=== PATIENT | female | born 1980 | race Hispanic/Latino ===

== ENCOUNTER 2018-01-14 09:06 | Emergency (ER) | payer OTHER ==
[2018-01-14] MEDS ORDERED: ACETAMINOPHEN 500 MG TAB ONE (10:26)
[2018-01-14] MEDS ORDERED: ONDANSETRON 4 MG (ODT) TAB ONE (10:26)
[2018-01-14 10:41] LABS: Urine Blood TRACE (NEG); Urine Glucose NEGATIVE (NEG); Urine Protein 1+ (NEG); Urine Specific Gravity 1.015 (1.005-1.030)
[2018-01-14 11:17] LABS: Urine Bacteria <20 /HPF (<20); Urine Culture Reflex Order REFLEXED
--- NOTE | 2018-01-14 11:20 | ER ---
Nurse's Notes [facility] Name: Aimee Randolph Age: 37 yrs Sex: Female : 1980 Arrival Date: 01/14/2018 Time: 09:08 Bed 14 Private MD: Diagnosis: Urinary tract infection, site not specified Presentation: 01/14 09:25 Presenting complaint: Patient states: fever, chills and body aches that began ss yesterday. Transition of care: patient was not received from another setting of care. Onset of symptoms was January 13, 2018. Care prior to arrival: None. 09:25 Method Of Arrival: Ambulatory ss 09:25 Acuity: LAURITA 4 ss Triage Assessment: 11:26 Pain: Also complains of. la1 Historical: - Allergies: : Ceclor; ss - Home Meds: : control [Active]; ss - PSHx: : (2013); Cholecystectomy(2011); Heart Surgery(1986); ss - Immunization history:: Adult Immunizations up to date. - Social history:: Smoking status: Patient/guardian denies using tobacco. Screenin:47 Abuse screen: Denies threats or abuse. Nutritional screening: No deficits noted. la1 Tuberculosis screening: No symptoms or risk factors identified. Fall Risk None identified. Assessment: 09:47 General: Appears uncomfortable, Behavior is calm, cooperative. Pain: Complains of pain la1 in forehead. Neuro: Level of Consciousness is awake, alert, obeys commands, Oriented to person, place, time, situation. Cardiovascular: Capillary refill < 3 seconds Patient's skin is warm and dry. Respiratory: Airway is patent Respiratory effort is even, unlabored, Respiratory pattern is regular, symmetrical. GI: No signs and/or symptoms were reported involving the gastrointestinal system. : No signs and/or symptoms were reported regarding the genitourinary system. Musculoskeletal: Reports body aches. 11:14 Reassessment: Patient appears in no apparent distress at this time. No changes from la1 previously documented assessment. Patient and/or family updated on plan of care and expected duration. Pain level reassessed. Vital Signs: : BP 122 / 85; Pulse 105; Resp 16; Temp 99.1(TE); Pulse Ox 97% on R/A; Weight 88.45 kg; ss Height 5 ft. 0 in. (152.40 cm); Pain 9/10; 11:26 BP 124 / 75; Pulse 91; Resp 16; Temp 98.4(TE); Pulse Ox 100% on R/A; la1 09:26 Body Mass Index 38.08 (88.45 kg, 152.40 cm) ED Course: 09:08 Patient arrived in ED. tw3 09:26 Triage completed. ss 09:26 Arm band placed on right wrist. ss 09:46 Panchito Winston RN is Primary Nurse. la1 09:47 Call light in reach. la1 10:11 Timoteo Pepper PA is PHCP. cp 10:11 Zhang Pollard MD is Attending Physician. cp 11:26 No provider procedures requiring assistance completed. Patient did not have IV access la1 during this emergency room visit. Administered Medications: 10:28 Drug: Tylenol 1000 mg Route: PO; la1 10:43 Follow up: Response: No adverse reaction la1 10:28 Drug: Zofran 4 mg Route: PO; la1 10:43 Follow up: Response: No adverse reaction la1 Outcome: 11:20 Discharge ordered by MD. cp 11:27 Discharged to home ambulatory. la1 11:27 Condition: stable 11:27 Discharge instructions given to patient, Instructed on discharge instructions, follow up and referral plans. Demonstrated understanding of instructions, follow-up care, medications, Prescriptions given X 2. 11:27 Patient left the ED. la1 Signatures: Leeanna Sullivan RN RN Panchito Winston RN RN la1 Timoteo Pepper PA PA cp Wade, Tia tw3
--- NOTE | 2018-01-14 11:20 | EDPHYS ---
Physician Documentation [facility] Name: Aimee Randolph Age: 37 yrs Sex: Female : 1980 Arrival Date: 01/14/2018 Time: 09:08 Bed 14 Private MD: ED Physician Zhang Pollard HPI: 01/14 10:19 This 37 yrs old Female presents to ER via Ambulatory with complaints of Fever, cp Headache. 10:19 The patient reports fever, that was measured at 101 degrees Fahrenheit. Onset: The cp symptoms/episode began/occurred yesterday. Associated signs and symptoms: Pertinent positives: backache, chills, headache, nausea, vomiting, body aches. Severity of symptoms: in the emergency department the symptoms are unchanged despite home interventions. Historical: - Allergies: 09: Ceclor; ss - Home Meds: 09: control [Active]; ss - PSHx: 09:26 (2013); Cholecystectomy(2011); Heart Surgery(1986); ss - Immunization history:: Adult Immunizations up to date. - Social history:: Smoking status: Patient/guardian denies using tobacco. ROS: 10:26 Eyes: Negative for injury, pain, redness, and discharge. cp 10:26 Constitutional: Positive for body aches, chills, Negative for fever, poor PO intake. 10:26 ENT: Negative for drainage from ear(s), ear pain, sore throat, difficulty swallowing, difficulty handling secretions. 10:26 Neck: Negative for pain with movement, pain at rest, stiffness, swollen nodes. 10:26 Cardiovascular: Negative for chest pain, edema, palpitations. 10:26 Respiratory: Negative for cough, shortness of breath, wheezing. 10:26 Abdomen/GI: Positive for nausea and vomiting, Negative for abdominal pain, diarrhea, constipation, anorexia. 10:26 Back: Positive for flank pain, bilaterally. 10:26 : Positive for urinary frequency, Negative for vaginal bleeding, vaginal discharge. 10:26 Skin: Negative for cellulitis, rash. 10:26 Neuro: Positive for headache, Negative for altered mental status, dizziness, weakness. 10:26 All other systems are negative. Exam: 10:30 Constitutional: The patient appears in no acute distress, alert, awake, non-toxic, well cp developed, well nourished, uncomfortable. 10:30 Head/Face: Normocephalic, atraumatic. cp 10:30 Eyes: Periorbital structures: appear normal, Pupils: equal, round, and reactive to light and accomodation, Extraocular movements: intact throughout, Conjunctiva: normal, no exudate, no injection, Sclera: no appreciated abnormality, Lids and lashes: appear normal, bilaterally. 10:30 ENT: External ear(s): are unremarkable, Ear canal(s): are normal, clear, TM's: dullness, bilaterally, Nose: is normal, Mouth: Lips: moist, Oral mucosa: pink and intact, moist, Posterior pharynx: is normal, airway is patent, no erythema, no exudate, Voice: is normal. 10:30 Neck: External neck: is normal, ROM/movement: is normal, is supple, without pain, no range of motions limitations, no meningismus, no nuchal rigidity, Lymph nodes: no appreciated lymphadenopathy. 10:30 Chest/axilla: Inspection: normal, Palpation: is normal, no crepitus, no tenderness. 10:30 Cardiovascular: Rate: tachycardic, Rhythm: regular. 10:30 Respiratory: the patient does not display signs of respiratory distress, Respirations: normal, no use of accessory muscles, no retractions, no splinting, no tachypnea, labored breathing, is not present, Breath sounds: are clear throughout, no decreased breath sounds, no stridor, no wheezing. 10:30 Abdomen/GI: Inspection: abdomen appears normal, Bowel sounds: active, all quadrants, Palpation: abdomen is soft and non-tender, in all quadrants, rebound tenderness, is not appreciated, voluntary guarding, is not appreciated, involuntary guarding, is not appreciated. 10:30 Back: CVA tenderness, that is mild, is noted bilaterally. 10:30 Skin: cellulitis, is not appreciated, no rash present. 10:30 Neuro: Orientation: to person, place \T\ time. Mentation: is normal, Motor: moves all fours, strength is normal, Sensation: no obvious gross deficits. Vital Signs: 09:26 BP 122 / 85; Pulse 105; Resp 16; Temp 99.1(TE); Pulse Ox 97% on R/A; Weight 88.45 kg; ss Height 5 ft. 0 in. (152.40 cm); Pain 9/10; 11:26 BP 124 / 75; Pulse 91; Resp 16; Temp 98.4(TE); Pulse Ox 100% on R/A; la1 09:26 Body Mass Index 38.08 (88.45 kg, 152.40 cm) MDM: 10:12 Patient medically screened. cp 10:30 Differential diagnosis: URI, bronchitis, pneumonia UTI, gastroenteritis, meningitis, cp influenza. 11:19 Data reviewed: vital signs, nurses notes, lab test result(s), and as a result, I will cp discharge patient. 11:19 Counseling: I had a detailed discussion with the patient and/or guardian regarding: the cp historical points, exam findings, and any diagnostic results supporting the discharge/admit diagnosis, lab results, the need for outpatient follow up, a family practitioner, to return to the emergency department if symptoms worsen or persist or if there are any questions or concerns that arise at home. 11:19 Response to treatment: the patient's symptoms have mildly improved after treatment, and cp as a result, I will discharge patient. 01/14 09:46 Order name: Flu; Complete Time: 10:46 la1 01/14 10:25 Order name: Urine Microscopic Only; Complete Time: 11:19 ss 01/14 11:19 Interpretation: Normal except: UWBC >50; URBC 5-10. cp 01/14 10:38 Order name: Urine Dipstick--Ancillary (enter results); Complete Time: 10:46 ag 01/14 10:46 Interpretation: Normal except: UBLD TRACE; UPROT 1+; UESTR 1+. cp 01/14 10:38 Order name: Urine --Ancillary (enter results); Complete Time: 10:46 ag 01/14 10:46 Interpretation: Reviewed. cp 01/14 11:18 Order name: Urine Culture EDMS 01/14 10:12 Order name: Urine Dipstick-Ancillary (obtain specimen); Complete Time: 10:30 cp 01/14 10:12 Order name: Urine Test (obtain specimen); Complete Time: 10:30 cp 01/14 10:18 Order name: PO challenge; Complete Time: 10:28 cp Administered Medications: 10:28 Drug: Tylenol 1000 mg Route: PO; la1 10:43 Follow up: Response: No adverse reaction la1 10:28 Drug: Zofran 4 mg Route: PO; la1 10:43 Follow up: Response: No adverse reaction la1 Disposition: 13:56 Co-signature as Attending Physician, Zhang Pollard MD I agree with the assessment and kdr plan of care. Disposition: 01/14/18 11:20 Discharged to Home. Impression: Urinary tract infection, site not specified. - Condition is Stable. - Discharge Instructions: Urinary Tract Infection. - Prescriptions for Zofran ODT 4 mg Oral tablet,disintegrating - take 1 tablet by ORAL route every 8-12 hours; 10 tablet. Bactrim DS 800- 160 mg Oral Tablet - take 1 tablet by ORAL route every 12 hours for 7 days; 14 tablet. - Medication Reconciliation Form, Thank You Letter, Antibiotic Education, Prescription Opioid Use form. - Follow up: Private Physician; When: 1 - 2 days; Reason: Recheck today's complaints. - Problem is new. - Symptoms have improved. Signatures: Dispatcher [employer] EDOK Zhang Pollard MD MD [facility] Leeanna Sullivan RN RN Panchito Winston RN RN la1 Timoteo Pepper PA PA cp
[2018-01-14 11:33] VITALS: BP 124/75; TEMP 98.4; O2SAT 100
== END 2018-01-14 11:27 | disposition home or self-care (01) ==
LOC: ER 09:06
DX: R50.9 Fever, unspecified (principal); N39.0 Urinary tract infection, site not specified; Z88.1 Allergy status to other antibiotic agents
CPT/HCPCS: 81003; 81015; 81025; 87077; 87086; 87088; 87186; 87804; 99283

== ENCOUNTER 2018-01-14 17:47 | Inpatient (IN) | payer OTHER ==
[2018-01-14] MEDS ORDERED: ONDANSETRON 4 MG/2 ML VIAL ONE (18:07)
[2018-01-14] MEDS ORDERED: ACETAMINOPHEN 500 MG TAB ONE (18:07)
[2018-01-14] MEDS ORDERED: MORPHINE 10 MG/ML VIAL ONE ×2 (18:07→20:19)
[2018-01-14] MEDS ORDERED: NA CHLORIDE 0.9% 1,000 ML ONE (18:07)
[2018-01-14 18:18] LABS: Absolute Lymphocytes (CBC) 0.4 K/uL (0.7-4.9); Absolute Monocytes 0.2 K/uL (0.1-1.3); Basophils % 0.2 % (0-1.3); Eosinophils % 0.5 % (0-4.4); Hematocrit 38.4 % (36.0-45.0); Lymphocytes % 3.6 % (15.3-44.8); MCH 28.9 pg (27.0-35.0); MCV 84.8 fL (80-100); MPV 7.7 fL (7.6-11.3); Monocytes % 1.5 % (3.3-12.3); RBC Red Blood Cell Count 4.53 M/uL (3.86-4.86)
[2018-01-14 18:25] LABS: Potassium 3.6 mEq/L (3.6-5.0)
[2018-01-14 18:31] LABS: Bilirubin Direct 0.2 mg/dL (0-0.2); Protein, Total 7.2 g/dL (6.0-8.3)
--- NOTE | 2018-01-14 18:34 | RAD REPORT ---
EXAM DESCRIPTION: CT - Stone Protocol - 01/14/2018 6:24 pm CLINICAL HISTORY: Abdominal pain, pelvic pain, urinary tract infection, right lower quadrant and fla nk pain COMPARISON: CT study November 2008 TECHNIQUE: Axial 5 mm thick images were obtained without oral or IV contrast. The [id number] span s the entirety of the system partially obscuring uppermost abdomen and lung bases. All CT scans are performed using dose optimization technique as appropriate and may include automated exposure control or mA/KV adjustment according to patient size. FINDINGS: No hydronephrosis. No obstructing or nonobstructing calculi. There is a subtle edema appea mariposa to the right kidney with trace stranding in the perinephric fat. Given the patient's symptoms, finding is concerning for pyelonephritis. Pyelonephritis is not fully assessed on noncontrast imaging . No suspicious renal mass. Isodense masses are not excluded on stone protocol study. Mostly contract ed urinary bladder shows no suspicious finding. No new uterine finding. Ovaries are prominent but unc hanged back to 2008. Imaged portions of the liver, spleen and pancreas show no suspicious findings on non-contrast imaging . Cholecystectomy clips are present. No biliary tree dilatation. No significant adrenal finding. No suspicious bowel findings. The appendix is identified and normal. No hernia, mass or bulky lymphadenopathy noted. No free air, free fluid or inflammatory stranding. No significant bony abnormality. IMPRESSION: Right renal parenchymal edema and trace perinephric stranding suspicious for pyelonephri tis. Pyelonephritis assessment is limited in the absence of contrast. No hydronephrosis or obstructing calculus. No other significant or suspicious finding noted. Full findings are detailed in the body of the repor t.
[2018-01-14 19:00] LABS: Blood Morphology Comment NOT SEEN (NOT SEEN); Platelet Estimate ADEQ; Urine White Blood Cell Casts OK
[2018-01-14] MEDS ORDERED: CIPROFLOXACIN 400mg IV 400 MG/200 ML BAG IV ONE (19:03)
--- NOTE | 2018-01-14 20:26 | EDPHYS ---
Physician Documentation [facility] Name: Aimee Randolph Age: 37 yrs Sex: Female : 1980 Arrival Date: 01/14/2018 Time: 17:50 Bed 15 Private MD: ED Physician Zhang Pollard HPI: 01/14 18:08 This 37 yrs old Female presents to ER via EMS with complaints of Flank Pain. cp Historical: - Allergies: 17:53 Ceclor; la1 - PMHx: 17:53 None; la1 - Immunization history:: Adult Immunizations up to date. - Social history:: Smoking status: Patient/guardian denies using tobacco. ROS: 18:15 Constitutional: Positive for body aches, chills, fever. cp 18:15 Eyes: Negative for injury, pain, redness, and discharge. cp 18:15 ENT: Negative for drainage from ear(s), ear pain, sore throat, difficulty swallowing, difficulty handling secretions. 18:15 Neck: Negative for pain with movement, pain at rest, stiffness, swollen nodes. 18:15 Cardiovascular: Negative for chest pain, edema. 18:15 Respiratory: Negative for cough, shortness of breath, wheezing. 18:15 Abdomen/GI: Positive for abdominal pain, nausea and vomiting, Negative for diarrhea, constipation, black/tarry stool, rectal bleeding. 18:15 Back: Positive for flank pain, bilaterally. 18:15 : Positive for urinary frequency. 18:15 Skin: Negative for cellulitis, rash. 18:15 Neuro: Negative for altered mental status, weakness. 18:15 All other systems are negative. Exam: 18:25 Constitutional: The patient appears alert, awake, non-diaphoretic, well developed, well cp nourished, uncomfortable, appears ill 18:25 Head/Face: Normocephalic, atraumatic. cp 18:25 Eyes: Periorbital structures: appear normal, Pupils: equal, round, and reactive to light and accomodation, Extraocular movements: intact throughout, Conjunctiva: normal, no exudate, no injection, Sclera: no appreciated abnormality, Lids and lashes: appear normal, bilaterally. 18:25 ENT: External ear(s): are unremarkable, Ear canal(s): are normal, clear, TM's: bulging, is not appreciated, bilaterally, dullness, bilaterally, erythema, is not appreciated, bilaterally, Nose: is normal, Mouth: Lips: moist, Oral mucosa: moist, Posterior pharynx: is normal, airway is patent, no erythema, no exudate. 18:25 Neck: ROM/movement: is normal, is supple, no range of motions limitations, no meningismus, no nuchal rigidity. 18:25 Chest/axilla: Inspection: normal, Palpation: is normal, no crepitus, no tenderness. 18:25 Cardiovascular: Rate: tachycardic, Rhythm: regular, Edema: is not appreciated. 18:25 Respiratory: the patient does not display signs of respiratory distress, Respirations: normal, no use of accessory muscles, no retractions, no splinting, no tachypnea, labored breathing, is not present, Breath sounds: are clear throughout, no decreased breath sounds, no stridor, no wheezing. 18:25 Abdomen/GI: Inspection: abdomen appears normal, Bowel sounds: active, all quadrants, Palpation: soft, in all quadrants, moderate abdominal tenderness, in all quadrants. 18:25 Back: CVA tenderness, that is severe, is noted on the right. 18:25 Skin: cellulitis, is not appreciated, no rash present. 18:25 Neuro: Orientation: to person, place \T\ time. Mentation: lucid, able to follow commands, Cerebellar function: is grossly normal, Motor: moves all fours, strength is normal, Sensation: no obvious gross deficits. Vital Signs: 17:51 BP 139 / 78; Pulse 123; Resp 19; Temp 101.8(TE); Pulse Ox 100% on R/A; Weight 88.45 kg; la1 Height 5 ft. 0 in. (152.40 cm); 18:41 BP 118 / 59; Pulse 106; Resp 19; Pulse Ox 100% on R/A; la1 19:05 Temp 100(TE); la1 20:36 BP 104 / 48; Pulse 80; Resp 16; Temp 98.9; Pulse Ox 98% ; Pain 3/10; ag2 21:00 BP 104 / 48; Pulse 80; Resp 16; Pulse Ox 6% ; ag2 21:01 Temp 98.9; ag2 21:11 BP 119 / 61; Pulse 85; Resp 18 S; Pulse Ox 99% on R/A; ea 17:51 Body Mass Index 38.08 (88.45 kg, 152.40 cm) la1 MDM: 17:51 Patient medically screened. cp 20:05 Data reviewed: vital signs, nurses notes, lab test result(s), radiologic studies, CT cp scan. 20:09 Physician consultation: Davonte Walker MD was contacted at 20:10, regarding admission, cp to the medical/surgical unit. patient's condition, and will see patient in ED, shortly. 01/14 17:55 Order name: Amylase, Serum; Complete Time: 18:44 cp 01/14 17:55 Order name: Basic Metabolic Panel; Complete Time: 18:44 cp 01/14 17:55 Order name: CBC with Diff; Complete Time: 19:58 cp 01/14 18:45 Interpretation: Normal except: HELGA% 94.2; LYM% 3.6; MN% 1.5; NEUT A 10.0; LYMA 0.4. cp 01/14 17:55 Order name: Creatinine for Radiology; Complete Time: 18:44 cp 01/14 17:55 Order name: Hepatic Function; Complete Time: 18:44 cp 01/14 17:55 Order name: Lipase; Complete Time: 18:44 cp 01/14 17:55 Order name: Urine Microscopic Only; Complete Time: 21:51 cp 01/14 21:52 Interpretation: Normal except: UWBC 20-50; GLIT PRESENT; TRICH PRESENT. cp 01/14 18:05 Order name: Lactate; Complete Time: 18:47 cp 01/14 18:47 Interpretation: LAC 11.2; Reviewed. cp 01/14 18:05 Order name: Procalcitonin; Complete Time: 21:51 cp 01/14 21:52 Interpretation: Abnormal: Procalcitonin 2.06. cp 01/14 18:05 Order name: Blood Culture Adult (2) cp 01/14 18:05 Order name: Magnesium; Complete Time: 19:58 cp 01/14 18:26 Order name: CBC Smear Scan; Complete Time: 19:58 EDMS 01/14 20:46 Order name: Urine Dipstick--Ancillary (enter results); Complete Time: 21:51 rg2 01/14 21:52 Interpretation: Normal except: UBLD 2+; UESTR 1+. cp 01/14 20:46 Order name: Urine --Ancillary (enter results); Complete Time: 21:51 rg2 01/14 17:55 Order name: IV Saline Lock; Complete Time: 18:16 cp 01/14 17:55 Order name: Labs collected and sent; Complete Time: 18:16 cp 01/14 18:05 Order name: CT Stone Protocol; Complete Time: 18:44 cp Administered Medications: 18:15 Drug: morphine 4 mg Route: IVP; Site: left antecubital; la1 21:54 Follow up: Response: No adverse reaction; Pain is decreased ea 18:16 Drug: NS 0.9% (30 ml/kg) 30 ml/kg Route: IV; Rate: bolus; Site: left antecubital; la1 21:55 Follow up: Response: No adverse reaction; IV Status: Completed infusion ea 18:16 Drug: Zofran 4 mg Route: IVP; Site: right antecubital; la1 21:55 Follow up: Response: No adverse reaction; Marked relief of symptoms ea 18:16 Drug: Tylenol 1000 mg Route: PO; la1 21:01 Follow up: Temp 98.9 ag2 19:09 Drug: Ciprofloxacin 400 mg Volume: 200 ml; Route: IVPB; Infused Over: 60 mins; Site: la1 left antecubital; 21:55 Follow up: Response: No adverse reaction; IV Status: Completed infusion; IV Intake: ea 200ml 20:31 Drug: morphine 4 mg Route: IVP; Site: left antecubital; ag2 21:00 Follow up: BP 104 / 48; Pulse 80 bpm; Resp 16 bpm; Pulse Ox 6% ag2 Disposition: 23:30 Co-signature as Attending Physician, Zhang Pollard MD I agree with the assessment and kdr plan of care. Disposition: 01/14/18 20:25 Hospitalization ordered by Davonte Walker for Inpatient Admission. Preliminary diagnosis are Other sepsis, Cystitis, unspecified. - Bed requested for Telemetry/MedSurg (Inpatient). - Status is Inpatient Admission. ea - Condition is Stable. - Problem is new. - Symptoms have improved. UTI on Admission? Yes Signatures: Dispatcher [employer] EDMS Zhang Pollard MD MD kdr Roszak, Josh, PA PA jr8 Panchito Winston RN RN la1 Timoteo Pepper PA PA cp Marilu Askew, RN RN Mercedes Olivas ag2 Corrections: (The following items were deleted from the chart) 18:45 18:44 Normal except: HELGA% 94.2; LYM% 3.6; MN% 1.5; NEUT A 10.0. cp cp
--- NOTE | 2018-01-14 20:26 | ER ---
Nurse's Notes [facility] Name: Aimee Randolph Age: 37 yrs Sex: Female : 1980 Arrival Date: 01/14/2018 Time: 17:50 Bed 15 Private MD: Diagnosis: Other sepsis;Cystitis, unspecified Presentation: 01/14 17:50 Presenting complaint: Patient states: Seen here this morning, dx with UTI, now having la1 pain in right lower back, fever, and pain radiating to lower abd. Transition of care: patient was not received from another setting of care. Onset of symptoms was January 14, 2018. Care prior to arrival: None. 17:50 Method Of Arrival: EMS: [facility] la1 17:50 Acuity: LAURITA 3 la1 Historical: - Allergies: 17:53 Ceclor; la1 - PMHx: 17:53 None; la1 - Immunization history:: Adult Immunizations up to date. - Social history:: Smoking status: Patient/guardian denies using tobacco. Screenin:41 Abuse screen: Denies threats or abuse. Nutritional screening: No deficits noted. la1 Tuberculosis screening: No symptoms or risk factors identified. Fall Risk None identified. Assessment: 18:39 General: Appears uncomfortable, ill, Behavior is cooperative. Pain: Complains of pain la1 in posterior aspect of right lateral abdomen and anterior aspect of right lateral abdomen Pain currently is 8 out of 10 on a pain scale. Quality of pain is described as sharp. Neuro: Level of Consciousness is awake, alert, obeys commands, Oriented to person, place, time, situation. Cardiovascular: Capillary refill < 3 seconds Patient's skin is warm and dry. Respiratory: Airway is patent Respiratory effort is even, unlabored, Respiratory pattern is regular, symmetrical, Breath sounds are clear bilaterally. GI: Abdomen is round non-distended, Bowel sounds present X 4 quads. Abd is soft X 4 quads Abdomen is tender to palpation in right upper quadrant and right lower quadrant Reports nausea, Patient currently denies diarrhea, vomiting. : No signs and/or symptoms were reported regarding the genitourinary system. 19:33 General: Appears uncomfortable, Behavior is cooperative, flat. Pain: Complains of pain ag2 in Right upper and lower abdominal quadrants. Anterior and posterior abdomin. Pain currently is 7 out of 10 on a pain scale. Quality of pain is described as aching, sharp. Neuro: Level of Consciousness is awake, alert, obeys commands, Oriented to person, place, time, situation. Cardiovascular: Heart tones S1 S2 present Capillary refill < 3 seconds Patient's skin is warm and dry. Respiratory: Airway Respiratory effort is even, unlabored, Respiratory pattern is regular, symmetrical, diminished breath sounds bilateral lower lung lobes Breath sounds are diminished bilaterally. in left lower lobe, right lower lobe, left posterior lower lobe and right posterior lower lobe. : No signs and/or symptoms were reported regarding the genitourinary system. 20:29 Reassessment: Patient stated that her pain is going up. 06/11. Orders received morphine. ag2 medication given timely. Patient A\T\OX4. Mother at bedside. bed low and locked. call light within reach. . 20:41 Reassessment: Patient is laying in bed with eyes closed. breathing even and unlabored. ag2 call light within reach. family at bedside. . 20:58 Reassessment: Dr. Apodaca visiting with patient and family. Patient stated she is ag2 nauseous. PO challenge okay to hold per doctor Apodaca. . 21:22 Reassessment:. ag2 21:42 Reassessment: Report given to Consuelo CELESTE on fourth floor. ea Vital Signs: 17:51 BP 139 / 78; Pulse 123; Resp 19; Temp 101.8(TE); Pulse Ox 100% on R/A; Weight 88.45 kg; la1 Height 5 ft. 0 in. (152.40 cm); 18:41 BP 118 / 59; Pulse 106; Resp 19; Pulse Ox 100% on R/A; la1 19:05 Temp 100(TE); la1 20:36 BP 104 / 48; Pulse 80; Resp 16; Temp 98.9; Pulse Ox 98% ; Pain 3/10; ag2 21:00 BP 104 / 48; Pulse 80; Resp 16; Pulse Ox 6% ; ag2 21:01 Temp 98.9; ag2 21:11 BP 119 / 61; Pulse 85; Resp 18 S; Pulse Ox 99% on R/A; ea 17:51 Body Mass Index 38.08 (88.45 kg, 152.40 cm) la1 ED Course: 17:50 Patient arrived in ED. la1 17:50 Timoteo Pepper PA is PHCP. cp 17:50 Zhang Pollard MD is Attending Physician. cp 17:51 Triage completed. la1 17:52 Arm band placed on left wrist. la1 18:15 Panchito Winston, RN is Primary Nurse. la1 18:17 No provider procedures requiring assistance completed. Inserted saline lock: 20 gauge la1 in left antecubital area, using aseptic technique. Blood collected. 18:24 CT Stone Protocol In Process Unspecified. EDMS 18:40 Call light in reach. Side rails up X 1. Pulse ox on. NIBP on. la1 20:23 Davonte Walker MD is Hospitalizing Provider. cp 21:57 Patient admitted, IV remains in place. ea Administered Medications: 18:15 Drug: morphine 4 mg Route: IVP; Site: left antecubital; la1 21:54 Follow up: Response: No adverse reaction; Pain is decreased ea 18:16 Drug: NS 0.9% (30 ml/kg) 30 ml/kg Route: IV; Rate: bolus; Site: left antecubital; la1 21:55 Follow up: Response: No adverse reaction; IV Status: Completed infusion ea 18:16 Drug: Zofran 4 mg Route: IVP; Site: right antecubital; la1 21:55 Follow up: Response: No adverse reaction; Marked relief of symptoms ea 18:16 Drug: Tylenol 1000 mg Route: PO; la1 21:01 Follow up: Temp 98.9 ag2 19:09 Drug: Ciprofloxacin 400 mg Volume: 200 ml; Route: IVPB; Infused Over: 60 mins; Site: la1 left antecubital; 21:55 Follow up: Response: No adverse reaction; IV Status: Completed infusion; IV Intake: ea 200ml 20:31 Drug: morphine 4 mg Route: IVP; Site: left antecubital; ag2 21:00 Follow up: BP 104 / 48; Pulse 80 bpm; Resp 16 bpm; Pulse Ox 6% ag2 Intake: 21:55 IV: 200ml; Total: 200ml. ea Outcome: 20:25 Decision to Hospitalize by Provider. cp 21:56 Admitted to Med/surg accompanied by tech, room 426, with chart, Report called to Consuelo anand RN 21:56 Condition: stable 21:56 Instructed on the need for admit. 21:57 Patient left the ED. kika Signatures: Dispatcher [employer] EDMS Panchito Winston RN RN la1 Timoteo Pepper PA PA cp Antunez, Elena, RN RN ea Garcia, Athena ag2 Corrections: (The following items were deleted from the chart) 20:40 20:33 BP 168 / 87; Pulse 78bpm; Resp 20bpm; Pulse Ox 99%; Temp 98.7F; Pain 2/10; ag2 ag2 21:23 19:33 GI: Abdomen is round non-distended, Bowel sounds present X 4 quads. Abd is soft ag2 Abdomen is tender to palpation in posterior aspect of right lateral abdomen, anterior aspect of right lateral abdomen, right upper quadrant and right lower quadrant Reports Patient reports right sided abdominal pain. Patient currently denies diarrhea, vomiting, ag2
[2018-01-14 20:58] LABS: Urine Blood 2+ (NEG); Urine Glucose NEGATIVE (NEG); Urine Protein NEGATIVE (NEG)
[2018-01-14 21:02] LABS: Urine RBC <5 /HPF (NONE SEEN)
[2018-01-14 21:03] LABS: Urine Bacteria <20 /HPF (<20); Urine Trichomonas PRESENT (NONE SEEN)
[2018-01-14 21:09] LABS: Urine Culture Reflex Order NOT NEEDED
--- NOTE | 2018-01-14 21:09 | P.HP ---
Certification for Inpatient Patient admitted to: Inpatient With expected LOS: >2 Midnights Practitioner: I am a practitioner with admitting privileges, knowledge of patient current condition, hospital course, and medical plan of care. 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 Since yesterday she start with nausea, right flank pain and fever. This morning came to ED and was diagnosed with UTI, since her lab work was mostly unremarkable and she was hemodynamically stable was sent home with oral antibiotics. However, at home she had severe pain, had chills and fever 101.7F, and came again to ED for further evaluation. Lab work remarkable for normal WBC count, lactate normal, procalcitonin is still pending , UA abnormal, CT abdomen and pelvis consistent with right acute pyelonephritis , no hydronephrosis or obstructing calculus seen. Allergies cefaclor [From Ceclor] Allergy (Mild, Verified 04/08/14 05:03) Shortness of breath Home Medications: Ferrous Sulfate [Iron] 325 mg PO BID 02/07/16 Codeine/APAP [Tylenol W/Codeine #3 tab] 1 tab PO Q6HP PRN #30 tab 02/18/16 - Past Medical/Surgical History Diabetic: No -: valval deffect by -: Heart Surgery 1985 -: Ava 2006 -: - Family History Father -: Heart disease, Hypertension, Diabetes Mother -: Heart disease, Hypertension, Diabetes - Social History Smoking Status: Never smoker Alcohol use: No CD- Drugs: No Caffeine use: No Place of Residence: Home Review of Systems 10-point ROS is otherwise unremarkable Physical Examination - Physical Exam General: Alert, In no apparent distress HEENT: Atraumatic, PERRLA, Mucous membr. moist/pink, EOMI, Sclerae nonicteric Neck: Supple, 2+ carotid pulse no bruit, No LAD, Without JVD or thyroid abnormality Respiratory: Clear to auscultation bilaterally, Normal air movement Cardiovascular: Regular rate/rhythm, Normal S1 S2 Gastrointestinal: Normal bowel sounds, Tenderness (right flank) Musculoskeletal: No tenderness Integumentary: No rashes Neurological: Normal speech, Normal strength at 5/5 x4 extr, Normal tone, Normal affect Lymphatics: No axilla or inguinal lymphadenopathy - Studies Laboratory Data (last 24 hrs) 01/14/18 18:03: Magnesium 1.8 01/14/18 18:03: Creatinine 0.72 01/14/18 18:03: WBC 10.6, Hgb 13.1, Hct 38.4, Plt Count 166 01/14/18 18:03: Sodium 136, Potassium 3.6, BUN 12, Creatinine 0.75, Glucose 110 , Total Bilirubin 1.0, AST 14, ALT 13, Alkaline Phosphatase 61, Amylase 41, Lipase 22 Assessment and Plan - Problems (Diagnosis) (1) Acute pyelonephritis Current Visit: Yes Status: Acute - Plan Ms Randolph will be admitted to the hospital due to acute pyelonephritis, failed outpatient therapy. Will order IV Levaquin, urine and blood cultures in process. Order Toradol for pain. - Advance Directives Does patient have a Living Will: No Does patient have a Durable POA for Healthcare: No - Code Status/Comfort Care Code Status Assessed: Yes Code Status: Full Code
[2018-01-14] MEDS: NA CHLORIDE 0.9% 1,000 ML IV SCH (22:27)
[2018-01-14] MEDS: ONDANSETRON 4 MG/2 ML VIAL IV PRN (23:36)
[2018-01-15 04:51] LABS: Absolute Lymphocytes (CBC) 0.7 K/uL (0.7-4.9); Absolute Monocytes 0.8 K/uL (0.1-1.3); Absolute Neutrophil 7.2 K/uL (1.8-8.0); Basophils % 0.3 % (0-1.3); Eosinophils % 0.5 % (0-4.4); Hematocrit 35.3 % (36.0-45.0); Lymphocytes % 8.4 % (15.3-44.8); MCH 28.7 pg (27.0-35.0); MCV 87.1 fL (80-100); Monocytes % 8.7 % (3.3-12.3); RBC Red Blood Cell Count 4.05 M/uL (3.86-4.86)
[2018-01-15 05:35] LABS: BUN Blood Urea Nitrogen 9 mg/dL (6-20); Bicarbonate 23 mEq/L (21-31); Glucose Level 120 mg/dL (65-120); Potassium 4.5 mEq/L (3.6-5.0); Sodium Level 138 mEq/L (135-145)
[2018-01-15] MEDS: NA CHLORIDE 0.9% 1,000 ML IV SCH ×2 (05:40→17:01)
[2018-01-15] MEDS: ACETAMINOPHEN 500 MG TAB PO PRN ×3 (05:42→19:58)
[2018-01-15] MEDS: Levofloxacin500mg IV 500 MG/100 ML BAG IV SCH (08:04)
[2018-01-15] MEDS: ENOXAPARIN 40 MG/0.4 ML SQ SCH (08:04)
[2018-01-15] MEDS ORDERED: metroNIDAZOLE 500 MG TABLET PO ONE (09:00)
[2018-01-15] MEDS: ONDANSETRON 4 MG/2 ML VIAL IV PRN ×2 (09:41→17:01)
[2018-01-15] MEDS: KETOROLAC 30 MG/ML INJ IV PRN ×2 (09:41→17:02)
--- NOTE | 2018-01-15 12:02 | PN ---
Date of Progress Note: 01/15/2018 Subjective: The patient seen and examined, chart reviewed, and case discussed with RN. The patient states that, she is still having some discomfort and flank pain. Otherwise, feeling better. Review of Systems: Negative except as above. Medications: Reviewed. Physical Examination: Vital Signs: Temperature 97.4, heart rate 60, blood pressure 114/52, respirations 20, and O2 98% on room air. General: Awake, alert, oriented x3, obese female, in some mild distress. CV: S1, S2. Regular rate and rhythm. Peripheral pulses present. No murmurs. Respiratory: Clear to auscultation bilaterally. No wheezing. No stridor. Gastrointestinal: Abdomen is soft, nontender, nondistended. Positive bowel sounds. No guarding or rigidity. Back: Right flank pain. Extremities: No clubbing, cyanosis, edema. Neurologic: Nonfocal. Laboratory Data: Sodium 138, potassium 4.5, chloride 110, CO2 22, BUN 9, creatinine 0.63, glucose 120, calcium 7.9, and magnesium 2. WBC 8.8, H and H 11.6, 35.3, and platelets 140. Blood cultures pending. CT abdomen and pelvis shows right renal parenchymal edema and trace perinephric stranding, suspicious for pyelonephritis. No hydronephrosis or obstructing calculus. Assessment: A 37-year-old female with; 1. Acute pyelonephritis. We will continue with IV fluids and IV antibiotics. Follow up on urine and blood cultures. Pain control. 2. Trichomoniasis. The patient was informed of her diagnosis. She was informed that her sexual partner or partners need to be treated. We will give 2 g of Flagyl p.o. x1. 3. Obesity, body mass index 39. Counseled. 4. Gastrointestinal and deep venous thrombosis prophylaxis with PPI and Lovenox. 5. sepsis Plan: Follow up on culture results. /AMAN Voice ID: [id number] Report ID: [id number] JASMIN
[2018-01-16] MEDS: KETOROLAC 30 MG/ML INJ IV PRN ×3 (00:19→18:40)
[2018-01-16] MEDS: ONDANSETRON 4 MG/2 ML VIAL IV PRN ×2 (00:19→08:37)
[2018-01-16] MEDS: ACETAMINOPHEN 500 MG TAB PO PRN ×3 (00:23→21:11)
[2018-01-16] MEDS: NA CHLORIDE 0.9% 1,000 ML IV SCH ×3 (05:51→19:35)
[2018-01-16 06:10] LABS: Absolute Lymphocytes (CBC) 0.9 K/uL (0.7-4.9); Absolute Monocytes 0.7 K/uL (0.1-1.3); Absolute Neutrophil 4.5 K/uL (1.8-8.0); Basophils % 0.4 % (0-1.3); Eosinophils % 1.1 % (0-4.4); MCH 28.1 pg (27.0-35.0); MCV 86.4 fL (80-100); MPV 8.4 fL (7.6-11.3); Monocytes % 11.4 % (3.3-12.3); RBC Red Blood Cell Count 4.05 M/uL (3.86-4.86)
[2018-01-16 06:26] LABS: AST/SGOT 15 IU/L (10-42); BUN Blood Urea Nitrogen 7 mg/dL (6-20); Potassium 3.8 mEq/L (3.6-5.0)
[2018-01-16] MEDS: ENOXAPARIN 40 MG/0.4 ML SQ SCH (08:38)
[2018-01-16] MEDS: Levofloxacin500mg IV 500 MG/100 ML BAG IV SCH (08:38)
[2018-01-16] MEDS: NORETHINDRONE 0.35 MG PO SCH (08:39)
[2018-01-16] MEDS ORDERED: POTASSIUM CL SA 10 MEQ TAB PO ONE (09:00)
[2018-01-16] MEDS: DOCUSATE NA 100 MG CAP PO SCH ×2 (09:27→21:10)
[2018-01-16 10:10] VITALS: BMI 39.3
[2018-01-16 10:41] LABS: Bicarbonate 22 mEq/L (21-31); Sodium Level 139 mEq/L (135-145)
[2018-01-16 10:42] LABS: ALT/SGPT 17 IU/L (10-60); Alkaline Phosphatase 49 IU/L (42-121); Bilirubin Total 0.8 mg/dL (0.3-1.2); Glucose Level 102 mg/dL (65-120); Protein, Total 5.6 g/dL (6.0-8.3)
[2018-01-16 10:43] LABS: Albumin 3.1 g/dL (3.2-5.5)
--- NOTE | 2018-01-16 14:06 | PN ---
Date of Progress Note: 01/16/2018 Subjective: The patient seen and examined, chart reviewed, and case discussed with RN. The patient states she is feeling better; however, still having some pain. Also reports headache. Review of Systems: Negative except as above. Medications: Reviewed. Physical Examination: Vital Signs: T-max 100.5 yesterday evening, T current 98.6, heart rate 68, blood pressure 117/58, re spirations 18, O2 99% on room air. General: Awake, alert, oriented x3, in some mild distress, ill-appearing female, obese. CV: S1, S2. No murmurs. Regular rate and rhythm. Peripheral pulses are present bilaterally. Respiratory: Clear to auscultation bilaterally. No wheezing. No stridor. No use of accessory musc les. Gastrointestinal: Abdomen is soft. Mild tenderness to palpation at the flank. Nondistended. Posit alexander bowel sounds. No guarding or rigidity. Extremities: No clubbing, cyanosis, edema. Neurologic: Nonfocal. Laboratory Data: Sodium 139, potassium 3.8, chloride 112, CO2 22, BUN 7, creatinine 0.64, glucose 10 2, calcium 8.3. WBC 6.2, H and H 11.4 and 35, platelets 133, neutrophils 72.1%. Blood cultures, no growth to date. Urine culture showing no growth. Assessment And Plan: A 37-year-old female with: 1.Acute pyelonephritis. We will continue with IV fluids and IV antibiotics. Cultures negative to d ate. 2.Sepsis secondary to above, improving. The patient no longer tachycardic, improving. We will cont inue with IV fluids and antibiotics. Follow up on culture results. 3.Trichomoniasis, treated with Flagyl. The patient was informed that her sexual partners need to be treated. 4.Obesity, BMI 39. Counseled. 5.Gastrointestinal and deep venous thrombosis prophylaxis with PPI and Lovenox. Plan: Continue IV antibiotics and IV fluids. We will follow up on culture results. Likely discharg e in the next 24-48 hours. Ambulate. SA/MODL Voice ID: [id number] Report ID: [id number]
[2018-01-16] MEDS: LORATADINE/PSEUDO 12HR TAB PO SCH (18:39)
[2018-01-16] MEDS: FLUTICASONE 50MCG NASAL SPRAY NAS SCH (18:39)
[2018-01-17] MEDS: NA CHLORIDE 0.9% 1,000 ML IV SCH ×2 (02:15→10:03)
[2018-01-17 03:28] VITALS: O2SAT 100
[2018-01-17 04:56] LABS: Absolute Lymphocytes (CBC) 1.1 K/uL (0.7-4.9); Absolute Monocytes 0.8 K/uL (0.1-1.3); Absolute Neutrophil 5.6 K/uL (1.8-8.0); Basophils % 0.4 % (0-1.3); Eosinophils % 1.3 % (0-4.4); Hematocrit 34.6 % (36.0-45.0); Lymphocytes % 14.8 % (15.3-44.8); MCH 28.7 pg (27.0-35.0); MCV 85.6 fL (80-100); RBC Red Blood Cell Count 4.03 M/uL (3.86-4.86)
[2018-01-17 06:05] LABS: ALT/SGPT 16 IU/L (10-60); AST/SGOT 13 IU/L (10-42); Albumin 3.4 g/dL (3.2-5.5); Alkaline Phosphatase 53 IU/L (42-121); BUN Blood Urea Nitrogen 9 mg/dL (6-20); Bicarbonate 24 mEq/L (21-31); Bilirubin Total 0.5 mg/dL (0.3-1.2); Glucose Level 123 mg/dL (65-120); Potassium 3.8 mEq/L (3.6-5.0); Protein, Total 6.4 g/dL (6.0-8.3); Sodium Level 139 mEq/L (135-145)
[2018-01-17] MEDS: POTASSIUM 25 MEQ EFFERV TAB PO ONE ×2 (07:56→10:12)
[2018-01-17] MEDS: Levofloxacin500mg IV 500 MG/100 ML BAG IV SCH (10:10)
[2018-01-17] MEDS: ENOXAPARIN 40 MG/0.4 ML SQ SCH (10:10)
[2018-01-17] MEDS: LORATADINE/PSEUDO 12HR TAB PO SCH (10:10)
[2018-01-17] MEDS: FLUTICASONE 50MCG NASAL SPRAY NAS SCH (10:11)
[2018-01-17] MEDS: NORETHINDRONE 0.35 MG PO SCH (10:11)
[2018-01-17] MEDS: DOCUSATE NA 100 MG CAP PO SCH (10:12)
[2018-01-17] MEDS ORDERED: POTASSIUM CL SA 10 MEQ TAB PO ONE (10:42)
[2018-01-17 11:57] VITALS: BP 140/87; TEMP 98.1
--- NOTE | 2018-01-18 13:19 | DS ---
Date of Discharge: 01/17/2018 Admitting Diagnoses: 1.Sepsis. 2.Acute pyelonephritis. Discharge Diagnoses: 1.Sepsis, resolved. 2.Acute pyelonephritis, improved. Cultures negative. 3.Trichomoniasis, treated with Flagyl. 4.Obesity, BMI 39. Hospital Course: The patient is a 37-year-old female who came in with urinary tract symptoms, was no t given any antibiotics during an outpatient visit. The patient came in with fever, chills, and temp erature up to 101.7. Upon arrival, her white count was normal, but she had a left shift. Her UA was abnormal. Her CAT scan showed pyelonephritis. The patient was found to be septic. She was tachyca rdic and had fever and source of infection was urinary tract. The patient was then started on IV ant ibiotics. The patient was also given IV fluids. The patient improved with treatment. Her white cou nt remained stable. Her blood cultures remained negative to date. Her urine culture showed less fei n 10,000 colony-forming units of no growth. The patient's tachycardia resolved. Her blood pressure was more stable. Her sepsis resolved. The patient was then stable for discharge and she was dis[facility] home on antibiotics by mouth. Medications: As per medication reconciliation list. Followup: Follow up with primary care physician in 2-3 days. Return to ER for worsening condition. Diet: Low-sodium, calorie restricted diet. Activity: As tolerated. The patient was informed to have her sexual partners treated for trichomoni asis, otherwise she will have recurrence of trichomoniasis. Total time spent discharging patient was 37 minutes. Physical Examination: General: Awake, alert, oriented, no acute distress. CV: S1, S2. No murmurs. Regular rate and rhythm. Peripheral pulses present. Respiratory: Moving air well bilaterally. Abdomen: Soft, nontender, nondistended. Positive bowel sounds. Extremities: No clubbing, cyanosis, edema. Neurologic: Nonfocal. SA/MODL Voice ID: [id number] Report ID: [id number]
== END 2018-01-17 12:37 | disposition home or self-care (01) | DRG 872 ==
LOC: ER 17:47 → ERHOLD 20:42 → 4TH 21:22
PROVIDERS: ADMIT Internal Medicine; ATTEND Internal Medicine
DX: A41.9 Sepsis, unspecified organism (principal); N10 Acute pyelonephritis; A59.9 Trichomoniasis, unspecified; E66.9 Obesity, unspecified; Z68.39 Body mass index [BMI] 39.0-39.9, adult
CPT/HCPCS: 36415; 74176; 76377; 80048; 80053; 80076; 81003; 81015; 81025; 82150; 83605; 83690; 83735; 84145; 85025; 87040; 87086; 87088; 99285; J0744; J1650; J2405; J7030

== ENCOUNTER 2018-06-16 12:52 | Emergency (ER) | payer OTHER ==
--- OUTSIDE RECORDS SUMMARY | 2018-06-16 12:54 | XMS REPORT ---
:1980 Author Organization [employer] Care Team Providers Name Role Phone Brittnee Holcomb Provider Role Unavailable Allergies, Adverse Reactions, Alerts Substance Reaction Event Type Levofloxacin Headaches (severe) Drug Allergy Problems Problem Type Condition Code Onset Dates Condition Status Problem Right-sided low back pain with M54.41 Active right-sided sciatica, unspecified chronicity Problem Environmental allergies Z91.09 Active Problem Numbness in right leg R20.0 Active Problem Other chronic pain G89.29 Active Problem Lumbago with sciatica M54.40 Active Problem Acute pyelonephritis N10 Active Problem Sepsis, due to unspecified organism A41.9 Active Problem Lumbago with sciatica, right side M54.41 Active Problem Trichomonas infection A59.9 Active Assessment Right-sided low back pain with M54.41 Active right-sided sciatica, unspecified chronicity Assessment Respiratory symptoms R09.89 Active Assessment Acute pharyngitis, unspecified J02.9 Active etiology Assessment Numbness in right leg R20.0 Active Assessment URI, acute J06.9 Active Medications Medication Code Code Instructions Start End Status Dosage System Date Date Tramadol HCl [facility] 72689941255 50 MG Orally March Active 1 tablet Once daily in , as needed evening 2017 2017 for severe pain Norethindrone [facility] [address]-09 Active not defined PredniSONE [facility] 55166873051 20 MG Orally Active 1 tablet BID Azithromycin [facility] 45421095548 250 MG Orally Active 2 tablets Once a day on the first day, then 1 tablet daily for 4 days Cyclobenzaprine [facility] 07514235396 5 MG Orally March Active 1 tablet HCl Once daily in , as needed evening 2017 2017 for muscle cramps/danyelle n ProAir HFA [facility] [id number] 108 (90 Base) April Active 2 puffs as MCG/ACT 17, needed for Inhalation 2017 sob/wheezi every 4-6 hrs ng Diflucan [facility] 73793296976 150 MG Orally April Active as 1 tablet now; 17, 19, then repeat 2017 2017 after completing abx. Clarithromycin [facility] 07347974607 500 MG Orally April Active 1 tablet every 12 hrs 2017 Results Name Result Date Reference Range Unit Abnormality Flag STREP A RAPID ----Result Negative [id number] Summary Purpose [employer] Submission
--- OUTSIDE RECORDS SUMMARY | 2018-06-16 12:54 | XMS REPORT ---
:1980 Author Organization [employer] Care Team Providers Name Role Phone Brittnee Holcomb Provider Role Unavailable Allergies No Known Allergies Problems Problem Type Condition Code Onset Dates Condition Status Problem Right-sided low back pain with M54.41 Active right-sided sciatica, unspecified chronicity Problem Environmental allergies Z91.09 Active Assessment Lumbago with sciatica, right side M54.41 Active Assessment Lumbago with sciatica M54.40 Active Problem Numbness in right leg R20.0 Active Problem Other chronic pain G89.29 Active Problem Lumbago with sciatica M54.40 Active Problem Acute pyelonephritis N10 Active Problem Sepsis, due to unspecified organism A41.9 Active Problem Lumbago with sciatica, right side M54.41 Active Problem Trichomonas infection A59.9 Active Medications No Known Medications Results No Known Results Summary Purpose [employer] Submission
--- OUTSIDE RECORDS SUMMARY | 2018-06-16 12:54 | XMS REPORT ---
:1980 Author Organization [employer] Care Team Providers Name Role Phone Brittnee Holcomb Provider Role Unavailable Allergies, Adverse Reactions, Alerts Substance Reaction Event Type ceclor Info Not Available Drug Allergy Levofloxacin Headaches (severe) Drug Allergy Problems Problem Type Condition Code Onset Dates Condition Status Problem Trichomonas infection A59.9 Active Problem Sepsis, due to unspecified organism A41.9 Active Problem Acute pyelonephritis N10 Active Assessment Well adult exam Z00.00 Active Problem Right-sided low back pain with M54.41 Active right-sided sciatica, unspecified chronicity Problem Environmental allergies Z91.09 Active Medications Medication Code Code Instructions Start End Status Dosage System Date Date PredniSONE [facility] 79667636871 20 MG Orally Active 1 tablet BID Azithromycin [facility] 15848664172 250 MG Orally Active 2 tablets Once a day on the first day, then 1 tablet daily for 4 days Norethindrone [facility] [address]-86 Active not defined Results No Known Results Summary Purpose [employer] Submission
--- OUTSIDE RECORDS SUMMARY | 2018-06-16 12:54 | XMS REPORT ---
:1980 Author Organization [employer] Care Team Providers Name Role Phone Zhang Brittnee Provider Role Unavailable Allergies No Known Allergies [...] Active Problem Trichomonas infection A59.9 Active Medications Medication Code System Code Instructions Start Date End Date Status Dosage Bactrim DS [facility] 20063066345 800-160 MG Orally May 14, May 24, Active 1 tablet Twice a day 2017 2017 Results No Known Results Summary Purpose [employer] Submission
--- OUTSIDE RECORDS SUMMARY | 2018-06-16 12:54 | XMS REPORT ---
:1980 Author Organization [employer] Care Team Providers Name Role Phone Brittnee Holcomb Provider Role Unavailable Allergies No Known Allergies Problems Problem Type Condition Code Onset Dates Condition Status Problem Trichomonas infection A59.9 Active Problem Sepsis, due to unspecified organism A41.9 Active Problem Acute pyelonephritis N10 Active Problem Right-sided low back pain with M54.41 Active right-sided sciatica, unspecified chronicity Problem Environmental allergies Z91.09 Active Medications No Known Medications Results No Known Results Summary Purpose [employer] Submission
--- OUTSIDE RECORDS SUMMARY | 2018-06-16 12:54 | XMS REPORT ---
:1980 Author Organization [employer] Care Team Providers Name Role Phone Brittnee Holcomb Provider Role Unavailable Allergies, Adverse Reactions, Alerts Substance Reaction Event Type Levofloxacin Headaches (severe) Drug Allergy Problems Problem Type Condition Code Onset Dates Condition Status Problem Right-sided low back pain with M54.41 Active right-sided sciatica, unspecified chronicity Problem Acute pyelonephritis N10 Active Problem Sepsis, due to unspecified organism A41.9 Active Problem Status post fall Z91.81 Active Problem Lumbago with sciatica M54.40 Active Problem Low back pain M54.5 Active Problem Lumbago with sciatica, right side M54.41 Active Problem Trichomonas infection A59.9 Active Problem Numbness in right leg R20.0 Active Problem Other chronic pain G89.29 Active Assessment Other chronic pain G89.29 Active Assessment Low back pain M54.5 Active Assessment Status post fall Z91.81 Active Assessment Numbness in right leg R20.0 Active Problem Environmental allergies Z91.09 Active Medications Medication Code Code Instructions Start End Status Dosage System Date Date PredniSONE [facility] 32476628428 20 MG Orally Active 1 tablet BID Norethindrone [facility] [address]-01 Active not defined Robaxin-750 [facility] 00178400243 750 MG Orally Sept Oct Active 1 tablet Twice daily , 12, as needed 2017 2017 for muscle cramping/ pain Tramadol HCl [facility] 20424921464 50 MG Orally Sept Oct Active 1 tablet Twice daily 12, 12, as needed 2017 2017 for severe pain Azithromycin [facility] 86427877149 250 MG Orally Active 2 tablets Once a day on the first day, then 1 tablet daily for 4 days Meloxicam [facility] 22625497544 15 MG Orally Sept Oct Active 1/2 to 1 Once a day 12, 12, tablet 2017 2017 (as needed for pain; take with food) ProAir HFA [facility] 80311722558 108 (90 Base) April Active 2 puffs MCG/ACT 17, as needed Inhalation 2017 for every 4-6 hrs sob/wheez ing Cyclobenzaprine [facility] 16248046307 5 MG Orally Sept Inactive 1 tablet HCl Once daily in 12, as needed evening 2017 for muscle cramps/pa in Results No Known Results Summary Purpose [employer] Submission
--- OUTSIDE RECORDS SUMMARY | 2018-06-16 12:54 | XMS REPORT ---
:1980 Author Organization eClinicalWorks Care Team Providers Name Role Phone Brittnee Holcomb Provider Role Unavailable Allergies No Known Allergies Problems Problem Type Condition Code Onset Dates Condition Status Problem Environmental allergies Z91.09 Active Problem Lumbago with sciatica, right side M54.41 Active Problem Numbness in right leg R20.0 Active Problem Other chronic pain G89.29 Active Problem Trichomonas infection A59.9 Active Problem Acute pyelonephritis N10 Active Problem Sepsis, due to unspecified organism A41.9 Active Problem Right-sided low back pain with M54.41 Active right-sided sciatica, unspecified chronicity Medications No Known Medications Results No Known Results Summary Purpose eClinicalWorks Submission
--- OUTSIDE RECORDS SUMMARY | 2018-06-16 12:54 | XMS REPORT ---
:1980 Author Organization eClinicalWorks Care Team Providers Name Role Phone Brittnee Holcomb Provider Role Unavailable Allergies No Known Allergies Problems Problem Type Condition Code Onset Dates Condition Status Problem Right-sided low back pain with M54.41 Active right-sided sciatica, unspecified chronicity Problem Acute pyelonephritis N10 Active Problem Sepsis, due to unspecified organism A41.9 Active Problem Environmental allergies Z91.09 Active Problem Status post fall Z91.81 Active Problem Lumbago with sciatica M54.40 Active Problem Low back pain M54.5 Active Problem Lumbago with sciatica, right side M54.41 Active Problem Trichomonas infection A59.9 Active Problem Numbness in right leg R20.0 Active Problem Other chronic pain G89.29 Active Medications No Known Medications Results No Known Results Summary Purpose eClinicalWorks Submission
--- OUTSIDE RECORDS SUMMARY | 2018-06-16 12:54 | XMS REPORT ---
:1980 Author Organization eClinicalWorks Care Team Providers Name Role Phone Brittnee Holcomb Provider Role Unavailable Allergies, Adverse Reactions, Alerts Substance Reaction Event Type ceclor Info Not Available Drug Allergy Levofloxacin Headaches (severe) Drug Allergy Problems Problem Type Condition Code Onset Dates Condition Status Assessment Right-sided low back pain with M54.41 Active right-sided sciatica, unspecified chronicity Assessment Trichomonas infection A59.9 Active Assessment Follow-up exam Z09 Active Problem Trichomonas infection A59.9 Active Problem Sepsis, due to unspecified organism A41.9 Active Problem Acute pyelonephritis N10 Active Assessment Acute pyelonephritis N10 Active Assessment Sepsis, due to unspecified organism A41.9 Active Problem Right-sided low back pain with M54.41 Active right-sided sciatica, unspecified chronicity Problem Environmental allergies Z91.09 Active Medications Medication Code Code Instructions Start End Status Dosage System Date Date Norethindrone [facility] [address]-82 Active not defined PredniSONE [facility] 66833708388 20 MG Orally Active 1 tablet BID Azithromycin [facility] 71387426035 250 MG Orally Active 2 tablets Once a day on the first day, then 1 tablet daily for 4 days Results No Known Results Summary Purpose eClinicalWorks Submission
--- OUTSIDE RECORDS SUMMARY | 2018-06-16 12:54 | XMS REPORT ---
:1980 Author Organization eClinicalWorks Care Team Providers Name Role Phone Brittnee Holcomb Provider Role Unavailable Allergies, Adverse Reactions, Alerts Substance Reaction Event Type Levofloxacin Headaches (severe) Drug Allergy Problems Problem Type Condition Code Onset Dates Condition Status Assessment Lumbago with sciatica, right side M54.41 Active Problem Environmental allergies Z91.09 Active Assessment Numbness in right leg R20.0 Active Assessment Other chronic pain G89.29 Active Problem Lumbago with sciatica, right side M54.41 Active Problem Numbness in right leg R20.0 Active Problem Other chronic pain G89.29 Active Problem Trichomonas infection A59.9 Active Problem Acute pyelonephritis N10 Active Problem Sepsis, due to unspecified organism A41.9 Active Problem Right-sided low back pain with M54.41 Active right-sided sciatica, unspecified chronicity Medications Medication Code Code Instructions Start End Status Dosage System Date Date Tramadol HCl [facility] 76140667172 50 MG Orally March Active 1 tablet Once daily in , as needed evening 2017 2017 for severe pain Azithromycin ND 40990951767 250 MG Orally Active 2 tablets Once a day on the first day, then 1 tablet daily for 4 days Cyclobenzaprine ND 59179076230 5 MG Orally March Active 1 tablet HCl Once daily in , as needed evening 2017 2017 for muscle cramps/pa in PredniSONE ND 92550988764 20 MG Orally Active 1 tablet BID Norethindrone [facility] [address]-95 Active not defined Results No Known Results Summary Purpose [employer] Exchange Submission
[2018-06-16] MEDS ORDERED: NA CHLORIDE 0.9% 1,000 ML ONE (15:43)
[2018-06-16] MEDS ORDERED: ONDANSETRON 4 MG/2 ML VIAL ONE (15:43)
[2018-06-16] MEDS ORDERED: MORPHINE 4 MG/ML SYR ONE (15:43)
[2018-06-16 15:56] LABS: Urine Blood NEGATIVE (NEG); Urine Glucose NEGATIVE (NEG); Urine Protein NEGATIVE (NEG); Urine pH 5.5 (5.0-7.0)
[2018-06-16 16:06] LABS: Urine Bacteria <20 /HPF (<20); Urine Culture Reflex Order NOT NEEDED; Urine RBC <5 /HPF (NONE SEEN)
--- NOTE | 2018-06-16 16:30 | RAD REPORT ---
EXAM DESCRIPTION: CT - Abdomen Pelvis W Contrast - 06/16/2018 3:45 pm CLINICAL HISTORY: Abdominal pain with nausea. Dysuria COMPARISON: December 2017 TECHNIQUE: Computed axial tomography of the abdomen pelvis was obtained. 100 cc Isovue-300 was admin istered intravenously. Oral contrast was not requested which limits evaluation of bowel. All CT scans are performed using dose optimization technique as appropriate and may include automated exposure control or mA/KV adjustment according to patient size. FINDINGS: The liver, spleen, pancreas, adrenal and kidneys appear unremarkable. There is no evidence of diverticulitis. The appendix is normal. An IUD is in place within the uterus. The gallbladder has been removed. Prominent ovarian follicles are noted. Minimal amount of free fluid probably is physiologic IMPRESSION: No acute abnormality is displayed.
[2018-06-16 16:34] LABS: ALT/SGPT 14 U/L (12-78); AST/SGOT 7 U/L (15-37); Albumin 3.8 g/dL (3.4-5.0); Alkaline Phosphatase 79 U/L (45-117); Amylase Level 41 U/L (25-115); BUN Blood Urea Nitrogen 9 mg/dL (7-18); Bicarbonate 27 mmol/L (21-32); Bilirubin Direct 0.2 mg/dL (0-0.2); Bilirubin Total 0.6 mg/dL (0.2-1.0); Glucose Level 88 mg/dL (74-106); Lipase 156 U/L (73-393); Potassium 4.4 mmol/L (3.5-5.1); Sodium Level 137 mmol/L (136-145)
[2018-06-16 17:27] LABS: Absolute Lymphocytes (CBC) 1.8 K/uL (0.7-4.9); Absolute Monocytes 0.3 K/uL (0.1-1.3); Absolute Neutrophil 5.9 K/uL (1.8-8.0); Basophils % 0.4 % (0-1.3); Eosinophils % 1.2 % (0-4.4); Hematocrit 40.2 % (36.0-45.0); Lymphocytes % 22.2 % (15.3-44.8); MCH 29.8 pg (27.0-35.0); MPV 8.9 fL (7.6-11.3); Monocytes % 4.1 % (3.3-12.3); RBC Red Blood Cell Count 4.57 M/uL (3.86-4.86)
--- NOTE | 2018-06-16 17:39 | ER ---
Nurse's Notes [facility] Name: Aimee Randolph Age: 38 yrs Sex: Female : 1980 Arrival Date: 06/16/2018 Time: 12:55 Bed 30 Private MD: Brittnee Holcomb Diagnosis: Dysuria;Flank Pain Presentation: 06/16 13:17 Presenting complaint: Patient states: Low back pain with nausea and frequent urination aj for 2 days. Denies burning with urination. Transition of care: patient was not received from another setting of care. Onset of symptoms was June 14, 2018. Risk Assessment: Do you want to hurt yourself or someone else? Patient reports no desire to harm self or others. Initial Sepsis Screen: Does the patient meet any 2 criteria? No. Patient's initial sepsis screen is negative. Does the patient have a suspected source of infection? No. Patient's initial sepsis screen is negative. Care prior to arrival: None. 13:17 Method Of Arrival: Ambulatory aj 13:17 Acuity: LAURITA 3 aj Triage Assessment: 13:19 General: Appears in no apparent distress. comfortable, Behavior is calm, cooperative, aj appropriate for age. Pain: Complains of pain in low back area. Neuro: Level of Consciousness is awake, alert, obeys commands, Oriented to person, place, time, situation, Appropriate for age. Respiratory: Airway is patent Respiratory effort is even, unlabored, Respiratory pattern is regular, symmetrical. : Reports urinary frequency. Derm: Skin is intact, is healthy with good turgor, Skin is pink, warm \T\ dry. normal. Musculoskeletal: Circulation, motion, and sensation intact. Range of motion: intact in all extremities. 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 - Social history:: Smoking status: Patient/guardian denies using tobacco. - Ebola Screening: : Patient negative for fever greater than or equal to 101.5 degrees Fahrenheit, and additional compatible Ebola Virus Disease symptoms Patient denies exposure to infectious person Patient denies travel to an Ebola-affected area in the 21 days before illness onset No symptoms or risks identified at this time. Screenin:38 Abuse screen: Denies threats or abuse. Denies injuries from another. Nutritional mg2 screening: No deficits noted. Tuberculosis screening: No symptoms or risk factors identified. Fall Risk IV access (20 points). Assessment: 15:51 General: Appears in no apparent distress. comfortable, Behavior is calm, cooperative. mg2 Pain: Complains of pain in left lower quadrant and right lower quadrant and abdomen and right flank and left flank and back Pain does not radiate. Pain currently is 7 out of 10 on a pain scale. Quality of pain is described as aching, Pain began gradually, Is intermittent. Neuro: Level of Consciousness is awake, alert, obeys commands, Oriented to person, place, time, situation. Cardiovascular: Capillary refill < 3 seconds Patient's skin is warm and dry. Respiratory: Airway is patent Respiratory effort is even, unlabored, Respiratory pattern is regular, symmetrical. GI: Abdomen is flat, non-distended. : Urine is clear. EENT: No signs and/or symptoms were reported regarding the EENT system. Derm: Skin is intact, Skin is pink, warm \T\ dry. normal. Musculoskeletal: No signs and/or symptoms reported regarding the musculoskeletal system. 16:11 Reassessment: Patient appears in no apparent distress at this time. Patient and/or mg2 family updated on plan of care and expected duration. Pain level reassessed. Patient is alert, oriented x 3, equal unlabored respirations, skin warm/dry/pink. 17:50 Reassessment: Patient is alert, oriented x 3, equal unlabored respirations, skin aa5 warm/dry/pink. Vital Signs: 13:19 BP 144 / 76; Pulse 86; Resp 16; Temp 99.0; Pulse Ox 98% on R/A; Weight 83.01 kg; Height aj 5 ft. 0 in. (152.40 cm); 16:26 BP 144 / 88; Pulse 58; Resp 18; Pulse Ox 100% ; Pain 5/10; mg2 17:15 BP 151 / 82; Pulse 55; Resp 18; Pulse Ox 100% on R/A; mg2 17:48 BP 138 / 80; Pulse 64; Resp 18 S; Pulse Ox 100% on R/A; aa5 13:19 Body Mass Index 35.74 (83.01 kg, 152.40 cm) ED Course: 12:55 Patient arrived in ED. mr 12:55 Brittnee Holcomb MD is Private Physician. mr 13:18 Triage completed. aj 13:19 Arm band placed on right wrist. Patient placed in waiting room, Patient notified of wait time. 14:52 August Stanley PA is PHCP. [facility] 14:52 Thang Callejas MD is Attending Physician. jm 15:07 Robert Stiles, ROULA is Primary Nurse. mg2 15:38 No provider procedures requiring assistance completed. Inserted saline lock: 20 gauge mg2 in right forearm, using aseptic technique. Blood collected. 15:44 CT completed. Patient moved to CT via wheelchair. Patient moved back from CT. cw1 15:45 CT Abd/Pelvis - W/Contrast In Process Unspecified. EDMS 15:53 Patient has correct armband on for positive identification. Pulse ox on. NIBP on. Door mg2 closed. Warm blanket given. 17:37 Brittnee Holcomb MD is Referral Physician. [facility] 17:50 IV discontinued, intact, bleeding controlled, No redness/swelling at site. Pressure aa5 dressing applied. Administered Medications: 16:09 Drug: morphine 4 mg Route: IVP; Site: right forearm; mg2 17:42 Follow up: Response: No adverse reaction; Marked relief of symptoms mg2 16:10 Drug: NS 0.9% 1000 ml Route: IV; Rate: 1 bolus; Site: right forearm; mg2 17:43 Follow up: Response: No adverse reaction; IV Status: Completed infusion mg2 16:10 Drug: Zofran 4 mg Route: IVP; Site: right forearm; mg2 17:43 Follow up: Response: No adverse reaction; Marked relief of symptoms mg2 Outcome: 17:39 Discharge ordered by MD. jm 17:50 Discharged to home ambulatory, with family. aa5 17:50 Condition: stable 17:50 Discharge instructions given to patient, Instructed on discharge instructions, follow up and referral plans. medication usage, Demonstrated understanding of instructions, follow-up care, medications, Prescriptions given X 1. 17:51 Patient left the ED. la1 Signatures: Dispatcher [employer] EDMS Osiris Johnson RN RN aj Mickail, Joel, PA PA jmm Rivera, Maria mr Calderon, Mary, RN RN aa5 Tresa, Hiwot cw1 Panchito Winston, RN RN la1 Robert Stiles, RN RN mg2
--- NOTE | 2018-06-16 17:39 | EDPHYS ---
Physician Documentation [facility] Name: Aimee Randolph Age: 38 yrs Sex: Female : 1980 Arrival Date: 06/16/2018 Time: 12:55 Bed 30 Private MD: Brittnee Holcomb ED Physician Thang Callejas HPI: 06/16 14:58 This 38 yrs old Female presents to ER via Ambulatory with complaints of Back jmm Pain, Nausea. 14:58 The patient presents with pain that is acute, with no known mechanism of injury. The jmm symptoms are located in the left flank and right flank. Onset: The symptoms/episode began/occurred gradually, 2 day(s) ago. The pain radiates to the abdomen. Associated signs and symptoms: Pertinent positives: nausea. This is a 38 year old female with a history of congenital aortic valve defect presents to the ED with bilateral flank pain, nausea, and dysuria beginning approx 2 days ago. Patient states she has been previously admitted for kidney infection. Patient states the pain radiates into her abdomen. Denies vomiting but states having nausea. . 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 - Social history:: Smoking status: Patient/guardian denies using tobacco. - Ebola Screening: : Patient negative for fever greater than or equal to 101.5 degrees Fahrenheit, and additional compatible Ebola Virus Disease symptoms Patient denies exposure to infectious person Patient denies travel to an Ebola-affected area in the 21 days before illness onset No symptoms or risks identified at this time. ROS: 14:58 Cardiovascular: Negative for chest pain, palpitations, and edema, Respiratory: Negative jmm for shortness of breath, cough, wheezing, and pleuritic chest pain. 14:58 Skin: Negative for injury, rash, and discoloration, Neuro: Negative for headache, weakness, numbness, tingling, and seizure. 14:58 Constitutional: Positive for body aches, malaise. 14:58 Abdomen/GI: Positive for abdominal pain. 14:58 Back: Positive for flank pain, bilaterally. 14:58 All other systems are negative. Exam: 14:58 Head/Face: atraumatic. Chest/axilla: Normal chest wall appearance and motion. [facility] Cardiovascular: Regular rate and rhythm. No edema appreciated Respiratory: Normal respirations, no respiratory distress appreciated 14:58 Constitutional: The patient appears in no acute distress, alert, awake. 14:58 Abdomen/GI: Inspection: abdomen appears normal, Bowel sounds: normal, Palpation: soft, mild abdominal tenderness, in the right lower quadrant and left lower quadrant. 14:58 Back: CVA tenderness, that is mild, is noted on the right, is noted on the left. 14:58 Musculoskeletal/extremity: ROM: intact in all extremities. 14:58 Skin: Appearance: Color: normal in color. 14:58 Neuro: Orientation: is normal, Mentation: is normal, Memory: is normal. 14:58 Psych: Behavior/mood is pleasant, cooperative. Vital Signs: 13:19 BP 144 / 76; Pulse 86; Resp 16; Temp 99.0; Pulse Ox 98% on R/A; Weight 83.01 kg; Height aj 5 ft. 0 in. (152.40 cm); 16:26 BP 144 / 88; Pulse 58; Resp 18; Pulse Ox 100% ; Pain 5/10; mg2 17:15 BP 151 / 82; Pulse 55; Resp 18; Pulse Ox 100% on R/A; mg2 17:48 BP 138 / 80; Pulse 64; Resp 18 S; Pulse Ox 100% on R/A; aa5 13:19 Body Mass Index 35.74 (83.01 kg, 152.40 cm) MDM: 14:57 Patient medically screened. [facility] 17:36 Data reviewed: vital signs, nurses notes. Data interpreted: Pulse oximetry: on room air jmm is 100 %. Interpretation: normal. Counseling: I had a detailed discussion with the patient and/or guardian regarding: the historical points, exam findings, and any diagnostic results supporting the discharge/admit diagnosis, radiology results, the need for outpatient follow up, to return to the emergency department if symptoms worsen or persist or if there are any questions or concerns that arise at home. Response to treatment: the patient's symptoms have mildly improved after treatment. 17:36 ED course: Patient is alert and non toxic in appearance in the ED. Patient prescribed [facility] antibiotics due to complaints of dysuria. I do not suspect sepsis at this time. Patient given strict return precautions. Patient understood and agrees with the plan of care. . 06/16 14:58 Order name: Amylase, Serum; Complete Time: 16:36 [facility] 06/16 14:58 Order name: Basic Metabolic Panel; Complete Time: 16:36 [facility] 06/16 14:58 Order name: CBC with Diff; Complete Time: 17:30 [facility] 06/16 14:58 Order name: Creatinine for Radiology; Complete Time: 16:32 [facility] 06/16 14:58 Order name: Hepatic Function; Complete Time: 16:36 [facility] 06/16 14:58 Order name: Lipase; Complete Time: 16:36 [facility] 06/16 14:58 Order name: Urine Microscopic Only; Complete Time: 16:10 [facility] 06/16 14:58 Order name: CT Abd/Pelvis - W/Contrast; Complete Time: 16:32 [facility] 06/16 15:02 Order name: Blood Culture Adult (2) [facility] 06/16 15:02 Order name: Lactate; Complete Time: 17:14 [facility] 06/16 15:02 Order name: Procalcitonin; Complete Time: 17:22 [facility] 06/16 15:45 Order name: Urine Dipstick--Ancillary (enter results); Complete Time: 16:03 ag 06/16 15:45 Order name: Urine --Ancillary (enter results); Complete Time: 16:03 ag 06/16 14:58 Order name: Urine Test (obtain specimen); Complete Time: 16:10 [facility] 06/16 14:58 Order name: IV Saline Lock; Complete Time: 16:10 [facility] 06/16 14:58 Order name: Labs collected and sent; Complete Time: 16:10 [facility] 06/16 14:58 Order name: Urine Dipstick-Ancillary (obtain specimen); Complete Time: 16:10 [facility] Administered Medications: 16:09 Drug: morphine 4 mg Route: IVP; Site: right forearm; mg2 17:42 Follow up: Response: No adverse reaction; Marked relief of symptoms mg2 16:10 Drug: NS 0.9% 1000 ml Route: IV; Rate: 1 bolus; Site: right forearm; mg2 17:43 Follow up: Response: No adverse reaction; IV Status: Completed infusion mg2 16:10 Drug: Zofran 4 mg Route: IVP; Site: right forearm; mg2 17:43 Follow up: Response: No adverse reaction; Marked relief of symptoms mg2 Disposition: 06/16/18 17:39 Discharged to Home. Impression: Dysuria, Flank Pain. - Condition is Stable. - Discharge Instructions: Dysuria, Flank Pain, Adult. - Prescriptions for Bactrim DS 800- 160 mg Oral Tablet - take 1 tablet by ORAL route every 12 hours for 10 days; 20 tablet. - Medication Reconciliation Form, Thank You Letter, Antibiotic Education, Prescription Opioid Use form. - Follow up: Brittnee Holcomb MD; When: 2 - 3 days; Reason: Recheck today's complaints, Continuance of care, Re-evaluation by your physician. Addendum: 06/18/2018 07:55 Co-signature as Attending Physician, Thang Callejas MD I agree with the assessment and w a plan of care. Signatures: Dispatcher [employer] [facility] Osiris Johnson RN RN August Hahn PA PA [facility] Panchito Winston RN RN la1 Thang Callejas MD MD wa Gardose, Michele, RN RN mg2 Corrections: (The following items were deleted from the chart) 06/16 16:23 16:05 D-DIMER+COAG.LAB.BRZ ordered. [facility] 17:51 17:39 06/16/2018 17:39 Discharged to Home. Impression: Dysuria; Flank Pain. Condition la1 is Stable. Forms are Medication Reconciliation Form, Thank You Letter, Antibiotic Education, Prescription Opioid Use. Follow up: Brittnee Holcomb; When: 2 - 3 days; Reason: Recheck today's complaints, Continuance of care, Re-evaluation by your physician. [facility]
[2018-06-16 18:11] VITALS: TEMP 99
[2018-06-16 18:12] VITALS: O2SAT 100
[2018-06-16 18:13] VITALS: BP 151/82
== END 2018-06-16 17:51 | disposition home or self-care (01) ==
LOC: ER 12:52
DX: R30.0 Dysuria (principal); Z88.1 Allergy status to other antibiotic agents
CPT/HCPCS: 36415; 74177; 80048; 80076; 81003; 81015; 81025; 82150; 83605; 83690; 84145; 85025; 87040; 96361; 96374; 96375; 99284; J2405; J7030; Q9967

== ENCOUNTER 2018-10-14 10:41 | Emergency (ER) | payer OTHER ==
--- OUTSIDE RECORDS SUMMARY | 2018-10-14 10:43 | XMS REPORT ---
[...] End Status Dosage System Date Date PredniSONE [facility] 02428225446 20 MG Orally Active 1 tablet BID Azithromycin [facility] 87598659368 250 MG Orally Active 2 tablets Once a day on the first day, then 1 tablet daily for 4 days Norethindrone [facility] [address]-92 Active not defined Results No Known Results Summary Purpose eClinicalWorks Submission
--- OUTSIDE RECORDS SUMMARY | 2018-10-14 10:43 | XMS REPORT ---
[...] End Status Dosage System Date Date Norethindrone [facility] [address]-32 Active not defined PredniSONE [facility] 91365537307 20 MG Orally Active 1 tablet BID Azithromycin [facility] 48691364032 250 MG Orally Active 2 tablets Once a day on the first day, then 1 tablet daily for 4 days Results No Known Results Summary Purpose eClinicalWorks Submission
--- OUTSIDE RECORDS SUMMARY | 2018-10-14 10:43 | XMS REPORT ---
[...] Medications Results No Known Results Summary Purpose [employer] Submission
--- OUTSIDE RECORDS SUMMARY | 2018-10-14 10:43 | XMS REPORT ---
[...] Status Dosage System Date Date Tramadol HCl [facility] 86471927578 50 MG Orally March Active 1 tablet Once daily in , as needed evening 2017 2017 for severe pain Azithromycin ND 93408568958 250 MG Orally Active 2 tablets Once a day on the first day, then 1 tablet daily for 4 days Cyclobenzaprine ND 69768450272 5 MG Orally March Active 1 tablet HCl Once daily in , as needed evening 2017 2017 for muscle cramps/pa in PredniSONE ND 10424504537 20 MG Orally Active 1 tablet BID Norethindrone [facility] [address]-74 Active not defined Results No Known Results Summary Purpose [employer] Submission
--- OUTSIDE RECORDS SUMMARY | 2018-10-14 10:44 | XMS REPORT ---
[...] Date End Date Status Dosage Bactrim DS [facility] 63460395036 800-160 MG Orally May 14, May 24, Active 1 tablet Twice a day 2017 2017 Results No Known Results Summary Purpose eClinicalWorks Submission
--- OUTSIDE RECORDS SUMMARY | 2018-10-14 10:44 | XMS REPORT ---
[...] End Status Dosage System Date Date PredniSONE [facility] 89361379965 20 MG Orally Active 1 tablet BID Norethindrone [facility] [address]-61 Active not defined Robaxin-750 [facility] 62959824679 750 MG Orally Sept Oct Active 1 tablet Twice daily , 12, as needed 2017 2017 for muscle cramping/ pain Tramadol HCl [facility] 49748337323 50 MG Orally Sept Oct Active 1 tablet Twice daily 12, 12, as needed 2017 2017 for severe pain Azithromycin [facility] 91948492707 250 MG Orally Active 2 tablets Once a day on the first day, then 1 tablet daily for 4 days Meloxicam [facility] 50411454656 15 MG Orally Sept Oct Active 1/2 to 1 Once a day 12, 12, tablet 2017 2017 (as needed for pain; take with food) ProAir HFA [facility] 74066227076 108 (90 Base) April Active 2 puffs MCG/ACT 17, as needed Inhalation 2017 for every 4-6 hrs sob/wheez ing Cyclobenzaprine [facility] 47103679883 5 MG Orally Sept Inactive 1 tablet HCl Once daily in 12, as needed evening 2017 for muscle cramps/pa in Results No Known Results Summary Purpose eClinicalWorks Submission
--- OUTSIDE RECORDS SUMMARY | 2018-10-14 10:44 | XMS REPORT ---
[...] Status Dosage System Date Date Tramadol HCl [facility] 81284798296 50 MG Orally March Active 1 tablet Once daily in , as needed evening 2017 2017 for severe pain Norethindrone [facility] [address]-35 Active not defined PredniSONE [facility] 54553284040 20 MG Orally Active 1 tablet BID Azithromycin [facility] 08064660269 250 MG Orally Active 2 tablets Once a day on the first day, then 1 tablet daily for 4 days Cyclobenzaprine [facility] 12482929558 5 MG Orally March Active 1 tablet HCl Once daily in , as needed evening 2017 2017 for muscle cramps/danyelle n ProAir HFA [facility] 37634231614 108 (90 Base) April Active 2 puffs as MCG/ACT 17, needed for Inhalation 2017 sob/wheezi every 4-6 hrs ng Diflucan [facility] 38081002476 150 MG Orally April Active as 1 tablet now; 17, 19, then repeat 2017 2017 after completing abx. Clarithromycin [facility] 01006951038 500 MG Orally April Active 1 tablet every 12 hrs 2017 Results Name Result Date Reference Range Unit Abnormality Flag STREP A RAPID ----Result Negative [id number] Summary Purpose eClinicalWorks Submission
[2018-10-14] MEDS ORDERED: NA CHLORIDE 0.9% 1,000 ML ONE (12:33)
[2018-10-14 12:35] LABS: Urine Bacteria <20 /HPF (<20); Urine Culture Reflex Order NOT NEEDED; Urine RBC <5 /HPF (NONE SEEN)
[2018-10-14 12:44] LABS: Absolute Lymphocytes (CBC) 0.8 K/uL (0.7-4.9); Absolute Monocytes 0.4 K/uL (0.1-1.3); Absolute Neutrophil 3.1 K/uL (1.8-8.0); Basophils % 0.3 % (0-1.3); Hematocrit 39.2 % (36.0-45.0); Lymphocytes % 18.2 % (15.3-44.8); MPV 8.8 fL (7.6-11.3); Monocytes % 8.3 % (3.3-12.3)
[2018-10-14] MEDS ORDERED: ONDANSETRON 4 MG/2 ML VIAL ONE (13:26)
[2018-10-14 13:36] LABS: ALT/SGPT 17 U/L (12-78); AST/SGOT 7 U/L (15-37); Albumin 3.6 g/dL (3.4-5.0); Alkaline Phosphatase 82 U/L (45-117); BUN Blood Urea Nitrogen 8 mg/dL (7-18); Bicarbonate 24 mmol/L (21-32); Bilirubin Direct 0.2 mg/dL (0-0.2); Bilirubin Total 0.8 mg/dL (0.2-1.0); Glucose Level 88 mg/dL (74-106); Lipase 123 U/L (73-393); Potassium 3.8 mmol/L (3.5-5.1); Sodium Level 142 mmol/L (136-145)
--- NOTE | 2018-10-14 13:39 | RAD REPORT ---
EXAM DESCRIPTION: CT - Stone Protocol - 10/14/2018 1:29 pm CLINICAL HISTORY: Flank pain. Abd pain;Flank pain COMPARISON: Abdomen Pelvis W Contrast dated 06/16/2018; Stone Protocol dated 01/14/2018 TECHNIQUE: Axial images were obtained without oral or IV contrast. Lack of contrast limits solid org an and vascular assessment. The [id number] spans the entirety of the system partially obscuring uppermost abdomen and lung bases. Coronal reformatted images were obtained and reviewed. All CT scans are performed using dose optimization technique as appropriate and may include automated exposure control or mA/KV adjustment according to patient size. FINDINGS: The lower lung dial are clear. Cholecystectomy clips. Imaged portions of the liver and spleen show no suspicious findings on non-contrast imaging. The panc reas and adrenal glands are normal. No urinary tract stones or obstructive uropathy. No bowel obstruction, free air, free fluid or abscess. Normal appendix noted. Mild spondylosis lower lumbar spine. IUD is present in the uterus. IMPRESSION: No urinary tract stones or obstructive uropathy.
[2018-10-14] MEDS ORDERED: MORPHINE 4 MG/ML SYR ONE (13:49)
--- NOTE | 2018-10-14 14:02 | EDPHYS ---
Physician Documentation [facility] Name: Aimee Randolph Age: 38 yrs Sex: Female : 1980 Arrival Date: 10/14/2018 Time: 10:43 Bed 5 Private MD: Brittnee Holcomb ED Physician Julio Cesar Roman HPI: 10/14 12:26 This 38 yrs old Female presents to ER via Ambulatory with complaints of Fever, kb Headache, Vomiting, Back Pain, Abdominal Pain. 12:26 The patient presents with abdominal pain in the lower abdomen. Onset: The kb symptoms/episode began/occurred 4 day(s) ago. The symptoms do not radiate. Associated signs and symptoms: Pertinent positives: nausea and vomiting, fever. The symptoms are described as constant. Modifying factors: The symptoms are alleviated by nothing, the symptoms are aggravated by pressure. Severity of pain: At its worst the pain was moderate in the emergency department the pain is unchanged. The patient has not experienced similar symptoms in the past. The patient has not recently seen a physician. Pt reports bilateral flank pain that started and now wraps around lower abd. Reports fever, nausea and vomiting as well. 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 - Social history:: Smoking status: unknown. - Ebola Screening: : No symptoms or risks identified at this time. ROS: 12:25 ENT: Negative for injury, pain, and discharge, Neck: Negative for injury, pain, and kb swelling, Cardiovascular: Negative for chest pain, palpitations, and edema, Respiratory: Negative for shortness of breath, cough, wheezing, and pleuritic chest pain, MS/Extremity: Negative for injury and deformity, Skin: Negative for injury, rash, and discoloration, Neuro: Negative for headache, weakness, numbness, tingling, and seizure. 12:25 Constitutional: Positive for chills, fatigue, fever, malaise, Negative for body aches, poor PO intake, weight loss. 12:25 Abdomen/GI: Positive for abdominal pain, nausea and vomiting, Negative for diarrhea, constipation. 12:25 : Positive for urinary symptoms, flank pain, urinary frequency. Exam: 12:26 Constitutional: This is a well developed, well nourished patient who is awake, alert, kb and in no acute distress. Head/Face: Normocephalic, atraumatic. ENT: Nares patent. No nasal discharge, no septal abnormalities noted. Tympanic membranes are normal and external auditory canals are clear. Oropharynx with no redness, swelling, or masses, exudates, or evidence of obstruction, uvula midline. Mucous membranes moist. Neck: Trachea midline, no thyromegaly or masses palpated, and no cervical lymphadenopathy. Supple, full range of motion without nuchal rigidity, or vertebral point tenderness. No Meningismus. Chest/axilla: Normal chest wall appearance and motion. Nontender with no deformity. No lesions are appreciated. Cardiovascular: Regular rate and rhythm with a normal S1 and S2. No gallops, murmurs, or rubs. Normal PMI, no JVD. No pulse deficits. Respiratory: Lungs have equal breath sounds bilaterally, clear to auscultation and percussion. No rales, rhonchi or wheezes noted. No increased work of breathing, no retractions or nasal flaring. Skin: Warm, dry with normal turgor. Normal color with no rashes, no lesions, and no evidence of cellulitis. MS/ Extremity: Pulses equal, no cyanosis. Neurovascular intact. Full, normal range of motion. Neuro: Awake and alert, GCS 15, oriented to person, place, time, and situation. Cranial nerves II-XII grossly intact. Motor strength 5/5 in all extremities. Sensory grossly intact. Cerebellar exam normal. Normal gait. 12:26 Abdomen/GI: Inspection: abdomen appears normal, Bowel sounds: normal, in all quadrants, Palpation: soft, in all quadrants, moderate abdominal tenderness, in all quadrants. Vital Signs: 11:07 BP 131 / 79; Pulse 71; Resp 18; Temp 98.4; Pulse Ox 100% on R/A; Weight 83.91 kg (R); aj1 Height 5 ft. 0 in. (152.40 cm) (R); Pain 8/10; 13:21 BP 134 / 82; Pulse 49; Resp 16; Pulse Ox 99% ; sv 13:43 BP 130 / 84; Pulse 48; Resp 18; Pulse Ox 100% on R/A; sv 14:15 Pain 3/10; sv 14:41 BP 132 / 72; Pulse 50; Resp 16; Pulse Ox 99% ; sv 11:07 Body Mass Index 36.13 (83.91 kg, 152.40 cm) aj1 MDM: 11:43 Patient medically screened. kb 12:25 Data reviewed: vital signs, nurses notes. Data interpreted: Pulse oximetry: on room air kb is 100 %. Interpretation: normal. 14:00 Counseling: I had a detailed discussion with the patient and/or guardian regarding: the kb historical points, exam findings, and any diagnostic results supporting the discharge/admit diagnosis, lab results, radiology results, the need for outpatient follow up, a family practitioner, to return to the emergency department if symptoms worsen or persist or if there are any questions or concerns that arise at home. 10/14 11:55 Order name: Urine Dipstick--Ancillary (enter results) em1 10/14 11:55 Order name: Urine --Ancillary (enter results) em1 10/14 11:55 Order name: Urine Microscopic Only; Complete Time: 12:38 em1 10/14 12:19 Order name: Basic Metabolic Panel; Complete Time: 13:38 kb 10/14 12:19 Order name: CBC with Diff; Complete Time: 13:06 kb 10/14 12:19 Order name: Hepatic Function; Complete Time: 13:38 kb 10/14 11:40 Order name: Urine Dipstick-Ancillary (obtain specimen); Complete Time: 11:54 kb 10/14 11:55 Order name: Urine Test (obtain specimen); Complete Time: 11:55 em1 10/14 12:19 Order name: Lipase; Complete Time: 13:38 kb 10/14 12:19 Order name: IV Saline Lock; Complete Time: 13:00 kb 10/14 12:19 Order name: CT Stone Protocol; Complete Time: 13:48 kb 10/14 12:19 Order name: Labs collected and sent; Complete Time: 13:01 kb 10/14 12:53 Order name: Labs - recollect needed; Complete Time: 13:14 bd Administered Medications: 12:30 Drug: NS 0.9% 1000 ml Route: IV; Rate: 1000 ml; Site: left forearm; sv 14:00 Follow up: Response: No adverse reaction; IV Status: Completed infusion; IV Intake: sv 1000ml 13:18 Drug: Zofran 4 mg Route: IVP; Site: left forearm; sv 13:43 Follow up: Response: No adverse reaction; Nausea is decreased sv 13:43 Drug: morphine 4 mg Route: IVP; Site: left forearm; sv 14:15 Follow up: Pain 3/10 Adult; Response: No adverse reaction; Pain is decreased sv Disposition: 10/14/18 14:00 Discharged to Home. Impression: Generalized abdominal pain. - Condition is Stable. - Discharge Instructions: Abdominal Pain, Adult, [id number]. - Prescriptions for Bentyl 20 mg Oral Tablet - take 1 tablet by ORAL route every 6 hours As needed; 20 tablet. Zofran 4 mg Oral Tablet - take 1 tablet by ORAL route every 6 hours As needed; 20 tablet. - Medication Reconciliation Form, Thank You Letter, Antibiotic Education, Prescription Opioid Use form. - Follow up: Emergency Department; When: As needed; Reason: Worsening of condition. Follow up: Private Physician; When: 2 - 3 days; Reason: Recheck today's complaints, Continuance of care, Re-evaluation by your physician. Addendum: 10/16/2018 10:23 Co-signature as Attending Physician, Julio Cesar Roman MD. g s Signatures: Dispatcher [employer] EDMS Sherri García, HSE MANAGER-C HSE MANAGER-Ckb Lauren Ontiveros Angela, RN RN Buffy Bravo RN RN sv Martinez, Eric Julio Cesar Hogan MD MD Corrections: (The following items were deleted from the chart) 10/14 14:42 14:00 10/14/2018 14:00 Discharged to Home. Impression: Generalized abdominal pain. sv Condition is Stable. Forms are Medication Reconciliation Form, Thank You Letter, Antibiotic Education, Prescription Opioid Use. Follow up: Emergency Department; When: As needed; Reason: Worsening of condition. Follow up: Private Physician; When: 2 - 3 days; Reason: Recheck today's complaints, Continuance of care, Re-evaluation by your physician. kb
--- NOTE | 2018-10-14 14:02 | ER ---
Nurse's Notes [facility] Name: Aimee Randolph Age: 38 yrs Sex: Female : 1980 Arrival Date: 10/14/2018 Time: 10:43 Bed 5 Private MD: Brittnee Holcomb Diagnosis: Generalized abdominal pain Presentation: 10/14 11:04 Presenting complaint: Patient states: "It started on . I started having lower aj1 back pain it would shoot from one side to the other and then go to my abdomen. I've been going to the bathroom and then yesterday started the vomiting and fever" Patient reports urinary frequency. Denies dysuria, denies diarrhea. Transition of care: patient was not received from another setting of care. Onset of symptoms was October 11, 2017. Risk Assessment: Do you want to hurt yourself or someone else? Patient reports no desire to harm self or others. Initial Sepsis Screen: Does the patient meet any 2 criteria? No. Patient's initial sepsis screen is negative. Does the patient have a suspected source of infection? Yes: Dysuria/Frequency/Urgency/UTI. Care prior to arrival: None. 11:04 Method Of Arrival: Ambulatory aj1 11:04 Acuity: LAURITA 3 aj1 Triage Assessment: 11:07 General: Appears in no apparent distress. uncomfortable, Behavior is calm, cooperative, aj1 appropriate for age. Pain: Complains of pain in low back area Pain radiates to abdomen Pain currently is 8 out of 10 on a pain scale. Pain began 3 days ago Also complains of nausea. Neuro: Level of Consciousness is awake, alert, obeys commands. Cardiovascular: Patient's skin is warm and dry. Respiratory: Airway is patent Respiratory effort is even, unlabored, Respiratory pattern is regular, symmetrical. 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 - Social history:: Smoking status: unknown. - Ebola Screening: : No symptoms or risks identified at this time. Screenin:48 Abuse screen: Denies threats or abuse. Denies injuries from another. Nutritional sv screening: No deficits noted. Tuberculosis screening: No symptoms or risk factors identified. Fall Risk None identified. Assessment: 11:48 General: Appears in no apparent distress. uncomfortable, well developed, Behavior is sv calm, cooperative, appropriate for age. Pain: Complains of pain in low back area and right mid back Pain currently is 8 out of 10 on a pain scale. Quality of pain is described as sharp, Pain began 2-3 days ago. Is intermittent. Neuro: Level of Consciousness is awake, alert, obeys commands, Oriented to person, place, time, situation, Moves all extremities. Full function Gait is steady. Cardiovascular: Heart tones S1 S2 present. Respiratory: Airway is patent Respiratory effort is even, unlabored, Respiratory pattern is regular, symmetrical, Breath sounds are clear bilaterally. GI: Reports nausea. : Reports urinary frequency. Derm: Skin is pink, warm \\T\\ dry. Musculoskeletal: Range of motion: intact in all extremities. 13:14 Reassessment: Patient appears in no apparent distress at this time. No changes from sv previously documented assessment. Patient and/or family updated on plan of care and expected duration. Pain level reassessed. Patient is alert, oriented x 3, equal unlabored respirations, skin warm/dry/pink. 14:42 Reassessment: Patient appears in no apparent distress at this time. Patient and/or sv family updated on plan of care and expected duration. Pain level reassessed. Patient is alert, oriented x 3, equal unlabored respirations, skin warm/dry/pink. Patient states feeling better. Patient states symptoms have improved. Vital Signs: 11:07 BP 131 / 79; Pulse 71; Resp 18; Temp 98.4; Pulse Ox 100% on R/A; Weight 83.91 kg (R); aj1 Height 5 ft. 0 in. (152.40 cm) (R); Pain 8/10; 13:21 BP 134 / 82; Pulse 49; Resp 16; Pulse Ox 99% ; sv 13:43 BP 130 / 84; Pulse 48; Resp 18; Pulse Ox 100% on R/A; sv 14:15 Pain 3/10; sv 14:41 BP 132 / 72; Pulse 50; Resp 16; Pulse Ox 99% ; sv 11:07 Body Mass Index 36.13 (83.91 kg, 152.40 cm) aj1 ED Course: 10:43 Patient arrived in ED. sb2 10:44 Brittnee Holcomb MD is Private Physician. sb2 11:06 Triage completed. aj1 11:07 Arm band placed on Patient placed in waiting room, Patient notified of wait time. aj1 11:24 Sherri [facility]NP-C [facility] kb 11:24 Julio Cesar Roman MD is Attending Physician. kb 11:46 Buffy Barajas RN is Primary Nurse. sv 11:48 Patient has correct armband on for positive identification. Placed in gown. Bed in low sv position. Call light in reach. Door closed. Warm blanket given. Head of bed elevated. 12:30 Initial lab(s) drawn, by me, sent to lab. Inserted saline lock: 22 gauge in left sv forearm, using aseptic technique. Blood collected. 13:14 Lab(s) recollected, by me, sent to lab. sv 13:[address] via stretcher. sv 13:29 CT Stone Protocol In Process Unspecified. EDMS 14:41 No provider procedures requiring assistance completed. IV discontinued, intact, sv bleeding controlled, No redness/swelling at site. Pressure dressing applied. Administered Medications: 12:30 Drug: NS 0.9% 1000 ml Route: IV; Rate: 1000 ml; Site: left forearm; sv 14:00 Follow up: Response: No adverse reaction; IV Status: Completed infusion; IV Intake: sv 1000ml 13:18 Drug: Zofran 4 mg Route: IVP; Site: left forearm; sv 13:43 Follow up: Response: No adverse reaction; Nausea is decreased sv 13:43 Drug: morphine 4 mg Route: IVP; Site: left forearm; sv 14:15 Follow up: Pain 3/10 Adult; Response: No adverse reaction; Pain is decreased sv Intake: 14:00 IV: 1000ml; Total: 1000ml. sv Outcome: 14:00 Discharge ordered by . kb 14:41 Discharged to home ambulatory. sv 14:41 Condition: stable 14:41 Discharge instructions given to patient, Instructed on discharge instructions, follow up and referral plans. medication usage, Demonstrated understanding of instructions, follow-up care, medications, Prescriptions given X 2. 14:42 Patient left the ED. sv Signatures: Dispatcher [employer] Sherri Liz, KARENC METAL MOCKUP MAKER-Sammie Enriquez RN RN aj1 Buffy Barajas RN RN sv Shiloh Coffman sb2
[2018-10-14 15:04] VITALS: TEMP 98.4
[2018-10-14 15:07] VITALS: BP 132/72; O2SAT 99
[2018-10-14 17:44] LABS: Urine Blood TRACE (NEG); Urine Glucose NEGATIVE (NEG); Urine Protein NEGATIVE (NEG)
== END 2018-10-14 14:42 | disposition home or self-care (01) ==
LOC: ER 10:41
DX: R10.84 Generalized abdominal pain (principal); R11.2 Nausea with vomiting, unspecified; Z88.1 Allergy status to other antibiotic agents
CPT/HCPCS: 36415; 74176; 76377; 80048; 80076; 81003; 81015; 81025; 83690; 85025; 96361; 96374; 96375; 99284; J2405; J7030

== ENCOUNTER 2019-02-01 09:31 | Emergency (ER) | payer OTHER ==
--- OUTSIDE RECORDS SUMMARY | 2019-02-01 09:33 | XMS REPORT ---
[...] End Status Dosage System Date Date Norethindrone [facility] [address]-56 Active not defined PredniSONE [facility] 75496198305 20 MG Orally Active 1 tablet BID Azithromycin [facility] 35271485941 250 MG Orally Active 2 tablets Once a day on the first day, then 1 tablet daily for 4 days Results No Known Results Summary Purpose eClinicalWorks Submission
--- OUTSIDE RECORDS SUMMARY | 2019-02-01 09:33 | XMS REPORT ---
[...] End Status Dosage System Date Date PredniSONE [facility] 43555209765 20 MG Orally Active 1 tablet BID Azithromycin [facility] 44485209680 250 MG Orally Active 2 tablets Once a day on the first day, then 1 tablet daily for 4 days Norethindrone [facility] [address]-77 Active not defined Results No Known Results Summary Purpose eClinicalWorks Submission
--- OUTSIDE RECORDS SUMMARY | 2019-02-01 09:34 | XMS REPORT ---
[...] Date End Date Status Dosage Bactrim DS [facility] 30886996085 800-160 MG Orally May 14, May 24, Active 1 tablet Twice a day 2017 2017 Results No Known Results Summary Purpose eClinicalWorks Submission
--- OUTSIDE RECORDS SUMMARY | 2019-02-01 09:34 | XMS REPORT ---
[...] Status Dosage System Date Date Tramadol HCl [facility] 87779306789 50 MG Orally March Active 1 tablet Once daily in , as needed evening 2017 2017 for severe pain Norethindrone [facility] [address]-56 Active not defined PredniSONE [facility] 33377522642 20 MG Orally Active 1 tablet BID Azithromycin [facility] 70634583206 250 MG Orally Active 2 tablets Once a day on the first day, then 1 tablet daily for 4 days Cyclobenzaprine [facility] 61076201815 5 MG Orally March Active 1 tablet HCl Once daily in , as needed evening 2017 2017 for muscle cramps/danyelle n ProAir HFA [facility] 20600335993 108 (90 Base) April Active 2 puffs as MCG/ACT 17, needed for Inhalation 2017 sob/wheezi every 4-6 hrs ng Diflucan [facility] 67461577881 150 MG Orally April Active as 1 tablet now; 17, 19, then repeat 2017 2017 after completing abx. Clarithromycin [facility] 51266859409 500 MG Orally April Active 1 tablet every 12 hrs 2017 Results Name Result Date Reference Range Unit Abnormality Flag STREP A RAPID ----Result Negative [id number] Summary Purpose eClinicalWorks Submission
--- OUTSIDE RECORDS SUMMARY | 2019-02-01 09:34 | XMS REPORT ---
[...] Medications Results No Known Results Summary Purpose [facility] Submission
--- OUTSIDE RECORDS SUMMARY | 2019-02-01 09:34 | XMS REPORT ---
[...] Status Dosage System Date Date Tramadol HCl [facility] 62285619483 50 MG Orally March Active 1 tablet Once daily in , as needed evening 2017 2017 for severe pain Azithromycin [place] 98742262362 250 MG Orally Active 2 tablets Once a day on the first day, then 1 tablet daily for 4 days Cyclobenzaprine ND 76004168796 5 MG Orally March Active 1 tablet HCl Once daily in , as needed evening 2017 2017 for muscle cramps/pa in PredniSONE ND 96974706254 20 MG Orally Active 1 tablet BID Norethindrone [facility] [address]-29 Active not defined Results No Known Results Summary Purpose eClinicalPureSafe water systems Submission
--- OUTSIDE RECORDS SUMMARY | 2019-02-01 09:34 | XMS REPORT ---
[...] End Status Dosage System Date Date PredniSONE [facility] 72212194093 20 MG Orally Active 1 tablet BID Norethindrone [facility] [address]-75 Active not defined Robaxin-750 [facility] 02893452701 750 MG Orally Sept Oct Active 1 tablet Twice daily , 12, as needed 2017 2017 for muscle cramping/ pain Tramadol HCl [facility] 74996217120 50 MG Orally Sept Oct Active 1 tablet Twice daily 12, 12, as needed 2017 2017 for severe pain Azithromycin [facility] 67470874837 250 MG Orally Active 2 tablets Once a day on the first day, then 1 tablet daily for 4 days Meloxicam [facility] 41731720568 15 MG Orally Sept Oct Active 1/2 to 1 Once a day 12, 12, tablet 2017 2017 (as needed for pain; take with food) ProAir HFA [facility] 37264361354 108 (90 Base) April Active 2 puffs MCG/ACT 17, as needed Inhalation 2017 for every 4-6 hrs sob/wheez ing Cyclobenzaprine [facility] 27273593438 5 MG Orally Sept Inactive 1 tablet HCl Once daily in 12, as needed evening 2017 for muscle cramps/pa in Results No Known Results Summary Purpose eClinicalWorks Submission
[2019-02-01] MEDS ORDERED: ASPIRIN 81 MG CHEWABLE TABLET ONE (10:06)
[2019-02-01 10:08] LABS: Absolute Lymphocytes (CBC) 0.9 K/uL (0.7-4.9); Absolute Monocytes 0.4 K/uL (0.1-1.3); Absolute Neutrophil 7.6 K/uL (1.8-8.0); Basophils % 0.5 % (0-1.3); Eosinophils % 0.6 % (0-4.4); Hematocrit 41.5 % (36.0-45.0); Lymphocytes % 10.4 % (15.3-44.8); MPV 7.9 fL (7.6-11.3); Monocytes % 4.1 % (3.3-12.3); RBC Red Blood Cell Count 4.72 M/uL (3.86-4.86)
[2019-02-01] MEDS ORDERED: MORPHINE 4 MG/ML SYR ONE (10:20)
[2019-02-01] MEDS ORDERED: ONDANSETRON 4 MG/2 ML VIAL ONE ×2 (10:20→11:31)
[2019-02-01 10:27] LABS: BUN Blood Urea Nitrogen 14 mg/dL (7-18); Bicarbonate 22 mmol/L (21-32); Glucose Level 109 mg/dL (74-106); NT PRO-BNP 50 pg/mL (<125); Potassium 4.1 mmol/L (3.5-5.1); Sodium Level 139 mmol/L (136-145); Troponin (Emerg Dept Use Only) < 0.02 ng/mL (0.0-0.045)
--- NOTE | 2019-02-01 11:17 | RAD REPORT ---
EXAM DESCRIPTION: Ryne Single View02/01/2019 11:00 am CLINICAL HISTORY: Chest pain COMPARISON: 2016 FINDINGS: The lungs appear clear of acute infiltrate. The heart is borderline enlarged IMPRESSION: No acute abnormalities displayed
[2019-02-01] MEDS ORDERED: ACETAMINOPHEN 325 MG TABLET ONE (11:53)
--- NOTE | 2019-02-01 13:31 | ER ---
Nurse's Notes [facility] Name: Aimee Randolph Age: 38 yrs Sex: Female : 1980 Arrival Date: 02/01/2019 Time: 09:33 Bed 20 Private MD: Brittnee Holcomb Diagnosis: Chest pain, unspecified Presentation: 02/01 09:34 Presenting complaint: Patient states: midsternal chest pain started about 0300 today sv after waking up, went for a morning walk and started having chest tightness, denies SOB. When taking pt back to a room c/o dizziness when standing. Transition of care: patient was not received from another setting of care. Onset of symptoms was February 01, 2019. Initial Sepsis Screen: Does the patient meet any 2 criteria? No. Patient's initial sepsis screen is negative. Does the patient have a suspected source of infection? No. Patient's initial sepsis screen is negative. Care prior to arrival: None. 09:34 Method Of Arrival: Wheelchair sv 09:34 Acuity: LAURITA 2 sv Triage Assessment: 09:34 General: Appears in no apparent distress. uncomfortable, well developed, Behavior is sv calm, cooperative, appropriate for age. Pain: Complains of pain in chest Pain currently is 7 out of 10 on a pain scale. Quality of pain is described as tightness Pain began 0300. Neuro: Level of Consciousness is awake, alert, obeys commands, Oriented to person, place, time, situation, Moves all extremities. Full function Reports dizziness. Respiratory: Respiratory effort is even, unlabored, Respiratory pattern is regular, symmetrical, Denies shortness of breath. Historical: - Allergies: 09:41 Ceclor; sv 09:41 Levaquin; sv - PMHx: 09:41 None; sv - PSHx: 09:41 heart surgery to correct aoritc valve at 6 years old; ; Cholecystectomy; sv - Immunization history:: Adult Immunizations up to date, Flu vaccine is up to date. - Social history:: Smoking status: Patient/guardian denies using tobacco. - Ebola Screening: : No symptoms or risks identified at this time. Screenin:40 Abuse screen: Denies threats or abuse. Denies injuries from another. Nutritional ss screening: No deficits noted. Tuberculosis screening: Never had TB. Fall Risk None identified. Assessment: 09:40 General: Appears uncomfortable, Behavior is calm, cooperative, Denies fever, feeling ss ill, fatigue, chills. Pain: Complains of pain in chest Pain does not radiate. Pain currently is 8 out of 10 on a pain scale. Quality of pain is described as "it's sharp, but then it feels tight. It comes and goes." Pain began 0300 today. Pt reports she went on a morning walk hoping it would get better, but it did not. Neuro: Level of Consciousness is awake, alert, obeys commands, Oriented to person, place, time, situation. Cardiovascular: Reports Heart tones S1 S2 present Capillary refill < 3 seconds is brisk in bilateral fingers Patient's skin is warm and dry. Respiratory: Reports sensation of not being able to take in a full breath when pain comes on Airway is patent Respiratory effort is even, unlabored, Respiratory pattern is regular, symmetrical, Breath sounds are clear bilaterally. Denies cough. GI: Patient currently denies abdominal pain, diarrhea, intolerance of food, vomiting. : No signs and/or symptoms were reported regarding the genitourinary system. EENT: Nares are clear Oral mucosa is moist. Throat is clear Denies. Derm: Skin is intact, is healthy with good turgor, Skin is pink, warm \\T\\ dry. normal. Musculoskeletal: Circulation, motion, and sensation intact. Range of motion: intact in all extremities, Swelling absent. 10:30 Reassessment: Patient appears in no apparent distress at this time. Patient and/or em family updated on plan of care and expected duration. Pain level reassessed. Patient is alert, oriented x 3, equal unlabored respirations, skin warm/dry/pink. 11:10 Reassessment: reports being nauseous, provider notified, new medication orders received.em 11:30 Reassessment: Patient appears in no apparent distress at this time. reports morphine em has not helped, request Tylenol, provider notified, new medication orders received. 13:02 Reassessment: Patient appears in no apparent distress at this time. Patient and/or em family updated on plan of care and expected duration. Pain level reassessed. Patient is alert, oriented x 3, equal unlabored respirations, skin warm/dry/pink. reports being nauseated at this time, reports she does not want any medication, will continue to monitor. Vital Signs: 09:41 BP 148 / 89; Pulse 88; Resp 20; Temp 98.8; Pulse Ox 97% ; Weight 86.18 kg; Height 5 ft. sv 0 in. (152.40 cm); Pain 8/10; 10:31 BP 130 / 74; Pulse 59; Resp 18; Pulse Ox 98% on R/A; Pain 7/10; em 11:49 BP 126 / 79; Pulse 64; Resp 18; Pulse Ox 99% on R/A; Pain 7/10; em 13:07 BP 131 / 62; Pulse 53; Resp 19; Pulse Ox 99% on R/A; Pain 5/10; em 09:41 Body Mass Index 37.11 (86.18 kg, 152.40 cm) sv ED Course: 09:33 Patient arrived in ED. as 09:33 Brittnee Holcomb MD is Private Physician. as 09:34 Sherri García FNP-C is [facility]. kb 09:34 Jose Maria Han MD is Attending Physician. kb 09:40 Triage completed. sv 09:40 Patient has correct armband on for positive identification. Bed in low position. Call ss light in reach. monitor technician on. Pulse ox on. NIBP on. Warm blanket given. 09:40 EKG done, by picking tech. reviewed by Sherri GALINDO. at1 09:41 Arm band placed on. sv 09:48 Inserted saline lock: 20 gauge in right forearm, using aseptic technique. Blood ss collected. Patient maintains SpO2 saturation greater than 95% on room air. 09:55 Leeanna Sullivan, ROULA is Primary Nurse. ss 11:00 XRAY Chest (1 view) In Process Unspecified. EDMS 11:03 X-ray completed. Portable x-ray completed in exam room. Patient tolerated procedure mh1 well. 12:42 EKG done, by picking tech. reviewed by Sherri GALINDO. sm3 12:53 Repeat lab(s) drawn. by me, sent to lab. ms 13:44 No provider procedures requiring assistance completed. IV discontinued, intact, em bleeding controlled, No redness/swelling at site. Pressure dressing applied. Administered Medications: 09:52 Drug: Aspirin Chewable Tablet 324 mg Route: PO; ss 11:13 Follow up: Response: No adverse reaction em 10:12 Drug: Zofran 4 mg Route: IVP; Site: right forearm; ss 11:13 Follow up: Response: No adverse reaction; Nausea is decreased em 10:15 Drug: morphine 4 mg Route: IVP; Site: right forearm; ss 11:38 Follow up: Response: No adverse reaction; Pain is decreased em 11:20 Drug: Zofran 4 mg Route: IVP; Site: right forearm; em 13:00 Follow up: Response: No adverse reaction; Nausea unchanged em 11:42 Drug: Tylenol 650 mg Route: PO; em 13:04 Follow up: Response: No adverse reaction; Pain is decreased em Outcome: 13:30 Discharge ordered by . kb 13:44 Discharged to home ambulatory. em 13:44 Condition: good 13:44 Discharge instructions given to patient, Instructed on discharge instructions, follow up and referral plans. Demonstrated understanding of instructions, follow-up care. 13:45 Patient left the ED. em Signatures: Dispatcher [employer] EDTN Sherri García, HIGH COURT JUSTICE-C HIGH COURT JUSTICE-CkBuffy El, RN RN Nora Tinajero 1 Mk Sykes, KNOWLEDGE MANAGER KNOWLEDGE MANAGER em Mary Olivarez Maria ms Smirch, Shelby, RN RN ss Osiris Gavin, sorting machine attendant EKG [facility] Janki Peraza 3 Corrections: (The following items were deleted from the chart) 10:15 10:15 morphine 4 mg IVP in right antecubital ss ss
--- NOTE | 2019-02-01 13:31 | EDPHYS ---
Physician Documentation [facility] Name: Aimee Randolph Age: 38 yrs Sex: Female : 1980 Arrival Date: 02/01/2019 Time: 09:33 Bed 20 Private MD: Brittnee Holcomb ED Physician Jose Maria Han HPI: 02/01 09:59 This 38 yrs old Female presents to ER via Wheelchair with complaints of Chest kb Tightness, Headache. 09:59 The patient or guardian reports chest pain that is located primarily in the chest kb diffusely. The pain does not radiate. Associated signs and symptoms: The patient has no apparent associated signs or symptoms. The chest pain is described as tightness. Duration: The patient or guardian reports a single episode, that is still ongoing. Modifying factors: The symptoms are alleviated by nothing. the symptoms are aggravated by nothing. Severity of pain: At its worst the pain was moderate in the emergency department the pain is unchanged. The patient has experienced similar episodes in the past, a few times. The patient has not recently seen a physician. Pt reports chest pain when she woke up this morning. She went for her morning walk and it got a little worse. States she got home, took a shower and then had chest tightness. Denies associated symptoms, but reports the tightness makes it feel like she can't take a deep breath. Historical: - Allergies: 09:41 Ceclor; sv 09:41 Levaquin; sv - PMHx: 09:41 None; sv - PSHx: 09:41 heart surgery to correct aoritc valve at 6 years old; ; Cholecystectomy; sv - Immunization history:: Adult Immunizations up to date, Flu vaccine is up to date. - Social history:: Smoking status: Patient/guardian denies using tobacco. - Ebola Screening: : No symptoms or risks identified at this time. ROS: 09:57 Constitutional: Negative for fever, chills, and weight loss, ENT: Negative for injury, kb pain, and discharge, Neck: Negative for injury, pain, and swelling, Respiratory: Negative for shortness of breath, cough, wheezing, and pleuritic chest pain, Abdomen/GI: Negative for abdominal pain, nausea, vomiting, diarrhea, and constipation, Back: Negative for injury and pain, : Negative for injury, bleeding, discharge, and swelling, MS/Extremity: Negative for injury and deformity, Skin: Negative for injury, rash, and discoloration. 09:57 Cardiovascular: Positive for chest pain, Negative for edema, orthopnea, palpitations, paroxysmal nocturnal dyspnea. 09:57 Neuro: Positive for headache. Exam: 09:59 Constitutional: This is a well developed, well nourished patient who is awake, alert, kb and in no acute distress. Head/Face: Normocephalic, atraumatic. ENT: Nares patent. No nasal discharge, no septal abnormalities noted. Tympanic membranes are normal and external auditory canals are clear. Oropharynx with no redness, swelling, or masses, exudates, or evidence of obstruction, uvula midline. Mucous membranes moist. Neck: Trachea midline, no thyromegaly or masses palpated, and no cervical lymphadenopathy. Supple, full range of motion without nuchal rigidity, or vertebral point tenderness. No Meningismus. Chest/axilla: Normal chest wall appearance and motion. Nontender with no deformity. No lesions are appreciated. Cardiovascular: Regular rate and rhythm with a normal S1 and S2. No gallops, murmurs, or rubs. Normal PMI, no JVD. No pulse deficits. Respiratory: Lungs have equal breath sounds bilaterally, clear to auscultation and percussion. No rales, rhonchi or wheezes noted. No increased work of breathing, no retractions or nasal flaring. Abdomen/GI: Soft, non-tender, with normal bowel sounds. No distension or tympany. No guarding or rebound. No evidence of tenderness throughout. Back: No spinal tenderness. No costovertebral tenderness. Full range of motion. Skin: Warm, dry with normal turgor. Normal color with no rashes, no lesions, and no evidence of cellulitis. MS/ Extremity: Pulses equal, no cyanosis. Neurovascular intact. Full, normal range of motion. Neuro: Awake and alert, GCS 15, oriented to person, place, time, and situation. Cranial nerves II-XII grossly intact. Motor strength 5/5 in all extremities. Sensory grossly intact. Cerebellar exam normal. Normal gait. 10:02 ECG was reviewed by the Attending Physician. Vital Signs: 09:41 BP 148 / 89; Pulse 88; Resp 20; Temp 98.8; Pulse Ox 97% ; Weight 86.18 kg; Height 5 ft. sv 0 in. (152.40 cm); Pain 8/10; 10:31 BP 130 / 74; Pulse 59; Resp 18; Pulse Ox 98% on R/A; Pain 7/10; em 11:49 BP 126 / 79; Pulse 64; Resp 18; Pulse Ox 99% on R/A; Pain 7/10; em 13:07 BP 131 / 62; Pulse 53; Resp 19; Pulse Ox 99% on R/A; Pain 5/10; em 09:41 Body Mass Index 37.11 (86.18 kg, 152.40 cm) sv MDM: 09:35 Patient medically screened. kb 09:58 Data reviewed: vital signs, nurses notes. Data interpreted: Pulse oximetry: on room air kb is 97 %. Interpretation: normal. 12:59 HERIBERTO Risk Score: TOTAL SCORE = 0. kb 13:29 Data reviewed: I have discussed the patient's presentation/case with the attending Emergency Department Physician;. Counseling: I had a detailed discussion with the patient and/or guardian regarding: the historical points, exam findings, and any diagnostic results supporting the discharge/admit diagnosis, lab results, radiology results, the need for outpatient follow up, a family practitioner, to return to the emergency department if symptoms worsen or persist or if there are any questions or concerns that arise at home. Special discussion: Based on the patient's history, exam, and Dx evaluation, there is no indication for emergent intervention or inpatient Tx. It is understood by the patient/guardian that if the Sx's persist or worsen they need to return immediately for re-evaluation. 02/01 09:37 Order name: Basic Metabolic Panel; Complete Time: 10:29 kb 02/01 09:37 Order name: CBC with Diff; Complete Time: 10:29 kb 02/01 09:37 Order name: Magnesium; Complete Time: 10:29 kb 02/01 09:37 Order name: NT PRO-BNP; Complete Time: 10:29 kb 02/01 09:37 Order name: Troponin (emerg Dept Use Only); Complete Time: 10:29 kb 02/01 09:37 Order name: D-Dimer; Complete Time: 10:29 kb 02/01 09:37 Order name: XRAY Chest (1 view); Complete Time: 11:19 kb 02/01 09:37 Order name: EKG; Complete Time: 09:38 kb 02/01 12:39 Order name: Troponin (emerg Dept Use Only); Complete Time: 13:21 kb 02/01 09:37 Order name: Cardiac monitoring; Complete Time: 09:55 kb 02/01 09:37 Order name: EKG - Nurse/Tech; Complete Time: 09:55 kb 02/01 09:37 Order name: IV Saline Lock; Complete Time: 09:55 kb 02/01 09:37 Order name: Labs collected and sent; Complete Time: 09:55 kb 02/01 09:37 Order name: O2 Per Protocol; Complete Time: 09:56 kb 02/01 09:37 Order name: O2 Sat Monitoring; Complete Time: 09:56 kb 02/01 11:22 Order name: Repeat Cardiac Enzymes at: 1230; Complete Time: 12:53 kb 02/01 12:39 Order name: EKG; Complete Time: 12:46 kb 02/01 12:39 Order name: EKG - Nurse/Tech; Complete Time: 12:40 kb EC:02 Rate is 72 beats/min. Rhythm is regular, Normal Sinus Rhythm. VT interval is normal at kb 170 msec. QRS interval is normal at 116 msec. QT interval is normal at 396 msec. Administered Medications: 09:52 Drug: Aspirin Chewable Tablet 324 mg Route: PO; ss 11:13 Follow up: Response: No adverse reaction em 10:12 Drug: Zofran 4 mg Route: IVP; Site: right forearm; ss 11:13 Follow up: Response: No adverse reaction; Nausea is decreased em 10:15 Drug: morphine 4 mg Route: IVP; Site: right forearm; ss 11:38 Follow up: Response: No adverse reaction; Pain is decreased em 11:20 Drug: Zofran 4 mg Route: IVP; Site: right forearm; em 13:00 Follow up: Response: No adverse reaction; Nausea unchanged em 11:42 Drug: Tylenol 650 mg Route: PO; em 13:04 Follow up: Response: No adverse reaction; Pain is decreased em Disposition: 15:11 Co-signature as Attending Physician, Jose Maria Han MD. rn Disposition: 02/01/19 13:30 Discharged to Home. Impression: Chest pain, unspecified. - Condition is Stable. - Discharge Instructions: Nonspecific Chest Pain, [id number]. - Medication Reconciliation Form, Thank You Letter, Antibiotic Education, Prescription Opioid Use form. - Follow up: Emergency Department; When: As needed; Reason: Worsening of condition. Follow up: Private Physician; When: 2 - 3 days; Reason: Recheck today's complaints, Continuance of care, Re-evaluation by your physician. Signatures: Dispatcher [employer] EDAR Sherri García, ANGEL-Brianda SAFETY SEALER-Buffy Zayas, RN RN Mk Sykes, MOTOR VEHICLE LECTURER MOTOR VEHICLE LECTURER em Jose Maria Han MD MD rn Smirch, Shelby, RN RN ss Corrections: (The following items were deleted from the chart) 13:45 13:30 02/01/2019 13:30 Discharged to Home. Impression: Chest pain, unspecified. em Condition is Stable. Forms are Medication Reconciliation Form, Thank You Letter, Antibiotic Education, Prescription Opioid Use. Follow up: Emergency Department; When: As needed; Reason: Worsening of condition. Follow up: Private Physician; When: 2 - 3 days; Reason: Recheck today's complaints, Continuance of care, Re-evaluation by your physician. kb
[2019-02-01 13:56] VITALS: TEMP 98.8
[2019-02-01 13:59] VITALS: O2SAT 99
[2019-02-01 14:00] VITALS: BP 131/62
--- NOTE | 2019-02-01 15:15 | EKG ---
Test Date: 2019-02-01 Test Time: 12:42:38 Bindery Machine Tender: KAMI MEASUREMENT RESULTS: Intervals: Rate: 61 ME: 168 QRSD: 114 QT: 430 QTc: 432 [place]: P: 37 ME: 168 QRS: -70 T: 25 INTERPRETIVE STATEMENTS: Normal sinus rhythm Left axis Septal infarct, age undetermined Abnormal ECG Compared to ECG 02/01/2019 09:40:16 Myocardial infarct finding still present Electronically Signed On 02-01-19 15:14:44 CDT by Rajat Tirado
--- NOTE | 2019-02-01 15:16 | EKG ---
Test Date: 2019-02-01 Test Time: 09:40:16 Retail Service Technician: AG/S MEASUREMENT RESULTS: Intervals: Rate: 72 MT: 170 QRSD: 116 QT: 396 QTc: 433 [place]: P: 36 MT: 170 QRS: -66 T: 25 INTERPRETIVE STATEMENTS: Normal sinus rhythm Left axis deviation Anterior infarct, age undetermined Abnormal ECG Compared to ECG 03/09/2017 22:09:45 No significant changes Electronically Signed On 02-01-19 15:15:44 CDT by Rajat Tirado
== END 2019-02-01 13:45 | disposition home or self-care (01) ==
LOC: ER 09:31
DX: R07.9 Chest pain, unspecified (principal); Z88.1 Allergy status to other antibiotic agents
CPT/HCPCS: 36415; 71045; 80048; 83735; 83880; 84484; 85025; 85379; 93005; 96374; 96375; 99285; J2405

== ENCOUNTER 2019-09-06 11:03 | Emergency (ER) | payer SELFPAY ==
--- OUTSIDE RECORDS SUMMARY | 2019-09-06 11:06 | XMS REPORT ---
:1980 Author Organization e[employer] Care Team Providers Name Role Phone Brittnee Holcomb Provider Role Unavailable Allergies No Known Allergies Problems Problem Type Condition Code Onset Dates Condition Status Problem Acute pyelonephritis N10 Active Problem Lumbago with sciatica, right side M54.41 Active Problem Other chronic pain G89.29 Active Problem Fatigue, unspecified type R53.83 Active Problem Allergic rhinitis, unspecified J30.9 Active seasonality, unspecified trigger Problem Hair loss L65.9 Active Problem Lumbago with sciatica M54.40 Active Problem Numbness in right leg R20.0 Active Problem Status post fall Z91.81 Active Problem Low back pain M54.5 Active Problem Environmental allergies Z91.09 Active Problem Right-sided low back pain with M54.41 Active right-sided sciatica, unspecified chronicity Problem Obesity (BMI 30-39.9) E66.9 Active Problem Sepsis, due to unspecified organism A41.9 Active Problem Dietary surveillance and counseling Z71.3 Active Problem Trichomonas infection A59.9 Active Medications No Known Medications Results No Known Results Summary Purpose eClinicalWorks Submission
[2019-09-06] MEDS ORDERED: CYCLOBENZAPRINE 10 MG TAB ONE (12:37)
[2019-09-06] MEDS ORDERED: IBUPROFEN 200 MG TAB PO ONE (12:38)
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
[2019-09-06 15:43] VITALS: TEMP 98; O2SAT 100
[2019-09-06 15:45] VITALS: BP 121/75
== END 2019-09-06 13:35 | disposition home or self-care (01) ==
LOC: ER 11:03
DX: M54.2 Cervicalgia (principal); V49.49XA Driver injured in collision with other motor vehicles in traffic accident, initial encounter; Z88.1 Allergy status to other antibiotic agents; Z91.040 Latex allergy status
CPT/HCPCS: 70450; 72125; 99283

== ENCOUNTER 2020-04-18 20:23 | Emergency (ER) | payer OTHER ==
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
[2020-04-19 00:35] LABS: Urine Blood NEGATIVE (NEG); Urine Glucose NEGATIVE (NEG); Urine Protein NEGATIVE (NEG); Urine Specific Gravity >1.030 (1.005-1.030)
[2020-04-19] MEDS ORDERED: NA CHLORIDE 0.9% 1,000 ML ONE ×2 (00:35→02:39)
[2020-04-19 00:53] LABS: Urine Bacteria 20-50 /HPF (<20); Urine Culture Reflex Order REFLEXED; Urine Mucus 2+ /HPF (NONE SEEN)
[2020-04-19 01:24] LABS: Absolute Lymphocytes (CBC) 1.7 K/uL (0.7-4.9); Basophils % 0.7 % (0-1.3); Hematocrit 37.7 % (36.0-45.0); Lymphocytes % 26.4 % (15.3-44.8); MPV 8.7 fL (7.6-11.3); RBC Red Blood Cell Count 4.44 M/uL (3.86-4.86)
[2020-04-19 01:42] LABS: Potassium 3.8 mmol/L (3.5-5.1)
[2020-04-19] MEDS ORDERED: MEPERIDINE HCL 50 MG/ML ONE (02:04)
[2020-04-19 03:12] LABS: CSF Glucose 51 mg/dL (40-70)
[2020-04-19 04:03] LABS: Appearance CLEAR (CLEAR); Body Fluid Source CSF; Body Fluid WBC 2 /mm^3; Color of fluid Colorless (COLORLESS); Fluid Total Volume 8 ml
--- NOTE | 2020-04-19 04:41 | EDPHYS ---
Physician Documentation [facility] Name: Aimee Randolph Age: 39 yrs Sex: Female : 1980 Arrival Date: 04/18/2020 Time: 20:26 Bed 14 Private MD: Brittnee Holcomb ED Physician Cornelio Caro HPI: 04/18 23:45 This 39 yrs old Female presents to ER via Ambulatory with complaints of Fever, cp Headache, Low Back Pain. 23:45 The patient reports fever, that was measured at 102 degrees Fahrenheit. cp 23:45 Onset: The symptoms/episode began/occurred 5 day(s) ago. cp 23:45 Associated signs and symptoms: Pertinent positives: cough, neck and back pain, cp Pertinent negatives: diarrhea, vomiting. 23:45 Patient reports she was tested for COVID-19 yesterday and is awaiting results of test. cp Historical: - Allergies: 20:45 Ceclor; ll1 20:45 Latex, Natural Rubber; ll1 20:45 Levaquin; ll1 - PSHx: 20:45 Cholecystectomy; ; heart surgery to correct aoritc valve at 6 years old; ll1 - Immunization history:: Flu vaccine is up to date. - Social history:: Smoking status: Patient denies any tobacco usage or history of. Patient/guardian denies using alcohol, street drugs, tobacco products. ROS: 23:50 Constitutional: Positive for body aches, Negative for fever, poor PO intake. cp 23:50 Eyes: Negative for injury, pain, redness, and discharge. cp 23:50 ENT: Positive for sore throat, Negative for ear pain, difficulty swallowing, difficulty handling secretions. 23:50 Neck: Positive for pain with movement, tenderness. 23:50 Cardiovascular: Negative for chest pain, palpitations. 23:50 Respiratory: Positive for cough, with no reported sputum, Negative for shortness of breath, wheezing. 23:50 Abdomen/GI: Negative for abdominal pain, nausea, vomiting, and diarrhea. 23:50 Skin: Negative for rash. 23:50 Neuro: Positive for headache, Negative for altered mental status, weakness. 23:50 All other systems are negative. Exam: 23:58 Constitutional: The patient appears in no acute distress, alert, awake, cp non-diaphoretic, non-toxic, well developed, well nourished, uncomfortable. 23:58 Head/Face: Normocephalic, atraumatic. cp 23:58 Eyes: Periorbital structures: appear normal, Pupils: equal, round, and reactive to light and accomodation, Extraocular movements: intact throughout, Conjunctiva: normal, no exudate, no injection, Sclera: no appreciated abnormality, Lids and lashes: appear normal, bilaterally. 23:58 ENT: External ear(s): are unremarkable, Ear canal(s): are normal, clear, TM's: dullness, bilaterally, Nose: is normal, Mouth: is normal, Posterior pharynx: Airway: no evidence of obstruction, patent, Tonsils: no enlargement, no exudate, swelling, is not appreciated, erythema, that is mild, exudate, is not appreciated. 23:58 Neck: ROM/movement: pain, that is mild, with flexion, limited range of motion, is not appreciated, nuchal rigidity, is not appreciated, Lymph nodes: no appreciated lymphadenopathy. 23:58 Chest/axilla: Inspection: normal, Palpation: is normal, no crepitus, no tenderness. 23:58 Cardiovascular: Rate: normal, Rhythm: regular, Edema: is not appreciated, JVD: is not appreciated. 23:58 Respiratory: the patient does not display signs of respiratory distress, Respirations: normal, no use of accessory muscles, no retractions, no splinting, no tachypnea, labored breathing, is not present, Breath sounds: bronchial sounds, that are mild, are heard diffusely, decreased breath sounds, are not appreciated, rhonchi, are not appreciated, stridor, is not appreciated, wheezing: is not appreciated. 23:58 Abdomen/GI: Inspection: abdomen appears normal, Bowel sounds: active, all quadrants, Palpation: abdomen is soft and non-tender, in all quadrants. 23:58 Back: pain, that is moderate, of the low back area and mid back area, ROM is painful, with all movement. 23:58 Skin: no rash present. Vital Signs: 20:42 BP 154 / 89; Pulse 81; Resp 18; Temp 98.5; Pulse Ox 98% ; Pain 10/10; ll1 04/19 00:00 BP 145 / 79; Pulse 46; Resp 18; Pulse Ox 100% on R/A; vc 01:00 BP 138 / 87; Pulse 48; Resp 18; Pulse Ox 100% on R/A; vc 03:00 BP 129 / 80; Pulse 46; Resp 18; Pulse Ox 100% on R/A; vc 04:07 BP 120 / 71; Pulse 52; Resp 19; Temp 98.0(TE); Pulse Ox 96% on R/A; Pain 0/10; mt2 04:30 BP 128 / 78; Pulse 73; Resp 18; Pulse Ox 97% on R/A; Pain 0/10; mt2 Procedures: 02:35 Lumbar Puncture: Patient placed in sitting position. Prepped with Betadine. Draped cp using sterile technique. Collected 6 ml's of clear fluid. Sample sent to lab. Puncture site dressed with band aid, Patient tolerated well. MDM: 04/18 23:21 Patient medically screened. 04/19 04:37 Differential diagnosis: viral Infection, bacterial infection, URI, meningitis. Data [facility] reviewed: vital signs, nurses notes, lab test result(s), CBC, electrolytes, CSF. Data interpreted: Pulse oximetry: on room air is 96 %. Interpretation: normal. Counseling: I had a detailed discussion with the patient and/or guardian regarding: the historical points, exam findings, and any diagnostic results supporting the discharge/admit diagnosis, lab results, radiology results, the need for outpatient follow up, to return to the emergency department if symptoms worsen or persist or if there are any questions or concerns that arise at home. Response to treatment: the patient's symptoms have resolved after treatment, the patient's blood pressure is in an acceptable range, mental status has returned to baseline, the patient no longer shows bradycardia, the patient is not short of breath, the patient is not tachycardic, the patient's pain is gone, the patient's temperature has normalized. 04/18 23:40 Order name: CBC with Diff; Complete Time: 01:43 cp 04/18 23:40 Order name: BMP; Complete Time: 01:43 04/19 01:43 Interpretation: Normal except: CL 108; GFR 73. 04/18 23:47 Order name: Urine Microscopic Only cp 04/18 23:47 Order name: Influenza Screen (a \T\ B); Complete Time: 03:14 04/19 03:14 Interpretation: Reviewed. 04/18 23:47 Order name: Strep; Complete Time: 03:14 04/19 03:14 Interpretation: Reviewed. 04/18 23:47 Order name: Procalcitonin; Complete Time: 03:14 04/19 03:14 Interpretation: Reviewed. 04/18 23:47 Order name: Lactate; Complete Time: 01:48 04/18 23:47 Order name: Urine Microscopic Only; Complete Time: 01:07 [facility] 04/19 01:08 Interpretation: Normal except: UWBC 5-10; URBC 5-10; UBACT 20-50; SQEPI 10-20. 04/19 00:26 Order name: Urine Dipstick--Ancillary (enter results); Complete Time: 01:07 04/19 00:26 Order name: Urine --Ancillary (enter results); Complete Time: 01:07 04/19 00:54 Order name: Urine Culture [facility] 04/19 01:49 Order name: Spinal Fluid Profile; Complete Time: 04:22 04/19 02:12 Order name: Throat Culture [facility] 04/19 04:34 Order name: CSF Bacterial Antigens (Tube 1; Complete Time: 23:40 [facility] 04/18 23:40 Order name: IV; Complete Time: 01:05 04/18 23:47 Order name: Urine Dipstick-Ancillary (obtain specimen); Complete Time: 00:27 04/18 23:47 Order name: Urine Test (obtain specimen); Complete Time: 00:27 04/18 23:47 Order name: XRAY Chest (1 view); Complete Time: 23:40 04/18 23:47 Order name: CT Head Brain wo Cont 04/19 01:52 Order name: Lumbar Puncture Setup; Complete Time: 02:41 04/19 01:52 Order name: Lumbar Puncture Consent; Complete Time: 02:41 cp Administered Medications: 01:05 Drug: NS 0.9% 1000 ml Route: IV; Rate: 1 bolus; Site: right antecubital; vc 02:00 Follow up: Response: No adverse reaction; Marked relief of symptoms; IV Status: mt2 Completed infusion; IV Intake: 1000ml 02:05 Drug: Demerol - Meperidine 12.5 mg Route: IVP; Site: right antecubital; vc 02:42 Follow up: Response: No adverse reaction vc 02:42 Drug: NS 0.9% 1000 ml Route: IV; Rate: 1 bolus; Site: right antecubital; vc 04:05 Follow up: Response: No adverse reaction; Rate change 1000 ml; IV Status: Completed mt2 infusion; IV Intake: 1000ml 04:54 Follow up: Response: No adverse reaction; IV Status: Completed infusion; IV Intake: mt2 1000ml Disposition: 06:15 Co-signature as Attending Physician, Cornelio Caro MD. 7 Disposition: 04/19/20 04:40 Discharged to Home. Impression: Viral Syndrome. - Condition is Stable. - Discharge Instructions: Musculoskeletal Pain, Viral Respiratory Infection, [id number]. - Prescriptions for Ibuprofen 800 mg Oral Tablet - take 1 tablet by ORAL route every 8 hours As needed take with food; 15 tablet. - Medication Reconciliation Form, Thank You Letter, Antibiotic Education, Prescription Opioid Use form. - Follow up: Private Physician; When: 1 - 2 days; Reason: Worsening of condition, Recheck today's complaints, Continuance of care, Re-evaluation by your physician. - Problem is an ongoing problem. - Symptoms have improved. Signatures: Dispatcher [employer] EDMS Timoteo Pepper PA PA cp Calcote, Vanessa, RN RN vc Lewis, Lynsay, RN RN 1 Cornelio Caro MD MD [facility] Cony Toney RN RN mt2 Corrections: (The following items were deleted from the chart) 05:02 04:40 04/19/2020 04:40 Discharged to Home. Impression: Viral Syndrome. Condition is mt2 Stable. Forms are Medication Reconciliation Form, Thank You Letter, Antibiotic Education, Prescription Opioid Use. Follow up: Private Physician; When: 1 - 2 days; Reason: Worsening of condition, Recheck today's complaints, Continuance of care, Re-evaluation by your physician. Problem is an ongoing problem. Symptoms have improved. 7
--- NOTE | 2020-04-19 04:41 | ER ---
Nurse's Notes [facility] Name: Aimee Randolph Age: 39 yrs Sex: Female : 1980 Arrival Date: 04/18/2020 Time: 20:26 Bed 14 Private MD: Brittnee Holcomb Diagnosis: Viral Syndrome Presentation: 04/18 20:42 Chief complaint: Patient states: Cough, SIU, SOB, body aches, fatigue since Monday. No ll1 N/V/D. Fever 102 at home. covid swab pending, strep throat negative. Saw Dr. Lee yesterday for same symptoms. Coronavirus screen: Patient reports a cough. Patient reports shortness of breath or difficulty breathing. Patient reports a measured and/or subjective temperature greater than 100.4F. Patient denies travel on a cruise ship or to a country the [facility] currently lists as an affected area. Patient denies contact with known and/or suspected case of COVID-19. Proceed with normal triage. Ebola Screen: Patient denies travel to an Ebola-affected area in the 21 days before illness onset. Initial Sepsis Screen: Does the patient meet any 2 criteria? No. Patient's initial sepsis screen is negative. Risk Assessment: Do you want to hurt yourself or someone else? Patient reports no desire to harm self or others. Onset of symptoms was April 13, 2020. 20:42 Method Of Arrival: Ambulatory ll1 20:42 Acuity: LAURITA 3 ll1 23:00 Initial Sepsis Screen: Does the patient have a suspected source of infection? No. vc Patient's initial sepsis screen is negative. Triage Assessment: 23:00 Headache History: The patient has had previous headaches and this one is different than previous episodes, and this one is more severe than previous episodes. General: Appears in no apparent distress. uncomfortable, Behavior is calm, cooperative, appropriate for age. Pain: Complains of pain in top, front, and back of head. Pain does not radiate. Pain currently is 10 out of 10 on a pain scale. Pain began gradually, Also complains of nausea, photophobia. Neuro: Level of Consciousness is awake, obeys commands, lethargic, Oriented to person, place, time, situation, Appropriate for age. Historical: - Allergies: 20:45 Ceclor; ll1 20:45 Latex, Natural Rubber; ll1 20:45 Levaquin; ll1 - PSHx: 20:45 Cholecystectomy; ; heart surgery to correct aoritc valve at 6 years old; ll1 - Immunization history:: Flu vaccine is up to date. - Social history:: Smoking status: Patient denies any tobacco usage or history of. Patient/guardian denies using alcohol, street drugs, tobacco products. Screenin:00 Abuse screen: Denies threats or abuse. Nutritional screening: No deficits noted. vc Tuberculosis screening: No symptoms or risk factors identified. Fall Risk None identified. Assessment: 23:00 General: Appears in no apparent distress. uncomfortable, ill, Behavior is calm, vc cooperative, appropriate for age. Pain: Complains of pain in front, top, and back of head Pain does not radiate. Neuro: Level of Consciousness is awake, alert, obeys commands, Oriented to person, place, time, situation, Appropriate for age. Cardiovascular: Capillary refill < 3 seconds Patient's skin is warm and dry. Respiratory: Airway is patent Respiratory effort is even, unlabored, Respiratory pattern is regular, symmetrical. GI: No signs and/or symptoms were reported involving the gastrointestinal system. : No signs and/or symptoms were reported regarding the genitourinary system. 04/19 00:00 Reassessment: Patient appears in no apparent distress at this time. Patient and/or vc family updated on plan of care and expected duration. Pain level reassessed. Patient states symptoms have not improved. 01:00 Reassessment: Patient appears in no apparent distress at this time. Patient and/or vc family updated on plan of care and expected duration. Pain level reassessed. Patient states symptoms have not improved. 02:00 Reassessment: Patient appears in no apparent distress at this time. Patient and/or vc family updated on plan of care and expected duration. Pain level reassessed. Patient states symptoms have not improved. 02:30 Reassessment: Patient to lay flat on her back for the next 1-2 hours, verbalizes vc understanding. 03:30 Reassessment: No changes from previously documented assessment. Patient and/or family mt2 updated on plan of care and expected duration. Pain level reassessed. Patient denies pain at this time. 04:30 Reassessment: No changes from previously documented assessment. Patient and/or family mt2 updated on plan of care and expected duration. Pain level reassessed. Patient denies pain at this time. Vital Signs: 04/18 20:42 BP 154 / 89; Pulse 81; Resp 18; Temp 98.5; Pulse Ox 98% ; Pain 10/10; ll1 04/19 00:00 BP 145 / 79; Pulse 46; Resp 18; Pulse Ox 100% on R/A; vc 01:00 BP 138 / 87; Pulse 48; Resp 18; Pulse Ox 100% on R/A; vc 03:00 BP 129 / 80; Pulse 46; Resp 18; Pulse Ox 100% on R/A; vc 04:07 BP 120 / 71; Pulse 52; Resp 19; Temp 98.0(TE); Pulse Ox 96% on R/A; Pain 0/10; mt2 04:30 BP 128 / 78; Pulse 73; Resp 18; Pulse Ox 97% on R/A; Pain 0/10; mt2 ED Course: 04/18 20:26 Patient arrived in ED. do 20:27 Brittnee Holcomb MD is Private Physician. do 20:45 Triage completed. ll1 20:45 Arm band placed on Patient notified of wait time. ll1 23:00 Patient has correct armband on for positive identification. Bed in low position. Call vc light in reach. Pulse ox on. NIBP on. 23:19 Timoteo Pepper PA is PHCP. cp 23:19 Cornelio Caro MD is Attending Physician. cp 23:30 Inserted saline lock: 22 gauge in right antecubital area, using aseptic technique. vc Blood collected. 04/19 00:07 Ines Guerrero, ROULA is Primary Nurse. vc 01:24 CT Head Brain wo Cont In Process Unspecified. EDMS 01:54 XRAY Chest (1 view) In Process Unspecified. EDMS 02:15 Assist provider with lumbar puncture: Set up LP tray. Performed by Timoteo DE SOUZA CSF is vc clear. Puncture site dressed with 4X4s, Procedure was successful. Patient tolerated well. 05:00 IV discontinued, intact, bleeding controlled, No redness/swelling at site. Pressure mt2 dressing applied. Administered Medications: 01:05 Drug: NS 0.9% 1000 ml Route: IV; Rate: 1 bolus; Site: right antecubital; vc 02:00 Follow up: Response: No adverse reaction; Marked relief of symptoms; IV Status: mt2 Completed infusion; IV Intake: 1000ml 02:05 Drug: Demerol - Meperidine 12.5 mg Route: IVP; Site: right antecubital; vc 02:42 Follow up: Response: No adverse reaction vc 02:42 Drug: NS 0.9% 1000 ml Route: IV; Rate: 1 bolus; Site: right antecubital; vc 04:05 Follow up: Response: No adverse reaction; Rate change 1000 ml; IV Status: Completed mt2 infusion; IV Intake: 1000ml 04:54 Follow up: Response: No adverse reaction; IV Status: Completed infusion; IV Intake: mt2 1000ml Intake: 02:00 IV: 1000ml; Total: 1000ml. mt2 04:05 IV: 1000ml; Total: 2000ml. mt2 04:54 IV: 1000ml; Total: 3000ml. mt2 Outcome: 04:40 Discharge ordered by . 7 04:56 Discharged to home ambulatory. mt2 04:56 Condition: stable 04:56 Discharge instructions given to patient, Instructed on discharge instructions, follow up and referral plans. medication usage, Demonstrated understanding of instructions, follow-up care, medications, Prescriptions given X 1. 05:02 Patient left the ED. mt2 Signatures: Dispatcher [employer] EDMS Timoteo Pepper PA PA cp Ogletree, Danielle do Calcote, Vanessa, RN RN vc Lewis, Lynsay, RN RN 1 Cornelio Caro MD MD 7 Cony Toney RN RN mt2
[2020-04-19 05:13] VITALS: TEMP 98
[2020-04-19 05:14] VITALS: BP 128/78; O2SAT 97
--- NOTE | 2020-04-19 12:33 | RAD REPORT ---
EXAM DESCRIPTION: RAD - Chest Single View - 04/19/2020 1:55 am CLINICAL HISTORY: COUGH Chest pain. COMPARISON: Chest Single View dated 02/01/2019; Chest Single View dated 04/30/2017; Chest Single View d ated 03/09/2017; Chest Single View dated 02/10/2017 FINDINGS: Portable technique limits examination quality. The lungs are grossly clear. The heart is normal in size. No displaced fractures. IMPRESSION: No acute intrathoracic process suspected.
--- NOTE | 2020-04-20 09:40 | RAD REPORT ---
EXAM DESCRIPTION: CT Head Without Intravenous Contrast CLINICAL HISTORY: The patient is 39 years old and is Female; HEADACHE TECHNIQUE: Axial computed tomography images of the head/brain without intravenous contrast. Sagitt al and coronal reformatted images were created and reviewed. This CT exam was performed using one o r more of the following dose reduction techniques: automated exposure control, adjustment of the mA and/or kV according to patient size, and/or use of iterative reconstruction technique. COMPARISON: No relevant prior studies available. FINDINGS: BRAIN: Unremarkable. The black-white matter differentiation is preserved . No hemorrhag e. No significant white matter disease. No edema. No extra-axial fluid collections. VENTRICLES: Unremarkable. No ventriculomegaly. BONES/JOINTS: No acute fracture. SOFT TISSUES: Unremarkable. SINUSES: Unremarkable as visualized. No acute sinusitis. MASTOID AIR CELLS: Unremarkable as visualized. No mastoid effusion. ORBITS: Unremarkable as visualized. IMPRESSION: No acute intracranial findings. Electronically signed by: Mona Aguayo MD 04/19/2020 1:34 AM CDT Due to temporary technical issues with the PACS/Fluency reporting system, reports are being signed by the in house radiologist without review as a courtesy to ensure prompt reporting. The interpreting r adiologist is fully responsible for the content of the report.
== END 2020-04-19 05:02 | disposition home or self-care (01) ==
LOC: ER 20:23
PROC: 009U3ZX Drainage of Spinal Canal, Percutaneous Approach, Diagnostic (ICD-10-PCS; principal; 2020-04-19)
DX: B34.9 Viral infection, unspecified (principal); Z88.1 Allergy status to other antibiotic agents; Z91.040 Latex allergy status; Z91.048 Other nonmedicinal substance allergy status
CPT/HCPCS: 96361; 87070; 87088; 85025; 87086; 80048; 36415; 89050; 81025; 84157; 82945; 87081; 86403 ×6; 83605; 84145; 87804 ×2; 70450; 71045; 62270 ×2; 96374; 99285; J2175; J7030 ×2; 81003; 81015

== ENCOUNTER 2020-11-02 10:17 | Emergency (ER) | payer OTHER ==
[2020-11-02] MEDS ORDERED: DIPHENHYDRAMINE 50 MG/ML VIAL ONE (10:43)
[2020-11-02] MEDS ORDERED: METHYLPREDNISOLONE 125 MG INJ ONE (10:43)
[2020-11-02] MEDS ORDERED: FAMOTIDINE 20 MG/2 ML VIAL IV ONE (10:43)
--- OUTSIDE RECORDS SUMMARY | 2020-11-02 10:48 | XMS REPORT | Continuity of Care Document ---
:1980 Author Organization [facility] t Address [address] [place] [address] Care Team Providers Name Role Phone Unavailable Unavailable Unavailable Problems This patient has no known problems. Allergies, Adverse Reactions, Alerts Allergy Allergy Status Severity Reaction(s) Onset Inactive Treating Comm ents Source Name Type Date Date Clinician Levoflox Adverse Active Headaches [facility] Medications Ordered Filled Start Stop Current Ordering Indication Dosage Frequency Signature Comments Components Source Medication Medication Date Date Medication? Clinician (SIG) Name Name ProAir HFA ProAir HFA Yes Lorin [address] [facility] [place] needed for [facility] Norethindro Norethindro Yes Lorin not [facility] [place] defined [facility] IUD's IUD's Yes Lorin Paragard [facility] [place] IUD [facility] Flonase Flonase Yes Lorin not [facility] [place] defined [facility] ZyrTEC ZyrTEC Yes Lorin not [facility] [place] defined [facility] Vitamin B12 Vitamin B12 Yes Lorin (OTC) [address] [facility] [place] tablet [facility] Procedures This patient has no known procedures. Encounters Start End Encounter Admission Attending Care Care Encounter Source Date/Time Date/Time Type Type Clinicians Facility Department ID 2020-09-24 2020-09-24 Outpatient [facility] [id number] [facility] 2020-09-22 2020-09-22 Outpatient [facility] [id number] [facility] 2020-09-22 2020-09-22 Outpatient [facility] [id number] [facility] 2020-09-21 2020-09-21 Outpatient [facility] [id number] [facility] 2020-09-18 2020-09-18 Outpatient [facility] [id number] [facility] 2020-04-17 2020-04-17 [facility] [id number] [facility] 09:20[facility]00 09:20:00 t [facility] Medicine Outpati ent Clinics 2020-04-14 2020-04-14 [facility] [id number] [facility] 14:41:00 14:41:00 t [facility] Out[facility] Clin[facility] 2020-03-20 2020-03-20 [facility] [id number] [facility] 15:20:00 15:20:00 t [facility] Medicine Medicine Outpati ent Clinics 2019-12-18 2019-12-18 [facility] [id number] [facility] 09:22:00 09:22:00 t [facility] Medicine Medicine Outpati ent Clinics 2019-10-07 2019-10-07 [facility] [id number] [facility] 13:00:00 13:00:00 t [facility] Medicine Outpat[facility] Clinics 2019-09-17 2019-09-17 [facility] [id number] [facility] 10:42:00 10:42:00 t [facility] Medicine Outpati ent Clinics 2019-09-17 2019-09-17 [facility] [id number] [facility] 09[facility]30:00 09:30:00 t [facility] Medicine Out[facility] Clinics 2019-07-24 2019-07-24 [facility] [id number] [facility] 00:37:00 00:37:00 t [facility] Medicine Out[facility] Clin[facility] 2019-07-21 2019-07-21 [facility] [id number] [facility] 14[facility]16:00 14:16:00 t [facility] Medicine Outpat[facility] Clinics 2019-07-19 2019-07-19 [facility] [id number] [facility] 12:07:00 12:07:00 t [facility] Medicine Outpati ent Clinics 2019-07-19 2019-07-19 [facility] [id number] [address] 10:40:00 10:40:00 t [facility] Medicine Outpat[facility] ent Clinics 2019-06-10 2019-06-10 [facility] [id number] [facility] 09:59:00 09:59:00 [facility] l Outpat[facility] ent Clinics 2019-06-07 2019-06-07 [facility] [id number] [facility] 16[facility]30:00 16:30:00 [facility] 2018-07-02 2018-07-02 [facility] [id number] [facility] 10:54:00 10:54:00 t [facility] Medicine Outpati ent Clinics 2018-06-28 2018-06-28 [facility] [id number] [facility] 16:51:00 16:51:00 t [facility] Medicine Outpat[facility] ent Clinics 2018-06-13 2018-06-13 [facility] [id number] [facility] [address] 21:04:00 21:04:00 t [facility] Medicine Medicine Outpati ent Clinics 2018-06-13 2018-06-13 [facility] [id number] [facility] 11:49:00 11:49:00 t [facility] Medicine Outpati ent Clinics 2018-06-13 2018-06-13 [facility] [id number] [facility] 09:00:00 09:00:00 t [facility] Medicine l Medicine Outpati ent Clinics 2018-05-14 2018-05-14 [facility] [id number] [facility] 17:36:00 17:36:00 t [facility] Medicine Outpati ent Clinics 2018-04-17 2018-04-17 [facility] [id number] 16[facility]15:00 16:15:00 t [facility] Medicine Outpati ent Clinics 2018-04-11 2018-04-11 [facility] [id number] [facility] 09:07:00 09:07:00 t [facility] Medicine Outpati ent Clinics 2018-04-09 2018-04-09 [facility] [id number] [facility] 11[facility]50:00 11:50:00 t [facility] Medicine Medicine Outpati ent Clinics 2018-03-26 2018-03-26 [facility] [id number] [facility] 21:50:00 21:50:00 t [facility] Medicine Medicine Outpati ent Clinics 2018-03-23 2018-03-23 [facility] [id number] 14:00:00 14:00:00 t [facility] Medicine Outpati ent Clinics 2018-03-14 2018-03-14 [facility] [id number] [address] 14:16:00 14:16:00 t [facility] Medicine Outpati ent Clinics 2018-03-09 2018-03-09 [facility] [id number] 14:30:00 14:30:00 [facility] 2018-01-23 2018-01-23 Outpatient Meghna Arrieta [id number] [facility] St 10:00:00 10:00:00 [facility] ent Clinics Results This patient has no known results.
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
--- NOTE | 2020-11-02 12:18 | ER ---
Nurse's Notes [facility] Name: Aimee Randolph Age: 40 yrs Sex: Female : 1980 Arrival Date: 11/02/2020 Time: 10:18 Bed 4 Private MD: Diagnosis: Allergy, unspecified Presentation: 11/02 10:23 Acuity: LAURITA 2 ca1 10:23 Chief complaint: Patient states: Hair done Monday and Monday, symptoms started ca1 Monday. Swelling on face, took Benadryl last night with some relief. Woke up this morning with more swelling on face. Reports nausea, difficulty swallowing and breathing, throat feels swollen. Coronavirus screen: Client denies travel out of the [place] in the last 14 days. difficulty breathing, nausea, Client presents with at least one sign or symptom that may indicate coronavirus-19. Standard/surgical mask placed on the client. Provider contacted for isolation considerations. Ebola Screen: Patient negative for fever greater than or equal to 101.5 degrees Fahrenheit, and additional compatible Ebola Virus Disease symptoms Patient denies exposure to infectious person. Patient denies travel to an Ebola-affected area in the 21 days before illness onset. No symptoms or risks identified at this time. Onset: The symptoms/episode began/occurred last night. Initial Sepsis Screen: Does the patient meet any 2 criteria? No. Patient's initial sepsis screen is negative. Does the patient have a suspected source of infection? No. Patient's initial sepsis screen is negative. Risk Assessment: Do you want to hurt yourself or someone else? Patient reports no desire to harm self or others. Onset of symptoms was November 01, 2020. 10:23 Method Of Arrival: Wheelchair ca1 Historical: - Allergies: 10:33 Ceclor; ca1 10:33 Latex, Natural Rubber; ca1 10:33 Levaquin; ca1 - Home Meds: 10:33 None [Active]; ca1 - PMHx: 10:33 None; ca1 - PSHx: 10:33 Cholecystectomy; ; heart surgery to correct aoritc valve at 6 years old; ca1 - Immunization history:: Flu vaccine is up to date. - Social history:: Smoking status: Patient denies any tobacco usage or history of. - Family history:: not pertinent. Screenin:30 Abuse screen: Denies threats or abuse. Nutritional screening: No deficits noted. aa5 Tuberculosis screening: No symptoms or risk factors identified. Fall Risk None identified. Assessment: 10:30 General: Appears uncomfortable, Behavior is calm, cooperative. Pain: Denies pain. aa5 Neuro: Level of Consciousness is awake, alert, obeys commands, Oriented to person, place, time, situation. Cardiovascular: Heart tones S1 S2 present Rhythm is regular. Respiratory: Reports shortness of breath Airway is patent Respiratory effort is even, unlabored, Respiratory pattern is regular, symmetrical, Breath sounds are clear bilaterally. GI: Abdomen is round non-distended, Bowel sounds present X 4 quads. Abd is soft and non tender X 4 quads. Reports nausea, Patient currently denies vomiting. : No signs and/or symptoms were reported regarding the genitourinary system. EENT: Swelling noted to left upper eyelid and left lower eyelid, eye swollen shut, swelling extending to left cheek. Swelling also noted to middle of forehead. . Reports difficulty swallowing. Derm: Skin is pink, warm \\T\\ dry. Musculoskeletal: Range of motion: intact in all extremities. 11:00 Reassessment: Patient is alert, oriented x 3, equal unlabored respirations, skin aa5 warm/dry/pink. Pt currently denies SOB, just reports feeling "sleepy" after Benadryl administration. . 11:30 Reassessment: Pt resting in bed with eyes closed, swelling decreased to left eye, aa5 denies SOB, denies difficulty swallowing, reports improvement of symptoms, states feeling better. Equal and relaxed respirations, skin is pink/warm/dry. . 12:15 Reassessment: Patient is alert, oriented x 3, equal unlabored respirations, skin aa5 warm/dry/pink. Patient states feeling better. Marked improvement of symptoms. Swelling to left eye decreased, pt able to open eye at this time. Dr. Gonsales notified of improvement. . Vital Signs: 10:23 BP 154 / 86; Pulse 77; Resp 20 S; Temp 97.7(TE); Pulse Ox 100% on R/A; Weight 86.18 kg ca1 (R); Height 5 ft. 4 in. (162.56 cm) (R); Pain 0/10; 11:00 BP 126 / 66; Pulse 60; Resp 14 S; Pulse Ox 100% on R/A; aa5 11:30 BP 124 / 60; Pulse 51; Resp 16 S; Pulse Ox 100% on R/A; aa5 12:15 BP 152 / 74; Pulse 52; Resp 14 S; Pulse Ox 100% on R/A; aa5 13:00 BP 142 / 72; Pulse 55; Resp 16 S; Temp 98.0(TE); Pulse Ox 100% on R/A; aa5 10:23 Body Mass Index 32.61 (86.18 kg, 162.56 cm) ca1 ED Course: 10:18 Patient arrived in ED. ag5 10:23 Kalina Gonsales MD is Attending Physician. ma2 10:24 Mary Pike, ROULA is Primary Nurse. aa5 10:30 Inserted saline lock: 20 gauge in right forearm, using aseptic technique. aa5 10:32 Triage completed. ca1 10:33 Arm band placed on right wrist. ca1 10:33 Patient has correct armband on for positive identification. Bed in low position. Call aa5 light in reach. Side rails up X2. Pulse ox on. NIBP on. 13:10 No provider procedures requiring assistance completed. IV discontinued, intact, aa5 bleeding controlled, No redness/swelling at site. Pressure dressing applied. Administered Medications: 10:30 Drug: Pepcid 20 mg Route: IVP; Site: right forearm; aa5 10:40 Follow up: Response: No adverse reaction aa5 10:30 Drug: Benadryl 50 mg Route: IVP; Site: right forearm; aa5 10:40 Follow up: Response: No adverse reaction aa5 10:30 Drug: SOLU-Medrol 125 mg Route: IVP; Site: right forearm; aa5 10:40 Follow up: Response: No adverse reaction aa5 Outcome: 12:17 Discharge ordered by . ma2 13:10 Discharged to home ambulatory, with family. aa5 13:10 Condition: improved 13:10 Discharge instructions given to patient, Instructed on discharge instructions, follow up and referral plans. medication usage, Demonstrated understanding of instructions, follow-up care, medications, Prescriptions given X 3. 13:15 Patient left the ED. iw Signatures: Lupe Lei RN RN iw Mary Pike, ROULA RN aa5 Kalina Gonsales MD MD ma2 Acob, Cheryl, RN RN ca1 Annabelle Wilkes ag5 Corrections: (The following items were deleted from the chart) 13:27 11:30 Reassessment: Pt resting in bed with eyes closed, swelling decreased to left eye, aa5 denies SOB, reports improvement of symptoms, states feeling better. Equal and relaxed respirations, skin is pink/warm/dry. . aa5
--- NOTE | 2020-11-02 12:18 | EDPHYS ---
Physician Documentation [facility] Name: Aimee Randolph Age: 40 yrs Sex: Female : 1980 Arrival Date: 11/02/2020 Time: 10:18 Bed 4 Private MD: ED Physician Kalina Gonsales HPI: 11/02 11:21 This 40 yrs old Female presents to ER via Wheelchair with complaints of ma2 Allergic Reaction. 11:21 The patient presents with facial swelling and itching, no tongue swelling difficulty ma2 swallowing or throat symptoms no stridor. Onset: The symptoms/episode began/occurred acutely, suddenly. Severity of symptoms: At their worst the symptoms were mild in the emergency department the symptoms are unchanged. The patient has not experienced similar symptoms in the past. Historical: - Allergies: 10:33 Ceclor; ca1 10:33 Latex, Natural Rubber; ca1 10:33 Levaquin; ca1 - Home Meds: 10:33 None [Active]; ca1 - PMHx: 10:33 None; ca1 - PSHx: 10:33 Cholecystectomy; ; heart surgery to correct aoritc valve at 6 years old; ca1 - Immunization history:: Flu vaccine is up to date. - Social history:: Smoking status: Patient denies any tobacco usage or history of. - Family history:: not pertinent. ROS: 11:21 Constitutional: Negative for fever, chills, and weight loss. ma2 11:21 All other systems are negative. Exam: 11:21 Constitutional: This is a well developed, well nourished patient who is awake, alert, ma2 and in no acute distress. Head/Face: has facial swelling however tongue and pharynx are wnl, no stridor Eyes: Pupils equal round and reactive to light, extra-ocular motions intact. Lids and lashes normal. Conjunctiva and sclera are non-icteric and not injected. Cornea within normal limits. Periorbital areas with no swelling, redness, or edema. ENT: Nares patent. No nasal discharge, no septal abnormalities noted. Tympanic membranes are normal and external auditory canals are clear. Oropharynx with no redness, swelling, or masses, exudates, or evidence of obstruction, uvula midline. Mucous membranes moist. Neck: Trachea midline, no thyromegaly or masses palpated, and no cervical lymphadenopathy. Supple, full range of motion without nuchal rigidity, or vertebral point tenderness. No Meningismus. Chest/axilla: Normal chest wall appearance and motion. Nontender with no deformity. No lesions are appreciated. Cardiovascular: Regular rate and rhythm with a normal S1 and S2. No gallops, murmurs, or rubs. Normal PMI, no JVD. No pulse deficits. Respiratory: Lungs have equal breath sounds bilaterally, clear to auscultation and percussion. No rales, rhonchi or wheezes noted. No increased work of breathing, no retractions or nasal flaring. Abdomen/GI: Soft, non-tender, with normal bowel sounds. No distension or tympany. No guarding or rebound. No evidence of tenderness throughout. Back: No spinal tenderness. No costovertebral tenderness. Full range of motion. Skin: Warm, dry with normal turgor. Normal color with no rashes, no lesions, and no evidence of cellulitis. MS/ Extremity: Pulses equal, no cyanosis. Neurovascular intact. Full, normal range of motion. Neuro: Awake and alert, GCS 15, oriented to person, place, time, and situation. Cranial nerves II-XII grossly intact. Motor strength 5/5 in all extremities. Sensory grossly intact. Cerebellar exam normal. Normal gait. Vital Signs: 10:23 BP 154 / 86; Pulse 77; Resp 20 S; Temp 97.7(TE); Pulse Ox 100% on R/A; Weight 86.18 kg ca1 (R); Height 5 ft. 4 in. (162.56 cm) (R); Pain 0/10; 11:00 BP 126 / 66; Pulse 60; Resp 14 S; Pulse Ox 100% on R/A; aa5 11:30 BP 124 / 60; Pulse 51; Resp 16 S; Pulse Ox 100% on R/A; aa5 12:15 BP 152 / 74; Pulse 52; Resp 14 S; Pulse Ox 100% on R/A; aa5 13:00 BP 142 / 72; Pulse 55; Resp 16 S; Temp 98.0(TE); Pulse Ox 100% on R/A; aa5 10:23 Body Mass Index 32.61 (86.18 kg, 162.56 cm) ca1 MDM: 10:23 Patient medically screened. ma2 11:21 Differential diagnosis: Status Asthmaticus urticaria, Vasovagal Reactions allergic ma2 reaction no anaphylaxis or airway swelling. 12:15 Data reviewed: vital signs, nurses notes. Counseling: I had a detailed discussion with gill the patient and/or guardian regarding: the historical points, exam findings, and any diagnostic results supporting the discharge/admit diagnosis, the presence of at least one elevated blood pressure reading (>120/80) during this emergency department visit, the need for outpatient follow up. Response to treatment: There is no appreciated change of the patient's symptoms at this time. Response to treatment: There is no appreciated change of the patient's symptoms at this time. Response to treatment: the patient's symptoms have markedly improved after treatment. Administered Medications: 10:30 Drug: Pepcid 20 mg Route: IVP; Site: right forearm; aa5 10:40 Follow up: Response: No adverse reaction aa5 10:30 Drug: Benadryl 50 mg Route: IVP; Site: right forearm; aa5 10:40 Follow up: Response: No adverse reaction aa5 10:30 Drug: SOLU-Medrol 125 mg Route: IVP; Site: right forearm; aa5 10:40 Follow up: Response: No adverse reaction aa5 Disposition: 11/02/20 12:17 Discharged to Home. Impression: Allergy, unspecified. - Condition is Stable. - Discharge Instructions: Allergy Skin Testing. - Prescriptions for Benadryl 25 mg Oral Capsule - take 1 capsule by ORAL route every 6 hours As needed; 30 tablet. Medrol (Heladio) 4 mg Oral Tablets, Dose Pack - take 1 tablet by ORAL route as directed - follow package instructions; 1 packet. Pepcid 20 mg Oral Tablet - take 1 tablet by ORAL route once daily for 10 days; 10 tablet. - Medication Reconciliation Form, Thank You Letter, Antibiotic Education, Prescription Opioid Use form. - Follow up: Private Physician; When: Tomorrow; Reason: Continuance of care. Signatures: Lupe Lei RN RN iw Mary Piek RN RN aa5 Kalina Gonsales MD MD ma2 Tamela Lau RN RN ca1 Corrections: (The following items were deleted from the chart) 13:15 12:17 11/02/2020 12:17 Discharged to Home. Impression: Allergy, unspecified. Condition iw is Stable. Prescriptions for Benadryl 25 mg Oral Capsule - take 1 capsule by ORAL route every 6 hours As needed; 30 tablet, Medrol (Heladio) 4 mg Oral Tablets, Dose Pack - take 1 tablet by ORAL route as directed - follow package instructions; 1 packet, Pepcid 20 mg Oral Tablet - take 1 tablet by ORAL route once daily for 10 days; 10 tablet. and Forms are Medication Reconciliation Form, Thank You Letter, Antibiotic Education, Prescription Opioid Use. Follow up: Private Physician; When: Tomorrow; Reason: Continuance of care. ma2
== END 2020-11-02 13:15 | disposition home or self-care (01) ==
LOC: ER 10:17
DX: T78.40XA Allergy, unspecified, initial encounter (principal); X58.XXXA Exposure to other specified factors, initial encounter; Z88.1 Allergy status to other antibiotic agents; Z91.040 Latex allergy status
CPT/HCPCS: J1200; J2930; 96374; 96375; 99284

== ENCOUNTER 2020-11-03 17:02 | Emergency (ER) | payer OTHER ==
--- OUTSIDE RECORDS SUMMARY | 2020-11-03 17:04 | XMS REPORT | Continuity of Care Document ---
:1980 Author Organization [facility] t Address [address] [place] [address] Care Team Providers Name Role Phone Unavailable [...] Lorin [address] [facility] Norethindro Norethindro Yes Lorin not [facility] ne ne [facility] defined [facility] IUD's IUD's Yes Lorin Paragard [facility] I[facility] Flonase Flonase Yes Lorin not [facility] ZyrTEC ZyrTEC Yes Lorin not [facility] Vitamin B12 Vitamin B12 Yes Lorin (OTC) [address] [facility] tablet [facility] Procedures This patient has no known procedures. Encounters Start End Encounter Admission Attending Care Care Encounter Source Date/Time Date/Time Type Type Clinicians Facility Department ID 2020-09-24 2020-09-24 Outpatient [facility] [id number] [facility] 2020-09-22 2020-09-22 Outpatient [facility] [id number] [facility] 2020-09-22 2020-09-22 Outpatient [facility] [id number] [facility] 2020-09-21 2020-09-21 Outpatient [facility] [id number] [facility] 2020-09-18 2020-09-18 Outpatient [facility] [id number] [facility] 2020-04-17 2020-04-17 [facility] [id number] [facility] 09[facility]20[facility]00 09:20:00 t [facility] Medicine Outpat[facility] ent Clinics 2020-04-14 2020-04-14 [facility] [id number] [facility] 14:41:00 14:41:00 t [facility] Clin[facility] 2020-03-20 2020-03-20 [facility] [id number] [facility] 15:20:00 15:20:00 t [facility] Medicine Medicine Outpati ent Clinics 2019-12-18 2019-12-18 [facility] [id number] [facility] 09:22:00 09:22:00 t [facility] Medicine Medicine Outpati ent Clinics 2019-10-07 2019-10-07 [facility] [id number] [facility] 13:00:00 13:00:00 t [facility] Medicine Outpati ent Clinics 2019-09-17 2019-09-17 [facility] [id number] [facility] 10:42:00 10:42:00 t [facility] Medicine Outpati ent Clinics 2019-09-17 2019-09-17 [facility] [id number] [facility] 09:30:00 09:30:00 t [facility] Medicine Out[facility] Clin[facility] 2019-07-24 2019-07-24 [facility] [id number] [facility] 00:37:00 00:37:00 t [facility] Clin[facility] 2019-07-21 2019-07-21 [facility] [id number] [facility] 14:16:00 14:16:00 t [facility] Medicine Outpati ent Clinics 2019-07-19 2019-07-19 [facility] [id number] [facility] 12:07:00 12:07:00 t [facility] Medicine Outpati ent Clin[facility] 2019-07-19 2019-07-19 [facility] [id number] [facility] 10[facility]40:00 10:40:00 t [facility] Medicine Outpati ent Clinics 2019-06-10 2019-06-10 [facility] [id number] [facility] 09[facility]59:00 09:59:00 [facility] Clin[facility] 2019-06-07 2019-06-07 [facility] [id number] [facility] 16:30:00 16:30:00 [facility] 2018-07-02 2018-07-02 [facility] [id number] [facility] 10:54:00 10:54:00 t [facility] Medicine Outpati ent Clinics 2018-06-28 2018-06-28 [facility] [id number] [facility] 16:51:00 16:51:00 t [facility] Medicine Outpati ent Clinics 2018-06-13 2018-06-13 [facility] [id number] [facility] 21:04:00 21:04:00 t [facility] Medicine Medicine Outpati ent Clinics 2018-06-13 2018-06-13 [facility] [id number] [facility] 11:49:00 11:49:00 t [facility] Medicine Outpati ent Clinics 2018-06-13 2018-06-13 [facility] [id number] [facility] 09:00:00 09:00:00 t [facility] Medicine l Medicine Outpati ent Clinics 2018-05-14 2018-05-14 [facility] [id number] [facility] 17:36:00 17:36:00 t [facility] Medicine Outpati ent Clinics 2018-04-17 2018-04-17 [facility] [id number] [facility] 16[facility]15:00 16:15:00 t [facility] Medicine Outpati ent Clinics 2018-04-11 2018-04-11 [facility] [id number] [facility] 09:07:00 09:07:00 t [facility] Medicine Outpati ent Clinics 2018-04-09 2018-04-09 [facility] [id number] [facility] 11:50:00 11:50:00 t [facility] Medicine Medicine Outpati ent Clinics 2018-03-26 2018-03-26 [facility] [id number] [facility] 21:50:00 21:50:00 t [facility] Medicine Medicine Outpati ent Clinics 2018-03-23 2018-03-23 [facility] [id number] [facility] 14:00:00 14:00:00 t [facility] Medicine Outpati ent Clinics 2018-03-14 2018-03-14 [facility] [id number] [facility] 14:16:00 14:16:00 t [facility] Medicine Outpati ent Clinics 2018-03-09 2018-03-09 [facility] [id number] 14:30:00 14:30:00 [facility] ent [facility] 2018-01-23 2018-01-23 Outpatient Meghna Arrieta [id number] [facility] [address] 10:00:00 10:00:00 [facility] ent Clinics Results This patient has no known results.
[2020-11-03 21:20] LABS: Basophils % 0.3 % (0-1.3); Hematocrit 34.9 % (36.0-45.0); Lymphocytes % 9.6 % (15.3-44.8); MPV 8.6 fL (7.6-11.3); RBC Red Blood Cell Count 4.08 M/uL (3.86-4.86)
[2020-11-03 21:29] LABS: BUN Blood Urea Nitrogen 11 mg/dL (7-18); Bicarbonate 27 mmol/L (21-32); Glucose Level 103 mg/dL (74-106); Potassium 3.9 mmol/L (3.5-5.1); Sodium Level 144 mmol/L (136-145)
[2020-11-03 21:58] LABS: SARS-COV-2 RT PCR NEGATIVE (NEGATIVE)
--- NOTE | 2020-11-03 22:07 | EDPHYS ---
Physician Documentation [facility] Name: Aimee Randolph Age: 40 yrs Sex: Female : 1980 Arrival Date: 11/03/2020 Time: 17:03 Bed 30 Private MD: ED Physician Timoteo Barney HPI: 11/04 00:03 This 40 yrs old Female presents to ER via Ambulatory with complaints of kb Allergic Reaction. 00:03 The patient presents with localized swelling. Onset: The symptoms/episode kb began/occurred yesterday. Associated signs and symptoms: Pertinent positives: swelling. Possible causes: hair dye. At home the patient or guardian has treated the symptoms with Benadryl, steroids. Severity of symptoms: At their worst the symptoms were moderate in the emergency department the symptoms are unchanged. The patient has not experienced similar symptoms in the past. The patient has been recently seen by a physician: the patient's primary care provider, The patient has been recently seen at the [facility] Emergency Department. Pt reports she got her hair dyed and had an allergic reaction to it yesterday. came here and was given steroids, then followed up with PCP today who gave another steroid shot. Started running fever at home so her dr told her to come to the ER. Facial swelling noted, worse on left side. No redness, warmth. 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 - Social history:: Smoking status: Patient denies any tobacco usage or history of. ROS: 11/04 00:06 Cardiovascular: Negative for chest pain, palpitations, and edema, Respiratory: Negative kb for shortness of breath, cough, wheezing, and pleuritic chest pain, Abdomen/GI: Negative for abdominal pain, nausea, vomiting, diarrhea, and constipation, MS/Extremity: Negative for injury and deformity, Neuro: Negative for headache, weakness, numbness, tingling, and seizure. Constitutional: Positive for fatigue, fever, malaise. Skin: Positive for swelling, of the left eye and left cheek and right cheek and right eye. Exam: 00:05 Constitutional: This is a well developed, well nourished patient who is awake, alert, kb and in no acute distress. Head/Face: Normocephalic, atraumatic. Chest/axilla: Normal chest wall appearance and motion. Nontender with no deformity. No lesions are appreciated. Cardiovascular: Regular rate and rhythm with a normal S1 and S2. No gallops, murmurs, or rubs. Normal PMI, no JVD. No pulse deficits. Respiratory: Lungs have equal breath sounds bilaterally, clear to auscultation and percussion. No rales, rhonchi or wheezes noted. No increased work of breathing, no retractions or nasal flaring. Abdomen/GI: Soft, non-tender, with normal bowel sounds. No distension or tympany. No guarding or rebound. No evidence of tenderness throughout. Skin: Warm, dry with normal turgor. Normal color with no rashes, no lesions, and no evidence of cellulitis. MS/ Extremity: Pulses equal, no cyanosis. Neurovascular intact. Full, normal range of motion. Neuro: Awake and alert, GCS 15, oriented to person, place, time, and situation. Cranial nerves II-XII grossly intact. Motor strength 5/5 in all extremities. Sensory grossly intact. Cerebellar exam normal. Normal gait. 00:05 Head/face: Noted is no obvious of injury or deformity except swelling, that is moderate, of the right eye, right cheek, left cheek and left eye. Vital Signs: 02 18:34 BP 138 / 80; Pulse 72; Resp 16; Temp 98.3; Pulse Ox 100% on R/A; Weight 86.18 kg; iw Height 5 ft. 0 in. (152.40 cm); 18:34 Body Mass Index 37.11 (86.18 kg, 152.40 cm) iw MDM: 20:36 Patient medically screened. kb 11/04 00:03 Data reviewed: vital signs, nurses notes. Data interpreted: Pulse oximetry: on room air kb is 100 %. Interpretation: normal. Counseling: I had a detailed discussion with the patient and/or guardian regarding: the historical points, exam findings, and any diagnostic results supporting the discharge/admit diagnosis, lab results, the need for outpatient follow up, a family practitioner, to return to the emergency department if symptoms worsen or persist or if there are any questions or concerns that arise at home. 11/03 20:43 Order name: CBC with Diff; Complete Time: 21:26 kb 11/03 20:43 Order name: Basic Metabolic Panel; Complete Time: 21:30 kb 11/03 21:58 Order name: COVID-19/FLU A+B; Complete Time: 21:59 EDMS 11/03 20:43 Order name: IV Start; Complete Time: 21:19 kb Administered Medications: 11/03 21:20 Drug: Pepcid 20 mg Route: IVP; Site: right antecubital; ll2 21:21 Drug: NS 0.9% 1000 ml Route: IV; Rate: 1000 ml; Site: right antecubital; ll2 Disposition: 11/04 06:46 Co-signature as Attending Physician, Timoteo Barney MD I agree with the assessment and juliet plan of care. Disposition: 11/03/20 22:07 Discharged to Home. Impression: Allergic dermatitis of eyelid, Allergic contact dermatitis due to cosmetics. - Condition is Stable. - Discharge Instructions: Contact Dermatitis, [id number], Allergies, [id number]-[id number]. - Prescriptions for Bactrim DS 800- 160 mg Oral Tablet - take 1 tablet by ORAL route every 12 hours for 7 days; 14 tablet. - Medication Reconciliation Form, Thank You Letter, Antibiotic Education, Prescription Opioid Use form. - Follow up: Emergency Department; When: As needed; Reason: Worsening of condition. Follow up: Private Physician; When: 2 - 3 days; Reason: Recheck today's complaints, Continuance of care, Re-evaluation by your physician. Signatures: Dispatcher [employer] Sherri Liz, NON CLINICAL ADVISOR-C ANGEL-Timoteo Stephens MD MD cha Williams, Irene, RN RN iw Linscombe, Lacie, RN RN ll2 Corrections: (The following items were deleted from the chart) 11/03 21: 20:44 CORONAVIRUS+MR.LAB.BRZ [facility]. [facility] 21: 20:44 Influenza Screen (A \T\ B)+BA.LAB.BRZ ordered. [facility] EDMS 22:28 22:07 11/03/2020 22:07 Discharged to Home. Impression: Allergic dermatitis of eyelid; ll2 Allergic contact dermatitis due to cosmetics. Condition is Stable. Forms are Medication Reconciliation Form, Thank You Letter, Antibiotic Education, Prescription Opioid Use. Follow up: Emergency Department; When: As needed; Reason: Worsening of condition. Follow up: Private Physician; When: 2 - 3 days; Reason: Recheck today's complaints, Continuance of care, Re-evaluation by your physician. kb
--- NOTE | 2020-11-03 22:07 | ER ---
Nurse's Notes [facility] Name: Aimee Randolph Age: 40 yrs Sex: Female : 1980 Arrival Date: 11/03/2020 Time: 17:03 Bed 30 Private MD: Diagnosis: Allergic dermatitis of eyelid;Allergic contact dermatitis due to cosmetics Presentation: 11/03 18:30 Chief complaint: Patient states: was here yesterday for allergic reaction to possible iw hair dye, was sent home with steroids and antihistamines and went to her PCP and they gave her another steroid shot , then started having fever of 101 , chills and having headache , still has a lot of facial swelling also. 18:30 Method Of Arrival: Ambulatory iw 18:35 Coronavirus screen: chills, fever, Client presents with at least one sign or symptom iw that may indicate coronavirus-19. Standard/surgical mask placed on the client. Provider contacted for isolation considerations. Ebola Screen: Patient negative for fever greater than or equal to 101.5 degrees Fahrenheit, and additional compatible Ebola Virus Disease symptoms Patient denies exposure to infectious person. Patient denies travel to an Ebola-affected area in the 21 days before illness onset. No symptoms or risks identified at this time. Onset: The symptoms/episode began/occurred yesterday. Anaphylaxis evaluation, no signs or symptoms of anaphylaxis were noted. Initial Sepsis Screen: Does the patient meet any 2 criteria? No. Patient's initial sepsis screen is negative. Does the patient have a suspected source of infection? No. Patient's initial sepsis screen is negative. Risk Assessment: Do you want to hurt yourself or someone else? Patient reports no desire to harm self or others. Onset of symptoms was November 02, 2020. 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 - Social history:: Smoking status: Patient denies any tobacco usage or history of. Vital Signs: 18:34 BP 138 / 80; Pulse 72; Resp 16; Temp 98.3; Pulse Ox 100% on R/A; Weight 86.18 kg; iw Height 5 ft. 0 in. (152.40 cm); 18:34 Body Mass Index 37.11 (86.18 kg, 152.40 cm) iw ED Course: 17:03 Patient arrived in ED. ds1 18:36 Triage completed. iw 19:01 Sherri García FNP-C [facility]. kb 19:01 Timoteo Barney MD is Attending Physician. kb 21:00 Initial lab(s) drawn, by me, sent to lab. Inserted saline lock: 20 gauge in right em antecubital area, using aseptic technique. Blood collected. 21:12 Mariela Machado, RN is Primary Nurse. ll2 Administered Medications: 21:20 Drug: Pepcid 20 mg Route: IVP; Site: right antecubital; ll2 21:21 Drug: NS 0.9% 1000 ml Route: IV; Rate: 1000 ml; Site: right antecubital; ll2 Outcome: 22:07 Discharge ordered by . kb 22:28 Patient left the ED. ll2 Signatures: Sherri García FNP-C FNP-Mk Kiser RN RN Luci Espinal ds1 Lupe Lei RN RN Mariela Machado, ROULA RN ll2 Corrections: (The following items were deleted from the chart) 19:17 18:30 Chief complaint: Patient states: was here yesterday for allergic reaction to iw possible hair dye, was sent home with steroids and antihistamines and went to her PCP and they gave her another steroid shot , then started having fever of 101 , chills and having headache iw
[2020-11-03 23:07] VITALS: BP 138/80; TEMP 98.3; O2SAT 100
== END 2020-11-03 22:28 | disposition home or self-care (01) ==
LOC: ER 17:02
DX: L23.2 Allergic contact dermatitis due to cosmetics (principal); Z20.822 Contact with and (suspected) exposure to COVID-19
CPT/HCPCS: 85025; 80048; 36415; 0240U; 96374; 99283

== ENCOUNTER 2021-11-19 14:38 | Emergency (ER) | payer OTHER ==
--- OUTSIDE RECORDS SUMMARY | 2021-11-19 14:43 | XMS REPORT | Continuity of Care Document ---
:1980 Author Organization [facility] t Address [address] [place] [address] Care Team Providers Name Role Phone Ambrose Stanford Attending Clinician Unavailable Hector Attending Clinician Unavailable Zhang Attending Clinician Unavailable Problems This patient has no known problems. Allergies, Adverse Reactions, Alerts Allergy Allergy Status Severity Reaction(s) Onset Inactive Treating Comm ents Source Name Type Date Date Clinician CEFACLOR DRUG Active Hives 2014-0 [facility] 9-12 ity of 00:00: [address] Levoflox Adverse Active Headaches [facility] Reaction (severe[facility] Medications Ordered Filled Start Stop Current Ordering Indication Dosage Frequency Signature Comments Components Source Medication Medication Date Date Medication? Clinician (SIG) Name Name ProAir HFA ProAir HFA Yes [place]in [address] [facility] 7-17 [place] needed for [facility] Norethindro Norethindro Yes Lorin not [facility] [place] defined [facility] IUD's IUD's Yes Lorin Paragard [facility] [place] IUD [facility] Flonase Flonase Yes Lorin not [facility] [place] defined [facility] ZyrTEC ZyrTE Yes Lorin not [facility] [place] defined [facility] Vitamin B12 Vitamin B12 Yes Lorin (OTC) [address] [facility] [place] tablet [facility] Procedures This patient has no known procedures. Encounters Start End Encounter Admission Attending Care Care Encounter Source Date/Time Date/Time Type Type Clinicians Facility Department ID 2021-10-27 Outpatient Deyanira Stanford [facility] [id number] [facility] [address] 14:22:04 [id number] [facility] 2021-10-27 [facility] [id number] [facility] [address] 13[facility]44:09 [id number] [facility] 2021-10-27 Outpatient Hector [facility] [id number] [facility] 12:14:07 Krys [id number] [facility] 2021-10-27 Outpatient Hector [facility] [id number] [facility] 12:00:50 Krys [id number] [facility] 2021-10-27 Outpatient Zhang [facility] [id number] 11:50:51 Brittnee [id number] [facility] 2021-10-27 Outpatient Zhang [facility] [id number] 11:48:39 Brittnee [id number] [facility] 2021-10-27 Outpatient Zhang [facility] [id number] 11:31:44 Brittnee [id number] [facility] 2021-10-27 Outpatient Zhang [facility] [id number] 11:31:31 Brittnee [id number] [facility] 2021-06-30 2021-06-30 [facility] [id number] [facility] 2021-06-05 2021-06-05 Out[facility] [id number] [facility] 2021-05-31 2021-05-31 Out[facility] [id number] [facility] 2021-01-09 2021-01-09 Outpatient [facility] [id number] [facility] 11:55:00 11:55:00 [facility] 2020-12-19 2020-12-19 Outpatient [facility] [id number] [facility] 16:25:00 16:25:00 [facility] 2020-11-04 2020-11-04 Out[facility] [id number] [facility] 2020-11-03 2020-11-03 Out[facility] [id number] [facility] 2020-09-24 2020-09-24 Out[facility] [id number] [facility] 2020-09-22 2020-09-22 Outpatient [facility] [id number] [facility] 2020-09-22 2020-09-22 Out[facility] [id number] [facility] 2020-09-21 2020-09-21 Outpatient [facility] [id number] [facility] 2020-09-18 2020-09-18 Out[facility] [id number] [facility] 2020-04-17 2020-04-17 [facility] [id number] [facility] 09[facility]20:00 09:20:[address] [place] [facility] 2020-04-14 2020-04-14 [facility] [id number] 14:41:00 14:41:00 [facility] l Medicine Outpati ent Clinics 2020-03-20 2020-03-20 [facility] [id number] [facility] 15:20:00 15:20:00 t [facility] Medicine Medicine Outpati ent Clinics 2019-12-18 2019-12-18 [facility] [id number] 09:22:00 09:22:00 [facility] Medicine Outpati ent Clinics 2019-10-07 2019-10-07 [facility] [id number] 13:00:00 13:00:00 t [facility] Medicine l Medicine Outpati ent Clinics 2019-09-17 2019-09-17 [facility] [id number] 10[facility]42:00 10:42:00 [facility] Medicine Outpati ent Clinics 2019-09-17 2019-09-17 [facility] [id number] 09:30:00 09:30:00 [facility] Medicine Outpati ent Clinics 2019-07-24 2019-07-24 [facility] [id number] 00:37:00 00:37:00 [facility] Medicine Outpati ent Clinics 2019-07-21 2019-07-21 [facility] [id number] [facility] 14:16:00 14:16:00 [facility] Medicine Outpati ent Clinics 2019-07-19 2019-07-19 [facility] [id number] 12:07:00 12:07:00 t [facility] Medicine l Medicine Outpati ent Clinics 2019-07-19 2019-07-19 [facility] [id number] 10:40:00 10:40:00 t [facility] Medicine Medicine Outpati ent Clinics 2019-06-10 2019-06-10 [facility] [id number] 09:59:00 09:59:00 [facility] l Outpati ent Clinics 2019-06-07 2019-06-07 [facility] [id number] 16:30:00 16:30:00 t [facility] l Outpati ent Clinics 2018-07-02 2018-07-02 [facility] [id number] 10:54:00 10:54:00 t [facility] Medicine l Medicine Outpati ent Clinics 2018-06-28 2018-06-28 [facility] [id number] 16:51:00 16:51:00 t [facility] Medicine l Medicine Outpati ent Clinics 2018-06-13 2018-06-13 [facility] [id number] [facility] 21:04:00 21:04:00 t [facility] Medicine l Medicine Outpati ent Clinics 2018-06-13 2018-06-13 [facility] [id number] 11:49:00 11:49:00 t [facility] Medicine l Medicine Outpati ent Clinics 2018-06-13 2018-06-13 [facility] [id number] 09:00:00 09:00:00 t [facility] Medicine l Medicine Outpati ent Clinics 2018-05-14 2018-05-14 [facility] [id number] [facility] 17:36:00 17:36:00 t [facility] Medicine l Medicine Outpati ent Clinics 2018-04-17 2018-04-17 [facility] [id number] [facility] 16:15:00 16:15:00 t [facility] Medicine l Medicine Outpati ent Clinics 2018-04-11 2018-04-11 [facility] [id number] 09:07:00 09:07:00 t [facility] Medicine l Medicine Outpati ent Clinics 2018-04-09 2018-04-09 [facility] [id number] 11:50:00 11:50:00 t [facility] Medicine l Medicine Outpati ent Clinics 2018-03-26 2018-03-26 [facility] [id number] [facility] 21:50:00 21:50:00 [facility] ent Clinics 2018-03-23 2018-03-23 [facility] [id number] 14:00:00 14:00:00 [facility] Outpati ent Clinics 2018-03-14 2018-03-14 [facility] [id number] 14:16:00 14:16:00 [facility] Outpati ent Clinics 2018-03-09 2018-03-09 [facility] [id number] 14:30:00 14:30:00 [facility] 2018-01-23 2018-01-23 [facility] [id number] 10:00:00 10:00:00 [facility] ent Clinics Results Test Description Test Time Test Comments Results Result Comments Source SARS-CoV-2 (COVID-19), RT-PCR/TMA 2021-10-10 17:22:58 Test Item Value Reference Range Interpretation Comme nts SARS-CoV-2 INTERPRETATION NEGATIVE SEE NOTE S ARS-CoV-2 RNA NOT (test code = 68505) DETECTED Negative results do not preclude SARS-C oV-2 infection and should notb e used as the sole basis for patient management deci sions. Negativeresults must be combined with clinical o bservations, patient history ,and epidemiological information. Optimum specime n types and timingfor peak viral levels during infectio ns caused by SARS-CoV-2 have notbeen determined. Col lection of multiple specim ens or types ofspecimens may be necessary to detect virus. I mproper specimencollect ion and handling, sequence variab ility under primers/probes, or organism present below t he limit of detection may l ead to falsenegative r esults. Positive and negative pr edictive values oftesting are h ighly dependent on prevalence. False negative testresults are more likely when prevalence is h igh. SOURCE (test code = 39107) NASOPHARYNGEAL Note: Methodology is Steve Rashi Real-Time RT-PCR. The expected r esult or reference range is NEGATIVE (Not Detected). For more information regarding COVID -19 testing to include clinica linformation, methodology det ail, intended use, FDA author ization andrecommended fact sheets for patients or a lthcare providers, see NewTest Announcement: S ARS-CoV-2 (COVID-19) by N AAT at URL below (note,fact shee ts are provided by method given in report:https:// www.[employer]/c linicians/demetri t-communications/ Alternatively, see downloadable PDF fact sheet at:https://www. [employer]/COVID -19-RT-PCR UNLESS OTHERWISE INDIC ATED, ALL TESTING PERFORMED [facility], [place] [address] LABORATORY DIRE CTOR: ODILON SUMMERS M.D. CLIA NUMBER [id number] [place]. [id number]
[2021-11-19] MEDS ORDERED: dexAMETHasone 4 MG/ML VIAL ONE (15:29)
[2021-11-19] MEDS ORDERED: LEVALBUTEROL 1.25 MG/3 ML NEB ONE (15:29)
[2021-11-19 16:18] LABS: SARS-COV-2 RT PCR NEGATIVE (NEGATIVE)
[2021-11-19] MEDS ORDERED: ACETAMINOPHEN 325 MG TABLET ONE (16:32)
--- NOTE | 2021-11-19 17:07 | EDPHYS ---
Physician Documentation [facility] Name: Aimee Randolph Age: 41 yrs Sex: Female : 1980 Arrival Date: 11/19/2021 Time: 14:42 Bed 11 Private MD: ED Physician Jose Maria Han HPI: 11/19 14:49 This 41 yrs old Female presents to ER via Ambulatory with complaints of Cough, jmm Sore Throat, Headache. 14:49 The patient or guardian reports cough. Onset: The symptoms/episode began/occurred jmm gradually, 1 week(s) ago. Modifying factors: The symptoms are alleviated by nothing, the symptoms are aggravated by nothing. Associated signs and symptoms: Pertinent positives: sore throat. This is a 41 year old female with no chronic medical conditions that presents to the ED with complaints of cough, shortness of breath, sore throat beginning approx 1 week ago. Patient states testing negative for covid earlier this week. Continues to have sore throat, headache. . 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 - Social history:: Smoking status: Patient denies any tobacco usage or history of. Patient/guardian denies using alcohol. ROS: 14:49 Constitutional: Positive for body aches, chills. jmm 14:49 ENT: Positive for sore throat. 14:49 Respiratory: Positive for cough, shortness of breath, wheezing. 14:49 Neuro: Positive for headache. 14:49 All other systems are negative. Exam: 14:49 Head/Face: atraumatic. Eyes: EOMI, no conjunctival erythema appreciated jmm 14:49 Neck: Trachea midline, Supple Chest/axilla: Normal chest wall appearance and motion. Cardiovascular: Regular rate and rhythm. No edema appreciated 14:49 Abdomen/GI: Non distended, soft Back: Normal ROM Skin: General appearance color normal MS/ Extremity: Moves all extremities, no obvious deformities appreciated, no edema noted to the lower extremities Neuro: Awake and alert Psych: Behavior is normal, Mood is normal, Patient is cooperative and pleasant 14:49 Constitutional: The patient appears alert, awake. 14:49 ENT: Posterior pharynx: erythema, that is mild. 14:49 Respiratory: the patient does not display signs of respiratory distress, Respirations: normal, Breath sounds: wheezing: that is mild, is scattered. Vital Signs: 14:50 BP 124 / 79; Pulse 97; Resp 20; Temp 98.3(TE); Pulse Ox 97% on R/A; Weight 81.65 kg; ld1 Height 5 ft. 0 in. (152.40 cm); Pain 0/10; 17:12 BP 119 / 82; Pulse 94; Resp 20; lr4 17:12 Pulse Ox 98% ; lr4 14:50 Body Mass Index 35.15 (81.65 kg, 152.40 cm) ld1 MDM: 15:13 Patient medically screened. [facility] 17:05 Data reviewed: vital signs, nurses notes. Counseling: I had a detailed discussion with [facility] the patient and/or guardian regarding: the historical points, exam findings, and any diagnostic results supporting the discharge/admit diagnosis, lab results, radiology results, to return to the emergency department if symptoms worsen or persist or if there are any questions or concerns that arise at home. ED course: Patient is alert and non toxic in appearance in the ED. No signs of resp distress. Patient advised to follow up with pcp and otherwise given strict return precautions. . 11/19 14:48 Order name: COVID-19/FLU A+B (Document "Date of Onset" if Symptomatic); Complete Time: [facility] 16:24 11/19 14:48 Order name: Strep; Complete Time: 16:24 [facility] 11/19 16:12 Order name: Throat Culture EDMS Administered Medications: 15:38 Drug: Decadron (dexamethasone) 10 mg Route: IM; Site: left gluteus; lr4 15:38 Drug: Xopenex (levalbuterol) (3) 1.25 mg Route: Inhalation; lr4 16:31 Drug: Tylenol 650 mg Route: PO; lr4 Disposition: 18:46 Co-signature as Attending Physician, Jose Maria Han MD I agree with the assessment and rn plan of care. Attestation: The patient's history, exam findings, diagnostics, and a summary of any interventions or procedures was reviewed in detail with August DE SOUZA. Disposition Summary: 11/19/21 17:06 Discharge Ordered Location: Home [facility] Condition: Stable [facility] Diagnosis - Acute pharyngitis, unspecified jmm Followup: [facility] - With: Private Physician - When: 2 - 3 days - Reason: Recheck today's complaints, Continuance of care, Re-evaluation by your physician Discharge Instructions: - Discharge Summary Sheet [facility] - Pharyngitis [facility] Forms: - Medication Reconciliation Form [facility] - Thank You Letter [facility] - Antibiotic Education [facility] - Prescription Opioid Use [facility] Prescriptions: - albuterol sulfate 90 mcg/actuation Inhalation HFA aerosol inhaler - inhale 2 puff by INHALATION route every 4-6 hours; 1 Pump; Refills: 0, Product [facility] Selection Permitted - Zithromax Z-Heladio 250 mg Oral Tablet - take 1 tablet by ORAL route as directed for 5 days Day 1 - take two (2) tablets [facility] one time. Day 2, 3, 4 , 5 take one (1) tablet once daily.; 6 tablet; Refills: 0, Product Selection Permitted - Bromfed DM 2-30-10 mg/5 mL Oral syrup - take 10 milliliter by ORAL route every 4 hours; 200 milliliter; Refills: 0, jmm Product Selection Permitted Signatures: Dispatcher [employer] August Hernandez PA PA [facility] Jose Maria Han MD MD rn Dibbern, Lauren RN RN ld1 Vanesa Thompson RN RN lr4 Corrections: (The following items were deleted from the chart) 14:52 14:51 PSHx: None; ld1 ld1
--- NOTE | 2021-11-19 17:07 | ER ---
Nurse's Notes [facility] Name: Aimee Randolph Age: 41 yrs Sex: Female : 1980 Arrival Date: 11/19/2021 Time: 14:42 Bed 11 Private MD: Diagnosis: Acute pharyngitis, unspecified Presentation: 11/19 14:50 Chief complaint: Patient states: cough, sore throat, sneezing, running nose, headache X ld1 1 week. Coronavirus screen: Client presents with at least one sign or symptom that may indicate coronavirus-19. Standard/surgical mask placed on the client. Ebola Screen: No symptoms or risks identified at this time. Initial Sepsis Screen: Does the patient meet any 2 criteria? No. Patient's initial sepsis screen is negative. Does the patient have a suspected source of infection? No. Patient's initial sepsis screen is negative. Risk Assessment: Do you want to hurt yourself or someone else? Patient reports no desire to harm self or others. Onset of symptoms was November 19, 2021. 14:50 Method Of Arrival: Ambulatory ld1 14:50 Acuity: LAURITA 4 ld1 Triage Assessment: 14:51 General: Appears in no apparent distress. comfortable, Behavior is calm, cooperative, ld1 appropriate for age. Pain: Denies pain. EENT: No signs and/or symptoms were reported regarding the EENT system. EENT: Reports nasal discharge. Neuro: Level of Consciousness is awake, alert, obeys commands, Oriented to person, place, time, situation. Respiratory: Airway is patent Respiratory effort is even, unlabored. 15:23 General: Appears in no apparent distress. comfortable, Behavior is calm, cooperative. lr4 Neuro: No deficits noted. Cardiovascular: No deficits noted. Respiratory: Reports cough that is productive, persistent since 11/14/21 Airway is patent Respiratory effort is even, unlabored, Respiratory pattern is regular, Sputum is thick, yellow Breath sounds are clear bilaterally. Onset: The symptoms/episode began/occurred x 1 wk, the patient has moderate shortness of breath. 16:59 General: Pt departed ed ambulatory with all personal effects,pt vss, pt in nad. 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 - Social history:: Smoking status: Patient denies any tobacco usage or history of. Patient/guardian denies using alcohol. Screenin:58 Abuse screen: Denies threats or abuse. Nutritional screening: No deficits noted. lr4 Tuberculosis screening: Never had TB. Possible symptoms: cough for more than 2 weeks, Risk factors: None Intervention for positive screen: ED Physician notified, . 16:58 Fall Risk None identified. lr4 Assessment: 16:59 EENT: Throat is reddened. lr4 Vital Signs: 14:50 BP 124 / 79; Pulse 97; Resp 20; Temp 98.3(TE); Pulse Ox 97% on R/A; Weight 81.65 kg; ld1 Height 5 ft. 0 in. (152.40 cm); Pain 0/10; 17:12 BP 119 / 82; Pulse 94; Resp 20; lr4 17:12 Pulse Ox 98% ; lr4 14:50 Body Mass Index 35.15 (81.65 kg, 152.40 cm) ld1 ED Course: 14:42 Patient arrived in ED. mr 14:44 Auguts Stanley PA is PHCP. [facility] 14:44 Jose Maria Han MD is Attending Physician. [facility] 14:51 Triage completed. ld1 14:51 Arm band placed on right wrist. ld1 15:38 Strep Sent. lr4 15:38 COVID-19/FLU A+B (Document "Date of Onset" if Symptomatic) Sent. lr4 16:58 No provider procedures requiring assistance completed. lr4 16:59 Patient has correct armband on for positive identification. Bed in low position. Call lr4 light in reach. 16:59 Patient did not have IV access during this emergency room visit. lr4 Administered Medications: 15:38 Drug: Decadron (dexamethasone) 10 mg Route: IM; Site: left gluteus; lr4 15:38 Drug: Xopenex (levalbuterol) (3) 1.25 mg Route: Inhalation; lr4 16:31 Drug: Tylenol 650 mg Route: PO; lr4 Outcome: 16:58 Condition: stable lr4 16:58 Discharged to home lr4 16:59 Discharge instructions given to patient. lr4 17:06 Discharge ordered by . phuong 17:13 Patient left the ED. lr4 Signatures: August Stanley PA PA jmm RiveraBrandi mr Perlita Ortez RN RN ld1 Vanesa Thompson RN RN lr4 Corrections: (The following items were deleted from the chart) 14:52 14:51 PSHx: None; ld1 ld1
[2021-11-19 17:40] VITALS: TEMP 98.3
[2021-11-19 17:41] VITALS: BP 119/82; O2SAT 98
== END 2021-11-19 17:13 | disposition home or self-care (01) ==
LOC: ER 14:38
DX: J02.9 Acute pharyngitis, unspecified (principal); Z20.822 Contact with and (suspected) exposure to COVID-19; Z88.1 Allergy status to other antibiotic agents; Z91.040 Latex allergy status; Z91.048 Other nonmedicinal substance allergy status
CPT/HCPCS: 87070; 87081; 0240U; 96372; 99284; J1100

== ENCOUNTER 2022-10-01 19:21 | Emergency (ER) | payer OTHER ==
--- OUTSIDE RECORDS SUMMARY | 2022-10-01 19:37 | XMS REPORT | Continuity of Care Document ---
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 Claritin 10 2021-0 No 1mg mg tablet 3- 00:00: 00 fluticasone 2-0 No 2mcg/ac propionate 3 tuation 50 00:00: mcg/actuati 00 on nasal spray,suspe nsion Claritin 10 2021-0 No 1mg mg tablet 3- 00:00: 00 fluticasone 2021-0 No 2mcg/ac propionate 3- tuation 50 00:00: mcg/actuati 00 on nasal spray,suspe nsion Claritin 10 2021-0 No 1mg mg tablet 3- 00:00: 00 fluticasone 2021-0 No 2mcg/ac propionate 3 tuation 50 00:00: mcg/actuati 00 on nasal spray,suspe nsion Claritin 10 2021-0 No 1mg mg tablet 3 00:00: 00 fluticasone 2021-0 No 2mcg/ac propionate 3 tuation 50 00:00: mcg/actuati 00 on nasal spray,suspe nsion Claritin 10 2021-0 No 1mg mg tablet 3 00:00: 00 fluticasone 2-0 No 2mcg/ac propionate 3-11 tuation 50 00:00: mcg/actuati 00 on nasal spray,suspe nsion ProAir HFA 2021-0 No 2mcg/ac 90 2-16 tuation mcg/actuati 00:00: on aerosol 00 inhaler Claritin 10 2021-0 No 1mg mg tablet 2-16 00:00: 00 prednisone 2-0 No mg 20 mg 2-16 tablet 00:00: 00 fluticasone 2-0 No 2mcg/ac propionate 2-16 tuation 50 00:00: mcg/actuati 00 on nasal spray,suspe nsion benzonatate 2022-0 No 1mg 100 mg 2-16 capsule 00:00: 00 Dose 2-0 No Unknown 2-16 00:00: 00 Claritin 10 2-0 No 1mg mg tablet 2-16 00:00: 00 prednisone 2022-0 No mg 20 mg 2-16 tablet 00:00: 00 fluticasone 2-0 No 2mcg/ac propionate 2-16 tuation 50 00:00: mcg/actuati 00 on nasal spray,suspe nsion Dose 2-0 No Unknown 2-16 00:00: 00 Dose 2-0 No Unknown 2-16 00:00: 00 Claritin 10 2-0 No 1mg mg tablet 2-16 00:00: 00 prednisone 2-0 No mg 20 mg 2-16 tablet 00:00: 00 fluticasone 2-0 No 2mcg/ac propionate 2-16 tuation 50 00:00: mcg/actuati 00 on nasal spray,suspe nsion Dose 2021-0 No Unknown 2-16 00:00: 00 Dose 2-0 No Unknown 2-16 00:00: 00 Claritin 10 2-0 No 1mg mg tablet 2-16 00:00: 00 prednisone 2-0 No mg 20 mg 2-16 tablet 00:00: 00 fluticasone 2-0 No 2mcg/ac propionate 2-16 tuation 50 00:00: mcg/actuati 00 on nasal spray,suspe nsion Dose 2-0 No Unknown 2-16 00:00: 00 ProAir HFA 2-0 No 2mcg/ac 90 2-16 tuation mcg/actuati 00:00: on aerosol 00 inhaler Claritin 10 2-0 No 1mg mg tablet 2-16 00:00: 00 prednisone 2-0 No mg 20 mg 2-16 tablet 00:00: 00 fluticasone 2-0 No 2mcg/ac propionate 2-16 tuation 50 00:00: mcg/actuati 00 on nasal spray,suspe nsion benzonatate 2-0 No 1mg 100 mg 2-16 capsule 00:00: 00 ProAir HFA 2-0 No 2mcg/ac 90 2-16 tuation mcg/actuati 00:00: on aerosol 00 inhaler Claritin 10 2-0 No 1mg mg tablet 2-16 00:00: 00 prednisone 2-0 No mg 20 mg 2-16 tablet 00:00: 00 fluticasone 2-0 No 2mcg/ac propionate 2-16 tuation 50 00:00: mcg/actuati 00 on nasal spray,suspe nsion benzonatate 2-0 No 1mg 100 mg 2-16 capsule 00:00: 00 ProAir HFA 2-0 No 2mcg/ac 90 2-16 tuation mcg/actuati 00:00: on aerosol 00 inhaler Claritin 10 2021-0 No 1mg mg tablet 2-16 00:00: 00 prednisone 2-0 No mg 20 mg 2-16 tablet 00:00: 00 fluticasone 2-0 No 2mcg/ac propionate 2-16 tuation 50 00:00: mcg/actuati 00 on nasal spray,suspe nsion benzonatate 2021-0 No 1mg 100 mg 2-16 capsule 00:00: 00 ProAir HFA 2-0 No 2mcg/ac 90 2-16 tuation mcg/actuati 00:00: on aerosol 00 inhaler Claritin 10 2021-0 No 1mg mg tablet 2-16 00:00: 00 prednisone 2-0 No mg 20 mg 2-16 tablet 00:00: 00 fluticasone 2-0 No 2mcg/ac propionate 2-16 tuation 50 00:00: mcg/actuati 00 on nasal spray,suspe nsion benzonatate 2021-0 No 1mg 100 mg 2-16 capsule 00:00: 00 ProAir HFA 2-0 No 2mcg/ac 90 2-16 tuation mcg/actuati 00:00: on aerosol 00 inhaler Claritin 10 2-0 No 1mg mg tablet 2-16 00:00: 00 prednisone 2022-0 No mg 20 mg 2-16 tablet 00:00: 00 fluticasone 2-0 No 2mcg/ac propionate 2-16 tuation 50 00:00: mcg/actuati 00 on nasal spray,suspe nsion benzonatate 2-0 No 1mg 100 mg 2-16 capsule 00:00: 00 ProAir HFA 2-0 No 2mcg/ac 90 2-16 tuation mcg/actuati 00:00: on aerosol 00 inhaler Claritin 10 2-0 No 1mg mg tablet 2-16 00:00: 00 prednisone 2022-0 No mg 20 mg 2-16 tablet 00:00: 00 fluticasone 2022-0 No 2mcg/ac propionate 2-16 tuation 50 00:00: mcg/actuati 00 on nasal spray,suspe nsion benzonatate 2-0 No 1mg 100 mg 2-16 capsule 00:00: 00 fluconazole 2022-0 No 1mg 150 mg 1-31 tablet 00:00: 00 metronidazo 2022-0 No 1mg le 500 mg 1-31 tablet 00:00: 00 fluconazole 2022-0 No 1mg 150 mg 1-31 tablet 00:00: 00 metronidazo 2022-0 No 1mg le 500 mg 1-31 tablet 00:00: 00 fluconazole 2022-0 No 1mg 150 mg 1-31 tablet 00:00: 00 metronidazo 2022-0 No 1mg le 500 mg 1-31 tablet 00:00: 00 fluconazole 2022-0 No 1mg 150 mg 1-31 tablet 00:00: 00 metronidazo 2022-0 No 1mg le 500 mg 1-31 tablet 00:00: 00 fluconazole 2022-0 No 1mg 150 mg 1-31 tablet 00:00: 00 metronidazo 2022-0 No 1mg le 500 mg 1-31 tablet 00:00: 00 fluconazole 2022-0 No 1mg 150 mg 1-31 tablet 00:00: 00 metronidazo 2022-0 No 1mg le 500 mg 1-31 tablet 00:00: 00 fluconazole 2022-0 No 1mg 150 mg 1-31 tablet 00:00: 00 metronidazo 2022-0 No 1mg le 500 mg 1-31 tablet 00:00: 00 fluconazole 2022-0 No 1mg 150 mg 1-31 tablet 00:00: 00 metronidazo 2022-0 No 1mg le 500 mg 1-31 tablet 00:00: 00 fluconazole 2022-0 No 1mg 150 mg 1-31 tablet 00:00: 00 metronidazo 2022-0 No 1mg le 500 mg 1-31 tablet 00:00: 00 fluconazole 2022-0 No 1mg 150 mg 1-31 tablet 00:00: 00 metronidazo 2022-0 No 1mg le 500 mg 1-31 tablet 00:00: 00 fluconazole 2022-0 No 1mg 150 mg 1-18 tablet 00:00: 00 metronidazo 2022-0 No 1mg le 500 mg 1-18 tablet 00:00: 00 fluconazole 2022-0 No 1mg 150 mg 1-18 tablet 00:00: 00 metronidazo 2022-0 No 1mg le 500 mg 1-18 tablet 00:00: 00 fluconazole 2022-0 No 1mg 150 mg 1-18 tablet 00:00: 00 metronidazo 2022-0 No 1mg le 500 mg 1-18 tablet 00:00: 00 fluconazole 2022-0 No 1mg 150 mg 1-18 tablet 00:00: 00 metronidazo 2022-0 No 1mg le 500 mg 1-18 tablet 00:00: 00 fluconazole 2022-0 No 1mg 150 mg 1-18 tablet 00:00: 00 metronidazo 2022-0 No 1mg le 500 mg 1-18 tablet 00:00: 00 fluconazole 2022-0 No 1mg 150 mg 1-18 tablet 00:00: 00 metronidazo 2022-0 No 1mg le 500 mg 1-18 tablet 00:00: 00 fluconazole 2022-0 No 1mg 150 mg 1-18 tablet 00:00: 00 metronidazo 2022-0 No 1mg le 500 mg 1-18 tablet 00:00: 00 fluconazole 2022-0 No 1mg 150 mg 1-18 tablet 00:00: 00 metronidazo 2022-0 No 1mg le 500 mg 1-18 tablet 00:00: 00 fluconazole 2022-0 No 1mg 150 mg 1-18 tablet 00:00: 00 metronidazo 2022-0 No 1mg le 500 mg 1-18 tablet 00:00: 00 fluconazole 2022-0 No 1mg 150 mg 1-18 tablet 00:00: 00 metronidazo 2022-0 No 1mg le 500 mg 1-18 tablet 00:00: 00 amoxicillin 1-1 No 1mg 875 mg 2-15 tablet 00:00: 00 Bromfed DM 1-1 No 10mg/5 2 mg-30 2-15 mL mg-10 mg/5 00:00: mL oral 00 syrup amoxicillin 1-1 No 1mg 875 mg 2-15 tablet 00:00: 00 Bromfed DM 2020-1 No 10mg/5 2 mg-30 2-15 mL mg-10 mg/5 00:00: mL oral 00 syrup amoxicillin 2020-1 No 1mg 875 mg 2-15 tablet 00:00: 00 Bromfed DM 2020-1 No 10mg/5 2 mg-30 2-15 mL mg-10 mg/5 00:00: mL oral 00 syrup amoxicillin 2020-1 No 1mg 875 mg 2-15 tablet 00:00: 00 Bromfed DM 2020-1 No 10mg/5 2 mg-30 2-15 mL mg-10 mg/5 00:00: mL oral 00 syrup amoxicillin 2020-1 No 1mg 875 mg 2-15 tablet 00:00: 00 Bromfed DM 2020-1 No 10mg/5 2 mg-30 2-15 mL mg-10 mg/5 00:00: mL oral 00 syrup amoxicillin 2020-1 No 1mg 875 mg 2-15 tablet 00:00: 00 Bromfed DM 2020-1 No 10mg/5 2 mg-30 2-15 mL mg-10 mg/5 00:00: mL oral 00 syrup amoxicillin 2020-1 No 1mg 875 mg 2-15 tablet 00:00: 00 Bromfed DM 2020-1 No 10mg/5 2 mg-30 2-15 mL mg-10 mg/5 00:00: mL oral 00 syrup amoxicillin 2020-1 No 1mg 875 mg 2-15 tablet 00:00: 00 Bromfed DM 2020-1 No 10mg/5 2 mg-30 2-15 mL mg-10 mg/5 00:00: mL oral 00 syrup amoxicillin 2020-1 No 1mg 875 mg 2-15 tablet 00:00: 00 Bromfed DM 2020-1 No 10mg/5 2 mg-30 2-15 mL mg-10 mg/5 00:00: mL oral 00 syrup amoxicillin 2020-1 No 1mg 875 mg 2-15 tablet 00:00: 00 Bromfed DM 2020-1 No 10mg/5 2 mg-30 2-15 mL mg-10 mg/5 00:00: mL oral 00 syrup metronidazo 2020-1 No 1mg le 500 mg 2-12 tablet 00:00: 00 metronidazo 2020-1 No 1mg le 500 mg 2-12 tablet 00:00: 00 metronidazo 2020-1 No 1mg le 500 mg 2-12 tablet 00:00: 00 metronidazo 2020-1 No 1mg le 500 mg 2-12 tablet 00:00: 00 metronidazo 2020-1 No 1mg le 500 mg 2-12 tablet 00:00: 00 metronidazo 2020-1 No 1mg le 500 mg 2-12 tablet 00:00: 00 metronidazo 2020-1 No 1mg le 500 mg 2-12 tablet 00:00: 00 metronidazo 2020-1 No 1mg le 500 mg 2-12 tablet 00:00: 00 metronidazo 2020-1 No 1mg le 500 mg 2-12 tablet 00:00: 00 metronidazo 2020-1 No 1mg le 500 mg 2-12 tablet 00:00: 00 ibuprofen 2020-1 No 1mg 800 mg 2-11 tablet 00:00: 00 ibuprofen 2020-1 No 1mg 800 mg 2-11 tablet 00:00: 00 ibuprofen 2020-1 No 1mg 800 mg 2-11 tablet 00:00: 00 ibuprofen 2020-1 No 1mg 800 mg 2-11 tablet 00:00: 00 ibuprofen 2020-1 No 1mg 800 mg 2-11 tablet 00:00: 00 ibuprofen 2020-1 No 1mg 800 mg 2-11 tablet 00:00: 00 ibuprofen 2020-1 No 1mg 800 mg 2-11 tablet 00:00: 00 ibuprofen 2020-1 No 1mg 800 mg 2-11 tablet 00:00: 00 ibuprofen 2020-1 No 1mg 800 mg 2-11 tablet 00:00: 00 ibuprofen 2020-1 No 1mg 800 mg 2-11 tablet 00:00: 00 Ferrous Ferrous 2020-0 No 1{table QD Ferrous Sulfate 325 Sulfate 325 9-08 t} Sulfate (65 Fe) mg (65 Fe) mg 00:00: 325 (65 00 Fe) mg Ferrous Ferrous 2020-0 No 1{table QD Ferrous Sulfate 325 Sulfate 325 9-08 t} Sulfate (65 Fe) mg (65 Fe) mg 00:00: 325 (65 00 Fe) mg Macrobid 2020-0 No 1mg 100 mg 6-05 capsule 00:00: 00 Macrobid 2021-0 No 1mg 100 mg 6-05 capsule 00:00: 00 Macrobid 2021-0 No 1mg 100 mg 6-05 capsule 00:00: 00 Macrobid 2021-0 No 1mg 100 mg 6-05 capsule 00:00: 00 Macrobid 2021-0 No 1mg 100 mg 6-05 capsule 00:00: 00 Macrobid 2021-0 No 1mg 100 mg 6-05 capsule 00:00: 00 Macrobid 2021-0 No 1mg 100 mg 6-05 capsule 00:00: 00 Macrobid 2021-0 No 1mg 100 mg 6-05 capsule 00:00: 00 Macrobid 2021-0 No 1mg 100 mg 6-05 capsule 00:00: 00 Macrobid 2021-0 No 1mg 100 mg 6-05 capsule 00:00: 00 Flagyl 500 2021-0 No 1mg mg tablet 03-05 00:00: 00 Diflucan 2021-0 No 1mg 150 mg 6-04 tablet 00:00: 00 Flagyl 500 2021-0 No 1mg mg tablet 03-05 00:00: 00 Diflucan 2021-0 No 1mg 150 mg 6-04 tablet 00:00: 00 Flagyl 500 2021-0 No 1mg mg tablet 03-05 00:00: 00 Flagyl 500 2021-0 No 1mg mg tablet 03-05 00:00: 00 Diflucan 2021-0 No 1mg 150 mg 6-04 tablet 00:00: 00 Diflucan 2021-0 No 1mg 150 mg 6-04 tablet 00:00: 00 Flagyl 500 2021-0 No 1mg mg tablet 03-05 00:00: 00 Diflucan 2021-0 No 1mg 150 mg 6-04 tablet 00:00: 00 Flagyl 500 2021-0 No 1mg mg tablet 03-05 00:00: 00 Diflucan 2021-0 No 1mg 150 mg 6-04 tablet 00:00: 00 Flagyl 500 2021-0 No 1mg mg tablet 03-05 00:00: 00 Diflucan 2021-0 No 1mg 150 mg 6-04 tablet 00:00: 00 Flagyl 500 2021-0 No 1mg mg tablet 03-05 00:00: 00 Diflucan 2021-0 No 1mg 150 mg 6-04 tablet 00:00: 00 Flagyl 500 1-0 No 1mg mg tablet 03-05 00:00: 00 Diflucan 1-0 No 1mg 150 mg 6-04 tablet 00:00: 00 Flagyl 500 1-0 No 1mg mg tablet 03-05 00:00: 00 Diflucan 1-0 No 1mg 150 mg 6-04 tablet 00:00: 00 Singulair Singulair 2020-0 No 1{table QD Singulair 10 MG 10 MG 2-02 t} 10 MG 00:00: 00 Singulair Singulair 2020-0 No 1{table QD Singulair 10 MG 10 MG 2-02 t} 10 MG 00:00: 00 Singulair Singulair 2020-0 No 1{table QD Singulair 10 MG 10 MG 2-02 t} 10 MG 00:00: 00 Singulair Singulair 1-0 No 1{table QD Singulair 10 MG 10 MG 2-02 t} 10 MG 00:00: 00 Singulair Singulair 2020-0 No 1{table QD Singulair 10 MG 10 MG 2-02 t} 10 MG 00:00: 00 Singulair Singulair 2020-0 No 1{table QD Singulair 10 MG 10 MG 2-02 t} 10 MG 00:00: 00 Kenalog Kenalog 2020-0 No 40mg Common (Triamcinol (Triamcinol 2-02 S pirit one) one) 00:00: - [facility] 00 [facility] Singulair Singulair 1-0 No 1{table QD Singulair 10 MG 10 MG 2-02 t} 10 MG 00:00: 00 Kenalog Kenalog 1-0 No 40mg Common (Triamcinol (Triamcinol 2-02 S pirit one) one) 00:00: - [facility] 00 [facility] Acetaminoph Acetaminoph 2020-0 2021- No 1{table BID Acetaminop en 500 MG en 500 MG 2- 03-04 t_as_ne hen 500 MG 00:00: 00:00 eded} 00 :00 Acetaminoph Acetaminoph 2020-0 2021- No 1{table BID Acetaminop en 500 MG en 500 MG -11 04-04 t_as_ne hen 500 MG 00:00: 00:00 eded} 00 :00 Zyrtec yrte 2020- No 1{table BID Zyrtec Allergy 10 Allergy 10 11-0316 t} Allergy 10 MG MG 00:00: 00:00 MG 00 :00 Zyrtec Zyrtec 2020- No 1{table BID Zyrtec Allergy 10 Allergy 10 11-03 t} Allergy 10 MG MG 00:00: 00:00 MG 00 :00 Pulse Pulse 2019-10 No Pulse Oximeter Oximeter 2-22 Oximeter For Finger For Finger 00:00: For Finger - - 00 - Singulair Singulair 2019-10 No 1{table QD Singulair 10 MG 10 MG 2-22 t} 10 MG 00:00: 00 Albuterol Albuterol 2019-10 No 2{puffs 6xD Albuterol Sulfate HFA Sulfate HFA 2-22 _as_nee Sulfate 108 (90 108 (90 00:00: ded} HFA 108 Base) Base) 00 (90 Base) MCG/ACT MCG/ACT MCG/ACT Pulse Pulse 2019-10 No Pulse Oximeter Oximeter 2-22 Oximeter For Finger For Finger 00:00: For Finger - - 00 - Singulair Singulair 2019-10 No 1{table QD Singulair 10 MG 10 MG 2-22 t} 10 MG 00:00: 00 Albuterol Albuterol 2019-10 No 2{puffs 6xD Albuterol Sulfate HFA Sulfate HFA 2-22 _as_nee Sulfate 108 (90 108 (90 00:00: ded} HFA 108 Base) Base) 00 (90 Base) MCG/ACT MCG/ACT MCG/ACT Pulse Pulse 2019-10 No Pulse Oximeter Oximeter 2-22 Oximeter For Finger For Finger 00:00: For Finger - - 00 - Albuterol Albuterol 2019-10 No 2{puffs 6xD Albuterol Sulfate HFA Sulfate HFA 2-22 _as_nee Sulfate 108 (90 108 (90 00:00: ded} HFA 108 Base) Base) 00 (90 Base) MCG/ACT MCG/ACT MCG/ACT Pulse Pulse 2019-10 No Pulse Oximeter Oximeter 2-22 Oximeter For Finger For Finger 00:00: For Finger - - 00 - Albuterol Albuterol 2019-10 No 2{puffs 6xD Albuterol Sulfate HFA Sulfate HFA 2-22 _as_nee Sulfate 108 (90 108 (90 00:00: ded} HFA 108 Base) Base) 00 (90 Base) MCG/ACT MCG/ACT MCG/ACT Pulse Pulse 2019-10 No Pulse Oximeter Oximeter 2-22 Oximeter For Finger For Finger 00:00: For Finger - - 00 - Pulse Pulse 2019-10 No Pulse Oximeter Oximeter 2-22 Oximeter For Finger For Finger 00:00: For Finger - - 00 - Albuterol Albuterol 2019-10 No 2{puffs 6xD Albuterol Sulfate HFA Sulfate HFA 2-22 _as_nee Sulfate 108 (90 108 (90 00:00: ded} HFA 108 Base) Base) 00 (90 Base) MCG/ACT MCG/ACT MCG/ACT Pulse Pulse 2019-10 No Pulse Oximeter Oximeter 2-22 Oximeter For Finger For Finger 00:00: For Finger - - 00 - Albuterol Albuterol 2019-10 No 2{puffs 6xD Albuterol Sulfate HFA Sulfate HFA 2-22 _as_nee Sulfate 108 (90 108 (90 00:00: ded} HFA 108 Base) Base) 00 (90 Base) MCG/ACT MCG/ACT MCG/ACT Pulse Pulse 2019-10 No Pulse Oximeter Oximeter 2-22 Oximeter For Finger For Finger 00:00: For Finger - - 00 - Albuterol Albuterol 2019-10 No 2{puffs 6xD Albuterol Sulfate HFA Sulfate HFA 2-22 _as_nee Sulfate 108 (90 108 (90 00:00: ded} HFA 108 Base) Base) 00 (90 Base) MCG/ACT MCG/ACT MCG/ACT Albuterol Albuterol 2019-10 No 2{puffs 6xD Albuterol Sulfate HFA Sulfate HFA 2-22 _as_nee Sulfate 108 (90 108 (90 00:00: ded} HFA 108 Base) Base) 00 (90 Base) MCG/ACT MCG/ACT MCG/ACT Pulse Pulse 2019-10 No Pulse Oximeter Oximeter 2-22 Oximeter For Finger For Finger 00:00: For Finger - - 00 - Albuterol Albuterol 2019-10 No 2{puffs 6xD Albuterol Sulfate HFA Sulfate HFA 2-22 _as_nee Sulfate 108 (90 108 (90 00:00: ded} HFA 108 Base) Base) 00 (90 Base) MCG/ACT MCG/ACT MCG/ACT Pulse Pulse 2019-10 No Pulse Oximeter Oximeter 2-22 Oximeter For Finger For Finger 00:00: For Finger - - 00 - Singulair Singulair 2019-10 No 1{table QD Singulair 10 MG 10 MG 11-23 t} 10 MG 00:00: 00 Albuterol Albuterol 2019-10 No 2{puffs 6xD Albuterol Sulfate HFA Sulfate HFA 2-22 _as_nee Sulfate 108 (90 108 (90 00:00: ded} HFA 108 Base) Base) 00 (90 Base) MCG/ACT MCG/ACT MCG/ACT Acetaminoph Acetaminoph 2019-10- No 1{table BID Acetaminop en 500 MG en 500 MG 11-23 t_as_ne hen 500 MG 00:00: 00:00 eded} 00 :00 Acetaminoph Acetaminoph 2019-10- No 1{table BID Acetaminop en 500 MG en 500 MG 11-23 t_as_ne hen 500 MG 00:00: 00:00 eded} 00 :00 Acetaminoph Acetaminoph 2019-10- No 1{table BID Acetaminop en 500 MG en 500 MG 11-23 t_as_ne hen 500 MG 00:00: 00:00 eded} 00 :00 Zyrtec Zyrtec 2019-10- No 1{table BID Zyrtec Allergy 10 Allergy 10 11-23 t} Allergy 10 MG MG 00:00: 00:00 MG 00 :00 Zyrtec Zyrtec 2019-10- No 1{table BID Zyrtec Allergy 10 Allergy 10 11-23 t} Allergy 10 MG MG 00:00: 00:00 MG 00 :00 Zyrtec Zyrtec 2019-10- No 1{table BID Zyrtec Allergy 10 Allergy 10 2-22 -05 t} Allergy 10 MG MG 00:00: 00:00 MG 00 :00 Flagyl 500 2019-0 No 1mg mg tablet 06-26 00:00: 00 Flagyl 500 2019-0 No 1mg mg tablet 06-26 00:00: 00 Flagyl 500 2019-0 No 1mg mg tablet 06-26 00:00: 00 Flagyl 500 2019-0 No 1mg mg tablet 06-26 00:00: 00 Flagyl 500 2019-0 No 1mg mg tablet 06-26 00:00: 00 Flagyl 500 2019-0 No 1mg mg tablet 06-26 00:00: 00 Flagyl 500 2019-0 No 1mg mg tablet 06-26 00:00: 00 Flagyl 500 2019-0 No 1mg mg tablet 06-26 00:00: 00 Flagyl 500 2019-0 No 1mg mg tablet 06-26 00:00: 00 Flagyl 500 2019-0 No 1mg mg tablet 06-26 00:00: 00 gabapentin 2019-0 No 1mg 300 mg 9-24 capsule 00:00: 00 gabapentin 2019-0 No 1mg 300 mg 9-24 capsule 00:00: 00 gabapentin 2019-0 No 1mg 300 mg 9-24 capsule 00:00: 00 gabapentin 2019-0 No 1mg 300 mg 9-24 capsule 00:00: 00 gabapentin 2019-0 No 1mg 300 mg 9-24 capsule 00:00: 00 gabapentin 2019-0 No 1mg 300 mg 9-24 capsule 00:00: 00 gabapentin 2019-0 No 1mg 300 mg 9-24 capsule 00:00: 00 gabapentin 2019-0 No 1mg 300 mg 9-24 capsule 00:00: 00 gabapentin 2019-0 No 1mg 300 mg 9-24 capsule 00:00: 00 gabapentin 2019-0 No 1mg 300 mg 9-24 capsule 00:00: 00 ParaGard T 2019-0 No 1square 380A 380 7-31 mm square mm 00:00: intrauterin 00 e device ParaGard T 2019-0 No 1square 380A 380 7-31 mm square mm 00:00: intrauterin 00 e device Dose 2019-0 No Unknown 7-31 00:00: 00 Dose 2019-0 No Unknown 7- 00:00: 00 Dose 2019-0 No Unknown 7-31 00:00: 00 ParaGard T 2019-0 No 1square 380A 380 7-31 mm square mm 00:00: intrauterin 00 e device ParaGard T 2019-0 No 1square 380A 380 7-31 mm square mm 00:00: intrauterin 00 e device ParaGard T 2019-0 No 1square 380A 380 7-31 mm square mm 00:00: intrauterin 00 e device ParaGard T 2019-0 No 1square 380A 380 7-31 mm square mm 00:00: intrauterin 00 e device ParaGard T 2019-0 No 1square 380A 380 7-31 mm square mm 00:00: intrauterin 00 e device metronidazo 2019-0 No 1mg le 500 mg 7-17 tablet 00:00: 00 metronidazo 2019-0 No 1mg le 500 mg 7-17 tablet 00:00: 00 metronidazo 2019-0 No 1mg le 500 mg 7-17 tablet 00:00: 00 metronidazo 2019-0 No 1mg le 500 mg 7-17 tablet 00:00: 00 metronidazo 2019-0 No 1mg le 500 mg 7-17 tablet 00:00: 00 metronidazo 2019-0 No 1mg le 500 mg 7-17 tablet 00:00: 00 metronidazo 2019-0 No 1mg le 500 mg 7-17 tablet 00:00: 00 metronidazo 2019-0 No 1mg le 500 mg 7-17 tablet 00:00: 00 metronidazo 2019-0 No 1mg le 500 mg 7-17 tablet 00:00: 00 metronidazo 2019-0 No 1mg le 500 mg 7-17 tablet 00:00: 00 Solumedrol Solumedrol 2018-0 No 125mg Common 125mg/2ml 125mg/2ml -12 Spiri t 00:00: - [facility] 00 [facility] Solumedrol Solumedrol 2018-0 No 125mg Common 125mg/2ml 125mg/2ml 12 Spiri t 00:00: - [facility] 00 [facility] ProAir HFA ProAir HFA 2018-0 Yes [place] 2 puffs as Common 7-17 [place] needed for Spirit 00:00: sob/wheezi - [facility] 00 ng [facility] ProAir HFA ProAir HFA 2018-0 No ProAir HFA 108 (90 108 (90 7-17 108 (90 Base) Base) 00:00: Base) MCG/ACT MCG/ACT 00 MCG/ACT ProAir HFA ProAir HFA 2017-0 No ProAir HFA 108 (90 108 (90 7-17 108 (90 Base) Base) 00:00: Base) MCG/ACT MCG/ACT 00 MCG/ACT ProAir HFA ProAir HFA 2017-0 No ProAir HFA 108 (90 108 (90 7-17 108 (90 Base) Base) 00:00: Base) MCG/ACT MCG/ACT 00 MCG/ACT ProAir HFA ProAir HFA 2017-0 No ProAir HFA 108 (90 108 (90 7-17 108 (90 Base) Base) 00:00: Base) MCG/ACT MCG/ACT 00 MCG/ACT ProAir HFA ProAir HFA 2017-0 No ProAir HFA 108 (90 108 (90 7-17 108 (90 Base) Base) 00:00: Base) MCG/ACT MCG/ACT 00 MCG/ACT ProAir HFA ProAir HFA 2017-0 No ProAir HFA 108 (90 108 (90 7-17 108 (90 Base) Base) 00:00: Base) MCG/ACT MCG/ACT 00 MCG/ACT ProAir HFA ProAir HFA 2017-0 No ProAir HFA 108 (90 108 (90 7-17 108 (90 Base) Base) 00:00: Base) MCG/ACT MCG/ACT 00 MCG/ACT ProAir HFA ProAir HFA 2017-0 No ProAir HFA 108 (90 108 (90 7-17 108 (90 Base) Base) 00:00: Base) MCG/ACT MCG/ACT 00 MCG/ACT ProAir HFA ProAir HFA 2017-0 No ProAir HFA 108 (90 108 (90 7-17 108 (90 Base) Base) 00:00: Base) MCG/ACT MCG/ACT 00 MCG/ACT ProAir HFA ProAir HFA 2017-0 No ProAir HFA Common 108 (90 108 (90 7-17 108 (90 Spirit Base) Base) 00:00: Base) - [facility] MCG/ACT MCG/ACT 00 MCG/ACT [facility] ProAir HFA ProAir HFA 2017-0 No ProAir HFA 108 (90 108 (90 7-17 108 (90 Base) Base) 00:00: Base) MCG/ACT MCG/ACT 00 MCG/ACT ProAir HFA ProAir HFA 2018-0 No ProAir HFA 108 (90 108 (90 7-17 108 (90 Base) Base) 00:00: Base) MCG/ACT MCG/ACT 00 MCG/ACT Solumedrol Solumedrol 2018-0 No 125mg Common 125mg/2ml 125mg/2ml 03-23 Spiri t 00:00: - [facility] 00 [facility] Solumedrol Solumedrol 2018-0 No 125mg Common 125mg/2ml 125mg/2ml 03-23 Spiri t 00:00: - [facility] 00 [facility] metronidazo 2018-0 No 1mg le 500 mg 6-16 tablet 00:00: 00 metronidazo 2018-0 No 1mg le 500 mg 6-16 tablet 00:00: 00 metronidazo 2018-0 No 1mg le 500 mg 6-16 tablet 00:00: 00 metronidazo 2018-0 No 1mg le 500 mg 6-16 tablet 00:00: 00 metronidazo 2018-0 No 1mg le 500 mg 6-16 tablet 00:00: 00 metronidazo 2018-0 No 1mg le 500 mg 6-16 tablet 00:00: 00 metronidazo 2018-0 No 1mg le 500 mg 6-16 tablet 00:00: 00 metronidazo 2018-0 No 1mg le 500 mg 6-16 tablet 00:00: 00 metronidazo 2018-0 No 1mg le 500 mg 6-16 tablet 00:00: 00 metronidazo 2018-0 No 1mg le 500 mg 6-16 tablet 00:00: 00 metronidazo 2018-0 No 1mg le 500 mg 6-16 tablet 00:00: 00 metronidazo 2018-0 No 1mg le 500 mg 6-16 tablet 00:00: 00 metronidazo 2018-0 No 1mg le 500 mg 6-16 tablet 00:00: 00 metronidazo 2018-0 No 1mg le 500 mg 6-16 tablet 00:00: 00 metronidazo 2018-0 No 1mg le 500 mg 6-16 tablet 00:00: 00 metronidazo 2018-0 No 1mg le 500 mg 6-16 tablet 00:00: 00 metronidazo 2018-0 No 1mg le 500 mg 6-16 tablet 00:00: 00 metronidazo 2018-0 No 1mg le 500 mg 6-16 tablet 00:00: 00 metronidazo 2018-0 No 1mg le 500 mg 6-16 tablet 00:00: 00 metronidazo 2018-0 No 1mg le 500 mg 6-16 tablet 00:00: 00 Mirena 20 2018-0 No 1mcg-mg mcg/24 5-09 hours (5 00:00: yrs) 52 mg 00 intrauterin e device Mirena 20 2018-0 No 1mcg-mg mcg/24 5-09 hours (5 00:00: yrs) 52 mg 00 intrauterin e device Mirena 20 2018-0 No 1mcg-mg mcg/24 5-09 hours (5 00:00: yrs) 52 mg 00 intrauterin e device Mirena 20 2018-0 No 1mcg-mg mcg/24 5-09 hours (5 00:00: yrs) 52 mg 00 intrauterin e device Mirena 20 2018-0 No 1mcg-mg mcg/24 5-09 hours (5 00:00: yrs) 52 mg 00 intrauterin e device Mirena 20 2018-0 No 1mcg-mg mcg/24 5-09 hours (5 00:00: yrs) 52 mg 00 intrauterin e device Mirena 20 2018-0 No 1mcg-mg mcg/24 5-09 hours (5 00:00: yrs) 52 mg 00 intrauterin e device Mirena 20 2018-0 No 1mcg-mg mcg/24 5-09 hours (5 00:00: yrs) 52 mg 00 intrauterin e device Mirena 20 2018-0 No 1mcg-mg mcg/24 5-09 hours (5 00:00: yrs) 52 mg 00 intrauterin e device Mirena 20 2018-0 No 1mcg-mg mcg/24 5-09 hours (5 00:00: yrs) 52 mg 00 intrauterin e device Kenalog Kenalog 2018-0 No 40mg Common (Triamcinol (Triamcinol 3-06 S pirit one) one) 00:00: - [facility] 00 [facility] Kenalog Kenalog 2018-0 No 40mg Common (Triamcinol (Triamcinol 3-06 S pirit one) one) 00:00: - [facility] 00 [facility] fluticasone 2018-0 No 2mcg/ac 50 1-03 tuation mcg/actuati 00:00: on nasal 00 spray,suspe nsion Tessalon 2018-0 No 12mg Perles 100 1-03 mg capsule 00:00: 00 fluticasone 2018-0 No 2mcg/ac 50 1-03 tuation mcg/actuati 00:00: on nasal 00 spray,suspe nsion Tessalon 2018-0 No 12mg Perles 100 1-03 mg capsule 00:00: 00 fluticasone 2018-0 No 2mcg/ac 50 1-03 tuation mcg/actuati 00:00: on nasal 00 spray,suspe nsion Tessalon 2018-0 No 12mg Perles 100 1-03 mg capsule 00:00: 00 fluticasone 2018-0 No 2mcg/ac 50 1-03 tuation mcg/actuati 00:00: on nasal 00 spray,suspe nsion Tessalon 2018-0 No 12mg Perles 100 1-03 mg capsule 00:00: 00 fluticasone 2018-0 No 2mcg/ac 50 1-03 tuation mcg/actuati 00:00: on nasal 00 spray,suspe nsion Tessalon 2018-0 No 12mg Perles 100 1-03 mg capsule 00:00: 00 fluticasone 2018-0 No 2mcg/ac 50 1-03 tuation mcg/actuati 00:00: on nasal 00 spray,suspe nsion Tessalon 2018-0 No 12mg Perles 100 1-03 mg capsule 00:00: 00 fluticasone 2018-0 No 2mcg/ac 50 1-03 tuation mcg/actuati 00:00: on nasal 00 spray,suspe nsion fluticasone 2018-0 No 2mcg/ac 50 1-03 tuation mcg/actuati 00:00: on nasal 00 spray,suspe nsion Tessalon 2018-0 No 12mg Perles 100 1-03 mg capsule 00:00: 00 Tessalon 2018-0 No 12mg Perles 100 1-03 mg capsule 00:00: 00 fluticasone 2018-0 No 2mcg/ac 50 1-03 tuation mcg/actuati 00:00: on nasal 00 spray,suspe nsion Tessalon No 12mg Perles 100 1-03 mg capsule 00:00: 00 fluticasone No 2mcg/ac 50 1-03 tuation mcg/actuati 00:00: on nasal 00 spray,suspe nsion Tessalon No 12mg Perles 100 1-03 mg capsule 00:00: 00 norethindro 2016-10 Yes 1{tbl} Take 1 Un renate ne 0.35 mg 2-01 tablet by ity of tablet 00:00: mouth [place] 00 daily. Medical Branch cyclobenzap 2016-10 Yes 5mg Take 1 Univ ers rine 5 mg 1-05 tablet by ity o f tablet 00:00: mouth 3 [place] 00 (three) Medical times Branch daily. pentazocine 2016-10 Yes 1{tbl} Take 1 Un renate -naloxone 1-05 tablet by ity o f 50-0.5 mg 00:00: mouth [place] tablet 00 every 6 Medical (six) Branch hours as needed for Pain. cyclobenzap Yes TAKE 1 Univ ers rine 10 mg 8-28 TABLET BY ity of tablet 00:00: MOUTH [place] 00 EVERY 8 Medical HOURS Branch NEEDED FOR MUSCLE SPASMS. phenylephri Yes 5mL Take 5 mL U nivers ne-prometha 6-15 by mouth 4 it y of zine-codein 00:[place] (PROMETHAZI daily as Bran ch NE needed for VC-CODEINE) Cough. 6.25-5-10 mg/5 mL syrup benzonatate Yes 100mg Take 1 Cap Univers (TESSALON 9-12 by mouth 3 ity of PERLES) 100 00:00: (three) [place] as mg capsule 00 times Medical daily as Branch needed for Cough. Juvenal [place] Yes [place]in not Common ne ne [place] defined [facility] IUD's IUD's Yes [place]in Paragard [facility] [place] IUD [facility] Flonase Flonase Yes [place] not Common [place] defined [facility] ZyrTE ZyrTE Yes [place] not Common [place] defined [facility] Vitamin B12 Vitamin B12 Yes [place] (OTC) 1 Common [place] tablet [facility] Azithromyci Azithromyci No Azithromyc n 500 MG n 500 MG in 500 MG Flonase Flonase No Flonase Vitamin B12 Vitamin B12 No Vitamin mg mg B12 mg ZyrTEC ZyrTEC No ZyrTEC Vitamin D Vitamin D No 1{capsu QD Vitamin D 50 MCG 50 MCG le} 50 MCG (1999) (1999) (1999) Norethindro Norethindro No Norethindr ne ne one IUD's IUD's No IUD's Azithromyci Azithromyci No Azithromyc n 500 MG n 500 MG in 500 MG Flonase Flonase No Flonase Vitamin B12 Vitamin B12 No Vitamin mg mg B12 mg ZyrTEC ZyrTEC No ZyrTEC Vitamin D Vitamin D No 1{capsu QD Vitamin D 50 MCG 50 MCG le} 50 MCG (1999) (1999) (1999) Norethindro Norethindro No Norethindr ne ne one IUD's IUD's No IUD's Azithromyci Azithromyci No Azithromyc n 500 MG n 500 MG in 500 MG ZyrTEC ZyrTEC No ZyrTEC Famotidine Famotidine No Famotidine 20 MG 20 MG 20 MG Azithromyci Azithromyci No Azithromyc n 500 MG n 500 MG in 500 MG Flonase Flonase No Flonase Vitamin D Vitamin D No 1{capsu QD Vitamin D 50 MCG 50 MCG le} 50 MCG (1999) (1999) (1999) Montelukast Montelukast No Montelukas Sodium 10 Sodium 10 t Sodium MG MG 10 MG IUD's IUD's No IUD's MethylPREDN MethylPREDN No MethylPRED ISolone 4 ISolone 4 NISolone 4 MG MG MG Cetirizine Cetirizine No Cetirizine HCl 10 MG HCl 10 MG HCl 10 MG Benadryl Benadryl No Benadryl Allergy 25 Allergy 25 Allergy 25 MG MG MG Norethindro Norethindro No Norethindr ne ne one Vitamin B12 Vitamin B12 No Vitamin mg mg B12 mg ZyrTEC ZyrTEC No ZyrTEC Famotidine Famotidine No Famotidine 20 MG 20 MG 20 MG Azithromyci Azithromyci No Azithromyc n 500 MG n 500 MG in 500 MG Flonase Flonase No Flonase Vitamin D Vitamin D No 1{capsu QD Vitamin D 50 MCG 50 MCG le} 50 MCG (1999) (1999) (1999) Montelukast Montelukast No Montelukas Sodium 10 Sodium 10 t Sodium MG MG 10 MG IUD's IUD's No IUD's MethylPREDN MethylPREDN No MethylPRED ISolone 4 ISolone 4 NISolone 4 MG MG MG Cetirizine Cetirizine No Cetirizine HCl 10 MG HCl 10 MG HCl 10 MG Benadryl Benadryl No Benadryl Allergy 25 Allergy 25 Allergy 25 MG MG MG Norethindro Norethindro No Norethindr ne ne one Vitamin B12 Vitamin B12 No Vitamin mg mg B12 mg Norethindro Norethindro No Norethindr ne ne one methylPREDN methylPREDN No methylPRED ISolone 4 ISolone 4 NISolone 4 MG MG MG ZyrTEC ZyrTEC No ZyrTEC Cetirizine Cetirizine No Cetirizine HCl 10 MG HCl 10 MG HCl 10 MG Montelukast Montelukast No Montelukas Sodium 10 Sodium 10 t Sodium MG MG 10 MG IUD's IUD's No IUD's Benadryl Benadryl No Benadryl Allergy 25 Allergy 25 Allergy 25 MG MG MG Vitamin B12 Vitamin B12 No Vitamin mg mg B12 mg Flonase Flonase No Flonase Azithromyci Azithromyci No Azithromyc n 500 MG n 500 MG in 500 MG Vitamin D Vitamin D No 1{capsu QD Vitamin D 50 MCG 50 MCG le} 50 MCG (1999) (1999) (1999) Famotidine Famotidine No Famotidine 20 MG 20 MG 20 MG Vitamin D Vitamin D No 1{capsu QD Vitamin D 50 MCG 50 MCG le} 50 MCG (1999) (1999) (1999) Flonase Flonase No Flonase IUD's IUD's No IUD's Cetirizine Cetirizine No Cetirizine HCl 10 MG HCl 10 MG HCl 10 MG Azithromyci Azithromyci No Azithromyc n 500 MG n 500 MG in 500 MG Montelukast Montelukast No Montelukas Sodium 10 Sodium 10 t Sodium MG MG 10 MG Benadryl Benadryl No Benadryl Allergy 25 Allergy 25 Allergy 25 MG MG MG Vitamin B12 Vitamin B12 No Vitamin mg mg B12 mg Norethindro Norethindro No Norethindr ne ne one methylPREDN methylPREDN No methylPRED ISolone 4 ISolone 4 NISolone 4 MG MG MG ZyrTEC ZyrTEC No ZyrTEC Famotidine Famotidine No Famotidine 20 MG 20 MG 20 MG Norethindro Norethindro No Norethindr ne ne one Vitamin B12 Vitamin B12 No Vitamin mg mg B12 mg Famotidine Famotidine No Famotidine 20 MG 20 MG 20 MG ZyrTEC ZyrTEC No ZyrTEC methylPREDN methylPREDN No methylPRED ISolone 4 ISolone 4 NISolone 4 MG MG MG Benadryl Benadryl No Benadryl Allergy 25 Allergy 25 Allergy 25 MG MG MG Azithromyci Azithromyci No Azithromyc n 500 MG n 500 MG in 500 MG Vitamin D Vitamin D No 1{capsu QD Vitamin D 50 MCG 50 MCG le} 50 MCG (1999) (1999) (1999) Montelukast Montelukast No Montelukas Sodium 10 Sodium 10 t Sodium MG MG 10 MG Cetirizine Cetirizine No Cetirizine HCl 10 MG HCl 10 MG HCl 10 MG IUD's IUD's No IUD's Flonase Flonase No Flonase Famotidine Famotidine No Famotidine 20 MG 20 MG 20 MG IUD's IUD's No IUD's Montelukast Montelukast No Montelukas Sodium 10 Sodium 10 t Sodium MG MG 10 MG Cetirizine Cetirizine No Cetirizine HCl 10 MG HCl 10 MG HCl 10 MG Azithromyci Azithromyci No Azithromyc n 500 MG n 500 MG in 500 MG Benadryl Benadryl No Benadryl Allergy 25 Allergy 25 Allergy 25 MG MG MG Flonase Flonase No Flonase Vitamin B12 Vitamin B12 No Vitamin mg mg B12 mg methylPREDN methylPREDN No methylPRED ISolone 4 ISolone 4 NISolone 4 MG MG MG ZyrTEC ZyrTEC No ZyrTEC Ferrous Ferrous No Ferrous Sulfate 325 Sulfate 325 Sulfate (65 Fe) MG (65 Fe) MG 325 (65 Fe) MG Norethindro Norethindro No Norethindr ne ne one Famotidine Famotidine No Famotidine 20 MG 20 MG 20 MG IUD's IUD's No IUD's Montelukast Montelukast No Montelukas Sodium 10 Sodium 10 t Sodium MG MG 10 MG Cetirizine Cetirizine No Cetirizine HCl 10 MG HCl 10 MG HCl 10 MG Azithromyci Azithromyci No Azithromyc n 500 MG n 500 MG in 500 MG Benadryl Benadryl No Benadryl Allergy 25 Allergy 25 Allergy 25 MG MG MG Flonase Flonase No Flonase Vitamin B12 Vitamin B12 No Vitamin mg mg B12 mg methylPREDN methylPREDN No methylPRED ISolone 4 ISolone 4 NISolone 4 MG MG MG ZyrTEC ZyrTEC No ZyrTEC Ferrous Ferrous No Ferrous Sulfate 325 Sulfate 325 Sulfate (65 Fe) MG (65 Fe) MG 325 (65 Fe) MG Norethindro Norethindro No Norethindr ne ne one Norethindro Norethindro No Norethindr Common ne ne one [facility] IUD's IUD's No IUD's [facility] Vitamin B12 Vitamin B12 No Vitamin Common mg mg B12 mg [facility] ZyrTEC ZyrTEC No ZyrTEC Common [facility] Flonase Flonase No Flonase Common [facility] Vitamin D Vitamin D No 1{capsu QD Vitamin D Common 50 MCG 50 MCG le} 50 MCG Spirit (1999) (1999) (1999) - [facility] Norethindro Norethindro No Norethindr ne ne one IUD's IUD's No IUD's Vitamin B12 Vitamin B12 No Vitamin mg mg B12 mg ZyrTEC ZyrTEC No ZyrTEC Flonase Flonase No Flonase Vitamin D Vitamin D No 1{capsu QD Vitamin D 50 MCG 50 MCG le} 50 MCG (1999) (1999 [place]) (1999 [facility]) Flonase Flonase No Flonase Vitamin B12 Vitamin B12 No Vitamin mg mg B12 mg ZyrTEC ZyrTEC No ZyrTEC Vitamin D Vitamin D No 1{capsu QD Vitamin D 50 MCG 50 MCG le} 50 MCG (1999) (1999 [facility]) (1999 [facility]) Norethindro Norethindro No Norethindr ne ne one IUD's IUD's No IUD's Immunizations Ordered Filled Immunization Date Status Comments Sourc e Immunization Name Name Influenza, 2022-06-21 Completed injectable, [place] 00:00:00 [place] Canine Kidney, preservative-free, quadrivalent Influenza, 2022-06-21 Completed injectable, [place] 00:00:00 [place] Canine Kidney, preservative-free, quadrivalent Influenza, 2022-06-21 Completed injectable, [place] 00:00:00 [place] Canine Kidney, preservative-free, quadrivalent Influenza, 2022-06-21 Completed injectable, [place] 00:00:00 [place] Canine Kidney, preservative-free, quadrivalent Influenza, 2022-06-21 Completed injectable, [place] 00:00:00 [place] Canine Kidney, preservative-free, quadrivalent Influenza, 2022-06-21 Completed injectable, [place] 00:00:00 [place] Canine Kidney, preservative-free, quadrivalent SARS-COV-2 COVID-19 2021-01-09 Completed Unive rsity of PFIZER VACCINE 00:00:00 [facility] SARS-COV-2 COVID-19 2020-12-19 Completed Unive rsity of PFIZER VACCINE 00:00:00 [facility] Kenalog Kenalog 2020-11-03 Completed [facility] - (Triamcinolone) (Triamcinolone) 10:27:00 [facility] Kenalog Kenalog 2020-11-03 Completed [facility] - (Triamcinolone) (Triamcinolone) 10:27:00 [facility] Luis Smith 2020-11-03 Completed [facility] - (Triamcinolone) (Triamcinolone) 10:27:00 [facility] Luis Smith 2020-11-03 Completed [facility] (Triamcinolone) (Triamcinolone) 10:27:00 [facility] Luis Smith 2020-11-03 Completed [facility] - (Triamcinolone) (Triamcinolone) 10:27:00 [facility] Fluzone Fluzone 2018-07-07 Completed [facility] - 08:47:00 [facility] Fluzone Fluzone 2018-07-07 Completed [facility] - 08:47:00 [facility] Fluzone Fluzone 2018-07-07 Completed [facility] - 08:47:00 [facility] Fluzone Fluzone 2018-07-07 Completed [facility] - 08:47:00 [facility] Fluzone Fluzone 2018-07-07 Completed [facility] - 08:47:00 [facility] Fluzone Fluzone 2018-07-07 Completed [facility] - 08:47:00 [facility] Fluzone Fluzone 2018-07-07 Completed [facility] - 08:47:00 [facility] Fluzone Fluzone 2018-07-07 Completed [facility] - 08:47:00 [facility] Fluzone Fluzone 2018-07-07 Completed [facility] - 08:47:00 [facility] Fluzone Fluzone 2018-07-07 Completed [facility] - 08:47:00 [facility] Fluzone Fluzone 2018-07-07 Completed [facility] - 08:47:00 [facility] Fluzone Fluzone 2018-07-07 Completed [facility] - 08:47:00 [facility] Solumedrol Solumedrol 2018-06-13 Completed [facility] - 125mg/2ml 125mg/2ml 09:55:00 [facility] Solumedrol Solumedrol 2018-06-13 Completed [facility] - 125mg/2ml 125mg/2ml 09:55:00 [facility] Solumedrol Solumedrol 2018-06-13 Completed [facility] - 125mg/2ml 125mg/2ml 09:55:00 [facility] Solumedrol Solumedrol 2018-06-13 Completed [facility] - 125mg/2ml 125mg/2ml 09:55:00 [facility] Solumedrol Solumedrol 2018-06-13 Completed [facility] - 125mg/2ml 125mg/2ml 09:55:00 [facility] Solumedrol Solumedrol 2018-06-13 Completed [facility] - 125mg/2ml 125mg/2ml 09:55:00 [facility] Solumedrol Solumedrol 2018-06-13 Completed [facility] - 125mg/2ml 125mg/2ml 09:55:00 [facility] Solumedrol Solumedrol 2018-06-13 Completed [facility] - 125mg/2ml 125mg/2ml 09:55:00 [facility] Solumedrol Solumedrol 2018-06-13 Completed [facility] - 125mg/2ml 125mg/2ml 09:55:00 [facility] Solumedrol Solumedrol 2018-06-13 Completed [facility] - 125mg/2ml 125mg/2ml 09:55:00 [facility] Solumedrol Solumedrol 2018-03-23 Completed [facility] - 125mg/2ml 125mg/2ml 14:40:00 [facility] Solumedrol Solumedrol 2018-03-23 Completed [facility] - 125mg/2ml 125mg/2ml 14:40:00 [facility] Solumedrol Solumedrol 2018-03-23 Completed [facility] - 125mg/2ml 125mg/2ml 14:40:00 [facility] Solumedrol Solumedrol 2018-03-23 Completed [facility] - 125mg/2ml 125mg/2ml 14:40:00 [facility] Solumedrol Solumedrol 2018-03-23 Completed [facility] - 125mg/2ml 125mg/2ml 14:40:00 [facility] Solumedrol Solumedrol 2018-03-23 Completed [facility] - 125mg/2ml 125mg/2ml 14:40:00 [facility] Solumedrol Solumedrol 2018-03-23 Completed [facility] - 125mg/2ml 125mg/2ml 14:40:00 [facility] Solumedrol Solumedrol 2018-03-23 Completed [facility] - 125mg/2ml 125mg/2ml 14:40:00 [facility] Solumedrol Solumedrol 2018-03-23 Completed [facility] - 125mg/2ml 125mg/2ml 14:40:00 [facility] Solumedrol Solumedrol 2018-03-23 Completed [facility] - 125mg/2ml 125mg/2ml 14:40:00 [facility] Kenalog Kenalog 2017-12-05 Completed [facility] - (Triamcinolone) (Triamcinolone) 13:09:00 [facility] Kenalog Kenalog 2017-12-05 Completed [facility] - (Triamcinolone) (Triamcinolone) 13:09:00 [facility] Kenalog Kenalog 2017-12-05 Completed [facility] - (Triamcinolone) (Triamcinolone) 13:09:00 [facility] Kenalog Kenalog 2017-12-05 Completed [facility] (Triamcinolone) (Triamcinolone) 13:09:00 [facility] Kenalog Kenalog 2017-12-05 Completed [facility] - (Triamcinolone) (Triamcinolone) 13:09:00 [facility] Kenalog Kenalog 2017-12-05 Completed [facility] - (Triamcinolone) (Triamcinolone) 13:09:00 [facility] Kenalog Kenalog 2017-12-05 Completed [facility] - (Triamcinolone) (Triamcinolone) 13:09:00 [facility] Kenalog Kenalog 2017-12-05 Completed [facility] - (Triamcinolone) (Triamcinolone) 13:09:00 [facility] Kenalog Kenalog 2017-12-05 Completed [facility] - (Triamcinolone) (Triamcinolone) 13:09:00 [facility] Kenalog Kenalog 2017-12-05 Completed [facility] - (Triamcinolone) (Triamcinolone) 13:09:00 [facility] TDAP 2014-10-02 Completed [facility] 00:00:00 [facility] Vital Signs Vital Name Observation Time Observation Value Comments Source height 2022-09-15 08:30:00 61 [in_i] [facility] weight 2022-09-15 08:30:00 188.2 [lb_av] [facility] temperature 2022-09-15 08:30:00 98.6 [degF] [facility] bmi 2022-09-15 08:30:00 35.56 kg/m2 [facility] blood pressure 2022-09-15 08:30:00 132 mm[Hg] [facility] - systolic [facility] blood pressure 2022-09-15 08:30:00 80 mm[Hg] [facility] - diastolic [facility] height 2022-09-05 16:20:00 61 [in_i] [facility] weight 2022-09-05 16:20:00 190.2 [lb_av] [facility] temperature 2022-09-05 16:20:00 97.5 [degF] [facility] bmi 2022-09-05 16:20:00 35.93 kg/m2 [facility] oximetry 2022-09-05 16:20:00 100 % [facility] respiratory rate 2022-09-05 16:20:00 16 /min Comm on [facility] blood pressure 2022-09-05 16:20:00 130 mm[Hg] Common [facility] - systolic [facility] blood pressure 2022-09-05 16:20:00 68 mm[Hg] Common [facility] - diastolic [facility] height 2021-06-30 09:00:00 61 [in_i] [facility] weight 2021-06-30 09:00:00 180 [lb_av] Common [facility] bmi 2021-06-30 09:00:00 34.01 kg/m2 [facility] height 2021-05-31 10:20:00 61 [in_i] [facility] weight 2021-05-31 10:20:00 183.0 [lb_av] [facility] temperature 2021-05-31 10:20:00 97.7 [degF] Common [facility] bmi 2021-05-31 10:20:00 34.57 kg/m2 [facility] oximetry 2021-05-31 10:20:00 98 % [facility] respiratory rate 2021-05-31 10:20:00 16 /min Comm on [facility] blood pressure 2021-05-31 10:20:00 130 mm[Hg] Common [facility] systolic [facility] blood pressure 2021-05-31 10:20:00 78 mm[Hg] Common [facility] diastolic [facility] height 2020-11-03 10:00:00 61 [in_i] [facility] weight 2020-11-03 10:00:00 194.5 [lb_av] [facility] temperature 2020-11-03 10:00:00 98.8 [degF] [facility] bmi 2020-11-03 10:00:00 36.75 kg/m2 [facility] oximetry 2020-11-03 10:00:00 98 % [facility] respiratory rate 2020-11-03 10:00:00 18 /min Comm on [facility] blood pressure 2020-11-03 10:00:00 130 mm[Hg] Common [facility] - systolic [facility] blood pressure 2020-11-03 10:00:00 80 mm[Hg] Common [facility] - diastolic [facility] height 2020-09-18 10:20:00 61 [in_i] [facility] weight 2020-09-18 10:20:00 198.6 [lb_av] [facility] temperature 2020-09-18 10:20:00 98.0 [degF] [facility] bmi 2020-09-18 10:20:00 37.52 kg/m2 [facility] oximetry 2020-09-18 10:20:00 95 % [facility] respiratory rate 2020-09-18 10:20:00 18 /min Comm on [facility] blood pressure 2020-09-18 10:20:00 120 mm[Hg] [facility] - systolic [facility] blood pressure 2020-09-18 10:20:00 72 mm[Hg] [facility] - diastolic [facility] BP Systolic 2022-09-28 09:00:00 124 mm[Hg] BP Diastolic 2022-09-28 09:00:00 85 mm[Hg] Weight Measured 2022-09-28 09:00:00 190.80 pounds Height Measured 2022-09-28 09:00:00 65.00 inches Body Temperature 2022-09-28 09:00:00 98.30 degrees Heart Rate 2022-09-28 09:00:00 60.00 /min Respiratory Rate 2022-09-28 09:00:00 18.00 /min BP Systolic 2022-09-15 13:53:00 107 mm[Hg] BP Diastolic 2022-09-15 13:53:00 72 mm[Hg] Weight Measured 2022-09-15 13:53:00 191.20 pounds Height Measured 2022-09-15 13:53:00 65.00 inches Body Temperature 2022-09-15 13:53:00 98.80 degrees Heart Rate 2022-09-15 13:53:00 78.00 /min Respiratory Rate 2022-09-15 13:53:00 17.00 /min BP Systolic 2022-07-13 17:17:00 134 mm[Hg] BP Diastolic 2022-07-13 17:17:00 84 mm[Hg] Weight Measured 2022-07-13 17:17:00 193.80 pounds Height Measured 2022-07-13 17:17:00 65.00 inches Body Temperature 2022-07-13 17:17:00 98.20 degrees Heart Rate 2022-07-13 17:17:00 83.00 /min Respiratory Rate 2022-07-13 17:17:00 BP Systolic 2022-06-21 10:21:00 132 mm[Hg] BP Diastolic 2022-06-21 10:21:00 77 mm[Hg] Weight Measured 2022-06-21 10:21:00 200.00 pounds Height Measured 2022-06-21 10:21:00 65.00 inches Body Temperature 2022-06-21 10:21:00 97.70 degrees Heart Rate 2022-06-21 10:21:00 85.00 /min Respiratory Rate 2022-06-21 10:21:00 BP Systolic 2022-06-13 10:27:00 131 mm[Hg] BP Diastolic 2022-06-13 10:27:00 77 mm[Hg] Weight Measured 2022-06-13 10:27:00 202.00 pounds Height Measured 2022-06-13 10:27:00 65.00 inches Body Temperature 2022-06-13 10:27:00 98.20 degrees Heart Rate 2022-06-13 10:27:00 65.00 /min Respiratory Rate 2022-06-13 10:27:00 18.00 /min BP Systolic 2022-06-10 11:53:00 149 mm[Hg] BP Diastolic 2022-06-10 11:53:00 80 mm[Hg] Weight Measured 2022-06-10 11:53:00 202.00 pounds Height Measured 2022-06-10 11:53:00 65.00 inches Body Temperature 2022-06-10 11:53:00 98.40 degrees Heart Rate 2022-06-10 11:53:00 62.00 /min Respiratory Rate 2022-06-10 11:53:00 16.00 /min BP Systolic 2022-06-07 10:10:00 145 mm[Hg] BP Diastolic 2022-06-07 10:10:00 77 mm[Hg] Weight Measured 2022-06-07 10:10:00 203.00 pounds Height Measured 2022-06-07 10:10:00 65.00 inches Body Temperature 2022-06-07 10:10:00 98.30 degrees Heart Rate 2022-06-07 10:10:00 61.00 /min Respiratory Rate 2022-06-07 10:10:00 18.00 /min BP Systolic 2022-06-02 09:20:00 123 mm[Hg] BP Diastolic 2022-06-02 09:20:00 79 mm[Hg] Weight Measured 2022-06-02 09:20:00 202.40 pounds Height Measured 2022-06-02 09:20:00 65.00 inches Body Temperature 2022-06-02 09:20:00 98.20 degrees Heart Rate 2022-06-02 09:20:00 65.00 /min Respiratory Rate 2022-06-02 09:20:00 18.00 /min BP Systolic 2021-11-16 08:06:00 BP Diastolic 2021-11-16 08:06:00 Weight Measured 2021-11-16 08:06:00 195.00 pounds Height Measured 2021-11-16 08:06:00 65.00 inches Body Temperature 2021-11-16 08:06:00 Heart Rate 2021-11-16 08:06:00 Respiratory Rate 2021-11-16 08:06:00 BP Systolic 2021-10-12 11:36:00 135 mm[Hg] BP Diastolic 2021-10-12 11:36:00 72 mm[Hg] Weight Measured 2021-10-12 11:36:00 196.40 pounds Height Measured 2021-10-12 11:36:00 65.00 inches Body Temperature 2021-10-12 11:36:00 98.90 degrees Heart Rate 2021-10-12 11:36:00 65.00 /min Respiratory Rate 2021-10-12 11:36:00 16.00 /min Respiratory Rate 2021-09-08 10:21:00 BP Systolic 2021-09-08 10:21:00 114 mm[Hg] BP Diastolic 2021-09-08 10:21:00 69 mm[Hg] Weight Measured 2021-09-08 10:21:00 187.00 pounds Height Measured 2021-09-08 10:21:00 65.00 inches Body Temperature 2021-09-08 10:21:00 98.10 degrees Heart Rate 2021-09-08 10:21:00 58.00 /min BP Systolic 2021-03-02 14:41:00 139 mm[Hg] BP Diastolic 2021-03-02 14:41:00 86 mm[Hg] Weight Measured 2021-03-02 14:41:00 182.20 pounds Height Measured 2021-03-02 14:41:00 65.00 inches Body Temperature 2021-03-02 14:41:00 98.00 degrees Heart Rate 2021-03-02 14:41:00 Respiratory Rate 2021-03-02 14:41:00 BP Systolic 2019-12-04 16:18:00 131 mm[Hg] BP Diastolic 2019-12-04 16:18:00 72 mm[Hg] Weight Measured 2019-12-04 16:18:00 206.60 pounds Height Measured 2019-12-04 16:18:00 65.00 inches Body Temperature 2019-12-04 16:18:00 98.40 degrees Heart Rate 2019-12-04 16:18:00 67.00 /min Respiratory Rate 2019-12-04 16:18:00 16.00 /min BP Systolic 2019-06-25 09:14:00 145 mm[Hg] BP Diastolic 2019-06-25 09:14:00 81 mm[Hg] Weight Measured 2019-06-25 09:14:00 194.40 pounds Height Measured 2019-06-25 09:14:00 65.00 inches Body Temperature 2019-06-25 09:14:00 98.40 degrees Heart Rate 2019-06-25 09:14:00 59.00 /min Respiratory Rate 2019-06-25 09:14:00 BP Systolic 2019-05-15 17:26:00 123 mm[Hg] BP Diastolic 2019-05-15 17:26:00 72 mm[Hg] Weight Measured 2019-05-15 17:26:00 197.20 pounds Height Measured 2019-05-15 17:26:00 65.00 inches Body Temperature 2019-05-15 17:26:00 98.06 degrees Heart Rate 2019-05-15 17:26:00 60.00 /min Respiratory Rate 2019-05-15 17:26:00 17.00 /min BP Systolic 2019-05-01 17:08:00 139 mm[Hg] BP Diastolic 2019-05-01 17:08:00 80 mm[Hg] Weight Measured 2019-05-01 17:08:00 194.20 pounds Height Measured 2019-05-01 17:08:00 65.00 inches Body Temperature 2019-05-01 17:08:00 98.20 degrees Heart Rate 2019-05-01 17:08:00 58.00 /min Respiratory Rate 2019-05-01 17:08:00 17.00 /min BP Systolic 2019-04-15 09:47:00 123 mm[Hg] BP Diastolic 2019-04-15 09:47:00 72 mm[Hg] Weight Measured 2019-04-15 09:47:00 198.00 pounds Height Measured 2019-04-15 09:47:00 65.00 inches Body Temperature 2019-04-15 09:47:00 98.20 degrees Heart Rate 2019-04-15 09:47:00 50.00 /min Respiratory Rate 2019-04-15 09:47:00 17.00 /min BP Systolic 2018-12-31 11:56:00 136 mm[Hg] BP Diastolic 2018-12-31 11:56:00 85 mm[Hg] Weight Measured 2018-12-31 11:56:00 Height Measured 2018-12-31 11:56:00 65.00 inches Body Temperature 2018-12-31 11:56:00 98.20 degrees Heart Rate 2018-12-31 11:56:00 57.00 /min Respiratory Rate 2018-12-31 11:56:00 17.00 /min Procedures This patient has no known procedures. Plan of Care Planned Activity Planned Date Details Comments Source Goal Plan of Care Note [code = 43156-6] Goal Plan of Care Note [code = 26629-3] Goal Plan of Care Note [code = 28631-7] Goal Plan of Care Note [code = 36095-6] Goal Plan of Care Note [code = 38776-7] Goal Plan of Care Note [code = 89206-8] Goal Plan of Care Note [code = 36993-8] Goal Plan of Care Note [code = 65517-8] Goal Plan of Care Note [code = 10140-7] Goal Plan of Care Note [code = 68521-9] Goal Plan of Care Note [code = 94607-5] Goal Plan of Care Note [code = 81170-4] Goal Plan of Care Note [code = 35995-6] Goal Plan of Care Note [code = 75718-6] Goal Plan of Care Note [code = 15936-7] Goal Plan of Care Note [code = 38825-4] Goal Plan of Care Note [code = 46817-7] Goal Plan of Care Note [code = 18685-5] Goal Plan of Care Note [code = 70308-5] Goal Plan of Care Note [code = 57180-8] Goal Plan of Care Note [code = 44040-9] Goal Plan of Care Note [code = 32035-0] Goal Plan of Care Note [code = 01502-6] Goal Plan of Care Note [code = 56973-4] Goal Plan of Care Note [code = 79572-6] Goal Plan of Care Note [code = 54393-5] Goal Plan of Care Note [code = 15534-3] Goal Plan of Care Note [code = 05186-7] Goal Plan of Care Note [code = 50259-7] Goal Plan of Care Note [code = 02551-9] Goal Plan of Care Note [code = 34238-9] Goal Plan of Care Note [code = 36254-9] Goal Plan of Care Note [code = 05549-9] Goal Plan of Care Note [code = 05764-0] Goal Plan of Care Note [code = 31679-1] Goal Plan of Care Note [code = 08168-6] Goal Plan of Care Note [code = 41831-9] Goal Plan of Care Note [code = 62440-9] Goal Plan of Care Note [code = 03047-9] Goal Plan of Care Note [code = 60945-6] Goal Plan of Care Note [code = 29491-2] Goal Plan of Care Note [code = 66632-4] Goal Plan of Care Note [code = 69872-9] Goal Plan of Care Note [code = 13124-9] Goal Plan of Care Note [code = 22272-0] Goal Plan of Care Note [code = 22393-1] Goal Plan of Care Note [code = 25238-4] Goal Plan of Care Note [code = 91432-3] Goal Plan of Care Note [code = 73940-8] Goal Plan of Care Note [code = 32715-1] Goal Plan of Care Note [code = 85186-0] Goal Plan of Care Note [code = 83680-3] Goal Plan of Care Note [code = 94727-4] Goal Plan of Care Note [code = 34913-7] Goal Plan of Care Note [code = 27693-9] Goal Plan of Care Note [code = 98101-5] Goal Plan of Care Note [code = 80860-7] Goal Plan of Care Note [code = 99028-8] Goal Plan of Care Note [code = 38311-7] Goal Plan of Care Note [code = 09391-5] Goal Plan of Care Note [code = 03812-1] Goal Plan of Care Note [code = 50229-5] Goal Plan of Care Note [code = 43690-0] Goal Plan of Care Note [code = 06960-9] Goal Plan of Care Note [code = 43340-7] Goal Plan of Care Note [code = 14414-3] Goal Plan of Care Note [code = 51899-7] Goal Plan of Care Note [code = 12586-1] Goal Plan of Care Note [code = 48866-2] Goal Plan of Care Note [code = 11564-4] Goal Plan of Care Note [code = 40546-3] Goal Plan of Care Note [code = 10238-8] Goal Plan of Care Note [code = 16176-9] Goal Plan of Care Note [code = 04651-5] Goal Plan of Care Note [code = 68770-4] Goal Plan of Care Note [code = 05768-1] Goal Plan of Care Note [code = 09535-2] Goal Plan of Care Note [code = 91229-9] Goal Plan of Care Note [code = 66268-8] Goal Plan of Care Note [code = 29749-3] Goal Plan of Care Note [code = 02297-8] Goal Plan of Care Note [code = 10241-0] Goal Plan of Care Note [code = 77045-6] Goal Plan of Care Note [code = 57319-8] Goal Plan of Care Note [code = 46021-1] Goal Plan of Care Note [code = 80020-9] Goal Plan of Care Note [code = 17983-0] Goal Plan of Care Note [code = 54277-0] Goal Plan of Care Note [code = 14184-8] Goal Plan of Care Note [code = 11695-3] Goal Plan of Care Note [code = 49438-4] Goal Plan of Care Note [code = 50920-1] Goal Plan of Care Note [code = 94831-2] Goal Plan of Care Note [code = 36650-3] Goal Plan of Care Note [code = 81639-4] Goal Plan of Care Note [code = 80483-6] Goal Plan of Care Note [code = 47167-9] Goal Plan of Care Note [code = 79343-2] Goal Plan of Care Note [code = 64852-8] Goal Plan of Care Note [code = 95874-2] Goal Plan of Care Note [code = 24947-1] Goal Plan of Care Note [code = 36359-0] Goal Plan of Care Note [code = 15143-4] Goal Plan of Care Note [code = 04562-8] Goal Plan of Care Note [code = 31730-0] Goal Plan of Care Note [code = 82548-5] Goal Plan of Care Note [code = 15687-9] Goal Plan of Care Note [code = 78413-3] Goal Plan of Care Note [code = 16938-9] Goal Plan of Care Note [code = 85728-6] Goal Plan of Care Note [code = 56327-0] Goal Plan of Care Note [code = 03139-1] Goal Plan of Care Note [code = 09286-1] Goal Plan of Care Note [code = 00308-2] Goal Plan of Care Note [code = 25832-0] Goal Plan of Care Note [code = 48834-8] Goal Plan of Care Note [code = 74007-6] Goal Plan of Care Note [code = 96861-6] Goal Plan of Care Note [code = 18777-1] Goal Plan of Care Note [code = 62293-8] Goal Plan of Care Note [code = 62946-4] Goal Plan of Care Note [code = 68300-3] Goal Plan of Care Note [code = 37780-6] Goal Plan of Care Note [code = 51579-7] Goal Plan of Care Note [code = 97296-7] Goal Plan of Care Note [code = 59664-8] Goal Plan of Care Note [code = 09497-8] Goal Plan of Care Note [code = 92480-3] Goal Plan of Care Note [code = 80590-9] Goal Plan of Care Note [code = 01981-4] Goal Plan of Care Note [code = 23278-9] Goal Plan of Care Note [code = 48809-3] Goal Plan of Care Note [code = 85932-5] Goal Plan of Care Note [code = 34054-1] Goal Plan of Care Note [code = 16364-3] Goal Plan of Care Note [code = 70060-0] Goal Plan of Care Note [code = 03969-8] Goal Plan of Care Note [code = 30213-4] Goal Plan of Care Note [code = 71685-5] Goal Plan of Care Note [code = 31352-1] Goal Plan of Care Note [code = 44379-3] Goal Plan of Care Note [code = 23569-9] Goal Plan of Care Note [code = 51462-0] Goal Plan of Care Note [code = 98772-4] Goal Plan of Care Note [code = 16092-3] Goal Plan of Care Note [code = 18070-3] Goal Plan of Care Note [code = 14272-1] Goal Plan of Care Note [code = 09418-8] Goal Plan of Care Note [code = 03097-7] Goal Plan of Care Note [code = 01789-6] Goal Plan of Care Note [code = 42067-5] Goal Plan of Care Note [code = 73877-3] Goal Plan of Care Note [code = 62678-2] Goal Plan of Care Note [code = 57014-1] Goal Plan of Care Note [code = 58839-7] Goal Plan of Care Note [code = 17304-9] Goal Plan of Care Note [code = 59101-0] Goal Plan of Care Note [code = 11484-7] Goal Plan of Care Note [code = 30392-0] Goal Plan of Care Note [code = 15058-7] Goal Plan of Care Note [code = 67605-8] Goal Plan of Care Note [code = 70682-9] Goal Plan of Care Note [code = 85961-2] Goal Plan of Care Note [code = 87528-8] Goal Plan of Care Note [code = 53494-8] Goal Plan of Care Note [code = 29125-7] Goal Plan of Care Note [code = 28433-3] Goal Plan of Care Note [code = 87829-3] Goal Plan of Care Note [code = 08453-7] Goal Plan of Care Note [code = 72812-3] Goal Plan of Care Note [code = 20374-6] Goal Plan of Care Note [code = 74612-0] Goal Plan of Care Note [code = 76793-1] Goal Plan of Care Note [code = 02282-7] Goal Plan of Care Note [code = 72757-1] Goal Plan of Care Note [code = 53494-0] Goal Plan of Care Note [code = 14843-0] Goal Plan of Care Note [code = 27551-7] Goal Plan of Care Note [code = 99117-7] Goal Plan of Care Note [code = 43811-4] Goal Plan of Care Note [code = 65575-0] Goal Plan of Care Note [code = 09962-4] Goal Plan of Care Note [code = 40076-2] Goal Plan of Care Note [code = 03096-4] Goal Plan of Care Note [code = 35593-3] Goal Plan of Care Note [code = 63871-3] Goal Plan of Care Note [code = 28973-2] Goal Plan of Care Note [code = 50214-1] Goal Plan of Care Note [code = 53883-7] Goal Plan of Care Note [code = 08999-4] Goal Plan of Care Note [code = 01103-6] Goal Plan of Care Note [code = 93461-1] Goal Plan of Care Note [code = 36994-0] Goal Plan of Care Note [code = 64055-6] Goal Plan of Care Note [code = 42273-0] Goal Plan of Care Note [code = 80464-7] Goal Plan of Care Note [code = 76327-7] Goal Plan of Care Note [code = 82522-7] Goal Plan of Care Note [code = 66833-1] Goal Plan of Care Note [code = 95726-2] Goal Plan of Care Note [code = 22038-8] Goal Plan of Care Note [code = 13133-5] Goal Plan of Care Note [code = 66917-3] Goal Plan of Care Note [code = 81030-7] Goal Plan of Care Note [code = 38184-9] Goal Plan of Care Note [code = 41014-3] Goal Plan of Care Note [code = 14475-5] Goal Plan of Care Note [code = 38216-8] Goal Plan of Care Note [code = 29779-0] Goal Plan of Care Note [code = 77153-6] Goal Plan of Care Note [code = 91062-3] Goal Plan of Care Note [code = 75439-3] Goal Plan of Care Note [code = 97389-9] Goal Plan of Care Note [code = 39093-9] Goal Plan of Care Note [code = 59147-2] Goal Plan of Care Note [code = 57214-7] Goal Plan of Care Note [code = 35577-0] Goal Plan of Care Note [code = 83104-4] Goal Plan of Care Note [code = 87357-2] Goal Plan of Care Note [code = 56173-1] Goal Plan of Care Note [code = 44073-0] Goal Plan of Care Note [code = 95838-8] Goal Plan of Care Note [code = 75039-2] Goal Plan of Care Note [code = 52439-0] Goal Plan of Care Note [code = 64907-2] Goal Plan of Care Note [code = 93649-6] Goal Plan of Care Note [code = 41688-9] Goal Plan of Care Note [code = 82737-2] Goal Plan of Care Note [code = 29750-8] Goal Plan of Care Note [code = 87030-8] Goal Plan of Care Note [code = 19513-6] Goal Plan of Care Note [code = 22375-1] Goal Plan of Care Note [code = 95289-0] Goal Plan of Care Note [code = 56376-4] Goal Plan of Care Note [code = 16569-7] Goal Plan of Care Note [code = 32412-7] Goal Plan of Care Note [code = 33512-8] Goal Plan of Care Note [code = 96792-8] Goal Plan of Care Note [code = 54466-8] Goal Plan of Care Note [code = 15504-1] Goal Plan of Care Note [code = 46151-6] Goal Plan of Care Note [code = 19984-0] Goal Plan of Care Note [code = 98416-0] Goal Plan of Care Note [code = 36968-5] Goal Plan of Care Note [code = 68042-3] Goal Plan of Care Note [code = 55191-9] Goal Plan of Care Note [code = 84489-3] Goal Plan of Care Note [code = 27961-0] Goal Plan of Care Note [code = 72027-7] Goal Plan of Care Note [code = 04526-6] Goal Plan of Care Note [code = 79640-3] Goal Plan of Care Note [code = 98639-6] Goal Plan of Care Note [code = 60897-8] Goal Plan of Care Note [code = 36940-3] Goal Plan of Care Note [code = 40503-4] Goal Plan of Care Note [code = 74018-0] Goal Plan of Care Note [code = 49785-5] Goal Plan of Care Note [code = 71382-2] Goal Plan of Care Note [code = 36993-2] Goal Plan of Care Note [code = 36407-8] Goal Plan of Care Note [code = 60607-0] Goal Plan of Care Note [code = 98915-1] Goal Plan of Care Note [code = 26743-5] Goal Plan of Care Note [code = 34689-4] Goal Plan of Care Note [code = 31546-5] Goal Plan of Care Note [code = 10222-7] Goal Plan of Care Note [code = 12572-6] Goal Plan of Care Note [code = 15128-3] Goal Plan of Care Note [code = 17599-2] Goal Plan of Care Note [code = 94087-8] Goal Plan of Care Note [code = 60537-8] Goal Plan of Care Note [code = 88932-4] Goal Plan of Care Note [code = 13042-3] Goal Plan of Care Note [code = 28942-5] Goal Plan of Care Note [code = 29494-4] Goal Plan of Care Note [code = 12169-7] Goal Plan of Care Note [code = 46206-7] Goal Plan of Care Note [code = 16276-7] Goal Plan of Care Note [code = 81252-5] Goal Plan of Care Note [code = 34564-9] Goal Plan of Care Note [code = 51495-1] Goal Plan of Care Note [code = 15861-6] Goal Plan of Care Note [code = 74838-2] Goal Plan of Care Note [code = 06674-4] Goal Plan of Care Note [code = 76065-8] Goal Plan of Care Note [code = 61619-8] Goal Plan of Care Note [code = 39150-5] Goal Plan of Care Note [code = 91852-1] Goal Plan of Care Note [code = 01910-1] Goal Plan of Care Note [code = 25479-8] Goal Plan of Care Note [code = 72137-2] Goal Plan of Care Note [code = 41295-3] Goal Plan of Care Note [code = 94878-8] Goal Plan of Care Note [code = 85235-6] Goal Plan of Care Note [code = 54692-6] Goal Plan of Care Note [code = 51005-1] Goal Plan of Care Note [code = 49070-7] Goal Plan of Care Note [code = 86205-4] Goal Plan of Care Note [code = 01380-3] Goal Plan of Care Note [code = 43432-0] Goal Plan of Care Note [code = 22136-0] Goal Plan of Care Note [code = 63152-6] Goal Plan of Care Note [code = 10579-6] Goal Plan of Care Note [code = 18612-4] Goal Plan of Care Note [code = 17935-0] Goal Plan of Care Note [code = 80128-4] Goal Plan of Care Note [code = 26416-5] Goal Plan of Care Note [code = 79883-7] Goal Plan of Care Note [code = 48222-5] Goal Plan of Care Note [code = 57670-9] Goal Plan of Care Note [code = 48997-0] Goal Plan of Care Note [code = 38272-9] Goal Plan of Care Note [code = 93316-5] Goal Plan of Care Note [code = 10865-3] Goal Plan of Care Note [code = 05576-8] Goal Plan of Care Note [code = 27157-3] Goal Plan of Care Note [code = 96569-3] Goal Plan of Care Note [code = 50406-5] Goal Plan of Care Note [code = 27580-0] Goal Plan of Care Note [code = 19987-2] Goal Plan of Care Note [code = 67531-0] Goal Plan of Care Note [code = 71209-3] Goal Plan of Care Note [code = 29711-7] Goal Plan of Care Note [code = 40784-2] Goal Plan of Care Note [code = 40596-9] Goal Plan of Care Note [code = 34638-8] Goal Plan of Care Note [code = 31352-6] Goal Plan of Care Note [code = 79874-2] Goal Plan of Care Note [code = 90574-1] Goal Plan of Care Note [code = 56524-2] Goal Plan of Care Note [code = 86787-6] Goal Plan of Care Note [code = 58021-5] Goal Plan of Care Note [code = 69152-0] Goal Plan of Care Note [code = 80126-9] Goal Plan of Care Note [code = 49867-2] Goal Plan of Care Note [code = 92621-2] Goal Plan of Care Note [code = 61208-6] Goal Plan of Care Note [code = 89898-6] Goal Plan of Care Note [code = 75766-8] Goal Plan of Care Note [code = 60352-9] Goal Plan of Care Note [code = 80815-8] Goal Plan of Care Note [code = 10660-6] Goal Plan of Care Note [code = 14156-4] Goal Plan of Care Note [code = 31908-7] Goal Plan of Care Note [code = 60456-3] Goal Plan of Care Note [code = 95159-1] Goal Plan of Care Note [code = 68766-3] Goal Plan of Care Note [code = 77531-1] Goal Plan of Care Note [code = 69738-9] Goal Plan of Care Note [code = 82103-6] Goal Plan of Care Note [code = 02853-3] Goal Plan of Care Note [code = 32872-5] Goal Plan of Care Note [code = 87865-1] Goal Plan of Care Note [code = 62392-9] Goal Plan of Care Note [code = 60677-2] Goal Plan of Care Note [code = 06525-2] Goal Plan of Care Note [code = 40749-7] Goal Plan of Care Note [code = 93675-7] Goal Plan of Care Note [code = 74276-5] Goal Plan of Care Note [code = 04980-2] Goal Plan of Care Note [code = 79203-0] Goal Plan of Care Note [code = 07582-2] Goal Plan of Care Note [code = 60872-1] Goal Plan of Care Note [code = 36021-1] Goal Plan of Care Note [code = 42771-7] Goal Plan of Care Note [code = 90970-9] Goal Plan of Care Note [code = 68967-4] Goal Plan of Care Note [code = 90039-3] Goal Plan of Care Note [code = 71956-1] Goal Plan of Care Note [code = 55420-0] Goal Plan of Care Note [code = 70448-4] Goal Plan of Care Note [code = 51886-5] Goal Plan of Care Note [code = 14694-8] Goal Plan of Care Note [code = 56907-8] Goal Plan of Care Note [code = 97311-7] Goal Plan of Care Note [code = 38466-6] Goal Plan of Care Note [code = 25786-5] Goal Plan of Care Note [code = 34261-9] Goal Plan of Care Note [code = 46998-9] Goal Plan of Care Note [code = 41775-1] Goal Plan of Care Note [code = 00600-7] Goal Plan of Care Note [code = 55665-4] Goal Plan of Care Note [code = 37583-9] Goal Plan of Care Note [code = 62811-1] Goal Plan of Care Note [code = 60930-1] Goal Plan of Care Note [code = 92210-8] Goal Plan of Care Note [code = 40365-7] Goal Plan of Care Note [code = 53321-5] Goal Plan of Care Note [code = 38690-3] Goal Plan of Care Note [code = 37760-2] Goal Plan of Care Note [code = 40044-6] Goal Plan of Care Note [code = 32491-5] Goal Plan of Care Note [code = 03732-1] Goal Plan of Care Note [code = 59296-2] Goal Plan of Care Note [code = 86677-2] Goal Plan of Care Note [code = 95912-8] Goal Plan of Care Note [code = 68798-4] Goal Plan of Care Note [code = 43881-7] Goal Plan of Care Note [code = 23488-4] Goal Plan of Care Note [code = 57965-4] Goal Plan of Care Note [code = 36737-4] Goal Plan of Care Note [code = 10091-7] Goal Plan of Care Note [code = 88298-9] Goal Plan of Care Note [code = 95045-3] Goal Plan of Care Note [code = 16961-9] Goal Plan of Care Note [code = 65120-2] Goal Plan of Care Note [code = 38878-1] Goal Plan of Care Note [code = 09094-1] Goal Plan of Care Note [code = 99800-9] Goal Plan of Care Note [code = 49003-3] Goal Plan of Care Note [code = 04038-6] Goal Plan of Care Note [code = 31022-6] Goal Plan of Care Note [code = 48164-2] Goal Plan of Care Note [code = 77784-1] Goal Plan of Care Note [code = 17443-5] Goal Plan of Care Note [code = 36892-3] Goal Plan of Care Note [code = 38162-2] Goal Plan of Care Note [code = 03736-3] Goal Plan of Care Note [code = 35792-8] Goal Plan of Care Note [code = 29185-1] Goal Plan of Care Note [code = 73692-8] Goal Plan of Care Note [code = 66610-4] Goal Plan of Care Note [code = 77121-2] Encounters Start End Encounter Admission Attending Care Care Encounter Source Date/Time Date/Time Type Type Clinicians Facility Department ID 2022[facility]09[facility]12 [id number] 09:27:00 60880 [facility] 2022-09-01 Outpatient Deyanira Stanford [facility] [id number] 2 Common 15:16:00 [facility] 2022-04-11 Outpatient Stanford, Na STLMLC ST[facility] [id number] 2 Common 12:56:00 53097 [facility] 2021-10-27 Outpatient Stanford, Na STLMLC STLMLC [id number] 2 Common 14:22:04 27962 [facility] 2021-10-27 Outpatient STLMLC STLMLC [id number] Common 13:44:09 73729 [facility] 2021-10-27 Outpatient Hector, STLMLC STLMLC [id number] Common 12:14:07 Krys 86188 [facility] 2021-10-27 Outpatient Hector, STLMLC STLMLC [id number] Common 12:00:50 Krys 93467 [facility] 2021-10-27 Outpatient Millender, STLMLC STLMLC [id number]- 202 Common 11:50:51 Brittnee 94476 [facility] 2021-10-27 Outpatient Millender, STLMLC STLMLC [id number]- 202 Common 11:48:39 Brittnee 86460 [facility] 2021-10-27 Outpatient Millender, STLMLC STLMLC [id number]- 202 Common 11:31:44 Brittnee 36309 [facility] 2021-10-27 Outpatient Millender, STLMLC STLMLC [id number]- 202 Common 11:31:31 Brittnee 35947 [facility] 2022-09-28 2022-09-28 Outpatient SFA SFA 38344-4 022 Augusto 08:46:59 08:46:59 1228 F Kaushik 2022-09-28 2022-09-28 Outpatient zkf2zp91- [id number] fa x7vn82-q 00:00:00 00:00:00 Visit f0x6-0z16 5p9-5r85-e -g3j2-7af 2n3-1nm976 267guw090 hsj872 2022-09-18 2022-09-18 Outpatient SFA SFA 05214-7 022 Augusto 10:59:17 10:59:17 1218 F Kaushik 2022-09-18 2022-09-18 Outpatient t9d47os7- [id number] a1 c51zt3-r 00:00:00 00:00:00 Visit w73p-13q0 97d-43d3-a -zr9w-24k i7g-48w777 142m86726 i55464 2022-09-15 2022-09-15 Outpatient [facility] 11372-8 022 Augusto 13:46:23 13:46:23 1215 F Kaushik 2022-09-15 2022-09-15 Outpatient [id number]- [id number] 07 5r91ll-6 00:00:00 00:00:00 Visit 12fe-4247 2fe-4247-9 -93ff-29f 3ff-29f10e 15gv7830n z4850i 2022-09-15 2022-09-15 OFFICE STLMLC STLMLC [id number] Co mmon 00:00:00 00:00:00 VISIT NEW Spir it PT LEVEL 3 - [facility] 2022-09-05 2022-09-05 PREV VISIT STLMLC STLMLC [id number] Common 00:00:00 00:00:00 EST AGE Spirit 40-64 - [facility] 2022-07-13 2022-07-13 Outpatient [facility] SFA [id number] 022 Augusto 17:17:07 17:17:07 1012 F Kaushik 2022-07-13 2022-07-13 Outpatient lm6c8170- [id number] bc 4g2399-3 00:00:00 00:00:00 Visit 8r04-2117 g16-6314-1 -13b8-tm4 2b0-ib4996 645001h5w 653d6b 2022-06-21 2022-06-21 Outpatient hjo867xt- [id number] fc j110ck-6 00:00:00 00:00:00 Visit 36h8-086n 6u8-885m-2 -8800-e5b 800-e5bc2a l2a0c6nk6 3a1ae7 2022-06-13 2022-06-13 Outpatient [id number]- [id number] 97 709ey3-2 00:00:00 00:00:00 Visit 76s5-9o65 7q6-7x98-9 -844a-346 44a-3462aa 9ww800lc1 333fb4 2022-06-10 2022-06-10 Outpatient o24wnc65- [id number] d8 3euq13-k 00:00:00 00:00:00 Visit qo9d-867c h6c-830x-z -o84k-vbr 30f-baeed1 hv83t8uys 3c2cfd 2022-06-07 2022-06-07 Outpatient 167a7y0v- [id number] 46 7r6b3u-p 00:00:00 00:00:00 Visit p80h-8cc0 14d-4ac1-a -aca5-fb2 ca5-fb2d67 n90n18009 p46051 2022-06-02 2022-06-02 Outpatient [id number]- [id number] 90 9036ff-e 00:00:00 00:00:00 Visit mu3t-58bu u3z-33lm-8 -9ot8-1ip ec9-9jf740 124753j5r 563b9b 2022-05-27 2022-05-27 Laboratory Only, Ang Db Test [facility] 1.2.8 40.114 [id number] [facility] 14:15:00 14:30:[facility] [id number] [facility] [id number] Miguel as KENNEDY?BLEA [id number] [address] MEDICAL OFFICE [facility]ILDING 2022-05-27 2022-05-27 Outpatient R [facility] [id number] Univers 14:15:00 14:15:00 [id number] [facility] 2022-05-27 2022-05-27 Outpatient R LEEANN [facility] [id number] Univers 14:15:00 14:15:00 [facility] 2022-04-22 2022-04-22 Outpatient [id number] 00:00:00 00:00:00 Visit [id number] 2021-06-30 2021-06-30 OFFICE STLMLC STLMLC [id number] Co mmon 00:00:00 00:00:00 VISIT EST Spir it PT LEVEL 3 [facility] 2021-06-05 2021-06-05 (TEL) STLMLC STLMLC [id number] Co mmon 00:00:00 00:00:00 [facility] 2021-05-31 2021-05-31 OFFICE STLMLC STLMLC [id number] Co mmon 00:00:00 00:00:00 VISIT [facility] PT [facility] LEVEL 4 [facility] 2021-01-09 2021-01-09 Outpatient [facility] [id number] Univers 11:55:00 11:55:00 [facility] 2020-12-19 2020-12-19 Outpatient [facility] [id number] Univers 16:25:00 16:25:00 [facility] 2020-11-04 2020-11-04 (TEL) STLMLC STLMLC [id number] Co mmon 00:00:00 00:00:00 [facility] 2020-11-03 2020-11-03 OFFICE STLMLC STLMLC [id number] Co mmon 00:00:00 00:00:00 VISIT EST Spir it PT LEVEL 3 [facility] 2020-09-24 2020-09-24 (TEL) STLMLC STLMLC [id number] Co mmon 00:00:00 00:00:00 [facility] 2020-09-22 2020-09-22 OFFICE STLMLC STLMLC [id number] Co mmon 00:00:00 00:00:00 VISIT EST Spir it PT LEVEL 3 [facility] 2020-09-22 2020-09-22 (TEL) STLMLC STLMLC [id number] Co mmon 00:00:00 00:00:00 [facility] 2020-09-21 2020-09-21 (TEL) STLMLC STLMLC [id number] Co mmon 00:00:00 00:00:00 [facility] 2020-09-18 2020-09-18 OFFICE STLMLC STLMLC [id number] Co mmon 00:00:00 00:00:00 VISIT EST Spir it PT LEVEL 3 [facility] 2020-04-17 2020-04-17 [facility] [id number] Common 09:20:00 09:20:[address] [facility] 2020-04-14 2020-04-14 [facility] [id number] Common 14:41:00 14:41:[address] [facility] 2020-03-20 2020-03-20 [facility] [id number] Common 15:20:00 15:20:[address] [facility] 2019-12-18 2019-12-18 [facility] [id number] Common 09:22:00 09:22:[address] [facility] 2019-10-07 2019-10-07 [facility] [id number] Common 13:00:00 13:00:[address] [facility] 2019-09-17 2019-09-17 [facility] [id number] Common 10:42:00 10:42:[address] [facility] 2019-09-17 2019-09-17 [facility] 28 [id number] Common 09:30:00 09:30:[address] [facility] 2019-07-24 2019-07-24 [facility] 28 [id number] Common 00:37:00 00:37:[address] [facility] 2019-07-21 2019-07-21 [facility] 27 [id number] Common 14:16:00 14:16:[address] [facility] 2019-07-19 2019-07-19 [facility] 27 [id number] Common 12:07:00 12:07:[address] [facility] 2019-07-19 2019-07-19 [facility] 27 [id number] Common 10:40:00 10:40:[address] [facility] 2019-06-10 2019-06-10 [facility] 27 [id number] Common 09:59:00 09:59:00 [facility] 2019-06-07 2019-06-07 [facility] 27 [id number] Common 16:30:00 16:30:00 t [facility] 2018-07-02 2018-07-02 [facility] [id number] Common 10:54:00 10:54:[address] [facility] 2018-06-28 2018-06-28 [facility] 21 [id number] Common 16:51:00 16:51:[address] [facility] 2018-06-13 2018-06-13 [facility] 21 [id number] Common 21:04:00 21:04:[address] [facility] 2018-06-13 2018-06-13 [facility] 21 [id number] Common 11:49:00 11:49:[address] [facility] 2018-06-13 2018-06-13 [facility] [id number] Common 09:00:00 09:00:[address] [facility] 2018-05-14 2018-05-14 [facility] 15 [id number] Common 17:36:00 17:36:[address] [facility] 2018-04-17 2018-04-17 [facility] [id number] Common 16:15:00 16:15:[address] [facility] 2018-04-11 2018-04-11 [facility] [id number] Common 09:07:00 09:07:[address] [facility] 2018-04-09 2018-04-09 [facility] 14 [id number] Common 11:50:00 11:50:[address] [facility] 2018-03-26 2018-03-26 [facility] 14 [id number] Common 21:50:00 21:50:[address] [facility] 2018-03-23 2018-03-23 [facility] 14 [id number] Common 14:00:00 14:00:[address] [facility] 2018-03-14 2018-03-14 [facility] 14 [id number] Common 14:16:00 14:16:[address] [facility] 2018-03-09 2018-03-09 [facility] 14 [id number] Common 14:30:00 14:30:[address] [facility] 2018-01-23 2018-01-23 [facility] 13 [id number] Common 10:00:00 10:00:[address] [facility] Results Test Description Test Time Test Comments Results Result Comments Source CT/NG, NAAT, URINE 2022-09-29 20:17:25 Test Item Value Reference Range Interpretation Comme nts GONORRHEA, NAAT (test code = NEGATIVE NEGATIVE Note: Testing is performed with 01682) Steve RASHI 680 systems using real-time polymerase chain reaction (PCR) method. CHLAMYDIA, NAAT (test code = NEGATIVE NEGATIVE Note: Testing is performed with 84387) Steve RASHI 680 systems using real-time polymerase chain reaction (PCR) method. VAGINAL PATHOGENS DNA [id number] 15:23:23 Test Item Value Reference Range Interpretation Comments ABHAY SPECIES NEGATIVE NEGATIVE (test code = ) G. VAGINALIS NEGATIVE NEGATIVE (test code = ) T. VAGINALIS POSITIVE NEGATIVE A Note: The BD A ffirm VPIII (test code = Microbial Ident ification ) Testis a DNA pr obe test intended for us e in the detectionand id entification of Abhay spec ies, Gardnerellavagi nalis and Trichomonas vag inalis nucleic acid. U NLESS OTHERWISE INDIC ATED, ALL TESTING PERFORM ED ATCLINICAL PATHOLOGY [facility]. [address] [place] [id number] LABORATOR Y DIRECTOR: ODILON MARIANO M.D. CLIA NUMBER [id number] CAP ACCREDITATION N O. [id number] HIV 1/2 4TH GEN, RFLX [id number] 05:39:18 Test Item Value Reference Range Interpretation Comments HIV 1/2 4TH GEN, RFLX CONF (test NON-REACTIVE NON-REACTIVE code = 3514) HEPATITIS PANEL, [id number] 05:39:18 Test Item Value Reference Range Interpretation Comments HEPATITIS A IgM (test NON-REACTIVE NON-REACTIVE code = 86920) HEPATITIS B CORE IgM NON-REACTIVE NON-REACTIVE (test code = 4644) HEPATITIS B SURF AG NON-REACTIVE NON-REACTIVE (test code = 2739) HEPATITIS C ANTIBODY NON-REACTIVE NON-REACTIVE (test code = 4675) INTERPRETATION (NOTE) Hepatitis A HEPATITIS A: (test code sero logy shows no = 2552) evidence of acu te hepatitis A. INTERPRETATION (NOTE) Hepatitis B HEPATITIS B: (test code sero logy shows no = 86072) evidence of acu te hepatitis B and no indication of exposure to hepatitis B vir us in the previous daisy eight months. INTERPRETATION (NOTE) Hepatitis C HEPATITIS C: (test code sero logy shows no = 26204) evidence of exposure to hepatitisC viru s at this time. I t can take up to 12 months after exposure tothe hepatitis C vir us for antibodies to become detectab le in the blood in certain patient s. RPR REFLEX TO T. PALLIDUM - [id number] 04:43:57 Test Item Value Reference Range Interpretation Comments RPR (test code = 92123) NON-REACTIVE NON-REACTIVE RPR TITER (test code = 3500) NOT INDIC. TITER NOT INDIC. CULTURE, [id number] 00:00:00 Test Item Value Reference Range Interpretation Comments CULTURE, URINE (test SPECIMEN NUMBER: code = 12893) [id number] CULTURE, [id number] 00:00:00 Test Item Value Reference Range Interpretation Comments CULTURE, URINE (test SPECIMEN NUMBER: code = 68900) [id number] CULTURE, [id number] 00:00:00 Test Item Value Reference Range Interpretation Comments CULTURE, URINE (test SPECIMEN NUMBER: code = 25652) [id number] CULTURE, [id number] 00:00:00 Test Item Value Reference Range Interpretation Comments CULTURE, URINE (test SPECIMEN NUMBER: code = 53268) [id number] CULTURE, [id number] 11:18:54SPECIMEN NUMBER: [id number] CULTURE, URINE SPECIMEN NUMBER: [id number] SPECIMEN COMMENT: URINE SOURCE:URINE REPORT STATUS: FINAL FINAL REPORT: 07/16/2022 10-50,000 CFU/ML UROGENITAL OLEKSANDR PRESENT NO COMM ON PATHOGENSCULTURE, [id number] 00:00:00 Test Item Value Reference Range Interpretation Comments CULTURE, URINE (test SPECIMEN NUMBER: code = 59331) [id number] CULTURE, [id number] 00:00:00 Test Item Value Reference Range Interpretation Comments CULTURE, URINE (test SPECIMEN NUMBER: code = 59722) [id number] CULTURE, [id number] 00:00:00 Test Item Value Reference Range Interpretation Comments CULTURE, URINE (test SPECIMEN NUMBER: code = 44641) [id number] CULTURE, [id number] 00:00:00 Test Item Value Reference Range Interpretation Comments CULTURE, URINE (test SPECIMEN NUMBER: code = 22357) [id number] CULTURE, [id number] 00:00:00 Test Item Value Reference Range Interpretation Comments CULTURE, URINE (test SPECIMEN NUMBER: code = 53045) [id number] CULTURE, [id number] 00:00:00 Test Item Value Reference Range Interpretation Comments CULTURE, URINE (test SPECIMEN NUMBER: code = 04783) [id number] CT/NG, NAAT, [id number] 19:32:40 Test Item Value Reference Range Interpretation Comments GONORRHEA, NAAT NEGATIVE NEGATIVE IMPORTA NT NOTICE: SEE (test code = [place] [address]) [email or web address] Note: Assay methodology is nucleic acid amplification b y hose tubing backer m ediated amplification ( TMA) utilizing the A ptima Combo 2 Assay. CHLAMYDIA, NAAT NEGATIVE NEGATIVE IMPORTA NT NOTICE: SEE (test code = [place] [address]) [email or web address] Note: Assay methodology is nucleic acid amplification b y hose tubing backer m ediated amplification ( TMA) utilizing the A ptima Combo 2 Assay. VAGINAL PATHOGENS DNA [id number] 15:57:03 Test Item Value Reference Range Interpretation Comments ABHAY SPECIES (test NEGATIVE NEGATIVE code = ) G. VAGINALIS (test POSITIVE NEGATIVE A code = ) T. VAGINALIS (test POSITIVE NEGATIVE A UNLESS O THERWISE code = ) INDICATED, ALL TESTING PERFORMED [facility] PATH[facility]Y [facility], [facility]. [address] [place] [address] LABORATORY DIRE CTOR: ODILON MARIANO M.D. CLIA NUMBER [id number] [place] [id number] 04:58:02 Test Item Value Reference Range Interpretation Comments RPR RESULT (test code = NON-REACTIVE NON-REACTIVE 3501) RPR TITER (test code = 3500) NOT INDIC. TITER NOT INDIC. HIV 1/2 4TH GEN, RFLX [id number] 03:09:22 Test Item Value Reference Range Interpretation Comments HIV 1/2 4TH GEN, RFLX CONF (test NON-REACTIVE NON-REACTIVE code = 3514) HEPATITIS PANEL, [id number] 03:09:22 Test Item Value Reference Range Interpretation Comments HEPATITIS A IgM (test NON-REACTIVE NON-REACTIVE code = 53875) HEPATITIS B CORE IgM NON-REACTIVE NON-REACTIVE (test code = 4644) HEPATITIS B SURF AG NON-REACTIVE NON-REACTIVE (test code = 2739) HEPATITIS C ANTIBODY NON-REACTIVE NON-REACTIVE (test code = 4675) INTERPRETATION (NOTE) Hepatitis A HEPATITIS A: (test code sero logy shows no = 4042) evidence of acu te hepatitis A. INTERPRETATION (NOTE) Hepatitis B HEPATITIS B: (test code sero logy shows no = 90282) evidence of acu te hepatitis B and no indication of exposure to hepatitis B vir us in the previous daisy eight months. INTERPRETATION (NOTE) Hepatitis C HEPATITIS C: (test code sero logy shows no = 91483) evidence of exposure to hepatitisC viru s at this time. I t can take up to 12 months after exposure tothe hepatitis C vir us for antibodies to become detectab le in the blood in certain patient s. HIV 1/2 4TH GEN, RFLX [id number] 00:00:00 Test Item Value Reference Range Interpretation Comments HIV 1/2 4TH GEN, RFLX CONF (test NON-REACTIVE code = 3514) HIV 1/2 4TH GEN, RFLX [id number] 00:00:00 Test Item Value Reference Range Interpretation Comments HIV 1/2 4TH GEN, RFLX CONF (test NON-REACTIVE code = 3514) CT/NG, TMA, [id number] 00:00:00 Test Item Value Reference Range Interpretation Comments GONORRHEA, NAAT (test code = 60860) NEGATIVE CHLAMYDIA, NAAT (test code = 09532) NEGATIVE CT/NG, TMA, [id number] 00:00:00 Test Item Value Reference Range Interpretation Comments GONORRHEA, NAAT (test code = 29679) NEGATIVE CHLAMYDIA, NAAT (test code = 40806) NEGATIVE [id number] 00:00:00 Test Item Value Reference Range Interpretation Comments RPR RESULT (test code = NON-REACTIVE 3501) RPR TITER (test code = 3500) NOT INDIC. TITER [id number] 00:00:00 Test Item Value Reference Range Interpretation Comments RPR RESULT (test code = NON-REACTIVE 3501) RPR TITER (test code = 3500) NOT INDIC. TITER [id number] 00:00:00 Test Item Value Reference Range Interpretation Comments RPR RESULT (test code = NON-REACTIVE 3501) RPR TITER (test code = 3500) NOT INDIC. TITER ACUTE HEPATITIS [id number] 00:00:00 Test Item Value Reference Range Interpretation Comments HEPATITIS A IgM (test code = NON-REACTIVE 14868) HEPATITIS B CORE IgM (test code NON-REACTIVE = 4644) HEPATITIS B SURF AG (test code = NON-REACTIVE 2739) HEPATITIS C ANTIBODY (test code NON-REACTIVE = 4675) INTERPRETATION HEPATITIS A: (NOTE) (test code = 2552) INTERPRETATION HEPATITIS B: (NOTE) (test code = 57719) INTERPRETATION HEPATITIS C: (NOTE) (test code = 06120) ACUTE HEPATITIS [id number] 00:00:00 Test Item Value Reference Range Interpretation Comments HEPATITIS A IgM (test code = NON-REACTIVE 70145) HEPATITIS B CORE IgM (test code NON-REACTIVE = 4644) HEPATITIS B SURF AG (test code = NON-REACTIVE 2739) HEPATITIS C ANTIBODY (test code NON-REACTIVE = 4675) INTERPRETATION HEPATITIS A: (NOTE) (test code = 2552) INTERPRETATION HEPATITIS B: (NOTE) (test code = 38234) INTERPRETATION HEPATITIS C: (NOTE) (test code = 16954) VAGINAL PATHOGENS DNA [id number] 00:00:00 Test Item Value Reference Range Interpretation Comments ABHAY SPECIES (test code = ) NEGATIVE G. VAGINALIS (test code = 48820) POSITIVE T. VAGINALIS (test code = 69758) POSITIVE VAGINAL PATHOGENS DNA [id number] 00:00:00 Test Item Value Reference Range Interpretation Comments ABHAY SPECIES (test code = ) NEGATIVE G. VAGINALIS (test code = 08971) POSITIVE T. VAGINALIS (test code = 94332) POSITIVE HIV 1/2 4TH GEN, RFLX [id number] 00:00:00 Test Item Value Reference Range Interpretation Comments HIV 1/2 4TH GEN, RFLX CONF (test NON-REACTIVE code = 3514) HIV 1/2 4TH GEN, RFLX [id number] 00:00:00 Test Item Value Reference Range Interpretation Comments HIV 1/2 4TH GEN, RFLX CONF (test NON-REACTIVE code = 3514) CT/NG, TMA, [id number] 00:00:00 Test Item Value Reference Range Interpretation Comments GONORRHEA, NAAT (test code = 39432) NEGATIVE CHLAMYDIA, NAAT (test code = 36741) NEGATIVE CT/NG, TMA, [id number] 00:00:00 Test Item Value Reference Range Interpretation Comments GONORRHEA, NAAT (test code = 79579) NEGATIVE CHLAMYDIA, NAAT (test code = 34081) NEGATIVE [id number] 00:00:00 Test Item Value Reference Range Interpretation Comments RPR RESULT (test code = NON-REACTIVE 3501) RPR TITER (test code = 3500) NOT INDIC. TITER [id number] 00:00:00 Test Item Value Reference Range Interpretation Comments RPR RESULT (test code = NON-REACTIVE 3501) RPR TITER (test code = 3500) NOT INDIC. TITER [id number] 00:00:00 Test Item Value Reference Range Interpretation Comments RPR RESULT (test code = NON-REACTIVE 3501) RPR TITER (test code = 3500) NOT INDIC. TITER ACUTE HEPATITIS [id number] 00:00:00 Test Item Value Reference Range Interpretation Comments HEPATITIS A IgM (test code = NON-REACTIVE 28905) HEPATITIS B CORE IgM (test code NON-REACTIVE = 4644) HEPATITIS B SURF AG (test code = NON-REACTIVE 2739) HEPATITIS C ANTIBODY (test code NON-REACTIVE = 4675) INTERPRETATION HEPATITIS A: (NOTE) (test code = 2552) INTERPRETATION HEPATITIS B: (NOTE) (test code = 75220) INTERPRETATION HEPATITIS C: (NOTE) (test code = 98552) ACUTE HEPATITIS [id number] 00:00:00 Test Item Value Reference Range Interpretation Comments HEPATITIS A IgM (test code = NON-REACTIVE 64686) HEPATITIS B CORE IgM (test code NON-REACTIVE = 4644) HEPATITIS B SURF AG (test code = NON-REACTIVE 2739) HEPATITIS C ANTIBODY (test code NON-REACTIVE = 4675) INTERPRETATION HEPATITIS A: (NOTE) (test code = 2552) INTERPRETATION HEPATITIS B: (NOTE) (test code = 27924) INTERPRETATION HEPATITIS C: (NOTE) (test code = 87138) VAGINAL PATHOGENS DNA [id number] 00:00:00 Test Item Value Reference Range Interpretation Comments ABHAY SPECIES (test code = 55504) NEGATIVE G. VAGINALIS (test code = 63561) POSITIVE T. VAGINALIS (test code = 30581) POSITIVE VAGINAL PATHOGENS DNA [id number] 00:00:00 Test Item Value Reference Range Interpretation Comments ABHAY SPECIES (test code = 64431) NEGATIVE G. VAGINALIS (test code = 78069) POSITIVE T. VAGINALIS (test code = 19356) POSITIVE HIV 1/2 4TH GEN, RFLX [id number] 00:00:00 Test Item Value Reference Range Interpretation Comments HIV 1/2 4TH GEN, RFLX CONF (test NON-REACTIVE code = 3514) HIV 1/2 4TH GEN, RFLX [id number] 00:00:00 Test Item Value Reference Range Interpretation Comments HIV 1/2 4TH GEN, RFLX CONF (test NON-REACTIVE code = 3514) CT/NG, TMA, [id number] 00:00:00 Test Item Value Reference Range Interpretation Comments GONORRHEA, NAAT (test code = 69144) NEGATIVE CHLAMYDIA, NAAT (test code = 58423) NEGATIVE CT/NG, TMA, [id number] 00:00:00 Test Item Value Reference Range Interpretation Comments GONORRHEA, NAAT (test code = 00799) NEGATIVE CHLAMYDIA, NAAT (test code = 86536) NEGATIVE [id number] 00:00:00 Test Item Value Reference Range Interpretation Comments RPR RESULT (test code = NON-REACTIVE 3501) RPR TITER (test code = 3500) NOT INDIC. TITER [id number] 00:00:00 Test Item Value Reference Range Interpretation Comments RPR RESULT (test code = NON-REACTIVE 3501) RPR TITER (test code = 3500) NOT INDIC. TITER [id number] 00:00:00 Test Item Value Reference Range Interpretation Comments RPR RESULT (test code = NON-REACTIVE 3501) RPR TITER (test code = 3500) NOT INDIC. TITER ACUTE HEPATITIS [id number] 00:00:00 Test Item Value Reference Range Interpretation Comments HEPATITIS A IgM (test code = NON-REACTIVE 54106) HEPATITIS B CORE IgM (test code NON-REACTIVE = 4644) HEPATITIS B SURF AG (test code = NON-REACTIVE 2739) HEPATITIS C ANTIBODY (test code NON-REACTIVE = 4675) INTERPRETATION HEPATITIS A: (NOTE) (test code = 2552) INTERPRETATION HEPATITIS B: (NOTE) (test code = 00748) INTERPRETATION HEPATITIS C: (NOTE) (test code = 60170) ACUTE HEPATITIS [id number] 00:00:00 Test Item Value Reference Range Interpretation Comments HEPATITIS A IgM (test code = NON-REACTIVE 93039) HEPATITIS B CORE IgM (test code NON-REACTIVE = 4644) HEPATITIS B SURF AG (test code = NON-REACTIVE 2739) HEPATITIS C ANTIBODY (test code NON-REACTIVE = 4675) INTERPRETATION HEPATITIS A: (NOTE) (test code = 2552) INTERPRETATION HEPATITIS B: (NOTE) (test code = 22485) INTERPRETATION HEPATITIS C: (NOTE) (test code = 07862) VAGINAL PATHOGENS DNA [id number] 00:00:00 Test Item Value Reference Range Interpretation Comments ABHAY SPECIES (test code = ) NEGATIVE G. VAGINALIS (test code = ) POSITIVE T. VAGINALIS (test code = 33877) POSITIVE VAGINAL PATHOGENS DNA [id number] 00:00:00 Test Item Value Reference Range Interpretation Comments ABHAY SPECIES (test code = ) NEGATIVE G. VAGINALIS (test code = ) POSITIVE T. VAGINALIS (test code = 01580) POSITIVE TSH, THIRD [id number] 06:51:11 Test Item Value Reference Range Interpretation Comments TSH, THIRD GENERATION (test code 0.937 UIU/ML 0.400-4.100 = 2821) HEMOGLOBIN [id number] 05:51:57 Test Item Value Reference Range Interpretation Comments HEMOGLOBIN A1c (test code = 46783) 5.6 % 4.2-5.6 COMPREHENSIVE METABOLIC [id number] 04:57:05 Test Item Value Reference Range Interpretation Comments GLUCOSE (test code = 105 MG/DL 70-99 H 2216) BUN (test code = 12 MG/DL 6-20 2207) CREATININE (test 0.70 MG/DL 0.60-1.30 code = 2214) eGFR (2020 CKD-EPI) 111 >60 (test code = 02034) ML/MIN/1.73 CALC BUN/CREAT (test 17 RATIO 6-28 code = 2235) SODIUM (test code = 138 MEQ/L 487-375 5512) POTASSIUM (test code 4.1 MEQ/L 3.5-5.4 = 2227) CHLORIDE (test code 102 MEQ/L 95-107 = 221) CARBON DIOXIDE (test 24 MEQ/L 19-31 code = 220) CALCIUM (test code = 9.9 MG/DL 8.5-10.5 2208) PROTEIN, TOTAL (test 7.3 G/DL 6.1-8.3 code = 222) ALBUMIN (test code = 4.8 G/DL 3.5-5.2 2201) CALC GLOBULIN (test 2.5 G/DL 1.9-3.7 code = 2240) CALC A/G RATIO (test 1.9 RATIO 1.0-2.6 code = 2234) BILIRUBIN, TOTAL 0.7 MG/DL See_Comment [Automated message] (test code = 2207) The syste m which generated this result transmit darryl reference range : <=1.2. The refe rence range was not u sed to interpret th is result as normal/abnormal . ALKALINE PHOSPHATASE 71 U/L 40-113 (test code = 220) AST (test code = 11 U/L 9-40 2217) ALT (test code = 17 U/L 5-40 2218) LIPID [id number] 04:57:05 Test Item Value Reference Range Interpretation Comments CHOLESTEROL (test 249 MG/DL <200 H code = 2210) TRIGLYCERIDES (test 97 MG/DL <150 code = 2232) HDL CHOLESTEROL (test 70 MG/DL >39 code = 2220) CALC LDL CHOL (test 158 MG/DL <100 H NOTE: C ALCULATED LDL code = 2237) IS BASED ON AMEE-LOERA METHOD WHICHINCLUDES ADJUSTABLE TRIGLYCERIDE:VL DL CHOLESTEROL RAT IO.THIS FACTOR VARIES B Y MEASURED TRIGLY CERIDE AND NON-HDLCHOL ESTEROL CONCENTRATIONS WITH INCREASED CALCU LATED LDL SEENIN HIGH ER TRIGLYCERIDE OR LOWER NON-HDL SPECIME NS. FOR MOREINFORMATION , SEE CLIENT ANNOUNCE MENT AT [email or web address] RISK RATIO LDL/HDL 2.26 RATIO <3.22 (test code = 2238) CBC W/AUTO DIFF WITH [id number] 03:43:22 Test Item Value Reference Range Interpretation Comments WBC (test code = 6.1 K/UL 3.5-11.0 1001) RBC (test code = 4.39 M/UL 3.80-5.40 1002) HEMOGLOBIN (test 12.9 G/DL 11.5-15.5 code = 1003) HEMATOCRIT (test 39.6 % 34.0-45.0 code = 1004) MCV (test code = 90.2 fL 80.0-99.0 1005) MCH (test code = 29.4 PG 25.0-33.0 1006) MCHC (test code = 32.6 G/DL 31.0-36.0 1007) RDW (test code = 13.0 % 11.5-15.0 1038) NEUTROPHILS (test 79.7 % code = 1008) LYMPHOCYTES (test 14.6 % code = 1010) MONOCYTES (test code 3.8 % = 1011) EOSINOPHILS (test 1.1 % code = 1012) BASOPHILS (test code 0.3 % = 1013) IMMATURE 0.5 % GRANULOCYTES (test code = 1036) NUCLEATED RBCS (test 0.0 /100 See_Comment [Autom ated message] code = 1065) WBC'S The system [employer] generated this result transmitted ref erence range: 0.0. The reference range was not used to int erpret this result as normal/abnormal . PLATELET COUNT (test 288 K/UL 130-400 code = 1015) ABSOLUTE NEUTROPHILS 4.86 K/UL 1.50-7.50 (test code = 1066) ABSOLUTE LYMPHOCYTES 0.89 K/UL 1.00-4.00 L (test code = 1067) ABSOLUTE MONOCYTES 0.23 K/UL 0.20-1.00 (test code = 1068) ABSOLUTE EOSINOPHILS 0.07 K/UL 0.00-0.50 (test code = 1040) ABSOLUTE BASOPHILS 0.02 K/UL 0.00-0.20 (test code = 1069) ABS IMMATURE 0.03 K/UL 0.00-0.10 GRANULOCYTES (test code = 1020) ABS NUCLEATED RBCS 0.00 K/UL 0.00-0.11 UNLESS O THERWISE (test code = 35945) INDICATE D, ALL TESTING PERFORM ED ATCLINICAL PATH OLOGY LABORATORIES, [facility]. [address] [place] [id number] [place] [address] DIRECTOR: ODILON SUMMRES M.D. CLIA NUMBER [id number] CAP ACCREDITATION N O. [id number] LIPID [id number] 00:00:00 Test Item Value Reference Range Interpretation Comments CHOLESTEROL (test code = 2210) 249 MG/DL TRIGLYCERIDES (test code = 2232) 97 MG/DL HDL CHOLESTEROL (test code = 2220) 70 MG/DL CALC LDL CHOL (test code = 2237) 158 MG/DL RISK RATIO LDL/HDL (test code = 2.26 RATIO 2238) HEMOGLOBIN [id number] 00:00:00 Test Item Value Reference Range Interpretation Comments HEMOGLOBIN A1c (test code = 25916) 5.6 % HEMOGLOBIN [id number] 00:00:00 Test Item Value Reference Range Interpretation Comments HEMOGLOBIN A1c (test code = 77265) 5.6 % HEMOGLOBIN [id number] 00:00:00 Test Item Value Reference Range Interpretation Comments HEMOGLOBIN A1c (test code = 74973) 5.6 % TSH, THIRD [id number] 00:00:00 Test Item Value Reference Range Interpretation Comments TSH, THIRD GENERATION (test code 0.937 UIU/ML = 2821) TSH, THIRD [id number] 00:00:00 Test Item Value Reference Range Interpretation Comments TSH, THIRD GENERATION (test code 0.937 UIU/ML = 2821) TSH, THIRD [id number] 00:00:00 Test Item Value Reference Range Interpretation Comments TSH, THIRD GENERATION (test code 0.937 UIU/ML = 2821) CBC W/AUTO [id number] 00:00:00 Test Item Value Reference Range Interpretation Comments WBC (test code = 1001) 6.1 K/UL RBC (test code = 1002) 4.39 M/UL HEMOGLOBIN (test code = 1003) 12.9 G/DL HEMATOCRIT (test code = 1004) 39.6 % MCV (test code = 1005) 90.2 fL MCH (test code = 1006) 29.4 PG MCHC (test code = 1007) 32.6 G/DL RDW (test code = 1038) 13.0 % NEUTROPHILS (test code = 1008) 79.7 % LYMPHOCYTES (test code = 1010) 14.6 % MONOCYTES (test code = 1011) 3.8 % EOSINOPHILS (test code = 1012) 1.1 % BASOPHILS (test code = 1013) 0.3 % IMMATURE GRANULOCYTES (test 0.5 % code = 1036) NUCLEATED RBCS (test code = 0.0 /100WBC'S 1065) PLATELET COUNT (test code = 288 K/UL 1015) ABSOLUTE NEUTROPHILS (test code 4.86 K/UL = 1066) ABSOLUTE LYMPHOCYTES (test code 0.89 K/UL = 1067) ABSOLUTE MONOCYTES (test code = 0.23 K/UL 1068) ABSOLUTE EOSINOPHILS (test code 0.07 K/UL = 1040) ABSOLUTE BASOPHILS (test code = 0.02 K/UL 1069) ABS IMMATURE GRANULOCYTES (test 0.03 K/UL code = 1020) ABS NUCLEATED RBCS (test code = 0.00 K/UL 66631) CBC W/AUTO [id number] 00:00:00 Test Item Value Reference Range Interpretation Comments WBC (test code = 1001) 6.1 K/UL RBC (test code = 1002) 4.39 M/UL HEMOGLOBIN (test code = 1003) 12.9 G/DL HEMATOCRIT (test code = 1004) 39.6 % MCV (test code = 1005) 90.2 fL MCH (test code = 1006) 29.4 PG MCHC (test code = 1007) 32.6 G/DL RDW (test code = 1038) 13.0 % NEUTROPHILS (test code = 1008) 79.7 % LYMPHOCYTES (test code = 1010) 14.6 % MONOCYTES (test code = 1011) 3.8 % EOSINOPHILS (test code = 1012) 1.1 % BASOPHILS (test code = 1013) 0.3 % IMMATURE GRANULOCYTES (test 0.5 % code = 1036) NUCLEATED RBCS (test code = 0.0 /100WBC'S 1065) PLATELET COUNT (test code = 288 K/UL 1015) ABSOLUTE NEUTROPHILS (test code 4.86 K/UL = 1066) ABSOLUTE LYMPHOCYTES (test code 0.89 K/UL = 1067) ABSOLUTE MONOCYTES (test code = 0.23 K/UL 1068) ABSOLUTE EOSINOPHILS (test code 0.07 K/UL = 1040) ABSOLUTE BASOPHILS (test code = 0.02 K/UL 1069) ABS IMMATURE GRANULOCYTES (test 0.03 K/UL code = 1020) ABS NUCLEATED RBCS (test code = 0.00 K/UL 54885) CBC W/AUTO [id number] 00:00:00 Test Item Value Reference Range Interpretation Comments WBC (test code = 1001) 6.1 K/UL RBC (test code = 1002) 4.39 M/UL HEMOGLOBIN (test code = 1003) 12.9 G/DL HEMATOCRIT (test code = 1004) 39.6 % MCV (test code = 1005) 90.2 fL MCH (test code = 1006) 29.4 PG MCHC (test code = 1007) 32.6 G/DL RDW (test code = 1038) 13.0 % NEUTROPHILS (test code = 1008) 79.7 % LYMPHOCYTES (test code = 1010) 14.6 % MONOCYTES (test code = 1011) 3.8 % EOSINOPHILS (test code = 1012) 1.1 % BASOPHILS (test code = 1013) 0.3 % IMMATURE GRANULOCYTES (test 0.5 % code = 1036) NUCLEATED RBCS (test code = 0.0 /100WBC'S 1065) PLATELET COUNT (test code = 288 K/UL 1015) ABSOLUTE NEUTROPHILS (test code 4.86 K/UL = 1066) ABSOLUTE LYMPHOCYTES (test code 0.89 K/UL = 1067) ABSOLUTE MONOCYTES (test code = 0.23 K/UL 1068) ABSOLUTE EOSINOPHILS (test code 0.07 K/UL = 1040) ABSOLUTE BASOPHILS (test code = 0.02 K/UL 1069) ABS IMMATURE GRANULOCYTES (test 0.03 K/UL code = 1020) ABS NUCLEATED RBCS (test code = 0.00 K/UL 31266) COMPREHENSIVE METABOLIC [id number] 00:00:00 Test Item Value Reference Range Interpretation Comments GLUCOSE (test code = 2217) 105 MG/DL BUN (test code = 2208) 12 MG/DL CREATININE (test code = 2214) 0.70 MG/DL eGFR (2020 CKD-EPI) (test 111 ML/MIN/1.73 code = 24971) CALC BUN/CREAT (test code = 17 RATIO 2235) SODIUM (test code = 2231) 138 MEQ/L POTASSIUM (test code = 2228) 4.1 MEQ/L CHLORIDE (test code = 2215) 102 MEQ/L CARBON DIOXIDE (test code = 24 MEQ/L 2206) CALCIUM (test code = 2209) 9.9 MG/DL PROTEIN, TOTAL (test code = 7.3 G/DL 2228) ALBUMIN (test code = 2201) 4.8 G/DL CALC GLOBULIN (test code = 2.5 G/DL 2240) CALC A/G RATIO (test code = 1.9 RATIO 2234) BILIRUBIN, TOTAL (test code = 0.7 MG/DL 2207) ALKALINE PHOSPHATASE (test 71 U/L code = 2204) AST (test code = 2218) 11 U/L ALT (test code = 2219) 17 U/L COMPREHENSIVE METABOLIC [id number] 00:00:00 Test Item Value Reference Range Interpretation Comments GLUCOSE (test code = 2217) 105 MG/DL BUN (test code = 2208) 12 MG/DL CREATININE (test code = 2214) 0.70 MG/DL eGFR (2020 CKD-EPI) (test 111 ML/MIN/1.73 code = 05389) CALC BUN/CREAT (test code = 17 RATIO 2235) SODIUM (test code = 2231) 138 MEQ/L POTASSIUM (test code = 2228) 4.1 MEQ/L CHLORIDE (test code = 2215) 102 MEQ/L CARBON DIOXIDE (test code = 24 MEQ/L 2205) CALCIUM (test code = 2209) 9.9 MG/DL PROTEIN, TOTAL (test code = 7.3 G/DL 2228) ALBUMIN (test code = 2201) 4.8 G/DL CALC GLOBULIN (test code = 2.5 G/DL 2239) CALC A/G RATIO (test code = 1.9 RATIO 2234) BILIRUBIN, TOTAL (test code = 0.7 MG/DL 2206) ALKALINE PHOSPHATASE (test 71 U/L code = 2204) AST (test code = 2218) 11 U/L ALT (test code = 2219) 17 U/L LIPID [id number] 00:00:00 Test Item Value Reference Range Interpretation Comments CHOLESTEROL (test code = 2210) 249 MG/DL TRIGLYCERIDES (test code = 2232) 97 MG/DL HDL CHOLESTEROL (test code = 2220) 70 MG/DL CALC LDL CHOL (test code = 2237) 158 MG/DL RISK RATIO LDL/HDL (test code = 2.26 RATIO 2238) LIPID [id number] 00:00:00 Test Item Value Reference Range Interpretation Comments CHOLESTEROL (test code = 2210) 249 MG/DL TRIGLYCERIDES (test code = 2232) 97 MG/DL HDL CHOLESTEROL (test code = 2220) 70 MG/DL CALC LDL CHOL (test code = 2237) 158 MG/DL RISK RATIO LDL/HDL (test code = 2.26 RATIO 2238) HEMOGLOBIN [id number] 00:00:00 Test Item Value Reference Range Interpretation Comments HEMOGLOBIN A1c (test code = 22640) 5.6 % HEMOGLOBIN [id number] 00:00:00 Test Item Value Reference Range Interpretation Comments HEMOGLOBIN A1c (test code = 02122) 5.6 % HEMOGLOBIN [id number] 00:00:00 Test Item Value Reference Range Interpretation Comments HEMOGLOBIN A1c (test code = 84902) 5.6 % TSH, THIRD [id number] 00:00:00 Test Item Value Reference Range Interpretation Comments TSH, THIRD GENERATION (test code 0.937 UIU/ML = 2821) TSH, THIRD [id number] 00:00:00 Test Item Value Reference Range Interpretation Comments TSH, THIRD GENERATION (test code 0.937 UIU/ML = 2821) TSH, THIRD [id number] 00:00:00 Test Item Value Reference Range Interpretation Comments TSH, THIRD GENERATION (test code 0.937 UIU/ML = 2821) CBC W/AUTO [id number] 00:00:00 Test Item Value Reference Range Interpretation Comments WBC (test code = 1001) 6.1 K/UL RBC (test code = 1002) 4.39 M/UL HEMOGLOBIN (test code = 1003) 12.9 G/DL HEMATOCRIT (test code = 1004) 39.6 % MCV (test code = 1005) 90.2 fL MCH (test code = 1006) 29.4 PG MCHC (test code = 1007) 32.6 G/DL RDW (test code = 1038) 13.0 % NEUTROPHILS (test code = 1008) 79.7 % LYMPHOCYTES (test code = 1010) 14.6 % MONOCYTES (test code = 1011) 3.8 % EOSINOPHILS (test code = 1012) 1.1 % BASOPHILS (test code = 1013) 0.3 % IMMATURE GRANULOCYTES (test 0.5 % code = 1036) NUCLEATED RBCS (test code = 0.0 /100WBC'S 1065) PLATELET COUNT (test code = 288 K/UL 1015) ABSOLUTE NEUTROPHILS (test code 4.86 K/UL = 1066) ABSOLUTE LYMPHOCYTES (test code 0.89 K/UL = 1067) ABSOLUTE MONOCYTES (test code = 0.23 K/UL 1068) ABSOLUTE EOSINOPHILS (test code 0.07 K/UL = 1040) ABSOLUTE BASOPHILS (test code = 0.02 K/UL 1069) ABS IMMATURE GRANULOCYTES (test 0.03 K/UL code = 1020) ABS NUCLEATED RBCS (test code = 0.00 K/UL 53751) CBC W/AUTO [id number] 00:00:00 Test Item Value Reference Range Interpretation Comments WBC (test code = 1001) 6.1 K/UL RBC (test code = 1002) 4.39 M/UL HEMOGLOBIN (test code = 1003) 12.9 G/DL HEMATOCRIT (test code = 1004) 39.6 % MCV (test code = 1005) 90.2 fL MCH (test code = 1006) 29.4 PG MCHC (test code = 1007) 32.6 G/DL RDW (test code = 1038) 13.0 % NEUTROPHILS (test code = 1008) 79.7 % LYMPHOCYTES (test code = 1010) 14.6 % MONOCYTES (test code = 1011) 3.8 % EOSINOPHILS (test code = 1012) 1.1 % BASOPHILS (test code = 1013) 0.3 % IMMATURE GRANULOCYTES (test 0.5 % code = 1036) NUCLEATED RBCS (test code = 0.0 /100WBC'S 1065) PLATELET COUNT (test code = 288 K/UL 1015) ABSOLUTE NEUTROPHILS (test code 4.86 K/UL = 1066) ABSOLUTE LYMPHOCYTES (test code 0.89 K/UL = 1067) ABSOLUTE MONOCYTES (test code = 0.23 K/UL 1068) ABSOLUTE EOSINOPHILS (test code 0.07 K/UL = 1040) ABSOLUTE BASOPHILS (test code = 0.02 K/UL 1069) ABS IMMATURE GRANULOCYTES (test 0.03 K/UL code = 1020) ABS NUCLEATED RBCS (test code = 0.00 K/UL 82953) CBC W/AUTO [id number] 00:00:00 Test Item Value Reference Range Interpretation Comments WBC (test code = 1001) 6.1 K/UL RBC (test code = 1002) 4.39 M/UL HEMOGLOBIN (test code = 1003) 12.9 G/DL HEMATOCRIT (test code = 1004) 39.6 % MCV (test code = 1005) 90.2 fL MCH (test code = 1006) 29.4 PG MCHC (test code = 1007) 32.6 G/DL RDW (test code = 1038) 13.0 % NEUTROPHILS (test code = 1008) 79.7 % LYMPHOCYTES (test code = 1010) 14.6 % MONOCYTES (test code = 1011) 3.8 % EOSINOPHILS (test code = 1012) 1.1 % BASOPHILS (test code = 1013) 0.3 % IMMATURE GRANULOCYTES (test 0.5 % code = 1036) NUCLEATED RBCS (test code = 0.0 /100WBC'S 1065) PLATELET COUNT (test code = 288 K/UL 1015) ABSOLUTE NEUTROPHILS (test code 4.86 K/UL = 1066) ABSOLUTE LYMPHOCYTES (test code 0.89 K/UL = 1067) ABSOLUTE MONOCYTES (test code = 0.23 K/UL 1068) ABSOLUTE EOSINOPHILS (test code 0.07 K/UL = 1040) ABSOLUTE BASOPHILS (test code = 0.02 K/UL 1069) ABS IMMATURE GRANULOCYTES (test 0.03 K/UL code = 1020) ABS NUCLEATED RBCS (test code = 0.00 K/UL 90193) COMPREHENSIVE METABOLIC [id number] 00:00:00 Test Item Value Reference Range Interpretation Comments GLUCOSE (test code = 2217) 105 MG/DL BUN (test code = 2208) 12 MG/DL CREATININE (test code = 2214) 0.70 MG/DL eGFR (2020 CKD-EPI) (test 111 ML/MIN/1.73 code = 65039) CALC BUN/CREAT (test code = 17 RATIO 2235) SODIUM (test code = 2231) 138 MEQ/L POTASSIUM (test code = 2228) 4.1 MEQ/L CHLORIDE (test code = 2215) 102 MEQ/L CARBON DIOXIDE (test code = 24 MEQ/L 2205) CALCIUM (test code = 2209) 9.9 MG/DL PROTEIN, TOTAL (test code = 7.3 G/DL 2228) ALBUMIN (test code = 2201) 4.8 G/DL CALC GLOBULIN (test code = 2.5 G/DL 2240) CALC A/G RATIO (test code = 1.9 RATIO 2234) BILIRUBIN, TOTAL (test code = 0.7 MG/DL 2206) ALKALINE PHOSPHATASE (test 71 U/L code = 2204) AST (test code = 2218) 11 U/L ALT (test code = 2219) 17 U/L COMPREHENSIVE METABOLIC [id number] 00:00:00 Test Item Value Reference Range Interpretation Comments GLUCOSE (test code = 2217) 105 MG/DL BUN (test code = 2208) 12 MG/DL CREATININE (test code = 2214) 0.70 MG/DL eGFR (2020 CKD-EPI) (test 111 ML/MIN/1.73 code = 38833) CALC BUN/CREAT (test code = 17 RATIO 2235) SODIUM (test code = 2231) 138 MEQ/L POTASSIUM (test code = 2228) 4.1 MEQ/L CHLORIDE (test code = 2215) 102 MEQ/L CARBON DIOXIDE (test code = 24 MEQ/L 2205) CALCIUM (test code = 2209) 9.9 MG/DL PROTEIN, TOTAL (test code = 7.3 G/DL 2228) ALBUMIN (test code = 220) 4.8 G/DL CALC GLOBULIN (test code = 2.5 G/DL 2239) CALC A/G RATIO (test code = 1.9 RATIO 2233) BILIRUBIN, TOTAL (test code = 0.7 MG/DL 2206) ALKALINE PHOSPHATASE (test 71 U/L code = 2204) AST (test code = 2218) 11 U/L ALT (test code = 2219) 17 U/L LIPID [id number] 00:00:00 Test Item Value Reference Range Interpretation Comments CHOLESTEROL (test code = 2210) 249 MG/DL TRIGLYCERIDES (test code = 2232) 97 MG/DL HDL CHOLESTEROL (test code = 2220) 70 MG/DL CALC LDL CHOL (test code = 2237) 158 MG/DL RISK RATIO LDL/HDL (test code = 2.26 RATIO 2238) LIPID [id number] 00:00:00 Test Item Value Reference Range Interpretation Comments CHOLESTEROL (test code = 2210) 249 MG/DL TRIGLYCERIDES (test code = 2232) 97 MG/DL HDL CHOLESTEROL (test code = 2220) 70 MG/DL CALC LDL CHOL (test code = 2237) 158 MG/DL RISK RATIO LDL/HDL (test code = 2.26 RATIO 2238) HEMOGLOBIN [id number] 00:00:00 Test Item Value Reference Range Interpretation Comments HEMOGLOBIN A1c (test code = 06790) 5.6 % HEMOGLOBIN [id number] 00:00:00 Test Item Value Reference Range Interpretation Comments HEMOGLOBIN A1c (test code = 57925) 5.6 % HEMOGLOBIN [id number] 00:00:00 Test Item Value Reference Range Interpretation Comments HEMOGLOBIN A1c (test code = 61045) 5.6 % TSH, THIRD [id number] 00:00:00 Test Item Value Reference Range Interpretation Comments TSH, THIRD GENERATION (test code 0.937 UIU/ML = 2821) TSH, THIRD [id number] 00:00:00 Test Item Value Reference Range Interpretation Comments TSH, THIRD GENERATION (test code 0.937 UIU/ML = 2821) TSH, THIRD [id number] 00:00:00 Test Item Value Reference Range Interpretation Comments TSH, THIRD GENERATION (test code 0.937 UIU/ML = 2821) CBC W/AUTO [id number] 00:00:00 Test Item Value Reference Range Interpretation Comments WBC (test code = 1001) 6.1 K/UL RBC (test code = 1002) 4.39 M/UL HEMOGLOBIN (test code = 1003) 12.9 G/DL HEMATOCRIT (test code = 1004) 39.6 % MCV (test code = 1005) 90.2 fL MCH (test code = 1006) 29.4 PG MCHC (test code = 1007) 32.6 G/DL RDW (test code = 1038) 13.0 % NEUTROPHILS (test code = 1008) 79.7 % LYMPHOCYTES (test code = 1010) 14.6 % MONOCYTES (test code = 1011) 3.8 % EOSINOPHILS (test code = 1012) 1.1 % BASOPHILS (test code = 1013) 0.3 % IMMATURE GRANULOCYTES (test 0.5 % code = 1036) NUCLEATED RBCS (test code = 0.0 /100WBC'S 1065) PLATELET COUNT (test code = 288 K/UL 1015) ABSOLUTE NEUTROPHILS (test code 4.86 K/UL = 1066) ABSOLUTE LYMPHOCYTES (test code 0.89 K/UL = 1067) ABSOLUTE MONOCYTES (test code = 0.23 K/UL 1068) ABSOLUTE EOSINOPHILS (test code 0.07 K/UL = 1040) ABSOLUTE BASOPHILS (test code = 0.02 K/UL 1069) ABS IMMATURE GRANULOCYTES (test 0.03 K/UL code = 1020) ABS NUCLEATED RBCS (test code = 0.00 K/UL 72503) CBC W/AUTO [id number] 00:00:00 Test Item Value Reference Range Interpretation Comments WBC (test code = 1001) 6.1 K/UL RBC (test code = 1002) 4.39 M/UL HEMOGLOBIN (test code = 1003) 12.9 G/DL HEMATOCRIT (test code = 1004) 39.6 % MCV (test code = 1005) 90.2 fL MCH (test code = 1006) 29.4 PG MCHC (test code = 1007) 32.6 G/DL RDW (test code = 1038) 13.0 % NEUTROPHILS (test code = 1008) 79.7 % LYMPHOCYTES (test code = 1010) 14.6 % MONOCYTES (test code = 1011) 3.8 % EOSINOPHILS (test code = 1012) 1.1 % BASOPHILS (test code = 1013) 0.3 % IMMATURE GRANULOCYTES (test 0.5 % code = 1036) NUCLEATED RBCS (test code = 0.0 /100WBC'S 1065) PLATELET COUNT (test code = 288 K/UL 1015) ABSOLUTE NEUTROPHILS (test code 4.86 K/UL = 1066) ABSOLUTE LYMPHOCYTES (test code 0.89 K/UL = 1067) ABSOLUTE MONOCYTES (test code = 0.23 K/UL 1068) ABSOLUTE EOSINOPHILS (test code 0.07 K/UL = 1040) ABSOLUTE BASOPHILS (test code = 0.02 K/UL 1069) ABS IMMATURE GRANULOCYTES (test 0.03 K/UL code = 1020) ABS NUCLEATED RBCS (test code = 0.00 K/UL 99172) CBC W/AUTO [id number] 00:00:00 Test Item Value Reference Range Interpretation Comments WBC (test code = 1001) 6.1 K/UL RBC (test code = 1002) 4.39 M/UL HEMOGLOBIN (test code = 1003) 12.9 G/DL HEMATOCRIT (test code = 1004) 39.6 % MCV (test code = 1005) 90.2 fL MCH (test code = 1006) 29.4 PG MCHC (test code = 1007) 32.6 G/DL RDW (test code = 1038) 13.0 % NEUTROPHILS (test code = 1008) 79.7 % LYMPHOCYTES (test code = 1010) 14.6 % MONOCYTES (test code = 1011) 3.8 % EOSINOPHILS (test code = 1012) 1.1 % BASOPHILS (test code = 1013) 0.3 % IMMATURE GRANULOCYTES (test 0.5 % code = 1036) NUCLEATED RBCS (test code = 0.0 /100WBC'S 1065) PLATELET COUNT (test code = 288 K/UL 1015) ABSOLUTE NEUTROPHILS (test code 4.86 K/UL = 1066) ABSOLUTE LYMPHOCYTES (test code 0.89 K/UL = 1067) ABSOLUTE MONOCYTES (test code = 0.23 K/UL 1068) ABSOLUTE EOSINOPHILS (test code 0.07 K/UL = 1040) ABSOLUTE BASOPHILS (test code = 0.02 K/UL 1069) ABS IMMATURE GRANULOCYTES (test 0.03 K/UL code = 1020) ABS NUCLEATED RBCS (test code = 0.00 K/UL 95338) COMPREHENSIVE METABOLIC [id number] 00:00:00 Test Item Value Reference Range Interpretation Comments GLUCOSE (test code = 2217) 105 MG/DL BUN (test code = 2208) 12 MG/DL CREATININE (test code = 2214) 0.70 MG/DL eGFR (2020 CKD-EPI) (test 111 ML/MIN/1.73 code = 03610) CALC BUN/CREAT (test code = 17 RATIO 223) SODIUM (test code = 2231) 138 MEQ/L POTASSIUM (test code = 2228) 4.1 MEQ/L CHLORIDE (test code = 2215) 102 MEQ/L CARBON DIOXIDE (test code = 24 MEQ/L 2205) CALCIUM (test code = 2209) 9.9 MG/DL PROTEIN, TOTAL (test code = 7.3 G/DL 2228) ALBUMIN (test code = 2201) 4.8 G/DL CALC GLOBULIN (test code = 2.5 G/DL 2240) CALC A/G RATIO (test code = 1.9 RATIO 4) BILIRUBIN, TOTAL (test code = 0.7 MG/DL 2206) ALKALINE PHOSPHATASE (test 71 U/L code = 2204) AST (test code = 2218) 11 U/L ALT (test code = 2219) 17 U/L COMPREHENSIVE METABOLIC [id number] 00:00:00 Test Item Value Reference Range Interpretation Comments GLUCOSE (test code = 2217) 105 MG/DL BUN (test code = 2208) 12 MG/DL CREATININE (test code = 2214) 0.70 MG/DL eGFR (2020 CKD-EPI) (test 111 ML/MIN/1.73 code = 28733) CALC BUN/CREAT (test code = 17 RATIO 2235) SODIUM (test code = 2231) 138 MEQ/L POTASSIUM (test code = 2228) 4.1 MEQ/L CHLORIDE (test code = 2215) 102 MEQ/L CARBON DIOXIDE (test code = 24 MEQ/L 2205) CALCIUM (test code = 2209) 9.9 MG/DL PROTEIN, TOTAL (test code = 7.3 G/DL 2228) ALBUMIN (test code = 2201) 4.8 G/DL CALC GLOBULIN (test code = 2.5 G/DL 224) CALC A/G RATIO (test code = 1.9 RATIO 2234) BILIRUBIN, TOTAL (test code = 0.7 MG/DL 2206) ALKALINE PHOSPHATASE (test 71 U/L code = 2204) AST (test code = 2218) 11 U/L ALT (test code = 2219) 17 U/L LIPID [id number] 00:00:00 Test Item Value Reference Range Interpretation Comments CHOLESTEROL (test code = 2210) 249 MG/DL TRIGLYCERIDES (test code = 2232) 97 MG/DL HDL CHOLESTEROL (test code = 2220) 70 MG/DL CALC LDL CHOL (test code = 2237) 158 MG/DL RISK RATIO LDL/HDL (test code = 2.26 RATIO 2238) LIPID [id number] 00:00:00 Test Item Value Reference Range Interpretation Comments CHOLESTEROL (test code = 2210) 249 MG/DL TRIGLYCERIDES (test code = 2232) 97 MG/DL HDL CHOLESTEROL (test code = 2220) 70 MG/DL CALC LDL CHOL (test code = 2237) 158 MG/DL RISK RATIO LDL/HDL (test code = 2.26 RATIO 2238) HEMOGLOBIN [id number] 00:00:00 Test Item Value Reference Range Interpretation Comments HEMOGLOBIN A1c (test code = 76682) 5.6 % HEMOGLOBIN [id number] 00:00:00 Test Item Value Reference Range Interpretation Comments HEMOGLOBIN A1c (test code = 22911) 5.6 % HEMOGLOBIN [id number] 00:00:00 Test Item Value Reference Range Interpretation Comments HEMOGLOBIN A1c (test code = 91012) 5.6 % TSH, THIRD [id number] 00:00:00 Test Item Value Reference Range Interpretation Comments TSH, THIRD GENERATION (test code 0.937 UIU/ML = 2821) TSH, THIRD [id number] 00:00:00 Test Item Value Reference Range Interpretation Comments TSH, THIRD GENERATION (test code 0.937 UIU/ML = 2821) TSH, THIRD [id number] 00:00:00 Test Item Value Reference Range Interpretation Comments TSH, THIRD GENERATION (test code 0.937 UIU/ML = 2821) CBC W/AUTO [id number] 00:00:00 Test Item Value Reference Range Interpretation Comments WBC (test code = 1001) 6.1 K/UL RBC (test code = 1002) 4.39 M/UL HEMOGLOBIN (test code = 1003) 12.9 G/DL HEMATOCRIT (test code = 1004) 39.6 % MCV (test code = 1005) 90.2 fL MCH (test code = 1006) 29.4 PG MCHC (test code = 1007) 32.6 G/DL RDW (test code = 1038) 13.0 % NEUTROPHILS (test code = 1008) 79.7 % LYMPHOCYTES (test code = 1010) 14.6 % MONOCYTES (test code = 1011) 3.8 % EOSINOPHILS (test code = 1012) 1.1 % BASOPHILS (test code = 1013) 0.3 % IMMATURE GRANULOCYTES (test 0.5 % code = 1036) NUCLEATED RBCS (test code = 0.0 /100WBC'S 1065) PLATELET COUNT (test code = 288 K/UL 1015) ABSOLUTE NEUTROPHILS (test code 4.86 K/UL = 1066) ABSOLUTE LYMPHOCYTES (test code 0.89 K/UL = 1067) ABSOLUTE MONOCYTES (test code = 0.23 K/UL 1068) ABSOLUTE EOSINOPHILS (test code 0.07 K/UL = 1040) ABSOLUTE BASOPHILS (test code = 0.02 K/UL 1069) ABS IMMATURE GRANULOCYTES (test 0.03 K/UL code = 1020) ABS NUCLEATED RBCS (test code = 0.00 K/UL 54727) CBC W/AUTO [id number] 00:00:00 Test Item Value Reference Range Interpretation Comments WBC (test code = 1001) 6.1 K/UL RBC (test code = 1002) 4.39 M/UL HEMOGLOBIN (test code = 1003) 12.9 G/DL HEMATOCRIT (test code = 1004) 39.6 % MCV (test code = 1005) 90.2 fL MCH (test code = 1006) 29.4 PG MCHC (test code = 1007) 32.6 G/DL RDW (test code = 1038) 13.0 % NEUTROPHILS (test code = 1008) 79.7 % LYMPHOCYTES (test code = 1010) 14.6 % MONOCYTES (test code = 1011) 3.8 % EOSINOPHILS (test code = 1012) 1.1 % BASOPHILS (test code = 1013) 0.3 % IMMATURE GRANULOCYTES (test 0.5 % code = 1036) NUCLEATED RBCS (test code = 0.0 /100WBC'S 1065) PLATELET COUNT (test code = 288 K/UL 1015) ABSOLUTE NEUTROPHILS (test code 4.86 K/UL = 1066) ABSOLUTE LYMPHOCYTES (test code 0.89 K/UL = 1067) ABSOLUTE MONOCYTES (test code = 0.23 K/UL 1068) ABSOLUTE EOSINOPHILS (test code 0.07 K/UL = 1040) ABSOLUTE BASOPHILS (test code = 0.02 K/UL 1069) ABS IMMATURE GRANULOCYTES (test 0.03 K/UL code = 1020) ABS NUCLEATED RBCS (test code = 0.00 K/UL 05941) CBC W/AUTO [id number] 00:00:00 Test Item Value Reference Range Interpretation Comments WBC (test code = 1001) 6.1 K/UL RBC (test code = 1002) 4.39 M/UL HEMOGLOBIN (test code = 1003) 12.9 G/DL HEMATOCRIT (test code = 1004) 39.6 % MCV (test code = 1005) 90.2 fL MCH (test code = 1006) 29.4 PG MCHC (test code = 1007) 32.6 G/DL RDW (test code = 1038) 13.0 % NEUTROPHILS (test code = 1008) 79.7 % LYMPHOCYTES (test code = 1010) 14.6 % MONOCYTES (test code = 1011) 3.8 % EOSINOPHILS (test code = 1012) 1.1 % BASOPHILS (test code = 1013) 0.3 % IMMATURE GRANULOCYTES (test 0.5 % code = 1036) NUCLEATED RBCS (test code = 0.0 /100WBC'S 1065) PLATELET COUNT (test code = 288 K/UL 1015) ABSOLUTE NEUTROPHILS (test code 4.86 K/UL = 1066) ABSOLUTE LYMPHOCYTES (test code 0.89 K/UL = 1067) ABSOLUTE MONOCYTES (test code = 0.23 K/UL 1068) ABSOLUTE EOSINOPHILS (test code 0.07 K/UL = 1040) ABSOLUTE BASOPHILS (test code = 0.02 K/UL 1069) ABS IMMATURE GRANULOCYTES (test 0.03 K/UL code = 1020) ABS NUCLEATED RBCS (test code = 0.00 K/UL 31562) COMPREHENSIVE METABOLIC [id number] 00:00:00 Test Item Value Reference Range Interpretation Comments GLUCOSE (test code = 2217) 105 MG/DL BUN (test code = 2208) 12 MG/DL CREATININE (test code = 2214) 0.70 MG/DL eGFR (2020 CKD-EPI) (test 111 ML/MIN/1.73 code = 01565) CALC BUN/CREAT (test code = 17 RATIO 2235) SODIUM (test code = 2231) 138 MEQ/L POTASSIUM (test code = 2228) 4.1 MEQ/L CHLORIDE (test code = 2215) 102 MEQ/L CARBON DIOXIDE (test code = 24 MEQ/L 2205) CALCIUM (test code = 2209) 9.9 MG/DL PROTEIN, TOTAL (test code = 7.3 G/DL 2228) ALBUMIN (test code = 2201) 4.8 G/DL CALC GLOBULIN (test code = 2.5 G/DL 2240) CALC A/G RATIO (test code = 1.9 RATIO 2234) BILIRUBIN, TOTAL (test code = 0.7 MG/DL 2206) ALKALINE PHOSPHATASE (test 71 U/L code = 2204) AST (test code = 2218) 11 U/L ALT (test code = 2219) 17 U/L COMPREHENSIVE METABOLIC [id number] 00:00:00 Test Item Value Reference Range Interpretation Comments GLUCOSE (test code = 2217) 105 MG/DL BUN (test code = 2208) 12 MG/DL CREATININE (test code = 2214) 0.70 MG/DL eGFR (2020 CKD-EPI) (test 111 ML/MIN/1.73 code = 98011) CALC BUN/CREAT (test code = 17 RATIO 2235) SODIUM (test code = 2231) 138 MEQ/L POTASSIUM (test code = 2228) 4.1 MEQ/L CHLORIDE (test code = 2215) 102 MEQ/L CARBON DIOXIDE (test code = 24 MEQ/L 2205) CALCIUM (test code = 2209) 9.9 MG/DL PROTEIN, TOTAL (test code = 7.3 G/DL 2228) ALBUMIN (test code = 2201) 4.8 G/DL CALC GLOBULIN (test code = 2.5 G/DL 2240) CALC A/G RATIO (test code = 1.9 RATIO 2234) BILIRUBIN, TOTAL (test code = 0.7 MG/DL 2206) ALKALINE PHOSPHATASE (test 71 U/L code = 2204) AST (test code = 2218) 11 U/L ALT (test code = 2219) 17 U/L LIPID [id number] 00:00:00 Test Item Value Reference Range Interpretation Comments CHOLESTEROL (test code = 2210) 249 MG/DL TRIGLYCERIDES (test code = 2232) 97 MG/DL HDL CHOLESTEROL (test code = 2220) 70 MG/DL CALC LDL CHOL (test code = 2237) 158 MG/DL RISK RATIO LDL/HDL (test code = 2.26 RATIO 2238) LIPID [id number] 00:00:00 Test Item Value Reference Range Interpretation Comments CHOLESTEROL (test code = 2210) 249 MG/DL TRIGLYCERIDES (test code = 2232) 97 MG/DL HDL CHOLESTEROL (test code = 2220) 70 MG/DL CALC LDL CHOL (test code = 2237) 158 MG/DL RISK RATIO LDL/HDL (test code = 2.26 RATIO 2238) HEMOGLOBIN [id number] 00:00:00 Test Item Value Reference Range Interpretation Comments HEMOGLOBIN A1c (test code = 10653) 5.6 % HEMOGLOBIN [id number] 00:00:00 Test Item Value Reference Range Interpretation Comments HEMOGLOBIN A1c (test code = 27325) 5.6 % HEMOGLOBIN [id number] 00:00:00 Test Item Value Reference Range Interpretation Comments HEMOGLOBIN A1c (test code = 97153) 5.6 % TSH, THIRD [id number] 00:00:00 Test Item Value Reference Range Interpretation Comments TSH, THIRD GENERATION (test code 0.937 UIU/ML = 2821) TSH, THIRD [id number] 00:00:00 Test Item Value Reference Range Interpretation Comments TSH, THIRD GENERATION (test code 0.937 UIU/ML = 2821) TSH, THIRD [id number] 00:00:00 Test Item Value Reference Range Interpretation Comments TSH, THIRD GENERATION (test code 0.937 UIU/ML = 2821) CBC W/AUTO [id number] 00:00:00 Test Item Value Reference Range Interpretation Comments WBC (test code = 1001) 6.1 K/UL RBC (test code = 1002) 4.39 M/UL HEMOGLOBIN (test code = 1003) 12.9 G/DL HEMATOCRIT (test code = 1004) 39.6 % MCV (test code = 1005) 90.2 fL MCH (test code = 1006) 29.4 PG MCHC (test code = 1007) 32.6 G/DL RDW (test code = 1038) 13.0 % NEUTROPHILS (test code = 1008) 79.7 % LYMPHOCYTES (test code = 1010) 14.6 % MONOCYTES (test code = 1011) 3.8 % EOSINOPHILS (test code = 1012) 1.1 % BASOPHILS (test code = 1013) 0.3 % IMMATURE GRANULOCYTES (test 0.5 % code = 1036) NUCLEATED RBCS (test code = 0.0 /100WBC'S 1065) PLATELET COUNT (test code = 288 K/UL 1015) ABSOLUTE NEUTROPHILS (test code 4.86 K/UL = 1066) ABSOLUTE LYMPHOCYTES (test code 0.89 K/UL = 1067) ABSOLUTE MONOCYTES (test code = 0.23 K/UL 1068) ABSOLUTE EOSINOPHILS (test code 0.07 K/UL = 1040) ABSOLUTE BASOPHILS (test code = 0.02 K/UL 1069) ABS IMMATURE GRANULOCYTES (test 0.03 K/UL code = 1020) ABS NUCLEATED RBCS (test code = 0.00 K/UL 62762) CBC W/AUTO [id number] 00:00:00 Test Item Value Reference Range Interpretation Comments WBC (test code = 1001) 6.1 K/UL RBC (test code = 1002) 4.39 M/UL HEMOGLOBIN (test code = 1003) 12.9 G/DL HEMATOCRIT (test code = 1004) 39.6 % MCV (test code = 1005) 90.2 fL MCH (test code = 1006) 29.4 PG MCHC (test code = 1007) 32.6 G/DL RDW (test code = 1038) 13.0 % NEUTROPHILS (test code = 1008) 79.7 % LYMPHOCYTES (test code = 1010) 14.6 % MONOCYTES (test code = 1011) 3.8 % EOSINOPHILS (test code = 1012) 1.1 % BASOPHILS (test code = 1013) 0.3 % IMMATURE GRANULOCYTES (test 0.5 % code = 1036) NUCLEATED RBCS (test code = 0.0 /100WBC'S 1065) PLATELET COUNT (test code = 288 K/UL 1015) ABSOLUTE NEUTROPHILS (test code 4.86 K/UL = 1066) ABSOLUTE LYMPHOCYTES (test code 0.89 K/UL = 1067) ABSOLUTE MONOCYTES (test code = 0.23 K/UL 1068) ABSOLUTE EOSINOPHILS (test code 0.07 K/UL = 1040) ABSOLUTE BASOPHILS (test code = 0.02 K/UL 1069) ABS IMMATURE GRANULOCYTES (test 0.03 K/UL code = 1020) ABS NUCLEATED RBCS (test code = 0.00 K/UL 78911) CBC W/AUTO [id number] 00:00:00 Test Item Value Reference Range Interpretation Comments WBC (test code = 1001) 6.1 K/UL RBC (test code = 1002) 4.39 M/UL HEMOGLOBIN (test code = 1003) 12.9 G/DL HEMATOCRIT (test code = 1004) 39.6 % MCV (test code = 1005) 90.2 fL MCH (test code = 1006) 29.4 PG MCHC (test code = 1007) 32.6 G/DL RDW (test code = 1038) 13.0 % NEUTROPHILS (test code = 1008) 79.7 % LYMPHOCYTES (test code = 1010) 14.6 % MONOCYTES (test code = 1011) 3.8 % EOSINOPHILS (test code = 1012) 1.1 % BASOPHILS (test code = 1013) 0.3 % IMMATURE GRANULOCYTES (test 0.5 % code = 1036) NUCLEATED RBCS (test code = 0.0 /100WBC'S 1065) PLATELET COUNT (test code = 288 K/UL 1015) ABSOLUTE NEUTROPHILS (test code 4.86 K/UL = 1066) ABSOLUTE LYMPHOCYTES (test code 0.89 K/UL = 1067) ABSOLUTE MONOCYTES (test code = 0.23 K/UL 1068) ABSOLUTE EOSINOPHILS (test code 0.07 K/UL = 1040) ABSOLUTE BASOPHILS (test code = 0.02 K/UL 1069) ABS IMMATURE GRANULOCYTES (test 0.03 K/UL code = 1020) ABS NUCLEATED RBCS (test code = 0.00 K/UL 45590) COMPREHENSIVE METABOLIC [id number] 00:00:00 Test Item Value Reference Range Interpretation Comments GLUCOSE (test code = 2217) 105 MG/DL BUN (test code = 2208) 12 MG/DL CREATININE (test code = 2214) 0.70 MG/DL eGFR (2020 CKD-EPI) (test 111 ML/MIN/1.73 code = 58488) CALC BUN/CREAT (test code = 17 RATIO 2235) SODIUM (test code = 2231) 138 MEQ/L POTASSIUM (test code = 2228) 4.1 MEQ/L CHLORIDE (test code = 2215) 102 MEQ/L CARBON DIOXIDE (test code = 24 MEQ/L 220) CALCIUM (test code = 2209) 9.9 MG/DL PROTEIN, TOTAL (test code = 7.3 G/DL 2228) ALBUMIN (test code = 2201) 4.8 G/DL CALC GLOBULIN (test code = 2.5 G/DL 2240) CALC A/G RATIO (test code = 1.9 RATIO 2234) BILIRUBIN, TOTAL (test code = 0.7 MG/DL 2206) ALKALINE PHOSPHATASE (test 71 U/L code = 2204) AST (test code = 2218) 11 U/L ALT (test code = 2219) 17 U/L COMPREHENSIVE METABOLIC [id number] 00:00:00 Test Item Value Reference Range Interpretation Comments GLUCOSE (test code = 2217) 105 MG/DL BUN (test code = 2208) 12 MG/DL CREATININE (test code = 2214) 0.70 MG/DL eGFR (2020 CKD-EPI) (test 111 ML/MIN/1.73 code = 81277) CALC BUN/CREAT (test code = 17 RATIO 2235) SODIUM (test code = 2231) 138 MEQ/L POTASSIUM (test code = 2228) 4.1 MEQ/L CHLORIDE (test code = 2215) 102 MEQ/L CARBON DIOXIDE (test code = 24 MEQ/L 220) CALCIUM (test code = 2209) 9.9 MG/DL PROTEIN, TOTAL (test code = 7.3 G/DL 2228) ALBUMIN (test code = 2201) 4.8 G/DL CALC GLOBULIN (test code = 2.5 G/DL 0) CALC A/G RATIO (test code = 1.9 RATIO 2234) BILIRUBIN, TOTAL (test code = 0.7 MG/DL 2206) ALKALINE PHOSPHATASE (test 71 U/L code = 2204) AST (test code = 2218) 11 U/L ALT (test code = 2219) 17 U/L LIPID [id number] 00:00:00 Test Item Value Reference Range Interpretation Comments CHOLESTEROL (test code = 2210) 249 MG/DL TRIGLYCERIDES (test code = 2232) 97 MG/DL HDL CHOLESTEROL (test code = 2220) 70 MG/DL CALC LDL CHOL (test code = 2237) 158 MG/DL RISK RATIO LDL/HDL (test code = 2.26 RATIO 2238) CULTURE, [id number] 09:57:25SPECIMEN NUMBER: [id number] CULTURE, URINE SPECIMEN NUMBER: [id number] SPECIMEN COMMENT: URINE SOURCE:URINE REPORT STATUS: FINAL FINAL REPORT: 06/15/2022 10-50,000 CFU/ML UROGENITAL OLEKSANDR PRESENT NO COMM ON PATHOGENS UNLESS OTHERWISE INDICATED, ALL TEST[facility] [address] [address] CLINICAL INTERVIEWER: ODILON SUMMERS M.D. [place] NUMBER [id number] [place]. [id number] CULTURE, [id number] 00:00:00 Test Item Value Reference Range Interpretation Comments CULTURE, URINE (test SPECIMEN NUMBER: code = 95852) [id number] CULTURE, [id number] 00:00:00 Test Item Value Reference Range Interpretation Comments CULTURE, URINE (test SPECIMEN NUMBER: code = 75413) [id number] CULTURE, [id number] 00:00:00 Test Item Value Reference Range Interpretation Comments CULTURE, URINE (test SPECIMEN NUMBER: code = 37359) [id number] CULTURE, [id number] 00:00:00 Test Item Value Reference Range Interpretation Comments CULTURE, URINE (test SPECIMEN NUMBER: code = 92933) [id number] CULTURE, [id number] 00:00:00 Test Item Value Reference Range Interpretation Comments CULTURE, URINE (test SPECIMEN NUMBER: code = 01248) [id number] CULTURE, [id number] 00:00:00 Test Item Value Reference Range Interpretation Comments CULTURE, URINE (test SPECIMEN NUMBER: code = 14335) [id number] CULTURE, [id number] 00:00:00 Test Item Value Reference Range Interpretation Comments CULTURE, URINE (test SPECIMEN NUMBER: code = 68209) [id number] CULTURE, [id number] 00:00:00 Test Item Value Reference Range Interpretation Comments CULTURE, URINE (test SPECIMEN NUMBER: code = 71086) [id number] CULTURE, [id number] 00:00:00 Test Item Value Reference Range Interpretation Comments CULTURE, URINE (test SPECIMEN NUMBER: code = 56373) [id number] CULTURE, [id number] 00:00:00 Test Item Value Reference Range Interpretation Comments CULTURE, URINE (test SPECIMEN NUMBER: code = 05632) [id number] CULTURE, [id number] 00:00:00 Test Item Value Reference Range Interpretation Comments CULTURE, URINE (test SPECIMEN NUMBER: code = 46761) [id number] CULTURE, [id number] 00:00:00 Test Item Value Reference Range Interpretation Comments CULTURE, URINE (test SPECIMEN NUMBER: code = 56614) [id number] VAGINAL PATHOGENS DNA [id number] 08:25:39 Test Item Value Reference Range Interpretation Comments ABHAY SPECIES (test NEGATIVE NEGATIVE code = ) G. VAGINALIS (test POSITIVE NEGATIVE A code = 53599) T. VAGINALIS (test NEGATIVE NEGATIVE Analysis performed code = 96519) [facility] turer designated stab ility. Correlate with clinical history and con bath solution maker retesting as cl inically indicated. Resu lts reviewed by the Microbiology de partment for accuracy pr ior to reporting. VAGINAL PATHOGENS DNA [id number] 00:00:00 Test Item Value Reference Range Interpretation Comments ABHAY SPECIES (test code = 94591) NEGATIVE G. VAGINALIS (test code = 82419) POSITIVE T. VAGINALIS (test code = 67551) NEGATIVE VAGINAL PATHOGENS DNA [id number] 00:00:00 Test Item Value Reference Range Interpretation Comments ABHAY SPECIES (test code = 61591) NEGATIVE G. VAGINALIS (test code = 66574) POSITIVE T. VAGINALIS (test code = 24926) NEGATIVE VAGINAL PATHOGENS DNA [id number] 00:00:00 Test Item Value Reference Range Interpretation Comments ABHAY SPECIES (test code = 70396) NEGATIVE G. VAGINALIS (test code = 22303) POSITIVE T. VAGINALIS (test code = 96191) NEGATIVE VAGINAL PATHOGENS DNA [id number] 00:00:00 Test Item Value Reference Range Interpretation Comments ABHAY SPECIES (test code = 73098) NEGATIVE G. VAGINALIS (test code = 83933) POSITIVE T. VAGINALIS (test code = 46884) NEGATIVE VAGINAL PATHOGENS DNA [id number] 00:00:00 Test Item Value Reference Range Interpretation Comments ABHAY SPECIES (test code = 76567) NEGATIVE G. VAGINALIS (test code = 82575) POSITIVE T. VAGINALIS (test code = 98655) NEGATIVE VAGINAL PATHOGENS DNA [id number] 00:00:00 Test Item Value Reference Range Interpretation Comments ABHAY SPECIES (test code = 47326) NEGATIVE G. VAGINALIS (test code = 81730) POSITIVE T. VAGINALIS (test code = 40826) NEGATIVE VAGINAL PATHOGENS DNA [id number] 00:00:00 Test Item Value Reference Range Interpretation Comments ABHAY SPECIES (test code = 97096) NEGATIVE G. VAGINALIS (test code = 55901) POSITIVE T. VAGINALIS (test code = 35437) NEGATIVE VAGINAL PATHOGENS DNA [id number] 00:00:00 Test Item Value Reference Range Interpretation Comments ABHAY SPECIES (test code = 31943) NEGATIVE G. VAGINALIS (test code = 34479) POSITIVE T. VAGINALIS (test code = 83391) NEGATIVE VAGINAL PATHOGENS DNA [id number] 00:00:00 Test Item Value Reference Range Interpretation Comments ABHAY SPECIES (test code = 43231) NEGATIVE G. VAGINALIS (test code = 32867) POSITIVE T. VAGINALIS (test code = 74009) NEGATIVE VAGINAL PATHOGENS DNA [id number] 00:00:00 Test Item Value Reference Range Interpretation Comments ABHAY SPECIES (test code = 43863) NEGATIVE G. VAGINALIS (test code = 67556) POSITIVE T. VAGINALIS (test code = 73062) NEGATIVE VAGINAL PATHOGENS DNA [id number] 00:00:00 Test Item Value Reference Range Interpretation Comments ABHAY SPECIES (test code = 18434) NEGATIVE G. VAGINALIS (test code = 25989) POSITIVE T. VAGINALIS (test code = ) NEGATIVE VAGINAL PATHOGENS DNA [id number] 00:00:00 Test Item Value Reference Range Interpretation Comments ABHAY SPECIES (test code = 18783) NEGATIVE G. VAGINALIS (test code = 03773) POSITIVE T. VAGINALIS (test code = 36197) NEGATIVE VAGINAL PATHOGENS DNA [id number] 00:00:00 Test Item Value Reference Range Interpretation Comments ABHAY SPECIES (test code = 42990) NEGATIVE G. VAGINALIS (test code = 36510) POSITIVE T. VAGINALIS (test code = 45097) NEGATIVE VAGINAL PATHOGENS DNA [id number] 00:00:00 Test Item Value Reference Range Interpretation Comments ABHAY SPECIES (test code = 07713) NEGATIVE G. VAGINALIS (test code = 20668) POSITIVE T. VAGINALIS (test code = 21928) NEGATIVE VAGINAL PATHOGENS DNA [id number] 00:00:00 Test Item Value Reference Range Interpretation Comments ABHAY SPECIES (test code = 31984) NEGATIVE G. VAGINALIS (test code = 56769) POSITIVE T. VAGINALIS (test code = 80836) NEGATIVE VAGINAL PATHOGENS DNA [id number] 00:00:00 Test Item Value Reference Range Interpretation Comments ABHAY SPECIES (test code = 35140) NEGATIVE G. VAGINALIS (test code = 59255) POSITIVE T. VAGINALIS (test code = 56609) NEGATIVE VAGINAL PATHOGENS DNA [id number] 00:00:00 Test Item Value Reference Range Interpretation Comments ABHAY SPECIES (test code = 72763) NEGATIVE G. VAGINALIS (test code = 50708) POSITIVE T. VAGINALIS (test code = 25098) NEGATIVE VAGINAL PATHOGENS DNA [id number] 00:00:00 Test Item Value Reference Range Interpretation Comments ABHAY SPECIES (test code = 06491) NEGATIVE G. VAGINALIS (test code = 96158) POSITIVE T. VAGINALIS (test code = 20362) NEGATIVE VAGINAL PATHOGENS DNA [id number] 00:00:00 Test Item Value Reference Range Interpretation Comments ABHAY SPECIES (test code = 05765) NEGATIVE G. VAGINALIS (test code = 64520) POSITIVE T. VAGINALIS (test code = 69130) NEGATIVE HIV 1/2 4TH GEN, RFLX [id number] 00:02:34 Test Item Value Reference Range Interpretation Comments HIV 1/2 4TH GEN, RFLX CONF (test NON-REACTIVE NON-REACTIVE code = 3514) HEPATITIS PANEL, [id number] 00:02:34 Test Item Value Reference Range Interpretation Comments HEPATITIS A TOTAL AB NON-REACTIVE NON-REACTIVE (test code = 2725) HEPATITIS B SURF AG NON-REACTIVE NON-REACTIVE (test code = 2739) HEP B CORE TOTAL AB NON-REACTIVE NON-REACTIVE (test code = 2729) HEPATITIS B SURFACE REACTIVE NON-REACTIVE A AB (test code = 2737) HEPATITIS C ANTIBODY NON-REACTIVE NON-REACTIVE (test code = 4675) INTERPRETATION (NOTE) Hepatitis A HEPATITIS A: (test serology shows no code = 2552) evidence of pas t exposure to orcurrent infec tion with hepatitis A virus; patient not immune tohepati tis A. INTERPRETATION (NOTE) Hepatitis B HEPATITIS B: (test serology consistent code = 88371) with immunity to hepatitis Bfrom previous hepati tis B vaccination. INTERPRETATION (NOTE) Hepatitis C HEPATITIS C: (test serology shows no code = 20032) evidence of ex posure to hepatitisC v irus at this time. I t can take up to 12 m onths after exposure tothe hepatitis C vir us for antibodies to become detectab le in the blood in ce rtain patients. UNLES S OTHERWISE INDIC ATED, ALL TESTING PERFORMED [facility], [facility]. [address] [place] [id number] [place] [address] DIRECTOR: ODILON SUMMERS M.D. CLIA NUMBER [id number] [facility] [id number] HEPATITIS PROFILE (A,B,C)2022-03-22 00:00:00 Test Item Value Reference Range Interpretation Comments HEPATITIS A TOTAL AB (test code NON-REACTIVE = 2725) HEPATITIS B SURF AG (test code = NON-REACTIVE 2739) HEP B CORE TOTAL AB (test code = NON-REACTIVE 2729) HEPATITIS B SURFACE AB (test REACTIVE code = 2737) HEPATITIS C ANTIBODY (test code NON-REACTIVE = 4675) INTERPRETATION HEPATITIS A: (NOTE) (test code = 2552) INTERPRETATION HEPATITIS B: (NOTE) (test code = 07142) INTERPRETATION HEPATITIS C: (NOTE) (test code = 72630) HEPATITIS PROFILE (A,B,C)2022-03-22 00:00:00 Test Item Value Reference Range Interpretation Comments HEPATITIS A TOTAL AB (test code NON-REACTIVE = 2725) HEPATITIS B SURF AG (test code = NON-REACTIVE 2739) HEP B CORE TOTAL AB (test code = NON-REACTIVE 2729) HEPATITIS B SURFACE AB (test REACTIVE code = 2737) HEPATITIS C ANTIBODY (test code NON-REACTIVE = 4675) INTERPRETATION HEPATITIS A: (NOTE) (test code = 2552) INTERPRETATION HEPATITIS B: (NOTE) (test code = 18581) INTERPRETATION HEPATITIS C: (NOTE) (test code = 35465) HIV 1/2 4TH GEN, RFLX CONF [ADDED]2022-03-22 00:00:00 Test Item Value Reference Range Interpretation Comments HIV 1/2 4TH GEN, RFLX CONF (test NON-REACTIVE code = 3514) HIV 1/2 4TH GEN, RFLX CONF [ADDED]2022-03-22 00:00:00 Test Item Value Reference Range Interpretation Comments HIV 1/2 4TH GEN, RFLX CONF (test NON-REACTIVE code = 3514) HEPATITIS PROFILE (A,B,C)2022-03-22 00:00:00 Test Item Value Reference Range Interpretation Comments HEPATITIS A TOTAL AB (test code NON-REACTIVE = 2725) HEPATITIS B SURF AG (test code = NON-REACTIVE 2739) HEP B CORE TOTAL AB (test code = NON-REACTIVE 2729) HEPATITIS B SURFACE AB (test REACTIVE code = 2737) HEPATITIS C ANTIBODY (test code NON-REACTIVE = 4675) INTERPRETATION HEPATITIS A: (NOTE) (test code = 2552) INTERPRETATION HEPATITIS B: (NOTE) (test code = 49233) INTERPRETATION HEPATITIS C: (NOTE) (test code = 64666) HEPATITIS PROFILE (A,B,C)2022-03-22 00:00:00 Test Item Value Reference Range Interpretation Comments HEPATITIS A TOTAL AB (test code NON-REACTIVE = 2725) HEPATITIS B SURF AG (test code = NON-REACTIVE 2739) HEP B CORE TOTAL AB (test code = NON-REACTIVE 2729) HEPATITIS B SURFACE AB (test REACTIVE code = 2737) HEPATITIS C ANTIBODY (test code NON-REACTIVE = 4675) INTERPRETATION HEPATITIS A: (NOTE) (test code = 2552) INTERPRETATION HEPATITIS B: (NOTE) (test code = 06729) INTERPRETATION HEPATITIS C: (NOTE) (test code = 04441) HIV 1/2 4TH GEN, RFLX CONF [ADDED]2022-03-22 00:00:00 Test Item Value Reference Range Interpretation Comments HIV 1/2 4TH GEN, RFLX CONF (test NON-REACTIVE code = 3514) HIV 1/2 4TH GEN, RFLX CONF [ADDED]2022-03-22 00:00:00 Test Item Value Reference Range Interpretation Comments HIV 1/2 4TH GEN, RFLX CONF (test NON-REACTIVE code = 3514) HEPATITIS PROFILE (A,B,C)2022-03-22 00:00:00 Test Item Value Reference Range Interpretation Comments HEPATITIS A TOTAL AB (test code NON-REACTIVE = 2725) HEPATITIS B SURF AG (test code = NON-REACTIVE 2739) HEP B CORE TOTAL AB (test code = NON-REACTIVE 2729) HEPATITIS B SURFACE AB (test REACTIVE code = 2737) HEPATITIS C ANTIBODY (test code NON-REACTIVE = 4675) INTERPRETATION HEPATITIS A: (NOTE) (test code = 2552) INTERPRETATION HEPATITIS B: (NOTE) (test code = 15653) INTERPRETATION HEPATITIS C: (NOTE) (test code = 02180) HEPATITIS PROFILE (A,B,C)2022-03-22 00:00:00 Test Item Value Reference Range Interpretation Comments HEPATITIS A TOTAL AB (test code NON-REACTIVE = 2725) HEPATITIS B SURF AG (test code = NON-REACTIVE 2739) HEP B CORE TOTAL AB (test code = NON-REACTIVE 2729) HEPATITIS B SURFACE AB (test REACTIVE code = 2737) HEPATITIS C ANTIBODY (test code NON-REACTIVE = 4675) INTERPRETATION HEPATITIS A: (NOTE) (test code = 2552) INTERPRETATION HEPATITIS B: (NOTE) (test code = 21338) INTERPRETATION HEPATITIS C: (NOTE) (test code = 79827) HIV 1/2 4TH GEN, RFLX CONF [ADDED]2022-03-22 00:00:00 Test Item Value Reference Range Interpretation Comments HIV 1/2 4TH GEN, RFLX CONF (test NON-REACTIVE code = 3514) HIV 1/2 4TH GEN, RFLX CONF [ADDED]2022-03-22 00:00:00 Test Item Value Reference Range Interpretation Comments HIV 1/2 4TH GEN, RFLX CONF (test NON-REACTIVE code = 3514) HEPATITIS PROFILE (A,B,C)2022-03-22 00:00:00 Test Item Value Reference Range Interpretation Comments HEPATITIS A TOTAL AB (test code NON-REACTIVE = 2725) HEPATITIS B SURF AG (test code = NON-REACTIVE 2739) HEP B CORE TOTAL AB (test code = NON-REACTIVE 2729) HEPATITIS B SURFACE AB (test REACTIVE code = 2737) HEPATITIS C ANTIBODY (test code NON-REACTIVE = 4675) INTERPRETATION HEPATITIS A: (NOTE) (test code = 2552) INTERPRETATION HEPATITIS B: (NOTE) (test code = 27806) INTERPRETATION HEPATITIS C: (NOTE) (test code = 36195) HEPATITIS PROFILE (A,B,C)2022-03-22 00:00:00 Test Item Value Reference Range Interpretation Comments HEPATITIS A TOTAL AB (test code NON-REACTIVE = 2725) HEPATITIS B SURF AG (test code = NON-REACTIVE 2739) HEP B CORE TOTAL AB (test code = NON-REACTIVE 2729) HEPATITIS B SURFACE AB (test REACTIVE code = 2737) HEPATITIS C ANTIBODY (test code NON-REACTIVE = 4675) INTERPRETATION HEPATITIS A: (NOTE) (test code = 2552) INTERPRETATION HEPATITIS B: (NOTE) (test code = 15586) INTERPRETATION HEPATITIS C: (NOTE) (test code = 50395) HIV 1/2 4TH GEN, RFLX CONF [ADDED]2022-03-22 00:00:00 Test Item Value Reference Range Interpretation Comments HIV 1/2 4TH GEN, RFLX CONF (test NON-REACTIVE code = 3514) HIV 1/2 4TH GEN, RFLX CONF [ADDED]2022-03-22 00:00:00 Test Item Value Reference Range Interpretation Comments HIV 1/2 4TH GEN, RFLX CONF (test NON-REACTIVE code = 3514) HEPATITIS PROFILE (A,B,C)2022-03-22 00:00:00 Test Item Value Reference Range Interpretation Comments HEPATITIS A TOTAL AB (test code NON-REACTIVE = 2725) HEPATITIS B SURF AG (test code = NON-REACTIVE 2739) HEP B CORE TOTAL AB (test code = NON-REACTIVE 2729) HEPATITIS B SURFACE AB (test REACTIVE code = 2737) HEPATITIS C ANTIBODY (test code NON-REACTIVE = 4675) INTERPRETATION HEPATITIS A: (NOTE) (test code = 2552) INTERPRETATION HEPATITIS B: (NOTE) (test code = 78038) INTERPRETATION HEPATITIS C: (NOTE) (test code = 81890) HEPATITIS PROFILE (A,B,C)2022-03-22 00:00:00 Test Item Value Reference Range Interpretation Comments HEPATITIS A TOTAL AB (test code NON-REACTIVE = 2725) HEPATITIS B SURF AG (test code = NON-REACTIVE 2739) HEP B CORE TOTAL AB (test code = NON-REACTIVE 2729) HEPATITIS B SURFACE AB (test REACTIVE code = 2737) HEPATITIS C ANTIBODY (test code NON-REACTIVE = 4675) INTERPRETATION HEPATITIS A: (NOTE) (test code = 2552) INTERPRETATION HEPATITIS B: (NOTE) (test code = 04007) INTERPRETATION HEPATITIS C: (NOTE) (test code = 05422) HIV 1/2 4TH GEN, RFLX CONF [ADDED]2022-03-22 00:00:00 Test Item Value Reference Range Interpretation Comments HIV 1/2 4TH GEN, RFLX CONF (test NON-REACTIVE code = 3514) HIV 1/2 4TH GEN, RFLX CONF [ADDED]2022-03-22 00:00:00 Test Item Value Reference Range Interpretation Comments HIV 1/2 4TH GEN, RFLX CONF (test NON-REACTIVE code = 3514) HEPATITIS PROFILE (A,B,C)2022-03-22 00:00:00 Test Item Value Reference Range Interpretation Comments HEPATITIS A TOTAL AB (test code NON-REACTIVE = 2725) HEPATITIS B SURF AG (test code = NON-REACTIVE 2739) HEP B CORE TOTAL AB (test code = NON-REACTIVE 2729) HEPATITIS B SURFACE AB (test REACTIVE code = 2737) HEPATITIS C ANTIBODY (test code NON-REACTIVE = 4675) INTERPRETATION HEPATITIS A: (NOTE) (test code = 2552) INTERPRETATION HEPATITIS B: (NOTE) (test code = 12239) INTERPRETATION HEPATITIS C: (NOTE) (test code = 39049) HEPATITIS PROFILE (A,B,C)2022-03-22 00:00:00 Test Item Value Reference Range Interpretation Comments HEPATITIS A TOTAL AB (test code NON-REACTIVE = 2725) HEPATITIS B SURF AG (test code = NON-REACTIVE 2739) HEP B CORE TOTAL AB (test code = NON-REACTIVE 2729) HEPATITIS B SURFACE AB (test REACTIVE code = 2737) HEPATITIS C ANTIBODY (test code NON-REACTIVE = 4675) INTERPRETATION HEPATITIS A: (NOTE) (test code = 2552) INTERPRETATION HEPATITIS B: (NOTE) (test code = 48536) INTERPRETATION HEPATITIS C: (NOTE) (test code = 80401) HIV 1/2 4TH GEN, RFLX CONF [ADDED]2022-03-22 00:00:00 Test Item Value Reference Range Interpretation Comments HIV 1/2 4TH GEN, RFLX CONF (test NON-REACTIVE code = 3514) HIV 1/2 4TH GEN, RFLX CONF [ADDED]2022-03-22 00:00:00 Test Item Value Reference Range Interpretation Comments HIV 1/2 4TH GEN, RFLX CONF (test NON-REACTIVE code = 3514) HEPATITIS PROFILE (A,B,C)2022-03-22 00:00:00 Test Item Value Reference Range Interpretation Comments HEPATITIS A TOTAL AB (test code NON-REACTIVE = 2725) HEPATITIS B SURF AG (test code = NON-REACTIVE 2739) HEP B CORE TOTAL AB (test code = NON-REACTIVE 2729) HEPATITIS B SURFACE AB (test REACTIVE code = 2737) HEPATITIS C ANTIBODY (test code NON-REACTIVE = 4675) INTERPRETATION HEPATITIS A: (NOTE) (test code = 2552) INTERPRETATION HEPATITIS B: (NOTE) (test code = 64606) INTERPRETATION HEPATITIS C: (NOTE) (test code = 63177) HEPATITIS PROFILE (A,B,C)2022-03-22 00:00:00 Test Item Value Reference Range Interpretation Comments HEPATITIS A TOTAL AB (test code NON-REACTIVE = 2725) HEPATITIS B SURF AG (test code = NON-REACTIVE 2739) HEP B CORE TOTAL AB (test code = NON-REACTIVE 2729) HEPATITIS B SURFACE AB (test REACTIVE code = 2737) HEPATITIS C ANTIBODY (test code NON-REACTIVE = 4675) INTERPRETATION HEPATITIS A: (NOTE) (test code = 2552) INTERPRETATION HEPATITIS B: (NOTE) (test code = 50793) INTERPRETATION HEPATITIS C: (NOTE) (test code = 32401) HIV 1/2 4TH GEN, RFLX CONF [ADDED]2022-03-22 00:00:00 Test Item Value Reference Range Interpretation Comments HIV 1/2 4TH GEN, RFLX CONF (test NON-REACTIVE code = 3514) HIV 1/2 4TH GEN, RFLX CONF [ADDED]2022-03-22 00:00:00 Test Item Value Reference Range Interpretation Comments HIV 1/2 4TH GEN, RFLX CONF (test NON-REACTIVE code = 3514) HEPATITIS PROFILE (A,B,C)2022-03-22 00:00:00 Test Item Value Reference Range Interpretation Comments HEPATITIS A TOTAL AB (test code NON-REACTIVE = 2725) HEPATITIS B SURF AG (test code = NON-REACTIVE 2739) HEP B CORE TOTAL AB (test code = NON-REACTIVE 2729) HEPATITIS B SURFACE AB (test REACTIVE code = 2737) HEPATITIS C ANTIBODY (test code NON-REACTIVE = 4675) INTERPRETATION HEPATITIS A: (NOTE) (test code = 2552) INTERPRETATION HEPATITIS B: (NOTE) (test code = 74417) INTERPRETATION HEPATITIS C: (NOTE) (test code = 96460) HIV 1/2 4TH GEN, RFLX CONF [ADDED]2022-03-22 00:00:00 Test Item Value Reference Range Interpretation Comments HIV 1/2 4TH GEN, RFLX CONF (test NON-REACTIVE code = 3514) HEPATITIS PROFILE (A,B,C)2022-03-22 00:00:00 Test Item Value Reference Range Interpretation Comments HEPATITIS A TOTAL AB (test code NON-REACTIVE = 2725) HEPATITIS B SURF AG (test code = NON-REACTIVE 2739) HEP B CORE TOTAL AB (test code = NON-REACTIVE 2729) HEPATITIS B SURFACE AB (test REACTIVE code = 2737) HEPATITIS C ANTIBODY (test code NON-REACTIVE = 4675) INTERPRETATION HEPATITIS A: (NOTE) (test code = 2552) INTERPRETATION HEPATITIS B: (NOTE) (test code = 83254) INTERPRETATION HEPATITIS C: (NOTE) (test code = 40048) HEPATITIS PROFILE (A,B,C)2022-03-22 00:00:00 Test Item Value Reference Range Interpretation Comments HEPATITIS A TOTAL AB (test code NON-REACTIVE = 2725) HEPATITIS B SURF AG (test code = NON-REACTIVE 2739) HEP B CORE TOTAL AB (test code = NON-REACTIVE 2729) HEPATITIS B SURFACE AB (test REACTIVE code = 2737) HEPATITIS C ANTIBODY (test code NON-REACTIVE = 4675) INTERPRETATION HEPATITIS A: (NOTE) (test code = 2552) INTERPRETATION HEPATITIS B: (NOTE) (test code = 70686) INTERPRETATION HEPATITIS C: (NOTE) (test code = 77436) HIV 1/2 4TH GEN, RFLX CONF [ADDED]2022-03-22 00:00:00 Test Item Value Reference Range Interpretation Comments HIV 1/2 4TH GEN, RFLX CONF (test NON-REACTIVE code = 3514) HIV 1/2 4TH GEN, RFLX CONF [ADDED]2022-03-22 00:00:00 Test Item Value Reference Range Interpretation Comments HIV 1/2 4TH GEN, RFLX CONF (test NON-REACTIVE code = 3514) HEPATITIS PROFILE (A,B,C)2022-03-22 00:00:00 Test Item Value Reference Range Interpretation Comments HEPATITIS A TOTAL AB (test code NON-REACTIVE = 2725) HEPATITIS B SURF AG (test code = NON-REACTIVE 2739) HEP B CORE TOTAL AB (test code = NON-REACTIVE 2729) HEPATITIS B SURFACE AB (test REACTIVE code = 2737) HEPATITIS C ANTIBODY (test code NON-REACTIVE = 4675) INTERPRETATION HEPATITIS A: (NOTE) (test code = 2552) INTERPRETATION HEPATITIS B: (NOTE) (test code = 89358) INTERPRETATION HEPATITIS C: (NOTE) (test code = 11300) HEPATITIS PROFILE (A,B,C)2022-03-22 00:00:00 Test Item Value Reference Range Interpretation Comments HEPATITIS A TOTAL AB (test code NON-REACTIVE = 2725) HEPATITIS B SURF AG (test code = NON-REACTIVE 2739) HEP B CORE TOTAL AB (test code = NON-REACTIVE 2729) HEPATITIS B SURFACE AB (test REACTIVE code = 2737) HEPATITIS C ANTIBODY (test code NON-REACTIVE = 4675) INTERPRETATION HEPATITIS A: (NOTE) (test code = 2552) INTERPRETATION HEPATITIS B: (NOTE) (test code = 30665) INTERPRETATION HEPATITIS C: (NOTE) (test code = 42895) HIV 1/2 4TH GEN, RFLX CONF [ADDED]2022-03-22 00:00:00 Test Item Value Reference Range Interpretation Comments HIV 1/2 4TH GEN, RFLX CONF (test NON-REACTIVE code = 3514) HIV 1/2 4TH GEN, RFLX CONF [ADDED]2022-03-22 00:00:00 Test Item Value Reference Range Interpretation Comments HIV 1/2 4TH GEN, RFLX CONF (test NON-REACTIVE code = 3514) [id number] 22:35:53 Test Item Value Reference Range Interpretation Comments RPR RESULT (test code = NON-REACTIVE NON-REACTIVE 3501) RPR TITER (test code = 3500) NOT INDIC. TITER NOT INDIC. [id number] 00:00:00 Test Item Value Reference Range Interpretation Comments RPR RESULT (test code = NON-REACTIVE 3501) RPR TITER (test code = 3500) NOT INDIC. TITER [id number] 00:00:00 Test Item Value Reference Range Interpretation Comments RPR RESULT (test code = NON-REACTIVE 3501) RPR TITER (test code = 3500) NOT INDIC. TITER [id number] 00:00:00 Test Item Value Reference Range Interpretation Comments RPR RESULT (test code = NON-REACTIVE 3501) RPR TITER (test code = 3500) NOT INDIC. TITER [id number] 00:00:00 Test Item Value Reference Range Interpretation Comments RPR RESULT (test code = NON-REACTIVE 3501) RPR TITER (test code = 3500) NOT INDIC. TITER [id number] 00:00:00 Test Item Value Reference Range Interpretation Comments RPR RESULT (test code = NON-REACTIVE 3501) RPR TITER (test code = 3500) NOT INDIC. TITER [id number] 00:00:00 Test Item Value Reference Range Interpretation Comments RPR RESULT (test code = NON-REACTIVE 3501) RPR TITER (test code = 3500) NOT INDIC. TITER [id number] 00:00:00 Test Item Value Reference Range Interpretation Comments RPR RESULT (test code = NON-REACTIVE 3501) RPR TITER (test code = 3500) NOT INDIC. TITER [id number] 00:00:00 Test Item Value Reference Range Interpretation Comments RPR RESULT (test code = NON-REACTIVE 3501) RPR TITER (test code = 3500) NOT INDIC. TITER [id number] 00:00:00 Test Item Value Reference Range Interpretation Comments RPR RESULT (test code = NON-REACTIVE 3501) RPR TITER (test code = 3500) NOT INDIC. TITER [id number] 00:00:00 Test Item Value Reference Range Interpretation Comments RPR RESULT (test code = NON-REACTIVE 3501) RPR TITER (test code = 3500) NOT INDIC. TITER [id number] 00:00:00 Test Item Value Reference Range Interpretation Comments RPR RESULT (test code = NON-REACTIVE 3501) RPR TITER (test code = 3500) NOT INDIC. TITER [id number] 00:00:00 Test Item Value Reference Range Interpretation Comments RPR RESULT (test code = NON-REACTIVE 3501) RPR TITER (test code = 3500) NOT INDIC. TITER [id number] 00:00:00 Test Item Value Reference Range Interpretation Comments RPR RESULT (test code = NON-REACTIVE 3501) RPR TITER (test code = 3500) NOT INDIC. TITER [id number] 00:00:00 Test Item Value Reference Range Interpretation Comments RPR RESULT (test code = NON-REACTIVE 3501) RPR TITER (test code = 3500) NOT INDIC. TITER [id number] 00:00:00 Test Item Value Reference Range Interpretation Comments RPR RESULT (test code = NON-REACTIVE 3501) RPR TITER (test code = 3500) NOT INDIC. TITER [id number] 00:00:00 Test Item Value Reference Range Interpretation Comments RPR RESULT (test code = NON-REACTIVE 3501) RPR TITER (test code = 3500) NOT INDIC. TITER [id number] 00:00:00 Test Item Value Reference Range Interpretation Comments RPR RESULT (test code = NON-REACTIVE 3501) RPR TITER (test code = 3500) NOT INDIC. TITER [id number] 00:00:00 Test Item Value Reference Range Interpretation Comments RPR RESULT (test code = NON-REACTIVE 3501) RPR TITER (test code = 3500) NOT INDIC. TITER [id number] 00:00:00 Test Item Value Reference Range Interpretation Comments RPR RESULT (test code = NON-REACTIVE 3501) RPR TITER (test code = 3500) NOT INDIC. TITER [id number] 00:00:00 Test Item Value Reference Range Interpretation Comments RPR RESULT (test code = NON-REACTIVE 3501) RPR TITER (test code = 3500) NOT INDIC. TITER [id number] 00:00:00 Test Item Value Reference Range Interpretation Comments RPR RESULT (test code = NON-REACTIVE 3501) RPR TITER (test code = 3500) NOT INDIC. TITER [id number] 00:00:00 Test Item Value Reference Range Interpretation Comments RPR RESULT (test code = NON-REACTIVE 3501) RPR TITER (test code = 3500) NOT INDIC. TITER [id number] 00:00:00 Test Item Value Reference Range Interpretation Comments RPR RESULT (test code = NON-REACTIVE 3501) RPR TITER (test code = 3500) NOT INDIC. TITER [id number] 00:00:00 Test Item Value Reference Range Interpretation Comments RPR RESULT (test code = NON-REACTIVE 3501) RPR TITER (test code = 3500) NOT INDIC. TITER [id number] 00:00:00 Test Item Value Reference Range Interpretation Comments RPR RESULT (test code = NON-REACTIVE 3501) RPR TITER (test code = 3500) NOT INDIC. TITER [id number] 00:00:00 Test Item Value Reference Range Interpretation Comments RPR RESULT (test code = NON-REACTIVE 3501) RPR TITER (test code = 3500) NOT INDIC. TITER [id number] 00:00:00 Test Item Value Reference Range Interpretation Comments RPR RESULT (test code = NON-REACTIVE 3501) RPR TITER (test code = 3500) NOT INDIC. TITER [id number] 00:00:00 Test Item Value Reference Range Interpretation Comments RPR RESULT (test code = NON-REACTIVE 3501) RPR TITER (test code = 3500) NOT INDIC. TITER [id number] 00:00:00 Test Item Value Reference Range Interpretation Comments RPR RESULT (test code = NON-REACTIVE 3501) RPR TITER (test code = 3500) NOT INDIC. TITER SARS-CoV-2 (COVID-19), RT-PCR/[id number] 17:22:58 Test Item Value Reference Interpretation Comments Range SARS-CoV-2 NEGATIVE SEE NOTE SARS-CoV-2 RNA NOT INTERPRETATION DETECTEDNegat alexander (test code = 82445) results do not preclude SARS-C oV-2 infection and s hould notbe used as t he sole basis for patie nt management deci sions. Negativeresults must be combined wit h clinical observ ations, patient history ,and epidemiological information. Op timum specimen types and timingfor peak viral levels during infections caus ed by SARS-CoV-2 have notbeen determi mariano. Collection of m ultiple specimens or ty pes ofspecimens may be necessary to de tect virus. Improper specimencollect ion and handling, seque nce variability und er primers/probes, or organism presen t below the limit of de tection may lead to falsenegative r esults. Positive and ne gative predictive valu es oftesting are h ighly dependent on prevalence. Fal se negative testre sults are more likely when prevalence is h igh. SOURCE (test code = NASOPHARYNGEAL Note: [place] [address]) Steve Rashi [place] l-Time RT-PCR. The exp ected result or refer ence range is NEGATI VE (Not Detected). For more information reg arding COVID-19 testin g to include clinicalinforma tion, methodology det ail, intended use, F DA authorization andrecommended fact sheets for mac ents or healthcare prov iders, see [employer] ([employer]) Announcement: SARS-CoV-2 (COV ID-19) by NAAT at URL below (note,fact shee ts are provided by met hod given in report:[email or web address] Alternatively, see downloadable PD F fact sheet at:[email or web address] UNLESS OTHERWIS E INDICATED, ALL TESTING PERFORMED [facility], [facility]. [address] [place] [id number] [place] [address] DIRECTOR: Shakira FLORESIA NUMBER [id number] CAP ACCREDITATION N O. [id number] SARS-CoV-2 (COVID-19) by RT-PCR (HIGH RISK)2021-10-10 00:00:00 Test Item Value Reference Range Interpretation Comments SARS-CoV-2 INTERPRETATION NEGATIVE (test code = 20142) SOURCE (test code = 93387) NASOPHARYNGEAL SARS-CoV-2 (COVID-19) by RT-PCR (HIGH RISK)2021-10-10 00:00:00 Test Item Value Reference Range Interpretation Comments SARS-CoV-2 INTERPRETATION NEGATIVE (test code = 73048) SOURCE (test code = 77796) NASOPHARYNGEAL SARS-CoV-2 (COVID-19) by RT-PCR (HIGH RISK)2021-10-10 00:00:00 Test Item Value Reference Range Interpretation Comments SARS-CoV-2 INTERPRETATION NEGATIVE (test code = 54462) SOURCE (test code = 14041) NASOPHARYNGEAL SARS-CoV-2 (COVID-19) by RT-PCR (HIGH RISK)2021-10-10 00:00:00 Test Item Value Reference Range Interpretation Comments SARS-CoV-2 INTERPRETATION NEGATIVE (test code = 53197) SOURCE (test code = 45252) NASOPHARYNGEAL SARS-CoV-2 (COVID-19) by RT-PCR (HIGH RISK)2021-10-10 00:00:00 Test Item Value Reference Range Interpretation Comments SARS-CoV-2 INTERPRETATION NEGATIVE (test code = 87763) SOURCE (test code = 29188) NASOPHARYNGEAL SARS-CoV-2 (COVID-19) by RT-PCR (HIGH RISK)2021-10-10 00:00:00 Test Item Value Reference Range Interpretation Comments SARS-CoV-2 INTERPRETATION NEGATIVE (test code = 98708) SOURCE (test code = 56697) NASOPHARYNGEAL SARS-CoV-2 (COVID-19) by RT-PCR (HIGH RISK)2021-10-10 00:00:00 Test Item Value Reference Range Interpretation Comments SARS-CoV-2 INTERPRETATION NEGATIVE (test code = 38267) SOURCE (test code = 14772) NASOPHARYNGEAL SARS-CoV-2 (COVID-19) by RT-PCR (HIGH RISK)2021-10-10 00:00:00 Test Item Value Reference Range Interpretation Comments SARS-CoV-2 INTERPRETATION NEGATIVE (test code = 64619) SOURCE (test code = 25532) NASOPHARYNGEAL SARS-CoV-2 (COVID-19) by RT-PCR (HIGH RISK)2021-10-10 00:00:00 Test Item Value Reference Range Interpretation Comments SARS-CoV-2 INTERPRETATION NEGATIVE (test code = 72229) SOURCE (test code = 11011) NASOPHARYNGEAL SARS-CoV-2 (COVID-19) by RT-PCR (HIGH RISK)2021-10-10 00:00:00 Test Item Value Reference Range Interpretation Comments SARS-CoV-2 INTERPRETATION NEGATIVE (test code = 79247) SOURCE (test code = 53380) NASOPHARYNGEAL SARS-CoV-2 (COVID-19) by RT-PCR (HIGH RISK)2021-10-10 00:00:00 Test Item Value Reference Range Interpretation Comments SARS-CoV-2 INTERPRETATION NEGATIVE (test code = 65695) SOURCE (test code = 85231) NASOPHARYNGEAL SARS-CoV-2 (COVID-19) by RT-PCR (HIGH RISK)2021-10-10 00:00:00 Test Item Value Reference Range Interpretation Comments SARS-CoV-2 INTERPRETATION NEGATIVE (test code = 27885) SOURCE (test code = 61572) NASOPHARYNGEAL SARS-CoV-2 (COVID-19) by RT-PCR (HIGH RISK)2021-10-10 00:00:00 Test Item Value Reference Range Interpretation Comments SARS-CoV-2 INTERPRETATION NEGATIVE (test code = 71316) SOURCE (test code = 35217) NASOPHARYNGEAL SARS-CoV-2 (COVID-19) by RT-PCR (HIGH RISK)2021-10-10 00:00:00 Test Item Value Reference Range Interpretation Comments SARS-CoV-2 INTERPRETATION NEGATIVE (test code = 76619) SOURCE (test code = 76153) NASOPHARYNGEAL SARS-CoV-2 (COVID-19) by RT-PCR (HIGH RISK)2021-10-10 00:00:00 Test Item Value Reference Range Interpretation Comments SARS-CoV-2 INTERPRETATION NEGATIVE (test code = 25535) SOURCE (test code = 10286) NASOPHARYNGEAL SARS-CoV-2 (COVID-19) by RT-PCR (HIGH RISK)2021-10-10 00:00:00 Test Item Value Reference Range Interpretation Comments SARS-CoV-2 INTERPRETATION NEGATIVE (test code = 29712) SOURCE (test code = 83649) NASOPHARYNGEAL SARS-CoV-2 (COVID-19) by RT-PCR (HIGH RISK)2021-10-10 00:00:00 Test Item Value Reference Range Interpretation Comments SARS-CoV-2 INTERPRETATION NEGATIVE (test code = 97797) SOURCE (test code = 06154) NASOPHARYNGEAL SARS-CoV-2 (COVID-19) by RT-PCR (HIGH RISK)2021-10-10 00:00:00 Test Item Value Reference Range Interpretation Comments SARS-CoV-2 INTERPRETATION NEGATIVE (test code = 52863) SOURCE (test code = 48135) NASOPHARYNGEAL SARS-CoV-2 (COVID-19) by RT-PCR (HIGH RISK)2021-10-10 00:00:00 Test Item Value Reference Range Interpretation Comments SARS-CoV-2 INTERPRETATION NEGATIVE (test code = 01225) SOURCE (test code = 12664) NASOPHARYNGEAL HIV AB/AG COMBO RFLX [id number] 00:00:00 Test Item Value Reference Range Interpretation Comments HIV 1/2 4TH GEN, RFLX CONF (test NON-REACTIVE code = 3514) HIV AB/AG COMBO RFLX [id number] 00:00:00 Test Item Value Reference Range Interpretation Comments HIV 1/2 4TH GEN, RFLX CONF (test NON-REACTIVE code = 3514) [id number] 00:00:00 Test Item Value Reference Range Interpretation Comments RPR RESULT (test code = NON-REACTIVE 3501) RPR TITER (test code = 3500) NOT INDIC. TITER [id number] 00:00:00 Test Item Value Reference Range Interpretation Comments RPR RESULT (test code = NON-REACTIVE 3501) RPR TITER (test code = 3500) NOT INDIC. TITER [id number] 00:00:00 Test Item Value Reference Range Interpretation Comments RPR RESULT (test code = NON-REACTIVE 3501) RPR TITER (test code = 3500) NOT INDIC. TITER ACUTE HEPATITIS [id number] 00:00:00 Test Item Value Reference Range Interpretation Comments HEPATITIS A IgM (test code = NON-REACTIVE 32327) HEPATITIS B CORE IgM (test code NON-REACTIVE = 4644) HEPATITIS B SURF AG (test code = NON-REACTIVE 2739) HEPATITIS C ANTIBODY (test code NON-REACTIVE = 4675) INTERPRETATION HEPATITIS A: (NOTE) (test code = 2552) INTERPRETATION HEPATITIS B: (NOTE) (test code = 41544) INTERPRETATION HEPATITIS C: (NOTE) (test code = 24375) ACUTE HEPATITIS [id number] 00:00:00 Test Item Value Reference Range Interpretation Comments HEPATITIS A IgM (test code = NON-REACTIVE 77275) HEPATITIS B CORE IgM (test code NON-REACTIVE = 4644) HEPATITIS B SURF AG (test code = NON-REACTIVE 2739) HEPATITIS C ANTIBODY (test code NON-REACTIVE = 4675) INTERPRETATION HEPATITIS A: (NOTE) (test code = 2552) INTERPRETATION HEPATITIS B: (NOTE) (test code = 20924) INTERPRETATION HEPATITIS C: (NOTE) (test code = 34803) CHLAMYDIA, AMPLIFIED, [id number] 00:00:00 Test Item Value Reference Range Interpretation Comments CHLAMYDIA, NAAT (test code = 19833) NEGATIVE CHLAMYDIA, AMPLIFIED, [id number] 00:00:00 Test Item Value Reference Range Interpretation Comments CHLAMYDIA, NAAT (test code = 07807) NEGATIVE CHLAMYDIA, AMPLIFIED, [id number] 00:00:00 Test Item Value Reference Range Interpretation Comments CHLAMYDIA, NAAT (test code = 13944) NEGATIVE CHLAMYDIA, AMPLIFIED, [id number] 00:00:00 Test Item Value Reference Range Interpretation Comments CHLAMYDIA, NAAT (test code = 05576) NEGATIVE GC, AMPLIFIED, [id number] 00:00:00 Test Item Value Reference Range Interpretation Comments GONORRHEA, NAAT (test code = 27922) NEGATIVE GC, AMPLIFIED, [id number] 00:00:00 Test Item Value Reference Range Interpretation Comments GONORRHEA, NAAT (test code = 87006) NEGATIVE GC, AMPLIFIED, [id number] 00:00:00 Test Item Value Reference Range Interpretation Comments GONORRHEA, NAAT (test code = 31411) NEGATIVE GC, AMPLIFIED, [id number] 00:00:00 Test Item Value Reference Range Interpretation Comments GONORRHEA, NAAT (test code = 42491) NEGATIVE HIV AB/AG COMBO RFLX [id number] 00:00:00 Test Item Value Reference Range Interpretation Comments HIV 1/2 4TH GEN, RFLX CONF (test NON-REACTIVE code = 3514) HIV AB/AG COMBO RFLX [id number] 00:00:00 Test Item Value Reference Range Interpretation Comments HIV 1/2 4TH GEN, RFLX CONF (test NON-REACTIVE code = 3514) [id number] 00:00:00 Test Item Value Reference Range Interpretation Comments RPR RESULT (test code = NON-REACTIVE 3501) RPR TITER (test code = 3500) NOT INDIC. TITER [id number] 00:00:00 Test Item Value Reference Range Interpretation Comments RPR RESULT (test code = NON-REACTIVE 3501) RPR TITER (test code = 3500) NOT INDIC. TITER [id number] 00:00:00 Test Item Value Reference Range Interpretation Comments RPR RESULT (test code = NON-REACTIVE 3501) RPR TITER (test code = 3500) NOT INDIC. TITER ACUTE HEPATITIS [id number] 00:00:00 Test Item Value Reference Range Interpretation Comments HEPATITIS A IgM (test code = NON-REACTIVE 63211) HEPATITIS B CORE IgM (test code NON-REACTIVE = 4644) HEPATITIS B SURF AG (test code = NON-REACTIVE 2739) HEPATITIS C ANTIBODY (test code NON-REACTIVE = 4675) INTERPRETATION HEPATITIS A: (NOTE) (test code = 2552) INTERPRETATION HEPATITIS B: (NOTE) (test code = 51355) INTERPRETATION HEPATITIS C: (NOTE) (test code = 05798) ACUTE HEPATITIS [id number] 00:00:00 Test Item Value Reference Range Interpretation Comments HEPATITIS A IgM (test code = NON-REACTIVE 75224) HEPATITIS B CORE IgM (test code NON-REACTIVE = 4644) HEPATITIS B SURF AG (test code = NON-REACTIVE 2739) HEPATITIS C ANTIBODY (test code NON-REACTIVE = 4675) INTERPRETATION HEPATITIS A: (NOTE) (test code = 2552) INTERPRETATION HEPATITIS B: (NOTE) (test code = 88196) INTERPRETATION HEPATITIS C: (NOTE) (test code = 20179) CHLAMYDIA, AMPLIFIED, [id number] 00:00:00 Test Item Value Reference Range Interpretation Comments CHLAMYDIA, NAAT (test code = 77547) NEGATIVE CHLAMYDIA, AMPLIFIED, [id number] 00:00:00 Test Item Value Reference Range Interpretation Comments CHLAMYDIA, NAAT (test code = 49229) NEGATIVE CHLAMYDIA, AMPLIFIED, [id number] 00:00:00 Test Item Value Reference Range Interpretation Comments CHLAMYDIA, NAAT (test code = 84088) NEGATIVE CHLAMYDIA, AMPLIFIED, [id number] 00:00:00 Test Item Value Reference Range Interpretation Comments CHLAMYDIA, NAAT (test code = 90828) NEGATIVE GC, AMPLIFIED, [id number] 00:00:00 Test Item Value Reference Range Interpretation Comments GONORRHEA, NAAT (test code = 98613) NEGATIVE GC, AMPLIFIED, [id number] 00:00:00 Test Item Value Reference Range Interpretation Comments GONORRHEA, NAAT (test code = 46373) NEGATIVE GC, AMPLIFIED, [id number] 00:00:00 Test Item Value Reference Range Interpretation Comments GONORRHEA, NAAT (test code = 69222) NEGATIVE GC, AMPLIFIED, [id number] 00:00:00 Test Item Value Reference Range Interpretation Comments GONORRHEA, NAAT (test code = 87465) NEGATIVE HIV AB/AG COMBO RFLX [id number] 00:00:00 Test Item Value Reference Range Interpretation Comments HIV 1/2 4TH GEN, RFLX CONF (test NON-REACTIVE code = 3514) HIV AB/AG COMBO RFLX [id number] 00:00:00 Test Item Value Reference Range Interpretation Comments HIV 1/2 4TH GEN, RFLX CONF (test NON-REACTIVE code = 3514) [id number] 00:00:00 Test Item Value Reference Range Interpretation Comments RPR RESULT (test code = NON-REACTIVE 3501) RPR TITER (test code = 3500) NOT INDIC. TITER [id number] 00:00:00 Test Item Value Reference Range Interpretation Comments RPR RESULT (test code = NON-REACTIVE 3501) RPR TITER (test code = 3500) NOT INDIC. TITER [id number] 00:00:00 Test Item Value Reference Range Interpretation Comments RPR RESULT (test code = NON-REACTIVE 3501) RPR TITER (test code = 3500) NOT INDIC. TITER ACUTE HEPATITIS [id number] 00:00:00 Test Item Value Reference Range Interpretation Comments HEPATITIS A IgM (test code = NON-REACTIVE 61606) HEPATITIS B CORE IgM (test code NON-REACTIVE = 4644) HEPATITIS B SURF AG (test code = NON-REACTIVE 2739) HEPATITIS C ANTIBODY (test code NON-REACTIVE = 4675) INTERPRETATION HEPATITIS A: (NOTE) (test code = 2552) INTERPRETATION HEPATITIS B: (NOTE) (test code = 72917) INTERPRETATION HEPATITIS C: (NOTE) (test code = 64236) ACUTE HEPATITIS [id number] 00:00:00 Test Item Value Reference Range Interpretation Comments HEPATITIS A IgM (test code = NON-REACTIVE 35745) HEPATITIS B CORE IgM (test code NON-REACTIVE = 4644) HEPATITIS B SURF AG (test code = NON-REACTIVE 2739) HEPATITIS C ANTIBODY (test code NON-REACTIVE = 4675) INTERPRETATION HEPATITIS A: (NOTE) (test code = 2552) INTERPRETATION HEPATITIS B: (NOTE) (test code = 91671) INTERPRETATION HEPATITIS C: (NOTE) (test code = 62610) CHLAMYDIA, AMPLIFIED, [id number] 00:00:00 Test Item Value Reference Range Interpretation Comments CHLAMYDIA, NAAT (test code = 95350) NEGATIVE CHLAMYDIA, AMPLIFIED, [id number] 00:00:00 Test Item Value Reference Range Interpretation Comments CHLAMYDIA, NAAT (test code = 04900) NEGATIVE CHLAMYDIA, AMPLIFIED, [id number] 00:00:00 Test Item Value Reference Range Interpretation Comments CHLAMYDIA, NAAT (test code = 14621) NEGATIVE CHLAMYDIA, AMPLIFIED, [id number] 00:00:00 Test Item Value Reference Range Interpretation Comments CHLAMYDIA, NAAT (test code = 35909) NEGATIVE GC, AMPLIFIED, [id number] 00:00:00 Test Item Value Reference Range Interpretation Comments GONORRHEA, NAAT (test code = 02819) NEGATIVE GC, AMPLIFIED, [id number] 00:00:00 Test Item Value Reference Range Interpretation Comments GONORRHEA, NAAT (test code = 98562) NEGATIVE GC, AMPLIFIED, [id number] 00:00:00 Test Item Value Reference Range Interpretation Comments GONORRHEA, NAAT (test code = 82654) NEGATIVE GC, AMPLIFIED, [id number] 00:00:00 Test Item Value Reference Range Interpretation Comments GONORRHEA, NAAT (test code = 49362) NEGATIVE HIV AB/AG COMBO RFLX [id number] 00:00:00 Test Item Value Reference Range Interpretation Comments HIV 1/2 4TH GEN, RFLX CONF (test NON-REACTIVE code = 3514) HIV AB/AG COMBO RFLX [id number] 00:00:00 Test Item Value Reference Range Interpretation Comments HIV 1/2 4TH GEN, RFLX CONF (test NON-REACTIVE code = 3514) [id number] 00:00:00 Test Item Value Reference Range Interpretation Comments RPR RESULT (test code = NON-REACTIVE 3501) RPR TITER (test code = 3500) NOT INDIC. TITER [id number] 00:00:00 Test Item Value Reference Range Interpretation Comments RPR RESULT (test code = NON-REACTIVE 3501) RPR TITER (test code = 3500) NOT INDIC. TITER [id number] 00:00:00 Test Item Value Reference Range Interpretation Comments RPR RESULT (test code = NON-REACTIVE 3501) RPR TITER (test code = 3500) NOT INDIC. TITER ACUTE HEPATITIS [id number] 00:00:00 Test Item Value Reference Range Interpretation Comments HEPATITIS A IgM (test code = NON-REACTIVE 99589) HEPATITIS B CORE IgM (test code NON-REACTIVE = 4644) HEPATITIS B SURF AG (test code = NON-REACTIVE 2739) HEPATITIS C ANTIBODY (test code NON-REACTIVE = 4675) INTERPRETATION HEPATITIS A: (NOTE) (test code = 2552) INTERPRETATION HEPATITIS B: (NOTE) (test code = 11120) INTERPRETATION HEPATITIS C: (NOTE) (test code = 18856) ACUTE HEPATITIS [id number] 00:00:00 Test Item Value Reference Range Interpretation Comments HEPATITIS A IgM (test code = NON-REACTIVE 04643) HEPATITIS B CORE IgM (test code NON-REACTIVE = 4644) HEPATITIS B SURF AG (test code = NON-REACTIVE 2739) HEPATITIS C ANTIBODY (test code NON-REACTIVE = 4675) INTERPRETATION HEPATITIS A: (NOTE) (test code = 2552) INTERPRETATION HEPATITIS B: (NOTE) (test code = 28089) INTERPRETATION HEPATITIS C: (NOTE) (test code = 82551) CHLAMYDIA, AMPLIFIED, [id number] 00:00:00 Test Item Value Reference Range Interpretation Comments CHLAMYDIA, NAAT (test code = 94442) NEGATIVE CHLAMYDIA, AMPLIFIED, [id number] 00:00:00 Test Item Value Reference Range Interpretation Comments CHLAMYDIA, NAAT (test code = 17699) NEGATIVE CHLAMYDIA, AMPLIFIED, [id number] 00:00:00 Test Item Value Reference Range Interpretation Comments CHLAMYDIA, NAAT (test code = 74110) NEGATIVE CHLAMYDIA, AMPLIFIED, [id number] 00:00:00 Test Item Value Reference Range Interpretation Comments CHLAMYDIA, NAAT (test code = 17243) NEGATIVE GC, AMPLIFIED, [id number] 00:00:00 Test Item Value Reference Range Interpretation Comments GONORRHEA, NAAT (test code = 18426) NEGATIVE GC, AMPLIFIED, [id number] 00:00:00 Test Item Value Reference Range Interpretation Comments GONORRHEA, NAAT (test code = 70982) NEGATIVE GC, AMPLIFIED, [id number] 00:00:00 Test Item Value Reference Range Interpretation Comments GONORRHEA, NAAT (test code = 73235) NEGATIVE GC, AMPLIFIED, [id number] 00:00:00 Test Item Value Reference Range Interpretation Comments GONORRHEA, NAAT (test code = 70258) NEGATIVE HIV AB/AG COMBO RFLX [id number] 00:00:00 Test Item Value Reference Range Interpretation Comments HIV 1/2 4TH GEN, RFLX CONF (test NON-REACTIVE code = 3514) HIV AB/AG COMBO RFLX [id number] 00:00:00 Test Item Value Reference Range Interpretation Comments HIV 1/2 4TH GEN, RFLX CONF (test NON-REACTIVE code = 3514) [id number] 00:00:00 Test Item Value Reference Range Interpretation Comments RPR RESULT (test code = NON-REACTIVE 3501) RPR TITER (test code = 3500) NOT INDIC. TITER [id number] 00:00:00 Test Item Value Reference Range Interpretation Comments RPR RESULT (test code = NON-REACTIVE 3501) RPR TITER (test code = 3500) NOT INDIC. TITER [id number] 00:00:00 Test Item Value Reference Range Interpretation Comments RPR RESULT (test code = NON-REACTIVE 3501) RPR TITER (test code = 3500) NOT INDIC. TITER ACUTE HEPATITIS [id number] 00:00:00 Test Item Value Reference Range Interpretation Comments HEPATITIS A IgM (test code = NON-REACTIVE 71420) HEPATITIS B CORE IgM (test code NON-REACTIVE = 4644) HEPATITIS B SURF AG (test code = NON-REACTIVE 2739) HEPATITIS C ANTIBODY (test code NON-REACTIVE = 4675) INTERPRETATION HEPATITIS A: (NOTE) (test code = 2552) INTERPRETATION HEPATITIS B: (NOTE) (test code = 38827) INTERPRETATION HEPATITIS C: (NOTE) (test code = 49146) ACUTE HEPATITIS [id number] 00:00:00 Test Item Value Reference Range Interpretation Comments HEPATITIS A IgM (test code = NON-REACTIVE 33082) HEPATITIS B CORE IgM (test code NON-REACTIVE = 4644) HEPATITIS B SURF AG (test code = NON-REACTIVE 2739) HEPATITIS C ANTIBODY (test code NON-REACTIVE = 4675) INTERPRETATION HEPATITIS A: (NOTE) (test code = 2552) INTERPRETATION HEPATITIS B: (NOTE) (test code = 73472) INTERPRETATION HEPATITIS C: (NOTE) (test code = 47595) CHLAMYDIA, AMPLIFIED, [id number] 00:00:00 Test Item Value Reference Range Interpretation Comments CHLAMYDIA, NAAT (test code = 84819) NEGATIVE CHLAMYDIA, AMPLIFIED, [id number] 00:00:00 Test Item Value Reference Range Interpretation Comments CHLAMYDIA, NAAT (test code = 80797) NEGATIVE CHLAMYDIA, AMPLIFIED, [id number] 00:00:00 Test Item Value Reference Range Interpretation Comments CHLAMYDIA, NAAT (test code = 00985) NEGATIVE CHLAMYDIA, AMPLIFIED, [id number] 00:00:00 Test Item Value Reference Range Interpretation Comments CHLAMYDIA, NAAT (test code = 92759) NEGATIVE GC, AMPLIFIED, [id number] 00:00:00 Test Item Value Reference Range Interpretation Comments GONORRHEA, NAAT (test code = 01459) NEGATIVE GC, AMPLIFIED, [id number] 00:00:00 Test Item Value Reference Range Interpretation Comments GONORRHEA, NAAT (test code = 85399) NEGATIVE GC, AMPLIFIED, [id number] 00:00:00 Test Item Value Reference Range Interpretation Comments GONORRHEA, NAAT (test code = 05645) NEGATIVE GC, AMPLIFIED, [id number] 00:00:00 Test Item Value Reference Range Interpretation Comments GONORRHEA, NAAT (test code = 39359) NEGATIVE HIV AB/AG COMBO RFLX [id number] 00:00:00 Test Item Value Reference Range Interpretation Comments HIV 1/2 4TH GEN, RFLX CONF (test NON-REACTIVE code = 3514) HIV AB/AG COMBO RFLX [id number] 00:00:00 Test Item Value Reference Range Interpretation Comments HIV 1/2 4TH GEN, RFLX CONF (test NON-REACTIVE code = 3514) [id number] 00:00:00 Test Item Value Reference Range Interpretation Comments RPR RESULT (test code = NON-REACTIVE 3501) RPR TITER (test code = 3500) NOT INDIC. TITER [id number] 00:00:00 Test Item Value Reference Range Interpretation Comments RPR RESULT (test code = NON-REACTIVE 3501) RPR TITER (test code = 3500) NOT INDIC. TITER [id number] 00:00:00 Test Item Value Reference Range Interpretation Comments RPR RESULT (test code = NON-REACTIVE 3501) RPR TITER (test code = 3500) NOT INDIC. TITER ACUTE HEPATITIS [id number] 00:00:00 Test Item Value Reference Range Interpretation Comments HEPATITIS A IgM (test code = NON-REACTIVE 59569) HEPATITIS B CORE IgM (test code NON-REACTIVE = 4644) HEPATITIS B SURF AG (test code = NON-REACTIVE 2739) HEPATITIS C ANTIBODY (test code NON-REACTIVE = 4675) INTERPRETATION HEPATITIS A: (NOTE) (test code = 2552) INTERPRETATION HEPATITIS B: (NOTE) (test code = 70256) INTERPRETATION HEPATITIS C: (NOTE) (test code = 35333) ACUTE HEPATITIS [id number] 00:00:00 Test Item Value Reference Range Interpretation Comments HEPATITIS A IgM (test code = NON-REACTIVE 56625) HEPATITIS B CORE IgM (test code NON-REACTIVE = 4644) HEPATITIS B SURF AG (test code = NON-REACTIVE 2739) HEPATITIS C ANTIBODY (test code NON-REACTIVE = 4675) INTERPRETATION HEPATITIS A: (NOTE) (test code = 2552) INTERPRETATION HEPATITIS B: (NOTE) (test code = 40720) INTERPRETATION HEPATITIS C: (NOTE) (test code = 14833) CHLAMYDIA, AMPLIFIED, [id number] 00:00:00 Test Item Value Reference Range Interpretation Comments CHLAMYDIA, NAAT (test code = 52677) NEGATIVE CHLAMYDIA, AMPLIFIED, [id number] 00:00:00 Test Item Value Reference Range Interpretation Comments CHLAMYDIA, NAAT (test code = 34124) NEGATIVE CHLAMYDIA, AMPLIFIED, [id number] 00:00:00 Test Item Value Reference Range Interpretation Comments CHLAMYDIA, NAAT (test code = 07806) NEGATIVE CHLAMYDIA, AMPLIFIED, [id number] 00:00:00 Test Item Value Reference Range Interpretation Comments CHLAMYDIA, NAAT (test code = 21395) NEGATIVE CHLAMYDIA, AMPLIFIED, [id number] 00:00:00 Test Item Value Reference Range Interpretation Comments CHLAMYDIA, NAAT (test code = 20466) NEGATIVE CHLAMYDIA, AMPLIFIED, [id number] 00:00:00 Test Item Value Reference Range Interpretation Comments CHLAMYDIA, NAAT (test code = 55421) NEGATIVE GC, AMPLIFIED, [id number] 00:00:00 Test Item Value Reference Range Interpretation Comments GONORRHEA, NAAT (test code = 60620) NEGATIVE GC, AMPLIFIED, [id number] 00:00:00 Test Item Value Reference Range Interpretation Comments GONORRHEA, NAAT (test code = 36905) NEGATIVE GC, AMPLIFIED, [id number] 00:00:00 Test Item Value Reference Range Interpretation Comments GONORRHEA, NAAT (test code = 75209) NEGATIVE GC, AMPLIFIED, [id number] 00:00:00 Test Item Value Reference Range Interpretation Comments GONORRHEA, NAAT (test code = 29337) NEGATIVE HIV AB/AG COMBO RFLX [id number] 00:00:00 Test Item Value Reference Range Interpretation Comments HIV 1/2 4TH GEN, RFLX CONF (test NON-REACTIVE code = 3514) HIV AB/AG COMBO RFLX [id number] 00:00:00 Test Item Value Reference Range Interpretation Comments HIV 1/2 4TH GEN, RFLX CONF (test NON-REACTIVE code = 3514) [id number] 00:00:00 Test Item Value Reference Range Interpretation Comments RPR RESULT (test code = NON-REACTIVE 3501) RPR TITER (test code = 3500) NOT INDIC. TITER [id number] 00:00:00 Test Item Value Reference Range Interpretation Comments RPR RESULT (test code = NON-REACTIVE 3501) RPR TITER (test code = 3500) NOT INDIC. TITER [id number] 00:00:00 Test Item Value Reference Range Interpretation Comments RPR RESULT (test code = NON-REACTIVE 3501) RPR TITER (test code = 3500) NOT INDIC. TITER ACUTE HEPATITIS [id number] 00:00:00 Test Item Value Reference Range Interpretation Comments HEPATITIS A IgM (test code = NON-REACTIVE 32286) HEPATITIS B CORE IgM (test code NON-REACTIVE = 4644) HEPATITIS B SURF AG (test code = NON-REACTIVE 2739) HEPATITIS C ANTIBODY (test code NON-REACTIVE = 4675) INTERPRETATION HEPATITIS A: (NOTE) (test code = 2552) INTERPRETATION HEPATITIS B: (NOTE) (test code = 47731) INTERPRETATION HEPATITIS C: (NOTE) (test code = 56155) ACUTE HEPATITIS [id number] 00:00:00 Test Item Value Reference Range Interpretation Comments HEPATITIS A IgM (test code = NON-REACTIVE 55707) HEPATITIS B CORE IgM (test code NON-REACTIVE = 4644) HEPATITIS B SURF AG (test code = NON-REACTIVE 2739) HEPATITIS C ANTIBODY (test code NON-REACTIVE = 4675) INTERPRETATION HEPATITIS A: (NOTE) (test code = 2552) INTERPRETATION HEPATITIS B: (NOTE) (test code = 97294) INTERPRETATION HEPATITIS C: (NOTE) (test code = 08509) GC, AMPLIFIED, [id number] 00:00:00 Test Item Value Reference Range Interpretation Comments GONORRHEA, NAAT (test code = 81022) NEGATIVE GC, AMPLIFIED, [id number] 00:00:00 Test Item Value Reference Range Interpretation Comments GONORRHEA, NAAT (test code = 61654) NEGATIVE HIV AB/AG COMBO RFLX [id number] 00:00:00 Test Item Value Reference Range Interpretation Comments HIV 1/2 4TH GEN, RFLX CONF (test NON-REACTIVE code = 3514) CHLAMYDIA, AMPLIFIED, [id number] 00:00:00 Test Item Value Reference Range Interpretation Comments CHLAMYDIA, NAAT (test code = 27387) NEGATIVE [id number] 00:00:00 Test Item Value Reference Range Interpretation Comments RPR RESULT (test code = NON-REACTIVE 3501) RPR TITER (test code = 3500) NOT INDIC. TITER CHLAMYDIA, AMPLIFIED, [id number] 00:00:00 Test Item Value Reference Range Interpretation Comments CHLAMYDIA, NAAT (test code = 96811) NEGATIVE CHLAMYDIA, AMPLIFIED, [id number] 00:00:00 Test Item Value Reference Range Interpretation Comments CHLAMYDIA, NAAT (test code = 19750) NEGATIVE [id number] 00:00:00 Test Item Value Reference Range Interpretation Comments RPR RESULT (test code = NON-REACTIVE 3501) RPR TITER (test code = 3500) NOT INDIC. TITER CHLAMYDIA, AMPLIFIED, [id number] 00:00:00 Test Item Value Reference Range Interpretation Comments CHLAMYDIA, NAAT (test code = 30779) NEGATIVE GC, AMPLIFIED, [id number] 00:00:00 Test Item Value Reference Range Interpretation Comments GONORRHEA, NAAT (test code = 13533) NEGATIVE GC, AMPLIFIED, [id number] 00:00:00 Test Item Value Reference Range Interpretation Comments GONORRHEA, NAAT (test code = 89637) NEGATIVE GC, AMPLIFIED, [id number] 00:00:00 Test Item Value Reference Range Interpretation Comments GONORRHEA, NAAT (test code = 32759) NEGATIVE GC, AMPLIFIED, [id number] 00:00:00 Test Item Value Reference Range Interpretation Comments GONORRHEA, NAAT (test code = 22830) NEGATIVE HIV AB/AG COMBO RFLX [id number] 00:00:00 Test Item Value Reference Range Interpretation Comments HIV 1/2 4TH GEN, RFLX CONF (test NON-REACTIVE code = 3514) ACUTE HEPATITIS [id number] 00:00:00 Test Item Value Reference Range Interpretation Comments HEPATITIS A IgM (test code = NON-REACTIVE 58718) HEPATITIS B CORE IgM (test code NON-REACTIVE = 4644) HEPATITIS B SURF AG (test code = NON-REACTIVE 2739) HEPATITIS C ANTIBODY (test code NON-REACTIVE = 4675) INTERPRETATION HEPATITIS A: (NOTE) (test code = 2552) INTERPRETATION HEPATITIS B: (NOTE) (test code = 88132) INTERPRETATION HEPATITIS C: (NOTE) (test code = 09728) HIV AB/AG COMBO RFLX [id number] 00:00:00 Test Item Value Reference Range Interpretation Comments HIV 1/2 4TH GEN, RFLX CONF (test NON-REACTIVE code = 3514) [id number] 00:00:00 Test Item Value Reference Range Interpretation Comments RPR RESULT (test code = NON-REACTIVE 3501) RPR TITER (test code = 3500) NOT INDIC. TITER [id number] 00:00:00 Test Item Value Reference Range Interpretation Comments RPR RESULT (test code = NON-REACTIVE 3501) RPR TITER (test code = 3500) NOT INDIC. TITER [id number] 00:00:00 Test Item Value Reference Range Interpretation Comments RPR RESULT (test code = NON-REACTIVE 3501) RPR TITER (test code = 3500) NOT INDIC. TITER ACUTE HEPATITIS [id number] 00:00:00 Test Item Value Reference Range Interpretation Comments HEPATITIS A IgM (test code = NON-REACTIVE 21968) HEPATITIS B CORE IgM (test code NON-REACTIVE = 4644) HEPATITIS B SURF AG (test code = NON-REACTIVE 2739) HEPATITIS C ANTIBODY (test code NON-REACTIVE = 4675) INTERPRETATION HEPATITIS A: (NOTE) (test code = 2552) INTERPRETATION HEPATITIS B: (NOTE) (test code = 19572) INTERPRETATION HEPATITIS C: (NOTE) (test code = 88613) ACUTE HEPATITIS [id number] 00:00:00 Test Item Value Reference Range Interpretation Comments HEPATITIS A IgM (test code = NON-REACTIVE 40080) HEPATITIS B CORE IgM (test code NON-REACTIVE = 4644) HEPATITIS B SURF AG (test code = NON-REACTIVE 1809) HEPATITIS C ANTIBODY (test code NON-REACTIVE = 4675) INTERPRETATION HEPATITIS A: (NOTE) (test code = 2552) INTERPRETATION HEPATITIS B: (NOTE) (test code = 12763) INTERPRETATION HEPATITIS C: (NOTE) (test code = 68347) CHLAMYDIA, AMPLIFIED, [id number] 00:00:00 Test Item Value Reference Range Interpretation Comments CHLAMYDIA, NAAT (test code = 57785) NEGATIVE CHLAMYDIA, AMPLIFIED, [id number] 00:00:00 Test Item Value Reference Range Interpretation Comments CHLAMYDIA, NAAT (test code = 39617) NEGATIVE CHLAMYDIA, AMPLIFIED, [id number] 00:00:00 Test Item Value Reference Range Interpretation Comments CHLAMYDIA, NAAT (test code = 97401) NEGATIVE CHLAMYDIA, AMPLIFIED, [id number] 00:00:00 Test Item Value Reference Range Interpretation Comments CHLAMYDIA, NAAT (test code = 69054) NEGATIVE GC, AMPLIFIED, [id number] 00:00:00 Test Item Value Reference Range Interpretation Comments GONORRHEA, NAAT (test code = 27756) NEGATIVE GC, AMPLIFIED, [id number] 00:00:00 Test Item Value Reference Range Interpretation Comments GONORRHEA, NAAT (test code = 43412) NEGATIVE GC, AMPLIFIED, [id number] 00:00:00 Test Item Value Reference Range Interpretation Comments GONORRHEA, NAAT (test code = 28058) NEGATIVE GC, AMPLIFIED, [id number] 00:00:00 Test Item Value Reference Range Interpretation Comments GONORRHEA, NAAT (test code = 57976) NEGATIVE HIV AB/AG COMBO RFLX [id number] 00:00:00 Test Item Value Reference Range Interpretation Comments HIV 1/2 4TH GEN, RFLX CONF (test NON-REACTIVE code = 3514) HIV AB/AG COMBO RFLX [id number] 00:00:00 Test Item Value Reference Range Interpretation Comments HIV 1/2 4TH GEN, RFLX CONF (test NON-REACTIVE code = 3514) [id number] 00:00:00 Test Item Value Reference Range Interpretation Comments RPR RESULT (test code = NON-REACTIVE 3501) RPR TITER (test code = 3500) NOT INDIC. TITER [id number] 00:00:00 Test Item Value Reference Range Interpretation Comments RPR RESULT (test code = NON-REACTIVE 3501) RPR TITER (test code = 3500) NOT INDIC. TITER [id number] 00:00:00 Test Item Value Reference Range Interpretation Comments RPR RESULT (test code = NON-REACTIVE 3501) RPR TITER (test code = 3500) NOT INDIC. TITER ACUTE HEPATITIS [id number] 00:00:00 Test Item Value Reference Range Interpretation Comments HEPATITIS A IgM (test code = NON-REACTIVE 69751) HEPATITIS B CORE IgM (test code NON-REACTIVE = 4644) HEPATITIS B SURF AG (test code = NON-REACTIVE 2739) HEPATITIS C ANTIBODY (test code NON-REACTIVE = 4675) INTERPRETATION HEPATITIS A: (NOTE) (test code = 2552) INTERPRETATION HEPATITIS B: (NOTE) (test code = 79382) INTERPRETATION HEPATITIS C: (NOTE) (test code = 12538) ACUTE HEPATITIS [id number] 00:00:00 Test Item Value Reference Range Interpretation Comments HEPATITIS A IgM (test code = NON-REACTIVE 40219) HEPATITIS B CORE IgM (test code NON-REACTIVE = 4644) HEPATITIS B SURF AG (test code = NON-REACTIVE 2739) HEPATITIS C ANTIBODY (test code NON-REACTIVE = 4675) INTERPRETATION HEPATITIS A: (NOTE) (test code = 2552) INTERPRETATION HEPATITIS B: (NOTE) (test code = 99110) INTERPRETATION HEPATITIS C: (NOTE) (test code = 25616) CHLAMYDIA, AMPLIFIED, [id number] 00:00:00 Test Item Value Reference Range Interpretation Comments CHLAMYDIA, NAAT (test code = 94655) NEGATIVE CHLAMYDIA, AMPLIFIED, [id number] 00:00:00 Test Item Value Reference Range Interpretation Comments CHLAMYDIA, NAAT (test code = 06552) NEGATIVE CHLAMYDIA, AMPLIFIED, [id number] 00:00:00 Test Item Value Reference Range Interpretation Comments CHLAMYDIA, NAAT (test code = 32720) NEGATIVE CHLAMYDIA, AMPLIFIED, [id number] 00:00:00 Test Item Value Reference Range Interpretation Comments CHLAMYDIA, NAAT (test code = 41774) NEGATIVE GC, AMPLIFIED, [id number] 00:00:00 Test Item Value Reference Range Interpretation Comments GONORRHEA, NAAT (test code = 90211) NEGATIVE GC, AMPLIFIED, [id number] 00:00:00 Test Item Value Reference Range Interpretation Comments GONORRHEA, NAAT (test code = 75856) NEGATIVE GC, AMPLIFIED, [id number] 00:00:00 Test Item Value Reference Range Interpretation Comments GONORRHEA, NAAT (test code = 09360) NEGATIVE GC, AMPLIFIED, [id number] 00:00:00 Test Item Value Reference Range Interpretation Comments GONORRHEA, NAAT (test code = 15077) NEGATIVE CULTURE, [id number] 00:00:00 Test Item Value Reference Range Interpretation Comments CULTURE, URINE (test SPECIMEN NUMBER: code = 32596) [id number] CULTURE, [id number] 00:00:00 Test Item Value Reference Range Interpretation Comments CULTURE, URINE (test SPECIMEN NUMBER: code = 40750) [id number] CULTURE, [id number] 00:00:00 Test Item Value Reference Range Interpretation Comments CULTURE, URINE (test SPECIMEN NUMBER: code = 42310) [id number] CULTURE, [id number] 00:00:00 Test Item Value Reference Range Interpretation Comments CULTURE, URINE (test SPECIMEN NUMBER: code = 03626) [id number] CULTURE, [id number] 00:00:00 Test Item Value Reference Range Interpretation Comments CULTURE, URINE (test SPECIMEN NUMBER: code = 95850) [id number] CULTURE, [id number] 00:00:00 Test Item Value Reference Range Interpretation Comments CULTURE, URINE (test SPECIMEN NUMBER: code = 05554) [id number] CULTURE, [id number] 00:00:00 Test Item Value Reference Range Interpretation Comments CULTURE, URINE (test SPECIMEN NUMBER: code = 84177) [id number] CULTURE, [id number] 00:00:00 Test Item Value Reference Range Interpretation Comments CULTURE, URINE (test SPECIMEN NUMBER: code = 96871) [id number] CULTURE, [id number] 00:00:00 Test Item Value Reference Range Interpretation Comments CULTURE, URINE (test SPECIMEN NUMBER: code = 03088) [id number] CULTURE, [id number] 00:00:00 Test Item Value Reference Range Interpretation Comments CULTURE, URINE (test SPECIMEN NUMBER: code = 43288) [id number] CULTURE, [id number] 00:00:00 Test Item Value Reference Range Interpretation Comments CULTURE, URINE (test SPECIMEN NUMBER: code = 97899) [id number] CULTURE, [id number] 00:00:00 Test Item Value Reference Range Interpretation Comments CULTURE, URINE (test SPECIMEN NUMBER: code = 74430) [id number] CULTURE, [id number] 00:00:00 Test Item Value Reference Range Interpretation Comments CULTURE, URINE (test SPECIMEN NUMBER: code = 75011) [id number] CULTURE, [id number] 00:00:00 Test Item Value Reference Range Interpretation Comments CULTURE, URINE (test SPECIMEN NUMBER: code = 94786) [id number] CULTURE, [id number] 00:00:00 Test Item Value Reference Range Interpretation Comments CULTURE, URINE (test SPECIMEN NUMBER: code = 96690) [id number] CULTURE, [id number] 00:00:00 Test Item Value Reference Range Interpretation Comments CULTURE, URINE (test SPECIMEN NUMBER: code = 47764) [id number] CULTURE, [id number] 00:00:00 Test Item Value Reference Range Interpretation Comments CULTURE, URINE (test SPECIMEN NUMBER: code = 37570) [id number] CULTURE, [id number] 00:00:00 Test Item Value Reference Range Interpretation Comments CULTURE, URINE (test SPECIMEN NUMBER: code = 73913) [id number] CULTURE, [id number] 00:00:00 Test Item Value Reference Range Interpretation Comments CULTURE, URINE (test SPECIMEN NUMBER: code = 20840) [id number] VAGINAL PATHOGENS DNA [id number] 00:00:00 Test Item Value Reference Range Interpretation Comments ABHAY SPECIES (test code = ) POSITIVE G. VAGINALIS (test code = ) POSITIVE T. VAGINALIS (test code = ) NEGATIVE VAGINAL PATHOGENS DNA [id number] 00:00:00 Test Item Value Reference Range Interpretation Comments ABHAY SPECIES (test code = 46364) POSITIVE G. VAGINALIS (test code = 92479) POSITIVE T. VAGINALIS (test code = 75706) NEGATIVE VAGINAL PATHOGENS DNA [id number] 00:00:00 Test Item Value Reference Range Interpretation Comments ABHAY SPECIES (test code = 69423) POSITIVE G. VAGINALIS (test code = 01106) POSITIVE T. VAGINALIS (test code = 67466) NEGATIVE VAGINAL PATHOGENS DNA [id number] 00:00:00 Test Item Value Reference Range Interpretation Comments ABHAY SPECIES (test code = 63416) POSITIVE G. VAGINALIS (test code = 28002) POSITIVE T. VAGINALIS (test code = 34206) NEGATIVE VAGINAL PATHOGENS DNA [id number] 00:00:00 Test Item Value Reference Range Interpretation Comments ABHAY SPECIES (test code = 27478) POSITIVE G. VAGINALIS (test code = 70366) POSITIVE T. VAGINALIS (test code = 73572) NEGATIVE VAGINAL PATHOGENS DNA [id number] 00:00:00 Test Item Value Reference Range Interpretation Comments ABHAY SPECIES (test code = 67346) POSITIVE G. VAGINALIS (test code = 85086) POSITIVE T. VAGINALIS (test code = 98794) NEGATIVE VAGINAL PATHOGENS DNA [id number] 00:00:00 Test Item Value Reference Range Interpretation Comments ABHAY SPECIES (test code = 69095) POSITIVE G. VAGINALIS (test code = 13034) POSITIVE T. VAGINALIS (test code = 57341) NEGATIVE VAGINAL PATHOGENS DNA [id number] 00:00:00 Test Item Value Reference Range Interpretation Comments ABHAY SPECIES (test code = 72759) POSITIVE G. VAGINALIS (test code = 22411) POSITIVE T. VAGINALIS (test code = 20000) NEGATIVE VAGINAL PATHOGENS DNA [id number] 00:00:00 Test Item Value Reference Range Interpretation Comments ABHAY SPECIES (test code = 88470) POSITIVE G. VAGINALIS (test code = 73915) POSITIVE T. VAGINALIS (test code = 84743) NEGATIVE VAGINAL PATHOGENS DNA [id number] 00:00:00 Test Item Value Reference Range Interpretation Comments ABHAY SPECIES (test code = 08074) POSITIVE G. VAGINALIS (test code = 57252) POSITIVE T. VAGINALIS (test code = ) NEGATIVE VAGINAL PATHOGENS DNA [id number] 00:00:00 Test Item Value Reference Range Interpretation Comments ABHAY SPECIES (test code = 20865) POSITIVE G. VAGINALIS (test code = 16940) POSITIVE T. VAGINALIS (test code = 91055) NEGATIVE VAGINAL PATHOGENS DNA [id number] 00:00:00 Test Item Value Reference Range Interpretation Comments ABHAY SPECIES (test code = 90454) POSITIVE G. VAGINALIS (test code = 65845) POSITIVE T. VAGINALIS (test code = 98040) NEGATIVE VAGINAL PATHOGENS DNA [id number] 00:00:00 Test Item Value Reference Range Interpretation Comments ABHAY SPECIES (test code = 90800) POSITIVE G. VAGINALIS (test code = 26312) POSITIVE T. VAGINALIS (test code = 23144) NEGATIVE VAGINAL PATHOGENS DNA [id number] 00:00:00 Test Item Value Reference Range Interpretation Comments ABHAY SPECIES (test code = 12889) POSITIVE G. VAGINALIS (test code = 38925) POSITIVE T. VAGINALIS (test code = 23146) NEGATIVE VAGINAL PATHOGENS DNA [id number] 00:00:00 Test Item Value Reference Range Interpretation Comments ABHAY SPECIES (test code = 50912) POSITIVE G. VAGINALIS (test code = 14051) POSITIVE T. VAGINALIS (test code = 01140) NEGATIVE VAGINAL PATHOGENS DNA [id number] 00:00:00 Test Item Value Reference Range Interpretation Comments ABHAY SPECIES (test code = 94983) POSITIVE G. VAGINALIS (test code = 08163) POSITIVE T. VAGINALIS (test code = 96426) NEGATIVE VAGINAL PATHOGENS DNA [id number] 00:00:00 Test Item Value Reference Range Interpretation Comments ABHAY SPECIES (test code = 39512) POSITIVE G. VAGINALIS (test code = 84083) POSITIVE T. VAGINALIS (test code = 35984) NEGATIVE VAGINAL PATHOGENS DNA [id number] 00:00:00 Test Item Value Reference Range Interpretation Comments ABHAY SPECIES (test code = 18137) POSITIVE G. VAGINALIS (test code = 78311) POSITIVE T. VAGINALIS (test code = 04117) NEGATIVE VAGINAL PATHOGENS DNA [id number] 00:00:00 Test Item Value Reference Range Interpretation Comments ABHAY SPECIES (test code = 34971) POSITIVE G. VAGINALIS (test code = 07002) POSITIVE T. VAGINALIS (test code = 93133) NEGATIVE CULTURE, [id number] 00:00:00 Test Item Value Reference Range Interpretation Comments CULTURE, URINE (test SPECIMEN NUMBER: code = 67679) [id number] CULTURE, [id number] 00:00:00 Test Item Value Reference Range Interpretation Comments CULTURE, URINE (test SPECIMEN NUMBER: code = 93218) [id number] CULTURE, [id number] 00:00:00 Test Item Value Reference Range Interpretation Comments CULTURE, URINE (test SPECIMEN NUMBER: code = 84982) [id number] CULTURE, [id number] 00:00:00 Test Item Value Reference Range Interpretation Comments CULTURE, URINE (test SPECIMEN NUMBER: code = 14347) [id number] CULTURE, [id number] 00:00:00 Test Item Value Reference Range Interpretation Comments CULTURE, URINE (test SPECIMEN NUMBER: code = 44400) [id number] CULTURE, [id number] 00:00:00 Test Item Value Reference Range Interpretation Comments CULTURE, URINE (test SPECIMEN NUMBER: code = 30344) [id number] CULTURE, [id number] 00:00:00 Test Item Value Reference Range Interpretation Comments CULTURE, URINE (test SPECIMEN NUMBER: code = 59540) [id number] CULTURE, [id number] 00:00:00 Test Item Value Reference Range Interpretation Comments CULTURE, URINE (test SPECIMEN NUMBER: code = 43681) [id number] CULTURE, [id number] 00:00:00 Test Item Value Reference Range Interpretation Comments CULTURE, URINE (test SPECIMEN NUMBER: code = 85396) [id number] CULTURE, [id number] 00:00:00 Test Item Value Reference Range Interpretation Comments CULTURE, URINE (test SPECIMEN NUMBER: code = 57896) [id number] CULTURE, [id number] 00:00:00 Test Item Value Reference Range Interpretation Comments CULTURE, URINE (test SPECIMEN NUMBER: code = 91380) [id number] CULTURE, [id number] 00:00:00 Test Item Value Reference Range Interpretation Comments CULTURE, URINE (test SPECIMEN NUMBER: code = 11385) [id number] CULTURE, [id number] 00:00:00 Test Item Value Reference Range Interpretation Comments CULTURE, URINE (test SPECIMEN NUMBER: code = 89549) [id number] CULTURE, [id number] 00:00:00 Test Item Value Reference Range Interpretation Comments CULTURE, URINE (test SPECIMEN NUMBER: code = 06416) [id number] CULTURE, [id number] 00:00:00 Test Item Value Reference Range Interpretation Comments CULTURE, URINE (test SPECIMEN NUMBER: code = 88018) [id number] CULTURE, [id number] 00:00:00 Test Item Value Reference Range Interpretation Comments CULTURE, URINE (test SPECIMEN NUMBER: code = 55924) [id number] CULTURE, [id number] 00:00:00 Test Item Value Reference Range Interpretation Comments CULTURE, URINE (test SPECIMEN NUMBER: code = 93626) [id number] CULTURE, [id number] 00:00:00 Test Item Value Reference Range Interpretation Comments CULTURE, URINE (test SPECIMEN NUMBER: code = 14585) [id number] CULTURE, [id number] 00:00:00 Test Item Value Reference Range Interpretation Comments CULTURE, URINE (test SPECIMEN NUMBER: code = 55030) [id number] GC AND CHLAMYDIA, AMPLIFIED, [id number] 00:00:00 Test Item Value Reference Range Interpretation Comments GONORRHEA, TMA (test code = 57196) NEGATIVE CHLAMYDIA, TMA (test code = 40477) NEGATIVE GC AND CHLAMYDIA, AMPLIFIED, [id number] 00:00:00 Test Item Value Reference Range Interpretation Comments GONORRHEA, TMA (test code = 16014) NEGATIVE CHLAMYDIA, TMA (test code = 12811) NEGATIVE GC AND CHLAMYDIA, AMPLIFIED, [id number] 00:00:00 Test Item Value Reference Range Interpretation Comments GONORRHEA, TMA (test code = 38260) NEGATIVE CHLAMYDIA, TMA (test code = 87207) NEGATIVE GC AND CHLAMYDIA, AMPLIFIED, [id number] 00:00:00 Test Item Value Reference Range Interpretation Comments GONORRHEA, TMA (test code = 35552) NEGATIVE CHLAMYDIA, TMA (test code = 99667) NEGATIVE GC AND CHLAMYDIA, AMPLIFIED, [id number] 00:00:00 Test Item Value Reference Range Interpretation Comments GONORRHEA, TMA (test code = 13190) NEGATIVE CHLAMYDIA, TMA (test code = 18178) NEGATIVE GC AND CHLAMYDIA, AMPLIFIED, [id number] 00:00:00 Test Item Value Reference Range Interpretation Comments GONORRHEA, TMA (test code = 41829) NEGATIVE CHLAMYDIA, TMA (test code = 82318) NEGATIVE GC AND CHLAMYDIA, AMPLIFIED, [id number] 00:00:00 Test Item Value Reference Range Interpretation Comments GONORRHEA, TMA (test code = 38426) NEGATIVE CHLAMYDIA, TMA (test code = 54399) NEGATIVE GC AND CHLAMYDIA, AMPLIFIED, [id number] 00:00:00 Test Item Value Reference Range Interpretation Comments GONORRHEA, TMA (test code = 85813) NEGATIVE CHLAMYDIA, TMA (test code = 28477) NEGATIVE GC AND CHLAMYDIA, AMPLIFIED, [id number] 00:00:00 Test Item Value Reference Range Interpretation Comments GONORRHEA, TMA (test code = 07364) NEGATIVE CHLAMYDIA, TMA (test code = 23690) NEGATIVE GC AND CHLAMYDIA, AMPLIFIED, [id number] 00:00:00 Test Item Value Reference Range Interpretation Comments GONORRHEA, TMA (test code = 28887) NEGATIVE CHLAMYDIA, TMA (test code = 76056) NEGATIVE GC AND CHLAMYDIA, AMPLIFIED, [id number] 00:00:00 Test Item Value Reference Range Interpretation Comments GONORRHEA, TMA (test code = 34100) NEGATIVE CHLAMYDIA, TMA (test code = 61915) NEGATIVE GC AND CHLAMYDIA, AMPLIFIED, [id number] 00:00:00 Test Item Value Reference Range Interpretation Comments GONORRHEA, TMA (test code = 20513) NEGATIVE CHLAMYDIA, TMA (test code = 35116) NEGATIVE GC AND CHLAMYDIA, AMPLIFIED, [id number] 00:00:00 Test Item Value Reference Range Interpretation Comments GONORRHEA, TMA (test code = 61924) NEGATIVE CHLAMYDIA, TMA (test code = 97137) NEGATIVE GC AND CHLAMYDIA, AMPLIFIED, [id number] 00:00:00 Test Item Value Reference Range Interpretation Comments GONORRHEA, TMA (test code = 20914) NEGATIVE CHLAMYDIA, TMA (test code = 72624) NEGATIVE GC AND CHLAMYDIA, AMPLIFIED, [id number] 00:00:00 Test Item Value Reference Range Interpretation Comments GONORRHEA, TMA (test code = 81233) NEGATIVE CHLAMYDIA, TMA (test code = 52504) NEGATIVE GC AND CHLAMYDIA, AMPLIFIED, [id number] 00:00:00 Test Item Value Reference Range Interpretation Comments GONORRHEA, TMA (test code = 83754) NEGATIVE CHLAMYDIA, TMA (test code = 81474) NEGATIVE GC AND CHLAMYDIA, AMPLIFIED, [id number] 00:00:00 Test Item Value Reference Range Interpretation Comments GONORRHEA, TMA (test code = 59813) NEGATIVE CHLAMYDIA, TMA (test code = 52580) NEGATIVE GC AND CHLAMYDIA, AMPLIFIED, [id number] 00:00:00 Test Item Value Reference Range Interpretation Comments GONORRHEA, TMA (test code = 25711) NEGATIVE CHLAMYDIA, TMA (test code = 85858) NEGATIVE GC AND CHLAMYDIA, AMPLIFIED, [id number] 00:00:00 Test Item Value Reference Range Interpretation Comments GONORRHEA, TMA (test code = 81744) NEGATIVE CHLAMYDIA, TMA (test code = 53763) NEGATIVE VAGINAL PATHOGENS DNA [id number] 00:00:00 Test Item Value Reference Range Interpretation Comments ABHAY SPECIES (test code = 92672) NEGATIVE G. VAGINALIS (test code = 44374) POSITIVE T. VAGINALIS (test code = 29854) NEGATIVE VAGINAL PATHOGENS DNA [id number] 00:00:00 Test Item Value Reference Range Interpretation Comments ABHAY SPECIES (test code = 93711) NEGATIVE G. VAGINALIS (test code = 38465) POSITIVE T. VAGINALIS (test code = 38598) NEGATIVE VAGINAL PATHOGENS DNA [id number] 00:00:00 Test Item Value Reference Range Interpretation Comments ABHAY SPECIES (test code = 79070) NEGATIVE G. VAGINALIS (test code = 07695) POSITIVE T. VAGINALIS (test code = 63780) NEGATIVE VAGINAL PATHOGENS DNA [id number] 00:00:00 Test Item Value Reference Range Interpretation Comments ABHAY SPECIES (test code = 62230) NEGATIVE G. VAGINALIS (test code = 95790) POSITIVE T. VAGINALIS (test code = 83676) NEGATIVE VAGINAL PATHOGENS DNA [id number] 00:00:00 Test Item Value Reference Range Interpretation Comments ABHAY SPECIES (test code = 19187) NEGATIVE G. VAGINALIS (test code = 04680) POSITIVE T. VAGINALIS (test code = 93358) NEGATIVE VAGINAL PATHOGENS DNA [id number] 00:00:00 Test Item Value Reference Range Interpretation Comments ABHAY SPECIES (test code = 86277) NEGATIVE G. VAGINALIS (test code = 79323) POSITIVE T. VAGINALIS (test code = 00527) NEGATIVE VAGINAL PATHOGENS DNA [id number] 00:00:00 Test Item Value Reference Range Interpretation Comments ABHAY SPECIES (test code = 12898) NEGATIVE G. VAGINALIS (test code = 18256) POSITIVE T. VAGINALIS (test code = 97580) NEGATIVE VAGINAL PATHOGENS DNA [id number] 00:00:00 Test Item Value Reference Range Interpretation Comments ABHAY SPECIES (test code = 19721) NEGATIVE G. VAGINALIS (test code = 59816) POSITIVE T. VAGINALIS (test code = 65543) NEGATIVE VAGINAL PATHOGENS DNA [id number] 00:00:00 Test Item Value Reference Range Interpretation Comments ABHAY SPECIES (test code = ) NEGATIVE G. VAGINALIS (test code = 94455) POSITIVE T. VAGINALIS (test code = 72831) NEGATIVE VAGINAL PATHOGENS DNA [id number] 00:00:00 Test Item Value Reference Range Interpretation Comments ABHAY SPECIES (test code = ) NEGATIVE G. VAGINALIS (test code = 64684) POSITIVE T. VAGINALIS (test code = 64000) NEGATIVE VAGINAL PATHOGENS DNA [id number] 00:00:00 Test Item Value Reference Range Interpretation Comments ABHAY SPECIES (test code = ) NEGATIVE G. VAGINALIS (test code = 93654) POSITIVE T. VAGINALIS (test code = 14308) NEGATIVE VAGINAL PATHOGENS DNA [id number] 00:00:00 Test Item Value Reference Range Interpretation Comments ABHAY SPECIES (test code = 67461) NEGATIVE G. VAGINALIS (test code = 17536) POSITIVE T. VAGINALIS (test code = 55427) NEGATIVE VAGINAL PATHOGENS DNA [id number] 00:00:00 Test Item Value Reference Range Interpretation Comments ABHAY SPECIES (test code = 13653) NEGATIVE G. VAGINALIS (test code = 81669) POSITIVE T. VAGINALIS (test code = 74642) NEGATIVE VAGINAL PATHOGENS DNA [id number] 00:00:00 Test Item Value Reference Range Interpretation Comments ABHAY SPECIES (test code = 11513) NEGATIVE G. VAGINALIS (test code = 12559) POSITIVE T. VAGINALIS (test code = 71994) NEGATIVE VAGINAL PATHOGENS DNA [id number] 00:00:00 Test Item Value Reference Range Interpretation Comments ABHAY SPECIES (test code = 09700) NEGATIVE G. VAGINALIS (test code = 29956) POSITIVE T. VAGINALIS (test code = 86019) NEGATIVE VAGINAL PATHOGENS DNA [id number] 00:00:00 Test Item Value Reference Range Interpretation Comments ABHAY SPECIES (test code = 57193) NEGATIVE G. VAGINALIS (test code = 93602) POSITIVE T. VAGINALIS (test code = 44513) NEGATIVE VAGINAL PATHOGENS DNA [id number] 00:00:00 Test Item Value Reference Range Interpretation Comments ABHAY SPECIES (test code = 51889) NEGATIVE G. VAGINALIS (test code = 51971) POSITIVE T. VAGINALIS (test code = 76285) NEGATIVE VAGINAL PATHOGENS DNA [id number] 00:00:00 Test Item Value Reference Range Interpretation Comments ABHAY SPECIES (test code = 23193) NEGATIVE G. VAGINALIS (test code = 98763) POSITIVE T. VAGINALIS (test code = 92037) NEGATIVE VAGINAL PATHOGENS DNA [id number] 00:00:00 Test Item Value Reference Range Interpretation Comments ABHAY SPECIES (test code = ) NEGATIVE G. VAGINALIS (test code = 47873) POSITIVE T. VAGINALIS (test code = 72695) NEGATIVE GC AND CHLAMYDIA, AMPLIFIED, [id number] 00:00:00 Test Item Value Reference Range Interpretation Comments GONORRHEA, TMA (test code = 07548) NEGATIVE CHLAMYDIA, TMA (test code = 70452) NEGATIVE GC AND CHLAMYDIA, AMPLIFIED, [id number] 00:00:00 Test Item Value Reference Range Interpretation Comments GONORRHEA, TMA (test code = 44364) NEGATIVE CHLAMYDIA, TMA (test code = 66573) NEGATIVE GC AND CHLAMYDIA, AMPLIFIED, [id number] 00:00:00 Test Item Value Reference Range Interpretation Comments GONORRHEA, TMA (test code = 30274) NEGATIVE CHLAMYDIA, TMA (test code = 15965) NEGATIVE GC AND CHLAMYDIA, AMPLIFIED, [id number] 00:00:00 Test Item Value Reference Range Interpretation Comments GONORRHEA, TMA (test code = 12529) NEGATIVE CHLAMYDIA, TMA (test code = 07174) NEGATIVE GC AND CHLAMYDIA, AMPLIFIED, [id number] 00:00:00 Test Item Value Reference Range Interpretation Comments GONORRHEA, TMA (test code = 91501) NEGATIVE CHLAMYDIA, TMA (test code = 86419) NEGATIVE GC AND CHLAMYDIA, AMPLIFIED, [id number] 00:00:00 Test Item Value Reference Range Interpretation Comments GONORRHEA, TMA (test code = 35828) NEGATIVE CHLAMYDIA, TMA (test code = 93712) NEGATIVE GC AND CHLAMYDIA, AMPLIFIED, [id number] 00:00:00 Test Item Value Reference Range Interpretation Comments GONORRHEA, TMA (test code = 68111) NEGATIVE CHLAMYDIA, TMA (test code = 75868) NEGATIVE GC AND CHLAMYDIA, AMPLIFIED, [id number] 00:00:00 Test Item Value Reference Range Interpretation Comments GONORRHEA, TMA (test code = 09539) NEGATIVE CHLAMYDIA, TMA (test code = 60401) NEGATIVE GC AND CHLAMYDIA, AMPLIFIED, [id number] 00:00:00 Test Item Value Reference Range Interpretation Comments GONORRHEA, TMA (test code = 66235) NEGATIVE CHLAMYDIA, TMA (test code = 93501) NEGATIVE GC AND CHLAMYDIA, AMPLIFIED, [id number] 00:00:00 Test Item Value Reference Range Interpretation Comments GONORRHEA, TMA (test code = 42183) NEGATIVE CHLAMYDIA, TMA (test code = 14394) NEGATIVE GC AND CHLAMYDIA, AMPLIFIED, [id number] 00:00:00 Test Item Value Reference Range Interpretation Comments GONORRHEA, TMA (test code = 05720) NEGATIVE CHLAMYDIA, TMA (test code = 80325) NEGATIVE GC AND CHLAMYDIA, AMPLIFIED, [id number] 00:00:00 Test Item Value Reference Range Interpretation Comments GONORRHEA, TMA (test code = 89481) NEGATIVE CHLAMYDIA, TMA (test code = 68386) NEGATIVE GC AND CHLAMYDIA, AMPLIFIED, [id number] 00:00:00 Test Item Value Reference Range Interpretation Comments GONORRHEA, TMA (test code = 63854) NEGATIVE CHLAMYDIA, TMA (test code = 18925) NEGATIVE GC AND CHLAMYDIA, AMPLIFIED, [id number] 00:00:00 Test Item Value Reference Range Interpretation Comments GONORRHEA, TMA (test code = 80571) NEGATIVE CHLAMYDIA, TMA (test code = 68259) NEGATIVE GC AND CHLAMYDIA, AMPLIFIED, [id number] 00:00:00 Test Item Value Reference Range Interpretation Comments GONORRHEA, TMA (test code = 71661) NEGATIVE CHLAMYDIA, TMA (test code = 26767) NEGATIVE GC AND CHLAMYDIA, AMPLIFIED, [id number] 00:00:00 Test Item Value Reference Range Interpretation Comments GONORRHEA, TMA (test code = 56419) NEGATIVE CHLAMYDIA, TMA (test code = 67272) NEGATIVE GC AND CHLAMYDIA, AMPLIFIED, [id number] 00:00:00 Test Item Value Reference Range Interpretation Comments GONORRHEA, TMA (test code = 38979) NEGATIVE CHLAMYDIA, TMA (test code = 54025) NEGATIVE GC AND CHLAMYDIA, AMPLIFIED, [id number] 00:00:00 Test Item Value Reference Range Interpretation Comments GONORRHEA, TMA (test code = 85050) NEGATIVE CHLAMYDIA, TMA (test code = 64684) NEGATIVE GC AND CHLAMYDIA, AMPLIFIED, [id number] 00:00:00 Test Item Value Reference Range Interpretation Comments GONORRHEA, TMA (test code = 18653) NEGATIVE CHLAMYDIA, TMA (test code = 30860) NEGATIVE CULTURE, [id number] 00:00:00 Test Item Value Reference Range Interpretation Comments CULTURE, URINE (test SPECIMEN NUMBER: code = 70829) [id number] CULTURE, [id number] 00:00:00 Test Item Value Reference Range Interpretation Comments CULTURE, URINE (test SPECIMEN NUMBER: code = 46797) [id number] CULTURE, [id number] 00:00:00 Test Item Value Reference Range Interpretation Comments CULTURE, URINE (test SPECIMEN NUMBER: code = 58197) [id number] CULTURE, [id number] 00:00:00 Test Item Value Reference Range Interpretation Comments CULTURE, URINE (test SPECIMEN NUMBER: code = 68278) [id number] CULTURE, [id number] 00:00:00 Test Item Value Reference Range Interpretation Comments CULTURE, URINE (test SPECIMEN NUMBER: code = 52668) [id number] CULTURE, [id number] 00:00:00 Test Item Value Reference Range Interpretation Comments CULTURE, URINE (test SPECIMEN NUMBER: code = 89421) [id number] CULTURE, [id number] 00:00:00 Test Item Value Reference Range Interpretation Comments CULTURE, URINE (test SPECIMEN NUMBER: code = 64197) [id number] CULTURE, [id number] 00:00:00 Test Item Value Reference Range Interpretation Comments CULTURE, URINE (test SPECIMEN NUMBER: code = 51204) [id number] CULTURE, [id number] 00:00:00 Test Item Value Reference Range Interpretation Comments CULTURE, URINE (test SPECIMEN NUMBER: code = 11552) [id number] CULTURE, [id number] 00:00:00 Test Item Value Reference Range Interpretation Comments CULTURE, URINE (test SPECIMEN NUMBER: code = 99345) [id number] CULTURE, [id number] 00:00:00 Test Item Value Reference Range Interpretation Comments CULTURE, URINE (test SPECIMEN NUMBER: code = 36581) [id number] CULTURE, [id number] 00:00:00 Test Item Value Reference Range Interpretation Comments CULTURE, URINE (test SPECIMEN NUMBER: code = 62820) [id number] CULTURE, [id number] 00:00:00 Test Item Value Reference Range Interpretation Comments CULTURE, URINE (test SPECIMEN NUMBER: code = 68345) [id number] CULTURE, [id number] 00:00:00 Test Item Value Reference Range Interpretation Comments CULTURE, URINE (test SPECIMEN NUMBER: code = 72454) [id number] CULTURE, [id number] 00:00:00 Test Item Value Reference Range Interpretation Comments CULTURE, URINE (test SPECIMEN NUMBER: code = 03815) [id number] CULTURE, [id number] 00:00:00 Test Item Value Reference Range Interpretation Comments CULTURE, URINE (test SPECIMEN NUMBER: code = 31340) [id number] CULTURE, [id number] 00:00:00 Test Item Value Reference Range Interpretation Comments CULTURE, URINE (test SPECIMEN NUMBER: code = 83690) [id number] CULTURE, [id number] 00:00:00 Test Item Value Reference Range Interpretation Comments CULTURE, URINE (test SPECIMEN NUMBER: code = 89276) [id number] CULTURE, [id number] 00:00:00 Test Item Value Reference Range Interpretation Comments CULTURE, URINE (test SPECIMEN NUMBER: code = 82830) [id number] VAGINAL PATHOGENS DNA [id number] 00:00:00 Test Item Value Reference Range Interpretation Comments ABHAY SPECIES (test code = ) NEGATIVE G. VAGINALIS (test code = ) POSITIVE T. VAGINALIS (test code = 80618) NEGATIVE VAGINAL PATHOGENS DNA [id number] 00:00:00 Test Item Value Reference Range Interpretation Comments ABHAY SPECIES (test code = 69453) NEGATIVE G. VAGINALIS (test code = 68641) POSITIVE T. VAGINALIS (test code = 22294) NEGATIVE VAGINAL PATHOGENS DNA [id number] 00:00:00 Test Item Value Reference Range Interpretation Comments ABHAY SPECIES (test code = 30899) NEGATIVE G. VAGINALIS (test code = 79654) POSITIVE T. VAGINALIS (test code = 74932) NEGATIVE VAGINAL PATHOGENS DNA [id number] 00:00:00 Test Item Value Reference Range Interpretation Comments ABHAY SPECIES (test code = 41330) NEGATIVE G. VAGINALIS (test code = 41317) POSITIVE T. VAGINALIS (test code = 45087) NEGATIVE VAGINAL PATHOGENS DNA [id number] 00:00:00 Test Item Value Reference Range Interpretation Comments ABHAY SPECIES (test code = 79360) NEGATIVE G. VAGINALIS (test code = 63697) POSITIVE T. VAGINALIS (test code = 20342) NEGATIVE VAGINAL PATHOGENS DNA [id number] 00:00:00 Test Item Value Reference Range Interpretation Comments ABHAY SPECIES (test code = 72601) NEGATIVE G. VAGINALIS (test code = 65041) POSITIVE T. VAGINALIS (test code = 68888) NEGATIVE VAGINAL PATHOGENS DNA [id number] 00:00:00 Test Item Value Reference Range Interpretation Comments ABHAY SPECIES (test code = 16452) NEGATIVE G. VAGINALIS (test code = 98651) POSITIVE T. VAGINALIS (test code = 38472) NEGATIVE VAGINAL PATHOGENS DNA [id number] 00:00:00 Test Item Value Reference Range Interpretation Comments ABHAY SPECIES (test code = 84127) NEGATIVE G. VAGINALIS (test code = 43456) POSITIVE T. VAGINALIS (test code = 37887) NEGATIVE VAGINAL PATHOGENS DNA [id number] 00:00:00 Test Item Value Reference Range Interpretation Comments ABHAY SPECIES (test code = 03358) NEGATIVE G. VAGINALIS (test code = 59969) POSITIVE T. VAGINALIS (test code = 92476) NEGATIVE VAGINAL PATHOGENS DNA [id number] 00:00:00 Test Item Value Reference Range Interpretation Comments ABHAY SPECIES (test code = 41392) NEGATIVE G. VAGINALIS (test code = 39676) POSITIVE T. VAGINALIS (test code = 44862) NEGATIVE VAGINAL PATHOGENS DNA [id number] 00:00:00 Test Item Value Reference Range Interpretation Comments ABHAY SPECIES (test code = 27023) NEGATIVE G. VAGINALIS (test code = 75951) POSITIVE T. VAGINALIS (test code = 17347) NEGATIVE VAGINAL PATHOGENS DNA [id number] 00:00:00 Test Item Value Reference Range Interpretation Comments ABHAY SPECIES (test code = 53261) NEGATIVE G. VAGINALIS (test code = 58724) POSITIVE T. VAGINALIS (test code = 88354) NEGATIVE VAGINAL PATHOGENS DNA [id number] 00:00:00 Test Item Value Reference Range Interpretation Comments ABHAY SPECIES (test code = 75955) NEGATIVE G. VAGINALIS (test code = 91181) POSITIVE T. VAGINALIS (test code = 54784) NEGATIVE VAGINAL PATHOGENS DNA [id number] 00:00:00 Test Item Value Reference Range Interpretation Comments ABHAY SPECIES (test code = 29588) NEGATIVE G. VAGINALIS (test code = 84810) POSITIVE T. VAGINALIS (test code = 46575) NEGATIVE VAGINAL PATHOGENS DNA [id number] 00:00:00 Test Item Value Reference Range Interpretation Comments ABHAY SPECIES (test code = 39356) NEGATIVE G. VAGINALIS (test code = 55635) POSITIVE T. VAGINALIS (test code = 12841) NEGATIVE VAGINAL PATHOGENS DNA [id number] 00:00:00 Test Item Value Reference Range Interpretation Comments ABHAY SPECIES (test code = 16153) NEGATIVE G. VAGINALIS (test code = 93675) POSITIVE T. VAGINALIS (test code = 69399) NEGATIVE VAGINAL PATHOGENS DNA [id number] 00:00:00 Test Item Value Reference Range Interpretation Comments ABHAY SPECIES (test code = 43999) NEGATIVE G. VAGINALIS (test code = 60578) POSITIVE T. VAGINALIS (test code = 57948) NEGATIVE VAGINAL PATHOGENS DNA [id number] 00:00:00 Test Item Value Reference Range Interpretation Comments ABHAY SPECIES (test code = 17953) NEGATIVE G. VAGINALIS (test code = 24127) POSITIVE T. VAGINALIS (test code = 27422) NEGATIVE VAGINAL PATHOGENS DNA [id number] 00:00:00 Test Item Value Reference Range Interpretation Comments ABHAY SPECIES (test code = 94658) NEGATIVE G. VAGINALIS (test code = 86725) POSITIVE T. VAGINALIS (test code = 75376) NEGATIVE CULTURE, HERPES [id number] 00:00:00 Test Item Value Reference Range Interpretation Comments SPECIMEN SOURCE (test code TEST NOT PERFORMED = 51410) HERPES CULTURE (test code TEST NOT PERFORMED = 3533) CULTURE, HERPES [id number] 00:00:00 Test Item Value Reference Range Interpretation Comments SPECIMEN SOURCE (test code TEST NOT PERFORMED = 16429) HERPES CULTURE (test code TEST NOT PERFORMED = 3533) CULTURE, HERPES [id number] 00:00:00 Test Item Value Reference Range Interpretation Comments SPECIMEN SOURCE (test code TEST NOT PERFORMED = 51654) HERPES CULTURE (test code TEST NOT PERFORMED = 3533) CULTURE, HERPES [id number] 00:00:00 Test Item Value Reference Range Interpretation Comments SPECIMEN SOURCE (test code TEST NOT PERFORMED = 80115) HERPES CULTURE (test code TEST NOT PERFORMED = 3533) CULTURE, HERPES [id number] 00:00:00 Test Item Value Reference Range Interpretation Comments SPECIMEN SOURCE (test code TEST NOT PERFORMED = 41037) HERPES CULTURE (test code TEST NOT PERFORMED = 3533) CULTURE, HERPES [id number] 00:00:00 Test Item Value Reference Range Interpretation Comments SPECIMEN SOURCE (test code TEST NOT PERFORMED = 75899) HERPES CULTURE (test code TEST NOT PERFORMED = 3533) CULTURE, HERPES [id number] 00:00:00 Test Item Value Reference Range Interpretation Comments SPECIMEN SOURCE (test code TEST NOT PERFORMED = 06936) HERPES CULTURE (test code TEST NOT PERFORMED = 3533) CULTURE, HERPES [id number] 00:00:00 Test Item Value Reference Range Interpretation Comments SPECIMEN SOURCE (test code TEST NOT PERFORMED = 75680) HERPES CULTURE (test code TEST NOT PERFORMED = 3533) CULTURE, HERPES [id number] 00:00:00 Test Item Value Reference Range Interpretation Comments SPECIMEN SOURCE (test code TEST NOT PERFORMED = 27593) HERPES CULTURE (test code TEST NOT PERFORMED = 3533) CULTURE, HERPES [id number] 00:00:00 Test Item Value Reference Range Interpretation Comments SPECIMEN SOURCE (test code TEST NOT PERFORMED = 51906) HERPES CULTURE (test code TEST NOT PERFORMED = 3533) CULTURE, HERPES [id number] 00:00:00 Test Item Value Reference Range Interpretation Comments SPECIMEN SOURCE (test code TEST NOT PERFORMED = 23870) HERPES CULTURE (test code TEST NOT PERFORMED = 3533) CULTURE, HERPES [id number] 00:00:00 Test Item Value Reference Range Interpretation Comments SPECIMEN SOURCE (test code TEST NOT PERFORMED = 59951) HERPES CULTURE (test code TEST NOT PERFORMED = 3533) CULTURE, HERPES [id number] 00:00:00 Test Item Value Reference Range Interpretation Comments SPECIMEN SOURCE (test code TEST NOT PERFORMED = 71013) HERPES CULTURE (test code TEST NOT PERFORMED = 3533) CULTURE, HERPES [id number] 00:00:00 Test Item Value Reference Range Interpretation Comments SPECIMEN SOURCE (test code TEST NOT PERFORMED = 92042) HERPES CULTURE (test code TEST NOT PERFORMED = 3533) CULTURE, HERPES [id number] 00:00:00 Test Item Value Reference Range Interpretation Comments SPECIMEN SOURCE (test code TEST NOT PERFORMED = 88086) HERPES CULTURE (test code TEST NOT PERFORMED = 3533) CULTURE, HERPES [id number] 00:00:00 Test Item Value Reference Range Interpretation Comments SPECIMEN SOURCE (test code TEST NOT PERFORMED = 42975) HERPES CULTURE (test code TEST NOT PERFORMED = 3533) CULTURE, HERPES [id number] 00:00:00 Test Item Value Reference Range Interpretation Comments SPECIMEN SOURCE (test code TEST NOT PERFORMED = 90290) HERPES CULTURE (test code TEST NOT PERFORMED = 3533) CULTURE, HERPES [id number] 00:00:00 Test Item Value Reference Range Interpretation Comments SPECIMEN SOURCE (test code TEST NOT PERFORMED = 60651) HERPES CULTURE (test code TEST NOT PERFORMED = 3533) CULTURE, HERPES [id number] 00:00:00 Test Item Value Reference Range Interpretation Comments SPECIMEN SOURCE (test code TEST NOT PERFORMED = 29050) HERPES CULTURE (test code TEST NOT PERFORMED = 3533) PAP TEST, THINPREP, [id number] 00:00:00 Test Item Value Reference Range Interpretation Comments SOURCE: (test code = Cervical/Endocervical 8001) SLIDES: (test code = 1 8011) LMP: (test code = 8021) 10/10/2018 SPECIMEN ADEQUACY: (NOTE) (test code = 22058) INTERPRETATION: (test NILM/NO EPITH. code = 36497) ABNORMALITY;SEE BELOW MONITOR AND STORAGE BIN TENDER: (test RENAE GLENZ,CT(ASCP) code = 8101) LOCATION: (test code = (NOTE) 30441) CPT: (test code = 8140) (NOTE) HIV AB/AG COMBO RFLX [id number] 00:00:00 Test Item Value Reference Range Interpretation Comments HIV 1/2 4TH GEN, RFLX CONF (test NON-REACTIVE code = 3514) HIV AB/AG COMBO RFLX [id number] 00:00:00 Test Item Value Reference Range Interpretation Comments HIV 1/2 4TH GEN, RFLX CONF (test NON-REACTIVE code = 3514) HPV HIGH RISK WITH GENOTYPE, [id number] 00:00:00 Test Item Value Reference Range Interpretation Comments HPV HIGH RISK INTERP (test code = NEGATIVE 90121) HPV 16 (test code = 21679) NEGATIVE HPV 18 (test code = 64411) NEGATIVE HPV, HR, OTHER GENOTYPES (test code NEGATIVE = 06358) [id number] 00:00:00 Test Item Value Reference Range Interpretation Comments TSH, THIRD GENERATION (test code 2.250 UIU/ML = 2821) [id number] 00:00:00 Test Item Value Reference Range Interpretation Comments TSH, THIRD GENERATION (test code 2.250 UIU/ML = 2821) HPV HIGH RISK WITH GENOTYPE, [id number] 00:00:00 Test Item Value Reference Range Interpretation Comments HPV HIGH RISK INTERP (test code = NEGATIVE 69427) HPV 16 (test code = 22286) NEGATIVE HPV 18 (test code = 72582) NEGATIVE HPV, HR, OTHER GENOTYPES (test code NEGATIVE = 18968) [id number] 00:00:00 Test Item Value Reference Range Interpretation Comments TSH, THIRD GENERATION (test code 2.250 UIU/ML = 2821) GC AND CHLAMYDIA AMPLIFIED, [id number] 00:00:00 Test Item Value Reference Range Interpretation Comments GONORRHEA, TMA (test code = 90999) NEGATIVE CHLAMYDIA, TMA (test code = 19495) NEGATIVE GC AND CHLAMYDIA AMPLIFIED, [id number] 00:00:00 Test Item Value Reference Range Interpretation Comments GONORRHEA, TMA (test code = 44860) NEGATIVE CHLAMYDIA, TMA (test code = 86832) NEGATIVE PAP TEST, THINPREP, [id number] 00:00:00 Test Item Value Reference Range Interpretation Comments SOURCE: (test code = Cervical/Endocervical 8001) SLIDES: (test code = 1 8011) LMP: (test code = 8021) 10/10/2018 SPECIMEN ADEQUACY: (NOTE) (test code = 71506) INTERPRETATION: (test NILM/NO EPITH. code = 64965) ABNORMALITY;SEE BELOW MONITOR AND STORAGE BIN TENDER: (test NOLVIA DE [place] ROSA(ASCP) code = 8101) LOCATION: (test code = (NOTE) 02039) CPT: (test code = 8140) (NOTE) HIV AB/AG COMBO RFLX [id number] 00:00:00 Test Item Value Reference Range Interpretation Comments HIV 1/2 4TH GEN, RFLX CONF (test NON-REACTIVE code = 3514) PAP TEST, THINPREP, [id number] 00:00:00 Test Item Value Reference Range Interpretation Comments SOURCE: (test code = Cervical/Endocervical 8001) SLIDES: (test code = 1 8011) LMP: (test code = 8021) 10/10/2018 SPECIMEN ADEQUACY: (NOTE) (test code = 85508) INTERPRETATION: (test NILM/NO EPITH. code = 70414) ABNORMALITY;SEE BELOW MONITOR AND STORAGE BIN TENDER: (test NOLVIA DE [place](ASCP) code = 8101) LOCATION: (test code = (NOTE) 07133) CPT: (test code = 8140) (NOTE) HIV AB/AG COMBO RFLX [id number] 00:00:00 Test Item Value Reference Range Interpretation Comments HIV 1/2 4TH GEN, RFLX CONF (test NON-REACTIVE code = 3514) HPV HIGH RISK WITH GENOTYPE, [id number] 00:00:00 Test Item Value Reference Range Interpretation Comments HPV HIGH RISK INTERP (test code = NEGATIVE 98116) HPV 16 (test code = 50244) NEGATIVE HPV 18 (test code = 13300) NEGATIVE HPV, HR, OTHER GENOTYPES (test code NEGATIVE = 97326) [id number] 00:00:00 Test Item Value Reference Range Interpretation Comments TSH, THIRD GENERATION (test code 2.250 UIU/ML = 2821) [id number] 00:00:00 Test Item Value Reference Range Interpretation Comments TSH, THIRD GENERATION (test code 2.250 UIU/ML = 2821) HPV HIGH RISK WITH GENOTYPE, [id number] 00:00:00 Test Item Value Reference Range Interpretation Comments HPV HIGH RISK INTERP (test code = NEGATIVE 69970) HPV 16 (test code = 33233) NEGATIVE HPV 18 (test code = 13612) NEGATIVE HPV, HR, OTHER GENOTYPES (test code NEGATIVE = 28806) [id number] 00:00:00 Test Item Value Reference Range Interpretation Comments TSH, THIRD GENERATION (test code 2.250 UIU/ML = 2821) GC AND CHLAMYDIA AMPLIFIED, [id number] 00:00:00 Test Item Value Reference Range Interpretation Comments GONORRHEA, TMA (test code = 86557) NEGATIVE CHLAMYDIA, TMA (test code = 49508) NEGATIVE GC AND CHLAMYDIA AMPLIFIED, [id number] 00:00:00 Test Item Value Reference Range Interpretation Comments GONORRHEA, TMA (test code = 72729) NEGATIVE CHLAMYDIA, TMA (test code = 41409) NEGATIVE HIV AB/AG COMBO RFLX [id number] 00:00:00 Test Item Value Reference Range Interpretation Comments HIV 1/2 4TH GEN, RFLX CONF (test NON-REACTIVE code = 3514) PAP TEST, THINPREP, [id number] 00:00:00 Test Item Value Reference Range Interpretation Comments SOURCE: (test code = Cervical/Endocervical 8001) SLIDES: (test code = 1 8011) LMP: (test code = 8021) 10/10/2018 SPECIMEN ADEQUACY: (NOTE) (test code = 71987) INTERPRETATION: (test NILM/NO EPITH. code = 99917) ABNORMALITY;SEE BELOW MONITOR AND STORAGE BIN TENDER: (test NOLVIA DE [place] ROS[place](ASCP) code = 8101) LOCATION: (test code = (NOTE) 59912) CPT: (test code = 8140) (NOTE) PAP TEST, THINPREP, [id number] 00:00:00 Test Item Value Reference Range Interpretation Comments SOURCE: (test code = Cervical/Endocervical 8001) SLIDES: (test code = 1 8011) LMP: (test code = 8021) 10/10/2018 SPECIMEN ADEQUACY: (NOTE) (test code = 71495) INTERPRETATION: (test NILM/NO EPITH. code = 66099) ABNORMALITY;SEE BELOW MONITOR AND STORAGE BIN TENDER: (test RENAE CARCT(ASCP) code = 8101) LOCATION: (test code = (NOTE) 04348) CPT: (test code = 8140) (NOTE) HIV AB/AG COMBO RFLX [id number] 00:00:00 Test Item Value Reference Range Interpretation Comments HIV 1/2 4TH GEN, RFLX CONF (test NON-REACTIVE code = 3514) [id number] 00:00:00 Test Item Value Reference Range Interpretation Comments TSH, THIRD GENERATION (test code 2.250 UIU/ML = 2821) [id number] 00:00:00 Test Item Value Reference Range Interpretation Comments TSH, THIRD GENERATION (test code 2.250 UIU/ML = 2821) [id number] 00:00:00 Test Item Value Reference Range Interpretation Comments TSH, THIRD GENERATION (test code 2.250 UIU/ML = 2821) HPV HIGH RISK WITH GENOTYPE, [id number] 00:00:00 Test Item Value Reference Range Interpretation Comments HPV HIGH RISK INTERP (test code = NEGATIVE 86280) HPV 16 (test code = 38239) NEGATIVE HPV 18 (test code = 98457) NEGATIVE HPV, HR, OTHER GENOTYPES (test code NEGATIVE = 98189) HPV HIGH RISK WITH GENOTYPE, [id number] 00:00:00 Test Item Value Reference Range Interpretation Comments HPV HIGH RISK INTERP (test code = NEGATIVE 30628) HPV 16 (test code = 58961) NEGATIVE HPV 18 (test code = 22807) NEGATIVE HPV, HR, OTHER GENOTYPES (test code NEGATIVE = 95648) GC AND CHLAMYDIA AMPLIFIED, [id number] 00:00:00 Test Item Value Reference Range Interpretation Comments GONORRHEA, TMA (test code = 31566) NEGATIVE CHLAMYDIA, TMA (test code = 04415) NEGATIVE GC AND CHLAMYDIA AMPLIFIED, [id number] 00:00:00 Test Item Value Reference Range Interpretation Comments GONORRHEA, TMA (test code = 76977) NEGATIVE CHLAMYDIA, TMA (test code = 30919) NEGATIVE HIV AB/AG COMBO RFLX [id number] 00:00:00 Test Item Value Reference Range Interpretation Comments HIV 1/2 4TH GEN, RFLX CONF (test NON-REACTIVE code = 3514) PAP TEST, THINPREP, [id number] 00:00:00 Test Item Value Reference Range Interpretation Comments SOURCE: (test code = Cervical/Endocervical 8001) SLIDES: (test code = 1 8011) LMP: (test code = 8021) 10/10/2018 SPECIMEN ADEQUACY: (NOTE) (test code = 54082) INTERPRETATION: (test NILM/NO EPITH. code = 21649) ABNORMALITY;SEE BELOW MONITOR AND STORAGE BIN TENDER: (test RENAE CARCT(ASCP) code = 8101) LOCATION: (test code = (NOTE) 35735) CPT: (test code = 8140) (NOTE) PAP TEST, THINPREP, [id number] 00:00:00 Test Item Value Reference Range Interpretation Comments SOURCE: (test code = Cervical/Endocervical 8001) SLIDES: (test code = 1 8011) LMP: (test code = 8021) 10/10/2018 SPECIMEN ADEQUACY: (NOTE) (test code = 38810) INTERPRETATION: (test NILM/NO EPITH. code = 08663) ABNORMALITY;SEE BELOW MONITOR AND STORAGE BIN TENDER: (test RENAE CARCT(ASCP) code = 8101) LOCATION: (test code = (NOTE) 86347) CPT: (test code = 8140) (NOTE) HIV AB/AG COMBO RFLX [id number] 00:00:00 Test Item Value Reference Range Interpretation Comments HIV 1/2 4TH GEN, RFLX CONF (test NON-REACTIVE code = 3514) HPV HIGH RISK WITH GENOTYPE, [id number] 00:00:00 Test Item Value Reference Range Interpretation Comments HPV HIGH RISK INTERP (test code = NEGATIVE 63364) HPV 16 (test code = 01174) NEGATIVE HPV 18 (test code = 19617) NEGATIVE HPV, HR, OTHER GENOTYPES (test code NEGATIVE = 28592) [id number] 00:00:00 Test Item Value Reference Range Interpretation Comments TSH, THIRD GENERATION (test code 2.250 UIU/ML = 2821) [id number] 00:00:00 Test Item Value Reference Range Interpretation Comments TSH, THIRD GENERATION (test code 2.250 UIU/ML = 2821) [id number] 00:00:00 Test Item Value Reference Range Interpretation Comments TSH, THIRD GENERATION (test code 2.250 UIU/ML = 2821) HPV HIGH RISK WITH GENOTYPE, [id number] 00:00:00 Test Item Value Reference Range Interpretation Comments HPV HIGH RISK INTERP (test code = NEGATIVE 89419) HPV 16 (test code = 91238) NEGATIVE HPV 18 (test code = 96164) NEGATIVE HPV, HR, OTHER GENOTYPES (test code NEGATIVE = 94629) GC AND CHLAMYDIA AMPLIFIED, [id number] 00:00:00 Test Item Value Reference Range Interpretation Comments GONORRHEA, TMA (test code = 43851) NEGATIVE CHLAMYDIA, TMA (test code = 96051) NEGATIVE GC AND CHLAMYDIA AMPLIFIED, [id number] 00:00:00 Test Item Value Reference Range Interpretation Comments GONORRHEA, TMA (test code = 50571) NEGATIVE CHLAMYDIA, TMA (test code = 42129) NEGATIVE PAP TEST, THINPREP, [id number] 00:00:00 Test Item Value Reference Range Interpretation Comments SOURCE: (test code = Cervical/Endocervical 8001) SLIDES: (test code = 1 8011) LMP: (test code = 8021) 10/10/2018 SPECIMEN ADEQUACY: (NOTE) (test code = 45043) INTERPRETATION: (test NILM/NO EPITH. code = 99482) ABNORMALITY;SEE BELOW MONITOR AND STORAGE BIN TENDER: (test NOLVIA DE [place] ROSA(ASCP) code = 8101) LOCATION: (test code = (NOTE) 50170) CPT: (test code = 8140) (NOTE) HIV AB/AG COMBO RFLX [id number] 00:00:00 Test Item Value Reference Range Interpretation Comments HIV 1/2 4TH GEN, RFLX CONF (test NON-REACTIVE code = 3514) HIV AB/AG COMBO RFLX [id number] 00:00:00 Test Item Value Reference Range Interpretation Comments HIV 1/2 4TH GEN, RFLX CONF (test NON-REACTIVE code = 3514) PAP TEST, THINPREP, [id number] 00:00:00 Test Item Value Reference Range Interpretation Comments SOURCE: (test code = Cervical/Endocervical 8001) SLIDES: (test code = 1 8011) LMP: (test code = 8021) 10/10/2018 SPECIMEN ADEQUACY: (NOTE) (test code = 30947) INTERPRETATION: (test NILM/NO EPITH. code = 89169) ABNORMALITY;SEE BELOW MONITOR AND STORAGE BIN TENDER: (test RENAE CARCT(ASCP) code = 8101) LOCATION: (test code = (NOTE) 19086) CPT: (test code = 8140) (NOTE) HPV HIGH RISK WITH GENOTYPE, [id number] 00:00:00 Test Item Value Reference Range Interpretation Comments HPV HIGH RISK INTERP (test code = NEGATIVE 51113) HPV 16 (test code = 64900) NEGATIVE HPV 18 (test code = 19986) NEGATIVE HPV, HR, OTHER GENOTYPES (test code NEGATIVE = 28771) [id number] 00:00:00 Test Item Value Reference Range Interpretation Comments TSH, THIRD GENERATION (test code 2.250 UIU/ML = 2821) HPV HIGH RISK WITH GENOTYPE, [id number] 00:00:00 Test Item Value Reference Range Interpretation Comments HPV HIGH RISK INTERP (test code = NEGATIVE 30817) HPV 16 (test code = 15523) NEGATIVE HPV 18 (test code = 57341) NEGATIVE HPV, HR, OTHER GENOTYPES (test code NEGATIVE = 15014) [id number] 00:00:00 Test Item Value Reference Range Interpretation Comments TSH, THIRD GENERATION (test code 2.250 UIU/ML = 2821) [id number] 00:00:00 Test Item Value Reference Range Interpretation Comments TSH, THIRD GENERATION (test code 2.250 UIU/ML = 2821) GC AND CHLAMYDIA AMPLIFIED, [id number] 00:00:00 Test Item Value Reference Range Interpretation Comments GONORRHEA, TMA (test code = 89509) NEGATIVE CHLAMYDIA, TMA (test code = 73834) NEGATIVE GC AND CHLAMYDIA AMPLIFIED, [id number] 00:00:00 Test Item Value Reference Range Interpretation Comments GONORRHEA, TMA (test code = 78822) NEGATIVE CHLAMYDIA, TMA (test code = 63382) NEGATIVE PAP TEST, THINPREP, [id number] 00:00:00 Test Item Value Reference Range Interpretation Comments SOURCE: (test code = Cervical/Endocervical 8001) SLIDES: (test code = 1 8011) LMP: (test code = 8021) 10/10/2018 SPECIMEN ADEQUACY: (NOTE) (test code = 84481) INTERPRETATION: (test NILM/NO EPITH. code = 58334) ABNORMALITY;SEE BELOW MONITOR AND STORAGE BIN TENDER: (test NOLVIA DE [place] ROSA(ASCP) code = 8101) LOCATION: (test code = (NOTE) 43278) CPT: (test code = 8140) (NOTE) HIV AB/AG COMBO RFLX [id number] 00:00:00 Test Item Value Reference Range Interpretation Comments HIV 1/2 4TH GEN, RFLX CONF (test NON-REACTIVE code = 3514) HIV AB/AG COMBO RFLX [id number] 00:00:00 Test Item Value Reference Range Interpretation Comments HIV 1/2 4TH GEN, RFLX CONF (test NON-REACTIVE code = 3514) PAP TEST, THINPREP, [id number] 00:00:00 Test Item Value Reference Range Interpretation Comments SOURCE: (test code = Cervical/Endocervical 8001) SLIDES: (test code = 1 8011) LMP: (test code = 8021) 10/10/2018 SPECIMEN ADEQUACY: (NOTE) (test code = 89468) INTERPRETATION: (test NILM/NO EPITH. code = 89099) ABNORMALITY;SEE BELOW MONITOR AND STORAGE BIN TENDER: (test NOLVIA DE [place] ROSA(ASCP) code = 8101) LOCATION: (test code = (NOTE) 58334) CPT: (test code = 8140) (NOTE) HPV HIGH RISK WITH GENOTYPE, [id number] 00:00:00 Test Item Value Reference Range Interpretation Comments HPV HIGH RISK INTERP (test code = NEGATIVE 36558) HPV 16 (test code = 38302) NEGATIVE HPV 18 (test code = 44748) NEGATIVE HPV, HR, OTHER GENOTYPES (test code NEGATIVE = 95451) [id number] 00:00:00 Test Item Value Reference Range Interpretation Comments TSH, THIRD GENERATION (test code 2.250 UIU/ML = 2821) HPV HIGH RISK WITH GENOTYPE, [id number] 00:00:00 Test Item Value Reference Range Interpretation Comments HPV HIGH RISK INTERP (test code = NEGATIVE 45456) HPV 16 (test code = 40012) NEGATIVE HPV 18 (test code = 45118) NEGATIVE HPV, HR, OTHER GENOTYPES (test code NEGATIVE = 90349) [id number] 00:00:00 Test Item Value Reference Range Interpretation Comments TSH, THIRD GENERATION (test code 2.250 UIU/ML = 2821) [id number] 00:00:00 Test Item Value Reference Range Interpretation Comments TSH, THIRD GENERATION (test code 2.250 UIU/ML = 2821) GC AND CHLAMYDIA AMPLIFIED, [id number] 00:00:00 Test Item Value Reference Range Interpretation Comments GONORRHEA, TMA (test code = 38836) NEGATIVE CHLAMYDIA, TMA (test code = 36899) NEGATIVE GC AND CHLAMYDIA AMPLIFIED, [id number] 00:00:00 Test Item Value Reference Range Interpretation Comments GONORRHEA, TMA (test code = 55013) NEGATIVE CHLAMYDIA, TMA (test code = 76178) NEGATIVE GC AND CHLAMYDIA AMPLIFIED, [id number] 00:00:00 Test Item Value Reference Range Interpretation Comments GONORRHEA, TMA (test code = 25080) NEGATIVE CHLAMYDIA, TMA (test code = 57546) NEGATIVE PAP TEST, THINPREP, [id number] 00:00:00 Test Item Value Reference Range Interpretation Comments SOURCE: (test code = Cervical/Endocervical 8001) SLIDES: (test code = 1 8011) LMP: (test code = 8021) 10/10/2018 SPECIMEN ADEQUACY: (NOTE) (test code = 69878) INTERPRETATION: (test NILM/NO EPITH. code = 23251) ABNORMALITY;SEE BELOW MONITOR AND STORAGE BIN TENDER: (test NOLVIA DE LA ROSA(ASCP) code = 8101) LOCATION: (test code = (NOTE) 04150) CPT: (test code = 8140) (NOTE) HIV AB/AG COMBO RFLX [id number] 00:00:00 Test Item Value Reference Range Interpretation Comments HIV 1/2 4TH GEN, RFLX CONF (test NON-REACTIVE code = 3514) HIV AB/AG COMBO RFLX [id number] 00:00:00 Test Item Value Reference Range Interpretation Comments HIV 1/2 4TH GEN, RFLX CONF (test NON-REACTIVE code = 3514) HIV AB/AG COMBO RFLX [id number] 00:00:00 Test Item Value Reference Range Interpretation Comments HIV 1/2 4TH GEN, RFLX CONF (test NON-REACTIVE code = 3514) PAP TEST, THINPREP, [id number] 00:00:00 Test Item Value Reference Range Interpretation Comments SOURCE: (test code = Cervical/Endocervical 8001) SLIDES: (test code = 1 8011) LMP: (test code = 8021) 10/10/2018 SPECIMEN ADEQUACY: (NOTE) (test code = 79043) INTERPRETATION: (test NILM/NO EPITH. code = 83085) ABNORMALITY;SEE BELOW MONITOR AND STORAGE BIN TENDER: (test RENAE CAR,CT(ASCP) code = 8101) LOCATION: (test code = (NOTE) 67097) CPT: (test code = 8140) (NOTE) [id number] 00:00:00 Test Item Value Reference Range Interpretation Comments TSH, THIRD GENERATION (test code 2.250 UIU/ML = 2821) [id number] 00:00:00 Test Item Value Reference Range Interpretation Comments TSH, THIRD GENERATION (test code 2.250 UIU/ML = 2821) HPV HIGH RISK WITH GENOTYPE, [id number] 00:00:00 Test Item Value Reference Range Interpretation Comments HPV HIGH RISK INTERP (test code = NEGATIVE 31912) HPV 16 (test code = 03923) NEGATIVE HPV 18 (test code = 56156) NEGATIVE HPV, HR, OTHER GENOTYPES (test code NEGATIVE = 06253) [id number] 00:00:00 Test Item Value Reference Range Interpretation Comments TSH, THIRD GENERATION (test code 2.250 UIU/ML = 2821) HPV HIGH RISK WITH GENOTYPE, [id number] 00:00:00 Test Item Value Reference Range Interpretation Comments HPV HIGH RISK INTERP (test code = NEGATIVE 45616) HPV 16 (test code = 15770) NEGATIVE HPV 18 (test code = 96735) NEGATIVE HPV, HR, OTHER GENOTYPES (test code NEGATIVE = 98301) PAP TEST, THINPREP, [id number] 00:00:00 Test Item Value Reference Range Interpretation Comments SOURCE: (test code = Cervical/Endocervical 8001) SLIDES: (test code = 1 8011) LMP: (test code = 8021) 10/10/2018 SPECIMEN ADEQUACY: (NOTE) (test code = 01002) INTERPRETATION: (test NILM/NO EPITH. code = 24829) ABNORMALITY;SEE BELOW MONITOR AND STORAGE BIN TENDER: (test RENAE CARCT(ASCP) code = 8101) LOCATION: (test code = (NOTE) 19109) CPT: (test code = 8140) (NOTE) [id number] 00:00:00 Test Item Value Reference Range Interpretation Comments TSH, THIRD GENERATION (test code 2.250 UIU/ML = 2821) [id number] 00:00:00 Test Item Value Reference Range Interpretation Comments TSH, THIRD GENERATION (test code 2.250 UIU/ML = 2821) HPV HIGH RISK WITH GENOTYPE, [id number] 00:00:00 Test Item Value Reference Range Interpretation Comments HPV HIGH RISK INTERP (test code = NEGATIVE 03415) HPV 16 (test code = 70858) NEGATIVE HPV 18 (test code = 35687) NEGATIVE HPV, HR, OTHER GENOTYPES (test code NEGATIVE = 13922) GC AND CHLAMYDIA AMPLIFIED, [id number] 00:00:00 Test Item Value Reference Range Interpretation Comments GONORRHEA, TMA (test code = 98288) NEGATIVE CHLAMYDIA, TMA (test code = 59005) NEGATIVE GC AND CHLAMYDIA AMPLIFIED, [id number] 00:00:00 Test Item Value Reference Range Interpretation Comments GONORRHEA, TMA (test code = 01430) NEGATIVE CHLAMYDIA, TMA (test code = 68120) NEGATIVE PAP TEST, THINPREP, [id number] 00:00:00 Test Item Value Reference Range Interpretation Comments SOURCE: (test code = Cervical/Endocervical 8001) SLIDES: (test code = 1 8011) LMP: (test code = 8021) 10/10/2018 SPECIMEN ADEQUACY: (NOTE) (test code = 29001) INTERPRETATION: (test NILM/NO EPITH. code = 02651) ABNORMALITY;SEE BELOW MONITOR AND STORAGE BIN TENDER: (test RENAE CARCT(ASCP) code = 8101) LOCATION: (test code = (NOTE) 72072) CPT: (test code = 8140) (NOTE) HIV AB/AG COMBO RFLX [id number] 00:00:00 Test Item Value Reference Range Interpretation Comments HIV 1/2 4TH GEN, RFLX CONF (test NON-REACTIVE code = 3514) HIV AB/AG COMBO RFLX [id number] 00:00:00 Test Item Value Reference Range Interpretation Comments HIV 1/2 4TH GEN, RFLX CONF (test NON-REACTIVE code = 3514) PAP TEST, THINPREP, [id number] 00:00:00 Test Item Value Reference Range Interpretation Comments SOURCE: (test code = Cervical/Endocervical 8001) SLIDES: (test code = 1 8011) LMP: (test code = 8021) 10/10/2018 SPECIMEN ADEQUACY: (NOTE) (test code = 93535) INTERPRETATION: (test NILM/NO EPITH. code = 87996) ABNORMALITY;SEE BELOW MONITOR AND STORAGE BIN TENDER: (test NOLVIA [place](ASCP) code = 8101) LOCATION: (test code = (NOTE) 13209) CPT: (test code = 8140) (NOTE) [id number] 00:00:00 Test Item Value Reference Range Interpretation Comments TSH, THIRD GENERATION (test code 2.250 UIU/ML = 2821) HPV HIGH RISK WITH GENOTYPE, [id number] 00:00:00 Test Item Value Reference Range Interpretation Comments HPV HIGH RISK INTERP (test code = NEGATIVE 95229) HPV 16 (test code = 32373) NEGATIVE HPV 18 (test code = 58066) NEGATIVE HPV, HR, OTHER GENOTYPES (test code NEGATIVE = 90917) HPV HIGH RISK WITH GENOTYPE, [id number] 00:00:00 Test Item Value Reference Range Interpretation Comments HPV HIGH RISK INTERP (test code = NEGATIVE 76816) HPV 16 (test code = 17227) NEGATIVE HPV 18 (test code = 19874) NEGATIVE HPV, HR, OTHER GENOTYPES (test code NEGATIVE = 51732) [id number] 00:00:00 Test Item Value Reference Range Interpretation Comments TSH, THIRD GENERATION (test code 2.250 UIU/ML = 2821) [id number] 00:00:00 Test Item Value Reference Range Interpretation Comments TSH, THIRD GENERATION (test code 2.250 UIU/ML = 2821) GC AND CHLAMYDIA AMPLIFIED, [id number] 00:00:00 Test Item Value Reference Range Interpretation Comments GONORRHEA, TMA (test code = 87264) NEGATIVE CHLAMYDIA, TMA (test code = 48792) NEGATIVE GC AND CHLAMYDIA AMPLIFIED, [id number] 00:00:00 Test Item Value Reference Range Interpretation Comments GONORRHEA, TMA (test code = 24084) NEGATIVE CHLAMYDIA, TMA (test code = 53779) NEGATIVE PAP TEST, THINPREP, [id number] 00:00:00 Test Item Value Reference Range Interpretation Comments SOURCE: (test code = Cervical/Endocervical 8001) SLIDES: (test code = 1 8011) LMP: (test code = 8021) 10/10/2018 SPECIMEN ADEQUACY: (NOTE) (test code = 82987) INTERPRETATION: (test NILM/NO EPITH. code = 01599) ABNORMALITY;SEE BELOW MONITOR AND STORAGE BIN TENDER: (test RENAE CARCT(ASCP) code = 8101) LOCATION: (test code = (NOTE) 05176) CPT: (test code = 8140) (NOTE) PAP TEST, THINPREP, [id number] 00:00:00 Test Item Value Reference Range Interpretation Comments SOURCE: (test code = Cervical/Endocervical 8001) SLIDES: (test code = 1 8011) LMP: (test code = 8021) 10/10/2018 SPECIMEN ADEQUACY: (NOTE) (test code = 13045) INTERPRETATION: (test NILM/NO EPITH. code = 32985) ABNORMALITY;SEE BELOW MONITOR AND STORAGE BIN TENDER: (test RENAE CARCT(ASCP) code = 8101) LOCATION: (test code = (NOTE) 12677) CPT: (test code = 8140) (NOTE) HIV AB/AG COMBO RFLX [id number] 00:00:00 Test Item Value Reference Range Interpretation Comments HIV 1/2 4TH GEN, RFLX CONF (test NON-REACTIVE code = 3514) HIV AB/AG COMBO RFLX [id number] 00:00:00 Test Item Value Reference Range Interpretation Comments HIV 1/2 4TH GEN, RFLX CONF (test NON-REACTIVE code = 3514) HPV HIGH RISK WITH GENOTYPE, [id number] 00:00:00 Test Item Value Reference Range Interpretation Comments HPV HIGH RISK INTERP (test code = NEGATIVE 31230) HPV 16 (test code = 11904) NEGATIVE HPV 18 (test code = 16191) NEGATIVE HPV, HR, OTHER GENOTYPES (test code NEGATIVE = 55788) [id number] 00:00:00 Test Item Value Reference Range Interpretation Comments TSH, THIRD GENERATION (test code 2.250 UIU/ML = 2821) [id number] 00:00:00 Test Item Value Reference Range Interpretation Comments TSH, THIRD GENERATION (test code 2.250 UIU/ML = 2821) HPV HIGH RISK WITH GENOTYPE, [id number] 00:00:00 Test Item Value Reference Range Interpretation Comments HPV HIGH RISK INTERP (test code = NEGATIVE 94197) HPV 16 (test code = 79111) NEGATIVE HPV 18 (test code = 15121) NEGATIVE HPV, HR, OTHER GENOTYPES (test code NEGATIVE = 05542) [id number] 00:00:00 Test Item Value Reference Range Interpretation Comments TSH, THIRD GENERATION (test code 2.250 UIU/ML = 2821) GC AND CHLAMYDIA AMPLIFIED, [id number] 00:00:00 Test Item Value Reference Range Interpretation Comments GONORRHEA, TMA (test code = 22396) NEGATIVE CHLAMYDIA, TMA (test code = 76236) NEGATIVE GC AND CHLAMYDIA AMPLIFIED, [id number] 00:00:00 Test Item Value Reference Range Interpretation Comments GONORRHEA, TMA (test code = 86797) NEGATIVE CHLAMYDIA, TMA (test code = 31269) NEGATIVE PAP TEST, THINPREP, [id number] 00:00:00 Test Item Value Reference Range Interpretation Comments SOURCE: (test code = Cervical/Endocervical 8001) SLIDES: (test code = 1 8011) LMP: (test code = 8021) 10/10/2018 SPECIMEN ADEQUACY: (NOTE) (test code = 27026) INTERPRETATION: (test NILM/NO EPITH. code = 51753) ABNORMALITY;SEE BELOW MONITOR AND STORAGE BIN TENDER: (test NOLVIA [place](ASCP) code = 8101) LOCATION: (test code = (NOTE) 09345) CPT: (test code = 8140) (NOTE) CULTURE, [id number] 00:00:00 Test Item Value Reference Range Interpretation Comments CULTURE, URINE (test SPECIMEN NUMBER: code = 28524) [id number] CULTURE, [id number] 00:00:00 Test Item Value Reference Range Interpretation Comments CULTURE, URINE (test SPECIMEN NUMBER: code = 47070) [id number] CULTURE, [id number] 00:00:00 Test Item Value Reference Range Interpretation Comments CULTURE, URINE (test SPECIMEN NUMBER: code = 47094) [id number] CULTURE, [id number] 00:00:00 Test Item Value Reference Range Interpretation Comments CULTURE, URINE (test SPECIMEN NUMBER: code = 81651) [id number] CULTURE, [id number] 00:00:00 Test Item Value Reference Range Interpretation Comments CULTURE, URINE (test SPECIMEN NUMBER: code = 38721) [id number] CULTURE, [id number] 00:00:00 Test Item Value Reference Range Interpretation Comments CULTURE, URINE (test SPECIMEN NUMBER: code = 96929) [id number] CULTURE, [id number] 00:00:00 Test Item Value Reference Range Interpretation Comments CULTURE, URINE (test SPECIMEN NUMBER: code = 38111) [id number] CULTURE, [id number] 00:00:00 Test Item Value Reference Range Interpretation Comments CULTURE, URINE (test SPECIMEN NUMBER: code = 07310) [id number] CULTURE, [id number] 00:00:00 Test Item Value Reference Range Interpretation Comments CULTURE, URINE (test SPECIMEN NUMBER: code = 98626) [id number] CULTURE, [id number] 00:00:00 Test Item Value Reference Range Interpretation Comments CULTURE, URINE (test SPECIMEN NUMBER: code = 94222) [id number] CULTURE, [id number] 00:00:00 Test Item Value Reference Range Interpretation Comments CULTURE, URINE (test SPECIMEN NUMBER: code = 25566) [id number] CULTURE, [id number] 00:00:00 Test Item Value Reference Range Interpretation Comments CULTURE, URINE (test SPECIMEN NUMBER: code = 69791) [id number] CULTURE, [id number] 00:00:00 Test Item Value Reference Range Interpretation Comments CULTURE, URINE (test SPECIMEN NUMBER: code = 05718) [id number] CULTURE, [id number] 00:00:00 Test Item Value Reference Range Interpretation Comments CULTURE, URINE (test SPECIMEN NUMBER: code = 56687) [id number] CULTURE, [id number] 00:00:00 Test Item Value Reference Range Interpretation Comments CULTURE, URINE (test SPECIMEN NUMBER: code = 11701) [id number] CULTURE, [id number] 00:00:00 Test Item Value Reference Range Interpretation Comments CULTURE, URINE (test SPECIMEN NUMBER: code = 91623) [id number] CULTURE, [id number] 00:00:00 Test Item Value Reference Range Interpretation Comments CULTURE, URINE (test SPECIMEN NUMBER: code = 41889) [id number] CULTURE, [id number] 00:00:00 Test Item Value Reference Range Interpretation Comments CULTURE, URINE (test SPECIMEN NUMBER: code = 45803) [id number] CULTURE, [id number] 00:00:00 Test Item Value Reference Range Interpretation Comments CULTURE, URINE (test SPECIMEN NUMBER: code = 79011) [id number] VAGINAL PATHOGENS DNA [id number] 00:00:00 Test Item Value Reference Range Interpretation Comments ABHAY SPECIES (test code = 88433) NEGATIVE G. VAGINALIS (test code = 29589) POSITIVE T. VAGINALIS (test code = 71536) NEGATIVE VAGINAL PATHOGENS DNA [id number] 00:00:00 Test Item Value Reference Range Interpretation Comments ABHAY SPECIES (test code = 26796) NEGATIVE G. VAGINALIS (test code = 60284) POSITIVE T. VAGINALIS (test code = 06370) NEGATIVE VAGINAL PATHOGENS DNA [id number] 00:00:00 Test Item Value Reference Range Interpretation Comments ABHAY SPECIES (test code = 25279) NEGATIVE G. VAGINALIS (test code = 39465) POSITIVE T. VAGINALIS (test code = 37927) NEGATIVE VAGINAL PATHOGENS DNA [id number] 00:00:00 Test Item Value Reference Range Interpretation Comments ABHAY SPECIES (test code = 94666) NEGATIVE G. VAGINALIS (test code = 23215) POSITIVE T. VAGINALIS (test code = 38455) NEGATIVE VAGINAL PATHOGENS DNA [id number] 00:00:00 Test Item Value Reference Range Interpretation Comments ABHAY SPECIES (test code = 26473) NEGATIVE G. VAGINALIS (test code = 68207) POSITIVE T. VAGINALIS (test code = 38379) NEGATIVE VAGINAL PATHOGENS DNA [id number] 00:00:00 Test Item Value Reference Range Interpretation Comments ABHAY SPECIES (test code = 52212) NEGATIVE G. VAGINALIS (test code = 08601) POSITIVE T. VAGINALIS (test code = 99163) NEGATIVE VAGINAL PATHOGENS DNA [id number] 00:00:00 Test Item Value Reference Range Interpretation Comments ABHAY SPECIES (test code = 08520) NEGATIVE G. VAGINALIS (test code = 32448) POSITIVE T. VAGINALIS (test code = 99898) NEGATIVE VAGINAL PATHOGENS DNA [id number] 00:00:00 Test Item Value Reference Range Interpretation Comments ABHAY SPECIES (test code = 59486) NEGATIVE G. VAGINALIS (test code = 30880) POSITIVE T. VAGINALIS (test code = 92613) NEGATIVE VAGINAL PATHOGENS DNA [id number] 00:00:00 Test Item Value Reference Range Interpretation Comments ABHAY SPECIES (test code = 57876) NEGATIVE G. VAGINALIS (test code = 03347) POSITIVE T. VAGINALIS (test code = 97226) NEGATIVE VAGINAL PATHOGENS DNA [id number] 00:00:00 Test Item Value Reference Range Interpretation Comments ABHAY SPECIES (test code = 53024) NEGATIVE G. VAGINALIS (test code = 30933) POSITIVE T. VAGINALIS (test code = 99225) NEGATIVE VAGINAL PATHOGENS DNA [id number] 00:00:00 Test Item Value Reference Range Interpretation Comments ABHAY SPECIES (test code = 51893) NEGATIVE G. VAGINALIS (test code = 27446) POSITIVE T. VAGINALIS (test code = 32460) NEGATIVE VAGINAL PATHOGENS DNA [id number] 00:00:00 Test Item Value Reference Range Interpretation Comments ABHAY SPECIES (test code = 01523) NEGATIVE G. VAGINALIS (test code = 86325) POSITIVE T. VAGINALIS (test code = 97364) NEGATIVE VAGINAL PATHOGENS DNA [id number] 00:00:00 Test Item Value Reference Range Interpretation Comments ABHAY SPECIES (test code = 24134) NEGATIVE G. VAGINALIS (test code = 72114) POSITIVE T. VAGINALIS (test code = 86463) NEGATIVE VAGINAL PATHOGENS DNA [id number] 00:00:00 Test Item Value Reference Range Interpretation Comments ABHAY SPECIES (test code = 99388) NEGATIVE G. VAGINALIS (test code = 58260) POSITIVE T. VAGINALIS (test code = 04534) NEGATIVE VAGINAL PATHOGENS DNA [id number] 00:00:00 Test Item Value Reference Range Interpretation Comments ABHAY SPECIES (test code = 79444) NEGATIVE G. VAGINALIS (test code = 22677) POSITIVE T. VAGINALIS (test code = 91314) NEGATIVE VAGINAL PATHOGENS DNA [id number] 00:00:00 Test Item Value Reference Range Interpretation Comments ABHAY SPECIES (test code = 85019) NEGATIVE G. VAGINALIS (test code = 03946) POSITIVE T. VAGINALIS (test code = 35153) NEGATIVE VAGINAL PATHOGENS DNA [id number] 00:00:00 Test Item Value Reference Range Interpretation Comments ABHAY SPECIES (test code = 65729) NEGATIVE G. VAGINALIS (test code = 89760) POSITIVE T. VAGINALIS (test code = 32535) NEGATIVE VAGINAL PATHOGENS DNA [id number] 00:00:00 Test Item Value Reference Range Interpretation Comments ABHAY SPECIES (test code = 38877) NEGATIVE G. VAGINALIS (test code = 94344) POSITIVE T. VAGINALIS (test code = 11343) NEGATIVE VAGINAL PATHOGENS DNA [id number] 00:00:00 Test Item Value Reference Range Interpretation Comments ABHAY SPECIES (test code = 44403) NEGATIVE G. VAGINALIS (test code = 55844) POSITIVE T. VAGINALIS (test code = 49240) NEGATIVE GC AND CHLAMYDIA, AMPLIFIED, [id number] 00:00:00 Test Item Value Reference Range Interpretation Comments GONORRHEA, TMA (test code = 69505) NEGATIVE CHLAMYDIA, TMA (test code = 96342) NEGATIVE GC AND CHLAMYDIA, AMPLIFIED, [id number] 00:00:00 Test Item Value Reference Range Interpretation Comments GONORRHEA, TMA (test code = 93360) NEGATIVE CHLAMYDIA, TMA (test code = 90369) NEGATIVE GC AND CHLAMYDIA, AMPLIFIED, [id number] 00:00:00 Test Item Value Reference Range Interpretation Comments GONORRHEA, TMA (test code = 36510) NEGATIVE CHLAMYDIA, TMA (test code = 26151) NEGATIVE GC AND CHLAMYDIA, AMPLIFIED, [id number] 00:00:00 Test Item Value Reference Range Interpretation Comments GONORRHEA, TMA (test code = 11493) NEGATIVE CHLAMYDIA, TMA (test code = 74828) NEGATIVE GC AND CHLAMYDIA, AMPLIFIED, [id number] 00:00:00 Test Item Value Reference Range Interpretation Comments GONORRHEA, TMA (test code = 30229) NEGATIVE CHLAMYDIA, TMA (test code = 29828) NEGATIVE GC AND CHLAMYDIA, AMPLIFIED, [id number] 00:00:00 Test Item Value Reference Range Interpretation Comments GONORRHEA, TMA (test code = 97623) NEGATIVE CHLAMYDIA, TMA (test code = 41337) NEGATIVE GC AND CHLAMYDIA, AMPLIFIED, [id number] 00:00:00 Test Item Value Reference Range Interpretation Comments GONORRHEA, TMA (test code = 88164) NEGATIVE CHLAMYDIA, TMA (test code = 18033) NEGATIVE GC AND CHLAMYDIA, AMPLIFIED, [id number] 00:00:00 Test Item Value Reference Range Interpretation Comments GONORRHEA, TMA (test code = 05508) NEGATIVE CHLAMYDIA, TMA (test code = 59075) NEGATIVE GC AND CHLAMYDIA, AMPLIFIED, [id number] 00:00:00 Test Item Value Reference Range Interpretation Comments GONORRHEA, TMA (test code = 20612) NEGATIVE CHLAMYDIA, TMA (test code = 76027) NEGATIVE GC AND CHLAMYDIA, AMPLIFIED, [id number] 00:00:00 Test Item Value Reference Range Interpretation Comments GONORRHEA, TMA (test code = 57524) NEGATIVE CHLAMYDIA, TMA (test code = 77975) NEGATIVE GC AND CHLAMYDIA, AMPLIFIED, [id number] 00:00:00 Test Item Value Reference Range Interpretation Comments GONORRHEA, TMA (test code = 39855) NEGATIVE CHLAMYDIA, TMA (test code = 34570) NEGATIVE GC AND CHLAMYDIA, AMPLIFIED, [id number] 00:00:00 Test Item Value Reference Range Interpretation Comments GONORRHEA, TMA (test code = 11365) NEGATIVE CHLAMYDIA, TMA (test code = 98689) NEGATIVE GC AND CHLAMYDIA, AMPLIFIED, [id number] 00:00:00 Test Item Value Reference Range Interpretation Comments GONORRHEA, TMA (test code = 47048) NEGATIVE CHLAMYDIA, TMA (test code = 37289) NEGATIVE GC AND CHLAMYDIA, AMPLIFIED, [id number] 00:00:00 Test Item Value Reference Range Interpretation Comments GONORRHEA, TMA (test code = 04567) NEGATIVE CHLAMYDIA, TMA (test code = 06754) NEGATIVE GC AND CHLAMYDIA, AMPLIFIED, [id number] 00:00:00 Test Item Value Reference Range Interpretation Comments GONORRHEA, TMA (test code = 81651) NEGATIVE CHLAMYDIA, TMA (test code = 18613) NEGATIVE GC AND CHLAMYDIA, AMPLIFIED, [id number] 00:00:00 Test Item Value Reference Range Interpretation Comments GONORRHEA, TMA (test code = 55745) NEGATIVE CHLAMYDIA, TMA (test code = 25215) NEGATIVE GC AND CHLAMYDIA, AMPLIFIED, [id number] 00:00:00 Test Item Value Reference Range Interpretation Comments GONORRHEA, TMA (test code = 16474) NEGATIVE CHLAMYDIA, TMA (test code = 76174) NEGATIVE GC AND CHLAMYDIA, AMPLIFIED, [id number] 00:00:00 Test Item Value Reference Range Interpretation Comments GONORRHEA, TMA (test code = 21705) NEGATIVE CHLAMYDIA, TMA (test code = 78566) NEGATIVE GC AND CHLAMYDIA, AMPLIFIED, [id number] 00:00:00 Test Item Value Reference Range Interpretation Comments GONORRHEA, TMA (test code = 42442) NEGATIVE CHLAMYDIA, TMA (test code = 26444) NEGATIVE
[2022-10-01 19:52] LABS: Urine Blood Negative (Negative); Urine Glucose Negative (Negative); Urine Protein Negative (Negative)
[2022-10-01] MEDS ORDERED: PROMETHAZINE INJ 25 MG/ML AMP ONE (20:12)
[2022-10-01] MEDS ORDERED: NA CHLORIDE 0.9% 1,000 ML ONE (20:12)
[2022-10-01] MEDS ORDERED: KETOROLAC 30 MG/ML INJ ONE (20:12)
[2022-10-01 20:14] LABS: Urine Bacteria <20 /HPF (<20); Urine Mucus Slight /HPF (None Seen)
[2022-10-01 20:15] LABS: Absolute Lymphocytes (CBC) 1.8 K/uL (0.7-4.9); Hematocrit 38.5 % (36.0-45.0); Lymphocytes % 19.9 % (15.3-44.8); MCV 86.5 fL (80-100); MPV 7.7 fL (7.6-11.3); RBC Red Blood Cell Count 4.45 M/uL (3.86-4.86)
[2022-10-01 20:35] LABS: Bilirubin Total 0.8 mg/dL (0.2-1.0); Protein, Total 7.7 g/dL (6.4-8.2)
[2022-10-01 20:36] LABS: Potassium 3.8 mmol/L (3.5-5.1)
--- NOTE | 2022-10-01 21:23 | RAD REPORT ---
EXAM DESCRIPTION: CTAbdomen Pelvis W Contrast - 10/01/2022 9:14 pm CLINICAL HISTORY: generalized abd pain COMPARISON: Abdomen Pelvis W Contrast dated 06/16/2018 TECHNIQUE: CT of the abdomen and pelvis was performed. All CT scans are performed using dose optimization technique as appropriate and may include automated exposure control or mA/KV adjustment according to patient size. FINDINGS: Lower chest: No acute abnormality. Liver: Benign-appearing low-density lesions. Biliary: Cholecystectomy. No biliary ductal dilatation. Stomach: No significant focal abnormality. Duodenum: No significant focal abnormality. Pancreas: No significant abnormality. Spleen: No significant abnormality. Adrenal: No suspicious lesions. Kidney/ureter: No hydronephrosis. No renal calculi. Retroperitoneum: No retroperitoneal adenopathy. Vascular: No aneurysm. Bowel: No significant focal abnormality. Peritoneum: Small volume of pelvic free fluid which is likely physiologic. Normal appendix. Bladder: Grossly unremarkable. Reproductive: Areas of hyperattenuation in the uterus may reflect fibroids. No suspicious adnexal mas ses. IUD. Bones: No acute fracture. Disc height loss at L5-S1. Other: n/a IMPRESSION: No acute intra-abdominal or pelvic finding. Normal appendix. No urinary tract calculi. C holecystectomy. No biliary ductal dilatation.
--- NOTE | 2022-10-01 21:31 | EDPHYS ---
Physician Documentation [facility] Name: Aimee Randolph Age: 42 yrs Sex: Female : 1980 Arrival Date: 10/01/2022 Time: 19:26 Bed 16 Private MD: ED Physician Timoteo Barney HPI: 10/01 20:02 This 42 yrs old Female presents to ER via Ambulatory with complaints of snw Abdominal Pain, Low Back Pain. 20:02 The patient presents with abdominal pain in the lower abdomen. Onset: The snw symptoms/episode began/occurred 4 day(s) ago, and became worse 2 day(s) ago, and became persistent. The symptoms radiate to back. Associated signs and symptoms: Pertinent positives: nausea, Chills. The symptoms are described as achy, steady, vague. Severity of pain: At its worst the pain was moderate severe. The patient has not experienced similar symptoms in the past. It is unknown whether or not the patient has recently seen a physician. Has had c/s, cholecystectomy. DIRECTOR TRANSLATION: 19:50 LMP 09/13/2022 tw5 Historical: - Allergies: 19:50 Ceclor; tw5 19:50 Latex, Natural Rubber; tw5 19:50 Levaquin; tw5 - PSHx: 19:50 section; Cholecystectomy; heart surgery; tw5 - Immunization history:: Flu vaccine is up to date. - Social history:: Smoking status: Reported history of juuling and/or vaping. ROS: 20:01 Constitutional: Negative for fever or weight loss, + chills Eyes: Negative for injury, snw pain, redness, and discharge, ENT: Negative for injury, pain, and discharge, Neck: Negative for injury, pain, and swelling, Cardiovascular: Negative for chest pain, palpitations, and edema, Respiratory: Negative for shortness of breath, cough, wheezing, and pleuritic chest pain, Back: Negative for injury and pain, : Negative for injury, bleeding, discharge, and swelling, MS/Extremity: Negative for injury and deformity, Skin: Negative for injury, rash, and discoloration, Neuro: Negative for headache, weakness, numbness, tingling, and seizure, Psych: Negative for depression, anxiety, suicide ideation, homicidal ideation, and hallucinations. 20:01 Abdomen/GI: Positive for abdominal pain, nausea, Negative for vomiting, diarrhea, constipation. Exam: 20:01 Constitutional: This is a well developed, well nourished patient who is awake, alert, snw and in no acute distress. Head/Face: Normocephalic, atraumatic. Eyes: Pupils equal round and reactive to light, extra-ocular motions intact. Lids and lashes normal. Conjunctiva and sclera are non-icteric and not injected. Cornea within normal limits. Periorbital areas with no swelling, redness, or edema. ENT: Nares patent. No nasal discharge, no septal abnormalities noted. Tympanic membranes are normal and external auditory canals are clear. Oropharynx with no redness, swelling, or masses, exudates, or evidence of obstruction, uvula midline. Mucous membranes moist. Neck: Trachea midline, no thyromegaly or masses palpated, and no cervical lymphadenopathy. Supple, full range of motion without nuchal rigidity, or vertebral point tenderness. No Meningismus. Chest/axilla: Normal chest wall appearance and motion. Nontender with no deformity. No lesions are appreciated. Cardiovascular: Regular rate and rhythm with a normal S1 and S2. No gallops, murmurs, or rubs. Normal PMI, no JVD. No pulse deficits. Respiratory: Lungs have equal breath sounds bilaterally, clear to auscultation and percussion. No rales, rhonchi or wheezes noted. No increased work of breathing, no retractions or nasal flaring. Back: No spinal tenderness. No costovertebral tenderness. Full range of motion. Skin: Warm, dry with normal turgor. Normal color with no rashes, no lesions, and no evidence of cellulitis. MS/ Extremity: Pulses equal, no cyanosis. Neurovascular intact. Full, normal range of motion. Neuro: Awake and alert, GCS 15, oriented to person, place, time, and situation. Cranial nerves II-XII grossly intact. Motor strength 5/5 in all extremities. Sensory grossly intact. Cerebellar exam normal. Normal gait. Psych: Awake, alert, with orientation to person, place and time. Behavior, mood, and affect are within normal limits. 20:01 Abdomen/GI: Inspection: obese Bowel sounds: normal, Palpation: moderate abdominal tenderness, in all quadrants, Indicators: McBurney's point is tender. Vital Signs: 19:48 BP 149 / 81; Pulse 69; Resp 18; Temp 97.9; Pulse Ox 100% ; Weight 86.18 kg; Height 4 tw5 ft. 11 in. (149.86 cm); Pain 10/10; 19:48 Body Mass Index 38.37 (86.18 kg, 149.86 cm) tw5 MDM: 19:56 Patient medically screened. snw 21:26 Data reviewed: vital signs, nurses notes. Data interpreted: Pulse oximetry: on room air snw is 100 %. Interpretation: normal. Counseling: I had a detailed discussion with the patient and/or guardian regarding: the historical points, exam findings, and any diagnostic results supporting the discharge/admit diagnosis, the presence of at least one elevated blood pressure reading (>120/80) during this emergency department visit, lab results, radiology results, the need for outpatient follow up, to return to the emergency department if symptoms worsen or persist or if there are any questions or concerns that arise at home. Response to treatment: the patient's symptoms have mildly improved after treatment. Special discussion: Based on the patient's Hx, exam, and Dx evaluation, there is no indication for emergent surgery or inpatient Tx. It is understood by the patient/guardian that if the Sx's persist or worsen they need to return immediately for re-evaluation. Based on the history and exam findings, there is no indication for further emergent testing or inpatient evaluation. I discussed with the patient/guardian the need to see the OB Gyne specialist for further evaluation of the symptoms. I discussed with the patient/guardian the need to see the primary care provider for further evaluation of the symptoms. pt to f/u with carton inspector to eval for fibroids . 21:32 Special discussion: I have referred the patient to see his PCP for further evaluation snw of high blood pressure. 10/01 19:52 Order name: Urine Dipstick-Ancillary; Complete Time: 19:55 EDMS 10/01 19:53 Order name: Urine --Ancillary (enter results); Complete Time: 20:16 ds4 10/01 19:53 Order name: Urine Microscopic Only; Complete Time: 20:25 ds4 10/01 19:55 Order name: CBC with Diff; Complete Time: 20:25 vc1 10/01 19:55 Order name: CMP; Complete Time: 20:37 vc1 10/01 19:55 Order name: Lipase; Complete Time: 20:37 vc1 10/01 19:45 Order name: Urine Dipstick-Ancillary (obtain specimen); Complete Time: 19:53 tw5 10/01 19:45 Order name: Urine Test (obtain specimen); Complete Time: 19:53 tw5 10/01 20:00 Order name: CT Abd/Pelvis - IV Contrast Only; Complete Time: 21:24 snw 10/01 20:26 Order name: Urine Culture EDMS 10/01 19:55 Order name: IV Saline Lock; Complete Time: 20:06 vc1 10/01 19:55 Order name: Labs collected and sent; Complete Time: 20:06 vc1 Administered Medications: 20:20 Drug: NS 0.9% 1000 ml Route: IV; Rate: 1 bolus; Site: right forearm; aa9 21:59 Follow up: Response: No adverse reaction; IV Status: Completed infusion; IV Intake: aa9 1000ml 20:20 Drug: Ketorolac 15 mg Route: IVP; Site: right forearm; aa9 21:59 Follow up: Response: No adverse reaction aa9 20:20 Drug: Phenergan (promethazine) 25 mg Route: IM; Site: left deltoid; aa9 21:59 Follow up: Response: No adverse reaction aa9 22:03 Drug: Bactrim (trimethoprim-sulfamethoxazole) (160 mg-800 mg (DS) 1 tablet Route: PO; aa9 22:03 Follow up: Response: No adverse reaction aa9 22:18 Follow up: Response: No adverse reaction aa9 Disposition Summary: 10/01/22 21:30 Discharge Ordered Location: Home snw Condition: Stable snw Diagnosis - Dysuria snw - Abdominal pain, Generalized snw Followup: snw - With: Emergency Department - When: As needed - Reason: Worsening of condition Followup: snw - With: Private Physician - When: 2 - 3 days - Reason: Recheck today's complaints, Continuance of care, Re-evaluation by your physician Discharge Instructions: - Discharge Summary Sheet snw - Abdominal Pain, Adult snw - Dysuria snw - Gas and Gas Pains, Pediatric snw - Form - Blood Pressure Record Sheet snw - Bledsoe Diet snw Forms: - Medication Reconciliation Form snw - Thank You Letter snw - Antibiotic Education snw - Prescription Opioid Use snw Prescriptions: - Mobic 7.5 mg Oral Tablet - take 1 tablet by ORAL route once daily take with food; 20 tablet; Refills: 0, snw Product Selection Permitted - Bactrim DS 800-160 mg Oral Tablet - take 1 tablet by ORAL route every 12 hours for 10 days; 20 tablet; Refills: 0, snw Product Selection Permitted - promethazine 25 mg Oral Tablet - take 1 tablet by ORAL route every 6 hours As needed; 20 tablet; Refills: 0, snw Product Selection Permitted Signatures: Dispatcher [employer] EDOH Precious Soares FNP-C [employer]-[place] Layne Shanks tw5 Ines Guerrero, RN RN vc1 Belinda Huizar, RN RN aa9
--- NOTE | 2022-10-01 21:31 | ER ---
Nurse's Notes [facility] Name: Aimee Randolph Age: 42 yrs Sex: Female : 1980 Arrival Date: 10/01/2022 Time: 19:26 Bed 16 Private MD: Diagnosis: Dysuria;Abdominal pain, Generalized Presentation: 10/01 19:48 Chief complaint: Patient states: "I have been having lower abdominal pain for the week. tw5 It moving to my back. I feel really nauseous, my head is hurting and I have started having the chills.". Coronavirus screen: Vaccine status: Patient reports being unvaccinated. Sensing [employer] Plus. Ebola Screen: Patient negative for fever greater than or equal to 101.5 degrees Fahrenheit, and additional compatible Ebola Virus Disease symptoms Patient denies exposure to infectious person. Patient denies travel to an Ebola-affected area in the 21 days before illness onset. Initial Sepsis Screen: Does the patient meet any 2 criteria? No. Patient's initial sepsis screen is negative. Does the patient have a suspected source of infection? Yes: Dysuria/Frequency/Urgency/UTI. Risk Assessment: Do you want to hurt yourself or someone else? Patient reports no desire to harm self or others. Onset of symptoms was September 27, 2022. 19:48 Method Of Arrival: Ambulatory tw5 19:48 Acuity: LAURITA 3 tw5 Triage Assessment: 19:50 General: Appears uncomfortable, Behavior is calm, cooperative, appropriate for age. tw5 Pain: Complains of pain in low back area, right lower quadrant and left lower quadrant Pain currently is 10 out of 10 on a pain scale. GI: Reports lower abdominal pain, nausea, vomiting. CUSTOMER MANAGER: 19:50 LMP 09/13/2022 tw5 Historical: - Allergies: 19:50 Ceclor; tw5 19:50 Latex, Natural Rubber; tw5 19:50 Levaquin; tw5 - PSHx: 19:50 section; Cholecystectomy; heart surgery; tw5 - Immunization history:: Flu vaccine is up to date. - Social history:: Smoking status: Reported history of juuling and/or vaping. Screenin:18 Abuse screen: Denies threats or abuse. Denies injuries from another. Nutritional aa9 screening: No deficits noted. Tuberculosis screening: No symptoms or risk factors identified. Assessment: 20:22 General: Appears uncomfortable, Behavior is calm, cooperative, appropriate for age. aa9 Neuro: Level of Consciousness is awake, alert, obeys commands, Oriented to person, place, time, situation. Cardiovascular: Patient's skin is warm and dry. Respiratory: Airway is patent Respiratory effort is even, unlabored. GI: Abd is soft X 4 quads Abdomen is tender to palpation in right upper quadrant, left upper quadrant, right lower quadrant and left lower quadrant Reports nausea, Patient currently denies diarrhea, vomiting. : No signs and/or symptoms were reported regarding the genitourinary system. Derm: Skin is intact, is healthy with good turgor. Vital Signs: 19:48 BP 149 / 81; Pulse 69; Resp 18; Temp 97.9; Pulse Ox 100% ; Weight 86.18 kg; Height 4 tw5 ft. 11 in. (149.86 cm); Pain 10/10; 19:48 Body Mass Index 38.37 (86.18 kg, 149.86 cm) tw5 ED Course: 19:26 Patient arrived in ED. jj6 19:50 Triage completed. tw5 19:50 Arm band placed on. tw5 19:54 Belinda Huizar, RN is Primary Nurse. aa9 19:54 Precious Soares FNP-C is PHCP. snw 19:54 Timoteo Barney MD is Attending Physician. snw 20:06 Inserted saline lock: 20 gauge in right forearm, using aseptic technique. Blood aa9 collected. 20:10 CBC with Diff Sent. aa9 20:10 CMP Sent. aa9 20:10 Lipase Sent. aa9 21:15 CT Abd/Pelvis - IV Contrast Only In Process Unspecified. EDMS 22:18 IV discontinued, intact, bleeding controlled, No redness/swelling at site. Pressure aa9 dressing applied. 22:18 No provider procedures requiring assistance completed. aa9 22:19 Patient has correct armband on for positive identification. Side rails up X2. aa9 Administered Medications: 20:20 Drug: NS 0.9% 1000 ml Route: IV; Rate: 1 bolus; Site: right forearm; aa9 21:59 Follow up: Response: No adverse reaction; IV Status: Completed infusion; IV Intake: aa9 1000ml 20:20 Drug: Ketorolac 15 mg Route: IVP; Site: right forearm; aa9 21:59 Follow up: Response: No adverse reaction aa9 20:20 Drug: Phenergan (promethazine) 25 mg Route: IM; Site: left deltoid; aa9 21:59 Follow up: Response: No adverse reaction aa9 22:03 Drug: Bactrim (trimethoprim-sulfamethoxazole) (160 mg-800 mg (DS) 1 tablet Route: PO; aa9 22:03 Follow up: Response: No adverse reaction aa9 22:18 Follow up: Response: No adverse reaction aa9 Medication: 22:18 VIS not applicable for this client. aa9 Intake: 21:59 IV: 1000ml; Total: 1000ml. aa9 Outcome: 21:30 Discharge ordered by . edel 22:18 Discharged to home ambulatory. aa9 22:18 Condition: stable 22:18 Condition: stable 22:18 Discharge instructions given to patient, Instructed on discharge instructions, follow up and referral plans. medication usage, Demonstrated understanding of instructions, follow-up care, medications, Prescriptions given X 3. 22:19 Patient left the ED. aa9 Signatures: Dispatcher [employer] EDMS Precious Soares, MATEO HYLTONP-Layne Florez tw5 Radha Kitchen jj6 Belinda Huizar, RN RN aa9
[2022-10-01] MEDS ORDERED: SMZ./TMP. 800/160 MG TABLET ONE (21:58)
[2022-10-01 22:44] VITALS: BP 149/81; TEMP 97.9; O2SAT 100
== END 2022-10-01 22:19 | disposition home or self-care (01) ==
LOC: ER 19:21
DX: R10.84 Generalized abdominal pain (principal); R30.0 Dysuria; Z88.1 Allergy status to other antibiotic agents; Z91.040 Latex allergy status; Z91.048 Other nonmedicinal substance allergy status
CPT/HCPCS: 96361; 87088; 85025; 87086; 36415; 81025; 83690; 80053; 74177; 96372; 96374; 99284; Q9967; J2550; J7030; 81003; 81015

== ENCOUNTER 2023-03-01 17:16 | Emergency (ER) | payer OTHER ==
--- OUTSIDE RECORDS SUMMARY | 2023-03-01 17:33 | XMS REPORT | Continuity of Care Document ---
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 mouth [place] 00 every 6 Medical (six) Branch hours as needed for Pain (scale 1-3) or Pain (scale 4-6). acetaminoph 2023-0 Yes [id number] 650mg Take 2 [facility] en 3-28 tablets by [facility] of (TYLENOL) 00:00: mouth [place] 325 mg 00 every 6 Medical tablet (six) Branch hours as needed for Pain (scale 1-3) or Pain (scale 4-6). ibuprofen 2023-0 Yes [id number] 600mg Take 1 [facility] 600 mg 3-28 tablet by [facility] of tablet 00:00: mouth [place] 00 every 6 Medical (six) Branch hours as needed for Pain (scale 1-3) or Pain (scale 4-6). acetaminoph 2023-0 Yes [id number] 650mg Take 2 [facility] en 3-28 tablets by [facility] of (TYLENOL) 00:00: mouth [place] 325 mg 00 every 6 Medical tablet (six) Branch hours as needed for Pain (scale 1-3) or Pain (scale 4-6). ibuprofen 3-0 Yes [id number] 600mg Take 1 [facility] 600 mg 3-28 tablet by [facility] of tablet 00:00: mouth [place] 00 every 6 Medical (six) Branch hours as needed for Pain (scale 1-3) or Pain (scale 4-6). acetaminoph 2023-0 Yes [id number] 650mg Take 2 [facility] en 3-28 tablets by [facility] of (TYLENOL) 00:00: mouth [place] 325 mg 00 every 6 Medical tablet (six) Branch hours as needed for Pain (scale 1-3) or Pain (scale 4-6). ibuprofen 2023-0 Yes [id number] 600mg Take 1 [facility] 600 mg 3-28 tablet by [facility] of tablet 00:00: mouth [place] 00 every 6 Medical (six) Branch hours as needed for Pain (scale 1-3) or Pain (scale 4-6). acetaminoph 2023-0 Yes [id number] 650mg Take 2 [facility] en 3-28 tablets by [facility] of (TYLENOL) 00:00: mouth [place] 325 mg 00 every 6 Medical tablet (six) Branch hours as needed for Pain (scale 1-3) or Pain (scale 4-6). ibuprofen 2023-0 Yes [id number] 600mg Take 1 [facility] 600 mg 3-28 tablet by [facility] of tablet 00:00: mouth [place] 00 every 6 Medical (six) Branch hours as needed for Pain (scale 1-3) or Pain (scale 4-6). acetaminoph 2023-0 Yes [id number] 650mg Take 2 [facility] en 3-28 tablets by [facility] of (TYLENOL) 00:00: mouth [place] 325 mg 00 every 6 Medical tablet (six) Branch hours as needed for Pain (scale 1-3) or Pain (scale 4-6). ibuprofen 2022-0 Yes [id number] 600mg Take 1 [facility] 600 mg 3-28 tablet by [facility] of tablet 00:00: mouth [place] 00 every 6 Medical (six) Branch hours as needed for Pain (scale 1-3) or Pain (scale 4-6). acetaminoph 3-0 Yes [id number] 650mg Take 2 [facility] en 3-28 tablets by [facility] of (TYLENOL) 00:00: mouth [place] 325 mg 00 every 6 Medical tablet (six) Branch hours as needed for Pain (scale 1-3) or Pain (scale 4-6). ibuprofen 3-0 Yes [id number] 600mg Take 1 [facility] 600 mg 3-28 tablet by [facility] of tablet 00:00: mouth [place] 00 every 6 Medical (six) Branch hours as needed for Pain (scale 1-3) or Pain (scale 4-6). acetaminoph 2023-0 Yes [id number] 650mg Take 2 [facility] en 3-28 tablets by [facility] of (TYLENOL) 00:00: mouth [place] 325 mg 00 every 6 Medical tablet (six) Branch hours as needed for Pain (scale 1-3) or Pain (scale 4-6). ibuprofen 2023-0 Yes [id number] 600mg Take 1 [facility] 600 mg 3-28 tablet by [facility] of tablet 00:00: mouth [place] 00 every 6 Medical (six) Branch hours as needed for Pain (scale 1-3) or Pain (scale 4-6). acetaminoph 3-0 Yes [id number] 650mg Take 2 [facility] en 3-28 tablets by [facility] of (TYLENOL) 00:00: mouth [place] 325 mg 00 every 6 Medical tablet (six) Branch hours as needed for Pain (scale 1-3) or Pain (scale 4-6). ibuprofen 2022-0 Yes [id number] 600mg Take 1 [facility] 600 mg 3-28 tablet by [facility] of tablet 00:00: mouth [place] 00 every 6 Medical (six) Branch hours as needed for Pain (scale 1-3) or Pain (scale 4-6). acetaminoph 2022-0 Yes [id number] 650mg Take 2 [facility] en 3-28 tablets by [facility] of (TYLENOL) 00:00: mouth [place] 325 mg 00 every 6 Medical tablet (six) Branch hours as needed for Pain (scale 1-3) or Pain (scale 4-6). ibuprofen 2022-0 Yes [id number] 600mg Take 1 [facility] 600 mg 3-28 tablet by [facility] of tablet 00:00: mouth [place] 00 every 6 Medical (six) Branch hours as needed for Pain (scale 1-3) or Pain (scale 4-6). acetaminoph 2022-0 Yes [id number] 650mg Take 2 [facility] en 3-28 tablets by [facility] of (TYLENOL) 00:00: mouth [place] 325 mg 00 every 6 Medical tablet (six) Branch hours as needed for Pain (scale 1-3) or Pain (scale 4-6). ibuprofen 2022-0 Yes [id number] 600mg Take 1 [facility] 600 mg 3-28 tablet by [facility] of tablet 00:00: mouth [place] 00 every 6 Medical (six) Branch hours as needed for Pain (scale 1-3) or Pain (scale 4-6). HYDROcodone 2022-0 2022- Yes [id number] 1{tbl} Take 1 [facility] -acetaminop 3-28 03-30 tablet by it y of hen 5-325 00:00: 04:59 mouth [place] mg tablet 00 :00 every 6 Medical (six) Branch hours as needed for Pain (scale 7-10) for up to 1 day. Indication s: acute pain HYDROcodone 2022-0 2022- Yes [id number] 1{tbl} Take 1 [facility] -acetaminop 3-28 03-30 tablet by it y of hen 5-325 00:00: 04:59 mouth [place] mg tablet 00 :00 every 6 Medical (six) Branch hours as needed for Pain (scale 7-10) for up to 1 day. Indication s: acute pain HYDROcodone 2022-0 3- Yes [id number] 1{tbl} Take 1 [facility] -acetaminop 3-28 03-30 tablet by it y of hen 5-325 00:00: 04:59 mouth [place] mg tablet 00 :00 every 6 Medical (six) Branch hours as needed for Pain (scale 7-10) for up to 1 day. Indication s: acute pain traMADoL 50 2022-0 Yes 50mg Take 1 [facility] ers mg tablet 2-27 tablet by ity o f 00:00: mouth as [place] 00 needed. Medical Branch traMADoL 50 2022-0 Yes 50mg Take 1 [facility] ers mg tablet 2-27 tablet by ity o f 00:00: mouth as [place] 00 needed. Medical Branch traMADoL 50 2022-0 Yes 50mg Take 1 [facility] ers mg tablet 2-27 tablet by ity o f 00:00: mouth as [place] 00 needed. Medical Branch traMADoL 50 2022-0 Yes 50mg Take 1 [facility] ers mg tablet 2-27 tablet by ity o f 00:00: mouth as [place] 00 needed. Medical Branch traMADoL 50 2022-0 Yes 50mg Take 1 [facility] ers mg tablet 2-27 tablet by ity o f 00:00: mouth as [place] 00 needed. Medical Branch traMADoL 50 2022-0 Yes 50mg Take 1 [facility] ers mg tablet 2-27 tablet by ity o f 00:00: mouth as [place] 00 needed. Medical Branch traMADoL 50 2022-0 Yes 50mg Take 1 [facility] ers mg tablet 2-27 tablet by ity o f 00:00: mouth as [place] 00 needed. Medical Branch traMADoL 50 2022-0 Yes 50mg Take 1 [facility] ers mg tablet 2-27 tablet by ity o f 00:00: mouth as [place] 00 needed. Medical Branch traMADoL 50 2022-0 Yes 50mg Take 1 [facility] ers mg tablet 2-27 tablet by ity o f 00:00: mouth as [place] 00 needed. Medical Branch traMADoL 50 2022-0 Yes 50mg Take 1 [facility] ers mg tablet 2-27 tablet by ity o f 00:00: mouth as [place] 00 needed. Medical Branch traMADoL 50 2022-0 Yes 50mg Take 1 [facility] ers mg tablet 2-27 tablet by ity o f 00:00: mouth as [place] 00 needed. Medical Branch traMADoL 50 3-0 Yes 50mg Take 1 [facility] mg tablet 2-27 tablet by ity o f 00:00: mouth as [place] 00 needed. Medical Branch traMADoL 50 2022-0 Yes 50mg Take 1 [facility] mg tablet 2-27 tablet by ity o f 00:00: mouth as [place] 00 needed. Medical Branch traMADoL 50 2022-0 Yes 50mg Take 1 [facility] ers mg tablet 2-27 tablet by ity o f 00:00: mouth as [place] 00 needed. Medical Branch traMADoL 50 3-0 Yes 50mg Take 1 [facility] mg tablet 2-27 tablet by ity o f 00:00: mouth as [place] 00 needed. Medical Branch traMADoL 50 2022-0 Yes 50mg Take 1 [facility] ers mg tablet 2-27 tablet by ity o f 00:00: mouth as [place] 00 needed. Medical Branch traMADoL 50 2022-0 Yes 50mg Take 1 [facility] ers mg tablet 2-27 tablet by ity o f 00:00: mouth as [place] 00 needed. Medical Branch traMADoL 50 3-0 Yes 50mg Take 1 [facility] ers mg tablet 2-27 tablet by ity o f 00:00: mouth as [place] 00 needed. Medical Branch traMADoL 50 3-0 Yes 50mg Take 1 [facility] ers mg tablet 2-27 tablet by ity o f 00:00: mouth as [place] 00 needed. Medical Branch traMADoL 50 3-0 Yes 50mg Take 1 [facility] mg tablet 2-27 tablet by ity o f 00:00: mouth as [place] 00 needed. Medical Branch traMADoL 50 3-0 Yes 50mg Take 1 [facility] mg tablet 2-27 tablet by ity o f 00:00: mouth as [place] 00 needed. Medical Branch traMADoL 50 3-0 Yes 50mg Take 1 [facility] ers mg tablet 2-27 tablet by ity o f 00:00: mouth as [place] 00 needed. Medical Branch traMADoL 50 3-0 Yes 50mg Take 1 [facility] mg tablet 2-27 tablet by ity o f 00:00: mouth as [place] 00 needed. Medical Branch traMADoL 50 2022-0 Yes 50mg Take 1 [facility] mg tablet 2-27 tablet by ity o f 00:00: mouth as [place] 00 needed. Medical Branch traMADoL 50 3-0 Yes 50mg Take 1 [facility] ers mg tablet 2-27 tablet by ity o f 00:00: mouth as [place] 00 needed. Medical Branch traMADoL 50 3-0 Yes 50mg Take 1 [facility] ers mg tablet 2-27 tablet by ity o f 00:00: mouth as [place] 00 needed. Medical Branch traMADoL 50 3-0 Yes 50mg Take 1 [facility] mg tablet 2-27 tablet by ity o f 00:00: mouth as [place] 00 needed. Medical Branch traMADoL 50 3-0 Yes 50mg Take 1 [facility] mg tablet 2-27 tablet by ity o f 00:00: mouth as [place] 00 needed. Medical Branch traMADoL 50 3-0 Yes 50mg Take 1 [facility] mg tablet 2-27 tablet by ity o f 00:00: mouth as [place] 00 needed. Medical Branch traMADoL 50 3-0 Yes 50mg Take 1 [facility] ers mg tablet 2-27 tablet by ity o f 00:00: mouth as [place] 00 needed. Medical Branch traMADoL 50 3-0 Yes 50mg Take 1 [facility] ers mg tablet 2-27 tablet by ity o f 00:00: mouth as [place] 00 needed. Medical Branch traMADoL 50 3-0 Yes 50mg Take 1 [facility] mg tablet 2-27 tablet by ity o f 00:00: mouth as [place] 00 needed. Medical Branch traMADoL 50 3-0 Yes 50mg Take 1 [facility] ers mg tablet 2-27 tablet by ity o f 00:00: mouth as [place] 00 needed. Medical Branch traMADoL 50 3-0 Yes 50mg Take 1 [facility] ers mg tablet 2-27 tablet by ity o f 00:00: mouth as [place] 00 needed. Medical Branch traMADoL 50 3-0 Yes 50mg Take 1 [facility] ers mg tablet 2-27 tablet by ity o f 00:00: mouth as [place] 00 needed. Medical Branch traMADoL 50 3-0 Yes 50mg Take 1 [facility] ers mg tablet 2-27 tablet by ity o f 00:00: mouth as [place] 00 needed. Medical Branch traMADoL 50 3-0 Yes 50mg Take 1 [facility] ers mg tablet 2-27 tablet by ity o f 00:00: mouth as [place] 00 needed. Medical Branch traMADoL 50 2022-0 Yes 50mg Take 1 [facility] ers mg tablet 2-27 tablet by ity o f 00:00: mouth as [place] 00 needed. Medical Branch traMADoL 50 2022-0 Yes 50mg Take 1 [facility] ers mg tablet 2-27 tablet by ity o f 00:00: mouth as needed. Medical Branch traMADoL 50 2022-0 Yes 50mg Take 1 [facility] ers mg tablet 2-27 tablet by ity o f 00:00: mouth as [place] needed. Medical Branch traMADoL 50 2022-0 Yes 50mg Take 1 [facility] mg tablet 2-27 tablet by ity o f 00:00: mouth as needed. Medical Branch traMADoL 50 2022-0 Yes 50mg Take 1 [facility] mg tablet 2-27 tablet by ity o f 00:00: mouth as [place] 00 needed. Medical Branch methylPREDN 3-0 Yes [id number] Take by [facility] ISolone 4 2-21 mouth [facility] mg tablets 00:00: SEE-INSTRU [place] 00 CTIONS. Medical follow Branch package directions methylPREDN 3-0 Yes [id number] Take by [facility] ISolone 4 2-21 mouth [facility] mg tablets 00:00: SEE-INSTRU [place] 00 CTIONS. Medical follow Branch package directions methylPREDN 3-0 Yes [id number] Take by [facility] ISolone 4 2-21 mouth [facility] of mg tablets 00:00: SEE-INSTRU [place] 00 CTIONS. Medical follow Branch package directions methylPREDN 3-0 Yes [id number] Take by [facility] ISolone 4 2-21 mouth [facility] of mg tablets 00:00: SEE-INSTRU [place] 00 CTIONS. Medical follow Branch package directions methylPREDN 2023-0 Yes [id number] Take by [facility] ISolone 4 2-21 mouth [facility] of mg tablets 00:00: SEE-INSTRU [place] 00 CTIONS. Medical follow Branch package directions methylPREDN 2023-0 Yes [id number] Take by [facility] ISolone 4 2-21 mouth [facility] of mg tablets 00:00: SEE-INSTRU [place] 00 CTIONS. Medical follow Branch package directions methylPREDN 2023-0 2023- No [id number] Take by [facility] ISolone 4 11-22 mouth [facility] of mg tablets 00:00: 00:00 SEE-INSTRU [place] 00 :00 CTIONS. Medical follow Branch package directions methylPREDN 0 2022- No [id number] Take by [facility] ISolone 4 11-22 mouth it[facility] of mg tablets 00:00: 00:00 SEE-INSTRU [place] 00 :00 CTIONS. Medical follow Branch package directions miSOPROStoL 2022-0 Yes [id number] Take one [facility] 200 mcg 2-15 tablet ity of tablet 00:00: night [place] 00 before Medical procedure, Branch then take one tablet morning of procedure miSOPROStoL 2022-0 Yes [id number] Take one [facility] 200 mcg 2-15 tablet ity of tablet 00:00: night [place] 00 before Medical procedure, Branch then take one tablet morning of procedure miSOPROStoL 2022-0 Yes [id number] Take one [facility] 200 mcg 2-15 tablet ity of tablet 00:00: night [place] 00 before Medical procedure, Branch then take one tablet morning of procedure miSOPROStoL 2022-0 Yes [id number] Take one [facility] 200 mcg 2-15 tablet ity of tablet 00:00: night [place] 00 before Medical procedure, Branch then take one tablet morning of procedure miSOPROStoL 2022-0 Yes [id number] Take one [facility] 200 mcg 2-15 tablet ity of tablet 00:00: night [place] 00 before Medical procedure, Branch then take one tablet morning of procedure miSOPROStoL 2022-0 Yes [id number] Take one [facility] 200 mcg 2-15 tablet ity of tablet 00:00: night [place] 00 before Medical procedure, Branch then take one tablet morning of procedure miSOPROStoL 2022-0 Yes [id number] Take one [facility] 200 mcg 2-15 tablet ity of tablet 00:00: night [place] 00 before Medical procedure, Branch then take one tablet morning of procedure miSOPROStoL 2022-0 Yes [id number] Take one [facility] 200 mcg 2-15 tablet ity of tablet 00:00: night [place] 00 before Medical procedure, Branch then take one tablet morning of procedure miSOPROStoL 3-0 2023- No [id number] Take one [facility] 200 mcg 2-15 11-29 tablet ity of tablet 00:00: 00:00 night [place] 00 :00 before Medical procedure, Branch then take one tablet morning of procedure miSOPROStoL 2022- No [id number] Take one [facility] 200 mcg 2-15 - tablet ity of tablet 00:00: 00:00 night [place] 00 :00 before Medical procedure, Branch then take one tablet morning of procedure metroNIDAZO 2022-0 Yes [id number] 500mg Take 1 [facility] LE 500 mg 1-31 tablet by ity o f tablet 00:00: mouth [place] 00 every 12 Medical (twelve) Branch hours. metroNIDAZO 2022-0 Yes [id number] 500mg Take 1 [facility] LE 500 mg 1-31 tablet by ity o f tablet 00:00: mouth [place] 00 every 12 Medical (twelve) Branch hours. metroNIDAZO 2022-0 Yes [id number] 500mg Take 1 [facility] LE 500 mg 1-31 tablet by ity o f tablet 00:00: mouth [place] 00 every 12 Medical (twelve) Branch hours. metroNIDAZO 2022-0 Yes [id number] 500mg Take 1 [facility] LE 500 mg 1-31 tablet by ity o f tablet 00:00: mouth [place] 00 every 12 Medical (twelve) Branch hours. metroNIDAZO 2022-0 Yes [id number] 500mg Take 1 [facility] LE 500 mg 1-31 tablet by ity o f tablet 00:00: mouth [place] 00 every 12 Medical (twelve) Branch hours. metroNIDAZO 2022-0 Yes [id number] 500mg Take 1 [facility] LE 500 mg 1-31 tablet by ity o f tablet 00:00: mouth [place] 00 every 12 Medical (twelve) Branch hours. metroNIDAZO 2022-0 Yes [id number] 500mg Take 1 [facility] LE 500 mg 1-31 tablet by ity o f tablet 00:00: mouth [place] 00 every 12 Medical (twelve) Branch hours. metroNIDAZO 2022-0 Yes [id number] 500mg Take 1 [facility] LE 500 mg 1-31 tablet by ity o f tablet 00:00: mouth [place] 00 every 12 Medical (twelve) Branch hours. metroNIDAZO 2022-0 Yes [id number] 500mg Take 1 [facility] LE 500 mg 1-31 tablet by ity o f tablet 00:00: mouth [place] 00 every 12 Medical (twelve) Branch hours. metroNIDAZO 2022-0 Yes [id number] 500mg Take 1 [facility] LE 500 mg 1-31 tablet by ity o f tablet 00:00: mouth [place] 00 every 12 Medical (twelve) Branch hours. metroNIDAZO 2023-0 Yes [id number] 500mg Take 1 [facility] LE 500 mg 1-31 tablet by ity o f tablet 00:00: mouth [place] 00 every 12 Medical (twelve) Branch hours. metroNIDAZO 2023-0 Yes [id number] 500mg Take 1 [facility] LE 500 mg 1-31 tablet by ity o f tablet 00:00: mouth [place] 00 every 12 Medical (twelve) Branch hours. metroNIDAZO 2023-0 Yes [id number] 500mg Take 1 [facility] LE 500 mg 1-31 tablet by ity o f tablet 00:00: mouth [place] 00 every 12 Medical (twelve) Branch hours. metroNIDAZO 2023-0 Yes [id number] 500mg Take 1 [facility] LE 500 mg 1-31 tablet by ity o f tablet 00:00: mouth [place] 00 every 12 Medical (twelve) Branch hours. metroNIDAZO 3-0 Yes [id number] 500mg Take 1 [facility] LE 500 mg 1-31 tablet by ity o f tablet 00:00: mouth [place] 00 every 12 Medical (twelve) Branch hours. metroNIDAZO 3-0 Yes [id number] 500mg Take 1 [facility] LE 500 mg 1-31 tablet by ity o f tablet 00:00: mouth [place] 00 every 12 Medical (twelve) Branch hours. metroNIDAZO 3-0 Yes [id number] 500mg Take 1 [facility] LE 500 mg 1-31 tablet by ity o f tablet 00:00: mouth [place] 00 every 12 Medical (twelve) Branch hours. metroNIDAZO 3-0 Yes [id number] 500mg Take 1 [facility] LE 500 mg 1-31 tablet by ity o f tablet 00:00: mouth [place] 00 every 12 Medical (twelve) Branch hours. metroNIDAZO 2023-0 2023- No [id number] 500mg Take 1 [facility] LE 500 mg 1-31 02-28 tablet by [facility]y of tablet 00:00: 00:00 mouth [place] 00 :00 every 12 Medical (twelve) Branch hours. metroNIDAZO 2023-0 2023- No [id number] 500mg Take 1 [facility] LE 500 mg 1-31 02-28 tablet by ity of tablet 00:00: 00:00 mouth [place] 00 :00 every 12 Medical (twelve) Branch hours. fluconazole 2023-0 2023- No [id number] 150mg Take 1 [facility] (DIFLUCAN) 11-01 tablet by [facility] of 150 mg 00:00: 05:59 mouth [place] tablet 00 :00 now for 1 Medical dose. Branch Dose 2021-10 No Unknown 2-18 00:00: 00 [...] No Unknown 2-15 00:00: 00 TAKE 2 2021- No TABLETS BY 2-15 MOUTH 00:00: TAKE 1 TABLET DAILY FOR 4 DAYS Dose 2021-10 No Unknown 2-15 00:00: 00 Dose 2021- No Unknown 2-15 00:00: 00 Dose 2021- No Unknown 2-15 00:00: 00 TAKE 1 2021- No TABLET BY 2-15 MOUTH EVERY 00:00: DAY 00 Dose 2021- No Unknown 2-15 00:00: 00 TAKE 1 2021- No TABLET BY 2-15 MOUTH THREE 00:00: TIMES A DAY 00 NEEDED FOR PAIN Dose 2021-10 No Unknown 2-15 00:00: 00 TAKE 10 ML 2021- No BY MOUTH 2-15 EVERY 4 00:00: HOURS 00 Dose 2021-10 No Unknown 2-15 00:00: [...] No Unknown 2-15 00:00: 00 TAKE 2 2021- No TABLETS BY 2-15 MOUTH 00:00: TAKE 1 TABLET DAILY FOR 4 DAYS Dose 2021-10 No Unknown 2-15 00:00: 00 Dose 2021- [...] 2021-1 No TABLETS BY 2-15 MOUTH 00:00: , THEN 00 TAKE 1 TABLET DAILY FOR 4 DAYS [...] Dose 2021- No Unknown 2-15 00:00: 00 Mobic 7.5 Mobic 7.5 2021-10- No 1{table QD Mobic 7.5 MG MG 2-15 10-15 t} MG 00:00: 00:00 00 :00 Mobic 7.5 Mobic 7.5 2021-2022- No 1{table QD Mobic 7.5 MG MG 2-15 10-15 t} MG 00:00: 00:00 00 :00 Mobic 7.5 Mobic 7.5 2021-1 3- No 1{table QD Mobic 7.5 MG MG 11-16 t} MG 00:00: 00:00 00 :00 Dose 2022-0 No 500 Unknown 06-09 00:00: 00 TAKE 1 2-0 No CAPSULE BY 9-08 MOUTH TWICE 00:00: A DAY 00 TAKE 1 2-0 No TABLET BY 9-08 MOUTH TWICE 00:00: A DAY 00 TAKE 1 2-0 No CAPSULE BY 9-08 MOUTH TWICE 00:00: A DAY 00 Dose 2022-0 No Unknown 06-09 00:00: 00 TAKE 1 2-0 No CAPSULE BY 9-08 MOUTH TWICE 00:00: A DAY 00 Dose 2-0 No Unknown 06-09 00:00: 00 TAKE 1 2-0 No CAPSULE BY 9-08 MOUTH TWICE 00:00: A DAY 00 Dose 2-0 No Unknown 06-09 00:00: 00 TAKE 1 2-0 No CAPSULE BY 9-08 MOUTH TWICE 00:00: A DAY 00 Dose 2022-0 No 500 Unknown 06-09 00:00: 00 TAKE 1 2-0 No CAPSULE BY 9-08 MOUTH TWICE 00:00: A DAY 00 Dose 2022-0 No 500 Unknown 06-09 00:00: 00 TAKE 1 2-0 No CAPSULE BY 9-08 MOUTH TWICE 00:00: A DAY 00 Dose 2022-0 No 500 Unknown 06-09 00:00: 00 TAKE 1 2-0 No CAPSULE BY 9-08 MOUTH TWICE 00:00: A DAY 00 TAKE 1 2-0 No CAPSULE 9-06 TWICE 00:00: DAILY. 00 TAKE 1 2-0 No CAPSULE 9-06 TWICE 00:00: DAILY. 00 TAKE 1 2-0 No CAPSULE 9-06 TWICE 00:00: DAILY. 00 TAKE 1 2-0 No CAPSULE 9-06 TWICE 00:00: DAILY. 00 TAKE 1 2-0 No CAPSULE 9-06 TWICE 00:00: DAILY. 00 TAKE 1 2-0 No 100 CAPSULE 9-06 TWICE 00:00: DAILY. 00 TAKE 1 2-0 No CAPSULE 9-06 TWICE 00:00: DAILY. 00 [...] PAIN SPRAY 2 2-0 No SPRAYS INTO -08 EACH 00:00: NOSTRIL 00 EVERY DAY Dose [...] PAIN SPRAY 2 2022-0 No SPRAYS INTO -08 EACH 00:00: NOSTRIL 00 EVERY DAY Dose [...] PAIN SPRAY 2 2022-0 No SPRAYS INTO - EACH 00:00: NOSTRIL 00 EVERY DAY Dose [...] PAIN SPRAY 2 2022-0 No SPRAYS INTO - EACH 00:00: NOSTRIL 00 EVERY DAY Dose [...] PAIN SPRAY 2 2022-0 No SPRAYS INTO - EACH 00:00: NOSTRIL 00 EVERY DAY Dose [...] No 250 TABLETS BY 8-08 MOUTH 00:00: TODAY, THEN 00 TAKE 1 TABLET DAILY FOR 4 DAYS [...] No 325 TABLET BY 7-27 MOUTH ONCE 00:: A DAY 00 TAKE 1 2022-0 No 10 TABLET BY 7-27 MOUTH EVERY 00:00: DAY 00 TAKE 1 2022-0 No 325 TABLET BY 7-27 MOUTH ONCE 00:: A DAY 00 TAKE 1 2022-0 No 10 TABLET BY 7-27 MOUTH EVERY 00:00: DAY 00 TAKE 1 2022-0 No 325 TABLET BY 7-27 MOUTH ONCE 00:: A DAY 00 TAKE 1 2022-0 No 10 TABLET BY 7-27 MOUTH EVERY 00:00: DAY 00 TAKE 1 2022-0 No 325 TABLET BY 7-27 MOUTH ONCE 00:: A 00 TAKE 1 2022-0 No 10 TABLET [...] tablet 00:00: 00 Dose 2022-0 No Unknown 7- 00:00: 00 TAKE 1 2022-0 No 325 TABLET BY 7-22 MOUTH EVERY 00:00: DAY 00 TAKE 1 2022-0 No 500 TABLET BY 7-22 MOUTH TWICE 00:00: A DAY 00 TAKE 1 2022-0 No 10 TABLET BY 7-22 MOUTH EVERY 00:00: DAY 00 hydroxyzine 2022-0 No 1mg HCl 25 mg 7-22 tablet 00:00: 00 Dose 2022-0 No Unknown 7-22 00:00: 00 TAKE 1 2022-0 No 325 TABLET BY 7-22 MOUTH EVERY 00:00: DAY 00 TAKE 1 2022-0 No 500 TABLET BY 7-22 MOUTH TWICE 00:00: A DAY 00 TAKE 1 2022-0 No 10 TABLET BY 7-22 MOUTH EVERY 00:00: DAY 00 hydroxyzine 2022-0 No 1mg HCl 25 mg 7-22 tablet 00:00: 00 Dose 2022-0 No Unknown 7- 00:00: 00 TAKE 1 2022-0 No 325 TABLET BY 7-22 MOUTH EVERY 00:00: DAY 00 TAKE 1 2022-0 No 500 TABLET BY 7-22 MOUTH TWICE 00:00: A DAY 00 TAKE 1 2022-0 No 10 TABLET BY 7-22 MOUTH EVERY 00:00: DAY 00 hydroxyzine 2022-0 No 1mg HCl 25 mg 7-22 tablet 00:00: 00 Dose 2022-0 No Unknown 7- 00:00: 00 TAKE 1 2022-0 No 325 [...] No 10 TABLET BY 7-22 MOUTH EVERY 00:: 00 escitalopra 2022-0 No 1mg m 10 [...] 500 TABLET BY 7-22 MOUTH TWICE 00:: 00 TAKE 1 2022-0 No 10 TABLET BY 7-22 MOUTH EVERY 00:00: DAY 00 TAKE 1 2022-0 No TABLET 6-22 SINGLE 00:00: DOSSE 00 Dose 2022-0 No Unknown 6- 00:00: 00 TAKE 2 2022-0 No TABLETS BY 6-22 MOUTH 00:00: , TAKE 1 TABLET DAILY FOR 4 DAYS TAKE 1 2022-0 No TABLET 6-22 SINGLE 00:00: DOSSE 00 Dose 2022-0 No Unknown 6- 00:00: 00 TAKE 2 2022-0 No TABLETS BY 6-22 MOUTH 00:00: TAKE 1 TABLET DAILY FOR 4 DAYS TAKE 1 2-0 No TABLET - SINGLE 00:00: DOSSE 00 Dose 2022-0 No Unknown 03-23 00:00: 00 TAKE 2 2022-0 No TABLETS BY 03-23 MOUTH 00:00: TAKE 1 TABLET DAILY FOR 4 DAYS TAKE 1 2-0 No TABLET 03-23 SINGLE 00:00: DOSSE 00 Dose 2022-0 No Unknown 03-23 00:00: 00 TAKE 2 [...] TABLET 03-23 SINGLE 00:00: DOSSE 00 Dose 2022-0 No Unknown 03-23 00:00: 00 TAKE 2 2-0 No TABLETS BY 03-23 MOUTH 00:00: TAKE 1 TABLET DAILY FOR 4 DAYS TAKE 1 2-0 No TABLET 6-22 SINGLE 00:00: DOSSE 00 Dose 2-0 No Unknown 22 00:00: 00 TAKE 2 2-0 No TABLETS BY 6-22 MOUTH 00:00: TAKE 1 TABLET DAILY FOR 4 DAYS metronidazo 2-0 No 1mg le 500 mg 6-17 tablet 00:00: 00 Dose 2021-0 No Unknown 17 00:00: 00 SPRAY 2 [...] tablet 00:00: 00 Dose 2021-0 No Unknown 617 00:00: 00 SPRAY 2 2-0 No SPRAYS [...] tablet 00:00: 00 Dose 2-0 No Unknown 03-18 00:00: 00 SPRAY 2 2-0 No SPRAYS [...] tablet 00:00: 00 Dose 2-0 No Unknown 03-18 00:00: 00 SPRAY 2 2-0 No SPRAYS [...] DAY 00 NEEDED FOR COUGH TAKE 1 2-0 No CAPSULE BY 6-17 [...] A DAY 00 NEEDED FOR COUGH metronidazo 2021-0 No 1mg le 500 mg 6-17 tablet [...] Claritin 10 2021-0 No 1mg mg tablet 12-10 00:00: 00 fluticasone 2021-0 No 2mcg/ac propionate 12-10 tuation 50 00:00: mcg/actuati 00 on nasal spray,suspe nsion Dose 2021-0 No Unknown 12-10 00:00: 00 fluticasone 2-0 No 2mcg/ac propionate 3-11 tuation 50 00:00: mcg/actuati 00 on nasal spray,suspe nsion Dose 2021-0 No Unknown 3 00:00: 00 Dose 2-0 No Unknown 3 00:00: 00 Dose 2-0 No Unknown 3 00:00: 00 Dose 2-0 No Unknown 3 00:00: 00 Dose 2-0 No Unknown 3 00:00: 00 Dose 2-0 No Unknown 12-10 00:00: 00 Claritin 10 2021-0 No 1mg mg tablet 3 00:00: 00 fluticasone 2021-0 No 2mcg/ac propionate 3 tuation 50 00:00: mcg/actuati 00 on nasal spray,suspe nsion Claritin 10 2021-0 No 1mg mg tablet 3 00:00: 00 fluticasone 2021-0 No 2mcg/ac propionate 311 tuation 50 00:00: mcg/actuati 00 on nasal spray,suspe nsion Claritin 10 2021-0 No 1mg mg tablet 3 00:00: 00 fluticasone 2021-0 No 2mcg/ac propionate 3-11 tuation 50 00:00: [...] mg 2-16 capsule 00:00: 00 ProAir HFA 2022-0 No 2mcg/ac 90 2-16 tuation mcg/actuati 00:00: [...] mg 2-15 tablet 00:00: 00 Bromfed DM 2021-1 No 10mg/5 2 mg-30 2-15 mL mg-10 mg/5 00:00: mL oral 00 syrup amoxicillin 1-1 No 1mg 875 mg 2-15 tablet 00:00: 00 Bromfed DM 2020-1 No 10mg/5 2 mg-30 2-15 mL mg-10 mg/5 00:00: mL oral 00 syrup amoxicillin 2020-1 No 1mg 875 mg 2-15 tablet 00:00: 00 Bromfed DM 2020- No 10mg/5 2 mg-30 2-15 mL mg-10 mg/5 00:00: mL oral 00 syrup amoxicillin 2020- No 1mg 875 mg 2-15 tablet 00:00: 00 Bromfed DM 2020-1 No 10mg/5 2 mg-30 2-15 mL mg-10 mg/5 00:00: mL oral 00 syrup amoxicillin 2020- No 1mg 875 mg 2-15 tablet 00:00: 00 Bromfed DM 2020-1 No 10mg/5 2 mg-30 2-15 mL mg-10 mg/5 00:00: mL oral 00 syrup amoxicillin 2020-1 No 1mg 875 mg 2-15 tablet 00:00[facility] No 10[facility]/5 2 mg-30 2-15 mL mg-10 mg/5 00:00: mL oral 00 syrup amoxicillin 2020-1 No 1mg 875 mg 2-15 tablet 00:00: 00 [facility]- No 10mg/5 2 mg-30 2-15 mL mg-10 [...] 500 mg 2-12 tablet 00:00: 00 metronidazo 1-1 No 1mg le 500 mg 2-12 tablet 00:00: 00 metronidazo 1-1 No 1mg le 500 mg 2-12 tablet 00:00: 00 ibuprofen 1-1 No 1mg 800 mg 2-11 tablet 00:00: 00 ibuprofen 1-1 No 1mg 800 mg 2-11 tablet 00:00: 00 ibuprofen 1-1 No 1mg 800 mg 2-11 tablet 00:00: 00 ibuprofen 1-1 No 1mg 800 mg 2-11 tablet 00:00: 00 ibuprofen 1-1 No 1mg 800 mg 2-11 tablet 00:00: 00 ibuprofen 1-1 No 1mg 800 mg 2-11 tablet 00:00: 00 ibuprofen 1-1 No 1mg 800 mg 2-11 tablet 00:00: 00 ibuprofen 1-1 No 1mg 800 mg 2-11 tablet 00:00: 00 ibuprofen 1-1 No 1mg 800 mg 2-11 tablet 00:00: 00 ibuprofen 1-1 No 1mg 800 mg 2-11 tablet 00:00: 00 ibuprofen 1-1 No 1mg 800 mg 2-11 tablet 00:00: 00 Ferrous Ferrous 1-0 No 1{table QD Ferrous Sulfate 325 Sulfate 325 9-08 t} Sulfate (65 Fe) mg (65 Fe) mg 00:00: 325 (65 00 Fe) mg Ferrous Ferrous 1-0 No 1{table QD Ferrous Sulfate 325 Sulfate 325 9-08 t} Sulfate (65 Fe) mg (65 Fe) mg 00:00: 325 (65 00 Fe) mg Macrobid 2020-0 No 1mg 100 mg 6-05 capsule 00:00: 00 Macrobid 1-0 No 1mg 100 mg 6-05 capsule 00:00: 00 Macrobid 1-0 No 1mg 100 mg 6-05 capsule 00:00: 00 Macrobid 1-0 No 1mg 100 mg 6-05 capsule 00:00: 00 Macrobid 1-0 No 1mg 100 mg 6-05 capsule 00:00: 00 Macrobid 1-0 No 1mg 100 mg 6-05 capsule 00:00: 00 Macrobid 1-0 No 1mg 100 mg 6-05 capsule 00:00: [...] Flagyl 500 2021-0 No 1mg mg tablet 6-04 00:00: 00 Diflucan 2020-0 No 1mg 150 mg 6-04 tablet 00:00: [...] pirit one) one) 00:00: - [facility] 00 [facility] Singulair Singulair 2020-0 No 1{table QD Singulair 10 MG 10 MG 2-02 t} 10 MG 00:00: 00 Kenalog Kenalog 2020-0 No 40mg Common (Triamcinol (Triamcinol 2-02 S pirit one) one) 00:00: - [facility] 00 [facility] Singulair Singulair 2020-0 No 1{table QD Singulair 10 MG 10 MG 2-02 t} 10 MG 00:00: 00 Kenalog Kenalog 2020-0 No 40mg Common (Triamcinol (Triamcinol 2-02 S pirit one) one) 00:00: - [facility] 00 [facility] Singulair Singulair 2020-0 No 1{table QD Singulair 10 MG 10 MG 2-02 t} 10 MG 00:00: 00 Kenalog Kenalog 2020-0 No 40mg Common (Triamcinol (Triamcinol 2-02 S pirit one) one) 00:00: - [facility] 00 [facility] Singulair Singulair No 1{table QD Singulair 10 MG 10 MG 2-02 t} 10 MG 00:00: 00 Kenalog Kenalog 0 No 40mg Common (Triamcinol (Triamcinol 2-02 S pirit one) one) 00:00: - [facility] 00 [facility] Singulair Singulair No 1{table QD Singulair 10 MG 10 MG 2-02 t} 10 MG 00:00: 00 Kenalog Kenalog 0 No 40mg Common (Triamcinol (Triamcinol 2-02 S pirit one) one) 00:00: - [facility] 00 [facility] Acetaminoph Acetaminoph 2020- No 1{table BID Acetaminop en 500 MG en 500 MG 11-03-04 t_as_ne hen 500 MG 00:00: 00:00 eded} 00 :00 Acetaminoph Acetaminoph 202- No 1{table BID Acetaminop en 500 MG en 500 MG -11 04-04 t_as_ne hen 500 MG 00:00: 00:00 eded} 00 :00 Zyrtec Zyrtec 2020- No 1{table BID Zyrtec Allergy 10 Allergy 10 11-0316 t} Allergy 10 MG MG 00:00: 00:00 MG 00 :00 Zyrtec Zyrtec 2020- No 1{table BID Zyrtec Allergy 10 Allergy 10 11-03-16 t} Allergy 10 MG MG 00:00: 00:00 [...] (90 Base) MCG/ACT MCG/ACT MCG/ACT Pulse Pulse 2019- No Pulse Oximeter Oximeter 2-22 Oximeter For [...] (90 Base) MCG/ACT MCG/ACT MCG/ACT Pulse Pulse 2019- No Pulse Oximeter Oximeter 2-22 Oximeter For Finger For Finger 00:00: For Finger - - 00 - Albuterol Albuterol 2019-10 No 2{puffs 6xD Albuterol Sulfate HFA Sulfate HFA 2-22 _as_nee Sulfate 108 (90 108 (90 00:00: ded} HFA 108 Base) Base) 00 (90 Base) MCG/ACT MCG/ACT MCG/ACT Pulse Pulse 2019- No Pulse Oximeter Oximeter 2-22 Oximeter For Finger For Finger 00:00: For Finger - - 00 - Albuterol Albuterol 2019-10 No 2{puffs 6xD Albuterol Sulfate HFA Sulfate HFA 2-22 _as_nee Sulfate 108 (90 108 (90 00:00: ded} HFA 108 Base) Base) 00 (90 Base) MCG/ACT MCG/ACT MCG/ACT Pulse Pulse 2019- No Pulse Oximeter Oximeter 2-22 Oximeter For Finger For Finger 00:00: For Finger - - 00 - Pulse Pulse 2019- No Pulse Oximeter Oximeter 2-22 Oximeter For Finger For Finger 00:00: For Finger - - 00 - Albuterol Albuterol 2019-10 No 2{puffs 6xD Albuterol Sulfate HFA Sulfate HFA 2-22 _as_nee Sulfate 108 (90 108 (90 00:00: ded} HFA 108 Base) Base) 00 (90 Base) MCG/ACT MCG/ACT MCG/ACT Pulse Pulse 2019- No Pulse Oximeter Oximeter 2-22 Oximeter For Finger For Finger 00:00: For Finger - - 00 - Albuterol Albuterol 2019-10 No 2{puffs 6xD Albuterol Sulfate HFA Sulfate HFA 2-22 _as_nee Sulfate 108 (90 108 (90 00:00: ded} HFA 108 Base) Base) 00 (90 Base) MCG/ACT MCG/ACT MCG/ACT Pulse Pulse 2019- No Pulse Oximeter Oximeter 2-22 Oximeter For [...] (90 Base) MCG/ACT MCG/ACT MCG/ACT Pulse Pulse 2019- No Pulse Oximeter Oximeter 2-22 Oximeter For Finger For Finger 00:00: For Finger - - 00 - Albuterol Albuterol 2019-10 No 2{puffs 6xD Albuterol Sulfate HFA Sulfate HFA 2-22 _as_nee Sulfate 108 (90 108 (90 00:00: ded} HFA 108 Base) Base) 00 (90 Base) MCG/ACT MCG/ACT MCG/ACT Pulse Pulse 2019- No Pulse Oximeter Oximeter 2-22 Oximeter For Finger For Finger 00:00: For Finger - - 00 - Pulse Pulse 2019- No Pulse Oximeter Oximeter 2-22 Oximeter For Finger For Finger 00:00: For Finger - - 00 - Albuterol Albuterol 2019-10 No 2{puffs 6xD Albuterol Sulfate HFA Sulfate HFA 2-22 _as_nee Sulfate 108 (90 108 (90 00:00: ded} HFA 108 Base) Base) 00 (90 Base) MCG/ACT MCG/ACT MCG/ACT Pulse Pulse 2019- No Pulse Oximeter Oximeter 2-22 Oximeter For [...] Acetaminop en 500 MG en 500 MG 2-22 01-21 t_as_ne hen 500 MG 00:00: 00:00 eded} 00 [facility]{table BID Zyrtec Allergy 10 Allergy 10 11-23 t} Allergy 10 MG MG 00:00: 00:00 [facility]{table BID Zyrtec Allergy 10 Allergy 10 11-23 t} Allergy 10 MG MG 00:00: 00:00 MG 00 [facility]- No 1{table BID Zyrtec Allergy 10 Allergy 11-23 t} Allergy 10 MG MG 00:00: [...] 7-31 00:00: 00 Dose 2019-0 No Unknown 7-31 00:00: 00 Dose 2019-0 No Unknown 7-31 00:00: 00 Dose 2019-0 No Unknown 7-31 [...] Solumedrol 2018-0 No 125mg Common 125mg/2ml 125mg/2ml 9-12 Spiri t 00:00: - [facility] 00 [facility] Solumedrol Solumedrol 2018-0 No 125mg Common 125mg/2ml 125mg/2ml 9-12 Spiri t 00:00: - [facility] 00 [facility] Solumedrol Solumedrol 2018-0 No 125mg Common 125mg/2ml 125mg/2ml 9-12 Spiri t 00:00: - [facility] 00 [facility] Solumedrol Solumedrol 2018-0 No 125mg Common 125mg/2ml 125mg/2ml 9-12 Spiri t 00:00: - [facility] 00 [facility] Solumedrol Solumedrol 2018-0 No 125mg Common 125mg/2ml 125mg/2ml 9-12 Spiri t 00:00: - [facility] 00 [facility] Solumedrol Solumedrol 2018-0 No 125mg Common 125mg/2ml 125mg/2ml 9-12 Spiri t 00:00: - [facility] 00 [facility] ProAir HFA ProAir HFA 2018-0 Yes [place] 2 puffs as Common 7-17 [place] needed for Spirit 00:00: sob/wheezi - [facility] 00 ng [facility] ProAir HFA ProAir HFA 2018-0 No ProAir [...] HFA ProAir HFA 2018-0 No ProAir HFA Common 108 (90 108 (90 7-17 108 (90 Spirit Base) Base) 00:00: Base) - [facility]I MCG/ACT MCG/ACT 00 MCG/ACT [facility] ProAir HFA ProAir HFA 2017-0 No ProAir HFA 108 (90 108 (90 7-17 108 (90 Base) Base) 00:00: Base) MCG/ACT MCG/ACT 00 MCG/ACT ProAir HFA ProAir HFA 2017-0 No ProAir HFA 108 (90 108 (90 7-17 108 (90 Base) Base) 00:00: Base) MCG/ACT MCG/ACT 00 MCG/ACT Solumedrol Solumedrol 2018-0 No 125mg Common 125mg/2ml 125mg/2ml - Spiri t 00:00: - [facility] 00 [facility] Solumedrol Solumedrol 2018-0 No 125mg Common 125mg/2ml 125mg/2ml 03-23 Spiri t 00:00: - [facility] Solumedrol Solumedrol 2018-0 No 125mg Common 125mg/2ml 125mg/2ml 03-23 Spiri t 00:00: - [facility] 00 [facility] Solumedrol Solumedrol 2018-0 No 125mg Common 125mg/2ml 125mg/2ml 03-23 Spiri t 00:00: - [facility] Solumedrol Solumedrol 2018-0 No 125mg Common 125mg/2ml 125mg/2ml 03-23 Spiri t 00:00: - [facility] Solumedrol Solumedrol 2018-0 No 125mg Common 125mg/2ml 125mg/2ml 03-23 Spiri t 00:00: - [facility] 00 [facility] metronidazo 2018-0 No 1mg le 500 mg [...] pirit one) one) 00:00: - [facility] 00 [facility] Kenalog Kenalog 2018-0 No 40mg Common (Triamcinol (Triamcinol 3-06 S pirit one) one) 00:00: - [facility] 00 [facility] Kenalog Kenalog 2018-0 No 40mg Common (Triamcinol (Triamcinol 3-06 S pirit one) one) 00:00: - [facility] 00 [facility] Kenalog Kenalog 2018-0 No 40mg Common (Triamcinol (Triamcinol 3-06 S pirit one) one) 00:00: - [facility] 00 [facility] Kenalog Kenalog 2018-0 No 40mg Common (Triamcinol (Triamcinol 3-06 S pirit one) one) 00:00: - [facility] 00 [facility] Kenalog Kenalog 2018-0 No 40mg Common (Triamcinol (Triamcinol 3-06 S pirit one) one) 00:00: - [facility] 00 [facility] fluticasone 2018-0 No 2mcg/ac 50 1-03 tuation [...] Perles 100 1-03 [facility]} Take 1 Un renate ne 0.35 mg 2-01 tablet by ity of tablet 00:00: mouth [place] [address] daily[facility] Yes 1{tbl} Take 1 Un renate ne 0.35 mg 2-01 tablet by ity of tablet 00:00: mouth [place] [address] daily[address] [facility] Yes 1{tbl} Take 1 Un renate ne 0.35 mg 2-01 tablet by ity of tablet 00:00: mouth [place] [address] daily[address] [facility] Yes 1{tbl} Take 1 Un renate ne 0.35 mg 2-01 tablet by ity of tablet 00:00: mouth [place] [address] daily[address] [facility] Yes 1{tbl} Take 1 Un renate ne 0.35 mg 2-01 tablet by ity of tablet 00:00: mouth [place] [address] daily[address] [facility] Yes 1{tbl} Take 1 Un renate ne 0.35 mg 2-01 tablet by ity of tablet 00:00: mouth [place] [address] [facility] Yes 1{tbl} Take 1 Un renate ne 0.35 mg 2-01 tablet by ity of tablet 00:00: mouth [place] 00 daily. [facility] Yes 1{tbl} Take 1 Un renate ne 0.35 mg 2-01 tablet by ity of tablet 00:00: mouth [place] [address] [facility] 2016-10 Yes 1{tbl} Take 1 Un renate ne 0.35 mg 2-01 tablet by ity of tablet 00:00: mouth [place] 00 daily. [facility] 2016-10 Yes 1{tbl} Take 1 Un renate ne 0.35 mg 2-01 tablet by ity of tablet 00:00: mouth [place] 00 daily. [facility] 2016-10 Yes 1{tbl} Take 1 Un renate ne 0.35 mg 2-01 tablet by ity of tablet 00:00: mouth [place] 00 daily. [facility] 2016-10 Yes 1{tbl} Take 1 Un renate ne 0.35 mg 2-01 tablet by ity of tablet 00:00: mouth [place] 00 daily. [facility] 2016-10 Yes 1{tbl} Take 1 Un renate ne 0.35 mg 2-01 tablet by ity of tablet 00:00: mouth [place] 00 daily. [facility] 2016-10 Yes 1{tbl} Take 1 Un renate ne 0.35 mg 2-01 tablet by ity of tablet 00:00: mouth [place] 00 daily. [facility] 2016-10 Yes 1{tbl} Take 1 Un renate ne 0.35 mg 2-01 tablet by ity of tablet 00:00: mouth [place] 00 daily. [facility] 2016-10 Yes 1{tbl} Take 1 Un renate ne 0.35 mg 2-01 tablet by ity of tablet 00:00: mouth [place] 00 daily. [facility] 2016-10 Yes 1{tbl} Take 1 Un renate ne 0.35 mg 2-01 tablet by ity of tablet 00:00: mouth [place] 00 daily. [facility] 2016-10 Yes 1{tbl} Take 1 Un renate ne 0.35 mg 2-01 tablet by ity of tablet 00:00: mouth [place] 00 daily. [facility] 2016-10 Yes 1{tbl} Take 1 Un renate ne 0.35 mg 2-01 tablet by ity of tablet 00:00: mouth [place] 00 daily. [facility] 2016-10 Yes 1{tbl} Take 1 Un renate ne 0.35 mg 2-01 tablet by ity of tablet 00:00: mouth [place] 00 daily. [facility] 2016-10 Yes 1{tbl} Take 1 Un renate ne 0.35 mg 2-01 tablet by ity of tablet 00:00: mouth [place] 00 daily. [facility] 2016-10 Yes 1{tbl} Take 1 Un renate ne 0.35 mg 2-01 tablet by ity of tablet 00:00: mouth [place] 00 daily. [facility] 2016-10 Yes 1{tbl} Take 1 Un renate ne 0.35 mg 2-01 tablet by ity of tablet 00:00: mouth [place] 00 daily. [facility] 2016-10 Yes 1{tbl} Take 1 Un renate ne 0.35 mg 2-01 tablet by ity of tablet 00:00: mouth [place] 00 daily. [facility] 2016-10 Yes 1{tbl} Take 1 Un renate ne 0.35 mg 2-01 tablet by ity of tablet 00:00: mouth [place] 00 daily. [facility] 2016-10 Yes 1{tbl} Take 1 Un renate ne 0.35 mg 2-01 tablet by ity of tablet 00:00: mouth [place] 00 daily. [facility] 2016-10 Yes 1{tbl} Take 1 Un renate ne 0.35 mg 2-01 tablet by ity of tablet 00:00: mouth [place] 00 daily. [facility] 2016-10 Yes 1{tbl} Take 1 Un renate ne 0.35 mg 2-01 tablet by ity of tablet 00:00: mouth [place] 00 daily. [facility] 2016-10 Yes 1{tbl} Take 1 Un renate ne 0.35 mg 2-01 tablet by ity of tablet 00:00: mouth [place] 00 daily. [facility] 2016-10 Yes 1{tbl} Take 1 Un renate ne 0.35 mg 2-01 tablet by ity of tablet 00:00: mouth [place] 00 daily. [facility] 2016-10 Yes 1{tbl} Take 1 Un renate ne 0.35 mg 2-01 tablet by ity of tablet 00:00: mouth [place] 00 daily. [facility] 2016-10 Yes 1{tbl} Take 1 Un renate ne 0.35 mg 2-01 tablet by ity of tablet 00:00: mouth [place] 00 daily. [facility] 2016-10 Yes 1{tbl} Take 1 Un renate ne 0.35 mg 2-01 tablet by ity of tablet 00:00: mouth [place] 00 daily. [facility] 2016-10 Yes 1{tbl} Take 1 Un renate ne 0.35 mg 2-01 tablet by ity of tablet 00:00: mouth [place] 00 daily. [facility] 2016-10 Yes 1{tbl} Take 1 Un renate ne 0.35 mg 2-01 tablet by ity of tablet 00:00: mouth [place] 00 daily. [facility] 2016-10 Yes 1{tbl} Take 1 Un renate ne 0.35 mg 2-01 tablet by ity of tablet 00:00: mouth [place] 00 daily. [facility] 2016-10 Yes 1{tbl} Take 1 Un renate ne 0.35 mg 2-01 tablet by ity of tablet 00:00: mouth [place] 00 daily. [facility] 2016-10 Yes 1{tbl} Take 1 Un renate ne 0.35 mg 2-01 tablet by ity of tablet 00:00: mouth [place] 00 daily. [facility] 2016-10 Yes 1{tbl} Take 1 Un renate ne 0.35 mg 2-01 tablet by ity of tablet 00:00: mouth [place] 00 daily. [facility] 2016-10 Yes 1{tbl} Take 1 Un renate ne 0.35 mg 2-01 tablet by ity of tablet 00:00: mouth [place] 00 daily. [facility] 2016-10 Yes 1{tbl} Take 1 Un renate ne 0.35 mg 2-01 tablet by ity of tablet 00:00: mouth [place] 00 daily. [facility] 2016-10 Yes 1{tbl} Take 1 Un renate ne 0.35 mg 2-01 tablet by ity of tablet 00:00: mouth [place] 00 daily. [facility] 2016-10 Yes 1{tbl} Take 1 Un renate ne 0.35 mg 2-01 tablet by ity of tablet 00:00: mouth [place] 00 daily. [facility] 2016-10 Yes 1{tbl} Take 1 Un renate ne 0.35 mg 2-01 tablet by ity of tablet 00:00: mouth [place] 00 daily. [facility] 2016-10 Yes 1{tbl} Take 1 Un renate ne 0.35 mg 2-01 tablet by ity of tablet 00:00: mouth [place] 00 daily. [facility] 2016-10 Yes 1{tbl} Take 1 Un renate ne 0.35 mg 2-01 tablet by ity of tablet 00:00: mouth [place] 00 daily. [facility] 2016-10 Yes 1{tbl} Take 1 Un renate ne 0.35 mg 2-01 tablet by ity of tablet 00:00: mouth [place] 00 daily. [facility] 2016-10 Yes 1{tbl} Take 1 Un renate ne 0.35 mg 2-01 tablet by ity of tablet 00:00: mouth [place] 00 daily. [facility] 2016-10 Yes 1{tbl} Take 1 Un renate ne 0.35 mg 2-01 tablet by ity of tablet 00:00: mouth [place] 00 daily. [facility] 2016-10 Yes 1{tbl} Take 1 Un renate ne 0.35 mg 2-01 tablet by ity of tablet 00:00: mouth [place] 00 daily. [facility] 2016-10 Yes 1{tbl} Take 1 Un renate ne 0.35 mg 2-01 tablet by ity of tablet 00:00: mouth [place] 00 daily. [facility] 2016-10 Yes 1{tbl} Take 1 Un renate ne 0.35 mg 2-01 tablet by ity of tablet 00:00: mouth [place] 00 daily. [facility] 2016-10 Yes 1{tbl} Take 1 Un renate ne 0.35 mg 2-01 tablet by ity of tablet 00:00: mouth [place] 00 daily. [facility] 2016-10 Yes 1{tbl} Take 1 Un renate ne 0.35 mg 2-01 tablet by ity of tablet 00:00: mouth [place] 00 daily. [facility] 2016-10 Yes 1{tbl} Take 1 Un renate ne 0.35 mg 2-01 tablet by ity of tablet 00:00: mouth [place] 00 daily. [facility] 2016-10 Yes 1{tbl} Take 1 Un renate ne 0.35 mg 2-01 tablet by ity of tablet 00:00: mouth [place] 00 daily. [facility] 2016-10 Yes 1{tbl} Take 1 Un renate ne 0.35 mg 2-01 tablet by ity of tablet 00:00: mouth [place] 00 daily. [facility] 2016-10- No 1{tbl} Take 1 U nivers ne 0.35 mg 2-01 -28 tablet by ity of tablet 00:00: 00:00 mouth [place] 00 :00 daily. [facility] 2016-10- No 1{tbl} Take 1 U nivers ne 0.35 mg 2-01 - tablet by ity of tablet 00:00: 00:00 mouth [place] 00 :00 daily. [facility] 2016-10- No 1{tbl} Take 1 U nivers ne 0.35 mg 2-01 - tablet by ity of tablet 00:00: 00:00 mouth [place] 00 :00 daily. [facility] 2016-10- No 1{tbl} Take 1 U nivers ne 0.35 mg 2-01 - tablet by ity of tablet 00:00: 00:00 mouth [place] 00 :00 daily. [facility] 2016-10- No 1{tbl} Take 1 U nivers ne 0.35 mg 2-01 -28 tablet by ity of tablet 00:00: 00:00 mouth [place] 00 :00 daily. [facility] 2016-10- No 1{tbl} Take 1 U nivers ne 0.35 mg 2-01 -28 tablet by ity of tablet 00:00: 00:00 mouth [place] 00 :00 daily. [facility] cyclobenzap 2016-10 Yes 5mg Take 1 Univ ers rine 5 mg 1-05 tablet by ity o f tablet 00:00: mouth 3 [place] 00 (three) Medical times Branch daily. pentazocine 2016-10 Yes 1{tbl} Take 1 Un renate -naloxone 1-05 tablet by ity o f 50-0.5 mg 00:00: mouth [place] tablet 00 every 6 Medical (six) Branch hours as needed for Pain. cyclobenzap 2016-10 Yes 5mg Take 1 Univ ers rine 5 mg 1-05 tablet by ity o f tablet 00:00: mouth 3 [place] 00 (three) Medical times Branch daily. pentazocine 2016-10 Yes 1{tbl} Take 1 Un renate -naloxone 1-05 tablet by ity o f 50-0.5 mg 00:00: mouth [place] tablet 00 every 6 Medical (six) Branch hours as needed for Pain. cyclobenzap 2016-10 Yes 5mg Take 1 Univ ers rine 5 mg 1-05 tablet by ity o f tablet 00:00: mouth 3 [place] 00 (three) Medical times Branch daily. pentazocine 2016-10 Yes 1{tbl} Take 1 Un renate -naloxone 1-05 tablet by ity o f 50-0.5 mg 00:00: mouth [place] tablet 00 every 6 Medical (six) Branch hours as needed for Pain. cyclobenzap 2016-10 Yes 5mg Take 1 [facility]ine 5 mg 1-05 tablet by ity o f tablet 00:00: mouth 3 [place] 00 (three) Medical times Branch daily. pentazocine 2016-10 Yes 1{tbl} Take 1 Un renate -naloxone 1-05 tablet by ity o f 50-0.5 mg 00:00: mouth [place] tablet 00 every 6 Medical (six) Branch hours as needed for Pain. cyclobenzap 2016-10 Yes 5mg Take 1 Univ ers rine 5 mg 1-05 tablet by ity o f tablet 00:00: mouth 3 [place] 00 (three) Medical times Branch daily. pentazocine 2016-10 Yes 1{tbl} Take 1 Un renate -naloxone 1-05 tablet by ity o f 50-0.5 mg 00:00: mouth [place] tablet 00 every 6 Medical (six) Branch hours as needed for Pain. cyclobenzap 2016- Yes 5mg Take 1 Univ [facility] rine 5 mg 1-05 tablet by ity o f tablet 00:00: mouth 3 [place] 00 (three) Medical times Branch daily. pentazocine 2016-10 Yes 1{tbl} Take 1 Un renate -naloxone 1-05 tablet by ity o f 50-0.5 mg 00:00: mouth [place] tablet 00 every 6 Medical (six) Branch hours as needed for Pain. cyclobenzap 2016- Yes 5mg Take 1 [facility]ine 5 mg 1-05 tablet by ity o f tablet 00:00: mouth 3 [place] 00 (three) Medical times Branch daily. pentazocine 2016-10 Yes 1{tbl} Take 1 Un renate -naloxone 1-05 tablet by ity o f 50-0.5 mg 00:00: mouth [place] tablet 00 every 6 Medical (six) Branch hours as needed for Pain. cyclobenzap 2016-10 Yes 5mg Take 1 [facility]ine 5 mg 1-05 tablet by ity o f tablet 00:00: mouth 3 [place] 00 (three) Medical times Branch daily. pentazocine 2016- Yes 1{tbl} Take 1 Un renate -naloxone 1-05 tablet by ity o f 50-0.5 mg 00:00: mouth [place] tablet 00 every 6 Medical (six) Branch hours as needed for Pain. cyclobenzap 2016-10 Yes 5mg Take 1 [facility]ine 5 mg 1-05 tablet by ity o f tablet 00:00: mouth 3 [place] 00 (three) Medical times Branch daily. pentazocine 2016-10 Yes 1{tbl} Take 1 Un renate -naloxone 1-05 tablet by ity o f 50-0.5 mg 00:00: mouth [place] tablet 00 every 6 Medical (six) Branch hours as needed for Pain. cyclobenzap 2016-10 Yes 5mg Take 1 Univ [facility]ine 5 mg 1-05 tablet by ity o f tablet 00:00: mouth 3 [place] 00 (three) Medical times Branch daily. pentazocine 2016- Yes 1{tbl} Take 1 Un renate -naloxone 1-05 tablet by ity o f 50-0.5 mg 00:00: mouth [place] tablet 00 every 6 Medical (six) Branch hours as needed for Pain. cyclobenzap 2016- Yes 5mg Take 1 [facility]ine 5 mg 1-05 tablet by ity o f tablet 00:00: mouth 3 [place] 00 (three) Medical times Branch daily. pentazocine 2016- Yes 1{tbl} Take 1 Un renate -naloxone 1-05 tablet by ity o f 50-0.5 mg 00:00: mouth [place] tablet 00 every 6 Medical (six) Branch hours as needed for Pain. cyclobenzap 2016-10 Yes 5mg Take 1 [facility]ine 5 mg 1-05 tablet by ity o f tablet 00:00: mouth 3 [place] 00 (three) Medical times Branch daily. pentazocine 2016-10 Yes 1{tbl} Take 1 Un renate -naloxone 1-05 tablet by ity o f 50-0.5 mg 00:00: mouth [place] tablet 00 every 6 Medical (six) Branch hours as needed for Pain. cyclobenzap 2016-10 Yes 5mg Take 1 [facility]ine 5 mg 1-05 tablet by ity o f tablet 00:00: mouth 3 [place] 00 (three) Medical times Branch daily. pentazocine 2016-10 Yes 1{tbl} Take 1 Un renate -naloxone 1-05 tablet by ity o f 50-0.5 mg 00:00: mouth [place] tablet 00 every 6 Medical (six) Branch hours as needed for Pain. cyclobenzap 2016-10 Yes 5mg Take 1 [facility]ine 5 mg 1-05 tablet by ity o f tablet 00:00: mouth 3 [place] 00 (three) Medical times Branch daily. pentazocine 2016-10 Yes 1{tbl} Take 1 Un renate -naloxone 1-05 tablet by ity o f 50-0.5 mg 00:00: mouth [place] tablet 00 every 6 Medical (six) Branch hours as needed for Pain. cyclobenzap 2016-10 Yes 5mg Take 1 [facility]ine 5 mg 1-05 tablet by ity o f tablet 00:00: mouth 3 [place] 00 (three) Medical times Branch daily. pentazocine 2016-10 Yes 1{tbl} Take 1 Un renate -naloxone 1-05 tablet by ity o f 50-0.5 mg 00:00: mouth [place] tablet 00 every 6 Medical (six) Branch hours as needed for Pain. cyclobenzap 2016-10 Yes 5mg Take 1 [facility]ine 5 mg 1-05 tablet by ity o f tablet 00:00: mouth 3 [place] 00 (three) Medical times Branch daily. pentazocine 2016-10 Yes 1{tbl} Take 1 Un renate -naloxone 1-05 tablet by ity o f 50-0.5 mg 00:00: mouth [place] tablet 00 every 6 Medical (six) Branch hours as needed for Pain. cyclobenzap 2016-10 Yes 5mg Take 1 [facility] 5 mg 1-05 tablet by ity o f tablet 00:00: mouth 3 [place] 00 (three) Medical times Branch daily. pentazocine 2016-10 Yes 1{tbl} Take 1 Un renate -naloxone 1-05 tablet by ity o f 50-0.5 mg 00:00: mouth [place] tablet 00 every 6 Medical (six) Branch hours as needed for Pain. cyclobenzap 2016-10 Yes 5mg Take 1 [facility] rine 5 mg 1-05 tablet by it[facility] o f tablet 00:00: mouth 3 [place] 00 (three) Medical times Branch daily. pentazocine 2016-10 Yes 1{tbl} Take 1 [facility] -naloxone 1-05 tablet by ity o f 50-0.5 mg 00:00: mouth [place] tablet 00 every 6 Medical (six) Branch hours as needed for Pain. cyclobenzap 2016-10 Yes 5mg Take 1 [facility] 5 mg 1-05 tablet by ity o f tablet 00:00: mouth 3 [place] 00 (three) Medical times Branch daily. pentazocine 2016-10 Yes 1{tbl} Take 1 [facility] -naloxone 1-05 tablet by ity o f 50-0.5 mg 00:00: mouth [place] tablet 00 every 6 Medical (six) Branch hours as needed for Pain. cyclobenzap 2016-10 Yes 5mg Take 1 [facility] 5 mg 1-05 tablet by ity o f tablet 00:00: mouth 3 [place] 00 (three) Medical times Branch daily. pentazocine 2016-10 Yes 1{tbl} Take 1 [facility] -naloxone 1-05 tablet by ity o f 50-0.5 mg 00:00: mouth [place] tablet 00 every 6 Medical (six) Branch hours as needed for Pain. cyclobenzap 2016-10 Yes 5mg Take 1 [facility] 5 mg 1-05 tablet by ity o f tablet 00:00: mouth 3 [place] 00 (three) Medical times Branch daily. pentazocine 2016-10 Yes 1{tbl} Take 1 [facility] -naloxone 1-05 tablet by ity o f 50-0.5 mg 00:00: mouth [place] tablet 00 every 6 Medical (six) Branch hours as needed for Pain. pentazocine 2016-10 Yes 1{tbl} Take 1 [facility] -naloxone 1-05 tablet by ity o f 50-0.5 mg 00:00: mouth [place] tablet 00 every 6 Medical (six) Branch hours as needed for Pain. pentazocine 2016-10 Yes 1{tbl} Take 1 [facility] -naloxone 1-05 tablet by ity o f 50-0.5 mg 00:00: mouth [place] tablet 00 every 6 Medical (six) Branch hours as needed for Pain. cyclobenzap 2016-10 Yes 5mg Take 1 [facility] 5 mg 1-05 tablet by ity o f tablet 00:00: mouth 3 [place] 00 (three) Medical times Branch daily. pentazocine 2016-10 Yes 1{tbl} Take 1 [facility] -naloxone 1-05 tablet by ity o f 50-0.5 mg 00:00: mouth [place] tablet 00 every 6 Medical (six) Branch hours as needed for Pain. pentazocine 2016-10 Yes 1{tbl} Take 1 [facility] -naloxone 1-05 tablet by ity o f 50-0.5 mg 00:00: mouth [place] tablet 00 every 6 Medical (six) Branch hours as needed for Pain. pentazocine 2016-10 Yes 1{tbl} Take 1 [facility] -naloxone 1-05 tablet by ity o f 50-0.5 mg 00:00: mouth [place] tablet 00 every 6 Medical (six) Branch hours as needed for Pain. pentazocine 2016-10 Yes 1{tbl} Take 1 [facility] -naloxone 1-05 tablet by ity o f 50-0.5 mg 00:00: mouth [place] tablet 00 every 6 Medical (six) Branch hours as needed for Pain. pentazocine 2016-10 Yes 1{tbl} Take 1 [facility] -naloxone 1-05 tablet by ity o f 50-0.5 mg 00:00: mouth [place] tablet 00 every 6 Medical (six) Branch hours as needed for Pain. pentazocine 2016-10 Yes 1{tbl} Take 1 [facility] -naloxone 1-05 tablet by ity o f 50-0.5 mg 00:00: mouth [place] tablet 00 every 6 Medical (six) Branch hours as needed for Pain. pentazocine 2016-10 Yes 1{tbl} Take 1 [facility] -naloxone 1-05 tablet by ity o f 50-0.5 mg 00:00: mouth [place] tablet 00 every 6 Medical (six) Branch hours as needed for Pain. pentazocine 2016-10 Yes 1{tbl} Take 1 [facility] -naloxone 1-05 tablet by ity o f 50-0.5 mg 00:00: mouth [place] tablet 00 every 6 Medical (six) Branch hours as needed for Pain. pentazocine 2016-10 Yes 1{tbl} Take 1 [facility] -naloxone 1-05 tablet by ity o f 50-0.5 mg 00:00: mouth [place] tablet 00 every 6 Medical (six) Branch hours as needed for Pain. pentazocine 2016-10 Yes 1{tbl} Take 1 [facility] -naloxone 1-05 tablet by ity o f 50-0.5 mg 00:00: mouth [place] tablet 00 every 6 Medical (six) Branch hours as needed for Pain. pentazocine 2016-10 Yes 1{tbl} Take 1 [facility] -naloxone 1-05 tablet by ity o f 50-0.5 mg 00:00: mouth [place] tablet 00 every 6 Medical (six) Branch hours as needed for Pain. pentazocine 2016-10 Yes 1{tbl} Take 1 [facility] -naloxone 1-05 tablet by ity o f 50-0.5 mg 00:00: mouth [place] tablet 00 every 6 Medical (six) Branch hours as needed for Pain. pentazocine 2016-10 Yes 1{tbl} Take 1 [facility] -naloxone 1-05 tablet by ity o f 50-0.5 mg 00:00: mouth [place] tablet 00 every 6 Medical (six) Branch hours as needed for Pain. pentazocine 2016-10 Yes 1{tbl} Take 1 [facility] -naloxone 1-05 tablet by ity o f 50-0.5 mg 00:00: mouth [place] tablet 00 every 6 Medical (six) Branch hours as needed for Pain. pentazocine 2016-10 Yes 1{tbl} Take 1 [facility] -naloxone 1-05 tablet by ity o f 50-0.5 mg 00:00: mouth [place] tablet 00 every 6 Medical (six) Branch hours as needed for Pain. pentazocine 2016-10 Yes 1{tbl} Take 1 [facility] -naloxone 1-05 tablet by ity o f 50-0.5 mg 00:00: mouth [place] tablet 00 every 6 Medical (six) Branch hours as needed for Pain. pentazocine 2016-10 Yes 1{tbl} Take 1 [facility] -naloxone 1-05 tablet by ity o f 50-0.5 mg 00:00: mouth [place] tablet 00 every 6 Medical (six) Branch hours as needed for Pain. pentazocine 2016-10 Yes 1{tbl} Take 1 [facility] -naloxone 1-05 tablet by ity o f 50-0.5 mg 00:00: mouth [place] tablet 00 every 6 Medical (six) Branch hours as needed for Pain. pentazocine 2016-10 Yes 1{tbl} Take 1 [facility] -naloxone 1-05 tablet by ity o f 50-0.5 mg 00:00: mouth [place] tablet 00 every 6 Medical (six) Branch hours as needed for Pain. pentazocine 2016-10 Yes 1{tbl} Take 1 [facility] -naloxone 1-05 tablet by ity o f 50-0.5 mg 00:00: mouth [place] tablet 00 every 6 Medical (six) Branch hours as needed for Pain. pentazocine 2016-10 Yes 1{tbl} Take 1 [facility] -naloxone 1-05 tablet by ity o f 50-0.5 mg 00:00: mouth [place] tablet 00 every 6 Medical (six) Branch hours as needed for Pain. pentazocine 2016-10 Yes 1{tbl} Take 1 [facility] -naloxone 1-05 tablet by ity o f 50-0.5 mg 00:00: mouth [place] tablet 00 every 6 Medical (six) Branch hours as needed for Pain. pentazocine 2016-10 Yes 1{tbl} Take 1 [facility] -naloxone 1-05 tablet by ity o f 50-0.5 mg 00:00: mouth [place] tablet 00 every 6 Medical (six) Branch hours as needed for Pain. pentazocine 2016-10 Yes 1{tbl} Take 1 [facility] -naloxone 1-05 tablet by ity o f 50-0.5 mg 00:00: mouth [place] tablet 00 every 6 Medical (six) Branch hours as needed for Pain. pentazocine 2016-10 Yes 1{tbl} Take 1 [facility] -naloxone 1-05 tablet by ity o f 50-0.5 mg 00:00: mouth [place] tablet 00 every 6 Medical (six) Branch hours as needed for Pain. pentazocine 2016-10 Yes 1{tbl} Take 1 [facility] -naloxone 1-05 tablet by ity o f 50-0.5 mg 00:00: mouth [place] tablet 00 every 6 Medical (six) Branch hours as needed for Pain. pentazocine 2016-10 Yes 1{tbl} Take 1 [facility] -naloxone 1-05 tablet by ity o f 50-0.5 mg 00:00: mouth [place] tablet 00 every 6 Medical (six) Branch hours as needed for Pain. cyclobenzap 2016-10 Yes 5mg Take 1 [facility] 5 mg 1-05 tablet by ity o f tablet 00:00: mouth 3 [place] 00 (three) Medical times Branch daily. pentazocine 2016-10 Yes 1{tbl} Take 1 [facility] -naloxone 1-05 tablet by ity o f 50-0.5 mg 00:00: mouth [place] tablet 00 every 6 Medical (six) Branch hours as needed for Pain. pentazocine 2016-10 Yes 1{tbl} Take 1 [facility] -naloxone 1-05 tablet by ity o f 50-0.5 mg 00:00: mouth [place] tablet 00 every 6 Medical (six) Branch hours as needed for Pain. pentazocine 2016-10 Yes 1{tbl} Take 1 [facility] -naloxone 1-05 tablet by ity o f 50-0.5 mg 00:00: mouth [place] tablet 00 every 6 Medical (six) Branch hours as needed for Pain. pentazocine 2016-10 Yes 1{tbl} Take 1 [facility] -naloxone 1-05 tablet by ity o f 50-0.5 mg 00:00: mouth [place] tablet 00 every 6 Medical (six) Branch hours as needed for Pain. pentazocine 2016-10 Yes 1{tbl} Take 1 [facility] -naloxone 1-05 tablet by ity o f 50-0.5 mg 00:00: mouth [place] tablet 00 every 6 Medical (six) Branch hours as needed for Pain. pentazocine 2016-10 Yes 1{tbl} Take 1 [facility] -naloxone 1-05 tablet by ity o f 50-0.5 mg 00:00: mouth [place] tablet 00 every 6 Medical (six) Branch hours as needed for Pain. cyclobenzap 2016-10 Yes 5mg Take 1 [facility] 5 mg 1-05 tablet by ity o f tablet 00:00: mouth 3 [place] 00 (three) Medical times Branch daily. pentazocine 2016-10 Yes 1{tbl} Take 1 [facility] -naloxone 1-05 tablet by ity o f 50-0.5 mg 00:00: mouth [place] tablet 00 every 6 Medical (six) Branch hours as needed for Pain. pentazocine 2016-10- No 1{tbl} Take 1 [facility] n[facility] -naloxone 1-05 03-28 tablet by ity of 50-0.5 mg 00:00: 00:00 mouth [place] tablet 00 :00 every 6 Medical (six) Branch hours as needed for Pain. pentazocine 2016-10- No 1{tbl} Take 1 [facility] n[facility] -naloxone 1-05 03-28 tablet by ity of 50-0.5 mg 00:00: 00:00 mouth [place] tablet 00 :00 every 6 Medical (six) Branch hours as needed for Pain. pentazocine 2016-10- No 1{tbl} Take 1 [facility] -naloxone 1-05 03-28 tablet by ity of 50-0.5 mg 00:00: 00:00 mouth [place] tablet 00 :00 every 6 Medical (six) Branch hours as needed for Pain. pentazocine 2016-10- No 1{tbl} Take 1 [facility] n[facility] -naloxone 1-05 03-28 tablet by ity of 50-0.5 mg 00:00: 00:00 mouth [place] tablet 00 :00 every 6 Medical (six) Branch hours as needed for Pain. pentazocine 2016-10- No 1{tbl} Take 1 [facility] n[facility] -naloxone 1-05 03-28 tablet by ity of 50-0.5 mg 00:00: 00:00 mouth [place] tablet 00 :00 every 6 Medical (six) Branch hours as needed for Pain. pentazocine 2016-10- No 1{tbl} Take 1 [facility] -naloxone 1-05 03-28 tablet by ity of 50-0.5 mg 00:00: 00:00 mouth [place] tablet 00 :00 every 6 Medical (six) Branch hours as needed for Pain. cyclobenzap 2016-10- No 5mg Take 1 [facility] 5 mg 1- 02-28 tablet by ity of tablet 00:00: 00:00 mouth 3 [place] 00 :00 (three) Medical times Branch daily. cyclobenzap 2016-10- No 5mg Take 1 [facility] 5 mg 1-05 02-28 tablet by ity of tablet 00:00: 00:00 mouth 3 [place] 00 :00 (three) Medical times Branch daily. cyclobenzap Yes TAKE 1 [facility] 10 mg 8-28 TABLET BY ity of tablet 00:00: MOUTH [place] 00 EVERY 8 Medical HOURS Branch NEEDED FOR MUSCLE SPASMS. cyclobenzap Yes TAKE 1 [facility] 10 mg 8-28 TABLET BY ity of tablet 00:00: MOUTH [place] 00 EVERY 8 Medical HOURS Branch NEEDED FOR MUSCLE SPASMS. cyclobenzap Yes TAKE 1 [facility] 10 mg 8-28 TABLET BY ity of tablet 00:00: MOUTH [place] 00 EVERY 8 Medical HOURS Branch NEEDED FOR MUSCLE SPASMS. cyclobenzap Yes TAKE 1 [facility] 10 mg 8-28 TABLET BY ity of tablet 00:00: MOUTH [place] 00 EVERY 8 Medical HOURS Branch NEEDED FOR MUSCLE SPASMS. cyclobenzap Yes TAKE 1 [facility] 10 mg 8-28 TABLET BY ity of tablet 00:00: MOUTH [place] 00 EVERY 8 Medical HOURS Branch NEEDED FOR MUSCLE SPASMS. cyclobenzap Yes TAKE 1 [facility] 10 mg 8-28 TABLET BY ity of tablet 00:00: MOUTH [place] 00 EVERY 8 Medical HOURS Branch NEEDED FOR MUSCLE SPASMS. cyclobenzap Yes TAKE 1 [facility] 10 mg 8-28 TABLET BY ity of tablet 00:00: MOUTH [place] 00 EVERY 8 Medical HOURS Branch NEEDED FOR MUSCLE SPASMS. cyclobenzap Yes TAKE 1 [facility] 10 mg 8-28 TABLET BY ity of tablet 00:00: MOUTH [place] 00 EVERY 8 Medical HOURS Branch NEEDED FOR MUSCLE SPASMS. cyclobenzap Yes TAKE 1 [facility] 10 mg 8-28 TABLET BY ity of tablet 00:00: MOUTH [place] 00 EVERY 8 Medical HOURS Branch NEEDED FOR MUSCLE SPASMS. cyclobenzap Yes TAKE 1 [facility] 10 mg 8-28 TABLET BY ity of tablet 00:00: MOUTH [place] 00 EVERY 8 Medical HOURS Branch NEEDED FOR MUSCLE SPASMS. cyclobenzap Yes TAKE 1 [facility] 10 mg 8-28 TABLET BY ity of tablet 00:00: MOUTH [place] 00 EVERY 8 Medical HOURS Branch NEEDED FOR MUSCLE SPASMS. cyclobenzap Yes TAKE 1 [facility] 10 mg 8-28 TABLET BY ity of tablet 00:00: MOUTH [place] 00 EVERY 8 Medical HOURS Branch NEEDED FOR MUSCLE SPASMS. cyclobenzap Yes TAKE 1 [facility] 10 mg 8-28 TABLET BY ity of tablet 00:00: MOUTH [place] 00 EVERY 8 Medical HOURS Branch NEEDED FOR MUSCLE SPASMS. cyclobenzap Yes TAKE 1 [facility] 10 mg 8-28 TABLET BY ity of tablet 00:00: MOUTH [place] 00 EVERY 8 Medical HOURS Branch NEEDED FOR MUSCLE SPASMS. cyclobenzap Yes TAKE 1 [facility] 10 mg 8-28 TABLET BY ity of tablet 00:00: MOUTH [place] 00 EVERY 8 Medical HOURS Branch NEEDED FOR MUSCLE SPASMS. cyclobenzap Yes TAKE 1 [facility] 10 mg 8-28 TABLET BY [facility]y of tablet 00:00: MOUTH [place] 00 EVERY 8 Medical HOURS Branch NEEDED FOR MUSCLE SPASMS. cyclobenzap Yes TAKE 1 [facility] 10 mg 8-28 TABLET BY [facility] of tablet 00:00: MOUTH [place] 00 EVERY 8 Medical HOURS Branch NEEDED FOR MUSCLE SPASMS. cyclobenzap Yes TAKE 1 [facility] 10 mg 8-28 TABLET BY ity of tablet 00:00: MOUTH [place] 00 EVERY 8 Medical HOURS Branch NEEDED FOR MUSCLE SPASMS. cyclobenzap Yes TAKE 1 [facility] 10 mg 8-28 TABLET BY [facility]y of tablet 00:00: MOUTH [place] 00 EVERY 8 Medical HOURS Branch NEEDED FOR MUSCLE SPASMS. cyclobenzap Yes TAKE 1 [facility] 10 mg 8-28 TABLET BY [facility]y of tablet 00:00: MOUTH [place] 00 EVERY 8 Medical HOURS Branch NEEDED FOR MUSCLE SPASMS. cyclobenzap Yes TAKE 1 [facility] 10 mg 8-28 TABLET BY [facility]y of tablet 00:00: MOUTH [place] 00 EVERY 8 Medical HOURS Branch NEEDED FOR MUSCLE SPASMS. cyclobenzap Yes TAKE 1 [facility] 10 mg 8-28 TABLET BY [facility] of tablet 00:00: MOUTH [place] 00 EVERY 8 Medical HOURS Branch NEEDED FOR MUSCLE SPASMS. cyclobenzap Yes TAKE 1 [facility] 10 mg 8-28 TABLET BY ity of tablet 00:00: MOUTH [place] 00 EVERY 8 Medical HOURS Branch NEEDED FOR MUSCLE SPASMS. cyclobenzap Yes TAKE 1 [facility] 10 mg 8-28 TABLET BY ity of tablet 00:00: MOUTH [place] 00 EVERY 8 Medical HOURS Branch NEEDED FOR MUSCLE SPASMS. cyclobenzap 2022- No TAKE 1 [facility] 10 mg 8-28 02-28 TABLET BY [facility]y of tablet 00:00: 00:00 MOUTH [place] 00 :00 EVERY 8 Medical HOURS Branch NEEDED FOR MUSCLE SPASMS. cyclobenzap 2022- No TAKE 1 [facility] 10 mg 8-28 02-28 TABLET BY ity of tablet 00:00: 00:00 MOUTH [place] 00 :00 EVERY 8 Medical HOURS Branch NEEDED FOR MUSCLE SPASMS. phenylephri 2017-0 Yes 5mL Take 5 mL [facility] ne-prometha 6-15 by mouth 4 [facility] y of zine-codein 00:00: (four[place] [facility] times [facility] (PROMETHAZI daily as Bran ch NE needed for VC-CODEINE) Cough. 6.25-5-10 mg/5 mL syrup phenylephri 2017-0 Yes 5mL Take 5 mL [facility] ne-prometha 6-15 by mouth 4 it y of zine-codein 00:00: (four) [place] [facility] times [facility] (PROMETHAZI daily as Bran ch NE needed for VC-CODEINE) Cough. 6.25-5-10 mg/5 mL syrup phenylephri 2017-0 Yes 5mL Take 5 mL [facility] ne-prometha 6-15 by mouth 4 it y of zine-codein 00:00: (four) [place] [facility] times [facility] (PROMETHAZI daily as Bran ch NE needed for VC-CODEINE) Cough. 6.25-5-10 mg/5 mL syrup phenylephri 2017-0 Yes 5mL Take 5 mL [facility] ne-prometha 6-15 by mouth 4 it y of zine-codein 00:00: (four) [place] [facility] times [facility] (PROMETHAZI daily as Bran ch NE needed for VC-CODEINE) Cough. 6.25-5-10 mg/5 mL syrup phenylephri 2017-0 Yes 5mL Take 5 mL [facility] ne-prometha 6-15 by mouth 4 it y of zine-codein 00:00: (four) [place] [facility] [place] [facility] (PROMETHAZI daily as Bran ch NE needed for VC-CODEINE) Cough. 6.25-5-10 mg/5 mL syrup phenylephri 2017-0 Yes 5mL Take 5 mL [facility] ne-prometha 6-15 by mouth 4 it y of zine-codein 00:00: (four) [place] [facility] times [facility] (PROMETHAZI daily as Bran ch NE needed for VC-CODEINE) Cough. 6.25-5-10 mg/5 mL syrup phenylephri 2017-0 Yes 5mL Take 5 mL [facility] ne-prometha 6-15 by mouth 4 it y of zine-codein 00:00: (four) [place] [facility] times [facility] (PROMETHAZI daily as Bran ch NE needed for VC-CODEINE) Cough. 6.25-5-10 mg/5 mL syrup phenylephri 2017-0 Yes 5mL Take 5 mL [facility] ne-prometha 6-15 by mouth 4 it y of zine-codein 00:00: (four) [place] [facility] times [facility] (PROMETHAZI daily as Bran ch NE needed for VC-CODEINE) Cough. 6.25-5-10 mg/5 mL syrup phenylephri 2017-0 Yes 5mL Take 5 mL [facility] ne-prometha 6-15 by mouth 4 it y of zine-codein 00:00: (four) [place] [facility] times [facility] (PROMETHAZI daily as Bran ch NE needed for VC-CODEINE) Cough. 6.25-5-10 mg/5 mL syrup phenylephri 2017-0 Yes 5mL Take 5 mL [facility] ne-prometha 6-15 by mouth 4 it y of zine-codein 00:00: (four) [place] [facility] times [facility] (PROMETHAZI daily as Bran ch NE needed for VC-CODEINE) Cough. 6.25-5-10 mg/5 mL syrup phenylephri 2017-0 Yes 5mL Take 5 mL [facility] ne-prometha 6-15 by mouth 4 it y of zine-codein 00:00: (four) [place] [facility] times [facility] (PROMETHAZI daily as Bran ch NE needed for VC-CODEINE) Cough. 6.25-5-10 mg/5 mL syrup phenylephri 2017-0 Yes 5mL Take 5 mL [facility] ne-prometha 6-15 by mouth 4 it y of zine-codein 00:00: (four) [place] [facility] times [facility] (PROMETHAZI daily as Bran ch NE needed for VC-CODEINE) Cough. 6.25-5-10 mg/5 mL syrup phenylephri 2017-0 Yes 5mL Take 5 mL [facility] ne-prometha 6-15 by mouth 4 it y of zine-codein 00:00: (four) [place] [facility] times [facility] (PROMETHAZI daily as Bran ch NE needed for VC-CODEINE) Cough. 6.25-5-10 mg/5 mL syrup phenylephri 2017-0 Yes 5mL Take 5 mL [facility] ne-prometha 6-15 by mouth 4 it y of zine-codein 00:00: (four) [place] [facility] times [facility] (PROMETHAZI daily as Bran ch NE needed for VC-CODEINE) Cough. 6.25-5-10 mg/5 mL syrup phenylephri 2017-0 Yes 5mL Take 5 mL [facility] ne-prometha 6-15 by mouth 4 it y of zine-codein 00:00: (four) [place] [facility] times [facility] (PROMETHAZI daily as Bran ch NE needed for VC-CODEINE) Cough. 6.25-5-10 mg/5 mL syrup phenylephri 2017-0 Yes 5mL Take 5 mL [facility] ne-prometha 6-15 by mouth 4 it y of zine-codein 00:00: (four) [place] [facility] times [facility] (PROMETHAZI daily as Bran ch NE needed for VC-CODEINE) Cough. 6.25-5-10 mg/5 mL syrup phenylephri 2017-0 Yes 5mL Take 5 mL [facility] ne-prometha 6-15 by mouth 4 it y of zine-codein 00:00: (four) [place] [facility] times [facility] (PROMETHAZI daily as Bran ch NE needed for VC-CODEINE) Cough. 6.25-5-10 mg/5 mL syrup phenylephri 2017-0 Yes 5mL Take 5 mL [facility] ne-prometha 6-15 by mouth 4 it y of zine-codein 00:00: (four) [place] [facility] times [facility] (PROMETHAZI daily as Bran ch NE needed for VC-CODEINE) Cough. 6.25-5-10 mg/5 mL syrup phenylephri 2017-0 Yes 5mL Take 5 mL [facility] ne-prometha 6-15 by mouth 4 it y of zine-codein 00:00: (four) [place] [facility] times [facility] (PROMETHAZI daily as Bran ch NE needed for VC-CODEINE) Cough. 6.25-5-10 mg/5 mL syrup phenylephri 2017-0 Yes 5mL Take 5 mL [facility] ne-prometha 6-15 by mouth 4 it y of zine-codein 00:00: (four) [place] times [facility] (PROMETHAZI daily as Bran ch NE needed for VC-CODEINE) Cough. 6.25-5-10 mg/5 mL syrup phenylephri 2017-0 Yes 5mL Take 5 mL [facility] ne-prometha 6-15 by mouth 4 [facility] y of zine-codein 00:00: (four) [place] times [facility] (PROMETHAZI daily as Bran ch NE needed for VC-CODEINE) Cough. 6.25-5-10 mg/5 mL syrup phenylephri 2017-0 Yes 5mL Take 5 mL [facility] ne-prometha 6-15 by mouth 4 it y of zine-codein 00:00: (four) [place] times [facility] (PROMETHAZI daily as Bran ch NE needed for VC-CODEINE) Cough. 6.25-5-10 mg/5 mL syrup phenylephri 2017-0 Yes 5mL Take 5 mL [facility] ne-prometha 6-15 by mouth 4 it y of zine-codein 00:00: (four) [place] [facility] (PROMETHAZI daily as Bran ch NE needed for VC-CODEINE) Cough. 6.25-5-10 mg/5 mL syrup phenylephri 2017-0 Yes 5mL Take 5 mL [facility] ne-prometha 6-15 by mouth 4 [facility] y of zine-codein 00:00: (four) [place] [facility] (PROMETHAZI daily as Bran ch NE needed for VC-CODEINE) Cough. 6.25-5-10 mg/5 mL syrup phenylephri 2017-0 2022- No 5mL Take 5 mL [facility] ne-prometha 6-15 11-29 by mouth 4 i ty of zine-codein 00:00: 00:00 (four) [place] 00 :00 times Medical (PROMETHAZI daily as Bran ch NE needed for VC-CODEINE) Cough. 6.25-5-10 mg/5 mL syrup phenylephri 2017-0 2022- No 5mL Take 5 mL [facility] ne-prometha 6-15 11-29 by mouth 4 i ty of zine-codein 00:00: 00:00 (four) [place] [facility] 00 :00 times Medical (PROMETHAZI daily as Bran ch NE needed for VC-CODEINE) Cough. 6.25-5-10 mg/5 mL syrup benzonatate 2015-0 Yes 100mg Take 1 Cap [facility] (TESSALON 9-12 by mouth 3 ity of PERLES) 100 00:00: (three) [place] [facility] capsule 00 times Medical daily as Branch needed for Cough. benzonatate 2015-0 Yes 100mg Take 1 Cap [facility] (TESSALON 9-12 by mouth 3 ity of PERLES) 100 00:00: (three) [place] [facility] capsule 00 times Medical daily as Branch needed for Cough. benzonatate 2015-0 Yes 100mg Take 1 Cap [facility] (TESSALON 9-12 by mouth 3 ity of PERLES) 100 00:00: (three) [place] [facility] capsule 00 times Medical daily as Branch needed for Cough. benzonatate 2015-0 Yes 100mg Take 1 Cap [facility] (TESSALON 9-12 by mouth 3 ity of PERLES) 100 00:00: (three) [place] [facility] capsule 00 times Medical daily as Branch needed for Cough. benzonatate 2015-0 Yes 100mg Take 1 Cap [facility] (TESSALON 9-12 by mouth 3 ity of PERLES) 100 00:00: (three) [place] [facility] capsule 00 times Medical daily as Branch needed for Cough. benzonatate 2015-0 Yes 100mg Take 1 Cap [facility] (TESSALON 9-12 by mouth 3 ity of PERLES) 100 00:00: (three) [place] [facility] capsule 00 times Medical daily as Branch needed for Cough. benzonatate 2015-0 Yes 100mg Take 1 Cap [facility] (TESSALON 9-12 by mouth 3 ity of PERLES) 100 00:00: (three) [place] [facility] capsule 00 times Medical daily as Branch needed for Cough. benzonatate 2015-0 Yes 100mg Take 1 Cap [facility] (TESSALON 9-12 by mouth 3 ity of PERLES) 100 00:00: (three) [place] [facility] capsule 00 times Medical daily as Branch needed for Cough. benzonatate 2015-0 Yes 100mg Take 1 Cap [facility] (TESSALON 9-12 by mouth 3 ity of PERLES) 100 00:00: (three) [place] [facility] capsule 00 times Medical daily as Branch needed for Cough. benzonatate 2015-0 Yes 100mg Take 1 Cap [facility] (TESSALON 9-12 by mouth 3 ity of PERLES) 100 00:00: (three) [place] [facility] capsule 00 times Medical daily as Branch needed for Cough. benzonatate 2015-0 Yes 100mg Take 1 Cap [facility] (TESSALON 9-12 by mouth 3 ity of PERLES) 100 00:00: (three) [place] [facility] capsule 00 times Medical daily as Branch needed for Cough. benzonatate 2015-0 Yes 100mg Take 1 Cap [facility] (TESSALON 9-12 by mouth 3 ity of PERLES) 100 00:00: (three) [place] [facility] capsule 00 times Medical daily as Branch needed for Cough. benzonatate 2015-0 Yes 100mg Take 1 Cap [facility] (TESSALON 9-12 by mouth 3 ity of PERLES) 100 00:00: (three) [place] [facility] capsule 00 times Medical daily as Branch needed for Cough. benzonatate 2015-0 Yes 100mg Take 1 Cap [facility] (TESSALON 9-12 by mouth 3 ity of PERLES) 100 00:00: (three) [place] mg capsule 00 times Medical daily as Branch needed for Cough. benzonatate 2015-0 Yes 100mg Take 1 Cap [facility] (TESSALON 9-12 by mouth 3 ity of PERLES) 100 00:00: (three) [place] [facility] capsule 00 times Medical daily as Branch needed for Cough. benzonatate 2015-0 Yes 100mg Take 1 Cap [facility] (TESSALON 9-12 by mouth 3 ity of PERLES) 100 00:00: (three) [place] [facility] capsule 00 times Medical daily as Branch needed for Cough. benzonatate 2015-0 Yes 100mg Take 1 Cap [facility] (TESSALON 9-12 by mouth 3 ity of PERLES) 100 00:00: (three) [place] [facility] capsule 00 times Medical daily as Branch needed for Cough. benzonatate 2015-0 Yes 100mg Take 1 Cap [facility] (TESSALON 9-12 by mouth 3 ity of PERLES) 100 00:00: (three) [place] [facility] capsule 00 times Medical daily as Branch needed for Cough. benzonatate 2015-0 Yes 100mg Take 1 Cap [facility] (TESSALON 9-12 by mouth 3 ity of PERLES) 100 00:00: (three) [place] [facility] mg capsule 00 times Medical daily as Branch needed for Cough. benzonatate 2015-0 Yes 100mg Take 1 Cap [facility] (TESSALON 9-12 by mouth 3 ity of PERLES) 100 00:00: (three) [place] [facility] mg capsule 00 times Medical daily as Branch needed for Cough. benzonatate 2015-0 Yes 100mg Take 1 Cap [facility] (TESSALON 9-12 by mouth 3 ity of PERLES) 100 00:00: (three) [place] [facility] capsule 00 times Medical daily as Branch needed for Cough. benzonatate 2015-0 Yes 100mg Take 1 Cap [facility] (TESSALON 9-12 by mouth 3 ity of PERLES) 100 00:00: (three) [place] mg capsule 00 times Medical daily as Branch needed for Cough. benzonatate 2015-0 Yes 100mg Take 1 Cap [facility] (TESSALON 9-12 by mouth 3 ity of PERLES) 100 00:00: (three) [place] [facility] capsule 00 times Medical daily as Branch needed for Cough. benzonatate Yes 100mg Take 1 Cap [facility] (TESSALON 9-12 by mouth 3 ity of PERLES) 100 00:00: (three) [place] [facility] capsule 00 times Medical daily as Branch needed for Cough. benzonatate 2022- No 100mg Take 1 Cap [facility] (TESSALON 9-09 02- by mouth 3 ity of PERLES) 100 00:00: 00:00 (three) [place] mg capsule 00 :00 times Medical daily as Branch needed for Cough. benzonatate 2022- No 100mg Take 1 Cap [facility] (TESSALON 911-29 by mouth 3 ity of PERLES) 100 00:00: 00:00 (three) [place] mg capsule 00 :00 times Medical daily as Branch needed for Cough. Norethindro Norethindro Yes [place] not Common ne ne [place] defined [facility] IUD's IUD's Yes [place] Paragard Common [place] IUD [facility] Flonase Flonase Yes [place] Common [place] [facility] ZyrTEC ZyrTEC Yes [place] not Common [place] [facility] Vitamin B12 Vitamin B12 Yes [place] (OTC) [address] [place] [address] [facility] Azithromyci Azithromyci No Azithromyc n 500 MG n 500 MG in 500 MG Flonase Flonase No Flonase Vitamin B12 Vitamin B12 No Vitamin mg mg B12 mg ZyrTEC ZyrTEC No ZyrTEC Vitamin D Vitamin D No 1{capsu QD Vitamin D 50 MCG 50 MCG le} 50 MCG (1999) (1999) (1999 [place] Norethindro Norethindro No Norethindr ne [...] Norethindro Norethindro No Norethindr ne ne one Cetirizine Cetirizine No Cetirizine HCl 10 MG HCl 10 MG HCl 10 MG Flonase Flonase No Flonase Azithromyci Azithromyci No Azithromyc n 500 MG n 500 MG in 500 MG methylPREDN methylPREDN No methylPRED ISolone 4 ISolone 4 NISolone 4 MG MG MG Benadryl Benadryl No Benadryl Allergy 25 Allergy 25 Allergy 25 MG MG MG IUD's IUD's No IUD's Norethindro Norethindro No Norethindr ne ne one ZyrTEC ZyrTEC No ZyrTEC Vitamin B12 Vitamin B12 No Vitamin mg mg B12 mg Famotidine Famotidine No Famotidine 20 MG 20 MG 20 MG Ferrous Ferrous No Ferrous Sulfate 325 Sulfate 325 Sulfate (65 Fe) MG (65 Fe) MG 325 (65 Fe) MG Montelukast Montelukast No Montelukas Sodium 10 Sodium 10 t Sodium MG MG 10 MG Cetirizine Cetirizine No Cetirizine HCl 10 MG HCl 10 MG HCl 10 MG Flonase Flonase No Flonase Azithromyci Azithromyci No Azithromyc n 500 MG n 500 MG in 500 MG methylPREDN methylPREDN No methylPRED ISolone 4 ISolone 4 NISolone 4 MG MG MG Benadryl Benadryl No Benadryl Allergy 25 Allergy 25 Allergy 25 MG MG MG Vitamin B12 Vitamin B12 No Vitamin mg mg B12 mg IUD's IUD's No IUD's Norethindro Norethindro No Norethindr ne ne one ZyrTEC ZyrTEC No ZyrTEC Meloxicam Meloxicam No Meloxicam 7.5 MG 7.5 MG 7.5 MG Famotidine Famotidine No Famotidine 20 MG 20 MG 20 MG Ferrous Ferrous No Ferrous Sulfate 325 Sulfate 325 Sulfate (65 Fe) MG (65 Fe) MG 325 (65 Fe) MG Montelukast Montelukast No Montelukas Sodium 10 Sodium 10 t Sodium MG MG 10 MG Montelukast Montelukast No Montelukas Sodium 10 Sodium 10 t Sodium MG MG 10 MG Tylenol Tylenol No Tylenol Cetirizine Cetirizine No Cetirizine HCl 10 MG HCl 10 MG HCl 10 MG methylPREDN methylPREDN No methylPRED ISolone 4 ISolone 4 NISolone 4 MG MG MG Meloxicam Meloxicam No Meloxicam 7.5 MG 7.5 MG 7.5 MG Norethindro Norethindro No Norethindr Common ne ne one [facility] Ferrous Ferrous No Ferrous Sulfate 325 Sulfate 325 Sulfate (65 Fe) MG (65 Fe) MG 325 (65 Fe) MG ZyrTEC ZyrTEC No ZyrTEC Vitamin B12 Vitamin B12 No Vitamin mg mg B12 mg Famotidine Famotidine No Famotidine 20 MG 20 MG 20 MG Norethindro Norethindro No Norethindr ne ne one Flonase Flonase No Flonase IUD's IUD's No IUD's IUD's IUD's No IUD's Common [facility] Benadryl Benadryl No Benadryl Allergy 25 Allergy 25 Allergy 25 MG MG MG Azithromyci Azithromyci No Azithromyc n 500 MG n 500 MG in 500 MG Vitamin B12 Vitamin B12 No Vitamin Common mg mg B12 mg [facility] Montelukast Montelukast No Montelukas Sodium 10 Sodium 10 t Sodium MG MG 10 MG Tylenol Tylenol No Tylenol Cetirizine Cetirizine No Cetirizine HCl 10 MG HCl 10 MG HCl 10 MG methylPREDN methylPREDN No methylPRED ISolone 4 ISolone 4 NISolone 4 MG MG MG Meloxicam Meloxicam No Meloxicam 7.5 MG 7.5 MG 7.5 MG ZyrTEC ZyrTEC No ZyrTEC Common [facility] Ferrous Ferrous No Ferrous Sulfate 325 Sulfate 325 Sulfate (65 Fe) MG (65 Fe) MG 325 (65 Fe) MG ZyrTEC ZyrTEC No ZyrTEC Vitamin B12 Vitamin B12 No Vitamin mg mg B12 mg Famotidine Famotidine No Famotidine 20 MG 20 MG 20 MG Norethindro Norethindro No Norethindr ne ne one Flonase Flonase No Flonase IUD's IUD's No IUD's Benadryl Benadryl No Benadryl Allergy 25 Allergy 25 Allergy 25 MG MG MG Azithromyci Azithromyci No Azithromyc n 500 MG n 500 MG in 500 MG Flonase Flonase No Flonase [facility] Vitamin D Vitamin D No 1{capsu QD Vitamin D Common 50 MCG 50 MCG le} 50 MCG [facility] (1999) (1999) (1999) [facility] Norethindro Norethindro No Norethindr ne ne one IUD's IUD's No IUD's Vitamin B12 Vitamin B12 No Vitamin mg mg B12 mg ZyrTEC ZyrTEC No ZyrTEC Flonase Flonase No Flonase Vitamin D Vitamin D No 1{capsu QD Vitamin D 50 MCG 50 MCG le} 50 MCG (1999) (1999) (1999) Flonase Flonase No Flonase Vitamin B12 Vitamin B12 No Vitamin mg mg B12 mg ZyrTEC ZyrTEC No ZyrTEC Vitamin D Vitamin D No 1{capsu QD Vitamin D 50 MCG 50 MCG le} 50 MCG (1999) (1999) (1999 [place] Norethindro Norethindro No Norethindr ne ne one IUD's IUD's No IUD's Immunizations Ordered Filled Immunization Date Status Comments Sour e Immunization Name Name Influenza, 2022-06-21 Completed injectable, Madin 00:00:00 [place] Canine Kidney, preservative-free, quadrivalent Influenza, 2022-06-21 Completed injectable, Madin 00:00:00 [place] Canine Kidney, preservative-free, quadrivalent Influenza, 2022-06-21 Completed injectable, Madin 00:00:00 [place] Canine Kidney, preservative-free, quadrivalent Influenza, 2022-06-21 Completed injectable, Madin 00:00:00 [place] Canine Kidney, preservative-free, quadrivalent Influenza, 2022-06-21 Completed injectable, Madin 00:00:00 [place] Canine Kidney, preservative-free, quadrivalent Influenza, 2022-06-21 Completed injectable, Madin 00:00:00 [place] Canine Kidney, preservative-free, quadrivalent Influenza, 2022-06-21 Completed injectable, Madin 00:00:00 [place] Canine Kidney, preservative-free, quadrivalent SARS-COV-2 COVID-19 2021-01-09 Completed [facility] PFIZER VACCINE 00:00:00 [facility] SARS-COV-2 COVID-19 2021-01-09 Completed [facility] of PFIZER VACCINE 00:00:00 [facility] SARS-COV-2 COVID-19 2021-01-09 Completed [facility] of PFIZER VACCINE 00:00:00 [facility] SARS-COV-2 COVID-19 2021-01-09 Completed [facility] of PFIZER VACCINE 00:00:00 [facility] SARS-COV-2 COVID-19 2021-01-09 Completed [facility] of PFIZER VACCINE 00:00:00 [facility] SARS-COV-2 COVID-19 2021-01-09 Completed [facility] of PFIZER VACCINE 00:00:00 [facility] SARS-COV-2 COVID-19 2021-01-09 Completed [facility] of PFIZER VACCINE 00:00:00 [facility] SARS-COV-2 COVID-19 2021-01-09 Completed [facility] of PFIZER VACCINE 00:00:00 [facility] SARS-COV-2 COVID-19 2021-01-09 Completed [facility] of PFIZER VACCINE 00:00:00 [facility] SARS-COV-2 COVID-19 2021-01-09 Completed [facility] of PFIZER VACCINE 00:00:00 [facility] SARS-COV-2 COVID-19 2021-01-09 Completed [facility] of PFIZER VACCINE 00:00:00 [facility] SARS-COV-2 COVID-19 2021-01-09 Completed [facility] of PFIZER VACCINE 00:00:00 [facility] SARS-COV-2 COVID-19 2021-01-09 Completed [facility] of PFIZER VACCINE 00:00:00 [facility] SARS-COV-2 COVID-19 2021-01-09 Completed [facility] of PFIZER VACCINE 00:00:00 [facility] SARS-COV-2 COVID-19 2021-01-09 Completed [facility] of PFIZER VACCINE 00:00:00 [facility] SARS-COV-2 COVID-19 2021-01-09 Completed [facility] of PFIZER VACCINE 00:00:00 [facility] SARS-COV-2 COVID-19 2021-01-09 Completed [facility] of PFIZER VACCINE 00:00:00 [facility] SARS-COV-2 COVID-19 2021-01-09 Completed [facility] of PFIZER VACCINE 00:00:00 [facility] SARS-COV-2 COVID-19 2021-01-09 Completed [facility] of PFIZER VACCINE 00:00:00 [facility] SARS-COV-2 COVID-19 2021-01-09 Completed [facility] of PFIZER VACCINE 00:00:00 [facility] SARS-COV-2 COVID-19 2021-01-09 Completed [facility] of PFIZER VACCINE 00:00:00 [facility] SARS-COV-2 COVID-19 2021-01-09 Completed [facility] of PFIZER VACCINE 00:00:00 [facility] SARS-COV-2 COVID-19 2021-01-09 Completed [facility] of PFIZER VACCINE 00:00:00 [facility] SARS-COV-2 COVID-19 2021-01-09 Completed [facility] of PFIZER VACCINE 00:00:00 [facility] SARS-COV-2 COVID-19 2021-01-09 Completed [facility] of PFIZER VACCINE 00:00:00 [facility] SARS-COV-2 COVID-19 2021-01-09 Completed [facility] of PFIZER VACCINE 00:00:00 [facility] SARS-COV-2 COVID-19 2021-01-09 Completed [facility] of PFIZER VACCINE 00:00:00 [facility] SARS-COV-2 COVID-19 2021-01-09 Completed [facility] of PFIZER VACCINE 00:00:00 [facility] SARS-COV-2 COVID-19 2021-01-09 Completed [facility] of PFIZER VACCINE 00:00:00 [facility] SARS-COV-2 COVID-19 2021-01-09 Completed [facility] of PFIZER VACCINE 00:00:00 [facility] SARS-COV-2 COVID-19 2021-01-09 Completed [facility] of PFIZER VACCINE 00:00:00 [facility] SARS-COV-2 COVID-19 2021-01-09 Completed [facility] of PFIZER VACCINE 00:00:00 [facility] SARS-COV-2 COVID-19 2021-01-09 Completed [facility] of PFIZER VACCINE 00:00:00 [facility] SARS-COV-2 COVID-19 2021-01-09 Completed [facility] of PFIZER VACCINE 00:00:00 [facility] SARS-COV-2 COVID-19 2021-01-09 Completed [facility] PFIZER VACCINE 00:00:00 [facility] SARS-COV-2 COVID-19 2021-01-09 Completed [facility] of PFIZER VACCINE 00:00:00 [facility] SARS-COV-2 COVID-19 2021-01-09 Completed [facility] of PFIZER VACCINE 00:00:00 [facility] SARS-COV-2 COVID-19 2021-01-09 Completed [facility] of PFIZER VACCINE 00:00:00 [facility] SARS-COV-2 COVID-19 2021-01-09 Completed [facility] of PFIZER VACCINE 00:00:00 [facility] SARS-COV-2 COVID-19 2021-01-09 Completed [facility] of PFIZER VACCINE 00:00:00 [facility] SARS-COV-2 COVID-19 2021-01-09 Completed [facility] of PFIZER VACCINE 00:00:00 [facility] SARS-COV-2 COVID-19 2021-01-09 Completed [facility] of PFIZER VACCINE 00:00:00 [facility] SARS-COV-2 COVID-19 2021-01-09 Completed [facility] of PFIZER VACCINE 00:00:00 [facility] SARS-COV-2 COVID-19 2021-01-09 Completed [facility] of PFIZER VACCINE 00:00:00 [facility] SARS-COV-2 COVID-19 2021-01-09 Completed [facility] PFIZER VACCINE 00:00:00 [facility] SARS-COV-2 COVID-19 2021-01-09 Completed [facility] of PFIZER VACCINE 00:00:00 [facility] SARS-COV-2 COVID-19 2021-01-09 Completed [facility] of PFIZER VACCINE 00:00:00 [facility] SARS-COV-2 COVID-19 2021-01-09 Completed [facility] of PFIZER VACCINE 00:00:00 [facility] SARS-COV-2 COVID-19 2021-01-09 Completed [facility] of PFIZER VACCINE 00:00:00 [facility] SARS-COV-2 COVID-19 2021-01-09 Completed [facility] of PFIZER VACCINE 00:00:00 [facility] SARS-COV-2 COVID-19 2021-01-09 Completed [facility] of PFIZER VACCINE 00:00:00 [facility] SARS-COV-2 COVID-19 2021-01-09 Completed [facility] of PFIZER VACCINE 00:00:00 [facility] SARS-COV-2 COVID-19 2021-01-09 Completed [facility] of PFIZER VACCINE 00:00:00 [facility] SARS-COV-2 COVID-19 2021-01-09 Completed [facility] of PFIZER VACCINE 00:00:00 [facility] SARS-COV-2 COVID-19 2021-01-09 Completed [facility] of PFIZER VACCINE 00:00:00 [facility] SARS-COV-2 COVID-19 2021-01-09 Completed [facility] of PFIZER VACCINE 00:00:00 [facility] SARS-COV-2 COVID-19 2021-01-09 Completed [facility] of PFIZER VACCINE 00:00:00 [facility] SARS-COV-2 COVID-19 2021-01-09 Completed [facility] of PFIZER VACCINE 00:00:00 [facility] SARS-COV-2 COVID-19 2021-01-09 Completed [facility] of PFIZER VACCINE 00:00:00 [facility] SARS-COV-2 COVID-19 2021-01-09 Completed [facility] of PFIZER VACCINE 00:00:00 [facility] SARS-COV-2 COVID-19 2021-01-09 Completed [facility] of PFIZER VACCINE 00:00:00 [facility] SARS-COV-2 COVID-19 2021-01-09 Completed [facility]ive [facility] of PFIZER VACCINE 00:00:00 [facility] SARS-COV-2 COVID-19 2021-01-09 Completed [facility]ive [facility] of PFIZER VACCINE 00:00:00 [facility] SARS-COV-2 COVID-19 2021-01-09 Completed [facility] of PFIZER VACCINE 00:00:00 [facility] SARS-COV-2 COVID-19 2021-01-09 Completed [facility] of PFIZER VACCINE 00:00:00 [facility] SARS-COV-2 COVID-19 2021-01-09 Completed [facility] of PFIZER VACCINE 00:00:00 [facility] SARS-COV-2 COVID-19 2021-01-09 Completed Unive [facility] of PFIZER VACCINE 00:00:00 [facility] SARS-COV-2 COVID-19 2021-01-09 Completed [facility] of PFIZER VACCINE 00:00:00 [facility] SARS-COV-2 COVID-19 2021-01-09 Completed [facility] PFIZER VACCINE 00:00:00 [facility] SARS-COV-2 COVID-19 2021-01-09 Completed Unive [facility] of PFIZER VACCINE 00:00:00 [facility] SARS-COV-2 COVID-19 2021-01-09 Completed [facility]ive [facility] of PFIZER VACCINE 00:00:00 [facility] SARS-COV-2 COVID-19 2021-01-09 Completed [facility] of PFIZER VACCINE 00:00:00 [facility] SARS-COV-2 COVID-19 2021-01-09 Completed [facility] of PFIZER VACCINE 00:00:00 [facility] SARS-COV-2 COVID-19 2021-01-09 Completed [facility] of PFIZER VACCINE 00:00:00 [facility] SARS-COV-2 COVID-19 2021-01-09 Completed [facility] PFIZER VACCINE 00:00:00 [facility] SARS-COV-2 COVID-19 2021-01-09 Completed [facility] of PFIZER VACCINE 00:00:00 [facility] SARS-COV-2 COVID-19 2021-01-09 Completed [facility] of PFIZER VACCINE 00:00:00 [facility] SARS-COV-2 COVID-19 2021-01-09 Completed [facility] of PFIZER VACCINE 00:00:00 [facility] SARS-COV-2 COVID-19 2021-01-09 Completed [facility] of PFIZER VACCINE 00:00:00 [facility] SARS-COV-2 COVID-19 2021-01-09 Completed [facility] of PFIZER VACCINE 00:00:00 [facility] SARS-COV-2 COVID-19 2021-01-09 Completed [facility] of PFIZER VACCINE 00:00:00 [facility] SARS-COV-2 COVID-19 2021-01-09 Completed [facility] of PFIZER VACCINE 00:00:00 [facility] SARS-COV-2 COVID-19 2021-01-09 Completed [facility] of PFIZER VACCINE 00:00:00 [facility] SARS-COV-2 COVID-19 2021-01-09 Completed [facility] of PFIZER VACCINE 00:00:00 [facility] SARS-COV-2 COVID-19 2021-01-09 Completed [facility] of PFIZER VACCINE 00:00:00 [facility] SARS-COV-2 COVID-19 2021-01-09 Completed [facility]ive [facility] of PFIZER VACCINE 00:00:00 [facility] SARS-COV-2 COVID-19 2021-01-09 Completed Unive [facility]ity of PFIZER VACCINE 00:00:00 [facility] SARS-COV-2 COVID-19 2021-01-09 Completed Unive [facility]ity of PFIZER VACCINE 00:00:00 [facility] SARS-COV-2 COVID-19 2020-12-19 Completed [facility]ive [facility] of PFIZER VACCINE 00:00:00 [facility] SARS-COV-2 COVID-19 2020-12-19 Completed Unive [facility] of PFIZER VACCINE 00:00:00 [facility] SARS-COV-2 COVID-19 2020-12-19 Completed [facility]ive [facility] of PFIZER VACCINE 00:00:00 [facility] SARS-COV-2 COVID-19 2020-12-19 Completed [facility]ive [facility] of PFIZER VACCINE 00:00:00 [facility] SARS-COV-2 COVID-19 2020-12-19 Completed [facility] of PFIZER VACCINE 00:00:00 [facility] SARS-COV-2 COVID-19 2020-12-19 Completed [facility]ive [facility] of PFIZER VACCINE 00:00:00 [facility] SARS-COV-2 COVID-19 2020-12-19 Completed [facility] of PFIZER VACCINE 00:00:00 [facility] SARS-COV-2 COVID-19 2020-12-19 Completed [facility] of PFIZER VACCINE 00:00:00 [facility] SARS-COV-2 COVID-19 2020-12-19 Completed Unive [facility] of PFIZER VACCINE 00:00:00 [facility] SARS-COV-2 COVID-19 2020-12-19 Completed [facility] of PFIZER VACCINE 00:00:00 [facility] SARS-COV-2 COVID-19 2020-12-19 Completed [facility] of PFIZER VACCINE 00:00:00 [facility] SARS-COV-2 COVID-19 2020-12-19 Completed Unive [facility] of PFIZER VACCINE 00:00:00 [facility] SARS-COV-2 COVID-19 2020-12-19 Completed Unive [facility] of PFIZER VACCINE 00:00:00 [facility] SARS-COV-2 COVID-19 2020-12-19 Completed Unive [facility]ity of PFIZER VACCINE 00:00:00 [facility] SARS-COV-2 COVID-19 2020-12-19 Completed [facility]ive [facility] of PFIZER VACCINE 00:00:00 [facility] SARS-COV-2 COVID-19 2020-12-19 Completed [facility]ive [facility] of PFIZER VACCINE 00:00:00 [facility] SARS-COV-2 COVID-19 2020-12-19 Completed [facility] of PFIZER VACCINE 00:00:00 [facility] SARS-COV-2 COVID-19 2020-12-19 Completed Unive [facility] of PFIZER VACCINE 00:00:00 [facility] SARS-COV-2 COVID-19 2020-12-19 Completed Unive [facility] of PFIZER VACCINE 00:00:00 [facility] SARS-COV-2 COVID-19 2020-12-19 Completed [facility]ive [facility] of PFIZER VACCINE 00:00:00 [facility] SARS-COV-2 COVID-19 2020-12-19 Completed [facility] of PFIZER VACCINE 00:00:00 [facility] SARS-COV-2 COVID-19 2020-12-19 Completed Unive [facility] of PFIZER VACCINE 00:00:00 [facility] SARS-COV-2 COVID-19 2020-12-19 Completed Unive [facility] of PFIZER VACCINE 00:00:00 [facility] SARS-COV-2 COVID-19 2020-12-19 Completed Unive [facility] of PFIZER VACCINE 00:00:00 [facility] SARS-COV-2 COVID-19 2020-12-19 Completed [facility]ive [facility] of PFIZER VACCINE 00:00:00 [facility] SARS-COV-2 COVID-19 2020-12-19 Completed [facility] of PFIZER VACCINE 00:00:00 [facility] SARS-COV-2 COVID-19 2020-12-19 Completed [facility] of PFIZER VACCINE 00:00:00 [facility] SARS-COV-2 COVID-19 2020-12-19 Completed [facility]ive [facility] of PFIZER VACCINE 00:00:00 [facility] SARS-COV-2 COVID-19 2020-12-19 Completed [facility] of PFIZER VACCINE 00:00:00 [facility] SARS-COV-2 COVID-19 2020-12-19 Completed [facility] of PFIZER VACCINE 00:00:00 [facility] SARS-COV-2 COVID-19 2020-12-19 Completed [facility] of PFIZER VACCINE 00:00:00 [facility] SARS-COV-2 COVID-19 2020-12-19 Completed [facility]ive [facility] of PFIZER VACCINE 00:00:00 [facility] SARS-COV-2 COVID-19 2020-12-19 Completed [facility]ive [facility] of PFIZER VACCINE 00:00:00 [facility] SARS-COV-2 COVID-19 2020-12-19 Completed Unive [facility] of PFIZER VACCINE 00:00:00 [facility] SARS-COV-2 COVID-19 2020-12-19 Completed Unive [facility] of PFIZER VACCINE 00:00:00 [facility] SARS-COV-2 COVID-19 2020-12-19 Completed [facility] of PFIZER VACCINE 00:00:00 [facility] SARS-COV-2 COVID-19 2020-12-19 Completed [facility]ive [facility] of PFIZER VACCINE 00:00:00 [facility] SARS-COV-2 COVID-19 2020-12-19 Completed [facility] of PFIZER VACCINE 00:00:00 [facility] SARS-COV-2 COVID-19 2020-12-19 Completed [facility]ive [facility] of PFIZER VACCINE 00:00:00 [facility] SARS-COV-2 COVID-19 2020-12-19 Completed [facility] of PFIZER VACCINE 00:00:00 [facility] SARS-COV-2 COVID-19 2020-12-19 Completed [facility] of PFIZER VACCINE 00:00:00 [facility] SARS-COV-2 COVID-19 2020-12-19 Completed [facility]ive [facility] of PFIZER VACCINE 00:00:00 [facility] SARS-COV-2 COVID-19 2020-12-19 Completed Unive rsity of PFIZER VACCINE 00:00:00 [facility] SARS-COV-2 COVID-19 2020-12-19 Completed Unive rsity of PFIZER VACCINE 00:00:00 [facility] SARS-COV-2 COVID-19 2020-12-19 Completed [facility]ive [facility] of PFIZER VACCINE 00:00:00 [facility] SARS-COV-2 COVID-19 2020-12-19 Completed [facility] of PFIZER VACCINE 00:00:00 [facility] SARS-COV-2 COVID-19 2020-12-19 Completed [facility] of PFIZER VACCINE 00:00:00 [facility] SARS-COV-2 COVID-19 2020-12-19 Completed [facility] of PFIZER VACCINE 00:00:00 [facility] SARS-COV-2 COVID-19 2020-12-19 Completed [facility] of PFIZER VACCINE 00:00:00 [facility] SARS-COV-2 COVID-19 2020-12-19 Completed [facility] of PFIZER VACCINE 00:00:00 [facility] SARS-COV-2 COVID-19 2020-12-19 Completed [facility] of PFIZER VACCINE 00:00:00 [facility] SARS-COV-2 COVID-19 2020-12-19 Completed [facility] of PFIZER VACCINE 00:00:00 [facility] SARS-COV-2 COVID-19 2020-12-19 Completed [facility] of PFIZER VACCINE 00:00:00 [facility] SARS-COV-2 COVID-19 2020-12-19 Completed [facility] of PFIZER VACCINE 00:00:00 [facility] SARS-COV-2 COVID-19 2020-12-19 Completed [facility] of PFIZER VACCINE 00:00:00 [facility] SARS-COV-2 COVID-19 2020-12-19 Completed [facility] of PFIZER VACCINE 00:00:00 [facility] SARS-COV-2 COVID-19 2020-12-19 Completed [facility] of PFIZER VACCINE 00:00:00 [facility] SARS-COV-2 COVID-19 2020-12-19 Completed [facility] of PFIZER VACCINE 00:00:00 [facility] SARS-COV-2 COVID-19 2020-12-19 Completed [facility] of PFIZER VACCINE 00:00:00 [facility] SARS-COV-2 COVID-19 2020-12-19 Completed [facility] of PFIZER VACCINE 00:00:00 [facility] SARS-COV-2 COVID-19 2020-12-19 Completed [facility] of PFIZER VACCINE 00:00:00 [facility] SARS-COV-2 COVID-19 2020-12-19 Completed [facility] of PFIZER VACCINE 00:00:00 [facility] SARS-COV-2 COVID-19 2020-12-19 Completed [facility]ive [facility] of PFIZER VACCINE 00:00:00 [facility] SARS-COV-2 COVID-19 2020-12-19 Completed [facility] of PFIZER VACCINE 00:00:00 [facility] SARS-COV-2 COVID-19 2020-12-19 Completed [facility] of PFIZER VACCINE 00:00:00 [facility] SARS-COV-2 COVID-19 2020-12-19 Completed [facility] of PFIZER VACCINE 00:00:00 [facility] SARS-COV-2 COVID-19 2020-12-19 Completed [facility] of PFIZER VACCINE 00:00:00 [facility] SARS-COV-2 COVID-19 2020-12-19 Completed [facility] of PFIZER VACCINE 00:00:00 [facility] SARS-COV-2 COVID-19 2020-12-19 Completed [facility] of PFIZER VACCINE 00:00:00 [facility] SARS-COV-2 COVID-19 2020-12-19 Completed [facility] PFIZER VACCINE 00:00:00 [facility] SARS-COV-2 COVID-19 2020-12-19 Completed [facility] PFIZER VACCINE 00:00:00 [facility] SARS-COV-2 COVID-19 2020-12-19 Completed [facility] PFIZER VACCINE 00:00:00 [facility] SARS-COV-2 COVID-19 2020-12-19 Completed [facility] PFIZER VACCINE 00:00:00 [facility] SARS-COV-2 COVID-19 2020-12-19 Completed [facility] of PFIZER VACCINE 00:00:00 [facility] SARS-COV-2 COVID-19 2020-12-19 Completed [facility] PFIZER VACCINE 00:00:00 [facility] SARS-COV-2 COVID-19 2020-12-19 Completed [facility] PFIZER VACCINE 00:00:00 [facility] SARS-COV-2 COVID-19 2020-12-19 Completed [facility] PFIZER VACCINE 00:00:00 [facility] SARS-COV-2 COVID-19 2020-12-19 Completed [facility] PFIZER VACCINE 00:00:00 [facility] SARS-COV-2 COVID-19 2020-12-19 Completed [facility] PFIZER VACCINE 00:00:00 [facility] SARS-COV-2 COVID-19 2020-12-19 Completed [facility] PFIZER VACCINE [facility]00 [facility] [facility] SARS-COV-2 COVID-19 2020-12-19 Completed [facility] of PFIZER VACCINE 00:00:00 [facility] SARS-COV-2 COVID-19 2020-12-19 Completed [facility] of PFIZER VACCINE 00:00:00 [facility] SARS-COV-2 COVID-19 2020-12-19 Completed [facility] of PFIZER VACCINE 00:00:00 [facility] SARS-COV-2 COVID-19 2020-12-19 Completed [facility] of PFIZER VACCINE 00:00:00 [facility] SARS-COV-2 COVID-19 2020-12-19 Completed [facility] of PFIZER VACCINE 00:00:00 [facility] SARS-COV-2 COVID-19 2020-12-19 Completed [facility]ity of PFIZER VACCINE 00:00:00 [facility] SARS-COV-2 COVID-19 2020-12-19 Completed [facility] of PFIZER VACCINE 00:00:00 [facility] SARS-COV-2 COVID-19 2020-12-19 Completed [facility] of PFIZER VACCINE 00:00:00 [facility] Kenalog Kenalog 2020-11-03 Completed [facility] (Triam[facility]olone) (Triamcinolone) 10:27:00 [facility] Kenalog Kenalog 2020-11-03 Completed [facility] (Triamcinolone) (Triamcinolone) 10:27:00 [facility] Kenalog Kenalog 2020-11-03 Completed [facility] - (Triamcinolone) (Triamcinolone) 10:27:00 [facility] Kenalog Kenalog 2020-11-03 Completed [facility] - (Triamcinolone) (Triamcinolone) 10:27:00 [facility] Kenalog Kenalog 2020-11-03 Completed [facility] - (Triamcinolone) (Triamcinolone) 10:27:00 [facility] Fluzone Fluzone 2018-07-07 Completed [facility] - 08:47:00 [facility] Fluzone Fluzone 2018-07-07 Completed [facility] - 08:47:00 [facility] Fluzone Fluzone 2018-07-07 Completed [facility] - 08:47:00 [facility] Fluzone Fluzone 2018-07-07 Completed [facility] - 08:47:00 [facility] Fluzone Fluzone 2018-07-07 Completed [facility] - 08:47:00 [facility] Fluzone Fluzone 2018-07-07 Completed [facility] - 08:47:00 [facility] Fluzone Fluzone 2018-07-07 Completed [facility] - 08:47:00 [facility] Fluzone Fluzone 2018-07-07 Completed [facility] - 08:47:00 [facility] Fluzone Fluzone 2018-07-07 Completed [facility] - 08:47:00 [facility] Fluzone Fluzone 2018-07-07 Completed [facility] - 08:47:00 [facility] Fluzone Fluzone 2018-07-07 Completed [facility] - 08:47:00 [facility] Fluzone Fluzone 2018-07-07 Completed [facility] - 08:47:00 [facility] Fluzone Fluzone 2018-07-07 Completed [facility] - 08:47:00 [facility] Fluzone Fluzone 2018-07-07 Completed [facility] - 08:47:00 [facility] Fluzone Fluzone 2018-07-07 Completed [facility] - 08:47:00 [facility] Fluzone Fluzone 2018-07-07 Completed [facility] - 08:47:00 [facility] Solumedrol Solumedrol 2018-06-13 Completed [facility] - 125mg/2ml 125mg/2ml 09:55:00 [facility] Solumedrol Solumedrol 2018-06-13 Completed [facility] - 125mg/2ml 125mg/2ml 09:55:00 [facility] Solumedrol Solumedrol 2018-06-13 Completed [facility] - 125mg/2ml 125mg/2ml 09:55:00 [facility] Solumedrol Solumedrol 2018-06-13 Completed [facility] - 125mg/2ml 125mg/2ml 09:55:00 [facility] Solumedrol Solumedrol 2018-06-13 Completed [facility] - 125mg/2ml 125mg/2ml 09:55:00 [facility] Solumedrol Solumedrol 2018-06-13 Completed [facility] - 125mg/2ml 125mg/2ml 09:55:00 [facility] Solumedrol Solumedrol 2018-06-13 Completed [facility] - 125mg/2ml 125mg/2ml 09:55:00 [facility] Solumedrol Solumedrol 2018-06-13 Completed [facility] - 125mg/2ml 125mg/2ml 09:55:00 [facility] Solumedrol Solumedrol 2018-06-13 Completed [facility] - 125mg/2ml 125mg/2ml 09:55:00 [facility] Solumedrol Solumedrol 2018-06-13 Completed [facility] - 125mg/2ml 125mg/2ml 09:55:00 [facility] Solumedrol Solumedrol 2018-03-23 Completed [facility] - 125mg/2ml 125mg/2ml 14:40:00 [facility] Solumedrol Solumedrol 2018-03-23 Completed [facility] - 125mg/2ml 125mg/2ml 14:40:00 [facility] Solumedrol Solumedrol 2018-03-23 Completed [facility] - 125mg/2ml 125mg/2ml 14:40:00 [facility] Solumedrol Solumedrol 2018-03-23 Completed [facility] - 125mg/2ml 125mg/2ml 14:40:00 [facility] Solumedrol Solumedrol 2018-03-23 Completed [facility] - 125mg/2ml 125mg/2ml 14:40:00 [facility] Solumedrol Solumedrol 2018-03-23 Completed [facility] - 125mg/2ml 125mg/2ml 14:40:00 [facility] Solumedrol Solumedrol 2018-03-23 Completed [facility] - 125mg/2ml 125mg/2ml 14:40:00 [facility] Solumedrol Solumedrol 2018-03-23 Completed [facility] - 125mg/2ml 125mg/2ml 14:40:00 [facility] Solumedrol Solumedrol 2018-03-23 Completed [facility] - 125mg/2ml 125mg/2ml 14:40:00 [facility] Solumedrol Solumedrol 2018-03-23 Completed [facility] - 125mg/2ml 125mg/2ml 14:40:00 [facility] Luis Handalog 2017-12-05 Completed [facility] - (Triamcinolone) (Triamcinolone) 13:09:00 [facility] Luis Handalog 2017-12-05 Completed [facility] - (Triamcinolone) (Triamcinolone) 13:09:00 [facility] Luis Smith 2017-12-05 Completed [facility] - (Triamcinolone) (Triamcinolone) 13:09:00 [facility] Luis Smith 2017-12-05 Completed [facility] - (Triamcinolone) (Triamcinolone) 13:09:00 [facility] Luis Smith 2017-12-05 Completed [facility] (Triamcinolone) (Triamcinolone) 13:09:00 [facility] Luis Smith 2017-12-05 Completed [facility] - (Triamcinolone) (Triamcinolone) 13:09:00 [facility] Luis Smith 2017-12-05 Completed [facility] - (Triamcinolone) (Triamcinolone) 13:09:00 [facility] Luis Smith 2017-12-05 Completed [facility] - (Triamcinolone) (Triamcinolone) 13:09:00 [facility] Luis Smith 2017-12-05 Completed [facility] - (Triamcinolone) (Triamcinolone) 13:09:00 [facility] Kendarline Kendarline 2017-12-05 Completed [facility] - (Triamcinolone) (Triamcinolone) 13:09:00 [facility] TDAP 2014-10-02 Completed [facility] 00:00:00 [facility] TDAP 2014-10-02 Completed [facility] 00:00:00 [facility] TDAP 2014-10-02 Completed [facility] 00:00:00 [facility] TDAP 2014-10-02 Completed [facility] 00:00:00 [facility] TDAP 2014-10-02 Completed [facility] 00:00:00 [facility] TDAP 2014-10-02 Completed [facility] 00:00:00 [facility] TDAP 2014-10-02 Completed [facility] 00:00:00 [facility] TDAP 2014-10-02 Completed [facility] 00:00:00 [facility] TDAP 2014-10-02 Completed [facility] 00:00:00 [facility] TDAP 2014-10-02 Completed [facility] 00:00:00 [facility] TDAP 2014-10-02 Completed [facility] 00:00:00 [facility] TDAP 2014-10-02 Completed [facility] 00:00:00 [facility] TDAP 2014-10-02 Completed [facility] 00:00:00 [facility] TDAP 2014-10-02 Completed [facility] 00:00:00 [facility] TDAP 2014-10-02 Completed [facility] 00:00:00 [facility] TDAP 2014-10-02 Completed [facility] 00:00:00 [facility] TDAP 2014-10-02 Completed [facility] 00:00:00 [facility] TDAP 2014-10-02 Completed [facility] 00:00:00 [facility] TDAP 2014-10-02 Completed [facility] 00:00:00 [facility] TDAP 2014-10-02 Completed [facility] 00:00:00 [facility] TDAP 2014-10-02 Completed [facility] 00:00:00 [facility] TDAP 2014-10-02 Completed [facility] 00:00:00 [facility] TDAP 2014-10-02 Completed [facility] 00:00:00 [facility] TDAP 2014-10-02 Completed [facility] 00:00:00 [facility] TDAP 2014-10-02 Completed [facility] 00:00:00 [facility] TDAP 2014-10-02 Completed [facility] 00:00:00 [facility] TDAP 2014-10-02 Completed [facility] 00:00:00 [facility] TDAP 2014-10-02 Completed [facility] 00:00:00 [facility] TDAP 2014-10-02 Completed [facility] 00:00:00 [facility] TDAP 2014-10-02 Completed [facility] 00:00:00 [facility] TDAP 2014-10-02 Completed [facility] 00:00:00 [facility] TDAP 2014-10-02 Completed [facility] 00:00:00 [facility] TDAP 2014-10-02 Completed [facility] 00:00:00 [facility] TDAP 2014-10-02 Completed [facility] 00:00:00 [facility] TDAP 2014-10-02 Completed [facility] 00:00:00 [facility] TDAP 2014-10-02 Completed [facility] 00:00:00 [facility] TDAP 2014-10-02 Completed [facility] 00:00:00 [facility] TDAP 2014-10-02 Completed [facility] 00:00:00 [facility] TDAP 2014-10-02 Completed [facility] 00:00:00 [facility] TDAP 2014-10-02 Completed [facility] 00:00:00 [facility] TDAP 2014-10-02 Completed [facility] 00:00:00 [facility] TDAP 2014-10-02 Completed [facility] 00:00:00 [facility] TDAP 2014-10-02 Completed [facility] 00:00:00 [facility] TDAP 2014-10-02 Completed [facility] 00:00:00 [facility] TDAP 2014-10-02 Completed [facility] 00:00:00 [facility] TDAP 2014-10-02 Completed [facility] 00:00:00 [facility] TDAP 2014-10-02 Completed [facility] 00:00:00 [facility] TDAP 2014-10-02 Completed [facility] 00:00:00 [facility] TDAP 2014-10-02 Completed [facility] 00:00:00 [facility] TDAP 2014-10-02 Completed [facility] 00:00:00 [facility] TDAP 2014-10-02 Completed [facility] 00:00:00 [facility] TDAP 2014-10-02 Completed [facility] 00:00:00 [facility] TDAP 2014-10-02 Completed [facility] 00:00:00 [facility] TDAP 2014-10-02 Completed [facility] 00:00:00 [facility] TDAP 2014-10-02 Completed [facility] 00:00:00 [facility] TDAP 2014-10-02 Completed [facility] 00:00:00 [facility] TDAP 2014-10-02 Completed [facility] 00:00:00 [facility] TDAP 2014-10-02 Completed [facility] 00:00:00 [facility] TDAP 2014-10-02 Completed [facility] 00:00:00 [facility] TDAP 2014-10-02 Completed [facility] 00:00:00 [facility] TDAP 2014-10-02 Completed [facility] 00:00:00 [facility] TDAP 2014-10-02 Completed [facility] 00:00:00 [facility] TDAP 2014-10-02 Completed [facility] 00:00:00 [facility] TDAP 2014-10-02 Completed [facility] 00:00:00 [facility] TDAP 2014-10-02 Completed [facility] 00:00:00 [facility] TDAP 2014-10-02 Completed [facility] 00:00:00 [facility] TDAP 2014-10-02 Completed [facility] 00:00:00 [facility] TDAP 2014-10-02 Completed [facility] 00:00:00 [facility] TDAP 2014-10-02 Completed [facility] 00:00:00 [facility] TDAP 2014-10-02 Completed [facility] 00:00:00 [facility] TDAP 2014-10-02 Completed [facility] 00:00:00 [facility] TDAP 2014-10-02 Completed [facility] 00:00:00 [facility] TDAP 2014-10-02 Completed [facility] 00:00:00 [facility] TDAP 2014-10-02 Completed [facility] 00:00:00 [facility] TDAP 2014-10-02 Completed [facility] 00:00:00 [facility] TDAP 2014-10-02 Completed [facility] 00:00:00 [facility] TDAP 2014-10-02 Completed [facility] 00:00:00 [facility] TDAP 2014-10-02 Completed [facility] 00:00:00 [facility] TDAP 2014-10-02 Completed [facility] 00:00:00 [facility] TDAP 2014-10-02 Completed [facility] 00:00:00 [facility] TDAP 2014-10-02 Completed [facility] 00:00:00 [facility] TDAP 2014-10-02 Completed [facility] 00:00:00 [facility] TDAP 2014-10-02 Completed [facility] 00:00:00 [facility] TDAP 2014-10-02 Completed [facility] 00:00:00 [facility] TDAP 2014-10-02 Completed [facility] 00:00:00 [facility] TDAP 2014-10-02 Completed [facility] 00:00:00 [facility] TDAP 2014-10-02 Completed [facility] 00:00:00 [facility] TDAP 2014-10-02 Completed [facility] 00:00:00 [facility] Vital Signs Vital Name Observation Time Observation Value Comments Source Systolic blood 2023-02-06 13:35:00 130 mm[Hg] Univer [facility]ity of pressure [facility] Diastolic blood 2023-02-06 13:35:00 76 mm[Hg] [facility]ity of pressure [facility] Heart rate 2023-02-06 13:35:00 55 /min [facility] Body temperature 2023-02-06 13:35:00 36.89 [facility] ersity of [facility] Respiratory rate 2023-02-06 13:35:00 17 /min [facility] ersity of [facility] Body weight 2023-02-06 13:35:00 85.049 kg [facility]i [facility] of [facility] BMI 2023-02-06 13:35:00 37.24 kg/m2 Universi ty [facility] Oxygen saturation in 2023-02-06 13:35:00 100 /min [facility] Arterial blood by [facility] Pulse oximetry Branch Systolic blood 2023-01-26 18:57:00 127 mm[Hg] Univer [facility]ity of pressure [facility] Diastolic blood 2023-01-26 18:57:00 78 mm[Hg] [facility]ive [facility]ity of [facility] Heart rate 2023-01-26 18:57:00 67 /min [facility]i [facility] of [facility] Body temperature 2023-01-26 18:57:00 36.28 [facility] ersity of [facility] Body height 2023-01-26 18:57:00 151.1 cm [facility] of [facility] Body weight 2023-01-26 18:57:00 85.095 kg [facility] of [facility] BMI 2023-01-26 18:57:00 37.26 kg/m2 [facility] of [facility] Systolic blood 2023-01-25 19:45:00 130 mm[Hg] Univer [facility]ity of pressure [facility] Diastolic blood 2023-01-25 19:45:00 83 mm[Hg] Unive rsity of pressure [facility] Heart rate 2023-01-25 19:45:00 68 /min [facility] Body temperature 2023-01-25 19:45:00 37.06 Becka Univ ersity of [facility] Body height 2023-01-25 19:45:00 151.1 cm [facility] Body weight 2023-01-25 19:45:00 85.458 kg [facility] BMI 2023-01-25 19:45:00 37.42 kg/m2 [facility] Systolic blood 2023-01-23 15:03:00 138 mm[Hg] Univer sity of pressure [facility] Diastolic blood 2023-01-23 15:03:00 88 mm[Hg] Unive rsity of pressure [facility] Heart rate 2023-01-23 15:03:00 52 /min [facility] Body temperature 2023-01-23 15:03:00 36.28 Becka [facility] of [facility] Body height 2023-01-23 15:03:00 151.1 cm [facility] Body weight 2023-01-23 15:03:00 86.229 kg [facility] BMI 2023-01-23 15:03:00 37.75 kg/m2 [facility] Systolic blood 2023-01-12 20:11:00 147 mm[Hg] Univer sity of pressure [facility] Diastolic blood 2023-01-12 20:11:00 79 mm[Hg] Unive rsity of pressure [facility] Heart rate 2023-01-12 20:11:00 59 /min [facility] Body temperature 2023-01-12 20:11:00 36.83 Beck[facility] Univ [facility] of [facility] Body height 2023-01-12 20:11:00 151.1 cm [facility] Body weight 2023-01-12 20:11:00 86.002 kg [facility] BMI 2023-01-12 20:11:00 37.65 kg/m2 [facility] Heart rate 2022-12-27 15:20:00 50 /min [facility] Respiratory rate 2022-12-27 15:20:00 11 /min Univ ersity of [facility] Oxygen saturation in 2022-12-27 15:20:00 100 /min [facility] of Arterial blood by [facility] Pulse oximetry [facility] Systolic blood 2022-12-27 15:15:00 127 mm[Hg] Univer sity of pressure [facility] Diastolic blood 2022-12-27 15:15:00 75 mm[Hg] Unive rsity of pressure [facility] Body temperature 2022-12-27 13:49:00 36.61 Beck[facility] Body height 2022-12-13 15:00:00 151.1 cm [facility] Body weight 2022-12-13 15:00:00 84.823 kg [facility] BMI 2022-12-13 15:00:00 37.14 kg/m2 [facility] Heart rate 2022-12-27 15:20:00 50 /min [facility] Respiratory rate 2022-12-27 15:20:00 11 /min Univ ersity of [facility] Oxygen saturation in 2022-12-27 15:20:00 100 /min [facility] of Arterial blood by [facility] Pulse oximetry [facility] Systolic blood 2022-12-27 15:15:00 127 mm[Hg] Univer sity of pressure [facility] Diastolic blood 2022-12-27 15:15:00 75 mm[Hg] Unive rsity of pressure [facility] Body temperature 2022-12-27 13:49:00 36.61 Beck[facility] Univ [facility] of [facility] Body height 2022-12-13 15:00:00 151.1 cm [facility] Body weight 2022-12-13 15:00:00 84.823 kg [facility] BMI 2022-12-13 15:00:00 37.14 kg/m2 [facility] Systolic blood 2022-12-15 19:59:00 124 mm[Hg] Univer sity of pressure [facility] Diastolic blood 2022-12-15 19:59:00 72 mm[Hg] Unive rsity of pressure [facility] Heart rate 2022-12-15 19:59:00 58 /min [facility] Body temperature 2022-12-15 19:59:00 36.72 [facility] Body height 2022-12-15 19:59:00 151.1 cm [facility] Body weight 2022-12-15 19:59:00 86.274 kg [facility] BMI 2022-12-15 19:59:00 37.77 kg/m2 [facility] Systolic blood 2022-12-02 15:03:00 130 mm[Hg] Univer sity of pressure [facility] Diastolic blood 2022-12-02 15:03:00 74 mm[Hg] Unive rsity of pressure [facility] Heart rate 2022-12-02 15:03:00 65 /min [facility] Respiratory rate 2022-12-02 15:03:00 21 /min Univ [facility] [place] Body height 2022-12-02 15:03:00 156.2 cm [facility] Body weight 2022-12-02 15:03:00 86.183 kg [facility] BMI 2022-12-02 15:03:00 35.32 kg/m2 [facility] Oxygen saturation in 2022-12-02 15:03:00 99 /min University of Arterial blood by [facility] Pulse oximetry Branch Systolic blood 2022-11-29 20:39:00 133 mm[Hg] Univer sity of [facility] [place] Diastolic blood 2022-11-29 20:39:00 82 mm[Hg] Unive rsity of [facility] Heart rate 2022-11-29 20:39:00 74 /min [facility] Body temperature 2022-11-29 20:39:00 36.83 Becka Univ ersity of [facility] Respiratory rate 2022-11-29 20:39:00 18 /min Univ ersity of [facility] Body height 2022-11-29 20:39:00 151.1 cm [facility] Body weight 2022-11-29 20:39:00 85.186 kg [facility] BMI 2022-11-29 20:39:00 37.30 kg/m2 [facility] Systolic blood 2022-11-24 19:36:00 132 mm[Hg] Univer sity of pressure [facility] Diastolic blood 2022-11-24 19:36:00 83 mm[Hg] Unive rsity of pressure [facility] Heart rate 2022-11-24 19:36:00 60 /min [facility] Body temperature 2022-11-24 19:36:00 37.06 Beck[facility] of [facility] Respiratory rate 2022-11-24 19:36:00 18 /min Univ ersity of [facility] Body height 2022-11-24 19:36:00 151.1 cm [facility] Body weight 2022-11-24 19:36:00 84.823 kg [facility] BMI 2022-11-24 19:36:00 37.14 kg/m2 [facility] Systolic blood 2022-11-22 17:14:00 128 mm[Hg] Univer sity of pressure [facility] Diastolic blood 2022-11-22 17:14:00 70 mm[Hg] Unive rsity of pressure [facility] Heart rate 2022-11-22 17:14:00 60 /min [facility] Body temperature 2022-11-22 17:14:00 35.78 [facility] Body height 2022-11-22 17:14:00 151.1 cm [facility] Body weight 2022-11-22 17:14:00 85.276 kg [facility] BMI 2022-11-22 17:14:00 37.34 kg/m2 [facility] Systolic blood 2022-11-16 16:59:00 121 mm[Hg] Univer sity of pressure [facility] Diastolic blood 2022-11-16 16:59:00 71 mm[Hg] Unive rsity of pressure [facility] Heart rate 2022-11-16 16:52:00 69 /min [facility] Body temperature 2022-11-16 16:52:00 36.67 [facility] Respiratory rate 2022-11-16 16:52:00 18 /min Univ ersity of [facility] Body height 2022-11-16 16:52:00 151.1 cm [facility] Body weight 2022-11-16 16:52:00 85.639 kg Universi ty of [facility] BMI 2022-11-16 16:52:00 37.49 kg/m2 Universi ty of [facility] Systolic blood 2022-11-14 15:57:00 150 mm[Hg] Univer sity of pressure [facility] Diastolic blood 2022-11-14 15:57:00 94 mm[Hg] Unive rsity of pressure [facility] Heart rate 2022-11-14 15:57:00 70 /min [facility]i ty of [facility] Body temperature 2022-11-14 15:57:00 36.33 [facility] Univ ersity of [facility] Body height 2022-11-14 15:57:00 149.9 cm Universi ty of [facility] Body weight 2022-11-14 15:57:00 86.274 kg [facility]i ty of [facility] BMI 2022-11-14 15:57:00 38.42 kg/m2 Universi ty of [facility] Systolic blood 2022-10-31 16:41:00 137 mm[Hg] Univer sity of pressure [facility] Diastolic blood 2022-10-31 16:41:00 85 mm[Hg] Unive rsity of pressure [facility] Heart rate 2022-10-31 16:41:00 68 /min [facility]i ty of [facility] Body temperature 2022-10-31 16:41:00 36.83 Beck[facility] Univ ers[facility] of [facility] Body height 2022-10-31 16:41:00 149.9 cm Universi ty of [facility] Body weight 2022-10-31 16:41:00 87.272 kg Universi ty of [facility] BMI 2022-10-31 16:41:00 38.86 kg/m2 Universi ty of [facility] height 2022-10-26 09:15:00 61 [in_i] [facility] weight 2022-10-26 09:15:00 188.2 [lb_av] [facility] temperature 2022-10-26 09:15:00 98.2 [degF] [facility] bmi 2022-10-26 09:15:00 35.56 kg/m2 [facility] blood pressure 2022-10-26 09:15:00 127 mm[Hg] [facility] - systolic [facility] blood pressure 2022-10-26 09:15:00 82 mm[Hg] [facility] - diastolic [facility] height 2022-10-05 09:00:00 61 [in_i] [facility] weight 2022-10-05 09:00:00 188.2 [lb_av] [facility] temperature 2022-10-05 09:00:00 97.6 [degF] [facility] bmi 2022-10-05 09:00:00 35.56 kg/m2 [facility] blood pressure 2022-10-05 09:00:00 128 mm[Hg] [facility] - systolic [facility] blood pressure 2022-10-05 09:00:00 83 mm[Hg] [facility] diastolic [facility] height 2022-09-15 08:30:00 61 [in_i] [facility] weight 2022-09-15 08:30:00 188.2 [lb_av] [facility] temperature 2022-09-15 08:30:00 98.6 [degF] [facility] bmi 2022-09-15 08:30:00 35.56 kg/m2 [facility] blood pressure 2022-09-15 08:30:00 132 mm[Hg] [facility] systolic [facility] blood pressure 2022-09-15 08:30:00 80 mm[Hg] [facility] diastolic [facility] height 2022-09-05 16:20:00 61 [in_i] [facility] weight 2022-09-05 16:20:00 190.2 [lb_av] [facility] temperature 2022-09-05 16:20:00 97.5 [degF] [facility] bmi 2022-09-05 16:20:00 35.93 kg/m2 [facility] oximetry 2022-09-05 16:20:00 100 % [facility] respiratory rate 2022-09-05 16:20:00 16 /min Comm on [facility] blood pressure 2022-09-05 16:20:00 130 mm[Hg] [facility] blood pressure 2022-09-05 16:20:00 68 mm[Hg] [facility] diastolic [facility] height 2021-06-30 09:00:00 61 [in_i] Common [facility] weight 2021-06-30 09:00:00 180 [facility] 2021-06-30 09:00:00 34.01 kg/m2 [facility] height 2021-05-31 10:20:00 61 [in_i] [facility] weight 2021-05-31 10:20:00 183.0 [lb_av] [facility] temperature 2021-05-31 10:20:00 97.7 [degF] [facility] bmi 2021-05-31 10:20:00 34.57 kg/m2 [facility] oximetry 2021-05-31 10:20:00 98 % [facility] respiratory rate 2021-05-31 10:20:00 16 /min Comm on [facility] blood pressure 2021-05-31 10:20:00 130 mm[Hg] Common [facility] - systolic [facility] blood pressure 2021-05-31 10:20:00 78 mm[Hg] [facility] height 2020-11-03 10:00:00 61 [in_i] [facility] weight 2020-11-03 10:00:00 194.5 [lb_av] Common [facility] temperature 2020-11-03 10:00:00 98.8 [degF] Common [facility] bmi 2020-11-03 10:00:00 36.75 kg/m2 [facility] oximetry 2020-11-03 10:00:00 98 % [facility] respiratory rate 2020-11-03 10:00:00 18 /min Comm on [facility] blood pressure 2020-11-03 10:00:00 130 mm[Hg] Common [facility] - systolic [facility] blood pressure 2020-11-03 10:00:00 80 mm[Hg] Common [facility] - diastolic [facility] height 2020-09-18 10:20:00 61 [in_i] [facility] weight 2020-09-18 10:20:00 198.6 [lb_av] [facility] temperature 2020-09-18 10:20:00 98.0 [degF] [facility] bmi 2020-09-18 10:20:00 37.52 kg/m2 [facility] oximetry 2020-09-18 10:20:00 95 % [facility] respiratory rate 2020-09-18 10:20:00 18 /min Comm on [facility] blood pressure 2020-09-18 10:20:00 120 mm[Hg] Common [facility] - systolic [facility] blood pressure 2020-09-18 10:20:00 72 mm[Hg] Common [facility] - diastolic [facility] BP Systolic 2022-10-04 10:10:00 133 mm[Hg] BP Diastolic 2022-10-04 10:10:00 85 mm[Hg] Weight Measured 2022-10-04 10:10:00 190.20 pounds Height Measured 2022-10-04 10:10:00 65.00 inches Body Temperature 2022-10-04 10:10:00 98.40 degrees Heart Rate 2022-10-04 10:10:00 74.00 /min Respiratory Rate 2022-10-04 10:10:00 18.00 /min BP Systolic 2022-09-28 09:00:00 124 mm[Hg] BP [...] Respiratory Rate 2018-12-31 11:56:00 17.00 /min Procedures Procedure Date / Time Performing Clinician Source Performed REFERRAL- 2023-02-14 05:01:00 Doctor Unassigned, No [facility] REQUEST/RESPONSE Name [facility] [place] REFERRAL- 2023-01-10 05:01:00 Doctor Unassigned, No [facility] REQUEST/RESPONSE Name [facility] HYSTEROSCOPY 2022-12-27 12:42:00 Andrew Ovalle [facility] POLYPECTOMY 2022-12-27 12:42:00 Andrew Ovalle [facility] DILATION AND CURETTAGE 2022-12-27 12:42:00 Andrew Ovalle [facility] POCT TEST 2022-12-27 12:15:00 [facility] POCT TEST 2022-12-27 12:15:00 Phil [facility] DAY SURGERY - ADC 2022-12-27 05:01:00 Doctor Unassigned, Suzan [facility] PATIENT QUESTIONNAIRE 2022-12-15 05:01:00 Doctor Unassigned, Suzan [facility] US PELVIS COMPLETE WITH 2022-12-05 19:10:51 Andrew Ovalle [facility] TRANSVAGINAL [facility] ASSIGNMENT OF BENEFITS 2022-12-05 16:04:44 Doctor Unassigned, No [facility] HB ECG ROUTINE & RHYTHM 2022-12-02 15:06:13 Archana Rogel [facility] EKG (SCANNED DOCUMENTS) 2022-12-02 06:01:00 Doctor Unassigned, N o [facility] DSU PRE-OP 2022-12-01 06:01:00 Doctor Unassigned, No [facility] MR LUMBAR SPINE WO 2022-11-30 21:54:58 Glory Rubalcava [facility] NOTICE OF PRIVACY 2022-11-30 21:06:03 Doctor Unassigned, No [facility] NOTICE OF PRIVACY 2022-11-30 21:06:03 Doctor Unassigned, No [facility] CONSENT/REFUSAL FOR 2022-11-30 21:05:43 [facility]igned[facility] CONSENT/REFUSAL FOR 2022-11-30 21:05:43 Doctor Unassigned, [facility] ASSIGNMENT OF BENEFITS 2022-11-30 21:05:26 Doctor Unassigned, No [facility] ASSIGNMENT OF BENEFITS 2022-11-30 21:05:26 Doctor Unassigned, No [facility] POCT TEST 2022-11-24 19:46:00 Andrew Ovalle [facility] XR LUMBAR SPINE 2 VW 2022-11-22 17:31:21 Glory Rubalcava [facility] PATIENT QUESTIONNAIRE 2022-11-22 06:01:00 Doctor Unassigned, No [facility] POCT URINALYSIS W/O 2022-11-16 00:00:00 Colin Hickey [facility] SPECIFIC GRAVITY [facility] XR ANKLE 3+ VW RIGHT 2022-11-14 16:08:10 [facility] X[facility] FOOT 3+ VW RIGHT 2022-11-14 16:07:57 [facility] EXTERNAL PROVIDER 2022-11-08 06:01:00 Doctor Unassigned, No [facility] RECORDS Name [facility] REFERRAL- 2022-10-27 06:01:00 Doctor Unassigned, No [facility] [place] REQUEST/RESPONSE Name [facility] Plan of Care Planned Activity Planned Date Details Comments Source Goal Plan of Care Note [code = 53179-1] Goal Plan of Care Note [code = 01830-4] Goal Plan of Care Note [code = 02480-1] Goal Plan of Care Note [code = 14113-3] Goal Plan of Care Note [code = 75266-3] Goal Plan of Care Note [code = 09432-6] Goal Plan of Care Note [code = 64791-1] Goal Plan of Care Note [code = 14214-3] Goal Plan of Care Note [code = 76131-0] Goal Plan of Care Note [code = 26300-8] Goal Plan of Care Note [code = 47338-1] Goal Plan of Care Note [code = 76127-7] Goal Plan of Care Note [code = 73428-1] Goal Plan of Care Note [code = 20623-7] Goal Plan of Care Note [code = 32936-0] Goal Plan of Care Note [code = 27940-2] Goal Plan of Care Note [code = 49947-5] Goal Plan of Care Note [code = 67671-0] Goal Plan of Care Note [code = 42872-4] Goal Plan of Care Note [code = 21768-8] Goal Plan of Care Note [code = 21748-9] Goal Plan of Care Note [code = 25406-6] Goal Plan of Care Note [code = 95997-4] Goal Plan of Care Note [code = 60928-7] Goal Plan of Care Note [code = 85292-1] Goal Plan of Care Note [code = 84903-4] Goal Plan of Care Note [code = 83045-7] Goal Plan of Care Note [code = 39800-1] Goal Plan of Care Note [code = 26073-8] Goal Plan of Care Note [code = 65626-0] Goal Plan of Care Note [code = 36459-6] Goal Plan of Care Note [code = 88513-8] Goal Plan of Care Note [code = 17141-3] Goal Plan of Care Note [code = 86595-2] Goal Plan of Care Note [code = 32096-4] Goal Plan of Care Note [code = 57676-9] Goal Plan of Care Note [code = 45963-7] Goal Plan of Care Note [code = 88873-4] Goal Plan of Care Note [code = 18964-0] Goal Plan of Care Note [code = 46399-4] Goal Plan of Care Note [code = 20582-0] Goal Plan of Care Note [code = 06362-7] Goal Plan of Care Note [code = 25415-1] Goal Plan of Care Note [code = 20806-3] Goal Plan of Care Note [code = 67511-3] Goal Plan of Care Note [code = 58634-3] Goal Plan of Care Note [code = 80890-2] Goal Plan of Care Note [code = 22006-9] Goal Plan of Care Note [code = 42986-0] Goal Plan of Care Note [code = 01130-2] Goal Plan of Care Note [code = 89479-2] Goal Plan of Care Note [code = 75304-2] Goal Plan of Care Note [code = 36602-1] Goal Plan of Care Note [code = 55568-9] Goal Plan of Care Note [code = 08834-5] Goal Plan of Care Note [code = 50309-0] Goal Plan of Care Note [code = 41565-8] Goal Plan of Care Note [code = 50738-6] Goal Plan of Care Note [code = 27978-7] Goal Plan of Care Note [code = 95015-9] Goal Plan of Care Note [code = 31089-2] Goal Plan of Care Note [code = 63042-0] Goal Plan of Care Note [code = 88059-2] Goal Plan of Care Note [code = 71696-7] Goal Plan of Care Note [code = 82703-6] Goal Plan of Care Note [code = 17174-8] Goal Plan of Care Note [code = 85012-7] Goal Plan of Care Note [code = 74392-1] Goal Plan of Care Note [code = 61958-2] Goal Plan of Care Note [code = 18609-1] Goal Plan of Care Note [code = 48466-8] Goal Plan of Care Note [code = 36388-4] Goal Plan of Care Note [code = 49432-3] Goal Plan of Care Note [code = 69827-7] Goal Plan of Care Note [code = 98884-4] Goal Plan of Care Note [code = 41739-9] Goal Plan of Care Note [code = 89963-8] Goal Plan of Care Note [code = 16628-1] Goal Plan of Care Note [code = 39902-9] Goal Plan of Care Note [code = 83287-5] Goal Plan of Care Note [code = 16545-9] Goal Plan of Care Note [code = 06161-7] Goal Plan of Care Note [code = 43870-6] Goal Plan of Care Note [code = 48286-2] Goal Plan of Care Note [code = 53310-8] Goal Plan of Care Note [code = 41045-9] Goal Plan of Care Note [code = 05381-0] Goal Plan of Care Note [code = 03429-4] Goal Plan of Care Note [code = 31644-0] Goal Plan of Care Note [code = 04721-8] Goal Plan of Care Note [code = 62151-5] Goal Plan of Care Note [code = 52758-2] Goal Plan of Care Note [code = 63417-3] Goal Plan of Care Note [code = 75475-2] Goal Plan of Care Note [code = 16394-4] Goal Plan of Care Note [code = 97668-0] Goal Plan of Care Note [code = 34587-8] Goal Plan of Care Note [code = 85331-5] Goal Plan of Care Note [code = 54769-6] Goal Plan of Care Note [code = 51985-2] Goal Plan of Care Note [code = 00435-6] Goal Plan of Care Note [code = 54260-4] Goal Plan of Care Note [code = 57951-1] Goal Plan of Care Note [code = 56555-9] Goal Plan of Care Note [code = 88235-7] Goal Plan of Care Note [code = 11744-5] Goal Plan of Care Note [code = 72173-9] Goal Plan of Care Note [code = 67824-5] Goal Plan of Care Note [code = 09022-2] Goal Plan of Care Note [code = 22093-7] Goal Plan of Care Note [code = 31736-5] Goal Plan of Care Note [code = 29299-2] Goal Plan of Care Note [code = 59759-6] Goal Plan of Care Note [code = 62006-3] Goal Plan of Care Note [code = 06697-7] Goal Plan of Care Note [code = 64557-3] Goal Plan of Care Note [code = 05802-8] Goal Plan of Care Note [code = 57735-5] Goal Plan of Care Note [code = 67085-5] Goal Plan of Care Note [code = 93582-6] Goal Plan of Care Note [code = 46712-5] Goal Plan of Care Note [code = 49830-4] Goal Plan of Care Note [code = 10747-7] Goal Plan of Care Note [code = 65803-7] Goal Plan of Care Note [code = 75482-3] Goal Plan of Care Note [code = 89146-9] Goal Plan of Care Note [code = 49240-7] Goal Plan of Care Note [code = 24298-2] Goal Plan of Care Note [code = 22634-7] Goal Plan of Care Note [code = 44566-7] Goal Plan of Care Note [code = 63536-3] Goal Plan of Care Note [code = 22312-9] Goal Plan of Care Note [code = 11863-3] Goal Plan of Care Note [code = 11786-6] Goal Plan of Care Note [code = 94293-7] Goal Plan of Care Note [code = 80824-4] Goal Plan of Care Note [code = 81361-1] Goal Plan of Care Note [code = 93701-6] Goal Plan of Care Note [code = 08537-0] Goal Plan of Care Note [code = 38521-8] Goal Plan of Care Note [code = 95904-7] Goal Plan of Care Note [code = 42066-2] Goal Plan of Care Note [code = 38736-3] Goal Plan of Care Note [code = 43519-1] Goal Plan of Care Note [code = 27345-1] Goal Plan of Care Note [code = 09617-6] Goal Plan of Care Note [code = 74124-8] Goal Plan of Care Note [code = 07341-9] Goal Plan of Care Note [code = 86623-9] Goal Plan of Care Note [code = 87382-3] Goal Plan of Care Note [code = 74336-9] Goal Plan of Care Note [code = 40197-2] Goal Plan of Care Note [code = 43405-0] Goal Plan of Care Note [code = 55847-1] Goal Plan of Care Note [code = 06389-3] Goal Plan of Care Note [code = 47047-5] Goal Plan of Care Note [code = 28835-4] Goal Plan of Care Note [code = 73001-6] Goal Plan of Care Note [code = 66144-9] Goal Plan of Care Note [code = 86620-9] Goal Plan of Care Note [code = 29227-7] Goal Plan of Care Note [code = 65504-7] Goal Plan of Care Note [code = 36904-5] Goal Plan of Care Note [code = 06972-2] Goal Plan of Care Note [code = 87333-7] Goal Plan of Care Note [code = 76080-9] Goal Plan of Care Note [code = 39387-5] Goal Plan of Care Note [code = 60605-1] Goal Plan of Care Note [code = 00967-5] Goal Plan of Care Note [code = 97630-3] Goal Plan of Care Note [code = 94888-7] Goal Plan of Care Note [code = 43753-0] Goal Plan of Care Note [code = 32097-5] Goal Plan of Care Note [code = 95054-2] Goal Plan of Care Note [code = 76585-2] Goal Plan of Care Note [code = 75661-0] Goal Plan of Care Note [code = 31620-7] Goal Plan of Care Note [code = 57501-3] Goal Plan of Care Note [code = 15464-7] Goal Plan of Care Note [code = 30228-7] Goal Plan of Care Note [code = 16076-2] Goal Plan of Care Note [code = 44405-2] Goal Plan of Care Note [code = 20341-3] Goal Plan of Care Note [code = 60099-9] Goal Plan of Care Note [code = 62519-6] Goal Plan of Care Note [code = 94640-5] Goal Plan of Care Note [code = 58286-7] Goal Plan of Care Note [code = 86742-9] Goal Plan of Care Note [code = 45091-0] Goal Plan of Care Note [code = 11672-0] Goal Plan of Care Note [code = 25728-4] Goal Plan of Care Note [code = 28595-0] Goal Plan of Care Note [code = 51469-3] Goal Plan of Care Note [code = 70354-3] Goal Plan of Care Note [code = 78902-1] Goal Plan of Care Note [code = 24666-0] Goal Plan of Care Note [code = 33277-2] Goal Plan of Care Note [code = 02353-7] Goal Plan of Care Note [code = 05280-2] Goal Plan of Care Note [code = 54993-7] Goal Plan of Care Note [code = 28107-8] Goal Plan of Care Note [code = 14126-0] Goal Plan of Care Note [code = 07601-1] Goal Plan of Care Note [code = 57478-1] Goal Plan of Care Note [code = 96281-0] Goal Plan of Care Note [code = 93838-8] Goal Plan of Care Note [code = 54508-7] Goal Plan of Care Note [code = 42637-6] Goal Plan of Care Note [code = 81319-0] Goal Plan of Care Note [code = 31913-2] Goal Plan of Care Note [code = 95142-8] Goal Plan of Care Note [code = 60931-1] Goal Plan of Care Note [code = 94550-0] Goal Plan of Care Note [code = 17465-8] Goal Plan of Care Note [code = 54882-0] Goal Plan of Care Note [code = 94324-0] Goal Plan of Care Note [code = 61644-9] Goal Plan of Care Note [code = 86350-4] Goal Plan of Care Note [code = 34620-0] Goal Plan of Care Note [code = 52225-9] Goal Plan of Care Note [code = 23818-2] Goal Plan of Care Note [code = 63217-2] Goal Plan of Care Note [code = 55495-1] Goal Plan of Care Note [code = 09221-5] Goal Plan of Care Note [code = 10714-3] Goal Plan of Care Note [code = 48518-5] Goal Plan of Care Note [code = 81212-4] Goal Plan of Care Note [code = 67306-4] Goal Plan of Care Note [code = 24474-2] Goal Plan of Care Note [code = 41648-6] Goal Plan of Care Note [code = 51877-4] Goal Plan of Care Note [code = 27202-5] Goal Plan of Care Note [code = 70663-9] Goal Plan of Care Note [code = 91425-9] Goal Plan of Care Note [code = 55841-5] Goal Plan of Care Note [code = 96253-4] Goal Plan of Care Note [code = 93263-3] Goal Plan of Care Note [code = 88596-7] Goal Plan of Care Note [code = 56588-0] Goal Plan of Care Note [code = 70062-8] Goal Plan of Care Note [code = 79420-2] Goal Plan of Care Note [code = 52857-3] Goal Plan of Care Note [code = 94876-1] Goal Plan of Care Note [code = 32283-2] Goal Plan of Care Note [code = 25635-2] Goal Plan of Care Note [code = 92177-3] Goal Plan of Care Note [code = 62275-6] Goal Plan of Care Note [code = 99431-3] Goal Plan of Care Note [code = 56540-3] Goal Plan of Care Note [code = 72838-0] Goal Plan of Care Note [code = 50086-1] Goal Plan of Care Note [code = 56119-7] Goal Plan of Care Note [code = 61248-3] Goal Plan of Care Note [code = 72227-7] Goal Plan of Care Note [code = 08943-4] Goal Plan of Care Note [code = 30666-7] Goal Plan of Care Note [code = 38050-8] Goal Plan of Care Note [code = 86772-9] Goal Plan of Care Note [code = 58934-7] Goal Plan of Care Note [code = 04291-5] Goal Plan of Care Note [code = 25387-8] Goal Plan of Care Note [code = 39094-6] Goal Plan of Care Note [code = 40266-2] Goal Plan of Care Note [code = 00299-5] Goal Plan of Care Note [code = 12267-9] Goal Plan of Care Note [code = 36940-1] Goal Plan of Care Note [code = 57357-3] Goal Plan of Care Note [code = 36146-3] Goal Plan of Care Note [code = 14439-3] Goal Plan of Care Note [code = 01936-8] Goal Plan of Care Note [code = 66113-4] Goal Plan of Care Note [code = 97213-2] Goal Plan of Care Note [code = 07587-2] Goal Plan of Care Note [code = 71407-8] Goal Plan of Care Note [code = 18293-6] Goal Plan of Care Note [code = 27651-3] Goal Plan of Care Note [code = 06693-3] Goal Plan of Care Note [code = 07542-1] Goal Plan of Care Note [code = 59279-0] Goal Plan of Care Note [code = 81756-1] Goal Plan of Care Note [code = 91500-3] Goal Plan of Care Note [code = 76156-2] Goal Plan of Care Note [code = 69492-2] Goal Plan of Care Note [code = 79544-5] Goal Plan of Care Note [code = 77530-2] Goal Plan of Care Note [code = 35007-4] Goal Plan of Care Note [code = 77985-3] Goal Plan of Care Note [code = 19993-2] Goal Plan of Care Note [code = 34237-5] Goal Plan of Care Note [code = 34911-0] Goal Plan of Care Note [code = 44476-7] Goal Plan of Care Note [code = 86745-4] Goal Plan of Care Note [code = 82445-7] Goal Plan of Care Note [code = 99404-8] Goal Plan of Care Note [code = 64019-3] Goal Plan of Care Note [code = 92279-5] Goal Plan of Care Note [code = 15714-5] Goal Plan of Care Note [code = 21300-1] Goal Plan of Care Note [code = 97313-7] Goal Plan of Care Note [code = 27895-1] Goal Plan of Care Note [code = 76312-9] Goal Plan of Care Note [code = 37668-8] Goal Plan of Care Note [code = 92403-1] Goal Plan of Care Note [code = 51274-9] Goal Plan of Care Note [code = 64841-1] Goal Plan of Care Note [code = 99642-0] Goal Plan of Care Note [code = 69125-0] Goal Plan of Care Note [code = 23585-1] Goal Plan of Care Note [code = 68384-4] Goal Plan of Care Note [code = 46946-0] Goal Plan of Care Note [code = 82340-9] Goal Plan of Care Note [code = 40436-4] Goal Plan of Care Note [code = 10743-6] Goal Plan of Care Note [code = 95725-4] Goal Plan of Care Note [code = 44067-2] Goal Plan of Care Note [code = 52071-7] Goal Plan of Care Note [code = 38642-0] Goal Plan of Care Note [code = 75338-7] Goal Plan of Care Note [code = 96144-7] Goal Plan of Care Note [code = 48336-0] Goal Plan of Care Note [code = 51557-3] Goal Plan of Care Note [code = 71362-8] Goal Plan of Care Note [code = 80008-3] Goal Plan of Care Note [code = 86859-2] Goal Plan of Care Note [code = 75618-4] Goal Plan of Care Note [code = 04663-9] Goal Plan of Care Note [code = 36571-8] Goal Plan of Care Note [code = 59369-0] Goal Plan of Care Note [code = 26176-6] Goal Plan of Care Note [code = 38982-7] Goal Plan of Care Note [code = 05439-2] Goal Plan of Care Note [code = 15012-7] Goal Plan of Care Note [code = 97636-7] Goal Plan of Care Note [code = 91196-2] Goal Plan of Care Note [code = 22886-2] Goal Plan of Care Note [code = 36351-3] Goal Plan of Care Note [code = 49860-7] Goal Plan of Care Note [code = 90300-9] Goal Plan of Care Note [code = 38057-2] Goal Plan of Care Note [code = 40597-6] Goal Plan of Care Note [code = 57695-3] Goal Plan of Care Note [code = 95079-1] Goal Plan of Care Note [code = 15784-4] Goal Plan of Care Note [code = 79864-9] Goal Plan of Care Note [code = 26756-5] Goal Plan of Care Note [code = 41958-7] Goal Plan of Care Note [code = 06212-4] Goal Plan of Care Note [code = 91937-1] Goal Plan of Care Note [code = 59989-1] Goal Plan of Care Note [code = 68238-3] Goal Plan of Care Note [code = 55652-1] Goal Plan of Care Note [code = 63427-9] Goal Plan of Care Note [code = 57155-3] Goal Plan of Care Note [code = 17647-8] Goal Plan of Care Note [code = 53459-2] Goal Plan of Care Note [code = 44499-2] Goal Plan of Care Note [code = 88515-6] Goal Plan of Care Note [code = 47435-1] Goal Plan of Care Note [code = 33520-9] Goal Plan of Care Note [code = 55813-3] Goal Plan of Care Note [code = 18695-1] Goal Plan of Care Note [code = 64150-2] Goal Plan of Care Note [code = 22870-1] Goal Plan of Care Note [code = 14104-9] Goal Plan of Care Note [code = 51458-2] Goal Plan of Care Note [code = 72254-0] Goal Plan of Care Note [code = 98895-2] Goal Plan of Care Note [code = 14945-7] Goal Plan of Care Note [code = 76010-8] Goal Plan of Care Note [code = 26881-9] Goal Plan of Care Note [code = 50982-7] Goal Plan of Care Note [code = 76649-5] Goal Plan of Care Note [code = 26113-1] Goal Plan of Care Note [code = 07744-3] Goal Plan of Care Note [code = 52602-2] Goal Plan of Care Note [code = 27145-6] Goal Plan of Care Note [code = 42418-9] Goal Plan of Care Note [code = 43966-0] Goal Plan of Care Note [code = 01770-1] Goal Plan of Care Note [code = 80181-6] Goal Plan of Care Note [code = 00297-8] Goal Plan of Care Note [code = 94853-5] Goal Plan of Care Note [code = 46527-2] Goal Plan of Care Note [code = 88232-2] Goal Plan of Care Note [code = 01385-5] Goal Plan of Care Note [code = 90936-4] Goal Plan of Care Note [code = 08640-7] Goal Plan of Care Note [code = 46896-3] Goal Plan of Care Note [code = 42215-6] Goal Plan of Care Note [code = 95172-8] Goal Plan of Care Note [code = 60465-9] Goal Plan of Care Note [code = 74777-4] Goal Plan of Care Note [code = 01370-4] Goal Plan of Care Note [code = 84671-8] Goal Plan of Care Note [code = 49183-8] Goal Plan of Care Note [code = 56542-1] Goal Plan of Care Note [code = 89257-7] Goal Plan of Care Note [code = 23368-9] Goal Plan of Care Note [code = 27521-3] Goal Plan of Care Note [code = 70345-4] Goal Plan of Care Note [code = 30676-3] Goal Plan of Care Note [code = 70014-7] Goal Plan of Care Note [code = 47757-2] Goal Plan of Care Note [code = 76682-2] Goal Plan of Care Note [code = 11556-2] Goal Plan of Care Note [code = 68599-7] Goal Plan of Care Note [code = 95577-6] Goal Plan of Care Note [code = 98990-6] Goal Plan of Care Note [code = 05646-2] Goal Plan of Care Note [code = 84938-8] Goal Plan of Care Note [code = 60263-8] Goal Plan of Care Note [code = 54287-8] Goal Plan of Care Note [code = 63894-7] Goal Plan of Care Note [code = 24626-2] Goal Plan of Care Note [code = 96070-2] Goal Plan of Care Note [code = 38833-1] Goal Plan of Care Note [code = 39875-6] Goal Plan of Care Note [code = 80569-9] Goal Plan of Care Note [code = 41638-2] Goal Plan of Care Note [code = 33080-4] Goal Plan of Care Note [code = 19259-3] Goal Plan of Care Note [code = 25726-4] Goal Plan of Care Note [code = 41014-4] Goal Plan of Care Note [code = 44168-5] Goal Plan of Care Note [code = 33718-0] Goal Plan of Care Note [code = 49498-5] Goal Plan of Care Note [code = 58454-3] Goal Plan of Care Note [code = 30132-8] Goal Plan of Care Note [code = 58335-1] Goal Plan of Care Note [code = 27798-3] Goal Plan of Care Note [code = 08151-1] Goal Plan of Care Note [code = 84653-1] Goal Plan of Care Note [code = 30099-5] Goal Plan of Care Note [code = 56821-7] Goal Plan of Care Note [code = 30320-0] Goal Plan of Care Note [code = 82752-2] Goal Plan of Care Note [code = 44113-2] Goal Plan of Care Note [code = 87628-2] Goal Plan of Care Note [code = 64720-9] Goal Plan of Care Note [code = 67383-2] Goal Plan of Care Note [code = 79910-2] Goal Plan of Care Note [code = 39168-3] Goal Plan of Care Note [code = 44655-2] Goal Plan of Care Note [code = 61993-9] Goal Plan of Care Note [code = 68820-8] Goal Plan of Care Note [code = 52281-6] Goal Plan of Care Note [code = 66403-3] Goal Plan of Care Note [code = 03340-2] Goal Plan of Care Note [code = 97203-3] Goal Plan of Care Note [code = 81963-4] Goal Plan of Care Note [code = 03423-8] Goal Plan of Care Note [code = 04833-3] Goal Plan of Care Note [code = 99079-6] Goal Plan of Care Note [code = 06255-5] Goal Plan of Care Note [code = 96865-2] Goal Plan of Care Note [code = 08283-0] Goal Plan of Care Note [code = 05532-9] Goal Plan of Care Note [code = 34750-7] Goal Plan of Care Note [code = 98197-1] Goal Plan of Care Note [code = 10535-3] Goal Plan of Care Note [code = 16568-5] Goal Plan of Care Note [code = 50255-0] Goal Plan of Care Note [code = 56423-4] Goal Plan of Care Note [code = 73704-2] Goal Plan of Care Note [code = 94764-5] Goal Plan of Care Note [code = 56632-9] Goal Plan of Care Note [code = 47680-0] Goal Plan of Care Note [code = 60445-0] Goal Plan of Care Note [code = 34572-4] Goal Plan of Care Note [code = 76874-2] Goal Plan of Care Note [code = 00113-3] Goal Plan of Care Note [code = 14001-2] Goal Plan of Care Note [code = 83097-6] Encounters Start End Encounter Admission Attending Care Care Encounter Source Date/Time Date/Time Type Type Clinicians Facility Department ID 2023-02-28 Outpatient Muñiz, STLMLC STLMLC [id number] Common 10:19:[address] [facility] 2022-09-12 Outpatient Stanford, Na STLMLC STLMLC [id number] 2 Common 09:27:00 [facility] 2022-09-01 Outpatient Stanford, Na STLMLC STLMLC [id number] 2 Common 15:16:00 [facility] 2022-04-11 Outpatient [place], Na STLMLC STLMLC [id number] 2 Common 12:56:00 [facility] 2021-10-27 Outpatient Stanford, Na STLMLC STLMLC [id number] 2 Common 14:22:[id number] [facility] 2021-10-27 Outpatient STLMLC STLMLC [id number] Common 13:44:[address] [facility] 2021-10-27 Outpatient Hector, STLMLC STLMLC [id number] Common 12:14:[address] [facility] 2021-10-27 Outpatient Hector, STLMLC STLMLC [id number] Common 12:00:[address] [facility] 2021-10-27 Outpatient Zhang [facility] [id number]- Common 11:50:[address] [facility] 2021-10-27 Outpatient Zhang [facility] [id number]- Common 11:48:[address] [facility] 2021-10-[address] [facility] [id number]- Common 11:31:[address] [facility] 2021-10-[address] [facility] [id number]- Common 11:31:[address] [facility] 2023-03-30 2023-03-30 [facility] [id number] Univers 00:00:00 00:00:00 SENDIL yael [facility] 2023-03-22 2023-03-22 [facility] [id number] Univers 00:00:00 00:00:00 SENDIL [facility] 2023-02-14 2023-02-14 Orders Doctor DYLAN 1.2.840.114 [id number] Univers 00:00:00 00:00:00 Only Unassigned, MORGAN 350.1.13.10 ity of [place] [facility] 4.2.7.2.686 Miguel as [phone] [address] 2023-02-10 2023-02-10 Outpatient Ursula HICKEY [facility] [id number] Univers 00:00:00 00:00:00 COLIN eber [facility] 2023-02-06 2023-02-06 [facility] 1.2.840.114 [id number] Univers 09:00:00 09:28:18 Visit Archana EDWARDS 350.1.13.10 ity [facility] [place] [phone] [place] dic[address] 2023-02-06 2023-02-06 Out[facility] [id number] Univers 09:00:00 09:28:18 SENDIL ity [facility] 2023-02-01 2023-02-01 [address] Ovalle [facility] 1.2.840.114 10 [id number] Univers 00:00:00 00:00:00 Florentino EDWARDS 350.1.13.10 i ty of [place] [id number] Tx dical NAL 134 [facility] 2023-01-26 2023-01-26 Office [facility] 1.2.840.114 10 [id number] Univers 13:45:00 15:07:58 Visit , Ac [place] 350.1.13.10 it[place] [phone] Tx quitaave CONRAD 198 [facility] 2023-01-26 2023-01-26 [facility] [id number] Univers 13:45:00 15:07:58 , [facility] 2023-01-26 2023-01-26 [facility] 1.2.282.561 [id number] Univers 00:00:00 00:00:00 Archana EDWARDS 350.1.13.10 ity of [place] [phone] Tx dicave NICOLE 059 [facility] 2023-01-26 2023-01-26 Case Ovalle Andrew [facility] 1.2.579.157 [id number] 09726 Univers 00:00:00 00:00:00 Management Florentino EDWARDS 350.1.13.10 ity of [place] [phone] Tx dical NAL 134 [facility] 2023-01-26 2023-01-26 Telephone [facility] 1.2.003.543 [id number] Univers 00:00:00 00:00:00 Sendfavio EDWARDS 350.1.13.10 ity of [place] [id number] Tx dical NAL 059 [facility] 2023-01-25 2023-01-25 Department Clerk 2, Adc Lab [facility] 1.2.840.114 [id number] Univers 15:30:00 15:45:00 Visit Andrew Ovalle 350.1.13.10 ity of [facility] 4.2.7.2.[place] [id number] Tx dical NAL 353 [facility] 2023-01-25 2023-01-25 Office Andrew Ovalle [facility] 1.2.533.795 [id number] [id number] Univers 15:00:00 15:00:00 Visit Florentino EDWARDS 350.1.13.10 i ty of [facility] 4.2.7.2.[place] [phone] Tx dical NAL 134 [facility] 2023-01-25 2023-01-25 Outpatient R ANDREW OVALLE [facility] [id number] Univers 15:00:00 14:56:59 ity of [facility] 2023-01-23 2023-01-23 Office [facility] 1.2.840.114 10 [id number] Univers 10:10:00 10:20:00 Visit Lalo SPECIALTY 350.1.13.10 it[place] [phone] Tx arlyn CONRAD 198 [facility] 2023-01-23 2023-01-23 Outpatient R NICOLASA [facility] 913 [id number] Univers 10:10:00 10:10:00 LALO ity of [facility] 2023-01-23 2023-01-23 Patient Andrew Ovalle [facility] 1.2.647.899 [id number] [id number] Univers 00:00:00 00:00:00 Secure Msg Florentino EDWARDS 350.1.13.10 ity of [facility] 4.2.7.2.[place] [phone] Tx dical NAL 134 [facility] 2023-01-16 2023-01-16 Outpatient R ANDREW OVALLE [facility] [id number] Univers 14:30:00 14:30:00 ity of [facility] 2023-01-12 2023-01-12 Outpatient R VASQUEZ ANDREW [facility] [id number] Univers 15:00:00 15:31:18 ity of [facility] 2023-01-12 2023-01-12 Office Andrew Ovalle [facility] 1.2.578.228 [id number] [id number] Univers 15:00:00 15:31:18 Visit Florentino EDWARDS 350.1.13.10 i ty of [facility] 4.2.7.2.[place] [phone] Tx dical NAL 134 [facility] 2023-01-10 2023-01-10 Orders Doctor DYLAN 1.2.840.114 [id number] Univers 00:00:00 00:00:00 Only Unassigned, MORGAN 350.1.13.10 ity of [place] [facility] 4.2.7.2.686 Miguel as [phone] [facility] [address] [place] 2023-01-02 2023-01-[address] [facility] 1.2.840.114 10 [id number] Univers 00:00:00 00:00:00 Secure Msg , Ac SPECIALTY 350.1.13.10 it[place] [phone] Tx arlyn VICTOREber 198 [facility] 2022-12-29 2022-12-29 Outpatient R EDELMIRA [facility] [id number] Univers 00:00:00 00:00:00 COLIN iteber [facility] 2022-12-27 2022-12-27 Outpatient R TERESA ACEVEDO [facility] [id number] Univers 15:00:00 15:00:00 TERESA ACEVEDO iteber [facility] 2022-12-27 2022-12-27 Surgery Andrew Ovalle [facility] 1.2.450.319 [id number] Univers 07:50:00 10:40:00 Cam ANGLERICO 350.1.13.10 i ty [place] [id number] [address] 2022-12-27 2022-12-27 Hospital Pato Ovalleen [facility] 1.2.840.114 101 [id number] Univers 07:13:00 10:35:00 Encounter Cam ANGLERICO 350.1.13.10 ity of [facility] 4.2.7.2.[place] [id number] Med [facility] [address] [place] 2022-12-27 2022-12-27 Outpatient R ANDREW OVALLE [facility] [employer] [id number] Univers 07:13:00 10:35:00 ity of [facility] 2022-12-27 2022-12-27 Orders Doctor DYLAN 1.2.840.114 [id number] Univers 00:00:00 00:00:00 Only Unassigned, MORGAN 350.1.13.10 ity of [place] [facility] 4.2.7.2.686 Miguel as [phone] [address] 2022-12-26 2022-12-26 Outpatient R ANDREW OVALLE [facility] [id number] Univers 09:15:00 09:15:00 ity of [facility] 2022-12-21 2022-12-21 Telephone nAdrew Ovalle [facility] 1.2.840.114 10 [id number] Univers 00:00:00 00:00:00 Cam GRACE 350.1.13.10 i ty of [facility] 4.2.7.2.[place] [id number] Me dical NAL 134 [facility] 2022-12-21 2022-12-21 Patient [facility] 1.2.840.114 10 [id number] Univers 00:00:00 00:00:00 Secure Msg , Ac SPECIALTY 350.1.13.10 it[place] 111.8475917 Me dical VICTORY 198 [facility] 2022-12-16 2022-12-16 Telephone [facility] 1.2.840.114 [id number] Univers 00:00:00 00:00:00 , Ac SPECIALTY 350.1.13.10 it[place] [phone] Me dical VICTORY 198 [facility] 2022-12-15 2022-12-15 Outpatient R [facility] [id number] Univers 14:45:00 15:54:11 , AC ity of [facility] 2022-12-15 2022-12-15 [facility] 1.2.840.114 10 [id number] Univers 14:45:00 15:54:11 Visit , Ac SPECIALTY 350.1.13.10 it[place].2.[place] [phone] Tx dical VICTORY 198 [facility] 2022-12-15 2022-12-15 Orders Doctor DYLAN 1.2.840.114 [id number] Univers 00:00:00 00:00:00 Only Unassigned, MORGAN 350.1.13.10 ity of [place] [facility] 4.2.7.2.686 Miguel as [phone] [facility] [address] [place] 2022-12-12 2022-12-12 Patient Vasquez [facility] 1.2.053.586 [id number] Univers 00:00:00 00:00:00 Secure Msg Florentino EDWARDS 350.1.13.10 ity of [place] [phone] Tx dical NAL 134 [facility] 2022-12-06 2022-12-06 Telephone Vasquez [facility] 1.2.840.114 10 [id number] Univers 00:00:00 00:00:00 Cam GRACE 350.1.13.10 i ty of [place]2.[place].2.[place] [id number] [facility] [address] [place] 2022-12-06 2022-12-[address] [facility] 1.2.840.114 [id number] Univers 00:00:00 00:00:00 Secure Msg Archana EDWARDS 350.1.13.10 ity of [place] 504.3892937 Tx dical NAL 059 [facility] 2022-12-05 2022-12-05 Outpatient R VASQUEZ ANDREW [facility] [id number] Univers 10:06:40 23:59:00 ity of [facility] 2022-12-05 2022-12-05 Hospital Andrew Ovalle [facility] 1.2.840.114 101 [id number] Univers 10:06:40 23:59:00 Encounter Florentino EDWARDS 350.1.13.10 ity of [place]2.7.2.[place] [id number] [facility] [address] [place] 2022-12-05 2022-12-05 Department Clerk 2, Adc Lab [facility] 1.2.840.114 [id number] Univers 09:45:00 10:00:00 Visit Andrew Ovalle GRACE 350.1.13.10 ity of [place].7.2.[place] [id number] Tx dical NAL 353 [facility] 2022-12-05 2022-12-05 Orders Doctor DYLAN 1.2.840.114 [id number] Univers 00:00:00 00:00:00 Only Unassigned, MORGAN 350.1.13.10 ity of [place] [facility] 4.2.7.2.686 Miguel as [phone] [facility] [address] [place] 2022-12-02 2022-12-02 Outpatient R PEBBLES [facility] [id number] Univers 09:00:00 09:33:56 SENDIL ity of [facility] 2022-12-02 2022-12-02 [facility] 1.2.840.114 [id number] Univers 09:00:00 09:33:56 Visit Archana EDWARDS 350.1.13.10 ity of [place] 661.4680229 Tx dical NAL 059 [facility] 2022-12-02 2022-12-[address] [facility] 1.2.273.081 [id number] Univers 00:00:00 00:00:00 Archana EDWARDS 350.1.13.10 ity of [place] [id number] Tx dical NAL 059 [facility] 2022-12-02 2022-12-[address] [facility] 1.2.987.420 9197 [id number] Univers 00:00:00 00:00:00 Sendil Joel EDWARDS 350.1.13.10 ity of [place] [id number] Tx dical NAL 059 [facility] 2022-12-02 2022-12-02 Orders Doctor RICHARDSON 1.2.840.114 [id number] Univers 00:00:00 00:00:00 Only Unassigned, MORGAN 350.1.13.10 ity of [place] [facility] 4.2.7.2.686 Miguel as [id number] [facility] [address] [place] 2022-12-01 2022-12-01 Orders Doctor DYLAN 1.2.840.114 [id number] Univers 00:00:00 00:00:00 Only Unassigned, MORGAN 350.1.13.10 ity of [place] [facility] 4.2.7.2.686 Miguel as [id number] [address] 2022-11-30 2022-11-30 Outpatient R NARCISA [facility] 1044 [id number] Univers 15:10:11 23:59:00 GLORY ity of [facility] 2022-11-30 2022-11-30 [facility] 1.2.840.114 10 [id number] Univers 15:10:11 23:59:00 Encounter Glory EDWARDS 350.1.13.10 ity of [place] [id number] [facility] [address] [place] 2022-11-29 2022-11-29 Outpatient R ANDREW OVALLE [facility] 53438 [id number] Univers 09:30:00 15:07:47 ity of [facility] 2022-11-29 2022-11-29 Office Andrew Ovalle [facility] 1.2.068.721 [id number] [id number] Univers 09:30:00 15:07:47 Visit Florentino EDWARDS 350.1.13.10 i ty of [facility] 4.2.7.2.[place] 107.5660177 Tx dical NAL 134 [facility] 2022-11-29 2022-11-29 Patient [facility] 1.2.840.114 [id number] Univers 00:00:00 00:00:00 Secure Msg Catrachita EWDARDS 350.1.13.10 ity of [facility] 4.2.7.2.[place] 916.4190270 Tx dical NAL 134 [facility] 2022-11-29 2022-11-29 Prep For Andrew Ovalle [facility] 1.2.840.114 101 [id number] Univers 00:00:00 00:00:00 Surgery Florentino EDWARDS 350.1.13.10 i ty [place] 647.8831542 Tx dical NAL [address] [place] [address] 2022-11-24 2022-11-24 Outpatient R ANDREW OVALLE [facility] 56805 [id number] Univers 13:30:00 14:01:38 ity [facility] 2022-11-24 2022-11-24 Office Andrew Ovalle [facility] 1.2.706.182 3838 [id number] Univers 13:30:00 14:01:38 Visit Florentino EDWARDS 350.1.13.10 i ty of [facility] 4.2.7.2.[place] 539.3441974 Tx dicaz NAL [address] [place] [address] 2022-11-22 2022-11-22 Hospital [facility] 1.2.840.114 10 [id number] Univers 11:24:38 23:59:00 Encounter Glory SPECIALTY 350.1.13.10 it[place] 791.1246603 Tx arlyn CONRAD 809 [facility] 2022-11-22 2022-11-22 [facility] [id number] Univers 11:20:00 12:01:04 GLORY ity [facility] 2022-11-22 2022-11-22 Office [facility] 1.2.840.114 100 [id number] Univers 11:20:00 11:40:00 Visit Glory SPECIALTY 350.1.13.10 it[place] 174.6362330 Tx arlyn CONRAD 198 [facility] 2022-11-16 2022-11-16 Office HowardFormerly [facility] 1.2.619.615 [id number] [id number] Univers 10:45:00 11:15:00 Visit Colin EDWARDS 350.1.13.10 i ty fabio JOYAMISHA [place] 155.6465945 Tx arlyn NICOLE 134 [facility] 2022-11-16 2022-11-16 Outpatient [facility] [id number] Univers 10:45:00 10:45:00 COLIN ity [facility] 2022-11-14 2022-11-14 [facility] 1.2.840.114 1 [id number] Univers 10:00:00 23:59:00 Encounter Lalo SPECIALTY 350.1.13.10 it[place] 037.4312507 Tx quitaave [place] 809 [facility] 2022-11-14 2022-11-14 Department Clerk Lab, Ang - Db [facility] 1.2.840.1 14 [id number] Univers 13:15:00 13:30:00 Visit Edelmira Colin [facility] 350.1.13.10 iteber [facility] 4.2.7.2.686 Miguel as KENNEDY?BLEA 580.6693110 Tx arlyn KIM 353 [facility] OFFICE [facility] 2022-11-14 2022-11-14 [facility]patient [facility] 979 [id number] Univers 10:10:00 10:27:15 LALO ity of [facility] 2022-11-14 2022-11-14 Office [facility] 1.2.840.114 10 [id number] Univers 10:10:00 10:27:15 Visit Lalo SPECIALTY 350.1.13.10 it[place] 088.2820186 Tx arlyn CONRAD 198 [facility] 2022-11-14 2022-11-14 [facility] 1.2.840.114 1 [id number] Univers 09:59:51 09:59:51 Encounter Lalo SPECIALTY 350.1.13.10 it[place] 067.0246962 Tx arlyn CONRAD 809 [facility] 2022-11-08 2022-11-08 Orders Doctor DYLAN 1.2.840.114 [id number] Univers 00:00:00 00:00:00 Only Unassigned, MORGAN 350.1.13.10 ity of [place] [facility] 4.2.7.2.686 Miguel as [id number] [facility] [address] 2022-11-04 2022-11-[address] [facility] 1.2.097.852 9374 [id number] Univers 00:00:00 00:00:00 Secure Msg Colin EDWARDS 350.1.13.10 ity of [facility] 4.2.7.2.[place] 281.3519964 Tx quitaave [facility] [address] BU[address]ING 2022-11-01 2022-11-01 Department Clerk Lab, Scott - Jose [facility] 1.2.840.1 14 [id number] Univers 11:30:00 11:45:00 Visit Colin Hickey [facility] 350.1.13.10 ity of [facility] 4.2.7.2.686 Miguel as KENNEDY?BLEA 956.8912184 Tx arlyn KIM [address] [place] MEDICAL OFFICE BUILDING 2022-11-01 2022-11-01 Outpatient R EDELMIRA [facility] [id number] Univers 11:30:00 11:30:00 COLIN ity of [facility] 2022-11-01 2022-11-01 Case DAVID Hickey 1.2.814.336 [id number] [id number] Univers 00:00:00 00:00:00 Management Colin PEDIATRIC 350.1.13.10 [place] [id number] [facility] PRIMARY [address] CARE CLINIC 2022-10-31 2022-10-31 Department Clerk 2, Adc Lab [facility] [id number] Univers 11:45:00 12:00:00 Visit Andrew Ovalle 350.1.13.10 it[place] [phone] [place] dical NAL 353 [facility] 2022-10-31 2022-10-31 Outpatient R PATO [facility] [id number] Univers 10:00:00 11:21:47 ity of [facility] 2022-10-31 2022-10-31 Office Colin Hickey [facility] [id number] [id number] Univers 10:00:00 11:21:47 Visit Andrew Ovalle 350.1.13.10 ity [facility] [place] [phone] [place]ical NAL 134 [facility] 2022-10-27 2022-10-27 Orders Doctor DYLAN [id number] [id number] Univers 00:00:00 00:00:00 Only Unassigned, MORGAN 350.1.13.10 ity of [facility] 4.2.7.2.686 Miguel as [phone] [address] 2022-10-27 2022-10-27 (TEL) STLMLC STLMLC [id number] Co mmon 00:00:00 00:00:00 [facility] 2022-10-26 2022-10-26 OFFICE STLMLC STLMLC [id number] Co mmon 00:00:00 00:00:00 VISIT EST Spir it PT LEVEL 3 [facility] 2022-10-14 2022-10-14 (TEL) STLMLC STLMLC [id number] Co mmon 00:00:00 00:00:00 [facility] 2022-10-05 2022-10-05 OFFICE STLMLC STLMLC [id number] Co mmon 00:00:00 00:00:00 VISIT EST Spir it PT LEVEL 3 - [facility] 2022-10-04 2022-10-04 Outpatient SFA HAVEN [id number] Augusto 10:05:21 10:05:21 0103 F Kaushik 2022-10-04 2022-10-04 Outpatient [id number] 00:00:00 00:00:00 Visit 39aa-4be2 9aa-4be2-b -k40g-9x1 80b-3e075c 41kw4e76q f9a68c 2022-09-28 2022-09-28 Outpatient SFA SFA [id number] August[place] 08:46:59 08:46:59 1228 F Kaushik 2022-09-28 2022-09-28 Outpatient [id number]- [id number] fa [id number] 00:00:00 00:00:00 Visit i4k4-0o10 4q9-1z62-g -c7m8-8xt 9g8-5ho617 [id number] fnr165 2022-09-18 2022-09-18 Outpatient SFA SFA [id number] [place] 10:59:17 10:59:17 1218 F Kaushik 2022-09-18 2022-09-18 Outpatient [id number]- [id number] y33gj4-r 00:00:00 00:00:00 Visit p12h-66e2 97d-43d3-a -qa9w-42v m9f-28i221 [id number] [id number] 2022-09-15 2022-09-15 Outpatient SFA SFA [id number] [place] 13:46:23 13:46:23 1215 F Kaushik 2022-09-15 2022-09-15 OFFICE STLMLC STLMLC [id number] Co mmon 00:00:00 00:00:00 VISIT NEW Spir it PT LEVEL 3 - [facility] 2022-09-15 2022-09-15 Outpatient [id number]- [id number] 00:00:00 00:00:00 Visit 12fe-4247 2fe-4247-9 -93ff-29f 3ff-29f10e [id number] r7163g 2022-09-05 2022-09-05 PREV VISIT STLMLC STLMLC [id number] Common 00:00:00 00:00:00 EST AGE Spirit 40-64 - [facility] 2022-07-13 2022-07-13 Outpatient SFA SFA [id number] Augusto 17:17:07 17:17:07 1012 F Kaushik 2022-07-13 2022-07-13 Outpatient [id number]- [id number] 00:00:00 00:00:00 Visit 2q67-8792 i93-0724-4 -02q6-yt1 7u2-wi4566 [id number] 653d6b 2022-06-21 2022-06-21 Outpatient [id number]- [id number] 00:00:00 00:00:00 Visit 07o4-562e 8f5-182z-0 -8800-e5b 800-e5bc2a g7t9b5ix8 3a1ae7 2022-06-13 2022-06-13 Outpatient [id number] 00:00:00 00:00:00 Visit 31d8-7t05 3z7-3k67-2 -844a-346 44a-3462aa 7sm474tx1 333fb4 2022-06-10 2022-06-10 Outpatient [id number]- [id number] 00:00:00 00:00:00 Visit xv6q-188e i0x-271p-o -b37a-zlk 30f-baeed1 af70d2bzk 3c2cfd 2022-06-07 2022-06-07 Outpatient [id number]- [id number]-q 00:00:00 00:00:00 Visit o48w-5gu4 14d-4ac1-a -aca5-fb2 ca5-fb2d67 b35u84581 a63017 2022-06-02 2022-06-02 Outpatient [id number] 00:00:00 00:00:00 Visit ks8w-34gc v6h-33ge-9 -9gj3-5zl ec9-5uk221 [id number] 563b9b 2022-05-27 2022-05-27 Laboratory Only, Ang Db Test [facility] 1.2.8 40.114 [id number] [facility] 14:15:00 14:30:00 Only [facility] [id number] ity [facility] 4.2.7.2.686 Miguel as KENNEDY?BLEA [id number] [place] arlyn BROOKS[address] MEDICAL OFFICE BUILDING 2022-05-27 2022-05-27 Outpatient R [facility] [id number] Univers 14:15:00 14:15:00 [id number] [facility] 2022-05-27 2022-05-27 Outpatient R TONY, [facility] [id number] Univers 14:15:00 14:15:00 RADHA [facility] 2022-04-22 2022-04-22 Outpatient [id number]- [id number] 00:00:00 00:00:00 Visit 5555-4f40 555-4f40-a -v04f-784 37d-209fea acl56of0j 58af1b 2021-06-30 2021-06-30 OFFICE STLMLC STLMLC [id number] Co mmon 00:00:00 00:00:00 VISIT EST Spir it PT LEVEL 3 - [facility] 2021-06-05 2021-06-05 (TEL) STLMLC STLMLC [id number] Co mmon 00:00:00 00:00:00 [facility] 2021-05-31 2021-05-31 OFFICE STLMLC STLMLC [id number] Co mmon 00:00:00 00:00:00 VISIT Spirit ESTAB PT - [facility] LEVEL 4 [facility] 2021-01-09 2021-01-09 Outpatient [facility] [id number] Univers 11:55:00 11:55:00 [facility] 2020-12-19 2020-12-19 Outpatient [facility] [id number] Univers 16:25:00 16:25:00 [facility] 2020-11-04 2020-11-04 (TEL) STLMLC STLMLC [id number] Co mmon 00:00:00 00:00:00 [facility] 2020-11-03 2020-11-03 OFFICE STLMLC STLMLC [id number] Co mmon 00:00:00 00:00:00 VISIT EST Spir it PT LEVEL 3 - [facility] 2020-09-24 2020-09-24 (TEL) STLMLC STLMLC [id number] Co mmon 00:00:00 00:00:00 [facility] 2020-09-22 2020-09-22 OFFICE STLMLC STLMLC [id number] Co mmon 00:00:00 00:00:00 VISIT EST Spir it PT LEVEL 3 [facility] 2020-09-22 2020-09-22 (TEL) STLMLC STLMLC [id number] Co mmon 00:00:00 00:00:00 [facility] 2020-09-21 2020-09-21 (TEL) STLMLC STLMLC [id number] Co mmon 00:00:00 00:00:00 [facility] 2020-09-18 2020-09-18 OFFICE STLMLC STLMLC [id number] Co mmon 00:00:00 00:00:00 VISIT EST Spir it PT LEVEL 3 [facility] 2020-04-17 2020-04-17 [facility] [id number] Common 09:20:00 09:20:00 t [facility] [address] [facility] 2020-04-14 2020-04-14 [facility] [id number] Common 14:41:00 14:41:00 t [facility] [address] [facility] 2020-03-20 2020-03-20 [facility] [id number] Common 15:20:00 15:20:00 t [facility] [address] [facility] 2019-12-18 2019-12-18 Out[facility] [id number] Common 09:22:00 09:22:00 t [facility] [address] [facility] 2019-10-07 2019-10-07 [facility] [id number] Common 13:00:00 13:00:[address] [facility] 2019-09-17 2019-09-17 [facility] [id number] Common 10:42:00 10:42:[address] [facility] 2019-09-17 2019-09-17 [facility] [id number] Common 09:30:00 09:30:[address] [facility] 2019-07-24 2019-07-24 [facility] [id number] Common 00:37:00 00:37:[address] [facility] 2019-07-21 2019-07-21 Out[facility] [id number] Common 14:16:00 14:16:[address] [facility] 2019-07-19 2019-07-19 [facility] [id number] Common 12:07:00 12:07:[address] [facility] 2019-07-19 2019-07-19 [facility] [id number] Common 10:40:00 10:40:[address] [facility] 2019-06-10 2019-06-10 [facility] [id number] Common 09:59:00 09:59:00 t [facility] 2019-06-07 2019-06-07 [facility] [id number] Common 16:30:00 16:30:00 [facility] 2018-07-02 2018-07-02 [facility] [id number] Common 10:54:00 10:54:[address] [facility] 2018-06-28 2018-06-28 [facility] [id number] Common 16:51:00 16:51:[address] [facility] 2018-06-13 2018-06-13 [facility] [id number] Common 21:04:00 21:04:[address] [facility] 2018-06-13 2018-06-13 [facility] [id number] Common 11:49:00 11:49:[address] [facility] 2018-06-13 2018-06-13 [facility] [id number] Common 09:00:00 09:00:[address] [facility] 2018-05-14 2018-05-14 [facility] [id number] Common 17:36:00 17:36:[address] [facility] 2018-04-17 2018-04-17 [facility] [id number] Common 16:15:00 16:15:[address] [facility] 2018-04-11 2018-04-11 [facility] [id number] Common 09:07:00 09:07:[address] [facility] 2018-04-09 2018-04-09 [facility] [id number] Common 11:50:00 11:50:[address] [facility] 2018-03-26 2018-03-26 [facility] [id number] Common 21:50:00 21:50:[address] [facility] 2018-03-23 2018-03-23 [facility] [id number] Common 14:00:00 14:00:[address] [facility] 2018-03-14 2018-03-14 [facility] [id number] Common 14:16:00 14:16:[address] [facility] 2018-03-09 2018-03-09 [facility] [id number] Common 14:30:00 14:30:[address] [facility] 2018-01-23 2018-01-23 [facility] 13 [id number] Common 10:00:00 10:00:[address] Spir it [facility] Results Test Description Test Time Test Comments Results Result Comments Source POCT Test 2022-12-27 12:16:00 Test Item Value Reference Range Interpretation Comme nts POCT PREG (test code = 1605) Negative On board controls acceptable with C Line (test code = 3574) Yes POCT PREG LOT # (test code = 3575) [id number] POCT PREG TEST DATE (test code = 3576) 03/01/24 Lab Interpretation (test code = 79152-6) Normal [facility] [id number] 12:16:00 Test Item Value Reference Range Interpretation Comments POCT PREG (test code = 1605) Negative On board controls acceptable with Yes C Line (test code = 3574) POCT PREG LOT # (test code = 3575) [id number] POCT PREG TEST DATE (test 03/01/24 code = 3576) Lab Interpretation (test code = Normal 20119-1) [facility] [id number] 19:46:00 Test Item Value Reference Range Interpretation Comments POCT PREG (test code = 1605) Negative On board controls acceptable with C Yes Line (test code = 3574) POCT PREG LOT # (test code = 3575) POCT PREG TEST DATE (test code = 3576) [facility] [id number] 19:46:00 Test Item Value Reference Range Interpretation Comments POCT PREG (test code = 1605) Negative On board controls acceptable with C Yes Line (test code = 3574) POCT PREG LOT # (test code = 3575) POCT PREG TEST DATE (test code = 3576) [facility] URINALYSIS W/O SPECIFIC [id number] 17:08:00 Test Item Value Reference Range Interpretation Comments POCT PH U (test code = 3254) 7 mg/dl 5-8 POCT U LEUK EST (test code = Negative Negative - Negative 3263) POCT U NIT (test code = 3262) Negative Negative - Negative POCT U PROT (test code = 3259) Negative Negative - Negative POCT U GLU (test code = 3256) Negative Negative - Negative POCT U KETONE (test code = 3258) Negative Negative - Negative POCT U BLD (test code = 3257) Negative Negative - Negative [facility]/O SPECIFIC [id number] 17:08:00 Test Item Value Reference Range Interpretation Comments POCT PH U (test code = 3254) 7 mg/dl 5-8 POCT U LEUK EST (test code = Negative Negative - Negative 3263) POCT U NIT (test code = 3262) Negative Negative - Negative POCT U PROT (test code = 3259) Negative Negative - Negative POCT U GLU (test code = 3256) Negative Negative - Negative POCT U KETONE (test code = 3258) Negative Negative - Negative POCT U BLD (test code = 3257) Negative Negative - Negative [facility], NAAT, [id number] 20:17:25 Test Item Value Reference Range Interpretation Comments GONORRHEA, NAAT NEGATIVE NEGATIVE Note: Testi ng is (test code = 98075) performe d with Steve CECILE 6800/8800 systems using real-time polymerase ankita n reaction (PCR) method. CHLAMYDIA, NAAT NEGATIVE NEGATIVE Note: Testi ng is (test code = 99524) performe d with Steve CECILE 6800/8800 systems using real-andry e polymerase ankita n reaction (PCR) method. VAGINAL PATHOGENS DNA [id number] 15:23:23 Test Item Value Reference Range Interpretation Comments RAMESH SPECIES NEGATIVE NEGATIVE (test code = 67751) G. VAGINALIS NEGATIVE NEGATIVE (test code = ) T. VAGINALIS POSITIVE NEGATIVE A Note: The BD A ffirm VPIII (test code = Microbial Ident ification ) Testis a DNA pr obe test intended for us e in the detectionand id entification of Ramesh spec ies, Gardnerellavagi nalis and Trichomonas vag inalis nucleic acid. U NLESS OTHERWISE INDIC ATED, ALL TESTING PERFORM ED [facility] [address] [place] [id number] LABORATOR Y DIRECTOR: ODILON MARIANO M.D. CLIA NUMBER [id number] CAP ACCREDITATION N O. [id number] HIV 1/2 4TH GEN, RFLX [id number] 05:39:18 Test Item Value Reference Range Interpretation Comments HIV 1/2 4TH GEN, RFLX CONF (test NON-REACTIVE NON-REACTIVE code = 3514) HEPATITIS PANEL, [id number] 05:39:18 Test Item Value Reference Range Interpretation Comments HEPATITIS A IgM (test NON-REACTIVE NON-REACTIVE code = 70756) HEPATITIS B CORE IgM NON-REACTIVE NON-REACTIVE (test code = 4644) HEPATITIS B SURF AG NON-REACTIVE NON-REACTIVE (test code = 2739) HEPATITIS C ANTIBODY NON-REACTIVE NON-REACTIVE (test code = 4675) INTERPRETATION (NOTE) Hepatitis A HEPATITIS A: (test code sero logy shows no = 2552) evidence of acu te hepatitis A. INTERPRETATION (NOTE) Hepatitis B HEPATITIS B: (test code sero logy shows no = 05168) evidence of acu te hepatitis B and no indication of exposure to hepatitis B vir us in the previous daisy eight months. INTERPRETATION (NOTE) Hepatitis C HEPATITIS C: (test code sero logy shows no = 55746) evidence of exposure to hepatitisC viru s at this time. I t can take up to 12 months after exposure tothe hepatitis C vir us for antibodies to become detectab le in the blood in certain patient s. RPR REFLEX TO T. PALLIDUM - [id number] 04:43:57 Test Item Value Reference Range Interpretation Comments RPR (test code = 98837) NON-REACTIVE NON-REACTIVE RPR TITER (test code = 3500) NOT INDIC. TITER NOT INDIC. RPR REFLEX TO T. PALLIDUM - [id number] 00:00:00 Test Item Value Reference Range Interpretation Comments RPR (test code = 42812) NON-REACTIVE RPR TITER (test code = 3500) NOT INDIC. TITER RPR REFLEX TO T. PALLIDUM - [id number] 00:00:00 Test Item Value Reference Range Interpretation Comments RPR (test code = 86824) NON-REACTIVE RPR TITER (test code = 3500) NOT INDIC. TITER HIV AB/AG COMBO RFLX [id number] 00:00:00 Test Item Value Reference Range Interpretation Comments HIV 1/2 4TH GEN, RFLX CONF (test NON-REACTIVE code = 3514) HIV AB/AG COMBO RFLX [id number] 00:00:00 Test Item Value Reference Range Interpretation Comments HIV 1/2 4TH GEN, RFLX CONF (test NON-REACTIVE code = 3514) ACUTE HEPATITIS [id number] 00:00:00 Test Item Value Reference Range Interpretation Comments HEPATITIS A IgM (test code = NON-REACTIVE 86344) HEPATITIS B CORE IgM (test code NON-REACTIVE = 4644) HEPATITIS B SURF AG (test code = NON-REACTIVE 2739) HEPATITIS C ANTIBODY (test code NON-REACTIVE = 4675) INTERPRETATION HEPATITIS A: (NOTE) (test code = 2552) INTERPRETATION HEPATITIS B: (NOTE) (test code = 28462) INTERPRETATION HEPATITIS C: (NOTE) (test code = 11992) ACUTE HEPATITIS [id number] 00:00:00 Test Item Value Reference Range Interpretation Comments HEPATITIS A IgM (test code = NON-REACTIVE 58693) HEPATITIS B CORE IgM (test code NON-REACTIVE = 4644) HEPATITIS B SURF AG (test code = NON-REACTIVE 2739) HEPATITIS C ANTIBODY (test code NON-REACTIVE = 4675) INTERPRETATION HEPATITIS A: (NOTE) (test code = 2552) INTERPRETATION HEPATITIS B: (NOTE) (test code = 64843) INTERPRETATION HEPATITIS C: (NOTE) (test code = 60620) CT/NG, TMA, [id number] 00:00:00 Test Item Value Reference Range Interpretation Comments GONORRHEA, NAAT (test code = 61972) NEGATIVE CHLAMYDIA, NAAT (test code = 03053) NEGATIVE CT/NG, TMA, [id number] 00:00:00 Test Item Value Reference Range Interpretation Comments GONORRHEA, NAAT (test code = 43636) NEGATIVE CHLAMYDIA, NAAT (test code = 88159) NEGATIVE VAGINAL PATHOGENS DNA [id number] 00:00:00 Test Item Value Reference Range Interpretation Comments RAMESH SPECIES (test code = ) NEGATIVE G. VAGINALIS (test code = 47149) NEGATIVE T. VAGINALIS (test code = 75535) POSITIVE VAGINAL PATHOGENS DNA [id number] 00:00:00 Test Item Value Reference Range Interpretation Comments RAMESH SPECIES (test code = ) NEGATIVE G. VAGINALIS (test code = 50564) NEGATIVE T. VAGINALIS (test code = 40940) POSITIVE CULTURE, [id number] 00:00:00 Test Item Value Reference Range Interpretation Comments CULTURE, URINE (test SPECIMEN NUMBER: code = 48759) [id number] CULTURE, [id number] 00:00:00 Test Item Value Reference Range Interpretation Comments CULTURE, URINE (test SPECIMEN NUMBER: code = 21914) [id number] CULTURE, [id number] 00:00:00 Test Item Value Reference Range Interpretation Comments CULTURE, URINE (test SPECIMEN NUMBER: code = 57835) [id number] CULTURE, [id number] 00:00:00 Test Item Value Reference Range Interpretation Comments CULTURE, URINE (test SPECIMEN NUMBER: code = 14804) [id number] CULTURE, [id number] 00:00:00 Test Item Value Reference Range Interpretation Comments CULTURE, URINE (test SPECIMEN NUMBER: code = 49212) [id number] CULTURE, [id number] 00:00:00 Test Item Value Reference Range Interpretation Comments CULTURE, URINE (test SPECIMEN NUMBER: code = 91377) [id number] CULTURE, [id number] 11:18:54SPECIMEN NUMBER: [id number] CULTURE, URINE SPECIMEN NUMBER: [id number] SPECIMEN COMMENT: URINE SOURCE:URINE REPORT STATUS: FINAL FINAL REPORT: 07/16/2022 10-50,000 CFU/ML UROGENITAL OLEKSANDR PRESENT NO COMM ON PATHOGENSCULTURE, [id number] 00:00:00 Test Item Value Reference Range Interpretation Comments CULTURE, URINE (test SPECIMEN NUMBER: code = 49860) [id number] CULTURE, [id number] 00:00:00 Test Item Value Reference Range Interpretation Comments CULTURE, URINE (test SPECIMEN NUMBER: code = 36505) [id number] CULTURE, [id number] 00:00:00 Test Item Value Reference Range Interpretation Comments CULTURE, URINE (test SPECIMEN NUMBER: code = 33890) [id number] CULTURE, [id number] 00:00:00 Test Item Value Reference Range Interpretation Comments CULTURE, URINE (test SPECIMEN NUMBER: code = 53566) [id number] CULTURE, [id number] 00:00:00 Test Item Value Reference Range Interpretation Comments CULTURE, URINE (test SPECIMEN NUMBER: code = 57690) [id number] CULTURE, [id number] 00:00:00 Test Item Value Reference Range Interpretation Comments CULTURE, URINE (test SPECIMEN NUMBER: code = 65693) [id number] CULTURE, [id number] 00:00:00 Test Item Value Reference Range Interpretation Comments CULTURE, URINE (test SPECIMEN NUMBER: code = 32697) [id number] CULTURE, [id number] 00:00:00 Test Item Value Reference Range Interpretation Comments CULTURE, URINE (test SPECIMEN NUMBER: code = 41093) [id number] CT/NG, NAAT, [id number] 19:32:40 Test Item Value Reference Range Interpretation Comments GONORRHEA, NAAT NEGATIVE NEGATIVE IMPORTA NT NOTICE: SEE (test code = [place] [address]) [email or web address] Note: Assay methodology is nucleic acid amplification b y iuss analyst m ediated amplification ( TMA) utilizing the A ptima Combo 2 Assay. CHLAMYDIA, NAAT NEGATIVE NEGATIVE IMPORTA NT NOTICE: SEE (test code = [place] [address]) [email or web address] Note: Assay methodology is nucleic acid amplification b y iuss analyst m ediated amplification ( TMA) utilizing the A ptima Combo 2 Assay. VAGINAL PATHOGENS DNA [id number] 15:57:03 Test Item Value Reference Range Interpretation Comments RAMESH SPECIES (test NEGATIVE NEGATIVE code = 80601) G. VAGINALIS (test POSITIVE NEGATIVE A code = 34853) T. VAGINALIS (test POSITIVE NEGATIVE A UNLESS O THERWISE code = 79117) INDICATED, ALL TESTING PERFORMED [facility]. [address] [place] [address] 4 LABORATORY DIRE CTOR: ODILON MARIANO M.D. CLIA NUMBER [id number] [place] [id number] 04:58:02 Test Item Value Reference Range Interpretation Comments RPR RESULT (test code = NON-REACTIVE NON-REACTIVE 3501) RPR TITER (test code = 3500) NOT INDIC. TITER NOT INDIC. HIV 1/2 4TH GEN, RFLX [id number] 03:09:22 Test Item Value Reference Range Interpretation Comments HIV 1/2 4TH GEN, RFLX CONF (test NON-REACTIVE NON-REACTIVE code = 3514) HEPATITIS PANEL, [id number] 03:09:22 Test Item Value Reference Range Interpretation Comments HEPATITIS A IgM (test NON-REACTIVE NON-REACTIVE code = 67411) HEPATITIS B CORE IgM NON-REACTIVE NON-REACTIVE (test code = 4644) HEPATITIS B SURF AG NON-REACTIVE NON-REACTIVE (test code = 2739) HEPATITIS C ANTIBODY NON-REACTIVE NON-REACTIVE (test code = 4675) INTERPRETATION (NOTE) Hepatitis A HEPATITIS A: (test code sero logy shows no = 2552) evidence of acu te hepatitis A. INTERPRETATION (NOTE) Hepatitis B HEPATITIS B: (test code sero logy shows no = 43212) evidence of acu te hepatitis B and no indication of exposure to hepatitis B vir us in the previous daisy eight months. INTERPRETATION (NOTE) Hepatitis C HEPATITIS C: (test code sero logy shows no = 57358) evidence of exposure to hepatitisC viru s at this time. I t can take up to 12 months after exposure tothe hepatitis C vir us for antibodies to become detectab le in the blood in certain patient s. HIV 1/2 4TH GEN, RFLX [id number] 00:00:00 Test Item Value Reference Range Interpretation Comments HIV 1/2 4TH GEN, RFLX CONF (test NON-REACTIVE code = 3514) HIV 1/2 4TH GEN, RFLX [id number] 00:00:00 Test Item Value Reference Range Interpretation Comments HIV 1/2 4TH GEN, RFLX CONF (test NON-REACTIVE code = 3514) CT/NG, TMA, [id number] 00:00:00 Test Item Value Reference Range Interpretation Comments GONORRHEA, NAAT (test code = 42660) NEGATIVE CHLAMYDIA, NAAT (test code = 46830) NEGATIVE CT/NG, TMA, [id number] 00:00:00 Test Item Value Reference Range Interpretation Comments GONORRHEA, NAAT (test code = 68991) NEGATIVE CHLAMYDIA, NAAT (test code = 38108) NEGATIVE [id number] 00:00:00 Test Item Value Reference Range Interpretation Comments RPR RESULT (test code = NON-REACTIVE 3501) RPR TITER (test code = 3500) NOT INDIC. TITER [id number] 00:00:00 Test Item Value Reference Range Interpretation Comments RPR RESULT (test code = NON-REACTIVE 3501) RPR TITER (test code = 3500) NOT INDIC. TITER [id number] 00:00:00 Test Item Value Reference Range Interpretation Comments RPR RESULT (test code = NON-REACTIVE 3501) RPR TITER (test code = 3500) NOT INDIC. TITER ACUTE HEPATITIS [id number] 00:00:00 Test Item Value Reference Range Interpretation Comments HEPATITIS A IgM (test code = NON-REACTIVE 53701) HEPATITIS B CORE IgM (test code NON-REACTIVE = 4644) HEPATITIS B SURF AG (test code = NON-REACTIVE 2739) HEPATITIS C ANTIBODY (test code NON-REACTIVE = 4675) INTERPRETATION HEPATITIS A: (NOTE) (test code = 2552) INTERPRETATION HEPATITIS B: (NOTE) (test code = 97348) INTERPRETATION HEPATITIS C: (NOTE) (test code = 39206) ACUTE HEPATITIS [id number] 00:00:00 Test Item Value Reference Range Interpretation Comments HEPATITIS A IgM (test code = NON-REACTIVE 57827) HEPATITIS B CORE IgM (test code NON-REACTIVE = 4644) HEPATITIS B SURF AG (test code = NON-REACTIVE 2739) HEPATITIS C ANTIBODY (test code NON-REACTIVE = 4675) INTERPRETATION HEPATITIS A: (NOTE) (test code = 2552) INTERPRETATION HEPATITIS B: (NOTE) (test code = 84495) INTERPRETATION HEPATITIS C: (NOTE) (test code = 20267) VAGINAL PATHOGENS DNA [id number] 00:00:00 Test Item Value Reference Range Interpretation Comments RAMESH SPECIES (test code = ) NEGATIVE G. VAGINALIS (test code = 45880) POSITIVE T. VAGINALIS (test code = 53688) POSITIVE VAGINAL PATHOGENS DNA [id number] 00:00:00 Test Item Value Reference Range Interpretation Comments RAMESH SPECIES (test code = 19815) NEGATIVE G. VAGINALIS (test code = 22257) POSITIVE T. VAGINALIS (test code = 74887) POSITIVE HIV 1/2 4TH GEN, RFLX [id number] 00:00:00 Test Item Value Reference Range Interpretation Comments HIV 1/2 4TH GEN, RFLX CONF (test NON-REACTIVE code = 3514) HIV 1/2 4TH GEN, RFLX [id number] 00:00:00 Test Item Value Reference Range Interpretation Comments HIV 1/2 4TH GEN, RFLX CONF (test NON-REACTIVE code = 3514) CT/NG, TMA, [id number] 00:00:00 Test Item Value Reference Range Interpretation Comments GONORRHEA, NAAT (test code = 39531) NEGATIVE CHLAMYDIA, NAAT (test code = 75652) NEGATIVE CT/NG, TMA, [id number] 00:00:00 Test Item Value Reference Range Interpretation Comments GONORRHEA, NAAT (test code = 46648) NEGATIVE CHLAMYDIA, NAAT (test code = 63358) NEGATIVE [id number] 00:00:00 Test Item Value Reference Range Interpretation Comments RPR RESULT (test code = NON-REACTIVE 3501) RPR TITER (test code = 3500) NOT INDIC. TITER [id number] 00:00:00 Test Item Value Reference Range Interpretation Comments RPR RESULT (test code = NON-REACTIVE 3501) RPR TITER (test code = 3500) NOT INDIC. TITER [id number] 00:00:00 Test Item Value Reference Range Interpretation Comments RPR RESULT (test code = NON-REACTIVE 3501) RPR TITER (test code = 3500) NOT INDIC. TITER ACUTE HEPATITIS [id number] 00:00:00 Test Item Value Reference Range Interpretation Comments HEPATITIS A IgM (test code = NON-REACTIVE 40322) HEPATITIS B CORE IgM (test code NON-REACTIVE = 4644) HEPATITIS B SURF AG (test code = NON-REACTIVE 2739) HEPATITIS C ANTIBODY (test code NON-REACTIVE = 4675) INTERPRETATION HEPATITIS A: (NOTE) (test code = 2552) INTERPRETATION HEPATITIS B: (NOTE) (test code = 87133) INTERPRETATION HEPATITIS C: (NOTE) (test code = 20621) ACUTE HEPATITIS [id number] 00:00:00 Test Item Value Reference Range Interpretation Comments HEPATITIS A IgM (test code = NON-REACTIVE 90859) HEPATITIS B CORE IgM (test code NON-REACTIVE = 4644) HEPATITIS B SURF AG (test code = NON-REACTIVE 2739) HEPATITIS C ANTIBODY (test code NON-REACTIVE = 4675) INTERPRETATION HEPATITIS A: (NOTE) (test code = 2552) INTERPRETATION HEPATITIS B: (NOTE) (test code = 99164) INTERPRETATION HEPATITIS C: (NOTE) (test code = 71543) VAGINAL PATHOGENS DNA [id number] 00:00:00 Test Item Value Reference Range Interpretation Comments RAMESH SPECIES (test code = ) NEGATIVE G. VAGINALIS (test code = ) POSITIVE T. VAGINALIS (test code = ) POSITIVE VAGINAL PATHOGENS DNA [id number] 00:00:00 Test Item Value Reference Range Interpretation Comments RAMESH SPECIES (test code = ) NEGATIVE G. VAGINALIS (test code = ) POSITIVE T. VAGINALIS (test code = ) POSITIVE HIV 1/2 4TH GEN, RFLX [id number] 00:00:00 Test Item Value Reference Range Interpretation Comments HIV 1/2 4TH GEN, RFLX CONF (test NON-REACTIVE code = 3514) HIV 1/2 4TH GEN, RFLX [id number] 00:00:00 Test Item Value Reference Range Interpretation Comments HIV 1/2 4TH GEN, RFLX CONF (test NON-REACTIVE code = 3514) CT/NG, TMA, [id number] 00:00:00 Test Item Value Reference Range Interpretation Comments GONORRHEA, NAAT (test code = 34026) NEGATIVE CHLAMYDIA, NAAT (test code = 79309) NEGATIVE CT/NG, TMA, [id number] 00:00:00 Test Item Value Reference Range Interpretation Comments GONORRHEA, NAAT (test code = 54588) NEGATIVE CHLAMYDIA, NAAT (test code = 40083) NEGATIVE [id number] 00:00:00 Test Item Value Reference Range Interpretation Comments RPR RESULT (test code = NON-REACTIVE 3501) RPR TITER (test code = 3500) NOT INDIC. TITER [id number] 00:00:00 Test Item Value Reference Range Interpretation Comments RPR RESULT (test code = NON-REACTIVE 3501) RPR TITER (test code = 3500) NOT INDIC. TITER [id number] 00:00:00 Test Item Value Reference Range Interpretation Comments RPR RESULT (test code = NON-REACTIVE 3501) RPR TITER (test code = 3500) NOT INDIC. TITER ACUTE HEPATITIS [id number] 00:00:00 Test Item Value Reference Range Interpretation Comments HEPATITIS A IgM (test code = NON-REACTIVE 08334) HEPATITIS B CORE IgM (test code NON-REACTIVE = 4644) HEPATITIS B SURF AG (test code = NON-REACTIVE 2739) HEPATITIS C ANTIBODY (test code NON-REACTIVE = 4675) INTERPRETATION HEPATITIS A: (NOTE) (test code = 2552) INTERPRETATION HEPATITIS B: (NOTE) (test code = 15306) INTERPRETATION HEPATITIS C: (NOTE) (test code = 44080) ACUTE HEPATITIS [id number] 00:00:00 Test Item Value Reference Range Interpretation Comments HEPATITIS A IgM (test code = NON-REACTIVE 90655) HEPATITIS B CORE IgM (test code NON-REACTIVE = 4644) HEPATITIS B SURF AG (test code = NON-REACTIVE 2739) HEPATITIS C ANTIBODY (test code NON-REACTIVE = 4675) INTERPRETATION HEPATITIS A: (NOTE) (test code = 2552) INTERPRETATION HEPATITIS B: (NOTE) (test code = 12135) INTERPRETATION HEPATITIS C: (NOTE) (test code = 65151) VAGINAL PATHOGENS DNA [id number] 00:00:00 Test Item Value Reference Range Interpretation Comments RAMESH SPECIES (test code = ) NEGATIVE G. VAGINALIS (test code = 59993) POSITIVE T. VAGINALIS (test code = 21847) POSITIVE VAGINAL PATHOGENS DNA [id number] 00:00:00 Test Item Value Reference Range Interpretation Comments RAMESH SPECIES (test code = ) NEGATIVE G. VAGINALIS (test code = 28618) POSITIVE T. VAGINALIS (test code = 87470) POSITIVE HIV 1/2 4TH GEN, RFLX [id number] 00:00:00 Test Item Value Reference Range Interpretation Comments HIV 1/2 4TH GEN, RFLX CONF (test NON-REACTIVE code = 3514) HIV 1/2 4TH GEN, RFLX [id number] 00:00:00 Test Item Value Reference Range Interpretation Comments HIV 1/2 4TH GEN, RFLX CONF (test NON-REACTIVE code = 3514) CT/NG, TMA, [id number] 00:00:00 Test Item Value Reference Range Interpretation Comments GONORRHEA, NAAT (test code = 31072) NEGATIVE CHLAMYDIA, NAAT (test code = 18882) NEGATIVE CT/NG, TMA, [id number] 00:00:00 Test Item Value Reference Range Interpretation Comments GONORRHEA, NAAT (test code = 70534) NEGATIVE CHLAMYDIA, NAAT (test code = 55611) NEGATIVE [id number] 00:00:00 Test Item Value Reference Range Interpretation Comments RPR RESULT (test code = NON-REACTIVE 3501) RPR TITER (test code = 3500) NOT INDIC. TITER [id number] 00:00:00 Test Item Value Reference Range Interpretation Comments RPR RESULT (test code = NON-REACTIVE 3501) RPR TITER (test code = 3500) NOT INDIC. TITER [id number] 00:00:00 Test Item Value Reference Range Interpretation Comments RPR RESULT (test code = NON-REACTIVE 3501) RPR TITER (test code = 3500) NOT INDIC. TITER ACUTE HEPATITIS [id number] 00:00:00 Test Item Value Reference Range Interpretation Comments HEPATITIS A IgM (test code = NON-REACTIVE 04950) HEPATITIS B CORE IgM (test code NON-REACTIVE = 4644) HEPATITIS B SURF AG (test code = NON-REACTIVE 2739) HEPATITIS C ANTIBODY (test code NON-REACTIVE = 4675) INTERPRETATION HEPATITIS A: (NOTE) (test code = 2552) INTERPRETATION HEPATITIS B: (NOTE) (test code = 41546) INTERPRETATION HEPATITIS C: (NOTE) (test code = 12360) ACUTE HEPATITIS [id number] 00:00:00 Test Item Value Reference Range Interpretation Comments HEPATITIS A IgM (test code = NON-REACTIVE 31352) HEPATITIS B CORE IgM (test code NON-REACTIVE = 4644) HEPATITIS B SURF AG (test code = NON-REACTIVE 2739) HEPATITIS C ANTIBODY (test code NON-REACTIVE = 4675) INTERPRETATION HEPATITIS A: (NOTE) (test code = 2552) INTERPRETATION HEPATITIS B: (NOTE) (test code = 09517) INTERPRETATION HEPATITIS C: (NOTE) (test code = 08013) VAGINAL PATHOGENS DNA [id number] 00:00:00 Test Item Value Reference Range Interpretation Comments RAMESH SPECIES (test code = ) NEGATIVE G. VAGINALIS (test code = 14059) POSITIVE T. VAGINALIS (test code = 30823) POSITIVE VAGINAL PATHOGENS DNA [id number] 00:00:00 Test Item Value Reference Range Interpretation Comments RAMESH SPECIES (test code = ) NEGATIVE G. VAGINALIS (test code = 25664) POSITIVE T. VAGINALIS (test code = 23012) POSITIVE TSH, THIRD [id number] 06:51:11 Test Item Value Reference Range Interpretation Comments TSH, THIRD GENERATION (test code 0.937 UIU/ML 0.400-4.100 = 2821) HEMOGLOBIN [id number] 05:51:57 Test Item Value Reference Range Interpretation Comments HEMOGLOBIN A1c (test code = 22067) 5.6 % 4.2-5.6 COMPREHENSIVE METABOLIC [id number] 04:57:05 Test Item Value Reference Range Interpretation Comments GLUCOSE (test code = 105 MG/DL 70-99 H 2216) BUN (test code = 12 MG/DL 6-20 2207) CREATININE (test 0.70 MG/DL 0.60-1.30 code = 2214) eGFR (2020 CKD-EPI) 111 >60 (test code = 79712) ML/MIN/1.73 CALC BUN/CREAT (test 17 RATIO 6-28 code = 2235) SODIUM (test code = 138 MEQ/L 873-314 5196) POTASSIUM (test code 4.1 MEQ/L 3.5-5.4 = 2227) CHLORIDE (test code 102 MEQ/L 95-107 = 2214) CARBON DIOXIDE (test 24 MEQ/L 19-31 code = 2206) CALCIUM (test code = 9.9 MG/DL 8.5-10.5 2208) PROTEIN, TOTAL (test 7.3 G/DL 6.1-8.3 code = 222) ALBUMIN (test code = 4.8 G/DL 3.5-5.2 2200) CALC GLOBULIN (test 2.5 G/DL 1.9-3.7 code [...] PHOSPHATASE 71 U/L 40-113 (test code = 2204) AST (test code = 11 U/L 9-40 2217) ALT (test code = 17 U/L 5-40 2218) LIPID [id number] 04:57:05 Test Item Value Reference Range Interpretation [...] MOREINFORMATION , SEE CLIENT ANNOUNCE MENT AT [email or web address] RISK RATIO LDL/HDL 2.26 RATIO <3.22 (test code = 2238) CBC W/AUTO DIFF WITH [id number] 03:43:22 Test Item Value Reference Range Interpretation [...] message] code = 1065) WBC'S The system [employer] generated this result transmitted ref erence range: [...] 0.00-0.11 UNLESS O THERWISE (test code = 46821) INDICATE D, ALL TESTING PERFORM ED ATCLINICAL PATH OLOGY LABORATORIES, [facility] [address] [place] [address] [facility] DIRECTOR: ODILON SUMMERS M.D. CLIA NUMBER [id number] CAP ACCREDITATION N O. [id number] COMPREHENSIVE METABOLIC [id number] 00:00:00 Test Item Value Reference Range Interpretation Comments GLUCOSE (test code = 2217) 105 MG/DL BUN (test code = 2208) 12 MG/DL CREATININE (test code = 2214) 0.70 MG/DL eGFR (2020 CKD-EPI) (test 111 ML/MIN/1.73 code = 73609) CALC BUN/CREAT (test code = 17 RATIO [...] code = 2219) 17 U/L COMPREHENSIVE METABOLIC [id number] 00:00:00 Test Item Value Reference Range Interpretation Comments GLUCOSE (test code = 2217) 105 MG/DL BUN (test code = 2208) 12 MG/DL CREATININE (test code = 2214) 0.70 MG/DL eGFR (2020 CKD-EPI) (test 111 ML/MIN/1.73 code = 98684) CALC BUN/CREAT (test code = 17 RATIO [...] (test code = 2219) 17 U/L LIPID [id number] 00:00:00 Test Item Value Reference Range Interpretation Comments CHOLESTEROL (test code = 2210) 249 MG/DL TRIGLYCERIDES (test code = 2232) 97 MG/DL HDL CHOLESTEROL (test code = 2220) 70 MG/DL CALC LDL CHOL (test code = 2237) 158 MG/DL RISK RATIO LDL/HDL (test code = 2.26 RATIO 2238) LIPID [id number] 00:00:00 Test Item Value Reference Range Interpretation Comments CHOLESTEROL (test code = 2210) 249 MG/DL TRIGLYCERIDES (test code = 2232) 97 MG/DL HDL CHOLESTEROL (test code = 2220) 70 MG/DL CALC LDL CHOL (test code = 2237) 158 MG/DL RISK RATIO LDL/HDL (test code = 2.26 RATIO 2238) HEMOGLOBIN [id number] 00:00:00 Test Item Value Reference Range Interpretation Comments HEMOGLOBIN A1c (test code = 55951) 5.6 % HEMOGLOBIN [id number] 00:00:00 Test Item Value Reference Range Interpretation Comments HEMOGLOBIN A1c (test code = 91962) 5.6 % HEMOGLOBIN [id number] 00:00:00 Test Item Value Reference Range Interpretation Comments HEMOGLOBIN A1c (test code = 72408) 5.6 % TSH, THIRD [id number] 00:00:00 Test Item Value Reference Range Interpretation Comments TSH, THIRD GENERATION (test code 0.937 UIU/ML = 2821) TSH, THIRD [id number] 00:00:00 Test Item Value Reference Range Interpretation Comments TSH, THIRD GENERATION (test code 0.937 UIU/ML = 2821) TSH, THIRD [id number] 00:00:00 Test Item Value Reference Range Interpretation Comments TSH, THIRD GENERATION (test code 0.937 UIU/ML = 2821) CBC W/AUTO [id number] 00:00:00 Test Item Value Reference Range Interpretation [...] NUCLEATED RBCS (test code = 0.00 K/UL 90506) CBC W/AUTO [id number] 00:00:00 Test Item Value Reference Range Interpretation [...] NUCLEATED RBCS (test code = 0.00 K/UL 99949) CBC W/AUTO [id number] 00:00:00 Test Item Value Reference Range Interpretation [...] NUCLEATED RBCS (test code = 0.00 K/UL 91514) COMPREHENSIVE METABOLIC [id number] 00:00:00 Test Item Value Reference Range Interpretation Comments GLUCOSE (test code = 2217) 105 MG/DL BUN (test code = 2208) 12 MG/DL CREATININE (test code = 2214) 0.70 MG/DL eGFR (2020 CKD-EPI) (test 111 ML/MIN/1.73 code = 58991) CALC BUN/CREAT (test code = 17 RATIO [...] code = 2219) 17 U/L COMPREHENSIVE METABOLIC [id number] 00:00:00 Test Item Value Reference Range Interpretation Comments GLUCOSE (test code = 2217) 105 MG/DL BUN (test code = 2208) 12 MG/DL CREATININE (test code = 2214) 0.70 MG/DL eGFR (2020 CKD-EPI) (test 111 ML/MIN/1.73 code = 99254) CALC BUN/CREAT (test code = 17 RATIO [...] (test code = 2219) 17 U/L LIPID [id number] 00:00:00 Test Item Value Reference Range Interpretation Comments CHOLESTEROL (test code = 2210) 249 MG/DL TRIGLYCERIDES (test code = 2232) 97 MG/DL HDL CHOLESTEROL (test code = 2220) 70 MG/DL CALC LDL CHOL (test code = 2237) 158 MG/DL RISK RATIO LDL/HDL (test code = 2.26 RATIO 2238) LIPID [id number] 00:00:00 Test Item Value Reference Range Interpretation Comments CHOLESTEROL (test code = 2210) 249 MG/DL TRIGLYCERIDES (test code = 2232) 97 MG/DL HDL CHOLESTEROL (test code = 2220) 70 MG/DL CALC LDL CHOL (test code = 2237) 158 MG/DL RISK RATIO LDL/HDL (test code = 2.26 RATIO 2238) HEMOGLOBIN [id number] 00:00:00 Test Item Value Reference Range Interpretation Comments HEMOGLOBIN A1c (test code = 05228) 5.6 % HEMOGLOBIN [id number] 00:00:00 Test Item Value Reference Range Interpretation Comments HEMOGLOBIN A1c (test code = 60947) 5.6 % HEMOGLOBIN [id number] 00:00:00 Test Item Value Reference Range Interpretation Comments HEMOGLOBIN A1c (test code = 05784) 5.6 % TSH, THIRD [id number] 00:00:00 Test Item Value Reference Range Interpretation Comments TSH, THIRD GENERATION (test code 0.937 UIU/ML = 2821) TSH, THIRD [id number] 00:00:00 Test Item Value Reference Range Interpretation Comments TSH, THIRD GENERATION (test code 0.937 UIU/ML = 2821) TSH, THIRD [id number] 00:00:00 Test Item Value Reference Range Interpretation Comments TSH, THIRD GENERATION (test code 0.937 UIU/ML = 2821) CBC W/AUTO [id number] 00:00:00 Test Item Value Reference Range Interpretation [...] NUCLEATED RBCS (test code = 0.00 K/UL 98412) CBC W/AUTO [id number] 00:00:00 Test Item Value Reference Range Interpretation [...] NUCLEATED RBCS (test code = 0.00 K/UL 63767) CBC W/AUTO [id number] 00:00:00 Test Item Value Reference Range Interpretation [...] NUCLEATED RBCS (test code = 0.00 K/UL 00876) COMPREHENSIVE METABOLIC [id number] 00:00:00 Test Item Value Reference Range Interpretation Comments GLUCOSE (test code = 2217) 105 MG/DL BUN (test code = 2208) 12 MG/DL CREATININE (test code = 2214) 0.70 MG/DL eGFR (2020 CKD-EPI) (test 111 ML/MIN/1.73 code = 06368) CALC BUN/CREAT (test code = 17 RATIO [...] code = 2219) 17 U/L COMPREHENSIVE METABOLIC [id number] 00:00:00 Test Item Value Reference Range Interpretation Comments GLUCOSE (test code = 2217) 105 MG/DL BUN (test code = 2208) 12 MG/DL CREATININE (test code = 2214) 0.70 MG/DL eGFR (2020 CKD-EPI) (test 111 ML/MIN/1.73 code = 95100) CALC BUN/CREAT (test code = 17 RATIO [...] (test code = 2219) 17 U/L LIPID [id number] 00:00:00 Test Item Value Reference Range Interpretation Comments CHOLESTEROL (test code = 2210) 249 MG/DL TRIGLYCERIDES (test code = 2232) 97 MG/DL HDL CHOLESTEROL (test code = 2220) 70 MG/DL CALC LDL CHOL (test code = 2237) 158 MG/DL RISK RATIO LDL/HDL (test code = 2.26 RATIO 2238) LIPID [id number] 00:00:00 Test Item Value Reference Range Interpretation Comments CHOLESTEROL (test code = 2210) 249 MG/DL TRIGLYCERIDES (test code = 2232) 97 MG/DL HDL CHOLESTEROL (test code = 2220) 70 MG/DL CALC LDL CHOL (test code = 2237) 158 MG/DL RISK RATIO LDL/HDL (test code = 2.26 RATIO 2238) HEMOGLOBIN [id number] 00:00:00 Test Item Value Reference Range Interpretation Comments HEMOGLOBIN A1c (test code = 50924) 5.6 % HEMOGLOBIN [id number] 00:00:00 Test Item Value Reference Range Interpretation Comments HEMOGLOBIN A1c (test code = 85583) 5.6 % HEMOGLOBIN [id number] 00:00:00 Test Item Value Reference Range Interpretation Comments HEMOGLOBIN A1c (test code = 49376) 5.6 % TSH, THIRD [id number] 00:00:00 Test Item Value Reference Range Interpretation Comments TSH, THIRD GENERATION (test code 0.937 UIU/ML = 2821) TSH, THIRD [id number] 00:00:00 Test Item Value Reference Range Interpretation Comments TSH, THIRD GENERATION (test code 0.937 UIU/ML = 2821) TSH, THIRD [id number] 00:00:00 Test Item Value Reference Range Interpretation Comments TSH, THIRD GENERATION (test code 0.937 UIU/ML = 2821) CBC W/AUTO [id number] 00:00:00 Test Item Value Reference Range Interpretation [...] NUCLEATED RBCS (test code = 0.00 K/UL 95379) CBC W/AUTO [id number] 00:00:00 Test Item Value Reference Range Interpretation [...] NUCLEATED RBCS (test code = 0.00 K/UL 47333) CBC W/AUTO [id number] 00:00:00 Test Item Value Reference Range Interpretation [...] NUCLEATED RBCS (test code = 0.00 K/UL 24881) COMPREHENSIVE METABOLIC [id number] 00:00:00 Test Item Value Reference Range Interpretation Comments GLUCOSE (test code = 2217) 105 MG/DL BUN (test code = 2208) 12 MG/DL CREATININE (test code = 2214) 0.70 MG/DL eGFR (2020 CKD-EPI) (test 111 ML/MIN/1.73 code = 51280) CALC BUN/CREAT (test code = 17 RATIO [...] code = 2219) 17 U/L COMPREHENSIVE METABOLIC [id number] 00:00:00 Test Item Value Reference Range Interpretation Comments GLUCOSE (test code = 2217) 105 MG/DL BUN (test code = 2208) 12 MG/DL CREATININE (test code = 2214) 0.70 MG/DL eGFR (2020 CKD-EPI) (test 111 ML/MIN/1.73 code = 74561) CALC BUN/CREAT (test code = 17 RATIO [...] (test code = 2219) 17 U/L LIPID [id number] 00:00:00 Test Item Value Reference Range Interpretation Comments CHOLESTEROL (test code = 2210) 249 MG/DL TRIGLYCERIDES (test code = 2232) 97 MG/DL HDL CHOLESTEROL (test code = 2220) 70 MG/DL CALC LDL CHOL (test code = 2237) 158 MG/DL RISK RATIO LDL/HDL (test code = 2.26 RATIO 2238) LIPID [id number] 00:00:00 Test Item Value Reference Range Interpretation Comments CHOLESTEROL (test code = 2210) 249 MG/DL TRIGLYCERIDES (test code = 2232) 97 MG/DL HDL CHOLESTEROL (test code = 2220) 70 MG/DL CALC LDL CHOL (test code = 2237) 158 MG/DL RISK RATIO LDL/HDL (test code = 2.26 RATIO 2238) HEMOGLOBIN [id number] 00:00:00 Test Item Value Reference Range Interpretation Comments HEMOGLOBIN A1c (test code = 02509) 5.6 % HEMOGLOBIN [id number] 00:00:00 Test Item Value Reference Range Interpretation Comments HEMOGLOBIN A1c (test code = 75956) 5.6 % HEMOGLOBIN [id number] 00:00:00 Test Item Value Reference Range Interpretation Comments HEMOGLOBIN A1c (test code = 87683) 5.6 % TSH, THIRD [id number] 00:00:00 Test Item Value Reference Range Interpretation Comments TSH, THIRD GENERATION (test code 0.937 UIU/ML = 2821) TSH, THIRD [id number] 00:00:00 Test Item Value Reference Range Interpretation Comments TSH, THIRD GENERATION (test code 0.937 UIU/ML = 2821) TSH, THIRD [id number] 00:00:00 Test Item Value Reference Range Interpretation Comments TSH, THIRD GENERATION (test code 0.937 UIU/ML = 2821) CBC W/AUTO [id number] 00:00:00 Test Item Value Reference Range Interpretation [...] NUCLEATED RBCS (test code = 0.00 K/UL 79729) CBC W/AUTO [id number] 00:00:00 Test Item Value Reference Range Interpretation [...] NUCLEATED RBCS (test code = 0.00 K/UL 20825) CBC W/AUTO [id number] 00:00:00 Test Item Value Reference Range Interpretation [...] NUCLEATED RBCS (test code = 0.00 K/UL 44184) COMPREHENSIVE METABOLIC [id number] 00:00:00 Test Item Value Reference Range Interpretation Comments GLUCOSE (test code = 2217) 105 MG/DL BUN (test code = 2208) 12 MG/DL CREATININE (test code = 2214) 0.70 MG/DL eGFR (2020 CKD-EPI) (test 111 ML/MIN/1.73 code = 54058) CALC BUN/CREAT (test code = 17 RATIO [...] code = 2219) 17 U/L COMPREHENSIVE METABOLIC [id number] 00:00:00 Test Item Value Reference Range Interpretation Comments GLUCOSE (test code = 2217) 105 MG/DL BUN (test code = 2208) 12 MG/DL CREATININE (test code = 2214) 0.70 MG/DL eGFR (2020 CKD-EPI) (test 111 ML/MIN/1.73 code = 13330) CALC BUN/CREAT (test code = 17 RATIO [...] (test code = 2219) 17 U/L LIPID [id number] 00:00:00 Test Item Value Reference Range Interpretation Comments CHOLESTEROL (test code = 2210) 249 MG/DL TRIGLYCERIDES (test code = 2232) 97 MG/DL HDL CHOLESTEROL (test code = 2220) 70 MG/DL CALC LDL CHOL (test code = 2237) 158 MG/DL RISK RATIO LDL/HDL (test code = 2.26 RATIO 2238) LIPID [id number] 00:00:00 Test Item Value Reference Range Interpretation Comments CHOLESTEROL (test code = 2210) 249 MG/DL TRIGLYCERIDES (test code = 2232) 97 MG/DL HDL CHOLESTEROL (test code = 2220) 70 MG/DL CALC LDL CHOL (test code = 2237) 158 MG/DL RISK RATIO LDL/HDL (test code = 2.26 RATIO 2238) HEMOGLOBIN [id number] 00:00:00 Test Item Value Reference Range Interpretation Comments HEMOGLOBIN A1c (test code = 43860) 5.6 % HEMOGLOBIN [id number] 00:00:00 Test Item Value Reference Range Interpretation Comments HEMOGLOBIN A1c (test code = 04645) 5.6 % HEMOGLOBIN [id number] 00:00:00 Test Item Value Reference Range Interpretation Comments HEMOGLOBIN A1c (test code = 00626) 5.6 % TSH, THIRD [id number] 00:00:00 Test Item Value Reference Range Interpretation Comments TSH, THIRD GENERATION (test code 0.937 UIU/ML = 2821) TSH, THIRD [id number] 00:00:00 Test Item Value Reference Range Interpretation Comments TSH, THIRD GENERATION (test code 0.937 UIU/ML = 2821) TSH, THIRD [id number] 00:00:00 Test Item Value Reference Range Interpretation Comments TSH, THIRD GENERATION (test code 0.937 UIU/ML = 2821) CBC W/AUTO [id number] 00:00:00 Test Item Value Reference Range Interpretation [...] NUCLEATED RBCS (test code = 0.00 K/UL 87369) CBC W/AUTO [id number] 00:00:00 Test Item Value Reference Range Interpretation [...] NUCLEATED RBCS (test code = 0.00 K/UL 80968) CBC W/AUTO [id number] 00:00:00 Test Item Value Reference Range Interpretation [...] NUCLEATED RBCS (test code = 0.00 K/UL 25984) COMPREHENSIVE METABOLIC [id number] 00:00:00 Test Item Value Reference Range Interpretation Comments GLUCOSE (test code = 2217) 105 MG/DL BUN (test code = 2208) 12 MG/DL CREATININE (test code = 2214) 0.70 MG/DL eGFR (2020 CKD-EPI) (test 111 ML/MIN/1.73 code = 09267) CALC BUN/CREAT (test code = 17 RATIO [...] code = 2219) 17 U/L COMPREHENSIVE METABOLIC [id number] 00:00:00 Test Item Value Reference Range Interpretation Comments GLUCOSE (test code = 2217) 105 MG/DL BUN (test code = 2208) 12 MG/DL CREATININE (test code = 2214) 0.70 MG/DL eGFR (2020 CKD-EPI) (test 111 ML/MIN/1.73 code = 76683) CALC BUN/CREAT (test code = 17 RATIO [...] (test code = 2219) 17 U/L LIPID [id number] 00:00:00 Test Item Value Reference Range Interpretation Comments CHOLESTEROL (test code = 2210) 249 MG/DL TRIGLYCERIDES (test code = 2232) 97 MG/DL HDL CHOLESTEROL (test code = 2220) 70 MG/DL CALC LDL CHOL (test code = 2237) 158 MG/DL RISK RATIO LDL/HDL (test code = 2.26 RATIO 2238) LIPID [id number] 00:00:00 Test Item Value Reference Range Interpretation Comments CHOLESTEROL (test code = 2210) 249 MG/DL TRIGLYCERIDES (test code = 2232) 97 MG/DL HDL CHOLESTEROL (test code = 2220) 70 MG/DL CALC LDL CHOL (test code = 2237) 158 MG/DL RISK RATIO LDL/HDL (test code = 2.26 RATIO 2238) HEMOGLOBIN [id number] 00:00:00 Test Item Value Reference Range Interpretation Comments HEMOGLOBIN A1c (test code = 37203) 5.6 % HEMOGLOBIN [id number] 00:00:00 Test Item Value Reference Range Interpretation Comments HEMOGLOBIN A1c (test code = 59731) 5.6 % HEMOGLOBIN [id number] 00:00:00 Test Item Value Reference Range Interpretation Comments HEMOGLOBIN A1c (test code = 38777) 5.6 % TSH, THIRD [id number] 00:00:00 Test Item Value Reference Range Interpretation Comments TSH, THIRD GENERATION (test code 0.937 UIU/ML = 2821) TSH, THIRD [id number] 00:00:00 Test Item Value Reference Range Interpretation Comments TSH, THIRD GENERATION (test code 0.937 UIU/ML = 2821) TSH, THIRD [id number] 00:00:00 Test Item Value Reference Range Interpretation Comments TSH, THIRD GENERATION (test code 0.937 UIU/ML = 2821) CBC W/AUTO [id number] 00:00:00 Test Item Value Reference Range Interpretation [...] NUCLEATED RBCS (test code = 0.00 K/UL 73694) CBC W/AUTO [id number] 00:00:00 Test Item Value Reference Range Interpretation [...] NUCLEATED RBCS (test code = 0.00 K/UL 69554) CBC W/AUTO [id number] 00:00:00 Test Item Value Reference Range Interpretation [...] NUCLEATED RBCS (test code = 0.00 K/UL 09486) CULTURE, [id number] 09:57:25SPECIMEN NUMBER: [id number] CULTURE, URINE SPECIMEN NUMBER: [id number] SPECIMEN COMMENT: URINE SOURCE: URINE REPORT STATUS: FINAL FINAL REPORT: 06/15/2022 10-50,000 CFU/ML UROGENITAL OLEKSANDR PRESENT NO CO MMON PATHOGENS UNLESS OTHERWISE INDICATED, ALL TESTING PERFORMED [facility] [address] [place] [id number] APPLIANCE SERVICE TECHNICIAN: ODILON SUMMERS M.D. CLIA NUMBER [id number] [place]. [id number] CULTURE, [id number] 00:00:00 Test Item Value Reference Range Interpretation Comments CULTURE, URINE (test SPECIMEN NUMBER: code = 84041) [id number] CULTURE, [id number] 00:00:00 Test Item Value Reference Range Interpretation Comments CULTURE, URINE (test SPECIMEN NUMBER: code = 83995) [id number] CULTURE, [id number] 00:00:00 Test Item Value Reference Range Interpretation Comments CULTURE, URINE (test SPECIMEN NUMBER: code = 32557) [id number] CULTURE, [id number] 00:00:00 Test Item Value Reference Range Interpretation Comments CULTURE, URINE (test SPECIMEN NUMBER: code = 76737) [id number] CULTURE, [id number] 00:00:00 Test Item Value Reference Range Interpretation Comments CULTURE, URINE (test SPECIMEN NUMBER: code = 07941) [id number] CULTURE, [id number] 00:00:00 Test Item Value Reference Range Interpretation Comments CULTURE, URINE (test SPECIMEN NUMBER: code = 17128) [id number] CULTURE, [id number] 00:00:00 Test Item Value Reference Range Interpretation Comments CULTURE, URINE (test SPECIMEN NUMBER: code = 67074) [id number] CULTURE, [id number] 00:00:00 Test Item Value Reference Range Interpretation Comments CULTURE, URINE (test SPECIMEN NUMBER: code = 61481) [id number] CULTURE, [id number] 00:00:00 Test Item Value Reference Range Interpretation Comments CULTURE, URINE (test SPECIMEN NUMBER: code = 79940) [id number] CULTURE, [id number] 00:00:00 Test Item Value Reference Range Interpretation Comments CULTURE, URINE (test SPECIMEN NUMBER: code = 31165) [id number] CULTURE, [id number] 00:00:00 Test Item Value Reference Range Interpretation Comments CULTURE, URINE (test SPECIMEN NUMBER: code = 44954) [id number] CULTURE, [id number] 00:00:00 Test Item Value Reference Range Interpretation Comments CULTURE, URINE (test SPECIMEN NUMBER: code = 14403) [id number] CULTURE, [id number] 00:00:00 Test Item Value Reference Range Interpretation Comments CULTURE, URINE (test SPECIMEN NUMBER: code = 73120) [id number] CULTURE, [id number] 00:00:00 Test Item Value Reference Range Interpretation Comments CULTURE, URINE (test SPECIMEN NUMBER: code = 46086) [id number] VAGINAL PATHOGENS DNA [id number] 08:25:39 Test Item Value Reference Range Interpretation Comments RAMESH SPECIES (test NEGATIVE NEGATIVE code = 42258) G. VAGINALIS (test POSITIVE NEGATIVE A code = 88496) T. VAGINALIS (test NEGATIVE NEGATIVE Analysis performed code = 72197) beyond manufac turer designated stab ility. Correlate with clinical history and con operations recruiter retesting as cl inically indicated. Resu lts reviewed by the Microbiology de partment for accuracy pr ior to reporting. VAGINAL PATHOGENS DNA [id number] 00:00:00 Test Item Value Reference Range Interpretation Comments RAMESH SPECIES (test code = 67962) NEGATIVE G. VAGINALIS (test code = 19189) POSITIVE T. VAGINALIS (test code = 36373) NEGATIVE VAGINAL PATHOGENS DNA [id number] 00:00:00 Test Item Value Reference Range Interpretation Comments RAMESH SPECIES (test code = 51740) NEGATIVE G. VAGINALIS (test code = 10301) POSITIVE T. VAGINALIS (test code = 31293) NEGATIVE VAGINAL PATHOGENS DNA [id number] 00:00:00 Test Item Value Reference Range Interpretation Comments RAMESH SPECIES (test code = 92144) NEGATIVE G. VAGINALIS (test code = 26990) POSITIVE T. VAGINALIS (test code = 93239) NEGATIVE VAGINAL PATHOGENS DNA [id number] 00:00:00 Test Item Value Reference Range Interpretation Comments RAMESH SPECIES (test code = 69948) NEGATIVE G. VAGINALIS (test code = 26512) POSITIVE T. VAGINALIS (test code = 85724) NEGATIVE VAGINAL PATHOGENS DNA [id number] 00:00:00 Test Item Value Reference Range Interpretation Comments RAMESH SPECIES (test code = 97846) NEGATIVE G. VAGINALIS (test code = 11728) POSITIVE T. VAGINALIS (test code = 59581) NEGATIVE VAGINAL PATHOGENS DNA [id number] 00:00:00 Test Item Value Reference Range Interpretation Comments RAMESH SPECIES (test code = 75252) NEGATIVE G. VAGINALIS (test code = 17903) POSITIVE T. VAGINALIS (test code = 71043) NEGATIVE VAGINAL PATHOGENS DNA [id number] 00:00:00 Test Item Value Reference Range Interpretation Comments RAMESH SPECIES (test code = 92645) NEGATIVE G. VAGINALIS (test code = 84962) POSITIVE T. VAGINALIS (test code = 09121) NEGATIVE VAGINAL PATHOGENS DNA [id number] 00:00:00 Test Item Value Reference Range Interpretation Comments RAMESH SPECIES (test code = ) NEGATIVE G. VAGINALIS (test code = 42236) POSITIVE T. VAGINALIS (test code = 47931) NEGATIVE VAGINAL PATHOGENS DNA [id number] 00:00:00 Test Item Value Reference Range Interpretation Comments RAMESH SPECIES (test code = ) NEGATIVE G. VAGINALIS (test code = 78687) POSITIVE T. VAGINALIS (test code = 15040) NEGATIVE VAGINAL PATHOGENS DNA [id number] 00:00:00 Test Item Value Reference Range Interpretation Comments RAMESH SPECIES (test code = ) NEGATIVE G. VAGINALIS (test code = 48772) POSITIVE T. VAGINALIS (test code = 48145) NEGATIVE VAGINAL PATHOGENS DNA [id number] 00:00:00 Test Item Value Reference Range Interpretation Comments RAMESH SPECIES (test code = ) NEGATIVE G. VAGINALIS (test code = 79229) POSITIVE T. VAGINALIS (test code = 00861) NEGATIVE VAGINAL PATHOGENS DNA [id number] 00:00:00 Test Item Value Reference Range Interpretation Comments RAMESH SPECIES (test code = 60814) NEGATIVE G. VAGINALIS (test code = 12406) POSITIVE T. VAGINALIS (test code = 25507) NEGATIVE VAGINAL PATHOGENS DNA [id number] 00:00:00 Test Item Value Reference Range Interpretation Comments RAMESH SPECIES (test code = 98527) NEGATIVE G. VAGINALIS (test code = 84964) POSITIVE T. VAGINALIS (test code = 92409) NEGATIVE VAGINAL PATHOGENS DNA [id number] 00:00:00 Test Item Value Reference Range Interpretation Comments RAMESH SPECIES (test code = 99000) NEGATIVE G. VAGINALIS (test code = 87605) POSITIVE T. VAGINALIS (test code = 29757) NEGATIVE VAGINAL PATHOGENS DNA [id number] 00:00:00 Test Item Value Reference Range Interpretation Comments RAMESH SPECIES (test code = 86812) NEGATIVE G. VAGINALIS (test code = 45409) POSITIVE T. VAGINALIS (test code = 53454) NEGATIVE VAGINAL PATHOGENS DNA [id number] 00:00:00 Test Item Value Reference Range Interpretation Comments RAMESH SPECIES (test code = 90849) NEGATIVE G. VAGINALIS (test code = 89176) POSITIVE T. VAGINALIS (test code = 20689) NEGATIVE VAGINAL PATHOGENS DNA [id number] 00:00:00 Test Item Value Reference Range Interpretation Comments RAMESH SPECIES (test code = 78318) NEGATIVE G. VAGINALIS (test code = 78054) POSITIVE T. VAGINALIS (test code = 92401) NEGATIVE VAGINAL PATHOGENS DNA [id number] 00:00:00 Test Item Value Reference Range Interpretation Comments RAMESH SPECIES (test code = 23773) NEGATIVE G. VAGINALIS (test code = 74029) POSITIVE T. VAGINALIS (test code = 73369) NEGATIVE VAGINAL PATHOGENS DNA [id number] 00:00:00 Test Item Value Reference Range Interpretation Comments RAMESH SPECIES (test code = 27260) NEGATIVE G. VAGINALIS (test code = 93691) POSITIVE T. VAGINALIS (test code = 77808) NEGATIVE VAGINAL PATHOGENS DNA [id number] 00:00:00 Test Item Value Reference Range Interpretation Comments RAMESH SPECIES (test code = 89619) NEGATIVE G. VAGINALIS (test code = 29011) POSITIVE T. VAGINALIS (test code = 09839) NEGATIVE VAGINAL PATHOGENS DNA [id number] 00:00:00 Test Item Value Reference Range Interpretation Comments RAMESH SPECIES (test code = 54121) NEGATIVE G. VAGINALIS (test code = 69570) POSITIVE T. VAGINALIS (test code = 44992) NEGATIVE HIV 1/2 4TH GEN, RFLX [id number] 00:02:34 Test Item Value Reference Range Interpretation Comments HIV 1/2 4TH GEN, RFLX CONF (test NON-REACTIVE NON-REACTIVE code = 3514) HEPATITIS PANEL, [id number] 00:02:34 Test Item Value Reference Range Interpretation [...] HEPATITIS B: (test serology consistent code = 10287) with immunity to hepatitis Bfrom previous hepati tis B vaccination. INTERPRETATION (NOTE) Hepatitis C HEPATITIS C: (test serology shows no code = 11253) evidence of ex posure to hepatitisC v irus at this time. I t can take up to 12 m onths after exposure tothe hepatitis C vir us for antibodies to become detectab le in the blood in ce rtain patients. UNLES S OTHERWISE INDIC ATED, ALL TESTING PERFORMED [facility], [facility]. [address] [place] [id number] [place] [address] DIRECTOR: ODILON SUMMERS M.D. CLIA NUMBER [id number] [place]. [id number] HEPATITIS PROFILE (A,B,C)2022-03-22 00:00:00 Test Item Value Reference Range Interpretation Comments HEPATITIS A TOTAL AB (test code NON-REACTIVE = 2725) HEPATITIS B SURF AG (test code = NON-REACTIVE 273) HEP B CORE TOTAL AB (test code = NON-REACTIVE 2729) HEPATITIS B SURFACE AB (test REACTIVE code = 2737) HEPATITIS C ANTIBODY (test code NON-REACTIVE = 4675) INTERPRETATION HEPATITIS A: (NOTE) (test code = 2552) INTERPRETATION HEPATITIS B: (NOTE) (test code = 64299) INTERPRETATION HEPATITIS C: (NOTE) (test code = 91931) HEPATITIS PROFILE (A,B,C)2022-03-22 00:00:00 Test Item Value [...] INTERPRETATION HEPATITIS B: (NOTE) (test code = 37212) INTERPRETATION HEPATITIS C: (NOTE) (test code = 08023) HIV 1/2 4TH GEN, RFLX CONF [ADDED]2022-03-22 [...] INTERPRETATION HEPATITIS B: (NOTE) (test code = 53501) INTERPRETATION HEPATITIS C: (NOTE) (test code = 38483) HEPATITIS PROFILE (A,B,C)2022-03-22 00:00:00 Test Item Value [...] INTERPRETATION HEPATITIS B: (NOTE) (test code = 39485) INTERPRETATION HEPATITIS C: (NOTE) (test code = 11421) HIV 1/2 4TH GEN, RFLX CONF [ADDED]2022-03-22 [...] INTERPRETATION HEPATITIS B: (NOTE) (test code = 31750) INTERPRETATION HEPATITIS C: (NOTE) (test code = 77175) HEPATITIS PROFILE (A,B,C)2022-03-22 00:00:00 Test Item Value [...] INTERPRETATION HEPATITIS B: (NOTE) (test code = 41015) INTERPRETATION HEPATITIS C: (NOTE) (test code = 44772) HIV 1/2 4TH GEN, RFLX CONF [ADDED]2022-03-22 [...] INTERPRETATION HEPATITIS B: (NOTE) (test code = 29603) INTERPRETATION HEPATITIS C: (NOTE) (test code = 43552) HEPATITIS PROFILE (A,B,C)2022-03-22 00:00:00 Test Item Value [...] INTERPRETATION HEPATITIS B: (NOTE) (test code = 51966) INTERPRETATION HEPATITIS C: (NOTE) (test code = 55152) HIV 1/2 4TH GEN, RFLX CONF [ADDED]2022-03-22 [...] INTERPRETATION HEPATITIS B: (NOTE) (test code = 35088) INTERPRETATION HEPATITIS C: (NOTE) (test code = 60625) HEPATITIS PROFILE (A,B,C)2022-03-22 00:00:00 Test Item Value [...] INTERPRETATION HEPATITIS B: (NOTE) (test code = 01800) INTERPRETATION HEPATITIS C: (NOTE) (test code = 43563) HIV 1/2 4TH GEN, RFLX CONF [ADDED]2022-03-22 [...] INTERPRETATION HEPATITIS B: (NOTE) (test code = 55265) INTERPRETATION HEPATITIS C: (NOTE) (test code = 74644) HEPATITIS PROFILE (A,B,C)2022-03-22 00:00:00 Test Item Value [...] INTERPRETATION HEPATITIS B: (NOTE) (test code = 00996) INTERPRETATION HEPATITIS C: (NOTE) (test code = 39059) HIV 1/2 4TH GEN, RFLX CONF [ADDED]2022-03-22 [...] INTERPRETATION HEPATITIS B: (NOTE) (test code = 48464) INTERPRETATION HEPATITIS C: (NOTE) (test code = 51142) HEPATITIS PROFILE (A,B,C)2022-03-22 00:00:00 Test Item Value [...] INTERPRETATION HEPATITIS B: (NOTE) (test code = 55873) INTERPRETATION HEPATITIS C: (NOTE) (test code = 14029) HIV 1/2 4TH GEN, RFLX CONF [ADDED]2022-03-22 [...] INTERPRETATION HEPATITIS B: (NOTE) (test code = 43383) INTERPRETATION HEPATITIS C: (NOTE) (test code = 95832) HEPATITIS PROFILE (A,B,C)2022-03-22 00:00:00 Test Item Value [...] INTERPRETATION HEPATITIS B: (NOTE) (test code = 41399) INTERPRETATION HEPATITIS C: (NOTE) (test code = 43057) HIV 1/2 4TH GEN, RFLX CONF [ADDED]2022-03-22 [...] INTERPRETATION HEPATITIS B: (NOTE) (test code = 95227) INTERPRETATION HEPATITIS C: (NOTE) (test code = 82239) HIV 1/2 4TH GEN, RFLX CONF [ADDED]2022-03-22 [...] INTERPRETATION HEPATITIS B: (NOTE) (test code = 60578) INTERPRETATION HEPATITIS C: (NOTE) (test code = 58701) HEPATITIS PROFILE (A,B,C)2022-03-22 00:00:00 Test Item Value [...] INTERPRETATION HEPATITIS B: (NOTE) (test code = 95011) INTERPRETATION HEPATITIS C: (NOTE) (test code = 55213) HIV 1/2 4TH GEN, RFLX CONF [ADDED]2022-03-22 [...] INTERPRETATION HEPATITIS B: (NOTE) (test code = 31491) INTERPRETATION HEPATITIS C: (NOTE) (test code = 44673) HEPATITIS PROFILE (A,B,C)2022-03-22 00:00:00 Test Item Value [...] INTERPRETATION HEPATITIS B: (NOTE) (test code = 79201) INTERPRETATION HEPATITIS C: (NOTE) (test code = 57533) HIV 1/2 4TH GEN, RFLX CONF [ADDED]2022-03-22 00:00:00 Test Item Value Reference Range Interpretation Comments HIV 1/2 4TH GEN, RFLX CONF (test NON-REACTIVE code = 3514) HIV 1/2 4TH GEN, RFLX CONF [ADDED]2022-03-22 00:00:00 Test Item Value Reference Range Interpretation Comments HIV 1/2 4TH GEN, RFLX CONF (test NON-REACTIVE code = 3514) [id number] 22:35:53 Test Item Value Reference Range Interpretation Comments RPR RESULT (test code = NON-REACTIVE NON-REACTIVE 3501) RPR TITER (test code = 3500) NOT INDIC. TITER NOT INDIC. [id number] 00:00:00 Test Item Value Reference Range Interpretation Comments RPR RESULT (test code = NON-REACTIVE 3501) RPR TITER (test code = 3500) NOT INDIC. TITER [id number] 00:00:00 Test Item Value Reference Range Interpretation Comments RPR RESULT (test code = NON-REACTIVE 3501) RPR TITER (test code = 3500) NOT INDIC. TITER [id number] 00:00:00 Test Item Value Reference Range Interpretation Comments RPR RESULT (test code = NON-REACTIVE 3501) RPR TITER (test code = 3500) NOT INDIC. TITER [id number] 00:00:00 Test Item Value Reference Range Interpretation Comments RPR RESULT (test code = NON-REACTIVE 3501) RPR TITER (test code = 3500) NOT INDIC. TITER [id number] 00:00:00 Test Item Value Reference Range Interpretation Comments RPR RESULT (test code = NON-REACTIVE 3501) RPR TITER (test code = 3500) NOT INDIC. TITER [id number] 00:00:00 Test Item Value Reference Range Interpretation Comments RPR RESULT (test code = NON-REACTIVE 3501) RPR TITER (test code = 3500) NOT INDIC. TITER [id number] 00:00:00 Test Item Value Reference Range Interpretation Comments RPR RESULT (test code = NON-REACTIVE 3501) RPR TITER (test code = 3500) NOT INDIC. TITER [id number] 00:00:00 Test Item Value Reference Range Interpretation Comments RPR RESULT (test code = NON-REACTIVE 3501) RPR TITER (test code = 3500) NOT INDIC. TITER [id number] 00:00:00 Test Item Value Reference Range Interpretation Comments RPR RESULT (test code = NON-REACTIVE 3501) RPR TITER (test code = 3500) NOT INDIC. TITER [id number] 00:00:00 Test Item Value Reference Range Interpretation Comments RPR RESULT (test code = NON-REACTIVE 3501) RPR TITER (test code = 3500) NOT INDIC. TITER [id number] 00:00:00 Test Item Value Reference Range Interpretation Comments RPR RESULT (test code = NON-REACTIVE 3501) RPR TITER (test code = 3500) NOT INDIC. TITER [id number] 00:00:00 Test Item Value Reference Range Interpretation Comments RPR RESULT (test code = NON-REACTIVE 3501) RPR TITER (test code = 3500) NOT INDIC. TITER [id number] 00:00:00 Test Item Value Reference Range Interpretation Comments RPR RESULT (test code = NON-REACTIVE 3501) RPR TITER (test code = 3500) NOT INDIC. TITER [id number] 00:00:00 Test Item Value Reference Range Interpretation Comments RPR RESULT (test code = NON-REACTIVE 3501) RPR TITER (test code = 3500) NOT INDIC. TITER [id number] 00:00:00 Test Item Value Reference Range Interpretation Comments RPR RESULT (test code = NON-REACTIVE 3501) RPR TITER (test code = 3500) NOT INDIC. TITER [id number] 00:00:00 Test Item Value Reference Range Interpretation Comments RPR RESULT (test code = NON-REACTIVE 3501) RPR TITER (test code = 3500) NOT INDIC. TITER [id number] 00:00:00 Test Item Value Reference Range Interpretation Comments RPR RESULT (test code = NON-REACTIVE 3501) RPR TITER (test code = 3500) NOT INDIC. TITER [id number] 00:00:00 Test Item Value Reference Range Interpretation Comments RPR RESULT (test code = NON-REACTIVE 3501) RPR TITER (test code = 3500) NOT INDIC. TITER [id number] 00:00:00 Test Item Value Reference Range Interpretation Comments RPR RESULT (test code = NON-REACTIVE 3501) RPR TITER (test code = 3500) NOT INDIC. TITER [id number] 00:00:00 Test Item Value Reference Range Interpretation Comments RPR RESULT (test code = NON-REACTIVE 3501) RPR TITER (test code = 3500) NOT INDIC. TITER [id number] 00:00:00 Test Item Value Reference Range Interpretation Comments RPR RESULT (test code = NON-REACTIVE 3501) RPR TITER (test code = 3500) NOT INDIC. TITER [id number] 00:00:00 Test Item Value Reference Range Interpretation Comments RPR RESULT (test code = NON-REACTIVE 3501) RPR TITER (test code = 3500) NOT INDIC. TITER [id number] 00:00:00 Test Item Value Reference Range Interpretation Comments RPR RESULT (test code = NON-REACTIVE 3501) RPR TITER (test code = 3500) NOT INDIC. TITER [id number] 00:00:00 Test Item Value Reference Range Interpretation Comments RPR RESULT (test code = NON-REACTIVE 3501) RPR TITER (test code = 3500) NOT INDIC. TITER [id number] 00:00:00 Test Item Value Reference Range Interpretation Comments RPR RESULT (test code = NON-REACTIVE 3501) RPR TITER (test code = 3500) NOT INDIC. TITER [id number] 00:00:00 Test Item Value Reference Range Interpretation Comments RPR RESULT (test code = NON-REACTIVE 3501) RPR TITER (test code = 3500) NOT INDIC. TITER [id number] 00:00:00 Test Item Value Reference Range Interpretation Comments RPR RESULT (test code = NON-REACTIVE 3501) RPR TITER (test code = 3500) NOT INDIC. TITER [id number] 00:00:00 Test Item Value Reference Range Interpretation Comments RPR RESULT (test code = NON-REACTIVE 3501) RPR TITER (test code = 3500) NOT INDIC. TITER [id number] 00:00:00 Test Item Value Reference Range Interpretation Comments RPR RESULT (test code = NON-REACTIVE 3501) RPR TITER (test code = 3500) NOT INDIC. TITER [id number] 00:00:00 Test Item Value Reference Range Interpretation Comments RPR RESULT (test code = NON-REACTIVE 3501) RPR TITER (test code = 3500) NOT INDIC. TITER [id number] 00:00:00 Test Item Value Reference Range Interpretation Comments RPR RESULT (test code = NON-REACTIVE 3501) RPR TITER (test code = 3500) NOT INDIC. TITER [id number] 00:00:00 Test Item Value Reference Range Interpretation Comments RPR RESULT (test code = NON-REACTIVE 3501) RPR TITER (test code = 3500) NOT INDIC. TITER SARS-CoV-2 (COVID-19), RT-[id number] 17:22:58 Test Item Value Reference Interpretation Comments Range SARS-CoV-2 NEGATIVE SEE NOTE SARS-CoV-2 RNA NOT INTERPRETATION DETECTEDNegat alexander (test code = 74472) results do not preclude SARS-C oV-2 infection [...] (test code = NASOPHARYNGEAL Note: [place] [address]) Steve Cecile [place] l-Time RT-PCR. The exp ected result or refer ence range is NEGATI VE (Not Detected). For more information reg arding COVID-19 testin g to include clinicalinforma tion, methodology det ail, intended use, F DA authorization andrecommended fact sheets for mac ents or healthcare prov iders, see NewTest Announcement: SARS-CoV-2 (COV ID-19) by NAAT at URL below (note,fact shee ts are provided by met hod given in report:https:// [email or web address] Alternatively, see downloadable PD F fact sheet at:[email or web address] UNLESS OTHERWIS E INDICATED, ALL TESTING PERFORMED [facility], [facility]. [address] [place] [id number] [place] [address] DIRECTOR: ODILON SUMMERS M.D. CLIA NUMBER [id number] [facility] N O. [id number] SARS-CoV-2 (COVID-19) by RT-PCR (HIGH RISK)2021-10-10 00:00:00 Test Item Value Reference Range Interpretation Comments SARS-CoV-2 INTERPRETATION NEGATIVE (test code = 08281) SOURCE (test code = 58802) NASOPHARYNGEAL SARS-CoV-2 (COVID-19) by RT-PCR (HIGH RISK)2021-10-10 00:00:00 Test Item Value Reference Range Interpretation Comments SARS-CoV-2 INTERPRETATION NEGATIVE (test code = 54734) SOURCE (test code = 68448) NASOPHARYNGEAL SARS-CoV-2 (COVID-19) by RT-PCR (HIGH RISK)2021-10-10 00:00:00 Test Item Value Reference Range Interpretation Comments SARS-CoV-2 INTERPRETATION NEGATIVE (test code = 71370) SOURCE (test code = 11477) NASOPHARYNGEAL SARS-CoV-2 (COVID-19) by RT-PCR (HIGH RISK)2021-10-10 00:00:00 Test Item Value Reference Range Interpretation Comments SARS-CoV-2 INTERPRETATION NEGATIVE (test code = 72271) SOURCE (test code = 64332) NASOPHARYNGEAL SARS-CoV-2 (COVID-19) by RT-PCR (HIGH RISK)2021-10-10 00:00:00 Test Item Value Reference Range Interpretation Comments SARS-CoV-2 INTERPRETATION NEGATIVE (test code = 09144) SOURCE (test code = 56196) NASOPHARYNGEAL SARS-CoV-2 (COVID-19) by RT-PCR (HIGH RISK)2021-10-10 00:00:00 Test Item Value Reference Range Interpretation Comments SARS-CoV-2 INTERPRETATION NEGATIVE (test code = 50589) SOURCE (test code = 52978) NASOPHARYNGEAL SARS-CoV-2 (COVID-19) by RT-PCR (HIGH RISK)2021-10-10 00:00:00 Test Item Value Reference Range Interpretation Comments SARS-CoV-2 INTERPRETATION NEGATIVE (test code = 81636) SOURCE (test code = 29042) NASOPHARYNGEAL SARS-CoV-2 (COVID-19) by RT-PCR (HIGH RISK)2021-10-10 00:00:00 Test Item Value Reference Range Interpretation Comments SARS-CoV-2 INTERPRETATION NEGATIVE (test code = 61028) SOURCE (test code = 93133) NASOPHARYNGEAL SARS-CoV-2 (COVID-19) by RT-PCR (HIGH RISK)2021-10-10 00:00:00 Test Item Value Reference Range Interpretation Comments SARS-CoV-2 INTERPRETATION NEGATIVE (test code = 29270) SOURCE (test code = 74218) NASOPHARYNGEAL SARS-CoV-2 (COVID-19) by RT-PCR (HIGH RISK)2021-10-10 00:00:00 Test Item Value Reference Range Interpretation Comments SARS-CoV-2 INTERPRETATION NEGATIVE (test code = 22043) SOURCE (test code = 14428) NASOPHARYNGEAL SARS-CoV-2 (COVID-19) by RT-PCR (HIGH RISK)2021-10-10 00:00:00 Test Item Value Reference Range Interpretation Comments SARS-CoV-2 INTERPRETATION NEGATIVE (test code = 40115) SOURCE (test code = 25349) NASOPHARYNGEAL SARS-CoV-2 (COVID-19) by RT-PCR (HIGH RISK)2021-10-10 00:00:00 Test Item Value Reference Range Interpretation Comments SARS-CoV-2 INTERPRETATION NEGATIVE (test code = 43658) SOURCE (test code = 71345) NASOPHARYNGEAL SARS-CoV-2 (COVID-19) by RT-PCR (HIGH RISK)2021-10-10 00:00:00 Test Item Value Reference Range Interpretation Comments SARS-CoV-2 INTERPRETATION NEGATIVE (test code = 46252) SOURCE (test code = 57569) NASOPHARYNGEAL SARS-CoV-2 (COVID-19) by RT-PCR (HIGH RISK)2021-10-10 00:00:00 Test Item Value Reference Range Interpretation Comments SARS-CoV-2 INTERPRETATION NEGATIVE (test code = 16225) SOURCE (test code = 62271) NASOPHARYNGEAL SARS-CoV-2 (COVID-19) by RT-PCR (HIGH RISK)2021-10-10 00:00:00 Test Item Value Reference Range Interpretation Comments SARS-CoV-2 INTERPRETATION NEGATIVE (test code = 02430) SOURCE (test code = 31484) NASOPHARYNGEAL SARS-CoV-2 (COVID-19) by RT-PCR (HIGH RISK)2021-10-10 00:00:00 Test Item Value Reference Range Interpretation Comments SARS-CoV-2 INTERPRETATION NEGATIVE (test code = 03270) SOURCE (test code = 04132) NASOPHARYNGEAL SARS-CoV-2 (COVID-19) by RT-PCR (HIGH RISK)2021-10-10 00:00:00 Test Item Value Reference Range Interpretation Comments SARS-CoV-2 INTERPRETATION NEGATIVE (test code = 12915) SOURCE (test code = 18901) NASOPHARYNGEAL SARS-CoV-2 (COVID-19) by RT-PCR (HIGH RISK)2021-10-10 00:00:00 Test Item Value Reference Range Interpretation Comments SARS-CoV-2 INTERPRETATION NEGATIVE (test code = 59969) SOURCE (test code = 51434) NASOPHARYNGEAL SARS-CoV-2 (COVID-19) by RT-PCR (HIGH RISK)2021-10-10 00:00:00 Test Item Value Reference Range Interpretation Comments SARS-CoV-2 INTERPRETATION NEGATIVE (test code = 85782) SOURCE (test code = 02502) NASOPHARYNGEAL SARS-CoV-2 (COVID-19) by RT-PCR (HIGH RISK)2021-10-10 00:00:00 Test Item Value Reference Range Interpretation Comments SARS-CoV-2 INTERPRETATION NEGATIVE (test code = 60880) SOURCE (test code = 04514) NASOPHARYNGEAL SARS-CoV-2 (COVID-19) by RT-PCR (HIGH RISK)2021-10-10 00:00:00 Test Item Value Reference Range Interpretation Comments SARS-CoV-2 INTERPRETATION NEGATIVE (test code = 73160) SOURCE (test code = 20868) NASOPHARYNGEAL CHLAMYDIA, AMPLIFIED, [id number] 00:00:00 Test Item Value Reference Range Interpretation Comments CHLAMYDIA, NAAT (test code = 92735) NEGATIVE CHLAMYDIA, AMPLIFIED, [id number] 00:00:00 Test Item Value Reference Range Interpretation Comments CHLAMYDIA, NAAT (test code = 91559) NEGATIVE CHLAMYDIA, AMPLIFIED, [id number] 00:00:00 Test Item Value Reference Range Interpretation Comments CHLAMYDIA, NAAT (test code = 98524) NEGATIVE CHLAMYDIA, AMPLIFIED, [id number] 00:00:00 Test Item Value Reference Range Interpretation Comments CHLAMYDIA, NAAT (test code = 38132) NEGATIVE GC, AMPLIFIED, [id number] 00:00:00 Test Item Value Reference Range Interpretation Comments GONORRHEA, NAAT (test code = 35473) NEGATIVE GC, AMPLIFIED, [id number] 00:00:00 Test Item Value Reference Range Interpretation Comments GONORRHEA, NAAT (test code = 42065) NEGATIVE GC, AMPLIFIED, [id number] 00:00:00 Test Item Value Reference Range Interpretation Comments GONORRHEA, NAAT (test code = 68783) NEGATIVE GC, AMPLIFIED, [id number] 00:00:00 Test Item Value Reference Range Interpretation Comments GONORRHEA, NAAT (test code = 17266) NEGATIVE HIV AB/AG COMBO RFLX [id number] 00:00:00 Test Item Value Reference Range Interpretation Comments HIV 1/2 4TH GEN, RFLX CONF (test NON-REACTIVE code = 3514) HIV AB/AG COMBO RFLX [id number] 00:00:00 Test Item Value Reference Range Interpretation Comments HIV 1/2 4TH GEN, RFLX CONF (test NON-REACTIVE code = 3514) [id number] 00:00:00 Test Item Value Reference Range Interpretation Comments RPR RESULT (test code = NON-REACTIVE 3501) RPR TITER (test code = 3500) NOT INDIC. TITER [id number] 00:00:00 Test Item Value Reference Range Interpretation Comments RPR RESULT (test code = NON-REACTIVE 3501) RPR TITER (test code = 3500) NOT INDIC. TITER [id number] 00:00:00 Test Item Value Reference Range Interpretation Comments RPR RESULT (test code = NON-REACTIVE 3501) RPR TITER (test code = 3500) NOT INDIC. TITER ACUTE HEPATITIS [id number] 00:00:00 Test Item Value Reference Range Interpretation Comments HEPATITIS A IgM (test code = NON-REACTIVE 63923) HEPATITIS B CORE IgM (test code NON-REACTIVE = 4644) HEPATITIS B SURF AG (test code = NON-REACTIVE 2739) HEPATITIS C ANTIBODY (test code NON-REACTIVE = 4675) INTERPRETATION HEPATITIS A: (NOTE) (test code = 2552) INTERPRETATION HEPATITIS B: (NOTE) (test code = 25676) INTERPRETATION HEPATITIS C: (NOTE) (test code = 38305) ACUTE HEPATITIS [id number] 00:00:00 Test Item Value Reference Range Interpretation Comments HEPATITIS A IgM (test code = NON-REACTIVE 60946) HEPATITIS B CORE IgM (test code NON-REACTIVE = 4644) HEPATITIS B SURF AG (test code = NON-REACTIVE 2739) HEPATITIS C ANTIBODY (test code NON-REACTIVE = 4675) INTERPRETATION HEPATITIS A: (NOTE) (test code = 2552) INTERPRETATION HEPATITIS B: (NOTE) (test code = 10440) INTERPRETATION HEPATITIS C: (NOTE) (test code = 77450) CHLAMYDIA, AMPLIFIED, [id number] 00:00:00 Test Item Value Reference Range Interpretation Comments CHLAMYDIA, NAAT (test code = 49049) NEGATIVE CHLAMYDIA, AMPLIFIED, [id number] 00:00:00 Test Item Value Reference Range Interpretation Comments CHLAMYDIA, NAAT (test code = 81347) NEGATIVE CHLAMYDIA, AMPLIFIED, [id number] 00:00:00 Test Item Value Reference Range Interpretation Comments CHLAMYDIA, NAAT (test code = 28935) NEGATIVE CHLAMYDIA, AMPLIFIED, [id number] 00:00:00 Test Item Value Reference Range Interpretation Comments CHLAMYDIA, NAAT (test code = 52396) NEGATIVE GC, AMPLIFIED, [id number] 00:00:00 Test Item Value Reference Range Interpretation Comments GONORRHEA, NAAT (test code = 53804) NEGATIVE GC, AMPLIFIED, [id number] 00:00:00 Test Item Value Reference Range Interpretation Comments GONORRHEA, NAAT (test code = 70220) NEGATIVE GC, AMPLIFIED, [id number] 00:00:00 Test Item Value Reference Range Interpretation Comments GONORRHEA, NAAT (test code = 52404) NEGATIVE GC, AMPLIFIED, [id number] 00:00:00 Test Item Value Reference Range Interpretation Comments GONORRHEA, NAAT (test code = 16027) NEGATIVE HIV AB/AG COMBO RFLX [id number] 00:00:00 Test Item Value Reference Range Interpretation Comments HIV 1/2 4TH GEN, RFLX CONF (test NON-REACTIVE code = 3514) HIV AB/AG COMBO RFLX [id number] 00:00:00 Test Item Value Reference Range Interpretation Comments HIV 1/2 4TH GEN, RFLX CONF (test NON-REACTIVE code = 3514) [id number] 00:00:00 Test Item Value Reference Range Interpretation Comments RPR RESULT (test code = NON-REACTIVE 3501) RPR TITER (test code = 3500) NOT INDIC. TITER [id number] 00:00:00 Test Item Value Reference Range Interpretation Comments RPR RESULT (test code = NON-REACTIVE 3501) RPR TITER (test code = 3500) NOT INDIC. TITER [id number] 00:00:00 Test Item Value Reference Range Interpretation Comments RPR RESULT (test code = NON-REACTIVE 3501) RPR TITER (test code = 3500) NOT INDIC. TITER ACUTE HEPATITIS [id number] 00:00:00 Test Item Value Reference Range Interpretation Comments HEPATITIS A IgM (test code = NON-REACTIVE 13825) HEPATITIS B CORE IgM (test code NON-REACTIVE = 4644) HEPATITIS B SURF AG (test code = NON-REACTIVE 2739) HEPATITIS C ANTIBODY (test code NON-REACTIVE = 4675) INTERPRETATION HEPATITIS A: (NOTE) (test code = 2552) INTERPRETATION HEPATITIS B: (NOTE) (test code = 68780) INTERPRETATION HEPATITIS C: (NOTE) (test code = 22630) ACUTE HEPATITIS [id number] 00:00:00 Test Item Value Reference Range Interpretation Comments HEPATITIS A IgM (test code = NON-REACTIVE 65511) HEPATITIS B CORE IgM (test code NON-REACTIVE = 4644) HEPATITIS B SURF AG (test code = NON-REACTIVE 3089) HEPATITIS C ANTIBODY (test code NON-REACTIVE = 4675) INTERPRETATION HEPATITIS A: (NOTE) (test code = 2552) INTERPRETATION HEPATITIS B: (NOTE) (test code = 08349) INTERPRETATION HEPATITIS C: (NOTE) (test code = 46625) CHLAMYDIA, AMPLIFIED, [id number] 00:00:00 Test Item Value Reference Range Interpretation Comments CHLAMYDIA, NAAT (test code = 91936) NEGATIVE CHLAMYDIA, AMPLIFIED, [id number] 00:00:00 Test Item Value Reference Range Interpretation Comments CHLAMYDIA, NAAT (test code = 99159) NEGATIVE CHLAMYDIA, AMPLIFIED, [id number] 00:00:00 Test Item Value Reference Range Interpretation Comments CHLAMYDIA, NAAT (test code = 27017) NEGATIVE CHLAMYDIA, AMPLIFIED, [id number] 00:00:00 Test Item Value Reference Range Interpretation Comments CHLAMYDIA, NAAT (test code = 75498) NEGATIVE GC, AMPLIFIED, [id number] 00:00:00 Test Item Value Reference Range Interpretation Comments GONORRHEA, NAAT (test code = 86961) NEGATIVE GC, AMPLIFIED, [id number] 00:00:00 Test Item Value Reference Range Interpretation Comments GONORRHEA, NAAT (test code = 32063) NEGATIVE GC, AMPLIFIED, [id number] 00:00:00 Test Item Value Reference Range Interpretation Comments GONORRHEA, NAAT (test code = 84696) NEGATIVE GC, AMPLIFIED, [id number] 00:00:00 Test Item Value Reference Range Interpretation Comments GONORRHEA, NAAT (test code = 29621) NEGATIVE HIV AB/AG COMBO RFLX [id number] 00:00:00 Test Item Value Reference Range Interpretation Comments HIV 1/2 4TH GEN, RFLX CONF (test NON-REACTIVE code = 3514) HIV AB/AG COMBO RFLX [id number] 00:00:00 Test Item Value Reference Range Interpretation Comments HIV 1/2 4TH GEN, RFLX CONF (test NON-REACTIVE code = 3514) [id number] 00:00:00 Test Item Value Reference Range Interpretation Comments RPR RESULT (test code = NON-REACTIVE 3501) RPR TITER (test code = 3500) NOT INDIC. TITER [id number] 00:00:00 Test Item Value Reference Range Interpretation Comments RPR RESULT (test code = NON-REACTIVE 3501) RPR TITER (test code = 3500) NOT INDIC. TITER [id number] 00:00:00 Test Item Value Reference Range Interpretation Comments RPR RESULT (test code = NON-REACTIVE 3501) RPR TITER (test code = 3500) NOT INDIC. TITER ACUTE HEPATITIS [id number] 00:00:00 Test Item Value Reference Range Interpretation Comments HEPATITIS A IgM (test code = NON-REACTIVE 39090) HEPATITIS B CORE IgM (test code NON-REACTIVE = 4644) HEPATITIS B SURF AG (test code = NON-REACTIVE 2739) HEPATITIS C ANTIBODY (test code NON-REACTIVE = 4675) INTERPRETATION HEPATITIS A: (NOTE) (test code = 2552) INTERPRETATION HEPATITIS B: (NOTE) (test code = 48352) INTERPRETATION HEPATITIS C: (NOTE) (test code = 11894) ACUTE HEPATITIS [id number] 00:00:00 Test Item Value Reference Range Interpretation Comments HEPATITIS A IgM (test code = NON-REACTIVE 68583) HEPATITIS B CORE IgM (test code NON-REACTIVE = 4644) HEPATITIS B SURF AG (test code = NON-REACTIVE 2739) HEPATITIS C ANTIBODY (test code NON-REACTIVE = 4675) INTERPRETATION HEPATITIS A: (NOTE) (test code = 2552) INTERPRETATION HEPATITIS B: (NOTE) (test code = 04873) INTERPRETATION HEPATITIS C: (NOTE) (test code = 66724) CHLAMYDIA, AMPLIFIED, [id number] 00:00:00 Test Item Value Reference Range Interpretation Comments CHLAMYDIA, NAAT (test code = 56408) NEGATIVE CHLAMYDIA, AMPLIFIED, [id number] 00:00:00 Test Item Value Reference Range Interpretation Comments CHLAMYDIA, NAAT (test code = 98558) NEGATIVE CHLAMYDIA, AMPLIFIED, [id number] 00:00:00 Test Item Value Reference Range Interpretation Comments CHLAMYDIA, NAAT (test code = 76678) NEGATIVE CHLAMYDIA, AMPLIFIED, [id number] 00:00:00 Test Item Value Reference Range Interpretation Comments CHLAMYDIA, NAAT (test code = 68045) NEGATIVE GC, AMPLIFIED, [id number] 00:00:00 Test Item Value Reference Range Interpretation Comments GONORRHEA, NAAT (test code = 38852) NEGATIVE GC, AMPLIFIED, [id number] 00:00:00 Test Item Value Reference Range Interpretation Comments GONORRHEA, NAAT (test code = 04263) NEGATIVE GC, AMPLIFIED, [id number] 00:00:00 Test Item Value Reference Range Interpretation Comments GONORRHEA, NAAT (test code = 10997) NEGATIVE GC, AMPLIFIED, [id number] 00:00:00 Test Item Value Reference Range Interpretation Comments GONORRHEA, NAAT (test code = 76785) NEGATIVE HIV AB/AG COMBO RFLX [id number] 00:00:00 Test Item Value Reference Range Interpretation Comments HIV 1/2 4TH GEN, RFLX CONF (test NON-REACTIVE code = 3514) HIV AB/AG COMBO RFLX [id number] 00:00:00 Test Item Value Reference Range Interpretation Comments HIV 1/2 4TH GEN, RFLX CONF (test NON-REACTIVE code = 3514) [id number] 00:00:00 Test Item Value Reference Range Interpretation Comments RPR RESULT (test code = NON-REACTIVE 3501) RPR TITER (test code = 3500) NOT INDIC. TITER [id number] 00:00:00 Test Item Value Reference Range Interpretation Comments RPR RESULT (test code = NON-REACTIVE 3501) RPR TITER (test code = 3500) NOT INDIC. TITER [id number] 00:00:00 Test Item Value Reference Range Interpretation Comments RPR RESULT (test code = NON-REACTIVE 3501) RPR TITER (test code = 3500) NOT INDIC. TITER ACUTE HEPATITIS [id number] 00:00:00 Test Item Value Reference Range Interpretation Comments HEPATITIS A IgM (test code = NON-REACTIVE 02869) HEPATITIS B CORE IgM (test code NON-REACTIVE = 3144) HEPATITIS B SURF AG (test code = NON-REACTIVE 0059) HEPATITIS C ANTIBODY (test code NON-REACTIVE = 4675) INTERPRETATION HEPATITIS A: (NOTE) (test code = 2552) INTERPRETATION HEPATITIS B: (NOTE) (test code = 03194) INTERPRETATION HEPATITIS C: (NOTE) (test code = 29706) ACUTE HEPATITIS [id number] 00:00:00 Test Item Value Reference Range Interpretation Comments HEPATITIS A IgM (test code = NON-REACTIVE 86076) HEPATITIS B CORE IgM (test code NON-REACTIVE = 4644) HEPATITIS B SURF AG (test code = NON-REACTIVE 2739) HEPATITIS C ANTIBODY (test code NON-REACTIVE = 4675) INTERPRETATION HEPATITIS A: (NOTE) (test code = 2552) INTERPRETATION HEPATITIS B: (NOTE) (test code = 50246) INTERPRETATION HEPATITIS C: (NOTE) (test code = 75956) CHLAMYDIA, AMPLIFIED, [id number] 00:00:00 Test Item Value Reference Range Interpretation Comments CHLAMYDIA, NAAT (test code = 28338) NEGATIVE CHLAMYDIA, AMPLIFIED, [id number] 00:00:00 Test Item Value Reference Range Interpretation Comments CHLAMYDIA, NAAT (test code = 19074) NEGATIVE CHLAMYDIA, AMPLIFIED, [id number] 00:00:00 Test Item Value Reference Range Interpretation Comments CHLAMYDIA, NAAT (test code = 72415) NEGATIVE CHLAMYDIA, AMPLIFIED, [id number] 00:00:00 Test Item Value Reference Range Interpretation Comments CHLAMYDIA, NAAT (test code = 92721) NEGATIVE GC, AMPLIFIED, [id number] 00:00:00 Test Item Value Reference Range Interpretation Comments GONORRHEA, NAAT (test code = 20154) NEGATIVE GC, AMPLIFIED, [id number] 00:00:00 Test Item Value Reference Range Interpretation Comments GONORRHEA, NAAT (test code = 94457) NEGATIVE GC, AMPLIFIED, [id number] 00:00:00 Test Item Value Reference Range Interpretation Comments GONORRHEA, NAAT (test code = 54118) NEGATIVE GC, AMPLIFIED, [id number] 00:00:00 Test Item Value Reference Range Interpretation Comments GONORRHEA, NAAT (test code = 76064) NEGATIVE HIV AB/AG COMBO RFLX [id number] 00:00:00 Test Item Value Reference Range Interpretation Comments HIV 1/2 4TH GEN, RFLX CONF (test NON-REACTIVE code = 3514) HIV AB/AG COMBO RFLX [id number] 00:00:00 Test Item Value Reference Range Interpretation Comments HIV 1/2 4TH GEN, RFLX CONF (test NON-REACTIVE code = 3514) [id number] 00:00:00 Test Item Value Reference Range Interpretation Comments RPR RESULT (test code = NON-REACTIVE 3501) RPR TITER (test code = 3500) NOT INDIC. TITER [id number] 00:00:00 Test Item Value Reference Range Interpretation Comments RPR RESULT (test code = NON-REACTIVE 3501) RPR TITER (test code = 3500) NOT INDIC. TITER [id number] 00:00:00 Test Item Value Reference Range Interpretation Comments RPR RESULT (test code = NON-REACTIVE 3501) RPR TITER (test code = 3500) NOT INDIC. TITER ACUTE HEPATITIS [id number] 00:00:00 Test Item Value Reference Range Interpretation Comments HEPATITIS A IgM (test code = NON-REACTIVE 39780) HEPATITIS B CORE IgM (test code NON-REACTIVE = 4644) HEPATITIS B SURF AG (test code = NON-REACTIVE 2739) HEPATITIS C ANTIBODY (test code NON-REACTIVE = 4675) INTERPRETATION HEPATITIS A: (NOTE) (test code = 2552) INTERPRETATION HEPATITIS B: (NOTE) (test code = 75816) INTERPRETATION HEPATITIS C: (NOTE) (test code = 94966) ACUTE HEPATITIS [id number] 00:00:00 Test Item Value Reference Range Interpretation Comments HEPATITIS A IgM (test code = NON-REACTIVE 44715) HEPATITIS B CORE IgM (test code NON-REACTIVE = 4644) HEPATITIS B SURF AG (test code = NON-REACTIVE 2739) HEPATITIS C ANTIBODY (test code NON-REACTIVE = 4675) INTERPRETATION HEPATITIS A: (NOTE) (test code = 2552) INTERPRETATION HEPATITIS B: (NOTE) (test code = 66702) INTERPRETATION HEPATITIS C: (NOTE) (test code = 71489) CHLAMYDIA, AMPLIFIED, [id number] 00:00:00 Test Item Value Reference Range Interpretation Comments CHLAMYDIA, NAAT (test code = 22063) NEGATIVE CHLAMYDIA, AMPLIFIED, [id number] 00:00:00 Test Item Value Reference Range Interpretation Comments CHLAMYDIA, NAAT (test code = 78543) NEGATIVE CHLAMYDIA, AMPLIFIED, [id number] 00:00:00 Test Item Value Reference Range Interpretation Comments CHLAMYDIA, NAAT (test code = 73655) NEGATIVE CHLAMYDIA, AMPLIFIED, [id number] 00:00:00 Test Item Value Reference Range Interpretation Comments CHLAMYDIA, NAAT (test code = 30429) NEGATIVE GC, AMPLIFIED, [id number] 00:00:00 Test Item Value Reference Range Interpretation Comments GONORRHEA, NAAT (test code = 71316) NEGATIVE GC, AMPLIFIED, [id number] 00:00:00 Test Item Value Reference Range Interpretation Comments GONORRHEA, NAAT (test code = 00273) NEGATIVE GC, AMPLIFIED, [id number] 00:00:00 Test Item Value Reference Range Interpretation Comments GONORRHEA, NAAT (test code = 40006) NEGATIVE GC, AMPLIFIED, [id number] 00:00:00 Test Item Value Reference Range Interpretation Comments GONORRHEA, NAAT (test code = 68650) NEGATIVE HIV AB/AG COMBO RFLX [id number] 00:00:00 Test Item Value Reference Range Interpretation Comments HIV 1/2 4TH GEN, RFLX CONF (test NON-REACTIVE code = 3514) HIV AB/AG COMBO RFLX [id number] 00:00:00 Test Item Value Reference Range Interpretation Comments HIV 1/2 4TH GEN, RFLX CONF (test NON-REACTIVE code = 3514) [id number] 00:00:00 Test Item Value Reference Range Interpretation Comments RPR RESULT (test code = NON-REACTIVE 3501) RPR TITER (test code = 3500) NOT INDIC. TITER [id number] 00:00:00 Test Item Value Reference Range Interpretation Comments RPR RESULT (test code = NON-REACTIVE 3501) RPR TITER (test code = 3500) NOT INDIC. TITER [id number] 00:00:00 Test Item Value Reference Range Interpretation Comments RPR RESULT (test code = NON-REACTIVE 3501) RPR TITER (test code = 3500) NOT INDIC. TITER ACUTE HEPATITIS [id number] 00:00:00 Test Item Value Reference Range Interpretation Comments HEPATITIS A IgM (test code = NON-REACTIVE 88133) HEPATITIS B CORE IgM (test code NON-REACTIVE = 4644) HEPATITIS B SURF AG (test code = NON-REACTIVE 2739) HEPATITIS C ANTIBODY (test code NON-REACTIVE = 9775) INTERPRETATION HEPATITIS A: (NOTE) (test code = 2552) INTERPRETATION HEPATITIS B: (NOTE) (test code = 08081) INTERPRETATION HEPATITIS C: (NOTE) (test code = 46115) ACUTE HEPATITIS [id number] 00:00:00 Test Item Value Reference Range Interpretation Comments HEPATITIS A IgM (test code = NON-REACTIVE 26487) HEPATITIS B CORE IgM (test code NON-REACTIVE = 4644) HEPATITIS B SURF AG (test code = NON-REACTIVE 2739) HEPATITIS C ANTIBODY (test code NON-REACTIVE = 4675) INTERPRETATION HEPATITIS A: (NOTE) (test code = 2552) INTERPRETATION HEPATITIS B: (NOTE) (test code = 10689) INTERPRETATION HEPATITIS C: (NOTE) (test code = 33743) CHLAMYDIA, AMPLIFIED, [id number] 00:00:00 Test Item Value Reference Range Interpretation Comments CHLAMYDIA, NAAT (test code = 92008) NEGATIVE CHLAMYDIA, AMPLIFIED, [id number] 00:00:00 Test Item Value Reference Range Interpretation Comments CHLAMYDIA, NAAT (test code = 97995) NEGATIVE CHLAMYDIA, AMPLIFIED, [id number] 00:00:00 Test Item Value Reference Range Interpretation Comments CHLAMYDIA, NAAT (test code = 93820) NEGATIVE CHLAMYDIA, AMPLIFIED, [id number] 00:00:00 Test Item Value Reference Range Interpretation Comments CHLAMYDIA, NAAT (test code = 06181) NEGATIVE GC, AMPLIFIED, [id number] 00:00:00 Test Item Value Reference Range Interpretation Comments GONORRHEA, NAAT (test code = 80129) NEGATIVE GC, AMPLIFIED, [id number] 00:00:00 Test Item Value Reference Range Interpretation Comments GONORRHEA, NAAT (test code = 13888) NEGATIVE GC, AMPLIFIED, [id number] 00:00:00 Test Item Value Reference Range Interpretation Comments GONORRHEA, NAAT (test code = 01046) NEGATIVE GC, AMPLIFIED, [id number] 00:00:00 Test Item Value Reference Range Interpretation Comments GONORRHEA, NAAT (test code = 14433) NEGATIVE HIV AB/AG COMBO RFLX [id number] 00:00:00 Test Item Value Reference Range Interpretation Comments HIV 1/2 4TH GEN, RFLX CONF (test NON-REACTIVE code = 3514) HIV AB/AG COMBO RFLX [id number] 00:00:00 Test Item Value Reference Range Interpretation Comments HIV 1/2 4TH GEN, RFLX CONF (test NON-REACTIVE code = 3514) [id number] 00:00:00 Test Item Value Reference Range Interpretation Comments RPR RESULT (test code = NON-REACTIVE 3501) RPR TITER (test code = 3500) NOT INDIC. TITER [id number] 00:00:00 Test Item Value Reference Range Interpretation Comments RPR RESULT (test code = NON-REACTIVE 3501) RPR TITER (test code = 3500) NOT INDIC. TITER [id number] 00:00:00 Test Item Value Reference Range Interpretation Comments RPR RESULT (test code = NON-REACTIVE 3501) RPR TITER (test code = 3500) NOT INDIC. TITER ACUTE HEPATITIS [id number] 00:00:00 Test Item Value Reference Range Interpretation Comments HEPATITIS A IgM (test code = NON-REACTIVE 07443) HEPATITIS B CORE IgM (test code NON-REACTIVE = 4644) HEPATITIS B SURF AG (test code = NON-REACTIVE 2739) HEPATITIS C ANTIBODY (test code NON-REACTIVE = 4675) INTERPRETATION HEPATITIS A: (NOTE) (test code = 2552) INTERPRETATION HEPATITIS B: (NOTE) (test code = 29891) INTERPRETATION HEPATITIS C: (NOTE) (test code = 62052) ACUTE HEPATITIS [id number] 00:00:00 Test Item Value Reference Range Interpretation Comments HEPATITIS A IgM (test code = NON-REACTIVE 86783) HEPATITIS B CORE IgM (test code NON-REACTIVE = 4644) HEPATITIS B SURF AG (test code = NON-REACTIVE 2739) HEPATITIS C ANTIBODY (test code NON-REACTIVE = 4675) INTERPRETATION HEPATITIS A: (NOTE) (test code = 2552) INTERPRETATION HEPATITIS B: (NOTE) (test code = 78093) INTERPRETATION HEPATITIS C: (NOTE) (test code = 45637) CHLAMYDIA, AMPLIFIED, [id number] 00:00:00 Test Item Value Reference Range Interpretation Comments CHLAMYDIA, NAAT (test code = 81006) NEGATIVE CHLAMYDIA, AMPLIFIED, [id number] 00:00:00 Test Item Value Reference Range Interpretation Comments CHLAMYDIA, NAAT (test code = 87487) NEGATIVE CHLAMYDIA, AMPLIFIED, [id number] 00:00:00 Test Item Value Reference Range Interpretation Comments CHLAMYDIA, NAAT (test code = 47284) NEGATIVE CHLAMYDIA, AMPLIFIED, [id number] 00:00:00 Test Item Value Reference Range Interpretation Comments CHLAMYDIA, NAAT (test code = 10380) NEGATIVE CHLAMYDIA, AMPLIFIED, [id number] 00:00:00 Test Item Value Reference Range Interpretation Comments CHLAMYDIA, NAAT (test code = 83245) NEGATIVE CHLAMYDIA, AMPLIFIED, [id number] 00:00:00 Test Item Value Reference Range Interpretation Comments CHLAMYDIA, NAAT (test code = 84093) NEGATIVE GC, AMPLIFIED, [id number] 00:00:00 Test Item Value Reference Range Interpretation Comments GONORRHEA, NAAT (test code = 88946) NEGATIVE GC, AMPLIFIED, [id number] 00:00:00 Test Item Value Reference Range Interpretation Comments GONORRHEA, NAAT (test code = 36727) NEGATIVE GC, AMPLIFIED, [id number] 00:00:00 Test Item Value Reference Range Interpretation Comments GONORRHEA, NAAT (test code = 99401) NEGATIVE GC, AMPLIFIED, [id number] 00:00:00 Test Item Value Reference Range Interpretation Comments GONORRHEA, NAAT (test code = 89335) NEGATIVE HIV AB/AG COMBO RFLX [id number] 00:00:00 Test Item Value Reference Range Interpretation Comments HIV 1/2 4TH GEN, RFLX CONF (test NON-REACTIVE code = 3514) HIV AB/AG COMBO RFLX [id number] 00:00:00 Test Item Value Reference Range Interpretation Comments HIV 1/2 4TH GEN, RFLX CONF (test NON-REACTIVE code = 3514) [id number] 00:00:00 Test Item Value Reference Range Interpretation Comments RPR RESULT (test code = NON-REACTIVE 3501) RPR TITER (test code = 3500) NOT INDIC. TITER [id number] 00:00:00 Test Item Value Reference Range Interpretation Comments RPR RESULT (test code = NON-REACTIVE 3501) RPR TITER (test code = 3500) NOT INDIC. TITER [id number] 00:00:00 Test Item Value Reference Range Interpretation Comments RPR RESULT (test code = NON-REACTIVE 3501) RPR TITER (test code = 3500) NOT INDIC. TITER ACUTE HEPATITIS [id number] 00:00:00 Test Item Value Reference Range Interpretation Comments HEPATITIS A IgM (test code = NON-REACTIVE 76715) HEPATITIS B CORE IgM (test code NON-REACTIVE = 4644) HEPATITIS B SURF AG (test code = NON-REACTIVE 2739) HEPATITIS C ANTIBODY (test code NON-REACTIVE = 4675) INTERPRETATION HEPATITIS A: (NOTE) (test code = 2552) INTERPRETATION HEPATITIS B: (NOTE) (test code = 68347) INTERPRETATION HEPATITIS C: (NOTE) (test code = 10484) ACUTE HEPATITIS [id number] 00:00:00 Test Item Value Reference Range Interpretation Comments HEPATITIS A IgM (test code = NON-REACTIVE 57281) HEPATITIS B CORE IgM (test code NON-REACTIVE = 4644) HEPATITIS B SURF AG (test code = NON-REACTIVE 2739) HEPATITIS C ANTIBODY (test code NON-REACTIVE = 4675) INTERPRETATION HEPATITIS A: (NOTE) (test code = 2552) INTERPRETATION HEPATITIS B: (NOTE) (test code = 38881) INTERPRETATION HEPATITIS C: (NOTE) (test code = 67418) GC, AMPLIFIED, [id number] 00:00:00 Test Item Value Reference Range Interpretation Comments GONORRHEA, NAAT (test code = 22086) NEGATIVE GC, AMPLIFIED, [id number] 00:00:00 Test Item Value Reference Range Interpretation Comments GONORRHEA, NAAT (test code = 43113) NEGATIVE HIV AB/AG COMBO RFLX [id number] 00:00:00 Test Item Value Reference Range Interpretation Comments HIV 1/2 4TH GEN, RFLX CONF (test NON-REACTIVE code = 3514) CHLAMYDIA, AMPLIFIED, [id number] 00:00:00 Test Item Value Reference Range Interpretation Comments CHLAMYDIA, NAAT (test code = 16755) NEGATIVE [id number] 00:00:00 Test Item Value Reference Range Interpretation Comments RPR RESULT (test code = NON-REACTIVE 3501) RPR TITER (test code = 3500) NOT INDIC. TITER CHLAMYDIA, AMPLIFIED, [id number] 00:00:00 Test Item Value Reference Range Interpretation Comments CHLAMYDIA, NAAT (test code = 74832) NEGATIVE CHLAMYDIA, AMPLIFIED, [id number] 00:00:00 Test Item Value Reference Range Interpretation Comments CHLAMYDIA, NAAT (test code = 61694) NEGATIVE [id number] 00:00:00 Test Item Value Reference Range Interpretation Comments RPR RESULT (test code = NON-REACTIVE 3501) RPR TITER (test code = 3500) NOT INDIC. TITER CHLAMYDIA, AMPLIFIED, [id number] 00:00:00 Test Item Value Reference Range Interpretation Comments CHLAMYDIA, NAAT (test code = 31343) NEGATIVE GC, AMPLIFIED, [id number] 00:00:00 Test Item Value Reference Range Interpretation Comments GONORRHEA, NAAT (test code = 02468) NEGATIVE GC, AMPLIFIED, [id number] 00:00:00 Test Item Value Reference Range Interpretation Comments GONORRHEA, NAAT (test code = 13945) NEGATIVE GC, AMPLIFIED, [id number] 00:00:00 Test Item Value Reference Range Interpretation Comments GONORRHEA, NAAT (test code = 57708) NEGATIVE GC, AMPLIFIED, [id number] 00:00:00 Test Item Value Reference Range Interpretation Comments GONORRHEA, NAAT (test code = 79249) NEGATIVE HIV AB/AG COMBO RFLX [id number] 00:00:00 Test Item Value Reference Range Interpretation Comments HIV 1/2 4TH GEN, RFLX CONF (test NON-REACTIVE code = 3514) ACUTE HEPATITIS [id number] 00:00:00 Test Item Value Reference Range Interpretation Comments HEPATITIS A IgM (test code = NON-REACTIVE 47848) HEPATITIS B CORE IgM (test code NON-REACTIVE = 4644) HEPATITIS B SURF AG (test code = NON-REACTIVE 8399) HEPATITIS C ANTIBODY (test code NON-REACTIVE = 4675) INTERPRETATION HEPATITIS A: (NOTE) (test code = 2552) INTERPRETATION HEPATITIS B: (NOTE) (test code = 44754) INTERPRETATION HEPATITIS C: (NOTE) (test code = 94312) HIV AB/AG COMBO RFLX [id number] 00:00:00 Test Item Value Reference Range Interpretation Comments HIV 1/2 4TH GEN, RFLX CONF (test NON-REACTIVE code = 3514) [id number] 00:00:00 Test Item Value Reference Range Interpretation Comments RPR RESULT (test code = NON-REACTIVE 3501) RPR TITER (test code = 3500) NOT INDIC. TITER [id number] 00:00:00 Test Item Value Reference Range Interpretation Comments RPR RESULT (test code = NON-REACTIVE 3501) RPR TITER (test code = 3500) NOT INDIC. TITER [id number] 00:00:00 Test Item Value Reference Range Interpretation Comments RPR RESULT (test code = NON-REACTIVE 3501) RPR TITER (test code = 3500) NOT INDIC. TITER ACUTE HEPATITIS [id number] 00:00:00 Test Item Value Reference Range Interpretation Comments HEPATITIS A IgM (test code = NON-REACTIVE 19717) HEPATITIS B CORE IgM (test code NON-REACTIVE = 4644) HEPATITIS B SURF AG (test code = NON-REACTIVE 2739) HEPATITIS C ANTIBODY (test code NON-REACTIVE = 4675) INTERPRETATION HEPATITIS A: (NOTE) (test code = 2552) INTERPRETATION HEPATITIS B: (NOTE) (test code = 75337) INTERPRETATION HEPATITIS C: (NOTE) (test code = 59587) ACUTE HEPATITIS [id number] 00:00:00 Test Item Value Reference Range Interpretation Comments HEPATITIS A IgM (test code = NON-REACTIVE 70155) HEPATITIS B CORE IgM (test code NON-REACTIVE = 4644) HEPATITIS B SURF AG (test code = NON-REACTIVE 2739) HEPATITIS C ANTIBODY (test code NON-REACTIVE = 4675) INTERPRETATION HEPATITIS A: (NOTE) (test code = 2552) INTERPRETATION HEPATITIS B: (NOTE) (test code = 38354) INTERPRETATION HEPATITIS C: (NOTE) (test code = 30897) CHLAMYDIA, AMPLIFIED, [id number] 00:00:00 Test Item Value Reference Range Interpretation Comments CHLAMYDIA, NAAT (test code = 74399) NEGATIVE CHLAMYDIA, AMPLIFIED, [id number] 00:00:00 Test Item Value Reference Range Interpretation Comments CHLAMYDIA, NAAT (test code = 09284) NEGATIVE CHLAMYDIA, AMPLIFIED, [id number] 00:00:00 Test Item Value Reference Range Interpretation Comments CHLAMYDIA, NAAT (test code = 35164) NEGATIVE CHLAMYDIA, AMPLIFIED, [id number] 00:00:00 Test Item Value Reference Range Interpretation Comments CHLAMYDIA, NAAT (test code = 21005) NEGATIVE GC, AMPLIFIED, [id number] 00:00:00 Test Item Value Reference Range Interpretation Comments GONORRHEA, NAAT (test code = 88337) NEGATIVE GC, AMPLIFIED, [id number] 00:00:00 Test Item Value Reference Range Interpretation Comments GONORRHEA, NAAT (test code = 57740) NEGATIVE GC, AMPLIFIED, [id number] 00:00:00 Test Item Value Reference Range Interpretation Comments GONORRHEA, NAAT (test code = 05482) NEGATIVE GC, AMPLIFIED, [id number] 00:00:00 Test Item Value Reference Range Interpretation Comments GONORRHEA, NAAT (test code = 64320) NEGATIVE HIV AB/AG COMBO RFLX [id number] 00:00:00 Test Item Value Reference Range Interpretation Comments HIV 1/2 4TH GEN, RFLX CONF (test NON-REACTIVE code = 3514) HIV AB/AG COMBO RFLX [id number] 00:00:00 Test Item Value Reference Range Interpretation Comments HIV 1/2 4TH GEN, RFLX CONF (test NON-REACTIVE code = 3514) [id number] 00:00:00 Test Item Value Reference Range Interpretation Comments RPR RESULT (test code = NON-REACTIVE 3501) RPR TITER (test code = 3500) NOT INDIC. TITER [id number] 00:00:00 Test Item Value Reference Range Interpretation Comments RPR RESULT (test code = NON-REACTIVE 3501) RPR TITER (test code = 3500) NOT INDIC. TITER [id number] 00:00:00 Test Item Value Reference Range Interpretation Comments RPR RESULT (test code = NON-REACTIVE 3501) RPR TITER (test code = 3500) NOT INDIC. TITER ACUTE HEPATITIS [id number] 00:00:00 Test Item Value Reference Range Interpretation Comments HEPATITIS A IgM (test code = NON-REACTIVE ) HEPATITIS B CORE IgM (test code NON-REACTIVE = 4644) HEPATITIS B SURF AG (test code = NON-REACTIVE 2739) HEPATITIS C ANTIBODY (test code NON-REACTIVE = 4675) INTERPRETATION HEPATITIS A: (NOTE) (test code = 2552) INTERPRETATION HEPATITIS B: (NOTE) (test code = 24330) INTERPRETATION HEPATITIS C: (NOTE) (test code = 83091) ACUTE HEPATITIS [id number] 00:00:00 Test Item Value Reference Range Interpretation Comments HEPATITIS A IgM (test code = NON-REACTIVE 81901) HEPATITIS B CORE IgM (test code NON-REACTIVE = 4644) HEPATITIS B SURF AG (test code = NON-REACTIVE 4269) HEPATITIS C ANTIBODY (test code NON-REACTIVE = 4675) INTERPRETATION HEPATITIS A: (NOTE) (test code = 2552) INTERPRETATION HEPATITIS B: (NOTE) (test code = 02285) INTERPRETATION HEPATITIS C: (NOTE) (test code = 18869) CULTURE, [id number] 00:00:00 Test Item Value Reference Range Interpretation Comments CULTURE, URINE (test SPECIMEN NUMBER: code = 85074) [id number] CULTURE, [id number] 00:00:00 Test Item Value Reference Range Interpretation Comments CULTURE, URINE (test SPECIMEN NUMBER: code = 95546) [id number] CULTURE, [id number] 00:00:00 Test Item Value Reference Range Interpretation Comments CULTURE, URINE (test SPECIMEN NUMBER: code = 04482) [id number] CULTURE, [id number] 00:00:00 Test Item Value Reference Range Interpretation Comments CULTURE, URINE (test SPECIMEN NUMBER: code = 54630) [id number] CULTURE, [id number] 00:00:00 Test Item Value Reference Range Interpretation Comments CULTURE, URINE (test SPECIMEN NUMBER: code = 24151) [id number] CULTURE, [id number] 00:00:00 Test Item Value Reference Range Interpretation Comments CULTURE, URINE (test SPECIMEN NUMBER: code = 28567) [id number] CULTURE, [id number] 00:00:00 Test Item Value Reference Range Interpretation Comments CULTURE, URINE (test SPECIMEN NUMBER: code = 47374) [id number] CULTURE, [id number] 00:00:00 Test Item Value Reference Range Interpretation Comments CULTURE, URINE (test SPECIMEN NUMBER: code = 21062) [id number] CULTURE, [id number] 00:00:00 Test Item Value Reference Range Interpretation Comments CULTURE, URINE (test SPECIMEN NUMBER: code = 57688) [id number] CULTURE, [id number] 00:00:00 Test Item Value Reference Range Interpretation Comments CULTURE, URINE (test SPECIMEN NUMBER: code = 96864) [id number] CULTURE, [id number] 00:00:00 Test Item Value Reference Range Interpretation Comments CULTURE, URINE (test SPECIMEN NUMBER: code = 53537) [id number] CULTURE, [id number] 00:00:00 Test Item Value Reference Range Interpretation Comments CULTURE, URINE (test SPECIMEN NUMBER: code = 10125) [id number] CULTURE, [id number] 00:00:00 Test Item Value Reference Range Interpretation Comments CULTURE, URINE (test SPECIMEN NUMBER: code = 78840) [id number] CULTURE, [id number] 00:00:00 Test Item Value Reference Range Interpretation Comments CULTURE, URINE (test SPECIMEN NUMBER: code = 31217) [id number] CULTURE, [id number] 00:00:00 Test Item Value Reference Range Interpretation Comments CULTURE, URINE (test SPECIMEN NUMBER: code = 76106) [id number] CULTURE, [id number] 00:00:00 Test Item Value Reference Range Interpretation Comments CULTURE, URINE (test SPECIMEN NUMBER: code = 31587) [id number] CULTURE, [id number] 00:00:00 Test Item Value Reference Range Interpretation Comments CULTURE, URINE (test SPECIMEN NUMBER: code = 80168) [id number] CULTURE, [id number] 00:00:00 Test Item Value Reference Range Interpretation Comments CULTURE, URINE (test SPECIMEN NUMBER: code = 53696) [id number] CULTURE, [id number] 00:00:00 Test Item Value Reference Range Interpretation Comments CULTURE, URINE (test SPECIMEN NUMBER: code = 20512) [id number] CULTURE, [id number] 00:00:00 Test Item Value Reference Range Interpretation Comments CULTURE, URINE (test SPECIMEN NUMBER: code = 08448) [id number] CULTURE, [id number] 00:00:00 Test Item Value Reference Range Interpretation Comments CULTURE, URINE (test SPECIMEN NUMBER: code = 65402) [id number] VAGINAL PATHOGENS DNA [id number] 00:00:00 Test Item Value Reference Range Interpretation Comments RAMESH SPECIES (test code = ) POSITIVE G. VAGINALIS (test code = ) POSITIVE T. VAGINALIS (test code = ) NEGATIVE VAGINAL PATHOGENS DNA [id number] 00:00:00 Test Item Value Reference Range Interpretation Comments RAMESH SPECIES (test code = ) POSITIVE G. VAGINALIS (test code = ) POSITIVE T. VAGINALIS (test code = ) NEGATIVE VAGINAL PATHOGENS DNA [id number] 00:00:00 Test Item Value Reference Range Interpretation Comments RAMESH SPECIES (test code = 46955) POSITIVE G. VAGINALIS (test code = 56305) POSITIVE T. VAGINALIS (test code = 43532) NEGATIVE VAGINAL PATHOGENS DNA [id number] 00:00:00 Test Item Value Reference Range Interpretation Comments RAMESH SPECIES (test code = 47687) POSITIVE G. VAGINALIS (test code = 22467) POSITIVE T. VAGINALIS (test code = 30112) NEGATIVE VAGINAL PATHOGENS DNA [id number] 00:00:00 Test Item Value Reference Range Interpretation Comments RAMESH SPECIES (test code = 15263) POSITIVE G. VAGINALIS (test code = 62128) POSITIVE T. VAGINALIS (test code = 40595) NEGATIVE VAGINAL PATHOGENS DNA [id number] 00:00:00 Test Item Value Reference Range Interpretation Comments RAMESH SPECIES (test code = 19222) POSITIVE G. VAGINALIS (test code = 00688) POSITIVE T. VAGINALIS (test code = 07546) NEGATIVE VAGINAL PATHOGENS DNA [id number] 00:00:00 Test Item Value Reference Range Interpretation Comments RAMESH SPECIES (test code = 48315) POSITIVE G. VAGINALIS (test code = 95302) POSITIVE T. VAGINALIS (test code = 98442) NEGATIVE VAGINAL PATHOGENS DNA [id number] 00:00:00 Test Item Value Reference Range Interpretation Comments RAMESH SPECIES (test code = 63838) POSITIVE G. VAGINALIS (test code = 97442) POSITIVE T. VAGINALIS (test code = 38875) NEGATIVE VAGINAL PATHOGENS DNA [id number] 00:00:00 Test Item Value Reference Range Interpretation Comments RAMESH SPECIES (test code = 33724) POSITIVE G. VAGINALIS (test code = 26619) POSITIVE T. VAGINALIS (test code = 71829) NEGATIVE VAGINAL PATHOGENS DNA [id number] 00:00:00 Test Item Value Reference Range Interpretation Comments RAMESH SPECIES (test code = 53040) POSITIVE G. VAGINALIS (test code = 38019) POSITIVE T. VAGINALIS (test code = 64832) NEGATIVE VAGINAL PATHOGENS DNA [id number] 00:00:00 Test Item Value Reference Range Interpretation Comments RAMESH SPECIES (test code = 08184) POSITIVE G. VAGINALIS (test code = 74445) POSITIVE T. VAGINALIS (test code = ) NEGATIVE VAGINAL PATHOGENS DNA [id number] 00:00:00 Test Item Value Reference Range Interpretation Comments RAMESH SPECIES (test code = 57464) POSITIVE G. VAGINALIS (test code = 88343) POSITIVE T. VAGINALIS (test code = 70679) NEGATIVE VAGINAL PATHOGENS DNA [id number] 00:00:00 Test Item Value Reference Range Interpretation Comments RAMESH SPECIES (test code = 45044) POSITIVE G. VAGINALIS (test code = 55408) POSITIVE T. VAGINALIS (test code = 71472) NEGATIVE VAGINAL PATHOGENS DNA [id number] 00:00:00 Test Item Value Reference Range Interpretation Comments RAMESH SPECIES (test code = 64376) POSITIVE G. VAGINALIS (test code = 12842) POSITIVE T. VAGINALIS (test code = 36885) NEGATIVE VAGINAL PATHOGENS DNA [id number] 00:00:00 Test Item Value Reference Range Interpretation Comments RAMESH SPECIES (test code = 08626) POSITIVE G. VAGINALIS (test code = 31871) POSITIVE T. VAGINALIS (test code = 49994) NEGATIVE VAGINAL PATHOGENS DNA [id number] 00:00:00 Test Item Value Reference Range Interpretation Comments RAMESH SPECIES (test code = 81997) POSITIVE G. VAGINALIS (test code = 33893) POSITIVE T. VAGINALIS (test code = 65080) NEGATIVE VAGINAL PATHOGENS DNA [id number] 00:00:00 Test Item Value Reference Range Interpretation Comments RAMESH SPECIES (test code = 34103) POSITIVE G. VAGINALIS (test code = 14908) POSITIVE T. VAGINALIS (test code = 84710) NEGATIVE VAGINAL PATHOGENS DNA [id number] 00:00:00 Test Item Value Reference Range Interpretation Comments RAMESH SPECIES (test code = 50403) POSITIVE G. VAGINALIS (test code = 13820) POSITIVE T. VAGINALIS (test code = 17554) NEGATIVE VAGINAL PATHOGENS DNA [id number] 00:00:00 Test Item Value Reference Range Interpretation Comments RAMESH SPECIES (test code = 16144) POSITIVE G. VAGINALIS (test code = 07342) POSITIVE T. VAGINALIS (test code = 83558) NEGATIVE VAGINAL PATHOGENS DNA [id number] 00:00:00 Test Item Value Reference Range Interpretation Comments RAMESH SPECIES (test code = 22926) POSITIVE G. VAGINALIS (test code = 15849) POSITIVE T. VAGINALIS (test code = ) NEGATIVE VAGINAL PATHOGENS DNA [id number] 00:00:00 Test Item Value Reference Range Interpretation Comments RAMEHS SPECIES (test code = ) POSITIVE G. VAGINALIS (test code = ) POSITIVE T. VAGINALIS (test code = ) NEGATIVE CULTURE, [id number] 00:00:00 Test Item Value Reference Range Interpretation Comments CULTURE, URINE (test SPECIMEN NUMBER: code = 98924) [id number] CULTURE, [id number] 00:00:00 Test Item Value Reference Range Interpretation Comments CULTURE, URINE (test SPECIMEN NUMBER: code = 41880) [id number] CULTURE, [id number] 00:00:00 Test Item Value Reference Range Interpretation Comments CULTURE, URINE (test SPECIMEN NUMBER: code = 58322) [id number] CULTURE, [id number] 00:00:00 Test Item Value Reference Range Interpretation Comments CULTURE, URINE (test SPECIMEN NUMBER: code = 68236) [id number] CULTURE, [id number] 00:00:00 Test Item Value Reference Range Interpretation Comments CULTURE, URINE (test SPECIMEN NUMBER: code = 67620) [id number] CULTURE, [id number] 00:00:00 Test Item Value Reference Range Interpretation Comments CULTURE, URINE (test SPECIMEN NUMBER: code = 88912) [id number] CULTURE, [id number] 00:00:00 Test Item Value Reference Range Interpretation Comments CULTURE, URINE (test SPECIMEN NUMBER: code = 26418) [id number] CULTURE, [id number] 00:00:00 Test Item Value Reference Range Interpretation Comments CULTURE, URINE (test SPECIMEN NUMBER: code = 89033) [id number] CULTURE, [id number] 00:00:00 Test Item Value Reference Range Interpretation Comments CULTURE, URINE (test SPECIMEN NUMBER: code = 59742) [id number] CULTURE, [id number] 00:00:00 Test Item Value Reference Range Interpretation Comments CULTURE, URINE (test SPECIMEN NUMBER: code = 38930) [id number] CULTURE, [id number] 00:00:00 Test Item Value Reference Range Interpretation Comments CULTURE, URINE (test SPECIMEN NUMBER: code = 32809) [id number] CULTURE, [id number] 00:00:00 Test Item Value Reference Range Interpretation Comments CULTURE, URINE (test SPECIMEN NUMBER: code = 74469) [id number] CULTURE, [id number] 00:00:00 Test Item Value Reference Range Interpretation Comments CULTURE, URINE (test SPECIMEN NUMBER: code = 95169) [id number] CULTURE, [id number] 00:00:00 Test Item Value Reference Range Interpretation Comments CULTURE, URINE (test SPECIMEN NUMBER: code = 31840) [id number] CULTURE, [id number] 00:00:00 Test Item Value Reference Range Interpretation Comments CULTURE, URINE (test SPECIMEN NUMBER: code = 30845) [id number] CULTURE, [id number] 00:00:00 Test Item Value Reference Range Interpretation Comments CULTURE, URINE (test SPECIMEN NUMBER: code = 27490) [id number] CULTURE, [id number] 00:00:00 Test Item Value Reference Range Interpretation Comments CULTURE, URINE (test SPECIMEN NUMBER: code = 80651) [id number] CULTURE, [id number] 00:00:00 Test Item Value Reference Range Interpretation Comments CULTURE, URINE (test SPECIMEN NUMBER: code = 56443) [id number] CULTURE, [id number] 00:00:00 Test Item Value Reference Range Interpretation Comments CULTURE, URINE (test SPECIMEN NUMBER: code = 14103) [id number] CULTURE, [id number] 00:00:00 Test Item Value Reference Range Interpretation Comments CULTURE, URINE (test SPECIMEN NUMBER: code = 92226) [id number] CULTURE, [id number] 00:00:00 Test Item Value Reference Range Interpretation Comments CULTURE, URINE (test SPECIMEN NUMBER: code = 19256) [id number] GC AND CHLAMYDIA, AMPLIFIED, [id number] 00:00:00 Test Item Value Reference Range Interpretation Comments GONORRHEA, TMA (test code = 96498) NEGATIVE CHLAMYDIA, TMA (test code = 48142) NEGATIVE GC AND CHLAMYDIA, AMPLIFIED, [id number] 00:00:00 Test Item Value Reference Range Interpretation Comments GONORRHEA, TMA (test code = 00407) NEGATIVE CHLAMYDIA, TMA (test code = 17286) NEGATIVE GC AND CHLAMYDIA, AMPLIFIED, [id number] 00:00:00 Test Item Value Reference Range Interpretation Comments GONORRHEA, TMA (test code = 10209) NEGATIVE CHLAMYDIA, TMA (test code = 01281) NEGATIVE GC AND CHLAMYDIA, AMPLIFIED, [id number] 00:00:00 Test Item Value Reference Range Interpretation Comments GONORRHEA, TMA (test code = 19178) NEGATIVE CHLAMYDIA, TMA (test code = 99157) NEGATIVE GC AND CHLAMYDIA, AMPLIFIED, [id number] 00:00:00 Test Item Value Reference Range Interpretation Comments GONORRHEA, TMA (test code = 54454) NEGATIVE CHLAMYDIA, TMA (test code = 87576) NEGATIVE GC AND CHLAMYDIA, AMPLIFIED, [id number] 00:00:00 Test Item Value Reference Range Interpretation Comments GONORRHEA, TMA (test code = 26495) NEGATIVE CHLAMYDIA, TMA (test code = 68859) NEGATIVE GC AND CHLAMYDIA, AMPLIFIED, [id number] 00:00:00 Test Item Value Reference Range Interpretation Comments GONORRHEA, TMA (test code = 80768) NEGATIVE CHLAMYDIA, TMA (test code = 50786) NEGATIVE GC AND CHLAMYDIA, AMPLIFIED, [id number] 00:00:00 Test Item Value Reference Range Interpretation Comments GONORRHEA, TMA (test code = 32889) NEGATIVE CHLAMYDIA, TMA (test code = 32474) NEGATIVE GC AND CHLAMYDIA, AMPLIFIED, [id number] 00:00:00 Test Item Value Reference Range Interpretation Comments GONORRHEA, TMA (test code = 73598) NEGATIVE CHLAMYDIA, TMA (test code = 25584) NEGATIVE GC AND CHLAMYDIA, AMPLIFIED, [id number] 00:00:00 Test Item Value Reference Range Interpretation Comments GONORRHEA, TMA (test code = 67587) NEGATIVE CHLAMYDIA, TMA (test code = 34421) NEGATIVE GC AND CHLAMYDIA, AMPLIFIED, [id number] 00:00:00 Test Item Value Reference Range Interpretation Comments GONORRHEA, TMA (test code = 78970) NEGATIVE CHLAMYDIA, TMA (test code = 23904) NEGATIVE GC AND CHLAMYDIA, AMPLIFIED, [id number] 00:00:00 Test Item Value Reference Range Interpretation Comments GONORRHEA, TMA (test code = 54601) NEGATIVE CHLAMYDIA, TMA (test code = 25703) NEGATIVE GC AND CHLAMYDIA, AMPLIFIED, [id number] 00:00:00 Test Item Value Reference Range Interpretation Comments GONORRHEA, TMA (test code = 79312) NEGATIVE CHLAMYDIA, TMA (test code = 36638) NEGATIVE GC AND CHLAMYDIA, AMPLIFIED, [id number] 00:00:00 Test Item Value Reference Range Interpretation Comments GONORRHEA, TMA (test code = 41253) NEGATIVE CHLAMYDIA, TMA (test code = 44829) NEGATIVE GC AND CHLAMYDIA, AMPLIFIED, [id number] 00:00:00 Test Item Value Reference Range Interpretation Comments GONORRHEA, TMA (test code = 40213) NEGATIVE CHLAMYDIA, TMA (test code = 39949) NEGATIVE GC AND CHLAMYDIA, AMPLIFIED, [id number] 00:00:00 Test Item Value Reference Range Interpretation Comments GONORRHEA, TMA (test code = 15826) NEGATIVE CHLAMYDIA, TMA (test code = 73933) NEGATIVE GC AND CHLAMYDIA, AMPLIFIED, [id number] 00:00:00 Test Item Value Reference Range Interpretation Comments GONORRHEA, TMA (test code = 54080) NEGATIVE CHLAMYDIA, TMA (test code = 85178) NEGATIVE GC AND CHLAMYDIA, AMPLIFIED, [id number] 00:00:00 Test Item Value Reference Range Interpretation Comments GONORRHEA, TMA (test code = 70658) NEGATIVE CHLAMYDIA, TMA (test code = 52917) NEGATIVE GC AND CHLAMYDIA, AMPLIFIED, [id number] 00:00:00 Test Item Value Reference Range Interpretation Comments GONORRHEA, TMA (test code = 21840) NEGATIVE CHLAMYDIA, TMA (test code = 17621) NEGATIVE GC AND CHLAMYDIA, AMPLIFIED, [id number] 00:00:00 Test Item Value Reference Range Interpretation Comments GONORRHEA, TMA (test code = 81046) NEGATIVE CHLAMYDIA, TMA (test code = 57250) NEGATIVE GC AND CHLAMYDIA, AMPLIFIED, [id number] 00:00:00 Test Item Value Reference Range Interpretation Comments GONORRHEA, TMA (test code = 55081) NEGATIVE CHLAMYDIA, TMA (test code = 93258) NEGATIVE VAGINAL PATHOGENS DNA [id number] 00:00:00 Test Item Value Reference Range Interpretation Comments RAMESH SPECIES (test code = ) NEGATIVE G. VAGINALIS (test code = ) POSITIVE T. VAGINALIS (test code = ) NEGATIVE VAGINAL PATHOGENS DNA [id number] 00:00:00 Test Item Value Reference Range Interpretation Comments RAMESH SPECIES (test code = ) NEGATIVE G. VAGINALIS (test code = 30869) POSITIVE T. VAGINALIS (test code = 21597) NEGATIVE VAGINAL PATHOGENS DNA [id number] 00:00:00 Test Item Value Reference Range Interpretation Comments RAMESH SPECIES (test code = 64833) NEGATIVE G. VAGINALIS (test code = 50677) POSITIVE T. VAGINALIS (test code = 63667) NEGATIVE VAGINAL PATHOGENS DNA [id number] 00:00:00 Test Item Value Reference Range Interpretation Comments RAMESH SPECIES (test code = 75575) NEGATIVE G. VAGINALIS (test code = 49113) POSITIVE T. VAGINALIS (test code = 78119) NEGATIVE VAGINAL PATHOGENS DNA [id number] 00:00:00 Test Item Value Reference Range Interpretation Comments RAMESH SPECIES (test code = 35971) NEGATIVE G. VAGINALIS (test code = 36681) POSITIVE T. VAGINALIS (test code = 00789) NEGATIVE VAGINAL PATHOGENS DNA [id number] 00:00:00 Test Item Value Reference Range Interpretation Comments RAMESH SPECIES (test code = ) NEGATIVE G. VAGINALIS (test code = 59344) POSITIVE T. VAGINALIS (test code = 08821) NEGATIVE VAGINAL PATHOGENS DNA [id number] 00:00:00 Test Item Value Reference Range Interpretation Comments RAMESH SPECIES (test code = 55868) NEGATIVE G. VAGINALIS (test code = 37561) POSITIVE T. VAGINALIS (test code = 49892) NEGATIVE VAGINAL PATHOGENS DNA [id number] 00:00:00 Test Item Value Reference Range Interpretation Comments RAMESH SPECIES (test code = 62461) NEGATIVE G. VAGINALIS (test code = 88974) POSITIVE T. VAGINALIS (test code = 53715) NEGATIVE VAGINAL PATHOGENS DNA [id number] 00:00:00 Test Item Value Reference Range Interpretation Comments RAMESH SPECIES (test code = 48299) NEGATIVE G. VAGINALIS (test code = 47014) POSITIVE T. VAGINALIS (test code = 86260) NEGATIVE VAGINAL PATHOGENS DNA [id number] 00:00:00 Test Item Value Reference Range Interpretation Comments RAMESH SPECIES (test code = 03956) NEGATIVE G. VAGINALIS (test code = 20998) POSITIVE T. VAGINALIS (test code = 84938) NEGATIVE VAGINAL PATHOGENS DNA [id number] 00:00:00 Test Item Value Reference Range Interpretation Comments RAMESH SPECIES (test code = ) NEGATIVE G. VAGINALIS (test code = 31718) POSITIVE T. VAGINALIS (test code = 02895) NEGATIVE VAGINAL PATHOGENS DNA [id number] 00:00:00 Test Item Value Reference Range Interpretation Comments RAMESH SPECIES (test code = 12365) NEGATIVE G. VAGINALIS (test code = 00921) POSITIVE T. VAGINALIS (test code = 64492) NEGATIVE VAGINAL PATHOGENS DNA [id number] 00:00:00 Test Item Value Reference Range Interpretation Comments RAMESH SPECIES (test code = 53769) NEGATIVE G. VAGINALIS (test code = 54555) POSITIVE T. VAGINALIS (test code = 57482) NEGATIVE VAGINAL PATHOGENS DNA [id number] 00:00:00 Test Item Value Reference Range Interpretation Comments RAMESH SPECIES (test code = 07937) NEGATIVE G. VAGINALIS (test code = 63001) POSITIVE T. VAGINALIS (test code = 82361) NEGATIVE VAGINAL PATHOGENS DNA [id number] 00:00:00 Test Item Value Reference Range Interpretation Comments RAMESH SPECIES (test code = 47849) NEGATIVE G. VAGINALIS (test code = 79936) POSITIVE T. VAGINALIS (test code = 46435) NEGATIVE VAGINAL PATHOGENS DNA [id number] 00:00:00 Test Item Value Reference Range Interpretation Comments RAMESH SPECIES (test code = 86872) NEGATIVE G. VAGINALIS (test code = 08963) POSITIVE T. VAGINALIS (test code = 52212) NEGATIVE VAGINAL PATHOGENS DNA [id number] 00:00:00 Test Item Value Reference Range Interpretation Comments RAMESH SPECIES (test code = 48136) NEGATIVE G. VAGINALIS (test code = 42885) POSITIVE T. VAGINALIS (test code = 37025) NEGATIVE VAGINAL PATHOGENS DNA [id number] 00:00:00 Test Item Value Reference Range Interpretation Comments RAMESH SPECIES (test code = 25469) NEGATIVE G. VAGINALIS (test code = 66586) POSITIVE T. VAGINALIS (test code = 78381) NEGATIVE VAGINAL PATHOGENS DNA [id number] 00:00:00 Test Item Value Reference Range Interpretation Comments RAMESH SPECIES (test code = 98238) NEGATIVE G. VAGINALIS (test code = 55714) POSITIVE T. VAGINALIS (test code = 83680) NEGATIVE VAGINAL PATHOGENS DNA [id number] 00:00:00 Test Item Value Reference Range Interpretation Comments RAMESH SPECIES (test code = ) NEGATIVE G. VAGINALIS (test code = 57835) POSITIVE T. VAGINALIS (test code = 37291) NEGATIVE VAGINAL PATHOGENS DNA [id number] 00:00:00 Test Item Value Reference Range Interpretation Comments RAMESH SPECIES (test code = ) NEGATIVE G. VAGINALIS (test code = 86745) POSITIVE T. VAGINALIS (test code = 35855) NEGATIVE GC AND CHLAMYDIA, AMPLIFIED, [id number] 00:00:00 Test Item Value Reference Range Interpretation Comments GONORRHEA, TMA (test code = 95032) NEGATIVE CHLAMYDIA, TMA (test code = 33647) NEGATIVE GC AND CHLAMYDIA, AMPLIFIED, [id number] 00:00:00 Test Item Value Reference Range Interpretation Comments GONORRHEA, TMA (test code = 25400) NEGATIVE CHLAMYDIA, TMA (test code = 89626) NEGATIVE GC AND CHLAMYDIA, AMPLIFIED, [id number] 00:00:00 Test Item Value Reference Range Interpretation Comments GONORRHEA, TMA (test code = 85917) NEGATIVE CHLAMYDIA, TMA (test code = 04363) NEGATIVE GC AND CHLAMYDIA, AMPLIFIED, [id number] 00:00:00 Test Item Value Reference Range Interpretation Comments GONORRHEA, TMA (test code = 69498) NEGATIVE CHLAMYDIA, TMA (test code = 19048) NEGATIVE GC AND CHLAMYDIA, AMPLIFIED, [id number] 00:00:00 Test Item Value Reference Range Interpretation Comments GONORRHEA, TMA (test code = 75352) NEGATIVE CHLAMYDIA, TMA (test code = 35489) NEGATIVE GC AND CHLAMYDIA, AMPLIFIED, [id number] 00:00:00 Test Item Value Reference Range Interpretation Comments GONORRHEA, TMA (test code = 41224) NEGATIVE CHLAMYDIA, TMA (test code = 32589) NEGATIVE GC AND CHLAMYDIA, AMPLIFIED, [id number] 00:00:00 Test Item Value Reference Range Interpretation Comments GONORRHEA, TMA (test code = 09242) NEGATIVE CHLAMYDIA, TMA (test code = 75087) NEGATIVE GC AND CHLAMYDIA, AMPLIFIED, [id number] 00:00:00 Test Item Value Reference Range Interpretation Comments GONORRHEA, TMA (test code = 91184) NEGATIVE CHLAMYDIA, TMA (test code = 64135) NEGATIVE GC AND CHLAMYDIA, AMPLIFIED, [id number] 00:00:00 Test Item Value Reference Range Interpretation Comments GONORRHEA, TMA (test code = 75481) NEGATIVE CHLAMYDIA, TMA (test code = 65849) NEGATIVE GC AND CHLAMYDIA, AMPLIFIED, [id number] 00:00:00 Test Item Value Reference Range Interpretation Comments GONORRHEA, TMA (test code = 38231) NEGATIVE CHLAMYDIA, TMA (test code = 52805) NEGATIVE GC AND CHLAMYDIA, AMPLIFIED, [id number] 00:00:00 Test Item Value Reference Range Interpretation Comments GONORRHEA, TMA (test code = 21361) NEGATIVE CHLAMYDIA, TMA (test code = 62012) NEGATIVE GC AND CHLAMYDIA, AMPLIFIED, [id number] 00:00:00 Test Item Value Reference Range Interpretation Comments GONORRHEA, TMA (test code = 44306) NEGATIVE CHLAMYDIA, TMA (test code = 43451) NEGATIVE GC AND CHLAMYDIA, AMPLIFIED, [id number] 00:00:00 Test Item Value Reference Range Interpretation Comments GONORRHEA, TMA (test code = 87905) NEGATIVE CHLAMYDIA, TMA (test code = 14834) NEGATIVE GC AND CHLAMYDIA, AMPLIFIED, [id number] 00:00:00 Test Item Value Reference Range Interpretation Comments GONORRHEA, TMA (test code = 67544) NEGATIVE CHLAMYDIA, TMA (test code = 33650) NEGATIVE GC AND CHLAMYDIA, AMPLIFIED, [id number] 00:00:00 Test Item Value Reference Range Interpretation Comments GONORRHEA, TMA (test code = 53951) NEGATIVE CHLAMYDIA, TMA (test code = 61311) NEGATIVE GC AND CHLAMYDIA, AMPLIFIED, [id number] 00:00:00 Test Item Value Reference Range Interpretation Comments GONORRHEA, TMA (test code = 21597) NEGATIVE CHLAMYDIA, TMA (test code = 61466) NEGATIVE GC AND CHLAMYDIA, AMPLIFIED, [id number] 00:00:00 Test Item Value Reference Range Interpretation Comments GONORRHEA, TMA (test code = 91794) NEGATIVE CHLAMYDIA, TMA (test code = 89993) NEGATIVE GC AND CHLAMYDIA, AMPLIFIED, [id number] 00:00:00 Test Item Value Reference Range Interpretation Comments GONORRHEA, TMA (test code = 74222) NEGATIVE CHLAMYDIA, TMA (test code = 16730) NEGATIVE GC AND CHLAMYDIA, AMPLIFIED, [id number] 00:00:00 Test Item Value Reference Range Interpretation Comments GONORRHEA, TMA (test code = 01760) NEGATIVE CHLAMYDIA, TMA (test code = 07861) NEGATIVE GC AND CHLAMYDIA, AMPLIFIED, [id number] 00:00:00 Test Item Value Reference Range Interpretation Comments GONORRHEA, TMA (test code = 39898) NEGATIVE CHLAMYDIA, TMA (test code = 18205) NEGATIVE GC AND CHLAMYDIA, AMPLIFIED, [id number] 00:00:00 Test Item Value Reference Range Interpretation Comments GONORRHEA, TMA (test code = 85146) NEGATIVE CHLAMYDIA, TMA (test code = 56503) NEGATIVE CULTURE, [id number] 00:00:00 Test Item Value Reference Range Interpretation Comments CULTURE, URINE (test SPECIMEN NUMBER: code = 51811) [id number] CULTURE, [id number] 00:00:00 Test Item Value Reference Range Interpretation Comments CULTURE, URINE (test SPECIMEN NUMBER: code = 66338) [id number] CULTURE, [id number] 00:00:00 Test Item Value Reference Range Interpretation Comments CULTURE, URINE (test SPECIMEN NUMBER: code = 38487) [id number] CULTURE, [id number] 00:00:00 Test Item Value Reference Range Interpretation Comments CULTURE, URINE (test SPECIMEN NUMBER: code = 87199) [id number] CULTURE, [id number] 00:00:00 Test Item Value Reference Range Interpretation Comments CULTURE, URINE (test SPECIMEN NUMBER: code = 99228) [id number] CULTURE, [id number] 00:00:00 Test Item Value Reference Range Interpretation Comments CULTURE, URINE (test SPECIMEN NUMBER: code = 58795) [id number] CULTURE, [id number] 00:00:00 Test Item Value Reference Range Interpretation Comments CULTURE, URINE (test SPECIMEN NUMBER: code = 73024) [id number] CULTURE, [id number] 00:00:00 Test Item Value Reference Range Interpretation Comments CULTURE, URINE (test SPECIMEN NUMBER: code = 42587) [id number] CULTURE, [id number] 00:00:00 Test Item Value Reference Range Interpretation Comments CULTURE, URINE (test SPECIMEN NUMBER: code = 71536) [id number] CULTURE, [id number] 00:00:00 Test Item Value Reference Range Interpretation Comments CULTURE, URINE (test SPECIMEN NUMBER: code = 13080) [id number] CULTURE, [id number] 00:00:00 Test Item Value Reference Range Interpretation Comments CULTURE, URINE (test SPECIMEN NUMBER: code = 10883) [id number] CULTURE, [id number] 00:00:00 Test Item Value Reference Range Interpretation Comments CULTURE, URINE (test SPECIMEN NUMBER: code = 59789) [id number] CULTURE, [id number] 00:00:00 Test Item Value Reference Range Interpretation Comments CULTURE, URINE (test SPECIMEN NUMBER: code = 02414) [id number] CULTURE, [id number] 00:00:00 Test Item Value Reference Range Interpretation Comments CULTURE, URINE (test SPECIMEN NUMBER: code = 87962) [id number] CULTURE, [id number] 00:00:00 Test Item Value Reference Range Interpretation Comments CULTURE, URINE (test SPECIMEN NUMBER: code = 36381) [id number] CULTURE, [id number] 00:00:00 Test Item Value Reference Range Interpretation Comments CULTURE, URINE (test SPECIMEN NUMBER: code = 17061) [id number] CULTURE, [id number] 00:00:00 Test Item Value Reference Range Interpretation Comments CULTURE, URINE (test SPECIMEN NUMBER: code = 14835) [id number] CULTURE, [id number] 00:00:00 Test Item Value Reference Range Interpretation Comments CULTURE, URINE (test SPECIMEN NUMBER: code = 90386) [id number] CULTURE, [id number] 00:00:00 Test Item Value Reference Range Interpretation Comments CULTURE, URINE (test SPECIMEN NUMBER: code = 30868) [id number] CULTURE, [id number] 00:00:00 Test Item Value Reference Range Interpretation Comments CULTURE, URINE (test SPECIMEN NUMBER: code = 26492) [id number] CULTURE, [id number] 00:00:00 Test Item Value Reference Range Interpretation Comments CULTURE, URINE (test SPECIMEN NUMBER: code = 05739) [id number] VAGINAL PATHOGENS DNA [id number] 00:00:00 Test Item Value Reference Range Interpretation Comments RAMESH SPECIES (test code = 86672) NEGATIVE G. VAGINALIS (test code = 07503) POSITIVE T. VAGINALIS (test code = 71377) NEGATIVE VAGINAL PATHOGENS DNA [id number] 00:00:00 Test Item Value Reference Range Interpretation Comments RAMESH SPECIES (test code = 10216) NEGATIVE G. VAGINALIS (test code = 24516) POSITIVE T. VAGINALIS (test code = 74934) NEGATIVE VAGINAL PATHOGENS DNA [id number] 00:00:00 Test Item Value Reference Range Interpretation Comments RAMESH SPECIES (test code = 05611) NEGATIVE G. VAGINALIS (test code = 42448) POSITIVE T. VAGINALIS (test code = 41924) NEGATIVE VAGINAL PATHOGENS DNA [id number] 00:00:00 Test Item Value Reference Range Interpretation Comments RAMESH SPECIES (test code = 35673) NEGATIVE G. VAGINALIS (test code = 89121) POSITIVE T. VAGINALIS (test code = 78644) NEGATIVE VAGINAL PATHOGENS DNA [id number] 00:00:00 Test Item Value Reference Range Interpretation Comments RAMESH SPECIES (test code = 63380) NEGATIVE G. VAGINALIS (test code = 45498) POSITIVE T. VAGINALIS (test code = 98782) NEGATIVE VAGINAL PATHOGENS DNA [id number] 00:00:00 Test Item Value Reference Range Interpretation Comments RAMESH SPECIES (test code = 99664) NEGATIVE G. VAGINALIS (test code = 42462) POSITIVE T. VAGINALIS (test code = 15348) NEGATIVE VAGINAL PATHOGENS DNA [id number] 00:00:00 Test Item Value Reference Range Interpretation Comments RAMESH SPECIES (test code = 49049) NEGATIVE G. VAGINALIS (test code = 10943) POSITIVE T. VAGINALIS (test code = 60701) NEGATIVE VAGINAL PATHOGENS DNA [id number] 00:00:00 Test Item Value Reference Range Interpretation Comments RAMESH SPECIES (test code = 47371) NEGATIVE G. VAGINALIS (test code = 98159) POSITIVE T. VAGINALIS (test code = 92620) NEGATIVE VAGINAL PATHOGENS DNA [id number] 00:00:00 Test Item Value Reference Range Interpretation Comments RAMESH SPECIES (test code = 94611) NEGATIVE G. VAGINALIS (test code = 25087) POSITIVE T. VAGINALIS (test code = 23617) NEGATIVE VAGINAL PATHOGENS DNA [id number] 00:00:00 Test Item Value Reference Range Interpretation Comments RAMESH SPECIES (test code = 64012) NEGATIVE G. VAGINALIS (test code = 80782) POSITIVE T. VAGINALIS (test code = 45471) NEGATIVE VAGINAL PATHOGENS DNA [id number] 00:00:00 Test Item Value Reference Range Interpretation Comments RAMESH SPECIES (test code = 19062) NEGATIVE G. VAGINALIS (test code = 24881) POSITIVE T. VAGINALIS (test code = 03885) NEGATIVE VAGINAL PATHOGENS DNA [id number] 00:00:00 Test Item Value Reference Range Interpretation Comments RAMESH SPECIES (test code = 06332) NEGATIVE G. VAGINALIS (test code = 81597) POSITIVE T. VAGINALIS (test code = 00635) NEGATIVE VAGINAL PATHOGENS DNA [id number] 00:00:00 Test Item Value Reference Range Interpretation Comments RAMESH SPECIES (test code = 83814) NEGATIVE G. VAGINALIS (test code = 57506) POSITIVE T. VAGINALIS (test code = 49837) NEGATIVE VAGINAL PATHOGENS DNA [id number] 00:00:00 Test Item Value Reference Range Interpretation Comments RAMESH SPECIES (test code = ) NEGATIVE G. VAGINALIS (test code = 31338) POSITIVE T. VAGINALIS (test code = 47516) NEGATIVE VAGINAL PATHOGENS DNA [id number] 00:00:00 Test Item Value Reference Range Interpretation Comments RAMESH SPECIES (test code = 88986) NEGATIVE G. VAGINALIS (test code = 73491) POSITIVE T. VAGINALIS (test code = 28772) NEGATIVE VAGINAL PATHOGENS DNA [id number] 00:00:00 Test Item Value Reference Range Interpretation Comments RAMESH SPECIES (test code = 46475) NEGATIVE G. VAGINALIS (test code = 03938) POSITIVE T. VAGINALIS (test code = 15784) NEGATIVE VAGINAL PATHOGENS DNA [id number] 00:00:00 Test Item Value Reference Range Interpretation Comments RAMESH SPECIES (test code = 99566) NEGATIVE G. VAGINALIS (test code = 59431) POSITIVE T. VAGINALIS (test code = 25464) NEGATIVE VAGINAL PATHOGENS DNA [id number] 00:00:00 Test Item Value Reference Range Interpretation Comments RAMESH SPECIES (test code = 80848) NEGATIVE G. VAGINALIS (test code = 12114) POSITIVE T. VAGINALIS (test code = 65745) NEGATIVE VAGINAL PATHOGENS DNA [id number] 00:00:00 Test Item Value Reference Range Interpretation Comments RAMESH SPECIES (test code = 49956) NEGATIVE G. VAGINALIS (test code = 76817) POSITIVE T. VAGINALIS (test code = 61312) NEGATIVE VAGINAL PATHOGENS DNA [id number] 00:00:00 Test Item Value Reference Range Interpretation Comments RAMESH SPECIES (test code = ) NEGATIVE G. VAGINALIS (test code = 39972) POSITIVE T. VAGINALIS (test code = 63473) NEGATIVE VAGINAL PATHOGENS DNA [id number] 00:00:00 Test Item Value Reference Range Interpretation Comments RAMESH SPECIES (test code = ) NEGATIVE G. VAGINALIS (test code = 35389) POSITIVE T. VAGINALIS (test code = 44185) NEGATIVE CULTURE, HERPES [id number] 00:00:00 Test Item Value Reference Range Interpretation Comments SPECIMEN SOURCE (test code TEST NOT PERFORMED = 95100) HERPES CULTURE (test code TEST NOT PERFORMED = 3533) CULTURE, HERPES [id number] 00:00:00 Test Item Value Reference Range Interpretation Comments SPECIMEN SOURCE (test code TEST NOT PERFORMED = 20907) HERPES CULTURE (test code TEST NOT PERFORMED = 3533) CULTURE, HERPES [id number] 00:00:00 Test Item Value Reference Range Interpretation Comments SPECIMEN SOURCE (test code TEST NOT PERFORMED = 87776) HERPES CULTURE (test code TEST NOT PERFORMED = 3533) CULTURE, HERPES [id number] 00:00:00 Test Item Value Reference Range Interpretation Comments SPECIMEN SOURCE (test code TEST NOT PERFORMED = 18483) HERPES CULTURE (test code TEST NOT PERFORMED = 3533) CULTURE, HERPES [id number] 00:00:00 Test Item Value Reference Range Interpretation Comments SPECIMEN SOURCE (test code TEST NOT PERFORMED = 65778) HERPES CULTURE (test code TEST NOT PERFORMED = 3533) CULTURE, HERPES [id number] 00:00:00 Test Item Value Reference Range Interpretation Comments SPECIMEN SOURCE (test code TEST NOT PERFORMED = 02754) HERPES CULTURE (test code TEST NOT PERFORMED = 3533) CULTURE, HERPES [id number] 00:00:00 Test Item Value Reference Range Interpretation Comments SPECIMEN SOURCE (test code TEST NOT PERFORMED = 00831) HERPES CULTURE (test code TEST NOT PERFORMED = 3533) CULTURE, HERPES [id number] 00:00:00 Test Item Value Reference Range Interpretation Comments SPECIMEN SOURCE (test code TEST NOT PERFORMED = 18186) HERPES CULTURE (test code TEST NOT PERFORMED = 3533) CULTURE, HERPES [id number] 00:00:00 Test Item Value Reference Range Interpretation Comments SPECIMEN SOURCE (test code TEST NOT PERFORMED = 53567) HERPES CULTURE (test code TEST NOT PERFORMED = 3533) CULTURE, HERPES [id number] 00:00:00 Test Item Value Reference Range Interpretation Comments SPECIMEN SOURCE (test code TEST NOT PERFORMED = 23773) HERPES CULTURE (test code TEST NOT PERFORMED = 3533) CULTURE, HERPES [id number] 00:00:00 Test Item Value Reference Range Interpretation Comments SPECIMEN SOURCE (test code TEST NOT PERFORMED = 66988) HERPES CULTURE (test code TEST NOT PERFORMED = 3533) CULTURE, HERPES [id number] 00:00:00 Test Item Value Reference Range Interpretation Comments SPECIMEN SOURCE (test code TEST NOT PERFORMED = 71481) HERPES CULTURE (test code TEST NOT PERFORMED = 3533) CULTURE, HERPES [id number] 00:00:00 Test Item Value Reference Range Interpretation Comments SPECIMEN SOURCE (test code TEST NOT PERFORMED = 32692) HERPES CULTURE (test code TEST NOT PERFORMED = 3533) CULTURE, HERPES [id number] 00:00:00 Test Item Value Reference Range Interpretation Comments SPECIMEN SOURCE (test code TEST NOT PERFORMED = 73208) HERPES CULTURE (test code TEST NOT PERFORMED = 3533) CULTURE, HERPES [id number] 00:00:00 Test Item Value Reference Range Interpretation Comments SPECIMEN SOURCE (test code TEST NOT PERFORMED = 91289) HERPES CULTURE (test code TEST NOT PERFORMED = 3533) CULTURE, HERPES [id number] 00:00:00 Test Item Value Reference Range Interpretation Comments SPECIMEN SOURCE (test code TEST NOT PERFORMED = 66725) HERPES CULTURE (test code TEST NOT PERFORMED = 3533) CULTURE, HERPES [id number] 00:00:00 Test Item Value Reference Range Interpretation Comments SPECIMEN SOURCE (test code TEST NOT PERFORMED = 50044) HERPES CULTURE (test code TEST NOT PERFORMED = 3533) CULTURE, HERPES [id number] 00:00:00 Test Item Value Reference Range Interpretation Comments SPECIMEN SOURCE (test code TEST NOT PERFORMED = 82335) HERPES CULTURE (test code TEST NOT PERFORMED = 3533) CULTURE, HERPES [id number] 00:00:00 Test Item Value Reference Range Interpretation Comments SPECIMEN SOURCE (test code TEST NOT PERFORMED = 87350) HERPES CULTURE (test code TEST NOT PERFORMED = 3533) CULTURE, HERPES [id number] 00:00:00 Test Item Value Reference Range Interpretation Comments SPECIMEN SOURCE (test code TEST NOT PERFORMED = 16825) HERPES CULTURE (test code TEST NOT PERFORMED = 3533) CULTURE, HERPES [id number] 00:00:00 Test Item Value Reference Range Interpretation Comments SPECIMEN SOURCE (test code TEST NOT PERFORMED = 28333) HERPES CULTURE (test code TEST NOT PERFORMED = 3533) GC AND CHLAMYDIA AMPLIFIED, [id number] 00:00:00 Test Item Value Reference Range Interpretation Comments GONORRHEA, TMA (test code = 11267) NEGATIVE CHLAMYDIA, TMA (test code = 95138) NEGATIVE GC AND CHLAMYDIA AMPLIFIED, [id number] 00:00:00 Test Item Value Reference Range Interpretation Comments GONORRHEA, TMA (test code = 48213) NEGATIVE CHLAMYDIA, TMA (test code = 31135) NEGATIVE PAP TEST, THINPREP, [id number] 00:00:00 Test Item Value Reference Range Interpretation Comments SOURCE: (test code = Cervical/Endocervical 8001) SLIDES: (test code = 1 8011) LMP: (test code = 8021) 10/10/2018 SPECIMEN ADEQUACY: (NOTE) (test code = 41576) INTERPRETATION: (test NILM/NO EPITH. 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: (test NOLVIA DE [place](ASCP) code = 8101) LOCATION: (test code = (NOTE) 26751) CPT: (test code = 8140) (NOTE) HIV AB/AG COMBO RFLX [id number] 00:00:00 Test Item Value Reference Range Interpretation Comments HIV 1/2 4TH GEN, RFLX CONF (test NON-REACTIVE code = 3514) HIV AB/AG COMBO RFLX [id number] 00:00:00 Test Item Value Reference Range Interpretation Comments HIV 1/2 4TH GEN, RFLX CONF (test NON-REACTIVE code = 3514) HPV HIGH RISK WITH GENOTYPE, [id number] 00:00:00 Test Item Value Reference Range Interpretation Comments HPV HIGH RISK INTERP (test code = NEGATIVE 32270) HPV 16 (test code = 21017) NEGATIVE HPV 18 (test code = 35033) NEGATIVE HPV, HR, OTHER GENOTYPES (test code NEGATIVE = 95797) [id number] 00:00:00 Test Item Value Reference Range Interpretation Comments TSH, THIRD GENERATION (test code 2.250 UIU/ML = 2821) [id number] 00:00:00 Test Item Value Reference Range Interpretation Comments TSH, THIRD GENERATION (test code 2.250 UIU/ML = 2821) HPV HIGH RISK WITH GENOTYPE, [id number] 00:00:00 Test Item Value Reference Range Interpretation Comments HPV HIGH RISK INTERP (test code = NEGATIVE 00723) HPV 16 (test code = 42927) NEGATIVE HPV 18 (test code = 70145) NEGATIVE HPV, HR, OTHER GENOTYPES (test code NEGATIVE = 48560) [id number] 00:00:00 Test Item Value Reference Range Interpretation Comments TSH, THIRD GENERATION (test code 2.250 UIU/ML = 2821) GC AND CHLAMYDIA AMPLIFIED, [id number] 00:00:00 Test Item Value Reference Range Interpretation Comments GONORRHEA, TMA (test code = 78515) NEGATIVE CHLAMYDIA, TMA (test code = 40084) NEGATIVE GC AND CHLAMYDIA AMPLIFIED, [id number] 00:00:00 Test Item Value Reference Range Interpretation Comments GONORRHEA, TMA (test code = 99462) NEGATIVE CHLAMYDIA, TMA (test code = 22811) NEGATIVE PAP TEST, THINPREP, [id number] 00:00:00 Test Item Value Reference Range Interpretation Comments SOURCE: (test code = Cervical/Endocervical 8001) SLIDES: (test code = 1 8011) LMP: (test code = 8021) 10/10/2018 SPECIMEN ADEQUACY: (NOTE) (test code = 23860) INTERPRETATION: (test NILM/NO EPITH. code = 45561) ABNORMALITY;SEE BELOW FRONT LOAD TRASH TRUCK DRIVER: (test RENAE NAJERABIANCACT(ASCP) code = 8101) LOCATION: (test code = (NOTE) 90879) CPT: (test code = 8140) (NOTE) HIV AB/AG COMBO RFLX [id number] 00:00:00 Test Item Value Reference Range Interpretation Comments HIV 1/2 4TH GEN, RFLX CONF (test NON-REACTIVE code = 3514) PAP TEST, THINPREP, [id number] 00:00:00 Test Item Value Reference Range Interpretation Comments SOURCE: (test code = Cervical/Endocervical 8001) SLIDES: (test code = 1 8011) LMP: (test code = 8021) 10/10/2018 SPECIMEN ADEQUACY: (NOTE) (test code = 54035) INTERPRETATION: (test NILM/NO EPITH. code = 87990) ABNORMALITY;SEE BELOW FRONT LOAD [employer]IVER: (test RENAE CARCT(ASCP) code = 8101) LOCATION: (test code = (NOTE) 05498) CPT: (test code = 8140) (NOTE) HIV AB/AG COMBO RFLX [id number] 00:00:00 Test Item Value Reference Range Interpretation Comments HIV 1/2 4TH GEN, RFLX CONF (test NON-REACTIVE code = 3514) HPV HIGH RISK WITH GENOTYPE, [id number] 00:00:00 Test Item Value Reference Range Interpretation Comments HPV HIGH RISK INTERP (test code = NEGATIVE 10649) HPV 16 (test code = 18004) NEGATIVE HPV 18 (test code = 35897) NEGATIVE HPV, HR, OTHER GENOTYPES (test code NEGATIVE = 34378) [id number] 00:00:00 Test Item Value Reference Range Interpretation Comments TSH, THIRD GENERATION (test code 2.250 UIU/ML = 2821) [id number] 00:00:00 Test Item Value Reference Range Interpretation Comments TSH, THIRD GENERATION (test code 2.250 UIU/ML = 2821) HPV HIGH RISK WITH GENOTYPE, [id number] 00:00:00 Test Item Value Reference Range Interpretation Comments HPV HIGH RISK INTERP (test code = NEGATIVE 70117) HPV 16 (test code = 27469) NEGATIVE HPV 18 (test code = 29631) NEGATIVE HPV, HR, OTHER GENOTYPES (test code NEGATIVE = 86580) [id number] 00:00:00 Test Item Value Reference Range Interpretation Comments TSH, THIRD GENERATION (test code 2.250 UIU/ML = 2821) GC AND CHLAMYDIA AMPLIFIED, [id number] 00:00:00 Test Item Value Reference Range Interpretation Comments GONORRHEA, TMA (test code = 16394) NEGATIVE CHLAMYDIA, TMA (test code = 29189) NEGATIVE GC AND CHLAMYDIA AMPLIFIED, [id number] 00:00:00 Test Item Value Reference Range Interpretation Comments GONORRHEA, TMA (test code = 55187) NEGATIVE CHLAMYDIA, TMA (test code = 39853) NEGATIVE HIV AB/AG COMBO RFLX [id number] 00:00:00 Test Item Value Reference Range Interpretation Comments HIV 1/2 4TH GEN, RFLX CONF (test NON-REACTIVE code = 3514) PAP TEST, THINPREP, [id number] 00:00:00 Test Item Value Reference Range Interpretation Comments SOURCE: (test code = Cervical/Endocervical 8001) SLIDES: (test code = 1 8011) LMP: (test code = 8021) 10/10/2018 SPECIMEN ADEQUACY: (NOTE) (test code = 24298) INTERPRETATION: (test NILM/NO EPITH. code = 32186) ABNORMALITY;SEE BELOW FRONT LOAD TRASH TRUCK DRIVER: (test NOLVIA DE LA ROSA(ASCP) code = 8101) LOCATION: (test code = (NOTE) 50652) CPT: (test code = 8140) (NOTE) PAP TEST, THINPREP, [id number] 00:00:00 Test Item Value Reference Range Interpretation Comments SOURCE: (test code = Cervical/Endocervical 8001) SLIDES: (test code = 1 8011) LMP: (test code = 8021) 10/10/2018 SPECIMEN ADEQUACY: (NOTE) (test code = 51130) INTERPRETATION: (test NILM/NO EPITH. code = 44886) ABNORMALITY;SEE BELOW FRONT LOAD TRASH TRUCK DRIVER: (test NOLVIA DE [place] ROSA(ASCP) code = 8101) LOCATION: (test code = (NOTE) 14374) CPT: (test code = 8140) (NOTE) HIV AB/AG COMBO RFLX [id number] 00:00:00 Test Item Value Reference Range Interpretation Comments HIV 1/2 4TH GEN, RFLX CONF (test NON-REACTIVE code = 3514) [id number] 00:00:00 Test Item Value Reference Range Interpretation Comments TSH, THIRD GENERATION (test code 2.250 UIU/ML = 2821) [id number] 00:00:00 Test Item Value Reference Range Interpretation Comments TSH, THIRD GENERATION (test code 2.250 UIU/ML = 2821) [id number] 00:00:00 Test Item Value Reference Range Interpretation Comments TSH, THIRD GENERATION (test code 2.250 UIU/ML = 2821) HPV HIGH RISK WITH GENOTYPE, [id number] 00:00:00 Test Item Value Reference Range Interpretation Comments HPV HIGH RISK INTERP (test code = NEGATIVE 81030) HPV 16 (test code = 23001) NEGATIVE HPV 18 (test code = 44487) NEGATIVE HPV, HR, OTHER GENOTYPES (test code NEGATIVE = 74989) HPV HIGH RISK WITH GENOTYPE, [id number] 00:00:00 Test Item Value Reference Range Interpretation Comments HPV HIGH RISK INTERP (test code = NEGATIVE 43083) HPV 16 (test code = 59159) NEGATIVE HPV 18 (test code = 20339) NEGATIVE HPV, HR, OTHER GENOTYPES (test code NEGATIVE = 11529) GC AND CHLAMYDIA AMPLIFIED, [id number] 00:00:00 Test Item Value Reference Range Interpretation Comments GONORRHEA, TMA (test code = 10504) NEGATIVE CHLAMYDIA, TMA (test code = 48990) NEGATIVE GC AND CHLAMYDIA AMPLIFIED, [id number] 00:00:00 Test Item Value Reference Range Interpretation Comments GONORRHEA, TMA (test code = 92099) NEGATIVE CHLAMYDIA, TMA (test code = 31991) NEGATIVE HIV AB/AG COMBO RFLX [id number] 00:00:00 Test Item Value Reference Range Interpretation Comments HIV 1/2 4TH GEN, RFLX CONF (test NON-REACTIVE code = 3514) PAP TEST, THINPREP, [id number] 00:00:00 Test Item Value Reference Range Interpretation Comments SOURCE: (test code = Cervical/Endocervical 8001) SLIDES: (test code = 1 8011) LMP: (test code = 8021) 10/10/2018 SPECIMEN ADEQUACY: (NOTE) (test code = 06088) INTERPRETATION: (test NILM/NO EPITH. code = 47136) ABNORMALITY;SEE BELOW FRONT LOAD TRASH TRUCK DRIVER: (test RENAE NAJERABIANCACT(ASCP) code = 8101) LOCATION: (test code = (NOTE) 50862) CPT: (test code = 8140) (NOTE) PAP TEST, THINPREP, [id number] 00:00:00 Test Item Value Reference Range Interpretation Comments SOURCE: (test code = Cervical/Endocervical 8001) SLIDES: (test code = 1 8011) LMP: (test code = 8021) 10/10/2018 SPECIMEN ADEQUACY: (NOTE) (test code = 88732) INTERPRETATION: (test NILM/NO EPITH. code = 74552) ABNORMALITY;SEE BELOW FRONT LOAD TRASH TRUCK DRIVER: (test RENAE NAJERABIANCACT(ASCP) code = 8101) LOCATION: (test code = (NOTE) 71409) CPT: (test code = 8140) (NOTE) HIV AB/AG COMBO RFLX [id number] 00:00:00 Test Item Value Reference Range Interpretation Comments HIV 1/2 4TH GEN, RFLX CONF (test NON-REACTIVE code = 3514) HPV HIGH RISK WITH GENOTYPE, [id number] 00:00:00 Test Item Value Reference Range Interpretation Comments HPV HIGH RISK INTERP (test code = NEGATIVE 62429) HPV 16 (test code = 93557) NEGATIVE HPV 18 (test code = 21894) NEGATIVE HPV, HR, OTHER GENOTYPES (test code NEGATIVE = 78367) [id number] 00:00:00 Test Item Value Reference Range Interpretation Comments TSH, THIRD GENERATION (test code 2.250 UIU/ML = 2821) [id number] 00:00:00 Test Item Value Reference Range Interpretation Comments TSH, THIRD GENERATION (test code 2.250 UIU/ML = 2821) [id number] 00:00:00 Test Item Value Reference Range Interpretation Comments TSH, THIRD GENERATION (test code 2.250 UIU/ML = 2821) HPV HIGH RISK WITH GENOTYPE, [id number] 00:00:00 Test Item Value Reference Range Interpretation Comments HPV HIGH RISK INTERP (test code = NEGATIVE 02047) HPV 16 (test code = 37837) NEGATIVE HPV 18 (test code = 58270) NEGATIVE HPV, HR, OTHER GENOTYPES (test code NEGATIVE = 64527) GC AND CHLAMYDIA AMPLIFIED, [id number] 00:00:00 Test Item Value Reference Range Interpretation Comments GONORRHEA, TMA (test code = 29678) NEGATIVE CHLAMYDIA, TMA (test code = 01873) NEGATIVE GC AND CHLAMYDIA AMPLIFIED, [id number] 00:00:00 Test Item Value Reference Range Interpretation Comments GONORRHEA, TMA (test code = 26026) NEGATIVE CHLAMYDIA, TMA (test code = 40721) NEGATIVE HIV AB/AG COMBO RFLX [id number] 00:00:00 Test Item Value Reference Range Interpretation Comments HIV 1/2 4TH GEN, RFLX CONF (test NON-REACTIVE code = 3514) PAP TEST, THINPREP, [id number] 00:00:00 Test Item Value Reference Range Interpretation Comments SOURCE: (test code = Cervical/Endocervical 8001) SLIDES: (test code = 1 8011) LMP: (test code = 8021) 10/10/2018 SPECIMEN ADEQUACY: (NOTE) (test code = 87667) INTERPRETATION: (test NILM/NO EPITH. code = 33177) ABNORMALITY;SEE BELOW FRONT LOAD TRASH TRUCK DRIVER: (test NOLVIA DE LA ROSA(ASCP) code = 8101) LOCATION: (test code = (NOTE) 47953) CPT: (test code = 8140) (NOTE) PAP TEST, THINPREP, [id number] 00:00:00 Test Item Value Reference Range Interpretation Comments SOURCE: (test code = Cervical/Endocervical 8001) SLIDES: (test code = 1 8011) LMP: (test code = 8021) 10/10/2018 SPECIMEN ADEQUACY: (NOTE) (test code = 77112) INTERPRETATION: (test NILM/NO EPITH. code = 72711) ABNORMALITY;SEE BELOW FRONT LOAD TRASH TRUCK DRIVER: (test NOLVIA DE LA ROSA(ASCP) code = 8101) LOCATION: (test code = (NOTE) 58789) CPT: (test code = 8140) (NOTE) HIV AB/AG COMBO RFLX [id number] 00:00:00 Test Item Value Reference Range Interpretation Comments HIV 1/2 4TH GEN, RFLX CONF (test NON-REACTIVE code = 3514) [id number] 00:00:00 Test Item Value Reference Range Interpretation Comments TSH, THIRD GENERATION (test code 2.250 UIU/ML = 2821) [id number] 00:00:00 Test Item Value Reference Range Interpretation Comments TSH, THIRD GENERATION (test code 2.250 UIU/ML = 2821) HPV HIGH RISK WITH GENOTYPE, [id number] 00:00:00 Test Item Value Reference Range Interpretation Comments HPV HIGH RISK INTERP (test code = NEGATIVE 78395) HPV 16 (test code = 43050) NEGATIVE HPV 18 (test code = 52350) NEGATIVE HPV, HR, OTHER GENOTYPES (test code NEGATIVE = 85715) HPV HIGH RISK WITH GENOTYPE, [id number] 00:00:00 Test Item Value Reference Range Interpretation Comments HPV HIGH RISK INTERP (test code = NEGATIVE 65811) HPV 16 (test code = 07794) NEGATIVE HPV 18 (test code = 68251) NEGATIVE HPV, HR, OTHER GENOTYPES (test code NEGATIVE = 70991) [id number] 00:00:00 Test Item Value Reference Range Interpretation Comments TSH, THIRD GENERATION (test code 2.250 UIU/ML = 2821) GC AND CHLAMYDIA AMPLIFIED, [id number] 00:00:00 Test Item Value Reference Range Interpretation Comments GONORRHEA, TMA (test code = 86071) NEGATIVE CHLAMYDIA, TMA (test code = 90783) NEGATIVE GC AND CHLAMYDIA AMPLIFIED, [id number] 00:00:00 Test Item Value Reference Range Interpretation Comments GONORRHEA, TMA (test code = 34104) NEGATIVE CHLAMYDIA, TMA (test code = 88524) NEGATIVE PAP TEST, THINPREP, [id number] 00:00:00 Test Item Value Reference Range Interpretation Comments SOURCE: (test code = Cervical/Endocervical 8001) SLIDES: (test code = 1 8011) LMP: (test code = 8021) 10/10/2018 SPECIMEN ADEQUACY: (NOTE) (test code = 41441) INTERPRETATION: (test NILM/NO EPITH. code = 50015) ABNORMALITY;SEE BELOW FRONT LOAD TRASH TRUCK DRIVER: (test RENAE CARCT(ASCP) code = 8101) LOCATION: (test code = (NOTE) 29805) CPT: (test code = 8140) (NOTE) HIV AB/AG COMBO RFLX [id number] 00:00:00 Test Item Value Reference Range Interpretation Comments HIV 1/2 4TH GEN, RFLX CONF (test NON-REACTIVE code = 3514) HIV AB/AG COMBO RFLX [id number] 00:00:00 Test Item Value Reference Range Interpretation Comments HIV 1/2 4TH GEN, RFLX CONF (test NON-REACTIVE code = 3514) PAP TEST, THINPREP, [id number] 00:00:00 Test Item Value Reference Range Interpretation Comments SOURCE: (test code = Cervical/Endocervical 8001) SLIDES: (test code = 1 8011) LMP: (test code = 8021) 10/10/2018 SPECIMEN ADEQUACY: (NOTE) (test code = 87778) INTERPRETATION: (test NILM/NO EPITH. code = 02434) ABNORMALITY;SEE BELOW FRONT LOAD TRASH TRUCK DRIVER: (test RENAE CARCT(ASCP) code = 8101) LOCATION: (test code = (NOTE) 85164) CPT: (test code = 8140) (NOTE) HPV HIGH RISK WITH GENOTYPE, [id number] 00:00:00 Test Item Value Reference Range Interpretation Comments HPV HIGH RISK INTERP (test code = NEGATIVE 83522) HPV 16 (test code = 18041) NEGATIVE HPV 18 (test code = 39159) NEGATIVE HPV, HR, OTHER GENOTYPES (test code NEGATIVE = 96285) [id number] 00:00:00 Test Item Value Reference Range Interpretation Comments TSH, THIRD GENERATION (test code 2.250 UIU/ML = 2821) HPV HIGH RISK WITH GENOTYPE, [id number] 00:00:00 Test Item Value Reference Range Interpretation Comments HPV HIGH RISK INTERP (test code = NEGATIVE 22715) HPV 16 (test code = 15153) NEGATIVE HPV 18 (test code = 73371) NEGATIVE HPV, HR, OTHER GENOTYPES (test code NEGATIVE = 46289) [id number] 00:00:00 Test Item Value Reference Range Interpretation Comments TSH, THIRD GENERATION (test code 2.250 UIU/ML = 2821) [id number] 00:00:00 Test Item Value Reference Range Interpretation Comments TSH, THIRD GENERATION (test code 2.250 UIU/ML = 2821) GC AND CHLAMYDIA AMPLIFIED, [id number] 00:00:00 Test Item Value Reference Range Interpretation Comments GONORRHEA, TMA (test code = 55955) NEGATIVE CHLAMYDIA, TMA (test code = 56926) NEGATIVE GC AND CHLAMYDIA AMPLIFIED, [id number] 00:00:00 Test Item Value Reference Range Interpretation Comments GONORRHEA, TMA (test code = 68861) NEGATIVE CHLAMYDIA, TMA (test code = 41864) NEGATIVE PAP TEST, THINPREP, [id number] 00:00:00 Test Item Value Reference Range Interpretation Comments SOURCE: (test code = Cervical/Endocervical 8001) SLIDES: (test code = 1 8011) LMP: (test code = 8021) 10/10/2018 SPECIMEN ADEQUACY: (NOTE) (test code = 46264) INTERPRETATION: (test NILM/NO EPITH. code = 54854) ABNORMALITY;SEE BELOW FRONT LOAD TRASH TRUCK DRIVER: (test NOLVIA DE LA ROSA(ASCP) code = 8101) LOCATION: (test code = (NOTE) 50545) CPT: (test code = 8140) (NOTE) HIV AB/AG COMBO RFLX [id number] 00:00:00 Test Item Value Reference Range Interpretation Comments HIV 1/2 4TH GEN, RFLX CONF (test NON-REACTIVE code = 3514) HIV AB/AG COMBO RFLX [id number] 00:00:00 Test Item Value Reference Range Interpretation Comments HIV 1/2 4TH GEN, RFLX CONF (test NON-REACTIVE code = 3514) PAP TEST, THINPREP, [id number] 00:00:00 Test Item Value Reference Range Interpretation Comments SOURCE: (test code = Cervical/Endocervical 8001) SLIDES: (test code = 1 8011) LMP: (test code = 8021) 10/10/2018 SPECIMEN ADEQUACY: (NOTE) (test code = 58850) INTERPRETATION: (test NILM/NO EPITH. code = 84796) ABNORMALITY;SEE BELOW FRONT LOAD TRASH TRUCK DRIVER: (test RENAE GLENZ,CT(ASCP) code = 8101) LOCATION: (test code = (NOTE) 06744) CPT: (test code = 8140) (NOTE) HPV HIGH RISK WITH GENOTYPE, [id number] 00:00:00 Test Item Value Reference Range Interpretation Comments HPV HIGH RISK INTERP (test code = NEGATIVE 23736) HPV 16 (test code = 26625) NEGATIVE HPV 18 (test code = 04316) NEGATIVE HPV, HR, OTHER GENOTYPES (test code NEGATIVE = 51317) [id number] 00:00:00 Test Item Value Reference Range Interpretation Comments TSH, THIRD GENERATION (test code 2.250 UIU/ML = 2821) HPV HIGH RISK WITH GENOTYPE, [id number] 00:00:00 Test Item Value Reference Range Interpretation Comments HPV HIGH RISK INTERP (test code = NEGATIVE 91616) HPV 16 (test code = 45188) NEGATIVE HPV 18 (test code = 73949) NEGATIVE HPV, HR, OTHER GENOTYPES (test code NEGATIVE = 91670) [id number] 00:00:00 Test Item Value Reference Range Interpretation Comments TSH, THIRD GENERATION (test code 2.250 UIU/ML = 2821) [id number] 00:00:00 Test Item Value Reference Range Interpretation Comments TSH, THIRD GENERATION (test code 2.250 UIU/ML = 2821) GC AND CHLAMYDIA AMPLIFIED, [id number] 00:00:00 Test Item Value Reference Range Interpretation Comments GONORRHEA, TMA (test code = 42415) NEGATIVE CHLAMYDIA, TMA (test code = 83406) NEGATIVE GC AND CHLAMYDIA AMPLIFIED, [id number] 00:00:00 Test Item Value Reference Range Interpretation Comments GONORRHEA, TMA (test code = 96695) NEGATIVE CHLAMYDIA, TMA (test code = 77520) NEGATIVE GC AND CHLAMYDIA AMPLIFIED, [id number] 00:00:00 Test Item Value Reference Range Interpretation Comments GONORRHEA, TMA (test code = 72171) NEGATIVE CHLAMYDIA, TMA (test code = 94285) NEGATIVE PAP TEST, THINPREP, [id number] 00:00:00 Test Item Value Reference Range Interpretation Comments SOURCE: (test code = Cervical/Endocervical 8001) SLIDES: (test code = 1 8011) LMP: (test code = 8021) 10/10/2018 SPECIMEN ADEQUACY: (NOTE) (test code = 90876) INTERPRETATION: (test NILM/NO EPITH. code = 25033) ABNORMALITY;SEE BELOW FRONT LOAD TRASH TRUCK DRIVER: (test NOLVIA DE LA ROSA(ASCP) code = 8101) LOCATION: (test code = (NOTE) 96738) CPT: (test code = 8140) (NOTE) HIV AB/AG COMBO RFLX [id number] 00:00:00 Test Item Value Reference Range Interpretation Comments HIV 1/2 4TH GEN, RFLX CONF (test NON-REACTIVE code = 3514) HIV AB/AG COMBO RFLX [id number] 00:00:00 Test Item Value Reference Range Interpretation Comments HIV 1/2 4TH GEN, RFLX CONF (test NON-REACTIVE code = 3514) HIV AB/AG COMBO RFLX [id number] 00:00:00 Test Item Value Reference Range Interpretation Comments HIV 1/2 4TH GEN, RFLX CONF (test NON-REACTIVE code = 3514) PAP TEST, THINPREP, [id number] 00:00:00 Test Item Value Reference Range Interpretation Comments SOURCE: (test code = Cervical/Endocervical 8001) SLIDES: (test code = 1 8011) LMP: (test code = 8021) 10/10/2018 SPECIMEN ADEQUACY: (NOTE) (test code = 26393) INTERPRETATION: (test NILM/NO EPITH. code = 08941) ABNORMALITY;SEE BELOW FRONT LOAD TRASH TRUCK DRIVER: (test NOLVIA DE LA ROSA(ASCP) code = 8101) LOCATION: (test code = (NOTE) 10857) CPT: (test code = 8140) (NOTE) [id number] 00:00:00 Test Item Value Reference Range Interpretation Comments TSH, THIRD GENERATION (test code 2.250 UIU/ML = 2821) [id number] 00:00:00 Test Item Value Reference Range Interpretation Comments TSH, THIRD GENERATION (test code 2.250 UIU/ML = 2821) HPV HIGH RISK WITH GENOTYPE, [id number] 00:00:00 Test Item Value Reference Range Interpretation Comments HPV HIGH RISK INTERP (test code = NEGATIVE 89499) HPV 16 (test code = 73140) NEGATIVE HPV 18 (test code = 39401) NEGATIVE HPV, HR, OTHER GENOTYPES (test code NEGATIVE = 76451) [id number] 00:00:00 Test Item Value Reference Range Interpretation Comments TSH, THIRD GENERATION (test code 2.250 UIU/ML = 2821) HPV HIGH RISK WITH GENOTYPE, [id number] 00:00:00 Test Item Value Reference Range Interpretation Comments HPV HIGH RISK INTERP (test code = NEGATIVE 47181) HPV 16 (test code = 08954) NEGATIVE HPV 18 (test code = 40421) NEGATIVE HPV, HR, OTHER GENOTYPES (test code NEGATIVE = 41678) PAP TEST, THINPREP, [id number] 00:00:00 Test Item Value Reference Range Interpretation Comments SOURCE: (test code = Cervical/Endocervical 8001) SLIDES: (test code = 1 8011) LMP: (test code = 8021) 10/10/2018 SPECIMEN ADEQUACY: (NOTE) (test code = 48034) INTERPRETATION: (test NILM/NO EPITH. code = 20311) ABNORMALITY;SEE BELOW FRONT LOAD TRASH TRUCK DRIVER: (test NOLVIA DE LA ROSA(ASCP) code = 8101) LOCATION: (test code = (NOTE) 53607) CPT: (test code = 8140) (NOTE) [id number] 00:00:00 Test Item Value Reference Range Interpretation Comments TSH, THIRD GENERATION (test code 2.250 UIU/ML = 2821) [id number] 00:00:00 Test Item Value Reference Range Interpretation Comments TSH, THIRD GENERATION (test code 2.250 UIU/ML = 2821) HPV HIGH RISK WITH GENOTYPE, [id number] 00:00:00 Test Item Value Reference Range Interpretation Comments HPV HIGH RISK INTERP (test code = NEGATIVE 46329) HPV 16 (test code = 00741) NEGATIVE HPV 18 (test code = 90691) NEGATIVE HPV, HR, OTHER GENOTYPES (test code NEGATIVE = 70072) GC AND CHLAMYDIA AMPLIFIED, [id number] 00:00:00 Test Item Value Reference Range Interpretation Comments GONORRHEA, TMA (test code = 85977) NEGATIVE CHLAMYDIA, TMA (test code = 50373) NEGATIVE GC AND CHLAMYDIA AMPLIFIED, [id number] 00:00:00 Test Item Value Reference Range Interpretation Comments GONORRHEA, TMA (test code = 79540) NEGATIVE CHLAMYDIA, TMA (test code = 30704) NEGATIVE PAP TEST, THINPREP, [id number] 00:00:00 Test Item Value Reference Range Interpretation Comments SOURCE: (test code = Cervical/Endocervical 8001) SLIDES: (test code = 1 8011) LMP: (test code = 8021) 10/10/2018 SPECIMEN ADEQUACY: (NOTE) (test code = 66724) INTERPRETATION: (test NILM/NO EPITH. code = 61177) ABNORMALITY;SEE BELOW FRONT LOAD TRASH TRUCK DRIVER: (test NOLVIA DE LA ROSA(ASCP) code = 8101) LOCATION: (test code = (NOTE) 90987) CPT: (test code = 8140) (NOTE) HIV AB/AG COMBO RFLX [id number] 00:00:00 Test Item Value Reference Range Interpretation Comments HIV 1/2 4TH GEN, RFLX CONF (test NON-REACTIVE code = 3514) HIV AB/AG COMBO RFLX [id number] 00:00:00 Test Item Value Reference Range Interpretation Comments HIV 1/2 4TH GEN, RFLX CONF (test NON-REACTIVE code = 3514) PAP TEST, THINPREP, [id number] 00:00:00 Test Item Value Reference Range Interpretation Comments SOURCE: (test code = Cervical/Endocervical 8001) SLIDES: (test code = 1 8011) LMP: (test code = 8021) 10/10/2018 SPECIMEN ADEQUACY: (NOTE) (test code = 02957) INTERPRETATION: (test NILM/NO EPITH. code = 34816) ABNORMALITY;SEE BELOW FRONT LOAD TRASH TRUCK DRIVER: (test NOLVIA DE LA ROSA(ASCP) code = 8101) LOCATION: (test code = (NOTE) 99837) CPT: (test code = 8140) (NOTE) [id number] 00:00:00 Test Item Value Reference Range Interpretation Comments TSH, THIRD GENERATION (test code 2.250 UIU/ML = 2821) HPV HIGH RISK WITH GENOTYPE, [id number] 00:00:00 Test Item Value Reference Range Interpretation Comments HPV HIGH RISK INTERP (test code = NEGATIVE 26748) HPV 16 (test code = 69209) NEGATIVE HPV 18 (test code = 58038) NEGATIVE HPV, HR, OTHER GENOTYPES (test code NEGATIVE = 07121) HPV HIGH RISK WITH GENOTYPE, [id number] 00:00:00 Test Item Value Reference Range Interpretation Comments HPV HIGH RISK INTERP (test code = NEGATIVE 37303) HPV 16 (test code = 47802) NEGATIVE HPV 18 (test code = 11212) NEGATIVE HPV, HR, OTHER GENOTYPES (test code NEGATIVE = 04950) [id number] 00:00:00 Test Item Value Reference Range Interpretation Comments TSH, THIRD GENERATION (test code 2.250 UIU/ML = 2821) [id number] 00:00:00 Test Item Value Reference Range Interpretation Comments TSH, THIRD GENERATION (test code 2.250 UIU/ML = 2821) GC AND CHLAMYDIA AMPLIFIED, [id number] 00:00:00 Test Item Value Reference Range Interpretation Comments GONORRHEA, TMA (test code = 44028) NEGATIVE CHLAMYDIA, TMA (test code = 66813) NEGATIVE GC AND CHLAMYDIA AMPLIFIED, [id number] 00:00:00 Test Item Value Reference Range Interpretation Comments GONORRHEA, TMA (test code = 01730) NEGATIVE CHLAMYDIA, TMA (test code = 16642) NEGATIVE PAP TEST, THINPREP, [id number] 00:00:00 Test Item Value Reference Range Interpretation Comments SOURCE: (test code = Cervical/Endocervical 8001) SLIDES: (test code = 1 8011) LMP: (test code = 8021) 10/10/2018 SPECIMEN ADEQUACY: (NOTE) (test code = 79455) INTERPRETATION: (test NILM/NO EPITH. 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: (test NOLVIA DE LA ROSA(ASCP) code = 8101) LOCATION: (test code = (NOTE) 70379) CPT: (test code = 8140) (NOTE) HIV AB/AG COMBO RFLX [id number] 00:00:00 Test Item Value Reference Range Interpretation Comments HIV 1/2 4TH GEN, RFLX CONF (test NON-REACTIVE code = 3514) HIV AB/AG COMBO RFLX [id number] 00:00:00 Test Item Value Reference Range Interpretation Comments HIV 1/2 4TH GEN, RFLX CONF (test NON-REACTIVE code = 3514) HPV HIGH RISK WITH GENOTYPE, [id number] 00:00:00 Test Item Value Reference Range Interpretation Comments HPV HIGH RISK INTERP (test code = NEGATIVE 37554) HPV 16 (test code = 69708) NEGATIVE HPV 18 (test code = 09463) NEGATIVE HPV, HR, OTHER GENOTYPES (test code NEGATIVE = 34222) [id number] 00:00:00 Test Item Value Reference Range Interpretation Comments TSH, THIRD GENERATION (test code 2.250 UIU/ML = 2821) [id number] 00:00:00 Test Item Value Reference Range Interpretation Comments TSH, THIRD GENERATION (test code 2.250 UIU/ML = 2821) HPV HIGH RISK WITH GENOTYPE, [id number] 00:00:00 Test Item Value Reference Range Interpretation Comments HPV HIGH RISK INTERP (test code = NEGATIVE 35234) HPV 16 (test code = 89087) NEGATIVE HPV 18 (test code = 01848) NEGATIVE HPV, HR, OTHER GENOTYPES (test code NEGATIVE = 15378) [id number] 00:00:00 Test Item Value Reference Range Interpretation Comments TSH, THIRD GENERATION (test code 2.250 UIU/ML = 2821) CULTURE, [id number] 00:00:00 Test Item Value Reference Range Interpretation Comments CULTURE, URINE (test SPECIMEN NUMBER: code = 96736) [id number] CULTURE, [id number] 00:00:00 Test Item Value Reference Range Interpretation Comments CULTURE, URINE (test SPECIMEN NUMBER: code = 61286) [id number] CULTURE, [id number] 00:00:00 Test Item Value Reference Range Interpretation Comments CULTURE, URINE (test SPECIMEN NUMBER: code = 96167) [id number] CULTURE, [id number] 00:00:00 Test Item Value Reference Range Interpretation Comments CULTURE, URINE (test SPECIMEN NUMBER: code = 81732) [id number] CULTURE, [id number] 00:00:00 Test Item Value Reference Range Interpretation Comments CULTURE, URINE (test SPECIMEN NUMBER: code = 96481) [id number] CULTURE, [id number] 00:00:00 Test Item Value Reference Range Interpretation Comments CULTURE, URINE (test SPECIMEN NUMBER: code = 48458) [id number] CULTURE, [id number] 00:00:00 Test Item Value Reference Range Interpretation Comments CULTURE, URINE (test SPECIMEN NUMBER: code = 29152) [id number] CULTURE, [id number] 00:00:00 Test Item Value Reference Range Interpretation Comments CULTURE, URINE (test SPECIMEN NUMBER: code = 97792) [id number] CULTURE, [id number] 00:00:00 Test Item Value Reference Range Interpretation Comments CULTURE, URINE (test SPECIMEN NUMBER: code = 41216) [id number] CULTURE, [id number] 00:00:00 Test Item Value Reference Range Interpretation Comments CULTURE, URINE (test SPECIMEN NUMBER: code = 58667) [id number] CULTURE, [id number] 00:00:00 Test Item Value Reference Range Interpretation Comments CULTURE, URINE (test SPECIMEN NUMBER: code = 54378) [id number] CULTURE, [id number] 00:00:00 Test Item Value Reference Range Interpretation Comments CULTURE, URINE (test SPECIMEN NUMBER: code = 85538) [id number] CULTURE, [id number] 00:00:00 Test Item Value Reference Range Interpretation Comments CULTURE, URINE (test SPECIMEN NUMBER: code = 97426) [id number] CULTURE, [id number] 00:00:00 Test Item Value Reference Range Interpretation Comments CULTURE, URINE (test SPECIMEN NUMBER: code = 68362) [id number] CULTURE, [id number] 00:00:00 Test Item Value Reference Range Interpretation Comments CULTURE, URINE (test SPECIMEN NUMBER: code = 41362) [id number] CULTURE, [id number] 00:00:00 Test Item Value Reference Range Interpretation Comments CULTURE, URINE (test SPECIMEN NUMBER: code = 90170) [id number] CULTURE, [id number] 00:00:00 Test Item Value Reference Range Interpretation Comments CULTURE, URINE (test SPECIMEN NUMBER: code = 40390) [id number] CULTURE, [id number] 00:00:00 Test Item Value Reference Range Interpretation Comments CULTURE, URINE (test SPECIMEN NUMBER: code = 32436) [id number] CULTURE, [id number] 00:00:00 Test Item Value Reference Range Interpretation Comments CULTURE, URINE (test SPECIMEN NUMBER: code = 29855) [id number] CULTURE, [id number] 00:00:00 Test Item Value Reference Range Interpretation Comments CULTURE, URINE (test SPECIMEN NUMBER: code = 21708) [id number] CULTURE, [id number] 00:00:00 Test Item Value Reference Range Interpretation Comments CULTURE, URINE (test SPECIMEN NUMBER: code = 42259) [id number] VAGINAL PATHOGENS DNA [id number] 00:00:00 Test Item Value Reference Range Interpretation Comments RAMESH SPECIES (test code = 40546) NEGATIVE G. VAGINALIS (test code = 41016) POSITIVE T. VAGINALIS (test code = 92614) NEGATIVE VAGINAL PATHOGENS DNA [id number] 00:00:00 Test Item Value Reference Range Interpretation Comments RAMESH SPECIES (test code = 76373) NEGATIVE G. VAGINALIS (test code = 29204) POSITIVE T. VAGINALIS (test code = 08093) NEGATIVE VAGINAL PATHOGENS DNA [id number] 00:00:00 Test Item Value Reference Range Interpretation Comments RAMESH SPECIES (test code = 16499) NEGATIVE G. VAGINALIS (test code = 24998) POSITIVE T. VAGINALIS (test code = 32940) NEGATIVE VAGINAL PATHOGENS DNA [id number] 00:00:00 Test Item Value Reference Range Interpretation Comments RAMESH SPECIES (test code = 45667) NEGATIVE G. VAGINALIS (test code = 71695) POSITIVE T. VAGINALIS (test code = 59496) NEGATIVE VAGINAL PATHOGENS DNA [id number] 00:00:00 Test Item Value Reference Range Interpretation Comments RAMESH SPECIES (test code = 49667) NEGATIVE G. VAGINALIS (test code = 12222) POSITIVE T. VAGINALIS (test code = 39693) NEGATIVE VAGINAL PATHOGENS DNA [id number] 00:00:00 Test Item Value Reference Range Interpretation Comments RAMESH SPECIES (test code = 62011) NEGATIVE G. VAGINALIS (test code = 83891) POSITIVE T. VAGINALIS (test code = 40458) NEGATIVE VAGINAL PATHOGENS DNA [id number] 00:00:00 Test Item Value Reference Range Interpretation Comments RAMESH SPECIES (test code = 84261) NEGATIVE G. VAGINALIS (test code = 35102) POSITIVE T. VAGINALIS (test code = 72967) NEGATIVE VAGINAL PATHOGENS DNA [id number] 00:00:00 Test Item Value Reference Range Interpretation Comments RAMESH SPECIES (test code = 18717) NEGATIVE G. VAGINALIS (test code = 02758) POSITIVE T. VAGINALIS (test code = 11290) NEGATIVE VAGINAL PATHOGENS DNA [id number] 00:00:00 Test Item Value Reference Range Interpretation Comments RAMESH SPECIES (test code = 23188) NEGATIVE G. VAGINALIS (test code = 54188) POSITIVE T. VAGINALIS (test code = 35578) NEGATIVE VAGINAL PATHOGENS DNA [id number] 00:00:00 Test Item Value Reference Range Interpretation Comments RAMESH SPECIES (test code = 91126) NEGATIVE G. VAGINALIS (test code = 72664) POSITIVE T. VAGINALIS (test code = 94556) NEGATIVE VAGINAL PATHOGENS DNA [id number] 00:00:00 Test Item Value Reference Range Interpretation Comments RAMESH SPECIES (test code = 80481) NEGATIVE G. VAGINALIS (test code = 10482) POSITIVE T. VAGINALIS (test code = 26816) NEGATIVE VAGINAL PATHOGENS DNA [id number] 00:00:00 Test Item Value Reference Range Interpretation Comments RAMESH SPECIES (test code = 71301) NEGATIVE G. VAGINALIS (test code = 62717) POSITIVE T. VAGINALIS (test code = 33253) NEGATIVE VAGINAL PATHOGENS DNA [id number] 00:00:00 Test Item Value Reference Range Interpretation Comments RAMESH SPECIES (test code = 59457) NEGATIVE G. VAGINALIS (test code = 98094) POSITIVE T. VAGINALIS (test code = 48336) NEGATIVE VAGINAL PATHOGENS DNA [id number] 00:00:00 Test Item Value Reference Range Interpretation Comments RAMESH SPECIES (test code = 29715) NEGATIVE G. VAGINALIS (test code = 82920) POSITIVE T. VAGINALIS (test code = 22261) NEGATIVE VAGINAL PATHOGENS DNA [id number] 00:00:00 Test Item Value Reference Range Interpretation Comments RAMESH SPECIES (test code = 98949) NEGATIVE G. VAGINALIS (test code = 73300) POSITIVE T. VAGINALIS (test code = 22898) NEGATIVE VAGINAL PATHOGENS DNA [id number] 00:00:00 Test Item Value Reference Range Interpretation Comments RAMESH SPECIES (test code = 10685) NEGATIVE G. VAGINALIS (test code = 62448) POSITIVE T. VAGINALIS (test code = 28779) NEGATIVE VAGINAL PATHOGENS DNA [id number] 00:00:00 Test Item Value Reference Range Interpretation Comments RAMESH SPECIES (test code = 64846) NEGATIVE G. VAGINALIS (test code = 95315) POSITIVE T. VAGINALIS (test code = 23829) NEGATIVE VAGINAL PATHOGENS DNA [id number] 00:00:00 Test Item Value Reference Range Interpretation Comments RAMESH SPECIES (test code = 98391) NEGATIVE G. VAGINALIS (test code = 57312) POSITIVE T. VAGINALIS (test code = 49559) NEGATIVE VAGINAL PATHOGENS DNA [id number] 00:00:00 Test Item Value Reference Range Interpretation Comments RAMESH SPECIES (test code = 74219) NEGATIVE G. VAGINALIS (test code = 64439) POSITIVE T. VAGINALIS (test code = 20495) NEGATIVE VAGINAL PATHOGENS DNA [id number] 00:00:00 Test Item Value Reference Range Interpretation Comments RAMESH SPECIES (test code = 90269) NEGATIVE G. VAGINALIS (test code = 34283) POSITIVE T. VAGINALIS (test code = 28446) NEGATIVE VAGINAL PATHOGENS DNA [id number] 00:00:00 Test Item Value Reference Range Interpretation Comments RAMESH SPECIES (test code = 00178) NEGATIVE G. VAGINALIS (test code = 84398) POSITIVE T. VAGINALIS (test code = 42372) NEGATIVE GC AND CHLAMYDIA, AMPLIFIED, [id number] 00:00:00 Test Item Value Reference Range Interpretation Comments GONORRHEA, TMA (test code = 62798) NEGATIVE CHLAMYDIA, TMA (test code = 91553) NEGATIVE GC AND CHLAMYDIA, AMPLIFIED, [id number] 00:00:00 Test Item Value Reference Range Interpretation Comments GONORRHEA, TMA (test code = 53782) NEGATIVE CHLAMYDIA, TMA (test code = 22482) NEGATIVE GC AND CHLAMYDIA, AMPLIFIED, [id number] 00:00:00 Test Item Value Reference Range Interpretation Comments GONORRHEA, TMA (test code = 13010) NEGATIVE CHLAMYDIA, TMA (test code = 69031) NEGATIVE GC AND CHLAMYDIA, AMPLIFIED, [id number] 00:00:00 Test Item Value Reference Range Interpretation Comments GONORRHEA, TMA (test code = 17814) NEGATIVE CHLAMYDIA, TMA (test code = 84706) NEGATIVE GC AND CHLAMYDIA, AMPLIFIED, [id number] 00:00:00 Test Item Value Reference Range Interpretation Comments GONORRHEA, TMA (test code = 47785) NEGATIVE CHLAMYDIA, TMA (test code = 07175) NEGATIVE GC AND CHLAMYDIA, AMPLIFIED, [id number] 00:00:00 Test Item Value Reference Range Interpretation Comments GONORRHEA, TMA (test code = 09712) NEGATIVE CHLAMYDIA, TMA (test code = 83394) NEGATIVE GC AND CHLAMYDIA, AMPLIFIED, [id number] 00:00:00 Test Item Value Reference Range Interpretation Comments GONORRHEA, TMA (test code = 23474) NEGATIVE CHLAMYDIA, TMA (test code = 98517) NEGATIVE GC AND CHLAMYDIA, AMPLIFIED, [id number] 00:00:00 Test Item Value Reference Range Interpretation Comments GONORRHEA, TMA (test code = 32907) NEGATIVE CHLAMYDIA, TMA (test code = 80831) NEGATIVE GC AND CHLAMYDIA, AMPLIFIED, [id number] 00:00:00 Test Item Value Reference Range Interpretation Comments GONORRHEA, TMA (test code = 50891) NEGATIVE CHLAMYDIA, TMA (test code = 60050) NEGATIVE GC AND CHLAMYDIA, AMPLIFIED, [id number] 00:00:00 Test Item Value Reference Range Interpretation Comments GONORRHEA, TMA (test code = 59305) NEGATIVE CHLAMYDIA, TMA (test code = 86322) NEGATIVE GC AND CHLAMYDIA, AMPLIFIED, [id number] 00:00:00 Test Item Value Reference Range Interpretation Comments GONORRHEA, TMA (test code = 19870) NEGATIVE CHLAMYDIA, TMA (test code = 77577) NEGATIVE GC AND CHLAMYDIA, AMPLIFIED, [id number] 00:00:00 Test Item Value Reference Range Interpretation Comments GONORRHEA, TMA (test code = 72143) NEGATIVE CHLAMYDIA, TMA (test code = 50981) NEGATIVE GC AND CHLAMYDIA, AMPLIFIED, [id number] 00:00:00 Test Item Value Reference Range Interpretation Comments GONORRHEA, TMA (test code = 73998) NEGATIVE CHLAMYDIA, TMA (test code = 84216) NEGATIVE GC AND CHLAMYDIA, AMPLIFIED, [id number] 00:00:00 Test Item Value Reference Range Interpretation Comments GONORRHEA, TMA (test code = 97655) NEGATIVE CHLAMYDIA, TMA (test code = 97543) NEGATIVE GC AND CHLAMYDIA, AMPLIFIED, [id number] 00:00:00 Test Item Value Reference Range Interpretation Comments GONORRHEA, TMA (test code = 82469) NEGATIVE CHLAMYDIA, TMA (test code = 23693) NEGATIVE GC AND CHLAMYDIA, AMPLIFIED, [id number] 00:00:00 Test Item Value Reference Range Interpretation Comments GONORRHEA, TMA (test code = 53452) NEGATIVE CHLAMYDIA, TMA (test code = 63887) NEGATIVE GC AND CHLAMYDIA, AMPLIFIED, [id number] 00:00:00 Test Item Value Reference Range Interpretation Comments GONORRHEA, TMA (test code = 46545) NEGATIVE CHLAMYDIA, TMA (test code = 48049) NEGATIVE GC AND CHLAMYDIA, AMPLIFIED, [id number] 00:00:00 Test Item Value Reference Range Interpretation Comments GONORRHEA, TMA (test code = 43656) NEGATIVE CHLAMYDIA, TMA (test code = 16730) NEGATIVE GC AND CHLAMYDIA, AMPLIFIED, [id number] 00:00:00 Test Item Value Reference Range Interpretation Comments GONORRHEA, TMA (test code = 35238) NEGATIVE CHLAMYDIA, TMA (test code = 01764) NEGATIVE GC AND CHLAMYDIA, AMPLIFIED, [id number] 00:00:00 Test Item Value Reference Range Interpretation Comments GONORRHEA, TMA (test code = 87710) NEGATIVE CHLAMYDIA, TMA (test code = 83406) NEGATIVE GC AND CHLAMYDIA, AMPLIFIED, [id number] 00:00:00 Test Item Value Reference Range Interpretation Comments GONORRHEA, TMA (test code = 78862) NEGATIVE CHLAMYDIA, TMA (test code = 85838) NEGATIVE
[2023-03-01 19:20] LABS: Urine Bacteria <20 /HPF (<20); Urine Bilirubin NEGATIVE (Negative); Urine Blood 3+ (OVER) (Negative); Urine Clarity Turbid (Clear); Urine Color Light-Orange (Yellow); Urine Glucose NEGATIVE (Negative); Urine Mucus 2+ /HPF (None Seen); Urine Protein 2+ (Negative); Urine RBC >50 /HPF (None Seen); Urine Urobilinogen Normal (Normal); Urine WBC Clump Few /HPF (None Seen)
[2023-03-01 19:20] LABS: Hematocrit 34.7 % (36.0-45.0); RBC Red Blood Cell Count 4.14 M/uL (3.86-4.86)
[2023-03-01 19:21] LABS: Absolute Lymphocytes (CBC) 1.1 K/uL (0.7-4.9); Lymphocytes % 10.6 % (15.3-44.8); MPV 7.4 fL (7.6-11.3)
[2023-03-01 19:36] LABS: Albumin 3.6 g/dL (3.4-5.0); Bilirubin Total 0.5 mg/dL (0.2-1.0); Potassium 3.6 mEq/L (3.5-5.1); Protein, Total 7.2 g/dL (6.4-8.2)
[2023-03-01] MEDS ORDERED: NA CHLORIDE 0.9% 1,000 ML ONE (20:11)
[2023-03-01] MEDS ORDERED: MORPHINE 4 MG/ML SYR ONE ×2 (20:11→22:09)
[2023-03-01] MEDS ORDERED: ONDANSETRON 4 MG/2 ML VIAL ONE (20:11)
[2023-03-01] MEDS ORDERED: FAMOTIDINE 20 MG/2 ML VIAL IV ONE (20:11)
--- NOTE | 2023-03-01 21:53 | RAD REPORT ---
EXAM DESCRIPTION: CT - Abdomen Pelvis W Contrast - 03/01/2023 8:13 pm CLINICAL HISTORY: ABD PAIN COMPARISON: Abdomen Pelvis W Contrast dated 10/01/2022; Abdomen Pelvis W Contrast dated 8 TECHNIQUE: Thin cut axial CT imaging of the abdomen and pelvis was performed following intravenous a dministration of 70 mL Isovue 300. Multiplanar reformats were generated and reviewed. All CT scans are performed using dose optimization technique as appropriate and may include automated exposure control or mA/KV adjustment according to patient size. FINDINGS: No suspicious findings in the lung bases. The liver, spleen, and pancreas show no suspicious findings. Stable 1 centimeter central right lower lobe rounded hypoattenuating lesion, may represent a small cyst or hemangioma. Gallbladder and biliar y tree are also without suspicious finding. Symmetric renal function is seen with no hydronephrosis or suspicious renal mass. Mild urothelial enh ancement along the renal pelvis and upper ureters bilaterally. No dilated bowel loops or bowel wall thickening. No free air, free fluid or inflammatory stranding. T he appendix is normal in appearance. No hernia, mass or bulky lymphadenopathy. The urinary bladder is without significant finding. IUD appears to be in satisfactory position. Bulky appearance of the uterus particularly along the pos terior wall may relate to underlying fibroids. This is not significantly changed. No suspicious bony findings. IMPRESSION: Mild urothelial symmetric enhancement along the renal pelvis and upper ureters bilateral ly, not entirely specific, but could relate to ascending urinary tract infection. Please correlate cl inically and with urinalysis results. No other acute intra-abdominal process.
--- NOTE | 2023-03-01 22:17 | ER ---
Nurse's Notes [facility] Name: Aimee Randolph Age: 42 yrs Sex: Female : 1980 Arrival Date: 03/01/2023 Time: 17:16 Bed 19 Private MD: Diagnosis: Lower abdominal pain, unspecified;Low back pain;UTI/ Urinary tract infection, site not specified Presentation: 03/01 17:25 Chief complaint: Patient states: "I'm having severe pain in my lower stomach for 3 mb9 days. I've been taking 800mg of Ibuprofen and it's not helping. I'm super nauseous and my head hurts". Coronavirus screen: Vaccine status: Patient reports receiving the 2nd dose of the covid vaccine. Ebola Screen: No symptoms or risks identified at this time. Initial Sepsis Screen: Does the patient meet any 2 criteria? No. Patient's initial sepsis screen is negative. Does the patient have a suspected source of infection? No. Patient's initial sepsis screen is negative. Risk Assessment: Do you want to hurt yourself or someone else? Patient reports no desire to harm self or others. Onset of symptoms was March 01, 2023. 17:25 Method Of Arrival: Ambulatory mb9 17:25 Acuity: LAURITA 3 mb9 Triage Assessment: 17:28 General: Appears uncomfortable, Behavior is anxious. Pain: Complains of pain in abdomen.mb9 17:28 Neuro: [place] Agitation-Sedation Scale (RASS): 0 - Alert and Calm Level of mb9 Consciousness is awake, alert, obeys commands, Oriented to person, place, time, situation, Appropriate for age. Respiratory: Airway is patent Respiratory effort is even, unlabored, Respiratory pattern is regular, symmetrical. GI: Abdomen is round non-distended, Reports nausea. : Reports cloudy urine. Derm: Skin is pink, warm \\T\\ dry. Musculoskeletal: Range of motion: intact in all extremities. RN MEDICARE: 23:06 LMP N/A - Irregular menses kl Historical: - Allergies: 17:27 Ceclor; mb9 17:27 Latex, Natural Rubber; mb9 17:27 Levaquin; mb9 - PMHx: 17:28 uterus polyp; mb9 - PSHx: 17:27 section; Cholecystectomy; heart surgery; mb9 - Immunization history:: Adult Immunizations up to date. - Social history:: Smoking status: Patient denies any tobacco usage or history of. Screenin:21 [facility] ED Fall Risk Assessment (Adult) History of falling in the last 3 months, kl including since admission No falls in past 3 months (0 pts) Confusion or Disorientation No (0 pts) Intoxicated or Sedated No (0 pts) Impaired Gait No (0 pts) Mobility Assist Device Used No (0 pt) Altered Elimination No (0 pt) Score/Fall Risk Level 0 - 2 = Low Risk Oriented to surroundings, Maintained a safe environment. Abuse screen: Denies threats or abuse. Nutritional screening: No deficits noted. Tuberculosis screening: No symptoms or risk factors identified. Assessment: 20:30 General: Appears uncomfortable, well groomed, well developed, Behavior is cooperative. kl Pain: Complains of pain in abdomen Pain currently is 7 out of 10 on a pain scale. at worst was 10 out of 10 on a pain scale. Quality of pain is described as crampy. Neuro: No deficits noted. Cardiovascular: No deficits noted. Respiratory: No deficits noted. GI: Bowel sounds present X 4 quads. Abd is soft Abdomen is tender to palpation X 4 quads. : No deficits noted. No signs and/or symptoms were reported regarding the genitourinary system. EENT: No deficits noted. Derm: No deficits noted. No signs and/or symptoms reported regarding the dermatologic system. 23:06 Reassessment: Patient appears in no apparent distress at this time. Patient states kl feeling better. Patient states symptoms have improved. Vital Signs: 17:25 BP 160 / 103; Pulse 75; Resp 18; Temp 97.9; Pulse Ox 100% ; Weight 84.37 kg; Height 4 mb9 ft. 11 in. ; Pain 8/10; 21:22 BP 124 / 68; Pulse 77; Resp 18; Pulse Ox 99% ; kl 23:06 BP 120 / 62; Pulse 68; Resp 19; Temp 97(TE); Pulse Ox 99% on R/A; kl 17:25 Body Mass Index 37.57 (84.37 kg, 149.86 cm) mb9 17:25 Pain Scale: Adult mb9 ED Course: 17:18 Patient arrived in ED. kj1 17:21 Timoteo Pepper PA is PHCP. cp 17:21 Mayo Renae MD is Attending Physician. cp 17:27 Triage completed. mb9 17:27 Arm band placed on. mb9 19:03 Test, Urine Sent. mb9 19:03 Urinalysis w/ reflexes Sent. mb9 19:04 Missed attempt(s): 20 gauge in right forearm. bc6 19:11 Radiology exam delayed due to lab results not completed at this time. (BUN/Creatinine) jg10 test not completed at this time. IV insertion attempt and/or patient not having appropriate IV at this time. 19:17 Inserted saline lock: 20 gauge in right antecubital area, using aseptic technique. rv1 Blood collected. 20:15 CT Abd/Pelvis - IV Contrast Only In Process Unspecified. EDMS 23:06 No provider procedures requiring assistance completed. IV discontinued, intact, kl bleeding controlled, No redness/swelling at site. Pressure dressing applied. 23:07 Patient has correct armband on for positive identification. Placed in gown. Bed in low kl position. Call light in reach. Administered Medications: 20:07 Drug: Ondansetron IVP 4 mg Route: IVP; Site: right antecubital; kl 21:23 Follow up: Response: No adverse reaction; Pain is decreased kl 20:07 Drug: morphine IVP or IV 4 mg Route: IVP; Infused Over: 4 mins; Site: right antecubital;kl 21:23 Follow up: Response: No adverse reaction; Pain is decreased kl 20:28 Drug: NS 0.9% IV 1000 ml Route: IV; Rate: 1 bolus; Site: right antecubital; kl 21:23 Follow up: IV Status: Completed infusion; IV Intake: 1000ml kl 20:28 Drug: Famotidine IVP 20 mg Route: IVP; Site: right antecubital; kl 21:22 Follow up: Response: No adverse reaction kl 22:04 Drug: morphine IVP or IV 4 mg Route: IVP; Infused Over: 4 mins; Site: right antecubital;kl 23:05 Follow up: Response: No adverse reaction; Pain is decreased kl 22:31 Drug: Piperacillin-Tazobactam IVPB 3.375 grams Route: IVPB; Infused Over: 60 mins; kl Site: right antecubital; 23:05 Follow up: IV Status: Completed infusion; IV Intake: 100ml kl 22:31 Not Given (Patient Refused): Ketorolac IVP 15 mg IVP once kl Medication: 23:07 VIS not applicable for this client. kl Intake: 21:23 IV: 1000ml; Total: 1000ml. kl 23:05 IV: 100ml; Total: 1100ml. kl Outcome: 22:17 Discharge ordered by MD. cp 23:06 Discharged to home via wheelchair, with family. kl 23:06 Condition: improved 23:06 Discharge instructions given to patient, Instructed on discharge instructions, follow up and referral plans. medication usage, Demonstrated understanding of instructions, follow-up care, medications, Prescriptions given X 2. 23:07 Patient left the ED. kl Addendum: 03/05/2023 07:33 Addendum: Culture Results: Positive urine culture. No further action required. Bacteria e b sensitive to prescribed antibiotic. Signatures: Dispatcher [employer] EDMS Tanja Zhou RN RN kl Page, Corey, PA PA cp Botello, Elizabeth eb Jackson, Kandis kj1 Kirsten Preston0 Brandi Rodriguez RN RN Isabella Naylor rv1 Brigitte Hurtado bc6 Corrections: (The following items were deleted from the chart) 03/01 17:28 17:27 PMHx: None; romy mbSiva 17: 17:28 General: Appears uncomfortable, Behavior is anxious, romy mb9 19:49 19:49 Inserted saline lock: 20 gauge in right antecubital area, using aseptic rv1 technique. Blood collected. rv1
--- NOTE | 2023-03-01 22:18 | EDPHYS ---
Physician Documentation [facility] Name: Aimee Randolph Age: 42 yrs Sex: Female : 1980 Arrival Date: 03/01/2023 Time: 17:16 Bed 19 Private MD: ED Physician Mayo Renae HPI: 03/01 18:00 This 42 yrs old Female presents to ER via Ambulatory with complaints of cp Abdominal Pain. 18:00 The patient presents with abdominal pain in the lower abdomen. Onset: The cp symptoms/episode began/occurred 3 day(s) ago. The symptoms radiate to back. Associated signs and symptoms: Pertinent positives: nausea, headache, Pertinent negatives: constipation, diarrhea, fever, hematuria, vomiting. The symptoms are described as constant. 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 - Social history:: Smoking status: Patient denies any tobacco usage or history of. ROS: 18:05 Constitutional: Negative for body aches, fever. cp 18:05 Eyes: Negative for injury, pain, redness, and discharge. cp 18:05 ENT: Negative for drainage from ear(s), ear pain, sore throat, difficulty swallowing, difficulty handling secretions. 18:05 Cardiovascular: Negative for chest pain. 18:05 Respiratory: Negative for cough, shortness of breath, wheezing. 18:05 Abdomen/GI: Positive for abdominal pain, nausea, of the right lower quadrant and left lower quadrant, Negative for diarrhea, constipation. 18:05 Back: Positive for radiated pain. 18:05 : Negative for hematuria, vaginal bleeding, vaginal discharge. 18:05 Neuro: Negative for altered mental status, dizziness, headache, weakness. 18:05 All other systems are negative. Exam: 18:10 Constitutional: The patient appears in no acute distress, alert, awake, non-toxic, well cp developed, well nourished, overweight 18:10 Head/Face: Normocephalic, atraumatic. cp 18:10 Eyes: Periorbital structures: appear normal, Conjunctiva: normal, no exudate, no injection, Sclera: no appreciated abnormality, Lids and lashes: appear normal, bilaterally. 18:10 ENT: External ear(s): are unremarkable, Nose: is normal, Mouth: Lips: moist, Oral mucosa: pink and intact, moist, Posterior pharynx: is normal, airway is patent, no erythema, no exudate. 18:10 Chest/axilla: Inspection: normal. 18:10 Cardiovascular: Rate: normal, Rhythm: regular. 18:10 Respiratory: the patient does not display signs of respiratory distress, Respirations: normal, no use of accessory muscles, no retractions, labored breathing, is not present, Breath sounds: are clear throughout, no decreased breath sounds, no stridor, no wheezing. 18:10 Abdomen/GI: Inspection: abdomen appears normal, Bowel sounds: active, all quadrants, Palpation: soft, in all quadrants, severe abdominal tenderness, in the right lower quadrant and left lower quadrant, rebound tenderness, is not appreciated, involuntary guarding, is not appreciated. 18:10 Back: CVA tenderness, is absent. 18:10 Neuro: Orientation: to person, place \T\ time. Mentation: is normal. Vital Signs: 17:25 BP 160 / 103; Pulse 75; Resp 18; Temp 97.9; Pulse Ox 100% ; Weight 84.37 kg; Height 4 mb9 ft. 11 in. ; Pain 8/10; 21:22 BP 124 / 68; Pulse 77; Resp 18; Pulse Ox 99% ; kl 23:06 BP 120 / 62; Pulse 68; Resp 19; Temp 97(TE); Pulse Ox 99% on R/A; kl 17:25 Body Mass Index 37.57 (84.37 kg, 149.86 cm) mb9 17:25 Pain Scale: Adult mb9 MDM: 17:31 Patient medically screened. cp 22:16 Data reviewed: vital signs, nurses notes, lab test result(s), radiologic studies, CT cp scan. 22:16 Differential diagnosis: appendicitis, non-specific abd pain, Pyelonephritis, cp Ureterolithiasis, urinary tract infection. I considered the following discharge prescriptions or medication management in the emergency department Medications were administered in the Emergency Department. See MAR. Counseling: I had a detailed discussion with the patient and/or guardian regarding: the historical points, exam findings, and any diagnostic results supporting the discharge/admit diagnosis, lab results, radiology results, the need for outpatient follow up, a family practitioner, to return to the emergency department if symptoms worsen or persist or if there are any questions or concerns that arise at home. 03/01 17:31 Order name: CBC with Diff; Complete Time: 19:39 cp 03/01 19:39 Interpretation: Normal except: HGB 11.5; HCT 34.7; MPV 7.4; HELGA% 83.4; LYM% 10.6; NEUT cp A 8.6. 03/01 17:31 Order name: CMP; Complete Time: 19:39 cp 03/01 22:02 Interpretation: Reviewed. 03/01 17: Order name: Lipase; Complete Time: 19:39 cp 03/01 17:31 Order name: Test, Urine; Complete Time: 19:39 cp 03/01 17:31 Order name: Urinalysis w/ reflexes; Complete Time: 19:39 cp 03/01 19:40 Interpretation: Normal except: [facility] Turbid; UBLD 3+ (OVER); UPROT 2+; UESTR 500; UWBC cp >50; URBC >50; UWBC Clump Few. 03/01 19:25 Order name: Urine Culture EDNC 03/01 18:17 Order name: CT Abd/Pelvis - IV Contrast Only; Complete Time: 22:01 cp 03/01 17:31 Order name: IV Saline Lock; Complete Time: 19:50 cp 03/01 17:31 Order name: Labs collected and sent; Complete Time: 19:50 cp 03/01 22:03 Order name: PO challenge; Complete Time: 22:23 cp Administered Medications: 20:07 Drug: Ondansetron IVP 4 mg Route: IVP; Site: right antecubital; kl 21:23 Follow up: Response: No adverse reaction; Pain is decreased kl 20:07 Drug: morphine IVP or IV 4 mg Route: IVP; Infused Over: 4 mins; Site: right antecubital;kl 21:23 Follow up: Response: No adverse reaction; Pain is decreased kl 20:28 Drug: NS 0.9% IV 1000 ml Route: IV; Rate: 1 bolus; Site: right antecubital; kl 21:23 Follow up: IV Status: Completed infusion; IV Intake: 1000ml kl 20:28 Drug: Famotidine IVP 20 mg Route: IVP; Site: right antecubital; kl 21:22 Follow up: Response: No adverse reaction kl 22:04 Drug: morphine IVP or IV 4 mg Route: IVP; Infused Over: 4 mins; Site: right antecubital;kl 23:05 Follow up: Response: No adverse reaction; Pain is decreased kl 22:31 Drug: Piperacillin-Tazobactam IVPB 3.375 grams Route: IVPB; Infused Over: 60 mins; kl Site: right antecubital; 23:05 Follow up: IV Status: Completed infusion; IV Intake: 100ml kl 22:31 Not Given (Patient Refused): Ketorolac IVP 15 mg IVP once kl Disposition Summary: 03/01/23 22:17 Discharge Ordered Location: Home cp Problem: new cp Symptoms: have improved cp Condition: Stable cp Diagnosis - Lower abdominal pain, unspecified cp - Low back pain cp - UTI/ Urinary tract infection, site not specified cp Followup: cp - With: Private Physician - When: 2 - 3 days - Reason: Recheck today's complaints Discharge Instructions: - Discharge Summary Sheet cp - Abdominal Pain, Adult cp - Acute Back Pain, Adult cp - Urinary Tract Infection, Adult cp - Back Exercises cp Forms: - Work release form kl - Medication Reconciliation Form cp - Thank You Letter cp - Antibiotic Education cp - Prescription Opioid Use cp Prescriptions: - Augmentin 875-125 mg Oral Tablet - take 1 tablet by ORAL route every 12 hours for 10 days; 20 tablet; Refills: 0, cp Product Selection Permitted - Zofran 4 mg Oral Tablet - take 1 tablet by ORAL route every 12 hours As needed; 20 tablet; Refills: 0, cp Product Selection Permitted - Diclofenac Sodium 75 mg Oral Tablet Sustained Release - take 1 tablet by ORAL route 2 times per day; 30 tablet; Refills: 0, Product cp Selection Permitted Signatures: Dispatcher [employer] Tanja Lantigua RN Timoteo Torres PA PA cp Breneman, Mary Beth, RN RN [id number] Corrections: (The following items were deleted from the chart) 17:28 17:27 PMHx: None; romy mb9
[2023-03-01] MEDS ORDERED: NA CHLORIDE 0.9% 100 ML ONE (22:33)
[2023-03-01] MEDS ORDERED: PIPERACIL/TAZO 3.375 GM VIAL IV ONE (22:33)
[2023-03-01 23:32] VITALS: O2SAT 99
[2023-03-01 23:33] VITALS: BP 120/62; TEMP 97
== END 2023-03-01 23:07 | disposition home or self-care (01) ==
LOC: ER 17:16
DX: N39.0 Urinary tract infection, site not specified (principal); M54.50 Low back pain, unspecified; Z88.1 Allergy status to other antibiotic agents; Z91.040 Latex allergy status; Z91.048 Other nonmedicinal substance allergy status
CPT/HCPCS: 96365; 96361; 87088; 85025; 81001; 87086; 36415; 81025; 87077; 87186; 83690; 80053; 74177; 96375; 99284; Q9967; J2543; J2405; J7030

== ENCOUNTER 2023-05-31 02:43 | Emergency (ER) | payer OTHER ==
--- OUTSIDE RECORDS SUMMARY | 2023-05-31 02:58 | XMS REPORT | Continuity of Care Document ---
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 tablet (six) Branch hours as needed for Pain (scale 1-3) or Pain (scale 4-6). ibuprofen Yes [id number] 600mg Take 1 [facility] 600 mg 3-28 tablet by ity of tablet 00:00: mouth [place] 00 every 6 Medical (six) Branch hours as needed for Pain (scale 1-3) or Pain (scale 4-6). acetaminoph Yes [id number] 650mg Take 2 [facility] en 3-28 tablets by ity of (TYLENOL) 00:00: mouth [place] 325 mg 00 every 6 Medical tablet (six) Branch hours as needed for Pain (scale 1-3) or Pain (scale 4-6). ibuprofen 2023-0 Yes [id number] 600mg Take 1 [facility] 600 mg 3-28 tablet by ity of tablet 00:00: mouth [place] 00 every 6 Medical (six) Branch hours as needed for Pain (scale 1-3) or Pain (scale 4-6). acetaminoph 2022-0 Yes [id number] 650mg Take 2 [facility] en 3-28 tablets by ity of (TYLENOL) 00:00: mouth [place] 325 mg 00 every 6 Medical tablet (six) Branch hours as needed for Pain (scale 1-3) or Pain (scale 4-6). ibuprofen 2022-0 Yes [id number] 600mg Take 1 [facility] 600 mg 3-28 tablet by ity of tablet 00:00: mouth [place] 00 every 6 Medical (six) Branch hours as needed for Pain (scale 1-3) or Pain (scale 4-6). acetaminoph 2022-0 Yes [id number] 650mg Take 2 [facility] en 3-28 tablets by ity of (TYLENOL) 00:00: mouth [place] 325 mg 00 every 6 Medical tablet (six) Branch hours as needed for Pain (scale 1-3) or Pain (scale 4-6). ibuprofen 0 Yes [id number] 600mg Take 1 [facility] 600 mg 3-28 tablet by ity of tablet 00:00: mouth [place] 00 every 6 Medical (six) Branch hours as needed for Pain (scale 1-3) or Pain (scale 4-6). acetaminoph 2022-0 Yes [id number] 650mg Take 2 [facility] en 3-28 tablets by ity of (TYLENOL) 00:00: mouth [place] 325 mg 00 every 6 Medical tablet (six) Branch hours as needed for Pain (scale 1-3) or Pain (scale 4-6). ibuprofen 2022-0 Yes [id number] 600mg Take 1 [facility] 600 mg 3-28 tablet by ity of tablet 00:00: mouth [place] 00 every 6 Medical (six) Branch hours as needed for Pain (scale 1-3) or Pain (scale 4-6). acetaminoph 2022-0 Yes [id number] 650mg Take 2 [facility] en 3-28 tablets by ity of (TYLENOL) 00:00: mouth [place] 325 mg 00 every 6 Medical tablet (six) Branch hours as needed for Pain (scale 1-3) or Pain (scale 4-6). ibuprofen 2023-0 Yes [id number] 600mg Take 1 [facility] 600 mg 3-28 tablet by ity of tablet 00:00: mouth [place] 00 every 6 Medical (six) Branch hours as needed for Pain (scale 1-3) or Pain (scale 4-6). acetaminoph 3-0 Yes [id number] 650mg Take 2 [facility] en 3-28 tablets by ity of (TYLENOL) 00:00: mouth [place] 325 mg 00 every 6 Medical tablet (six) Branch hours as needed for Pain (scale 1-3) or Pain (scale 4-6). ibuprofen 2022-0 Yes [id number] 600mg Take 1 [facility] 600 mg 3-28 tablet by ity of tablet 00:00: mouth [place] 00 every 6 Medical (six) Branch hours as needed for Pain (scale 1-3) or Pain (scale 4-6). acetaminoph 2022-0 Yes [id number] 650mg Take 2 [facility] en 3-28 tablets by ity of (TYLENOL) 00:00: mouth [place] 325 mg 00 every 6 Medical tablet (six) Branch hours as needed for Pain (scale 1-3) or Pain (scale 4-6). ibuprofen 2022-0 Yes [id number] 600mg Take 1 [facility] 600 mg 3-28 tablet by ity of tablet 00:00: mouth [place] 00 every 6 Medical (six) Branch hours as needed for Pain (scale 1-3) or Pain (scale 4-6). acetaminoph 3-0 Yes [id number] 650mg Take 2 [facility] en 3-28 tablets by ity of (TYLENOL) 00:00: mouth [place] 325 mg 00 every 6 Medical tablet (six) Branch hours as needed for Pain (scale 1-3) or Pain (scale 4-6). ibuprofen 2023-0 Yes [id number] 600mg Take 1 [facility] 600 mg 3-28 tablet by ity of tablet 00:00: mouth [place] 00 every 6 Medical (six) Branch hours as needed for Pain (scale 1-3) or Pain (scale 4-6). acetaminoph 2023-0 Yes [id number] 650mg Take 2 [facility] en 3-28 tablets by ity of (TYLENOL) 00:00: mouth [place] 325 mg 00 every 6 Medical tablet (six) Branch hours as needed for Pain (scale 1-3) or Pain (scale 4-6). ibuprofen 2023-0 Yes [id number] 600mg Take 1 [facility] 600 mg 3-28 tablet by ity of tablet 00:00: mouth [place] 00 every 6 Medical (six) Branch hours as needed for Pain (scale 1-3) or Pain (scale 4-6). acetaminoph 2023-0 Yes [id number] 650mg Take 2 [facility] en 3-28 tablets by ity of (TYLENOL) 00:00: mouth [place] 325 mg 00 every 6 Medical tablet (six) Branch hours as needed for Pain (scale 1-3) or Pain (scale 4-6). ibuprofen 2023-0 Yes [id number] 600mg Take 1 [facility] 600 mg 3-28 tablet by ity of tablet 00:00: mouth [place] 00 every 6 Medical (six) Branch hours as needed for Pain (scale 1-3) or Pain (scale 4-6). acetaminoph 2023-0 Yes [id number] 650mg Take 2 [facility] en 3-28 tablets by ity of (TYLENOL) 00:00: mouth [place] 325 mg 00 every 6 Medical tablet (six) Branch hours as needed for Pain (scale 1-3) or Pain (scale 4-6). ibuprofen 2023-0 Yes [id number] 600mg Take 1 [facility] 600 mg 3-28 tablet by ity of tablet 00:00: mouth [place] 00 every 6 Medical (six) Branch hours as needed for Pain (scale 1-3) or Pain (scale 4-6). acetaminoph 2023-0 Yes [id number] 650mg Take 2 [facility] en 3-28 tablets by ity of (TYLENOL) 00:00: mouth [place] 325 mg 00 every 6 Medical tablet (six) Branch hours as needed for Pain (scale 1-3) or Pain (scale 4-6). ibuprofen 2023-0 Yes [id number] 600mg Take 1 [facility] 600 mg 3-28 tablet by ity of tablet 00:00: mouth [place] 00 every 6 Medical (six) Branch hours as needed for Pain (scale 1-3) or Pain (scale 4-6). acetaminoph 2023-0 Yes [id number] 650mg Take 2 [facility] en 3-28 tablets by ity of (TYLENOL) 00:00: mouth [place] 325 mg 00 every 6 Medical tablet (six) Branch hours as needed for Pain (scale 1-3) or Pain (scale 4-6). ibuprofen 2023-0 Yes [id number] 600mg Take 1 [facility] 600 mg 3-28 tablet by ity of tablet 00:00: mouth [place] 00 every 6 Medical (six) Branch hours as needed for Pain (scale 1-3) or Pain (scale 4-6). acetaminoph 2023-0 Yes [id number] 650mg Take 2 [facility] en 3-28 tablets by ity of (TYLENOL) 00:00: mouth [place] 325 mg 00 every 6 Medical tablet (six) Branch hours as needed for Pain (scale 1-3) or Pain (scale 4-6). ibuprofen 2023-0 Yes [id number] 600mg Take 1 [facility] 600 mg 3-28 tablet by ity of tablet 00:00: mouth [place] 00 every 6 Medical (six) Branch hours as needed for Pain (scale 1-3) or Pain (scale 4-6). acetaminoph 2023-0 Yes [id number] 650mg Take 2 [facility] en 3-28 tablets by ity of (TYLENOL) 00:00: mouth [place] 325 mg 00 every 6 Medical tablet (six) Branch hours as needed for Pain (scale 1-3) or Pain (scale 4-6). ibuprofen 2023-0 Yes [id number] 600mg Take 1 [facility] 600 mg 3-28 tablet by ity of tablet 00:00: mouth [place] 00 every 6 Medical (six) Branch hours as needed for Pain (scale 1-3) or Pain (scale 4-6). acetaminoph 2023-0 Yes [id number] 650mg Take 2 [facility] en 3-28 tablets by ity of (TYLENOL) 00:00: mouth [place] 325 mg 00 every 6 Medical tablet (six) Branch hours as needed for Pain (scale 1-3) or Pain (scale 4-6). ibuprofen 2023-0 Yes [id number] 600mg Take 1 [facility] 600 mg 3-28 tablet by ity of tablet 00:00: mouth [place] 00 every 6 Medical (six) Branch hours as needed for Pain (scale 1-3) or Pain (scale 4-6). acetaminoph 2023-0 Yes [id number] 650mg Take 2 [facility] en 3-28 tablets by ity of (TYLENOL) 00:00: mouth [place] 325 mg 00 every 6 Medical tablet (six) Branch hours as needed for Pain (scale 1-3) or Pain (scale 4-6). ibuprofen 3-0 Yes [id number] 600mg Take 1 [facility] 600 mg 3-28 tablet by ity of tablet 00:00: mouth [place] 00 every 6 Medical (six) Branch hours as needed for Pain (scale 1-3) or Pain (scale 4-6). acetaminoph 3-0 Yes [id number] 650mg Take 2 [facility] en 3-28 tablets by ity of (TYLENOL) 00:00: mouth [place] 325 mg 00 every 6 Medical tablet (six) Branch hours as needed for Pain (scale 1-3) or Pain (scale 4-6). ibuprofen 2022-0 Yes [id number] 600mg Take 1 [facility] 600 mg 3-28 tablet by ity of tablet 00:00: mouth [place] 00 every 6 Medical (six) Branch hours as needed for Pain (scale 1-3) or Pain (scale 4-6). acetaminoph 2022-0 Yes [id number] 650mg Take 2 [facility] en 3-28 tablets by ity of (TYLENOL) 00:00: mouth [place] 325 mg 00 every 6 Medical tablet (six) Branch hours as needed for Pain (scale 1-3) or Pain (scale 4-6). ibuprofen 2022-0 Yes [id number] 600mg Take 1 [facility] 600 mg 3-28 tablet by ity of tablet 00:00: mouth [place] 00 every 6 Medical (six) Branch hours as needed for Pain (scale 1-3) or Pain (scale 4-6). acetaminoph 3-0 Yes [id number] 650mg Take 2 [facility] en 3-28 tablets by ity of (TYLENOL) 00:00: mouth [place] 325 mg 00 every 6 Medical tablet (six) Branch hours as needed for Pain (scale 1-3) or Pain (scale 4-6). ibuprofen 2023-0 Yes [id number] 600mg Take 1 [facility] 600 mg 3-28 tablet by ity of tablet 00:00: mouth [place] 00 every 6 Medical (six) Branch hours as needed for Pain (scale 1-3) or Pain (scale 4-6). acetaminoph 2023-0 Yes [id number] 650mg Take 2 [facility] en 3-28 tablets by ity of (TYLENOL) 00:00: mouth [place] 325 mg 00 every 6 Medical tablet (six) Branch hours as needed for Pain (scale 1-3) or Pain (scale 4-6). ibuprofen 2023-0 Yes [id number] 600mg Take 1 [facility] 600 mg 3-28 tablet by ity of tablet 00:00: mouth [place] 00 every 6 Medical (six) Branch hours as needed for Pain (scale 1-3) or Pain (scale 4-6). acetaminoph 2023-0 Yes [id number] 650mg Take 2 [facility] en 3-28 tablets by ity of (TYLENOL) 00:00: mouth [place] 325 mg 00 every 6 Medical tablet (six) Branch hours as needed for Pain (scale 1-3) or Pain (scale 4-6). ibuprofen 2023-0 Yes [id number] 600mg Take 1 [facility] 600 mg 3-28 tablet by ity of tablet 00:00: mouth [place] 00 every 6 Medical (six) Branch hours as needed for Pain (scale 1-3) or Pain (scale 4-6). acetaminoph 2022-0 Yes [id number] 650mg Take 2 [facility] en 3-28 tablets by ity of (TYLENOL) 00:00: mouth [place] 325 mg 00 every 6 Medical tablet (six) Branch hours as needed for Pain (scale 1-3) or Pain (scale 4-6). ibuprofen 3-0 Yes [id number] 600mg Take 1 [facility] 600 mg 3-28 tablet by ity of tablet 00:00: mouth [place] 00 every 6 Medical (six) Branch hours as needed for Pain (scale 1-3) or Pain (scale 4-6). acetaminoph 3-0 Yes [id number] 650mg Take 2 [facility] en 3-28 tablets by ity of (TYLENOL) 00:00: mouth [place] 325 mg 00 every 6 Medical tablet (six) Branch hours as needed for Pain (scale 1-3) or Pain (scale 4-6). ibuprofen 2023-0 Yes [id number] 600mg Take 1 [facility] 600 mg 3-28 tablet by ity of tablet 00:00: mouth [place] 00 every 6 Medical (six) Branch hours as needed for Pain (scale 1-3) or Pain (scale 4-6). acetaminoph 2023-0 Yes [id number] 650mg Take 2 [facility] en 3-28 tablets by ity of (TYLENOL) 00:00: mouth [place] 325 mg 00 every 6 Medical tablet (six) Branch hours as needed for Pain (scale 1-3) or Pain (scale 4-6). ibuprofen 2023-0 Yes [id number] 600mg Take 1 [facility] 600 mg 3-28 tablet by ity of tablet 00:00: mouth [place] 00 every 6 Medical (six) Branch hours as needed for Pain (scale 1-3) or Pain (scale 4-6). acetaminoph 2022-0 Yes [id number] 650mg Take 2 [facility] en 3-28 tablets by ity of (TYLENOL) 00:00: mouth [place] 325 mg 00 every 6 Medical tablet (six) Branch hours as needed for Pain (scale 1-3) or Pain (scale 4-6). ibuprofen 2022-0 Yes [id number] 600mg Take 1 [facility] 600 mg 3-28 tablet by ity of tablet 00:00: mouth [place] 00 every 6 Medical (six) Branch hours as needed for Pain (scale 1-3) or Pain (scale 4-6). acetaminoph 2022-0 Yes [id number] 650mg Take 2 [facility] en 3-28 tablets by ity of (TYLENOL) 00:00: mouth [place] 325 mg 00 every 6 Medical tablet (six) Branch hours as needed for Pain (scale 1-3) or Pain (scale 4-6). ibuprofen 2022-0 Yes [id number] 600mg Take 1 [facility] 600 mg 3-28 tablet by ity of tablet 00:00: mouth [place] 00 every 6 Medical (six) Branch hours as needed for Pain (scale 1-3) or Pain (scale 4-6). acetaminoph 2022-0 Yes [id number] 650mg Take 2 [facility] en 3-28 tablets by ity of (TYLENOL) 00:00: mouth [place] 325 mg 00 every 6 Medical tablet (six) Branch hours as needed for Pain (scale 1-3) or Pain (scale 4-6). ibuprofen 2023-0 Yes [id number] 600mg Take 1 [facility] 600 mg 3-28 tablet by ity of tablet 00:00: mouth [place] 00 every 6 Medical (six) Branch hours as needed for Pain (scale 1-3) or Pain (scale 4-6). acetaminoph 2023-0 Yes [id number] 650mg Take 2 [facility] en 3-28 tablets by ity of (TYLENOL) 00:00: mouth [place] 325 mg 00 every 6 Medical tablet (six) Branch hours as needed for Pain (scale 1-3) or Pain (scale 4-6). ibuprofen 2022-0 Yes [id number] 600mg Take 1 [facility] 600 mg 3-28 tablet by ity of tablet 00:00: mouth [place] 00 every 6 Medical (six) Branch hours as needed for Pain (scale 1-3) or Pain (scale 4-6). acetaminoph 2022-0 Yes [id number] 650mg Take 2 [facility] en 3-28 tablets by ity of (TYLENOL) 00:00: mouth [place] 325 mg 00 every 6 Medical tablet (six) Branch hours as needed for Pain (scale 1-3) or Pain (scale 4-6). ibuprofen 2022-0 Yes [id number] 600mg Take 1 [facility] 600 mg 3-28 tablet by ity of tablet 00:00: mouth [place] 00 every 6 Medical (six) Branch hours as needed for Pain (scale 1-3) or Pain (scale 4-6). acetaminoph 2022-0 Yes [id number] 650mg Take 2 [facility] en 3-28 tablets by ity of (TYLENOL) 00:00: mouth [place] 325 mg 00 every 6 Medical tablet (six) Branch hours as needed for Pain (scale 1-3) or Pain (scale 4-6). ibuprofen 2022-0 Yes [id number] 600mg Take 1 [facility] 600 mg 3-28 tablet by ity of tablet 00:00: mouth [place] 00 every 6 Medical (six) Branch hours as needed for Pain (scale 1-3) or Pain (scale 4-6). acetaminoph 2022-0 Yes [id number] 650mg Take 2 [facility] en 3-28 tablets by ity of (TYLENOL) 00:00: mouth [place] 325 mg 00 every 6 Medical tablet (six) Branch hours as needed for Pain (scale 1-3) or Pain (scale 4-6). ibuprofen 2022-0 Yes [id number] 600mg Take 1 [facility] 600 mg 3-28 tablet by ity of tablet 00:00: mouth [place] 00 every 6 Medical (six) Branch hours as needed for Pain (scale 1-3) or Pain (scale 4-6). acetaminoph 2023-0 Yes [id number] 650mg Take 2 [facility] en 3-28 tablets by ity of (TYLENOL) 00:00: mouth [place] 325 mg 00 every 6 Medical tablet (six) Branch hours as needed for Pain (scale 1-3) or Pain (scale 4-6). ibuprofen 2022-0 Yes [id number] 600mg Take 1 [facility] 600 mg 3-28 tablet by ity of tablet 00:00: mouth [place] 00 every 6 Medical (six) Branch hours as needed for Pain (scale 1-3) or Pain (scale 4-6). acetaminoph 2022-0 Yes [id number] 650mg Take 2 [facility] en 3-28 tablets by ity of (TYLENOL) 00:00: mouth [place] 325 mg 00 every 6 Medical tablet (six) Branch hours as needed for Pain (scale 1-3) or Pain (scale 4-6). ibuprofen 2022-0 Yes [id number] 600mg Take 1 [facility] 600 mg 3-28 tablet by ity of tablet 00:00: mouth [place] 00 every 6 Medical (six) Branch hours as needed for Pain (scale 1-3) or Pain (scale 4-6). acetaminoph 2022-0 Yes [id number] 650mg Take 2 [facility] en 3-28 tablets by ity of (TYLENOL) 00:00: mouth [place] 325 mg 00 every 6 Medical tablet (six) Branch hours as needed for Pain (scale 1-3) or Pain (scale 4-6). ibuprofen 2022-0 Yes [id number] 600mg Take 1 [facility] 600 mg 3-28 tablet by ity of tablet 00:00: mouth [place] 00 every 6 Medical (six) Branch hours as needed for Pain (scale 1-3) or Pain (scale 4-6). acetaminoph 2022-0 Yes [id number] 650mg Take 2 [facility] en 3-28 tablets by ity of (TYLENOL) 00:00: mouth [place] 325 mg 00 every 6 Medical tablet (six) Branch hours as needed for Pain (scale 1-3) or Pain (scale 4-6). ibuprofen 2022-0 Yes [id number] 600mg Take 1 [facility] 600 mg 3-28 tablet by ity of tablet 00:00: mouth [place] 00 every 6 Medical (six) Branch hours as needed for Pain (scale 1-3) or Pain (scale 4-6). acetaminoph Yes [id number] 650mg Take 2 [facility] en 3-28 tablets by ity of (TYLENOL) 00:00: mouth [place] 325 mg 00 every 6 Medical tablet (six) Branch hours as needed for Pain (scale 1-3) or Pain (scale 4-6). ibuprofen Yes [id number] 600mg Take 1 [facility] 600 mg 3-28 tablet by ity of tablet 00:00: mouth [place] 00 every 6 Medical (six) Branch hours as needed for Pain (scale 1-3) or Pain (scale 4-6). acetaminoph Yes [id number] 650mg Take 2 [facility] en 3-28 tablets by ity of (TYLENOL) 00:00: mouth [place] 325 mg 00 every 6 Medical tablet (six) Branch hours as needed for Pain (scale 1-3) or Pain (scale 4-6). ibuprofen Yes [id number] 600mg Take 1 [facility] 600 mg 3-28 tablet by ity of tablet 00:00: mouth [place] 00 every 6 Medical (six) Branch hours as needed for Pain (scale 1-3) or Pain (scale 4-6). HYDROcodone 2022- No [id number] 1{tbl} Take 1 U nivers -acetaminop 3-28 03-30 tablet by it y of hen 5-325 00:00: 04:59 mouth [place] mg tablet 00 :00 every 6 Medical (six) Branch hours as needed for Pain (scale 7-10) for up to 1 day. Indication s: acute pain HYDROcodone 2022- No [id number] 1{tbl} Take 1 U nivers -acetaminop 3-28 03-30 tablet by it y of hen 5-325 00:00: 04:59 mouth [place] mg tablet 00 :00 every 6 Medical (six) Branch hours as needed for Pain (scale 7-10) for up to 1 day. Indication s: acute pain HYDROcodone 2022-2022- No [id number] 1{tbl} Take 1 U nivers -acetaminop [...] as [place] 00 needed. Medical Branch methylPREDN 2023-0 Yes [id number] Take by [facility] ISolone 4 2-21 mouth ity of mg tablets 00:00: SEE-INSTRU [place] 00 CTIONS. Medical follow Branch package directions methylPREDN 3-0 Yes [id number] Take by [facility] ISolone 4 2-21 mouth ity of mg tablets 00:00: SEE-INSTRU [place] 00 CTIONS. Medical follow Branch package directions methylPREDN 3-0 Yes [id number] Take by [facility] ISolone 4 2-21 mouth ity of mg tablets 00:00: SEE-INSTRU [place] 00 CTIONS. Medical follow Branch package directions methylPREDN 3-0 Yes [id number] Take by [facility] ISolone 4 2-21 mouth ity of mg tablets 00:00: SEE-INSTRU [place] 00 CTIONS. Medical follow Branch package directions methylPREDN 3-0 Yes [id number] Take by [facility] ISolone 4 2-21 mouth ity of mg tablets 00:00: SEE-INSTRU [place] 00 CTIONS. Medical follow Branch package directions methylPREDN 3-0 Yes [id number] Take by [facility] ISolone 4 2-21 mouth ity of mg tablets 00:00: SEE-INSTRU [place] 00 CTIONS. Medical follow Branch package directions methylPREDN 3-0 2023- No [id number] Take by [facility] ISolone 4 2-21 -28 mouth ity of mg tablets 00:00: 00:00 SEE-INSTRU [place] 00 :00 CTIONS. Medical follow Branch package directions methylPREDN 2023-0 2023- No [id number] Take by [facility] ISolone 4 2-21 -28 mouth ity of mg tablets 00:00: 00:00 SEE-INSTRU [place] 00 :00 CTIONS. Medical follow Branch package directions miSOPROStoL 2023-0 Yes [id number] Take one [facility] 200 mcg 2-15 tablet ity of tablet 00:00: night [place] 00 before Medical procedure, Branch then take one tablet morning of procedure miSOPROStoL 202-0 Yes [id number] Take one [facility] 200 mcg 2-15 tablet ity of tablet 00:00: night [place] 00 before Medical procedure, Branch then take one tablet morning of procedure miSOPROStoL 2023-0 Yes [id number] Take one [facility] 200 mcg 2-15 tablet ity of tablet 00:00: night [place] 00 before Medical procedure, Branch then take one tablet morning of procedure miSOPROStoL 2023-0 Yes [id number] Take one [facility] 200 mcg 2-15 tablet ity of tablet 00:00: night [place] 00 before Medical procedure, Branch then take one tablet morning of procedure miSOPROStoL 202-0 Yes [id number] Take one [facility] 200 mcg 2-15 tablet ity of tablet 00:00: night [place] 00 before Medical procedure, Branch then take one tablet morning of procedure miSOPROStoL 2022-0 Yes [id number] Take one [facility] 200 mcg 2-15 tablet ity of tablet 00:00: night [place] 00 before Medical procedure, Branch then take one tablet morning of procedure miSOPROStoL 2022-0 Yes [id number] Take one [facility] 200 mcg 2-15 tablet ity of tablet 00:00: night [place] 00 before Medical procedure, Branch then take one tablet morning of procedure miSOPROStoL 3-0 Yes [id number] Take one [facility] 200 mcg 2-15 tablet ity of tablet 00:00: night [place] 00 before Medical procedure, Branch then take one tablet morning of procedure miSOPROStoL 2022-0 2023- No [id number] Take one [facility] 200 mcg 2-15 02-28 tablet ity of tablet 00:00: 00:00 night [place] 00 :00 before Medical procedure, Branch then take one tablet morning of procedure miSOPROStoL 3-0 2023- No [id number] Take one [facility] 200 mcg 2-15 02-28 tablet ity of tablet 00:00: 00:00 night [place] 00 :00 before Medical procedure, Branch then take one tablet morning of procedure metroNIDAZO 2023-0 Yes [id number] 500mg Take 1 [facility] LE 500 mg 1-31 tablet by ity o f tablet 00:00: mouth [place] 00 every 12 Medical (twelve) Branch hours. metroNIDAZO 2023-0 Yes [id number] 500mg Take 1 [facility] LE 500 mg 1-31 tablet by ity o f tablet 00:00: mouth [place] 00 every 12 Medical (twelve) Branch hours. metroNIDAZO 2023-0 Yes [id number] 500mg Take 1 [facility] LE 500 mg 1-31 tablet by ity o f tablet 00:00: mouth [place] 00 every 12 Medical (twelve) Branch hours. metroNIDAZO 2023-0 Yes [id number] 500mg Take 1 [facility] LE 500 mg 1-31 tablet by ity o f tablet 00:00: mouth [place] 00 every 12 Medical (twelve) Branch hours. metroNIDAZO 3-0 Yes [id number] 500mg Take 1 [facility] LE 500 mg 1-31 tablet by ity o f tablet 00:00: mouth [place] 00 every 12 Medical (twelve) Branch hours. metroNIDAZO 3-0 Yes [id number] 500mg Take 1 [facility] LE 500 mg 1-31 tablet by ity o f tablet 00:00: mouth [place] 00 every 12 Medical (twelve) Branch hours. metroNIDAZO 3-0 Yes [id number] 500mg Take 1 [facility] LE 500 mg 1-31 tablet by ity o f tablet 00:00: mouth [place] 00 every 12 Medical (twelve) Branch hours. metroNIDAZO 3-0 Yes [id number] 500mg Take 1 [facility] LE 500 mg 1-31 tablet by ity o f tablet 00:00: mouth [place] 00 every 12 Medical (twelve) Branch hours. metroNIDAZO 3-0 Yes [id number] 500mg Take 1 [facility] LE 500 mg 1-31 tablet by ity o f tablet 00:00: mouth [place] 00 every 12 Medical (twelve) Branch hours. metroNIDAZO 3-0 Yes [id number] 500mg Take 1 [facility] LE 500 mg 1-31 tablet by ity o f tablet 00:00: mouth [place] 00 every 12 Medical (twelve) Branch hours. metroNIDAZO 3-0 Yes [id number] 500mg Take 1 [facility] LE 500 mg 1-31 tablet by ity o f tablet 00:00: mouth [place] 00 every 12 Medical (twelve) Branch hours. metroNIDAZO 3-0 Yes [id number] 500mg Take 1 [facility] LE 500 mg 1-31 tablet by ity o f tablet 00:00: mouth [place] 00 every 12 Medical (twelve) Branch hours. metroNIDAZO 3-0 Yes [id number] 500mg Take 1 [facility] LE 500 mg 1-31 tablet by ity o f tablet 00:00: mouth [place] 00 every 12 Medical (twelve) Branch hours. metroNIDAZO 3-0 Yes [id number] 500mg Take 1 [facility] LE 500 mg 1-31 tablet by ity o f tablet 00:00: mouth [place] 00 every 12 Medical (twelve) Branch hours. metroNIDAZO 2023-0 Yes [id number] 500mg Take 1 [facility] LE 500 mg 1-31 tablet by ity o f tablet 00:00: mouth [place] 00 every 12 Medical (twelve) Branch hours. metroNIDAZO 0 Yes [id number] 500mg Take 1 [facility] LE 500 mg 1-31 tablet by ity o f tablet 00:00: mouth [place] 00 every 12 Medical (twelve) Branch hours. metroNIDAZO 0 Yes [id number] 500mg Take 1 [facility] LE 500 mg 1-31 tablet by ity o f tablet 00:00: mouth [place] 00 every 12 Medical (twelve) Branch hours. metroNIDAZO Yes [id number] 500mg Take 1 [facility] LE 500 mg 1-31 tablet by ity o f tablet 00:00: mouth [place] 00 every 12 Medical (twelve) Branch hours. metroNIDAZO 2022- No [id number] 500mg Take 1 [facility] 500 mg -- tablet by ity of tablet 00:00: 00:00 mouth [place] 00 :00 every 12 Medical (twelve) Branch hours. metroNIDAZO 2022- No [id number] 500mg Take 1 [facility] LE 500 mg -- tablet by ity of tablet 00:00: 00:00 mouth [place] 00 :00 every 12 Medical (twelve) Branch hours. fluconazole 2022- No [id number] 150mg Take 1 [facility] (DIFLUCAN) 11-01 tablet by ity of 150 mg 00:00: 05:[place] 00 :00 [place] for 1 Medical dose. Branch Meloxicam 2021-10 Yes Sakina 7.5 MG oral 2-18 Seybold Tablet 00:00: - 00 Externa l Dose 2021-10 No Unknown 2-18 00:00: 00 Dose 2021-10 No Unknown 2-18 00:00: 00 Dose 2021-10 No Unknown 2-18 00:00: 00 Dose 2021-10 No Unknown 2-16 00:00: 00 Dose 2021-10 No Unknown 2-16 00:00: 00 Dose 2021-10 No Unknown 2-16 00:00: 00 Dose 2021-10 No Unknown 2-16 00:00: 00 Dose 2021-10 No Unknown 2-16 00:00: 00 Dose No Unknown 2-16 00:00: 00 TAKE 1 2021- No TABLET [...] 2021- No TABLETS BY 2-15 MOUTH 00:00: TODAY, THEN 00 TAKE 1 TABLET DAILY FOR 4 DAYS Dose 2021-10 No Unknown 2-15 00:00: 00 Dose 2021-10 No Unknown 2-15 00:00: 00 Dose 2021-10 No Unknown 2-15 00:00: 00 TAKE 1 No TABLET BY 2-15 MOUTH EVERY 00:00: DAY 00 Dose 2021- No Unknown 2-15 00:00: 00 TAKE 1 2021-1 No TABLET BY 2-15 MOUTH THREE 00:00: TIMES A DAY 00 NEEDED FOR PAIN Dose 2021-1 No Unknown 2-15 00:00: 00 TAKE 10 ML 2021-1 No BY MOUTH 2-15 EVERY 4 00:00: HOURS 00 Dose 2021- No Unknown 2-15 00:00: 00 INHALE 1 2021-1 No PUFF 4 2-15 TIMES DAILY 00:00: (MAXIMUM OF 00 6 PUFFS IN 24 HOURS) TAKE 1 2021- No TABLET 2-15 DAILY. 00:00: 00 TAKE 1 2021-1 No TABLET 2-15 DAILY. 00:00: 00 TAKE 1 2021-1 No TABLET [...] 2021-1 No Unknown 2-15 00:00: 00 Dose 2021-1 No Unknown 2-15 00:00: 00 TAKE 1 [...] No Unknown 2-15 00:00: 00 INHALE 1 2021-1 No PUFF 4 2-15 TIMES DAILY 00:00: (MAXIMUM OF 00 6 PUFFS IN 24 HOURS) TAKE 1 2021-1 No TABLET 2-15 DAILY. 00:00: 00 TAKE 1 2021-1 No TABLET 2-15 DAILY. 00:00: 00 TAKE 1 2021-1 No TABLET BY 2-15 MOUTH EVERY 00:00: DAY 00 TAKE BY 2021-1 No MOUTH 2 2-15 TABLETS ON 00:00: DAY 1 TAB 00 DAILY FOR NEXT 4 DAYS Dose 2021-1 No Unknown 2-15 00:00: 00 TAKE 2 2021-1 No TABLETS BY 2-15 MOUTH 00:00: TODAY, THEN 00 TAKE 1 TABLET DAILY FOR 4 DAYS Dose 2021-1 No Unknown 2-15 00:00: 00 Dose 2021-1 [...] 2-15 EVERY 4 00:00: HOURS 00 Dose 2021-1 No Unknown 2-15 00:00: 00 Mobic 7.5 Mobic 7.5 2021-3- No 1{table QD Mobic 7.5 MG MG 2-15 -14 t} MG 00:00: 00:00 00 :00 Mobic 7.5 Mobic 7.5 2021-1 2023- No 1{table QD Mobic 7.5 MG MG 2-15 -14 t} MG 00:00: 00:00 00 :00 Mobic 7.5 Mobic 7.5 2021-1 3- No 1{table QD Mobic 7.5 MG MG 2-15 -14 t} MG 00:00: 00:00 00 :00 Dose 2021-0 No 500 Unknown 06-09 00:00: 00 TAKE 1 2021-0 No CAPSULE BY 9-08 MOUTH TWICE 00:00: A DAY 00 TAKE 1 2021-0 No TABLET BY 9-08 MOUTH TWICE 00:00: A DAY 00 TAKE 1 2021-0 No CAPSULE BY 9-08 MOUTH TWICE 00:00: A DAY 00 Dose 2021-0 No Unknown - 00:00: 00 TAKE 1 2021-0 No CAPSULE BY 9-08 MOUTH TWICE 00:00: A DAY 00 Dose 2021-0 No Unknown 06-09 00:00: 00 TAKE 1 [...] No Unknown 04-22 00:00: 00 TAKE 1 2022-0 No 325 [...] No Unknown 04-22 00:00: 00 TAKE 1 2022-0 No 325 TABLET BY 7-22 MOUTH EVERY 00:00: DAY 00 TAKE 1 2022-0 No 500 TABLET BY 7-22 MOUTH TWICE 00:00: A DAY 00 TAKE 1 2022-0 No 10 TABLET BY 7-22 MOUTH EVERY 00:00: DAY 00 hydroxyzine 2022-0 No 1mg HCl 25 mg 7-22 tablet 00:00: 00 Dose 2022-0 No Unknown 04-22 00:00: 00 TAKE 1 2022-0 No 325 [...] 10 mg 7-22 tablet 00:00: 00 hydroxyzine 2-0 No 1mg HCl 25 mg 7-22 tablet 00:00: 00 TAKE 1 2022-0 No 325 TABLET BY 7-22 MOUTH EVERY 00:00: DAY 00 TAKE 1 2022-0 No 500 TABLET BY 7-22 MOUTH TWICE 00:00: A DAY 00 TAKE 1 2-0 No 10 TABLET BY 7-22 MOUTH EVERY 00:00: DAY 00 escitalopra 2-0 No 1mg m 10 mg 7-22 tablet 00:00: 00 hydroxyzine 2-0 No 1mg HCl 25 mg 7-22 tablet 00:00: 00 TAKE 1 2-0 No 325 TABLET BY 7-22 MOUTH EVERY 00:00: DAY 00 TAKE 1 2-0 No 500 TABLET BY 7-22 MOUTH TWICE 00:00: A DAY 00 TAKE 1 2-0 No 10 TABLET BY 7-22 MOUTH EVERY 00:00: DAY 00 TAKE 1 2-0 No TABLET 6- SINGLE 00:00: DOSSE 00 Dose 2-0 No Unknown 03-23 00:00: 00 TAKE 2 2-0 No TABLETS BY 6- MOUTH 00:00: TAKE 1 TABLET DAILY FOR 4 DAYS TAKE 1 2-0 No TABLET - SINGLE 00:00: DOSSE 00 Dose 2-0 No Unknown 03-23 00:00: 00 TAKE 2 2-0 No TABLETS BY 6- MOUTH 00:00: TAKE 1 TABLET DAILY FOR 4 DAYS TAKE 1 2-0 No TABLET - SINGLE 00:00: DOSSE 00 Dose 2-0 No Unknown 03-23 00:00: 00 TAKE 2 2-0 No TABLETS BY 6- MOUTH 00:00: TAKE 1 TABLET DAILY FOR 4 DAYS TAKE 1 2-0 No TABLET - SINGLE 00:00: DOSSE 00 Dose 2-0 No Unknown 03-23 00:00: 00 TAKE 2 2-0 No TABLETS BY 6-22 MOUTH 00:00: TAKE 1 TABLET DAILY FOR 4 DAYS TAKE 1 2-0 No TABLET 6- SINGLE 00:00: DOSSE 00 Dose 2-0 No [...] TABLET DAILY FOR 4 DAYS TAKE 1 2021-0 No TABLET 03-23 SINGLE 00:00: DOSSE 00 Dose 2021-0 No Unknown 03-23 00:00: 00 TAKE 2 2-0 No TABLETS BY 03-23 MOUTH 00:00: TAKE 1 TABLET DAILY FOR 4 DAYS TAKE 1 2021-0 No TABLET 03-23 SINGLE 00:00: DOSSE 00 Dose 2021-0 No Unknown 03-23 00:00: 00 TAKE 2 2-0 No TABLETS BY 03-23 MOUTH 00:00: TAKE 1 TABLET DAILY FOR 4 DAYS TAKE 1 2021-0 No TABLET 03-23 SINGLE 00:00: DOSSE 00 Dose 2021-0 No Unknown 03-23 00:00: 00 TAKE 2 2-0 No TABLETS BY 03-23 MOUTH 00:00: TAKE 1 TABLET DAILY FOR 4 DAYS TAKE 1 2021-0 No TABLET 03-23 SINGLE 00:00: DOSSE 00 Dose 2021-0 No Unknown 03-23 00:00: 00 TAKE 2 2-0 No TABLETS BY 03-23 MOUTH 00:00: TAKE 1 TABLET DAILY FOR 4 DAYS metronidazo 2021-0 No 1mg le 500 mg - tablet 00:00: 00 Dose 2021-0 No Unknown 03-18 00:00: 00 SPRAY 2 2021-0 No SPRAYS INTO -17 EACH 00:00: NOSTRIL 00 EVERY DAY TAKE 1 2-0 No TABLET BY 6-17 MOUTH THREE 00:00: TIMES A DAY 00 NEEDED FOR PAIN TAKE 1 2021-0 No TABLET BY 6-17 MOUTH EVERY 00:00: DAY 00 Dose 2021-0 No Unknown 617 00:00: 00 TAKE 1 2-0 No TABLET [...] tablet 00:00: 00 Dose 2-0 No Unknown 617 00:00: 00 SPRAY 2 [...] DAY 00 NEEDED FOR PAIN TAKE 1 2022-0 No TABLET BY 6-17 MOUTH EVERY 00:00: [...] 00:00: DAY 00 Dose 2021-0 No Unknown 6-17 00:00: 00 TAKE 1 2021-0 No TABLET [...] 00:00: DAY 00 Dose 2021-0 No Unknown 17 00:00: 00 TAKE 1 2021-0 No TABLET BY 6-17 MOUTH TWICE 00:00: A DAY 00 TAKE 1 2021-0 No CAPSULE BY 6-17 MOUTH 3 00:00: TIMES A DAY 00 NEEDED FOR COUGH Claritin 10 2021-0 No 1mg mg tablet 3-11 00:00: 00 fluticasone 2021-0 No 2mcg/ac propionate 3-11 tuation 50 00:00: mcg/actuati 00 on nasal spray,suspe nsion Dose 2021-0 No Unknown 3-11 00:00: 00 fluticasone 2021-0 No 2mcg/ac propionate 3-11 tuation 50 00:00: mcg/actuati 00 on nasal spray,suspe nsion Dose 2021-0 No Unknown 3-11 00:00: 00 Dose 2021-0 No Unknown 3-11 00:00: 00 Dose 2021-0 No Unknown 3-11 00:00: 00 Dose 2021-0 No Unknown 3-11 00:00: 00 Dose 2021-0 No Unknown 3-11 00:00: 00 Dose 2021-0 No Unknown 3-11 00:00: 00 Claritin 10 2021-0 No 1mg mg tablet 3-11 00:00: 00 fluticasone 2021-0 No 2mcg/ac propionate 3-11 tuation 50 00:00: mcg/actuati 00 on nasal spray,suspe nsion Claritin 10 2021-0 No 1mg mg tablet 3-11 00:00: 00 fluticasone 2-0 No 2mcg/ac propionate [...] 150 mg 1-31 tablet 00:00: 00 metronidazo 2-0 No 1mg le 500 mg 1-31 tablet [...] 150 mg 1-18 tablet 00:00: 00 metronidazo 2-0 No 1mg le 500 mg 1-18 tablet 00:00: 00 amoxicillin 2020-1 No 1mg 875 mg 2-15 [...] 1mg 875 mg 2-15 tablet 00:00: [facility] No 10mg/5 2 mg-30 2-15 mL mg-10 mg/5 00:00: mL oral 00 syrup amoxicillin 2020-1 No 1mg 875 mg 2-15 tablet 00:00: [facility]1 No 10mg/5 2 mg-30 2-15 [...] 800 mg 2-11 tablet 00:00: 00 ibuprofen 2021-1 No 1mg 800 mg 2-11 tablet 00:00: [...] 00:00: 325 (65 00 Fe) mg Macrobid 1-0 No 1mg 100 mg 6-05 [...] mg 6-05 capsule 00:00: 00 Flagyl 500 1-0 No 1mg mg tablet - 00:00: 00 Diflucan 2021-0 No 1mg 150 mg 6-04 tablet 00:00: 00 Flagyl 500 1-0 No 1mg mg tablet 6- 00:00: 00 Diflucan 2021-0 No 1mg 150 mg 6-04 tablet 00:00: 00 Flagyl 500 2021-0 No 1mg mg tablet - 00:00: 00 Flagyl 500 2021-0 No 1mg mg tablet - 00:00: 00 Diflucan 2021-0 No 1mg 150 mg 6-04 tablet 00:00: 00 Diflucan 2021-0 No 1mg 150 mg 6-04 tablet 00:00: 00 Flagyl 500 2021-0 No 1mg mg tablet - 00:00: 00 Diflucan 2021-0 No 1mg 150 mg 6-04 tablet 00:00: 00 Flagyl 500 2021-0 No 1mg mg tablet - 00:00: 00 Diflucan 2021-0 No 1mg 150 mg 6-04 tablet 00:00: 00 Flagyl 500 2021-0 No 1mg mg tablet - 00:00: 00 Diflucan 2021-0 No 1mg 150 mg 6-04 tablet 00:00: 00 Flagyl 500 2021-0 No 1mg mg tablet - 00:00: 00 Diflucan 2021-0 No 1mg 150 mg 6-04 tablet 00:00: 00 Flagyl 500 2021-0 No 1mg mg tablet - 00:00: 00 Diflucan 2021-0 No 1mg 150 mg 6-04 tablet 00:00: 00 Flagyl 500 2021-0 No 1mg mg tablet - 00:00: 00 Diflucan 2021-0 No 1mg 150 mg 6-04 tablet 00:00: 00 Flagyl 500 2021-0 No 1mg mg tablet - 00:00: 00 Diflucan 2021-0 No 1mg 150 mg 6-04 tablet 00:00: 00 Singulair Singulair 2021-0 No 1{table QD Singulair 10 MG 10 MG 2-02 t} 10 MG 00:00: 00 Singulair Singulair 2021-0 No 1{table QD Singulair 10 MG 10 MG 2-02 t} 10 MG 00:00: 00 Singulair Singulair 2021-0 No 1{table QD Singulair 10 MG 10 MG 2-02 t} 10 MG 00:00: 00 Singulair Singulair 2021-0 No 1{table QD Singulair 10 MG 10 MG 2-02 t} 10 MG 00:00: 00 Singulair Singulair 2021-0 No 1{table QD Singulair 10 MG 10 MG 2-02 t} 10 MG 00:00: 00 Singulair Singulair 2020-0 No 1{table QD Singulair 10 MG 10 MG 2-02 t} 10 MG 00:00: 00 Kenalog Kenalog 2020-0 No 40mg Common (Triamcinol (Triamcinol 2-02 S pirit one) one) 00:00: - [facility] Singulair Singulair 2020-0 No 1{table QD Singulair 10 MG 10 MG 2-02 t} 10 MG 00:00: 00 Kenalog Kenalog 2020-0 No 40mg Common (Triamcinol (Triamcinol 2-02 S pirit one) one) 00:00: - [facility] 00 [facility] Singulair Singulair 2020-0 No 1{table QD Singulair 10 MG 10 MG 2-02 t} 10 MG 00:00: 00 Kenalog Kenalog 2020-0 No 40mg Common (Triamcinol (Triamcinol 2-02 S pirit one) one) 00:00: - [facility] 00 [facility] Singulair Singulair 2020-0 No 1{table QD Singulair 10 MG 10 MG 2-02 t} 10 MG 00:00: 00 Kenalog Kenalog 2020-0 No 40mg Common (Triamcinol (Triamcinol 2-02 S pirit one) one) 00:00: - [facility] 00 [facility] Singulair Singulair 2020-0 No 1{table QD Singulair 10 MG 10 MG 2-02 t} 10 MG 00:00: 00 Kenalog Kenalog 2020-0 No 40mg Common (Triamcinol (Triamcinol 2-02 S pirit one) one) 00:00: - [facility] 00 [facility] Singulair Singulair 2020-0 No 1{table QD Singulair 10 MG 10 MG 2-02 t} 10 MG 00:00: 00 Kenalog Kenalog 2020-0 No 40mg Common (Triamcinol (Triamcinol 2-02 S pirit one) one) 00:00: - [facility] 00 [facility] Acetaminoph Acetaminoph 2020- No 1{table BID Acetaminop en 500 MG en 500 MG 11-03- t_as_ne hen 500 MG 00:00: 00:00 eded} 00 :00 Acetaminoph Acetaminoph 2020- No 1{table BID Acetaminop en 500 MG en 500 MG 11-03- t_as_ne hen 500 MG 00:00: 00:00 eded} [...] For Finger 00:00: For Finger - - - Pulse Pulse 2019-10 No Pulse Oximeter [...] For Finger 00:00: For Finger - - - Pulse Pulse 2019-10 No Pulse Oximeter [...] 2{puffs 6xD Albuterol Sulfate HFA Sulfate HFA -22 _as_nee Sulfate 108 (90 108 (90 00:00: ded} HFA 108 Base) Base) 00 (90 Base) MCG/ACT MCG/ACT MCG/ACT Pulse Pulse 2019-10 No Pulse Oximeter Oximeter 11-23 Oximeter For Finger For Finger 00:00: For Finger - - 00 - Singulair Singulair 2019-10 No 1{table QD Singulair 10 MG 10 MG 11-23 t} 10 MG 00:00: 00 Albuterol Albuterol 2019-10 No 2{puffs 6xD Albuterol Sulfate HFA Sulfate HFA -22 _as_nee Sulfate 108 (90 108 (90 00:00: [...] Flagyl 500 2019-0 No 1mg mg tablet 9-25 00:00: 00 Flagyl 500 2019-0 No 1mg [...] 00 e device Dose 2019-0 No Unknown 7- 00:00: 00 Dose 2019-0 No Unknown 7- 00:00: 00 Dose 2019-0 No Unknown 7- [...] Solumedrol 2018-0 No 125mg Common 125mg/2ml 125mg/2ml 06-13 Spiri t 00:00: - [facility] 00 [facility] Solumedrol Solumedrol 2018-0 No 125mg Common 125mg/2ml 125mg/2ml 06-13 Spiri t 00:00: - [facility] 00 [facility] Solumedrol Solumedrol 2018-0 No 125mg Common 125mg/2ml 125mg/2ml 9-12 Spiri t 00:00: - [facility] 00 [facility] Solumedrol Solumedrol 2018-0 No 125mg Common 125mg/2ml 125mg/2ml 9-12 Spiri t 00:00: - [facility] 00 [facility] Solumedrol Solumedrol 2018-0 No 125mg Common 125mg/2ml 125mg/2ml 9-12 Spiri t 00:00: - [facility] 00 [facility] Solumedrol Solumedrol 2018-0 No 125mg Common 125mg/2ml 125mg/2ml 9-12 Spiri t 00:00: - [facility] 00 [facility] ProAir HFA ProAir HFA 2017-0 Yes Lorin 2 puffs as Common 7-17 Printer needed for Spirit 00:00: sob/wheezi - [facility] 00 ng [facility] ProAir HFA ProAir HFA No ProAir HFA 108 (90 108 (90 7-17 108 (90 Base) Base) 00:00: Base) MCG/ACT MCG/ACT 00 MCG/ACT ProAir HFA ProAir HFA 0 No ProAir HFA 108 (90 108 (90 [...] MCG/ACT 00 MCG/ACT ProAir HFA ProAir HFA 0 No ProAir HFA 108 (90 108 (90 7-17 108 (90 Base) Base) 00:00: Base) MCG/ACT MCG/ACT 00 MCG/ACT ProAir HFA ProAir HFA 2017-0 No ProAir HFA 108 (90 108 (90 7-17 108 (90 Base) Base) 00:00: Base) MCG/ACT MCG/ACT 00 MCG/ACT ProAir HFA ProAir HFA 0 No ProAir HFA 108 (90 108 (90 7-17 108 (90 Base) Base) 00:00: Base) MCG/ACT MCG/ACT 00 MCG/ACT ProAir HFA ProAir HFA 0 No ProAir HFA 108 (90 108 (90 7-17 108 (90 Base) Base) 00:00: Base) MCG/ACT MCG/ACT 00 MCG/ACT ProAir HFA ProAir HFA 0 No ProAir HFA 108 (90 108 (90 7-17 108 (90 Base) Base) 00:00: Base) MCG/ACT MCG/ACT 00 MCG/ACT ProAir HFA ProAir HFA 0 No ProAir HFA 108 (90 108 (90 7-17 108 (90 Base) Base) 00:00: Base) MCG/ACT MCG/ACT 00 MCG/ACT ProAir HFA ProAir HFA 0 No ProAir HFA 108 (90 108 (90 7-17 108 (90 Base) Base) 00:00: Base) MCG/ACT MCG/ACT 00 MCG/ACT ProAir HFA ProAir HFA 2017-0 No ProAir HFA Common 108 (90 108 (90 7-17 108 (90 Spirit Base) Base) 00:00: Base) - [facility] MCG/ACT MCG/ACT 00 MCG/ACT [facility] ProAir HFA ProAir HFA 0 No ProAir HFA 108 (90 108 (90 7-17 108 (90 Base) Base) 00:00: Base) MCG/ACT MCG/ACT 00 MCG/ACT ProAir HFA ProAir HFA 0 No ProAir HFA 108 (90 108 (90 7-17 108 (90 Base) Base) 00:00: Base) MCG/ACT MCG/ACT 00 MCG/ACT Solumedrol Solumedrol 0 No 125mg Common 125mg/2ml 125mg/2ml 6-22 Spiri t 00:00: - [facility] 00 [facility] Solumedrol Solumedrol 2018-0 No 125mg Common 125mg/2ml 125mg/2ml 03-23 Spiri t 00:00: - [facility] 00 [facility] Solumedrol Solumedrol 2018-0 No 125mg Common 125mg/2ml 125mg/2ml 03-23 Spiri t 00:00: - [facility] 00 [facility] Solumedrol Solumedrol 2018-0 No 125mg Common 125mg/2ml 125mg/2ml 03-23 Spiri t 00:00: - [facility] 00 [facility] Solumedrol Solumedrol 2018-0 No 125mg Common 125mg/2ml 125mg/2ml 03-23 Spiri t 00:00: - [facility] 00 [facility] Solumedrol Solumedrol 2018-0 No 125mg Common 125mg/2ml 125mg/2ml 03-23 Spiri t 00:00: - [facility] 00 [facility] metronidazo 2018-0 No 1mg le 500 [...] pirit one) one) 00:00: - [facility] 00 [facility] Kenalog Kenalog 2018-0 No 40mg Common (Triamcinol (Triamcinol 3-06 S pirit one) one) 00:00: - [facility] 00 [facility] Kenalog Kenalog 2018-0 No 40mg Common (Triamcinol (Triamcinol 3-06 S pirit one) one) 00:00: - [facility] 00 [facility] Kenalog Kenalog 2018-0 No 40mg Common (Triamcinol (Triamcinol 3-06 S pirit one) one) 00:00: - [facility] 00 [facility] Kenalog Kenalog 2018-0 No 40mg Common (Triamcinol (Triamcinol 3-06 S pirit one) one) 00:00: - [facility] 00 [facility] Kenalog Kenalog 2018-0 No 40mg Common (Triamcinol (Triamcinol 3-06 S pirit one) one) 00:00: - [facility] 00 [facility] fluticasone 2018-0 No 2mcg/ac 50 1-03 [...] 100 1-03 mg capsule 00:00: 00 norethindro 2017-1 Yes 1{tbl} Take 1 Un renate ne 0.35 mg 2-01 tablet by yael mccarthy tablet 00:00: mouth [place] 00 daily. [facility] 2016-10 Yes 1{tbl} Take 1 Un renate ne 0.35 mg 2-01 tablet by ity of tablet 00:00: mouth [place] 00 daily. [facility] 2016-10 Yes 1{tbl} Take 1 Un renate ne 0.35 mg 2-01 tablet by ity of tablet 00:00: mouth [place] 00 daily. [facility] 2016-10 Yes 1{tbl} Take 1 Un renate ne 0.35 mg 2-01 tablet by ity of tablet 00:00: mouth [place] 00 daily. [facility] 2016-10 Yes 1{tbl} Take 1 Un renate ne 0.35 mg 2-01 tablet by ity of tablet 00:00: mouth [place] 00 daily. [facility] 2016-10 Yes 1{tbl} Take 1 Un renate ne 0.35 mg 2-01 tablet by ity of tablet 00:00: mouth [place] 00 daily. [facility] 2016-10 Yes 1{tbl} Take 1 Un renate ne 0.35 mg 2-01 tablet by ity of tablet 00:00: mouth [place] 00 daily. [facility] 2016-10 Yes 1{tbl} Take 1 Un renate ne 0.35 mg 2-01 tablet by ity of tablet 00:00: mouth [place] 00 daily. [facility] 2016-10 Yes 1{tbl} Take 1 Un renate ne 0.35 mg 2-01 tablet by ity of tablet 00:00: mouth [place] 00 daily. [facility] 2016-10 Yes 1{tbl} Take 1 Un renate ne 0.35 mg 2-01 tablet by ity of tablet 00:00: mouth [place] 00 daily. [facility] 2016-10 Yes 1{tbl} Take 1 Un renate ne 0.35 mg 2-01 tablet by ity of tablet 00:00: mouth [place] 00 daily. [facility] 2016-10 Yes 1{tbl} Take 1 Un renate ne 0.35 mg 2-01 tablet by ity of tablet 00:00: mouth [place] 00 daily. [facility] 2016-10 Yes 1{tbl} Take 1 Un renate ne 0.35 mg 2-01 tablet by ity of tablet 00:00: mouth [place] 00 daily. [facility] 2016-10 Yes 1{tbl} Take 1 Un renate ne 0.35 mg 2-01 tablet by ity of tablet 00:00: mouth [place] 00 daily. [facility] 2016-10 Yes 1{tbl} Take 1 Un renate ne 0.35 mg 2-01 tablet by ity of tablet 00:00: mouth [place] 00 daily. [facility] 2016-10 Yes 1{tbl} Take 1 Un renate ne 0.35 mg 2-01 tablet by ity of tablet 00:00: mouth [place] 00 daily. [facility] 2016-10 Yes 1{tbl} Take 1 Un renate ne 0.35 mg 2-01 tablet by ity of tablet 00:00: mouth [place] 00 daily. [facility] 2016-10 Yes 1{tbl} Take 1 Un renate ne 0.35 mg 2-01 tablet by ity of tablet 00:00: mouth [place] 00 daily. [facility] 2016-10 Yes 1{tbl} Take 1 Un renate ne 0.35 mg 2-01 tablet by ity of tablet 00:00: mouth [place] 00 daily. [facility] 2016-10 Yes 1{tbl} Take 1 Un renate ne 0.35 mg 2-01 tablet by ity of tablet 00:00: mouth [place] 00 daily. [facility] 2016-10 Yes 1{tbl} Take 1 Un renate ne 0.35 mg 2-01 tablet by ity of tablet 00:00: mouth [place] [facility]. [facility]} Take 1 Un renate ne 0.35 mg 2-01 tablet by ity of tablet 00:00: mouth [place] 00 [facility]. [facility] Yes 1{tbl} Take 1 Un renate ne 0.35 mg 2-01 tablet by ity of tablet 00:00: mouth [place] 00 daily. [facility] Yes 1{tbl} Take 1 Un renate ne 0.35 mg 2-01 tablet by ity of tablet 00:00: mouth [place] 00 daily. [facility] norethindro 2016-10 Yes 1{tbl} Take 1 Un renate ne 0.35 mg 2-01 tablet by ity of tablet 00:00: mouth [place] 00 daily. [facility] 2016-10 Yes 1{tbl} Take 1 Un renate ne 0.35 mg 2-01 tablet by ity of tablet 00:00: mouth [place] 00 daily. [facility] 2016-10 Yes 1{tbl} Take 1 Un renate ne 0.35 mg 2-01 tablet by ity of tablet 00:00: mouth [place] 00 daily. [facility] 2016-10 Yes 1{tbl} Take 1 Un renate ne 0.35 mg 2-01 tablet by ity of tablet 00:00: mouth [place] 00 daily. [facility] 2016-10 Yes 1{tbl} Take 1 Un renate ne 0.35 mg 2-01 tablet by ity of tablet 00:00: mouth [place] 00 daily. [facility] 2016-10 Yes 1{tbl} Take 1 Un renate ne 0.35 mg 2-01 tablet by ity of tablet 00:00: mouth [place] 00 daily. [facility] 2016-10 Yes 1{tbl} Take 1 Un renate ne 0.35 mg 2-01 tablet by ity of tablet 00:00: mouth [place] 00 daily. [facility] 2016-10 Yes 1{tbl} Take 1 Un renate ne 0.35 mg 2-01 tablet by ity of tablet 00:00: mouth [place] 00 daily. [facility] 2016-10 Yes 1{tbl} Take 1 Un renate ne 0.35 mg 2-01 tablet by ity of tablet 00:00: mouth [place] 00 daily. [facility] 2016-10 Yes 1{tbl} Take 1 Un renate ne 0.35 mg 2-01 tablet by ity of tablet 00:00: mouth [place] 00 daily. [facility] 2016-10 Yes 1{tbl} Take 1 Un renate ne 0.35 mg 2-01 tablet by ity of tablet 00:00: mouth [place] 00 daily. [facility] 2016-10 Yes 1{tbl} Take 1 Un renate ne 0.35 mg 2-01 tablet by ity of tablet 00:00: mouth [place] 00 daily. [facility] 2016- Yes 1{tbl} Take 1 Un renate ne 0.35 mg 2-01 tablet by ity of tablet 00:00: mouth [place] 00 daily. [facility] 2016-10 Yes 1{tbl} Take 1 Un renate ne 0.35 mg 2-01 tablet by ity of tablet 00:00: mouth [place] 00 daily. [facility] 2016-10 Yes 1{tbl} Take 1 Un renate ne 0.35 mg 2-01 tablet by ity of tablet 00:00: mouth [place] 00 daily. [facility] 2016-10 Yes 1{tbl} Take 1 Un renate ne 0.35 mg 2-01 tablet by ity of tablet 00:00: mouth [place] 00 daily. [facility] 2016-10 Yes 1{tbl} Take 1 Un renate ne 0.35 mg 2-01 tablet by ity of tablet 00:00: mouth [place] 00 daily. [facility] 2016-10 Yes 1{tbl} Take 1 Un renate ne 0.35 mg 2-01 tablet by ity of tablet 00:00: mouth [place] 00 daily. [facility] 2016-10 Yes 1{tbl} Take 1 Un renate ne 0.35 mg 2-01 tablet by ity of tablet 00:00: mouth [place] 00 daily. [facility] 2016-10 Yes 1{tbl} Take 1 Un renate ne 0.35 mg 2-01 tablet by ity of tablet 00:00: mouth [place] 00 daily. [facility] 2016-10 Yes 1{tbl} Take 1 Un renate ne 0.35 mg 2-01 tablet by ity of tablet 00:00: mouth [place] 00 daily. [facility] 2016-10 Yes 1{tbl} Take 1 Un renate ne 0.35 mg 2-01 tablet by ity of tablet 00:00: mouth [place] 00 daily. [facility] 2016-10 Yes 1{tbl} Take 1 Un renate ne 0.35 mg 2-01 tablet by ity of tablet 00:00: mouth [place] 00 daily. [facility] 2016-10 Yes 1{tbl} Take 1 Un renate ne 0.35 mg 2-01 tablet by ity of tablet 00:00: mouth [place] 00 daily. [facility] 2016-10 Yes 1{tbl} Take 1 Un renate ne 0.35 mg 2-01 tablet by ity of tablet 00:00: mouth [place] 00 daily. [facility] 2016-10 Yes 1{tbl} Take 1 Un renate ne 0.35 mg 2-01 tablet by ity of tablet 00:00: mouth [place] 00 daily. [facility] 2016-10 Yes 1{tbl} Take 1 Un renate ne 0.35 mg 2-01 tablet by ity of tablet 00:00: mouth [place] 00 daily. [facility] 2016-10 Yes 1{tbl} Take 1 Un renate ne 0.35 mg 2-01 tablet by ity of tablet 00:00: mouth [place] 00 daily. [facility] 2016-10 Yes 1{tbl} Take 1 Un renate ne 0.35 mg 2-01 tablet by ity of tablet 00:00: mouth [place] 00 daily. [facility] 2016-10 Yes 1{tbl} Take 1 Un renate ne 0.35 mg 2-01 tablet by ity of tablet 00:00: mouth [place] 00 daily. [facility] 2016-10 Yes 1{tbl} Take 1 Un renate ne 0.35 mg 2-01 tablet by ity of tablet 00:00: mouth [place] 00 daily. [facility] 2016-10 Yes 1{tbl} Take 1 Un renate ne 0.35 mg 2-01 tablet by ity of tablet 00:00: mouth [place] 00 daily. [facility] 2016-10 Yes 1{tbl} Take 1 Un renate ne 0.35 mg 2-01 tablet by [facility]y of tablet 00:00: mouth [place] 00 daily. [facility] 2016-10- No 1{tbl} Take 1 U nivers ne 0.35 mg 2-01 03-28 tablet by [facility]y of tablet 00:00: 00:00 mouth [place] 00 :00 daily. [facility] 2016-10- No 1{tbl} Take 1 U nivers ne 0.35 mg -12-27 tablet by ity of tablet 00:00: 00:00 mouth [place] 00 :00 daily. [facility] 2016-10- No 1{tbl} Take 1 U nivers ne 0.35 mg 11-02 tablet by ity of tablet 00:00: 00:00 mouth [place] 00 :00 daily. [facility] 2016-10- No 1{tbl} Take 1 U nivers ne 0.35 mg 11-02 tablet by ity of tablet 00:00: 00:00 mouth [place] 00 :00 daily. [facility] 2016-10- No 1{tbl} Take 1 U nivers ne 0.35 mg 2-12-27 tablet by ity of tablet 00:00: 00:00 mouth [place] 00 :00 daily. [facility] 2016-10- No 1{tbl} Take 1 U nivers ne 0.35 mg 11-02 tablet by ity of tablet 00:00: 00:00 mouth [place] 00 :00 daily. [facility] cyclobenzap 2016-10 Yes 5mg [...] pentazocine 2016-10 Yes 1{tbl} Take 1 Un rentae -naloxone 1-05 tablet by ity o f [...] pentazocine 2016-10 Yes 1{tbl} Take 1 Un rentae -naloxone 1-05 tablet by ity o f [...] :00 (three) Medical times Branch daily. cyclobenzap 2016-0 Yes TAKE 1 Univ ers rine 10 [...] HOURS Branch NEEDED FOR MUSCLE SPASMS. cyclobenzap 3- No TAKE 1 Uni vers rine 10 mg 05-29 TABLET BY ity of tablet 00:00: 00:00 [...] VC-CODEINE) Cough. 6.25-5-10 mg/5 mL syrup phenylephri 2022- No 5mL Take 5 mL Univers ne-prometha 6-15 11-29 by mouth 4 i ty of zine-codein 00:00: 00:00 (four) Migule as e 00 :00 times Medical (PROMETHAZI daily as Bran ch NE needed for VC-CODEINE) Cough. 6.25-5-10 mg/5 mL syrup benzonatate 2014-0 Yes 100mg Take 1 Cap Univers (TESSALON 9-12 by mouth 3 ity of PERLES) 100 00:00: (three) Miguel as mg capsule 00 times Medical daily as Branch needed for Cough. benzonatate 2014-0 Yes 100mg Take 1 Cap Univers (TESSALON 9-12 by mouth 3 ity of PERLES) 100 00:00: (three) [place] as mg capsule 00 times Medical daily as Branch needed for Cough. benzonatate 2014-0 Yes 100mg Take 1 Cap Univers (TESSALON [...] daily as Branch needed for Cough. benzonatate 2014-0 Yes 100mg Take 1 Cap Univers (TESSALON 9-12 by mouth 3 ity of PERLES) 100 00:00: (three) Miguel as mg capsule 00 times Medical daily as Branch needed for Cough. benzonatate 2014-0 Yes 100mg Take 1 Cap Univers (TESSALON 9-12 by mouth 3 ity of PERLES) 100 00:00: (three) [place] as mg capsule 00 times Medical daily as Branch needed for Cough. benzonatate 2014-0 Yes 100mg Take 1 Cap Univers (TESSALON 9-12 by mouth 3 ity of PERLES) 100 00:00: (three) [place] as mg capsule 00 times Medical daily as Branch needed for Cough. benzonatate 2014-0 Yes 100mg Take 1 Cap Univers (TESSALON 9-12 by mouth 3 ity of PERLES) 100 00:00: (three) [place] as mg capsule 00 times Medical daily as Branch needed for Cough. benzonatate 2014-0 2022- No 100mg Take 1 Cap Univers (TESSALON 9-12 02-28 by mouth 3 ity of PERLES) 100 00:00: 00:00 (three[place] capsule 00 :00 times Medical daily as Branch needed for Cough. benzonatate 2014-0 2022- No 100mg Take 1 Cap Univers (TESSALON 9-12 02-28 by mouth 3 ity of PERLES) 100 00:00: 00:00 (three[place] capsule 00 :00 times Medical daily as Branch needed for Cough. Norethindro Norethindro Yes Lorin not Common ne ne Printer defined [facility] IUD's IUD's Yes [place] Paragard Common Printer IUD [facility] Flonase Flonase Yes Lorin not Common Printer defined [facility] ZyrTEC ZyrTEC Yes [place] not Common Printer defined [facility] Vitamin B12 Vitamin B12 Yes Lorin (OTC) 1 Common Printer tablet [facility] Azithromyci Azithromyci No Azithromyc n [...] Norethindro No Norethindr Common ne ne one [facility] Ferrous Ferrous No Ferrous Sulfate 325 Sulfate 325 Sulfate (65 Fe) MG (65 Fe) MG 325 (65 Fe) MG ZyrTEC ZyrTEC No ZyrTEC Vitamin B12 Vitamin B12 No Vitamin mg mg B12 mg Famotidine Famotidine No Famotidine 20 MG 20 MG 20 MG Norethindro Norethindro No Norethindr ne ne one Flonase Flonase No Flonase IUD's IUD's No IUD's IUD's IUD's No IUD's Common [facility] Benadryl Benadryl No Benadryl Allergy 25 Allergy 25 Allergy 25 MG MG MG Azithromyci Azithromyci No Azithromyc n 500 MG n 500 MG in 500 MG Vitamin B12 Vitamin B12 No Vitamin Common mg mg B12 mg [facility] Montelukast Montelukast No Montelukas Sodium 10 Sodium 10 t Sodium MG MG 10 MG Tylenol Tylenol No Tylenol Cetirizine Cetirizine No Cetirizine HCl 10 MG HCl 10 MG HCl 10 MG methylPREDN methylPREDN No methylPRED ISolone 4 ISolone 4 NISolone 4 MG MG MG Meloxicam Meloxicam No Meloxicam 7.5 MG 7.5 MG 7.5 MG ZyrTEC ZyrTEC No ZyrTEC [facility] Ferrous Ferrous No Ferrous Sulfate [...] 500 MG Flonase Flonase No Flonase Common [facility] Vitamin D Vitamin D No 1{capsu QD Vitamin D Common 50 MCG 50 MCG le} 50 MCG Spirit (1999) (1999) (1999) - [facility] Norethindro Norethindro No Norethindr ne ne one [...] Name Influenza, 2022-06-21 Completed injectable, Madin 00:00:00 [place] Canine Kidney, preservative-free, quadrivalent Influenza, 2022-06-21 Completed injectable, Madin 00:00:00 [place] Canine Kidney, preservative-free, quadrivalent Influenza, 2022-06-21 Completed injectable, Madin 00:00:00 [place] Canine Kidney, preservative-free, quadrivalent Influenza, 2022-06-21 Completed injectable, Madin 00:00:00 [place] Canine Kidney, preservative-free, quadrivalent Influenza, 2022-06-21 Completed injectable, Madin 00:00:00 [place] Canine Kidney, preservative-free, quadrivalent Influenza, 2022-06-21 Completed injectable, Madin 00:00:00 [place] Canine Kidney, preservative-free, quadrivalent Influenza, 2022-06-21 Completed injectable, Madin 00:00:00 [place] Canine Kidney, preservative-free, quadrivalent SARS-COV-2 COVID-19 2021-01-09 Completed Unive rsity of PFIZER VACCINE 00:00:00 [facility] SARS-COV-2 COVID-19 2021-01-09 Completed Unive rsity of PFIZER VACCINE 00:00:00 [facility] SARS-COV-2 COVID-19 2021-01-09 Completed Unive rsity of PFIZER VACCINE 00:00:00 [facility] SARS-COV-2 COVID-19 2021-01-09 Completed Unive rsity of PFIZER VACCINE 00:00:00 [facility] SARS-COV-2 COVID-19 2021-01-09 Completed Unive rsity of PFIZER VACCINE 00:00:00 [facility] SARS-COV-2 COVID-19 2021-01-09 Completed Unive rsity of PFIZER VACCINE 00:00:00 [facility] SARS-COV-2 COVID-19 2021-01-09 Completed Unive rsity of PFIZER VACCINE 00:00:00 [facility] SARS-COV-2 COVID-19 2021-01-09 Completed Unive rsity of PFIZER VACCINE 00:00:00 [facility] SARS-COV-2 COVID-19 2021-01-09 Completed Unive rsity of PFIZER VACCINE 00:00:00 [facility] SARS-COV-2 COVID-19 2021-01-09 Completed Unive rsity of PFIZER VACCINE 00:00:00 [facility] SARS-COV-2 COVID-19 2021-01-09 Completed Unive rsity of PFIZER VACCINE 00:00:00 [facility] SARS-COV-2 COVID-19 2021-01-09 Completed Unive rsity of PFIZER VACCINE 00:00:00 [facility] SARS-COV-2 COVID-19 2021-01-09 Completed Unive rsity of PFIZER VACCINE 00:00:00 [facility] SARS-COV-2 COVID-19 2021-01-09 Completed Unive rsity of PFIZER VACCINE 00:00:00 [facility] SARS-COV-2 COVID-19 2021-01-09 Completed Unive rsity of PFIZER VACCINE 00:00:00 [facility] SARS-COV-2 COVID-19 2021-01-09 Completed Unive rsity of PFIZER VACCINE 00:00:00 [facility] SARS-COV-2 COVID-19 2021-01-09 Completed Unive rsity of PFIZER VACCINE 00:00:00 [facility] SARS-COV-2 COVID-19 2021-01-09 Completed Unive rsity of PFIZER VACCINE 00:00:00 [facility] SARS-COV-2 COVID-19 2021-01-09 Completed Unive rsity of PFIZER VACCINE 00:00:00 [facility] SARS-COV-2 COVID-19 2021-01-09 Completed Unive rsity of PFIZER VACCINE 00:00:00 [facility] SARS-COV-2 COVID-19 2021-01-09 Completed Unive rsity of PFIZER VACCINE 00:00:00 [facility] SARS-COV-2 COVID-19 2021-01-09 Completed Unive rsity of PFIZER VACCINE 00:00:00 [facility] SARS-COV-2 COVID-19 2021-01-09 Completed Unive rsity of PFIZER VACCINE 00:00:00 [facility] SARS-COV-2 COVID-19 2021-01-09 Completed Unive rsity of PFIZER VACCINE 00:00:00 [facility] SARS-COV-2 COVID-19 2021-01-09 Completed Unive rsity of PFIZER VACCINE 00:00:00 [facility] SARS-COV-2 COVID-19 2021-01-09 Completed Unive rsity of PFIZER VACCINE 00:00:00 [facility] SARS-COV-2 COVID-19 2021-01-09 Completed Unive rsity of PFIZER VACCINE 00:00:00 [facility] SARS-COV-2 COVID-19 2021-01-09 Completed Unive rsity of PFIZER VACCINE 00:00:00 [facility] SARS-COV-2 COVID-19 2021-01-09 Completed Unive rsity of PFIZER VACCINE 00:00:00 [facility] SARS-COV-2 COVID-19 2021-01-09 Completed Unive rsity of PFIZER VACCINE 00:00:00 [facility] SARS-COV-2 COVID-19 2021-01-09 Completed Unive rsity of PFIZER VACCINE 00:00:00 [facility] SARS-COV-2 COVID-19 2021-01-09 Completed Unive rsity of PFIZER VACCINE 00:00:00 [facility] SARS-COV-2 COVID-19 2021-01-09 Completed Unive rsity of PFIZER VACCINE 00:00:00 [facility] SARS-COV-2 COVID-19 2021-01-09 Completed Unive rsity of PFIZER VACCINE 00:00:00 [facility] SARS-COV-2 COVID-19 2021-01-09 Completed Unive rsity of PFIZER VACCINE 00:00:00 [place] [facility] SARS-COV-2 COVID-19 2021-01-09 Completed Unive rsity of PFIZER VACCINE 00:00:00 [facility] SARS-COV-2 COVID-19 2021-01-09 Completed Unive rsity of PFIZER VACCINE 00:00:00 [place] [facility] Branch SARS-COV-2 COVID-19 2021-01-09 Completed Unive rsity of PFIZER VACCINE 00:00:00 [facility] SARS-COV-2 COVID-19 2021-01-09 Completed Unive rsity of PFIZER VACCINE 00:00:00 [facility] SARS-COV-2 COVID-19 2021-01-09 Completed Unive rsity of PFIZER VACCINE 00:00:00 [facility] SARS-COV-2 COVID-19 2021-01-09 Completed Unive rsity of PFIZER VACCINE 00:00:00 [facility] SARS-COV-2 COVID-19 2021-01-09 Completed Unive rsity of PFIZER VACCINE 00:00:00 [facility] SARS-COV-2 COVID-19 2021-01-09 Completed Unive rsity of PFIZER VACCINE 00:00:00 [facility] SARS-COV-2 COVID-19 2021-01-09 Completed Unive rsity of PFIZER VACCINE 00:00:00 [facility] SARS-COV-2 COVID-19 2021-01-09 Completed Unive rsity of PFIZER VACCINE 00:00:00 [facility] SARS-COV-2 COVID-19 2021-01-09 Completed Unive rsity of PFIZER VACCINE 00:00:00 [facility] SARS-COV-2 COVID-19 2021-01-09 Completed Unive rsity of PFIZER VACCINE 00:00:00 [facility] SARS-COV-2 COVID-19 2021-01-09 Completed Unive rsity of PFIZER VACCINE 00:00:00 [facility] SARS-COV-2 COVID-19 2021-01-09 Completed Unive rsity of PFIZER VACCINE 00:00:00 [facility] SARS-COV-2 COVID-19 2021-01-09 Completed Unive rsity of PFIZER VACCINE 00:00:00 [facility] SARS-COV-2 COVID-19 2021-01-09 Completed Unive rsity of PFIZER VACCINE 00:00:00 [facility] SARS-COV-2 COVID-19 2021-01-09 Completed Unive rsity of PFIZER VACCINE 00:00:00 [facility] SARS-COV-2 COVID-19 2021-01-09 Completed Unive rsity of PFIZER VACCINE 00:00:00 [facility] SARS-COV-2 COVID-19 2021-01-09 Completed Unive rsity of PFIZER VACCINE 00:00:00 [facility] SARS-COV-2 COVID-19 2021-01-09 Completed Unive rsity of PFIZER VACCINE 00:00:00 [facility] SARS-COV-2 COVID-19 2021-01-09 Completed Unive rsity of PFIZER VACCINE 00:00:00 [facility] SARS-COV-2 COVID-19 2021-01-09 Completed Unive rsity of PFIZER VACCINE 00:00:00 [facility] SARS-COV-2 COVID-19 2021-01-09 Completed Unive rsity of PFIZER VACCINE 00:00:00 [facility] SARS-COV-2 COVID-19 2021-01-09 Completed Unive rsity of PFIZER VACCINE 00:00:00 [facility] SARS-COV-2 COVID-19 2021-01-09 Completed Unive rsity of PFIZER VACCINE 00:00:00 [facility] SARS-COV-2 COVID-19 2021-01-09 Completed Unive rsity of PFIZER VACCINE 00:00:00 [facility] SARS-COV-2 COVID-19 2021-01-09 Completed Unive rsity of PFIZER VACCINE 00:00:00 [facility] SARS-COV-2 COVID-19 2021-01-09 Completed Unive rsity of PFIZER VACCINE 00:00:00 [facility] SARS-COV-2 COVID-19 2021-01-09 Completed Unive rsity of PFIZER VACCINE 00:00:00 [facility] SARS-COV-2 COVID-19 2021-01-09 Completed Unive rsity of PFIZER VACCINE 00:00:00 [facility] SARS-COV-2 COVID-19 2021-01-09 Completed Unive rsity of PFIZER VACCINE 00:00:00 [facility] SARS-COV-2 COVID-19 2021-01-09 Completed Unive rsity of PFIZER VACCINE 00:00:00 [facility] SARS-COV-2 COVID-19 2021-01-09 Completed Unive rsity of PFIZER VACCINE 00:00:00 [facility] SARS-COV-2 COVID-19 2021-01-09 Completed Unive rsity of PFIZER VACCINE 00:00:00 [facility] SARS-COV-2 COVID-19 2021-01-09 Completed Unive rsity of PFIZER VACCINE 00:00:00 [facility] SARS-COV-2 COVID-19 2021-01-09 Completed Unive rsity of PFIZER VACCINE 00:00:00 [facility] SARS-COV-2 COVID-19 2021-01-09 Completed Unive rsity of PFIZER VACCINE 00:00:00 [facility] SARS-COV-2 COVID-19 2021-01-09 Completed Unive rsity of PFIZER VACCINE 00:00:00 [facility] SARS-COV-2 COVID-19 2021-01-09 Completed Unive rsity of PFIZER VACCINE 00:00:00 [facility] SARS-COV-2 COVID-19 2021-01-09 Completed Unive rsity of PFIZER VACCINE 00:00:00 [facility] SARS-COV-2 COVID-19 2021-01-09 Completed Unive rsity of PFIZER VACCINE 00:00:00 [facility] SARS-COV-2 COVID-19 2021-01-09 Completed Unive rsity of PFIZER VACCINE 00:00:00 [facility] SARS-COV-2 COVID-19 2021-01-09 Completed Unive rsity of PFIZER VACCINE 00:00:00 [facility] SARS-COV-2 COVID-19 2021-01-09 Completed Unive rsity of PFIZER VACCINE 00:00:00 [facility] SARS-COV-2 COVID-19 2021-01-09 Completed Unive rsity of PFIZER VACCINE 00:00:00 [facility] SARS-COV-2 COVID-19 2021-01-09 Completed Unive rsity of PFIZER VACCINE 00:00:00 [facility] SARS-COV-2 COVID-19 2021-01-09 Completed Unive rsity of PFIZER VACCINE 00:00:00 [place] [facility] SARS-COV-2 COVID-19 2021-01-09 Completed Unive rsity of PFIZER VACCINE 00:00:00 [facility] SARS-COV-2 COVID-19 2021-01-09 Completed Unive rsity of PFIZER VACCINE 00:00:00 [facility] SARS-COV-2 COVID-19 2021-01-09 Completed Unive rsity of PFIZER VACCINE 00:00:00 [facility] SARS-COV-2 COVID-19 2021-01-09 Completed Unive rsity of PFIZER VACCINE 00:00:00 [facility] SARS-COV-2 COVID-19 2021-01-09 Completed Unive rsity of PFIZER VACCINE 00:00:00 [facility] SARS-COV-2 COVID-19 2021-01-09 Completed Unive rsity of PFIZER VACCINE 00:00:00 [facility] SARS-COV-2 COVID-19 2021-01-09 Completed Unive rsity of PFIZER VACCINE 00:00:00 [facility] SARS-COV-2 COVID-19 2021-01-09 Completed Unive rsity of PFIZER VACCINE 00:00:00 [facility] SARS-COV-2 COVID-19 2021-01-09 Completed Unive rsity of PFIZER VACCINE 00:00:00 [facility] SARS-COV-2 COVID-19 2021-01-09 Completed Unive rsity of PFIZER VACCINE 00:00:00 [facility] SARS-COV-2 COVID-19 2021-01-09 Completed Unive rsity of PFIZER VACCINE 00:00:00 [facility] SARS-COV-2 COVID-19 2021-01-09 Completed Unive rsity of PFIZER VACCINE 00:00:00 [facility] SARS-COV-2 COVID-19 2021-01-09 Completed Unive rsity of PFIZER VACCINE 00:00:00 [facility] SARS-COV-2 COVID-19 2021-01-09 Completed Unive rsity of PFIZER VACCINE 00:00:00 [facility] SARS-COV-2 COVID-19 2021-01-09 Completed Unive rsity of PFIZER VACCINE 00:00:00 [facility] SARS-COV-2 COVID-19 2021-01-09 Completed Unive rsity of PFIZER VACCINE 00:00:00 [facility] SARS-COV-2 COVID-19 2021-01-09 Completed Unive rsity of PFIZER VACCINE 00:00:00 [facility] SARS-COV-2 COVID-19 2021-01-09 Completed Unive rsity of PFIZER VACCINE 00:00:00 [facility] SARS-COV-2 COVID-19 2020-12-19 Completed Unive rsity of PFIZER VACCINE 00:00:00 [facility] SARS-COV-2 COVID-19 2020-12-19 Completed Unive rsity of PFIZER VACCINE 00:00:00 [facility] SARS-COV-2 COVID-19 2020-12-19 Completed Unive rsity of PFIZER VACCINE 00:00:00 [facility] SARS-COV-2 COVID-19 2020-12-19 Completed Unive rsity of PFIZER VACCINE 00:00:00 [facility] SARS-COV-2 COVID-19 2020-12-19 Completed Unive rsity of PFIZER VACCINE 00:00:00 [facility] SARS-COV-2 COVID-19 2020-12-19 Completed Unive rsity of PFIZER VACCINE 00:00:00 [facility] SARS-COV-2 COVID-19 2020-12-19 Completed Unive rsity of PFIZER VACCINE 00:00:00 [facility] SARS-COV-2 COVID-19 2020-12-19 Completed Unive rsity of PFIZER VACCINE 00:00:00 [facility] SARS-COV-2 COVID-19 2020-12-19 Completed Unive rsity of PFIZER VACCINE 00:00:00 [facility] SARS-COV-2 COVID-19 2020-12-19 Completed Unive rsity of PFIZER VACCINE 00:00:00 [facility] SARS-COV-2 COVID-19 2020-12-19 Completed Unive rsity of PFIZER VACCINE 00:00:00 [facility] SARS-COV-2 COVID-19 2020-12-19 Completed Unive rsity of PFIZER VACCINE 00:00:00 [facility] SARS-COV-2 COVID-19 2020-12-19 Completed Unive rsity of PFIZER VACCINE 00:00:00 [place] [facility] SARS-COV-2 COVID-19 2020-12-19 Completed Unive rsity of PFIZER VACCINE 00:00:00 [facility] SARS-COV-2 COVID-19 2020-12-19 Completed Unive rsity of PFIZER VACCINE 00:00:00 [facility] SARS-COV-2 COVID-19 2020-12-19 Completed Unive rsity of PFIZER VACCINE 00:00:00 [facility] SARS-COV-2 COVID-19 2020-12-19 Completed Unive rsity of PFIZER VACCINE 00:00:00 [facility] SARS-COV-2 COVID-19 2020-12-19 Completed Unive rsity of PFIZER VACCINE 00:00:00 [facility] SARS-COV-2 COVID-19 2020-12-19 Completed Unive rsity of PFIZER VACCINE 00:00:00 [facility] SARS-COV-2 COVID-19 2020-12-19 Completed Unive rsity of PFIZER VACCINE 00:00:00 [facility] SARS-COV-2 COVID-19 2020-12-19 Completed Unive rsity of PFIZER VACCINE 00:00:00 [facility] SARS-COV-2 COVID-19 2020-12-19 Completed Unive rsity of PFIZER VACCINE 00:00:00 [facility] SARS-COV-2 COVID-19 2020-12-19 Completed Unive rsity of PFIZER VACCINE 00:00:00 [facility] SARS-COV-2 COVID-19 2020-12-19 Completed Unive rsity of PFIZER VACCINE 00:00:00 [facility] SARS-COV-2 COVID-19 2020-12-19 Completed Unive rsity of PFIZER VACCINE 00:00:00 [facility] SARS-COV-2 COVID-19 2020-12-19 Completed Unive rsity of PFIZER VACCINE 00:00:00 [facility] SARS-COV-2 COVID-19 2020-12-19 Completed Unive rsity of PFIZER VACCINE 00:00:00 [facility] SARS-COV-2 COVID-19 2020-12-19 Completed Unive rsity of PFIZER VACCINE 00:00:00 [facility] SARS-COV-2 COVID-19 2020-12-19 Completed Unive rsity of PFIZER VACCINE 00:00:00 [facility] SARS-COV-2 COVID-19 2020-12-19 Completed Unive rsity of PFIZER VACCINE 00:00:00 [facility] SARS-COV-2 COVID-19 2020-12-19 Completed Unive rsity of PFIZER VACCINE 00:00:00 [facility] SARS-COV-2 COVID-19 2020-12-19 Completed Unive rsity of PFIZER VACCINE 00:00:00 [facility] SARS-COV-2 COVID-19 2020-12-19 Completed Unive rsity of PFIZER VACCINE 00:00:00 [facility] SARS-COV-2 COVID-19 2020-12-19 Completed Unive rsity of PFIZER VACCINE 00:00:00 [facility] SARS-COV-2 COVID-19 2020-12-19 Completed Unive rsity of PFIZER VACCINE 00:00:00 [facility] SARS-COV-2 COVID-19 2020-12-19 Completed Unive rsity of PFIZER VACCINE 00:00:00 [facility] SARS-COV-2 COVID-19 2020-12-19 Completed Unive rsity of PFIZER VACCINE 00:00:00 [facility] SARS-COV-2 COVID-19 2020-12-19 Completed Unive rsity of PFIZER VACCINE 00:00:00 [facility] SARS-COV-2 COVID-19 2020-12-19 Completed Unive rsity of PFIZER VACCINE 00:00:00 [facility] SARS-COV-2 COVID-19 2020-12-19 Completed Unive rsity of PFIZER VACCINE 00:00:00 [facility] SARS-COV-2 COVID-19 2020-12-19 Completed Unive rsity of PFIZER VACCINE 00:00:00 [facility] SARS-COV-2 COVID-19 2020-12-19 Completed Unive rsity of PFIZER VACCINE 00:00:00 [facility] SARS-COV-2 COVID-19 2020-12-19 Completed Unive rsity of PFIZER VACCINE 00:00:00 [facility] SARS-COV-2 COVID-19 2020-12-19 Completed Unive rsity of PFIZER VACCINE 00:00:00 [facility] SARS-COV-2 COVID-19 2020-12-19 Completed Unive rsity of PFIZER VACCINE 00:00:00 [facility] SARS-COV-2 COVID-19 2020-12-19 Completed Unive rsity of PFIZER VACCINE 00:00:00 [facility] SARS-COV-2 COVID-19 2020-12-19 Completed Unive rsity of PFIZER VACCINE 00:00:00 [facility] SARS-COV-2 COVID-19 2020-12-19 Completed Unive rsity of PFIZER VACCINE 00:00:00 [facility] SARS-COV-2 COVID-19 2020-12-19 Completed Unive rsity of PFIZER VACCINE 00:00:00 [facility] SARS-COV-2 COVID-19 2020-12-19 Completed Unive rsity of PFIZER VACCINE 00:00:00 [facility] SARS-COV-2 COVID-19 2020-12-19 Completed Unive rsity of PFIZER VACCINE 00:00:00 [facility] SARS-COV-2 COVID-19 2020-12-19 Completed Unive rsity of PFIZER VACCINE 00:00:00 [facility] SARS-COV-2 COVID-19 2020-12-19 Completed Unive rsity of PFIZER VACCINE 00:00:00 [facility] SARS-COV-2 COVID-19 2020-12-19 Completed Unive rsity of PFIZER VACCINE 00:00:00 [facility] SARS-COV-2 COVID-19 2020-12-19 Completed Unive rsity of PFIZER VACCINE 00:00:00 [facility] SARS-COV-2 COVID-19 2020-12-19 Completed Unive rsity of PFIZER VACCINE 00:00:00 [facility] SARS-COV-2 COVID-19 2020-12-19 Completed Unive rsity of PFIZER VACCINE 00:00:00 [facility] SARS-COV-2 COVID-19 2020-12-19 Completed Unive rsity of PFIZER VACCINE 00:00:00 [facility] SARS-COV-2 COVID-19 2020-12-19 Completed Unive rsity of PFIZER VACCINE 00:00:00 [facility] SARS-COV-2 COVID-19 2020-12-19 Completed Unive rsity of PFIZER VACCINE 00:00:00 [facility] SARS-COV-2 COVID-19 2020-12-19 Completed Unive rsity of PFIZER VACCINE 00:00:00 [facility] SARS-COV-2 COVID-19 2020-12-19 Completed Unive rsity of PFIZER VACCINE 00:00:00 [facility] SARS-COV-2 COVID-19 2020-12-19 Completed Unive rsity of PFIZER VACCINE 00:00:00 [facility] SARS-COV-2 COVID-19 2020-12-19 Completed Unive rsity of PFIZER VACCINE 00:00:00 [facility] SARS-COV-2 COVID-19 2020-12-19 Completed Unive rsity of PFIZER VACCINE 00:00:00 [facility] SARS-COV-2 COVID-19 2020-12-19 Completed [facility] PFIZER VACCINE 00:00:00 [facility] SARS-COV-2 COVID-19 2020-12-19 Completed [facility] PFIZER VACCINE 00:00:00 [facility] SARS-COV-2 COVID-19 2020-12-19 Completed [facility] of PFIZER VACCINE 00:00:00 [facility] SARS-COV-2 COVID-19 2020-12-19 Completed [facility] of PFIZER VACCINE 00:00:00 [facility] SARS-COV-2 COVID-19 2020-12-19 Completed [facility] PFIZER VACCINE 00:00:00 [facility] SARS-COV-2 COVID-19 2020-12-19 Completed [facility] of PFIZER VACCINE 00:00:00 [facility] SARS-COV-2 COVID-19 2020-12-19 Completed [facility] of PFIZER VACCINE 00:00:00 [facility] SARS-COV-2 COVID-19 2020-12-19 Completed [facility] of PFIZER VACCINE 00:00:00 [facility] SARS-COV-2 COVID-19 2020-12-19 Completed [facility] of PFIZER VACCINE 00:00:00 [facility] SARS-COV-2 COVID-19 2020-12-19 Completed [facility] of PFIZER VACCINE 00:00:00 [facility] SARS-COV-2 COVID-19 2020-12-19 Completed [facility] of PFIZER VACCINE 00:00:00 [facility] SARS-COV-2 COVID-19 2020-12-19 Completed [facility] of PFIZER VACCINE 00:00:00 [facility] SARS-COV-2 COVID-19 2020-12-19 Completed [facility] of PFIZER VACCINE 00:00:00 [facility] SARS-COV-2 COVID-19 2020-12-19 Completed [facility] of PFIZER VACCINE 00:00:00 [facility] SARS-COV-2 COVID-19 2020-12-19 Completed [facility] of PFIZER VACCINE 00:00:00 [facility] SARS-COV-2 COVID-19 2020-12-19 Completed [facility] of PFIZER VACCINE 00:00:00 [facility] SARS-COV-2 COVID-19 2020-12-19 Completed [facility] of PFIZER VACCINE 00:00:00 [facility] SARS-COV-2 COVID-19 2020-12-19 Completed [facility] of PFIZER VACCINE 00:00:00 [facility] SARS-COV-2 COVID-19 2020-12-19 Completed [facility] PFIZER VACCINE 00:00:00 [facility] SARS-COV-2 COVID-19 2020-12-19 Completed [facility] of PFIZER VACCINE 00:00:00 [facility] SARS-COV-2 COVID-19 2020-12-19 Completed [facility] of PFIZER VACCINE 00:00:00 [facility] SARS-COV-2 COVID-19 2020-12-19 Completed [facility] of PFIZER VACCINE 00:00:00 [facility] SARS-COV-2 COVID-19 2020-12-19 Completed [facility] of PFIZER VACCINE 00:00:00 [facility] SARS-COV-2 COVID-19 2020-12-19 Completed [facility] PFIZER VACCINE 00:00:00 [facility] SARS-COV-2 COVID-19 2020-12-19 Completed [facility] PFIZER VACCINE 00:00:00 [facility] SARS-COV-2 COVID-19 2020-12-19 Completed [facility] PFIZER VACCINE 00:00:00 [facility] SARS-COV-2 COVID-19 2020-12-19 Completed [facility] PFIZER VACCINE 00:00:00 [facility] SARS-COV-2 COVID-19 2020-12-19 Completed [facility] PFIZER VACCINE 00:00:00 [facility] SARS-COV-2 COVID-19 2020-12-19 Completed [facility] PFIZER VACCINE 00:00:00 [facility] SARS-COV-2 COVID-19 2020-12-19 Completed [facility] of PFIZER VACCINE 00:00:00 [facility] SARS-COV-2 COVID-19 2020-12-19 Completed [facility] of PFIZER VACCINE 00:00:00 [facility] SARS-COV-2 COVID-19 2020-12-19 Completed [facility] PFIZER VACCINE 00:00:00 [facility] SARS-COV-2 COVID-19 2020-12-19 Completed [facility] PFIZER VACCINE 00:00:00 [facility] SARS-COV-2 COVID-19 2020-12-19 Completed [facility] PFIZER VACCINE 00:00:00 [facility] SARS-COV-2 COVID-19 2020-12-19 Completed [facility] PFIZER VACCINE 00:00:00 [facility] 2020-11-03 Completed [facility] (Triamcinolone[facility] (Triamcinolone) 10:27:00 [facility] 2020-11-03 Completed [facility] (Triamcinolone) (Triamcinolone) 10:27:00 [facility] 2020-11-03 Completed [facility] (Triamcinolone) (Triamcinolone) 10:27:00 [facility] 2020-11-03 Completed [facility] (Triamcinolone) (Triamcinolone) 10:27:00 [facility] 2020-11-03 Completed [facility] (Triamcinolone) (Triamcinolone) 10:27:00 [facility] Fluzone Fluzone 2018-07-07 Completed [facility] - 08:47:00 [facility] Fluzone Fluzone 2018-07-07 Completed [facility] - 08:47:00 [facility] Fluzone Fluzone 2018-07-07 Completed [facility] - 08:47:00 [facility] Fluzone Fluzone 2018-07-07 Completed [facility] - 08:47:00 [facility] Fluzone Fluzone 2018-07-07 Completed [facility] - 08:47:00 [facility] Fluzone Fluzone 2018-07-07 Completed [facility] - 08:47:00 [facility] Fluzone Fluzone 2018-07-07 Completed [facility] - 08:47:00 [facility] Fluzone Fluzone 2018-07-07 Completed [facility] - 08:47:00 [facility] Fluzone Fluzone 2018-07-07 Completed [facility] - 08:47:00 [facility] Fluzone Fluzone 2018-07-07 Completed [facility] - 08:47:00 [facility] Fluzone Fluzone 2018-07-07 Completed [facility] - 08:47:00 [facility] Fluzone Fluzone 2018-07-07 Completed [facility] - 08:47:00 [facility] Fluzone Fluzone 2018-07-07 Completed [facility] - 08:47:00 [facility] Fluzone Fluzone 2018-07-07 Completed [facility] - 08:47:00 [facility] Fluzone Fluzone 2018-07-07 Completed [facility] - 08:47:00 [facility] Fluzone Fluzone 2018-07-07 Completed [facility] - 08:47:00 [facility] Solumedrol Solumedrol 2018-06-13 Completed [facility] - 125mg/2ml 125mg/2ml 09:55:00 [facility] Solumedrol Solumedrol 2018-06-13 Completed [facility] - 125mg/2ml 125mg/2ml 09:55:00 [facility] Solumedrol Solumedrol 2018-06-13 Completed [facility] - 125mg/2ml 125mg/2ml 09:55:00 [facility] Solumedrol Solumedrol 2018-06-13 Completed [facility] - 125mg/2ml 125mg/2ml 09:55:00 [facility] Solumedrol Solumedrol 2018-06-13 Completed [facility] - 125mg/2ml 125mg/2ml 09:55:00 [facility] Solumedrol Solumedrol 2018-06-13 Completed [facility] - 125mg/2ml 125mg/2ml 09:55:00 [facility] Solumedrol Solumedrol 2018-06-13 Completed [facility] - 125mg/2ml 125mg/2ml 09:55:00 [facility] Solumedrol Solumedrol 2018-06-13 Completed [facility] - 125mg/2ml 125mg/2ml 09:55:00 [facility] Solumedrol Solumedrol 2018-06-13 Completed [facility] - 125mg/2ml 125mg/2ml 09:55:00 [facility] Solumedrol Solumedrol 2018-06-13 Completed [facility] 125mg/2ml 125mg/2ml 09:55:00 [facility] Solumedrol Solumedrol 2018-03-23 Completed [facility] 125mg/2ml 125mg/2ml 14:40:00 [facility] Solumedrol Solumedrol 2018-03-23 Completed [facility] - 125mg/2ml 125mg/2ml 14:40:00 [facility] Solumedrol Solumedrol 2018-03-23 Completed [facility] 125mg/2ml 125mg/2ml 14:40:00 [facility] Solumedrol Solumedrol 2018-03-23 Completed [facility] 125mg/2ml 125mg/2ml 14:40:00 [facility] Solumedrol Solumedrol 2018-03-23 Completed [facility] - 125mg/2ml 125mg/2ml 14:40:00 [facility] Solumedrol Solumedrol 2018-03-23 Completed [facility] - 125mg/2ml 125mg/2ml 14:40:00 [facility] Solumedrol Solumedrol 2018-03-23 Completed [facility] 125mg/2ml 125mg/2ml 14:40:00 [facility] Solumedrol Solumedrol 2018-03-23 Completed [facility] - 125mg/2ml 125mg/2ml 14:40:00 [facility] Solumedrol Solumedrol 2018-03-23 Completed [facility] 125mg/2ml 125mg/2ml 14:40:00 [facility] Solumedrol Solumedrol 2018-03-23 Completed [facility] 125mg/2ml 125mg/2ml 14:40:00 [facility] Kenalog Kenalog 2017-12-05 Completed [facility] (Triamcinolone) (Triamcinolone) 13:09:00 [facility] Kenalog Kenalog 2017-12-05 Completed [facility] (Triamcinolone) (Triamcinolone) 13:09:00 [facility] Kenalog Kenalog 2017-12-05 Completed [facility] (Triamcinolone) (Triamcinolone) 13:09:00 [facility] Kenalog Kenalog 2017-12-05 Completed [facility] (Triamcinolone) (Triamcinolone) 13:09:00 [facility] Kenalog Kenalog 2017-12-05 Completed [facility] (Triamcinolone) (Triamcinolone) 13:09:00 [facility] Kenalog Kenalog 2017-12-05 Completed [facility] (Triamcinolone) (Triamcinolone) 13:09:00 [facility] Kenalog Kenalog 2017-12-05 Completed [facility] (Triamcinolone) (Triamcinolone) 13:09:00 [facility] Kenalog Kenalog 2017-12-05 Completed [facility] (Triamcinolone) (Triamcinolone) 13:09:00 [facility] Kenalog Kenalog 2017-12-05 Completed [facility] (Triamcinolone) (Triamcinolone) 13:09:00 [facility] Kenalog Kenalog 2017-12-05 Completed [facility] (Triamcinolone) (Triamcinolone) 13:09:00 [facility] TDAP 2014-10-02 Completed [facility] 00:00:00 [facility] TDAP 2014-10-02 Completed [facility] 00:00:00 [facility] TDAP 2014-10-02 Completed [facility] 00:00:00 [facility] TDAP 2014-10-02 Completed [facility] 00:00:00 [facility] TDAP 2014-10-02 Completed [facility] 00:00:00 [facility] TDAP 2014-10-02 Completed [facility] 00:00:00 [facility] TDAP 2014-10-02 Completed [facility] 00:00:00 [facility] TDAP 2014-10-02 Completed [facility] 00:00:00 [facility] TDAP 2014-10-02 Completed [facility] 00:00:00 [facility] TDAP 2014-10-02 Completed [facility] 00:00:00 [facility] TDAP 2014-10-02 Completed [facility] 00:00:00 [facility] TDAP 2014-10-02 Completed [facility] 00:00:00 [facility] TDAP 2014-10-02 Completed [facility] 00:00:00 [facility] TDAP 2014-10-02 Completed [facility] 00:00:00 [facility] TDAP 2014-10-02 Completed [facility] 00:00:00 [facility] TDAP 2014-10-02 Completed [facility] 00:00:00 [facility] TDAP 2014-10-02 Completed [facility] 00:00:00 [facility] TDAP 2014-10-02 Completed [facility] 00:00:00 [facility] TDAP 2014-10-02 Completed [facility] 00:00:00 [facility] TDAP 2014-10-02 Completed [facility] 00:00:00 [facility] TDAP 2014-10-02 Completed [facility] 00:00:00 [facility] TDAP 2014-10-02 Completed [facility] 00:00:00 [facility] TDAP 2014-10-02 Completed [facility] 00:00:00 [facility] TDAP 2014-10-02 Completed [facility] 00:00:00 [facility] TDAP 2014-10-02 Completed [facility] 00:00:00 [facility] TDAP 2014-10-02 Completed [facility] 00:00:00 [facility] TDAP 2014-10-02 Completed [facility] 00:00:00 [facility] TDAP 2014-10-02 Completed [facility] 00:00:00 [facility] TDAP 2014-10-02 Completed [facility] 00:00:00 [facility] TDAP 2014-10-02 Completed [facility] 00:00:00 [facility] TDAP 2014-10-02 Completed [facility] 00:00:00 [facility] TDAP 2014-10-02 Completed [facility] 00:00:00 [facility] TDAP 2014-10-02 Completed [facility] 00:00:00 [facility] TDAP 2014-10-02 Completed [facility] 00:00:00 [facility] TDAP 2014-10-02 Completed [facility] 00:00:00 [facility] TDAP 2014-10-02 Completed [facility] 00:00:00 [facility] TDAP 2014-10-02 Completed [facility] 00:00:00 [facility] TDAP 2014-10-02 Completed [facility] 00:00:00 [facility] TDAP 2014-10-02 Completed [facility] 00:00:00 [facility] TDAP 2014-10-02 Completed [facility] 00:00:00 [facility] TDAP 2014-10-02 Completed [facility] 00:00:00 [facility] TDAP 2014-10-02 Completed [facility] 00:00:00 [facility] TDAP 2014-10-02 Completed [facility] 00:00:00 [facility] TDAP 2014-10-02 Completed [facility] 00:00:00 [facility] TDAP 2014-10-02 Completed [facility] 00:00:00 [facility] TDAP 2014-10-02 Completed [facility] 00:00:00 [facility] TDAP 2014-10-02 Completed [facility] 00:00:00 [facility] TDAP 2014-10-02 Completed [facility] 00:00:00 [facility] TDAP 2014-10-02 Completed [facility] 00:00:00 [facility] TDAP 2014-10-02 Completed [facility] 00:00:00 [facility] TDAP 2014-10-02 Completed [facility] 00:00:00 [facility] TDAP 2014-10-02 Completed [facility] 00:00:00 [facility] TDAP 2014-10-02 Completed [facility] 00:00:00 [facility] TDAP 2014-10-02 Completed [facility] 00:00:00 [facility] TDAP 2014-10-02 Completed [facility] 00:00:00 [facility] TDAP 2014-10-02 Completed [facility] 00:00:00 [facility] TDAP 2014-10-02 Completed [facility] 00:00:00 [facility] TDAP 2014-10-02 Completed [facility] of 00:00:00 [facility] TDAP 2014-10-02 Completed [facility] 00:00:00 [facility] TDAP 2014-10-02 Completed [facility] 00:00:00 [facility] TDAP 2014-10-02 Completed [facility] 00:00:00 [facility] TDAP 2014-10-02 Completed [facility] 00:00:00 [facility] TDAP 2014-10-02 Completed [facility] 00:00:00 [facility] TDAP 2014-10-02 Completed [facility] 00:00:00 [facility] TDAP 2014-10-02 Completed [facility] 00:00:00 [facility] TDAP 2014-10-02 Completed [facility] 00:00:00 [facility] TDAP 2014-10-02 Completed [facility] 00:00:00 [facility] TDAP 2014-10-02 Completed [facility] 00:00:00 [facility] TDAP 2014-10-02 Completed [facility] 00:00:00 [facility] TDAP 2014-10-02 Completed [facility] 00:00:00 [facility] TDAP 2014-10-02 Completed [facility] 00:00:00 [facility] TDAP 2014-10-02 Completed [facility] 00:00:00 [facility] TDAP 2014-10-02 Completed [facility] 00:00:00 [facility] TDAP 2014-10-02 Completed [facility] 00:00:00 [facility] TDAP 2014-10-02 Completed [facility] 00:00:00 [facility] TDAP 2014-10-02 Completed [facility] 00:00:00 [facility] TDAP 2014-10-02 Completed [facility] 00:00:00 [facility] TDAP 2014-10-02 Completed [facility] 00:00:00 [facility] TDAP 2014-10-02 Completed [facility] 00:00:00 [facility] TDAP 2014-10-02 Completed [facility] 00:00:00 [facility] TDAP 2014-10-02 Completed [facility] 00:00:00 [facility] TDAP 2014-10-02 Completed [facility] 00:00:00 [facility] TDAP 2014-10-02 Completed [facility] 00:00:00 [facility] TDAP 2014-10-02 Completed [facility] 00:00:00 [facility] TDAP 2014-10-02 Completed [facility] 00:00:00 [facility] TDAP 2014-10-02 Completed [facility] 00:00:00 [facility] TDAP 2014-10-02 Completed [facility] 00:00:00 [facility] TDAP 2014-10-02 Completed [facility] 00:00:00 [facility] TDAP 2014-10-02 Completed [facility] 00:00:00 [facility] TDAP 2014-10-02 Completed [facility] 00:00:00 [facility] TDAP 2014-10-02 Completed [facility] 00:00:00 [facility] TDAP 2014-10-02 Completed [facility] 00:00:00 [facility] TDAP 2014-10-02 Completed [facility] 00:00:00 [facility] TDAP 2014-10-02 Completed [facility] 00:00:00 [facility] TDAP 2014-10-02 Completed [facility] 00:00:00 [facility] TDAP 2014-10-02 Completed [facility] 00:00:00 [facility] TDAP 2014-10-02 Completed [facility] 00:00:00 [facility] TDAP 2014-10-02 Completed [facility] 00:00:00 [facility] TDAP 2014-10-02 Completed [facility] 00:00:00 [facility] TDAP 2014-10-02 Completed [facility] 00:00:00 [facility] Vital Signs Vital Name Observation Time Observation Value Comments Source Systolic blood 2023-05-11 15:06:00 153 mm[Hg] [facility] of pressure [facility] Diastolic blood 2023-05-11 15:06:00 85 mm[Hg] [facility] of pressure [facility] Heart rate 2023-05-11 15:06:00 74 /min [facility] Body temperature 2023-05-11 15:06:00 35.83 [facility] Body height 2023-05-11 15:06:00 151.1 cm [facility] Body weight 2023-05-11 15:06:00 84.641 kg [facility] BMI 2023-05-11 15:06:00 37.06 kg/m2 [facility] Systolic blood 2023-02-06 13:35:00 130 mm[Hg] [facility]ity of pressure [facility] Diastolic blood 2023-02-06 13:35:00 76 mm[Hg] [facility]ive [facility]ity of [facility] Heart rate 2023-02-06 13:35:00 55 /min [facility] Body temperature 2023-02-06 13:35:00 36.89 [facility] Respiratory rate 2023-02-06 13:35:00 17 /min [facility] of [facility] Body weight 2023-02-06 13:35:00 85.049 kg [facility] BMI 2023-02-06 13:35:00 37.24 kg/m2 [facility] Oxygen saturation in 2023-02-06 13:35:00 100 /min [facility] of Arterial blood by [facility] Systolic blood 2023-01-26 18:57:00 127 mm[Hg] Univer [facility]ity of [facility] Diastolic blood 2023-01-26 18:57:00 78 mm[Hg] [facility]ive [facility]ity of [facility] Heart rate 2023-01-26 18:57:00 67 /min [facility] Body temperature 2023-01-26 18:57:00 36.28 [facility] Body height 2023-01-26 18:57:00 151.1 cm [facility] Body weight 2023-01-26 18:57:00 85.095 kg [facility] BMI 2023-01-26 18:57:00 37.26 kg/m2 [facility] Systolic blood 2023-01-25 19:45:00 130 mm[Hg] Univer [facility]ity of pressure [facility] Diastolic blood 2023-01-25 19:45:00 83 mm[Hg] [facility]ity of [facility] Heart rate 2023-01-25 19:45:00 68 /min [facility] Body temperature 2023-01-25 19:45:00 37.06 [facility] Body height 2023-01-25 19:45:00 151.1 cm [facility] Body weight 2023-01-25 19:45:00 85.458 kg [facility] BMI 2023-01-25 19:45:00 37.42 kg/m2 [facility] Systolic blood 2023-01-23 15:03:00 138 mm[Hg] Univer [facility]ity of pressure [facility] Diastolic blood 2023-01-23 15:03:00 88 mm[Hg] Unive rsity of pressure [facility] Heart rate 2023-01-23 15:03:00 52 /min [facility] Body temperature 2023-01-23 15:03:00 36.28 [facility] Body height 2023-01-23 15:03:00 151.1 cm [facility] Body weight 2023-01-23 15:03:00 86.229 kg [facility] BMI 2023-01-23 15:03:00 37.75 kg/m2 [facility] Systolic blood 2023-01-12 20:11:00 147 mm[Hg] Univer [facility]ity of pressure [facility] Diastolic blood 2023-01-12 20:11:00 79 mm[Hg] Unive rsity of pressure [facility] Heart rate 2023-01-12 20:11:00 59 /min [facility] Body temperature 2023-01-12 20:11:00 36.83 [facility] Body height 2023-01-12 20:11:00 151.1 cm [facility] Body weight 2023-01-12 20:11:00 86.002 kg [facility] BMI 2023-01-12 20:11:00 37.65 kg/m2 [facility] Heart rate 2022-12-27 15:20:00 50 /min [facility] Respiratory rate 2022-12-27 15:20:00 11 /min [facility] Oxygen saturation in 2022-12-27 15:20:00 100 /min [facility] of Arterial blood by [facility] Systolic blood 2022-12-27 15:15:00 127 mm[Hg] Univer [facility]ity of pressure [facility] Diastolic blood 2022-12-27 15:15:00 75 mm[Hg] [facility] Branch Body temperature 2022-12-27 13:49:00 36.61 Becka [facility] Body height 2022-12-13 15:00:00 151.1 cm [facility] Body weight 2022-12-13 15:00:00 84.823 kg [facility] BMI 2022-12-13 15:00:00 37.14 kg/m2 [facility] Heart rate 2022-12-27 15:20:00 50 /min [facility] Respiratory rate 2022-12-27 15:20:00 11 /min [facility] Oxygen saturation in 2022-12-27 15:20:00 100 /min [facility] Arterial blood by [facility] Pulse oximetry Branch Systolic blood 2022-12-27 15:15:00 127 mm[Hg] [facility] Diastolic blood 2022-12-27 15:15:00 75 mm[Hg] [facility] Body temperature 2022-12-27 13:49:00 36.61 Becka [facility] Body height 2022-12-13 15:00:00 151.1 cm [facility] Body weight 2022-12-13 15:00:00 84.823 kg [facility] BMI 2022-12-13 15:00:00 37.14 kg/m2 [facility] Systolic blood 2022-12-15 19:59:00 124 mm[Hg] [facility] Diastolic blood 2022-12-15 19:59:00 72 mm[Hg] [facility] Heart rate 2022-12-15 19:59:00 58 /min [facility] Body temperature 2022-12-15 19:59:00 36.72 Becka [facility] Body height 2022-12-15 19:59:00 151.1 cm [facility] Body weight 2022-12-15 19:59:00 86.274 kg [facility] BMI 2022-12-15 19:59:00 37.77 kg/m2 [facility] Systolic blood 2022-12-02 15:03:00 130 mm[Hg] [facility] Diastolic blood 2022-12-02 15:03:00 74 mm[Hg] [facility] Heart rate 2022-12-02 15:03:00 65 /min [facility] Respiratory rate 2022-12-02 15:03:00 21 /min [facility] Body height 2022-12-02 15:03:00 156.2 cm [facility] Body weight 2022-12-02 15:03:00 86.183 kg [facility] BMI 2022-12-02 15:03:00 35.32 kg/m2 [facility] Oxygen saturation in 2022-12-02 15:03:00 99 /min [facility] Arter[facility] blood by [facility] Pulse oximetry Branch Systolic blood 2022-11-29 20:39:00 133 mm[Hg] [facility] Diastolic blood 2022-11-29 20:39:00 82 mm[Hg] [facility] Heart rate 2022-11-29 20:39:00 74 /min [facility] Body temperature 2022-11-29 20:39:00 36.83 Becka [facility] Respiratory rate 2022-11-29 20:39:00 18 /min [facility] Body height 2022-11-29 20:39:00 151.1 cm [facility] Body weight 2022-11-29 20:39:00 85.186 kg [facility] BMI 2022-11-29 20:39:00 37.30 kg/m2 [facility] Systolic blood 2022-11-24 19:36:00 132 mm[Hg] [facility] Diastolic blood 2022-11-24 19:36:00 83 mm[Hg] [facility] Heart rate 2022-11-24 19:36:00 60 /min [facility] Body temperature 2022-11-24 19:36:00 37.06 Becka [facility] Respiratory rate 2022-11-24 19:36:00 18 /min [facility] Body height 2022-11-24 19:36:00 151.1 cm [facility] Body weight 2022-11-24 19:36:00 84.823 kg [facility] BMI 2022-11-24 19:36:00 37.14 kg/m2 [facility] Systolic blood 2022-11-22 17:14:00 128 mm[Hg] [facility] Diastolic blood 2022-11-22 17:14:00 70 mm[Hg] [facility] Heart rate 2022-11-22 17:14:00 60 /min [facility] Body temperature 2022-11-22 17:14:00 35.78 Becka [facility] Body height 2022-11-22 17:14:00 151.1 cm [facility] Body weight 2022-11-22 17:14:00 85.276 kg [facility] BMI 2022-11-22 17:14:00 37.34 kg/m2 [facility] Systolic blood 2022-11-16 16:59:00 121 mm[Hg] [facility] Diastolic blood 2022-11-16 16:59:00 71 mm[Hg] [facility] Heart rate 2022-11-16 16:52:00 69 /min [facility] Body temperature 2022-11-16 16:52:00 36.67 Becka [facility] Respiratory rate 2022-11-16 16:52:00 18 /min [facility] Body height 2022-11-16 16:52:00 151.1 cm [facility] Body weight 2022-11-16 16:52:00 85.639 kg [facility] BMI 2022-11-16 16:52:00 37.49 kg/m2 [facility] Systolic blood 2022-11-14 15:57:00 150 mm[Hg] [facility] Diastolic blood 2022-11-14 15:57:00 94 mm[Hg] [facility] Heart rate 2022-11-14 15:57:00 70 /min [facility] Body temperature 2022-11-14 15:57:00 36.33 Becka [facility] Body height 2022-11-14 15:57:00 149.9 cm [facility] Body weight 2022-11-14 15:57:00 86.274 kg [facility] BMI 2022-11-14 15:57:00 38.42 kg/m2 [facility] Systolic blood 2022-10-31 16:41:00 137 mm[Hg] [facility] Diastolic blood 2022-10-31 16:41:00 85 mm[Hg] [facility] Heart rate 2022-10-31 16:41:00 68 /min [facility] Body temperature 2022-10-31 16:41:00 36.83 Becka [facility] Body height 2022-10-31 16:41:00 149.9 cm [facility] Body weight 2022-10-31 16:41:00 87.272 kg [facility] BMI 2022-10-31 16:41:00 38.86 kg/m2 [facility] height 2022-10-26 09:15:00 61 [in_i] [facility] weight 2022-10-26 09:15:00 188.2 [lb_av] [facility] temperature 2022-10-26 09:15:00 98.2 [degF] [facility] bmi 2022-10-26 09:15:00 35.56 kg/m2 [facility] blood pressure 2022-10-26 09:15:00 127 mm[Hg] [facility] - systolic [facility] blood pressure 2022-10-26 09:15:00 82 mm[Hg] [facility] - diastolic [facility] height 2022-10-05 09:00:00 61 [in_i] [facility] weight 2022-10-05 09:00:00 188.2 [lb_av] [facility] temperature 2022-10-05 09:00:00 97.6 [degF] [facility] bmi 2022-10-05 09:00:00 35.56 kg/m2 [facility] blood pressure 2022-10-05 09:00:00 128 mm[Hg] [facility] - systolic [facility] blood pressure 2022-10-05 09:00:00 83 mm[Hg] [facility] - diastolic [facility] height 2022-09-15 08:30:00 61 [in_i] [facility] weight 2022-09-15 08:30:00 188.2 [lb_av] [facility] temperature 2022-09-15 08:30:00 98.6 [degF] [facility] bmi 2022-09-15 08:30:00 35.56 kg/m2 [facility] blood pressure 2022-09-15 08:30:00 132 mm[Hg] [facility] - systolic [facility] blood pressure 2022-09-15 08:30:00 80 mm[Hg] [facility] - diastolic [facility] height 2022-09-05 16:20:00 61 [in_i] [facility] weight 2022-09-05 16:20:00 190.2 [lb_av] [facility] temperature 2022-09-05 16:20:00 97.5 [degF] [facility] bmi 2022-09-05 16:20:00 35.93 kg/m2 [facility] oximetry 2022-09-05 16:20:00 100 % [facility] respiratory rate 2022-09-05 16:20:00 16 /min [facility] blood pressure 2022-09-05 16:20:00 130 mm[Hg] Common [facility] - systolic [facility] blood pressure 2022-09-05 16:20:00 68 mm[Hg] [facility] - diastolic [facility] height 2021-06-30 09:00:00 61 [in_i] Common [facility] weight 2021-06-30 09:00:00 180 [lb_av] [facility] bmi 2021-06-30 09:00:00 34.01 kg/m2 [facility] height 2021-05-31 10:20:00 61 [in_i] [facility] weight 2021-05-31 10:20:00 183.0 [lb_av] [facility] temperature 2021-05-31 10:20:00 97.7 [degF] [facility] bmi 2021-05-31 10:20:00 34.57 kg/m2 [facility] oximetry 2021-05-31 10:20:00 98 % [facility] respiratory rate 2021-05-31 10:20:00 16 /min [facility] blood pressure 2021-05-31 10:20:00 130 mm[Hg] Common [facility] - systolic [facility] blood pressure 2021-05-31 10:20:00 78 mm[Hg] Common [facility] - diastolic [facility] height 2020-11-03 10:00:00 61 [in_i] [facility] weight 2020-11-03 10:00:00 194.5 [lb_av] [facility] temperature 2020-11-03 10:00:00 98.8 [degF] [facility] bmi 2020-11-03 10:00:00 36.75 kg/m2 [facility] oximetry 2020-11-03 10:00:00 98 % [facility] respiratory rate 2020-11-03 10:00:00 18 /min [facility] blood pressure 2020-11-03 10:00:00 130 mm[Hg] Common [facility] - systolic [facility] blood pressure 2020-11-03 10:00:00 80 mm[Hg] Common [facility] - diastolic [facility] height 2020-09-18 10:20:00 61 [in_i] [facility] weight 2020-09-18 10:20:00 198.6 [lb_av] [facility] temperature 2020-09-18 10:20:00 98.0 [degF] [facility] bmi 2020-09-18 10:20:00 37.52 kg/m2 [facility] oximetry 2020-09-18 10:20:00 95 % [facility] respiratory rate 2020-09-18 10:20:00 18 /min [facility] blood pressure 2020-09-18 10:20:00 120 mm[Hg] [facility] - systolic [facility] blood pressure 2020-09-18 10:20:00 72 mm[Hg] Common [facility] diastolic [facility] BP Systolic 2022-10-04 10:10:00 133 mm[Hg] BP [...] Date / Time Performing Clinician Source Performed OP CORRESPONDENCE 2023-05-01 05:01:00 Doctor Anthony, [facility] Name Medical Branch OP CORRESPONDENCE 2023-04-12 05:01:00 Doctor Anthony [facility] REFERRAL- 2023-02-14 05:01:00 [facility]ONSE [facility] MEDICAL RELEASE/CLEARANCE 2023-01-23 05:01:00 Doctor Anthony, [facility] FORMS [facility] REFERRAL- 2023-01-10 05:01:00 [facility]RESPONSE [facility] HYSTEROSCOPY 2022-12-27 12:42[facility]00 [facility]22-12-27 12:42:00 Andrew Ovalle [facility] DILATION AND CURETTAGE 2022-12-27 12:42:[address] [facility] POCT TEST 2022-12-27 12:15:00 Phil Hoskins [facility] POCT TEST 2022-12-27 12:15:00 Phil Hoskins [facility] DAY SURGERY - ADC 2022-12-27 05:01:00 Doctor Anthony [facility] Name Medical Branch PATIENT QUESTIONNAIRE 2022-12-15 05:01:00 Doctor Anthony [facility] US PELVIS COMPLETE WITH 2022-12-05 19:10:51 Andrew Ovalle [facility] TRANSVAGINAL Medical Branch ASSIGNMENT OF BENEFITS 2022-12-05 16:04:44 Doctor Unassigned, [facility] HB ECG ROUTINE & RHYTHM 2022-12-02 15:06:13 Archana Gtz [facility] [place] EKG (SCANNED DOCUMENTS) 2022-12-02 06:01:00 Doctor Unassyodit, [facility] DSU PRE-OP 2022-12-01 06:01:00 [facility] MR LUMBAR SPINE WO 2022-11-30 21:54:58 Narcisa Glory [facility] Medical Branch NOTICE OF PRIVACY 2022-11-30 21:06:03 Doctor Unamadan, [facility] NOTICE OF PRIVACY 2022-11-30 21:06:03 Doctor Unassyodit, [facility] CONSENT/REFUSAL FOR 2022-11-30 21:05:43 [facility] DIAGNOSIS AND TREATMENT [facility] CONSENT/REFUSAL FOR 2022-11-30 21:05:43 Doctor Unassyodit, [facility] DIAGNOSIS AND TREATMENT [facility] ASSIGNMENT OF BENEFITS 2022-11-30 21:05:26 Doctor Unassigned, [facility] ASSIGNMENT OF BENEFITS 2022-11-30 21:05:26 Doctor Unassigned, [facility] POCT TEST 2022-11-24 19:46:00 Andrew Ovalle [facility] XR LUMBAR SPINE 2 VW 2022-11-22 17:31:21 Narcisa Glory [facility] PATIENT QUESTIONNAIRE 2022-11-22 06:01:00 Doctor Anthony, [facility] POCT URINALYSIS W/O 2022-11-16 00:00:00 Colin Hickey [facility] SPECIFIC GRAVITY Medical Branch XR ANKLE 3+ VW RIGHT 2022-11-14 16:08:10 Lalo Baldwin yael [facility] XR FOOT 3+ VW RIGHT 2022-11-14 16:07:57 Lalo Baldwin sity [facility] EXTERNAL PROVIDER RECORDS 2022-11-08 06:01:00 Doctor Unassigned, [facility] REFERRAL- 2022-10-27 06:01:00 [facility] RE[facility]RESPONSE [facility] Plan of Care Planned Activity Planned Date Details Comments Source Goal Plan of Care Note [code = 31954-5] Goal Plan of Care Note [code = 21866-4] Goal Plan of Care Note [code = 52268-0] Goal Plan of Care Note [code = 89094-5] Goal Plan of Care Note [code = 13674-8] Goal Plan of Care Note [code = 27909-1] Goal Plan of Care Note [code = 15066-2] Goal Plan of Care Note [code = 92369-1] Goal Plan of Care Note [code = 32530-9] Goal Plan of Care Note [code = 38998-1] Goal Plan of Care Note [code = 84071-0] Goal Plan of Care Note [code = 92474-3] Goal Plan of Care Note [code = 96734-6] Goal Plan of Care Note [code = 64303-1] Goal Plan of Care Note [code = 25904-9] Goal Plan of Care Note [code = 63181-9] Goal Plan of Care Note [code = 41263-4] Goal Plan of Care Note [code = 62961-4] Goal Plan of Care Note [code = 15898-1] Goal Plan of Care Note [code = 45495-1] Goal Plan of Care Note [code = 30118-9] Goal Plan of Care Note [code = 48006-4] Goal Plan of Care Note [code = 79985-7] Goal Plan of Care Note [code = 75305-1] Goal Plan of Care Note [code = 34328-0] Goal Plan of Care Note [code = 69322-6] Goal Plan of Care Note [code = 78494-8] Goal Plan of Care Note [code = 72096-2] Goal Plan of Care Note [code = 82153-0] Goal Plan of Care Note [code = 73975-6] Goal Plan of Care Note [code = 99930-8] Goal Plan of Care Note [code = 44850-5] Goal Plan of Care Note [code = 34329-1] Goal Plan of Care Note [code = 58526-3] Goal Plan of Care Note [code = 50484-6] Goal Plan of Care Note [code = 30930-6] Goal Plan of Care Note [code = 68697-0] Goal Plan of Care Note [code = 52796-1] Goal Plan of Care Note [code = 57920-9] Goal Plan of Care Note [code = 44402-5] Goal Plan of Care Note [code = 21182-9] Goal Plan of Care Note [code = 23631-1] Goal Plan of Care Note [code = 57465-7] Goal Plan of Care Note [code = 25300-1] Goal Plan of Care Note [code = 20098-4] Goal Plan of Care Note [code = 40587-4] Goal Plan of Care Note [code = 73915-2] Goal Plan of Care Note [code = 21517-5] Goal Plan of Care Note [code = 03279-3] Goal Plan of Care Note [code = 62211-6] Goal Plan of Care Note [code = 37549-2] Goal Plan of Care Note [code = 74698-7] Goal Plan of Care Note [code = 35832-4] Goal Plan of Care Note [code = 01404-8] Goal Plan of Care Note [code = 09741-1] Goal Plan of Care Note [code = 59218-7] Goal Plan of Care Note [code = 22461-4] Goal Plan of Care Note [code = 09456-3] Goal Plan of Care Note [code = 36222-2] Goal Plan of Care Note [code = 11625-6] Goal Plan of Care Note [code = 77502-6] Goal Plan of Care Note [code = 40787-0] Goal Plan of Care Note [code = 36368-1] Goal Plan of Care Note [code = 70197-6] Goal Plan of Care Note [code = 60312-1] Goal Plan of Care Note [code = 62859-5] Goal Plan of Care Note [code = 29235-9] Goal Plan of Care Note [code = 28339-2] Goal Plan of Care Note [code = 12772-4] Goal Plan of Care Note [code = 84482-5] Goal Plan of Care Note [code = 80934-0] Goal Plan of Care Note [code = 32456-7] Goal Plan of Care Note [code = 95611-5] Goal Plan of Care Note [code = 54393-0] Goal Plan of Care Note [code = 05193-0] Goal Plan of Care Note [code = 30548-7] Goal Plan of Care Note [code = 46861-6] Goal Plan of Care Note [code = 88694-5] Goal Plan of Care Note [code = 04884-3] Goal Plan of Care Note [code = 39232-4] Goal Plan of Care Note [code = 19499-5] Goal Plan of Care Note [code = 81167-4] Goal Plan of Care Note [code = 66820-6] Goal Plan of Care Note [code = 76662-2] Goal Plan of Care Note [code = 90737-7] Goal Plan of Care Note [code = 53744-1] Goal Plan of Care Note [code = 49576-4] Goal Plan of Care Note [code = 01360-4] Goal Plan of Care Note [code = 24957-6] Goal Plan of Care Note [code = 58850-5] Goal Plan of Care Note [code = 58513-9] Goal Plan of Care Note [code = 76750-3] Goal Plan of Care Note [code = 39858-3] Goal Plan of Care Note [code = 80186-1] Goal Plan of Care Note [code = 87347-1] Goal Plan of Care Note [code = 37617-4] Goal Plan of Care Note [code = 81790-9] Goal Plan of Care Note [code = 35979-7] Goal Plan of Care Note [code = 70432-2] Goal Plan of Care Note [code = 27087-8] Goal Plan of Care Note [code = 88865-4] Goal Plan of Care Note [code = 64441-5] Goal Plan of Care Note [code = 31586-4] Goal Plan of Care Note [code = 27959-9] Goal Plan of Care Note [code = 12548-1] Goal Plan of Care Note [code = 06463-0] Goal Plan of Care Note [code = 32381-0] Goal Plan of Care Note [code = 36611-4] Goal Plan of Care Note [code = 18224-0] Goal Plan of Care Note [code = 43811-0] Goal Plan of Care Note [code = 55222-0] Goal Plan of Care Note [code = 36831-1] Goal Plan of Care Note [code = 49716-7] Goal Plan of Care Note [code = 58096-3] Goal Plan of Care Note [code = 15823-8] Goal Plan of Care Note [code = 82471-7] Goal Plan of Care Note [code = 95088-8] Goal Plan of Care Note [code = 00590-6] Goal Plan of Care Note [code = 06593-8] Goal Plan of Care Note [code = 73697-7] Goal Plan of Care Note [code = 74941-1] Goal Plan of Care Note [code = 14984-7] Goal Plan of Care Note [code = 10200-2] Goal Plan of Care Note [code = 43985-5] Goal Plan of Care Note [code = 54813-1] Goal Plan of Care Note [code = 50050-9] Goal Plan of Care Note [code = 38171-9] Goal Plan of Care Note [code = 17309-1] Goal Plan of Care Note [code = 01236-2] Goal Plan of Care Note [code = 54717-1] Goal Plan of Care Note [code = 21572-2] Goal Plan of Care Note [code = 69725-3] Goal Plan of Care Note [code = 27572-5] Goal Plan of Care Note [code = 92490-8] Goal Plan of Care Note [code = 68352-1] Goal Plan of Care Note [code = 65136-5] Goal Plan of Care Note [code = 27706-3] Goal Plan of Care Note [code = 08304-3] Goal Plan of Care Note [code = 66440-0] Goal Plan of Care Note [code = 53900-3] Goal Plan of Care Note [code = 23987-6] Goal Plan of Care Note [code = 24239-0] Goal Plan of Care Note [code = 75954-1] Goal Plan of Care Note [code = 53630-1] Goal Plan of Care Note [code = 28822-1] Goal Plan of Care Note [code = 71920-1] Goal Plan of Care Note [code = 30464-6] Goal Plan of Care Note [code = 57042-2] Goal Plan of Care Note [code = 55767-1] Goal Plan of Care Note [code = 75439-7] Goal Plan of Care Note [code = 66983-2] Goal Plan of Care Note [code = 28977-1] Goal Plan of Care Note [code = 63146-3] Goal Plan of Care Note [code = 55037-4] Goal Plan of Care Note [code = 81532-5] Goal Plan of Care Note [code = 43761-5] Goal Plan of Care Note [code = 15051-5] Goal Plan of Care Note [code = 60840-0] Goal Plan of Care Note [code = 02060-7] Goal Plan of Care Note [code = 87379-5] Goal Plan of Care Note [code = 34950-3] Goal Plan of Care Note [code = 97432-0] Goal Plan of Care Note [code = 48235-0] Goal Plan of Care Note [code = 29353-8] Goal Plan of Care Note [code = 00157-8] Goal Plan of Care Note [code = 96268-1] Goal Plan of Care Note [code = 88745-2] Goal Plan of Care Note [code = 12031-0] Goal Plan of Care Note [code = 17447-4] Goal Plan of Care Note [code = 47717-8] Goal Plan of Care Note [code = 15340-6] Goal Plan of Care Note [code = 23892-6] Goal Plan of Care Note [code = 06153-6] Goal Plan of Care Note [code = 33087-3] Goal Plan of Care Note [code = 70162-2] Goal Plan of Care Note [code = 84679-0] Goal Plan of Care Note [code = 38836-6] Goal Plan of Care Note [code = 51616-2] Goal Plan of Care Note [code = 69501-2] Goal Plan of Care Note [code = 98258-5] Goal Plan of Care Note [code = 92900-4] Goal Plan of Care Note [code = 71869-1] Goal Plan of Care Note [code = 19226-2] Goal Plan of Care Note [code = 58331-3] Goal Plan of Care Note [code = 70670-2] Goal Plan of Care Note [code = 27754-3] Goal Plan of Care Note [code = 93551-0] Goal Plan of Care Note [code = 56690-2] Goal Plan of Care Note [code = 07384-3] Goal Plan of Care Note [code = 61915-0] Goal Plan of Care Note [code = 18522-0] Goal Plan of Care Note [code = 92606-4] Goal Plan of Care Note [code = 82984-9] Goal Plan of Care Note [code = 37081-2] Goal Plan of Care Note [code = 64059-2] Goal Plan of Care Note [code = 25869-5] Goal Plan of Care Note [code = 96899-2] Goal Plan of Care Note [code = 66433-9] Goal Plan of Care Note [code = 39509-0] Goal Plan of Care Note [code = 19299-3] Goal Plan of Care Note [code = 20018-4] Goal Plan of Care Note [code = 60786-8] Goal Plan of Care Note [code = 65597-9] Goal Plan of Care Note [code = 55105-7] Goal Plan of Care Note [code = 86056-2] Goal Plan of Care Note [code = 82006-6] Goal Plan of Care Note [code = 24407-8] Goal Plan of Care Note [code = 81966-5] Goal Plan of Care Note [code = 16849-4] Goal Plan of Care Note [code = 20212-2] Goal Plan of Care Note [code = 49279-6] Goal Plan of Care Note [code = 43184-2] Goal Plan of Care Note [code = 25697-0] Goal Plan of Care Note [code = 18687-3] Goal Plan of Care Note [code = 95627-3] Goal Plan of Care Note [code = 72215-6] Goal Plan of Care Note [code = 95321-8] Goal Plan of Care Note [code = 57625-6] Goal Plan of Care Note [code = 98276-8] Goal Plan of Care Note [code = 33300-8] Goal Plan of Care Note [code = 21632-9] Goal Plan of Care Note [code = 56069-8] Goal Plan of Care Note [code = 99243-7] Goal Plan of Care Note [code = 36961-1] Goal Plan of Care Note [code = 23727-2] Goal Plan of Care Note [code = 13390-2] Goal Plan of Care Note [code = 03777-6] Goal Plan of Care Note [code = 32379-2] Goal Plan of Care Note [code = 94691-1] Goal Plan of Care Note [code = 88053-9] Goal Plan of Care Note [code = 96743-2] Goal Plan of Care Note [code = 62511-1] Goal Plan of Care Note [code = 84311-9] Goal Plan of Care Note [code = 28767-9] Goal Plan of Care Note [code = 81526-7] Goal Plan of Care Note [code = 50669-1] Goal Plan of Care Note [code = 87212-8] Goal Plan of Care Note [code = 78397-1] Goal Plan of Care Note [code = 94460-0] Goal Plan of Care Note [code = 53267-9] Goal Plan of Care Note [code = 52410-2] Goal Plan of Care Note [code = 38178-4] Goal Plan of Care Note [code = 65243-3] Goal Plan of Care Note [code = 59611-1] Goal Plan of Care Note [code = 23679-7] Goal Plan of Care Note [code = 90684-2] Goal Plan of Care Note [code = 22216-3] Goal Plan of Care Note [code = 25830-0] Goal Plan of Care Note [code = 53787-6] Goal Plan of Care Note [code = 10100-1] Goal Plan of Care Note [code = 53110-7] Goal Plan of Care Note [code = 97531-4] Goal Plan of Care Note [code = 56254-6] Goal Plan of Care Note [code = 86292-8] Goal Plan of Care Note [code = 95842-3] Goal Plan of Care Note [code = 38176-3] Goal Plan of Care Note [code = 09508-9] Goal Plan of Care Note [code = 45080-9] Goal Plan of Care Note [code = 06965-0] Goal Plan of Care Note [code = 59636-6] Goal Plan of Care Note [code = 28058-3] Goal Plan of Care Note [code = 93442-7] Goal Plan of Care Note [code = 37845-7] Goal Plan of Care Note [code = 86641-1] Goal Plan of Care Note [code = 99985-9] Goal Plan of Care Note [code = 90024-3] Goal Plan of Care Note [code = 37502-9] Goal Plan of Care Note [code = 53574-6] Goal Plan of Care Note [code = 16879-0] Goal Plan of Care Note [code = 52853-4] Goal Plan of Care Note [code = 88336-2] Goal Plan of Care Note [code = 37893-9] Goal Plan of Care Note [code = 22036-1] Goal Plan of Care Note [code = 09867-0] Goal Plan of Care Note [code = 56458-7] Goal Plan of Care Note [code = 20679-5] Goal Plan of Care Note [code = 71805-7] Goal Plan of Care Note [code = 61953-0] Goal Plan of Care Note [code = 43920-8] Goal Plan of Care Note [code = 62684-1] Goal Plan of Care Note [code = 16946-5] Goal Plan of Care Note [code = 03217-7] Goal Plan of Care Note [code = 93762-0] Goal Plan of Care Note [code = 76338-9] Goal Plan of Care Note [code = 42269-2] Goal Plan of Care Note [code = 00715-9] Goal Plan of Care Note [code = 86751-1] Goal Plan of Care Note [code = 68003-0] Goal Plan of Care Note [code = 36696-6] Goal Plan of Care Note [code = 85961-7] Goal Plan of Care Note [code = 79910-8] Goal Plan of Care Note [code = 22800-2] Goal Plan of Care Note [code = 32623-6] Goal Plan of Care Note [code = 57731-9] Goal Plan of Care Note [code = 58865-6] Goal Plan of Care Note [code = 33670-3] Goal Plan of Care Note [code = 82072-4] Goal Plan of Care Note [code = 95501-1] Goal Plan of Care Note [code = 30089-2] Goal Plan of Care Note [code = 69240-3] Goal Plan of Care Note [code = 06862-2] Goal Plan of Care Note [code = 55607-4] Goal Plan of Care Note [code = 51020-7] Goal Plan of Care Note [code = 04173-2] Goal Plan of Care Note [code = 16736-3] Goal Plan of Care Note [code = 31336-0] Goal Plan of Care Note [code = 23147-0] Goal Plan of Care Note [code = 73595-9] Goal Plan of Care Note [code = 65177-4] Goal Plan of Care Note [code = 11680-5] Goal Plan of Care Note [code = 96402-6] Goal Plan of Care Note [code = 25561-2] Goal Plan of Care Note [code = 59221-6] Goal Plan of Care Note [code = 98739-7] Goal Plan of Care Note [code = 95602-6] Goal Plan of Care Note [code = 00446-6] Goal Plan of Care Note [code = 44948-7] Goal Plan of Care Note [code = 33015-2] Goal Plan of Care Note [code = 91928-9] Goal Plan of Care Note [code = 92934-7] Goal Plan of Care Note [code = 21627-5] Goal Plan of Care Note [code = 75447-2] Goal Plan of Care Note [code = 33025-1] Goal Plan of Care Note [code = 91307-6] Goal Plan of Care Note [code = 25547-7] Goal Plan of Care Note [code = 87212-9] Goal Plan of Care Note [code = 50208-4] Goal Plan of Care Note [code = 63466-1] Goal Plan of Care Note [code = 31906-0] Goal Plan of Care Note [code = 64660-5] Goal Plan of Care Note [code = 28285-1] Goal Plan of Care Note [code = 03494-5] Goal Plan of Care Note [code = 70095-1] Goal Plan of Care Note [code = 30180-0] Goal Plan of Care Note [code = 55709-1] Goal Plan of Care Note [code = 78408-8] Goal Plan of Care Note [code = 22471-0] Goal Plan of Care Note [code = 14906-5] Goal Plan of Care Note [code = 58609-7] Goal Plan of Care Note [code = 64966-7] Goal Plan of Care Note [code = 82123-1] Goal Plan of Care Note [code = 06212-5] Goal Plan of Care Note [code = 96425-0] Goal Plan of Care Note [code = 38795-3] Goal Plan of Care Note [code = 88265-3] Goal Plan of Care Note [code = 67410-8] Goal Plan of Care Note [code = 32524-7] Goal Plan of Care Note [code = 34460-8] Goal Plan of Care Note [code = 56139-8] Goal Plan of Care Note [code = 05469-7] Goal Plan of Care Note [code = 77005-0] Goal Plan of Care Note [code = 33650-5] Goal Plan of Care Note [code = 22943-5] Goal Plan of Care Note [code = 23470-0] Goal Plan of Care Note [code = 02961-0] Goal Plan of Care Note [code = 34208-0] Goal Plan of Care Note [code = 22403-5] Goal Plan of Care Note [code = 11910-1] Goal Plan of Care Note [code = 19946-1] Goal Plan of Care Note [code = 70878-7] Goal Plan of Care Note [code = 63109-4] Goal Plan of Care Note [code = 86032-0] Goal Plan of Care Note [code = 52932-9] Goal Plan of Care Note [code = 83028-8] Goal Plan of Care Note [code = 76579-3] Goal Plan of Care Note [code = 93290-2] Goal Plan of Care Note [code = 20134-8] Goal Plan of Care Note [code = 56822-2] Goal Plan of Care Note [code = 81289-3] Goal Plan of Care Note [code = 74350-0] Goal Plan of Care Note [code = 02846-4] Goal Plan of Care Note [code = 46402-0] Goal Plan of Care Note [code = 51780-3] Goal Plan of Care Note [code = 87050-4] Goal Plan of Care Note [code = 85094-1] Goal Plan of Care Note [code = 09531-4] Goal Plan of Care Note [code = 31350-7] Goal Plan of Care Note [code = 91281-2] Goal Plan of Care Note [code = 47085-6] Goal Plan of Care Note [code = 87360-0] Goal Plan of Care Note [code = 08264-0] Goal Plan of Care Note [code = 43959-9] Goal Plan of Care Note [code = 62307-4] Goal Plan of Care Note [code = 31768-2] Goal Plan of Care Note [code = 67807-7] Goal Plan of Care Note [code = 01555-9] Goal Plan of Care Note [code = 29812-9] Goal Plan of Care Note [code = 38769-7] Goal Plan of Care Note [code = 90954-5] Goal Plan of Care Note [code = 61654-8] Goal Plan of Care Note [code = 19695-8] Goal Plan of Care Note [code = 22391-3] Goal Plan of Care Note [code = 78173-5] Goal Plan of Care Note [code = 58534-7] Goal Plan of Care Note [code = 29612-7] Goal Plan of Care Note [code = 75327-2] Goal Plan of Care Note [code = 00975-3] Goal Plan of Care Note [code = 61257-0] Goal Plan of Care Note [code = 41959-1] Goal Plan of Care Note [code = 87687-8] Goal Plan of Care Note [code = 82309-7] Goal Plan of Care Note [code = 91361-6] Goal Plan of Care Note [code = 50960-7] Goal Plan of Care Note [code = 90859-3] Goal Plan of Care Note [code = 64425-0] Goal Plan of Care Note [code = 50061-3] Goal Plan of Care Note [code = 25686-7] Goal Plan of Care Note [code = 18705-0] Goal Plan of Care Note [code = 65202-9] Goal Plan of Care Note [code = 10498-7] Goal Plan of Care Note [code = 92789-2] Goal Plan of Care Note [code = 10917-9] Goal Plan of Care Note [code = 70760-0] Goal Plan of Care Note [code = 58723-5] Goal Plan of Care Note [code = 13534-0] Goal Plan of Care Note [code = 98380-0] Goal Plan of Care Note [code = 89891-7] Goal Plan of Care Note [code = 32141-7] Goal Plan of Care Note [code = 86238-8] Goal Plan of Care Note [code = 96098-3] Goal Plan of Care Note [code = 28759-6] Goal Plan of Care Note [code = 62184-5] Goal Plan of Care Note [code = 13419-1] Goal Plan of Care Note [code = 88069-8] Goal Plan of Care Note [code = 97844-4] Goal Plan of Care Note [code = 66349-3] Goal Plan of Care Note [code = 44435-7] Goal Plan of Care Note [code = 14805-1] Goal Plan of Care Note [code = 48444-8] Goal Plan of Care Note [code = 33011-4] Goal Plan of Care Note [code = 51361-9] Goal Plan of Care Note [code = 77658-4] Goal Plan of Care Note [code = 31849-6] Goal Plan of Care Note [code = 10399-4] Goal Plan of Care Note [code = 51857-2] Goal Plan of Care Note [code = 48642-3] Goal Plan of Care Note [code = 84238-1] Goal Plan of Care Note [code = 02950-9] Goal Plan of Care Note [code = 99586-7] Goal Plan of Care Note [code = 81865-4] Goal Plan of Care Note [code = 21756-9] Goal Plan of Care Note [code = 22294-6] Goal Plan of Care Note [code = 96700-3] Goal Plan of Care Note [code = 42577-6] Goal Plan of Care Note [code = 95715-2] Goal Plan of Care Note [code = 41256-8] Goal Plan of Care Note [code = 28798-4] Goal Plan of Care Note [code = 87386-5] Goal Plan of Care Note [code = 67706-9] Goal Plan of Care Note [code = 85349-6] Goal Plan of Care Note [code = 95737-6] Goal Plan of Care Note [code = 00031-8] Goal Plan of Care Note [code = 81922-9] Goal Plan of Care Note [code = 64690-7] Goal Plan of Care Note [code = 64679-9] Goal Plan of Care Note [code = 77135-3] Goal Plan of Care Note [code = 84342-4] Goal Plan of Care Note [code = 61550-5] Goal Plan of Care Note [code = 95217-3] Goal Plan of Care Note [code = 92760-0] Goal Plan of Care Note [code = 54906-3] Goal Plan of Care Note [code = 07658-5] Goal Plan of Care Note [code = 64074-0] Goal Plan of Care Note [code = 24787-3] Goal Plan of Care Note [code = 54986-8] Goal Plan of Care Note [code = 91282-3] Goal Plan of Care Note [code = 10542-5] Goal Plan of Care Note [code = 81794-0] Goal Plan of Care Note [code = 43817-9] Goal Plan of Care Note [code = 98185-7] Goal Plan of Care Note [code = 50987-6] Goal Plan of Care Note [code = 57423-2] Goal Plan of Care Note [code = 90458-0] Encounters Start End Encounter Admission Attending Care Care Encounter Source Date/Time Date/Time Type Type Clinicians Facility Department ID 2023-02-28 Outpatient Muñiz, STLMLC STLMLC [id number] Common 10:19:00 Radha 38644 [facility] 2022-09-12 Outpatient Stanford, Na STLMLC STLMLC [id number] 2 Common 09:27:00 [facility] 2022-09-01 Outpatient Stanford, Na STLMLC STLMLC [id number] 2 Common 15:16:00 [facility] 2022-04-11 Outpatient Stanford, Na STLMLC STLMLC [id number] 2 Common 12:56:00 [facility] 2021-10-27 Outpatient Stanford, Na STLMLC STLMLC [id number] 2 Common 14:22:04 90405 [facility] 2021-10-27 Outpatient STLMLC STLMLC [id number] Common 13:44:09 47126 [facility] 2021-10-27 Outpatient Hector, STLMLC STLMLC [id number] Common 12:14:07 Krys 62283 [facility] 2021-10-27 Outpatient Hector, STLMLC STLMLC [id number] Common 12:00:50 Krys 61431 [facility] 2021-10-27 Outpatient Millender, STLMLC STLMLC [id number]- 202 Common 11:50:51 Brittnee 53607 [facility] 2021-10-27 Outpatient Millender, STLMLC STLMLC [id number]- 202 Common 11:48:39 Brittnee 90605 [facility] 2021-10-27 Outpatient Millender, STLMLC STLMLC [id number] 202 Common 11:31:44 Brittnee 07685 [facility] 2021-10-27 Outpatient Naveenender, STLMLC STLC [id number]- Common 11:31:31 Brittnee 95031 [facility] 2023-06-13 2023-06-13 Outpatient SAKINA HONG [id number] Sakina 14:15:00 14:15:00 CHRISTEL rosales 2023-05-18 2023-05-18 Outpatient SAKINA PAGE [id number] Sakina 12:45:00 12:45:00 MANOJ rosales 2023-05-11 2023-05-11 [facility] [id number] Univers 10:15:00 10:52:51 , AC ity of [facility] 2023-05-11 2023-05-11 Office [facility] 1.2.840.114 10 [id number] Univers 10:15:00 10:52:51 Visit , Ac SPECIALTY 350.1.13.10 ity of [facility] 4.2.7.2.686 [facility] AT [phone] [address] 2023-05-02 2023-05-02 Telephone [facility] 1.2.840.114 [id number] Univers 00:00:00 00:00:00 , Ac SPECIALTY 350.1.13.10 [place] [phone] [place] arlyn CONRAD 198 [facility] 2023-05-01 2023-05-01 [facility] 1.2.840.114 [id number] Univers 00:00:00 00:00:00 , Ac SPECIALTY 350.1.13.10 [place] [phone] [place] arlyn CONRAD 198 [facility] 2023-05-01 2023-05-01 Orders Doctor DYLAN 1.2.840.114 [id number] Univers 00:00:00 00:00:00 Only Unassigned, MORGAN 350.1.13.10 ity of [facility] 4.2.7.2.686 Miguel as [id number] [address] 2023-04-12 2023-04-12 Orders Doctor DYLAN 1.2.840.114 [id number] Univers 00:00:00 00:00:00 Only Unassigned, MORGAN 350.1.13.10 ity of [facility] 4.2.7.2.686 Miguel as [id number] [address] 2023-04-10 2023-04-10 Telephone [facility] 1.2.840.114 [id number] Univers 00:00:00 00:00:00 , Ac SPECIALTY 350.1.13.10 [place] [id number] [place] ar[place] CONRAD [address] [place] [address] 2023-03-30 2023-03-30 [facility] [id number] Univers 00:00:00 00:00:00 SENDIL ity [facility] 2023-03-23 2023-03-23 [facility] [id number] Univers 10:24:27 23:59:00 COLIN ity [facility] 2023-03-23 2023-03-23 [facility] 1.2.840.114 [id number] Univers 10:24:27 23:59:00 Encounter Colin EDWARDS 350.1.13.10 [place]y of [place].7.2.[place] [id number] [facility] [address] 2023-03-22 2023-03-22 Outpatient R PEBBLES [facility] [id number] Univers 00:00:00 00:00:00 SENDIL ity [facility] 2023-03-02 2023-03-02 Patient Davidson [facility] 1.2.840.114 [id number] Univers 00:00:00 00:00:00 Secure Msg , Ac SPECIALTY 350.1.13.10 ity of [facility] 4.2.7.2.[place] [id number] Nc quitaal VICTORY 198 [facility] 2023-02-14 2023-02-14 Orders Doctor DYLAN 1.2.840.114 [id number] Univers 00:00:00 00:00:00 Only Unassigned, MORGAN 350.1.13.[address] [place] [facility] 4.2.7.2.686 Miguel as [id number] [facility] [address] 2023-02-10 2023-02-10 Outpatient R EDELMIRA [facility] [id number] Univers 00:00:00 00:00:00 COLIN iteber [facility] 2023-02-06 2023-02-06 [facility] 1.2.840.114 [id number] Univers 09:00:00 09:28:18 Visit Archana EDWARDS 350.1.13.10 it[place] [id number] [place] dicave NAL 059 [facility] 2023-02-06 2023-02-06 Outpatient R PEBBLES [facility] [id number] Univers 09:00:00 09:28:18 SENDIL ity [facility] 2023-02-01 2023-02-01 Telephone Andrew Ovalle [facility] 1.2.840.114 10 [id number] Univers 00:00:00 00:00:00 Florentino EDWARDS 350.1.13.10 i ty of [place] [id number] Nc dical NAL 134 [facility] 2023-01-26 2023-01-26 Office Davidson [facility] 1.2.840.114 10 [id number] Univers 13:45:00 15:07:58 Visit , Ac [place] 350.1.13.10 [place] [id number] Nc dical VICTORY 198 [facility] 2023-01-26 2023-01-26 Outpatient R DAVIDSON [facility] [id number] Univers 13:45:00 15:07:58 , AC ity [facility] 2023-01-26 2023-01-26 Telephone Pebbles [facility] 1.2.354.633 [id number] Univers 00:00:00 00:00:00 Archana EDWARDS 350.1.13.10 ity of [place] [id number] Nc dical NAL 059 [facility] 2023-01-26 2023-01-26 Case Andrew Ovalle [facility] 1.2.865.648 [id number] Univers 00:00:00 00:00:00 Management Florentino EDWARDS 350.1.13.10 ity of [place]2.[place].2.[place] [id number] Nc dical NAL 134 [facility] 2023-01-26 2023-01-26 Telephone Pebbles [facility] 1.2.359.945 [id number] Univers 00:00:00 00:00:00 Archana EDWARDS 350.1.13.10 ity of [place] 4[place].2.[place] [id number] Nc dical NAL 059 [facility] 2023-01-25 2023-01-25 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, 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 [facility] 1.2.840.114 [id number] Univers 15:30:00 15:45:00 Visit Andrew Ovalle 350.1.13.10 ity of [place].2.[place] [id number] Nc dical NAL 353 [facility] 2023-01-25 2023-01-25 Office Andrew Ovalle [facility] 1.2.947.795 [id number] Univers 15:00:00 15:00:00 Visit Florentino EDWARDS 350.1.13.10 i ty of [place]2.[place] [id number] Nc dical NAL 134 [facility] 2023-01-25 2023-01-25 Outpatient R ANDREW OVALLE [facility] [id number] Univers 15:00:00 14:56:59 ity of [facility] 2023-01-23 2023-01-23 Office Nicolasa [facility] 1.2.840.114 [id number] Univers 10:10:00 10:20:00 Visit Lalo SPECIALTY 350.1.13.10 ity of [facility] 4.2.7.2.[place] [id number] Nc dicave VICTORY 198 [facility] 2023-01-23 2023-01-23 Outpatient R NICOLASA [facility] [id number] Univers 10:10:00 10:10:00 LALO ity [facility] 2023-01-23 2023-01-23 Orders Doctor DYLAN 1.2.840.114 [id number] Univers 00:00:00 00:00:00 Only Unassigned, MORGAN 350.1.13.[address] [place] [facility] 4.2.7.2.686 Miguel as [id number] [address] 2023-01-23 2023-01-23 Patient Andrew Ovalle [facility] 1.2.765.591 [id number] Univers 00:00:00 00:00:00 Secure Msg Florentino EDWARDS 350.1.13.10 ity of [place].2.[place] [id number] Nc dical NAL 134 [facility] 2023-01-16 2023-01-16 Outpatient R ANDREW OVALLE [facility] [id number] Univers 14:30:00 14:30:00 ity of [facility] 2023-01-12 2023-01-12 Outpatient R ANDREW OVALLE [facility] [id number] Univers 15:00:00 15:31:18 ity of [facility] 2023-01-12 2023-01-12 Office Andrew Ovalle [facility] 1.2.448.733 [id number] Univers 15:00:00 15:31:18 Visit Florentino EDWARDS 350.1.13.10 i ty [place] [id number] Nc dical NAL 134 [facility] 2023-01-10 2023-01-10 Orders Doctor DYLAN 1.2.840.114 [id number] Univers 00:00:00 00:00:00 Only Unassigned, MORGAN 350.1.13.[address] [place] [facility] 4.2.7.2.686 Miguel as [id number] [facility] [address] [place] 2023-01-02 2023-01-02 Patient Davidson [facility] 1.2.840.114 10 [id number] Univers 00:00:00 00:00:00 Secure Msg , Ac SPECIALTY 350.1.13.10 [place] [id number] Nc arlyn HOUSTON 198 [facility] 2022-12-29 2022-12-29 Outpatient R EDELMIRA [facility] [id number] Univers 00:00:00 00:00:00 [facility]-27 2022-12-27 Outpatient R TERESA ACEVEDO [facility] [id number] Univers 15:00:00 15:00:00 TERESA ACEVEDO iteber [facility] 2022-12-27 2022-12-27 Surgery Andrew Ovalle [facility] 1.2.392.949 [id number] [id number] Univers 07:50:00 10:40:00 Cam GRACE 350.1.13.10 i ty of [place] [id number] [address] 2022-12-27 2022-12-27 Outpatient R ANDERW OVALLE [facility] 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 [id number] Univers 07:13:00 10:35:00 ity of [facility] 2022-12-27 2022-12-27 Hospital Andrew Ovalle [facility] 1.2.840.114 [id number] Univers 07:13:00 10:35:00 Encounter Cam FELIPETON 350.1.13.10 ity of [place] [id number] [place] [address] [place] 2022-12-27 2022-12-27 Orders Doctor DYLAN 1.2.840.114 [id number] Univers 00:00:00 00:00:00 Only Unassigned, MORGAN 350.1.13.10 ity of [facility] 4.2.7.2.686 Miguel as [id number] [facility] [address] [place] 2022-12-26 2022-12-26 Outpatient R VASQUEZ [facility] [id number] Univers 09:15:00 09:15:00 ity of [facility] 2022-12-21 2022-12-21 [facility] 1.2.840.114 10 [id number] Univers 00:00:00 00:00:00 Cam GRACE 350.1.13.10 i ty [place] [id number] Nc dical NAL 134 [facility] 2022-12-21 2022-12-21 Patient [facility] 1.2.840.114 10 [id number] Univers 00:00:00 00:00:00 Secure Msg , Ac SPECIALTY 350.1.13.10 [place] 137.3968974 Me dical VICTORY 198 [facility] 2022-12-16 2022-12-16 Telephone [facility] 1.2.840.114 [id number] Univers 00:00:00 00:00:00 , Ac SPECIALTY 350.1.13.10 [place] 278.8083091 Me dical VICTORY 198 [facility] 2022-12-15 2022-12-15 Outpatient R [facility] 653 [id number] Univers 14:45:00 15:54:11 , AC ity of [facility] 2022-12-15 2022-12-15 Office [facility] 1.2.840.114 10 [id number] Univers 14:45:00 15:54:11 Visit , Ac SPECIALTY 350.1.13.10 [place] [id number] Nc dical VICTORY 198 [facility] 2022-12-15 2022-12-15 Orders Doctor DYLAN 1.2.840.114 [id number] Univers 00:00:00 00:00:00 Only Unassigned, MORGAN 350.1.13.[address] [place] [facility] 4.2.7.2.686 Miguel as [phone] [facility] [address] [place] 2022-12-12 2022-12-12 Patient Vasquez [facility] [id number] [id number] Univers 00:00:00 00:00:00 Secure Msg Florentino EDWARDS 350.1.13.10 [place] [phone] [place] dical NAL 134 [facility] 2022-12-06 2022-12-06 Telephone Vasquez [facility] 1.2.840.114 [id number] Univers 00:00:00 00:00:00 Cam GRACE 350.1.13.10 i [place] [id number] [facility] [address] [place] 2022-12-06 2022-12-06 Patient Pebbles [facility] 1.2.840.114 [id number] Univers 00:00:00 00:00:00 Secure Msg Archana EDWARDS 350.1.13.10 [place] [phone] N[place] dical NAL 059 [facility] 2022-12-05 2022-12-05 Outpatient R VASQUEZ ANDREW [facility] [id number] Univers 10:06:40 23:59:00 ity of [facility] 2022-12-05 2022-12-05 Hospital Andrew Ovalle [facility] 1.2.840.114 [id number] Univers 10:06:40 23:59:00 Encounter Florentino EDWARDS 350.1.13.10 [place] [phone] [facility] [address] [place] 2022-12-05 2022-12-05 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, Adc Lab [facility] 1.2.840.114 [id number] Univers 09:45:00 10:00:00 Visit Andrew Ovalle GRACE 350.1.13.10 [place] [phone] N[place] dical NAL 353 [facility] 2022-12-05 2022-12-05 Orders Doctor DYLAN 1.2.840.114 [id number] Univers 00:00:00 00:00:00 Only Unassigned, MORGAN 350.1.13.[address] [place] [facility] 4.2.7.2.686 Miguel as [phone] [facility] [address] [place] 2022-12-02 2022-12-02 Outpatient R PEBBLES [facility] [id number] Univers 09:00:00 09:33:56 SENDIL ity [facility] 2022-12-02 2022-12-02 Office Pebbles [facility] 1.2.840.114 [id number] Univers 09:00:00 09:33:56 Visit Archana EDWARDS 350.1.13.10 ity [place] [phone] N[place] dical NAL 059 [facility] 2022-12-02 2022-12-02 Telephone Pebbles SDMANSOOR 1.2.990.811 [id number] Univers 00:00:00 00:00:00 Archana EDWARDS 350.1.13.10 it[place] [phone] Nc dical NAL 059 [facility] 2022-12-02 2022-12-02 Telephone Pebbles [facility] 1.2.385.557 [id number] Univers 00:00:00 00:00:00 Sendil Joel EDWARDS 350.1.13.10 it[place] of [place] [phone] Nc dical NAL 059 [facility] 2022-12-02 2022-12-02 Orders Doctor RICHARDSON 1.2.840.114 [id number] Univers 00:00:00 00:00:00 Only Unassigned, MORGAN 350.1.13.[address] [place] [facility] 4.2.7.2.686 Miguel as [phone] [facility] [address] [place] 2022-12-01 2022-12-01 Orders Doctor DYLAN 1.2.840.114 [id number] Univers 00:00:00 00:00:00 Only Unassigned, MORGAN 350.1.13.[address] [place] [facility] 4.2.7.2.686 Miguel as [phone] [address] 2022-11-30 2022-11-30 Outpatient R NARCISA [facility] [id number] Univers 15:10:11 23:59:00 GLORY ity of [facility] 2022-11-30 2022-11-30 [facility] 1.2.840.114 10 [id number] Univers 15:10:11 23:59:00 Encounter lGory WANGRICO 350.1.13.10 it[place] [id number] [facility] [address] [place] 2022-11-29 2022-11-29 Outpatient R ANDREW OVALLE [facility] [id number] Univers 09:30:00 15:07:47 ity of [facility] 2022-11-29 2022-11-29 Office Andrew Ovalle [facility] 1.2.072.058 [id number] Univers 09:30:00 15:07:47 Visit Florentino EDWARDS 350.1.13.10 i ty of [place] [phone] Nc dical NAL 134 [facility] 2022-11-29 2022-11-29 Patient Manuel [facility] 1.2.840.114 [id number] Univers 00:00:00 00:00:00 Secure Msg Catrachita EDWARDS 350.1.13.10 ity of [place] [id number] Nc dical NAL 134 [facility] 2022-11-29 2022-11-29 Prep For Andrew Ovalle [facility] 1.2.840.114 [id number] Univers 00:00:00 00:00:00 Surgery Florentino EDWARDS 350.1.13.10 i ty of [place].2.[place] [id number] Nc dical NAL [address] [place] [address] 2022-11-24 2022-11-24 Outpatient R ANDREW OVALLE [facility] [id number] Univers 13:30:00 14:01:38 ity [facility] 2022-11-24 2022-11-24 Office Andrew Ovalle [facility] 1.2.594.128 [id number] Univers 13:30:00 14:01:38 Visit Florentino DEWARDS 350.1.13.10 i ty [place] [phone] Nc dicnm NAL [address] [place] [address] 2022-11-22 2022-11-22 [facility] 1.2.840.114 [id number] Univers 11:24:38 23:59:00 Encounter Glory SPECIALTY 350.1.13.10 [place] [phone] Nc arlyn CONRAD 809 [facility] 2022-11-22 2022-11-22 [facility] [id number] Univers 11:20:00 12:01:04 GLORY ity [facility] 2022-11-22 2022-11-22 Office [facility] 1.2.840.114 [id number] Univers 11:20:00 11:40:00 Visit Glory SPECIALTY 350.1.13.10 it[place] [id number] Nc arlyn CONRAD 198 [facility] 2022-11-16 2022-11-16 Office [facility] 1.2.163.356 [id number] Univers 10:45:00 11:15:00 Visit Colin EDWARDS 350.1.13.10 i ty fabio [place].2.[place] [facility] [phone] Nc arlyn NICOLE 134 [facility] 2022-11-16 2022-11-16 [facility] [id number] Univers 10:45:00 10:45:00 COLIN ity [facility] 2022-11-14 2022-11-14 Outpatient R [facility] [id number] Univers 10:00:00 23:59:00 LALO ity [facility] 2022-11-14 2022-11-14 [facility] 1.2.840.114 1 [id number] Univers 10:00:00 23:59:00 Encounter Lalo SPECIALTY 350.1.13.10 it[place] [phone] Nc quitaave CONRAD 809 [facility] 2022-11-14 2022-11-14 Cnc Lathe Machine Operator Lab, [facility] 1.2.840.1 14 [id number] Univers 13:15:00 13:30:00 Visit Colin Hic[facility] 350.1.13.10 ity fabio [place] 4.2.7.2.686 Miguel as KENNEDY?BLEA [phone] Nc quitaave KIM 353 [facility] OFFICE [facility] 2022-11-14 2022-11-14 Office [facility] 1.2.840.114 [id number] Univers 10:10:00 10:27:15 Visit Lalo SPECIALTY 350.1.13.10 it[place] [phone] Nc arlyn CONRAD 198 [facility] 2022-11-14 2022-11-14 [facility] 1.2.840.114 1 [id number] Univers 09:59:51 09:59:51 Encounter Lalo SPECIALTY 350.1.13.10 it[place] [phone] Nc arlyn CONRAD 809 [facility] 2022-11-08 2022-11-08 Orders Doctor DYLAN 1.2.840.114 [id number] Univers 00:00:00 00:00:00 Only Unassigned, MORGAN 350.1.13.10 ity of [place] [facility] 4.2.7.2.686 Miguel as [phone] [facility] [address] 2022-11-04 2022-11-04 Patient Edelmira [facility] 1.2.752.142 [id number] Univers 00:00:00 00:00:00 Secure Msg Colin EDWARDS 350.1.13.10 ity of [place] [id number] Nc quitaave NICOLE [address] [facility] 2022-11-01 2022-11-01 Cnc Lathe Machine Operator Lab, Scott - Db [facility] 1.2.840.1 14 [id number] Univers 11:30:00 11:45:00 Visit Colin [facility]ickey [facility] 350.1.13.10 ity of [place] [facility] 4.2.7.2.686 Miguel as KENNEDY?BLEA [phone] Nc arlyn KIM [address] [place] MEDICAL OFFICE BUILDING 2022-11-01 2022-11-01 Outpatient R EDELMIRA [facility] [id number] Univers 11:30:00 11:30:00 COLIN ity of [facility] 2022-11-01 2022-11-01 Case DAVID Hickey 1.2.673.514 [id number] Univers 00:00:00 00:00:00 Management Colin PEDIATRIC 350.1.13.10 [place] [phone] [facility] PRIMARY [address] CARE CLINIC 2022-10-31 2022-10-31 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, Adc Lab [facility] 1.2.840.114 [id number] Univers 11:45:00 12:00:00 Visit Andrew Ovalle 350.1.13.10 ity of [place].2.[place] [id number] Me dical NAL 353 [facility] 2022-10-31 2022-10-31 Outpatient R PATO OVALLEEN [facility] [id number] Univers 10:00:00 11:21:47 ity of [facility] 2022-10-31 2022-10-31 Office Colin Hickey [facility] 1.2.840.11 4 [id number] Univers 10:00:00 11:21:47 Visit Andrew Ovalle 350.1.13.10 ity [facility] 4.2.7.2.[place] [phone] Nc dical NAL 134 [facility] 2022-10-27 2022-10-27 Orders Doctor DYLAN 1.2.840.114 [id number] Univers 00:00:00 00:00:00 Only Unassigned, MORGAN 350.1.13.10 [facility] 4.2.7.2.686 Miguel as [id number] [address] 2022-10-27 2022-10-27 (TEL) STLMLC STLMLC [id number] Co mmon 00:00:00 00:00:00 [facility] 2022-10-26 2022-10-26 OFFICE STLMLC STLMLC [id number] Co mmon 00:00:00 00:00:00 VISIT EST Spir it PT LEVEL 3 - [facility] 2022-10-14 2022-10-14 (TEL) STLMLC STLMLC [id number] Co mmon 00:00:00 00:00:00 [facility] 2022-10-05 2022-10-05 OFFICE STLMLC STLMLC [id number] Co mmon 00:00:00 00:00:00 VISIT EST Spir it PT LEVEL 3 - [facility] 2022-10-04 2022-10-04 Outpatient SFA HAVEN [id number] Augusto 10:05:21 10:05:21 0103 F Kaushik 2022-10-04 2022-10-04 Outpatient [id number]- [id number] 0c c40m44-7 00:00:00 00:00:00 Visit 39aa-4be2 9aa-4be2-b -w48w-1w0 80b-0z462b 10wi2m37q f9a68c 2022-09-28 2022-09-28 Outpatient SFA SFA [id number] Augusto 08:46:59 08:46:59 1228 F Kaushik 2022-09-28 2022-09-28 Outpatient wrr3lo05- [id number] fa o9mu30-l 00:00:00 00:00:00 Visit f5d3-3b96 4n3-7k39-f -u0q5-8tn 4l2-3gy395 646enh427 swg520 2022-09-18 2022-09-18 Outpatient SFA SFA [id number] 022 Augusto 10:59:17 10:59:17 1218 F Kaushik 2022-09-18 2022-09-18 Outpatient y7s99dt6- [id number] a1 g59tm0-j 00:00:00 00:00:00 Visit a70x-30v6 97d-43d3-a -vl4w-69l y5g-98k353 754v50975 q01458 2022-09-15 2022-09-15 Outpatient SFA SFA [id number] 022 Augusto 13:46:23 13:46:23 1215 F Kaushik 2022-09-15 2022-09-15 Outpatient 960m77ze- [id number] 9l96mo-2 00:00:00 00:00:00 Visit 12fe-4247 2fe-4247-9 -93ff-29f 3ff-29f10e 39zz7565s d7348m 2022-09-15 2022-09-15 OFFICE STLMLC STLMLC [id number] Co mmon 00:00:00 00:00:00 VISIT NEW Spir it PT LEVEL 3 - [facility] 2022-09-05 2022-09-05 PREV VISIT STLMLC STLMLC [id number] Common 00:00:00 00:00:00 EST AGE Spirit 40-64 - [facility] 2022-07-13 2022-07-13 Outpatient SFA SFA [id number] Augusto 17:17:07 17:17:07 1012 F Kaushik 2022-07-13 2022-07-13 Outpatient [id number]- [id number] bc 9i3833-2 00:00:00 00:00:00 Visit 4l92-5426 l39-5162-2 -14f9-md2 7o9-re2977 445423f5j 653d6b 2022-06-21 2022-06-21 Outpatient gjw544gn- [id number] q992hj-8 00:00:00 00:00:00 Visit 19k4-973v 2v8-453w-5 -8800-e5b 800-e5bc2a i5s0l4zf5 3a1ae7 2022-06-13 2022-06-13 Outpatient [id number]- [id number] 108ai2-8 00:00:00 00:00:00 Visit 33o3-0n56 7s5-4a35-1 -844a-346 44a-3462aa 7sw534pn9 333fb4 2022-06-10 2022-06-10 Outpatient f41xbb19- [id number] d8 2jag69-k 00:00:00 00:00:00 Visit er4i-250i k1s-049l-u -h81f-gla 30f-baeed1 sc45f2cic 3c2cfd 2022-06-07 2022-06-07 Outpatient 656u5o8q- [id number] 8g5n4h-g 00:00:00 00:00:00 Visit t75t-8zn9 14d-4ac1-a -aca5-fb2 ca5-fb2d67 p97r21271 b35878 2022-06-02 2022-06-02 Outpatient [id number]- [id number] 9036ff-e 00:00:00 00:00:00 Visit ye4q-87od s4v-95qa-4 -2tv8-1pr ec9-4of198 757725i5s 563b9b 2022-05-27 2022-05-27 Laboratory Only, Ang Db Test [facility] 1.2.8 40.114 [id number] Univers 14:15:00 14:30:00 [facility] 350.1.13.10 ity [facility] 4.2.7.2.686 Miguel as KENNEDY?BLEA [id number] Nc arlyn [address] MEDICAL OFFICE BUILDING 2022-05-27 2022-05-27 Outpatient R [facility] [id number] Univers 14:15:00 14:15:00 [id number] [facility] 2022-05-27 2022-05-27 Outpatient R LEEANN, [facility] [id number] Univers 14:15:00 14:15:00 RADHA [facility] 2022-04-22 2022-04-22 Outpatient 7jg1711q- [id number] 6e r1214n-9 00:00:00 00:00:00 Visit 5555-4f40 555-4f40-a -s81v-974 37d-209fea dlz61kp2p 58af1b 2021-06-30 2021-06-30 OFFICE STLMLC STLMLC [id number] Co mmon 00:00:00 00:00:00 VISIT EST Spir it PT LEVEL 3 - [facility] 2021-06-05 2021-06-05 (TEL) STLMLC STLMLC [id number] Co mmon 00:00:00 00:00:00 [facility] 2021-05-31 2021-05-31 OFFICE STLMLC STLMLC [id number] Co mmon 00:00:00 00:00:00 VISIT Spirit ESTAB PT - [facility] LEVEL 4 [facility] 2021-01-09 2021-01-09 Outpatient [facility] [id number] Univers 11:55:00 11:55:00 [facility] 2020-12-19 2020-12-19 Outpatient [facility] [id number] Univers 16:25:00 16:25:00 [facility] 2020-11-04 2020-11-04 (TEL) STLMLC STLMLC [id number] Co mmon 00:00:00 00:00:00 [facility] 2020-11-03 2020-11-03 OFFICE STLMLC STLMLC [id number] Co mmon 00:00:00 00:00:00 VISIT EST Spir it PT LEVEL 3 - [facility] 2020-09-24 2020-09-24 (TEL) STLMLC STLMLC [id number] Co mmon 00:00:00 00:00:00 [facility] 2020-09-22 2020-09-22 OFFICE STLMLC STLMLC [id number] Co mmon 00:00:00 00:00:00 VISIT EST Spir it PT LEVEL 3 [facility] 2020-09-22 2020-09-22 (TEL) STLMLC STLMLC [id number] Co mmon 00:00:00 00:00:00 [facility] 2020-09-21 2020-09-21 (TEL) STLMLC STLMLC [id number] Co mmon 00:00:00 00:00:00 [facility] 2020-09-18 2020-09-18 OFFICE STLMLC STLMLC [id number] Co mmon 00:00:00 00:00:00 VISIT EST Spir it PT LEVEL 3 [facility] 2020-04-17 2020-04-17 Out[facility] [id number] Common 09:20:00 09:20:00 t [facility] [address] [facility] 2020-04-14 2020-04-14 Outpatient [facility] [id number] Common 14:41:00 14:41:00 t [facility] [address] [facility] 2020-03-20 2020-03-20 Outpatient [facility] [id number] Common 15:20:00 15:20:00 t [facility] [address] [facility] 2019-12-18 2019-12-18 Outpatient [facility] [id number] Common 09:22:00 09:22:00 t [facility] [address] [facility] 2019-10-07 2019-10-07 Outpatient [facility] [id number] Common 13:00:00 13:00:00 t [facility] [address] [facility] 2019-09-17 2019-09-17 Out[facility] [id number] Common 10:42:00 10:42:00 t [facility] [address] [facility] 2019-09-17 2019-09-17 Out[facility] [id number] Common 09:30:00 09:30:[address] [facility] 2019-07-24 2019-07-24 Outpatient [facility] [id number] Common 00:37:00 00:37:[address] [facility] 2019-07-21 2019-07-21 Out[facility] [id number] Common 14:16:00 14:16:[address] [facility] 2019-07-19 2019-07-19 Out[facility] [id number] Common 12:07:00 12:07:[address] [facility] 2019-07-19 2019-07-19 Out[facility] [id number] Common 10:40:00 10:40:[address] [facility] 2019-06-10 2019-06-10 Outpatient [facility] [id number] Common 09:59:00 09:59:00 t [facility] S pirit Care [facility] 2019-06-07 2019-06-07 Outpatient [facility] [id number] Common 16:30:00 16:30:00 t [facility] S pirit Care [facility] 2018-07-02 2018-07-02 Outpatient [facility] [id number] Common 10:54:00 10:54:[address] [facility] 2018-06-28 2018-06-28 Out[facility] [id number] Common 16:51:00 16:51:[address] [facility] 2018-06-13 2018-06-13 Outpatient [facility] [id number] Common 21:04:00 21:04:[address] [facility] 2018-06-13 2018-06-13 Out[facility] [id number] Common 11:49:00 11:49:[address] [facility] 2018-06-13 2018-06-13 Out[facility] [id number] Common 09:00:00 09:00:[address] [facility] 2018-05-14 2018-05-14 Outpatient [facility] [id number] Common 17:36:00 17:36:[address] [facility] 2018-04-17 2018-04-17 Outpatient [facility] [id number] Common 16:15:00 16:15:[address] [facility] 2018-04-11 2018-04-11 Out[facility] [id number] Common 09:07:00 09:07:[address] [facility] 2018-04-09 2018-04-09 Outpatient [facility] 14 [id number] Common 11:50:00 11:50:[address] [facility] 2018-03-26 2018-03-26 Out[facility] [id number] Common 21:50:00 21:50:[address] [facility] 2018-03-23 2018-03-23 Out[facility] [id number] Common 14:00:00 14:00:[address] [facility] 2018-03-14 2018-03-14 Out[facility] [id number] Common 14:16:00 14:16:[address] [facility] 2018-03-09 2018-03-09 Outpatient [facility] [id number] Common 14:30:00 14:30:[address] [facility] 2018-01-23 2018-01-23 Outpatient [facility] [id number] Common 10:00:00 10:00:00 t [facility] Results Test Description Test Time Test Comments Results Result Comments Source CT/NG, NAAT, URINE 2023-05-12 18:39:31 Test Item Value Reference Range Interpretation Comme nts CHLAMYDIA, NAAT, URINE (test NEGATIVE NEGATIVE Testing is performed with Steve code = 14977) CECILE 6800/880 0 systems usingreal-time polymerase chain reaction (PCR) method. A negative result does not exclude low level infection, spec imensampling error, or collection e rror. GONORRHEA, NAAT, URINE (test NEGATIVE NEGATIVE Testing is performed with Steve code = 06429) CECILE 6800/880 0 systems usingreal-time polymerase chain reaction (PCR) method. A negative result does not exclude low level infection, spec imensampling error, or collection e rror. TRICHOMONAS, NAAT, [id number] 18:21:30 Test Item Value Reference Range Interpretation Comments TRICHOMONAS, NEGATIVE NEGATIVE Testing is per formed with NAAT, URINE (test Steve SABIHA S 6800/8800 method code = 05494) usingreal-time polymerase chain reaction (PCR) method. A negative resu lt does not exclude low lev el infection, specimensamplin g error, or collection erro r. UNLESS OTHERWISE INDIC ATED, ALL TESTING [place] [address] LABORATORY DIRE CTOR: ANY REARDON M.D. CLIA NUMBER [id number] CAP ACCREDITATION N O. [id number] HIV 1/2 4TH GEN, RFLX [id number] 06:48:28 Test Item Value Reference Range Interpretation Comments HIV 1/2 4TH GEN, RFLX CONF (test NON-REACTIVE NON-REACTIVE code = 3514) HEPATITIS PANEL, [id number] 06:48:28 Test Item Value Reference Range Interpretation Comments HEPATITIS A IgM (test NON-REACTIVE NON-REACTIVE code = 75507) HEPATITIS B CORE IgM NON-REACTIVE NON-REACTIVE (test code = 4644) HEPATITIS B SURF AG NON-REACTIVE NON-REACTIVE (test code = 2739) HEPATITIS C ANTIBODY NON-REACTIVE NON-REACTIVE (test code = 4675) INTERPRETATION (NOTE) Hepatitis A HEPATITIS A: (test code sero logy shows no = 2552) evidence of acu te hepatitis A. INTERPRETATION (NOTE) Hepatitis B HEPATITIS B: (test code sero logy shows no = 70592) evidence of acu te hepatitis B and no indication of exposure to hepatitis B vir us in the previous daisy eight months. INTERPRETATION (NOTE) Hepatitis C HEPATITIS C: (test code sero logy shows no = 92378) evidence of exposure to hepatitisC viru s at this time. I t can take up to 12 months after exposure tothe hepatitis C vir us for antibodies to become detectab le in the blood in certain patient s. [id number] 03:59:34 Test Item Value Reference Range Interpretation Comments RPR RESULT (test code = NON-REACTIVE NON-REACTIVE 3501) RPR TITER (test code = 3500) NOT INDIC. TITER NOT INDIC. POCT [id number] 12:16:00 Test Item Value Reference Range Interpretation Comments POCT PREG (test code = 1605) Negative On board controls acceptable with Yes C Line (test code = 3574) POCT PREG LOT # (test code = 3575) [id number] POCT PREG TEST DATE (test 03/01/24 code = 3576) Lab Interpretation (test code = Normal 44108-6) [facility] [id number] 12:16:00 Test Item Value Reference Range Interpretation Comments POCT PREG (test code = 1605) Negative On board controls acceptable with Yes C Line (test code = 3574) POCT PREG LOT # (test code = 3575) [id number] POCT PREG TEST DATE (test 03/01/24 code = 3576) Lab Interpretation (test code = Normal 79125-9) [facility] [id number] 19:46:00 Test Item Value Reference Range Interpretation Comments POCT PREG (test code = 1605) Negative On board controls acceptable with C Yes Line (test code = 3574) POCT PREG LOT # (test code = 3575) POCT PREG TEST DATE (test code = 3576) [facility] [id number] 19:46:00 Test Item Value Reference Range Interpretation Comments POCT PREG (test code = 1605) Negative On board controls acceptable with C Yes Line (test code = 3574) POCT PREG LOT # (test code = 3575) POCT PREG TEST DATE (test code = 3576) [facility] [id number] 17:08:00 Test Item Value Reference Range Interpretation [...] code = 3257) Negative Negative - [facility] [id number] 17:08:00 Test Item Value Reference Range Interpretation [...] code = 3257) Negative Negative - Negative [facility], [facility]AT, [id number] 20:17:25 Test Item Value Reference Range Interpretation Comments GONORRHEA, NAAT NEGATIVE NEGATIVE Note: Testi ng is (test code = 86025) performe d with Steve CECILE 6800/8800 systems using real-time polymerase ankita n reaction (PCR) method. CHLAMYDIA, NAAT NEGATIVE NEGATIVE Note: Testi ng is (test code = 99252) performe d with Steve CECILE 6800/8800 systems using real-time polymerase ankita n reaction (PCR) method. VAGINAL PATHOGENS DNA [id number] 15:23:23 Test Item Value Reference Range Interpretation Comments RAMESH SPECIES NEGATIVE NEGATIVE (test code = 18489) G. VAGINALIS NEGATIVE NEGATIVE (test code = 94788) T. VAGINALIS POSITIVE NEGATIVE A Note: The BD A ffirm VPIII (test code = Microbial Ident ification ) Testis a DNA pr obe test intended for us e in the detectionand id entification of Ramesh spec ies, Gardnerellavagi nalis and Trichomonas vag inalis nucleic acid. U NLESS OTHERWISE INDIC ATED, ALL TESTING PERFORM ED ATCLINICAL PATHOLOGY [facility] [address] [place] [id number] LABORATOR Y DIRECTOR: ODILON MARIANO M.D. IA NUMBER [id number] CAP ACCREDITATION N O. [id number] HIV 1/2 4TH GEN, RFLX [id number] 05:39:18 Test Item Value Reference Range Interpretation Comments HIV 1/2 4TH GEN, RFLX CONF (test NON-REACTIVE NON-REACTIVE code = 3514) HEPATITIS PANEL, [id number] 05:39:18 Test Item Value Reference Range Interpretation Comments HEPATITIS A IgM (test NON-REACTIVE NON-REACTIVE code = 14015) HEPATITIS B CORE IgM NON-REACTIVE NON-REACTIVE (test code = 4644) HEPATITIS B SURF AG NON-REACTIVE NON-REACTIVE (test code = 2739) HEPATITIS C ANTIBODY NON-REACTIVE NON-REACTIVE (test code = 4675) INTERPRETATION (NOTE) Hepatitis A HEPATITIS A: (test code sero logy shows no = 2552) evidence of acu te hepatitis A. INTERPRETATION (NOTE) Hepatitis B HEPATITIS B: (test code sero logy shows no = 38311) evidence of acu te hepatitis B and no indication of exposure to hepatitis B vir us in the previous daisy eight months. INTERPRETATION (NOTE) Hepatitis C HEPATITIS C: (test code sero logy shows no = 51491) evidence of exposure to hepatitisC viru s at this time. I t can take up to 12 months after exposure tothe hepatitis C vir us for antibodies to become detectab le in the blood in certain patient s. RPR REFLEX TO T. PALLIDUM - [id number] 04:43:57 Test Item Value Reference Range Interpretation Comments RPR (test code = 77097) NON-REACTIVE NON-REACTIVE RPR TITER (test code = 3500) NOT INDIC. TITER NOT INDIC. RPR REFLEX TO T. PALLIDUM - [id number] 00:00:00 Test Item Value Reference Range Interpretation Comments RPR (test code = 96128) NON-REACTIVE RPR TITER (test code = 3500) NOT INDIC. TITER RPR REFLEX TO T. PALLIDUM - [id number] 00:00:00 Test Item Value Reference Range Interpretation Comments RPR (test code = 33327) NON-REACTIVE RPR TITER (test code = 3500) NOT INDIC. TITER HIV AB/AG COMBO RFLX [id number] 00:00:00 Test Item Value Reference Range Interpretation Comments HIV 1/2 4TH GEN, RFLX CONF (test NON-REACTIVE code = 3514) HIV AB/AG COMBO RFLX [id number] 00:00:00 Test Item Value Reference Range Interpretation Comments HIV 1/2 4TH GEN, RFLX CONF (test NON-REACTIVE code = 3514) ACUTE HEPATITIS [id number] 00:00:00 Test Item Value Reference Range Interpretation Comments HEPATITIS A IgM (test code = NON-REACTIVE 94036) HEPATITIS B CORE IgM (test code NON-REACTIVE = 4644) HEPATITIS B SURF AG (test code = NON-REACTIVE 2739) HEPATITIS C ANTIBODY (test code NON-REACTIVE = 4675) INTERPRETATION HEPATITIS A: (NOTE) (test code = 2552) INTERPRETATION HEPATITIS B: (NOTE) (test code = 87234) INTERPRETATION HEPATITIS C: (NOTE) (test code = 63447) ACUTE HEPATITIS [id number] 00:00:00 Test Item Value Reference Range Interpretation Comments HEPATITIS A IgM (test code = NON-REACTIVE 33414) HEPATITIS B CORE IgM (test code NON-REACTIVE = 4644) HEPATITIS B SURF AG (test code = NON-REACTIVE 2739) HEPATITIS C ANTIBODY (test code NON-REACTIVE = 4675) INTERPRETATION HEPATITIS A: (NOTE) (test code = 2552) INTERPRETATION HEPATITIS B: (NOTE) (test code = 09952) INTERPRETATION HEPATITIS C: (NOTE) (test code = 19599) CT/NG, TMA, [id number] 00:00:00 Test Item Value Reference Range Interpretation Comments GONORRHEA, NAAT (test code = 75987) NEGATIVE CHLAMYDIA, NAAT (test code = 99473) NEGATIVE CT/NG, TMA, [id number] 00:00:00 Test Item Value Reference Range Interpretation Comments GONORRHEA, NAAT (test code = 65009) NEGATIVE CHLAMYDIA, NAAT (test code = 18079) NEGATIVE VAGINAL PATHOGENS DNA [id number] 00:00:00 Test Item Value Reference Range Interpretation Comments RAMESH SPECIES (test code = ) NEGATIVE G. VAGINALIS (test code = ) NEGATIVE T. VAGINALIS (test code = ) POSITIVE VAGINAL PATHOGENS DNA [id number] 00:00:00 Test Item Value Reference Range Interpretation Comments RAMESH SPECIES (test code = ) NEGATIVE G. VAGINALIS (test code = ) NEGATIVE T. VAGINALIS (test code = ) POSITIVE CULTURE, [id number] 00:00:00 Test Item Value Reference Range Interpretation Comments CULTURE, URINE (test SPECIMEN NUMBER: code = 85665) [id number] CULTURE, [id number] 00:00:00 Test Item Value Reference Range Interpretation Comments CULTURE, URINE (test SPECIMEN NUMBER: code = 58063) [id number] CULTURE, [id number] 00:00:00 Test Item Value Reference Range Interpretation Comments CULTURE, URINE (test SPECIMEN NUMBER: code = 65989) [id number] CULTURE, [id number] 00:00:00 Test Item Value Reference Range Interpretation Comments CULTURE, URINE (test SPECIMEN NUMBER: code = 86839) [id number] CULTURE, [id number] 00:00:00 Test Item Value Reference Range Interpretation Comments CULTURE, URINE (test SPECIMEN NUMBER: code = 69044) [id number] CULTURE, [id number] 00:00:00 Test Item Value Reference Range Interpretation Comments CULTURE, URINE (test SPECIMEN NUMBER: code = 87388) [id number] CULTURE, [id number] 11:18:54SPECIMEN NUMBER: [id number] CULTURE, URINE SPECIMEN NUMBER: [id number] SPECIMEN COMMENT: URINE SOURCE:URINE REPORT STATUS: FINAL FINAL REPORT: 07/16/2022 10-50,000 CFU/ML UROGENITAL OLEKSANDR PRESENT NO COMM ON PATHOGENSCULTURE, [id number] 00:00:00 Test Item Value Reference Range Interpretation Comments CULTURE, URINE (test SPECIMEN NUMBER: code = 33752) [id number] CULTURE, [id number] 00:00:00 Test Item Value Reference Range Interpretation Comments CULTURE, URINE (test SPECIMEN NUMBER: code = 38915) [id number] CULTURE, [id number] 00:00:00 Test Item Value Reference Range Interpretation Comments CULTURE, URINE (test SPECIMEN NUMBER: code = 84638) [id number] CULTURE, [id number] 00:00:00 Test Item Value Reference Range Interpretation Comments CULTURE, URINE (test SPECIMEN NUMBER: code = 67510) [id number] CULTURE, [id number] 00:00:00 Test Item Value Reference Range Interpretation Comments CULTURE, URINE (test SPECIMEN NUMBER: code = 38665) [id number] CULTURE, [id number] 00:00:00 Test Item Value Reference Range Interpretation Comments CULTURE, URINE (test SPECIMEN NUMBER: code = 45877) [id number] CULTURE, [id number] 00:00:00 Test Item Value Reference Range Interpretation Comments CULTURE, URINE (test SPECIMEN NUMBER: code = 59334) [id number] CULTURE, [id number] 00:00:00 Test Item Value Reference Range Interpretation Comments CULTURE, URINE (test SPECIMEN NUMBER: code = 78519) [id number] CT/NG, NAAT, [id number] 19:32:40 Test Item Value Reference Range Interpretation Comments GONORRHEA, NAAT NEGATIVE NEGATIVE IMPORTA NT NOTICE: SEE (test code = [place] [address]) [email or web address] Note: Assay methodology is nucleic acid amplification b y associate professor of library science m ediated amplification ( TMA) utilizing the A ptima Combo 2 Assay. CHLAMYDIA, NAAT NEGATIVE NEGATIVE IMPORTA NT NOTICE: SEE (test code = [place] [address]) [email or web address] Note: Assay methodology is nucleic acid amplification b y associate professor of library science m ediated amplification ( TMA) utilizing the A ptima Combo 2 Assay. VAGINAL PATHOGENS DNA [id number] 15:57:03 Test Item Value Reference Range Interpretation Comments RAMESH SPECIES (test NEGATIVE NEGATIVE code = 35387) G. VAGINALIS (test POSITIVE NEGATIVE A code = ) T. VAGINALIS (test POSITIVE NEGATIVE A UNLESS O THERWISE code = ) INDICATED, ALL TESTING PERFORMED [facility] [address] [place] [address] 4 LABORATORY DIRE CTOR: ODILON MARIANO M.D. CLIA NUMBER [id number] [facility] [place] [id number] 04:58:02 Test Item Value Reference Range Interpretation Comments RPR RESULT (test code = NON-REACTIVE NON-REACTIVE 3501) RPR TITER (test code = 3500) NOT INDIC. TITER NOT INDIC. HIV 1/2 4TH GEN, RFLX [id number] 03:09:22 Test Item Value Reference Range Interpretation Comments HIV 1/2 4TH GEN, RFLX CONF (test NON-REACTIVE NON-REACTIVE code = 3514) HEPATITIS PANEL, [id number] 03:09:22 Test Item Value Reference Range Interpretation Comments HEPATITIS A IgM (test NON-REACTIVE NON-REACTIVE code = 75758) HEPATITIS B CORE IgM NON-REACTIVE NON-REACTIVE (test code = 4644) HEPATITIS B SURF AG NON-REACTIVE NON-REACTIVE (test code = 2739) HEPATITIS C ANTIBODY NON-REACTIVE NON-REACTIVE (test code = 4675) INTERPRETATION (NOTE) Hepatitis A HEPATITIS A: (test code sero logy shows no = 2552) evidence of acu te hepatitis A. INTERPRETATION (NOTE) Hepatitis B HEPATITIS B: (test code sero logy shows no = 25572) evidence of acu te hepatitis B and no indication of exposure to hepatitis B vir us in the previous daisy eight months. INTERPRETATION (NOTE) Hepatitis C HEPATITIS C: (test code sero logy shows no = 09818) evidence of exposure to hepatitisC viru s at this time. I t can take up to 12 months after exposure tothe hepatitis C vir us for antibodies to become detectab le in the blood in certain patient s. HIV 1/2 4TH GEN, RFLX [id number] 00:00:00 Test Item Value Reference Range Interpretation Comments HIV 1/2 4TH GEN, RFLX CONF (test NON-REACTIVE code = 3514) HIV 1/2 4TH GEN, RFLX [id number] 00:00:00 Test Item Value Reference Range Interpretation Comments HIV 1/2 4TH GEN, RFLX CONF (test NON-REACTIVE code = 3514) CT/NG, TMA, [id number] 00:00:00 Test Item Value Reference Range Interpretation Comments GONORRHEA, NAAT (test code = 78312) NEGATIVE CHLAMYDIA, NAAT (test code = 55974) NEGATIVE CT/NG, TMA, [id number] 00:00:00 Test Item Value Reference Range Interpretation Comments GONORRHEA, NAAT (test code = 82587) NEGATIVE CHLAMYDIA, NAAT (test code = 17010) NEGATIVE [id number] 00:00:00 Test Item Value Reference Range Interpretation Comments RPR RESULT (test code = NON-REACTIVE 3501) RPR TITER (test code = 3500) NOT INDIC. TITER [id number] 00:00:00 Test Item Value Reference Range Interpretation Comments RPR RESULT (test code = NON-REACTIVE 3501) RPR TITER (test code = 3500) NOT INDIC. TITER [id number] 00:00:00 Test Item Value Reference Range Interpretation Comments RPR RESULT (test code = NON-REACTIVE 3501) RPR TITER (test code = 3500) NOT INDIC. TITER ACUTE HEPATITIS [id number] 00:00:00 Test Item Value Reference Range Interpretation Comments HEPATITIS A IgM (test code = NON-REACTIVE 02378) HEPATITIS B CORE IgM (test code NON-REACTIVE = 4644) HEPATITIS B SURF AG (test code = NON-REACTIVE 2739) HEPATITIS C ANTIBODY (test code NON-REACTIVE = 4675) INTERPRETATION HEPATITIS A: (NOTE) (test code = 2552) INTERPRETATION HEPATITIS B: (NOTE) (test code = 32993) INTERPRETATION HEPATITIS C: (NOTE) (test code = 51023) ACUTE HEPATITIS [id number] 00:00:00 Test Item Value Reference Range Interpretation Comments HEPATITIS A IgM (test code = NON-REACTIVE 97772) HEPATITIS B CORE IgM (test code NON-REACTIVE = 4644) HEPATITIS B SURF AG (test code = NON-REACTIVE 2739) HEPATITIS C ANTIBODY (test code NON-REACTIVE = 4675) INTERPRETATION HEPATITIS A: (NOTE) (test code = 2552) INTERPRETATION HEPATITIS B: (NOTE) (test code = 36919) INTERPRETATION HEPATITIS C: (NOTE) (test code = 71661) VAGINAL PATHOGENS DNA [id number] 00:00:00 Test Item Value Reference Range Interpretation Comments RAMESH SPECIES (test code = 09810) NEGATIVE G. VAGINALIS (test code = ) POSITIVE T. VAGINALIS (test code = ) POSITIVE VAGINAL PATHOGENS DNA [id number] 00:00:00 Test Item Value Reference Range Interpretation Comments RAMESH SPECIES (test code = ) NEGATIVE G. VAGINALIS (test code = ) POSITIVE T. VAGINALIS (test code = ) POSITIVE HIV 1/2 4TH GEN, RFLX [id number] 00:00:00 Test Item Value Reference Range Interpretation Comments HIV 1/2 4TH GEN, RFLX CONF (test NON-REACTIVE code = 3514) HIV 1/2 4TH GEN, RFLX [id number] 00:00:00 Test Item Value Reference Range Interpretation Comments HIV 1/2 4TH GEN, RFLX CONF (test NON-REACTIVE code = 3514) CT/NG, TMA, [id number] 00:00:00 Test Item Value Reference Range Interpretation Comments GONORRHEA, NAAT (test code = 91407) NEGATIVE CHLAMYDIA, NAAT (test code = 42750) NEGATIVE CT/NG, TMA, [id number] 00:00:00 Test Item Value Reference Range Interpretation Comments GONORRHEA, NAAT (test code = 25222) NEGATIVE CHLAMYDIA, NAAT (test code = 43360) NEGATIVE [id number] 00:00:00 Test Item Value Reference Range Interpretation Comments RPR RESULT (test code = NON-REACTIVE 3501) RPR TITER (test code = 3500) NOT INDIC. TITER [id number] 00:00:00 Test Item Value Reference Range Interpretation Comments RPR RESULT (test code = NON-REACTIVE 3501) RPR TITER (test code = 3500) NOT INDIC. TITER [id number] 00:00:00 Test Item Value Reference Range Interpretation Comments RPR RESULT (test code = NON-REACTIVE 3501) RPR TITER (test code = 3500) NOT INDIC. TITER ACUTE HEPATITIS [id number] 00:00:00 Test Item Value Reference Range Interpretation Comments HEPATITIS A IgM (test code = NON-REACTIVE 06299) HEPATITIS B CORE IgM (test code NON-REACTIVE = 7044) HEPATITIS B SURF AG (test code = NON-REACTIVE 0009) HEPATITIS C ANTIBODY (test code NON-REACTIVE = 4924) INTERPRETATION HEPATITIS A: (NOTE) (test code = 2552) INTERPRETATION HEPATITIS B: (NOTE) (test code = 09388) INTERPRETATION HEPATITIS C: (NOTE) (test code = 59473) ACUTE HEPATITIS [id number] 00:00:00 Test Item Value Reference Range Interpretation Comments HEPATITIS A IgM (test code = NON-REACTIVE 71052) HEPATITIS B CORE IgM (test code NON-REACTIVE = 4644) HEPATITIS B SURF AG (test code = NON-REACTIVE 5799) HEPATITIS C ANTIBODY (test code NON-REACTIVE = 4675) INTERPRETATION HEPATITIS A: (NOTE) (test code = 2552) INTERPRETATION HEPATITIS B: (NOTE) (test code = 92555) INTERPRETATION HEPATITIS C: (NOTE) (test code = 05172) VAGINAL PATHOGENS DNA [id number] 00:00:00 Test Item Value Reference Range Interpretation Comments RAMESH SPECIES (test code = ) NEGATIVE G. VAGINALIS (test code = 26460) POSITIVE T. VAGINALIS (test code = 94692) POSITIVE VAGINAL PATHOGENS DNA [id number] 00:00:00 Test Item Value Reference Range Interpretation Comments RAMESH SPECIES (test code = ) NEGATIVE G. VAGINALIS (test code = ) POSITIVE T. VAGINALIS (test code = 34808) POSITIVE HIV 1/2 4TH GEN, RFLX [id number] 00:00:00 Test Item Value Reference Range Interpretation Comments HIV 1/2 4TH GEN, RFLX CONF (test NON-REACTIVE code = 3514) HIV 1/2 4TH GEN, RFLX [id number] 00:00:00 Test Item Value Reference Range Interpretation Comments HIV 1/2 4TH GEN, RFLX CONF (test NON-REACTIVE code = 3514) CT/NG, TMA, [id number] 00:00:00 Test Item Value Reference Range Interpretation Comments GONORRHEA, NAAT (test code = 73813) NEGATIVE CHLAMYDIA, NAAT (test code = 97059) NEGATIVE CT/NG, TMA, [id number] 00:00:00 Test Item Value Reference Range Interpretation Comments GONORRHEA, NAAT (test code = 41238) NEGATIVE CHLAMYDIA, NAAT (test code = 35141) NEGATIVE [id number] 00:00:00 Test Item Value Reference Range Interpretation Comments RPR RESULT (test code = NON-REACTIVE 3501) RPR TITER (test code = 3500) NOT INDIC. TITER [id number] 00:00:00 Test Item Value Reference Range Interpretation Comments RPR RESULT (test code = NON-REACTIVE 3501) RPR TITER (test code = 3500) NOT INDIC. TITER [id number] 00:00:00 Test Item Value Reference Range Interpretation Comments RPR RESULT (test code = NON-REACTIVE 3501) RPR TITER (test code = 3500) NOT INDIC. TITER ACUTE HEPATITIS [id number] 00:00:00 Test Item Value Reference Range Interpretation Comments HEPATITIS A IgM (test code = NON-REACTIVE 59273) HEPATITIS B CORE IgM (test code NON-REACTIVE = 4644) HEPATITIS B SURF AG (test code = NON-REACTIVE 2739) HEPATITIS C ANTIBODY (test code NON-REACTIVE = 4675) INTERPRETATION HEPATITIS A: (NOTE) (test code = 2552) INTERPRETATION HEPATITIS B: (NOTE) (test code = 65574) INTERPRETATION HEPATITIS C: (NOTE) (test code = 08382) ACUTE HEPATITIS [id number] 00:00:00 Test Item Value Reference Range Interpretation Comments HEPATITIS A IgM (test code = NON-REACTIVE 66313) HEPATITIS B CORE IgM (test code NON-REACTIVE = 4644) HEPATITIS B SURF AG (test code = NON-REACTIVE 2739) HEPATITIS C ANTIBODY (test code NON-REACTIVE = 4675) INTERPRETATION HEPATITIS A: (NOTE) (test code = 2552) INTERPRETATION HEPATITIS B: (NOTE) (test code = 24112) INTERPRETATION HEPATITIS C: (NOTE) (test code = 74649) VAGINAL PATHOGENS DNA [id number] 00:00:00 Test Item Value Reference Range Interpretation Comments RAMESH SPECIES (test code = ) NEGATIVE G. VAGINALIS (test code = 24391) POSITIVE T. VAGINALIS (test code = 20619) POSITIVE VAGINAL PATHOGENS DNA [id number] 00:00:00 Test Item Value Reference Range Interpretation Comments RAMESH SPECIES (test code = 63215) NEGATIVE G. VAGINALIS (test code = 19167) POSITIVE T. VAGINALIS (test code = 28366) POSITIVE HIV 1/2 4TH GEN, RFLX [id number] 00:00:00 Test Item Value Reference Range Interpretation Comments HIV 1/2 4TH GEN, RFLX CONF (test NON-REACTIVE code = 3514) HIV 1/2 4TH GEN, RFLX [id number] 00:00:00 Test Item Value Reference Range Interpretation Comments HIV 1/2 4TH GEN, RFLX CONF (test NON-REACTIVE code = 3514) CT/NG, TMA, [id number] 00:00:00 Test Item Value Reference Range Interpretation Comments GONORRHEA, NAAT (test code = 44623) NEGATIVE CHLAMYDIA, NAAT (test code = 67497) NEGATIVE CT/NG, TMA, [id number] 00:00:00 Test Item Value Reference Range Interpretation Comments GONORRHEA, NAAT (test code = 54139) NEGATIVE CHLAMYDIA, NAAT (test code = 03305) NEGATIVE [id number] 00:00:00 Test Item Value Reference Range Interpretation Comments RPR RESULT (test code = NON-REACTIVE 3501) RPR TITER (test code = 3500) NOT INDIC. TITER [id number] 00:00:00 Test Item Value Reference Range Interpretation Comments RPR RESULT (test code = NON-REACTIVE 3501) RPR TITER (test code = 3500) NOT INDIC. TITER [id number] 00:00:00 Test Item Value Reference Range Interpretation Comments RPR RESULT (test code = NON-REACTIVE 3501) RPR TITER (test code = 3500) NOT INDIC. TITER ACUTE HEPATITIS [id number] 00:00:00 Test Item Value Reference Range Interpretation Comments HEPATITIS A IgM (test code = NON-REACTIVE 28337) HEPATITIS B CORE IgM (test code NON-REACTIVE = 4644) HEPATITIS B SURF AG (test code = NON-REACTIVE 2739) HEPATITIS C ANTIBODY (test code NON-REACTIVE = 4675) INTERPRETATION HEPATITIS A: (NOTE) (test code = 2552) INTERPRETATION HEPATITIS B: (NOTE) (test code = 26461) INTERPRETATION HEPATITIS C: (NOTE) (test code = 74504) ACUTE HEPATITIS [id number] 00:00:00 Test Item Value Reference Range Interpretation Comments HEPATITIS A IgM (test code = NON-REACTIVE 43614) HEPATITIS B CORE IgM (test code NON-REACTIVE = 4644) HEPATITIS B SURF AG (test code = NON-REACTIVE 2739) HEPATITIS C ANTIBODY (test code NON-REACTIVE = 4675) INTERPRETATION HEPATITIS A: (NOTE) (test code = 2552) INTERPRETATION HEPATITIS B: (NOTE) (test code = 16589) INTERPRETATION HEPATITIS C: (NOTE) (test code = 62244) VAGINAL PATHOGENS DNA [id number] 00:00:00 Test Item Value Reference Range Interpretation Comments RAMESH SPECIES (test code = ) NEGATIVE G. VAGINALIS (test code = ) POSITIVE T. VAGINALIS (test code = ) POSITIVE VAGINAL PATHOGENS DNA [id number] 00:00:00 Test Item Value Reference Range Interpretation Comments RAMESH SPECIES (test code = ) NEGATIVE G. VAGINALIS (test code = ) POSITIVE T. VAGINALIS (test code = 29872) POSITIVE TSH, THIRD [id number] 06:51:11 Test Item Value Reference Range Interpretation Comments TSH, THIRD GENERATION (test code 0.937 UIU/ML 0.400-4.100 = 2821) HEMOGLOBIN [id number] 05:51:57 Test Item Value Reference Range Interpretation Comments HEMOGLOBIN A1c (test code = 71805) 5.6 % 4.2-5.6 COMPREHENSIVE METABOLIC [id number] 04:57:05 Test Item Value Reference Range Interpretation Comments GLUCOSE (test code = 105 MG/DL 70-99 H 2216) BUN (test code = 12 MG/DL 6-20 2207) CREATININE (test 0.70 MG/DL 0.60-1.30 code = 2214) eGFR (2020 CKD-EPI) 111 >60 (test code = 42317) ML/MIN/1.73 CALC BUN/CREAT (test 17 RATIO 6-28 code = 223) SODIUM (test code = 138 MEQ/L 327-432 8152) POTASSIUM (test code 4.1 MEQ/L 3.5-5.4 = 2227) CHLORIDE (test code 102 MEQ/L 95-107 = 2215) CARBON DIOXIDE (test 24 MEQ/L 19-31 code [...] PHOSPHATASE 71 U/L 40-113 (test code = 2203) AST (test code = 11 U/L 9-40 2217) ALT (test code = 17 U/L 5-40 2218) LIPID [id number] 04:57:05 Test Item Value Reference Range Interpretation [...] MOREINFORMATION , SEE CLIENT ANNOUNCE MENT AT [email or web address] RISK RATIO LDL/HDL 2.26 RATIO <3.22 (test code = 2237) CBC W/AUTO DIFF WITH [id number] 03:43:22 Test Item Value Reference Range Interpretation [...] message] code = 1065) WBC'S The system iCurrent generated this result transmitted ref erence range: [...] 0.00-0.11 UNLESS O THERWISE (test code = 99428) INDICATE D, ALL TESTING PERFORM [facility], [facility]. [address] [place], [place] [id number] [place] [address] DIRECTOR: ODILON SUMMERS M.D. CLIA NUMBER [id number] CAP ACCREDITATION N O. [id number] COMPREHENSIVE METABOLIC [id number] 00:00:00 Test Item Value Reference Range Interpretation Comments GLUCOSE (test code = 2217) 105 MG/DL BUN (test code = 2208) 12 MG/DL CREATININE (test code = 2214) 0.70 MG/DL eGFR (2020 CKD-EPI) (test 111 ML/MIN/1.73 code = 60509) CALC BUN/CREAT (test code = 17 RATIO 2235) SODIUM (test code = 2231) 138 MEQ/L POTASSIUM (test code = 2228) 4.1 MEQ/L CHLORIDE (test code = 2215) 102 MEQ/L CARBON DIOXIDE (test code = 24 MEQ/L 220) CALCIUM (test code = 2209) 9.9 MG/DL PROTEIN, TOTAL (test code = 7.3 G/DL 222) ALBUMIN (test code = 2201) 4.8 G/DL CALC GLOBULIN (test code = 2.5 G/DL 2240) CALC A/G RATIO (test code = 1.9 RATIO 2234) BILIRUBIN, TOTAL (test code = 0.7 MG/DL 2206) ALKALINE PHOSPHATASE (test 71 U/L code = 2204) AST (test code = 2218) 11 U/L ALT (test code = 2219) 17 U/L COMPREHENSIVE METABOLIC [id number] 00:00:00 Test Item Value Reference Range Interpretation Comments GLUCOSE (test code = 2217) 105 MG/DL BUN (test code = 2208) 12 MG/DL CREATININE (test code = 2214) 0.70 MG/DL eGFR (2020 CKD-EPI) (test 111 ML/MIN/1.73 code = 19833) CALC BUN/CREAT (test code = 17 RATIO [...] BILIRUBIN, TOTAL (test code = 0.7 MG/DL 7) ALKALINE PHOSPHATASE (test 71 U/L code = 2204) AST (test code = 2218) 11 U/L ALT (test code = 2219) 17 U/L LIPID [id number] 00:00:00 Test Item Value Reference Range Interpretation Comments CHOLESTEROL (test code = 2210) 249 MG/DL TRIGLYCERIDES (test code = 2232) 97 MG/DL HDL CHOLESTEROL (test code = 2220) 70 MG/DL CALC LDL CHOL (test code = 2237) 158 MG/DL RISK RATIO LDL/HDL (test code = 2.26 RATIO 2238) LIPID [id number] 00:00:00 Test Item Value Reference Range Interpretation Comments CHOLESTEROL (test code = 2210) 249 MG/DL TRIGLYCERIDES (test code = 2232) 97 MG/DL HDL CHOLESTEROL (test code = 2220) 70 MG/DL CALC LDL CHOL (test code = 2237) 158 MG/DL RISK RATIO LDL/HDL (test code = 2.26 RATIO 2238) HEMOGLOBIN [id number] 00:00:00 Test Item Value Reference Range Interpretation Comments HEMOGLOBIN A1c (test code = 69371) 5.6 % HEMOGLOBIN [id number] 00:00:00 Test Item Value Reference Range Interpretation Comments HEMOGLOBIN A1c (test code = 70754) 5.6 % HEMOGLOBIN [id number] 00:00:00 Test Item Value Reference Range Interpretation Comments HEMOGLOBIN A1c (test code = 77133) 5.6 % TSH, THIRD [id number] 00:00:00 Test Item Value Reference Range Interpretation Comments TSH, THIRD GENERATION (test code 0.937 UIU/ML = 2821) TSH, THIRD [id number] 00:00:00 Test Item Value Reference Range Interpretation Comments TSH, THIRD GENERATION (test code 0.937 UIU/ML = 2821) TSH, THIRD [id number] 00:00:00 Test Item Value Reference Range Interpretation Comments TSH, THIRD GENERATION (test code 0.937 UIU/ML = 2821) CBC W/AUTO [id number] 00:00:00 Test Item Value Reference Range Interpretation [...] NUCLEATED RBCS (test code = 0.00 K/UL 76417) CBC W/AUTO [id number] 00:00:00 Test Item Value Reference Range Interpretation [...] NUCLEATED RBCS (test code = 0.00 K/UL 01077) CBC W/AUTO [id number] 00:00:00 Test Item Value Reference Range Interpretation [...] NUCLEATED RBCS (test code = 0.00 K/UL 11320) COMPREHENSIVE METABOLIC [id number] 00:00:00 Test Item Value Reference Range Interpretation Comments GLUCOSE (test code = 2217) 105 MG/DL BUN (test code = 2208) 12 MG/DL CREATININE (test code = 2214) 0.70 MG/DL eGFR (2020 CKD-EPI) (test 111 ML/MIN/1.73 code = 18335) CALC BUN/CREAT (test code = 17 RATIO [...] code = 2219) 17 U/L COMPREHENSIVE METABOLIC [id number] 00:00:00 Test Item Value Reference Range Interpretation Comments GLUCOSE (test code = 2217) 105 MG/DL BUN (test code = 2208) 12 MG/DL CREATININE (test code = 2214) 0.70 MG/DL eGFR (2020 CKD-EPI) (test 111 ML/MIN/1.73 code = 27872) CALC BUN/CREAT (test code = 17 RATIO [...] (test code = 2219) 17 U/L LIPID [id number] 00:00:00 Test Item Value Reference Range Interpretation Comments CHOLESTEROL (test code = 2210) 249 MG/DL TRIGLYCERIDES (test code = 2232) 97 MG/DL HDL CHOLESTEROL (test code = 2220) 70 MG/DL CALC LDL CHOL (test code = 2237) 158 MG/DL RISK RATIO LDL/HDL (test code = 2.26 RATIO 2238) LIPID [id number] 00:00:00 Test Item Value Reference Range Interpretation Comments CHOLESTEROL (test code = 2210) 249 MG/DL TRIGLYCERIDES (test code = 2232) 97 MG/DL HDL CHOLESTEROL (test code = 2220) 70 MG/DL CALC LDL CHOL (test code = 2237) 158 MG/DL RISK RATIO LDL/HDL (test code = 2.26 RATIO 2238) HEMOGLOBIN [id number] 00:00:00 Test Item Value Reference Range Interpretation Comments HEMOGLOBIN A1c (test code = 51380) 5.6 % HEMOGLOBIN [id number] 00:00:00 Test Item Value Reference Range Interpretation Comments HEMOGLOBIN A1c (test code = 95660) 5.6 % HEMOGLOBIN [id number] 00:00:00 Test Item Value Reference Range Interpretation Comments HEMOGLOBIN A1c (test code = 87643) 5.6 % TSH, THIRD [id number] 00:00:00 Test Item Value Reference Range Interpretation Comments TSH, THIRD GENERATION (test code 0.937 UIU/ML = 2821) TSH, THIRD [id number] 00:00:00 Test Item Value Reference Range Interpretation Comments TSH, THIRD GENERATION (test code 0.937 UIU/ML = 2821) TSH, THIRD [id number] 00:00:00 Test Item Value Reference Range Interpretation Comments TSH, THIRD GENERATION (test code 0.937 UIU/ML = 2821) CBC W/AUTO [id number] 00:00:00 Test Item Value Reference Range Interpretation [...] NUCLEATED RBCS (test code = 0.00 K/UL 48030) CBC W/AUTO [id number] 00:00:00 Test Item Value Reference Range Interpretation [...] NUCLEATED RBCS (test code = 0.00 K/UL 60879) CBC W/AUTO [id number] 00:00:00 Test Item Value Reference Range Interpretation [...] NUCLEATED RBCS (test code = 0.00 K/UL 30826) COMPREHENSIVE METABOLIC [id number] 00:00:00 Test Item Value Reference Range Interpretation Comments GLUCOSE (test code = 2217) 105 MG/DL BUN (test code = 2208) 12 MG/DL CREATININE (test code = 2214) 0.70 MG/DL eGFR (2020 CKD-EPI) (test 111 ML/MIN/1.73 code = 20734) CALC BUN/CREAT (test code = 17 RATIO [...] code = 2219) 17 U/L COMPREHENSIVE METABOLIC [id number] 00:00:00 Test Item Value Reference Range Interpretation Comments GLUCOSE (test code = 2217) 105 MG/DL BUN (test code = 2208) 12 MG/DL CREATININE (test code = 2214) 0.70 MG/DL eGFR (2020 CKD-EPI) (test 111 ML/MIN/1.73 code = 32814) CALC BUN/CREAT (test code = 17 RATIO [...] (test code = 2219) 17 U/L LIPID [id number] 00:00:00 Test Item Value Reference Range Interpretation Comments CHOLESTEROL (test code = 2210) 249 MG/DL TRIGLYCERIDES (test code = 2232) 97 MG/DL HDL CHOLESTEROL (test code = 2220) 70 MG/DL CALC LDL CHOL (test code = 2237) 158 MG/DL RISK RATIO LDL/HDL (test code = 2.26 RATIO 2238) LIPID [id number] 00:00:00 Test Item Value Reference Range Interpretation Comments CHOLESTEROL (test code = 2210) 249 MG/DL TRIGLYCERIDES (test code = 2232) 97 MG/DL HDL CHOLESTEROL (test code = 2220) 70 MG/DL CALC LDL CHOL (test code = 2237) 158 MG/DL RISK RATIO LDL/HDL (test code = 2.26 RATIO 2238) HEMOGLOBIN [id number] 00:00:00 Test Item Value Reference Range Interpretation Comments HEMOGLOBIN A1c (test code = 15097) 5.6 % HEMOGLOBIN [id number] 00:00:00 Test Item Value Reference Range Interpretation Comments HEMOGLOBIN A1c (test code = 65632) 5.6 % HEMOGLOBIN [id number] 00:00:00 Test Item Value Reference Range Interpretation Comments HEMOGLOBIN A1c (test code = 78038) 5.6 % TSH, THIRD [id number] 00:00:00 Test Item Value Reference Range Interpretation Comments TSH, THIRD GENERATION (test code 0.937 UIU/ML = 2821) TSH, THIRD [id number] 00:00:00 Test Item Value Reference Range Interpretation Comments TSH, THIRD GENERATION (test code 0.937 UIU/ML = 2821) TSH, THIRD [id number] 00:00:00 Test Item Value Reference Range Interpretation Comments TSH, THIRD GENERATION (test code 0.937 UIU/ML = 2821) CBC W/AUTO [id number] 00:00:00 Test Item Value Reference Range Interpretation [...] NUCLEATED RBCS (test code = 0.00 K/UL 86078) CBC W/AUTO [id number] 00:00:00 Test Item Value Reference Range Interpretation [...] NUCLEATED RBCS (test code = 0.00 K/UL 65209) CBC W/AUTO [id number] 00:00:00 Test Item Value Reference Range Interpretation [...] NUCLEATED RBCS (test code = 0.00 K/UL 96199) COMPREHENSIVE METABOLIC [id number] 00:00:00 Test Item Value Reference Range Interpretation Comments GLUCOSE (test code = 2217) 105 MG/DL BUN (test code = 2208) 12 MG/DL CREATININE (test code = 2214) 0.70 MG/DL eGFR (2020 CKD-EPI) (test 111 ML/MIN/1.73 code = 13042) CALC BUN/CREAT (test code = 17 RATIO [...] code = 2219) 17 U/L COMPREHENSIVE METABOLIC [id number] 00:00:00 Test Item Value Reference Range Interpretation Comments GLUCOSE (test code = 2217) 105 MG/DL BUN (test code = 2208) 12 MG/DL CREATININE (test code = 2214) 0.70 MG/DL eGFR (2020 CKD-EPI) (test 111 ML/MIN/1.73 code = 88890) CALC BUN/CREAT (test code = 17 RATIO [...] (test code = 2219) 17 U/L LIPID [id number] 00:00:00 Test Item Value Reference Range Interpretation Comments CHOLESTEROL (test code = 2210) 249 MG/DL TRIGLYCERIDES (test code = 2232) 97 MG/DL HDL CHOLESTEROL (test code = 2220) 70 MG/DL CALC LDL CHOL (test code = 2237) 158 MG/DL RISK RATIO LDL/HDL (test code = 2.26 RATIO 2238) LIPID [id number] 00:00:00 Test Item Value Reference Range Interpretation Comments CHOLESTEROL (test code = 2210) 249 MG/DL TRIGLYCERIDES (test code = 2232) 97 MG/DL HDL CHOLESTEROL (test code = 2220) 70 MG/DL CALC LDL CHOL (test code = 2237) 158 MG/DL RISK RATIO LDL/HDL (test code = 2.26 RATIO 2238) HEMOGLOBIN [id number] 00:00:00 Test Item Value Reference Range Interpretation Comments HEMOGLOBIN A1c (test code = 59120) 5.6 % HEMOGLOBIN [id number] 00:00:00 Test Item Value Reference Range Interpretation Comments HEMOGLOBIN A1c (test code = 38280) 5.6 % HEMOGLOBIN [id number] 00:00:00 Test Item Value Reference Range Interpretation Comments HEMOGLOBIN A1c (test code = 87464) 5.6 % TSH, THIRD [id number] 00:00:00 Test Item Value Reference Range Interpretation Comments TSH, THIRD GENERATION (test code 0.937 UIU/ML = 2821) TSH, THIRD [id number] 00:00:00 Test Item Value Reference Range Interpretation Comments TSH, THIRD GENERATION (test code 0.937 UIU/ML = 2821) TSH, THIRD [id number] 00:00:00 Test Item Value Reference Range Interpretation Comments TSH, THIRD GENERATION (test code 0.937 UIU/ML = 2821) CBC W/AUTO [id number] 00:00:00 Test Item Value Reference Range Interpretation [...] NUCLEATED RBCS (test code = 0.00 K/UL 62298) CBC W/AUTO [id number] 00:00:00 Test Item Value Reference Range Interpretation [...] NUCLEATED RBCS (test code = 0.00 K/UL 22734) CBC W/AUTO [id number] 00:00:00 Test Item Value Reference Range Interpretation [...] NUCLEATED RBCS (test code = 0.00 K/UL 99086) COMPREHENSIVE METABOLIC [id number] 00:00:00 Test Item Value Reference Range Interpretation Comments GLUCOSE (test code = 2217) 105 MG/DL BUN (test code = 2208) 12 MG/DL CREATININE (test code = 2214) 0.70 MG/DL eGFR (2020 CKD-EPI) (test 111 ML/MIN/1.73 code = 36228) CALC BUN/CREAT (test code = 17 RATIO [...] code = 2219) 17 U/L COMPREHENSIVE METABOLIC [id number] 00:00:00 Test Item Value Reference Range Interpretation Comments GLUCOSE (test code = 2217) 105 MG/DL BUN (test code = 2208) 12 MG/DL CREATININE (test code = 2214) 0.70 MG/DL eGFR (2020 CKD-EPI) (test 111 ML/MIN/1.73 code = 73404) CALC BUN/CREAT (test code = 17 RATIO [...] (test code = 2219) 17 U/L LIPID [id number] 00:00:00 Test Item Value Reference Range Interpretation Comments CHOLESTEROL (test code = 2210) 249 MG/DL TRIGLYCERIDES (test code = 2232) 97 MG/DL HDL CHOLESTEROL (test code = 2220) 70 MG/DL CALC LDL CHOL (test code = 2237) 158 MG/DL RISK RATIO LDL/HDL (test code = 2.26 RATIO 2238) LIPID [id number] 00:00:00 Test Item Value Reference Range Interpretation Comments CHOLESTEROL (test code = 2210) 249 MG/DL TRIGLYCERIDES (test code = 2232) 97 MG/DL HDL CHOLESTEROL (test code = 2220) 70 MG/DL CALC LDL CHOL (test code = 2237) 158 MG/DL RISK RATIO LDL/HDL (test code = 2.26 RATIO 2238) HEMOGLOBIN [id number] 00:00:00 Test Item Value Reference Range Interpretation Comments HEMOGLOBIN A1c (test code = 64156) 5.6 % HEMOGLOBIN [id number] 00:00:00 Test Item Value Reference Range Interpretation Comments HEMOGLOBIN A1c (test code = 95288) 5.6 % HEMOGLOBIN [id number] 00:00:00 Test Item Value Reference Range Interpretation Comments HEMOGLOBIN A1c (test code = 55091) 5.6 % TSH, THIRD [id number] 00:00:00 Test Item Value Reference Range Interpretation Comments TSH, THIRD GENERATION (test code 0.937 UIU/ML = 2821) TSH, THIRD [id number] 00:00:00 Test Item Value Reference Range Interpretation Comments TSH, THIRD GENERATION (test code 0.937 UIU/ML = 2821) TSH, THIRD [id number] 00:00:00 Test Item Value Reference Range Interpretation Comments TSH, THIRD GENERATION (test code 0.937 UIU/ML = 2821) CBC W/AUTO [id number] 00:00:00 Test Item Value Reference Range Interpretation [...] NUCLEATED RBCS (test code = 0.00 K/UL 17812) CBC W/AUTO [id number] 00:00:00 Test Item Value Reference Range Interpretation [...] NUCLEATED RBCS (test code = 0.00 K/UL 74146) CBC W/AUTO [id number] 00:00:00 Test Item Value Reference Range Interpretation [...] NUCLEATED RBCS (test code = 0.00 K/UL 60535) COMPREHENSIVE METABOLIC [id number] 00:00:00 Test Item Value Reference Range Interpretation Comments GLUCOSE (test code = 2217) 105 MG/DL BUN (test code = 2208) 12 MG/DL CREATININE (test code = 2214) 0.70 MG/DL eGFR (2020 CKD-EPI) (test 111 ML/MIN/1.73 code = 45983) CALC BUN/CREAT (test code = 17 RATIO 2235) SODIUM (test code = 2231) 138 MEQ/L POTASSIUM (test code = 2228) 4.1 MEQ/L CHLORIDE (test code = 2215) 102 MEQ/L CARBON DIOXIDE (test code = 24 MEQ/L 2206) CALCIUM (test code = 2209) 9.9 MG/DL PROTEIN, TOTAL (test code = 7.3 G/DL 222) ALBUMIN (test code = 2201) 4.8 G/DL CALC GLOBULIN (test code = 2.5 G/DL 2240) CALC A/G RATIO (test code = 1.9 RATIO 2234) BILIRUBIN, TOTAL (test code = 0.7 MG/DL 2206) ALKALINE PHOSPHATASE (test 71 U/L code = 2204) AST (test code = 2218) 11 U/L ALT (test code = 2219) 17 U/L COMPREHENSIVE METABOLIC [id number] 00:00:00 Test Item Value Reference Range Interpretation Comments GLUCOSE (test code = 2217) 105 MG/DL BUN (test code = 2208) 12 MG/DL CREATININE (test code = 2214) 0.70 MG/DL eGFR (2020 CKD-EPI) (test 111 ML/MIN/1.73 code = 74803) CALC BUN/CREAT (test code = 17 RATIO [...] A/G RATIO (test code = 1.9 RATIO 223) BILIRUBIN, TOTAL (test code = 0.7 MG/DL 2206) ALKALINE PHOSPHATASE (test 71 U/L code = 2204) AST (test code = 2218) 11 U/L ALT (test code = 2219) 17 U/L LIPID [id number] 00:00:00 Test Item Value Reference Range Interpretation Comments CHOLESTEROL (test code = 2210) 249 MG/DL TRIGLYCERIDES (test code = 2232) 97 MG/DL HDL CHOLESTEROL (test code = 2220) 70 MG/DL CALC LDL CHOL (test code = 2237) 158 MG/DL RISK RATIO LDL/HDL (test code = 2.26 RATIO 2238) LIPID [id number] 00:00:00 Test Item Value Reference Range Interpretation Comments CHOLESTEROL (test code = 2210) 249 MG/DL TRIGLYCERIDES (test code = 2232) 97 MG/DL HDL CHOLESTEROL (test code = 2220) 70 MG/DL CALC LDL CHOL (test code = 2237) 158 MG/DL RISK RATIO LDL/HDL (test code = 2.26 RATIO 2238) HEMOGLOBIN [id number] 00:00:00 Test Item Value Reference Range Interpretation Comments HEMOGLOBIN A1c (test code = 76492) 5.6 % HEMOGLOBIN [id number] 00:00:00 Test Item Value Reference Range Interpretation Comments HEMOGLOBIN A1c (test code = 54268) 5.6 % HEMOGLOBIN [id number] 00:00:00 Test Item Value Reference Range Interpretation Comments HEMOGLOBIN A1c (test code = 26191) 5.6 % TSH, THIRD [id number] 00:00:00 Test Item Value Reference Range Interpretation Comments TSH, THIRD GENERATION (test code 0.937 UIU/ML = 2821) TSH, THIRD [id number] 00:00:00 Test Item Value Reference Range Interpretation Comments TSH, THIRD GENERATION (test code 0.937 UIU/ML = 2821) TSH, THIRD [id number] 00:00:00 Test Item Value Reference Range Interpretation Comments TSH, THIRD GENERATION (test code 0.937 UIU/ML = 2821) CBC W/AUTO [id number] 00:00:00 Test Item Value Reference Range Interpretation [...] NUCLEATED RBCS (test code = 0.00 K/UL 10970) CBC W/AUTO [id number] 00:00:00 Test Item Value Reference Range Interpretation [...] NUCLEATED RBCS (test code = 0.00 K/UL 12824) CBC W/AUTO [id number] 00:00:00 Test Item Value Reference Range Interpretation [...] NUCLEATED RBCS (test code = 0.00 K/UL 16393) CULTURE, [id number] 09:57:25SPECIMEN NUMBER: [id number] CULTURE, URINE SPECIMEN NUMBER: [id number] SPECIMEN COMMENT: URINE SOURCE:URINE REPORT STATUS: FINAL FINAL REPORT: 06/15/2022 10-50,000 CFU/ML UROGENITAL OLEKSANDR PRESENT NO COMM ON PATHOGENS UNLESS OTHERWISE INDICATED, ALL TESTING PERFORMED [facility] [address] [place] [address] REEL CUTTER: ODILON SUMMERS M.D. [place] NUMBER [id number] [facility] [place]. [id number] CULTURE, [id number] 00:00:00 Test Item Value Reference Range Interpretation Comments CULTURE, URINE (test SPECIMEN NUMBER: code = 87153) [id number] CULTURE, [id number] 00:00:00 Test Item Value Reference Range Interpretation Comments CULTURE, URINE (test SPECIMEN NUMBER: code = 01960) [id number] CULTURE, [id number] 00:00:00 Test Item Value Reference Range Interpretation Comments CULTURE, URINE (test SPECIMEN NUMBER: code = 57456) [id number] CULTURE, [id number] 00:00:00 Test Item Value Reference Range Interpretation Comments CULTURE, URINE (test SPECIMEN NUMBER: code = 82091) [id number] CULTURE, [id number] 00:00:00 Test Item Value Reference Range Interpretation Comments CULTURE, URINE (test SPECIMEN NUMBER: code = 38050) [id number] CULTURE, [id number] 00:00:00 Test Item Value Reference Range Interpretation Comments CULTURE, URINE (test SPECIMEN NUMBER: code = 49691) [id number] CULTURE, [id number] 00:00:00 Test Item Value Reference Range Interpretation Comments CULTURE, URINE (test SPECIMEN NUMBER: code = 94914) [id number] CULTURE, [id number] 00:00:00 Test Item Value Reference Range Interpretation Comments CULTURE, URINE (test SPECIMEN NUMBER: code = 24032) [id number] CULTURE, [id number] 00:00:00 Test Item Value Reference Range Interpretation Comments CULTURE, URINE (test SPECIMEN NUMBER: code = 28359) [id number] CULTURE, [id number] 00:00:00 Test Item Value Reference Range Interpretation Comments CULTURE, URINE (test SPECIMEN NUMBER: code = 95655) [id number] CULTURE, [id number] 00:00:00 Test Item Value Reference Range Interpretation Comments CULTURE, URINE (test SPECIMEN NUMBER: code = 82693) [id number] CULTURE, [id number] 00:00:00 Test Item Value Reference Range Interpretation Comments CULTURE, URINE (test SPECIMEN NUMBER: code = 34646) [id number] CULTURE, [id number] 00:00:00 Test Item Value Reference Range Interpretation Comments CULTURE, URINE (test SPECIMEN NUMBER: code = 94893) [id number] CULTURE, [id number] 00:00:00 Test Item Value Reference Range Interpretation Comments CULTURE, URINE (test SPECIMEN NUMBER: code = 15436) [id number] VAGINAL PATHOGENS DNA [id number] 08:25:39 Test Item Value Reference Range Interpretation Comments RAMESH SPECIES (test NEGATIVE NEGATIVE code = ) G. VAGINALIS (test POSITIVE NEGATIVE A code = 53532) T. VAGINALIS (test NEGATIVE NEGATIVE Analysis performed code = 89851) beyond [facility] turer designated stab ility. Correlate with clinical history and con development specialist retesting as cl inically indicated. Resu lts reviewed by the Microbiology de partment for accuracy pr ior to reporting. VAGINAL PATHOGENS DNA [id number] 00:00:00 Test Item Value Reference Range Interpretation Comments RAMESH SPECIES (test code = 64117) NEGATIVE G. VAGINALIS (test code = 26790) POSITIVE T. VAGINALIS (test code = 71196) NEGATIVE VAGINAL PATHOGENS DNA [id number] 00:00:00 Test Item Value Reference Range Interpretation Comments RAMESH SPECIES (test code = 02634) NEGATIVE G. VAGINALIS (test code = 63330) POSITIVE T. VAGINALIS (test code = 06603) NEGATIVE VAGINAL PATHOGENS DNA [id number] 00:00:00 Test Item Value Reference Range Interpretation Comments RAMESH SPECIES (test code = 65726) NEGATIVE G. VAGINALIS (test code = 77787) POSITIVE T. VAGINALIS (test code = 68928) NEGATIVE VAGINAL PATHOGENS DNA [id number] 00:00:00 Test Item Value Reference Range Interpretation Comments RAMESH SPECIES (test code = 31666) NEGATIVE G. VAGINALIS (test code = 35093) POSITIVE T. VAGINALIS (test code = 28742) NEGATIVE VAGINAL PATHOGENS DNA [id number] 00:00:00 Test Item Value Reference Range Interpretation Comments RAMESH SPECIES (test code = 80625) NEGATIVE G. VAGINALIS (test code = 46375) POSITIVE T. VAGINALIS (test code = 87152) NEGATIVE VAGINAL PATHOGENS DNA [id number] 00:00:00 Test Item Value Reference Range Interpretation Comments RAMESH SPECIES (test code = 20223) NEGATIVE G. VAGINALIS (test code = 63212) POSITIVE T. VAGINALIS (test code = 38185) NEGATIVE VAGINAL PATHOGENS DNA [id number] 00:00:00 Test Item Value Reference Range Interpretation Comments RAMESH SPECIES (test code = 98397) NEGATIVE G. VAGINALIS (test code = 27024) POSITIVE T. VAGINALIS (test code = 77982) NEGATIVE VAGINAL PATHOGENS DNA [id number] 00:00:00 Test Item Value Reference Range Interpretation Comments RAMESH SPECIES (test code = 58938) NEGATIVE G. VAGINALIS (test code = 67146) POSITIVE T. VAGINALIS (test code = 98447) NEGATIVE VAGINAL PATHOGENS DNA [id number] 00:00:00 Test Item Value Reference Range Interpretation Comments RAMESH SPECIES (test code = 59683) NEGATIVE G. VAGINALIS (test code = 41903) POSITIVE T. VAGINALIS (test code = 89837) NEGATIVE VAGINAL PATHOGENS DNA [id number] 00:00:00 Test Item Value Reference Range Interpretation Comments RAMESH SPECIES (test code = 10350) NEGATIVE G. VAGINALIS (test code = 00484) POSITIVE T. VAGINALIS (test code = 52151) NEGATIVE VAGINAL PATHOGENS DNA [id number] 00:00:00 Test Item Value Reference Range Interpretation Comments RAMESH SPECIES (test code = 29953) NEGATIVE G. VAGINALIS (test code = 15213) POSITIVE T. VAGINALIS (test code = 81991) NEGATIVE VAGINAL PATHOGENS DNA [id number] 00:00:00 Test Item Value Reference Range Interpretation Comments RAMESH SPECIES (test code = 44905) NEGATIVE G. VAGINALIS (test code = 76422) POSITIVE T. VAGINALIS (test code = 30995) NEGATIVE VAGINAL PATHOGENS DNA [id number] 00:00:00 Test Item Value Reference Range Interpretation Comments RAMESH SPECIES (test code = 96744) NEGATIVE G. VAGINALIS (test code = 64787) POSITIVE T. VAGINALIS (test code = 97908) NEGATIVE VAGINAL PATHOGENS DNA [id number] 00:00:00 Test Item Value Reference Range Interpretation Comments RAMESH SPECIES (test code = 66968) NEGATIVE G. VAGINALIS (test code = 21321) POSITIVE T. VAGINALIS (test code = 79861) NEGATIVE VAGINAL PATHOGENS DNA [id number] 00:00:00 Test Item Value Reference Range Interpretation Comments RAMESH SPECIES (test code = 34395) NEGATIVE G. VAGINALIS (test code = 95694) POSITIVE T. VAGINALIS (test code = 76684) NEGATIVE VAGINAL PATHOGENS DNA [id number] 00:00:00 Test Item Value Reference Range Interpretation Comments RAMESH SPECIES (test code = 65388) NEGATIVE G. VAGINALIS (test code = 36880) POSITIVE T. VAGINALIS (test code = 28640) NEGATIVE VAGINAL PATHOGENS DNA [id number] 00:00:00 Test Item Value Reference Range Interpretation Comments RAMESH SPECIES (test code = 85304) NEGATIVE G. VAGINALIS (test code = 84933) POSITIVE T. VAGINALIS (test code = 90764) NEGATIVE VAGINAL PATHOGENS DNA [id number] 00:00:00 Test Item Value Reference Range Interpretation Comments RAMESH SPECIES (test code = 08650) NEGATIVE G. VAGINALIS (test code = 54552) POSITIVE T. VAGINALIS (test code = 07553) NEGATIVE VAGINAL PATHOGENS DNA [id number] 00:00:00 Test Item Value Reference Range Interpretation Comments RAMESH SPECIES (test code = 63246) NEGATIVE G. VAGINALIS (test code = 40622) POSITIVE T. VAGINALIS (test code = 21695) NEGATIVE VAGINAL PATHOGENS DNA [id number] 00:00:00 Test Item Value Reference Range Interpretation Comments RAMESH SPECIES (test code = 57358) NEGATIVE G. VAGINALIS (test code = 41722) POSITIVE T. VAGINALIS (test code = ) NEGATIVE VAGINAL PATHOGENS DNA [id number] 00:00:00 Test Item Value Reference Range Interpretation Comments RAMESH SPECIES (test code = ) NEGATIVE G. VAGINALIS (test code = ) POSITIVE T. VAGINALIS (test code = ) NEGATIVE HIV 1/2 4TH GEN, RFLX [id number] 00:02:34 Test Item Value Reference Range Interpretation Comments HIV 1/2 4TH GEN, RFLX CONF (test NON-REACTIVE NON-REACTIVE code = 3514) HEPATITIS PANEL, [id number] 00:02:34 Test Item Value Reference Range Interpretation [...] HEPATITIS B: (test serology consistent code = 71446) with immunity to hepatitis Bfrom previous hepati tis B vaccination. INTERPRETATION (NOTE) Hepatitis C HEPATITIS C: (test serology shows no code = 14015) evidence of ex posure to hepatitisC v irus at this time. I t can take up to 12 m onths after exposure tothe hepatitis C vir us for antibodies to become detectab le in the blood in ce rtain patients. UNLES S OTHERWISE INDIC ATED, ALL TESTING PERFORMED [facility] [place] [address] [place] [address] [facility] DIRECTOR: Shakira FLORES NUMBER [id number] [place] [id number] HEPATITIS PROFILE (A,B,C)2022-03-22 00:00:00 Test Item Value [...] INTERPRETATION HEPATITIS B: (NOTE) (test code = 29378) INTERPRETATION HEPATITIS C: (NOTE) (test code = 95662) HEPATITIS PROFILE (A,B,C)2022-03-22 00:00:00 Test Item Value [...] INTERPRETATION HEPATITIS B: (NOTE) (test code = 06069) INTERPRETATION HEPATITIS C: (NOTE) (test code = 68241) HIV 1/2 4TH GEN, RFLX CONF [ADDED]2022-03-22 [...] INTERPRETATION HEPATITIS B: (NOTE) (test code = 89642) INTERPRETATION HEPATITIS C: (NOTE) (test code = 89643) HEPATITIS PROFILE (A,B,C)2022-03-22 00:00:00 Test Item Value [...] INTERPRETATION HEPATITIS B: (NOTE) (test code = 42040) INTERPRETATION HEPATITIS C: (NOTE) (test code = 08426) HIV 1/2 4TH GEN, RFLX CONF [ADDED]2022-03-22 [...] INTERPRETATION HEPATITIS B: (NOTE) (test code = 22752) INTERPRETATION HEPATITIS C: (NOTE) (test code = 77079) HEPATITIS PROFILE (A,B,C)2022-03-22 00:00:00 Test Item Value [...] INTERPRETATION HEPATITIS B: (NOTE) (test code = 92577) INTERPRETATION HEPATITIS C: (NOTE) (test code = 93077) HIV 1/2 4TH GEN, RFLX CONF [ADDED]2022-03-22 [...] INTERPRETATION HEPATITIS B: (NOTE) (test code = 84068) INTERPRETATION HEPATITIS C: (NOTE) (test code = 93903) HEPATITIS PROFILE (A,B,C)2022-03-22 00:00:00 Test Item Value [...] INTERPRETATION HEPATITIS B: (NOTE) (test code = 94483) INTERPRETATION HEPATITIS C: (NOTE) (test code = 56587) HIV 1/2 4TH GEN, RFLX CONF [ADDED]2022-03-22 [...] INTERPRETATION HEPATITIS B: (NOTE) (test code = 65325) INTERPRETATION HEPATITIS C: (NOTE) (test code = 75839) HEPATITIS PROFILE (A,B,C)2022-03-22 00:00:00 Test Item Value [...] INTERPRETATION HEPATITIS B: (NOTE) (test code = 58565) INTERPRETATION HEPATITIS C: (NOTE) (test code = 87378) HIV 1/2 4TH GEN, RFLX CONF [ADDED]2022-03-22 [...] INTERPRETATION HEPATITIS B: (NOTE) (test code = 42194) INTERPRETATION HEPATITIS C: (NOTE) (test code = 15388) HEPATITIS PROFILE (A,B,C)2022-03-22 00:00:00 Test Item Value [...] INTERPRETATION HEPATITIS B: (NOTE) (test code = 87565) INTERPRETATION HEPATITIS C: (NOTE) (test code = 52771) HIV 1/2 4TH GEN, RFLX CONF [ADDED]2022-03-22 [...] INTERPRETATION HEPATITIS B: (NOTE) (test code = 02147) INTERPRETATION HEPATITIS C: (NOTE) (test code = 63541) HEPATITIS PROFILE (A,B,C)2022-03-22 00:00:00 Test Item Value [...] INTERPRETATION HEPATITIS B: (NOTE) (test code = 11929) INTERPRETATION HEPATITIS C: (NOTE) (test code = 27592) HIV 1/2 4TH GEN, RFLX CONF [ADDED]2022-03-22 [...] INTERPRETATION HEPATITIS B: (NOTE) (test code = 88656) INTERPRETATION HEPATITIS C: (NOTE) (test code = 35440) HEPATITIS PROFILE (A,B,C)2022-03-22 00:00:00 Test Item Value [...] INTERPRETATION HEPATITIS B: (NOTE) (test code = 60225) INTERPRETATION HEPATITIS C: (NOTE) (test code = 17357) HIV 1/2 4TH GEN, RFLX CONF [ADDED]2022-03-22 [...] INTERPRETATION HEPATITIS B: (NOTE) (test code = 00245) INTERPRETATION HEPATITIS C: (NOTE) (test code = 89037) HIV 1/2 4TH GEN, RFLX CONF [ADDED]2022-03-22 [...] INTERPRETATION HEPATITIS B: (NOTE) (test code = 04731) INTERPRETATION HEPATITIS C: (NOTE) (test code = 99087) HEPATITIS PROFILE (A,B,C)2022-03-22 00:00:00 Test Item Value [...] INTERPRETATION HEPATITIS B: (NOTE) (test code = 59738) INTERPRETATION HEPATITIS C: (NOTE) (test code = 93422) HIV 1/2 4TH GEN, RFLX CONF [ADDED]2022-03-22 [...] INTERPRETATION HEPATITIS B: (NOTE) (test code = 97640) INTERPRETATION HEPATITIS C: (NOTE) (test code = 32732) HEPATITIS PROFILE (A,B,C)2022-03-22 00:00:00 Test Item Value [...] INTERPRETATION HEPATITIS B: (NOTE) (test code = 63200) INTERPRETATION HEPATITIS C: (NOTE) (test code = 50925) HIV 1/2 4TH GEN, RFLX CONF [ADDED]2022-03-22 00:00:00 Test Item Value Reference Range Interpretation Comments HIV 1/2 4TH GEN, RFLX CONF (test NON-REACTIVE code = 3514) HIV 1/2 4TH GEN, RFLX CONF [ADDED]2022-03-22 00:00:00 Test Item Value Reference Range Interpretation Comments HIV 1/2 4TH GEN, RFLX CONF (test NON-REACTIVE code = 3514) [id number] 22:35:53 Test Item Value Reference Range Interpretation Comments RPR RESULT (test code = NON-REACTIVE NON-REACTIVE 3501) RPR TITER (test code = 3500) NOT INDIC. TITER NOT INDIC. [id number] 00:00:00 Test Item Value Reference Range Interpretation Comments RPR RESULT (test code = NON-REACTIVE 3501) RPR TITER (test code = 3500) NOT INDIC. TITER [id number] 00:00:00 Test Item Value Reference Range Interpretation Comments RPR RESULT (test code = NON-REACTIVE 3501) RPR TITER (test code = 3500) NOT INDIC. TITER [id number] 00:00:00 Test Item Value Reference Range Interpretation Comments RPR RESULT (test code = NON-REACTIVE 3501) RPR TITER (test code = 3500) NOT INDIC. TITER [id number] 00:00:00 Test Item Value Reference Range Interpretation Comments RPR RESULT (test code = NON-REACTIVE 3501) RPR TITER (test code = 3500) NOT INDIC. TITER [id number] 00:00:00 Test Item Value Reference Range Interpretation Comments RPR RESULT (test code = NON-REACTIVE 3501) RPR TITER (test code = 3500) NOT INDIC. TITER [id number] 00:00:00 Test Item Value Reference Range Interpretation Comments RPR RESULT (test code = NON-REACTIVE 3501) RPR TITER (test code = 3500) NOT INDIC. TITER [id number] 00:00:00 Test Item Value Reference Range Interpretation Comments RPR RESULT (test code = NON-REACTIVE 3501) RPR TITER (test code = 3500) NOT INDIC. TITER [id number] 00:00:00 Test Item Value Reference Range Interpretation Comments RPR RESULT (test code = NON-REACTIVE 3501) RPR TITER (test code = 3500) NOT INDIC. TITER [id number] 00:00:00 Test Item Value Reference Range Interpretation Comments RPR RESULT (test code = NON-REACTIVE 3501) RPR TITER (test code = 3500) NOT INDIC. TITER [id number] 00:00:00 Test Item Value Reference Range Interpretation Comments RPR RESULT (test code = NON-REACTIVE 3501) RPR TITER (test code = 3500) NOT INDIC. TITER [id number] 00:00:00 Test Item Value Reference Range Interpretation Comments RPR RESULT (test code = NON-REACTIVE 3501) RPR TITER (test code = 3500) NOT INDIC. TITER [id number] 00:00:00 Test Item Value Reference Range Interpretation Comments RPR RESULT (test code = NON-REACTIVE 3501) RPR TITER (test code = 3500) NOT INDIC. TITER [id number] 00:00:00 Test Item Value Reference Range Interpretation Comments RPR RESULT (test code = NON-REACTIVE 3501) RPR TITER (test code = 3500) NOT INDIC. TITER [id number] 00:00:00 Test Item Value Reference Range Interpretation Comments RPR RESULT (test code = NON-REACTIVE 3501) RPR TITER (test code = 3500) NOT INDIC. TITER [id number] 00:00:00 Test Item Value Reference Range Interpretation Comments RPR RESULT (test code = NON-REACTIVE 3501) RPR TITER (test code = 3500) NOT INDIC. TITER [id number] 00:00:00 Test Item Value Reference Range Interpretation Comments RPR RESULT (test code = NON-REACTIVE 3501) RPR TITER (test code = 3500) NOT INDIC. TITER [id number] 00:00:00 Test Item Value Reference Range Interpretation Comments RPR RESULT (test code = NON-REACTIVE 3501) RPR TITER (test code = 3500) NOT INDIC. TITER [id number] 00:00:00 Test Item Value Reference Range Interpretation Comments RPR RESULT (test code = NON-REACTIVE 3501) RPR TITER (test code = 3500) NOT INDIC. TITER [id number] 00:00:00 Test Item Value Reference Range Interpretation Comments RPR RESULT (test code = NON-REACTIVE 3501) RPR TITER (test code = 3500) NOT INDIC. TITER [id number] 00:00:00 Test Item Value Reference Range Interpretation Comments RPR RESULT (test code = NON-REACTIVE 3501) RPR TITER (test code = 3500) NOT INDIC. TITER [id number] 00:00:00 Test Item Value Reference Range Interpretation Comments RPR RESULT (test code = NON-REACTIVE 3501) RPR TITER (test code = 3500) NOT INDIC. TITER [id number] 00:00:00 Test Item Value Reference Range Interpretation Comments RPR RESULT (test code = NON-REACTIVE 3501) RPR TITER (test code = 3500) NOT INDIC. TITER [id number] 00:00:00 Test Item Value Reference Range Interpretation Comments RPR RESULT (test code = NON-REACTIVE 3501) RPR TITER (test code = 3500) NOT INDIC. TITER [id number] 00:00:00 Test Item Value Reference Range Interpretation Comments RPR RESULT (test code = NON-REACTIVE 3501) RPR TITER (test code = 3500) NOT INDIC. TITER [id number] 00:00:00 Test Item Value Reference Range Interpretation Comments RPR RESULT (test code = NON-REACTIVE 3501) RPR TITER (test code = 3500) NOT INDIC. TITER [id number] 00:00:00 Test Item Value Reference Range Interpretation Comments RPR RESULT (test code = NON-REACTIVE 3501) RPR TITER (test code = 3500) NOT INDIC. TITER [id number] 00:00:00 Test Item Value Reference Range Interpretation Comments RPR RESULT (test code = NON-REACTIVE 3501) RPR TITER (test code = 3500) NOT INDIC. TITER [id number] 00:00:00 Test Item Value Reference Range Interpretation Comments RPR RESULT (test code = NON-REACTIVE 3501) RPR TITER (test code = 3500) NOT INDIC. TITER [id number] 00:00:00 Test Item Value Reference Range Interpretation Comments RPR RESULT (test code = NON-REACTIVE 3501) RPR TITER (test code = 3500) NOT INDIC. TITER [id number] 00:00:00 Test Item Value Reference Range Interpretation Comments RPR RESULT (test code = NON-REACTIVE 3501) RPR TITER (test code = 3500) NOT INDIC. TITER [id number] 00:00:00 Test Item Value Reference Range Interpretation Comments RPR RESULT (test code = NON-REACTIVE 3501) RPR TITER (test code = 3500) NOT INDIC. TITER [id number] 00:00:00 Test Item Value Reference Range Interpretation Comments RPR RESULT (test code = NON-REACTIVE 3501) RPR TITER (test code = 3500) NOT INDIC. TITER SARS-CoV-2 (COVID-19), RT-PCR/[id number] 17:22:58 Test Item Value Reference Interpretation Comments Range SARS-CoV-2 NEGATIVE SEE NOTE SARS-CoV-2 RNA NOT INTERPRETATION DETECTEDNegat alexander (test code = 56410) results do not preclude SARS-C oV-2 infection [...] (test code = NASOPHARYNGEAL Note: [place] [address]) Steve Cecile Melba l-Time RT-PCR. The exp ected result or refer ence range is NEGATI VE (Not Detected). For more information reg arding COVID-19 testin g to include clinicalinforma tion, methodology det ail, intended use, F DA authorization andrecommended fact sheets for mac ents or healthcare prov iders, see [employer] Int Announcement: SARS-CoV-2 (COV ID-19) by NAAT at URL below (note,fact shee ts are provided by met hod given in report:[email or web address] Alternatively, see downloadable PD F fact sheet at:[email or web address] [email or web address] UNLESS OTHERWIS E INDICATED, ALL TESTING PERFORMED [facility], [place] [place] [address] ESTEFANY KAUR DIRECTOR: Shakira FLORESIA NUMBER [id number] CAP ACCREDITATION N O. [id number] SARS-CoV-2 (COVID-19) by RT-PCR (HIGH RISK)2021-10-10 00:00:00 Test Item Value Reference Range Interpretation Comments SARS-CoV-2 INTERPRETATION NEGATIVE (test code = 49495) SOURCE (test code = 79559) NASOPHARYNGEAL SARS-CoV-2 (COVID-19) by RT-PCR (HIGH RISK)2021-10-10 00:00:00 Test Item Value Reference Range Interpretation Comments SARS-CoV-2 INTERPRETATION NEGATIVE (test code = 01831) SOURCE (test code = 00190) NASOPHARYNGEAL SARS-CoV-2 (COVID-19) by RT-PCR (HIGH RISK)2021-10-10 00:00:00 Test Item Value Reference Range Interpretation Comments SARS-CoV-2 INTERPRETATION NEGATIVE (test code = 78574) SOURCE (test code = 52234) NASOPHARYNGEAL SARS-CoV-2 (COVID-19) by RT-PCR (HIGH RISK)2021-10-10 00:00:00 Test Item Value Reference Range Interpretation Comments SARS-CoV-2 INTERPRETATION NEGATIVE (test code = 72070) SOURCE (test code = 20250) NASOPHARYNGEAL SARS-CoV-2 (COVID-19) by RT-PCR (HIGH RISK)2021-10-10 00:00:00 Test Item Value Reference Range Interpretation Comments SARS-CoV-2 INTERPRETATION NEGATIVE (test code = 94890) SOURCE (test code = 65389) NASOPHARYNGEAL SARS-CoV-2 (COVID-19) by RT-PCR (HIGH RISK)2021-10-10 00:00:00 Test Item Value Reference Range Interpretation Comments SARS-CoV-2 INTERPRETATION NEGATIVE (test code = 48619) SOURCE (test code = 33770) NASOPHARYNGEAL SARS-CoV-2 (COVID-19) by RT-PCR (HIGH RISK)2021-10-10 00:00:00 Test Item Value Reference Range Interpretation Comments SARS-CoV-2 INTERPRETATION NEGATIVE (test code = 49130) SOURCE (test code = 94970) NASOPHARYNGEAL SARS-CoV-2 (COVID-19) by RT-PCR (HIGH RISK)2021-10-10 00:00:00 Test Item Value Reference Range Interpretation Comments SARS-CoV-2 INTERPRETATION NEGATIVE (test code = 28614) SOURCE (test code = 20959) NASOPHARYNGEAL SARS-CoV-2 (COVID-19) by RT-PCR (HIGH RISK)2021-10-10 00:00:00 Test Item Value Reference Range Interpretation Comments SARS-CoV-2 INTERPRETATION NEGATIVE (test code = 31147) SOURCE (test code = 80480) NASOPHARYNGEAL SARS-CoV-2 (COVID-19) by RT-PCR (HIGH RISK)2021-10-10 00:00:00 Test Item Value Reference Range Interpretation Comments SARS-CoV-2 INTERPRETATION NEGATIVE (test code = 33072) SOURCE (test code = 41636) NASOPHARYNGEAL SARS-CoV-2 (COVID-19) by RT-PCR (HIGH RISK)2021-10-10 00:00:00 Test Item Value Reference Range Interpretation Comments SARS-CoV-2 INTERPRETATION NEGATIVE (test code = 59408) SOURCE (test code = 23995) NASOPHARYNGEAL SARS-CoV-2 (COVID-19) by RT-PCR (HIGH RISK)2021-10-10 00:00:00 Test Item Value Reference Range Interpretation Comments SARS-CoV-2 INTERPRETATION NEGATIVE (test code = 61438) SOURCE (test code = 96919) NASOPHARYNGEAL SARS-CoV-2 (COVID-19) by RT-PCR (HIGH RISK)2021-10-10 00:00:00 Test Item Value Reference Range Interpretation Comments SARS-CoV-2 INTERPRETATION NEGATIVE (test code = 22933) SOURCE (test code = 28979) NASOPHARYNGEAL SARS-CoV-2 (COVID-19) by RT-PCR (HIGH RISK)2021-10-10 00:00:00 Test Item Value Reference Range Interpretation Comments SARS-CoV-2 INTERPRETATION NEGATIVE (test code = 60003) SOURCE (test code = 24355) NASOPHARYNGEAL SARS-CoV-2 (COVID-19) by RT-PCR (HIGH RISK)2021-10-10 00:00:00 Test Item Value Reference Range Interpretation Comments SARS-CoV-2 INTERPRETATION NEGATIVE (test code = 55305) SOURCE (test code = 08596) NASOPHARYNGEAL SARS-CoV-2 (COVID-19) by RT-PCR (HIGH RISK)2021-10-10 00:00:00 Test Item Value Reference Range Interpretation Comments SARS-CoV-2 INTERPRETATION NEGATIVE (test code = 09029) SOURCE (test code = 29320) NASOPHARYNGEAL SARS-CoV-2 (COVID-19) by RT-PCR (HIGH RISK)2021-10-10 00:00:00 Test Item Value Reference Range Interpretation Comments SARS-CoV-2 INTERPRETATION NEGATIVE (test code = 56020) SOURCE (test code = 24526) NASOPHARYNGEAL SARS-CoV-2 (COVID-19) by RT-PCR (HIGH RISK)2021-10-10 00:00:00 Test Item Value Reference Range Interpretation Comments SARS-CoV-2 INTERPRETATION NEGATIVE (test code = 91024) SOURCE (test code = 59216) NASOPHARYNGEAL SARS-CoV-2 (COVID-19) by RT-PCR (HIGH RISK)2021-10-10 00:00:00 Test Item Value Reference Range Interpretation Comments SARS-CoV-2 INTERPRETATION NEGATIVE (test code = 51700) SOURCE (test code = 31320) NASOPHARYNGEAL SARS-CoV-2 (COVID-19) by RT-PCR (HIGH RISK)2021-10-10 00:00:00 Test Item Value Reference Range Interpretation Comments SARS-CoV-2 INTERPRETATION NEGATIVE (test code = 06499) SOURCE (test code = 90825) NASOPHARYNGEAL SARS-CoV-2 (COVID-19) by RT-PCR (HIGH RISK)2021-10-10 00:00:00 Test Item Value Reference Range Interpretation Comments SARS-CoV-2 INTERPRETATION NEGATIVE (test code = 35739) SOURCE (test code = 87959) NASOPHARYNGEAL CHLAMYDIA, AMPLIFIED, [id number] 00:00:00 Test Item Value Reference Range Interpretation Comments CHLAMYDIA, NAAT (test code = 30093) NEGATIVE CHLAMYDIA, AMPLIFIED, [id number] 00:00:00 Test Item Value Reference Range Interpretation Comments CHLAMYDIA, NAAT (test code = 81977) NEGATIVE CHLAMYDIA, AMPLIFIED, [id number] 00:00:00 Test Item Value Reference Range Interpretation Comments CHLAMYDIA, NAAT (test code = 43009) NEGATIVE CHLAMYDIA, AMPLIFIED, [id number] 00:00:00 Test Item Value Reference Range Interpretation Comments CHLAMYDIA, NAAT (test code = 36900) NEGATIVE GC, AMPLIFIED, [id number] 00:00:00 Test Item Value Reference Range Interpretation Comments GONORRHEA, NAAT (test code = 98447) NEGATIVE GC, AMPLIFIED, [id number] 00:00:00 Test Item Value Reference Range Interpretation Comments GONORRHEA, NAAT (test code = 50558) NEGATIVE GC, AMPLIFIED, [id number] 00:00:00 Test Item Value Reference Range Interpretation Comments GONORRHEA, NAAT (test code = 03922) NEGATIVE GC, AMPLIFIED, [id number] 00:00:00 Test Item Value Reference Range Interpretation Comments GONORRHEA, NAAT (test code = 78979) NEGATIVE HIV AB/AG COMBO RFLX [id number] 00:00:00 Test Item Value Reference Range Interpretation Comments HIV 1/2 4TH GEN, RFLX CONF (test NON-REACTIVE code = 3514) HIV AB/AG COMBO RFLX [id number] 00:00:00 Test Item Value Reference Range Interpretation Comments HIV 1/2 4TH GEN, RFLX CONF (test NON-REACTIVE code = 3514) [id number] 00:00:00 Test Item Value Reference Range Interpretation Comments RPR RESULT (test code = NON-REACTIVE 3501) RPR TITER (test code = 3500) NOT INDIC. TITER [id number] 00:00:00 Test Item Value Reference Range Interpretation Comments RPR RESULT (test code = NON-REACTIVE 3501) RPR TITER (test code = 3500) NOT INDIC. TITER [id number] 00:00:00 Test Item Value Reference Range Interpretation Comments RPR RESULT (test code = NON-REACTIVE 3501) RPR TITER (test code = 3500) NOT INDIC. TITER ACUTE HEPATITIS [id number] 00:00:00 Test Item Value Reference Range Interpretation Comments HEPATITIS A IgM (test code = NON-REACTIVE 42759) HEPATITIS B CORE IgM (test code NON-REACTIVE = 4644) HEPATITIS B SURF AG (test code = NON-REACTIVE 2739) HEPATITIS C ANTIBODY (test code NON-REACTIVE = 4675) INTERPRETATION HEPATITIS A: (NOTE) (test code = 2552) INTERPRETATION HEPATITIS B: (NOTE) (test code = 75139) INTERPRETATION HEPATITIS C: (NOTE) (test code = 95849) ACUTE HEPATITIS [id number] 00:00:00 Test Item Value Reference Range Interpretation Comments HEPATITIS A IgM (test code = NON-REACTIVE 18180) HEPATITIS B CORE IgM (test code NON-REACTIVE = 4644) HEPATITIS B SURF AG (test code = NON-REACTIVE 2739) HEPATITIS C ANTIBODY (test code NON-REACTIVE = 4675) INTERPRETATION HEPATITIS A: (NOTE) (test code = 2552) INTERPRETATION HEPATITIS B: (NOTE) (test code = 57520) INTERPRETATION HEPATITIS C: (NOTE) (test code = 21759) CHLAMYDIA, AMPLIFIED, [id number] 00:00:00 Test Item Value Reference Range Interpretation Comments CHLAMYDIA, NAAT (test code = 10224) NEGATIVE CHLAMYDIA, AMPLIFIED, [id number] 00:00:00 Test Item Value Reference Range Interpretation Comments CHLAMYDIA, NAAT (test code = 14871) NEGATIVE CHLAMYDIA, AMPLIFIED, [id number] 00:00:00 Test Item Value Reference Range Interpretation Comments CHLAMYDIA, NAAT (test code = 06852) NEGATIVE CHLAMYDIA, AMPLIFIED, [id number] 00:00:00 Test Item Value Reference Range Interpretation Comments CHLAMYDIA, NAAT (test code = 90127) NEGATIVE GC, AMPLIFIED, [id number] 00:00:00 Test Item Value Reference Range Interpretation Comments GONORRHEA, NAAT (test code = 16243) NEGATIVE GC, AMPLIFIED, [id number] 00:00:00 Test Item Value Reference Range Interpretation Comments GONORRHEA, NAAT (test code = 07727) NEGATIVE GC, AMPLIFIED, [id number] 00:00:00 Test Item Value Reference Range Interpretation Comments GONORRHEA, NAAT (test code = 61122) NEGATIVE GC, AMPLIFIED, [id number] 00:00:00 Test Item Value Reference Range Interpretation Comments GONORRHEA, NAAT (test code = 07358) NEGATIVE HIV AB/AG COMBO RFLX [id number] 00:00:00 Test Item Value Reference Range Interpretation Comments HIV 1/2 4TH GEN, RFLX CONF (test NON-REACTIVE code = 3514) HIV AB/AG COMBO RFLX [id number] 00:00:00 Test Item Value Reference Range Interpretation Comments HIV 1/2 4TH GEN, RFLX CONF (test NON-REACTIVE code = 3514) [id number] 00:00:00 Test Item Value Reference Range Interpretation Comments RPR RESULT (test code = NON-REACTIVE 3501) RPR TITER (test code = 3500) NOT INDIC. TITER [id number] 00:00:00 Test Item Value Reference Range Interpretation Comments RPR RESULT (test code = NON-REACTIVE 3501) RPR TITER (test code = 3500) NOT INDIC. TITER [id number] 00:00:00 Test Item Value Reference Range Interpretation Comments RPR RESULT (test code = NON-REACTIVE 3501) RPR TITER (test code = 3500) NOT INDIC. TITER ACUTE HEPATITIS [id number] 00:00:00 Test Item Value Reference Range Interpretation Comments HEPATITIS A IgM (test code = NON-REACTIVE 60288) HEPATITIS B CORE IgM (test code NON-REACTIVE = 4644) HEPATITIS B SURF AG (test code = NON-REACTIVE 2739) HEPATITIS C ANTIBODY (test code NON-REACTIVE = 4675) INTERPRETATION HEPATITIS A: (NOTE) (test code = 2552) INTERPRETATION HEPATITIS B: (NOTE) (test code = 91575) INTERPRETATION HEPATITIS C: (NOTE) (test code = 24664) ACUTE HEPATITIS [id number] 00:00:00 Test Item Value Reference Range Interpretation Comments HEPATITIS A IgM (test code = NON-REACTIVE 15152) HEPATITIS B CORE IgM (test code NON-REACTIVE = 4644) HEPATITIS B SURF AG (test code = NON-REACTIVE 2739) HEPATITIS C ANTIBODY (test code NON-REACTIVE = 4675) INTERPRETATION HEPATITIS A: (NOTE) (test code = 2552) INTERPRETATION HEPATITIS B: (NOTE) (test code = 23103) INTERPRETATION HEPATITIS C: (NOTE) (test code = 48799) CHLAMYDIA, AMPLIFIED, [id number] 00:00:00 Test Item Value Reference Range Interpretation Comments CHLAMYDIA, NAAT (test code = 67167) NEGATIVE CHLAMYDIA, AMPLIFIED, [id number] 00:00:00 Test Item Value Reference Range Interpretation Comments CHLAMYDIA, NAAT (test code = 15345) NEGATIVE CHLAMYDIA, AMPLIFIED, [id number] 00:00:00 Test Item Value Reference Range Interpretation Comments CHLAMYDIA, NAAT (test code = 26336) NEGATIVE CHLAMYDIA, AMPLIFIED, [id number] 00:00:00 Test Item Value Reference Range Interpretation Comments CHLAMYDIA, NAAT (test code = 70407) NEGATIVE GC, AMPLIFIED, [id number] 00:00:00 Test Item Value Reference Range Interpretation Comments GONORRHEA, NAAT (test code = 57780) NEGATIVE GC, AMPLIFIED, [id number] 00:00:00 Test Item Value Reference Range Interpretation Comments GONORRHEA, NAAT (test code = 80302) NEGATIVE GC, AMPLIFIED, [id number] 00:00:00 Test Item Value Reference Range Interpretation Comments GONORRHEA, NAAT (test code = 20144) NEGATIVE GC, AMPLIFIED, [id number] 00:00:00 Test Item Value Reference Range Interpretation Comments GONORRHEA, NAAT (test code = 99729) NEGATIVE HIV AB/AG COMBO RFLX [id number] 00:00:00 Test Item Value Reference Range Interpretation Comments HIV 1/2 4TH GEN, RFLX CONF (test NON-REACTIVE code = 3514) HIV AB/AG COMBO RFLX [id number] 00:00:00 Test Item Value Reference Range Interpretation Comments HIV 1/2 4TH GEN, RFLX CONF (test NON-REACTIVE code = 3514) [id number] 00:00:00 Test Item Value Reference Range Interpretation Comments RPR RESULT (test code = NON-REACTIVE 3501) RPR TITER (test code = 3500) NOT INDIC. TITER [id number] 00:00:00 Test Item Value Reference Range Interpretation Comments RPR RESULT (test code = NON-REACTIVE 3501) RPR TITER (test code = 3500) NOT INDIC. TITER [id number] 00:00:00 Test Item Value Reference Range Interpretation Comments RPR RESULT (test code = NON-REACTIVE 3501) RPR TITER (test code = 3500) NOT INDIC. TITER ACUTE HEPATITIS [id number] 00:00:00 Test Item Value Reference Range Interpretation Comments HEPATITIS A IgM (test code = NON-REACTIVE 03339) HEPATITIS B CORE IgM (test code NON-REACTIVE = 4644) HEPATITIS B SURF AG (test code = NON-REACTIVE 2739) HEPATITIS C ANTIBODY (test code NON-REACTIVE = 4675) INTERPRETATION HEPATITIS A: (NOTE) (test code = 2552) INTERPRETATION HEPATITIS B: (NOTE) (test code = 79947) INTERPRETATION HEPATITIS C: (NOTE) (test code = 08115) ACUTE HEPATITIS [id number] 00:00:00 Test Item Value Reference Range Interpretation Comments HEPATITIS A IgM (test code = NON-REACTIVE 68676) HEPATITIS B CORE IgM (test code NON-REACTIVE = 4644) HEPATITIS B SURF AG (test code = NON-REACTIVE 2739) HEPATITIS C ANTIBODY (test code NON-REACTIVE = 4675) INTERPRETATION HEPATITIS A: (NOTE) (test code = 2552) INTERPRETATION HEPATITIS B: (NOTE) (test code = 11340) INTERPRETATION HEPATITIS C: (NOTE) (test code = 51680) CHLAMYDIA, AMPLIFIED, [id number] 00:00:00 Test Item Value Reference Range Interpretation Comments CHLAMYDIA, NAAT (test code = 31973) NEGATIVE CHLAMYDIA, AMPLIFIED, [id number] 00:00:00 Test Item Value Reference Range Interpretation Comments CHLAMYDIA, NAAT (test code = 46369) NEGATIVE CHLAMYDIA, AMPLIFIED, [id number] 00:00:00 Test Item Value Reference Range Interpretation Comments CHLAMYDIA, NAAT (test code = 47631) NEGATIVE CHLAMYDIA, AMPLIFIED, [id number] 00:00:00 Test Item Value Reference Range Interpretation Comments CHLAMYDIA, NAAT (test code = 12286) NEGATIVE GC, AMPLIFIED, [id number] 00:00:00 Test Item Value Reference Range Interpretation Comments GONORRHEA, NAAT (test code = 64012) NEGATIVE GC, AMPLIFIED, [id number] 00:00:00 Test Item Value Reference Range Interpretation Comments GONORRHEA, NAAT (test code = 48074) NEGATIVE GC, AMPLIFIED, [id number] 00:00:00 Test Item Value Reference Range Interpretation Comments GONORRHEA, NAAT (test code = 31168) NEGATIVE GC, AMPLIFIED, [id number] 00:00:00 Test Item Value Reference Range Interpretation Comments GONORRHEA, NAAT (test code = 98571) NEGATIVE HIV AB/AG COMBO RFLX [id number] 00:00:00 Test Item Value Reference Range Interpretation Comments HIV 1/2 4TH GEN, RFLX CONF (test NON-REACTIVE code = 3514) HIV AB/AG COMBO RFLX [id number] 00:00:00 Test Item Value Reference Range Interpretation Comments HIV 1/2 4TH GEN, RFLX CONF (test NON-REACTIVE code = 3514) [id number] 00:00:00 Test Item Value Reference Range Interpretation Comments RPR RESULT (test code = NON-REACTIVE 3501) RPR TITER (test code = 3500) NOT INDIC. TITER [id number] 00:00:00 Test Item Value Reference Range Interpretation Comments RPR RESULT (test code = NON-REACTIVE 3501) RPR TITER (test code = 3500) NOT INDIC. TITER [id number] 00:00:00 Test Item Value Reference Range Interpretation Comments RPR RESULT (test code = NON-REACTIVE 3501) RPR TITER (test code = 3500) NOT INDIC. TITER ACUTE HEPATITIS [id number] 00:00:00 Test Item Value Reference Range Interpretation Comments HEPATITIS A IgM (test code = NON-REACTIVE 23088) HEPATITIS B CORE IgM (test code NON-REACTIVE = 4644) HEPATITIS B SURF AG (test code = NON-REACTIVE 2739) HEPATITIS C ANTIBODY (test code NON-REACTIVE = 4675) INTERPRETATION HEPATITIS A: (NOTE) (test code = 2552) INTERPRETATION HEPATITIS B: (NOTE) (test code = 73820) INTERPRETATION HEPATITIS C: (NOTE) (test code = 85342) ACUTE HEPATITIS [id number] 00:00:00 Test Item Value Reference Range Interpretation Comments HEPATITIS A IgM (test code = NON-REACTIVE 49537) HEPATITIS B CORE IgM (test code NON-REACTIVE = 4644) HEPATITIS B SURF AG (test code = NON-REACTIVE 2739) HEPATITIS C ANTIBODY (test code NON-REACTIVE = 4675) INTERPRETATION HEPATITIS A: (NOTE) (test code = 2552) INTERPRETATION HEPATITIS B: (NOTE) (test code = 53195) INTERPRETATION HEPATITIS C: (NOTE) (test code = 63131) CHLAMYDIA, AMPLIFIED, [id number] 00:00:00 Test Item Value Reference Range Interpretation Comments CHLAMYDIA, NAAT (test code = 57225) NEGATIVE CHLAMYDIA, AMPLIFIED, [id number] 00:00:00 Test Item Value Reference Range Interpretation Comments CHLAMYDIA, NAAT (test code = 10486) NEGATIVE CHLAMYDIA, AMPLIFIED, [id number] 00:00:00 Test Item Value Reference Range Interpretation Comments CHLAMYDIA, NAAT (test code = 22030) NEGATIVE CHLAMYDIA, AMPLIFIED, [id number] 00:00:00 Test Item Value Reference Range Interpretation Comments CHLAMYDIA, NAAT (test code = 44736) NEGATIVE GC, AMPLIFIED, [id number] 00:00:00 Test Item Value Reference Range Interpretation Comments GONORRHEA, NAAT (test code = 24025) NEGATIVE GC, AMPLIFIED, [id number] 00:00:00 Test Item Value Reference Range Interpretation Comments GONORRHEA, NAAT (test code = 55447) NEGATIVE GC, AMPLIFIED, [id number] 00:00:00 Test Item Value Reference Range Interpretation Comments GONORRHEA, NAAT (test code = 53232) NEGATIVE GC, AMPLIFIED, [id number] 00:00:00 Test Item Value Reference Range Interpretation Comments GONORRHEA, NAAT (test code = 99186) NEGATIVE HIV AB/AG COMBO RFLX [id number] 00:00:00 Test Item Value Reference Range Interpretation Comments HIV 1/2 4TH GEN, RFLX CONF (test NON-REACTIVE code = 3514) HIV AB/AG COMBO RFLX [id number] 00:00:00 Test Item Value Reference Range Interpretation Comments HIV 1/2 4TH GEN, RFLX CONF (test NON-REACTIVE code = 3514) [id number] 00:00:00 Test Item Value Reference Range Interpretation Comments RPR RESULT (test code = NON-REACTIVE 3501) RPR TITER (test code = 3500) NOT INDIC. TITER [id number] 00:00:00 Test Item Value Reference Range Interpretation Comments RPR RESULT (test code = NON-REACTIVE 3501) RPR TITER (test code = 3500) NOT INDIC. TITER [id number] 00:00:00 Test Item Value Reference Range Interpretation Comments RPR RESULT (test code = NON-REACTIVE 3501) RPR TITER (test code = 3500) NOT INDIC. TITER ACUTE HEPATITIS [id number] 00:00:00 Test Item Value Reference Range Interpretation Comments HEPATITIS A IgM (test code = NON-REACTIVE 20873) HEPATITIS B CORE IgM (test code NON-REACTIVE = 4644) HEPATITIS B SURF AG (test code = NON-REACTIVE 2739) HEPATITIS C ANTIBODY (test code NON-REACTIVE = 4675) INTERPRETATION HEPATITIS A: (NOTE) (test code = 2552) INTERPRETATION HEPATITIS B: (NOTE) (test code = 43152) INTERPRETATION HEPATITIS C: (NOTE) (test code = 94849) ACUTE HEPATITIS [id number] 00:00:00 Test Item Value Reference Range Interpretation Comments HEPATITIS A IgM (test code = NON-REACTIVE 88789) HEPATITIS B CORE IgM (test code NON-REACTIVE = 4644) HEPATITIS B SURF AG (test code = NON-REACTIVE 2739) HEPATITIS C ANTIBODY (test code NON-REACTIVE = 4675) INTERPRETATION HEPATITIS A: (NOTE) (test code = 2552) INTERPRETATION HEPATITIS B: (NOTE) (test code = 58070) INTERPRETATION HEPATITIS C: (NOTE) (test code = 90675) CHLAMYDIA, AMPLIFIED, [id number] 00:00:00 Test Item Value Reference Range Interpretation Comments CHLAMYDIA, NAAT (test code = 65143) NEGATIVE CHLAMYDIA, AMPLIFIED, [id number] 00:00:00 Test Item Value Reference Range Interpretation Comments CHLAMYDIA, NAAT (test code = 45190) NEGATIVE CHLAMYDIA, AMPLIFIED, [id number] 00:00:00 Test Item Value Reference Range Interpretation Comments CHLAMYDIA, NAAT (test code = 93935) NEGATIVE CHLAMYDIA, AMPLIFIED, [id number] 00:00:00 Test Item Value Reference Range Interpretation Comments CHLAMYDIA, NAAT (test code = 07599) NEGATIVE GC, AMPLIFIED, [id number] 00:00:00 Test Item Value Reference Range Interpretation Comments GONORRHEA, NAAT (test code = 31412) NEGATIVE GC, AMPLIFIED, [id number] 00:00:00 Test Item Value Reference Range Interpretation Comments GONORRHEA, NAAT (test code = 73862) NEGATIVE GC, AMPLIFIED, [id number] 00:00:00 Test Item Value Reference Range Interpretation Comments GONORRHEA, NAAT (test code = 00490) NEGATIVE GC, AMPLIFIED, [id number] 00:00:00 Test Item Value Reference Range Interpretation Comments GONORRHEA, NAAT (test code = 67913) NEGATIVE HIV AB/AG COMBO RFLX [id number] 00:00:00 Test Item Value Reference Range Interpretation Comments HIV 1/2 4TH GEN, RFLX CONF (test NON-REACTIVE code = 3514) HIV AB/AG COMBO RFLX [id number] 00:00:00 Test Item Value Reference Range Interpretation Comments HIV 1/2 4TH GEN, RFLX CONF (test NON-REACTIVE code = 3514) [id number] 00:00:00 Test Item Value Reference Range Interpretation Comments RPR RESULT (test code = NON-REACTIVE 3501) RPR TITER (test code = 3500) NOT INDIC. TITER [id number] 00:00:00 Test Item Value Reference Range Interpretation Comments RPR RESULT (test code = NON-REACTIVE 3501) RPR TITER (test code = 3500) NOT INDIC. TITER [id number] 00:00:00 Test Item Value Reference Range Interpretation Comments RPR RESULT (test code = NON-REACTIVE 3501) RPR TITER (test code = 3500) NOT INDIC. TITER ACUTE HEPATITIS [id number] 00:00:00 Test Item Value Reference Range Interpretation Comments HEPATITIS A IgM (test code = NON-REACTIVE 80536) HEPATITIS B CORE IgM (test code NON-REACTIVE = 4644) HEPATITIS B SURF AG (test code = NON-REACTIVE 2739) HEPATITIS C ANTIBODY (test code NON-REACTIVE = 4675) INTERPRETATION HEPATITIS A: (NOTE) (test code = 2552) INTERPRETATION HEPATITIS B: (NOTE) (test code = 57441) INTERPRETATION HEPATITIS C: (NOTE) (test code = 14630) ACUTE HEPATITIS [id number] 00:00:00 Test Item Value Reference Range Interpretation Comments HEPATITIS A IgM (test code = NON-REACTIVE 19348) HEPATITIS B CORE IgM (test code NON-REACTIVE = 4644) HEPATITIS B SURF AG (test code = NON-REACTIVE 2739) HEPATITIS C ANTIBODY (test code NON-REACTIVE = 4675) INTERPRETATION HEPATITIS A: (NOTE) (test code = 2552) INTERPRETATION HEPATITIS B: (NOTE) (test code = 60782) INTERPRETATION HEPATITIS C: (NOTE) (test code = 71879) CHLAMYDIA, AMPLIFIED, [id number] 00:00:00 Test Item Value Reference Range Interpretation Comments CHLAMYDIA, NAAT (test code = 24306) NEGATIVE CHLAMYDIA, AMPLIFIED, [id number] 00:00:00 Test Item Value Reference Range Interpretation Comments CHLAMYDIA, NAAT (test code = 72709) NEGATIVE CHLAMYDIA, AMPLIFIED, [id number] 00:00:00 Test Item Value Reference Range Interpretation Comments CHLAMYDIA, NAAT (test code = 77896) NEGATIVE CHLAMYDIA, AMPLIFIED, [id number] 00:00:00 Test Item Value Reference Range Interpretation Comments CHLAMYDIA, NAAT (test code = 60475) NEGATIVE GC, AMPLIFIED, [id number] 00:00:00 Test Item Value Reference Range Interpretation Comments GONORRHEA, NAAT (test code = 22793) NEGATIVE GC, AMPLIFIED, [id number] 00:00:00 Test Item Value Reference Range Interpretation Comments GONORRHEA, NAAT (test code = 73400) NEGATIVE GC, AMPLIFIED, [id number] 00:00:00 Test Item Value Reference Range Interpretation Comments GONORRHEA, NAAT (test code = 41908) NEGATIVE GC, AMPLIFIED, [id number] 00:00:00 Test Item Value Reference Range Interpretation Comments GONORRHEA, NAAT (test code = 92916) NEGATIVE HIV AB/AG COMBO RFLX [id number] 00:00:00 Test Item Value Reference Range Interpretation Comments HIV 1/2 4TH GEN, RFLX CONF (test NON-REACTIVE code = 3514) HIV AB/AG COMBO RFLX [id number] 00:00:00 Test Item Value Reference Range Interpretation Comments HIV 1/2 4TH GEN, RFLX CONF (test NON-REACTIVE code = 3514) [id number] 00:00:00 Test Item Value Reference Range Interpretation Comments RPR RESULT (test code = NON-REACTIVE 3501) RPR TITER (test code = 3500) NOT INDIC. TITER [id number] 00:00:00 Test Item Value Reference Range Interpretation Comments RPR RESULT (test code = NON-REACTIVE 3501) RPR TITER (test code = 3500) NOT INDIC. TITER [id number] 00:00:00 Test Item Value Reference Range Interpretation Comments RPR RESULT (test code = NON-REACTIVE 3501) RPR TITER (test code = 3500) NOT INDIC. TITER ACUTE HEPATITIS [id number] 00:00:00 Test Item Value Reference Range Interpretation Comments HEPATITIS A IgM (test code = NON-REACTIVE 43467) HEPATITIS B CORE IgM (test code NON-REACTIVE = 4644) HEPATITIS B SURF AG (test code = NON-REACTIVE 2739) HEPATITIS C ANTIBODY (test code NON-REACTIVE = 4675) INTERPRETATION HEPATITIS A: (NOTE) (test code = 2552) INTERPRETATION HEPATITIS B: (NOTE) (test code = 68319) INTERPRETATION HEPATITIS C: (NOTE) (test code = 73250) ACUTE HEPATITIS [id number] 00:00:00 Test Item Value Reference Range Interpretation Comments HEPATITIS A IgM (test code = NON-REACTIVE 39277) HEPATITIS B CORE IgM (test code NON-REACTIVE = 4644) HEPATITIS B SURF AG (test code = NON-REACTIVE 2739) HEPATITIS C ANTIBODY (test code NON-REACTIVE = 4675) INTERPRETATION HEPATITIS A: (NOTE) (test code = 2552) INTERPRETATION HEPATITIS B: (NOTE) (test code = 87542) INTERPRETATION HEPATITIS C: (NOTE) (test code = 79776) CHLAMYDIA, AMPLIFIED, [id number] 00:00:00 Test Item Value Reference Range Interpretation Comments CHLAMYDIA, NAAT (test code = 33314) NEGATIVE CHLAMYDIA, AMPLIFIED, [id number] 00:00:00 Test Item Value Reference Range Interpretation Comments CHLAMYDIA, NAAT (test code = 33479) NEGATIVE CHLAMYDIA, AMPLIFIED, [id number] 00:00:00 Test Item Value Reference Range Interpretation Comments CHLAMYDIA, NAAT (test code = 43903) NEGATIVE CHLAMYDIA, AMPLIFIED, [id number] 00:00:00 Test Item Value Reference Range Interpretation Comments CHLAMYDIA, NAAT (test code = 52346) NEGATIVE CHLAMYDIA, AMPLIFIED, [id number] 00:00:00 Test Item Value Reference Range Interpretation Comments CHLAMYDIA, NAAT (test code = 25959) NEGATIVE CHLAMYDIA, AMPLIFIED, [id number] 00:00:00 Test Item Value Reference Range Interpretation Comments CHLAMYDIA, NAAT (test code = 24887) NEGATIVE GC, AMPLIFIED, [id number] 00:00:00 Test Item Value Reference Range Interpretation Comments GONORRHEA, NAAT (test code = 46924) NEGATIVE GC, AMPLIFIED, [id number] 00:00:00 Test Item Value Reference Range Interpretation Comments GONORRHEA, NAAT (test code = 73297) NEGATIVE GC, AMPLIFIED, [id number] 00:00:00 Test Item Value Reference Range Interpretation Comments GONORRHEA, NAAT (test code = 82655) NEGATIVE GC, AMPLIFIED, [id number] 00:00:00 Test Item Value Reference Range Interpretation Comments GONORRHEA, NAAT (test code = 12052) NEGATIVE HIV AB/AG COMBO RFLX [id number] 00:00:00 Test Item Value Reference Range Interpretation Comments HIV 1/2 4TH GEN, RFLX CONF (test NON-REACTIVE code = 3514) HIV AB/AG COMBO RFLX [id number] 00:00:00 Test Item Value Reference Range Interpretation Comments HIV 1/2 4TH GEN, RFLX CONF (test NON-REACTIVE code = 3514) [id number] 00:00:00 Test Item Value Reference Range Interpretation Comments RPR RESULT (test code = NON-REACTIVE 3501) RPR TITER (test code = 3500) NOT INDIC. TITER [id number] 00:00:00 Test Item Value Reference Range Interpretation Comments RPR RESULT (test code = NON-REACTIVE 3501) RPR TITER (test code = 3500) NOT INDIC. TITER [id number] 00:00:00 Test Item Value Reference Range Interpretation Comments RPR RESULT (test code = NON-REACTIVE 3501) RPR TITER (test code = 3500) NOT INDIC. TITER ACUTE HEPATITIS [id number] 00:00:00 Test Item Value Reference Range Interpretation Comments HEPATITIS A IgM (test code = NON-REACTIVE 37026) HEPATITIS B CORE IgM (test code NON-REACTIVE = 4644) HEPATITIS B SURF AG (test code = NON-REACTIVE 2739) HEPATITIS C ANTIBODY (test code NON-REACTIVE = 4675) INTERPRETATION HEPATITIS A: (NOTE) (test code = 2552) INTERPRETATION HEPATITIS B: (NOTE) (test code = 82940) INTERPRETATION HEPATITIS C: (NOTE) (test code = 40663) ACUTE HEPATITIS [id number] 00:00:00 Test Item Value Reference Range Interpretation Comments HEPATITIS A IgM (test code = NON-REACTIVE 06202) HEPATITIS B CORE IgM (test code NON-REACTIVE = 4644) HEPATITIS B SURF AG (test code = NON-REACTIVE 2739) HEPATITIS C ANTIBODY (test code NON-REACTIVE = 4675) INTERPRETATION HEPATITIS A: (NOTE) (test code = 2552) INTERPRETATION HEPATITIS B: (NOTE) (test code = 54447) INTERPRETATION HEPATITIS C: (NOTE) (test code = 80981) GC, AMPLIFIED, [id number] 00:00:00 Test Item Value Reference Range Interpretation Comments GONORRHEA, NAAT (test code = 61863) NEGATIVE GC, AMPLIFIED, [id number] 00:00:00 Test Item Value Reference Range Interpretation Comments GONORRHEA, NAAT (test code = 00009) NEGATIVE HIV AB/AG COMBO RFLX [id number] 00:00:00 Test Item Value Reference Range Interpretation Comments HIV 1/2 4TH GEN, RFLX CONF (test NON-REACTIVE code = 3514) CHLAMYDIA, AMPLIFIED, [id number] 00:00:00 Test Item Value Reference Range Interpretation Comments CHLAMYDIA, NAAT (test code = 55382) NEGATIVE [id number] 00:00:00 Test Item Value Reference Range Interpretation Comments RPR RESULT (test code = NON-REACTIVE 3501) RPR TITER (test code = 3500) NOT INDIC. TITER CHLAMYDIA, AMPLIFIED, [id number] 00:00:00 Test Item Value Reference Range Interpretation Comments CHLAMYDIA, NAAT (test code = 56535) NEGATIVE CHLAMYDIA, AMPLIFIED, [id number] 00:00:00 Test Item Value Reference Range Interpretation Comments CHLAMYDIA, NAAT (test code = 50825) NEGATIVE [id number] 00:00:00 Test Item Value Reference Range Interpretation Comments RPR RESULT (test code = NON-REACTIVE 3501) RPR TITER (test code = 3500) NOT INDIC. TITER CHLAMYDIA, AMPLIFIED, [id number] 00:00:00 Test Item Value Reference Range Interpretation Comments CHLAMYDIA, NAAT (test code = 86486) NEGATIVE GC, AMPLIFIED, [id number] 00:00:00 Test Item Value Reference Range Interpretation Comments GONORRHEA, NAAT (test code = 99660) NEGATIVE GC, AMPLIFIED, [id number] 00:00:00 Test Item Value Reference Range Interpretation Comments GONORRHEA, NAAT (test code = 11585) NEGATIVE GC, AMPLIFIED, [id number] 00:00:00 Test Item Value Reference Range Interpretation Comments GONORRHEA, NAAT (test code = 33410) NEGATIVE GC, AMPLIFIED, [id number] 00:00:00 Test Item Value Reference Range Interpretation Comments GONORRHEA, NAAT (test code = 55883) NEGATIVE HIV AB/AG COMBO RFLX [id number] 00:00:00 Test Item Value Reference Range Interpretation Comments HIV 1/2 4TH GEN, RFLX CONF (test NON-REACTIVE code = 3514) ACUTE HEPATITIS [id number] 00:00:00 Test Item Value Reference Range Interpretation Comments HEPATITIS A IgM (test code = NON-REACTIVE 76198) HEPATITIS B CORE IgM (test code NON-REACTIVE = 4644) HEPATITIS B SURF AG (test code = NON-REACTIVE 1339) HEPATITIS C ANTIBODY (test code NON-REACTIVE = 4675) INTERPRETATION HEPATITIS A: (NOTE) (test code = 2552) INTERPRETATION HEPATITIS B: (NOTE) (test code = 90141) INTERPRETATION HEPATITIS C: (NOTE) (test code = 14441) HIV AB/AG COMBO RFLX [id number] 00:00:00 Test Item Value Reference Range Interpretation Comments HIV 1/2 4TH GEN, RFLX CONF (test NON-REACTIVE code = 3514) [id number] 00:00:00 Test Item Value Reference Range Interpretation Comments RPR RESULT (test code = NON-REACTIVE 3501) RPR TITER (test code = 3500) NOT INDIC. TITER [id number] 00:00:00 Test Item Value Reference Range Interpretation Comments RPR RESULT (test code = NON-REACTIVE 3501) RPR TITER (test code = 3500) NOT INDIC. TITER [id number] 00:00:00 Test Item Value Reference Range Interpretation Comments RPR RESULT (test code = NON-REACTIVE 3501) RPR TITER (test code = 3500) NOT INDIC. TITER ACUTE HEPATITIS [id number] 00:00:00 Test Item Value Reference Range Interpretation Comments HEPATITIS A IgM (test code = NON-REACTIVE 49201) HEPATITIS B CORE IgM (test code NON-REACTIVE = 4644) HEPATITIS B SURF AG (test code = NON-REACTIVE 2739) HEPATITIS C ANTIBODY (test code NON-REACTIVE = 4675) INTERPRETATION HEPATITIS A: (NOTE) (test code = 2552) INTERPRETATION HEPATITIS B: (NOTE) (test code = 14838) INTERPRETATION HEPATITIS C: (NOTE) (test code = 81793) ACUTE HEPATITIS [id number] 00:00:00 Test Item Value Reference Range Interpretation Comments HEPATITIS A IgM (test code = NON-REACTIVE 53016) HEPATITIS B CORE IgM (test code NON-REACTIVE = 4644) HEPATITIS B SURF AG (test code = NON-REACTIVE 2739) HEPATITIS C ANTIBODY (test code NON-REACTIVE = 4675) INTERPRETATION HEPATITIS A: (NOTE) (test code = 2552) INTERPRETATION HEPATITIS B: (NOTE) (test code = 14116) INTERPRETATION HEPATITIS C: (NOTE) (test code = 93102) CHLAMYDIA, AMPLIFIED, [id number] 00:00:00 Test Item Value Reference Range Interpretation Comments CHLAMYDIA, NAAT (test code = 03192) NEGATIVE CHLAMYDIA, AMPLIFIED, [id number] 00:00:00 Test Item Value Reference Range Interpretation Comments CHLAMYDIA, NAAT (test code = 39710) NEGATIVE CHLAMYDIA, AMPLIFIED, [id number] 00:00:00 Test Item Value Reference Range Interpretation Comments CHLAMYDIA, NAAT (test code = 25594) NEGATIVE CHLAMYDIA, AMPLIFIED, [id number] 00:00:00 Test Item Value Reference Range Interpretation Comments CHLAMYDIA, NAAT (test code = 09896) NEGATIVE GC, AMPLIFIED, [id number] 00:00:00 Test Item Value Reference Range Interpretation Comments GONORRHEA, NAAT (test code = 83812) NEGATIVE GC, AMPLIFIED, [id number] 00:00:00 Test Item Value Reference Range Interpretation Comments GONORRHEA, NAAT (test code = 24179) NEGATIVE GC, AMPLIFIED, [id number] 00:00:00 Test Item Value Reference Range Interpretation Comments GONORRHEA, NAAT (test code = 53766) NEGATIVE GC, AMPLIFIED, [id number] 00:00:00 Test Item Value Reference Range Interpretation Comments GONORRHEA, NAAT (test code = 24245) NEGATIVE HIV AB/AG COMBO RFLX [id number] 00:00:00 Test Item Value Reference Range Interpretation Comments HIV 1/2 4TH GEN, RFLX CONF (test NON-REACTIVE code = 3514) HIV AB/AG COMBO RFLX [id number] 00:00:00 Test Item Value Reference Range Interpretation Comments HIV 1/2 4TH GEN, RFLX CONF (test NON-REACTIVE code = 3514) [id number] 00:00:00 Test Item Value Reference Range Interpretation Comments RPR RESULT (test code = NON-REACTIVE 3501) RPR TITER (test code = 3500) NOT INDIC. TITER [id number] 00:00:00 Test Item Value Reference Range Interpretation Comments RPR RESULT (test code = NON-REACTIVE 3501) RPR TITER (test code = 3500) NOT INDIC. TITER [id number] 00:00:00 Test Item Value Reference Range Interpretation Comments RPR RESULT (test code = NON-REACTIVE 3501) RPR TITER (test code = 3500) NOT INDIC. TITER ACUTE HEPATITIS [id number] 00:00:00 Test Item Value Reference Range Interpretation Comments HEPATITIS A IgM (test code = NON-REACTIVE 87677) HEPATITIS B CORE IgM (test code NON-REACTIVE = 4644) HEPATITIS B SURF AG (test code = NON-REACTIVE 2739) HEPATITIS C ANTIBODY (test code NON-REACTIVE = 4675) INTERPRETATION HEPATITIS A: (NOTE) (test code = 2552) INTERPRETATION HEPATITIS B: (NOTE) (test code = 18751) INTERPRETATION HEPATITIS C: (NOTE) (test code = 36191) ACUTE HEPATITIS [id number] 00:00:00 Test Item Value Reference Range Interpretation Comments HEPATITIS A IgM (test code = NON-REACTIVE 06510) HEPATITIS B CORE IgM (test code NON-REACTIVE = 4644) HEPATITIS B SURF AG (test code = NON-REACTIVE 2739) HEPATITIS C ANTIBODY (test code NON-REACTIVE = 4675) INTERPRETATION HEPATITIS A: (NOTE) (test code = 2552) INTERPRETATION HEPATITIS B: (NOTE) (test code = 45139) INTERPRETATION HEPATITIS C: (NOTE) (test code = 66020) CULTURE, [id number] 00:00:00 Test Item Value Reference Range Interpretation Comments CULTURE, URINE (test SPECIMEN NUMBER: code = 08788) [id number] CULTURE, [id number] 00:00:00 Test Item Value Reference Range Interpretation Comments CULTURE, URINE (test SPECIMEN NUMBER: code = 14655) [id number] CULTURE, [id number] 00:00:00 Test Item Value Reference Range Interpretation Comments CULTURE, URINE (test SPECIMEN NUMBER: code = 96042) [id number] CULTURE, [id number] 00:00:00 Test Item Value Reference Range Interpretation Comments CULTURE, URINE (test SPECIMEN NUMBER: code = 87553) [id number] CULTURE, [id number] 00:00:00 Test Item Value Reference Range Interpretation Comments CULTURE, URINE (test SPECIMEN NUMBER: code = 79082) [id number] CULTURE, [id number] 00:00:00 Test Item Value Reference Range Interpretation Comments CULTURE, URINE (test SPECIMEN NUMBER: code = 31035) [id number] CULTURE, [id number] 00:00:00 Test Item Value Reference Range Interpretation Comments CULTURE, URINE (test SPECIMEN NUMBER: code = 00831) [id number] CULTURE, [id number] 00:00:00 Test Item Value Reference Range Interpretation Comments CULTURE, URINE (test SPECIMEN NUMBER: code = 88620) [id number] CULTURE, [id number] 00:00:00 Test Item Value Reference Range Interpretation Comments CULTURE, URINE (test SPECIMEN NUMBER: code = 95956) [id number] CULTURE, [id number] 00:00:00 Test Item Value Reference Range Interpretation Comments CULTURE, URINE (test SPECIMEN NUMBER: code = 50212) [id number] CULTURE, [id number] 00:00:00 Test Item Value Reference Range Interpretation Comments CULTURE, URINE (test SPECIMEN NUMBER: code = 13775) [id number] CULTURE, [id number] 00:00:00 Test Item Value Reference Range Interpretation Comments CULTURE, URINE (test SPECIMEN NUMBER: code = 45575) [id number] CULTURE, [id number] 00:00:00 Test Item Value Reference Range Interpretation Comments CULTURE, URINE (test SPECIMEN NUMBER: code = 55009) [id number] CULTURE, [id number] 00:00:00 Test Item Value Reference Range Interpretation Comments CULTURE, URINE (test SPECIMEN NUMBER: code = 18725) [id number] CULTURE, [id number] 00:00:00 Test Item Value Reference Range Interpretation Comments CULTURE, URINE (test SPECIMEN NUMBER: code = 86358) [id number] CULTURE, [id number] 00:00:00 Test Item Value Reference Range Interpretation Comments CULTURE, URINE (test SPECIMEN NUMBER: code = 98799) [id number] CULTURE, [id number] 00:00:00 Test Item Value Reference Range Interpretation Comments CULTURE, URINE (test SPECIMEN NUMBER: code = 98691) [id number] CULTURE, [id number] 00:00:00 Test Item Value Reference Range Interpretation Comments CULTURE, URINE (test SPECIMEN NUMBER: code = 87812) [id number] CULTURE, [id number] 00:00:00 Test Item Value Reference Range Interpretation Comments CULTURE, URINE (test SPECIMEN NUMBER: code = 75805) [id number] CULTURE, [id number] 00:00:00 Test Item Value Reference Range Interpretation Comments CULTURE, URINE (test SPECIMEN NUMBER: code = 42710) [id number] CULTURE, [id number] 00:00:00 Test Item Value Reference Range Interpretation Comments CULTURE, URINE (test SPECIMEN NUMBER: code = 81791) [id number] VAGINAL PATHOGENS DNA [id number] 00:00:00 Test Item Value Reference Range Interpretation Comments RAMESH SPECIES (test code = 69379) POSITIVE G. VAGINALIS (test code = 47488) POSITIVE T. VAGINALIS (test code = 06309) NEGATIVE VAGINAL PATHOGENS DNA [id number] 00:00:00 Test Item Value Reference Range Interpretation Comments RAMESH SPECIES (test code = 93694) POSITIVE G. VAGINALIS (test code = 58476) POSITIVE T. VAGINALIS (test code = 60065) NEGATIVE VAGINAL PATHOGENS DNA [id number] 00:00:00 Test Item Value Reference Range Interpretation Comments RAMESH SPECIES (test code = 48715) POSITIVE G. VAGINALIS (test code = 23222) POSITIVE T. VAGINALIS (test code = 93378) NEGATIVE VAGINAL PATHOGENS DNA [id number] 00:00:00 Test Item Value Reference Range Interpretation Comments RAMESH SPECIES (test code = 96293) POSITIVE G. VAGINALIS (test code = 98309) POSITIVE T. VAGINALIS (test code = 19740) NEGATIVE VAGINAL PATHOGENS DNA [id number] 00:00:00 Test Item Value Reference Range Interpretation Comments RAMESH SPECIES (test code = 83171) POSITIVE G. VAGINALIS (test code = 45953) POSITIVE T. VAGINALIS (test code = 17835) NEGATIVE VAGINAL PATHOGENS DNA [id number] 00:00:00 Test Item Value Reference Range Interpretation Comments RAMESH SPECIES (test code = 14875) POSITIVE G. VAGINALIS (test code = 80582) POSITIVE T. VAGINALIS (test code = 55047) NEGATIVE VAGINAL PATHOGENS DNA [id number] 00:00:00 Test Item Value Reference Range Interpretation Comments RAMESH SPECIES (test code = 37514) POSITIVE G. VAGINALIS (test code = 67741) POSITIVE T. VAGINALIS (test code = 56449) NEGATIVE VAGINAL PATHOGENS DNA [id number] 00:00:00 Test Item Value Reference Range Interpretation Comments RAMESH SPECIES (test code = 47503) POSITIVE G. VAGINALIS (test code = 48384) POSITIVE T. VAGINALIS (test code = 30091) NEGATIVE VAGINAL PATHOGENS DNA [id number] 00:00:00 Test Item Value Reference Range Interpretation Comments RAMESH SPECIES (test code = 27141) POSITIVE G. VAGINALIS (test code = 16520) POSITIVE T. VAGINALIS (test code = 92594) NEGATIVE VAGINAL PATHOGENS DNA [id number] 00:00:00 Test Item Value Reference Range Interpretation Comments RAMESH SPECIES (test code = 40383) POSITIVE G. VAGINALIS (test code = 10807) POSITIVE T. VAGINALIS (test code = 37382) NEGATIVE VAGINAL PATHOGENS DNA [id number] 00:00:00 Test Item Value Reference Range Interpretation Comments RAMESH SPECIES (test code = 95964) POSITIVE G. VAGINALIS (test code = 91900) POSITIVE T. VAGINALIS (test code = 48398) NEGATIVE VAGINAL PATHOGENS DNA [id number] 00:00:00 Test Item Value Reference Range Interpretation Comments RAMESH SPECIES (test code = 65327) POSITIVE G. VAGINALIS (test code = 03892) POSITIVE T. VAGINALIS (test code = 75117) NEGATIVE VAGINAL PATHOGENS DNA [id number] 00:00:00 Test Item Value Reference Range Interpretation Comments RAMESH SPECIES (test code = 98026) POSITIVE G. VAGINALIS (test code = 09195) POSITIVE T. VAGINALIS (test code = 31860) NEGATIVE VAGINAL PATHOGENS DNA [id number] 00:00:00 Test Item Value Reference Range Interpretation Comments RAMESH SPECIES (test code = 66192) POSITIVE G. VAGINALIS (test code = 48130) POSITIVE T. VAGINALIS (test code = 34767) NEGATIVE VAGINAL PATHOGENS DNA [id number] 00:00:00 Test Item Value Reference Range Interpretation Comments RAMESH SPECIES (test code = 99107) POSITIVE G. VAGINALIS (test code = 29969) POSITIVE T. VAGINALIS (test code = 19009) NEGATIVE VAGINAL PATHOGENS DNA [id number] 00:00:00 Test Item Value Reference Range Interpretation Comments RAMESH SPECIES (test code = 37193) POSITIVE G. VAGINALIS (test code = 21348) POSITIVE T. VAGINALIS (test code = 23684) NEGATIVE VAGINAL PATHOGENS DNA [id number] 00:00:00 Test Item Value Reference Range Interpretation Comments RAMESH SPECIES (test code = 08696) POSITIVE G. VAGINALIS (test code = 07734) POSITIVE T. VAGINALIS (test code = 28293) NEGATIVE VAGINAL PATHOGENS DNA [id number] 00:00:00 Test Item Value Reference Range Interpretation Comments RAMESH SPECIES (test code = ) POSITIVE G. VAGINALIS (test code = 77411) POSITIVE T. VAGINALIS (test code = 13967) NEGATIVE VAGINAL PATHOGENS DNA [id number] 00:00:00 Test Item Value Reference Range Interpretation Comments RAMESH SPECIES (test code = 79535) POSITIVE G. VAGINALIS (test code = 59167) POSITIVE T. VAGINALIS (test code = 46919) NEGATIVE VAGINAL PATHOGENS DNA [id number] 00:00:00 Test Item Value Reference Range Interpretation Comments RAMESH SPECIES (test code = 23785) POSITIVE G. VAGINALIS (test code = 14649) POSITIVE T. VAGINALIS (test code = 07740) NEGATIVE VAGINAL PATHOGENS DNA [id number] 00:00:00 Test Item Value Reference Range Interpretation Comments RAMESH SPECIES (test code = ) POSITIVE G. VAGINALIS (test code = 89618) POSITIVE T. VAGINALIS (test code = 19720) NEGATIVE CULTURE, [id number] 00:00:00 Test Item Value Reference Range Interpretation Comments CULTURE, URINE (test SPECIMEN NUMBER: code = 76982) [id number] CULTURE, [id number] 00:00:00 Test Item Value Reference Range Interpretation Comments CULTURE, URINE (test SPECIMEN NUMBER: code = 63644) [id number] CULTURE, [id number] 00:00:00 Test Item Value Reference Range Interpretation Comments CULTURE, URINE (test SPECIMEN NUMBER: code = 78009) [id number] CULTURE, [id number] 00:00:00 Test Item Value Reference Range Interpretation Comments CULTURE, URINE (test SPECIMEN NUMBER: code = 02657) [id number] CULTURE, [id number] 00:00:00 Test Item Value Reference Range Interpretation Comments CULTURE, URINE (test SPECIMEN NUMBER: code = 09828) [id number] CULTURE, [id number] 00:00:00 Test Item Value Reference Range Interpretation Comments CULTURE, URINE (test SPECIMEN NUMBER: code = 39680) [id number] CULTURE, [id number] 00:00:00 Test Item Value Reference Range Interpretation Comments CULTURE, URINE (test SPECIMEN NUMBER: code = 24545) [id number] CULTURE, [id number] 00:00:00 Test Item Value Reference Range Interpretation Comments CULTURE, URINE (test SPECIMEN NUMBER: code = 29574) [id number] CULTURE, [id number] 00:00:00 Test Item Value Reference Range Interpretation Comments CULTURE, URINE (test SPECIMEN NUMBER: code = 12945) [id number] CULTURE, [id number] 00:00:00 Test Item Value Reference Range Interpretation Comments CULTURE, URINE (test SPECIMEN NUMBER: code = 64434) [id number] CULTURE, [id number] 00:00:00 Test Item Value Reference Range Interpretation Comments CULTURE, URINE (test SPECIMEN NUMBER: code = 30388) [id number] CULTURE, [id number] 00:00:00 Test Item Value Reference Range Interpretation Comments CULTURE, URINE (test SPECIMEN NUMBER: code = 87871) [id number] CULTURE, [id number] 00:00:00 Test Item Value Reference Range Interpretation Comments CULTURE, URINE (test SPECIMEN NUMBER: code = 09345) [id number] CULTURE, [id number] 00:00:00 Test Item Value Reference Range Interpretation Comments CULTURE, URINE (test SPECIMEN NUMBER: code = 00448) [id number] CULTURE, [id number] 00:00:00 Test Item Value Reference Range Interpretation Comments CULTURE, URINE (test SPECIMEN NUMBER: code = 02236) [id number] CULTURE, [id number] 00:00:00 Test Item Value Reference Range Interpretation Comments CULTURE, URINE (test SPECIMEN NUMBER: code = 74522) [id number] CULTURE, [id number] 00:00:00 Test Item Value Reference Range Interpretation Comments CULTURE, URINE (test SPECIMEN NUMBER: code = 14440) [id number] CULTURE, [id number] 00:00:00 Test Item Value Reference Range Interpretation Comments CULTURE, URINE (test SPECIMEN NUMBER: code = 40486) [id number] CULTURE, [id number] 00:00:00 Test Item Value Reference Range Interpretation Comments CULTURE, URINE (test SPECIMEN NUMBER: code = 89401) [id number] CULTURE, [id number] 00:00:00 Test Item Value Reference Range Interpretation Comments CULTURE, URINE (test SPECIMEN NUMBER: code = 69487) [id number] CULTURE, [id number] 00:00:00 Test Item Value Reference Range Interpretation Comments CULTURE, URINE (test SPECIMEN NUMBER: code = 71265) [id number] GC AND CHLAMYDIA, AMPLIFIED, [id number] 00:00:00 Test Item Value Reference Range Interpretation Comments GONORRHEA, TMA (test code = 74060) NEGATIVE CHLAMYDIA, TMA (test code = 23417) NEGATIVE GC AND CHLAMYDIA, AMPLIFIED, [id number] 00:00:00 Test Item Value Reference Range Interpretation Comments GONORRHEA, TMA (test code = 60756) NEGATIVE CHLAMYDIA, TMA (test code = 24850) NEGATIVE GC AND CHLAMYDIA, AMPLIFIED, [id number] 00:00:00 Test Item Value Reference Range Interpretation Comments GONORRHEA, TMA (test code = 82289) NEGATIVE CHLAMYDIA, TMA (test code = 23117) NEGATIVE GC AND CHLAMYDIA, AMPLIFIED, [id number] 00:00:00 Test Item Value Reference Range Interpretation Comments GONORRHEA, TMA (test code = 23256) NEGATIVE CHLAMYDIA, TMA (test code = 35455) NEGATIVE GC AND CHLAMYDIA, AMPLIFIED, [id number] 00:00:00 Test Item Value Reference Range Interpretation Comments GONORRHEA, TMA (test code = 71383) NEGATIVE CHLAMYDIA, TMA (test code = 78442) NEGATIVE GC AND CHLAMYDIA, AMPLIFIED, [id number] 00:00:00 Test Item Value Reference Range Interpretation Comments GONORRHEA, TMA (test code = 92869) NEGATIVE CHLAMYDIA, TMA (test code = 48768) NEGATIVE GC AND CHLAMYDIA, AMPLIFIED, [id number] 00:00:00 Test Item Value Reference Range Interpretation Comments GONORRHEA, TMA (test code = 50554) NEGATIVE CHLAMYDIA, TMA (test code = 53135) NEGATIVE GC AND CHLAMYDIA, AMPLIFIED, [id number] 00:00:00 Test Item Value Reference Range Interpretation Comments GONORRHEA, TMA (test code = 73815) NEGATIVE CHLAMYDIA, TMA (test code = 30217) NEGATIVE GC AND CHLAMYDIA, AMPLIFIED, [id number] 00:00:00 Test Item Value Reference Range Interpretation Comments GONORRHEA, TMA (test code = 44502) NEGATIVE CHLAMYDIA, TMA (test code = 42391) NEGATIVE GC AND CHLAMYDIA, AMPLIFIED, [id number] 00:00:00 Test Item Value Reference Range Interpretation Comments GONORRHEA, TMA (test code = 82986) NEGATIVE CHLAMYDIA, TMA (test code = 41157) NEGATIVE GC AND CHLAMYDIA, AMPLIFIED, [id number] 00:00:00 Test Item Value Reference Range Interpretation Comments GONORRHEA, TMA (test code = 81500) NEGATIVE CHLAMYDIA, TMA (test code = 96460) NEGATIVE GC AND CHLAMYDIA, AMPLIFIED, [id number] 00:00:00 Test Item Value Reference Range Interpretation Comments GONORRHEA, TMA (test code = 69485) NEGATIVE CHLAMYDIA, TMA (test code = 50447) NEGATIVE GC AND CHLAMYDIA, AMPLIFIED, [id number] 00:00:00 Test Item Value Reference Range Interpretation Comments GONORRHEA, TMA (test code = 52493) NEGATIVE CHLAMYDIA, TMA (test code = 88333) NEGATIVE GC AND CHLAMYDIA, AMPLIFIED, [id number] 00:00:00 Test Item Value Reference Range Interpretation Comments GONORRHEA, TMA (test code = 11297) NEGATIVE CHLAMYDIA, TMA (test code = 33034) NEGATIVE GC AND CHLAMYDIA, AMPLIFIED, [id number] 00:00:00 Test Item Value Reference Range Interpretation Comments GONORRHEA, TMA (test code = 24259) NEGATIVE CHLAMYDIA, TMA (test code = 58503) NEGATIVE GC AND CHLAMYDIA, AMPLIFIED, [id number] 00:00:00 Test Item Value Reference Range Interpretation Comments GONORRHEA, TMA (test code = 14309) NEGATIVE CHLAMYDIA, TMA (test code = 62942) NEGATIVE GC AND CHLAMYDIA, AMPLIFIED, [id number] 00:00:00 Test Item Value Reference Range Interpretation Comments GONORRHEA, TMA (test code = 96133) NEGATIVE CHLAMYDIA, TMA (test code = 87429) NEGATIVE GC AND CHLAMYDIA, AMPLIFIED, [id number] 00:00:00 Test Item Value Reference Range Interpretation Comments GONORRHEA, TMA (test code = 04546) NEGATIVE CHLAMYDIA, TMA (test code = 00901) NEGATIVE GC AND CHLAMYDIA, AMPLIFIED, [id number] 00:00:00 Test Item Value Reference Range Interpretation Comments GONORRHEA, TMA (test code = 89494) NEGATIVE CHLAMYDIA, TMA (test code = 08837) NEGATIVE GC AND CHLAMYDIA, AMPLIFIED, [id number] 00:00:00 Test Item Value Reference Range Interpretation Comments GONORRHEA, TMA (test code = 69600) NEGATIVE CHLAMYDIA, TMA (test code = 27157) NEGATIVE GC AND CHLAMYDIA, AMPLIFIED, [id number] 00:00:00 Test Item Value Reference Range Interpretation Comments GONORRHEA, TMA (test code = 61322) NEGATIVE CHLAMYDIA, TMA (test code = 61419) NEGATIVE VAGINAL PATHOGENS DNA [id number] 00:00:00 Test Item Value Reference Range Interpretation Comments RAMESH SPECIES (test code = 84745) NEGATIVE G. VAGINALIS (test code = 55267) POSITIVE T. VAGINALIS (test code = 13208) NEGATIVE VAGINAL PATHOGENS DNA [id number] 00:00:00 Test Item Value Reference Range Interpretation Comments RAMESH SPECIES (test code = 48319) NEGATIVE G. VAGINALIS (test code = 85452) POSITIVE T. VAGINALIS (test code = 39381) NEGATIVE VAGINAL PATHOGENS DNA [id number] 00:00:00 Test Item Value Reference Range Interpretation Comments RAMESH SPECIES (test code = 01427) NEGATIVE G. VAGINALIS (test code = 42893) POSITIVE T. VAGINALIS (test code = 22889) NEGATIVE VAGINAL PATHOGENS DNA [id number] 00:00:00 Test Item Value Reference Range Interpretation Comments RAMESH SPECIES (test code = 08061) NEGATIVE G. VAGINALIS (test code = 54315) POSITIVE T. VAGINALIS (test code = 27703) NEGATIVE VAGINAL PATHOGENS DNA [id number] 00:00:00 Test Item Value Reference Range Interpretation Comments RAMESH SPECIES (test code = 18116) NEGATIVE G. VAGINALIS (test code = 81162) POSITIVE T. VAGINALIS (test code = 80006) NEGATIVE VAGINAL PATHOGENS DNA [id number] 00:00:00 Test Item Value Reference Range Interpretation Comments RAMESH SPECIES (test code = 12975) NEGATIVE G. VAGINALIS (test code = 78818) POSITIVE T. VAGINALIS (test code = 47058) NEGATIVE VAGINAL PATHOGENS DNA [id number] 00:00:00 Test Item Value Reference Range Interpretation Comments RAMESH SPECIES (test code = 22706) NEGATIVE G. VAGINALIS (test code = 84274) POSITIVE T. VAGINALIS (test code = 94115) NEGATIVE VAGINAL PATHOGENS DNA [id number] 00:00:00 Test Item Value Reference Range Interpretation Comments RAMESH SPECIES (test code = 59734) NEGATIVE G. VAGINALIS (test code = 31454) POSITIVE T. VAGINALIS (test code = 62334) NEGATIVE VAGINAL PATHOGENS DNA [id number] 00:00:00 Test Item Value Reference Range Interpretation Comments RAMESH SPECIES (test code = 29522) NEGATIVE G. VAGINALIS (test code = 29521) POSITIVE T. VAGINALIS (test code = 33365) NEGATIVE VAGINAL PATHOGENS DNA [id number] 00:00:00 Test Item Value Reference Range Interpretation Comments RAMESH SPECIES (test code = 41858) NEGATIVE G. VAGINALIS (test code = 50858) POSITIVE T. VAGINALIS (test code = 28890) NEGATIVE VAGINAL PATHOGENS DNA [id number] 00:00:00 Test Item Value Reference Range Interpretation Comments RAMESH SPECIES (test code = 20964) NEGATIVE G. VAGINALIS (test code = 75353) POSITIVE T. VAGINALIS (test code = 77918) NEGATIVE VAGINAL PATHOGENS DNA [id number] 00:00:00 Test Item Value Reference Range Interpretation Comments RAMESH SPECIES (test code = 45404) NEGATIVE G. VAGINALIS (test code = 45304) POSITIVE T. VAGINALIS (test code = 73227) NEGATIVE VAGINAL PATHOGENS DNA [id number] 00:00:00 Test Item Value Reference Range Interpretation Comments RAMESH SPECIES (test code = 63361) NEGATIVE G. VAGINALIS (test code = 52128) POSITIVE T. VAGINALIS (test code = 21879) NEGATIVE VAGINAL PATHOGENS DNA [id number] 00:00:00 Test Item Value Reference Range Interpretation Comments RAMESH SPECIES (test code = 65693) NEGATIVE G. VAGINALIS (test code = 14943) POSITIVE T. VAGINALIS (test code = 42216) NEGATIVE VAGINAL PATHOGENS DNA [id number] 00:00:00 Test Item Value Reference Range Interpretation Comments RAMESH SPECIES (test code = 92646) NEGATIVE G. VAGINALIS (test code = 46585) POSITIVE T. VAGINALIS (test code = 81605) NEGATIVE VAGINAL PATHOGENS DNA [id number] 00:00:00 Test Item Value Reference Range Interpretation Comments RAMESH SPECIES (test code = 35355) NEGATIVE G. VAGINALIS (test code = 15513) POSITIVE T. VAGINALIS (test code = 34119) NEGATIVE VAGINAL PATHOGENS DNA [id number] 00:00:00 Test Item Value Reference Range Interpretation Comments RAMESH SPECIES (test code = 36708) NEGATIVE G. VAGINALIS (test code = 69763) POSITIVE T. VAGINALIS (test code = ) NEGATIVE VAGINAL PATHOGENS DNA [id number] 00:00:00 Test Item Value Reference Range Interpretation Comments RAMESH SPECIES (test code = 09501) NEGATIVE G. VAGINALIS (test code = 64835) POSITIVE T. VAGINALIS (test code = 84611) NEGATIVE VAGINAL PATHOGENS DNA [id number] 00:00:00 Test Item Value Reference Range Interpretation Comments RAMESH SPECIES (test code = 34864) NEGATIVE G. VAGINALIS (test code = 76280) POSITIVE T. VAGINALIS (test code = 14225) NEGATIVE VAGINAL PATHOGENS DNA [id number] 00:00:00 Test Item Value Reference Range Interpretation Comments RAMESH SPECIES (test code = 33269) NEGATIVE G. VAGINALIS (test code = 30839) POSITIVE T. VAGINALIS (test code = 28949) NEGATIVE VAGINAL PATHOGENS DNA [id number] 00:00:00 Test Item Value Reference Range Interpretation Comments RAMESH SPECIES (test code = ) NEGATIVE G. VAGINALIS (test code = 57714) POSITIVE T. VAGINALIS (test code = 73557) NEGATIVE GC AND CHLAMYDIA, AMPLIFIED, [id number] 00:00:00 Test Item Value Reference Range Interpretation Comments GONORRHEA, TMA (test code = 31885) NEGATIVE CHLAMYDIA, TMA (test code = 18959) NEGATIVE GC AND CHLAMYDIA, AMPLIFIED, [id number] 00:00:00 Test Item Value Reference Range Interpretation Comments GONORRHEA, TMA (test code = 24770) NEGATIVE CHLAMYDIA, TMA (test code = 73348) NEGATIVE GC AND CHLAMYDIA, AMPLIFIED, [id number] 00:00:00 Test Item Value Reference Range Interpretation Comments GONORRHEA, TMA (test code = 85741) NEGATIVE CHLAMYDIA, TMA (test code = 96477) NEGATIVE GC AND CHLAMYDIA, AMPLIFIED, [id number] 00:00:00 Test Item Value Reference Range Interpretation Comments GONORRHEA, TMA (test code = 91009) NEGATIVE CHLAMYDIA, TMA (test code = 46437) NEGATIVE GC AND CHLAMYDIA, AMPLIFIED, [id number] 00:00:00 Test Item Value Reference Range Interpretation Comments GONORRHEA, TMA (test code = 47774) NEGATIVE CHLAMYDIA, TMA (test code = 89050) NEGATIVE GC AND CHLAMYDIA, AMPLIFIED, [id number] 00:00:00 Test Item Value Reference Range Interpretation Comments GONORRHEA, TMA (test code = 47679) NEGATIVE CHLAMYDIA, TMA (test code = 59624) NEGATIVE GC AND CHLAMYDIA, AMPLIFIED, [id number] 00:00:00 Test Item Value Reference Range Interpretation Comments GONORRHEA, TMA (test code = 60417) NEGATIVE CHLAMYDIA, TMA (test code = 81072) NEGATIVE GC AND CHLAMYDIA, AMPLIFIED, [id number] 00:00:00 Test Item Value Reference Range Interpretation Comments GONORRHEA, TMA (test code = 30221) NEGATIVE CHLAMYDIA, TMA (test code = 25550) NEGATIVE GC AND CHLAMYDIA, AMPLIFIED, [id number] 00:00:00 Test Item Value Reference Range Interpretation Comments GONORRHEA, TMA (test code = 29354) NEGATIVE CHLAMYDIA, TMA (test code = 35753) NEGATIVE GC AND CHLAMYDIA, AMPLIFIED, [id number] 00:00:00 Test Item Value Reference Range Interpretation Comments GONORRHEA, TMA (test code = 89887) NEGATIVE CHLAMYDIA, TMA (test code = 21508) NEGATIVE GC AND CHLAMYDIA, AMPLIFIED, [id number] 00:00:00 Test Item Value Reference Range Interpretation Comments GONORRHEA, TMA (test code = 59126) NEGATIVE CHLAMYDIA, TMA (test code = 64719) NEGATIVE GC AND CHLAMYDIA, AMPLIFIED, [id number] 00:00:00 Test Item Value Reference Range Interpretation Comments GONORRHEA, TMA (test code = 54270) NEGATIVE CHLAMYDIA, TMA (test code = 29283) NEGATIVE GC AND CHLAMYDIA, AMPLIFIED, [id number] 00:00:00 Test Item Value Reference Range Interpretation Comments GONORRHEA, TMA (test code = 71925) NEGATIVE CHLAMYDIA, TMA (test code = 83339) NEGATIVE GC AND CHLAMYDIA, AMPLIFIED, [id number] 00:00:00 Test Item Value Reference Range Interpretation Comments GONORRHEA, TMA (test code = 34729) NEGATIVE CHLAMYDIA, TMA (test code = 94321) NEGATIVE GC AND CHLAMYDIA, AMPLIFIED, [id number] 00:00:00 Test Item Value Reference Range Interpretation Comments GONORRHEA, TMA (test code = 32955) NEGATIVE CHLAMYDIA, TMA (test code = 20158) NEGATIVE GC AND CHLAMYDIA, AMPLIFIED, [id number] 00:00:00 Test Item Value Reference Range Interpretation Comments GONORRHEA, TMA (test code = 76551) NEGATIVE CHLAMYDIA, TMA (test code = 47993) NEGATIVE GC AND CHLAMYDIA, AMPLIFIED, [id number] 00:00:00 Test Item Value Reference Range Interpretation Comments GONORRHEA, TMA (test code = 84229) NEGATIVE CHLAMYDIA, TMA (test code = 42626) NEGATIVE GC AND CHLAMYDIA, AMPLIFIED, [id number] 00:00:00 Test Item Value Reference Range Interpretation Comments GONORRHEA, TMA (test code = 41456) NEGATIVE CHLAMYDIA, TMA (test code = 41994) NEGATIVE GC AND CHLAMYDIA, AMPLIFIED, [id number] 00:00:00 Test Item Value Reference Range Interpretation Comments GONORRHEA, TMA (test code = 23017) NEGATIVE CHLAMYDIA, TMA (test code = 82619) NEGATIVE GC AND CHLAMYDIA, AMPLIFIED, [id number] 00:00:00 Test Item Value Reference Range Interpretation Comments GONORRHEA, TMA (test code = 75607) NEGATIVE CHLAMYDIA, TMA (test code = 06415) NEGATIVE GC AND CHLAMYDIA, AMPLIFIED, [id number] 00:00:00 Test Item Value Reference Range Interpretation Comments GONORRHEA, TMA (test code = 56716) NEGATIVE CHLAMYDIA, TMA (test code = 42436) NEGATIVE CULTURE, [id number] 00:00:00 Test Item Value Reference Range Interpretation Comments CULTURE, URINE (test SPECIMEN NUMBER: code = 54766) [id number] CULTURE, [id number] 00:00:00 Test Item Value Reference Range Interpretation Comments CULTURE, URINE (test SPECIMEN NUMBER: code = 71650) [id number] CULTURE, [id number] 00:00:00 Test Item Value Reference Range Interpretation Comments CULTURE, URINE (test SPECIMEN NUMBER: code = 63027) [id number] CULTURE, [id number] 00:00:00 Test Item Value Reference Range Interpretation Comments CULTURE, URINE (test SPECIMEN NUMBER: code = 29287) [id number] CULTURE, [id number] 00:00:00 Test Item Value Reference Range Interpretation Comments CULTURE, URINE (test SPECIMEN NUMBER: code = 24364) [id number] CULTURE, [id number] 00:00:00 Test Item Value Reference Range Interpretation Comments CULTURE, URINE (test SPECIMEN NUMBER: code = 59761) [id number] CULTURE, [id number] 00:00:00 Test Item Value Reference Range Interpretation Comments CULTURE, URINE (test SPECIMEN NUMBER: code = 37646) [id number] CULTURE, [id number] 00:00:00 Test Item Value Reference Range Interpretation Comments CULTURE, URINE (test SPECIMEN NUMBER: code = 05211) [id number] CULTURE, [id number] 00:00:00 Test Item Value Reference Range Interpretation Comments CULTURE, URINE (test SPECIMEN NUMBER: code = 78665) [id number] CULTURE, [id number] 00:00:00 Test Item Value Reference Range Interpretation Comments CULTURE, URINE (test SPECIMEN NUMBER: code = 76594) [id number] CULTURE, [id number] 00:00:00 Test Item Value Reference Range Interpretation Comments CULTURE, URINE (test SPECIMEN NUMBER: code = 35910) [id number] CULTURE, [id number] 00:00:00 Test Item Value Reference Range Interpretation Comments CULTURE, URINE (test SPECIMEN NUMBER: code = 70627) [id number] CULTURE, [id number] 00:00:00 Test Item Value Reference Range Interpretation Comments CULTURE, URINE (test SPECIMEN NUMBER: code = 41526) [id number] CULTURE, [id number] 00:00:00 Test Item Value Reference Range Interpretation Comments CULTURE, URINE (test SPECIMEN NUMBER: code = 29930) [id number] CULTURE, [id number] 00:00:00 Test Item Value Reference Range Interpretation Comments CULTURE, URINE (test SPECIMEN NUMBER: code = 18011) [id number] CULTURE, [id number] 00:00:00 Test Item Value Reference Range Interpretation Comments CULTURE, URINE (test SPECIMEN NUMBER: code = 30009) [id number] CULTURE, [id number] 00:00:00 Test Item Value Reference Range Interpretation Comments CULTURE, URINE (test SPECIMEN NUMBER: code = 39188) [id number] CULTURE, [id number] 00:00:00 Test Item Value Reference Range Interpretation Comments CULTURE, URINE (test SPECIMEN NUMBER: code = 18230) [id number] CULTURE, [id number] 00:00:00 Test Item Value Reference Range Interpretation Comments CULTURE, URINE (test SPECIMEN NUMBER: code = 79247) [id number] CULTURE, [id number] 00:00:00 Test Item Value Reference Range Interpretation Comments CULTURE, URINE (test SPECIMEN NUMBER: code = 19810) [id number] CULTURE, [id number] 00:00:00 Test Item Value Reference Range Interpretation Comments CULTURE, URINE (test SPECIMEN NUMBER: code = 00139) [id number] VAGINAL PATHOGENS DNA [id number] 00:00:00 Test Item Value Reference Range Interpretation Comments RAMESH SPECIES (test code = 55512) NEGATIVE G. VAGINALIS (test code = 35860) POSITIVE T. VAGINALIS (test code = 09218) NEGATIVE VAGINAL PATHOGENS DNA [id number] 00:00:00 Test Item Value Reference Range Interpretation Comments RAMESH SPECIES (test code = 02551) NEGATIVE G. VAGINALIS (test code = 45786) POSITIVE T. VAGINALIS (test code = 35689) NEGATIVE VAGINAL PATHOGENS DNA [id number] 00:00:00 Test Item Value Reference Range Interpretation Comments RAMESH SPECIES (test code = 29742) NEGATIVE G. VAGINALIS (test code = 47490) POSITIVE T. VAGINALIS (test code = 63808) NEGATIVE VAGINAL PATHOGENS DNA [id number] 00:00:00 Test Item Value Reference Range Interpretation Comments RAMESH SPECIES (test code = 85919) NEGATIVE G. VAGINALIS (test code = 94408) POSITIVE T. VAGINALIS (test code = 46146) NEGATIVE VAGINAL PATHOGENS DNA [id number] 00:00:00 Test Item Value Reference Range Interpretation Comments RAMESH SPECIES (test code = 11858) NEGATIVE G. VAGINALIS (test code = 24117) POSITIVE T. VAGINALIS (test code = 67530) NEGATIVE VAGINAL PATHOGENS DNA [id number] 00:00:00 Test Item Value Reference Range Interpretation Comments RAMESH SPECIES (test code = 96685) NEGATIVE G. VAGINALIS (test code = 96480) POSITIVE T. VAGINALIS (test code = 07499) NEGATIVE VAGINAL PATHOGENS DNA [id number] 00:00:00 Test Item Value Reference Range Interpretation Comments RAMESH SPECIES (test code = 27686) NEGATIVE G. VAGINALIS (test code = 92351) POSITIVE T. VAGINALIS (test code = 45492) NEGATIVE VAGINAL PATHOGENS DNA [id number] 00:00:00 Test Item Value Reference Range Interpretation Comments RAMESH SPECIES (test code = 51734) NEGATIVE G. VAGINALIS (test code = 95496) POSITIVE T. VAGINALIS (test code = 18450) NEGATIVE VAGINAL PATHOGENS DNA [id number] 00:00:00 Test Item Value Reference Range Interpretation Comments RAMESH SPECIES (test code = 79961) NEGATIVE G. VAGINALIS (test code = 68306) POSITIVE T. VAGINALIS (test code = 00463) NEGATIVE VAGINAL PATHOGENS DNA [id number] 00:00:00 Test Item Value Reference Range Interpretation Comments RAMESH SPECIES (test code = 78892) NEGATIVE G. VAGINALIS (test code = 67285) POSITIVE T. VAGINALIS (test code = 72344) NEGATIVE VAGINAL PATHOGENS DNA [id number] 00:00:00 Test Item Value Reference Range Interpretation Comments RAMESH SPECIES (test code = 71092) NEGATIVE G. VAGINALIS (test code = 14500) POSITIVE T. VAGINALIS (test code = 21280) NEGATIVE VAGINAL PATHOGENS DNA [id number] 00:00:00 Test Item Value Reference Range Interpretation Comments RAMESH SPECIES (test code = 33885) NEGATIVE G. VAGINALIS (test code = 33602) POSITIVE T. VAGINALIS (test code = 67817) NEGATIVE VAGINAL PATHOGENS DNA [id number] 00:00:00 Test Item Value Reference Range Interpretation Comments RAMESH SPECIES (test code = 22223) NEGATIVE G. VAGINALIS (test code = 01345) POSITIVE T. VAGINALIS (test code = 40734) NEGATIVE VAGINAL PATHOGENS DNA [id number] 00:00:00 Test Item Value Reference Range Interpretation Comments RAMESH SPECIES (test code = 32164) NEGATIVE G. VAGINALIS (test code = 26420) POSITIVE T. VAGINALIS (test code = 98676) NEGATIVE VAGINAL PATHOGENS DNA [id number] 00:00:00 Test Item Value Reference Range Interpretation Comments RAMESH SPECIES (test code = 18864) NEGATIVE G. VAGINALIS (test code = 18986) POSITIVE T. VAGINALIS (test code = 82043) NEGATIVE VAGINAL PATHOGENS DNA [id number] 00:00:00 Test Item Value Reference Range Interpretation Comments RAMESH SPECIES (test code = 75089) NEGATIVE G. VAGINALIS (test code = 48268) POSITIVE T. VAGINALIS (test code = ) NEGATIVE VAGINAL PATHOGENS DNA [id number] 00:00:00 Test Item Value Reference Range Interpretation Comments RAMESH SPECIES (test code = 30261) NEGATIVE G. VAGINALIS (test code = 01032) POSITIVE T. VAGINALIS (test code = 11292) NEGATIVE VAGINAL PATHOGENS DNA [id number] 00:00:00 Test Item Value Reference Range Interpretation Comments RAMESH SPECIES (test code = 06082) NEGATIVE G. VAGINALIS (test code = 25239) POSITIVE T. VAGINALIS (test code = 60844) NEGATIVE VAGINAL PATHOGENS DNA [id number] 00:00:00 Test Item Value Reference Range Interpretation Comments RAMESH SPECIES (test code = 51377) NEGATIVE G. VAGINALIS (test code = 58617) POSITIVE T. VAGINALIS (test code = 13636) NEGATIVE VAGINAL PATHOGENS DNA [id number] 00:00:00 Test Item Value Reference Range Interpretation Comments RAMESH SPECIES (test code = 67327) NEGATIVE G. VAGINALIS (test code = 62229) POSITIVE T. VAGINALIS (test code = 26492) NEGATIVE VAGINAL PATHOGENS DNA [id number] 00:00:00 Test Item Value Reference Range Interpretation Comments RAMESH SPECIES (test code = 92151) NEGATIVE G. VAGINALIS (test code = 58566) POSITIVE T. VAGINALIS (test code = 22716) NEGATIVE CULTURE, HERPES [id number] 00:00:00 Test Item Value Reference Range Interpretation Comments SPECIMEN SOURCE (test code TEST NOT PERFORMED = 82719) HERPES CULTURE (test code TEST NOT PERFORMED = 3533) CULTURE, HERPES [id number] 00:00:00 Test Item Value Reference Range Interpretation Comments SPECIMEN SOURCE (test code TEST NOT PERFORMED = 52331) HERPES CULTURE (test code TEST NOT PERFORMED = 3533) CULTURE, HERPES [id number] 00:00:00 Test Item Value Reference Range Interpretation Comments SPECIMEN SOURCE (test code TEST NOT PERFORMED = 06964) HERPES CULTURE (test code TEST NOT PERFORMED = 3533) CULTURE, HERPES [id number] 00:00:00 Test Item Value Reference Range Interpretation Comments SPECIMEN SOURCE (test code TEST NOT PERFORMED = 85771) HERPES CULTURE (test code TEST NOT PERFORMED = 3533) CULTURE, HERPES [id number] 00:00:00 Test Item Value Reference Range Interpretation Comments SPECIMEN SOURCE (test code TEST NOT PERFORMED = 16803) HERPES CULTURE (test code TEST NOT PERFORMED = 3533) CULTURE, HERPES [id number] 00:00:00 Test Item Value Reference Range Interpretation Comments SPECIMEN SOURCE (test code TEST NOT PERFORMED = 57635) HERPES CULTURE (test code TEST NOT PERFORMED = 3533) CULTURE, HERPES [id number] 00:00:00 Test Item Value Reference Range Interpretation Comments SPECIMEN SOURCE (test code TEST NOT PERFORMED = 61455) HERPES CULTURE (test code TEST NOT PERFORMED = 3533) CULTURE, HERPES [id number] 00:00:00 Test Item Value Reference Range Interpretation Comments SPECIMEN SOURCE (test code TEST NOT PERFORMED = 47497) HERPES CULTURE (test code TEST NOT PERFORMED = 3533) CULTURE, HERPES [id number] 00:00:00 Test Item Value Reference Range Interpretation Comments SPECIMEN SOURCE (test code TEST NOT PERFORMED = 50022) HERPES CULTURE (test code TEST NOT PERFORMED = 3533) CULTURE, HERPES [id number] 00:00:00 Test Item Value Reference Range Interpretation Comments SPECIMEN SOURCE (test code TEST NOT PERFORMED = 55900) HERPES CULTURE (test code TEST NOT PERFORMED = 3533) CULTURE, HERPES [id number] 00:00:00 Test Item Value Reference Range Interpretation Comments SPECIMEN SOURCE (test code TEST NOT PERFORMED = 01365) HERPES CULTURE (test code TEST NOT PERFORMED = 3533) CULTURE, HERPES [id number] 00:00:00 Test Item Value Reference Range Interpretation Comments SPECIMEN SOURCE (test code TEST NOT PERFORMED = 72804) HERPES CULTURE (test code TEST NOT PERFORMED = 3533) CULTURE, HERPES [id number] 00:00:00 Test Item Value Reference Range Interpretation Comments SPECIMEN SOURCE (test code TEST NOT PERFORMED = 07578) HERPES CULTURE (test code TEST NOT PERFORMED = 3533) CULTURE, HERPES [id number] 00:00:00 Test Item Value Reference Range Interpretation Comments SPECIMEN SOURCE (test code TEST NOT PERFORMED = 06352) HERPES CULTURE (test code TEST NOT PERFORMED = 3533) CULTURE, HERPES [id number] 00:00:00 Test Item Value Reference Range Interpretation Comments SPECIMEN SOURCE (test code TEST NOT PERFORMED = 86247) HERPES CULTURE (test code TEST NOT PERFORMED = 3533) CULTURE, HERPES [id number] 00:00:00 Test Item Value Reference Range Interpretation Comments SPECIMEN SOURCE (test code TEST NOT PERFORMED = 94012) HERPES CULTURE (test code TEST NOT PERFORMED = 3533) CULTURE, HERPES [id number] 00:00:00 Test Item Value Reference Range Interpretation Comments SPECIMEN SOURCE (test code TEST NOT PERFORMED = 61162) HERPES CULTURE (test code TEST NOT PERFORMED = 3533) CULTURE, HERPES [id number] 00:00:00 Test Item Value Reference Range Interpretation Comments SPECIMEN SOURCE (test code TEST NOT PERFORMED = 90619) HERPES CULTURE (test code TEST NOT PERFORMED = 3533) CULTURE, HERPES [id number] 00:00:00 Test Item Value Reference Range Interpretation Comments SPECIMEN SOURCE (test code TEST NOT PERFORMED = 08526) HERPES CULTURE (test code TEST NOT PERFORMED = 3533) CULTURE, HERPES [id number] 00:00:00 Test Item Value Reference Range Interpretation Comments SPECIMEN SOURCE (test code TEST NOT PERFORMED = 59256) HERPES CULTURE (test code TEST NOT PERFORMED = 3533) CULTURE, HERPES [id number] 00:00:00 Test Item Value Reference Range Interpretation Comments SPECIMEN SOURCE (test code TEST NOT PERFORMED = 56725) HERPES CULTURE (test code TEST NOT PERFORMED = 3533) GC AND CHLAMYDIA AMPLIFIED, [id number] 00:00:00 Test Item Value Reference Range Interpretation Comments GONORRHEA, TMA (test code = 58444) NEGATIVE CHLAMYDIA, TMA (test code = 54437) NEGATIVE GC AND CHLAMYDIA AMPLIFIED, [id number] 00:00:00 Test Item Value Reference Range Interpretation Comments GONORRHEA, TMA (test code = 61280) NEGATIVE CHLAMYDIA, TMA (test code = 44790) NEGATIVE PAP TEST, THINPREP, [id number] 00:00:00 Test Item Value Reference Range Interpretation Comments SOURCE: (test code = Cervical/Endocervical 8001) SLIDES: (test code = 1 8011) LMP: (test code = 8021) 10/10/2018 SPECIMEN ADEQUACY: (NOTE) (test code = 07045) INTERPRETATION: (test NILM/NO EPITH. code = 98217) ABNORMALITY;[place]: (test [place](ASCP) code = 8101) LOCATION: (test code = (NOTE) 33680) CPT: (test code = 8140) (NOTE) PAP TEST, THINPREP, [id number] 00:00:00 Test Item Value Reference Range Interpretation Comments SOURCE: (test code = Cervical/Endocervical 8001) SLIDES: (test code = 1 8011) LMP: (test code = 8021) 10/10/2018 SPECIMEN ADEQUACY: (NOTE) (test code = 14135) INTERPRETATION: (test NILM/NO EPITH. code = 05008) ABNORMALITY;[place]: (test RENAE CARCT(ASCP) code = 8101) LOCATION: (test code = (NOTE) 47056) CPT: (test code = 8140) (NOTE) HIV AB/AG COMBO RFLX [id number] 00:00:00 Test Item Value Reference Range Interpretation Comments HIV 1/2 4TH GEN, RFLX CONF (test NON-REACTIVE code = 3514) HIV AB/AG COMBO RFLX [id number] 00:00:00 Test Item Value Reference Range Interpretation Comments HIV 1/2 4TH GEN, RFLX CONF (test NON-REACTIVE code = 3514) HPV HIGH RISK WITH GENOTYPE, [id number] 00:00:00 Test Item Value Reference Range Interpretation Comments HPV HIGH RISK INTERP (test code = NEGATIVE 25017) HPV 16 (test code = 94507) NEGATIVE HPV 18 (test code = 51893) NEGATIVE HPV, HR, OTHER GENOTYPES (test code NEGATIVE = 39350) [id number] 00:00:00 Test Item Value Reference Range Interpretation Comments TSH, THIRD GENERATION (test code 2.250 UIU/ML = 2821) [id number] 00:00:00 Test Item Value Reference Range Interpretation Comments TSH, THIRD GENERATION (test code 2.250 UIU/ML = 2821) HPV HIGH RISK WITH GENOTYPE, [id number] 00:00:00 Test Item Value Reference Range Interpretation Comments HPV HIGH RISK INTERP (test code = NEGATIVE 58727) HPV 16 (test code = 55325) NEGATIVE HPV 18 (test code = 87843) NEGATIVE HPV, HR, OTHER GENOTYPES (test code NEGATIVE = 74945) [id number] 00:00:00 Test Item Value Reference Range Interpretation Comments TSH, THIRD GENERATION (test code 2.250 UIU/ML = 2821) GC AND CHLAMYDIA AMPLIFIED, [id number] 00:00:00 Test Item Value Reference Range Interpretation Comments GONORRHEA, TMA (test code = 47915) NEGATIVE CHLAMYDIA, TMA (test code = 05531) NEGATIVE GC AND CHLAMYDIA AMPLIFIED, [id number] 00:00:00 Test Item Value Reference Range Interpretation Comments GONORRHEA, TMA (test code = 42983) NEGATIVE CHLAMYDIA, TMA (test code = 73107) NEGATIVE PAP TEST, THINPREP, [id number] 00:00:00 Test Item Value Reference Range Interpretation Comments SOURCE: (test code = Cervical/Endocervical 8001) SLIDES: (test code = 1 8011) LMP: (test code = 8021) 10/10/2018 SPECIMEN ADEQUACY: (NOTE) (test code = 48916) INTERPRETATION: (test NILM/NO EPITH. code = 70649) ABNORMALITY;[place]: (test [place](ASCP) code = 8101) LOCATION: (test code = (NOTE) 44854) CPT: (test code = 8140) (NOTE) HIV AB/AG COMBO RFLX [id number] 00:00:00 Test Item Value Reference Range Interpretation Comments HIV 1/2 4TH GEN, RFLX CONF (test NON-REACTIVE code = 3514) PAP TEST, THINPREP, [id number] 00:00:00 Test Item Value Reference Range Interpretation Comments SOURCE: (test code = Cervical/Endocervical 8001) SLIDES: (test code = 1 8011) LMP: (test code = 8021) 10/10/2018 SPECIMEN ADEQUACY: (NOTE) (test code = 89934) INTERPRETATION: (test NILM/NO EPITH. code = 59738) ABNORMALITY;[place]: (test [place](ASCP) code = 8101) LOCATION: (test code = (NOTE) 44689) CPT: (test code = 8140) (NOTE) HIV AB/AG COMBO RFLX [id number] 00:00:00 Test Item Value Reference Range Interpretation Comments HIV 1/2 4TH GEN, RFLX CONF (test NON-REACTIVE code = 3514) HPV HIGH RISK WITH GENOTYPE, [id number] 00:00:00 Test Item Value Reference Range Interpretation Comments HPV HIGH RISK INTERP (test code = NEGATIVE 34274) HPV 16 (test code = 79731) NEGATIVE HPV 18 (test code = 08073) NEGATIVE HPV, HR, OTHER GENOTYPES (test code NEGATIVE = 67576) [id number] 00:00:00 Test Item Value Reference Range Interpretation Comments TSH, THIRD GENERATION (test code 2.250 UIU/ML = 2821) [id number] 00:00:00 Test Item Value Reference Range Interpretation Comments TSH, THIRD GENERATION (test code 2.250 UIU/ML = 2821) HPV HIGH RISK WITH GENOTYPE, [id number] 00:00:00 Test Item Value Reference Range Interpretation Comments HPV HIGH RISK INTERP (test code = NEGATIVE 56979) HPV 16 (test code = 92588) NEGATIVE HPV 18 (test code = 34654) NEGATIVE HPV, HR, OTHER GENOTYPES (test code NEGATIVE = 40706) [id number] 00:00:00 Test Item Value Reference Range Interpretation Comments TSH, THIRD GENERATION (test code 2.250 UIU/ML = 2821) GC AND CHLAMYDIA AMPLIFIED, [id number] 00:00:00 Test Item Value Reference Range Interpretation Comments GONORRHEA, TMA (test code = 47536) NEGATIVE CHLAMYDIA, TMA (test code = 23538) NEGATIVE GC AND CHLAMYDIA AMPLIFIED, [id number] 00:00:00 Test Item Value Reference Range Interpretation Comments GONORRHEA, TMA (test code = 25247) NEGATIVE CHLAMYDIA, TMA (test code = 93587) NEGATIVE HIV AB/AG COMBO RFLX [id number] 00:00:00 Test Item Value Reference Range Interpretation Comments HIV 1/2 4TH GEN, RFLX CONF (test NON-REACTIVE code = 3514) PAP TEST, THINPREP, [id number] 00:00:00 Test Item Value Reference Range Interpretation Comments SOURCE: (test code = Cervical/Endocervical 8001) SLIDES: (test code = 1 8011) LMP: (test code = 8021) 10/10/2018 SPECIMEN ADEQUACY: (NOTE) (test code = 05117) INTERPRETATION: (test NILM/NO EPITH. code = 60766) ABNORMALITY;[place]: (test RENAE CARCT(ASCP) code = 8101) LOCATION: (test code = (NOTE) 09773) CPT: (test code = 8140) (NOTE) PAP TEST, THINPREP, [id number] 00:00:00 Test Item Value Reference Range Interpretation Comments SOURCE: (test code = Cervical/Endocervical 8001) SLIDES: (test code = 1 8011) LMP: (test code = 8021) 10/10/2018 SPECIMEN ADEQUACY: (NOTE) (test code = 54273) INTERPRETATION: (test NILM/NO EPITH. code = 17830) ABNORMALITY;[place]: (test RENAE CARCT(ASCP) code = 8101) LOCATION: (test code = (NOTE) 70636) CPT: (test code = 8140) (NOTE) HIV AB/AG COMBO RFLX [id number] 00:00:00 Test Item Value Reference Range Interpretation Comments HIV 1/2 4TH GEN, RFLX CONF (test NON-REACTIVE code = 3514) [id number] 00:00:00 Test Item Value Reference Range Interpretation Comments TSH, THIRD GENERATION (test code 2.250 UIU/ML = 2821) [id number] 00:00:00 Test Item Value Reference Range Interpretation Comments TSH, THIRD GENERATION (test code 2.250 UIU/ML = 2821) [id number] 00:00:00 Test Item Value Reference Range Interpretation Comments TSH, THIRD GENERATION (test code 2.250 UIU/ML = 2821) HPV HIGH RISK WITH GENOTYPE, [id number] 00:00:00 Test Item Value Reference Range Interpretation Comments HPV HIGH RISK INTERP (test code = NEGATIVE 10353) HPV 16 (test code = 01547) NEGATIVE HPV 18 (test code = 75207) NEGATIVE HPV, HR, OTHER GENOTYPES (test code NEGATIVE = 01958) HPV HIGH RISK WITH GENOTYPE, [id number] 00:00:00 Test Item Value Reference Range Interpretation Comments HPV HIGH RISK INTERP (test code = NEGATIVE 01202) HPV 16 (test code = 20617) NEGATIVE HPV 18 (test code = 55598) NEGATIVE HPV, HR, OTHER GENOTYPES (test code NEGATIVE = 03088) GC AND CHLAMYDIA AMPLIFIED, [id number] 00:00:00 Test Item Value Reference Range Interpretation Comments GONORRHEA, TMA (test code = 09577) NEGATIVE CHLAMYDIA, TMA (test code = 48904) NEGATIVE GC AND CHLAMYDIA AMPLIFIED, [id number] 00:00:00 Test Item Value Reference Range Interpretation Comments GONORRHEA, TMA (test code = 21339) NEGATIVE CHLAMYDIA, TMA (test code = 04118) NEGATIVE HIV AB/AG COMBO RFLX [id number] 00:00:00 Test Item Value Reference Range Interpretation Comments HIV 1/2 4TH GEN, RFLX CONF (test NON-REACTIVE code = 3514) PAP TEST, THINPREP, [id number] 00:00:00 Test Item Value Reference Range Interpretation Comments SOURCE: (test code = Cervical/Endocervical 8001) SLIDES: (test code = 1 8011) LMP: (test code = 8021) 10/10/2018 SPECIMEN ADEQUACY: (NOTE) (test code = 96844) INTERPRETATION: (test NILM/NO EPITH. code = 71838) ABNORMALITY;[place]: (test [place](ASCP) code = 8101) LOCATION: (test code = (NOTE) 26405) CPT: (test code = 8140) (NOTE) PAP TEST, THINPREP, [id number] 00:00:00 Test Item Value Reference Range Interpretation Comments SOURCE: (test code = Cervical/Endocervical 8001) SLIDES: (test code = 1 8011) LMP: (test code = 8021) 10/10/2018 SPECIMEN ADEQUACY: (NOTE) (test code = 27627) INTERPRETATION: (test NILM/NO EPITH. code = 18597) ABNORMALITY;[place]: (test [place](ASCP) code = 8101) LOCATION: (test code = (NOTE) 04334) CPT: (test code = 8140) (NOTE) HIV AB/AG COMBO RFLX [id number] 00:00:00 Test Item Value Reference Range Interpretation Comments HIV 1/2 4TH GEN, RFLX CONF (test NON-REACTIVE code = 3514) HPV HIGH RISK WITH GENOTYPE, [id number] 00:00:00 Test Item Value Reference Range Interpretation Comments HPV HIGH RISK INTERP (test code = NEGATIVE 48709) HPV 16 (test code = 74132) NEGATIVE HPV 18 (test code = 38673) NEGATIVE HPV, HR, OTHER GENOTYPES (test code NEGATIVE = 46945) [id number] 00:00:00 Test Item Value Reference Range Interpretation Comments TSH, THIRD GENERATION (test code 2.250 UIU/ML = 2821) [id number] 00:00:00 Test Item Value Reference Range Interpretation Comments TSH, THIRD GENERATION (test code 2.250 UIU/ML = 2821) [id number] 00:00:00 Test Item Value Reference Range Interpretation Comments TSH, THIRD GENERATION (test code 2.250 UIU/ML = 2821) HPV HIGH RISK WITH GENOTYPE, [id number] 00:00:00 Test Item Value Reference Range Interpretation Comments HPV HIGH RISK INTERP (test code = NEGATIVE 25670) HPV 16 (test code = 67250) NEGATIVE HPV 18 (test code = 27574) NEGATIVE HPV, HR, OTHER GENOTYPES (test code NEGATIVE = 17082) GC AND CHLAMYDIA AMPLIFIED, [id number] 00:00:00 Test Item Value Reference Range Interpretation Comments GONORRHEA, TMA (test code = 93108) NEGATIVE CHLAMYDIA, TMA (test code = 70494) NEGATIVE GC AND CHLAMYDIA AMPLIFIED, [id number] 00:00:00 Test Item Value Reference Range Interpretation Comments GONORRHEA, TMA (test code = 93755) NEGATIVE CHLAMYDIA, TMA (test code = 05714) NEGATIVE HIV AB/AG COMBO RFLX [id number] 00:00:00 Test Item Value Reference Range Interpretation Comments HIV 1/2 4TH GEN, RFLX CONF (test NON-REACTIVE code = 3514) PAP TEST, THINPREP, [id number] 00:00:00 Test Item Value Reference Range Interpretation Comments SOURCE: (test code = Cervical/Endocervical 8001) SLIDES: (test code = 1 8011) LMP: (test code = 8021) 10/10/2018 SPECIMEN ADEQUACY: (NOTE) (test code = 54543) INTERPRETATION: (test NILM/NO EPITH. code = 75138) ABNORMALITY;[place]: (test [place](ASCP) code = 8101) LOCATION: (test code = (NOTE) 94920) CPT: (test code = 8140) (NOTE) PAP TEST, THINPREP, [id number] 00:00:00 Test Item Value Reference Range Interpretation Comments SOURCE: (test code = Cervical/Endocervical 8001) SLIDES: (test code = 1 8011) LMP: (test code = 8021) 10/10/2018 SPECIMEN ADEQUACY: (NOTE) (test code = 05492) INTERPRETATION: (test NILM/NO EPITH. code = 75629) ABNORMALITY;[place]: (test RENAE CAR,CT(ASCP) code = 8101) LOCATION: (test code = (NOTE) 36752) CPT: (test code = 8140) (NOTE) HIV AB/AG COMBO RFLX [id number] 00:00:00 Test Item Value Reference Range Interpretation Comments HIV 1/2 4TH GEN, RFLX CONF (test NON-REACTIVE code = 3514) [id number] 00:00:00 Test Item Value Reference Range Interpretation Comments TSH, THIRD GENERATION (test code 2.250 UIU/ML = 2821) [id number] 00:00:00 Test Item Value Reference Range Interpretation Comments TSH, THIRD GENERATION (test code 2.250 UIU/ML = 2821) HPV HIGH RISK WITH GENOTYPE, [id number] 00:00:00 Test Item Value Reference Range Interpretation Comments HPV HIGH RISK INTERP (test code = NEGATIVE 67338) HPV 16 (test code = 82820) NEGATIVE HPV 18 (test code = 55554) NEGATIVE HPV, HR, OTHER GENOTYPES (test code NEGATIVE = 85565) HPV HIGH RISK WITH GENOTYPE, [id number] 00:00:00 Test Item Value Reference Range Interpretation Comments HPV HIGH RISK INTERP (test code = NEGATIVE 53999) HPV 16 (test code = 40644) NEGATIVE HPV 18 (test code = 74403) NEGATIVE HPV, HR, OTHER GENOTYPES (test code NEGATIVE = 34165) [id number] 00:00:00 Test Item Value Reference Range Interpretation Comments TSH, THIRD GENERATION (test code 2.250 UIU/ML = 2821) GC AND CHLAMYDIA AMPLIFIED, [id number] 00:00:00 Test Item Value Reference Range Interpretation Comments GONORRHEA, TMA (test code = 61461) NEGATIVE CHLAMYDIA, TMA (test code = 52003) NEGATIVE GC AND CHLAMYDIA AMPLIFIED, [id number] 00:00:00 Test Item Value Reference Range Interpretation Comments GONORRHEA, TMA (test code = 70546) NEGATIVE CHLAMYDIA, TMA (test code = 95088) NEGATIVE PAP TEST, THINPREP, [id number] 00:00:00 Test Item Value Reference Range Interpretation Comments SOURCE: (test code = Cervical/Endocervical 8001) SLIDES: (test code = 1 8011) LMP: (test code = 8021) 10/10/2018 SPECIMEN ADEQUACY: (NOTE) (test code = 06831) INTERPRETATION: (test NILM/NO EPITH. code = 67322) ABNORMALITY;[place]: (test [place](ASCP) code = 8101) LOCATION: (test code = (NOTE) 95867) CPT: (test code = 8140) (NOTE) HIV AB/AG COMBO RFLX [id number] 00:00:00 Test Item Value Reference Range Interpretation Comments HIV 1/2 4TH GEN, RFLX CONF (test NON-REACTIVE code = 3514) HIV AB/AG COMBO RFLX [id number] 00:00:00 Test Item Value Reference Range Interpretation Comments HIV 1/2 4TH GEN, RFLX CONF (test NON-REACTIVE code = 3514) PAP TEST, THINPREP, [id number] 00:00:00 Test Item Value Reference Range Interpretation Comments SOURCE: (test code = Cervical/Endocervical 8001) SLIDES: (test code = 1 8011) LMP: (test code = 8021) 10/10/2018 SPECIMEN ADEQUACY: (NOTE) (test code = 98144) INTERPRETATION: (test NILM/NO EPITH. code = 95885) ABNORMALITY;[place]: (test [place](ASCP) code = 8101) LOCATION: (test code = (NOTE) 72602) CPT: (test code = 8140) (NOTE) HPV HIGH RISK WITH GENOTYPE, [id number] 00:00:00 Test Item Value Reference Range Interpretation Comments HPV HIGH RISK INTERP (test code = NEGATIVE 44118) HPV 16 (test code = 24144) NEGATIVE HPV 18 (test code = 76988) NEGATIVE HPV, HR, OTHER GENOTYPES (test code NEGATIVE = 97413) [id number] 00:00:00 Test Item Value Reference Range Interpretation Comments TSH, THIRD GENERATION (test code 2.250 UIU/ML = 2821) HPV HIGH RISK WITH GENOTYPE, [id number] 00:00:00 Test Item Value Reference Range Interpretation Comments HPV HIGH RISK INTERP (test code = NEGATIVE 62709) HPV 16 (test code = 97189) NEGATIVE HPV 18 (test code = 84330) NEGATIVE HPV, HR, OTHER GENOTYPES (test code NEGATIVE = 67407) [id number] 00:00:00 Test Item Value Reference Range Interpretation Comments TSH, THIRD GENERATION (test code 2.250 UIU/ML = 2821) [id number] 00:00:00 Test Item Value Reference Range Interpretation Comments TSH, THIRD GENERATION (test code 2.250 UIU/ML = 2821) GC AND CHLAMYDIA AMPLIFIED, [id number] 00:00:00 Test Item Value Reference Range Interpretation Comments GONORRHEA, TMA (test code = 86112) NEGATIVE CHLAMYDIA, TMA (test code = 39950) NEGATIVE GC AND CHLAMYDIA AMPLIFIED, [id number] 00:00:00 Test Item Value Reference Range Interpretation Comments GONORRHEA, TMA (test code = 21123) NEGATIVE CHLAMYDIA, TMA (test code = 90033) NEGATIVE PAP TEST, THINPREP, [id number] 00:00:00 Test Item Value Reference Range Interpretation Comments SOURCE: (test code = Cervical/Endocervical 8001) SLIDES: (test code = 1 8011) LMP: (test code = 8021) 10/10/2018 SPECIMEN ADEQUACY: (NOTE) (test code = 70500) INTERPRETATION: (test NILM/NO EPITH. code = 28987) ABNORMALITY;[place]: (test [place](ASCP) code = 8101) LOCATION: (test code = (NOTE) 31809) CPT: (test code = 8140) (NOTE) HIV AB/AG COMBO RFLX [id number] 00:00:00 Test Item Value Reference Range Interpretation Comments HIV 1/2 4TH GEN, RFLX CONF (test NON-REACTIVE code = 3514) HIV AB/AG COMBO RFLX [id number] 00:00:00 Test Item Value Reference Range Interpretation Comments HIV 1/2 4TH GEN, RFLX CONF (test NON-REACTIVE code = 3514) PAP TEST, THINPREP, [id number] 00:00:00 Test Item Value Reference Range Interpretation Comments SOURCE: (test code = Cervical/Endocervical 8001) SLIDES: (test code = 1 8011) LMP: (test code = 8021) 10/10/2018 SPECIMEN ADEQUACY: (NOTE) (test code = 66402) INTERPRETATION: (test NILM/NO EPITH. code = 88438) ABNORMALITY;[place]OW [place]: (test RENAE CARCT(ASCP) code = 8101) LOCATION: (test code = (NOTE) 20787) CPT: (test code = 8140) (NOTE) HPV HIGH RISK WITH GENOTYPE, [id number] 00:00:00 Test Item Value Reference Range Interpretation Comments HPV HIGH RISK INTERP (test code = NEGATIVE 07030) HPV 16 (test code = 07544) NEGATIVE HPV 18 (test code = 24470) NEGATIVE HPV, HR, OTHER GENOTYPES (test code NEGATIVE = 94770) [id number] 00:00:00 Test Item Value Reference Range Interpretation Comments TSH, THIRD GENERATION (test code 2.250 UIU/ML = 2821) HPV HIGH RISK WITH GENOTYPE, [id number] 00:00:00 Test Item Value Reference Range Interpretation Comments HPV HIGH RISK INTERP (test code = NEGATIVE 60210) HPV 16 (test code = 72583) NEGATIVE HPV 18 (test code = 49409) NEGATIVE HPV, HR, OTHER GENOTYPES (test code NEGATIVE = 62545) [id number] 00:00:00 Test Item Value Reference Range Interpretation Comments TSH, THIRD GENERATION (test code 2.250 UIU/ML = 2821) [id number] 00:00:00 Test Item Value Reference Range Interpretation Comments TSH, THIRD GENERATION (test code 2.250 UIU/ML = 2821) GC AND CHLAMYDIA AMPLIFIED, [id number] 00:00:00 Test Item Value Reference Range Interpretation Comments GONORRHEA, TMA (test code = 26930) NEGATIVE CHLAMYDIA, TMA (test code = 57884) NEGATIVE GC AND CHLAMYDIA AMPLIFIED, [id number] 00:00:00 Test Item Value Reference Range Interpretation Comments GONORRHEA, TMA (test code = 36119) NEGATIVE CHLAMYDIA, TMA (test code = 38702) NEGATIVE GC AND CHLAMYDIA AMPLIFIED, [id number] 00:00:00 Test Item Value Reference Range Interpretation Comments GONORRHEA, TMA (test code = 67353) NEGATIVE CHLAMYDIA, TMA (test code = 71646) NEGATIVE PAP TEST, THINPREP, [id number] 00:00:00 Test Item Value Reference Range Interpretation Comments SOURCE: (test code = Cervical/Endocervical 8001) SLIDES: (test code = 1 8011) LMP: (test code = 8021) 10/10/2018 SPECIMEN ADEQUACY: (NOTE) (test code = 72617) INTERPRETATION: (test NILM/NO EPITH. code = 19900) ABNORMALITY;[place]: (test [place](ASCP) code = 8101) LOCATION: (test code = (NOTE) 73432) CPT: (test code = 8140) (NOTE) HIV AB/AG COMBO RFLX [id number] 00:00:00 Test Item Value Reference Range Interpretation Comments HIV 1/2 4TH GEN, RFLX CONF (test NON-REACTIVE code = 3514) HIV AB/AG COMBO RFLX [id number] 00:00:00 Test Item Value Reference Range Interpretation Comments HIV 1/2 4TH GEN, RFLX CONF (test NON-REACTIVE code = 3514) HIV AB/AG COMBO RFLX [id number] 00:00:00 Test Item Value Reference Range Interpretation Comments HIV 1/2 4TH GEN, RFLX CONF (test NON-REACTIVE code = 3514) PAP TEST, THINPREP, [id number] 00:00:00 Test Item Value Reference Range Interpretation Comments SOURCE: (test code = Cervical/Endocervical 8001) SLIDES: (test code = 1 8011) LMP: (test code = 8021) 10/10/2018 SPECIMEN ADEQUACY: (NOTE) (test code = 29829) INTERPRETATION: (test NILM/NO EPITH. code = 16125) ABNORMALITY;[place]: (test [place](ASCP) code = 8101) LOCATION: (test code = (NOTE) 78232) CPT: (test code = 8140) (NOTE) [id number] 00:00:00 Test Item Value Reference Range Interpretation Comments TSH, THIRD GENERATION (test code 2.250 UIU/ML = 2821) [id number] 00:00:00 Test Item Value Reference Range Interpretation Comments TSH, THIRD GENERATION (test code 2.250 UIU/ML = 2821) HPV HIGH RISK WITH GENOTYPE, [id number] 00:00:00 Test Item Value Reference Range Interpretation Comments HPV HIGH RISK INTERP (test code = NEGATIVE 22810) HPV 16 (test code = 57844) NEGATIVE HPV 18 (test code = 60702) NEGATIVE HPV, HR, OTHER GENOTYPES (test code NEGATIVE = 24865) [id number] 00:00:00 Test Item Value Reference Range Interpretation Comments TSH, THIRD GENERATION (test code 2.250 UIU/ML = 2821) HPV HIGH RISK WITH GENOTYPE, [id number] 00:00:00 Test Item Value Reference Range Interpretation Comments HPV HIGH RISK INTERP (test code = NEGATIVE 03746) HPV 16 (test code = 10302) NEGATIVE HPV 18 (test code = 01115) NEGATIVE HPV, HR, OTHER GENOTYPES (test code NEGATIVE = 90914) PAP TEST, THINPREP, [id number] 00:00:00 Test Item Value Reference Range Interpretation Comments SOURCE: (test code = Cervical/Endocervical 8001) SLIDES: (test code = 1 8011) LMP: (test code = 8021) 10/10/2018 SPECIMEN ADEQUACY: (NOTE) (test code = 63329) INTERPRETATION: (test NILM/NO EPITH. code = 41930) ABNORMALITY;[place]: (test [place](ASCP) code = 8101) LOCATION: (test code = (NOTE) 39009) CPT: (test code = 8140) (NOTE) [id number] 00:00:00 Test Item Value Reference Range Interpretation Comments TSH, THIRD GENERATION (test code 2.250 UIU/ML = 2821) [id number] 00:00:00 Test Item Value Reference Range Interpretation Comments TSH, THIRD GENERATION (test code 2.250 UIU/ML = 2821) HPV HIGH RISK WITH GENOTYPE, [id number] 00:00:00 Test Item Value Reference Range Interpretation Comments HPV HIGH RISK INTERP (test code = NEGATIVE 27057) HPV 16 (test code = 59450) NEGATIVE HPV 18 (test code = 99732) NEGATIVE HPV, HR, OTHER GENOTYPES (test code NEGATIVE = 03316) GC AND CHLAMYDIA AMPLIFIED, [id number] 00:00:00 Test Item Value Reference Range Interpretation Comments GONORRHEA, TMA (test code = 97982) NEGATIVE CHLAMYDIA, TMA (test code = 35007) NEGATIVE GC AND CHLAMYDIA AMPLIFIED, [id number] 00:00:00 Test Item Value Reference Range Interpretation Comments GONORRHEA, TMA (test code = 32027) NEGATIVE CHLAMYDIA, TMA (test code = 99855) NEGATIVE PAP TEST, THINPREP, [id number] 00:00:00 Test Item Value Reference Range Interpretation Comments SOURCE: (test code = Cervical/Endocervical 8001) SLIDES: (test code = 1 8011) LMP: (test code = 8021) 10/10/2018 SPECIMEN ADEQUACY: (NOTE) (test code = 12849) INTERPRETATION: (test NILM/NO EPITH. code = 90966) ABNORMALITY;[place]: (test [place](ASCP) code = 8101) LOCATION: (test code = (NOTE) 38618) CPT: (test code = 8140) (NOTE) HIV AB/AG COMBO RFLX [id number] 00:00:00 Test Item Value Reference Range Interpretation Comments HIV 1/2 4TH GEN, RFLX CONF (test NON-REACTIVE code = 3514) HIV AB/AG COMBO RFLX [id number] 00:00:00 Test Item Value Reference Range Interpretation Comments HIV 1/2 4TH GEN, RFLX CONF (test NON-REACTIVE code = 3514) PAP TEST, THINPREP, [id number] 00:00:00 Test Item Value Reference Range Interpretation Comments SOURCE: (test code = Cervical/Endocervical 8001) SLIDES: (test code = 1 8011) LMP: (test code = 8021) 10/10/2018 SPECIMEN ADEQUACY: (NOTE) (test code = 39268) INTERPRETATION: (test NILM/NO EPITH. code = 39338) ABNORMALITY;[place]: (test [place](ASCP) code = 8101) LOCATION: (test code = (NOTE) 51854) CPT: (test code = 8140) (NOTE) [id number] 00:00:00 Test Item Value Reference Range Interpretation Comments TSH, THIRD GENERATION (test code 2.250 UIU/ML = 2821) HPV HIGH RISK WITH GENOTYPE, [id number] 00:00:00 Test Item Value Reference Range Interpretation Comments HPV HIGH RISK INTERP (test code = NEGATIVE 65596) HPV 16 (test code = 48854) NEGATIVE HPV 18 (test code = 82622) NEGATIVE HPV, HR, OTHER GENOTYPES (test code NEGATIVE = 63226) HPV HIGH RISK WITH GENOTYPE, [id number] 00:00:00 Test Item Value Reference Range Interpretation Comments HPV HIGH RISK INTERP (test code = NEGATIVE 93207) HPV 16 (test code = 23877) NEGATIVE HPV 18 (test code = 00599) NEGATIVE HPV, HR, OTHER GENOTYPES (test code NEGATIVE = 63323) [id number] 00:00:00 Test Item Value Reference Range Interpretation Comments TSH, THIRD GENERATION (test code 2.250 UIU/ML = 2821) [id number] 00:00:00 Test Item Value Reference Range Interpretation Comments TSH, THIRD GENERATION (test code 2.250 UIU/ML = 2821) GC AND CHLAMYDIA AMPLIFIED, [id number] 00:00:00 Test Item Value Reference Range Interpretation Comments GONORRHEA, TMA (test code = 11514) NEGATIVE CHLAMYDIA, TMA (test code = 92974) NEGATIVE GC AND CHLAMYDIA AMPLIFIED, [id number] 00:00:00 Test Item Value Reference Range Interpretation Comments GONORRHEA, TMA (test code = 66877) NEGATIVE CHLAMYDIA, TMA (test code = 47845) NEGATIVE PAP TEST, THINPREP, [id number] 00:00:00 Test Item Value Reference Range Interpretation Comments SOURCE: (test code = Cervical/Endocervical 8001) SLIDES: (test code = 1 8011) LMP: (test code = 8021) 10/10/2018 SPECIMEN ADEQUACY: (NOTE) (test code = 26787) INTERPRETATION: (test NILM/NO EPITH. code = 03796) ABNORMALITY;[place]: (test [place](ASCP) code = 8101) LOCATION: (test code = (NOTE) 79555) CPT: (test code = 8140) (NOTE) PAP TEST, THINPREP, [id number] 00:00:00 Test Item Value Reference Range Interpretation Comments SOURCE: (test code = Cervical/Endocervical 8001) SLIDES: (test code = 1 8011) LMP: (test code = 8021) 10/10/2018 SPECIMEN ADEQUACY: (NOTE) (test code = 24317) INTERPRETATION: (test NILM/NO EPITH. code = 24212) ABNORMALITY;[place]: (test RENAE CARCT(ASCP) code = 8101) LOCATION: (test code = (NOTE) 39313) CPT: (test code = 8140) (NOTE) HIV AB/AG COMBO RFLX [id number] 00:00:00 Test Item Value Reference Range Interpretation Comments HIV 1/2 4TH GEN, RFLX CONF (test NON-REACTIVE code = 3514) HIV AB/AG COMBO RFLX [id number] 00:00:00 Test Item Value Reference Range Interpretation Comments HIV 1/2 4TH GEN, RFLX CONF (test NON-REACTIVE code = 3514) HPV HIGH RISK WITH GENOTYPE, [id number] 00:00:00 Test Item Value Reference Range Interpretation Comments HPV HIGH RISK INTERP (test code = NEGATIVE 15663) HPV 16 (test code = 86709) NEGATIVE HPV 18 (test code = 77824) NEGATIVE HPV, HR, OTHER GENOTYPES (test code NEGATIVE = 57988) [id number] 00:00:00 Test Item Value Reference Range Interpretation Comments TSH, THIRD GENERATION (test code 2.250 UIU/ML = 2821) [id number] 00:00:00 Test Item Value Reference Range Interpretation Comments TSH, THIRD GENERATION (test code 2.250 UIU/ML = 2821) HPV HIGH RISK WITH GENOTYPE, [id number] 00:00:00 Test Item Value Reference Range Interpretation Comments HPV HIGH RISK INTERP (test code = NEGATIVE 13236) HPV 16 (test code = 63111) NEGATIVE HPV 18 (test code = 07471) NEGATIVE HPV, HR, OTHER GENOTYPES (test code NEGATIVE = 72216) [id number] 00:00:00 Test Item Value Reference Range Interpretation Comments TSH, THIRD GENERATION (test code 2.250 UIU/ML = 2821) CULTURE, [id number] 00:00:00 Test Item Value Reference Range Interpretation Comments CULTURE, URINE (test SPECIMEN NUMBER: code = 49047) [id number] CULTURE, [id number] 00:00:00 Test Item Value Reference Range Interpretation Comments CULTURE, URINE (test SPECIMEN NUMBER: code = 40872) [id number] CULTURE, [id number] 00:00:00 Test Item Value Reference Range Interpretation Comments CULTURE, URINE (test SPECIMEN NUMBER: code = 26211) [id number] CULTURE, [id number] 00:00:00 Test Item Value Reference Range Interpretation Comments CULTURE, URINE (test SPECIMEN NUMBER: code = 25005) [id number] CULTURE, [id number] 00:00:00 Test Item Value Reference Range Interpretation Comments CULTURE, URINE (test SPECIMEN NUMBER: code = 49164) [id number] CULTURE, [id number] 00:00:00 Test Item Value Reference Range Interpretation Comments CULTURE, URINE (test SPECIMEN NUMBER: code = 24824) [id number] CULTURE, [id number] 00:00:00 Test Item Value Reference Range Interpretation Comments CULTURE, URINE (test SPECIMEN NUMBER: code = 44517) [id number] CULTURE, [id number] 00:00:00 Test Item Value Reference Range Interpretation Comments CULTURE, URINE (test SPECIMEN NUMBER: code = 68574) [id number] CULTURE, [id number] 00:00:00 Test Item Value Reference Range Interpretation Comments CULTURE, URINE (test SPECIMEN NUMBER: code = 42905) [id number] CULTURE, [id number] 00:00:00 Test Item Value Reference Range Interpretation Comments CULTURE, URINE (test SPECIMEN NUMBER: code = 28466) [id number] CULTURE, [id number] 00:00:00 Test Item Value Reference Range Interpretation Comments CULTURE, URINE (test SPECIMEN NUMBER: code = 82259) [id number] CULTURE, [id number] 00:00:00 Test Item Value Reference Range Interpretation Comments CULTURE, URINE (test SPECIMEN NUMBER: code = 69770) [id number] CULTURE, [id number] 00:00:00 Test Item Value Reference Range Interpretation Comments CULTURE, URINE (test SPECIMEN NUMBER: code = 80434) [id number] CULTURE, [id number] 00:00:00 Test Item Value Reference Range Interpretation Comments CULTURE, URINE (test SPECIMEN NUMBER: code = 26087) [id number] CULTURE, [id number] 00:00:00 Test Item Value Reference Range Interpretation Comments CULTURE, URINE (test SPECIMEN NUMBER: code = 31732) [id number] CULTURE, [id number] 00:00:00 Test Item Value Reference Range Interpretation Comments CULTURE, URINE (test SPECIMEN NUMBER: code = 34775) [id number] CULTURE, [id number] 00:00:00 Test Item Value Reference Range Interpretation Comments CULTURE, URINE (test SPECIMEN NUMBER: code = 11989) [id number] CULTURE, [id number] 00:00:00 Test Item Value Reference Range Interpretation Comments CULTURE, URINE (test SPECIMEN NUMBER: code = 95749) [id number] CULTURE, [id number] 00:00:00 Test Item Value Reference Range Interpretation Comments CULTURE, URINE (test SPECIMEN NUMBER: code = 60282) [id number] CULTURE, [id number] 00:00:00 Test Item Value Reference Range Interpretation Comments CULTURE, URINE (test SPECIMEN NUMBER: code = 80095) [id number] CULTURE, [id number] 00:00:00 Test Item Value Reference Range Interpretation Comments CULTURE, URINE (test SPECIMEN NUMBER: code = 13805) [id number] VAGINAL PATHOGENS DNA [id number] 00:00:00 Test Item Value Reference Range Interpretation Comments RAMESH SPECIES (test code = ) NEGATIVE G. VAGINALIS (test code = 61342) POSITIVE T. VAGINALIS (test code = 54561) NEGATIVE VAGINAL PATHOGENS DNA [id number] 00:00:00 Test Item Value Reference Range Interpretation Comments RAMESH SPECIES (test code = 83889) NEGATIVE G. VAGINALIS (test code = 26433) POSITIVE T. VAGINALIS (test code = 62177) NEGATIVE VAGINAL PATHOGENS DNA [id number] 00:00:00 Test Item Value Reference Range Interpretation Comments RAMESH SPECIES (test code = 74092) NEGATIVE G. VAGINALIS (test code = 16021) POSITIVE T. VAGINALIS (test code = 25809) NEGATIVE VAGINAL PATHOGENS DNA [id number] 00:00:00 Test Item Value Reference Range Interpretation Comments RAMESH SPECIES (test code = 46296) NEGATIVE G. VAGINALIS (test code = 22061) POSITIVE T. VAGINALIS (test code = 39186) NEGATIVE VAGINAL PATHOGENS DNA [id number] 00:00:00 Test Item Value Reference Range Interpretation Comments RAMESH SPECIES (test code = 29195) NEGATIVE G. VAGINALIS (test code = 30171) POSITIVE T. VAGINALIS (test code = 93215) NEGATIVE VAGINAL PATHOGENS DNA [id number] 00:00:00 Test Item Value Reference Range Interpretation Comments RAMESH SPECIES (test code = 58870) NEGATIVE G. VAGINALIS (test code = 12765) POSITIVE T. VAGINALIS (test code = 00171) NEGATIVE VAGINAL PATHOGENS DNA [id number] 00:00:00 Test Item Value Reference Range Interpretation Comments RAMESH SPECIES (test code = 98270) NEGATIVE G. VAGINALIS (test code = 21950) POSITIVE T. VAGINALIS (test code = 30114) NEGATIVE VAGINAL PATHOGENS DNA [id number] 00:00:00 Test Item Value Reference Range Interpretation Comments RAMESH SPECIES (test code = 37379) NEGATIVE G. VAGINALIS (test code = 83174) POSITIVE T. VAGINALIS (test code = 19108) NEGATIVE VAGINAL PATHOGENS DNA [id number] 00:00:00 Test Item Value Reference Range Interpretation Comments RAMESH SPECIES (test code = 64743) NEGATIVE G. VAGINALIS (test code = 15211) POSITIVE T. VAGINALIS (test code = 44132) NEGATIVE VAGINAL PATHOGENS DNA [id number] 00:00:00 Test Item Value Reference Range Interpretation Comments RAMESH SPECIES (test code = 79343) NEGATIVE G. VAGINALIS (test code = 48146) POSITIVE T. VAGINALIS (test code = 04134) NEGATIVE VAGINAL PATHOGENS DNA [id number] 00:00:00 Test Item Value Reference Range Interpretation Comments RAMESH SPECIES (test code = 08647) NEGATIVE G. VAGINALIS (test code = 42719) POSITIVE T. VAGINALIS (test code = 11907) NEGATIVE VAGINAL PATHOGENS DNA [id number] 00:00:00 Test Item Value Reference Range Interpretation Comments RAMESH SPECIES (test code = 46437) NEGATIVE G. VAGINALIS (test code = 31341) POSITIVE T. VAGINALIS (test code = 85066) NEGATIVE VAGINAL PATHOGENS DNA [id number] 00:00:00 Test Item Value Reference Range Interpretation Comments RAMESH SPECIES (test code = 29126) NEGATIVE G. VAGINALIS (test code = 09536) POSITIVE T. VAGINALIS (test code = 51653) NEGATIVE VAGINAL PATHOGENS DNA [id number] 00:00:00 Test Item Value Reference Range Interpretation Comments RAMESH SPECIES (test code = 91329) NEGATIVE G. VAGINALIS (test code = 61755) POSITIVE T. VAGINALIS (test code = 37021) NEGATIVE VAGINAL PATHOGENS DNA [id number] 00:00:00 Test Item Value Reference Range Interpretation Comments RAMESH SPECIES (test code = 13669) NEGATIVE G. VAGINALIS (test code = 76251) POSITIVE T. VAGINALIS (test code = 82302) NEGATIVE VAGINAL PATHOGENS DNA [id number] 00:00:00 Test Item Value Reference Range Interpretation Comments RAMESH SPECIES (test code = 36578) NEGATIVE G. VAGINALIS (test code = 99824) POSITIVE T. VAGINALIS (test code = 15878) NEGATIVE VAGINAL PATHOGENS DNA [id number] 00:00:00 Test Item Value Reference Range Interpretation Comments RAMESH SPECIES (test code = 65305) NEGATIVE G. VAGINALIS (test code = 48670) POSITIVE T. VAGINALIS (test code = 39490) NEGATIVE VAGINAL PATHOGENS DNA [id number] 00:00:00 Test Item Value Reference Range Interpretation Comments RAMESH SPECIES (test code = 75785) NEGATIVE G. VAGINALIS (test code = 62084) POSITIVE T. VAGINALIS (test code = 05882) NEGATIVE VAGINAL PATHOGENS DNA [id number] 00:00:00 Test Item Value Reference Range Interpretation Comments RAMESH SPECIES (test code = 36621) NEGATIVE G. VAGINALIS (test code = 48274) POSITIVE T. VAGINALIS (test code = 24516) NEGATIVE VAGINAL PATHOGENS DNA [id number] 00:00:00 Test Item Value Reference Range Interpretation Comments RAMESH SPECIES (test code = 51551) NEGATIVE G. VAGINALIS (test code = 11991) POSITIVE T. VAGINALIS (test code = 71552) NEGATIVE VAGINAL PATHOGENS DNA [id number] 00:00:00 Test Item Value Reference Range Interpretation Comments RAMESH SPECIES (test code = 76350) NEGATIVE G. VAGINALIS (test code = 01089) POSITIVE T. VAGINALIS (test code = 73612) NEGATIVE GC AND CHLAMYDIA, AMPLIFIED, [id number] 00:00:00 Test Item Value Reference Range Interpretation Comments GONORRHEA, TMA (test code = 95304) NEGATIVE CHLAMYDIA, TMA (test code = 91085) NEGATIVE GC AND CHLAMYDIA, AMPLIFIED, [id number] 00:00:00 Test Item Value Reference Range Interpretation Comments GONORRHEA, TMA (test code = 17157) NEGATIVE CHLAMYDIA, TMA (test code = 09175) NEGATIVE GC AND CHLAMYDIA, AMPLIFIED, [id number] 00:00:00 Test Item Value Reference Range Interpretation Comments GONORRHEA, TMA (test code = 64476) NEGATIVE CHLAMYDIA, TMA (test code = 74318) NEGATIVE GC AND CHLAMYDIA, AMPLIFIED, [id number] 00:00:00 Test Item Value Reference Range Interpretation Comments GONORRHEA, TMA (test code = 10588) NEGATIVE CHLAMYDIA, TMA (test code = 36255) NEGATIVE GC AND CHLAMYDIA, AMPLIFIED, [id number] 00:00:00 Test Item Value Reference Range Interpretation Comments GONORRHEA, TMA (test code = 78755) NEGATIVE CHLAMYDIA, TMA (test code = 28581) NEGATIVE GC AND CHLAMYDIA, AMPLIFIED, [id number] 00:00:00 Test Item Value Reference Range Interpretation Comments GONORRHEA, TMA (test code = 67999) NEGATIVE CHLAMYDIA, TMA (test code = 43470) NEGATIVE GC AND CHLAMYDIA, AMPLIFIED, [id number] 00:00:00 Test Item Value Reference Range Interpretation Comments GONORRHEA, TMA (test code = 92788) NEGATIVE CHLAMYDIA, TMA (test code = 79408) NEGATIVE GC AND CHLAMYDIA, AMPLIFIED, [id number] 00:00:00 Test Item Value Reference Range Interpretation Comments GONORRHEA, TMA (test code = 41590) NEGATIVE CHLAMYDIA, TMA (test code = 09909) NEGATIVE GC AND CHLAMYDIA, AMPLIFIED, [id number] 00:00:00 Test Item Value Reference Range Interpretation Comments GONORRHEA, TMA (test code = 08154) NEGATIVE CHLAMYDIA, TMA (test code = 35859) NEGATIVE GC AND CHLAMYDIA, AMPLIFIED, [id number] 00:00:00 Test Item Value Reference Range Interpretation Comments GONORRHEA, TMA (test code = 37959) NEGATIVE CHLAMYDIA, TMA (test code = 96265) NEGATIVE GC AND CHLAMYDIA, AMPLIFIED, [id number] 00:00:00 Test Item Value Reference Range Interpretation Comments GONORRHEA, TMA (test code = 04172) NEGATIVE CHLAMYDIA, TMA (test code = 02287) NEGATIVE GC AND CHLAMYDIA, AMPLIFIED, [id number] 00:00:00 Test Item Value Reference Range Interpretation Comments GONORRHEA, TMA (test code = 95400) NEGATIVE CHLAMYDIA, TMA (test code = 08623) NEGATIVE GC AND CHLAMYDIA, AMPLIFIED, [id number] 00:00:00 Test Item Value Reference Range Interpretation Comments GONORRHEA, TMA (test code = 09166) NEGATIVE CHLAMYDIA, TMA (test code = 18361) NEGATIVE GC AND CHLAMYDIA, AMPLIFIED, [id number] 00:00:00 Test Item Value Reference Range Interpretation Comments GONORRHEA, TMA (test code = 09483) NEGATIVE CHLAMYDIA, TMA (test code = 55576) NEGATIVE GC AND CHLAMYDIA, AMPLIFIED, [id number] 00:00:00 Test Item Value Reference Range Interpretation Comments GONORRHEA, TMA (test code = 74254) NEGATIVE CHLAMYDIA, TMA (test code = 33686) NEGATIVE GC AND CHLAMYDIA, AMPLIFIED, [id number] 00:00:00 Test Item Value Reference Range Interpretation Comments GONORRHEA, TMA (test code = 75744) NEGATIVE CHLAMYDIA, TMA (test code = 65760) NEGATIVE GC AND CHLAMYDIA, AMPLIFIED, [id number] 00:00:00 Test Item Value Reference Range Interpretation Comments GONORRHEA, TMA (test code = 33478) NEGATIVE CHLAMYDIA, TMA (test code = 41928) NEGATIVE GC AND CHLAMYDIA, AMPLIFIED, [id number] 00:00:00 Test Item Value Reference Range Interpretation Comments GONORRHEA, TMA (test code = 61591) NEGATIVE CHLAMYDIA, TMA (test code = 84123) NEGATIVE GC AND CHLAMYDIA, AMPLIFIED, [id number] 00:00:00 Test Item Value Reference Range Interpretation Comments GONORRHEA, TMA (test code = 12573) NEGATIVE CHLAMYDIA, TMA (test code = 24592) NEGATIVE GC AND CHLAMYDIA, AMPLIFIED, [id number] 00:00:00 Test Item Value Reference Range Interpretation Comments GONORRHEA, TMA (test code = 23375) NEGATIVE CHLAMYDIA, TMA (test code = 95991) NEGATIVE GC AND CHLAMYDIA, AMPLIFIED, [id number] 00:00:00 Test Item Value Reference Range Interpretation Comments GONORRHEA, TMA (test code = 04884) NEGATIVE CHLAMYDIA, TMA (test code = 03479) NEGATIVE Notes Date/Time Note Provider Source 2023-05-02 Formatting of this note might be differe nt from the original. Mini Mckenzie MA [facility] 15:07:43-00:00 Tried to call patient- could not leave a message Electronically signed by Mini Mckenzie MA at 0 05/02/2023 3:08 PM CDT 2023-05-01 Formatting of this note might be differe nt from the original. Mini Mckenzie MA [facility] 14:26:11-00:00 Faxed [facility] as requested by patient Electronically signed by Mini Mckenzie MA at 0 05/01/2023 2:26 PM CDT 2023-05-01 Summary: RE: Sending DX to [employer] for coverage verification // Davidson Kirkland [facility] 14:13:21-00:00 PROVIDER: DAVIDSON DX: Lumbar radiculopathy CHINO: 01/23/23 Ambulatory clinics are not a ble to dispense medical records back dating past 30 days from a patient's last office visit. Sending to the [employer] contact /national account representative, the diagnosis and the contact information for the medical records department directly to try to get all what they need to verify coverage. Once fax confirmation is received, will scan to [facility] folder. Closing encounter. 2023-05-01 Formatting of this note might be differe nt from the original. Ana Jackson [facility] 14:00:48-00:00 Tanja Randolph is a 42 year old female Patient states she is needin g information faxed over to her insurance company in order for them to cover her appointments. They are wanting her upcoming appt, past Dx, current Dx, Case #[id number] Fax. [phone] [employer] [facility] Electronically signed by Ana Jackson at 04/03 2:05 PM CDT
[2023-05-31] MEDS ORDERED: CODEINE 30MG/APAP 300MG TAB ONE (03:18)
[2023-05-31] MEDS ORDERED: PROMETHAZINE 25 MG TABLET ONE (03:18)
[2023-05-31] MEDS ORDERED: ONDANSETRON 4 MG (ODT) TAB ONE (03:19)
[2023-05-31] MEDS ORDERED: LORAZEPAM 1 MG TABLET ONE (03:19)
[2023-05-31 03:38] LABS: Hematocrit 34.9 % (36.0-45.0); Lymphocytes % 20.8 % (15.3-44.8); MCV 80.3 fL (80-100); Platelets 276 thou/uL (152-406); RBC Red Blood Cell Count 4.35 M/uL (3.86-4.86)
[2023-05-31 03:39] LABS: Protime INR 0.95
[2023-05-31 03:52] LABS: ALT/SGPT 17 U/L (13-56); Albumin 3.9 g/dL (3.4-5.0); Alkaline Phosphatase 79 U/L (45-117); BUN Blood Urea Nitrogen 8 mg/dL (7-18); Bicarbonate 23 mEq/L (21-32); Bilirubin Total 0.4 mg/dL (0.2-1.0); Glomerular Filtration Rate 100 ml/min (=/>90); Glucose Level 113 mg/dL (74-106); Magnesium 2.1 mg/dL (1.6-2.4); NT PRO-BNP 43 pg/mL (<125); Potassium 3.7 mEq/L (3.5-5.1); Protein, Total 7.6 g/dL (6.4-8.2); Sodium Level 137 mEq/L (136-145); Troponin High Sensitivity 5.1 pg/mL (<58.9)
[2023-05-31 03:54] LABS: AST/SGOT < 4 U/L (15-37); Bilirubin Direct < 0.1 mg/dL (0-0.2); Bilirubin Indirect, Calculated ND mg/dL (0.2-0.8)
--- NOTE | 2023-05-31 04:26 | EDPHYS ---
Physician Documentation [facility] Name: Aimee Randolph Age: 42 yrs Sex: Female : 1980 Arrival Date: 05/31/2023 Time: 02:43 Bed 6 Private MD: ED Physician Blaine Alonzo HPI: 05/31 02:55 This 42 yrs old Female presents to ER via Ambulatory with complaints of cough..sp4 03:00 42-year-old female with past medical history of uterine polyp and history of sp4 C-sections presents with moderate acute onset chest pain on awakening 45 minutes ago. Patient reported associated vomiting, dyspnea, and shakes. Patient was brought here in private vehicle rolled and in a wheelchair. On presentation patient's appears to have moderate anxiety attack. . Historical: - Allergies: 02:51 Ceclor; rv 02:51 Latex, Natural Rubber; rv 02:51 Levaquin; rv - PMHx: 02:51 uterus polyp; rv - PSHx: 02:51 section; Cholecystectomy; heart surgery; rv - Immunization history:: Adult Immunizations up to date. - Social history:: Smoking status: unknown. - Family history:: not pertinent. ROS: 03:00 Constitutional: Negative for fever, chills, and weight loss, Eyes: Negative for injury, sp4 pain, redness, and discharge, ENT: Negative for injury, pain, and discharge, Neck: Negative for injury, pain, and swelling, Cardiovascular: Positive for chest pain and shortness of breath. Respiratory: Positive for cough, shortness of breath, chest pain Abdomen/GI: Negative for abdominal pain, nausea, vomiting, diarrhea, and constipation, Back: Negative for injury and pain, : Negative for injury, bleeding, discharge, and swelling, MS/Extremity: Negative for injury and deformity, Skin: Negative for injury, rash, and discoloration, Neuro: Negative for headache, weakness, numbness, tingling, and seizure, Psych: Positive for acute anxiety 03:00 All other systems are negative. Exam: 03:00 Constitutional: This is a well developed, well nourished patient who is awake, alert, sp4 patient's appears anxious and tremulous Head/Face: Normocephalic, atraumatic. Eyes: Pupils equal round and reactive to light, extra-ocular motions intact. Lids and lashes normal. Conjunctiva and sclera are not injected. Cornea within normal limits. Periorbital areas with no swelling, redness, or edema. ENT: Nares patent. No nasal discharge, no septal abnormalities noted. Tympanic membranes are normal and external auditory canals are clear. Oropharynx with no redness, swelling, or masses, exudates, or evidence of obstruction, uvula midline. Mucous membranes moist. Neck: Trachea midline, no thyromegaly or masses palpated, and no cervical lymphadenopathy. Supple, full range of motion without nuchal rigidity, or vertebral point tenderness. Chest/axilla: Normal chest wall appearance and motion. Nontender with no deformity. No lesions are appreciated. Cardiovascular: Regular rate and rhythm with a normal S1 and S2. No gallops, murmurs, or rubs. Normal PMI, no JVD. No pulse deficits. Respiratory: Lungs have equal breath sounds bilaterally, clear to auscultation and percussion. No rales, rhonchi or wheezes noted. No increased work of breathing, no retractions or nasal flaring. Abdomen/GI: Soft, non-tender, with normal bowel sounds. No distension or tympany. No guarding or rebound. No evidence of tenderness throughout. Back: No spinal tenderness. No costovertebral tenderness. Skin: Warm, dry with normal turgor. Normal color with no rashes, no lesions, and no evidence of cellulitis. MS/ Extremity: Pulses equal, no cyanosis. Neurovascular intact. Full, normal range of motion. Neuro: Awake and alert, GCS 15, oriented to person, place, time, and situation. Cranial nerves II-XII grossly intact. Motor strength 5/5 in all extremities. Sensory grossly intact. Psych: Positive for anxiety and positive for emotional upset also positive for tremulous hands 03:00 ECG was reviewed by the Attending Physician. Sinus rhythm at rate of 75, EKG time 0 256, there is no ST elevation or depression, no ectopy, overall normal EKG. Vital Signs: 02:54 BP 166 / 97; Pulse 76; Resp 16; Temp 97.7; Pulse Ox 100% ; Weight 88 kg; Height 4 ft. rv 11 in. ; 04:34 BP 110 / 74; Pulse 71; Resp 17; Temp 98; Pulse Ox 100% on R/A; rv 02:54 Body Mass Index 39.18 (88.00 kg, 149.86 cm) rv [place] Coma Score: 04:34 Eye Response: spontaneous(4). Motor Response: obeys commands(6). Verbal Response: rv oriented(5). Total: 15. MDM: 03:31 Patient medically screened. sp4 04:23 Differential Diagnosis altered mental status, Atypical chest pain, dyspnea on exertion, sp4 anxiety disorder panic disorder. Data reviewed: vital signs, nurses notes, old medical records, lab test result(s), EKG. ED course: Labs today are completely normal, EKG is unremarkable. No sign of heart failure on exam. No sign of arrhythmia. Patient is stable for discharge home. Will prescribe lorazepam as needed for anxiety attacks.. 05/31 02:52 Order name: Basic Metabolic Panel; Complete Time: 04:19 05/31 02:52 Order name: CBC with Diff; Complete Time: 03:46 05/31 02:52 Order name: LFT's; Complete Time: 04:19 05/31 02:52 Order name: Magnesium; Complete Time: 04:19 05/31 02:52 Order name: NT PRO-BNP; Complete Time: 04:19 05/31 02:52 Order name: PT-INR; Complete Time: 03:46 05/31 02:52 Order name: Troponin HS; Complete Time: 04:19 05/31 02:52 Order name: EKG; Complete Time: 02:53 05/31 02:52 Order name: Cardiac monitoring; Complete Time: 02:53 05/31 02:52 Order name: EKG - Nurse/Tech; Complete Time: 02:56 05/31 02:52 Order name: IV Saline Lock; Complete Time: 02:53 05/31 02:52 Order name: Labs collected and sent; Complete Time: 02:56 05/31 02:52 Order name: O2 Per Protocol; Complete Time: 02:52 05/31 02:52 Order name: O2 Sat Monitoring; Complete Time: 02:52 EC:00 Rate is 75 beats/min. Rhythm is regular. QRS [place] is Normal. [place] interval is normal. QRS sp4 interval is prolonged. QT interval is normal. No Q waves. T waves are Normal. Clinical impression: Normal ECG. Interpreted by me. Administered Medications: 03:18 Drug: LORazepam PO 2 mg Route: PO; jw7 04:33 Follow up: Response: No adverse reaction rv 03:18 Drug: Acetaminophen-Codeine PO (300 mg-30 mg) 2 tabs Route: PO; jw7 04:33 Follow up: Response: No adverse reaction rv 03:18 Drug: Ondansetron PO 4 mg Route: PO; jw7 04:33 Follow up: Response: No adverse reaction rv 03:18 Drug: Promethazine PO 25 mg Route: PO; jw7 04:33 Follow up: Response: No adverse reaction rv Disposition Summary: 05/31/23 04:25 Discharge Ordered Location: Home sp4 Problem: new sp4 Symptoms: have improved sp4 Condition: Stable sp4 Diagnosis - Anxiety disorder, unspecified sp4 - Acute anxiety attack sp4 Followup: sp4 - With: Private Physician - When: 10 - 14 days - Reason: Recheck today's complaints Discharge Instructions: - Discharge Summary Sheet sp4 - Managing Anxiety, Adult sp4 Forms: - Patient Portal Instructions sp4 - Leadership Thank You Letter sp4 Prescriptions: - Ativan 1 mg Oral Tablet - take 1 tablet by ORAL route every 12 hours As needed PO PRN for anxiety sp4 attacks; 12 tablet; Refills: 0, Product Selection Permitted Signatures: Dispatcher [employer] EDJalil Gu, RN RN rv Yuesf Brito, RN RN as6 Hallie Lopez RN RN jw7 Blaine Alonzo MD MD sp4 Corrections: (The following items were deleted from the chart) 04:31 02:53 Chest Single View+[email or web address] ordered. EDMS EDMS
--- NOTE | 2023-05-31 04:26 | ER ---
Nurse's Notes [facility] Name: Aimee Randolph Age: 42 yrs Sex: Female : 1980 Arrival Date: 05/31/2023 Time: 02:43 Bed 6 Private MD: Diagnosis: Anxiety disorder, unspecified;Acute anxiety attack Presentation: 05/31 02:49 Chief complaint: Patient states: DIAGNOSED WITH COVID TWO WKS AGP. SUDDEN ONSET OF CP rv TODAY, SHARP, R/T BACK, MIDSTERNAL. HX: AORTA REPAIR. Coronavirus screen: Client reports previous positive COVID test result. Ebola Screen: No symptoms or risks identified at this time. Initial Sepsis Screen: Does the patient meet any 2 criteria? No. Patient's initial sepsis screen is negative. Does the patient have a suspected source of infection? No. Patient's initial sepsis screen is negative. Risk Assessment: Do you want to hurt yourself or someone else? Patient reports no desire to harm self or others. Onset of symptoms was May 31, 2023. 02:49 Method Of Arrival: Ambulatory rv 02:49 Acuity: LAURITA 2 rv Triage Assessment: 02:51 General: Appears uncomfortable, Behavior is anxious. Pain: Complains of pain in chest. rv Neuro: Level of Consciousness is awake, alert, obeys commands, Oriented to person, place, time, situation. Cardiovascular: Capillary refill < 3 seconds Patient's skin is warm and dry. Cardiovascular: Chest pain quality is sharp, is located in chest wall radiates back. Respiratory: Airway is patent Respiratory effort is even, unlabored, Breath sounds are clear bilaterally. GI: NAUSEA Reports nausea. : No signs and/or symptoms were reported regarding the genitourinary system. Derm: Skin is intact. Historical: - Allergies: 02:51 Ceclor; rv 02:51 Latex, Natural Rubber; rv 02:51 Levaquin; rv - PMHx: 02:51 uterus polyp; rv - PSHx: 02:51 section; Cholecystectomy; heart surgery; rv - Immunization history:: Adult Immunizations up to date. - Social history:: Smoking status: unknown. - Family history:: not pertinent. Screenin:54 [facility] ED Fall Risk Assessment (Adult) History of falling in the last 3 months, rv including since admission No falls in past 3 months (0 pts) Confusion or Disorientation No (0 pts) Intoxicated or Sedated No (0 pts) Impaired Gait No (0 pts) Mobility Assist Device Used No (0 pt) Altered Elimination No (0 pt) Score/Fall Risk Level 0 - 2 = Low Risk Oriented to surroundings, Maintained a safe environment, Educated pt \T\ family on fall prevention, incl call for assistance when getting out of bed, Assessed \T\ reinforced patient's understanding of fall precautions, Provided non-skid footwear, Hourly rounding (assess needs \T\ fall precautionary measures) done, Used ambulatory aids as needed (educated on \T\ assisted with), Used gait belt as appropriate. Abuse screen: Denies threats or abuse. Denies injuries from another. Nutritional screening: No deficits noted. Tuberculosis screening: No symptoms or risk factors identified. Assessment: 02:59 General: Appears distressed, uncomfortable, obese, Behavior is cooperative, anxious. jw7 Pain: Complains of pain in back and chest Pain does not radiate. Pain began 30 min ago. Is continuous, Noted to be moaning, restless. Neuro: [place] Agitation-Sedation Scale (RASS): 0 - Alert and Calm Level of Consciousness is awake, alert, obeys commands, Oriented to person, place, time, situation. Cardiovascular: Reports chest pain, nausea, shortness of breath, vomiting, Capillary refill < 3 seconds Clubbing of nail beds is absent JVD is absent Patient's skin is warm and dry. Respiratory: Reports shortness of breath at rest since started 30 mins ago. GI: No deficits noted. No signs and/or symptoms were reported involving the gastrointestinal system. : No deficits noted. No signs and/or symptoms were reported regarding the genitourinary system. EENT: No deficits noted. No signs and/or symptoms were reported regarding the EENT system. Derm: No deficits noted. No signs and/or symptoms reported regarding the dermatologic system. Musculoskeletal: No deficits noted. No signs and/or symptoms reported regarding the musculoskeletal system. Circulation, motion, and sensation intact. Range of motion: intact in all extremities. Vital Signs: 02:54 BP 166 / 97; Pulse 76; Resp 16; Temp 97.7; Pulse Ox 100% ; Weight 88 kg; Height 4 ft. rv 11 in. ; 04:34 BP 110 / 74; Pulse 71; Resp 17; Temp 98; Pulse Ox 100% on R/A; rv 02:54 Body Mass Index 39.18 (88.00 kg, 149.86 cm) rv [place] Coma Score: 04:34 Eye Response: spontaneous(4). Motor Response: obeys commands(6). Verbal Response: rv oriented(5). Total: 15. ED Course: 02:46 Patient arrived in ED. oe 02:49 Jalil Boykin, RN is Primary Nurse. rv 02:51 Triage completed. rv 02:52 Inserted saline lock: 20 gauge in right forearm, using aseptic technique. Blood as6 collected. 02:54 Arm band placed on right wrist. rv 02:55 Blaine Alonzo MD is Attending Physician. sp4 02:59 Troponin HS Sent. as6 02:59 PT-INR Sent. as6 02:59 NT PRO-BNP Sent. as6 02:59 Magnesium Sent. as6 02:59 LFT's Sent. as6 02:59 CBC with Diff Sent. as6 02:59 Patient has correct armband on for positive identification. Bed in low position. Call jw7 light in reach. Side rails up X2. 03:00 Basic Metabolic Panel Sent. as6 04:34 No provider procedures requiring assistance completed. IV discontinued, intact, rv bleeding controlled, No redness/swelling at site. Pressure dressing applied. 04:35 Provided Education on: ANXIETY. rv Administered Medications: 03:18 Drug: LORazepam PO 2 mg Route: PO; jw7 04:33 Follow up: Response: No adverse reaction rv 03:18 Drug: Acetaminophen-Codeine PO (300 mg-30 mg) 2 tabs Route: PO; jw7 04:33 Follow up: Response: No adverse reaction rv 03:18 Drug: Ondansetron PO 4 mg Route: PO; jw7 04:33 Follow up: Response: No adverse reaction rv 03:18 Drug: Promethazine PO 25 mg Route: PO; jw7 04:33 Follow up: Response: No adverse reaction rv Medication: 02:54 VIS not applicable for this client. rv Outcome: 04:25 Discharge ordered by . sp4 04:34 Discharged to home ambulatory. rv 04:34 Condition: improved 04:34 Discharge instructions given to patient, Instructed on discharge instructions, follow up and referral plans. medication usage, Demonstrated understanding of instructions, follow-up care, medications, Prescriptions given X 1. 04:35 Patient left the ED. rv Signatures: Salvador Becker Ronaldo, RN RN rv Yusef Brito RN RN as6 Hallie Lopez RN RN jw7 Blaine Alonzo MD MD sp4
[2023-05-31 04:51] VITALS: O2SAT 100
[2023-05-31 04:56] VITALS: BP 110/74; TEMP 98
--- NOTE | 2023-05-31 13:03 | EKG ---
Test Date: 2023-05-31 Test Time: 02:56:06 [place]: RUKHSANA MEASUREMENT RESULTS: Intervals: Rate: 75 NV: QRSD: 116 QT: 380 QTc: 424 [place]: P: 62 NV: QRS: -79 T: 30 INTERPRETIVE STATEMENTS: Atrial flutter with 3:1 AV conduction Left anterior fascicular block Abnormal ECG Compared to ECG 02/01/2019 12:42:38 Left anterior fascicular block now present Sinus rhythm no longer present Myocardial infarct finding no longer present Electronically Signed On 05-31-23 13:02:55 CDT by Demetri Dennis
== END 2023-05-31 04:35 | disposition home or self-care (01) ==
LOC: ER 02:43
DX: F41.0 Panic disorder [episodic paroxysmal anxiety] (principal); F41.9 Anxiety disorder, unspecified; Z88.1 Allergy status to other antibiotic agents; Z91.040 Latex allergy status; Z91.048 Other nonmedicinal substance allergy status
CPT/HCPCS: 93005; 85025; 80048; 36415; 83735; 85610; 80076; 84484; 83880; Q0169; Q0162

== ENCOUNTER 2023-08-21 01:35 | Emergency (ER) | payer OTHER ==
--- OUTSIDE RECORDS SUMMARY | 2023-08-21 01:56 | XMS REPORT | Continuity of Care Document ---
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 (IRON, 00:00: mouth in [place] FERROUS 00 the Medical SULFATE,) morning Branch 325 mg (65 and 1 mg iron) tablet in tablet the evening. ferrous 2022-0 Yes [id number] 325mg Take 1 Un renate sulfate 5-03 tablet by ity of (IRON, 00:00: mouth in [place] FERROUS 00 the Medical SULFATE,) morning Branch 325 mg (65 and 1 mg iron) tablet in tablet the evening. ferrous 2022-0 Yes [id number] 325mg Take 1 Un renate sulfate 5-03 tablet by ity of (IRON, 00:00: mouth in [place] FERROUS 00 the Medical SULFATE,) morning Branch 325 mg (65 and 1 mg iron) tablet in tablet the evening. ferrous 2022-0 Yes [id number] 325mg Take 1 Un renate sulfate 5-03 tablet by ity of (IRON, 00:00: mouth in [place] FERROUS 00 the Medical SULFATE,) morning Branch 325 mg (65 and 1 mg iron) tablet in tablet the evening. ferrous 2022-0 Yes [id number] 325mg Take 1 Un renate sulfate 5-03 tablet by ity of (IRON, 00:00: mouth in [place] FERROUS 00 the Medical SULFATE,) morning Branch 325 mg (65 and 1 mg iron) tablet in tablet the evening. ferrous 2022-0 Yes [id number] 325mg Take 1 Un renate sulfate 5-03 tablet by ity of (IRON, 00:00: mouth in [place] FERROUS 00 the Medical SULFATE,) morning Branch 325 mg (65 and 1 mg iron) tablet in tablet the evening. ferrous 2022-0 Yes [id number] 325mg Take 1 Un renate sulfate 5-03 tablet by ity of (IRON, 00:00: mouth in [place] FERROUS 00 the Medical SULFATE,) morning Branch 325 mg (65 and 1 mg iron) tablet in tablet the evening. ferrous 2022-0 Yes [id number] 325mg Take 1 Un renate sulfate 5-03 tablet by ity of (IRON, 00:00: mouth in [place] FERROUS 00 the Medical SULFATE,) morning Branch 325 mg (65 and 1 mg iron) tablet in tablet the evening. ferrous 2022-0 Yes [id number] 325mg Take 1 Un renate sulfate 5-03 tablet by ity of (IRON, 00:00: mouth in [place] FERROUS 00 the Medical SULFATE,) morning Branch 325 mg (65 and 1 mg iron) tablet in tablet the evening. ferrous 2022-0 Yes [id number] 325mg Take 1 Un renate sulfate 5-03 tablet by ity of (IRON, 00:00: mouth in [place] FERROUS 00 the Medical SULFATE,) morning Branch 325 mg (65 and 1 mg iron) tablet in tablet the evening. ferrous 0 Yes [id number] 325mg Take 1 Un renate sulfate 4-27 tablet by ity of (IRON, 00:00: mouth in [place] FERROUS 00 the Medical SULFATE,) morning Branch 325 mg (65 and 1 mg iron) tablet in tablet the evening. ferrous 0 Yes [id number] 325mg Take 1 Un renate sulfate 4-27 tablet by ity of (IRON, 00:00: mouth in [place] FERROUS 00 the Medical SULFATE,) morning Branch 325 mg (65 and 1 mg iron) tablet in tablet the evening. ferrous 0 Yes [id number] 325mg Take 1 Un renate sulfate 4-27 tablet by ity of (IRON, 00:00: mouth in [place] FERROUS 00 the Medical SULFATE,) morning Branch 325 mg (65 and 1 mg iron) tablet in tablet the evening. ferrous 0 Yes [id number] 325mg Take 1 Un renate sulfate 4-27 tablet by ity of (IRON, 00:00: mouth in [place] FERROUS 00 the Medical SULFATE,) morning Branch 325 mg (65 and 1 mg iron) tablet in tablet the evening. ferrous 0 Yes [id number] 325mg Take 1 Un renate sulfate 4-27 tablet by ity of (IRON, 00:00: mouth in [place] FERROUS 00 the Medical SULFATE,) morning Branch 325 mg (65 and 1 mg iron) tablet in tablet the evening. cyclobenzap 2022-0 Yes [id number] 5mg Take 1 [facility] rine 5 mg 4-27 tablet by ity o f tablet 00:00: mouth at [place] 00 bedtime. Medical Branch cyclobenzap 2022-0 Yes [id number] 5mg Take 1 [facility] rine 5 mg 4-27 tablet by ity o f tablet 00:00: mouth at [place] 00 bedtime. Medical Branch cyclobenzap 2022-0 Yes [id number] 5mg Take 1 [facility] rine 5 mg 4-27 tablet by ity o f tablet 00:00: mouth at [place] 00 bedtime. Medical Branch cyclobenzap 2022-0 Yes [id number] 5mg Take 1 [facility] rine 5 mg 4-27 tablet by ity o f tablet 00:00: mouth at [place] [address] bedtime. Medical Branch cyclobenzap 2022-0 Yes [id number] 5mg Take 1 [facility] rine 5 mg 4-27 tablet by ity o f tablet 00:00: mouth at [place] 00 bedtime. Medical Branch cyclobenzap 2022-0 Yes [id number] 5mg Take 1 [facility] rine 5 mg 4-27 tablet by ity o f tablet 00:00: mouth at [place] 00 bedtime. Medical Branch cyclobenzap 2022-0 Yes [id number] 5mg Take 1 [facility] rine 5 mg 4-27 tablet by ity o f tablet 00:00: mouth at [place] 00 bedtime. Medical Branch cyclobenzap 2022-0 Yes [id number] 5mg Take 1 [facility] rine 5 mg 4-27 tablet by ity o f tablet 00:00: mouth at [place] 00 bedtime. Medical Branch cyclobenzap 2022-0 Yes [id number] 5mg Take 1 [facility] rine 5 mg 4-27 tablet by ity o f tablet 00:00: mouth at [place] 00 bedtime. Medical Branch cyclobenzap 2022-0 Yes [id number] 5mg Take 1 [facility] rine 5 mg 4-27 tablet by ity o f tablet 00:00: mouth at [place] 00 bedtime. Medical Branch cyclobenzap 2022-0 Yes [id number] 5mg Take 1 [facility] rine 5 mg 4-27 tablet by ity o f tablet 00:00: mouth at [place] 00 bedtime. Medical Branch cyclobenzap 2022-0 Yes [id number] 5mg Take 1 [facility] rine 5 mg 4-27 tablet by ity o f tablet 00:00: mouth at [place] 00 bedtime. Medical Branch cyclobenzap 2022-0 Yes [id number] 5mg Take 1 [facility] rine 5 mg 4-27 tablet by ity o f tablet 00:00: mouth at [place] 00 bedtime. Medical Branch cyclobenzap 2022-0 Yes [id number] 5mg Take 1 [facility] rine 5 mg 4-27 tablet by ity o f tablet 00:00: mouth at [place] 00 bedtime. Medical Branch cyclobenzap 2022-0 Yes [id number] 5mg Take 1 [facility] rine 5 mg 4-27 tablet by ity o f tablet 00:00: mouth at [place] 00 bedtime. Medical Branch cyclobenzap 2022-0 Yes [id number] 5mg Take 1 [facility] rine 5 mg 4-27 tablet by ity o f tablet 00:00: mouth at [place] 00 bedtime. Medical Branch cyclobenzap 2022-0 Yes [id number] 5mg Take 1 [facility] rine 5 mg 4-27 tablet by ity o f tablet 00:00: mouth at [place] 00 bedtime. Medical Branch cyclobenzap 2022-0 Yes [id number] 5mg Take 1 [facility] rine 5 mg 4-27 tablet by ity o f tablet 00:00: mouth at [place] 00 bedtime. [facility] Branch meloxicam 2022- No [id number] 7.5mg Take 1 [facility] 7.5 mg 4-27 06-27 tablet by ity of tablet 00:00: 04:59 mouth in [place] 00 :00 the [facility] for 60 days. meloxicam 2022- No [id number] 7.5mg Take 1 [facility] 7.5 mg 4-27 06-27 tablet by ity of tablet 00:00: 04:59 mouth in [place] 00 :00 the [facility] for 60 days. meloxicam 2022- No [id number] 7.5mg Take 1 [facility] 7.5 mg 4-27 06-27 tablet by ity of tablet 00:00: 04:59 mouth in [place] 00 :00 the [facility] for 60 days. meloxicam 2022- No [id number] 7.5mg Take 1 [facility] 7.5 mg 4-27 06-27 tablet by ity of tablet 00:00: 04:59 mouth in [place] 00 :00 the [facility] for 60 days. meloxicam 2022- No [id number] 7.5mg Take 1 [facility] 7.5 mg 4-27 06-27 tablet by ity of tablet 00:00: 04:59 mouth in [place] 00 :00 the [facility] for 60 days. meloxicam 2022-0 2022- No [id number] 7.5mg Take 1 [facility] 7.5 mg 4-27 06-27 tablet by ity of tablet 00:00: 04:59 mouth in [place] 00 :00 the [facility] for 60 days. meloxicam 2022-2022- No [id number] 7.5mg Take 1 [facility] 7.5 mg 4-27 06-27 tablet by ity of tablet 00:00: 04:59 mouth in [place] 00 :00 the Medical morning Branch for 60 days. meloxicam 2022-2022- No [id number] 7.5mg Take 1 [facility] 7.5 mg 01-26 tablet by ity of tablet 00:00: 04:59 mouth in [place] 00 :00 the Medical morning Branch for 60 days. meloxicam 2022- No [id number] 7.5mg Take 1 [facility] 7.5 mg 01-26 tablet by ity of tablet 00:00: 04:59 mouth in [place] 00 :00 the Medical morning Branch for 60 days. ferrous 2022-2022- No [id number] 325mg Take 1 U nivers sulfate 01-26- tablet by ity of (IRON, 00:00: 00:00 mouth in [place] FERROUS 00 :00 the Medical SULFATE,) morning Branch 325 mg (65 and 1 mg iron) tablet in tablet the evening. ferrous 2022-2022- No [id number] 325mg Take 1 U nivers sulfate 01-26- tablet by ity of (IRON, 00:00: 00:00 mouth in [place] FERROUS 00 :00 the Medical SULFATE,) morning Branch 325 mg (65 and 1 mg iron) tablet in tablet the evening. doxycycline 2022-2022- No [id number] 100mg Take 1 [facility] hyclate 100 - 05-07 tablet by it y of mg tablet 00:00: 04:59 mouth in [place] 00 :00 the Medical morning Branch and 1 tablet in the evening. Do all this for 10 days. doxycycline 2022-2022- No [id number] 100mg Take 1 [facility] hyclate 100 4- 05-07 tablet by it y of mg tablet 00:00: 04:59 mouth in [place] 00 :00 the Medical morning Branch and 1 tablet in the evening. Do all this for 10 days. doxycycline 2022-2022- No [id number] 100mg Take 1 [facility] hyclate 100 4-26 05-07 tablet by it y of mg tablet 00:00: 04:59 mouth in [place] 00 :00 the Medical morning Branch and 1 tablet in the evening. Do all this for 10 days. doxycycline 2022-0 2022- No [id number] 100mg Take 1 [facility] hyclate 100 4-26 05-07 tablet by it y of mg tablet 00:00: 04:59 mouth in [place] 00 :00 the Medical morning Branch and 1 tablet in the evening. Do all this for 10 days. doxycycline 2023-0 3- No [id number] 100mg Take 1 [facility] hyclate 100 4-26 05-07 tablet by it y of mg tablet 00:00: 04:59 mouth in [place] 00 :00 the Medical morning Branch and 1 tablet in the evening. Do all this for 10 days. doxycycline 2023-0 2023- No [id number] 100mg Take 1 [facility] hyclate 100 4-26 05-07 tablet by it y of mg tablet 00:00: 04:59 mouth in [place] 00 :00 the Medical morning Branch and 1 tablet in the evening. Do all this for 10 days. doxycycline 2023-0 3- No [id number] 100mg Take 1 [facility] hyclate 100 4-26 05-07 tablet by it y of mg tablet 00:00: 04:59 mouth in [place] 00 :00 the Medical morning Branch and 1 tablet in the evening. Do all this for 10 days. doxycycline 2023-0 3- No [id number] 100mg Take 1 [facility] hyclate 100 4-26 05-07 tablet by it y of mg tablet 00:00: 04:59 mouth in [place] 00 :00 the Medical morning Branch and 1 tablet in the evening. Do all this for 10 days. doxycycline 2023-0 3- No [id number] 100mg Take 1 [facility] hyclate 100 4-26 05-07 tablet by it y of mg tablet 00:00: 04:59 mouth in [place] 00 :00 the Medical morning Branch and 1 tablet in the evening. Do all this for 10 days. doxycycline 2023-0 3- No [id number] 100mg Take 1 [facility] hyclate 100 4-26 05-07 tablet by it y of mg tablet 00:00: 04:59 mouth in [place] 00 :00 the Medical morning Branch and 1 tablet in the evening. Do all this for 10 days. doxycycline 2023-0 3- No [id number] 100mg Take 1 [facility] hyclate 100 4-26 05-07 tablet by it y of mg tablet 00:00: 04:59 mouth in [place] 00 :00 the Medical morning Branch and 1 tablet in the evening. Do all this for 10 days. doxycycline 2022-0 2022- No [id number] 100mg Take 1 [facility] hyclate 100 01-25- tablet by it y of mg tablet 00:00: 04:59 mouth in [place] 00 :00 the Medical morning Branch and 1 tablet in the evening. Do all this for 10 days. doxycycline 2022-0 2022- No [id number] 100mg Take 1 [facility] hyclate 100 01-25- tablet by it y of mg tablet [...] :00 dose, On Medi selina tablet 1 e Branch tablet 12/27/22 at 1015, Routine HYDROcodone 2022-0 2022- No 1{tbl} 1 tablet, Univers -acetaminop 12-27 Oral, ity of hen (NORCO 15:15: 14:28 ONCE, 1 [place] 5) 5-325 mg 00 :00 dose, On Medi selina tablet 1 Tue Branch tablet 12/27/22 at 1015, Routine sodium 2022- No PRN, Univers chloride 12-27 Starting ity of 0.9 % 13:21: 13:53 on Mon [place] irrigation 00 :19 12/27/22 at Med ical solution 0821, Branch Until e 12/27/22 at 0853, Intra-op ferric 2022- Yes PRN, Univers subsulfate 12-27 Starting ity [...] dose Bran ch (NS) 250 mL on VIAL-MATE 12/27/22 at IV 0730, piggyback Administer over 60 Minutes, 250 mL
Reas on for Anti-Infec tive: Surgical Prophylaxi s
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
Duration of therapy: within 24 hours of [...] Surgical Prophylaxi s
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
Duration of therapy: within 24 hours of surgery lactated 3-0 3- No 1000mL at 42 Unive rs ringers IV 3-28 03-28 mL/hr, ity of infusion 12:15: 12:27 1,000 mL, [place] 1,000 mL 00 :00 IV Medical Infusion, Branch ONCE, 1 dose, On Mon12/27/22 at 0715, Routine, DSU Pre-op lactated 3-0 2023- No 1000mL at 42 Unive rs ringers IV 3-28 03-28 mL/hr, ity of infusion 12:15: 12:27 1,000 mL, [place] 1,000 mL 00 :00 IV Medical Infusion, Branch ONCE, 1 dose, On Mon12/27/22 at 0715, Routine, DSU Pre-op acetaminoph 3-0 Yes [id number] 650mg Take 2 [facility] en 3-28 tablets by ity of (TYLENOL) 00:00: mouth [place] 325 mg 00 every 6 Medical tablet (six) Branch hours as needed for Pain (scale 1-3) or Pain (scale 4-6). ibuprofen 2022-0 Yes [id number] 600mg Take 1 [facility] 600 mg 3-28 tablet by ity of tablet 00:00: mouth [place] 00 every 6 Medical (six) Branch hours as needed for Pain (scale 1-3) or Pain (scale 4-6). acetaminoph 2023-0 Yes [id number] 650mg Take 2 [facility] en 3-28 tablets by ity of (TYLENOL) 00:00: mouth [place] 325 mg 00 every 6 Medical tablet (six) Branch hours as needed for Pain (scale 1-3) or Pain (scale 4-6). ibuprofen 2023-0 Yes [id number] 600mg Take 1 [facility] 600 mg 3-28 tablet by ity of tablet 00:00: mouth [place] 00 every 6 Medical (six) Branch hours as needed for Pain (scale 1-3) or Pain (scale 4-6). acetaminoph 2023-0 Yes [id number] 650mg Take 2 Univers en 3-28 tablets by ity of (TYLENOL) 00:00: mouth [place] 325 mg 00 every 6 Medical tablet (six) Branch hours as needed for Pain (scale 1-3) or Pain (scale 4-6). ibuprofen 2023-0 Yes [id number] 600mg Take 1 [facility] 600 mg 3-28 tablet by ity of tablet 00:00: mouth [place] 00 every 6 Medical (six) Branch hours as needed for Pain (scale 1-3) or Pain (scale 4-6). acetaminoph 2023-0 Yes [id number] 650mg Take 2 [facility] en 3-28 tablets by ity of (TYLENOL) 00:00: mouth [place] 325 mg 00 every 6 Medical tablet (six) Branch hours as needed for Pain (scale 1-3) or Pain (scale 4-6). ibuprofen 2023-0 Yes [id number] 600mg Take 1 [facility] 600 mg 3-28 tablet by ity of tablet 00:00: mouth [place] 00 every 6 Medical (six) Branch hours as needed for Pain (scale 1-3) or Pain (scale 4-6). acetaminoph 2023-0 Yes [id number] 650mg Take 2 [facility] en 3-28 tablets by ity of (TYLENOL) 00:00: mouth [place] 325 mg 00 every 6 Medical tablet (six) Branch hours as needed for Pain (scale 1-3) or Pain (scale 4-6). ibuprofen 2023-0 Yes [id number] 600mg Take 1 [facility] 600 mg 3-28 tablet by ity of tablet 00:00: mouth [place] 00 every 6 Medical (six) Branch hours as needed for Pain (scale 1-3) or Pain (scale 4-6). acetaminoph 2023-0 Yes [id number] 650mg Take 2 [facility] en 3-28 tablets by ity of (TYLENOL) 00:00: mouth [place] 325 mg 00 every 6 Medical tablet (six) Branch hours as needed for Pain (scale 1-3) or Pain (scale 4-6). ibuprofen 2023-0 Yes [id number] 600mg Take 1 [facility] 600 mg 3-28 tablet by ity of tablet 00:00: mouth [place] 00 every 6 Medical (six) Branch hours as needed for Pain (scale 1-3) or Pain (scale 4-6). acetaminoph 2023-0 Yes [id number] 650mg Take 2 [facility] en 3-28 tablets by ity of (TYLENOL) 00:00: mouth [place] 325 mg 00 every 6 Medical tablet (six) Branch hours as needed for Pain (scale 1-3) or Pain (scale 4-6). ibuprofen 2023-0 Yes [id number] 600mg Take 1 [facility] 600 mg 3-28 tablet by ity of tablet 00:00: mouth [place] 00 every 6 Medical (six) Branch hours as needed for Pain (scale 1-3) or Pain (scale 4-6). acetaminoph 2023-0 Yes [id number] 650mg Take 2 [facility] en 3-28 tablets by ity of (TYLENOL) 00:00: mouth [place] 325 mg 00 every 6 Medical tablet (six) Branch hours as needed for Pain (scale 1-3) or Pain (scale 4-6). ibuprofen 2023-0 Yes [id number] 600mg Take 1 [facility] 600 mg 3-28 tablet by ity of tablet 00:00: mouth [place] 00 every 6 Medical (six) Branch hours as needed for Pain (scale 1-3) or Pain (scale 4-6). acetaminoph 2023-0 Yes [id number] 650mg Take 2 [facility] en 3-28 tablets by ity of (TYLENOL) 00:00: mouth [place] 325 mg 00 every 6 Medical tablet (six) Branch hours as needed for Pain (scale 1-3) or Pain (scale 4-6). ibuprofen 2023-0 Yes [id number] 600mg Take 1 [facility] 600 mg 3-28 tablet by ity of tablet 00:00: mouth [place] 00 every 6 Medical (six) Branch hours as needed for Pain (scale 1-3) or Pain (scale 4-6). acetaminoph 2023-0 Yes [id number] 650mg Take 2 Univers en 3-28 tablets by ity of (TYLENOL) 00:00: mouth [place] 325 mg 00 every 6 Medical tablet (six) Branch hours as needed for Pain (scale 1-3) or Pain (scale 4-6). ibuprofen 2023-0 Yes [id number] 600mg Take 1 [facility] 600 mg 3-28 tablet by ity of tablet 00:00: mouth [place] 00 every 6 Medical (six) Branch hours as needed for Pain (scale 1-3) or Pain (scale 4-6). acetaminoph 2023-0 Yes [id number] 650mg Take 2 [facility] en 3-28 tablets by ity of (TYLENOL) 00:00: mouth [place] 325 mg 00 every 6 Medical tablet (six) Branch hours as needed for Pain (scale 1-3) or Pain (scale 4-6). ibuprofen 3-0 Yes [id number] 600mg Take 1 [facility] 600 mg 3-28 tablet by ity of tablet 00:00: mouth [place] 00 every 6 Medical (six) Branch hours as needed for Pain (scale 1-3) or Pain (scale 4-6). acetaminoph 2023-0 Yes [id number] 650mg Take 2 Univers en 3-28 tablets by ity of (TYLENOL) 00:00: mouth [place] 325 mg 00 every 6 Medical tablet (six) Branch hours as needed for Pain (scale 1-3) or Pain (scale 4-6). ibuprofen 2022-0 Yes [id number] 600mg Take 1 [facility] 600 mg 3-28 tablet by ity of tablet 00:00: mouth [place] 00 every 6 Medical (six) Branch hours as needed for Pain (scale 1-3) or Pain (scale 4-6). acetaminoph 2022-0 Yes [id number] 650mg Take 2 Univers en 3-28 tablets by ity of (TYLENOL) 00:00: mouth [place] 325 mg 00 every 6 Medical tablet (six) Branch hours as needed for Pain (scale 1-3) or Pain (scale 4-6). ibuprofen 2022-0 Yes [id number] 600mg Take 1 [facility] 600 mg 3-28 tablet by ity of tablet 00:00: mouth [place] 00 every 6 Medical (six) Branch hours as needed for Pain (scale 1-3) or Pain (scale 4-6). acetaminoph 3-0 Yes [id number] 650mg Take 2 Univers en 3-28 tablets by ity of (TYLENOL) 00:00: mouth [place] 325 mg 00 every 6 Medical tablet (six) Branch hours as needed for Pain (scale 1-3) or Pain (scale 4-6). ibuprofen 2023-0 Yes [id number] 600mg Take 1 [facility] 600 mg 3-28 tablet by ity of tablet 00:00: mouth [place] 00 every 6 Medical (six) Branch hours as needed for Pain (scale 1-3) or Pain (scale 4-6). acetaminoph 2023-0 Yes [id number] 650mg Take 2 Univers en 3-28 tablets by ity of (TYLENOL) 00:00: mouth [place] 325 mg 00 every 6 Medical tablet (six) Branch hours as needed for Pain (scale 1-3) or Pain (scale 4-6). ibuprofen 2023-0 Yes [id number] 600mg Take 1 [facility] 600 mg 3-28 tablet by ity of tablet 00:00: mouth [place] 00 every 6 Medical (six) Branch hours as needed for Pain (scale 1-3) or Pain (scale 4-6). acetaminoph 2023-0 Yes [id number] 650mg Take 2 Univers en 3-28 tablets by ity of (TYLENOL) 00:00: mouth [place] 325 mg 00 every 6 Medical tablet (six) Branch hours as needed for Pain (scale 1-3) or Pain (scale 4-6). ibuprofen 2023-0 Yes [id number] 600mg Take 1 [facility] 600 mg 3-28 tablet by ity of tablet 00:00: mouth [place] 00 every 6 Medical (six) Branch hours as needed for Pain (scale 1-3) or Pain (scale 4-6). acetaminoph 3-0 Yes [id number] 650mg Take 2 [facility] en 3-28 tablets by ity of (TYLENOL) 00:00: mouth [place] 325 mg 00 every 6 Medical tablet (six) Branch hours as needed for Pain (scale 1-3) or Pain (scale 4-6). ibuprofen 3-0 Yes [id number] 600mg Take 1 [facility] 600 mg 3-28 tablet by ity of tablet 00:00: mouth [place] 00 every 6 Medical (six) Branch hours as needed for Pain (scale 1-3) or Pain (scale 4-6). acetaminoph 3-0 Yes [id number] 650mg Take 2 [facility] en 3-28 tablets by ity of (TYLENOL) 00:00: mouth [place] 325 mg 00 every 6 Medical tablet (six) Branch hours as needed for Pain (scale 1-3) or Pain (scale 4-6). ibuprofen 2023-0 Yes [id number] 600mg Take 1 [facility] 600 mg 3-28 tablet by ity of tablet 00:00: mouth [place] 00 every 6 Medical (six) Branch hours as needed for Pain (scale 1-3) or Pain (scale 4-6). acetaminoph 2023-0 Yes [id number] 650mg Take 2 [facility] en 3-28 tablets by ity of (TYLENOL) 00:00: mouth [place] 325 mg 00 every 6 Medical tablet (six) Branch hours as needed for Pain (scale 1-3) or Pain (scale 4-6). ibuprofen 2023-0 Yes [id number] 600mg Take 1 [facility] 600 mg 3-28 tablet by ity of tablet 00:00: mouth [place] 00 every 6 Medical (six) Branch hours as needed for Pain (scale 1-3) or Pain (scale 4-6). acetaminoph 2023-0 Yes [id number] 650mg Take 2 [facility] en 3-28 tablets by ity of (TYLENOL) 00:00: mouth [place] 325 mg 00 every 6 Medical tablet (six) Branch hours as needed for Pain (scale 1-3) or Pain (scale 4-6). ibuprofen 202-0 Yes [id number] 600mg Take 1 [facility] 600 mg 3-28 tablet by ity of tablet 00:00: mouth [place] 00 every 6 Medical (six) Branch hours as needed for Pain (scale 1-3) or Pain (scale 4-6). acetaminoph 2022-0 Yes [id number] 650mg Take 2 [facility] en 3-28 tablets by ity of (TYLENOL) 00:00: mouth [place] 325 mg 00 every 6 Medical tablet (six) Branch hours as needed for Pain (scale 1-3) or Pain (scale 4-6). ibuprofen 3-0 Yes [id number] 600mg Take 1 [facility] 600 mg 3-28 tablet by ity of tablet 00:00: mouth [place] 00 every 6 Medical (six) Branch hours as needed for Pain (scale 1-3) or Pain (scale 4-6). acetaminoph 3-0 Yes [id number] 650mg Take 2 [facility] en 3-28 tablets by ity of (TYLENOL) 00:00: mouth [place] 325 mg 00 every 6 Medical tablet (six) Branch hours as needed for Pain (scale 1-3) or Pain (scale 4-6). ibuprofen 2023-0 Yes [id number] 600mg Take 1 [facility] 600 mg 3-28 tablet by ity of tablet 00:00: mouth [place] 00 every 6 Medical (six) Branch hours as needed for Pain (scale 1-3) or Pain (scale 4-6). acetaminoph 2023-0 Yes [id number] 650mg Take 2 [facility] en 3-28 tablets by ity of (TYLENOL) 00:00: mouth [place] 325 mg 00 every 6 Medical tablet (six) Branch hours as needed for Pain (scale 1-3) or Pain (scale 4-6). ibuprofen 2022-0 Yes [id number] 600mg Take 1 [facility] 600 mg 3-28 tablet by ity of tablet 00:00: mouth [place] 00 every 6 Medical (six) Branch hours as needed for Pain (scale 1-3) or Pain (scale 4-6). acetaminoph 2022-0 Yes [id number] 650mg Take 2 [facility] en 3-28 tablets by ity of (TYLENOL) 00:00: mouth [place] 325 mg 00 every 6 Medical tablet (six) Branch hours as needed for Pain (scale 1-3) or Pain (scale 4-6). ibuprofen 2022-0 Yes [id number] 600mg Take 1 [facility] 600 mg 3-28 tablet by ity of tablet 00:00: mouth [place] 00 every 6 Medical (six) Branch hours as needed for Pain (scale 1-3) or Pain (scale 4-6). acetaminoph 2022-0 Yes [id number] 650mg Take 2 [facility] en 3-28 tablets by ity of (TYLENOL) 00:00: mouth [place] 325 mg 00 every 6 Medical tablet (six) Branch hours as needed for Pain (scale 1-3) or Pain (scale 4-6). ibuprofen 2022-0 Yes [id number] 600mg Take 1 [facility] 600 mg 3-28 tablet by ity of tablet 00:00: mouth [place] 00 every 6 Medical (six) Branch hours as needed for Pain (scale 1-3) or Pain (scale 4-6). acetaminoph 2022-0 Yes [id number] 650mg Take 2 [facility] en 3-28 tablets by ity of (TYLENOL) 00:00: mouth [place] 325 mg 00 every 6 Medical tablet (six) Branch hours as needed for Pain (scale 1-3) or Pain (scale 4-6). ibuprofen 2022-0 Yes [id number] 600mg Take 1 [facility] 600 mg 3-28 tablet by ity of tablet 00:00: mouth [place] 00 every 6 Medical (six) Branch hours as needed for Pain (scale 1-3) or Pain (scale 4-6). acetaminoph 2022-0 Yes [id number] 650mg Take 2 [facility] en 3-28 tablets by ity of (TYLENOL) 00:00: mouth [place] 325 mg 00 every 6 Medical tablet (six) Branch hours as needed for Pain (scale 1-3) or Pain (scale 4-6). ibuprofen 2022-0 Yes [id number] 600mg Take 1 [facility] 600 mg 3-28 tablet by [facility] of tablet 00:00: mouth [place] 00 every 6 Medical (six) Branch hours as needed for Pain (scale 1-3) or Pain (scale 4-6). acetaminoph 2022-0 Yes [id number] 650mg Take 2 [facility] en 3-28 tablets by ity of (TYLENOL) 00:00: mouth [place] 325 mg 00 every 6 Medical tablet (six) Branch hours as needed for Pain (scale 1-3) or Pain (scale 4-6). ibuprofen 2022-0 Yes [id number] 600mg Take 1 [facility] 600 mg 3-28 tablet by ity of tablet 00:00: mouth [place] 00 every 6 Medical (six) Branch hours as needed for Pain (scale 1-3) or Pain (scale 4-6). acetaminoph 2022-0 Yes [id number] 650mg Take 2 [facility] en 3-28 tablets by ity of (TYLENOL) 00:00: mouth [place] 325 mg 00 every 6 Medical tablet (six) Branch hours as needed for Pain (scale 1-3) or Pain (scale 4-6). ibuprofen 2022-0 Yes [id number] 600mg Take 1 [facility] 600 mg 3-28 tablet by ity of tablet 00:00: mouth [place] 00 every 6 Medical (six) Branch hours as needed for Pain (scale 1-3) or Pain (scale 4-6). acetaminoph 2022-0 Yes [id number] 650mg Take 2 [facility] en 3-28 tablets by ity of (TYLENOL) 00:00: mouth [place] 325 mg 00 every 6 Medical tablet (six) Branch hours as needed for Pain (scale 1-3) or Pain (scale 4-6). ibuprofen 2022-0 Yes [id number] 600mg Take 1 [facility] 600 mg 3-28 tablet by ity of tablet 00:00: mouth [place] 00 every 6 Medical (six) Branch hours as needed for Pain (scale 1-3) or Pain (scale 4-6). acetaminoph 2022-0 Yes [id number] 650mg Take 2 [facility] en 3-28 tablets by ity of (TYLENOL) 00:00: mouth [place] 325 mg 00 every 6 Medical tablet (six) Branch hours as needed for Pain (scale 1-3) or Pain (scale 4-6). ibuprofen 2022-0 Yes [id number] 600mg Take 1 [facility] 600 mg 3-28 tablet by ity of tablet 00:00: mouth [place] 00 every 6 Medical (six) Branch hours as needed for Pain (scale 1-3) or Pain (scale 4-6). acetaminoph 2022-0 Yes [id number] 650mg Take 2 [facility] en 3-28 tablets by ity of (TYLENOL) 00:00: mouth [place] 325 mg 00 every 6 Medical tablet (six) Branch hours as needed for Pain (scale 1-3) or Pain (scale 4-6). ibuprofen 2022-0 Yes [id number] 600mg Take 1 [facility] 600 mg 3-28 tablet by ity of tablet 00:00: mouth [place] 00 every 6 Medical (six) Branch hours as needed for Pain (scale 1-3) or Pain (scale 4-6). acetaminoph 2022-0 Yes [id number] 650mg Take 2 [facility] en 3-28 tablets by ity of (TYLENOL) 00:00: mouth [place] 325 mg 00 every 6 Medical tablet (six) Branch hours as needed for Pain (scale 1-3) or Pain (scale 4-6). ibuprofen 2022-0 Yes [id number] 600mg Take 1 [facility] 600 mg 3-28 tablet by ity of tablet 00:00: mouth [place] 00 every 6 Medical (six) Branch hours as needed for Pain (scale 1-3) or Pain (scale 4-6). acetaminoph 2022-0 Yes [id number] 650mg Take 2 [facility] en 3-28 tablets by ity of (TYLENOL) 00:00: mouth [place] 325 mg 00 every 6 Medical tablet (six) Branch hours as needed for Pain (scale 1-3) or Pain (scale 4-6). ibuprofen 2022-0 Yes [id number] 600mg Take 1 [facility] 600 mg 3-28 tablet by ity of tablet 00:00: mouth [place] 00 every 6 Medical (six) Branch hours as needed for Pain (scale 1-3) or Pain (scale 4-6). acetaminoph 2023-0 Yes [id number] 650mg Take 2 [facility] en 3-28 tablets by ity of (TYLENOL) 00:00: mouth [place] 325 mg 00 every 6 Medical tablet (six) Branch hours as needed for Pain (scale 1-3) or Pain (scale 4-6). ibuprofen 3-0 Yes [id number] 600mg Take 1 [facility] 600 mg 3-28 tablet by ity of tablet 00:00: mouth [place] 00 every 6 Medical (six) Branch hours as needed for Pain (scale 1-3) or Pain (scale 4-6). acetaminoph 2023-0 Yes [id number] 650mg Take 2 [facility] en 3-28 tablets by ity of (TYLENOL) 00:00: mouth [place] 325 mg 00 every 6 Medical tablet (six) Branch hours as needed for Pain (scale 1-3) or Pain (scale 4-6). ibuprofen 3-0 Yes [id number] 600mg Take 1 [facility] 600 mg 3-28 tablet by ity of tablet 00:00: mouth [place] 00 every 6 Medical (six) Branch hours as needed for Pain (scale 1-3) or Pain (scale 4-6). acetaminoph 3-0 Yes [id number] 650mg Take 2 [facility] en 3-28 tablets by ity of (TYLENOL) 00:00: mouth [place] 325 mg 00 every 6 Medical tablet (six) Branch hours as needed for Pain (scale 1-3) or Pain (scale 4-6). ibuprofen 3-0 Yes [id number] 600mg Take 1 [facility] 600 mg 3-28 tablet by ity of tablet 00:00: mouth [place] 00 every 6 Medical (six) Branch hours as needed for Pain (scale 1-3) or Pain (scale 4-6). acetaminoph 2023-0 Yes [id number] 650mg Take 2 [facility] en 3-28 tablets by ity of (TYLENOL) 00:00: mouth [place] 325 mg 00 every 6 Medical tablet (six) Branch hours as needed for Pain (scale 1-3) or Pain (scale 4-6). ibuprofen 2023-0 Yes [id number] 600mg Take 1 [facility] 600 mg 3-28 tablet by ity of tablet 00:00: mouth [place] 00 every 6 Medical (six) Branch hours as needed for Pain (scale 1-3) or Pain (scale 4-6). acetaminoph 0 Yes [id number] 650mg Take 2 [facility] en 3-28 tablets by ity of (TYLENOL) 00:00: mouth [place] 325 mg 00 every 6 Medical tablet (six) Branch hours as needed for Pain (scale 1-3) or Pain (scale 4-6). ibuprofen 0 Yes [id number] 600mg Take 1 [facility] 600 mg 3-28 tablet by ity of tablet 00:00: mouth [place] 00 every 6 Medical (six) Branch hours as needed for Pain (scale 1-3) or Pain (scale 4-6). acetaminoph Yes [id number] 650mg Take 2 [facility] en 3-28 tablets by ity of (TYLENOL) 00:00: mouth [place] 325 mg 00 every 6 Medical tablet (six) Branch hours as needed for Pain (scale 1-3) or Pain (scale 4-6). ibuprofen Yes [id number] 600mg Take 1 [facility] 600 mg 3-28 [...] 00 needed. Medical Branch methylPREDN 3-0 Yes [id number] Take by [facility] ISolone 4 2-21 mouth ity of mg tablets 00:00: SEE-INSTRU [place] 00 CTIONS. Medical follow Branch package directions methylPREDN 3-0 Yes [id number] Take by [facility] ISolone 4 2-21 mouth ity of mg tablets 00:00: SEE-INSTRU [place] 00 CTIONS. Medical follow Branch package directions methylPREDN 3-0 Yes [id number] Take by [facility] ISolone 4 2-21 mouth ity of mg tablets 00:00: SEE-INSTRU [place] 00 CTIONS. Medical follow Branch package directions methylPREDN 3-0 Yes [id number] Take by [facility] ISolone 4 2-21 mouth ity of mg tablets 00:00: SEE-INSTRU [place] 00 CTIONS. Medical follow Branch package directions methylPREDN 3-0 Yes [id number] Take by [facility] ISolone 4 2-21 mouth ity of mg tablets 00:00: SEE-INSTRU [place] 00 CTIONS. Medical follow Branch package directions methylPREDN 3-0 Yes [id number] Take by [facility] ISolone 4 2-21 mouth ity of mg tablets 00:00: SEE-INSTRU [place] 00 CTIONS. Medical follow Branch package directions methylPREDN 2023-0 2023- No [id number] Take by [facility] ISolone 4 2-21 -28 mouth ity of mg tablets 00:00: 00:00 SEE-INSTRU [place] 00 :00 CTIONS. Medical follow Branch package directions methylPREDN 2023-0 2023- No [id number] Take by [facility] ISolone 4 2-21 -28 mouth ity of mg tablets 00:00: 00:00 SEE-INSTRU [place] 00 :00 CTIONS. Medical follow Branch package directions miSOPROStoL 3-0 Yes [id number] Take one [facility] 200 mcg 2-15 tablet ity of tablet 00:00: night [place] 00 before Medical procedure, Branch then take one tablet morning of procedure miSOPROStoL 2023-0 Yes [id number] Take one [facility] 200 mcg 2-15 tablet ity of tablet 00:00: night [place] 00 before Medical procedure, Branch then take one tablet morning of procedure miSOPROStoL 202-0 Yes [id number] Take one [facility] 200 mcg 2-15 tablet ity of tablet 00:00: night [place] 00 before Medical procedure, Branch then take one tablet morning of procedure miSOPROStoL 2022-0 Yes [id number] Take one [facility] 200 mcg 2-15 tablet ity of tablet 00:00: night [place] 00 before Medical procedure, Branch then take one tablet morning of procedure miSOPROStoL 202-0 Yes [id number] Take one [facility] 200 mcg 2-15 tablet ity of tablet 00:00: night [place] 00 before Medical procedure, Branch then take one tablet morning of procedure miSOPROStoL 202-0 Yes [id number] Take one [facility] 200 mcg 2-15 tablet ity of tablet 00:00: night [place] 00 before Medical procedure, Branch then take one tablet morning of procedure miSOPROStoL 2022-0 Yes [id number] Take one [facility] 200 mcg 2-15 tablet ity of tablet 00:00: night [place] 00 before Medical procedure, Branch then take one tablet morning of procedure miSOPROStoL 2022-0 Yes [id number] Take one [facility] 200 mcg 2-15 tablet ity of tablet 00:00: night [place] 00 before Medical procedure, Branch then take one tablet morning of procedure miSOPROStoL 2023-0 2023- No [id number] Take one [facility] 200 mcg 2-15 02-28 tablet ity of tablet 00:00: 00:00 night [place] 00 :00 before Medical procedure, Branch then take one tablet morning of procedure miSOPROStoL 2023-0 2023- No [id number] Take one [facility] 200 mcg 2-15 02-28 tablet ity of tablet 00:00: 00:00 night [place] 00 :00 before Medical procedure, Branch then take one tablet morning of procedure metroNIDAZO 2023-0 Yes [id number] 500mg Take 1 [facility] LE 500 mg 1-31 tablet by ity o f tablet 00:00: mouth [place] 00 every 12 Medical (twelve) Branch hours. metroNIDAZO 2023-0 Yes [id number] 500mg Take 1 [facility] LE 500 mg 1-31 tablet by ity o f tablet 00:00: mouth [place] 00 every 12 Medical (twelve) Branch hours. metroNIDAZO 3-0 Yes [id number] 500mg Take 1 [facility] LE 500 mg 1-31 tablet by ity o f tablet 00:00: mouth [place] 00 every 12 Medical (twelve) Branch hours. metroNIDAZO 3-0 Yes [id number] 500mg Take 1 [facility] LE 500 mg 1-31 tablet by ity o f tablet 00:00: mouth [place] 00 every 12 Medical (twelve) Branch hours. metroNIDAZO 3-0 Yes [id number] 500mg Take 1 [facility] LE 500 mg 1-31 tablet by ity o f tablet 00:00: mouth [place] 00 every 12 Medical (twelve) Branch hours. metroNIDAZO 3-0 Yes [id number] 500mg Take 1 [facility] LE 500 mg 1-31 tablet by ity o f tablet 00:00: mouth [place] 00 every 12 Medical (twelve) Branch hours. metroNIDAZO 2022-0 Yes [id number] 500mg Take 1 [facility] LE 500 mg 1-31 tablet by ity o f tablet 00:00: mouth [place] 00 every 12 Medical (twelve) Branch hours. metroNIDAZO 2022-0 Yes [id number] 500mg Take 1 [facility] LE 500 mg 1-31 tablet by ity o f tablet 00:00: mouth [place] 00 every 12 Medical (twelve) Branch hours. metroNIDAZO 3-0 Yes [id number] 500mg Take 1 [facility] LE 500 mg 1-31 tablet by ity o f tablet 00:00: mouth [place] 00 every 12 Medical (twelve) Branch hours. metroNIDAZO 3-0 Yes [id number] 500mg Take 1 [facility] LE 500 mg 1-31 tablet by ity o f tablet 00:00: mouth [place] 00 every 12 Medical (twelve) Branch hours. metroNIDAZO 3-0 Yes [id number] 500mg Take 1 [facility] LE 500 mg 1-31 tablet by ity o f tablet 00:00: mouth [place] 00 every 12 Medical (twelve) Branch hours. metroNIDAZO 3-0 Yes [id number] 500mg Take 1 [facility] LE 500 mg 1-31 tablet by ity o f tablet 00:00: mouth [place] 00 every 12 Medical (twelve) Branch hours. metroNIDAZO 2023-0 Yes [id number] 500mg Take 1 [facility] LE 500 mg 1-31 tablet by ity o f tablet 00:00: mouth [place] 00 every 12 Medical (twelve) Branch hours. metroNIDAZO 2022-0 Yes [id number] 500mg Take 1 [facility] LE 500 mg 1-31 tablet by ity o f tablet 00:00: mouth [place] 00 every 12 Medical (twelve) Branch hours. metroNIDAZO 2022-0 Yes [id number] 500mg Take 1 [facility] LE 500 mg 1-31 tablet by ity o f tablet 00:00: mouth [place] 00 every 12 Medical (twelve) Branch hours. metroNIDAZO 2022-0 Yes [id number] 500mg Take 1 [facility] LE 500 mg 1-31 tablet by ity o f tablet 00:00: mouth [place] 00 every 12 Medical (twelve) Branch hours. metroNIDAZO 2022-0 Yes [id number] 500mg Take 1 [facility] LE 500 mg 1-31 tablet by ity o f tablet 00:00: mouth [place] 00 every 12 Medical (twelve) Branch hours. metroNIDAZO 2022-0 Yes [id number] 500mg Take 1 [facility] LE 500 mg 1-31 tablet by ity o f tablet 00:00: mouth [place] 00 every 12 Medical (twelve) Branch hours. metroNIDAZO 2022-0 2022- No [id number] 500mg Take 1 [facility] LE 500 mg -- tablet by ity of tablet 00:00: 00:00 mouth [place] 00 :00 every 12 Medical (twelve) Branch hours. metroNIDAZO 2022-0 2022- No [id number] 500mg Take 1 [facility] LE 500 mg --28 tablet by ity of tablet 00:00: 00:00 mouth [place] 00 :00 every 12 Medical (twelve) Branch hours. fluconazole 2022-0 2022- No [id number] 150mg Take 1 [facility] (DIFLUCAN) 11-01 tablet by ity of 150 mg 00:00: 05:59 mouth [place] tablet 00 :00 now for 1 Medical dose. Branch Meloxicam 2021-10 Yes Sakina 7.5 MG oral 2-18 [facility] Tablet 00:00: - 00 Externa l Dose 2021-10 No Unknown 2-18 00:00: 00 Dose 2021-10 No Unknown 2-18 00:00: 00 Dose 2021-10 No Unknown 2-18 00:00: 00 Meloxicam 2021-2022- No Sakina 7.5 MG oral 2-18 09-12 [facility] Tablet 00:00: 00:00 - 00 :00 Externa l Dose 2021-10 No Unknown 2-16 00:00: 00 Dose 2021- No Unknown 2-16 00:00: 00 Dose 2021- No Unknown 2-16 00:00: 00 Dose 2021- No Unknown 2-16 00:00: 00 Dose 2021- No Unknown 2-16 00:00: 00 Dose 2021- No Unknown 2-16 00:00: 00 TAKE 1 [...] Unknown 2-15 00:00: 00 TAKE 10 ML 2021-10 No BY MOUTH 2-15 EVERY 4 00:00: [...] 2021- No Unknown 2-15 00:00: 00 Dose 2021-10 [...] 2-15 00:00: 00 Mobic 7.5 Mobic 7.5 2021-2022- No 1{table QD Mobic 7.5 MG MG 2-15 - t} MG 00:00: 00:00 00 :00 Mobic 7.5 Mobic 7.5 2021-2022- No 1{table QD Mobic 7.5 MG MG 2-15 10-15 t} MG 00:00: 00:00 00 :00 Mobic 7.5 Mobic 7.5 2021-2022- No 1{table QD Mobic 7.5 MG MG 2-15 - t} MG 00:00: 00:00 00 :00 Dose 2022-0 No 500 Unknown 06-09 00:00: 00 TAKE 1 2022-0 No CAPSULE BY 9-08 MOUTH TWICE 00:: A DAY 00 TAKE 1 2022-0 No TABLET BY 9-08 MOUTH TWICE 00:: A DAY 00 TAKE [...] 00:: A DAY 00 Dose 2022-0 No 500 Unknown 06-09 00:00: 00 TAKE 1 2022-0 No CAPSULE BY 9-08 MOUTH TWICE 00:: A DAY 00 Dose 2022-0 No 500 [...] PAIN SPRAY 2 2022-0 No SPRAYS INTO 05-09 EACH 00:00: NOSTRIL 00 EVERY DAY Dose [...] PAIN SPRAY 2 2022-0 No SPRAYS INTO 05-09 EACH 00:00: NOSTRIL 00 EVERY DAY Dose [...] BY 7-27 MOUTH ONCE 00:: A 00 escitalopra 2022-0 No 1mg m 10 [...] No Unknown - 00:00: 00 TAKE 1 2022-0 No 325 [...] 4 DAYS TAKE 1 2022-0 No TABLET 6- SINGLE 00:00: DOSSE 00 Dose 2022-0 No Unknown 03-23 00:00: 00 TAKE 2 2022-0 No TABLETS BY 6-22 MOUTH 00:00: TAKE 1 TABLET DAILY FOR 4 DAYS TAKE 1 2022-0 No TABLET 6- SINGLE 00:00: DOSSE 00 Dose 2022-0 No [...] 2022-0 No TABLETS BY 6-22 MOUTH 00:00: TODAY, THEN 00 TAKE 1 TABLET DAILY FOR 4 DAYS metronidazo 2022-0 No 1mg le 500 mg 6-17 tablet [...] No Unknown -17 00:00: 00 TAKE 1 2021-0 No TABLET [...] Dose 2-0 No Unknown 03-18 00:00: 00 metronidazo 2-0 No 1mg le [...] 00:00: DAY 00 Dose 2-0 No Unknown 617 00:00: 00 TAKE 1 2021-0 No TABLET BY 6-17 MOUTH TWICE 00:00: A DAY 00 TAKE 1 2021-0 No CAPSULE BY 6-17 MOUTH 3 00:00: TIMES A DAY 00 NEEDED FOR COUGH Claritin 10 2021-0 No 1mg mg tablet 3 00:00: 00 fluticasone 2-0 No 2mcg/ac propionate 3- tuation 50 00:00: mcg/actuati 00 on nasal spray,suspe nsion Dose 2021-0 No Unknown 3 00:00: 00 fluticasone 2-0 No 2mcg/ac propionate 3- tuation 50 00:00: mcg/actuati 00 on nasal spray,suspe nsion Dose 2022-0 No Unknown 3- 00:00: 00 Dose 2-0 No Unknown 3 00:00: 00 Dose 2-0 No Unknown 3 00:00: 00 Dose 2-0 No Unknown 3 00:00: 00 Dose 2-0 No Unknown 3 00:00: 00 Dose 2-0 No Unknown 3 00:00: 00 Claritin 10 2-0 No 1mg mg tablet 3- 00:00: 00 [...] 00:00: 00 fluticasone 2-0 No 2mcg/ac propionate 311 tuation 50 00:00: [...] 100 mg 6-05 capsule 00:00: 00 Macrobid 2020-0 No 1mg 100 mg 6-05 capsule 00:00: 00 Macrobid 2020-0 No 1mg 100 mg 6-05 capsule 00:00: 00 Macrobid 1-0 No 1mg 100 mg 6-05 capsule 00:00: 00 Macrobid 1-0 No 1mg 100 mg 6-05 capsule 00:00: 00 Macrobid 2020-0 No 1mg 100 mg 6-05 capsule 00:00: 00 Macrobid 1-0 No 1mg 100 mg 6-05 capsule 00:00: 00 Macrobid 2020-0 No 1mg 100 mg 6-05 capsule 00:00: 00 Macrobid 2020-0 No 1mg 100 mg 6-05 [...] pirit one) one) 00:00: - [facility] 00 [facility] Singulair Singulair 2020-0 No 1{table QD Singulair 10 MG 10 MG 2-02 t} 10 MG 00:00: 00 Kenalog Kenalog 2020-0 No 40mg Common (Triamcinol (Triamcinol 2-02 S pirit one) one) 00:00: - [facility] 00 [facility] Singulair Singulair 2020-0 No 1{table QD Singulair 10 MG 10 MG 2-02 t} 10 MG 00:00: 00 Kenalog Kenalog 2020-0 No 40mg Common (Triamcinol (Triamcinol 2-02 S pirit one) one) 00:00: - [facility] 00 [facility] Singulair Singulair 2020-0 No 1{table QD Singulair 10 MG 10 MG 2-02 t} 10 MG 00:00: 00 Kenalog Kenalog 2020-0 No 40mg Common (Triamcinol (Triamcinol 2-02 S pirit one) one) 00:00: - [facility] 00 [facility] Singulair Singulair 2020-0 No 1{table QD Singulair 10 MG 10 MG 2-02 t} 10 MG 00:00: 00 Kenalog Kenalog 0 No 40mg Common (Triamcinol (Triamcinol 2-02 S pirit one) one) 00:00: - [facility] 00 [facility] Singulair Singulair No 1{table QD Singulair 10 MG 10 MG 2-02 t} 10 MG 00:00: 00 Kenalog Kenalog No 40mg Common (Triamcinol (Triamcinol 2-02 S pirit one) one) 00:00: - [facility] 00 [facility] Acetaminoph Acetaminoph 202- No 1{table BID Acetaminop [...] 00:00: 00:00 MG 00 :00 Zyrtec Zyrtec 0 2020- No 1{table BID Zyrtec Allergy 10 [...] (90 Base) MCG/ACT MCG/ACT MCG/ACT Pulse Pulse 2020-1 No Pulse Oximeter Oximeter 2-22 Oximeter For Finger For Finger 00:00: For Finger - - 00 - Albuterol Albuterol 2019- No 2{puffs 6xD Albuterol Sulfate HFA Sulfate HFA 2-22 _as_nee Sulfate 108 (90 108 (90 00:00: ded} HFA 108 Base) Base) 00 (90 Base) MCG/ACT MCG/ACT MCG/ACT Albuterol Albuterol 2019-10 No 2{puffs 6xD Albuterol Sulfate HFA Sulfate HFA 2-22 _as_nee Sulfate 108 (90 108 (90 00:00: ded} HFA 108 Base) Base) 00 (90 Base) MCG/ACT MCG/ACT MCG/ACT Pulse Pulse 2020- No Pulse Oximeter Oximeter 2-22 Oximeter For [...] (90 Base) MCG/ACT MCG/ACT MCG/ACT Pulse Pulse 2020-1 No Pulse Oximeter Oximeter 2-22 Oximeter For [...] MG MG 00:00[facility] BID Zyrtec Allergy 10 Allergy 10 11-23 t} Allergy 10 MG MG 00:00: 00:00 [facility]{table BID Zyrtec Allergy 10 [...] 9-12 Spiri t 00:00: - [facility] 00 [facility] Solumedrol Solumedrol 2018-0 No 125mg Common 125mg/2ml 125mg/2ml 9-12 Spiri t 00:00: - [facility] 00 [facility] Solumedrol Solumedrol 2018-0 No 125mg Common 125mg/2ml 125mg/2ml 9-12 Spiri t 00:00: - [facility] 00 [facility] Solumedrol Solumedrol 2018-0 No 125mg Common 125mg/2ml 125mg/2ml 9-12 Spiri t 00:00: - [facility] 00 [facility] Solumedrol Solumedrol 2018-0 No 125mg Common 125mg/2ml 125mg/2ml 9-12 Spiri t 00:00: - [facility] 00 [facility] Solumedrol Solumedrol 2018-0 No 125mg Common 125mg/2ml 125mg/2ml 9-12 Spiri t 00:00: - [facility] 00 [facility] ProAir HFA ProAir HFA 2017-0 Yes [place] 2 puffs as Common 7-17 [place] needed for Spirit 00:00: sob/wheezi - CHI 00 ng [facility] ProAir HFA ProAir HFA 2017-0 No ProAir [...] Base) - CHI MCG/ACT MCG/ACT 00 MCG/ACT [facility] ProAir HFA ProAir HFA 2018-0 No ProAir HFA 108 (90 108 (90 7-17 108 (90 Base) Base) 00:00: Base) MCG/ACT MCG/ACT 00 MCG/ACT ProAir HFA ProAir HFA 2018-0 No ProAir HFA 108 (90 108 (90 7-17 108 (90 Base) Base) 00:00: Base) MCG/ACT MCG/ACT 00 MCG/ACT Solumedrol Solumedrol 2018-0 No 125mg Common 125mg/2ml 125mg/2ml 03-23 Spiri t 00:00: - [facility] 00 [facility] Solumedrol Solumedrol 2018-0 No 125mg Common 125mg/2ml 125mg/2ml 03-23 Spiri t 00:00: - [facility] 00 [facility] Solumedrol Solumedrol 2018-0 No 125mg Common 125mg/2ml 125mg/2ml 03-23 Spiri t 00:00: - [facility] 00 [facility] Solumedrol Solumedrol 2018-0 No 125mg Common 125mg/2ml 125mg/2ml 03-23 Spiri t 00:00: - [facility] 00 [facility] Solumedrol Solumedrol 2018-0 No 125mg Common 125mg/2ml 125mg/2ml 03-23 Spiri t 00:00: - [facility] 00 [facility] Solumedrol Solumedrol 2018-0 No 125mg Common 125mg/2ml 125mg/2ml 03-23 Spiri t 00:00: - [facility] 00 [facility] metronidazo 2018-0 No 1mg le 500 mg [...] pirit one) one) 00:00: - [facility] 00 [facility] Kenalog Kenalog 2018-0 No 40mg Common (Triamcinol (Triamcinol 3-06 S pirit one) one) 00:00: - [facility] 00 [facility] Kenalog Kenalog 2018-0 No 40mg Common (Triamcinol (Triamcinol 3-06 S pirit one) one) 00:00: - [facility] 00 [facility] Kenalog Kenalog 2018-0 No 40mg Common (Triamcinol (Triamcinol 3-06 S pirit one) one) 00:00: - [facility] 00 [facility] Kenalog Kenalog 2018-0 No 40mg Common (Triamcinol (Triamcinol 3-06 S pirit one) one) 00:00: - [facility] 00 [facility] Kenalog Kenalog 2018-0 No 40mg Common (Triamcinol (Triamcinol 3-06 S pirit one) one) 00:00: - [facility] 00 [facility] fluticasone 2018-0 No 2mcg/ac 50 1-03 tuation [...] 100 1-03 [facility]} Take 1 Un renate ne 0.35 mg 2-01 tablet by ity of tablet 00:00: mouth [place] 00 daily. [facility] Yes 1{tbl} Take 1 Un renate ne 0.35 mg 2-01 tablet by ity of tablet 00:00: mouth [place] 00 daily. [facility] Yes 1{tbl} Take 1 Un renate ne 0.35 mg 2-01 tablet by ity of tablet 00:00: mouth [place] 00 daily. [facility] Yes 1{tbl} Take 1 Un renate ne 0.35 mg 2-01 tablet by ity of tablet 00:00: mouth [place] 00 daily. [facility] Yes 1{tbl} Take 1 Un renate ne 0.35 mg 2-01 tablet by ity of tablet 00:00: mouth [place] 00 daily. [facility] Yes 1{tbl} Take 1 Un renate ne 0.35 mg 2-01 tablet by ity of tablet 00:00: mouth [place] 00 daily. [facility] Yes 1{tbl} Take 1 Un renate ne 0.35 mg 2-01 tablet by ity of tablet 00:00: mouth [place] 00 daily. [facility] Yes 1{tbl} Take 1 Un renate ne 0.35 mg 2-01 tablet by ity of tablet 00:00: mouth [place] [facility]{tbl} Take 1 Un renate ne 0.35 mg 2-01 tablet by ity of tablet 00:00: mouth [place] 00 daily. [facility] 2016-10 Yes 1{tbl} Take 1 Un renate ne 0.35 mg 2-01 tablet by ity of tablet 00:00: [facility] [place] [facility] Take 1 Un renate ne 0.35 mg 2-01 tablet by ity of tablet 00:00: mouth [place] [facility] 1{tbl} Take 1 Un renate ne 0.35 mg 2-01 tablet by ity of tablet 00:00: mouth [place] [facility] 1{tbl} Take 1 Un renate ne 0.35 mg 2-01 tablet by ity of tablet 00:00: mouth [place] [facility] 1{tbl} Take 1 Un renate ne 0.35 mg 2-01 tablet by ity of tablet 00:00: mouth [place] 00 daily. [facility] 2016-10 Yes 1{tbl} Take 1 Un renate ne 0.35 mg 2-01 tablet by ity of tablet 00:00: mouth [place] 00 daily. [facility] 2016-10 Yes 1{tbl} Take 1 Un renate ne 0.35 mg 2-01 tablet by ity of tablet 00:00: mouth [place] [facility] 1{tbl} Take 1 Un renate ne 0.35 mg 2-01 tablet by ity of tablet 00:00: mouth [place] [facility] 1{tbl} Take 1 Un renate ne 0.35 mg 2-01 tablet by ity of tablet 00:00: mouth [place] [facility] 1{tbl} Take 1 Un renate ne 0.35 mg 2-01 tablet by ity of tablet 00:00: mouth [place] [facility] 1{tbl} Take 1 Un renate ne 0.35 mg 2-01 tablet by ity of tablet 00:00: mouth [place] [facility] 1{tbl} Take 1 Un renate ne 0.35 mg 2-01 tablet by ity of tablet 00:00: mouth [place] 00 daily. [facility] 2016-10 Yes 1{tbl} Take 1 Un rentae ne 0.35 mg 2-01 tablet by ity of tablet 00:00: mouth [place] 00 daily. [facility] 2016-10 Yes 1{tbl} Take 1 Un renate ne 0.35 mg 2-01 tablet by ity of tablet 00:00: mouth [place] 00 daily. [facility] 2016-10 Yes 1{tbl} Take 1 Un renate ne 0.35 mg 2-01 tablet by ity of tablet 00:00: mouth [place] 00 daily. [facility] 2016-10 Yes 1{tbl} Take 1 Un renate ne 0.35 mg 2-01 tablet by ity of tablet 00:00: mouth [place] 00 daily. [facility] 2016-10 Yes 1{tbl} Take 1 Un renate ne 0.35 mg 2-01 tablet by ity of tablet 00:00: mouth [place] 00 daily. [facility] 2016-10 Yes 1{tbl} Take 1 Un renate ne 0.35 mg 2-01 tablet by ity of tablet 00:00: mouth [place] 00 daily. [facility] 2016-10 Yes 1{tbl} Take 1 Un renate ne 0.35 mg 2-01 tablet by ity of tablet 00:00: mouth [place] 00 daily. [facility] 2016-10 Yes 1{tbl} Take 1 Un renate ne 0.35 mg 2-01 tablet by ity of tablet 00:00: mouth [place] 00 daily. [facility] 2016-10 Yes 1{tbl} Take 1 Un renate ne 0.35 mg 2-01 tablet by ity of tablet 00:00: mouth [place] 00 daily. [facility] 2016-10 Yes 1{tbl} Take 1 Un renate ne 0.35 mg 2-01 tablet by ity of tablet 00:00: mouth [place] 00 daily. [facility] 2016-10 Yes 1{tbl} Take 1 Un renate ne 0.35 mg 2-01 tablet by ity of tablet 00:00: mouth [place] 00 daily. [facility] 2016-10 Yes 1{tbl} Take 1 Un renate ne 0.35 mg 2-01 tablet by ity of tablet 00:00: mouth [place] 00 [facility]. [facility] Take 1 Un renate ne 0.35 mg 2-01 tablet by ity of tablet 00:00: mouth [place] 00 [facility]. [facility]} Take 1 Un renate ne 0.35 mg 2-01 tablet by ity of tablet 00:00: mouth [place] 00 daily. [facility] Take 1 Un renate ne 0.35 mg 2-01 tablet by ity of tablet 00:00: mouth [place] 00 daily. [facility]{tbl} Take 1 Un renate ne 0.35 mg 2-01 tablet by ity of tablet 00:00: mouth [place] 00 [facility]. [facility]} Take 1 Un renate ne 0.35 mg 2-01 tablet by ity of tablet 00:00: mouth [place] 00 daily. Medical [facility] 2016-10 Yes 1{tbl} Take 1 Un renate ne 0.35 mg 2-01 tablet by ity of tablet 00:00: mouth [place] 00 daily. [facility] 2016-10 Yes 1{tbl} Take 1 Un renate ne 0.35 mg 2-01 tablet by ity of tablet 00:00: mouth [place] 00 daily. [facility]{tbl} Take 1 Un renate ne 0.35 mg 2-01 tablet by ity of tablet 00:00: mouth [place] 00 [facility]. [facility]{tbl} Take 1 Un renate ne 0.35 mg 2-01 tablet by ity of tablet 00:00: mouth [place] 00 daily. [facility] 1{tbl} Take 1 Un renate ne 0.35 mg 2-01 tablet by ity of tablet 00:00: mouth [place] 00 daily. [facility]} Take 1 Un renate ne 0.35 mg 2-01 tablet by ity of tablet 00:00: mouth [place] [facility]} Take 1 Un renate ne 0.35 mg 2-01 tablet by ity of tablet 00:00: mouth [place] 00 [facility]. [facility]{tbl} Take 1 Un renate ne 0.35 mg 2-01 tablet by ity of tablet 00:00: mouth [place] 00 daily. [facility] 2016-10 Yes 1{tbl} Take 1 Un renate ne 0.35 mg 2-01 tablet by ity of tablet 00:00: mouth [place] 00 [facility]. [facility]{tbl} Take 1 Un renate ne 0.35 mg 2-01 tablet by ity of tablet 00:00: mouth [place] 00 daily. [facility] 2016-10 Yes 1{tbl} Take 1 Un renate ne 0.35 mg 2-01 tablet by ity of tablet 00:00: mouth [place] 00 daily. [facility] 2016-10 Yes 1{tbl} Take 1 Un renate ne 0.35 mg 2-01 tablet by ity of tablet 00:00: mouth [place] 00 daily. [facility] 2016-10 Yes 1{tbl} Take 1 Un renate ne 0.35 mg 2-01 tablet by ity of tablet 00:00: mouth [place] 00 daily. [facility] 2016-10 Yes 1{tbl} Take 1 Un renate ne 0.35 mg 2-01 tablet by ity of tablet 00:00: mouth [place] 00 daily. [facility] 2016-10 Yes 1{tbl} Take 1 Un renate ne 0.35 mg 2-01 tablet by ity of tablet 00:00: mouth [place] 00 daily. [facility] 2016-10 Yes 1{tbl} Take 1 Un renate ne 0.35 mg 2-01 tablet by ity of tablet 00:00: mouth [place] 00 daily. [facility] 2016-10 Yes 1{tbl} Take 1 Un renate ne 0.35 mg 2-01 tablet by ity of tablet 00:00: mouth [place] 00 [facility]. [facility] 1{tbl} Take 1 Un renate ne 0.35 mg 2-01 tablet by ity of tablet 00:00: mouth [place] 00 daily. [facility] 2016-10 Yes 1{tbl} Take 1 Un renate ne 0.35 mg 2-01 tablet by ity of tablet 00:00: mouth [place] 00 daily. [facility] 2016-10- No 1{tbl} Take 1 U nivers ne 0.35 mg 2-10 04-28 tablet by ity of tablet 00:00: 00:00 mouth [place] 00 :00 daily. [facility] 2016-10- No 1{tbl} Take 1 U nivers ne 0.35 mg 2-10 04- tablet by ity of tablet 00:00: 00:00 mouth [place] 00 :00 daily. [facility] 2016-10- No 1{tbl} Take 1 U nivers ne 0.35 mg 2-10 04- tablet by ity of tablet 00:00: 00:00 mouth [place] 00 :00 daily. [facility] 2016-10- No 1{tbl} Take 1 U nivers ne 0.35 mg 2-10 04- tablet by ity of tablet 00:00: 00:00 mouth [place] 00 :00 daily. [facility] 2016-10- No 1{tbl} Take 1 U nivers ne 0.35 mg 2-10 04- tablet by ity of tablet 00:00: 00:00 mouth [place] 00 :00 daily. [facility] 2016-10- No 1{tbl} Take 1 U nivers ne 0.35 mg 2-10 04- tablet by ity of tablet 00:00: 00:00 mouth [place] 00 :00 daily. [facility] 2016-10- No 1{tbl} Take 1 U nivers ne 0.35 mg 2-10 04-28 tablet by ity of tablet 00:00: 00:00 mouth [place] 00 :00 daily. [facility] cyclobenzap 2016-10 Yes 5mg Take 1 [...] pentazocine 2016-10 Yes 1{tbl} Take 1 Un rneate -naloxone 1-05 tablet by ity o f [...] Branch hours as needed for Pain. cyclobenzap 2017- Yes 5mg Take 1 Univ ers rine [...] No 1{tbl} Take 1 U nivers -naloxone - 03-28 tablet by ity of 50-0.5 mg 00:00: 00:00 mouth [place] tablet 00 :00 every 6 Medical (six) Branch hours as needed for Pain. cyclobenzap 2016-10- No 5mg Take 1 Uni vers rine 5 mg 10-06 02-28 tablet by ity of tablet 00:00: 00:00 mouth 3 [place] 00 :00 (three) Medical times Branch daily. cyclobenzap 2016-10- No 5mg Take 1 Uni vers rine 5 mg -05 -28 tablet by ity of tablet 00:00: [...] HOURS Branch NEEDED FOR MUSCLE SPASMS. cyclobenzap 0 Yes TAKE 1 Univ ers rine 10 mg 8-28 TABLET BY ity of tablet 00:00: MOUTH [place] 00 EVERY 8 Medical HOURS Branch NEEDED FOR MUSCLE SPASMS. cyclobenzap 2016- Yes TAKE 1 Univ ers rine 10 [...] No 100mg Take 1 Cap Univers (TESSALON 9-28 by mouth 3 ity of PERLES) 100 00:00: 00:00 (three) [place] mg capsule 00 :00 times Medical daily as Branch needed for Cough. benzonatate 2022- No 100mg Take 1 Cap Univers (TESSALON 9-28 by mouth 3 ity of PERLES) 100 00:00: 00:00 (three[place] capsule 00 :00 times Medical daily as Branch needed for Cough. Norethindro Norethindro Yes [place] not Common ne ne [place] defined [facility] IUD's IUD's Yes [place] Paragard Common [place] IUD [facility] Flonase Flonase Yes [place] not Common [place] defined [facility] ZyrTE ZyrTEC Yes [place] not Common [place] defined [facility] Vitamin B12 Vitamin B12 Yes [place] (OTC) 1 Common [place] tablet [facility] Azithromyci Azithromyci No Azithromyc n 500 MG n 500 MG in 500 MG Flonase Flonase No Flonase Vitamin B12 Vitamin B12 No Vitamin mg mg B12 mg ZyrTEC ZyrTEC No ZyrTEC Vitamin D Vitamin D No 1{capsu QD Vitamin D 50 MCG 50 MCG le} 50 MCG (1999 [place] (1999 [place] (1999 [place] Norethindro Norethindro No [...] le} 50 MCG (1999) (1999) (1999 [place]) Flonase Flonase No Flonase IUD's IUD's No [...] Norethindro No Norethindr Common ne ne one [facility] Ferrous Ferrous No Ferrous Sulfate [...] No IUD's IUD's IUD's No IUD's Common [facility] Benadryl Benadryl No Benadryl Allergy 25 Allergy 25 Allergy 25 MG MG MG Azithromyci Azithromyci No Azithromyc n 500 MG n 500 MG in 500 MG Vitamin B12 Vitamin B12 No Vitamin Common mg mg B12 mg [facility] Montelukast Montelukast No Montelukas Sodium 10 Sodium 10 t Sodium MG MG 10 MG Tylenol Tylenol No Tylenol Cetirizine Cetirizine No Cetirizine HCl 10 MG HCl 10 MG HCl 10 MG methylPREDN methylPREDN No methylPRED ISolone 4 ISolone 4 NISolone 4 MG MG MG Meloxicam Meloxicam No Meloxicam 7.5 MG 7.5 MG 7.5 MG ZyrTEC ZyrTEC No ZyrTEC Common [facility] Ferrous Ferrous No Ferrous Sulfate [...] 500 MG Flonase Flonase No Flonase Common [facility] Vitamin D Vitamin D No 1{capsu QD Vitamin D Common 50 MCG 50 MCG le} 50 MCG Spirit (1999) (1999) (1999) [facility] Norethindro Norethindro No Norethindr ne ne [...] IUD's IUD's No IUD's Immunizations Ordered Filled Date Status Comments Source Immunization Name Immunization Name Influenza, 2022-06-21 Completed injectable, [place] 00:00:00 [facility] [facility], preservative-free, quadrivalent Influenza, 2022-06-21 Completed [...] quadrivalent Influenza, 2022-06-21 Completed injectable, [place] 00:00:00 [place] [facility], preservative-free, quadrivalent Influenza, 2022-06-21 Completed Sakina Finley - Injectable, Mdck, 00:00:00 Externa l Preservative Free, Quadrivalent Influenza Virus 2021-07-06 Completed Sakina ovalles - Vaccine, No 00:00:00 External Preserv, age 6 months and up SARS-COV-2 COVID-19 2021-01-09 Completed Unive rsity of PFIZER VACCINE 00:00:00 [facility] SARS-COV-2 COVID-19 2021-01-09 Completed Unive rsity of PFIZER VACCINE 00:00:00 [facility] SARS-COV-2 COVID-19 2021-01-09 Completed Unive rsity of PFIZER VACCINE 00:00:00 [facility] SARS-COV-2 COVID-19 2021-01-09 Completed Unive rsity of PFIZER VACCINE 00:00:00 [facility] SARS-COV-2 COVID-19 2021-01-09 Completed Unive rsity of PFIZER VACCINE 00:00:00 [facility] SARS-COV-2 COVID-19 2021-01-09 Completed Unive rsity of PFIZER VACCINE 00:00:00 [facility] SARS-COV-2 COVID-19 2021-01-09 Completed Unive rsity of PFIZER VACCINE 00:00:00 [facility] SARS-COV-2 COVID-19 2021-01-09 Completed Unive rsity of PFIZER VACCINE 00:00:00 [place] [facility] SARS-COV-2 COVID-19 2021-01-09 Completed Unive rsity of PFIZER VACCINE 00:00:00 [place] [facility] SARS-COV-2 COVID-19 2021-01-09 Completed Unive rsity of PFIZER VACCINE 00:00:00 [place] [facility] SARS-COV-2 COVID-19 2021-01-09 Completed Unive rsity of PFIZER VACCINE 00:00:00 [facility] SARS-COV-2 COVID-19 2021-01-09 Completed Unive rsity of PFIZER VACCINE 00:00:00 [facility] SARS-COV-2 COVID-19 2021-01-09 Completed Unive rsity of PFIZER VACCINE 00:00:00 [place] [facility] SARS-COV-2 COVID-19 2021-01-09 Completed Unive rsity of PFIZER VACCINE 00:00:00 [place] [facility] SARS-COV-2 COVID-19 2021-01-09 Completed Unive rsity of PFIZER VACCINE 00:00:00 [place] [facility] SARS-COV-2 COVID-19 2021-01-09 Completed Unive rsity of PFIZER VACCINE 00:00:00 [place] [facility] SARS-COV-2 COVID-19 2021-01-09 Completed Unive rsity of PFIZER VACCINE 00:00:00 [place] [facility] SARS-COV-2 COVID-19 2021-01-09 Completed Unive rsity of PFIZER VACCINE 00:00:00 [place] [facility] SARS-COV-2 COVID-19 2021-01-09 Completed Unive rsity of PFIZER VACCINE 00:00:00 [place] [facility] SARS-COV-2 COVID-19 2021-01-09 Completed Unive rsity of PFIZER VACCINE 00:00:00 [place] [facility] SARS-COV-2 COVID-19 2021-01-09 Completed Unive rsity of PFIZER VACCINE 00:00:00 [place] [facility] SARS-COV-2 COVID-19 2021-01-09 Completed Unive rsity of PFIZER VACCINE 00:00:00 [place] [facility] SARS-COV-2 COVID-19 2021-01-09 Completed Unive rsity of PFIZER VACCINE 00:00:00 [place] [facility] SARS-COV-2 COVID-19 2021-01-09 Completed Unive rsity of PFIZER VACCINE 00:00:00 [place] [facility] SARS-COV-2 COVID-19 2021-01-09 Completed Unive rsity of PFIZER VACCINE 00:00:00 [place] [facility] SARS-COV-2 COVID-19 2021-01-09 Completed Unive rsity of PFIZER VACCINE 00:00:00 [place] [facility] SARS-COV-2 COVID-19 2021-01-09 Completed Unive rsity of PFIZER VACCINE 00:00:00 [place] [facility] SARS-COV-2 COVID-19 2021-01-09 Completed Unive rsity of PFIZER VACCINE 00:00:00 [place] [facility] SARS-COV-2 COVID-19 2021-01-09 Completed Unive rsity of PFIZER VACCINE 00:00:00 [place] [facility] SARS-COV-2 COVID-19 2021-01-09 Completed Unive rsity of PFIZER VACCINE 00:00:00 [place] [facility] SARS-COV-2 COVID-19 2021-01-09 Completed Unive rsity of PFIZER VACCINE 00:00:00 [place] [facility] SARS-COV-2 COVID-19 2021-01-09 Completed Unive rsity of PFIZER VACCINE 00:00:00 [place] [facility] SARS-COV-2 COVID-19 2021-01-09 Completed Unive rsity of PFIZER VACCINE 00:00:00 [place] [facility] SARS-COV-2 COVID-19 2021-01-09 Completed Unive rsity of PFIZER VACCINE 00:00:00 [place] [facility] SARS-COV-2 COVID-19 2021-01-09 Completed Unive rsity of PFIZER VACCINE 00:00:00 [place] [facility] SARS-COV-2 COVID-19 2021-01-09 Completed Unive rsity of PFIZER VACCINE 00:00:00 [place] [facility] SARS-COV-2 COVID-19 2021-01-09 Completed Unive rsity of PFIZER VACCINE 00:00:00 [place] [facility] SARS-COV-2 COVID-19 2021-01-09 Completed Unive rsity of PFIZER VACCINE 00:00:00 [place] [facility] SARS-COV-2 COVID-19 2021-01-09 Completed Unive rsity of PFIZER VACCINE 00:00:00 [place] [facility] SARS-COV-2 COVID-19 2021-01-09 Completed Unive rsity of PFIZER VACCINE 00:00:00 [place] [facility] SARS-COV-2 COVID-19 2021-01-09 Completed Unive rsity of PFIZER VACCINE 00:00:00 [place] [facility] SARS-COV-2 COVID-19 2021-01-09 Completed Unive rsity of PFIZER VACCINE 00:00:00 [place] [facility] SARS-COV-2 COVID-19 2021-01-09 Completed Unive rsity of PFIZER VACCINE 00:00:00 [place] [facility] SARS-COV-2 COVID-19 2021-01-09 Completed Unive rsity of PFIZER VACCINE 00:00:00 [place] [facility] SARS-COV-2 COVID-19 2021-01-09 Completed Unive rsity of PFIZER VACCINE 00:00:00 [place] [facility] SARS-COV-2 COVID-19 2021-01-09 Completed Unive rsity of PFIZER VACCINE 00:00:00 [place] [facility] SARS-COV-2 COVID-19 2021-01-09 Completed Unive rsity of PFIZER VACCINE 00:00:00 [place] [facility] SARS-COV-2 COVID-19 2021-01-09 Completed Unive rsity of PFIZER VACCINE 00:00:00 [place] [facility] SARS-COV-2 COVID-19 2021-01-09 Completed Unive rsity of PFIZER VACCINE 00:00:00 [place] [facility] SARS-COV-2 COVID-19 2021-01-09 Completed Unive rsity of PFIZER VACCINE 00:00:00 [place] [facility] SARS-COV-2 COVID-19 2021-01-09 Completed Unive rsity of PFIZER VACCINE 00:00:00 [place] [facility] SARS-COV-2 COVID-19 2021-01-09 Completed Unive rsity of PFIZER VACCINE 00:00:00 [place] [facility] SARS-COV-2 COVID-19 2021-01-09 Completed Unive rsity of PFIZER VACCINE 00:00:00 [place] [facility] SARS-COV-2 COVID-19 2021-01-09 Completed Unive rsity of PFIZER VACCINE 00:00:00 [place] [facility] SARS-COV-2 COVID-19 2021-01-09 Completed Unive rsity of PFIZER VACCINE 00:00:00 [place] [facility] SARS-COV-2 COVID-19 2021-01-09 Completed Unive rsity of PFIZER VACCINE 00:00:00 [place] [facility] SARS-COV-2 COVID-19 2021-01-09 Completed Unive rsity of PFIZER VACCINE 00:00:00 [place] [facility] SARS-COV-2 COVID-19 2021-01-09 Completed Unive rsity of PFIZER VACCINE 00:00:00 [place] [facility] SARS-COV-2 COVID-19 2021-01-09 Completed Unive rsity of PFIZER VACCINE 00:00:00 [place] [facility] SARS-COV-2 COVID-19 2021-01-09 Completed Unive rsity of PFIZER VACCINE 00:00:00 [place] [facility] SARS-COV-2 COVID-19 2021-01-09 Completed Unive rsity of PFIZER VACCINE 00:00:00 [place] [facility] SARS-COV-2 COVID-19 2021-01-09 Completed Unive rsity of PFIZER VACCINE 00:00:00 [place] [facility] SARS-COV-2 COVID-19 2021-01-09 Completed Unive rsity of PFIZER VACCINE 00:00:00 [place] [facility] SARS-COV-2 COVID-19 2021-01-09 Completed Unive rsity of PFIZER VACCINE 00:00:00 [place] [facility] SARS-COV-2 COVID-19 2021-01-09 Completed Unive rsity of PFIZER VACCINE 00:00:00 [place] [facility] SARS-COV-2 COVID-19 2021-01-09 Completed Unive rsity of PFIZER VACCINE 00:00:00 [place] [facility] SARS-COV-2 COVID-19 2021-01-09 Completed Unive rsity of PFIZER VACCINE 00:00:00 [place] [facility] SARS-COV-2 COVID-19 2021-01-09 Completed Unive rsity of PFIZER VACCINE 00:00:00 [place] [facility] SARS-COV-2 COVID-19 2021-01-09 Completed Unive rsity of PFIZER VACCINE 00:00:00 [place] [facility] SARS-COV-2 COVID-19 2021-01-09 Completed Unive rsity of PFIZER VACCINE 00:00:00 [place] [facility] SARS-COV-2 COVID-19 2021-01-09 Completed Unive rsity of PFIZER VACCINE 00:00:00 [place] [facility] SARS-COV-2 COVID-19 2021-01-09 Completed Unive rsity of PFIZER VACCINE 00:00:00 [place] [facility] SARS-COV-2 COVID-19 2021-01-09 Completed Unive rsity of PFIZER VACCINE 00:00:00 [place] [facility] SARS-COV-2 COVID-19 2021-01-09 Completed Unive rsity of PFIZER VACCINE 00:00:00 [place] [facility] SARS-COV-2 COVID-19 2021-01-09 Completed Unive rsity of PFIZER VACCINE 00:00:00 [place] [facility] SARS-COV-2 COVID-19 2021-01-09 Completed Unive rsity of PFIZER VACCINE 00:00:00 [place] [facility] SARS-COV-2 COVID-19 2021-01-09 Completed Unive rsity of PFIZER VACCINE 00:00:00 [place] [facility] SARS-COV-2 COVID-19 2021-01-09 Completed Unive rsity of PFIZER VACCINE 00:00:00 [place] [facility] SARS-COV-2 COVID-19 2021-01-09 Completed Unive rsity of PFIZER VACCINE 00:00:00 [place] [facility] SARS-COV-2 COVID-19 2021-01-09 Completed Unive rsity of PFIZER VACCINE 00:00:00 [place] [facility] SARS-COV-2 COVID-19 2021-01-09 Completed Unive rsity of PFIZER VACCINE 00:00:00 [place] [facility] SARS-COV-2 COVID-19 2021-01-09 Completed Unive rsity of PFIZER VACCINE 00:00:00 [place] [facility] SARS-COV-2 COVID-19 2021-01-09 Completed Unive rsity of PFIZER VACCINE 00:00:00 [facility] SARS-COV-2 COVID-19 2021-01-09 Completed Unive rsity of PFIZER VACCINE 00:00:00 [facility] SARS-COV-2 COVID-19 2021-01-09 Completed Unive rsity of PFIZER VACCINE 00:00:00 [place] [facility] SARS-COV-2 COVID-19 2021-01-09 Completed Unive rsity of PFIZER VACCINE 00:00:00 [facility] SARS-COV-2 COVID-19 2021-01-09 Completed Unive rsity of PFIZER VACCINE 00:00:00 [facility] SARS-COV-2 COVID-19 2021-01-09 Completed Unive rsity of PFIZER VACCINE 00:00:00 [place] [facility] SARS-COV-2 COVID-19 2021-01-09 Completed Unive rsity of PFIZER VACCINE 00:00:00 [facility] SARS-COV-2 COVID-19 2021-01-09 Completed Unive rsity of PFIZER VACCINE 00:00:00 [facility] SARS-COV-2 COVID-19 2021-01-09 Completed Unive rsity of PFIZER VACCINE 00:00:00 [facility] SARS-COV-2 COVID-19 2021-01-09 Completed Unive rsity of PFIZER VACCINE 00:00:00 [facility] SARS-COV-2 COVID-19 2021-01-09 Completed Unive rsity of PFIZER VACCINE 00:00:00 [facility] SARS-COV-2 COVID-19 2021-01-09 Completed Unive rsity of PFIZER VACCINE 00:00:00 [facility] SARS-COV-2 COVID-19 2021-01-09 Completed Unive rsity of PFIZER VACCINE 00:00:00 [facility] SARS-COV-2 COVID-19 2021-01-09 Completed Unive rsity of PFIZER VACCINE 00:00:00 [facility] SARS-COV-2 COVID-19 2021-01-09 Completed Unive rsity of PFIZER VACCINE 00:00:00 [facility] SARS-COV-2 COVID-19 2021-01-09 Completed Unive rsity of PFIZER VACCINE 00:00:00 [facility] SARS-COV-2 COVID-19 2021-01-09 Completed Unive rsity of PFIZER VACCINE 00:00:00 [facility] SARS-COV-2 COVID-19 2021-01-09 Completed Unive rsity of PFIZER VACCINE 00:00:00 [facility] SARS-COV-2 COVID-19 2020-12-19 Completed Unive rsity of PFIZER VACCINE 00:00:00 [facility] SARS-COV-2 COVID-19 2020-12-19 Completed Unive rsity of PFIZER VACCINE 00:00:00 [facility] SARS-COV-2 COVID-19 2020-12-19 Completed Unive rsity of PFIZER VACCINE 00:00:00 [facility] SARS-COV-2 COVID-19 2020-12-19 Completed Unive rsity of PFIZER VACCINE 00:00:00 [facility] SARS-COV-2 COVID-19 2020-12-19 Completed Unive rsity of PFIZER VACCINE 00:00:00 [facility] SARS-COV-2 COVID-19 2020-12-19 Completed Unive rsity of PFIZER VACCINE 00:00:00 [facility] SARS-COV-2 COVID-19 2020-12-19 Completed Unive rsity of PFIZER VACCINE 00:00:00 [facility] SARS-COV-2 COVID-19 2020-12-19 Completed Unive rsity of PFIZER VACCINE 00:00:00 [facility] SARS-COV-2 COVID-19 2020-12-19 Completed Unive rsity of PFIZER VACCINE 00:00:00 [facility] SARS-COV-2 COVID-19 2020-12-19 Completed Unive rsity of PFIZER VACCINE 00:00:00 [facility] SARS-COV-2 COVID-19 2020-12-19 Completed Unive rsity of PFIZER VACCINE 00:00:00 [facility] SARS-COV-2 COVID-19 2020-12-19 Completed Unive rsity of PFIZER VACCINE 00:00:00 [facility] SARS-COV-2 COVID-19 2020-12-19 Completed Unive rsity of PFIZER VACCINE 00:00:00 [facility] SARS-COV-2 COVID-19 2020-12-19 Completed Unive rsity of PFIZER VACCINE 00:00:00 [facility] SARS-COV-2 COVID-19 2020-12-19 Completed Unive rsity of PFIZER VACCINE 00:00:00 [facility] SARS-COV-2 COVID-19 2020-12-19 Completed Unive rsity of PFIZER VACCINE 00:00:00 [facility] SARS-COV-2 COVID-19 2020-12-19 Completed Unive rsity of PFIZER VACCINE 00:00:00 [facility] SARS-COV-2 COVID-19 2020-12-19 Completed Unive rsity of PFIZER VACCINE 00:00:00 [facility] SARS-COV-2 COVID-19 2020-12-19 Completed Unive rsity of PFIZER VACCINE 00:00:00 [place] [facility] SARS-COV-2 COVID-19 2020-12-19 Completed [facility] PFIZER VACCINE 00:00:00 [facility] SARS-COV-2 COVID-19 2020-12-19 Completed [facility] PFIZER VACCINE 00:00:00 [facility] SARS-COV-2 COVID-19 2020-12-19 Completed [facility] PFIZER VACCINE 00:00:00 [facility] SARS-COV-2 COVID-19 2020-12-19 Completed [facility] PFIZER VACCINE 00:00:00 [facility] SARS-COV-2 COVID-19 2020-12-19 Completed [facility] PFIZER VACCINE 00:00:00 [facility] SARS-COV-2 COVID-19 2020-12-19 Completed [facility] PFIZER VACCINE 00:00:00 [facility] SARS-COV-2 COVID-19 2020-12-19 Completed [facility] PFIZER VACCINE 00:00:00 [facility] SARS-COV-2 COVID-19 2020-12-19 Completed [facility] PFIZER VACCINE 00:00:00 [facility] SARS-COV-2 COVID-19 2020-12-19 Completed [facility] PFIZER VACCINE 00:00:00 [facility] SARS-COV-2 COVID-19 2020-12-19 Completed [facility] PFIZER VACCINE 00:00:00 [facility] SARS-COV-2 COVID-19 2020-12-19 Completed [facility] PFIZER VACCINE 00:00:00 [facility] SARS-COV-2 COVID-19 2020-12-19 Completed [facility] PFIZER VACCINE 00:00:00 [facility] SARS-COV-2 COVID-19 2020-12-19 Completed [facility] PFIZER VACCINE 00:00:00 [facility] SARS-COV-2 COVID-19 2020-12-19 Completed [facility] PFIZER VACCINE 00:00:00 [facility] SARS-COV-2 COVID-19 2020-12-19 Completed [facility] PFIZER VACCINE 00:00:00 [facility] SARS-COV-2 COVID-19 2020-12-19 Completed [facility] PFIZER VACCINE 00:00:00 [facility] SARS-COV-2 COVID-19 2020-12-19 Completed [facility] PFIZER VACCINE 00:00:00 [facility] SARS-COV-2 COVID-19 2020-12-19 Completed [facility] PFIZER VACCINE 00:00:00 [facility] SARS-COV-2 COVID-19 2020-12-19 Completed [facility] PFIZER VACCINE 00:00:00 [facility] SARS-COV-2 COVID-19 2020-12-19 Completed [facility] PFIZER VACCINE 00:00:00 [facility] SARS-COV-2 COVID-19 2020-12-19 Completed [facility] PFIZER VACCINE 00:00:00 [facility] SARS-COV-2 COVID-19 2020-12-19 Completed [facility] PFIZER VACCINE 00:00:00 [facility] SARS-COV-2 COVID-19 2020-12-19 Completed [facility] PFIZER VACCINE 00:00:00 [facility] SARS-COV-2 COVID-19 2020-12-19 Completed [facility] PFIZER VACCINE 00:00:00 [facility] SARS-COV-2 COVID-19 2020-12-19 Completed [facility] PFIZER VACCINE 00:00:00 [facility] SARS-COV-2 COVID-19 2020-12-19 Completed [facility] PFIZER VACCINE 00:00:00 [facility] SARS-COV-2 COVID-19 2020-12-19 Completed [facility] PFIZER VACCINE 00:00:00 [facility] SARS-COV-2 COVID-19 2020-12-19 Completed [facility] PFIZER VACCINE 00:00:00 [facility] SARS-COV-2 COVID-19 2020-12-19 Completed [facility] PFIZER VACCINE 00:00:00 [facility] SARS-COV-2 COVID-19 2020-12-19 Completed [facility] PFIZER VACCINE 00:00:00 [facility] SARS-COV-2 COVID-19 2020-12-19 Completed [facility] PFIZER VACCINE 00:00:00 [facility] SARS-COV-2 COVID-19 2020-12-19 Completed [facility] PFIZER VACCINE 00:00:00 [facility] SARS-COV-2 COVID-19 2020-12-19 Completed [facility] PFIZER VACCINE 00:00:00 [facility] SARS-COV-2 COVID-19 2020-12-19 Completed [facility] PFIZER VACCINE 00:00:00 [facility] SARS-COV-2 COVID-19 2020-12-19 Completed [facility] PFIZER VACCINE 00:00:00 [facility] SARS-COV-2 COVID-19 2020-12-19 Completed [facility] PFIZER VACCINE 00:00:00 [facility] SARS-COV-2 COVID-19 2020-12-19 Completed [facility] PFIZER VACCINE 00:00:00 [facility] SARS-COV-2 COVID-19 2020-12-19 Completed [facility] PFIZER VACCINE 00:00:00 [facility] SARS-COV-2 COVID-19 2020-12-19 Completed [facility] PFIZER VACCINE 00:00:00 [facility] SARS-COV-2 COVID-19 2020-12-19 Completed [facility] PFIZER VACCINE 00:00:00 [facility] SARS-COV-2 COVID-19 2020-12-19 Completed [facility] PFIZER VACCINE 00:00:00 [facility] SARS-COV-2 COVID-19 2020-12-19 Completed [facility] PFIZER VACCINE 00:00:00 [facility] SARS-COV-2 COVID-19 2020-12-19 Completed [facility] PFIZER VACCINE 00:00:00 [facility] SARS-COV-2 COVID-19 2020-12-19 Completed [facility] PFIZER VACCINE 00:00:00 [facility] SARS-COV-2 COVID-19 2020-12-19 Completed [facility] PFIZER VACCINE 00:00:00 [facility] SARS-COV-2 COVID-19 2020-12-19 Completed [facility] PFIZER VACCINE 00:00:00 [facility] SARS-COV-2 COVID-19 2020-12-19 Completed [facility] PFIZER VACCINE 00:00:00 [facility] SARS-COV-2 COVID-19 2020-12-19 Completed [facility] PFIZER VACCINE 00:00:00 [facility] SARS-COV-2 COVID-19 2020-12-19 Completed [facility] PFIZER VACCINE 00:00:00 [facility] SARS-COV-2 COVID-19 2020-12-19 Completed [facility] PFIZER VACCINE 00:00:00 [facility] SARS-COV-2 COVID-19 2020-12-19 Completed [facility] PFIZER VACCINE 00:00:00 [facility] SARS-COV-2 COVID-19 2020-12-19 Completed [facility] PFIZER VACCINE 00:00:00 [facility] SARS-COV-2 COVID-19 2020-12-19 Completed [facility] PFIZER VACCINE 00:00:00 [facility] SARS-COV-2 COVID-19 2020-12-19 Completed [facility] PFIZER VACCINE 00:00:00 [facility] SARS-COV-2 COVID-19 2020-12-19 Completed [facility] PFIZER VACCINE 00:00:00 [facility] SARS-COV-2 COVID-19 2020-12-19 Completed [facility] PFIZER VACCINE 00:00:00 [facility] SARS-COV-2 COVID-19 2020-12-19 Completed [facility] PFIZER VACCINE 00:00:00 [facility] SARS-COV-2 COVID-19 2020-12-19 Completed [facility] PFIZER VACCINE 00:00:00 [facility] SARS-COV-2 COVID-19 2020-12-19 Completed [facility] PFIZER VACCINE 00:00:00 [facility] SARS-COV-2 COVID-19 2020-12-19 Completed [facility] PFIZER VACCINE 00:00:00 [facility] SARS-COV-2 COVID-19 2020-12-19 Completed [facility] PFIZER VACCINE 00:00:00 [facility] SARS-COV-2 COVID-19 2020-12-19 Completed [facility] PFIZER VACCINE 00:00:00 [facility] SARS-COV-2 COVID-19 2020-12-19 Completed [facility] PFIZER VACCINE 00:00:00 [facility] SARS-COV-2 COVID-19 2020-12-19 Completed [facility] PFIZER VACCINE 00:00:00 [facility] SARS-COV-2 COVID-19 2020-12-19 Completed [facility] PFIZER VACCINE 00:00:00 [facility] SARS-COV-2 COVID-19 2020-12-19 Completed [facility] PFIZER VACCINE 00:00:00 [facility] SARS-COV-2 COVID-19 2020-12-19 Completed [facility] PFIZER VACCINE 00:00:00 [facility] SARS-COV-2 COVID-19 2020-12-19 Completed [facility] PFIZER VACCINE 00:00:00 [facility] SARS-COV-2 COVID-19 2020-12-19 Completed [facility] PFIZER VACCINE 00:00:00 [facility] SARS-COV-2 COVID-19 2020-12-19 Completed [facility] PFIZER VACCINE 00:00:00 [facility] SARS-COV-2 COVID-19 2020-12-19 Completed [facility] PFIZER VACCINE 00:00:00 [facility] SARS-COV-2 COVID-19 2020-12-19 Completed [facility] PFIZER VACCINE 00:00:00 [facility] SARS-COV-2 COVID-19 2020-12-19 Completed [facility] PFIZER VACCINE 00:00:00 [facility] SARS-COV-2 COVID-19 2020-12-19 Completed [facility] PFIZER VACCINE 00:00:00 [facility] SARS-COV-2 COVID-19 2020-12-19 Completed [facility] PFIZER VACCINE 00:00:00 [facility] SARS-COV-2 COVID-19 2020-12-19 Completed [facility] PFIZER VACCINE 00:00:00 [facility] SARS-COV-2 COVID-19 2020-12-19 Completed [facility] PFIZER VACCINE 00:00:00 [facility] SARS-COV-2 COVID-19 2020-12-19 Completed [facility] of PFIZER VACCINE 00:00:00 [facility] SARS-COV-2 COVID-19 2020-12-19 Completed [facility] of PFIZER VACCINE 00:00:00 [facility] SARS-COV-2 COVID-19 2020-12-19 Completed [facility] PFIZER VACCINE 00:00:00 [facility] SARS-COV-2 COVID-19 2020-12-19 Completed [facility] PFIZER VACCINE 00:00:00 [facility] Kenalog Kenalog 2020-11-03 Completed [facility] - (Triamcinolone) (Triamcinolone) 10:27:00 [facility] Kenalog Kenalog 2020-11-03 Completed [facility] - (Triamcinolone) (Triamcinolone) 10:27:00 [facility] Kenalog 2020-11-03 Completed [facility] - (Triamcinolone) (Triamcinolone) 10:27[facility]00 [facility] 2020-11-03 Completed [facility] - (Triamcinolone) (Triamcinolone) 10:27:00 [facility] Kenalog Kenalog 2020-11-03 Completed [facility] - (Triamcinolone) (Triamcinolone) 10:27:00 [facility] Influenza, 2019-07-16 Completed Stephon Harris, 00:00:00 Externa l Preservative Free, Quadrivalent Fluzone Fluzone 2018-07-07 Completed [facility] - 08:47:00 [facility] Fluzone Fluzone 2018-07-07 Completed [facility] - 08:47:00 [facility] Fluzone Fluzone 2018-07-07 Completed [facility] - 08:47:00 [facility] Fluzone Fluzone 2018-07-07 Completed [facility] - 08:47:00 [facility] Fluzone Fluzone 2018-07-07 Completed [facility] - 08:47:00 [facility] Fluzone Fluzone 2018-07-07 Completed [facility] - 08:47:00 [facility] Fluzone Fluzone 2018-07-07 Completed [facility] - 08:47:00 [facility] Fluzone Fluzone 2018-07-07 Completed [facility] - 08:47:00 [facility] Fluzone Fluzone 2018-07-07 Completed [facility] - 08:47:00 [facility] Fluzone Fluzone 2018-07-07 Completed [facility] - 08:47:00 [facility] Fluzone Fluzone 2018-07-07 Completed [facility] - 08:47:00 [facility] Fluzone Fluzone 2018-07-07 Completed [facility] - 08:47:00 [facility] Fluzone Fluzone 2018-07-07 Completed [facility] - 08:47:00 [facility] Fluzone Fluzone 2018-07-07 Completed [facility] - 08:47:00 [facility] Fluzone Fluzone 2018-07-07 Completed [facility] - 08:47:00 [facility] Fluzone Fluzone 2018-07-07 Completed [facility] - 08:47:00 [facility] Influenza, 2018-07-07 Completed Sakina Finley - Seasonal, 00:00:00 External Injectable Influenza Virus 2018-07-06 Completed Sakina ovalles - Vaccine, No 00:00:00 External Preserv, age 6 months and up Solumedrol Solumedrol 2018-06-13 Completed [facility] - 125mg/2ml 125mg/2ml 09:55:00 [facility] Solumedrol Solumedrol 2018-06-13 Completed [facility] - 125mg/2ml 125mg/2ml 09:55:00 [facility] Solumedrol Solumedrol 2018-06-13 Completed [facility] - 125mg/2ml 125mg/2ml 09:55:00 [facility] Solumedrol Solumedrol 2018-06-13 Completed [facility] - 125mg/2ml 125mg/2ml 09:55:00 [facility] Solumedrol Solumedrol 2018-06-13 Completed [facility] - 125mg/2ml 125mg/2ml 09:55:00 [facility] Solumedrol Solumedrol 2018-06-13 Completed [facility] - 125mg/2ml 125mg/2ml 09:55:00 [facility] Solumedrol Solumedrol 2018-06-13 Completed [facility] - 125mg/2ml 125mg/2ml 09:55:00 [facility] Solumedrol Solumedrol 2018-06-13 Completed [facility] - 125mg/2ml 125mg/2ml 09:55:00 [facility] Solumedrol Solumedrol 2018-06-13 Completed [facility] - 125mg/2ml 125mg/2ml 09:55:00 [facility] Solumedrol Solumedrol 2018-06-13 Completed [facility] - 125mg/2ml 125mg/2ml 09:55:00 [facility] Solumedrol Solumedrol 2018-03-23 Completed [facility] - 125mg/2ml 125mg/2ml 14:40:00 [facility] Solumedrol Solumedrol 2018-03-23 Completed [facility] - 125mg/2ml 125mg/2ml 14:40:00 [facility] Solumedrol Solumedrol 2018-03-23 Completed [facility] - 125mg/2ml 125mg/2ml 14:40:00 [facility] Solumedrol Solumedrol 2018-03-23 Completed [facility] - 125mg/2ml 125mg/2ml 14:40:00 [facility] Solumedrol Solumedrol 2018-03-23 Completed [facility] - 125mg/2ml 125mg/2ml 14:40:00 [facility] Solumedrol Solumedrol 2018-03-23 Completed [facility] - 125mg/2ml 125mg/2ml 14:40:00 [facility] Solumedrol Solumedrol 2018-03-23 Completed [facility] - 125mg/2ml 125mg/2ml 14:40:00 [facility] Solumedrol Solumedrol 2018-03-23 Completed [facility] - 125mg/2ml 125mg/2ml 14:40:00 [facility] Solumedrol Solumedrol 2018-03-23 Completed [facility] - 125mg/2ml 125mg/2ml 14:40:00 [facility] Solumedrol Solumedrol 2018-03-23 Completed [facility] - 125mg/2ml 125mg/2ml 14:40:00 [facility] Kenalog Kenalog 2017-12-05 Completed [facility] - (Triamcinolone) (Triamcinolone) 13:09:00 [facility] Kenalog Kenalog 2017-12-05 Completed [facility] - (Triamcinolone) (Triamcinolone) 13:09:00 [facility] Kendarline Kenalog 2017-12-05 Completed [facility] (Triamcinolone) (Triamcinolone) 13:[facility] 2017[facility]05 Com[facility] (Triamcinolone) (Triamcinolone) 13:09:00 [facility] Luis Kenalog 2017-12-05 Completed [facility] - (Triamcinolone) (Triamcinolone) 13:09:00 [facility] Luis Kenalog 2017-12-05 Completed [facility] - (Triamcinolone) (Triamcinolone) 13:09:00 [facility] Kendarline Kenalog 2017-12-05 Completed [facility] - (Triamcinolone) (Triamcinolone) 13:09:00 [facility] Luis Kenalog 2017-12-05 Completed [facility] - (Triamcinolone) (Triamcinolone) 13:09:00 [facility] Kendarline Kenalog 2017-12-05 Completed [facility] - (Triamcinolone) (Triamcinolone) 13:09:00 [facility] Kendarline Kenalog 2017-12-05 Completed [facility] - (Triamcinolone) (Triamcinolone) 13:09:00 [facility] Influenza, 2015-07-10 Completed Sakina Finley - Seasonal, 00:00:00 External Injectable TDAP 2014-10-02 Completed University 00:00:00 [facility] TDAP 2014-10-02 Completed [facility] of 00:00:00 [facility] TDAP 2014-10-02 Completed University of 00:00:00 [facility] TDAP 2014-10-02 Completed [facility] 00:00:00 [facility] TDAP 2014-10-02 Completed [facility] 00:00:00 [facility] TDAP 2014-10-02 Completed [facility] of 00:00:00 [facility] TDAP 2014-10-02 Completed [facility] of 00:00:00 [facility] TDAP 2014-10-02 Completed [facility] of 00:00:00 [facility] TDAP 2014-10-02 Completed [facility] of 00:00:00 [facility] TDAP 2014-10-02 Completed University of 00:00:00 [facility] TDAP 2014-10-02 Completed [facility] of 00:00:00 [facility] TDAP 2014-10-02 Completed [facility] of 00:00:00 [facility] TDAP 2014-10-02 Completed University of 00:00:00 [facility] TDAP 2014-10-02 Completed [facility] of 00:00:00 [facility] TDAP 2014-10-02 Completed University of 00:00:00 [facility] TDAP 2014-10-02 Completed [facility] of 00:00:00 [facility] TDAP 2014-10-02 Completed [facility] of 00:00:00 [facility] TDAP 2014-10-02 Completed [facility] of 00:00:00 [facility] TDAP 2014-10-02 Completed [facility] of 00:00:00 [facility] TDAP 2014-10-02 Completed [facility] of 00:00:00 [facility] TDAP 2014-10-02 Completed [facility] of 00:00:00 [facility] TDAP 2014-10-02 Completed [facility] of 00:00:00 [facility] TDAP 2014-10-02 Completed [facility] of 00:00:00 [facility] TDAP 2014-10-02 Completed [facility] of 00:00:00 [facility] TDAP 2014-10-02 Completed [facility] of 00:00:00 [facility] TDAP 2014-10-02 Completed [facility] of 00:00:00 [facility] TDAP 2014-10-02 Completed [facility] of 00:00:00 [facility] TDAP 2014-10-02 Completed [facility] of 00:00:00 [facility] TDAP 2014-10-02 Completed [facility] 00:00:00 [facility] TDAP 2014-10-02 Completed [facility] 00:00:00 [facility] TDAP 2014-10-02 Completed [facility] 00:00:00 [facility] TDAP 2014-10-02 Completed [facility] 00:00:00 [facility] TDAP 2014-10-02 Completed [facility] 00:00:00 [facility] TDAP 2014-10-02 Completed [facility] 00:00:00 [facility] TDAP 2014-10-02 Completed [facility] 00:00:00 [facility] TDAP 2014-10-02 Completed [facility] 00:00:00 [facility] TDAP 2014-10-02 Completed [facility] 00:00:00 [facility] TDAP 2014-10-02 Completed [facility] 00:00:00 [facility] TDAP 2014-10-02 Completed [facility] 00:00:00 [facility] TDAP 2014-10-02 Completed [facility] 00:00:00 [facility] TDAP 2014-10-02 Completed [facility] 00:00:00 [facility] TDAP 2014-10-02 Completed [facility] 00:00:00 [facility] TDAP 2014-10-02 Completed [facility] 00:00:00 [facility] TDAP 2014-10-02 Completed [facility] 00:00:00 [facility] TDAP 2014-10-02 Completed [facility] 00:00:00 [facility] TDAP 2014-10-02 Completed [facility] 00:00:00 [facility] TDAP 2014-10-02 Completed [facility] 00:00:00 [facility] TDAP 2014-10-02 Completed [facility] 00:00:00 [facility] TDAP 2014-10-02 Completed [facility] 00:00:00 [facility] TDAP 2014-10-02 Completed [facility] 00:00:00 [facility] TDAP 2014-10-02 Completed [facility] 00:00:00 [facility] TDAP 2014-10-02 Completed [facility] 00:00:00 [facility] TDAP 2014-10-02 Completed [facility] 00:00:00 [facility] TDAP 2014-10-02 Completed [facility] 00:00:00 [facility] TDAP 2014-10-02 Completed [facility] 00:00:00 [facility] TDAP 2014-10-02 Completed [facility] 00:00:00 [facility] TDAP 2014-10-02 Completed [facility] 00:00:00 [facility] TDAP 2014-10-02 Completed [facility] 00:00:00 [facility] TDAP 2014-10-02 Completed [facility] 00:00:00 [facility] TDAP 2014-10-02 Completed [facility] 00:00:00 [facility] TDAP 2014-10-02 Completed [facility] 00:00:00 [facility] TDAP 2014-10-02 Completed [facility] 00:00:00 [facility] TDAP 2014-10-02 Completed [facility] 00:00:00 [facility] TDAP 2014-10-02 Completed [facility] 00:00:00 [facility] TDAP 2014-10-02 Completed [facility] 00:00:00 [facility] TDAP 2014-10-02 Completed [facility] 00:00:00 [facility] TDAP 2014-10-02 Completed [facility] 00:00:00 [facility] TDAP 2014-10-02 Completed [facility] 00:00:00 [facility] TDAP 2014-10-02 Completed [facility] 00:00:00 [facility] TDAP 2014-10-02 Completed [facility] 00:00:00 [facility] TDAP 2014-10-02 Completed [facility] 00:00:00 [facility] TDAP 2014-10-02 Completed [facility] 00:00:00 [facility] TDAP 2014-10-02 Completed [facility] 00:00:00 [facility] TDAP 2014-10-02 Completed [facility] 00:00:00 [facility] TDAP 2014-10-02 Completed [facility] 00:00:00 [facility] TDAP 2014-10-02 Completed [facility] 00:00:00 [facility] TDAP 2014-10-02 Completed [facility] 00:00:00 [facility] TDAP 2014-10-02 Completed [facility] 00[facility]00:00 [facility] TDAP 2014-10-02 Completed [facility] 00:00:00 [facility] TDAP 2014-10-02 Completed [facility] 00:00:00 [facility] TDAP 2014-10-02 Completed [facility] 00:00:00 [facility] TDAP 2014-10-02 Completed [facility] 00:00:00 [facility] TDAP 2014-10-02 Completed [facility] 00:00:00 [facility] TDAP 2014-10-02 Completed [facility] 00:00:00 [facility] TDAP 2014-10-02 Completed [facility] of 00:00:00 [facility] TDAP 2014-10-02 Completed [facility] of 00:00:00 [facility] TDAP 2014-10-02 Completed [facility] of 00:00:00 [facility] TDAP 2014-10-02 Completed [facility] of 00:00:00 [facility] TDAP 2014-10-02 Completed [facility] of 00:00:00 [facility] TDAP 2014-10-02 Completed [facility] of 00:00:00 [facility] TDAP 2014-10-02 Completed [facility] of 00:00:00 [facility] TDAP 2014-10-02 Completed [facility] of 00:00:00 [facility] TDAP 2014-10-02 Completed [facility] of 00:00:00 [facility] TDAP 2014-10-02 Completed [facility] of 00:00:00 [facility] TDAP 2014-10-02 Completed [facility] of 00:00:00 [facility] TDAP 2014-10-02 Completed [facility] of 00:00:00 [facility] TDAP 2014-10-02 Completed [facility] of 00:00:00 [facility] TDAP 2014-10-02 Completed [facility] of 00:00:00 [facility] TDAP 2014-10-02 Completed [facility] of 00:00:00 [facility] TDAP 2014-10-02 Completed [facility] of 00:00:00 [facility] Tdap- (Boostrix, 2014-10-02 Completed Sakina Velasquez) 00:00:00 External Hepatitis B, Adult 2012-01-27 Completed Sakina Finley - (3 dose) 00:00:00 External Hepatitis B, Adult 2011-11-04 Completed Sakina Finley - (3 dose) 00:00:00 External MMR- Measles, 2011-11-04 Completed Sakina navarrete - Mumps, Rubella 00:00:00 External Hepatitis B, Adult 2011-10-07 Completed Sakina Finley - (3 dose) 00:00:00 External Meningococcal 2011-10-07 Completed Sakina navarrete - Vaccine- 00:00:00 External Conjugate(Menactra) MMR- Measles, 2011-10-07 Completed Sakina navarrete - Mumps, Rubella 00:00:00 External Tdap- (Boostrix, 2011-10-07 Completed Sakina Velasquez) 00:00:00 External TDAP Unknown Completed [facility] SARS-COV-2 COVID-19 Unknown Completed Unive rsity of PFIZER VACCINE [facility] SARS-COV-2 COVID-19 Unknown Completed Unive rsity of PFIZER VACCINE [facility] TDAP Unknown Completed [facility] SARS-COV-2 COVID-19 Unknown Completed Unive rsity of PFIZER VACCINE [facility] SARS-COV-2 COVID-19 Unknown Completed Unive rsity of PFIZER VACCINE [facility] TDAP Unknown Completed [facility] SARS-COV-2 COVID-19 Unknown Completed Unive rsity of PFIZER VACCINE [facility] SARS-COV-2 COVID-19 Unknown Completed Unive rsity of PFIZER VACCINE [facility] TDAP Unknown Completed [facility] SARS-COV-2 COVID-19 Unknown Completed Unive rsity of PFIZER VACCINE [facility] SARS-COV-2 COVID-19 Unknown Completed Unive rsity of PFIZER VACCINE [facility] Influenza, Unknown Completed Sakina Finley - Injectable, Mdck, Externa l Preservative Free, Quadrivalent Influenza, Unknown Completed Sakina Finley - Injectable, Mdck, Externa l Preservative Free, Quadrivalent Influenza Virus Unknown Completed Sakina ovalles - Vaccine, No External Preserv, age 6 months and up Influenza Virus Unknown Completed Sakina ovalles - Vaccine, No External Preserv, age 6 months and up Influenza, Unknown Completed Sakina Finley - Seasonal, External Injectable Influenza, Unknown Completed Sakina Finley - Seasonal, External Injectable Hepatitis B, Adult Unknown Completed Sakina Finley - (3 dose) External Hepatitis B, Adult Unknown Completed Sakina Finley - (3 dose) External Hepatitis B, Adult Unknown Completed Sakina Finley - (3 dose) External Meningococcal Unknown Completed Sakina navarrete - Vaccine- External Conjugate(Menactra) MMR- Measles, Unknown Completed Sakina navarrete - Mumps, Rubella External MMR- Measles, Unknown Completed Sakina navarrete - Mumps, Rubella External Tdap- (Boostrix, Unknown Completed Sakina ruedabold - Adacel) External Tdap- (Boostrix, Unknown Completed Sakina claireld - Adacel) External Influenza, Unknown Completed Sakina Finley - Injectable, Mdck, Externa l Preservative Free, Quadrivalent Influenza, Unknown Completed Sakina Finley - Injectable, Mdck, Externa l Preservative Free, Quadrivalent Influenza Virus Unknown Completed Sakina ovalles - Vaccine, No External Preserv, age 6 months and up Influenza Virus Unknown Completed Sakina ovalles - Vaccine, No External Preserv, age 6 months and up Influenza, Unknown Completed Sakina Finley - Seasonal, External Injectable Influenza, Unknown Completed Sakina Finley - Seasonal, External Injectable Hepatitis B, Adult Unknown Completed Sakina Finley - (3 dose) External Hepatitis B, Adult Unknown Completed Sakina Finley - (3 dose) External Hepatitis B, Adult Unknown Completed Sakina Finley - (3 dose) External Meningococcal Unknown Completed Sakina Reynolds rosalba - Vaccine- External Conjugate(Menactra) MMR- Measles, Unknown Completed Sakina Reynolds old - Mumps, Rubella External MMR- Measles, Unknown Completed Sakina Reynolds old - Mumps, Rubella External Tdap- (Boostrix, Unknown Completed Sakina ruedaboloretta - Adacel) External Tdap- (Boostrix, Unknown Completed Sakina ruedaboloretta - Adacel) External Influenza, Unknown Completed Sakina Finley - Injectable, Mdck, Externa l Preservative Free, Quadrivalent Influenza, Unknown Completed Sakina Finley - Injectable, Mdck, Externa l Preservative Free, Quadrivalent Influenza Virus Unknown Completed Sakina ovalles - Vaccine, No External Preserv, age 6 months and up Influenza Virus Unknown Completed Sakina ovalles - Vaccine, No External Preserv, age 6 months and up Influenza, Unknown Completed Sakina Finley - Seasonal, External Injectable Influenza, Unknown Completed Sakina Finley - Seasonal, External Injectable Hepatitis B, Adult Unknown Completed Sakina Finley - (3 dose) External Hepatitis B, Adult Unknown Completed Sakina Finley - (3 dose) External Hepatitis B, Adult Unknown Completed Sakin[place] Reynoldsrosalba - (3 dose) External Meningococcal Unknown Completed Sakina Reynolds old - Vaccine- External Conjugate(Menactra) MMR- Measles, Unknown Completed Sakina Reynolds old - Mumps, Rubella External MMR- Measles, Unknown Completed Sakina Reynolds old - Mumps, Rubella External Tdap- (Boostrix, Unknown Completed Sakina ruedabold - Adacel) External Tdap- (Boostrix, Unknown Completed Sakina ruedabold - Adacel) External Influenza, Unknown Completed Sakina Finley - Injectable, Mdck, Externa l Preservative Free, Quadrivalent Influenza, Unknown Completed Sakina Reynoldsold - Injectable, Mdck, Externa l Preservative Free, Quadrivalent Influenza Virus Unknown Completed Sakina ovalles - Vaccine, No External Preserv, age 6 months and up Influenza Virus Unknown Completed Sakina ovalles - Vaccine, No External Preserv, age 6 months and up Influenza, Unknown Completed [place] Reynoldsrosalba - Seasonal, External Injectable Influenza, Unknown Completed Sakina Rodolfoold - Seasonal, External Injectable Hepatitis B, Adult Unknown Completed Sakina Reynoldsold - (3 dose) External Hepatitis B, Adult Unknown Completed Sakina Reynoldsrosalba - (3 dose) External Hepatitis B, Adult Unknown Completed Sakina Reynoldsrosalba - (3 dose) External Meningococcal Unknown Completed Sakina Reynolds old - Vaccine- External Conjugate(Menactra) MMR- Measles, Unknown Completed Sakina Reynolds old - Mumps, Rubella External MMR- Measles, Unknown Completed Sakina Reynolds old - Mumps, Rubella External Tdap- (Boostrix, Unknown Completed Sakina ruedalawrenceld - Adacel) External Tdap- (Boostrix, Unknown Completed Sakina ruedabold - Adacel) External Influenza, Unknown Completed Sakina Finley - Injectable, Mdck, Externa l Preservative Free, Quadrivalent Influenza, Unknown Completed Sakina Reynoldsold - Injectable, Mdck, Externa l Preservative Free, Quadrivalent Influenza Virus Unknown Completed Sakina ovalles - Vaccine, No External Preserv, age 6 months and up Influenza Virus Unknown Completed Sakina ovalles - Vaccine, No External Preserv, age 6 months and up Influenza, Unknown Completed [place] Reynoldsrosalba - Seasonal, External Injectable Influenza, Unknown Completed Sakina Reynoldsrosalba - Seasonal, External Injectable Hepatitis B, Adult Unknown Completed Sakina Reynoldsrosalba - (3 dose) External Hepatitis B, Adult Unknown Completed Sakina Reynoldsrosalba - (3 dose) External Hepatitis B, Adult Unknown Completed Sakina Reynoldsold - (3 dose) External Meningococcal Unknown Completed Sakina Reynolds old - Vaccine- External Conjugate(Menactra) MMR- Measles, Unknown Completed Sakina Reynolds old - Mumps, Rubella External MMR- Measles, Unknown Completed Sakina Reynolds old - Mumps, Rubella External Tdap- (Boostrix, Unknown Completed Sakina ruedaboloretta - Adacel) External Tdap- (Boostrix, Unknown Completed Sakina ruedabold - Adacel) External Influenza, Unknown Completed Sakina Reynoldsold - Injectable, Mdck, Externa l Quadrivalent With Preservative Pneumococcal Unknown Completed Sakina Perez ld - Conjugate 15 External (Vaxneuvance) Influenza, Unknown Completed Sakina Finley - Injectable, Mdck, Externa l Preservative Free, Quadrivalent Influenza, Unknown Completed Sakina Reynoldsold - Injectable, Mdck, Externa l Preservative Free, Quadrivalent Influenza Virus Unknown Completed Sakina scruggsrosalba - Vaccine, No External Preserv, age 6 months and up Influenza Virus Unknown Completed Sakina Jonas charlette - Vaccine, No External Preserv, age 6 months and up Influenza, Unknown Completed Sakina Finley - Seasonal, External Injectable Influenza, Unknown Completed Sakina Finley - Seasonal, External Injectable Hepatitis B, Adult Unknown Completed Sakina Finley - (3 dose) External Hepatitis B, Adult Unknown Completed Sakina Finley - (3 dose) External Hepatitis B, Adult Unknown Completed Sakina Finley - (3 dose) External Meningococcal Unknown Completed Sakina Reynolds old - Vaccine- External Conjugate(Menactra) MMR- Measles, Unknown Completed Sakina Reynolds old - Mumps, Rubella External MMR- Measles, Unknown Completed Sakina Reynolds old - Mumps, Rubella External Tdap- (Boostrix, Unknown Completed Sakina ruedaboloretta - Adacel) External Tdap- (Boostrix, Unknown Completed Sakina uredaboloretta - Adacel) External Influenza, Unknown Completed Sakina Finley - Injectable, Mdck, Externa l Quadrivalent With Preservative Pneumococcal Unknown Completed Sakina Perez ld - Conjugate 15 External (Vaxneuvance) Influenza, Unknown Completed Sakina Finley - Injectable, Mdck, Externa l Preservative Free, Quadrivalent Influenza, Unknown Completed Sakina Finley - Injectable, Mdck, Externa l Preservative Free, Quadrivalent Influenza Virus Unknown Completed Sakina scruggsrosalba - Vaccine, No External Preserv, age 6 months and up Influenza Virus Unknown Completed Sakina scruggsrosalba - Vaccine, No External Preserv, age 6 months and up Influenza, Unknown Completed Sakina Finley - Seasonal, External Injectable Influenza, Unknown Completed Sakina Finley - Seasonal, External Injectable Hepatitis B, Adult Unknown Completed Sakina Finley - (3 dose) External Hepatitis B, Adult Unknown Completed Sakina Finley - (3 dose) External Hepatitis B, Adult Unknown Completed Sakina Finley - (3 dose) External Meningococcal Unknown Completed Sakina navarrete - Vaccine- External Conjugate(Menactra) MMR- Measles, Unknown Completed Sakina Reynolds old - Mumps, Rubella External MMR- Measles, Unknown Completed Sakina Reynolds old - Mumps, Rubella External Tdap- (Boostrix, Unknown Completed Sakina Lopez marybethbold - Adacel) External Tdap- (Boostrix, Unknown Completed Sakina Lopez corinne - Adacel) External Vital Signs Vital Name Observation Time Observation Value Comments Source Systolic blood 2023-08-15 20:04:00 139 mm[Hg] Sakina Reynoldsold - pressure External Diastolic blood 2023-08-15 20:04:00 76 mm[Hg] Billy velázquez Seybold - pressure External Heart rate 2023-08-15 20:04:00 61 /min Sakina S corinne - External Body temperature 2023-08-15 20:04:00 36.56 Becka Kenyetta marybeth ybold - External Respiratory rate 2023-08-15 20:04:00 18 /min Kenyetta Finley - External Body height 2023-08-15 20:04:00 149.9 cm Sakina Jessica corinne - External Body weight 2023-08-15 20:04:00 85.276 kg Sakina Jessica marybethboloretta - External BMI 2023-08-15 20:04:00 37.97 kg/m2 Sakina S corinne - External Oxygen saturation in 2023-08-15 20:04:00 100 /min Sakina Finley - Arterial blood by External Pulse oximetry Systolic blood 2023-08-09 19:36:00 140 mm[Hg] Sakina Reynoldsold - pressure External Diastolic blood 2023-08-09 19:36:00 77 mm[Hg] Billy velázquez Seybold - pressure External Heart rate 2023-08-09 19:36:00 71 /min Sakina Jessica marybethbold - External Body temperature 2023-08-09 19:36:00 36.56 Becka Kenyetta ey Seybold - External Respiratory rate 2023-08-09 19:36:00 15 /min Kenyetta ey Seybold - External Body height 2023-08-09 19:36:00 149.9 cm Sakina Lopez eybold - External Body weight 2023-08-09 19:36:00 84.823 kg Sakina Lopez eybold - External BMI 2023-08-09 19:36:00 37.77 kg/m2 Sakina Lopez eybold - External Oxygen saturation in 2023-08-09 19:36:00 99 /min Sakina Finley - Arterial blood by External Pulse oximetry Body height 2023-07-05 13:21:00 149.9 cm Sakina Lopez eybold - External Body weight 2023-07-05 13:21:00 85.276 kg Sakina Lopez eybold - External BMI 2023-07-05 13:21:00 37.97 kg/m2 Sakina Lopez eybold - External Systolic blood 2023-06-13 18:49:00 144 mm[Hg] Sakina Seybold - pressure External Diastolic blood 2023-06-13 18:49:00 90 mm[Hg] Billy y Seybold - pressure External Heart rate 2023-06-13 18:49:00 68 /min Sakina Lopez eybold - External Body temperature 2023-06-13 18:49:00 36.5 Becka Kenyetta ey Seybold - External Respiratory rate 2023-06-13 18:49:00 20 /min Kenyetta rueda Seybold - External Body height 2023-06-13 18:49:00 149.9 cm Sakina Lopez eybold - External Body weight 2023-06-13 18:49:00 83.915 kg Sakina Lopez eybold - External BMI 2023-06-13 18:49:00 37.37 kg/m2 Sakina Lopez eybold - External Systolic blood 2023-05-11 15:06:00 153 mm[Hg] Univer sity of pressure [facility] Diastolic blood 2023-05-11 15:06:00 85 mm[Hg] Unive rsity of pressure [facility] Heart rate 2023-05-11 15:06:00 74 /min [facility] Body temperature 2023-05-11 15:06:00 35.83 Becka Univ ersity of [facility] Body height 2023-05-11 15:06:00 151.1 cm Universi ty of [facility] Body weight 2023-05-11 15:06:00 84.641 kg Universi ty of [facility] BMI 2023-05-11 15:06:00 37.06 kg/m2 Universi ty of [facility] Systolic blood 2023-02-06 13:35:00 130 mm[Hg] Univer sity of pressure [facility] Diastolic blood 2023-02-06 13:35:00 76 mm[Hg] Unive rsity of pressure [facility] Heart rate 2023-02-06 13:35:00 55 /min Universi ty of [facility] Body temperature 2023-02-06 13:35:00 36.89 Becka Univ ersity of [facility] Respiratory rate 2023-02-06 13:35:00 17 /min Univ ersity of [facility] Body weight 2023-02-06 13:35:00 85.049 kg Universi ty of [facility] BMI 2023-02-06 13:35:00 37.24 kg/m2 Universi ty of [facility] Oxygen saturation in 2023-02-06 13:35:00 100 /min [place] of Arterial blood by [facility] Pulse oximetry Branch Systolic blood 2023-01-26 18:57:00 127 mm[Hg] Univer sity of pressure [facility] Diastolic blood 2023-01-26 18:57:00 78 mm[Hg] Unive rsity of pressure [facility] Heart rate 2023-01-26 18:57:00 67 /min Universi ty of [facility] Body temperature 2023-01-26 18:57:00 36.28 Becka Univ ersity of [facility] Body height 2023-01-26 18:57:00 151.1 cm Universi ty of [facility] Body weight 2023-01-26 18:57:00 85.095 kg Universi ty of [facility] BMI 2023-01-26 18:57:00 37.26 kg/m2 Universi ty of [facility] Systolic blood 2023-01-25 19:45:00 130 mm[Hg] Univer sity of pressure [facility] Diastolic blood 2023-01-25 19:45:00 83 mm[Hg] Unive rsity of pressure [facility] Heart rate 2023-01-25 19:45:00 68 /min [facility]i ty of [facility] Body temperature 2023-01-25 19:45:00 37.06 Becka Univ ers[facility] of [facility] Body height 2023-01-25 19:45:00 151.1 cm [facility]i ty of [facility] Body weight 2023-01-25 19:45:00 85.458 kg [facility]i ty of [facility] BMI 2023-01-25 19:45:00 37.42 kg/m2 [facility]i ty of [facility] Systolic blood 2023-01-23 15:03:00 138 mm[Hg] Univer sity of pressure [facility] Diastolic blood 2023-01-23 15:03:00 88 mm[Hg] Unive rsity of pressure [facility] Heart rate 2023-01-23 15:03:00 52 /min [facility]i ty of [facility] Body temperature 2023-01-23 15:03:00 36.28 Becka [facility] of [facility] Body height 2023-01-23 15:03:00 151.1 cm [facility]i [facility] Body weight 2023-01-23 15:03:00 86.229 kg [facility]i ty [facility] BMI 2023-01-23 15:03:00 37.75 kg/m2 [facility] Systolic blood 2023-01-12 20:11:00 147 mm[Hg] Univer sity of pressure [facility] Diastolic blood 2023-01-12 20:11:00 79 mm[Hg] Unive rsity of pressure [facility] Heart rate 2023-01-12 20:11:00 59 /min [facility]i [facility] of [facility] Body temperature 2023-01-12 20:11:00 36.83 Becka Univ [facility] of [facility] Body height 2023-01-12 20:11:00 151.1 cm [facility]i ty of [facility] Body weight 2023-01-12 20:11:00 86.002 kg [facility]i ty of [facility] BMI 2023-01-12 20:11:00 37.65 kg/m2 [facility] Heart rate 2022-12-27 15:20:00 50 /min [facility]i [facility] of [facility] Respiratory rate 2022-12-27 15:20:00 11 /min Univ ersity of [facility] Oxygen saturation in 2022-12-27 15:20:00 100 /min University of Arterial blood by [facility] Pulse oximetry Branch Systolic blood 2022-12-27 15:15:00 127 mm[Hg] Univer sity of pressure [facility] Diastolic blood 2022-12-27 15:15:00 75 mm[Hg] Unive rsity of pressure [facility] Body temperature 2022-12-27 13:49:00 36.61 Becka Univ ers[facility] of [facility] Body height 2022-12-13 15:00:00 151.1 cm [facility]i ty of [facility] Body weight 2022-12-13 15:00:00 84.823 kg [facility]i ty of [facility] BMI 2022-12-13 15:00:00 37.14 kg/m2 [facility] Heart rate 2022-12-27 15:20:00 50 /min [facility]i [facility] Respiratory rate 2022-12-27 15:20:00 11 /min Univ ersity of [facility] Oxygen saturation in 2022-12-27 15:20:00 100 /min University of Arterial blood by [facility] Pulse oximetry Branch Systolic blood 2022-12-27 15:15:00 127 mm[Hg] Univer sity of pressure [facility] Diastolic blood 2022-12-27 15:15:00 75 mm[Hg] Unive rsity of pressure [facility] Body temperature 2022-12-27 13:49:00 36.61 Becka Univ ersity of [facility] Body height 2022-12-13 15:00:00 151.1 cm [facility]i ty of [facility] Body weight 2022-12-13 15:00:00 84.823 kg Universi ty of [facility] BMI 2022-12-13 15:00:00 37.14 kg/m2 [facility] Systolic blood 2022-12-15 19:59:00 124 mm[Hg] Univer sity of pressure [facility] Diastolic blood 2022-12-15 19:59:00 72 mm[Hg] Unive rsity of pressure [facility] Heart rate 2022-12-15 19:59:00 58 /min [facility]i ty of [facility] Body temperature 2022-12-15 19:59:00 36.72 Becka Univ [facility] of [facility] Body height 2022-12-15 19:59:00 151.1 cm [facility]i [facility] of [facility] Body weight 2022-12-15 19:59:00 86.274 kg [facility]i ty of [facility] BMI 2022-12-15 19:59:00 37.77 kg/m2 [facility] Systolic blood 2022-12-02 15:03:00 130 mm[Hg] Univer sity of pressure [facility] Diastolic blood 2022-12-02 15:03:00 74 mm[Hg] Unive rsity of pressure [facility] Heart rate 2022-12-02 15:03:00 65 /min [facility]i ty of [facility] Respiratory rate 2022-12-02 15:03:00 21 /min Univ ersity of [facility] Body height 2022-12-02 15:03:00 156.2 cm Universi ty of [facility] Body weight 2022-12-02 15:03:00 86.183 kg [facility]i ty of [facility] BMI 2022-12-02 15:03:00 35.32 kg/m2 [facility]i ty of [facility] Oxygen saturation in 2022-12-02 15:03:00 99 /min University of Arterial blood by [facility] Pulse oximetry Branch Systolic blood 2022-11-29 20:39:00 133 mm[Hg] Univer sity of pressure [facility] Diastolic blood 2022-11-29 20:39:00 82 mm[Hg] Unive rsity of pressure [facility] Heart rate 2022-11-29 20:39:00 74 /min [facility]i ty of [facility] Body temperature 2022-11-29 20:39:00 36.83 Becka Univ ersity of [facility] Respiratory rate 2022-11-29 20:39:00 18 /min Univ ersity of [facility] Body height 2022-11-29 20:39:00 151.1 cm [facility]i ty of [facility] Body weight 2022-11-29 20:39:00 85.186 kg [facility]i ty of [facility] BMI 2022-11-29 20:39:00 37.30 kg/m2 [facility] Systolic blood 2022-11-24 19:36:00 132 mm[Hg] Univer sity of pressure [facility] Diastolic blood 2022-11-24 19:36:00 83 mm[Hg] Unive rsity of pressure [facility] Heart rate 2022-11-24 19:36:00 60 /min [facility]i ty of [facility] Body temperature 2022-11-24 19:36:00 37.06 Becka Univ [facility] Respiratory rate 2022-11-24 19:36:00 18 /min Univ ersity of [facility] Body height 2022-11-24 19:36:00 151.1 cm [facility]i ty of [facility] Body weight 2022-11-24 19:36:00 84.823 kg [facility]i ty [facility] BMI 2022-11-24 19:36:00 37.14 kg/m2 [facility] Systolic blood 2022-11-22 17:14:00 128 mm[Hg] Univer sity of pressure [facility] Diastolic blood 2022-11-22 17:14:00 70 mm[Hg] Unive rsity of pressure [facility] Heart rate 2022-11-22 17:14:00 60 /min [facility]i [facility] Body temperature 2022-11-22 17:14:00 35.78 Becka Univ [facility] of [facility] Body height 2022-11-22 17:14:00 151.1 cm [facility]i ty of [facility] Body weight 2022-11-22 17:14:00 85.276 kg [facility] BMI 2022-11-22 17:14:00 37.34 kg/m2 [facility] Systolic blood 2022-11-16 16:59:00 121 mm[Hg] Univer sity of pressure [facility] Diastolic blood 2022-11-16 16:59:00 71 mm[Hg] Unive rsity of pressure [facility] Heart rate 2022-11-16 16:52:00 69 /min [facility]i ty of [facility] Body temperature 2022-11-16 16:52:00 36.67 Becka Univ ers[facility] of [facility] Respiratory rate 2022-11-16 16:52:00 18 /min [facility] Body height 2022-11-16 16:52:00 151.1 cm [facility] Body weight 2022-11-16 16:52:00 85.639 kg [facility] BMI 2022-11-16 16:52:00 37.49 kg/m2 [facility] Systolic blood 2022-11-14 15:57:00 150 mm[Hg] [facility] Diastolic blood 2022-11-14 15:57:00 94 mm[Hg] [facility]ive [facility] of pressure [facility] Heart rate 2022-11-14 15:57:00 70 /min [facility] Body temperature 2022-11-14 15:57:00 36.33 Becka [facility] Body height 2022-11-14 15:57:00 149.9 cm [facility] Body weight 2022-11-14 15:57:00 86.274 kg [facility] BMI 2022-11-14 15:57:00 38.42 kg/m2 [facility] Systolic blood 2022-10-31 16:41:00 137 mm[Hg] [facility] Diastolic blood 2022-10-31 16:41:00 85 mm[Hg] [facility] Heart rate 2022-10-31 16:41:00 68 /min [facility] Body temperature 2022-10-31 16:41:00 36.83 Becka [facility] Body height 2022-10-31 16:41:00 149.9 cm [facility] Body weight 2022-10-31 16:41:00 87.272 kg [facility] BMI 2022-10-31 16:41:00 38.86 kg/m2 [facility] height 2022-10-26 09:15:00 61 [in_i] [facility] weight 2022-10-26 09:15:00 188.2 [lb_av] [facility] temperature 2022-10-26 09:15:00 98.2 [degF] [facility] bmi 2022-10-26 09:15:00 35.56 kg/m2 [facility] blood pressure 2022-10-26 09:15:00 127 mm[Hg] [facility] - systolic [facility] blood pressure 2022-10-26 09:15:00 82 mm[Hg] [facility] - diastolic [facility] height 2022-10-05 09:00:00 61 [in_i] [facility] weight 2022-10-05 09:00:00 188.2 [lb_av] Common [facility] temperature 2022-10-05 09:00:00 97.6 [degF] [facility] - [facility] 2022-10-05 09:00:00 35.56 kg/m2 [facility] blood pressure 2022-10-05 09:00:00 128 mm[Hg] [facility] - systolic [facility] blood pressure 2022-10-05 09:00:00 83 mm[Hg] [facility] diastolic [facility] height 2022-09-15 08:30:00 61 [in_i] [facility] weight 2022-09-15 08:30:00 188.2 [lb_av] [facility] temperature 2022-09-15 08:30:00 98.6 [degF] [facility] bmi 2022-09-15 08:30:00 35.56 kg/m2 [facility] blood pressure 2022-09-15 08:30:00 132 mm[Hg] [facility] - systolic [facility] blood pressure 2022-09-15 08:30:00 80 mm[Hg] [facility] - diastolic [facility] height 2022-09-05 16:20:00 61 [in_i] [facility] weight 2022-09-05 16:20:00 190.2 [lb_av] Common [facility] temperature 2022-09-05 16:20:00 97.5 [degF] Common [facility] bmi 2022-09-05 16:20:00 35.93 kg/m2 [facility] oximetry 2022-09-05 16:20:00 100 % Common [facility] respiratory rate 2022-09-05 16:20:00 16 /min [facility] blood pressure 2022-09-05 16:20:00 130 mm[Hg] Common [facility] - systolic [facility] blood pressure 2022-09-05 16:20:00 68 mm[Hg] Common [facility] - diastolic [facility] height 2021-06-30 09:00:00 61 [in_i] [facility] weight 2021-06-30 09:00:00 180 [lb_av] [facility] bmi 2021-06-30 09:00:00 34.01 kg/m2 [facility] height 2021-05-31 10:20:00 61 [in_i] [facility] weight 2021-05-31 10:20:00 183.0 [lb_av] [facility] temperature 2021-05-31 10:20:00 97.7 [degF] [facility] bmi 2021-05-31 10:20:00 34.57 kg/m2 Common [facility] oximetry 2021-05-31 10:20:00 98 % Common [facility] respiratory rate 2021-05-31 10:20:00 16 /min Comm on [facility] blood pressure 2021-05-31 10:20:00 130 mm[Hg] Common [facility] - systolic [facility] blood pressure 2021-05-31 10:20:00 78 mm[Hg] [facility] diastolic [facility] height 2020-11-03 10:00:00 61 [in_i] Common [facility] weight 2020-11-03 10:00:00 194.5 [lb_av] [facility] temperature 2020-11-03 10:00:00 98.8 [degF] [facility] bmi 2020-11-03 10:00:00 36.75 kg/m2 Common [facility] oximetry 2020-11-03 10:00:00 98 % [facility] respiratory rate 2020-11-03 10:00:00 18 /min Comm on [facility] blood pressure 2020-11-03 10:00:00 130 mm[Hg] [facility] - systolic [facility] blood pressure 2020-11-03 10:00:00 80 mm[Hg] Common [facility] diastolic [facility] height 2020-09-18 10:20:00 61 [in_i] [facility] weight 2020-09-18 10:20:00 198.6 [lb_av] [facility] temperature 2020-09-18 10:20:00 98.0 [degF] [facility] bmi 2020-09-18 10:20:00 37.52 kg/m2 [facility] oximetry 2020-09-18 10:20:00 95 % [facility] respiratory rate 2020-09-18 10:20:00 18 /min Comm on [facility] blood pressure 2020-09-18 10:20:00 120 mm[Hg] Common [facility] - systolic [facility] blood pressure 2020-09-18 10:20:00 72 mm[Hg] Common [facility] diastolic [facility] BP Systolic 2022-10-04 10:10:00 133 mm[Hg] [...] Source Performed OP CORRESPONDENCE 2023-05-01 05:01:00 Doctor Unassigned, [facility] OP CORRESPONDENCE 2023-04-12 05:01:00 Doctor Unassigned, [facility] REFERRAL- 2023-02-14 05:01:00 Doctor Unassigned, [facility] REQUEST/RESPONSE [facility] MEDICAL RELEASE/CLEARANCE 2023-01-23 05:01:00 Doctor Unamadan, [facility] FORMS [facility] REFERRAL- 2023-01-10 05:01:00 Doctor Unassigned, [facility] REQUEST/RESPONSE [facility] HYSTEROSCOPY 2022-12-27 12:42:00 Andrew Ovalle [facility] POLYPECTOMY 2022-12-27 12:42:00 Andrew Ovalle [facility] DILATION AND CURETTAGE 2022-12-27 12:42:00 Andrew Ovalle [facility] POCT TEST 2022-12-27 12:15:00 Phil Hoskins [facility] POCT TEST 2022-12-27 12:15:00 Phil Hoskins [facility] DAY SURGERY - ADC 2022-12-27 05:01:00 Doctor Unassyodit, [facility] PATIENT QUESTIONNAIRE 2022-12-15 05:01:00 Doctor Unassyodit, [facility] US PELVIS COMPLETE WITH 2022-12-05 19:10:51 Andrew Ovalle [facility] TRANSVAGINAL [facility] ASSIGNMENT OF BENEFITS 2022-12-05 16:04:44 Doctor Unassigned, [facility] HB ECG ROUTINE & RHYTHM 2022-12-02 15:06:13 Archana Rogel [facility] EKG (SCANNED DOCUMENTS) 2022-12-02 06:01:00 Doctor Anthony, [facility] [place] [facility] DSU PRE-OP 2022-12-01 06:01:00 Doctor Anthony, [facility] MR LUMBAR SPINE WO 2022-11-30 21:54:58 Glory Brewster [facility] NOTICE OF PRIVACY 2022-11-30 21:06:03 Doctor Anthony, [facility] NOTICE OF PRIVACY 2022-11-30 21:06:03 Doctor Anthony, [facility] CONSENT/REFUSAL FOR 2022-11-30 21:05:43 Doctor Anthony [facility] DIAGNOSIS AND TREATMENT [facility] CONSENT/REFUSAL FOR 2022-11-30 21:05:43 Doctor Anthony, [facility] DIAGNOSIS AND TREATMENT [facility] ASSIGNMENT OF BENEFITS 2022-11-30 21:05:26 Doctor Unassyodit, [facility] ASSIGNMENT OF BENEFITS 2022-11-30 21:05:26 Doctor Revassyodit, [facility] POCT TEST 2022-11-24 19:46:00 Andrew Ovalle [facility] XR LUMBAR SPINE 2 VW 2022-11-22 17:31:21 Glory Brewster [facility] PATIENT QUESTIONNAIRE 2022-11-22 06:01:00 Doctor Unassigned, [facility] POCT URINALYSIS W/O 2022-11-16 00:00:00 Colin Hickey [facility] SPECIFIC GRAVITY Medical Branch XR ANKLE 3+ VW RIGHT 2022-11-14 16:08:10 Lalo [facility] XR FOOT 3+ VW RIGHT 2022-11-14 16:07:57 Lalo Baldwin [facility] EXTERNAL PROVIDER RECORDS 2022-11-08 06:01:00 Doctor Unassyodit, [facility] REFERRAL- 2022-10-27 06:01:00 Doctor Unassigned, [facility] REQUEST/RESPONSE [facility] Plan of Care Planned Activity Planned Date Details Comments Source Goal Plan of Care Note [code = 61515-3] Goal Plan of Care Note [code = 23176-2] Goal Plan of Care Note [code = 62644-6] Goal Plan of Care Note [code = 20485-6] Goal Plan of Care Note [code = 41132-0] Goal Plan of Care Note [code = 48849-9] Goal Plan of Care Note [code = 13431-0] Goal Plan of Care Note [code = 59342-9] Goal Plan of Care Note [code = 96562-6] Goal Plan of Care Note [code = 02042-1] Goal Plan of Care Note [code = 26180-5] Goal Plan of Care Note [code = 03311-1] Goal Plan of Care Note [code = 83929-2] Goal Plan of Care Note [code = 52485-5] Goal Plan of Care Note [code = 97994-2] Goal Plan of Care Note [code = 31275-4] Goal Plan of Care Note [code = 17021-1] Goal Plan of Care Note [code = 01265-5] Goal Plan of Care Note [code = 39545-3] Goal Plan of Care Note [code = 31317-2] Goal Plan of Care Note [code = 84423-2] Goal Plan of Care Note [code = 30052-4] Goal Plan of Care Note [code = 70894-6] Goal Plan of Care Note [code = 22349-3] Goal Plan of Care Note [code = 91446-6] Goal Plan of Care Note [code = 89513-0] Goal Plan of Care Note [code = 86230-3] Goal Plan of Care Note [code = 40469-1] Goal Plan of Care Note [code = 56997-3] Goal Plan of Care Note [code = 71982-8] Goal Plan of Care Note [code = 18483-1] Goal Plan of Care Note [code = 14153-0] Goal Plan of Care Note [code = 05727-9] Goal Plan of Care Note [code = 80750-4] Goal Plan of Care Note [code = 63675-5] Goal Plan of Care Note [code = 07007-0] Goal Plan of Care Note [code = 26586-4] Goal Plan of Care Note [code = 46183-1] Goal Plan of Care Note [code = 23408-5] Goal Plan of Care Note [code = 69382-3] Goal Plan of Care Note [code = 80224-4] Goal Plan of Care Note [code = 73377-5] Goal Plan of Care Note [code = 22004-1] Goal Plan of Care Note [code = 01288-8] Goal Plan of Care Note [code = 16834-8] Goal Plan of Care Note [code = 67312-3] Goal Plan of Care Note [code = 00850-6] Goal Plan of Care Note [code = 54160-0] Goal Plan of Care Note [code = 76683-1] Goal Plan of Care Note [code = 42097-1] Goal Plan of Care Note [code = 14009-6] Goal Plan of Care Note [code = 51575-3] Goal Plan of Care Note [code = 32751-2] Goal Plan of Care Note [code = 82070-2] Goal Plan of Care Note [code = 53927-9] Goal Plan of Care Note [code = 76073-3] Goal Plan of Care Note [code = 00009-4] Goal Plan of Care Note [code = 50983-4] Goal Plan of Care Note [code = 97500-3] Goal Plan of Care Note [code = 92231-9] Goal Plan of Care Note [code = 44052-0] Goal Plan of Care Note [code = 04611-9] Goal Plan of Care Note [code = 23127-9] Goal Plan of Care Note [code = 88430-8] Goal Plan of Care Note [code = 96748-8] Goal Plan of Care Note [code = 64763-2] Goal Plan of Care Note [code = 42502-0] Goal Plan of Care Note [code = 97315-6] Goal Plan of Care Note [code = 24374-1] Goal Plan of Care Note [code = 17305-7] Goal Plan of Care Note [code = 45212-1] Goal Plan of Care Note [code = 26202-9] Goal Plan of Care Note [code = 95466-4] Goal Plan of Care Note [code = 98574-5] Goal Plan of Care Note [code = 44477-4] Goal Plan of Care Note [code = 34241-4] Goal Plan of Care Note [code = 28052-7] Goal Plan of Care Note [code = 54801-1] Goal Plan of Care Note [code = 68649-4] Goal Plan of Care Note [code = 01620-4] Goal Plan of Care Note [code = 91780-5] Goal Plan of Care Note [code = 72957-8] Goal Plan of Care Note [code = 63775-5] Goal Plan of Care Note [code = 27633-6] Goal Plan of Care Note [code = 63749-8] Goal Plan of Care Note [code = 48692-9] Goal Plan of Care Note [code = 22519-9] Goal Plan of Care Note [code = 74566-8] Goal Plan of Care Note [code = 24310-4] Goal Plan of Care Note [code = 15856-6] Goal Plan of Care Note [code = 10978-4] Goal Plan of Care Note [code = 40163-8] Goal Plan of Care Note [code = 56764-9] Goal Plan of Care Note [code = 71677-7] Goal Plan of Care Note [code = 43601-7] Goal Plan of Care Note [code = 13787-8] Goal Plan of Care Note [code = 60298-9] Goal Plan of Care Note [code = 56148-9] Goal Plan of Care Note [code = 86081-7] Goal Plan of Care Note [code = 97953-7] Goal Plan of Care Note [code = 22635-8] Goal Plan of Care Note [code = 14876-9] Goal Plan of Care Note [code = 39498-0] Goal Plan of Care Note [code = 95737-9] Goal Plan of Care Note [code = 23553-0] Goal Plan of Care Note [code = 66063-7] Goal Plan of Care Note [code = 12876-5] Goal Plan of Care Note [code = 57372-4] Goal Plan of Care Note [code = 95989-3] Goal Plan of Care Note [code = 07009-7] Goal Plan of Care Note [code = 15445-4] Goal Plan of Care Note [code = 01500-1] Goal Plan of Care Note [code = 79052-5] Goal Plan of Care Note [code = 88278-0] Goal Plan of Care Note [code = 91513-8] Goal Plan of Care Note [code = 83176-4] Goal Plan of Care Note [code = 25338-9] Goal Plan of Care Note [code = 78447-1] Goal Plan of Care Note [code = 91311-7] Goal Plan of Care Note [code = 10694-9] Goal Plan of Care Note [code = 71187-7] Goal Plan of Care Note [code = 44244-5] Goal Plan of Care Note [code = 72346-3] Goal Plan of Care Note [code = 42780-0] Goal Plan of Care Note [code = 32030-6] Goal Plan of Care Note [code = 65879-0] Goal Plan of Care Note [code = 25360-8] Goal Plan of Care Note [code = 78552-2] Goal Plan of Care Note [code = 36368-8] Goal Plan of Care Note [code = 68667-1] Goal Plan of Care Note [code = 34488-9] Goal Plan of Care Note [code = 09039-8] Goal Plan of Care Note [code = 10220-0] Goal Plan of Care Note [code = 84399-4] Goal Plan of Care Note [code = 46255-1] Goal Plan of Care Note [code = 26990-0] Goal Plan of Care Note [code = 01538-9] Goal Plan of Care Note [code = 77518-3] Goal Plan of Care Note [code = 40870-7] Goal Plan of Care Note [code = 42892-2] Goal Plan of Care Note [code = 54369-3] Goal Plan of Care Note [code = 51727-1] Goal Plan of Care Note [code = 69219-3] Goal Plan of Care Note [code = 32510-8] Goal Plan of Care Note [code = 80088-0] Goal Plan of Care Note [code = 26805-5] Goal Plan of Care Note [code = 45711-6] Goal Plan of Care Note [code = 34187-3] Goal Plan of Care Note [code = 82010-8] Goal Plan of Care Note [code = 68683-1] Goal Plan of Care Note [code = 33785-8] Goal Plan of Care Note [code = 58343-9] Goal Plan of Care Note [code = 76324-1] Goal Plan of Care Note [code = 05407-1] Goal Plan of Care Note [code = 16834-9] Goal Plan of Care Note [code = 95776-6] Goal Plan of Care Note [code = 19574-4] Goal Plan of Care Note [code = 44817-5] Goal Plan of Care Note [code = 40644-5] Goal Plan of Care Note [code = 96756-3] Goal Plan of Care Note [code = 69736-8] Goal Plan of Care Note [code = 80884-0] Goal Plan of Care Note [code = 01614-1] Goal Plan of Care Note [code = 75344-3] Goal Plan of Care Note [code = 87669-0] Goal Plan of Care Note [code = 66783-7] Goal Plan of Care Note [code = 83000-2] Goal Plan of Care Note [code = 13185-3] Goal Plan of Care Note [code = 17814-6] Goal Plan of Care Note [code = 57029-9] Goal Plan of Care Note [code = 36433-9] Goal Plan of Care Note [code = 32605-2] Goal Plan of Care Note [code = 40627-0] Goal Plan of Care Note [code = 18105-9] Goal Plan of Care Note [code = 50174-6] Goal Plan of Care Note [code = 57682-4] Goal Plan of Care Note [code = 09604-3] Goal Plan of Care Note [code = 69901-2] Goal Plan of Care Note [code = 80420-1] Goal Plan of Care Note [code = 80003-6] Goal Plan of Care Note [code = 27742-5] Goal Plan of Care Note [code = 52154-9] Goal Plan of Care Note [code = 60601-5] Goal Plan of Care Note [code = 50207-6] Goal Plan of Care Note [code = 02444-7] Goal Plan of Care Note [code = 40192-8] Goal Plan of Care Note [code = 28544-7] Goal Plan of Care Note [code = 80597-7] Goal Plan of Care Note [code = 48341-4] Goal Plan of Care Note [code = 52078-3] Goal Plan of Care Note [code = 87834-4] Goal Plan of Care Note [code = 45225-0] Goal Plan of Care Note [code = 83288-2] Goal Plan of Care Note [code = 60503-8] Goal Plan of Care Note [code = 56400-0] Goal Plan of Care Note [code = 44700-9] Goal Plan of Care Note [code = 13677-9] Goal Plan of Care Note [code = 79350-2] Goal Plan of Care Note [code = 96298-8] Goal Plan of Care Note [code = 41526-0] Goal Plan of Care Note [code = 88600-7] Goal Plan of Care Note [code = 77302-7] Goal Plan of Care Note [code = 88835-8] Goal Plan of Care Note [code = 45736-0] Goal Plan of Care Note [code = 91843-1] Goal Plan of Care Note [code = 06810-1] Goal Plan of Care Note [code = 93756-9] Goal Plan of Care Note [code = 79773-7] Goal Plan of Care Note [code = 73486-7] Goal Plan of Care Note [code = 30073-8] Goal Plan of Care Note [code = 34656-5] Goal Plan of Care Note [code = 34774-6] Goal Plan of Care Note [code = 10474-5] Goal Plan of Care Note [code = 86716-9] Goal Plan of Care Note [code = 21512-5] Goal Plan of Care Note [code = 32025-3] Goal Plan of Care Note [code = 04760-3] Goal Plan of Care Note [code = 84098-6] Goal Plan of Care Note [code = 31071-2] Goal Plan of Care Note [code = 26954-1] Goal Plan of Care Note [code = 42222-0] Goal Plan of Care Note [code = 05391-1] Goal Plan of Care Note [code = 61386-5] Goal Plan of Care Note [code = 23825-0] Goal Plan of Care Note [code = 17454-5] Goal Plan of Care Note [code = 20303-2] Goal Plan of Care Note [code = 69407-6] Goal Plan of Care Note [code = 91624-7] Goal Plan of Care Note [code = 07537-4] Goal Plan of Care Note [code = 24395-9] Goal Plan of Care Note [code = 68548-4] Goal Plan of Care Note [code = 28563-1] Goal Plan of Care Note [code = 17207-0] Goal Plan of Care Note [code = 32758-5] Goal Plan of Care Note [code = 49197-0] Goal Plan of Care Note [code = 36724-2] Goal Plan of Care Note [code = 69149-8] Goal Plan of Care Note [code = 44380-8] Goal Plan of Care Note [code = 14088-0] Goal Plan of Care Note [code = 14015-2] Goal Plan of Care Note [code = 09717-8] Goal Plan of Care Note [code = 32372-6] Goal Plan of Care Note [code = 91438-5] Goal Plan of Care Note [code = 71217-4] Goal Plan of Care Note [code = 49047-0] Goal Plan of Care Note [code = 02220-3] Goal Plan of Care Note [code = 04302-7] Goal Plan of Care Note [code = 22381-3] Goal Plan of Care Note [code = 45426-3] Goal Plan of Care Note [code = 85922-6] Goal Plan of Care Note [code = 31451-7] Goal Plan of Care Note [code = 41210-5] Goal Plan of Care Note [code = 27334-3] Goal Plan of Care Note [code = 44929-8] Goal Plan of Care Note [code = 27385-3] Goal Plan of Care Note [code = 94327-3] Goal Plan of Care Note [code = 93936-1] Goal Plan of Care Note [code = 02830-6] Goal Plan of Care Note [code = 11488-0] Goal Plan of Care Note [code = 79681-9] Goal Plan of Care Note [code = 51725-9] Goal Plan of Care Note [code = 89920-6] Goal Plan of Care Note [code = 26323-4] Goal Plan of Care Note [code = 05150-2] Goal Plan of Care Note [code = 62371-1] Goal Plan of Care Note [code = 62870-7] Goal Plan of Care Note [code = 89592-0] Goal Plan of Care Note [code = 07095-5] Goal Plan of Care Note [code = 47471-2] Goal Plan of Care Note [code = 52569-9] Goal Plan of Care Note [code = 50379-3] Goal Plan of Care Note [code = 90192-4] Goal Plan of Care Note [code = 49647-6] Goal Plan of Care Note [code = 87077-7] Goal Plan of Care Note [code = 39662-2] Goal Plan of Care Note [code = 02918-8] Goal Plan of Care Note [code = 11558-4] Goal Plan of Care Note [code = 36601-9] Goal Plan of Care Note [code = 59770-5] Goal Plan of Care Note [code = 53027-0] Goal Plan of Care Note [code = 96261-4] Goal Plan of Care Note [code = 51518-1] Goal Plan of Care Note [code = 44541-3] Goal Plan of Care Note [code = 85634-7] Goal Plan of Care Note [code = 02345-2] Goal Plan of Care Note [code = 27316-8] Goal Plan of Care Note [code = 35063-6] Goal Plan of Care Note [code = 82749-0] Goal Plan of Care Note [code = 20872-3] Goal Plan of Care Note [code = 01318-7] Goal Plan of Care Note [code = 12773-9] Goal Plan of Care Note [code = 75450-2] Goal Plan of Care Note [code = 89110-4] Goal Plan of Care Note [code = 35267-4] Goal Plan of Care Note [code = 15154-3] Goal Plan of Care Note [code = 81044-9] Goal Plan of Care Note [code = 66269-2] Goal Plan of Care Note [code = 63308-7] Goal Plan of Care Note [code = 90862-8] Goal Plan of Care Note [code = 83689-8] Goal Plan of Care Note [code = 55648-1] Goal Plan of Care Note [code = 79468-6] Goal Plan of Care Note [code = 70699-1] Goal Plan of Care Note [code = 83943-5] Goal Plan of Care Note [code = 97386-2] Goal Plan of Care Note [code = 85581-8] Goal Plan of Care Note [code = 22584-0] Goal Plan of Care Note [code = 43884-2] Goal Plan of Care Note [code = 08207-6] Goal Plan of Care Note [code = 47488-5] Goal Plan of Care Note [code = 50661-1] Goal Plan of Care Note [code = 52841-0] Goal Plan of Care Note [code = 89660-5] Goal Plan of Care Note [code = 28478-7] Goal Plan of Care Note [code = 63485-4] Goal Plan of Care Note [code = 81454-8] Goal Plan of Care Note [code = 64187-5] Goal Plan of Care Note [code = 22862-8] Goal Plan of Care Note [code = 78539-0] Goal Plan of Care Note [code = 48124-0] Goal Plan of Care Note [code = 89272-9] Goal Plan of Care Note [code = 88677-2] Goal Plan of Care Note [code = 42297-4] Goal Plan of Care Note [code = 79715-2] Goal Plan of Care Note [code = 08003-1] Goal Plan of Care Note [code = 00976-4] Goal Plan of Care Note [code = 51256-8] Goal Plan of Care Note [code = 71323-6] Goal Plan of Care Note [code = 27313-3] Goal Plan of Care Note [code = 62583-6] Goal Plan of Care Note [code = 78581-2] Goal Plan of Care Note [code = 68374-2] Goal Plan of Care Note [code = 04796-4] Goal Plan of Care Note [code = 98538-7] Goal Plan of Care Note [code = 39468-9] Goal Plan of Care Note [code = 39227-8] Goal Plan of Care Note [code = 70415-7] Goal Plan of Care Note [code = 70851-2] Goal Plan of Care Note [code = 58152-6] Goal Plan of Care Note [code = 05033-6] Goal Plan of Care Note [code = 35688-0] Goal Plan of Care Note [code = 17362-4] Goal Plan of Care Note [code = 88084-8] Goal Plan of Care Note [code = 32308-0] Goal Plan of Care Note [code = 33508-4] Goal Plan of Care Note [code = 80636-9] Goal Plan of Care Note [code = 25720-2] Goal Plan of Care Note [code = 61452-5] Goal Plan of Care Note [code = 10694-6] Goal Plan of Care Note [code = 09904-7] Goal Plan of Care Note [code = 02939-1] Goal Plan of Care Note [code = 58063-3] Goal Plan of Care Note [code = 98667-6] Goal Plan of Care Note [code = 23185-6] Goal Plan of Care Note [code = 09738-3] Goal Plan of Care Note [code = 60017-3] Goal Plan of Care Note [code = 48363-8] Goal Plan of Care Note [code = 34062-8] Goal Plan of Care Note [code = 14325-2] Goal Plan of Care Note [code = 95140-9] Goal Plan of Care Note [code = 89509-0] Goal Plan of Care Note [code = 11712-9] Goal Plan of Care Note [code = 63660-8] Goal Plan of Care Note [code = 02377-5] Goal Plan of Care Note [code = 51752-3] Goal Plan of Care Note [code = 34303-5] Goal Plan of Care Note [code = 97176-3] Goal Plan of Care Note [code = 44453-1] Goal Plan of Care Note [code = 89234-1] Goal Plan of Care Note [code = 11348-0] Goal Plan of Care Note [code = 48385-7] Goal Plan of Care Note [code = 74284-1] Goal Plan of Care Note [code = 79623-1] Goal Plan of Care Note [code = 55287-2] Goal Plan of Care Note [code = 61577-1] Goal Plan of Care Note [code = 33680-5] Goal Plan of Care Note [code = 31622-6] Goal Plan of Care Note [code = 20734-9] Goal Plan of Care Note [code = 28176-3] Goal Plan of Care Note [code = 03336-0] Goal Plan of Care Note [code = 61894-8] Goal Plan of Care Note [code = 95250-0] Goal Plan of Care Note [code = 76324-6] Goal Plan of Care Note [code = 69350-9] Goal Plan of Care Note [code = 14053-7] Goal Plan of Care Note [code = 75176-4] Goal Plan of Care Note [code = 57720-0] Goal Plan of Care Note [code = 48653-9] Goal Plan of Care Note [code = 29192-0] Goal Plan of Care Note [code = 85251-6] Goal Plan of Care Note [code = 54418-1] Goal Plan of Care Note [code = 69589-9] Goal Plan of Care Note [code = 57346-7] Goal Plan of Care Note [code = 23344-1] Goal Plan of Care Note [code = 16210-1] Goal Plan of Care Note [code = 64748-3] Goal Plan of Care Note [code = 08200-7] Goal Plan of Care Note [code = 56197-1] Goal Plan of Care Note [code = 85016-5] Goal Plan of Care Note [code = 32432-5] Goal Plan of Care Note [code = 04820-7] Goal Plan of Care Note [code = 91040-3] Goal Plan of Care Note [code = 53845-7] Goal Plan of Care Note [code = 81896-8] Goal Plan of Care Note [code = 79836-6] Goal Plan of Care Note [code = 01059-6] Goal Plan of Care Note [code = 91601-4] Goal Plan of Care Note [code = 44510-2] Goal Plan of Care Note [code = 75770-3] Goal Plan of Care Note [code = 43269-8] Goal Plan of Care Note [code = 89231-5] Goal Plan of Care Note [code = 53381-4] Goal Plan of Care Note [code = 08701-3] Goal Plan of Care Note [code = 43828-6] Goal Plan of Care Note [code = 04812-1] Goal Plan of Care Note [code = 83167-4] Goal Plan of Care Note [code = 39470-8] Goal Plan of Care Note [code = 76661-3] Goal Plan of Care Note [code = 68015-3] Goal Plan of Care Note [code = 41694-0] Goal Plan of Care Note [code = 10455-9] Goal Plan of Care Note [code = 97876-6] Goal Plan of Care Note [code = 84907-4] Goal Plan of Care Note [code = 76585-3] Goal Plan of Care Note [code = 66731-7] Goal Plan of Care Note [code = 69803-8] Goal Plan of Care Note [code = 42958-7] Goal Plan of Care Note [code = 89116-8] Goal Plan of Care Note [code = 20647-2] Goal Plan of Care Note [code = 67691-0] Goal Plan of Care Note [code = 82985-6] Goal Plan of Care Note [code = 49476-5] Goal Plan of Care Note [code = 77982-1] Goal Plan of Care Note [code = 97756-9] Goal Plan of Care Note [code = 81510-1] Goal Plan of Care Note [code = 33635-8] Goal Plan of Care Note [code = 37856-8] Goal Plan of Care Note [code = 46294-1] Goal Plan of Care Note [code = 18089-8] Goal Plan of Care Note [code = 85689-1] Goal Plan of Care Note [code = 88231-0] Goal Plan of Care Note [code = 86306-2] Goal Plan of Care Note [code = 94029-4] Goal Plan of Care Note [code = 68028-9] Goal Plan of Care Note [code = 14351-8] Goal Plan of Care Note [code = 65546-0] Goal Plan of Care Note [code = 88094-9] Goal Plan of Care Note [code = 78143-0] Goal Plan of Care Note [code = 35592-3] Goal Plan of Care Note [code = 72353-5] Goal Plan of Care Note [code = 97075-8] Goal Plan of Care Note [code = 33018-9] Goal Plan of Care Note [code = 01251-1] Goal Plan of Care Note [code = 63621-9] Goal Plan of Care Note [code = 04159-0] Goal Plan of Care Note [code = 93242-9] Goal Plan of Care Note [code = 44182-6] Goal Plan of Care Note [code = 72291-9] Goal Plan of Care Note [code = 86968-6] Goal Plan of Care Note [code = 74339-0] Goal Plan of Care Note [code = 98222-5] Goal Plan of Care Note [code = 45447-5] Goal Plan of Care Note [code = 00097-3] Goal Plan of Care Note [code = 33845-1] Goal Plan of Care Note [code = 52276-3] Goal Plan of Care Note [code = 01596-3] Goal Plan of Care Note [code = 46383-8] Goal Plan of Care Note [code = 63794-3] Goal Plan of Care Note [code = 76012-2] Goal Plan of Care Note [code = 86698-3] Goal Plan of Care Note [code = 65284-4] Goal Plan of Care Note [code = 84114-7] Goal Plan of Care Note [code = 53775-6] Encounters Start End Encounter Admission Attending Care Care Encounter Source Date/Time Date/Time Type Type Clinicians Facility Department ID 2023-02-28 Outpatient Muñiz, STLMLC [facility] [id number] Common 10:19:00 Radha 63745 [facility] 2022-09-12 Outpatient Stanford, Na STLMLC [facility] [id number] Common 09:27:00 [facility] 2022-09-01 Outpatient Stanford, Na STLMLC [facility] [id number] Common 15:16:00 [facility] 2022-04-11 Outpatient Stanford, Na [facility] [id number] Common 12:56:00 [facility] 2021-10-27 Outpatient Deyanira Stanford STLMLC [facility] [id number] Common 14:22:04 91198 [facility] 2021-10-27 Outpatient STLMLC [facility] [id number] Common 13:44:09 27623 [facility] 2021-10-27 Outpatient Hector, STLMLC [facility] [id number] Common 12:14:07 Krys 74556 [facility] 2021-10-27 Outpatient Hector, STLMLC [facility] [id number] Common 12:00:50 Krys 66894 [facility] 2021-10-27 Outpatient Millender, STLMLC [facility] [id number] Common 11:50:51 Brittnee 95705 [facility] 2021-10-27 Outpatient Millender, STLMLC [facility] [id number] Common 11:48:39 Brittnee 35362 [facility] 2021-10-27 Outpatient Millender, STLMLC [facility] [id number] Common 11:31:44 Brittnee 28648 [facility] 2021-10-27 Outpatient Millender, STLMLC [facility] [id number] Common 11:31:31 Brittnee 20734 [facility] 2023-11-24 2023-11-24 Outpatient SAKINA CRISOSTOMO [id number] Sakina 09:30:00 09:30:00 TASIA burgos 2023-11-09 2023-11-09 Outpatient SAKINA HONG [id number] Sakina 09:45:00 09:45:00 CHRISTEL Seybol d 2023-09-06 2023-09-06 Outpatient SAKINA PINEDA [id number] Sakina 10:15:00 10:15:00 DIANE Reynoldsol connie 2023-08-30 2023-08-30 Outpatient SAKINA KIRBY [id number] Sakina 09:50:00 09:50:00 REUBEN Seybol d 2023-08-15 2023-08-15 Outpatient SAKINA OBANDO SAKINA [id number] Sakina 14:30:00 14:30:00 VERONICA Seybol d 2023-08-09 2023-08-09 Outpatient SAKINA HONG [id number] Sakina 13:30:00 13:30:00 CHRISTEL Seybol d 2023-08-09 2023-08-09 Outpatient Ursula ROGEL [facility] [id number] Univers 10:30[facility] 2023-08-09 Outpatient SAKINA HONG [id number] Sakina 00:00:00 00:00:00 CHRISTEL Seybol d 2023-08-08 2023-08-08 Outpatient SAKINA OBANDO [id number] Sakina 13:30:00 13:30:00 VERONICA Seybol d 2023-08-03 2023-08-03 Outpatient SAKINA KIRBY [id number] Sakina 11:10:00 11:10:00 REUBEN Seybol d 2023-08-02 2023-08-02 Outpatient YANELIS HODGE [id number] Sakina 12:45:00 12:45:00 Seybol d 2023-08-02 2023-08-02 Outpatient GC_GCBZW_Ka PRIV PRIV [id number] [facility] 00:00:00 00:00:00 diyala_S [id number] Medic al 2023-08-02 2023-08-02 Outpatient YANELIS HODGE [id number] Sakina 00:00:00 00:00:00 Seybol d 2023-07-28 2023-07-28 Outpatient SAKINA HONG [id number] Sakina 00:00:00 00:00:00 CHRISTEL Seybol d 2023-07-27 2023-07-27 Outpatient SAKINA RODRIGUEZ [id number] Sakina 11:30:00 11:30:00 BIPIN Seybol d 2023-07-27 2023-07-27 Outpatient LAB90 SAKINA PRESLEY [id number] Sakina 10:40:00 10:40:00 Seybol d 2023-07-26 2023-07-26 Outpatient LASHELL KOHLI SAKINA PRESLEY [id number] Sakina 00:00:00 00:00:00 Seybol d 2023-07-24 2023-07-24 Outpatient SAKINA PRESLEY [id number] Sakina 15:45:00 15:45:00 Seybol d 2023-07-17 2023-07-17 Outpatient ANDREW CARMONA [facility] [id number] Univers 13:30:00 13:30:00 ity [facility] 2023-07-17 2023-07-17 Outpatient SAKINA CASTILLO [id number] Sakina 08:30:00 08:30:00 TANJA Seybol d 2023-07-13 2023-07-13 Outpatient SAKINA HONG [id number] Sakina 09:45:00 09:45:00 CHRISTEL Seybol d 2023-07-11 2023-07-11 Outpatient SAKINA KIRBY [id number] Sakina 11:10:00 11:10:00 REUBEN Seybol d 2023-07-11 2023-07-11 Outpatient JACKI PRESLEY [id number] Sakina 00:00:00 00:00:00 MD KATHERIN Seybol d 2023-07-11 2023-07-11 Outpatient SAKINA GALLAGHER [id number] Sakina 00:00:00 00:00:00 DONAL Reynoldso ld 2023-07-10 2023-07-10 Outpatient SAKINA GALLAGHER [id number] Sakina 10:30:00 10:30:00 DONAL Jonasybo ld 2023-07-06 2023-07-06 Patient Doctor [facility] 1.2.840.114 [id number] Univers 00:00:00 00:00:00 Secure Msg Unassigned, GRACE 350.1.13.10 [place] [id number] [place] dical [address] 2023-07-05 2023-07-05 Outpatient SAKINA PRESLEY [id number] Sakina 09:15:00 09:15:00 Seybol d 2023-07-05 2023-07-05 Outpatient SAKINA PRESLEY [id number] Sakina 09:10:00 09:10:00 Seybol d 2023-07-05 2023-07-05 Outpatient LASHELL KOHLI SAKINA PRESLEY [id number] Sakina 08:00:00 08:00:00 Seybol d 2023-07-05 2023-07-05 Outpatient CAMILO SAKINA PRESLEY [id number] Sakina 00:00:00 00:00:00 MANOJ Seybol d 2023-07-05 2023-07-05 Outpatient SAKINA HONG [id number] Sakina 00:00:00 00:00:00 CHRISTEL Seybol d 2023-07-03 2023-07-03 Outpatient LAB90 SAKINA PRESLEY [id number] Sakina 08:10:00 08:10:00 Seybol d 2023-06-28 2023-06-28 Outpatient SFA SFA [id number] Augusto 08:21:30 08:21:30 0927 F Kaushik 2023-06-22 2023-06-[address], TECH SAKINA PRESLEY [id number] Sakina 15:30:00 15:30:00 Seybol d 2023-06-22 2023-06-22 Outpatient SAKINA HONG [id number] Sakina 00:00:00 00:00:00 CHRISTEL Seybol d 2023-06-22 2023-06-22 Outpatient JACKI PRESLEY [id number] Sakina 00:00:00 00:00:00 MD KATHERIN Seybol d 2023-06-19 2023-06-19 Outpatient JACKI PRESLEY [id number] Sakina 00:00:00 00:00:00 MD KATHERIN Seybol d 2023-06-16 2023-06-16 Outpatient SAKINA PRESLEY [id number] Sakina 00:00:00 00:00:00 Seybol d 2023-06-14 2023-06-14 Outpatient SAKINA HONG [id number] Sakina 00:00:00 00:00:00 CHRISTEL Seybol d 2023-06-13 2023-06-13 Outpatient SAKINA HONG [id number] Sakina 14:15:00 14:15:00 CHRISTEL Seybol d 2023-05-18 2023-05-18 Outpatient SAKINA PAGE [id number] Sakina 12:45:00 12:45:00 MANOJ Seybol d 2023-05-18 2023-05-18 Outpatient SAKINA PAGE [id number] Sakina 12:45:00 12:45:00 MANOJ Seybol d 2023-05-11 2023-05-11 Outpatient [facility] [id number] [facility] 10:15:00 10:52:51 , AC ity of [facility] 2023-05-11 2023-05-11 Office [facility] 1.2.840.114 [id number] [facility] 10:15:00 10:52:51 Visit , Ac SPECIALTY 350.1.13.10 ity of CARE 4.2.7.2.686 [facility] AT [phone] Ks dical SIRENAY [address] [place] [address] 2023-05-02 2023-05-02 Telephone [facility] 1.2.840.114 [id number] Univers 00:00:00 00:00:00 , Ac SPECIALTY 350.1.13.10 ity of CARE 4.2.7.2.686 [facility] AT [id number] Ks dical SIRENAY [address] [place] [address] 2023-05-01 2023-05-01 Telephone [facility] 1.2.840.114 [id number] Univers 00:00:00 00:00:00 , Ac SPECIALTY 350.1.13.10 ity of CARE 4.2.7.2.686 [facility] AT [phone] Ks dical SIRENAY [address] [place] [address] 2023-05-01 2023-05-01 Orders Doctor DYLAN 1.2.840.114 [id number] Univers 00:00:00 00:00:00 Only Unassigned, MORGAN 350.1.13.10 [place] [facility] 4.2.7.2.686 Miguel as [id number] [facility] 009 War 2023-04-12 2023-04-12 Orders Doctor DYLAN 1.2.840.114 [id number] Univers 00:00:00 00:00:00 Only Unassigned, MORGAN 350.1.13.10 ity of [place] [facility]PITAL 4.2.7.2.686 Miguel as [id number] [facility] 009 War 2023-04-10 2023-04-10 [facility]phone [facility] 1.2.840.114 [id number] Univers 00:00:00 00:00:00 , Ac SPECIALTY 350.1.13.10 [place] [phone] Ks arlyn CONRAD [address] [facility] 2023-03-30 2023-03-30 [facility] [id number] Univers 00:00:00 00:00:00 SENDIL ity [facility] 2023-03-23 2023-03-23 [facility] [id number] Univers 10:24:27 23:59:00 COLIN ity [facility] 2023-03-23 2023-03-23 [facility] 1.2.840.114 [id number] Univers 10:24:27 23:59:00 Encounter Colin GRACE 350.1.13.10 ity [facility] 4.2.7.2.686 [facility] [phone] [facility] 800 War 2023-03-22 2023-03-22 [facility] [id number] Univers 00:00:00 00:00:00 SENDIL ity [facility] 2023-03-02 2023-03-02 [facility] 1.2.840.114 [id number] Univers 00:00:00 00:00:00 Secure Msg , Ac SPECIALTY 350.1.13.10 [place] [id number] [place]s dicave [place]CT[place] 198 [facility] 2023-02-14 2023-02-14 Orders Doctor DYLAN 1.2.840.114 [id number] Univers 00:00:00 00:00:00 Only Unassigned, MORGAN 350.1.13.10 [place] [facility] 4.2.7.2.686 Miguel as [phone] [facility] 009 War 2023-02-10 2023-02-10 [facility] [id number] Univers 00:00:00 00:00:00 COLIN ity [facility] 2023-02-06 2023-02-06 [facility] 1.2.840.114 [id number] Univers 09:00:00 09:28:18 Visit Archana EDWARDS 350.1.13.10 ity [facility] [place] [phone] [place] dicave NICOLE 059 [facility] 2023-02-06 2023-02-06 Outpatient R PEBBLES [facility] [id number] Univers 09:00:00 09:28:18 SENDIL [facility] 2023-02-01 2023-02-01 Telephone Andrew Ovalle [facility] 1.2.840.114 10 [id number] Univers 00:00:00 00:00:00 Florentino EDWARDS 350.1.13.10 i ty [facility] [place] [phone] [place] dical NAL 134 [facility] 2023-01-26 2023-01-26 Office Davidson [facility] 1.2.840.114 10 [id number] Univers 13:45:00 15:07:58 Visit , Ac [place] 350.1.13.10 ity of [facility] 4.2.7.2.[place] [id number] Ks arlyn CONRAD 198 [facility] 2023-01-26 2023-01-26 Outpatient R DAVIDSON [facility] [id number] Univers 13:45:00 15:07:58 , [facility] 2023-01-26 2023-01-26 Telephone Pebbles [facility] 1.2.789.182 [id number] Univers 00:00:00 00:00:00 Sendil KPitaHPita [place] 350.1.13.10 ity [place] [id number] [place] dical NAL 059 [facility] 2023-01-26 2023-01-26 Case Andrew Ovalle [facility] 1.2.825.444 [id number] Univers 00:00:00 00:00:00 Management Florentino EDWARDS 350.1.13.10 [place] [id number] [place] dical NAL 134 [facility] 2023-01-26 2023-01-26 Telephone Pebbles [facility] 1.2.296.479 [id number] Univers 00:00:00 00:00:00 Sendfavio KPitaHPita [place] 350.1.13.10 it[place] 4.2.7.2.[place] [phone] [place] dical NAL 059 [facility] 2023-01-25 2023-01-25 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, 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 Lab [facility] 1.2.840.114 [id number] Univers 15:30:00 15:45:00 Visit Andrew Ovalle 350.1.13.10 it[place].7.2.[place] [id number] [place]s dical NAL 353 [facility] 2023-01-25 2023-01-25 Office Andrew Ovalle [facility] 1.2.561.939 [id number] Univers 15:00:00 15:00:00 Visit Florentino EDWARDS 350.1.13.10 i ty [place] 4.[place].7.2.[place] [id number] Ks dical NAL 134 [facility] 2023-01-25 2023-01-25 Outpatient R ANDREW OVALLE [facility] [id number] Univers 15:00:00 14:56:59 ity of [facility] 2023-01-23 2023-01-23 Office Myla [facility] 1.2.840.114 10 [id number] Univers 10:10:00 10:20:00 Visit Lalo SPECIALTY 350.1.13.10 [place] 752.8735990 [place]s dicave [place]CT[place] 198 [facility] 2023-01-23 2023-01-23 Outpatient R ANHKAROLINA [facility] [id number] Univers 10:10:00 10:10:00 LALO ity of [facility] 2023-01-23 2023-01-23 Orders Doctor DYLAN 1.2.840.114 [id number] Univers 00:00:00 00:00:00 Only Unassigned, MORGAN 350.1.13.10 it[place] of [place] [facility]OSPITAL 4.2.7.2.686 Miguel as [id number] [address] 2023-01-23 2023-01-23 Patient Ovalle [facility] 1.2.891.310 [id number] Univers 00:00:00 00:00:00 Secure Msg Florentino EDWARDS 350.1.13.10 ity of [place].2.[place] 195.7008302 [place] dical NAL [address] [place] [address] 2023-01-16 2023-01-16 Outpatient R OVALLE [facility] [id number] Univers 14:30:00 14:30:00 ity of [facility] 2023-01-12 2023-01-12 Outpatient R VASQUEZ [facility] [id number] Univers 15:00:00 15:31:18 ity of [facility] 2023-01-12 2023-01-12 Office Vasquez [facility] 1.2.211.183 [id number] Univers 15:00:00 15:31:18 Visit Florentino EDWARDS 350.1.13.10 i ty [facility] 4.2.7.2.[place] [phone] Ks dical NAL [address] [place] [address] 2023-01-10 2023-01-10 Orders Doctor RICHARDSON 1.2.840.114 [id number] Univers 00:00:00 00:00:00 Only Unassigned, MORGAN 350.1.13.10 [place] [facility] 4.2.7.2.686 Miguel as [id number] [facility] 009 War 2023-01-02 2023-01-02 Patient Davidson [facility] 1.2.840.114 10 [id number] Univers 00:00:00 00:00:00 Secure Msg , Ac SPECIALTY 350.1.13.10 [place] [phone] Ks arlyn CONRAD [address] [place] [address] 2022-12-29 2022-12-29 Outpatient R EDELMIRA [facility] [id number] Univers 00:00:00 00:00:00 COLIN eber [facility] 2022-12-27 2022-12-27 Outpatient R TERESA ACEVEDO [facility] [id number] Univers 15:00:00 15:00:00 TERESA ACEVEDO [facility] 2022-12-27 2022-12-27 Surgery Andrew Ovalle [facility] 1.2.307.618 [id number] Univers 07:50:00 10:40:00 Cam GRACE 350.1.13.10 i [place]2.7.2.[place] [id number] Med ical BROTHERS [address] 2022-12-27 2022-12-27 Outpatient R ANDREW OVALLE [facility] SUPERVISOR MILL [id number] Univers 07:13:00 10:35:00 ity of [facility] 2022-12-27 2022-12-27 Hospital Andrew Ovalle [facility] 1.2.840.114 [id number] Univers 07:13:00 10:35:00 Encounter Florentino EDWARDS 350.1.13.10 ity [facility] 4.2.7.2.[place] [id number] Med ical CENTER [address] 2022-12-27 2022-12-27 Orders Doctor RICHARDSON 1.2.840.114 [id number] Univers 00:00:00 00:00:00 Only Unassigned, MORGAN 350.1.13.10 [place] of [place] [facility] 4.2.7.2.686 Miguel as [id number] [facility] [address] 2022-12-26 2022-12-26 Outpatient R ANDREW OVALLE [facility] [id number] Univers 09:15:00 09:15:00 ity of [facility] 2022-12-21 2022-12-21 Telephone Andrew Ovalle [facility] 1.2.840.114 10 [id number] Univers 00:00:00 00:00:00 Cam [place] 350.1.13.10 i ty [place] 4.[place].2.[place] 785.3346757 Me dical NAL 134 [facility] 2022-12-21 2022-12-21 Patient [facility] 1.2.840.114 10 [id number] Univers 00:00:00 00:00:00 Secure Msg , Ac SPECIALTY 350.1.13.10 it[place]2.[place] [phone] Ks dicave PACKY 198 [facility] 2022-12-16 2022-12-16 Patient [facility] 1.2.840.114 10 [id number] Univers 00:00:00 00:00:00 Secure Msg , Ac SPECIALTY 350.1.13.10 it[place] of [place].2.[place] [phone] Ks arlyn CONRAD [address] [place] [address] 2022-12-16 2022-12-16 Telephone [facility] 1.2.840.114 [id number] Univers 00:00:00 00:00:00 , Ac SPECIALTY 350.1.13.10 ity of [place] 4[place].2.[place] 576.0329107 Ks arlyn CONRAD [address] [place] [address] 2022-12-15 2022-12-15 [facility] [id number] Univers 14:45:00 15:54:11 , AC ity of [facility] 2022-12-15 2022-12-15 Office [facility] 1.2.840.114 10 [id number] Univers 14:45:00 15:54:11 Visit , Ac SPECIALTY 350.1.13.10 it[place]2.[place].2.[place] 871.3907613 Ks dical [place] 198 [facility] 2022-12-15 2022-12-15 Orders Doctor DYLAN 1.2.840.114 [id number] Univers 00:00:00 00:00:00 Only Unassigned, MORGAN 350.1.13.10 ity of [place] [facility] 4.2.7.2.686 Miguel as [id number] [facility] 009 War 2022-12-12 2022-12-12 Patient Vasquez [facility] 1.2.274.918 [id number] Univers 00:00:00 00:00:00 Secure Msg Cam [place] 350.1.13.10 it[place] [id number] [place] NAL 134 [facility] 2022-12-06 2022-12-06 Telephone Vasquez [facility] 1.2.840.114 [id number] Univers 00:00:00 00:00:00 Cam [place] 350.1.13.10 i [place] [id number] [facility] 083 War 2022-12-06 2022-12-06 Patient Pebbles [facility] 1.2.840.114 [id number] Univers 00:00:00 00:00:00 Secure Msg Sendil KPitaH. 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, Adc Lab [facility] 1.2.840.114 [id number] Univers 09:45:00 10:00:00 Visit Vasquez Andrew Florentino EDWAR[place] 350.1.13.10 ity of [place] [phone] [place] NAL 353 [facility] 2022-12-05 2022-12-05 Orders Doctor RICHARDSON 1.2.840.114 [id number] Univers 00:00:00 00:00:00 Only Unassigned, MORGAN 350.1.13.10 [place] [facility] 4.2.7.2.686 Miguel as [id number] [address] 2022-12-02 2022-12-02 Outpatient R PEBBLES [facility] [id number] Univers 09:00:00 09:33:56 SENDIL ity of [facility] 2022-12-02 2022-12-02 [facility] 1.2.840.114 [id number] Univers 09:00:00 09:33:56 Visit Archana [place] 350.1.13.10 [place] [id number] [place] dicwa NAL 059 [facility] 2022-12-02 2022-12-02 [facility] 1.2.615.439 [id number] Univers 00:00:00 00:00:00 Archana [place] 350.1.13.10 [facility] [place] [id number] [place] dical NAL 059 [facility] 2022-12-02 2022-12-02 [facility] 1.2.929.715 [id number] Univers 00:00:00 00:00:00 Archana [place] 350.1.13.10 [facility] [facility] [place] [phone] [place] dical NAL 059 [facility] 2022-12-02 2022-12-02 Orders Doctor RICHARDSON 1.2.840.114 [id number] Univers 00:00:00 00:00:00 Only Unassigned, MORGAN 350.1.13.10 [place] of [place] [facility] 4.2.7.2.686 Miguel as [phone] [facility] 009 War 2022-12-01 2022-12-01 Orders Doctor DYLAN 1.2.840.114 [id number] Univers 00:00:00 00:00:00 Only Unassigned, MORGAN 350.1.13.10 [place] of [place] [facility] 4.2.7.2.686 Miguel as [phone] [facility] 009 War 2022-11-30 2022-11-30 [facility] [id number] Univers 15:10:11 23:59:00 GLORY ity of [facility] 2022-11-30 2022-11-30 [facility] 1.2.840.114 [id number] Univers 15:10:11 23:59:00 Encounter Glory EDWARDS 350.1.13.10 [place] [phone] [facility] 804 War 2022-11-29 2022-11-29 Outpatient R VASQUEZ ANDREW [facility] [id number] Univers 09:30:00 15:07:47 ity of [facility] 2022-11-29 2022-11-29 Office Andrew Ovalle [facility] 1.2.904.732 [id number] Univers 09:30:00 15:07:47 Visit Florentino EDWARDS 350.1.13.10 i ty [facility] [place] [phone] Ks dical NAL [address] [place] [address] 2022-11-29 2022-11-29 Patient Manuel [facility] 1.2.840.114 [id number] Univers 00:00:00 00:00:00 Secure Msg Catrachita Ambrose ED[place] 350.1.13.10 [place]y of [place] [phone] Ks dical NAL [address] [place] [address] 2022-11-29 2022-11-29 Prep For Andrew Ovalle [facility] 1.2.840.114 [id number] Univers 00:00:00 00:00:00 Surgery Florentino GRACE 350.1.13.10 i ty [place] [phone] [place]s arlyn NICOLE 134 [facility] 2022-11-24 2022-11-24 Outpatient R VASQUEZ [facility]RE[facility] [id number] Univers 13:30:00 14:01:38 ity [facility] 2022-11-24 2022-11-24 Office Vasquez Andrew [facility] 1.2.639.780 [id number] Univers 13:30:00 14:01:38 Visit Florentino EDWARDS 350.1.13.10 i ty [place] [id number] [place]s arlyn NICOLE [address] [place] [address] 2022-11-22 2022-11-22 Hospital [facility] 1.2.840.114 [id number] Univers 11:24:38 23:59:00 Encounter Glory SPECIALTY 350.1.13.10 ity [place] [phone] Ks arlyn CONRAD 809 [facility] 2022-11-22 2022-11-22 [facility] [id number] Univers 11:20:00 12:01:04 GOLRY ity [facility] 2022-11-22 2022-11-22 Office [facility] 1.2.840.114 [id number] Univers 11:20:00 11:40:00 Visit Glory SPECIALTY 350.1.13.10 ity [place] [phone] Ks arlyn CONRAD 198 [facility] 2022-11-16 2022-11-16 Outpatient R EDELMIRA [facility] [id number] Univers 10:45:00 11:39:09 COLIN iteber [facility] 2022-11-16 2022-11-16 Office Edelmira [facility] 1.2.321.882 [id number] Univers 10:45:00 11:15:00 Visit Colin EDWARDS 350.1.13.10 i ty [place] [phone] Me dical NAL 134 [facility] 2022-11-16 2022-11-16 Patient Doctor DYLAN 1.2.840.114 [id number] Univers 00:00:00 00:00:00 Secure Msg Unassigned, MORGAN 350.1.13.10 [place] [facility] 4.2.7.2.686 Miguel as [phone] [address] 2022-11-14 2022-11-14 [facility] 1.2.840.114 1 [id number] Univers 10:00:00 23:59:00 Encounter Lalo SPECIALTY 350.1.13.10 ity [place] [phone] [place]s arlyn CONRAD 809 [facility] 2022-11-14 2022-11-14 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, Ang - [facility] 1.2.840.1 14 [id number] Univers 13:15:00 13:30:00 Visit [facility] 350.1.13.10 ity of [place] 4.2.7.2.686 Miguel as KENNEDY?BLEA [phone] Ks dical CECILIAEY [address] MEDICAL OFFICE [facility] 2022-11-14 2022-11-14 Outpatient R [facility] [id number] Univers 10:10:00 10:27:15 LALO ity of [facility] 2022-11-14 2022-11-14 Office [facility] 1.2.840.114 10 [id number] Univers 10:10:00 10:27:15 Visit Lalo SPECIALTY 350.1.13.10 ity [place].2.[place] [phone] Ks arlyn CONRAD 198 [facility] 2022-11-14 2022-11-14 [facility] 1.2.840.114 1 [id number] Univers 09:59:51 09:59:51 Encounter Lalo SPECIALTY 350.1.13.10 ity [place].2.[place] [phone] Ks quitaave CONRAD 809 [facility] 2022-11-08 2022-11-08 Orders Doctor DYLAN 1.2.840.114 [id number] Univers 00:00:00 00:00:00 Only Unassigned, MORGAN 350.1.13.10 [place] [facility] 4.2.7.2.686 Miguel as [phone] [facility] [address] 2022-11-04 2022-11-04 Patient Howardsoterokelvin [facility] 1.2.067.400 [id number] Univers 00:00:00 00:00:00 Secure Msg Colin GRACE 350.1.13.10 it[facility] 4.2.7.2.[place] [phone] Ks dical NAL [address] [facility] 2022-11-02 2022-11-02 Patient Andrew Ovalle [facility] 1.2.745.718 [id number] Univers 00:00:00 00:00:00 Secure Msg Florentino EDWARDS 350.1.13.10 ity [facility] 4.2.7.2.[place] [phone] Ks dicwa NAL [address] [facility] 2022-11-01 2022-11-01 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, Scott Garcia [facility] 1.2.840.1 14 [id number] Univers 11:30:00 11:45:00 Visit Colin Hickey [facility] 350.1.13.10 it[facility] 4.2.7.2.686 Miguel as KENNEDY?BLEA [phone] Ks dicave [facility] [address] MEDICAL OFFICE BUILDING 2022-11-01 2022-11-01 Outpatient R EDELMIRA [facility] [id number] Univers 11:30:00 11:34:33 COLIN ity of [facility] 2022-11-01 2022-11-01 Case DAVID Hickey 1.2.002.219 [id number] Univers 00:00:00 00:00:00 Management Colin PEDIATRIC 350.1.13.10 [place] [phone] [facility] PRIMARY [address] CARE CLINIC 2022-10-31 2022-10-31 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, Adc Lab [facility] 1.2.840.114 [id number] Univers 11:45:00 12:00:00 Visit Andrew Ovalle GRACE 350.1.13.10 [place]y of [place]7.2.[place] [phone] Ks dical NAL 353 [facility] 2022-10-31 2022-10-31 Outpatient R OVALLE [facility]REW [facility] [id number] Univers 10:00:00 11:21:47 ity of [facility] 2022-10-31 2022-10-31 Office Colin Hickey [facility] 1.2.840.11 [id number] Univers 10:00:00 11:21:47 Visit Andrew Ovalle Florentino EDWARDS 350.1.13.10 ity of [place] 4[place]2.7.2.[place] [phone] Ks dical NAL 134 [facility] 2022-10-27 2022-10-27 Orders Doctor DYLAN 1.2.840.114 [id number] [facility] 00:00:00 00:00:00 Only Unassigned, MORGAN 350.1.13.10 [facility] 4.2.7.2.686 Miguel as [phone] [address] 2022-10-27 2022-10-27 (TEL) STLMLC STLMLC [id number] Co mmon 00:00:00 00:00:00 [facility] 2022-10-26 2022-10-26 OFFICE STLMLC STLMLC [id number] Co mmon 00:00:00 00:00:00 VISIT EST Spir it PT LEVEL 3 [facility] 2022-10-14 2022-10-14 (TEL) STLMLC STLMLC [id number] Co mmon 00:00:00 00:00:00 [facility] 2022-10-05 2022-10-05 OFFICE STLMLC STLMLC [id number] Co mmon 00:00:00 00:00:00 VISIT EST Spir it PT LEVEL 3 - [facility] 2022-10-04 2022-10-04 Outpatient SFA SFA [id number] Augusto 10:05:21 10:05:21 0103 F Kaushik 2022-10-04 2022-10-04 Outpatient [id number]- [id number] 0c m75m82-6 00:00:00 00:00:00 Visit 39aa-4be2 9aa-4be2-b -h57o-7z9 80b-1v726p 22nn7q82o f9a68c 2022-09-28 2022-09-28 Outpatient SFA SFA [id number] Augusto 08:46:59 08:46:59 1228 F Kaushik 2022-09-28 2022-09-28 Outpatient spz1xb34- [id number] fa u8aj57-z 00:00:00 00:00:00 Visit m5h1-0f81 4l9-3a30-x -f2p2-0kv 1v2-5vl253 648eyp512 zgh448 2022-09-18 2022-09-18 Outpatient SFA SFA [id number] 022 Augusto 10:59:17 10:59:17 1218 F Kaushik 2022-09-18 2022-09-18 Outpatient [id number]- [id number] a1 n46cj6-t 00:00:00 00:00:00 Visit r62g-49b2 97d-43d3-a -ai5z-07a h2h-74a669 [id number] 2022-09-15 2022-09-15 Outpatient SFA SFA [id number] 022 Augusto 13:46:23 13:46:23 1215 F Kaushik 2022-09-15 2022-09-15 Outpatient [id number]- [id number] 9n96ku-2 00:00:00 00:00:00 Visit 12fe-4247 2fe-4247-9 -93ff-29f 3ff-29f10e 70rv3835r b6112p 2022-09-15 2022-09-15 [facility] [id number] Co mmon 00:00:00 00:00:00 VISIT NEW Spir it PT LEVEL 3 - [facility] 2022-09-05 2022-09-05 PREV VISIT STLC STLC [id number] Common 00:00:00 00:00:00 EST AGE Spirit 40-64 - [facility] 2022-07-13 2022-07-13 Outpatient SFA SFA [id number] Luiz Casas 17:17:07 17:17:07 1012 F Kaushik 2022-07-13 2022-07-13 Outpatient [id number]- [id number] bc 1h2489-7 00:00:00 00:00:00 Visit 0i19-2979 o55-4764-7 -71s1-ia1 2h1-je4278 890301v9x 653d6b 2022-06-21 2022-06-21 Outpatient efj786wh- [id number] fc r735wu-2 00:00:00 00:00:00 Visit 34a3-657d 8d8-473i-2 -8800-e5b 800-e5bc2a w9k5c5ui0 3a1ae7 2022-06-13 2022-06-13 Outpatient [id number]- [id number] 796cb8-8 00:00:00 00:00:00 Visit 91r1-6a21 5b2-3f81-7 -844a-346 44a-3462aa 4kx353dv9 333fb4 2022-06-10 2022-06-10 Outpatient [id number]- [id number] 8zrm99-z 00:00:00 00:00:00 Visit lu8z-033y n6u-430b-u -x44z-yte 30f-baeed1 eo22z5cdr 3c2cfd 2022-06-07 2022-06-07 Outpatient [id number]- [id number] 4r2o3a-b 00:00:00 00:00:00 Visit v79d-7to8 14d-4ac1-a -aca5-fb2 ca5-fb2d67 e45n40020 c88403 2022-06-02 2022-06-02 Outpatient [id number]- [id number] 9036ff-e 00:00:00 00:00:00 Visit is2k-46it r2q-52ex-7 -3ee5-1yw ec9-1sq947 982385r5t 563b9b 2022-05-27 2022-05-27 Laboratory Only, Ang Db Test [facility] 1.2.8 40.114 [id number] Univers 14:15:00 14:30:00 Only Radha Jimenez [facility] 350.1.13.10 [facility] 4.2.7.2.686 Miguel as KENNEDY?BLEA [phone] Me dical [address] MEDICAL OFFICE BUILDING 2022-05-27 2022-05-27 Outpatient R [facility] [id number] Univers 14:15:00 14:15:00 [id number] [facility] 2022-05-27 2022-05-27 [facility] [id number] Univers 14:15:00 14:15[facility] 2022-04-22 2022-04-22 Outpatient [id number]- [id number] g0934w-4 00:00:00 00:00:00 Visit 5555-4f40 555-4f40-a -y99l-374 37d-209fea fnh51oo1d 58af1b 2021-06-30 2021-06-30 OFFICE STLMLC STLMLC [id number] Co mmon 00:00:00 00:00:00 VISIT EST Spir it PT LEVEL 3 - [facility] 2021-06-05 2021-06-05 (TEL) STLMLC STLMLC [id number] Co mmon 00:00:00 00:00:00 Spirit - [facility] 2021-05-31 2021-05-31 OFFICE STLMLC STLMLC [id number] Co mmon 00:00:00 00:00:00 VISIT Spirit ESTAB PT - CHI LEVEL 4 [facility] 2021-01-09 2021-01-09 Outpatient [facility] [id number] Univers 11:55:00 11:55:00 [facility] 2020-12-19 2020-12-19 Outpatient [facility] [id number] Univers 16:25:00 16:25:00 [facility] 2020-11-04 2020-11-04 (TEL) STLMLC STLMLC [id number] Co mmon 00:00:00 00:00:00 [facility] 2020-11-03 2020-11-03 OFFICE STLMLC STLMLC [id number] Co mmon 00:00:00 00:00:00 VISIT EST Spir it PT LEVEL 3 [facility] 2020-09-24 2020-09-24 (TEL) STLMLC STLMLC [id number] Co mmon 00:00:00 00:00:00 [facility] 2020-09-22 2020-09-22 OFFICE STLMLC STLMLC [id number] Co mmon 00:00:00 00:00:00 VISIT EST Spir it PT LEVEL 3 [facility] 2020-09-22 2020-09-22 (TEL) STLMLC STLMLC [id number] Co mmon 00:00:00 00:00:00 [facility] 2020-09-21 2020-09-21 (TEL) STLMLC STLMLC [id number] Co mmon 00:00:00 00:00:00 [facility] 2020-09-18 2020-09-18 OFFICE STLMLC STLMLC [id number] Co mmon 00:00:00 00:00:00 VISIT EST Spir it PT LEVEL 3 [facility] 2020-04-17 2020-04-17 Out[facility] [id number] Common 09:20:00 09:20:00 [facility] [address] [facility] 2020-04-14 2020-04-14 Outpatient [facility] [id number] Common 14:41:00 14:41:00 [facility] [address] [facility] 2020-03-20 2020-03-20 Outpatient [facility] [id number] Common 15:20:00 15:20:[address] [facility] [address] [facility] 2019-12-18 2019-12-18 Outpatient [facility] [id number] Common 09:22:00 09:22:00 [facility] [address] [facility] 2019-10-07 2019-10-07 Out[facility] [id number] Common 13:00:00 13:00:[address] [facility] 2019-09-17 2019-09-17 Outpatient [facility] [id number] Common 10:42:00 10:42:[address] [facility] 2019-09-17 2019-09-17 Outpatient [facility] 28 [id number] Common 09:30:00 09:30:[address] [facility] 2019-07-24 2019-07-24 Outpatient [facility] [id number] Common 00:37:00 00:37:[address] [facility] 2019-07-21 2019-07-21 Outpatient [facility] [id number] Common 14:16:00 14:16:[address] [facility] 2019-07-19 2019-07-19 Outpatient [facility] 27 [id number] Common 12:07:00 12:07:[address] [facility] 2019-07-19 2019-07-19 Outpatient [facility] [id number] Common 10:40:00 10:40:[address] [facility] 2019-06-10 2019-06-10 Outpatient [facility] [id number] Common 09:59:00 09:59:00 [facility] 2019-06-07 2019-06-07 Outpatient [facility] [id number] Common 16:30:00 16:30:00 t [facility] 2018-07-02 2018-07-02 Outpatient [facility] [id number] Common 10:54:00 10:54:[address] [facility] 2018-06-28 2018-06-28 Outpatient [facility] [id number] Common 16:51:00 16:51:[address] [facility] 2018-06-13 2018-06-13 Outpatient [facility] [id number] Common 21:04:00 21:04:[address] [facility] 2018-06-13 2018-06-13 Outpatient [facility] 21 [id number] Common 11:49:00 11:49:[address] [facility] 2018-06-13 2018-06-13 Outpatient [facility] [id number] Common 09:00:00 09:00:[address] [facility] 2018-05-14 2018-05-14 Outpatient [facility] [id number] Common 17:36:00 17:36:[address] [facility] 2018-04-17 2018-04-17 Outpatient [facility] 14 [id number] Common 16:15:00 16:15:[address] [facility] 2018-04-11 2018-04-11 Outpatient [facility] [id number] Common 09:07:00 09:07:[address] [facility] 2018-04-09 2018-04-09 Outpatient [facility] [id number] Common 11:50:00 11:50:[address] [facility] 2018-03-26 2018-03-26 Outpatient [facility] 14 [id number] Common 21:50:00 21:50:[address] [facility] 2018-03-23 2018-03-23 Outpatient [facility] 14 [id number] Common 14:00:00 14:00:[address] [facility] 2018-03-14 2018-03-14 Outpatient [facility] 14 [id number] Common 14:16:00 14:16:[address] [facility] 2018-03-09 2018-03-09 Outpatient [facility] [id number] Common 14:30:00 14:30:00 [facility] it Road [facility] 2018-01-23 2018-01-23 Outpatient Meghna Arrieta 13 [id number] Common 10:00:00 10:00:00 [facility] it Road [facility] Results Test Description Test Time Test Comments Results Result Comments Source CT/NG, NAAT, URINE 2023-06-29 17:45:34 Test Item Value Reference Range Interpretation Comme nts CHLAMYDIA, NAAT, URINE (test NEGATIVE NEGATIVE Testing is performed with Steve code = 85771) CECILE 6800/880 0 systems usingreal-time polymerase chain reaction (PCR) method. A negative result does not exclude low level infection, spec imensampling error, or collection e rror. GONORRHEA, NAAT, URINE (test NEGATIVE NEGATIVE Testing is performed with Steve code = 99757) CECILE 6800/880 0 systems usingreal-time polymerase chain reaction (PCR) method. A negative result does not exclude low level infection, spec imensampling error, or collection e rror. UNLESS OTHERWISE INDIC ATED, ALL TESTING PERFORMED AT [facility], [facility]. [address] [place] [address] 1722 4 WIRELESS WATCHER: HELADIO LORD M.D. CLIA NUMBER [id number] CAP ACCREDITATION N O. [id number] VAGINAL PATHOGENS DNA [id number] 16:02:05 Test Item Value Reference Range Interpretation Comments RAMESH SPECIES NEGATIVE NEGATIVE (test code = ) G. VAGINALIS POSITIVE NEGATIVE A (test code = ) T. VAGINALIS NEGATIVE NEGATIVE Note: The BD A ffirm VPIII (test code = Microbial Ident ification ) Testis a DNA pr obe test intended for us e in the detectionand id entification of Ramesh spec ies, Gardnerellavagi nalis and Trichomonas vag inalis nucleic acid. UNLESS OTHERWISE INDIC ATED, ALL TESTING PERFORM ED AT CLINICAL PATHOL [facility]GY [facility], [place]. [address] [place] [address] 3329 LABORATORY DIRE CTOR: ANY REARDON M.D. CLIA NUMBER [id number] CAP ACCREDITATION N O. [id number] HIV 1/2 4TH GEN, RFLX [id number] 05:06:39 Test Item Value Reference Range Interpretation Comments HIV 1/2 4TH GEN, RFLX CONF (test NON-REACTIVE NON-REACTIVE code = 3514) RPR REFLEX TO T. PALLIDUM - [id number] 02:51:32 Test Item Value Reference Range Interpretation Comments RPR (test code = 41841) NON-REACTIVE NON-REACTIVE RPR TITER (test code = 3500) NOT INDIC. TITER NOT INDIC. CT/NG, NAAT, [id number] 18:39:31 Test Item Value Reference Range Interpretation Comments CHLAMYDIA, NAAT, NEGATIVE NEGATIVE Testing is performed with URINE (test code Steve CECILE 6800/8800 = 40090) systems usingre al-time polymerase ankita n reaction (PCR) method. A negative result does not exclude low level infection , specimensamplin g error, or collection erro r. GONORRHEA, NAAT, NEGATIVE NEGATIVE Testing is performed with URINE (test code Steve CECILE 6800/8800 = 19965) systems usingre al-time polymerase ankita n reaction (PCR) method. A negative result does not exclude low level infection , specimensamplin g error, or collection erro r. TRICHOMONAS, NAAT, [id number] 18:21:30 Test Item Value Reference Range Interpretation Comments TRICHOMONAS, NEGATIVE NEGATIVE Testing is per formed with NAAT, URINE (test Steve SABIHA S 6800/8800 method code = 72347) usingreal-time polymerase chain reaction (PCR) method. A negative resu lt does not exclude low lev el infection, specimensamplin g error, or collection erro r. UNLESS OTHERWISE INDIC ATED, ALL TESTING PERFORM ED AT CLINICAL PATHOL [facility], [place] [address] 2175 LABORATORY DIRE CTOR: ANY REARDON M.D. CLIA NUMBER [id number] CAP ACCREDITATION N O. [id number] HIV 1/2 4TH GEN, RFLX [id number] 06:48:28 Test Item Value Reference Range Interpretation Comments HIV 1/2 4TH GEN, RFLX CONF (test NON-REACTIVE NON-REACTIVE code = 3514) HEPATITIS PANEL, [id number] 06:48:28 Test Item Value Reference Range Interpretation Comments HEPATITIS A IgM (test NON-REACTIVE NON-REACTIVE code = 41938) HEPATITIS B CORE IgM NON-REACTIVE NON-REACTIVE (test code = 4644) HEPATITIS B SURF AG NON-REACTIVE NON-REACTIVE (test code = 2739) HEPATITIS C ANTIBODY NON-REACTIVE NON-REACTIVE (test code = 4675) INTERPRETATION (NOTE) Hepatitis A HEPATITIS A: (test code sero logy shows no = 2552) evidence of acu te hepatitis A. INTERPRETATION (NOTE) Hepatitis B HEPATITIS B: (test code sero logy shows no = 51221) evidence of acu te hepatitis B and no indication of exposure to hepatitis B vir us in the previous daisy eight months. INTERPRETATION (NOTE) Hepatitis C HEPATITIS C: (test code sero logy shows no = 24611) evidence of exposure to hepatitisC viru s at this time. I t can take up to 12 months after exposure tothe hepatitis C vir us for antibodies to become detectab le in the blood in certain patient s. [id number] 03:59:34 Test Item Value Reference Range Interpretation Comments RPR RESULT (test code = NON-REACTIVE NON-REACTIVE 3501) RPR TITER (test code = 3500) NOT INDIC. TITER NOT INDIC. POCT [id number] 12:16:00 Test Item Value Reference Range Interpretation Comments POCT PREG (test code = 1605) Negative On board controls acceptable with Yes C Line (test code = 3574) POCT PREG LOT # (test code = 3575) [id number] POCT PREG TEST DATE (test 03/01/24 code = 3576) Lab Interpretation (test code = Normal 65004-8) [facility] [id number] 12:16:00 Test Item Value Reference Range Interpretation Comments POCT PREG (test code = 1605) Negative On board controls acceptable with Yes C Line (test code = 3574) POCT PREG LOT # (test code = 3575) [id number] POCT PREG TEST DATE (test 03/01/24 code = 3576) Lab Interpretation (test code = Normal 06991-6) [facility] [id number] 19:46:00 Test Item Value Reference Range Interpretation Comments POCT PREG (test code = 1605) Negative On board controls acceptable with C Yes Line (test code = 3574) POCT PREG LOT # (test code = 3575) POCT PREG TEST DATE (test code = 3576) [facility] [id number] 19:46:00 Test Item Value Reference Range Interpretation Comments POCT PREG (test code = 1605) Negative On board controls acceptable with C Yes Line (test code = 3574) POCT PREG LOT # (test code = 3575) POCT PREG TEST DATE (test code = 3576) [facility]/O SPECIFIC [id number] 17:08:00 Test Item Value Reference Range Interpretation [...] 3257) Negative Negative - Negative [facility]/O SPECIFIC [id number] 17:08:00 Test Item Value Reference Range Interpretation [...] 3257) Negative Negative - Negative [facility]NG, NAAT, [id number] 20:17:25 Test Item Value Reference Range Interpretation Comments GONORRHEA, NAAT NEGATIVE NEGATIVE Note: Testi ng is (test code = 25285) performe d with Steve CECILE 6800/8800 systems using real-time polymerase ankita n reaction (PCR) method. CHLAMYDIA, NAAT NEGATIVE NEGATIVE Note: Testi ng is (test code = 48296) performe d with Steve CECILE 6800/8800 systems using real-time polymerase ankita n reaction (PCR) method. VAGINAL PATHOGENS DNA [id number] 15:23:23 Test Item Value Reference Range Interpretation Comments RAMESH SPECIES NEGATIVE NEGATIVE (test code = ) [...] ATED, ALL TESTING PERFORM ED ATCLINICAL PATHOLOGY [facility], [facility]. [address] [place] [address] LABORATOR Y DIRECTOR: ODILON MARIANO M.D. CLIA NUMBER [id number] CAP ACCREDITATION N O. [id number] HIV 1/2 4TH GEN, RFLX [id number] 05:39:18 Test Item Value Reference Range Interpretation Comments HIV 1/2 4TH GEN, RFLX CONF (test NON-REACTIVE NON-REACTIVE code = 3514) HEPATITIS PANEL, [id number] 05:39:18 Test Item Value Reference Range Interpretation Comments HEPATITIS A IgM (test NON-REACTIVE NON-REACTIVE code = 91109) HEPATITIS B CORE IgM NON-REACTIVE NON-REACTIVE (test code = 4644) HEPATITIS B SURF AG NON-REACTIVE NON-REACTIVE (test code = 2739) HEPATITIS C ANTIBODY NON-REACTIVE NON-REACTIVE (test code = 4675) INTERPRETATION (NOTE) Hepatitis A HEPATITIS A: (test code sero logy shows no = 2552) evidence of acu te hepatitis A. INTERPRETATION (NOTE) Hepatitis B HEPATITIS B: (test code sero logy shows no = 33193) evidence of acu te hepatitis B and no indication of exposure to hepatitis B vir us in the previous daisy eight months. INTERPRETATION (NOTE) Hepatitis C HEPATITIS C: (test code sero logy shows no = 51319) evidence of exposure to hepatitisC viru s at this time. I t can take up to 12 months after exposure tothe hepatitis C vir us for antibodies to become detectab le in the blood in certain patient s. RPR REFLEX TO T. PALLIDUM - [id number] 04:43:57 Test Item Value Reference Range Interpretation Comments RPR (test code = 34504) NON-REACTIVE NON-REACTIVE RPR TITER (test code = 3500) NOT INDIC. TITER NOT INDIC. RPR REFLEX TO T. PALLIDUM - [id number] 00:00:00 Test Item Value Reference Range Interpretation Comments RPR (test code = 26498) NON-REACTIVE RPR TITER (test code = 3500) NOT INDIC. TITER RPR REFLEX TO T. PALLIDUM - [id number] 00:00:00 Test Item Value Reference Range Interpretation Comments RPR (test code = 40680) NON-REACTIVE RPR TITER (test code = 3500) NOT INDIC. TITER HIV AB/AG COMBO RFLX [id number] 00:00:00 Test Item Value Reference Range Interpretation Comments HIV 1/2 4TH GEN, RFLX CONF (test NON-REACTIVE code = 3514) HIV AB/AG COMBO RFLX [id number] 00:00:00 Test Item Value Reference Range Interpretation Comments HIV 1/2 4TH GEN, RFLX CONF (test NON-REACTIVE code = 3514) ACUTE HEPATITIS [id number] 00:00:00 Test Item Value Reference Range Interpretation Comments HEPATITIS A IgM (test code = NON-REACTIVE 83437) HEPATITIS B CORE IgM (test code NON-REACTIVE = 4644) HEPATITIS B SURF AG (test code = NON-REACTIVE 2739) HEPATITIS C ANTIBODY (test code NON-REACTIVE = 4675) INTERPRETATION HEPATITIS A: (NOTE) (test code = 2552) INTERPRETATION HEPATITIS B: (NOTE) (test code = 93422) INTERPRETATION HEPATITIS C: (NOTE) (test code = 51519) ACUTE HEPATITIS [id number] 00:00:00 Test Item Value Reference Range Interpretation Comments HEPATITIS A IgM (test code = NON-REACTIVE 28418) HEPATITIS B CORE IgM (test code NON-REACTIVE = 4644) HEPATITIS B SURF AG (test code = NON-REACTIVE 2739) HEPATITIS C ANTIBODY (test code NON-REACTIVE = 4675) INTERPRETATION HEPATITIS A: (NOTE) (test code = 2552) INTERPRETATION HEPATITIS B: (NOTE) (test code = 44277) INTERPRETATION HEPATITIS C: (NOTE) (test code = 74335) CT/NG, TMA, [id number] 00:00:00 Test Item Value Reference Range Interpretation Comments GONORRHEA, NAAT (test code = 70007) NEGATIVE CHLAMYDIA, NAAT (test code = 30888) NEGATIVE CT/NG, TMA, [id number] 00:00:00 Test Item Value Reference Range Interpretation Comments GONORRHEA, NAAT (test code = 92890) NEGATIVE CHLAMYDIA, NAAT (test code = 89743) NEGATIVE VAGINAL PATHOGENS DNA [id number] 00:00:00 Test Item Value Reference Range Interpretation Comments RAMESH SPECIES (test code = ) NEGATIVE G. VAGINALIS (test code = 19386) NEGATIVE T. VAGINALIS (test code = 53982) POSITIVE VAGINAL PATHOGENS DNA [id number] 00:00:00 Test Item Value Reference Range Interpretation Comments RAMESH SPECIES (test code = ) NEGATIVE G. VAGINALIS (test code = 12056) NEGATIVE T. VAGINALIS (test code = 24461) POSITIVE CULTURE, [id number] 00:00:00 Test Item Value Reference Range Interpretation Comments CULTURE, URINE (test SPECIMEN NUMBER: code = 89070) [id number] CULTURE, [id number] 00:00:00 Test Item Value Reference Range Interpretation Comments CULTURE, URINE (test SPECIMEN NUMBER: code = 26786) [id number] CULTURE, [id number] 00:00:00 Test Item Value Reference Range Interpretation Comments CULTURE, URINE (test SPECIMEN NUMBER: code = 21317) [id number] CULTURE, [id number] 00:00:00 Test Item Value Reference Range Interpretation Comments CULTURE, URINE (test SPECIMEN NUMBER: code = 81056) [id number] CULTURE, [id number] 00:00:00 Test Item Value Reference Range Interpretation Comments CULTURE, URINE (test SPECIMEN NUMBER: code = 29531) [id number] CULTURE, [id number] 00:00:00 Test Item Value Reference Range Interpretation Comments CULTURE, URINE (test SPECIMEN NUMBER: code = 74477) [id number] CULTURE, [id number] 11:18:54SPECIMEN NUMBER: [id number] CULTURE, URINE SPECIMEN NUMBER: [id number] SPECIMEN COMMENT: URINE SOURCE:URINE REPORT STATUS: FINAL FINAL REPORT: 07/16/2022 10-50,000 CFU/ML UROGENITAL OLEKSANDR PRESENT NO COMM ON PATHOGENSCULTURE, [id number] 00:00:00 Test Item Value Reference Range Interpretation Comments CULTURE, URINE (test SPECIMEN NUMBER: code = 59032) [id number] CULTURE, [id number] 00:00:00 Test Item Value Reference Range Interpretation Comments CULTURE, URINE (test SPECIMEN NUMBER: code = 51822) [id number] CULTURE, [id number] 00:00:00 Test Item Value Reference Range Interpretation Comments CULTURE, URINE (test SPECIMEN NUMBER: code = 73575) [id number] CULTURE, [id number] 00:00:00 Test Item Value Reference Range Interpretation Comments CULTURE, URINE (test SPECIMEN NUMBER: code = 18427) [id number] CULTURE, [id number] 00:00:00 Test Item Value Reference Range Interpretation Comments CULTURE, URINE (test SPECIMEN NUMBER: code = 05439) [id number] CULTURE, [id number] 00:00:00 Test Item Value Reference Range Interpretation Comments CULTURE, URINE (test SPECIMEN NUMBER: code = 90866) [id number] CULTURE, [id number] 00:00:00 Test Item Value Reference Range Interpretation Comments CULTURE, URINE (test SPECIMEN NUMBER: code = 46518) [id number] CULTURE, [id number] 00:00:00 Test Item Value Reference Range Interpretation Comments CULTURE, URINE (test SPECIMEN NUMBER: code = 19210) [id number] CT/NG, NAAT, [id number] 19:32:40 Test Item Value Reference Range Interpretation Comments GONORRHEA, NAAT NEGATIVE NEGATIVE IMPORTA NT NOTICE: SEE (test code = [place] [address]) [email or web address] Note: Assay methodology is nucleic acid amplification b y jeeper operator m ediated amplification ( TMA) utilizing the A ptima Combo 2 Assay. CHLAMYDIA, NAAT NEGATIVE NEGATIVE IMPORTA NT NOTICE: SEE (test code = [place] [address]) [email or web address] Note: Assay methodology is nucleic acid amplification b y jeeper operator m ediated amplification ( TMA) utilizing the A ptima Combo 2 Assay. VAGINAL PATHOGENS DNA [id number] 15:57:03 Test Item Value Reference Range Interpretation Comments RAMESH SPECIES (test NEGATIVE NEGATIVE code = ) G. VAGINALIS (test POSITIVE NEGATIVE A code = ) T. VAGINALIS (test POSITIVE NEGATIVE A UNLESS O THERWISE code = ) INDICATED, ALL TESTING PERFORMED [facility] PATHOLOGY [facility], [facility]. [address] [place] [address] 4 LABORATORY DIRE CTOR: ODILON MARIANO M.D. CLIA NUMBER [id number] [place] [id number] 04:58:02 Test Item Value Reference Range Interpretation Comments RPR RESULT (test code = NON-REACTIVE NON-REACTIVE 3501) RPR TITER (test code = 3500) NOT INDIC. TITER NOT INDIC. HIV 1/2 4TH GEN, RFLX [id number] 03:09:22 Test Item Value Reference Range Interpretation Comments HIV 1/2 4TH GEN, RFLX CONF (test NON-REACTIVE NON-REACTIVE code = 3514) HEPATITIS PANEL, [id number] 03:09:22 Test Item Value Reference Range Interpretation Comments HEPATITIS A IgM (test NON-REACTIVE NON-REACTIVE code = 48007) HEPATITIS B CORE IgM NON-REACTIVE NON-REACTIVE (test code = 4644) HEPATITIS B SURF AG NON-REACTIVE NON-REACTIVE (test code = 2739) HEPATITIS C ANTIBODY NON-REACTIVE NON-REACTIVE (test code = 4675) INTERPRETATION (NOTE) Hepatitis A HEPATITIS A: (test code sero logy shows no = 2552) evidence of acu te hepatitis A. INTERPRETATION (NOTE) Hepatitis B HEPATITIS B: (test code sero logy shows no = 56765) evidence of acu te hepatitis B and no indication of exposure to hepatitis B vir us in the previous daisy eight months. INTERPRETATION (NOTE) Hepatitis C HEPATITIS C: (test code sero logy shows no = 00480) evidence of exposure to hepatitisC viru s at this time. I t can take up to 12 months after exposure tothe hepatitis C vir us for antibodies to become detectab le in the blood i n certain patient s. HIV 1/2 4TH GEN, RFLX [id number] 00:00:00 Test Item Value Reference Range Interpretation Comments HIV 1/2 4TH GEN, RFLX CONF (test NON-REACTIVE code = 3514) HIV 1/2 4TH GEN, RFLX [id number] 00:00:00 Test Item Value Reference Range Interpretation Comments HIV 1/2 4TH GEN, RFLX CONF (test NON-REACTIVE code = 3514) CT/NG, TMA, [id number] 00:00:00 Test Item Value Reference Range Interpretation Comments GONORRHEA, NAAT (test code = 27699) NEGATIVE CHLAMYDIA, NAAT (test code = 01721) NEGATIVE CT/NG, TMA, [id number] 00:00:00 Test Item Value Reference Range Interpretation Comments GONORRHEA, NAAT (test code = 19396) NEGATIVE CHLAMYDIA, NAAT (test code = 19728) NEGATIVE [id number] 00:00:00 Test Item Value Reference Range Interpretation Comments RPR RESULT (test code = NON-REACTIVE 3501) RPR TITER (test code = 3500) NOT INDIC. TITER [id number] 00:00:00 Test Item Value Reference Range Interpretation Comments RPR RESULT (test code = NON-REACTIVE 3501) RPR TITER (test code = 3500) NOT INDIC. TITER [id number] 00:00:00 Test Item Value Reference Range Interpretation Comments RPR RESULT (test code = NON-REACTIVE 3501) RPR TITER (test code = 3500) NOT INDIC. TITER ACUTE HEPATITIS [id number] 00:00:00 Test Item Value Reference Range Interpretation Comments HEPATITIS A IgM (test code = NON-REACTIVE 93697) HEPATITIS B CORE IgM (test code NON-REACTIVE = 4644) HEPATITIS B SURF AG (test code = NON-REACTIVE 2739) HEPATITIS C ANTIBODY (test code NON-REACTIVE = 4675) INTERPRETATION HEPATITIS A: (NOTE) (test code = 2552) INTERPRETATION HEPATITIS B: (NOTE) (test code = 56484) INTERPRETATION HEPATITIS C: (NOTE) (test code = 21361) ACUTE HEPATITIS [id number] 00:00:00 Test Item Value Reference Range Interpretation Comments HEPATITIS A IgM (test code = NON-REACTIVE 07658) HEPATITIS B CORE IgM (test code NON-REACTIVE = 4644) HEPATITIS B SURF AG (test code = NON-REACTIVE 2739) HEPATITIS C ANTIBODY (test code NON-REACTIVE = 4675) INTERPRETATION HEPATITIS A: (NOTE) (test code = 2552) INTERPRETATION HEPATITIS B: (NOTE) (test code = 35111) INTERPRETATION HEPATITIS C: (NOTE) (test code = 66178) VAGINAL PATHOGENS DNA [id number] 00:00:00 Test Item Value Reference Range Interpretation Comments RAMESH SPECIES (test code = ) NEGATIVE G. VAGINALIS (test code = ) POSITIVE T. VAGINALIS (test code = ) POSITIVE VAGINAL PATHOGENS DNA [id number] 00:00:00 Test Item Value Reference Range Interpretation Comments RAMESH SPECIES (test code = ) NEGATIVE G. VAGINALIS (test code = ) POSITIVE T. VAGINALIS (test code = ) POSITIVE HIV 1/2 4TH GEN, RFLX [id number] 00:00:00 Test Item Value Reference Range Interpretation Comments HIV 1/2 4TH GEN, RFLX CONF (test NON-REACTIVE code = 3514) HIV 1/2 4TH GEN, RFLX [id number] 00:00:00 Test Item Value Reference Range Interpretation Comments HIV 1/2 4TH GEN, RFLX CONF (test NON-REACTIVE code = 3514) CT/NG, TMA, [id number] 00:00:00 Test Item Value Reference Range Interpretation Comments GONORRHEA, NAAT (test code = 17575) NEGATIVE CHLAMYDIA, NAAT (test code = 93088) NEGATIVE CT/NG, TMA, [id number] 00:00:00 Test Item Value Reference Range Interpretation Comments GONORRHEA, NAAT (test code = 07561) NEGATIVE CHLAMYDIA, NAAT (test code = 09071) NEGATIVE [id number] 00:00:00 Test Item Value Reference Range Interpretation Comments RPR RESULT (test code = NON-REACTIVE 3501) RPR TITER (test code = 3500) NOT INDIC. TITER [id number] 00:00:00 Test Item Value Reference Range Interpretation Comments RPR RESULT (test code = NON-REACTIVE 3501) RPR TITER (test code = 3500) NOT INDIC. TITER [id number] 00:00:00 Test Item Value Reference Range Interpretation Comments RPR RESULT (test code = NON-REACTIVE 3501) RPR TITER (test code = 3500) NOT INDIC. TITER ACUTE HEPATITIS [id number] 00:00:00 Test Item Value Reference Range Interpretation Comments HEPATITIS A IgM (test code = NON-REACTIVE 25283) HEPATITIS B CORE IgM (test code NON-REACTIVE = 4644) HEPATITIS B SURF AG (test code = NON-REACTIVE 2739) HEPATITIS C ANTIBODY (test code NON-REACTIVE = 4675) INTERPRETATION HEPATITIS A: (NOTE) (test code = 2552) INTERPRETATION HEPATITIS B: (NOTE) (test code = 21504) INTERPRETATION HEPATITIS C: (NOTE) (test code = 71060) ACUTE HEPATITIS [id number] 00:00:00 Test Item Value Reference Range Interpretation Comments HEPATITIS A IgM (test code = NON-REACTIVE 03354) HEPATITIS B CORE IgM (test code NON-REACTIVE = 4644) HEPATITIS B SURF AG (test code = NON-REACTIVE 2739) HEPATITIS C ANTIBODY (test code NON-REACTIVE = 4675) INTERPRETATION HEPATITIS A: (NOTE) (test code = 2552) INTERPRETATION HEPATITIS B: (NOTE) (test code = 92182) INTERPRETATION HEPATITIS C: (NOTE) (test code = 17558) VAGINAL PATHOGENS DNA [id number] 00:00:00 Test Item Value Reference Range Interpretation Comments RAMESH SPECIES (test code = 68480) NEGATIVE G. VAGINALIS (test code = 30557) POSITIVE T. VAGINALIS (test code = 84665) POSITIVE VAGINAL PATHOGENS DNA [id number] 00:00:00 Test Item Value Reference Range Interpretation Comments RAMESH SPECIES (test code = 57534) NEGATIVE G. VAGINALIS (test code = 09192) POSITIVE T. VAGINALIS (test code = 07987) POSITIVE HIV 1/2 4TH GEN, RFLX [id number] 00:00:00 Test Item Value Reference Range Interpretation Comments HIV 1/2 4TH GEN, RFLX CONF (test NON-REACTIVE code = 3514) HIV 1/2 4TH GEN, RFLX [id number] 00:00:00 Test Item Value Reference Range Interpretation Comments HIV 1/2 4TH GEN, RFLX CONF (test NON-REACTIVE code = 3514) CT/NG, TMA, [id number] 00:00:00 Test Item Value Reference Range Interpretation Comments GONORRHEA, NAAT (test code = 43949) NEGATIVE CHLAMYDIA, NAAT (test code = 22813) NEGATIVE CT/NG, TMA, [id number] 00:00:00 Test Item Value Reference Range Interpretation Comments GONORRHEA, NAAT (test code = 07294) NEGATIVE CHLAMYDIA, NAAT (test code = 53945) NEGATIVE [id number] 00:00:00 Test Item Value Reference Range Interpretation Comments RPR RESULT (test code = NON-REACTIVE 3501) RPR TITER (test code = 3500) NOT INDIC. TITER [id number] 00:00:00 Test Item Value Reference Range Interpretation Comments RPR RESULT (test code = NON-REACTIVE 3501) RPR TITER (test code = 3500) NOT INDIC. TITER [id number] 00:00:00 Test Item Value Reference Range Interpretation Comments RPR RESULT (test code = NON-REACTIVE 3501) RPR TITER (test code = 3500) NOT INDIC. TITER ACUTE HEPATITIS [id number] 00:00:00 Test Item Value Reference Range Interpretation Comments HEPATITIS A IgM (test code = NON-REACTIVE 51624) HEPATITIS B CORE IgM (test code NON-REACTIVE = 4644) HEPATITIS B SURF AG (test code = NON-REACTIVE 2739) HEPATITIS C ANTIBODY (test code NON-REACTIVE = 4675) INTERPRETATION HEPATITIS A: (NOTE) (test code = 2552) INTERPRETATION HEPATITIS B: (NOTE) (test code = 11161) INTERPRETATION HEPATITIS C: (NOTE) (test code = 48365) ACUTE HEPATITIS [id number] 00:00:00 Test Item Value Reference Range Interpretation Comments HEPATITIS A IgM (test code = NON-REACTIVE 08117) HEPATITIS B CORE IgM (test code NON-REACTIVE = 4644) HEPATITIS B SURF AG (test code = NON-REACTIVE 2739) HEPATITIS C ANTIBODY (test code NON-REACTIVE = 4675) INTERPRETATION HEPATITIS A: (NOTE) (test code = 2552) INTERPRETATION HEPATITIS B: (NOTE) (test code = 69207) INTERPRETATION HEPATITIS C: (NOTE) (test code = 44108) VAGINAL PATHOGENS DNA [id number] 00:00:00 Test Item Value Reference Range Interpretation Comments RAMESH SPECIES (test code = 43088) NEGATIVE G. VAGINALIS (test code = ) POSITIVE T. VAGINALIS (test code = 96299) POSITIVE VAGINAL PATHOGENS DNA [id number] 00:00:00 Test Item Value Reference Range Interpretation Comments RAMESH SPECIES (test code = ) NEGATIVE G. VAGINALIS (test code = 19502) POSITIVE T. VAGINALIS (test code = 63088) POSITIVE HIV 1/2 4TH GEN, RFLX [id number] 00:00:00 Test Item Value Reference Range Interpretation Comments HIV 1/2 4TH GEN, RFLX CONF (test NON-REACTIVE code = 3514) HIV 1/2 4TH GEN, RFLX [id number] 00:00:00 Test Item Value Reference Range Interpretation Comments HIV 1/2 4TH GEN, RFLX CONF (test NON-REACTIVE code = 3514) CT/NG, TMA, [id number] 00:00:00 Test Item Value Reference Range Interpretation Comments GONORRHEA, NAAT (test code = 07600) NEGATIVE CHLAMYDIA, NAAT (test code = 33090) NEGATIVE CT/NG, TMA, [id number] 00:00:00 Test Item Value Reference Range Interpretation Comments GONORRHEA, NAAT (test code = 15274) NEGATIVE CHLAMYDIA, NAAT (test code = 24074) NEGATIVE [id number] 00:00:00 Test Item Value Reference Range Interpretation Comments RPR RESULT (test code = NON-REACTIVE 3501) RPR TITER (test code = 3500) NOT INDIC. TITER [id number] 00:00:00 Test Item Value Reference Range Interpretation Comments RPR RESULT (test code = NON-REACTIVE 3501) RPR TITER (test code = 3500) NOT INDIC. TITER [id number] 00:00:00 Test Item Value Reference Range Interpretation Comments RPR RESULT (test code = NON-REACTIVE 3501) RPR TITER (test code = 3500) NOT INDIC. TITER ACUTE HEPATITIS [id number] 00:00:00 Test Item Value Reference Range Interpretation Comments HEPATITIS A IgM (test code = NON-REACTIVE 79551) HEPATITIS B CORE IgM (test code NON-REACTIVE = 1344) HEPATITIS B SURF AG (test code = NON-REACTIVE 6459) HEPATITIS C ANTIBODY (test code NON-REACTIVE = 4638) INTERPRETATION HEPATITIS A: (NOTE) (test code = 2552) INTERPRETATION HEPATITIS B: (NOTE) (test code = 74295) INTERPRETATION HEPATITIS C: (NOTE) (test code = 02820) ACUTE HEPATITIS [id number] 00:00:00 Test Item Value Reference Range Interpretation Comments HEPATITIS A IgM (test code = NON-REACTIVE 45755) HEPATITIS B CORE IgM (test code NON-REACTIVE = 4644) HEPATITIS B SURF AG (test code = NON-REACTIVE 5939) HEPATITIS C ANTIBODY (test code NON-REACTIVE = 1670) INTERPRETATION HEPATITIS A: (NOTE) (test code = 2552) INTERPRETATION HEPATITIS B: (NOTE) (test code = 97910) INTERPRETATION HEPATITIS C: (NOTE) (test code = 77286) VAGINAL PATHOGENS DNA [id number] 00:00:00 Test Item Value Reference Range Interpretation Comments RAMESH SPECIES (test code = ) NEGATIVE G. VAGINALIS (test code = 34922) POSITIVE T. VAGINALIS (test code = 96063) POSITIVE VAGINAL PATHOGENS DNA [id number] 00:00:00 Test Item Value Reference Range Interpretation Comments RAMESH SPECIES (test code = ) NEGATIVE G. VAGINALIS (test code = 29584) POSITIVE T. VAGINALIS (test code = 52691) POSITIVE TSH, THIRD [id number] 06:51:11 Test Item Value Reference Range Interpretation Comments TSH, THIRD GENERATION (test code 0.937 UIU/ML 0.400-4.100 = 2821) HEMOGLOBIN [id number] 05:51:57 Test Item Value Reference Range Interpretation Comments HEMOGLOBIN A1c (test code = 35294) 5.6 % 4.2-5.6 COMPREHENSIVE METABOLIC [id number] 04:57:05 Test Item Value Reference Range Interpretation Comments GLUCOSE (test code = 105 MG/DL 70-99 H 2216) BUN (test code = 12 MG/DL 6-20 2207) CREATININE (test 0.70 MG/DL 0.60-1.30 code = 2214) eGFR (2020 CKD-EPI) 111 >60 (test code = 15160) ML/MIN/1.73 CALC BUN/CREAT (test 17 RATIO 6-28 code = 2235) SODIUM (test code = 138 MEQ/L 286-287 4105) POTASSIUM (test code 4.1 MEQ/L 3.5-5.4 = 2227) CHLORIDE (test code 102 MEQ/L 95-107 = 2214) CARBON DIOXIDE (test 24 MEQ/L 19-31 code = 2206) CALCIUM (test code = 9.9 MG/DL 8.5-10.5 2208) PROTEIN, TOTAL (test 7.3 G/DL 6.1-8.3 code = 2229) ALBUMIN (test code = 4.8 G/DL 3.5-5.2 2200) CALC GLOBULIN (test 2.5 G/DL 1.9-3.7 code = 2240) CALC A/G RATIO (test 1.9 RATIO 1.0-2.6 code = 2234) BILIRUBIN, TOTAL 0.7 MG/DL See_Comment [Automated message] (test code = 2206) The syste m which generated this result transmit darryl reference range : <=1.2. The refe rence range was not u sed to interpret th is result as normal/abnormal . ALKALINE PHOSPHATASE 71 U/L 40-113 (test code = 2203) AST (test code = 11 U/L 9-40 2217) ALT (test code = 17 U/L 5-40 2218) LIPID [id number] 04:57:05 Test Item Value Reference Range Interpretation [...] MOREINFORMATION , SEE CLIENT ANNOUNCE MENT AT [email or web address] RATIO LDL/HDL 2.26 RATIO <3.22 (test code = 2238) CBC W/AUTO DIFF WITH [id number] 03:43:22 Test Item Value Reference Range Interpretation [...] message] code = 1065) WBC'S The system [employer] generated this result transmitted ref erence range: [...] 0.00-0.11 UNLESS O THERWISE (test code = 48014) INDICATE D, ALL TESTING PERFORM [facility], [place] [address] [facility] [place] [address] [facility] DIRECTOR: ODILON SUMMERS M.D. CLIA NUMBER [id number] CAP ACCREDITATION N O. [id number] COMPREHENSIVE METABOLIC [id number] 00:00:00 Test Item Value Reference Range Interpretation Comments GLUCOSE (test code = 2217) 105 MG/DL BUN (test code = 2208) 12 MG/DL CREATININE (test code = 2214) 0.70 MG/DL eGFR (2020 CKD-EPI) (test 111 ML/MIN/1.73 code = 21582) CALC BUN/CREAT (test code = 17 RATIO [...] code = 2219) 17 U/L COMPREHENSIVE METABOLIC [id number] 00:00:00 Test Item Value Reference Range Interpretation Comments GLUCOSE (test code = 2217) 105 MG/DL BUN (test code = 2208) 12 MG/DL CREATININE (test code = 2214) 0.70 MG/DL eGFR (2020 CKD-EPI) (test 111 ML/MIN/1.73 code = 95030) CALC BUN/CREAT (test code = 17 RATIO [...] (test code = 2219) 17 U/L LIPID [id number] 00:00:00 Test Item Value Reference Range Interpretation Comments CHOLESTEROL (test code = 2210) 249 MG/DL TRIGLYCERIDES (test code = 2232) 97 MG/DL HDL CHOLESTEROL (test code = 2220) 70 MG/DL CALC LDL CHOL (test code = 2237) 158 MG/DL RISK RATIO LDL/HDL (test code = 2.26 RATIO 2238) LIPID [id number] 00:00:00 Test Item Value Reference Range Interpretation Comments CHOLESTEROL (test code = 2210) 249 MG/DL TRIGLYCERIDES (test code = 2232) 97 MG/DL HDL CHOLESTEROL (test code = 2220) 70 MG/DL CALC LDL CHOL (test code = 2237) 158 MG/DL RISK RATIO LDL/HDL (test code = 2.26 RATIO 2238) HEMOGLOBIN [id number] 00:00:00 Test Item Value Reference Range Interpretation Comments HEMOGLOBIN A1c (test code = 36899) 5.6 % HEMOGLOBIN [id number] 00:00:00 Test Item Value Reference Range Interpretation Comments HEMOGLOBIN A1c (test code = 34935) 5.6 % HEMOGLOBIN [id number] 00:00:00 Test Item Value Reference Range Interpretation Comments HEMOGLOBIN A1c (test code = 71482) 5.6 % TSH, THIRD [id number] 00:00:00 Test Item Value Reference Range Interpretation Comments TSH, THIRD GENERATION (test code 0.937 UIU/ML = 2821) TSH, THIRD [id number] 00:00:00 Test Item Value Reference Range Interpretation Comments TSH, THIRD GENERATION (test code 0.937 UIU/ML = 2821) TSH, THIRD [id number] 00:00:00 Test Item Value Reference Range Interpretation Comments TSH, THIRD GENERATION (test code 0.937 UIU/ML = 2821) CBC W/AUTO [id number] 00:00:00 Test Item Value Reference Range Interpretation [...] NUCLEATED RBCS (test code = 0.00 K/UL 48681) CBC W/AUTO [id number] 00:00:00 Test Item Value Reference Range Interpretation [...] NUCLEATED RBCS (test code = 0.00 K/UL 78196) CBC W/AUTO [id number] 00:00:00 Test Item Value Reference Range Interpretation [...] NUCLEATED RBCS (test code = 0.00 K/UL 98545) COMPREHENSIVE METABOLIC [id number] 00:00:00 Test Item Value Reference Range Interpretation Comments GLUCOSE (test code = 2217) 105 MG/DL BUN (test code = 2208) 12 MG/DL CREATININE (test code = 2214) 0.70 MG/DL eGFR (2020 CKD-EPI) (test 111 ML/MIN/1.73 code = 74178) CALC BUN/CREAT (test code = 17 RATIO [...] code = 2219) 17 U/L COMPREHENSIVE METABOLIC [id number] 00:00:00 Test Item Value Reference Range Interpretation Comments GLUCOSE (test code = 2217) 105 MG/DL BUN (test code = 2208) 12 MG/DL CREATININE (test code = 2214) 0.70 MG/DL eGFR (2020 CKD-EPI) (test 111 ML/MIN/1.73 code = 12810) CALC BUN/CREAT (test code = 17 RATIO [...] (test code = 2219) 17 U/L LIPID [id number] 00:00:00 Test Item Value Reference Range Interpretation Comments CHOLESTEROL (test code = 2210) 249 MG/DL TRIGLYCERIDES (test code = 2232) 97 MG/DL HDL CHOLESTEROL (test code = 2220) 70 MG/DL CALC LDL CHOL (test code = 2237) 158 MG/DL RISK RATIO LDL/HDL (test code = 2.26 RATIO 2238) LIPID [id number] 00:00:00 Test Item Value Reference Range Interpretation Comments CHOLESTEROL (test code = 2210) 249 MG/DL TRIGLYCERIDES (test code = 2232) 97 MG/DL HDL CHOLESTEROL (test code = 2220) 70 MG/DL CALC LDL CHOL (test code = 2237) 158 MG/DL RISK RATIO LDL/HDL (test code = 2.26 RATIO 2238) HEMOGLOBIN [id number] 00:00:00 Test Item Value Reference Range Interpretation Comments HEMOGLOBIN A1c (test code = 78397) 5.6 % HEMOGLOBIN [id number] 00:00:00 Test Item Value Reference Range Interpretation Comments HEMOGLOBIN A1c (test code = 84093) 5.6 % HEMOGLOBIN [id number] 00:00:00 Test Item Value Reference Range Interpretation Comments HEMOGLOBIN A1c (test code = 22792) 5.6 % TSH, THIRD [id number] 00:00:00 Test Item Value Reference Range Interpretation Comments TSH, THIRD GENERATION (test code 0.937 UIU/ML = 2821) TSH, THIRD [id number] 00:00:00 Test Item Value Reference Range Interpretation Comments TSH, THIRD GENERATION (test code 0.937 UIU/ML = 2821) TSH, THIRD [id number] 00:00:00 Test Item Value Reference Range Interpretation Comments TSH, THIRD GENERATION (test code 0.937 UIU/ML = 2821) CBC W/AUTO [id number] 00:00:00 Test Item Value Reference Range Interpretation [...] NUCLEATED RBCS (test code = 0.00 K/UL 52470) CBC W/AUTO [id number] 00:00:00 Test Item Value Reference Range Interpretation [...] NUCLEATED RBCS (test code = 0.00 K/UL 03001) CBC W/AUTO [id number] 00:00:00 Test Item Value Reference Range Interpretation [...] NUCLEATED RBCS (test code = 0.00 K/UL 09966) COMPREHENSIVE METABOLIC [id number] 00:00:00 Test Item Value Reference Range Interpretation Comments GLUCOSE (test code = 2217) 105 MG/DL BUN (test code = 2208) 12 MG/DL CREATININE (test code = 2214) 0.70 MG/DL eGFR (2020 CKD-EPI) (test 111 ML/MIN/1.73 code = 25980) CALC BUN/CREAT (test code = 17 RATIO [...] code = 2219) 17 U/L COMPREHENSIVE METABOLIC [id number] 00:00:00 Test Item Value Reference Range Interpretation Comments GLUCOSE (test code = 2217) 105 MG/DL BUN (test code = 2208) 12 MG/DL CREATININE (test code = 2214) 0.70 MG/DL eGFR (2020 CKD-EPI) (test 111 ML/MIN/1.73 code = 77461) CALC BUN/CREAT (test code = 17 RATIO [...] (test code = 2219) 17 U/L LIPID [id number] 00:00:00 Test Item Value Reference Range Interpretation Comments CHOLESTEROL (test code = 2210) 249 MG/DL TRIGLYCERIDES (test code = 2232) 97 MG/DL HDL CHOLESTEROL (test code = 2220) 70 MG/DL CALC LDL CHOL (test code = 2237) 158 MG/DL RISK RATIO LDL/HDL (test code = 2.26 RATIO 2238) LIPID [id number] 00:00:00 Test Item Value Reference Range Interpretation Comments CHOLESTEROL (test code = 2210) 249 MG/DL TRIGLYCERIDES (test code = 2232) 97 MG/DL HDL CHOLESTEROL (test code = 2220) 70 MG/DL CALC LDL CHOL (test code = 2237) 158 MG/DL RISK RATIO LDL/HDL (test code = 2.26 RATIO 2238) HEMOGLOBIN [id number] 00:00:00 Test Item Value Reference Range Interpretation Comments HEMOGLOBIN A1c (test code = 77185) 5.6 % HEMOGLOBIN [id number] 00:00:00 Test Item Value Reference Range Interpretation Comments HEMOGLOBIN A1c (test code = 33823) 5.6 % HEMOGLOBIN [id number] 00:00:00 Test Item Value Reference Range Interpretation Comments HEMOGLOBIN A1c (test code = 84314) 5.6 % TSH, THIRD [id number] 00:00:00 Test Item Value Reference Range Interpretation Comments TSH, THIRD GENERATION (test code 0.937 UIU/ML = 2821) TSH, THIRD [id number] 00:00:00 Test Item Value Reference Range Interpretation Comments TSH, THIRD GENERATION (test code 0.937 UIU/ML = 2821) TSH, THIRD [id number] 00:00:00 Test Item Value Reference Range Interpretation Comments TSH, THIRD GENERATION (test code 0.937 UIU/ML = 2821) CBC W/AUTO [id number] 00:00:00 Test Item Value Reference Range Interpretation [...] NUCLEATED RBCS (test code = 0.00 K/UL 26039) CBC W/AUTO [id number] 00:00:00 Test Item Value Reference Range Interpretation [...] NUCLEATED RBCS (test code = 0.00 K/UL 73744) CBC W/AUTO [id number] 00:00:00 Test Item Value Reference Range Interpretation [...] NUCLEATED RBCS (test code = 0.00 K/UL 07533) COMPREHENSIVE METABOLIC [id number] 00:00:00 Test Item Value Reference Range Interpretation Comments GLUCOSE (test code = 2217) 105 MG/DL BUN (test code = 2208) 12 MG/DL CREATININE (test code = 2214) 0.70 MG/DL eGFR (2020 CKD-EPI) (test 111 ML/MIN/1.73 code = 88422) CALC BUN/CREAT (test code = 17 RATIO [...] code = 2219) 17 U/L COMPREHENSIVE METABOLIC [id number] 00:00:00 Test Item Value Reference Range Interpretation Comments GLUCOSE (test code = 2217) 105 MG/DL BUN (test code = 2208) 12 MG/DL CREATININE (test code = 2214) 0.70 MG/DL eGFR (2020 CKD-EPI) (test 111 ML/MIN/1.73 code = 01729) CALC BUN/CREAT (test code = 17 RATIO [...] (test code = 2219) 17 U/L LIPID [id number] 00:00:00 Test Item Value Reference Range Interpretation Comments CHOLESTEROL (test code = 2210) 249 MG/DL TRIGLYCERIDES (test code = 2232) 97 MG/DL HDL CHOLESTEROL (test code = 2220) 70 MG/DL CALC LDL CHOL (test code = 2237) 158 MG/DL RISK RATIO LDL/HDL (test code = 2.26 RATIO 2238) LIPID [id number] 00:00:00 Test Item Value Reference Range Interpretation Comments CHOLESTEROL (test code = 2210) 249 MG/DL TRIGLYCERIDES (test code = 2232) 97 MG/DL HDL CHOLESTEROL (test code = 2220) 70 MG/DL CALC LDL CHOL (test code = 2237) 158 MG/DL RISK RATIO LDL/HDL (test code = 2.26 RATIO 2238) HEMOGLOBIN [id number] 00:00:00 Test Item Value Reference Range Interpretation Comments HEMOGLOBIN A1c (test code = 41943) 5.6 % HEMOGLOBIN [id number] 00:00:00 Test Item Value Reference Range Interpretation Comments HEMOGLOBIN A1c (test code = 60240) 5.6 % HEMOGLOBIN [id number] 00:00:00 Test Item Value Reference Range Interpretation Comments HEMOGLOBIN A1c (test code = 14111) 5.6 % TSH, THIRD [id number] 00:00:00 Test Item Value Reference Range Interpretation Comments TSH, THIRD GENERATION (test code 0.937 UIU/ML = 2821) TSH, THIRD [id number] 00:00:00 Test Item Value Reference Range Interpretation Comments TSH, THIRD GENERATION (test code 0.937 UIU/ML = 2821) TSH, THIRD [id number] 00:00:00 Test Item Value Reference Range Interpretation Comments TSH, THIRD GENERATION (test code 0.937 UIU/ML = 2821) CBC W/AUTO [id number] 00:00:00 Test Item Value Reference Range Interpretation [...] NUCLEATED RBCS (test code = 0.00 K/UL 64711) CBC W/AUTO [id number] 00:00:00 Test Item Value Reference Range Interpretation [...] NUCLEATED RBCS (test code = 0.00 K/UL 79919) CBC W/AUTO [id number] 00:00:00 Test Item Value Reference Range Interpretation [...] NUCLEATED RBCS (test code = 0.00 K/UL 50579) COMPREHENSIVE METABOLIC [id number] 00:00:00 Test Item Value Reference Range Interpretation Comments GLUCOSE (test code = 2217) 105 MG/DL BUN (test code = 2208) 12 MG/DL CREATININE (test code = 2214) 0.70 MG/DL eGFR (2020 CKD-EPI) (test 111 ML/MIN/1.73 code = 58107) CALC BUN/CREAT (test code = 17 RATIO [...] code = 2219) 17 U/L COMPREHENSIVE METABOLIC [id number] 00:00:00 Test Item Value Reference Range Interpretation Comments GLUCOSE (test code = 2217) 105 MG/DL BUN (test code = 2208) 12 MG/DL CREATININE (test code = 2214) 0.70 MG/DL eGFR (2020 CKD-EPI) (test 111 ML/MIN/1.73 code = 40575) CALC BUN/CREAT (test code = 17 RATIO [...] (test code = 2219) 17 U/L LIPID [id number] 00:00:00 Test Item Value Reference Range Interpretation Comments CHOLESTEROL (test code = 2210) 249 MG/DL TRIGLYCERIDES (test code = 2232) 97 MG/DL HDL CHOLESTEROL (test code = 2220) 70 MG/DL CALC LDL CHOL (test code = 2237) 158 MG/DL RISK RATIO LDL/HDL (test code = 2.26 RATIO 2238) LIPID [id number] 00:00:00 Test Item Value Reference Range Interpretation Comments CHOLESTEROL (test code = 2210) 249 MG/DL TRIGLYCERIDES (test code = 2232) 97 MG/DL HDL CHOLESTEROL (test code = 2220) 70 MG/DL CALC LDL CHOL (test code = 2237) 158 MG/DL RISK RATIO LDL/HDL (test code = 2.26 RATIO 2238) HEMOGLOBIN [id number] 00:00:00 Test Item Value Reference Range Interpretation Comments HEMOGLOBIN A1c (test code = 98711) 5.6 % HEMOGLOBIN [id number] 00:00:00 Test Item Value Reference Range Interpretation Comments HEMOGLOBIN A1c (test code = 77854) 5.6 % HEMOGLOBIN [id number] 00:00:00 Test Item Value Reference Range Interpretation Comments HEMOGLOBIN A1c (test code = 49779) 5.6 % TSH, THIRD [id number] 00:00:00 Test Item Value Reference Range Interpretation Comments TSH, THIRD GENERATION (test code 0.937 UIU/ML = 2821) TSH, THIRD [id number] 00:00:00 Test Item Value Reference Range Interpretation Comments TSH, THIRD GENERATION (test code 0.937 UIU/ML = 2821) TSH, THIRD [id number] 00:00:00 Test Item Value Reference Range Interpretation Comments TSH, THIRD GENERATION (test code 0.937 UIU/ML = 2821) CBC W/AUTO [id number] 00:00:00 Test Item Value Reference Range Interpretation [...] NUCLEATED RBCS (test code = 0.00 K/UL 89557) CBC W/AUTO [id number] 00:00:00 Test Item Value Reference Range Interpretation [...] NUCLEATED RBCS (test code = 0.00 K/UL 85536) CBC W/AUTO [id number] 00:00:00 Test Item Value Reference Range Interpretation [...] NUCLEATED RBCS (test code = 0.00 K/UL 68192) COMPREHENSIVE METABOLIC [id number] 00:00:00 Test Item Value Reference Range Interpretation Comments GLUCOSE (test code = 2217) 105 MG/DL BUN (test code = 2208) 12 MG/DL CREATININE (test code = 2214) 0.70 MG/DL eGFR (2020 CKD-EPI) (test 111 ML/MIN/1.73 code = 58687) CALC BUN/CREAT (test code = 17 RATIO [...] code = 2219) 17 U/L COMPREHENSIVE METABOLIC [id number] 00:00:00 Test Item Value Reference Range Interpretation Comments GLUCOSE (test code = 2217) 105 MG/DL BUN (test code = 2208) 12 MG/DL CREATININE (test code = 2214) 0.70 MG/DL eGFR (2020 CKD-EPI) (test 111 ML/MIN/1.73 code = 65841) CALC BUN/CREAT (test code = 17 RATIO [...] (test code = 2219) 17 U/L LIPID [id number] 00:00:00 Test Item Value Reference Range Interpretation Comments CHOLESTEROL (test code = 2210) 249 MG/DL TRIGLYCERIDES (test code = 2232) 97 MG/DL HDL CHOLESTEROL (test code = 2220) 70 MG/DL CALC LDL CHOL (test code = 2237) 158 MG/DL RISK RATIO LDL/HDL (test code = 2.26 RATIO 2238) LIPID [id number] 00:00:00 Test Item Value Reference Range Interpretation Comments CHOLESTEROL (test code = 2210) 249 MG/DL TRIGLYCERIDES (test code = 2232) 97 MG/DL HDL CHOLESTEROL (test code = 2220) 70 MG/DL CALC LDL CHOL (test code = 2237) 158 MG/DL RISK RATIO LDL/HDL (test code = 2.26 RATIO 2238) HEMOGLOBIN [id number] 00:00:00 Test Item Value Reference Range Interpretation Comments HEMOGLOBIN A1c (test code = 88633) 5.6 % HEMOGLOBIN [id number] 00:00:00 Test Item Value Reference Range Interpretation Comments HEMOGLOBIN A1c (test code = 21735) 5.6 % HEMOGLOBIN [id number] 00:00:00 Test Item Value Reference Range Interpretation Comments HEMOGLOBIN A1c (test code = 49289) 5.6 % TSH, THIRD [id number] 00:00:00 Test Item Value Reference Range Interpretation Comments TSH, THIRD GENERATION (test code 0.937 UIU/ML = 2821) TSH, THIRD [id number] 00:00:00 Test Item Value Reference Range Interpretation Comments TSH, THIRD GENERATION (test code 0.937 UIU/ML = 2821) TSH, THIRD [id number] 00:00:00 Test Item Value Reference Range Interpretation Comments TSH, THIRD GENERATION (test code 0.937 UIU/ML = 2821) CBC W/AUTO [id number] 00:00:00 Test Item Value Reference Range Interpretation [...] NUCLEATED RBCS (test code = 0.00 K/UL 16475) CBC W/AUTO [id number] 00:00:00 Test Item Value Reference Range Interpretation [...] NUCLEATED RBCS (test code = 0.00 K/UL 84110) CBC W/AUTO [id number] 00:00:00 Test Item Value Reference Range Interpretation [...] NUCLEATED RBCS (test code = 0.00 K/UL 78727) CULTURE, [id number] 09:57:25SPECIMEN NUMBER: [id number] CULTURE, URINE SPECIMEN NUMBER: [id number] SPECIMEN COMMENT: URINE SOURCE: URINE REPORT STATUS: FINAL FINAL REPORT: 06/15/2022 10-50,000 CFU/ML UROGENITAL OLEKSANDR PRESENT NO COM MON PATHOGENS UNLESS OTHERWISE INDICATED, ALL TESTING PERFORMED [facility] [address] [place] [address] WIRELESS WATCHER: ODILON SUMMERS M.D. [place] NUMBER [id number]. [id number] CULTURE, [id number] 00:00:00 Test Item Value Reference Range Interpretation Comments CULTURE, URINE (test SPECIMEN NUMBER: code = 13780) [id number] CULTURE, [id number] 00:00:00 Test Item Value Reference Range Interpretation Comments CULTURE, URINE (test SPECIMEN NUMBER: code = 50123) [id number] CULTURE, [id number] 00:00:00 Test Item Value Reference Range Interpretation Comments CULTURE, URINE (test SPECIMEN NUMBER: code = 89297) [id number] CULTURE, [id number] 00:00:00 Test Item Value Reference Range Interpretation Comments CULTURE, URINE (test SPECIMEN NUMBER: code = 35192) [id number] CULTURE, [id number] 00:00:00 Test Item Value Reference Range Interpretation Comments CULTURE, URINE (test SPECIMEN NUMBER: code = 09066) [id number] CULTURE, [id number] 00:00:00 Test Item Value Reference Range Interpretation Comments CULTURE, URINE (test SPECIMEN NUMBER: code = 42044) [id number] CULTURE, [id number] 00:00:00 Test Item Value Reference Range Interpretation Comments CULTURE, URINE (test SPECIMEN NUMBER: code = 52445) [id number] CULTURE, [id number] 00:00:00 Test Item Value Reference Range Interpretation Comments CULTURE, URINE (test SPECIMEN NUMBER: code = 60181) [id number] CULTURE, [id number] 00:00:00 Test Item Value Reference Range Interpretation Comments CULTURE, URINE (test SPECIMEN NUMBER: code = 75009) [id number] CULTURE, [id number] 00:00:00 Test Item Value Reference Range Interpretation Comments CULTURE, URINE (test SPECIMEN NUMBER: code = 08779) [id number] CULTURE, [id number] 00:00:00 Test Item Value Reference Range Interpretation Comments CULTURE, URINE (test SPECIMEN NUMBER: code = 97519) [id number] CULTURE, [id number] 00:00:00 Test Item Value Reference Range Interpretation Comments CULTURE, URINE (test SPECIMEN NUMBER: code = 55571) [id number] CULTURE, [id number] 00:00:00 Test Item Value Reference Range Interpretation Comments CULTURE, URINE (test SPECIMEN NUMBER: code = 41927) [id number] CULTURE, [id number] 00:00:00 Test Item Value Reference Range Interpretation Comments CULTURE, URINE (test SPECIMEN NUMBER: code = 18508) [id number] VAGINAL PATHOGENS DNA [id number] 08:25:39 Test Item Value Reference Range Interpretation Comments RAMESH SPECIES (test NEGATIVE NEGATIVE code = ) G. VAGINALIS (test POSITIVE NEGATIVE A code = 47773) T. VAGINALIS (test NEGATIVE NEGATIVE Analysis performed code = 10163) beyond manufac turer designated stab ility. Correlate with clinical history and con worship leader retesting as cl inically indicated. Resu lts reviewed by the Microbiology de partment for accuracy pr ior to reporting. VAGINAL PATHOGENS DNA [id number] 00:00:00 Test Item Value Reference Range Interpretation Comments RAMESH SPECIES (test code = ) NEGATIVE G. VAGINALIS (test code = 13734) POSITIVE T. VAGINALIS (test code = 55755) NEGATIVE VAGINAL PATHOGENS DNA [id number] 00:00:00 Test Item Value Reference Range Interpretation Comments RAMESH SPECIES (test code = 21388) NEGATIVE G. VAGINALIS (test code = 89160) POSITIVE T. VAGINALIS (test code = 01772) NEGATIVE VAGINAL PATHOGENS DNA [id number] 00:00:00 Test Item Value Reference Range Interpretation Comments RAMESH SPECIES (test code = 60032) NEGATIVE G. VAGINALIS (test code = 24120) POSITIVE T. VAGINALIS (test code = 10871) NEGATIVE VAGINAL PATHOGENS DNA [id number] 00:00:00 Test Item Value Reference Range Interpretation Comments RAMESH SPECIES (test code = ) NEGATIVE G. VAGINALIS (test code = 35651) POSITIVE T. VAGINALIS (test code = 69387) NEGATIVE VAGINAL PATHOGENS DNA [id number] 00:00:00 Test Item Value Reference Range Interpretation Comments RAMESH SPECIES (test code = ) NEGATIVE G. VAGINALIS (test code = 83343) POSITIVE T. VAGINALIS (test code = 11483) NEGATIVE VAGINAL PATHOGENS DNA [id number] 00:00:00 Test Item Value Reference Range Interpretation Comments RAMESH SPECIES (test code = ) NEGATIVE G. VAGINALIS (test code = 88314) POSITIVE T. VAGINALIS (test code = 07863) NEGATIVE VAGINAL PATHOGENS DNA [id number] 00:00:00 Test Item Value Reference Range Interpretation Comments RAMESH SPECIES (test code = 14346) NEGATIVE G. VAGINALIS (test code = 26697) POSITIVE T. VAGINALIS (test code = 57572) NEGATIVE VAGINAL PATHOGENS DNA [id number] 00:00:00 Test Item Value Reference Range Interpretation Comments RAMESH SPECIES (test code = 91077) NEGATIVE G. VAGINALIS (test code = 90481) POSITIVE T. VAGINALIS (test code = 00425) NEGATIVE VAGINAL PATHOGENS DNA [id number] 00:00:00 Test Item Value Reference Range Interpretation Comments RAMESH SPECIES (test code = 04234) NEGATIVE G. VAGINALIS (test code = 26876) POSITIVE T. VAGINALIS (test code = 18385) NEGATIVE VAGINAL PATHOGENS DNA [id number] 00:00:00 Test Item Value Reference Range Interpretation Comments RAMESH SPECIES (test code = ) NEGATIVE G. VAGINALIS (test code = 68313) POSITIVE T. VAGINALIS (test code = 86492) NEGATIVE VAGINAL PATHOGENS DNA [id number] 00:00:00 Test Item Value Reference Range Interpretation Comments RAMESH SPECIES (test code = 54683) NEGATIVE G. VAGINALIS (test code = 35606) POSITIVE T. VAGINALIS (test code = 57014) NEGATIVE VAGINAL PATHOGENS DNA [id number] 00:00:00 Test Item Value Reference Range Interpretation Comments RAMESH SPECIES (test code = 83422) NEGATIVE G. VAGINALIS (test code = 86842) POSITIVE T. VAGINALIS (test code = 87264) NEGATIVE VAGINAL PATHOGENS DNA [id number] 00:00:00 Test Item Value Reference Range Interpretation Comments RAMESH SPECIES (test code = 14909) NEGATIVE G. VAGINALIS (test code = 58271) POSITIVE T. VAGINALIS (test code = 53058) NEGATIVE VAGINAL PATHOGENS DNA [id number] 00:00:00 Test Item Value Reference Range Interpretation Comments RAMESH SPECIES (test code = 21033) NEGATIVE G. VAGINALIS (test code = 30680) POSITIVE T. VAGINALIS (test code = 05096) NEGATIVE VAGINAL PATHOGENS DNA [id number] 00:00:00 Test Item Value Reference Range Interpretation Comments RAMESH SPECIES (test code = 50008) NEGATIVE G. VAGINALIS (test code = 62942) POSITIVE T. VAGINALIS (test code = 36377) NEGATIVE VAGINAL PATHOGENS DNA [id number] 00:00:00 Test Item Value Reference Range Interpretation Comments RAMESH SPECIES (test code = 50174) NEGATIVE G. VAGINALIS (test code = 20855) POSITIVE T. VAGINALIS (test code = 74749) NEGATIVE VAGINAL PATHOGENS DNA [id number] 00:00:00 Test Item Value Reference Range Interpretation Comments RAMESH SPECIES (test code = 95851) NEGATIVE G. VAGINALIS (test code = 16599) POSITIVE T. VAGINALIS (test code = 69353) NEGATIVE VAGINAL PATHOGENS DNA [id number] 00:00:00 Test Item Value Reference Range Interpretation Comments RAMESH SPECIES (test code = 16242) NEGATIVE G. VAGINALIS (test code = 56127) POSITIVE T. VAGINALIS (test code = 36830) NEGATIVE VAGINAL PATHOGENS DNA [id number] 00:00:00 Test Item Value Reference Range Interpretation Comments RAMESH SPECIES (test code = ) NEGATIVE G. VAGINALIS (test code = 53023) POSITIVE T. VAGINALIS (test code = 52164) NEGATIVE VAGINAL PATHOGENS DNA [id number] 00:00:00 Test Item Value Reference Range Interpretation Comments RAMESH SPECIES (test code = ) NEGATIVE G. VAGINALIS (test code = 57511) POSITIVE T. VAGINALIS (test code = 42890) NEGATIVE VAGINAL PATHOGENS DNA [id number] 00:00:00 Test Item Value Reference Range Interpretation Comments RAMESH SPECIES (test code = ) NEGATIVE G. VAGINALIS (test code = 54421) POSITIVE T. VAGINALIS (test code = 78583) NEGATIVE HIV 1/2 4TH GEN, RFLX [id number] 00:02:34 Test Item Value Reference Range Interpretation Comments HIV 1/2 4TH GEN, RFLX CONF (test NON-REACTIVE NON-REACTIVE code = 3514) HEPATITIS PANEL, [id number] 00:02:34 Test Item Value Reference Range Interpretation [...] HEPATITIS B: (test serology consistent code = 27361) with immunity to hepatitis Bfrom previous hepati tis B vaccination. INTERPRETATION (NOTE) Hepatitis C HEPATITIS C: (test serology shows no code = 24773) evidence of ex posure to hepatitisC v irus at this time. I t can take up to 12 m onths after exposure tothe hepatitis C vir us for antibodies to become detectab le in the blood in ce rtain patients. UNLES S OTHERWISE INDIC ATED, ALL TESTING PERFORMED [facility] [place]. [address] [facility] [place] [address] [facility] DIRECTOR: ODILON SUMMERS M.D. MARYURI NUMBER [id number] [facility] [place]. [id number] HEPATITIS PROFILE (A,B,C)2022-03-22 00:00:00 Test Item Value [...] INTERPRETATION HEPATITIS B: (NOTE) (test code = 15992) INTERPRETATION HEPATITIS C: (NOTE) (test code = 15410) HEPATITIS PROFILE (A,B,C)2022-03-22 00:00:00 Test Item Value [...] INTERPRETATION HEPATITIS B: (NOTE) (test code = 22775) INTERPRETATION HEPATITIS C: (NOTE) (test code = 42438) HIV 1/2 4TH GEN, RFLX CONF [ADDED]2022-03-22 [...] INTERPRETATION HEPATITIS B: (NOTE) (test code = 24855) INTERPRETATION HEPATITIS C: (NOTE) (test code = 39633) HEPATITIS PROFILE (A,B,C)2022-03-22 00:00:00 Test Item Value [...] INTERPRETATION HEPATITIS B: (NOTE) (test code = 45213) INTERPRETATION HEPATITIS C: (NOTE) (test code = 06238) HIV 1/2 4TH GEN, RFLX CONF [ADDED]2022-03-22 [...] INTERPRETATION HEPATITIS B: (NOTE) (test code = 26577) INTERPRETATION HEPATITIS C: (NOTE) (test code = 51919) HEPATITIS PROFILE (A,B,C)2022-03-22 00:00:00 Test Item Value [...] INTERPRETATION HEPATITIS B: (NOTE) (test code = 07552) INTERPRETATION HEPATITIS C: (NOTE) (test code = 66369) HIV 1/2 4TH GEN, RFLX CONF [ADDED]2022-03-22 [...] INTERPRETATION HEPATITIS B: (NOTE) (test code = 72693) INTERPRETATION HEPATITIS C: (NOTE) (test code = 12319) HEPATITIS PROFILE (A,B,C)2022-03-22 00:00:00 Test Item Value [...] INTERPRETATION HEPATITIS B: (NOTE) (test code = 70570) INTERPRETATION HEPATITIS C: (NOTE) (test code = 65545) HIV 1/2 4TH GEN, RFLX CONF [ADDED]2022-03-22 [...] INTERPRETATION HEPATITIS B: (NOTE) (test code = 86390) INTERPRETATION HEPATITIS C: (NOTE) (test code = 37471) HEPATITIS PROFILE (A,B,C)2022-03-22 00:00:00 Test Item Value [...] INTERPRETATION HEPATITIS B: (NOTE) (test code = 26446) INTERPRETATION HEPATITIS C: (NOTE) (test code = 09984) HIV 1/2 4TH GEN, RFLX CONF [ADDED]2022-03-22 [...] INTERPRETATION HEPATITIS B: (NOTE) (test code = 32936) INTERPRETATION HEPATITIS C: (NOTE) (test code = 17647) HEPATITIS PROFILE (A,B,C)2022-03-22 00:00:00 Test Item Value [...] INTERPRETATION HEPATITIS B: (NOTE) (test code = 16268) INTERPRETATION HEPATITIS C: (NOTE) (test code = 74717) HIV 1/2 4TH GEN, RFLX CONF [ADDED]2022-03-22 [...] INTERPRETATION HEPATITIS B: (NOTE) (test code = 51578) INTERPRETATION HEPATITIS C: (NOTE) (test code = 50839) HEPATITIS PROFILE (A,B,C)2022-03-22 00:00:00 Test Item Value [...] INTERPRETATION HEPATITIS B: (NOTE) (test code = 33989) INTERPRETATION HEPATITIS C: (NOTE) (test code = 26095) HIV 1/2 4TH GEN, RFLX CONF [ADDED]2022-03-22 [...] INTERPRETATION HEPATITIS B: (NOTE) (test code = 53362) INTERPRETATION HEPATITIS C: (NOTE) (test code = 31204) HEPATITIS PROFILE (A,B,C)2022-03-22 00:00:00 Test Item Value [...] INTERPRETATION HEPATITIS B: (NOTE) (test code = 18641) INTERPRETATION HEPATITIS C: (NOTE) (test code = 23165) HIV 1/2 4TH GEN, RFLX CONF [ADDED]2022-03-22 [...] INTERPRETATION HEPATITIS B: (NOTE) (test code = 28030) INTERPRETATION HEPATITIS C: (NOTE) (test code = 49320) HIV 1/2 4TH GEN, RFLX CONF [ADDED]2022-03-22 [...] INTERPRETATION HEPATITIS B: (NOTE) (test code = 00700) INTERPRETATION HEPATITIS C: (NOTE) (test code = 88427) HEPATITIS PROFILE (A,B,C)2022-03-22 00:00:00 Test Item Value [...] INTERPRETATION HEPATITIS B: (NOTE) (test code = 21702) INTERPRETATION HEPATITIS C: (NOTE) (test code = 77095) HIV 1/2 4TH GEN, RFLX CONF [ADDED]2022-03-22 [...] INTERPRETATION HEPATITIS B: (NOTE) (test code = 02159) INTERPRETATION HEPATITIS C: (NOTE) (test code = 69536) HEPATITIS PROFILE (A,B,C)2022-03-22 00:00:00 Test Item Value [...] INTERPRETATION HEPATITIS B: (NOTE) (test code = 75332) INTERPRETATION HEPATITIS C: (NOTE) (test code = 96242) HIV 1/2 4TH GEN, RFLX CONF [ADDED]2022-03-22 00:00:00 Test Item Value Reference Range Interpretation Comments HIV 1/2 4TH GEN, RFLX CONF (test NON-REACTIVE code = 3514) HIV 1/2 4TH GEN, RFLX CONF [ADDED]2022-03-22 00:00:00 Test Item Value Reference Range Interpretation Comments HIV 1/2 4TH GEN, RFLX CONF (test NON-REACTIVE code = 3514) [id number] 22:35:53 Test Item Value Reference Range Interpretation Comments RPR RESULT (test code = NON-REACTIVE NON-REACTIVE 3501) RPR TITER (test code = 3500) NOT INDIC. TITER NOT INDIC. [id number] 00:00:00 Test Item Value Reference Range Interpretation Comments RPR RESULT (test code = NON-REACTIVE 3501) RPR TITER (test code = 3500) NOT INDIC. TITER [id number] 00:00:00 Test Item Value Reference Range Interpretation Comments RPR RESULT (test code = NON-REACTIVE 3501) RPR TITER (test code = 3500) NOT INDIC. TITER [id number] 00:00:00 Test Item Value Reference Range Interpretation Comments RPR RESULT (test code = NON-REACTIVE 3501) RPR TITER (test code = 3500) NOT INDIC. TITER [id number] 00:00:00 Test Item Value Reference Range Interpretation Comments RPR RESULT (test code = NON-REACTIVE 3501) RPR TITER (test code = 3500) NOT INDIC. TITER [id number] 00:00:00 Test Item Value Reference Range Interpretation Comments RPR RESULT (test code = NON-REACTIVE 3501) RPR TITER (test code = 3500) NOT INDIC. TITER [id number] 00:00:00 Test Item Value Reference Range Interpretation Comments RPR RESULT (test code = NON-REACTIVE 3501) RPR TITER (test code = 3500) NOT INDIC. TITER [id number] 00:00:00 Test Item Value Reference Range Interpretation Comments RPR RESULT (test code = NON-REACTIVE 3501) RPR TITER (test code = 3500) NOT INDIC. TITER [id number] 00:00:00 Test Item Value Reference Range Interpretation Comments RPR RESULT (test code = NON-REACTIVE 3501) RPR TITER (test code = 3500) NOT INDIC. TITER [id number] 00:00:00 Test Item Value Reference Range Interpretation Comments RPR RESULT (test code = NON-REACTIVE 3501) RPR TITER (test code = 3500) NOT INDIC. TITER [id number] 00:00:00 Test Item Value Reference Range Interpretation Comments RPR RESULT (test code = NON-REACTIVE 3501) RPR TITER (test code = 3500) NOT INDIC. TITER [id number] 00:00:00 Test Item Value Reference Range Interpretation Comments RPR RESULT (test code = NON-REACTIVE 3501) RPR TITER (test code = 3500) NOT INDIC. TITER [id number] 00:00:00 Test Item Value Reference Range Interpretation Comments RPR RESULT (test code = NON-REACTIVE 3501) RPR TITER (test code = 3500) NOT INDIC. TITER [id number] 00:00:00 Test Item Value Reference Range Interpretation Comments RPR RESULT (test code = NON-REACTIVE 3501) RPR TITER (test code = 3500) NOT INDIC. TITER [id number] 00:00:00 Test Item Value Reference Range Interpretation Comments RPR RESULT (test code = NON-REACTIVE 3501) RPR TITER (test code = 3500) NOT INDIC. TITER [id number] 00:00:00 Test Item Value Reference Range Interpretation Comments RPR RESULT (test code = NON-REACTIVE 3501) RPR TITER (test code = 3500) NOT INDIC. TITER [id number] 00:00:00 Test Item Value Reference Range Interpretation Comments RPR RESULT (test code = NON-REACTIVE 3501) RPR TITER (test code = 3500) NOT INDIC. TITER [id number] 00:00:00 Test Item Value Reference Range Interpretation Comments RPR RESULT (test code = NON-REACTIVE 3501) RPR TITER (test code = 3500) NOT INDIC. TITER [id number] 00:00:00 Test Item Value Reference Range Interpretation Comments RPR RESULT (test code = NON-REACTIVE 3501) RPR TITER (test code = 3500) NOT INDIC. TITER [id number] 00:00:00 Test Item Value Reference Range Interpretation Comments RPR RESULT (test code = NON-REACTIVE 3501) RPR TITER (test code = 3500) NOT INDIC. TITER [id number] 00:00:00 Test Item Value Reference Range Interpretation Comments RPR RESULT (test code = NON-REACTIVE 3501) RPR TITER (test code = 3500) NOT INDIC. TITER [id number] 00:00:00 Test Item Value Reference Range Interpretation Comments RPR RESULT (test code = NON-REACTIVE 3501) RPR TITER (test code = 3500) NOT INDIC. TITER [id number] 00:00:00 Test Item Value Reference Range Interpretation Comments RPR RESULT (test code = NON-REACTIVE 3501) RPR TITER (test code = 3500) NOT INDIC. TITER [id number] 00:00:00 Test Item Value Reference Range Interpretation Comments RPR RESULT (test code = NON-REACTIVE 3501) RPR TITER (test code = 3500) NOT INDIC. TITER [id number] 00:00:00 Test Item Value Reference Range Interpretation Comments RPR RESULT (test code = NON-REACTIVE 3501) RPR TITER (test code = 3500) NOT INDIC. TITER [id number] 00:00:00 Test Item Value Reference Range Interpretation Comments RPR RESULT (test code = NON-REACTIVE 3501) RPR TITER (test code = 3500) NOT INDIC. TITER [id number] 00:00:00 Test Item Value Reference Range Interpretation Comments RPR RESULT (test code = NON-REACTIVE 3501) RPR TITER (test code = 3500) NOT INDIC. TITER [id number] 00:00:00 Test Item Value Reference Range Interpretation Comments RPR RESULT (test code = NON-REACTIVE 3501) RPR TITER (test code = 3500) NOT INDIC. TITER [id number] 00:00:00 Test Item Value Reference Range Interpretation Comments RPR RESULT (test code = NON-REACTIVE 3501) RPR TITER (test code = 3500) NOT INDIC. TITER [id number] 00:00:00 Test Item Value Reference Range Interpretation Comments RPR RESULT (test code = NON-REACTIVE 3501) RPR TITER (test code = 3500) NOT INDIC. TITER [id number] 00:00:00 Test Item Value Reference Range Interpretation Comments RPR RESULT (test code = NON-REACTIVE 3501) RPR TITER (test code = 3500) NOT INDIC. TITER [id number] 00:00:00 Test Item Value Reference Range Interpretation Comments RPR RESULT (test code = NON-REACTIVE 3501) RPR TITER (test code = 3500) NOT INDIC. TITER [id number] 00:00:00 Test Item Value Reference Range Interpretation Comments RPR RESULT (test code = NON-REACTIVE 3501) RPR TITER (test code = 3500) NOT INDIC. TITER SARS-CoV-2 (COVID-19), RT-[id number] 17:22:58 Test Item Value Reference Interpretation Comments Range SARS-CoV-2 NEGATIVE SEE NOTE SARS-CoV-2 RNA NOT INTERPRETATION DETECTEDNegat alexander (test code = 84879) results do not preclude SARS-C oV-2 infection [...] (test code = [place]OPHARY[place]: [place] [address]) Steve Cecile Melba l-Time RT-PCR. The exp [...] provided by met hod given in report:[email or web address]:// [email or web address] Alternatively, see downloadable PD F fact sheet at:[email or web address]://[email or web address] UNLESS OTHERWIS E INDICATED, ALL TESTING PERFORMED [facility], [place]. [address] [place] [address], [place] [address] ESTEFANY KAUR DIRECTOR: ODILON SUMMERS M.D. CLIA NUMBER [id number] ACCR[facility] N O. [id number] SARS-CoV-2 (COVID-19) by RT-PCR (HIGH RISK)2021-10-10 00:00:00 Test Item Value Reference Range Interpretation Comments SARS-CoV-2 INTERPRETATION NEGATIVE (test code = 68724) SOURCE (test code = 60412) NASOPHARYNGEAL SARS-CoV-2 (COVID-19) by RT-PCR (HIGH RISK)2021-10-10 00:00:00 Test Item Value Reference Range Interpretation Comments SARS-CoV-2 INTERPRETATION NEGATIVE (test code = 35147) SOURCE (test code = 84880) NASOPHARYNGEAL SARS-CoV-2 (COVID-19) by RT-PCR (HIGH RISK)2021-10-10 00:00:00 Test Item Value Reference Range Interpretation Comments SARS-CoV-2 INTERPRETATION NEGATIVE (test code = 73794) SOURCE (test code = 02850) NASOPHARYNGEAL SARS-CoV-2 (COVID-19) by RT-PCR (HIGH RISK)2021-10-10 00:00:00 Test Item Value Reference Range Interpretation Comments SARS-CoV-2 INTERPRETATION NEGATIVE (test code = 64375) SOURCE (test code = 80750) NASOPHARYNGEAL SARS-CoV-2 (COVID-19) by RT-PCR (HIGH RISK)2021-10-10 00:00:00 Test Item Value Reference Range Interpretation Comments SARS-CoV-2 INTERPRETATION NEGATIVE (test code = 81543) SOURCE (test code = 96360) NASOPHARYNGEAL SARS-CoV-2 (COVID-19) by RT-PCR (HIGH RISK)2021-10-10 00:00:00 Test Item Value Reference Range Interpretation Comments SARS-CoV-2 INTERPRETATION NEGATIVE (test code = 31969) SOURCE (test code = 49781) NASOPHARYNGEAL SARS-CoV-2 (COVID-19) by RT-PCR (HIGH RISK)2021-10-10 00:00:00 Test Item Value Reference Range Interpretation Comments SARS-CoV-2 INTERPRETATION NEGATIVE (test code = 81333) SOURCE (test code = 36733) NASOPHARYNGEAL SARS-CoV-2 (COVID-19) by RT-PCR (HIGH RISK)2021-10-10 00:00:00 Test Item Value Reference Range Interpretation Comments SARS-CoV-2 INTERPRETATION NEGATIVE (test code = 14134) SOURCE (test code = 85353) NASOPHARYNGEAL SARS-CoV-2 (COVID-19) by RT-PCR (HIGH RISK)2021-10-10 00:00:00 Test Item Value Reference Range Interpretation Comments SARS-CoV-2 INTERPRETATION NEGATIVE (test code = 72540) SOURCE (test code = 28742) NASOPHARYNGEAL SARS-CoV-2 (COVID-19) by RT-PCR (HIGH RISK)2021-10-10 00:00:00 Test Item Value Reference Range Interpretation Comments SARS-CoV-2 INTERPRETATION NEGATIVE (test code = 85302) SOURCE (test code = 89601) NASOPHARYNGEAL SARS-CoV-2 (COVID-19) by RT-PCR (HIGH RISK)2021-10-10 00:00:00 Test Item Value Reference Range Interpretation Comments SARS-CoV-2 INTERPRETATION NEGATIVE (test code = 17444) SOURCE (test code = 00941) NASOPHARYNGEAL SARS-CoV-2 (COVID-19) by RT-PCR (HIGH RISK)2021-10-10 00:00:00 Test Item Value Reference Range Interpretation Comments SARS-CoV-2 INTERPRETATION NEGATIVE (test code = 62206) SOURCE (test code = 37655) NASOPHARYNGEAL SARS-CoV-2 (COVID-19) by RT-PCR (HIGH RISK)2021-10-10 00:00:00 Test Item Value Reference Range Interpretation Comments SARS-CoV-2 INTERPRETATION NEGATIVE (test code = 48054) SOURCE (test code = 30884) NASOPHARYNGEAL SARS-CoV-2 (COVID-19) by RT-PCR (HIGH RISK)2021-10-10 00:00:00 Test Item Value Reference Range Interpretation Comments SARS-CoV-2 INTERPRETATION NEGATIVE (test code = 69266) SOURCE (test code = 70290) NASOPHARYNGEAL SARS-CoV-2 (COVID-19) by RT-PCR (HIGH RISK)2021-10-10 00:00:00 Test Item Value Reference Range Interpretation Comments SARS-CoV-2 INTERPRETATION NEGATIVE (test code = 25092) SOURCE (test code = 51982) NASOPHARYNGEAL SARS-CoV-2 (COVID-19) by RT-PCR (HIGH RISK)2021-10-10 00:00:00 Test Item Value Reference Range Interpretation Comments SARS-CoV-2 INTERPRETATION NEGATIVE (test code = 96217) SOURCE (test code = 84524) NASOPHARYNGEAL SARS-CoV-2 (COVID-19) by RT-PCR (HIGH RISK)2021-10-10 00:00:00 Test Item Value Reference Range Interpretation Comments SARS-CoV-2 INTERPRETATION NEGATIVE (test code = 60944) SOURCE (test code = 39240) NASOPHARYNGEAL SARS-CoV-2 (COVID-19) by RT-PCR (HIGH RISK)2021-10-10 00:00:00 Test Item Value Reference Range Interpretation Comments SARS-CoV-2 INTERPRETATION NEGATIVE (test code = 62311) SOURCE (test code = 91115) NASOPHARYNGEAL SARS-CoV-2 (COVID-19) by RT-PCR (HIGH RISK)2021-10-10 00:00:00 Test Item Value Reference Range Interpretation Comments SARS-CoV-2 INTERPRETATION NEGATIVE (test code = 16404) SOURCE (test code = 61135) NASOPHARYNGEAL SARS-CoV-2 (COVID-19) by RT-PCR (HIGH RISK)2021-10-10 00:00:00 Test Item Value Reference Range Interpretation Comments SARS-CoV-2 INTERPRETATION NEGATIVE (test code = 98889) SOURCE (test code = 24474) NASOPHARYNGEAL SARS-CoV-2 (COVID-19) by RT-PCR (HIGH RISK)2021-10-10 00:00:00 Test Item Value Reference Range Interpretation Comments SARS-CoV-2 INTERPRETATION NEGATIVE (test code = 64662) SOURCE (test code = 34338) NASOPHARYNGEAL CHLAMYDIA, AMPLIFIED, [id number] 00:00:00 Test Item Value Reference Range Interpretation Comments CHLAMYDIA, NAAT (test code = 48723) NEGATIVE CHLAMYDIA, AMPLIFIED, [id number] 00:00:00 Test Item Value Reference Range Interpretation Comments CHLAMYDIA, NAAT (test code = 40843) NEGATIVE CHLAMYDIA, AMPLIFIED, [id number] 00:00:00 Test Item Value Reference Range Interpretation Comments CHLAMYDIA, NAAT (test code = 13069) NEGATIVE CHLAMYDIA, AMPLIFIED, [id number] 00:00:00 Test Item Value Reference Range Interpretation Comments CHLAMYDIA, NAAT (test code = 44249) NEGATIVE GC, AMPLIFIED, [id number] 00:00:00 Test Item Value Reference Range Interpretation Comments GONORRHEA, NAAT (test code = 08999) NEGATIVE GC, AMPLIFIED, [id number] 00:00:00 Test Item Value Reference Range Interpretation Comments GONORRHEA, NAAT (test code = 14054) NEGATIVE GC, AMPLIFIED, [id number] 00:00:00 Test Item Value Reference Range Interpretation Comments GONORRHEA, NAAT (test code = 95341) NEGATIVE GC, AMPLIFIED, [id number] 00:00:00 Test Item Value Reference Range Interpretation Comments GONORRHEA, NAAT (test code = 33569) NEGATIVE HIV AB/AG COMBO RFLX [id number] 00:00:00 Test Item Value Reference Range Interpretation Comments HIV 1/2 4TH GEN, RFLX CONF (test NON-REACTIVE code = 3514) HIV AB/AG COMBO RFLX [id number] 00:00:00 Test Item Value Reference Range Interpretation Comments HIV 1/2 4TH GEN, RFLX CONF (test NON-REACTIVE code = 3514) [id number] 00:00:00 Test Item Value Reference Range Interpretation Comments RPR RESULT (test code = NON-REACTIVE 3501) RPR TITER (test code = 3500) NOT INDIC. TITER [id number] 00:00:00 Test Item Value Reference Range Interpretation Comments RPR RESULT (test code = NON-REACTIVE 3501) RPR TITER (test code = 3500) NOT INDIC. TITER [id number] 00:00:00 Test Item Value Reference Range Interpretation Comments RPR RESULT (test code = NON-REACTIVE 3501) RPR TITER (test code = 3500) NOT INDIC. TITER ACUTE HEPATITIS [id number] 00:00:00 Test Item Value Reference Range Interpretation Comments HEPATITIS A IgM (test code = NON-REACTIVE 76237) HEPATITIS B CORE IgM (test code NON-REACTIVE = 4644) HEPATITIS B SURF AG (test code = NON-REACTIVE 2739) HEPATITIS C ANTIBODY (test code NON-REACTIVE = 4675) INTERPRETATION HEPATITIS A: (NOTE) (test code = 2552) INTERPRETATION HEPATITIS B: (NOTE) (test code = 64294) INTERPRETATION HEPATITIS C: (NOTE) (test code = 98411) ACUTE HEPATITIS [id number] 00:00:00 Test Item Value Reference Range Interpretation Comments HEPATITIS A IgM (test code = NON-REACTIVE 55606) HEPATITIS B CORE IgM (test code NON-REACTIVE = 4644) HEPATITIS B SURF AG (test code = NON-REACTIVE 2739) HEPATITIS C ANTIBODY (test code NON-REACTIVE = 4675) INTERPRETATION HEPATITIS A: (NOTE) (test code = 2552) INTERPRETATION HEPATITIS B: (NOTE) (test code = 50487) INTERPRETATION HEPATITIS C: (NOTE) (test code = 16931) CHLAMYDIA, AMPLIFIED, [id number] 00:00:00 Test Item Value Reference Range Interpretation Comments CHLAMYDIA, NAAT (test code = 26561) NEGATIVE CHLAMYDIA, AMPLIFIED, [id number] 00:00:00 Test Item Value Reference Range Interpretation Comments CHLAMYDIA, NAAT (test code = 03306) NEGATIVE CHLAMYDIA, AMPLIFIED, [id number] 00:00:00 Test Item Value Reference Range Interpretation Comments CHLAMYDIA, NAAT (test code = 54127) NEGATIVE CHLAMYDIA, AMPLIFIED, [id number] 00:00:00 Test Item Value Reference Range Interpretation Comments CHLAMYDIA, NAAT (test code = 99728) NEGATIVE GC, AMPLIFIED, [id number] 00:00:00 Test Item Value Reference Range Interpretation Comments GONORRHEA, NAAT (test code = 84782) NEGATIVE GC, AMPLIFIED, [id number] 00:00:00 Test Item Value Reference Range Interpretation Comments GONORRHEA, NAAT (test code = 28571) NEGATIVE GC, AMPLIFIED, [id number] 00:00:00 Test Item Value Reference Range Interpretation Comments GONORRHEA, NAAT (test code = 75986) NEGATIVE GC, AMPLIFIED, [id number] 00:00:00 Test Item Value Reference Range Interpretation Comments GONORRHEA, NAAT (test code = 92879) NEGATIVE HIV AB/AG COMBO RFLX [id number] 00:00:00 Test Item Value Reference Range Interpretation Comments HIV 1/2 4TH GEN, RFLX CONF (test NON-REACTIVE code = 3514) HIV AB/AG COMBO RFLX [id number] 00:00:00 Test Item Value Reference Range Interpretation Comments HIV 1/2 4TH GEN, RFLX CONF (test NON-REACTIVE code = 3514) [id number] 00:00:00 Test Item Value Reference Range Interpretation Comments RPR RESULT (test code = NON-REACTIVE 3501) RPR TITER (test code = 3500) NOT INDIC. TITER [id number] 00:00:00 Test Item Value Reference Range Interpretation Comments RPR RESULT (test code = NON-REACTIVE 3501) RPR TITER (test code = 3500) NOT INDIC. TITER [id number] 00:00:00 Test Item Value Reference Range Interpretation Comments RPR RESULT (test code = NON-REACTIVE 3501) RPR TITER (test code = 3500) NOT INDIC. TITER ACUTE HEPATITIS [id number] 00:00:00 Test Item Value Reference Range Interpretation Comments HEPATITIS A IgM (test code = NON-REACTIVE 63098) HEPATITIS B CORE IgM (test code NON-REACTIVE = 4644) HEPATITIS B SURF AG (test code = NON-REACTIVE 2739) HEPATITIS C ANTIBODY (test code NON-REACTIVE = 4675) INTERPRETATION HEPATITIS A: (NOTE) (test code = 2552) INTERPRETATION HEPATITIS B: (NOTE) (test code = 68595) INTERPRETATION HEPATITIS C: (NOTE) (test code = 35565) ACUTE HEPATITIS [id number] 00:00:00 Test Item Value Reference Range Interpretation Comments HEPATITIS A IgM (test code = NON-REACTIVE 52394) HEPATITIS B CORE IgM (test code NON-REACTIVE = 4644) HEPATITIS B SURF AG (test code = NON-REACTIVE 2739) HEPATITIS C ANTIBODY (test code NON-REACTIVE = 4675) INTERPRETATION HEPATITIS A: (NOTE) (test code = 2552) INTERPRETATION HEPATITIS B: (NOTE) (test code = 64239) INTERPRETATION HEPATITIS C: (NOTE) (test code = 24467) CHLAMYDIA, AMPLIFIED, [id number] 00:00:00 Test Item Value Reference Range Interpretation Comments CHLAMYDIA, NAAT (test code = 09718) NEGATIVE CHLAMYDIA, AMPLIFIED, [id number] 00:00:00 Test Item Value Reference Range Interpretation Comments CHLAMYDIA, NAAT (test code = 31427) NEGATIVE CHLAMYDIA, AMPLIFIED, [id number] 00:00:00 Test Item Value Reference Range Interpretation Comments CHLAMYDIA, NAAT (test code = 12809) NEGATIVE CHLAMYDIA, AMPLIFIED, [id number] 00:00:00 Test Item Value Reference Range Interpretation Comments CHLAMYDIA, NAAT (test code = 58055) NEGATIVE GC, AMPLIFIED, [id number] 00:00:00 Test Item Value Reference Range Interpretation Comments GONORRHEA, NAAT (test code = 41228) NEGATIVE GC, AMPLIFIED, [id number] 00:00:00 Test Item Value Reference Range Interpretation Comments GONORRHEA, NAAT (test code = 86510) NEGATIVE GC, AMPLIFIED, [id number] 00:00:00 Test Item Value Reference Range Interpretation Comments GONORRHEA, NAAT (test code = 53318) NEGATIVE GC, AMPLIFIED, [id number] 00:00:00 Test Item Value Reference Range Interpretation Comments GONORRHEA, NAAT (test code = 56046) NEGATIVE HIV AB/AG COMBO RFLX [id number] 00:00:00 Test Item Value Reference Range Interpretation Comments HIV 1/2 4TH GEN, RFLX CONF (test NON-REACTIVE code = 3514) HIV AB/AG COMBO RFLX [id number] 00:00:00 Test Item Value Reference Range Interpretation Comments HIV 1/2 4TH GEN, RFLX CONF (test NON-REACTIVE code = 3514) [id number] 00:00:00 Test Item Value Reference Range Interpretation Comments RPR RESULT (test code = NON-REACTIVE 3501) RPR TITER (test code = 3500) NOT INDIC. TITER [id number] 00:00:00 Test Item Value Reference Range Interpretation Comments RPR RESULT (test code = NON-REACTIVE 3501) RPR TITER (test code = 3500) NOT INDIC. TITER [id number] 00:00:00 Test Item Value Reference Range Interpretation Comments RPR RESULT (test code = NON-REACTIVE 3501) RPR TITER (test code = 3500) NOT INDIC. TITER ACUTE HEPATITIS [id number] 00:00:00 Test Item Value Reference Range Interpretation Comments HEPATITIS A IgM (test code = NON-REACTIVE 61535) HEPATITIS B CORE IgM (test code NON-REACTIVE = 4644) HEPATITIS B SURF AG (test code = NON-REACTIVE 2739) HEPATITIS C ANTIBODY (test code NON-REACTIVE = 4675) INTERPRETATION HEPATITIS A: (NOTE) (test code = 2552) INTERPRETATION HEPATITIS B: (NOTE) (test code = 31662) INTERPRETATION HEPATITIS C: (NOTE) (test code = 88931) ACUTE HEPATITIS [id number] 00:00:00 Test Item Value Reference Range Interpretation Comments HEPATITIS A IgM (test code = NON-REACTIVE 24821) HEPATITIS B CORE IgM (test code NON-REACTIVE = 4644) HEPATITIS B SURF AG (test code = NON-REACTIVE 2739) HEPATITIS C ANTIBODY (test code NON-REACTIVE = 4675) INTERPRETATION HEPATITIS A: (NOTE) (test code = 2552) INTERPRETATION HEPATITIS B: (NOTE) (test code = 54839) INTERPRETATION HEPATITIS C: (NOTE) (test code = 55492) CHLAMYDIA, AMPLIFIED, [id number] 00:00:00 Test Item Value Reference Range Interpretation Comments CHLAMYDIA, NAAT (test code = 23958) NEGATIVE CHLAMYDIA, AMPLIFIED, [id number] 00:00:00 Test Item Value Reference Range Interpretation Comments CHLAMYDIA, NAAT (test code = 24881) NEGATIVE CHLAMYDIA, AMPLIFIED, [id number] 00:00:00 Test Item Value Reference Range Interpretation Comments CHLAMYDIA, NAAT (test code = 79479) NEGATIVE CHLAMYDIA, AMPLIFIED, [id number] 00:00:00 Test Item Value Reference Range Interpretation Comments CHLAMYDIA, NAAT (test code = 83465) NEGATIVE GC, AMPLIFIED, [id number] 00:00:00 Test Item Value Reference Range Interpretation Comments GONORRHEA, NAAT (test code = 93825) NEGATIVE GC, AMPLIFIED, [id number] 00:00:00 Test Item Value Reference Range Interpretation Comments GONORRHEA, NAAT (test code = 01710) NEGATIVE GC, AMPLIFIED, [id number] 00:00:00 Test Item Value Reference Range Interpretation Comments GONORRHEA, NAAT (test code = 36153) NEGATIVE GC, AMPLIFIED, [id number] 00:00:00 Test Item Value Reference Range Interpretation Comments GONORRHEA, NAAT (test code = 39389) NEGATIVE HIV AB/AG COMBO RFLX [id number] 00:00:00 Test Item Value Reference Range Interpretation Comments HIV 1/2 4TH GEN, RFLX CONF (test NON-REACTIVE code = 3514) HIV AB/AG COMBO RFLX [id number] 00:00:00 Test Item Value Reference Range Interpretation Comments HIV 1/2 4TH GEN, RFLX CONF (test NON-REACTIVE code = 3514) [id number] 00:00:00 Test Item Value Reference Range Interpretation Comments RPR RESULT (test code = NON-REACTIVE 3501) RPR TITER (test code = 3500) NOT INDIC. TITER [id number] 00:00:00 Test Item Value Reference Range Interpretation Comments RPR RESULT (test code = NON-REACTIVE 3501) RPR TITER (test code = 3500) NOT INDIC. TITER [id number] 00:00:00 Test Item Value Reference Range Interpretation Comments RPR RESULT (test code = NON-REACTIVE 3501) RPR TITER (test code = 3500) NOT INDIC. TITER ACUTE HEPATITIS [id number] 00:00:00 Test Item Value Reference Range Interpretation Comments HEPATITIS A IgM (test code = NON-REACTIVE 74796) HEPATITIS B CORE IgM (test code NON-REACTIVE = 4644) HEPATITIS B SURF AG (test code = NON-REACTIVE 2739) HEPATITIS C ANTIBODY (test code NON-REACTIVE = 4675) INTERPRETATION HEPATITIS A: (NOTE) (test code = 2552) INTERPRETATION HEPATITIS B: (NOTE) (test code = 80718) INTERPRETATION HEPATITIS C: (NOTE) (test code = 90709) ACUTE HEPATITIS [id number] 00:00:00 Test Item Value Reference Range Interpretation Comments HEPATITIS A IgM (test code = NON-REACTIVE 45609) HEPATITIS B CORE IgM (test code NON-REACTIVE = 4644) HEPATITIS B SURF AG (test code = NON-REACTIVE 2739) HEPATITIS C ANTIBODY (test code NON-REACTIVE = 4675) INTERPRETATION HEPATITIS A: (NOTE) (test code = 2552) INTERPRETATION HEPATITIS B: (NOTE) (test code = 70041) INTERPRETATION HEPATITIS C: (NOTE) (test code = 12504) CHLAMYDIA, AMPLIFIED, [id number] 00:00:00 Test Item Value Reference Range Interpretation Comments CHLAMYDIA, NAAT (test code = 38897) NEGATIVE CHLAMYDIA, AMPLIFIED, [id number] 00:00:00 Test Item Value Reference Range Interpretation Comments CHLAMYDIA, NAAT (test code = 48603) NEGATIVE CHLAMYDIA, AMPLIFIED, [id number] 00:00:00 Test Item Value Reference Range Interpretation Comments CHLAMYDIA, NAAT (test code = 73390) NEGATIVE CHLAMYDIA, AMPLIFIED, [id number] 00:00:00 Test Item Value Reference Range Interpretation Comments CHLAMYDIA, NAAT (test code = 58909) NEGATIVE GC, AMPLIFIED, [id number] 00:00:00 Test Item Value Reference Range Interpretation Comments GONORRHEA, NAAT (test code = 49587) NEGATIVE GC, AMPLIFIED, [id number] 00:00:00 Test Item Value Reference Range Interpretation Comments GONORRHEA, NAAT (test code = 79490) NEGATIVE GC, AMPLIFIED, [id number] 00:00:00 Test Item Value Reference Range Interpretation Comments GONORRHEA, NAAT (test code = 50100) NEGATIVE GC, AMPLIFIED, [id number] 00:00:00 Test Item Value Reference Range Interpretation Comments GONORRHEA, NAAT (test code = 14785) NEGATIVE HIV AB/AG COMBO RFLX [id number] 00:00:00 Test Item Value Reference Range Interpretation Comments HIV 1/2 4TH GEN, RFLX CONF (test NON-REACTIVE code = 3514) HIV AB/AG COMBO RFLX [id number] 00:00:00 Test Item Value Reference Range Interpretation Comments HIV 1/2 4TH GEN, RFLX CONF (test NON-REACTIVE code = 3514) [id number] 00:00:00 Test Item Value Reference Range Interpretation Comments RPR RESULT (test code = NON-REACTIVE 3501) RPR TITER (test code = 3500) NOT INDIC. TITER [id number] 00:00:00 Test Item Value Reference Range Interpretation Comments RPR RESULT (test code = NON-REACTIVE 3501) RPR TITER (test code = 3500) NOT INDIC. TITER [id number] 00:00:00 Test Item Value Reference Range Interpretation Comments RPR RESULT (test code = NON-REACTIVE 3501) RPR TITER (test code = 3500) NOT INDIC. TITER ACUTE HEPATITIS [id number] 00:00:00 Test Item Value Reference Range Interpretation Comments HEPATITIS A IgM (test code = NON-REACTIVE 61973) HEPATITIS B CORE IgM (test code NON-REACTIVE = 4644) HEPATITIS B SURF AG (test code = NON-REACTIVE 4219) HEPATITIS C ANTIBODY (test code NON-REACTIVE = 4675) INTERPRETATION HEPATITIS A: (NOTE) (test code = 2552) INTERPRETATION HEPATITIS B: (NOTE) (test code = 29038) INTERPRETATION HEPATITIS C: (NOTE) (test code = 27219) ACUTE HEPATITIS [id number] 00:00:00 Test Item Value Reference Range Interpretation Comments HEPATITIS A IgM (test code = NON-REACTIVE 03566) HEPATITIS B CORE IgM (test code NON-REACTIVE = 4644) HEPATITIS B SURF AG (test code = NON-REACTIVE 2739) HEPATITIS C ANTIBODY (test code NON-REACTIVE = 4675) INTERPRETATION HEPATITIS A: (NOTE) (test code = 2552) INTERPRETATION HEPATITIS B: (NOTE) (test code = 82300) INTERPRETATION HEPATITIS C: (NOTE) (test code = 47350) CHLAMYDIA, AMPLIFIED, [id number] 00:00:00 Test Item Value Reference Range Interpretation Comments CHLAMYDIA, NAAT (test code = 65747) NEGATIVE CHLAMYDIA, AMPLIFIED, [id number] 00:00:00 Test Item Value Reference Range Interpretation Comments CHLAMYDIA, NAAT (test code = 04160) NEGATIVE CHLAMYDIA, AMPLIFIED, [id number] 00:00:00 Test Item Value Reference Range Interpretation Comments CHLAMYDIA, NAAT (test code = 06186) NEGATIVE CHLAMYDIA, AMPLIFIED, [id number] 00:00:00 Test Item Value Reference Range Interpretation Comments CHLAMYDIA, NAAT (test code = 68325) NEGATIVE GC, AMPLIFIED, [id number] 00:00:00 Test Item Value Reference Range Interpretation Comments GONORRHEA, NAAT (test code = 05107) NEGATIVE GC, AMPLIFIED, [id number] 00:00:00 Test Item Value Reference Range Interpretation Comments GONORRHEA, NAAT (test code = 80734) NEGATIVE GC, AMPLIFIED, [id number] 00:00:00 Test Item Value Reference Range Interpretation Comments GONORRHEA, NAAT (test code = 97967) NEGATIVE GC, AMPLIFIED, [id number] 00:00:00 Test Item Value Reference Range Interpretation Comments GONORRHEA, NAAT (test code = 11204) NEGATIVE HIV AB/AG COMBO RFLX [id number] 00:00:00 Test Item Value Reference Range Interpretation Comments HIV 1/2 4TH GEN, RFLX CONF (test NON-REACTIVE code = 3514) HIV AB/AG COMBO RFLX [id number] 00:00:00 Test Item Value Reference Range Interpretation Comments HIV 1/2 4TH GEN, RFLX CONF (test NON-REACTIVE code = 3514) [id number] 00:00:00 Test Item Value Reference Range Interpretation Comments RPR RESULT (test code = NON-REACTIVE 3501) RPR TITER (test code = 3500) NOT INDIC. TITER [id number] 00:00:00 Test Item Value Reference Range Interpretation Comments RPR RESULT (test code = NON-REACTIVE 3501) RPR TITER (test code = 3500) NOT INDIC. TITER [id number] 00:00:00 Test Item Value Reference Range Interpretation Comments RPR RESULT (test code = NON-REACTIVE 3501) RPR TITER (test code = 3500) NOT INDIC. TITER ACUTE HEPATITIS [id number] 00:00:00 Test Item Value Reference Range Interpretation Comments HEPATITIS A IgM (test code = NON-REACTIVE 39512) HEPATITIS B CORE IgM (test code NON-REACTIVE = 4644) HEPATITIS B SURF AG (test code = NON-REACTIVE 2739) HEPATITIS C ANTIBODY (test code NON-REACTIVE = 4675) INTERPRETATION HEPATITIS A: (NOTE) (test code = 2552) INTERPRETATION HEPATITIS B: (NOTE) (test code = 35298) INTERPRETATION HEPATITIS C: (NOTE) (test code = 43326) ACUTE HEPATITIS [id number] 00:00:00 Test Item Value Reference Range Interpretation Comments HEPATITIS A IgM (test code = NON-REACTIVE 72142) HEPATITIS B CORE IgM (test code NON-REACTIVE = 4644) HEPATITIS B SURF AG (test code = NON-REACTIVE 2739) HEPATITIS C ANTIBODY (test code NON-REACTIVE = 4675) INTERPRETATION HEPATITIS A: (NOTE) (test code = 2552) INTERPRETATION HEPATITIS B: (NOTE) (test code = 44952) INTERPRETATION HEPATITIS C: (NOTE) (test code = 47729) CHLAMYDIA, AMPLIFIED, [id number] 00:00:00 Test Item Value Reference Range Interpretation Comments CHLAMYDIA, NAAT (test code = 79403) NEGATIVE CHLAMYDIA, AMPLIFIED, [id number] 00:00:00 Test Item Value Reference Range Interpretation Comments CHLAMYDIA, NAAT (test code = 67497) NEGATIVE CHLAMYDIA, AMPLIFIED, [id number] 00:00:00 Test Item Value Reference Range Interpretation Comments CHLAMYDIA, NAAT (test code = 43733) NEGATIVE CHLAMYDIA, AMPLIFIED, [id number] 00:00:00 Test Item Value Reference Range Interpretation Comments CHLAMYDIA, NAAT (test code = 51323) NEGATIVE GC, AMPLIFIED, [id number] 00:00:00 Test Item Value Reference Range Interpretation Comments GONORRHEA, NAAT (test code = 16854) NEGATIVE GC, AMPLIFIED, [id number] 00:00:00 Test Item Value Reference Range Interpretation Comments GONORRHEA, NAAT (test code = 33337) NEGATIVE GC, AMPLIFIED, [id number] 00:00:00 Test Item Value Reference Range Interpretation Comments GONORRHEA, NAAT (test code = 09005) NEGATIVE GC, AMPLIFIED, [id number] 00:00:00 Test Item Value Reference Range Interpretation Comments GONORRHEA, NAAT (test code = 86783) NEGATIVE HIV AB/AG COMBO RFLX [id number] 00:00:00 Test Item Value Reference Range Interpretation Comments HIV 1/2 4TH GEN, RFLX CONF (test NON-REACTIVE code = 3514) HIV AB/AG COMBO RFLX [id number] 00:00:00 Test Item Value Reference Range Interpretation Comments HIV 1/2 4TH GEN, RFLX CONF (test NON-REACTIVE code = 3514) [id number] 00:00:00 Test Item Value Reference Range Interpretation Comments RPR RESULT (test code = NON-REACTIVE 3501) RPR TITER (test code = 3500) NOT INDIC. TITER [id number] 00:00:00 Test Item Value Reference Range Interpretation Comments RPR RESULT (test code = NON-REACTIVE 3501) RPR TITER (test code = 3500) NOT INDIC. TITER [id number] 00:00:00 Test Item Value Reference Range Interpretation Comments RPR RESULT (test code = NON-REACTIVE 3501) RPR TITER (test code = 3500) NOT INDIC. TITER ACUTE HEPATITIS [id number] 00:00:00 Test Item Value Reference Range Interpretation Comments HEPATITIS A IgM (test code = NON-REACTIVE 24991) HEPATITIS B CORE IgM (test code NON-REACTIVE = 4644) HEPATITIS B SURF AG (test code = NON-REACTIVE 2739) HEPATITIS C ANTIBODY (test code NON-REACTIVE = 8775) INTERPRETATION HEPATITIS A: (NOTE) (test code = 2552) INTERPRETATION HEPATITIS B: (NOTE) (test code = 27315) INTERPRETATION HEPATITIS C: (NOTE) (test code = 94337) ACUTE HEPATITIS [id number] 00:00:00 Test Item Value Reference Range Interpretation Comments HEPATITIS A IgM (test code = NON-REACTIVE 27008) HEPATITIS B CORE IgM (test code NON-REACTIVE = 4644) HEPATITIS B SURF AG (test code = NON-REACTIVE 2739) HEPATITIS C ANTIBODY (test code NON-REACTIVE = 4675) INTERPRETATION HEPATITIS A: (NOTE) (test code = 2552) INTERPRETATION HEPATITIS B: (NOTE) (test code = 28834) INTERPRETATION HEPATITIS C: (NOTE) (test code = 80431) CHLAMYDIA, AMPLIFIED, [id number] 00:00:00 Test Item Value Reference Range Interpretation Comments CHLAMYDIA, NAAT (test code = 97261) NEGATIVE CHLAMYDIA, AMPLIFIED, [id number] 00:00:00 Test Item Value Reference Range Interpretation Comments CHLAMYDIA, NAAT (test code = 41345) NEGATIVE CHLAMYDIA, AMPLIFIED, [id number] 00:00:00 Test Item Value Reference Range Interpretation Comments CHLAMYDIA, NAAT (test code = 30338) NEGATIVE CHLAMYDIA, AMPLIFIED, [id number] 00:00:00 Test Item Value Reference Range Interpretation Comments CHLAMYDIA, NAAT (test code = 92046) NEGATIVE CHLAMYDIA, AMPLIFIED, [id number] 00:00:00 Test Item Value Reference Range Interpretation Comments CHLAMYDIA, NAAT (test code = 80946) NEGATIVE CHLAMYDIA, AMPLIFIED, [id number] 00:00:00 Test Item Value Reference Range Interpretation Comments CHLAMYDIA, NAAT (test code = 68668) NEGATIVE GC, AMPLIFIED, [id number] 00:00:00 Test Item Value Reference Range Interpretation Comments GONORRHEA, NAAT (test code = 04486) NEGATIVE GC, AMPLIFIED, [id number] 00:00:00 Test Item Value Reference Range Interpretation Comments GONORRHEA, NAAT (test code = 91338) NEGATIVE GC, AMPLIFIED, [id number] 00:00:00 Test Item Value Reference Range Interpretation Comments GONORRHEA, NAAT (test code = 91628) NEGATIVE GC, AMPLIFIED, [id number] 00:00:00 Test Item Value Reference Range Interpretation Comments GONORRHEA, NAAT (test code = 10181) NEGATIVE HIV AB/AG COMBO RFLX [id number] 00:00:00 Test Item Value Reference Range Interpretation Comments HIV 1/2 4TH GEN, RFLX CONF (test NON-REACTIVE code = 3514) HIV AB/AG COMBO RFLX [id number] 00:00:00 Test Item Value Reference Range Interpretation Comments HIV 1/2 4TH GEN, RFLX CONF (test NON-REACTIVE code = 3514) [id number] 00:00:00 Test Item Value Reference Range Interpretation Comments RPR RESULT (test code = NON-REACTIVE 3501) RPR TITER (test code = 3500) NOT INDIC. TITER [id number] 00:00:00 Test Item Value Reference Range Interpretation Comments RPR RESULT (test code = NON-REACTIVE 3501) RPR TITER (test code = 3500) NOT INDIC. TITER [id number] 00:00:00 Test Item Value Reference Range Interpretation Comments RPR RESULT (test code = NON-REACTIVE 3501) RPR TITER (test code = 3500) NOT INDIC. TITER ACUTE HEPATITIS [id number] 00:00:00 Test Item Value Reference Range Interpretation Comments HEPATITIS A IgM (test code = NON-REACTIVE 62384) HEPATITIS B CORE IgM (test code NON-REACTIVE = 4644) HEPATITIS B SURF AG (test code = NON-REACTIVE 2739) HEPATITIS C ANTIBODY (test code NON-REACTIVE = 4675) INTERPRETATION HEPATITIS A: (NOTE) (test code = 2552) INTERPRETATION HEPATITIS B: (NOTE) (test code = 66572) INTERPRETATION HEPATITIS C: (NOTE) (test code = 80889) ACUTE HEPATITIS [id number] 00:00:00 Test Item Value Reference Range Interpretation Comments HEPATITIS A IgM (test code = NON-REACTIVE 69201) HEPATITIS B CORE IgM (test code NON-REACTIVE = 4644) HEPATITIS B SURF AG (test code = NON-REACTIVE 2739) HEPATITIS C ANTIBODY (test code NON-REACTIVE = 4675) INTERPRETATION HEPATITIS A: (NOTE) (test code = 2552) INTERPRETATION HEPATITIS B: (NOTE) (test code = 91709) INTERPRETATION HEPATITIS C: (NOTE) (test code = 88296) GC, AMPLIFIED, [id number] 00:00:00 Test Item Value Reference Range Interpretation Comments GONORRHEA, NAAT (test code = 70176) NEGATIVE GC, AMPLIFIED, [id number] 00:00:00 Test Item Value Reference Range Interpretation Comments GONORRHEA, NAAT (test code = 29253) NEGATIVE HIV AB/AG COMBO RFLX [id number] 00:00:00 Test Item Value Reference Range Interpretation Comments HIV 1/2 4TH GEN, RFLX CONF (test NON-REACTIVE code = 3514) CHLAMYDIA, AMPLIFIED, [id number] 00:00:00 Test Item Value Reference Range Interpretation Comments CHLAMYDIA, NAAT (test code = 49807) NEGATIVE [id number] 00:00:00 Test Item Value Reference Range Interpretation Comments RPR RESULT (test code = NON-REACTIVE 3501) RPR TITER (test code = 3500) NOT INDIC. TITER CHLAMYDIA, AMPLIFIED, [id number] 00:00:00 Test Item Value Reference Range Interpretation Comments CHLAMYDIA, NAAT (test code = 75111) NEGATIVE CHLAMYDIA, AMPLIFIED, [id number] 00:00:00 Test Item Value Reference Range Interpretation Comments CHLAMYDIA, NAAT (test code = 00368) NEGATIVE [id number] 00:00:00 Test Item Value Reference Range Interpretation Comments RPR RESULT (test code = NON-REACTIVE 3501) RPR TITER (test code = 3500) NOT INDIC. TITER CHLAMYDIA, AMPLIFIED, [id number] 00:00:00 Test Item Value Reference Range Interpretation Comments CHLAMYDIA, NAAT (test code = 26976) NEGATIVE GC, AMPLIFIED, [id number] 00:00:00 Test Item Value Reference Range Interpretation Comments GONORRHEA, NAAT (test code = 88251) NEGATIVE GC, AMPLIFIED, [id number] 00:00:00 Test Item Value Reference Range Interpretation Comments GONORRHEA, NAAT (test code = 38987) NEGATIVE GC, AMPLIFIED, [id number] 00:00:00 Test Item Value Reference Range Interpretation Comments GONORRHEA, NAAT (test code = 24308) NEGATIVE GC, AMPLIFIED, [id number] 00:00:00 Test Item Value Reference Range Interpretation Comments GONORRHEA, NAAT (test code = 94266) NEGATIVE HIV AB/AG COMBO RFLX [id number] 00:00:00 Test Item Value Reference Range Interpretation Comments HIV 1/2 4TH GEN, RFLX CONF (test NON-REACTIVE code = 3514) ACUTE HEPATITIS [id number] 00:00:00 Test Item Value Reference Range Interpretation Comments HEPATITIS A IgM (test code = NON-REACTIVE 77059) HEPATITIS B CORE IgM (test code NON-REACTIVE = 4644) HEPATITIS B SURF AG (test code = NON-REACTIVE 2739) HEPATITIS C ANTIBODY (test code NON-REACTIVE = 4675) INTERPRETATION HEPATITIS A: (NOTE) (test code = 2552) INTERPRETATION HEPATITIS B: (NOTE) (test code = 64798) INTERPRETATION HEPATITIS C: (NOTE) (test code = 45919) HIV AB/AG COMBO RFLX [id number] 00:00:00 Test Item Value Reference Range Interpretation Comments HIV 1/2 4TH GEN, RFLX CONF (test NON-REACTIVE code = 3514) [id number] 00:00:00 Test Item Value Reference Range Interpretation Comments RPR RESULT (test code = NON-REACTIVE 3501) RPR TITER (test code = 3500) NOT INDIC. TITER [id number] 00:00:00 Test Item Value Reference Range Interpretation Comments RPR RESULT (test code = NON-REACTIVE 3501) RPR TITER (test code = 3500) NOT INDIC. TITER [id number] 00:00:00 Test Item Value Reference Range Interpretation Comments RPR RESULT (test code = NON-REACTIVE 3501) RPR TITER (test code = 3500) NOT INDIC. TITER ACUTE HEPATITIS [id number] 00:00:00 Test Item Value Reference Range Interpretation Comments HEPATITIS A IgM (test code = NON-REACTIVE 01062) HEPATITIS B CORE IgM (test code NON-REACTIVE = 4644) HEPATITIS B SURF AG (test code = NON-REACTIVE 2739) HEPATITIS C ANTIBODY (test code NON-REACTIVE = 4675) INTERPRETATION HEPATITIS A: (NOTE) (test code = 2552) INTERPRETATION HEPATITIS B: (NOTE) (test code = 94575) INTERPRETATION HEPATITIS C: (NOTE) (test code = 70879) ACUTE HEPATITIS [id number] 00:00:00 Test Item Value Reference Range Interpretation Comments HEPATITIS A IgM (test code = NON-REACTIVE 43403) HEPATITIS B CORE IgM (test code NON-REACTIVE = 4644) HEPATITIS B SURF AG (test code = NON-REACTIVE 2739) HEPATITIS C ANTIBODY (test code NON-REACTIVE = 4675) INTERPRETATION HEPATITIS A: (NOTE) (test code = 2552) INTERPRETATION HEPATITIS B: (NOTE) (test code = 56595) INTERPRETATION HEPATITIS C: (NOTE) (test code = 28908) CHLAMYDIA, AMPLIFIED, [id number] 00:00:00 Test Item Value Reference Range Interpretation Comments CHLAMYDIA, NAAT (test code = 50684) NEGATIVE CHLAMYDIA, AMPLIFIED, [id number] 00:00:00 Test Item Value Reference Range Interpretation Comments CHLAMYDIA, NAAT (test code = 53441) NEGATIVE CHLAMYDIA, AMPLIFIED, [id number] 00:00:00 Test Item Value Reference Range Interpretation Comments CHLAMYDIA, NAAT (test code = 46373) NEGATIVE CHLAMYDIA, AMPLIFIED, [id number] 00:00:00 Test Item Value Reference Range Interpretation Comments CHLAMYDIA, NAAT (test code = 65194) NEGATIVE GC, AMPLIFIED, [id number] 00:00:00 Test Item Value Reference Range Interpretation Comments GONORRHEA, NAAT (test code = 93349) NEGATIVE GC, AMPLIFIED, [id number] 00:00:00 Test Item Value Reference Range Interpretation Comments GONORRHEA, NAAT (test code = 67288) NEGATIVE GC, AMPLIFIED, [id number] 00:00:00 Test Item Value Reference Range Interpretation Comments GONORRHEA, NAAT (test code = 82253) NEGATIVE GC, AMPLIFIED, [id number] 00:00:00 Test Item Value Reference Range Interpretation Comments GONORRHEA, NAAT (test code = 00901) NEGATIVE HIV AB/AG COMBO RFLX [id number] 00:00:00 Test Item Value Reference Range Interpretation Comments HIV 1/2 4TH GEN, RFLX CONF (test NON-REACTIVE code = 3514) HIV AB/AG COMBO RFLX [id number] 00:00:00 Test Item Value Reference Range Interpretation Comments HIV 1/2 4TH GEN, RFLX CONF (test NON-REACTIVE code = 3514) [id number] 00:00:00 Test Item Value Reference Range Interpretation Comments RPR RESULT (test code = NON-REACTIVE 3501) RPR TITER (test code = 3500) NOT INDIC. TITER [id number] 00:00:00 Test Item Value Reference Range Interpretation Comments RPR RESULT (test code = NON-REACTIVE 3501) RPR TITER (test code = 3500) NOT INDIC. TITER [id number] 00:00:00 Test Item Value Reference Range Interpretation Comments RPR RESULT (test code = NON-REACTIVE 3501) RPR TITER (test code = 3500) NOT INDIC. TITER ACUTE HEPATITIS [id number] 00:00:00 Test Item Value Reference Range Interpretation Comments HEPATITIS A IgM (test code = NON-REACTIVE 91119) HEPATITIS B CORE IgM (test code NON-REACTIVE = 4644) HEPATITIS B SURF AG (test code = NON-REACTIVE 2739) HEPATITIS C ANTIBODY (test code NON-REACTIVE = 4675) INTERPRETATION HEPATITIS A: (NOTE) (test code = 2552) INTERPRETATION HEPATITIS B: (NOTE) (test code = 43327) INTERPRETATION HEPATITIS C: (NOTE) (test code = 47881) ACUTE HEPATITIS [id number] 00:00:00 Test Item Value Reference Range Interpretation Comments HEPATITIS A IgM (test code = NON-REACTIVE 98433) HEPATITIS B CORE IgM (test code NON-REACTIVE = 4644) HEPATITIS B SURF AG (test code = NON-REACTIVE 2739) HEPATITIS C ANTIBODY (test code NON-REACTIVE = 4675) INTERPRETATION HEPATITIS A: (NOTE) (test code = 2552) INTERPRETATION HEPATITIS B: (NOTE) (test code = 71765) INTERPRETATION HEPATITIS C: (NOTE) (test code = 15642) CULTURE, [id number] 00:00:00 Test Item Value Reference Range Interpretation Comments CULTURE, URINE (test SPECIMEN NUMBER: code = 31120) [id number] CULTURE, [id number] 00:00:00 Test Item Value Reference Range Interpretation Comments CULTURE, URINE (test SPECIMEN NUMBER: code = 64867) [id number] CULTURE, [id number] 00:00:00 Test Item Value Reference Range Interpretation Comments CULTURE, URINE (test SPECIMEN NUMBER: code = 13204) [id number] CULTURE, [id number] 00:00:00 Test Item Value Reference Range Interpretation Comments CULTURE, URINE (test SPECIMEN NUMBER: code = 34623) [id number] CULTURE, [id number] 00:00:00 Test Item Value Reference Range Interpretation Comments CULTURE, URINE (test SPECIMEN NUMBER: code = 14417) [id number] CULTURE, [id number] 00:00:00 Test Item Value Reference Range Interpretation Comments CULTURE, URINE (test SPECIMEN NUMBER: code = 23705) [id number] CULTURE, [id number] 00:00:00 Test Item Value Reference Range Interpretation Comments CULTURE, URINE (test SPECIMEN NUMBER: code = 63959) [id number] CULTURE, [id number] 00:00:00 Test Item Value Reference Range Interpretation Comments CULTURE, URINE (test SPECIMEN NUMBER: code = 50759) [id number] CULTURE, [id number] 00:00:00 Test Item Value Reference Range Interpretation Comments CULTURE, URINE (test SPECIMEN NUMBER: code = 31180) [id number] CULTURE, [id number] 00:00:00 Test Item Value Reference Range Interpretation Comments CULTURE, URINE (test SPECIMEN NUMBER: code = 51226) [id number] CULTURE, [id number] 00:00:00 Test Item Value Reference Range Interpretation Comments CULTURE, URINE (test SPECIMEN NUMBER: code = 35024) [id number] CULTURE, [id number] 00:00:00 Test Item Value Reference Range Interpretation Comments CULTURE, URINE (test SPECIMEN NUMBER: code = 28508) [id number] CULTURE, [id number] 00:00:00 Test Item Value Reference Range Interpretation Comments CULTURE, URINE (test SPECIMEN NUMBER: code = 35741) [id number] CULTURE, [id number] 00:00:00 Test Item Value Reference Range Interpretation Comments CULTURE, URINE (test SPECIMEN NUMBER: code = 24056) [id number] CULTURE, [id number] 00:00:00 Test Item Value Reference Range Interpretation Comments CULTURE, URINE (test SPECIMEN NUMBER: code = 40713) [id number] CULTURE, [id number] 00:00:00 Test Item Value Reference Range Interpretation Comments CULTURE, URINE (test SPECIMEN NUMBER: code = 11294) [id number] CULTURE, [id number] 00:00:00 Test Item Value Reference Range Interpretation Comments CULTURE, URINE (test SPECIMEN NUMBER: code = 39324) [id number] CULTURE, [id number] 00:00:00 Test Item Value Reference Range Interpretation Comments CULTURE, URINE (test SPECIMEN NUMBER: code = 12124) [id number] CULTURE, [id number] 00:00:00 Test Item Value Reference Range Interpretation Comments CULTURE, URINE (test SPECIMEN NUMBER: code = 22454) [id number] CULTURE, [id number] 00:00:00 Test Item Value Reference Range Interpretation Comments CULTURE, URINE (test SPECIMEN NUMBER: code = 36770) [id number] CULTURE, [id number] 00:00:00 Test Item Value Reference Range Interpretation Comments CULTURE, URINE (test SPECIMEN NUMBER: code = 42080) [id number] VAGINAL PATHOGENS DNA [id number] 00:00:00 Test Item Value Reference Range Interpretation Comments RAMESH SPECIES (test code = 24863) POSITIVE G. VAGINALIS (test code = 27837) POSITIVE T. VAGINALIS (test code = 63261) NEGATIVE VAGINAL PATHOGENS DNA [id number] 00:00:00 Test Item Value Reference Range Interpretation Comments RAMESH SPECIES (test code = 21345) POSITIVE G. VAGINALIS (test code = 94209) POSITIVE T. VAGINALIS (test code = 32915) NEGATIVE VAGINAL PATHOGENS DNA [id number] 00:00:00 Test Item Value Reference Range Interpretation Comments RAMESH SPECIES (test code = 17572) POSITIVE G. VAGINALIS (test code = 23092) POSITIVE T. VAGINALIS (test code = 03999) NEGATIVE VAGINAL PATHOGENS DNA [id number] 00:00:00 Test Item Value Reference Range Interpretation Comments RAMESH SPECIES (test code = 93462) POSITIVE G. VAGINALIS (test code = 79629) POSITIVE T. VAGINALIS (test code = 46535) NEGATIVE VAGINAL PATHOGENS DNA [id number] 00:00:00 Test Item Value Reference Range Interpretation Comments RAMESH SPECIES (test code = 39677) POSITIVE G. VAGINALIS (test code = 97516) POSITIVE T. VAGINALIS (test code = 08955) NEGATIVE VAGINAL PATHOGENS DNA [id number] 00:00:00 Test Item Value Reference Range Interpretation Comments RAMESH SPECIES (test code = 43974) POSITIVE G. VAGINALIS (test code = 04718) POSITIVE T. VAGINALIS (test code = 39970) NEGATIVE VAGINAL PATHOGENS DNA [id number] 00:00:00 Test Item Value Reference Range Interpretation Comments RAMESH SPECIES (test code = 09274) POSITIVE G. VAGINALIS (test code = 63976) POSITIVE T. VAGINALIS (test code = 28877) NEGATIVE VAGINAL PATHOGENS DNA [id number] 00:00:00 Test Item Value Reference Range Interpretation Comments RAMESH SPECIES (test code = 15347) POSITIVE G. VAGINALIS (test code = 54005) POSITIVE T. VAGINALIS (test code = 50752) NEGATIVE VAGINAL PATHOGENS DNA [id number] 00:00:00 Test Item Value Reference Range Interpretation Comments RAMESH SPECIES (test code = 30781) POSITIVE G. VAGINALIS (test code = 23645) POSITIVE T. VAGINALIS (test code = 99507) NEGATIVE VAGINAL PATHOGENS DNA [id number] 00:00:00 Test Item Value Reference Range Interpretation Comments RAMESH SPECIES (test code = 76764) POSITIVE G. VAGINALIS (test code = 59217) POSITIVE T. VAGINALIS (test code = 73258) NEGATIVE VAGINAL PATHOGENS DNA [id number] 00:00:00 Test Item Value Reference Range Interpretation Comments RAMESH SPECIES (test code = 87354) POSITIVE G. VAGINALIS (test code = 30967) POSITIVE T. VAGINALIS (test code = 48655) NEGATIVE VAGINAL PATHOGENS DNA [id number] 00:00:00 Test Item Value Reference Range Interpretation Comments RAMESH SPECIES (test code = 53984) POSITIVE G. VAGINALIS (test code = 64786) POSITIVE T. VAGINALIS (test code = 03600) NEGATIVE VAGINAL PATHOGENS DNA [id number] 00:00:00 Test Item Value Reference Range Interpretation Comments RAMESH SPECIES (test code = 66817) POSITIVE G. VAGINALIS (test code = 93029) POSITIVE T. VAGINALIS (test code = 69178) NEGATIVE VAGINAL PATHOGENS DNA [id number] 00:00:00 Test Item Value Reference Range Interpretation Comments RAMESH SPECIES (test code = 68628) POSITIVE G. VAGINALIS (test code = 70392) POSITIVE T. VAGINALIS (test code = 31077) NEGATIVE VAGINAL PATHOGENS DNA [id number] 00:00:00 Test Item Value Reference Range Interpretation Comments RAMESH SPECIES (test code = 97792) POSITIVE G. VAGINALIS (test code = 84497) POSITIVE T. VAGINALIS (test code = 25327) NEGATIVE VAGINAL PATHOGENS DNA [id number] 00:00:00 Test Item Value Reference Range Interpretation Comments RAMESH SPECIES (test code = 48745) POSITIVE G. VAGINALIS (test code = 56477) POSITIVE T. VAGINALIS (test code = 67265) NEGATIVE VAGINAL PATHOGENS DNA [id number] 00:00:00 Test Item Value Reference Range Interpretation Comments RAMESH SPECIES (test code = 43353) POSITIVE G. VAGINALIS (test code = 13122) POSITIVE T. VAGINALIS (test code = 98283) NEGATIVE VAGINAL PATHOGENS DNA [id number] 00:00:00 Test Item Value Reference Range Interpretation Comments RAMESH SPECIES (test code = 54418) POSITIVE G. VAGINALIS (test code = 95693) POSITIVE T. VAGINALIS (test code = 24957) NEGATIVE VAGINAL PATHOGENS DNA [id number] 00:00:00 Test Item Value Reference Range Interpretation Comments RAMESH SPECIES (test code = 59415) POSITIVE G. VAGINALIS (test code = 26852) POSITIVE T. VAGINALIS (test code = 84194) NEGATIVE VAGINAL PATHOGENS DNA [id number] 00:00:00 Test Item Value Reference Range Interpretation Comments RAMESH SPECIES (test code = 25088) POSITIVE G. VAGINALIS (test code = 07756) POSITIVE T. VAGINALIS (test code = 95807) NEGATIVE VAGINAL PATHOGENS DNA [id number] 00:00:00 Test Item Value Reference Range Interpretation Comments RAMESH SPECIES (test code = 65508) POSITIVE G. VAGINALIS (test code = 01118) POSITIVE T. VAGINALIS (test code = 25662) NEGATIVE CULTURE, [id number] 00:00:00 Test Item Value Reference Range Interpretation Comments CULTURE, URINE (test SPECIMEN NUMBER: code = 89443) [id number] CULTURE, [id number] 00:00:00 Test Item Value Reference Range Interpretation Comments CULTURE, URINE (test SPECIMEN NUMBER: code = 15086) [id number] CULTURE, [id number] 00:00:00 Test Item Value Reference Range Interpretation Comments CULTURE, URINE (test SPECIMEN NUMBER: code = 26799) [id number] CULTURE, [id number] 00:00:00 Test Item Value Reference Range Interpretation Comments CULTURE, URINE (test SPECIMEN NUMBER: code = 22357) [id number] CULTURE, [id number] 00:00:00 Test Item Value Reference Range Interpretation Comments CULTURE, URINE (test SPECIMEN NUMBER: code = 67056) [id number] CULTURE, [id number] 00:00:00 Test Item Value Reference Range Interpretation Comments CULTURE, URINE (test SPECIMEN NUMBER: code = 13624) [id number] CULTURE, [id number] 00:00:00 Test Item Value Reference Range Interpretation Comments CULTURE, URINE (test SPECIMEN NUMBER: code = 79196) [id number] CULTURE, [id number] 00:00:00 Test Item Value Reference Range Interpretation Comments CULTURE, URINE (test SPECIMEN NUMBER: code = 83562) [id number] CULTURE, [id number] 00:00:00 Test Item Value Reference Range Interpretation Comments CULTURE, URINE (test SPECIMEN NUMBER: code = 77186) [id number] CULTURE, [id number] 00:00:00 Test Item Value Reference Range Interpretation Comments CULTURE, URINE (test SPECIMEN NUMBER: code = 21575) [id number] CULTURE, [id number] 00:00:00 Test Item Value Reference Range Interpretation Comments CULTURE, URINE (test SPECIMEN NUMBER: code = 09344) [id number] CULTURE, [id number] 00:00:00 Test Item Value Reference Range Interpretation Comments CULTURE, URINE (test SPECIMEN NUMBER: code = 44434) [id number] CULTURE, [id number] 00:00:00 Test Item Value Reference Range Interpretation Comments CULTURE, URINE (test SPECIMEN NUMBER: code = 49250) [id number] CULTURE, [id number] 00:00:00 Test Item Value Reference Range Interpretation Comments CULTURE, URINE (test SPECIMEN NUMBER: code = 82862) [id number] CULTURE, [id number] 00:00:00 Test Item Value Reference Range Interpretation Comments CULTURE, URINE (test SPECIMEN NUMBER: code = 46615) [id number] CULTURE, [id number] 00:00:00 Test Item Value Reference Range Interpretation Comments CULTURE, URINE (test SPECIMEN NUMBER: code = 85458) [id number] CULTURE, [id number] 00:00:00 Test Item Value Reference Range Interpretation Comments CULTURE, URINE (test SPECIMEN NUMBER: code = 05066) [id number] CULTURE, [id number] 00:00:00 Test Item Value Reference Range Interpretation Comments CULTURE, URINE (test SPECIMEN NUMBER: code = 27702) [id number] CULTURE, [id number] 00:00:00 Test Item Value Reference Range Interpretation Comments CULTURE, URINE (test SPECIMEN NUMBER: code = 99649) [id number] CULTURE, [id number] 00:00:00 Test Item Value Reference Range Interpretation Comments CULTURE, URINE (test SPECIMEN NUMBER: code = 84782) [id number] CULTURE, [id number] 00:00:00 Test Item Value Reference Range Interpretation Comments CULTURE, URINE (test SPECIMEN NUMBER: code = 82100) [id number] GC AND CHLAMYDIA, AMPLIFIED, [id number] 00:00:00 Test Item Value Reference Range Interpretation Comments GONORRHEA, TMA (test code = 45868) NEGATIVE CHLAMYDIA, TMA (test code = 47743) NEGATIVE GC AND CHLAMYDIA, AMPLIFIED, [id number] 00:00:00 Test Item Value Reference Range Interpretation Comments GONORRHEA, TMA (test code = 34168) NEGATIVE CHLAMYDIA, TMA (test code = 20171) NEGATIVE GC AND CHLAMYDIA, AMPLIFIED, [id number] 00:00:00 Test Item Value Reference Range Interpretation Comments GONORRHEA, TMA (test code = 99341) NEGATIVE CHLAMYDIA, TMA (test code = 54850) NEGATIVE GC AND CHLAMYDIA, AMPLIFIED, [id number] 00:00:00 Test Item Value Reference Range Interpretation Comments GONORRHEA, TMA (test code = 91946) NEGATIVE CHLAMYDIA, TMA (test code = 41766) NEGATIVE GC AND CHLAMYDIA, AMPLIFIED, [id number] 00:00:00 Test Item Value Reference Range Interpretation Comments GONORRHEA, TMA (test code = 95960) NEGATIVE CHLAMYDIA, TMA (test code = 67061) NEGATIVE GC AND CHLAMYDIA, AMPLIFIED, [id number] 00:00:00 Test Item Value Reference Range Interpretation Comments GONORRHEA, TMA (test code = 32208) NEGATIVE CHLAMYDIA, TMA (test code = 01854) NEGATIVE GC AND CHLAMYDIA, AMPLIFIED, [id number] 00:00:00 Test Item Value Reference Range Interpretation Comments GONORRHEA, TMA (test code = 04362) NEGATIVE CHLAMYDIA, TMA (test code = 58604) NEGATIVE GC AND CHLAMYDIA, AMPLIFIED, [id number] 00:00:00 Test Item Value Reference Range Interpretation Comments GONORRHEA, TMA (test code = 25878) NEGATIVE CHLAMYDIA, TMA (test code = 48040) NEGATIVE GC AND CHLAMYDIA, AMPLIFIED, [id number] 00:00:00 Test Item Value Reference Range Interpretation Comments GONORRHEA, TMA (test code = 08617) NEGATIVE CHLAMYDIA, TMA (test code = 92337) NEGATIVE GC AND CHLAMYDIA, AMPLIFIED, [id number] 00:00:00 Test Item Value Reference Range Interpretation Comments GONORRHEA, TMA (test code = 20695) NEGATIVE CHLAMYDIA, TMA (test code = 80360) NEGATIVE GC AND CHLAMYDIA, AMPLIFIED, [id number] 00:00:00 Test Item Value Reference Range Interpretation Comments GONORRHEA, TMA (test code = 88828) NEGATIVE CHLAMYDIA, TMA (test code = 59943) NEGATIVE GC AND CHLAMYDIA, AMPLIFIED, [id number] 00:00:00 Test Item Value Reference Range Interpretation Comments GONORRHEA, TMA (test code = 84515) NEGATIVE CHLAMYDIA, TMA (test code = 28016) NEGATIVE GC AND CHLAMYDIA, AMPLIFIED, [id number] 00:00:00 Test Item Value Reference Range Interpretation Comments GONORRHEA, TMA (test code = 68434) NEGATIVE CHLAMYDIA, TMA (test code = 06351) NEGATIVE GC AND CHLAMYDIA, AMPLIFIED, [id number] 00:00:00 Test Item Value Reference Range Interpretation Comments GONORRHEA, TMA (test code = 35090) NEGATIVE CHLAMYDIA, TMA (test code = 43805) NEGATIVE GC AND CHLAMYDIA, AMPLIFIED, [id number] 00:00:00 Test Item Value Reference Range Interpretation Comments GONORRHEA, TMA (test code = 08179) NEGATIVE CHLAMYDIA, TMA (test code = 48014) NEGATIVE GC AND CHLAMYDIA, AMPLIFIED, [id number] 00:00:00 Test Item Value Reference Range Interpretation Comments GONORRHEA, TMA (test code = 24736) NEGATIVE CHLAMYDIA, TMA (test code = 35959) NEGATIVE GC AND CHLAMYDIA, AMPLIFIED, [id number] 00:00:00 Test Item Value Reference Range Interpretation Comments GONORRHEA, TMA (test code = 24271) NEGATIVE CHLAMYDIA, TMA (test code = 48949) NEGATIVE GC AND CHLAMYDIA, AMPLIFIED, [id number] 00:00:00 Test Item Value Reference Range Interpretation Comments GONORRHEA, TMA (test code = 73204) NEGATIVE CHLAMYDIA, TMA (test code = 45647) NEGATIVE GC AND CHLAMYDIA, AMPLIFIED, [id number] 00:00:00 Test Item Value Reference Range Interpretation Comments GONORRHEA, TMA (test code = 03138) NEGATIVE CHLAMYDIA, TMA (test code = 54242) NEGATIVE GC AND CHLAMYDIA, AMPLIFIED, [id number] 00:00:00 Test Item Value Reference Range Interpretation Comments GONORRHEA, TMA (test code = 98417) NEGATIVE CHLAMYDIA, TMA (test code = 66477) NEGATIVE GC AND CHLAMYDIA, AMPLIFIED, [id number] 00:00:00 Test Item Value Reference Range Interpretation Comments GONORRHEA, TMA (test code = 06083) NEGATIVE CHLAMYDIA, TMA (test code = 44165) NEGATIVE VAGINAL PATHOGENS DNA [id number] 00:00:00 Test Item Value Reference Range Interpretation Comments RAMESH SPECIES (test code = 83684) NEGATIVE G. VAGINALIS (test code = 47434) POSITIVE T. VAGINALIS (test code = 80789) NEGATIVE VAGINAL PATHOGENS DNA [id number] 00:00:00 Test Item Value Reference Range Interpretation Comments RAMESH SPECIES (test code = 77050) NEGATIVE G. VAGINALIS (test code = 10390) POSITIVE T. VAGINALIS (test code = 78472) NEGATIVE VAGINAL PATHOGENS DNA [id number] 00:00:00 Test Item Value Reference Range Interpretation Comments RAMESH SPECIES (test code = 35825) NEGATIVE G. VAGINALIS (test code = 87691) POSITIVE T. VAGINALIS (test code = 20978) NEGATIVE VAGINAL PATHOGENS DNA [id number] 00:00:00 Test Item Value Reference Range Interpretation Comments RAMESH SPECIES (test code = 38638) NEGATIVE G. VAGINALIS (test code = 59197) POSITIVE T. VAGINALIS (test code = 34212) NEGATIVE VAGINAL PATHOGENS DNA [id number] 00:00:00 Test Item Value Reference Range Interpretation Comments RAMESH SPECIES (test code = 69672) NEGATIVE G. VAGINALIS (test code = 53172) POSITIVE T. VAGINALIS (test code = 97080) NEGATIVE VAGINAL PATHOGENS DNA [id number] 00:00:00 Test Item Value Reference Range Interpretation Comments RAMESH SPECIES (test code = 20295) NEGATIVE G. VAGINALIS (test code = 15665) POSITIVE T. VAGINALIS (test code = 48663) NEGATIVE VAGINAL PATHOGENS DNA [id number] 00:00:00 Test Item Value Reference Range Interpretation Comments RAMESH SPECIES (test code = 27534) NEGATIVE G. VAGINALIS (test code = 50075) POSITIVE T. VAGINALIS (test code = 02499) NEGATIVE VAGINAL PATHOGENS DNA [id number] 00:00:00 Test Item Value Reference Range Interpretation Comments RAMESH SPECIES (test code = 10380) NEGATIVE G. VAGINALIS (test code = 24216) POSITIVE T. VAGINALIS (test code = 56313) NEGATIVE VAGINAL PATHOGENS DNA [id number] 00:00:00 Test Item Value Reference Range Interpretation Comments RAMESH SPECIES (test code = 40536) NEGATIVE G. VAGINALIS (test code = 42694) POSITIVE T. VAGINALIS (test code = 57434) NEGATIVE VAGINAL PATHOGENS DNA [id number] 00:00:00 Test Item Value Reference Range Interpretation Comments RAMESH SPECIES (test code = 34463) NEGATIVE G. VAGINALIS (test code = 06945) POSITIVE T. VAGINALIS (test code = 07408) NEGATIVE VAGINAL PATHOGENS DNA [id number] 00:00:00 Test Item Value Reference Range Interpretation Comments RAMESH SPECIES (test code = 08788) NEGATIVE G. VAGINALIS (test code = 50771) POSITIVE T. VAGINALIS (test code = 28176) NEGATIVE VAGINAL PATHOGENS DNA [id number] 00:00:00 Test Item Value Reference Range Interpretation Comments RAMESH SPECIES (test code = 05675) NEGATIVE G. VAGINALIS (test code = 73844) POSITIVE T. VAGINALIS (test code = 23812) NEGATIVE VAGINAL PATHOGENS DNA [id number] 00:00:00 Test Item Value Reference Range Interpretation Comments RAMESH SPECIES (test code = 42902) NEGATIVE G. VAGINALIS (test code = 05404) POSITIVE T. VAGINALIS (test code = 42910) NEGATIVE VAGINAL PATHOGENS DNA [id number] 00:00:00 Test Item Value Reference Range Interpretation Comments RAMESH SPECIES (test code = 14830) NEGATIVE G. VAGINALIS (test code = 05079) POSITIVE T. VAGINALIS (test code = 84013) NEGATIVE VAGINAL PATHOGENS DNA [id number] 00:00:00 Test Item Value Reference Range Interpretation Comments RAMESH SPECIES (test code = 06809) NEGATIVE G. VAGINALIS (test code = 06411) POSITIVE T. VAGINALIS (test code = 68538) NEGATIVE VAGINAL PATHOGENS DNA [id number] 00:00:00 Test Item Value Reference Range Interpretation Comments RAMESH SPECIES (test code = 33261) NEGATIVE G. VAGINALIS (test code = 87837) POSITIVE T. VAGINALIS (test code = 03616) NEGATIVE VAGINAL PATHOGENS DNA [id number] 00:00:00 Test Item Value Reference Range Interpretation Comments RAMESH SPECIES (test code = 19956) NEGATIVE G. VAGINALIS (test code = 33321) POSITIVE T. VAGINALIS (test code = 25876) NEGATIVE VAGINAL PATHOGENS DNA [id number] 00:00:00 Test Item Value Reference Range Interpretation Comments RAMESH SPECIES (test code = 56003) NEGATIVE G. VAGINALIS (test code = 35350) POSITIVE T. VAGINALIS (test code = 09492) NEGATIVE VAGINAL PATHOGENS DNA [id number] 00:00:00 Test Item Value Reference Range Interpretation Comments RAMESH SPECIES (test code = 00010) NEGATIVE G. VAGINALIS (test code = 43971) POSITIVE T. VAGINALIS (test code = 87295) NEGATIVE VAGINAL PATHOGENS DNA [id number] 00:00:00 Test Item Value Reference Range Interpretation Comments RAMESH SPECIES (test code = 32648) NEGATIVE G. VAGINALIS (test code = 67757) POSITIVE T. VAGINALIS (test code = 29578) NEGATIVE VAGINAL PATHOGENS DNA [id number] 00:00:00 Test Item Value Reference Range Interpretation Comments RAMESH SPECIES (test code = 76964) NEGATIVE G. VAGINALIS (test code = 30101) POSITIVE T. VAGINALIS (test code = 81979) NEGATIVE GC AND CHLAMYDIA, AMPLIFIED, [id number] 00:00:00 Test Item Value Reference Range Interpretation Comments GONORRHEA, TMA (test code = 67723) NEGATIVE CHLAMYDIA, TMA (test code = 15422) NEGATIVE GC AND CHLAMYDIA, AMPLIFIED, [id number] 00:00:00 Test Item Value Reference Range Interpretation Comments GONORRHEA, TMA (test code = 39725) NEGATIVE CHLAMYDIA, TMA (test code = 12144) NEGATIVE GC AND CHLAMYDIA, AMPLIFIED, [id number] 00:00:00 Test Item Value Reference Range Interpretation Comments GONORRHEA, TMA (test code = 26146) NEGATIVE CHLAMYDIA, TMA (test code = 72492) NEGATIVE GC AND CHLAMYDIA, AMPLIFIED, [id number] 00:00:00 Test Item Value Reference Range Interpretation Comments GONORRHEA, TMA (test code = 43781) NEGATIVE CHLAMYDIA, TMA (test code = 03106) NEGATIVE GC AND CHLAMYDIA, AMPLIFIED, [id number] 00:00:00 Test Item Value Reference Range Interpretation Comments GONORRHEA, TMA (test code = 41223) NEGATIVE CHLAMYDIA, TMA (test code = 54993) NEGATIVE GC AND CHLAMYDIA, AMPLIFIED, [id number] 00:00:00 Test Item Value Reference Range Interpretation Comments GONORRHEA, TMA (test code = 92761) NEGATIVE CHLAMYDIA, TMA (test code = 11696) NEGATIVE GC AND CHLAMYDIA, AMPLIFIED, [id number] 00:00:00 Test Item Value Reference Range Interpretation Comments GONORRHEA, TMA (test code = 50347) NEGATIVE CHLAMYDIA, TMA (test code = 35870) NEGATIVE GC AND CHLAMYDIA, AMPLIFIED, [id number] 00:00:00 Test Item Value Reference Range Interpretation Comments GONORRHEA, TMA (test code = 25059) NEGATIVE CHLAMYDIA, TMA (test code = 81666) NEGATIVE GC AND CHLAMYDIA, AMPLIFIED, [id number] 00:00:00 Test Item Value Reference Range Interpretation Comments GONORRHEA, TMA (test code = 77002) NEGATIVE CHLAMYDIA, TMA (test code = 99098) NEGATIVE GC AND CHLAMYDIA, AMPLIFIED, [id number] 00:00:00 Test Item Value Reference Range Interpretation Comments GONORRHEA, TMA (test code = 70879) NEGATIVE CHLAMYDIA, TMA (test code = 52737) NEGATIVE GC AND CHLAMYDIA, AMPLIFIED, [id number] 00:00:00 Test Item Value Reference Range Interpretation Comments GONORRHEA, TMA (test code = 03990) NEGATIVE CHLAMYDIA, TMA (test code = 02000) NEGATIVE GC AND CHLAMYDIA, AMPLIFIED, [id number] 00:00:00 Test Item Value Reference Range Interpretation Comments GONORRHEA, TMA (test code = 34123) NEGATIVE CHLAMYDIA, TMA (test code = 07638) NEGATIVE GC AND CHLAMYDIA, AMPLIFIED, [id number] 00:00:00 Test Item Value Reference Range Interpretation Comments GONORRHEA, TMA (test code = 64202) NEGATIVE CHLAMYDIA, TMA (test code = 28371) NEGATIVE GC AND CHLAMYDIA, AMPLIFIED, [id number] 00:00:00 Test Item Value Reference Range Interpretation Comments GONORRHEA, TMA (test code = 48304) NEGATIVE CHLAMYDIA, TMA (test code = 95768) NEGATIVE GC AND CHLAMYDIA, AMPLIFIED, [id number] 00:00:00 Test Item Value Reference Range Interpretation Comments GONORRHEA, TMA (test code = 92121) NEGATIVE CHLAMYDIA, TMA (test code = 95468) NEGATIVE GC AND CHLAMYDIA, AMPLIFIED, [id number] 00:00:00 Test Item Value Reference Range Interpretation Comments GONORRHEA, TMA (test code = 55934) NEGATIVE CHLAMYDIA, TMA (test code = 99841) NEGATIVE GC AND CHLAMYDIA, AMPLIFIED, [id number] 00:00:00 Test Item Value Reference Range Interpretation Comments GONORRHEA, TMA (test code = 23347) NEGATIVE CHLAMYDIA, TMA (test code = 85689) NEGATIVE GC AND CHLAMYDIA, AMPLIFIED, [id number] 00:00:00 Test Item Value Reference Range Interpretation Comments GONORRHEA, TMA (test code = 18753) NEGATIVE CHLAMYDIA, TMA (test code = 07126) NEGATIVE GC AND CHLAMYDIA, AMPLIFIED, [id number] 00:00:00 Test Item Value Reference Range Interpretation Comments GONORRHEA, TMA (test code = 99207) NEGATIVE CHLAMYDIA, TMA (test code = 29889) NEGATIVE GC AND CHLAMYDIA, AMPLIFIED, [id number] 00:00:00 Test Item Value Reference Range Interpretation Comments GONORRHEA, TMA (test code = 98735) NEGATIVE CHLAMYDIA, TMA (test code = 69126) NEGATIVE GC AND CHLAMYDIA, AMPLIFIED, [id number] 00:00:00 Test Item Value Reference Range Interpretation Comments GONORRHEA, TMA (test code = 27624) NEGATIVE CHLAMYDIA, TMA (test code = 24384) NEGATIVE CULTURE, [id number] 00:00:00 Test Item Value Reference Range Interpretation Comments CULTURE, URINE (test SPECIMEN NUMBER: code = 56115) [id number] CULTURE, [id number] 00:00:00 Test Item Value Reference Range Interpretation Comments CULTURE, URINE (test SPECIMEN NUMBER: code = 65582) [id number] CULTURE, [id number] 00:00:00 Test Item Value Reference Range Interpretation Comments CULTURE, URINE (test SPECIMEN NUMBER: code = 49621) [id number] CULTURE, [id number] 00:00:00 Test Item Value Reference Range Interpretation Comments CULTURE, URINE (test SPECIMEN NUMBER: code = 04309) [id number] CULTURE, [id number] 00:00:00 Test Item Value Reference Range Interpretation Comments CULTURE, URINE (test SPECIMEN NUMBER: code = 91174) [id number] CULTURE, [id number] 00:00:00 Test Item Value Reference Range Interpretation Comments CULTURE, URINE (test SPECIMEN NUMBER: code = 64341) [id number] CULTURE, [id number] 00:00:00 Test Item Value Reference Range Interpretation Comments CULTURE, URINE (test SPECIMEN NUMBER: code = 14297) [id number] CULTURE, [id number] 00:00:00 Test Item Value Reference Range Interpretation Comments CULTURE, URINE (test SPECIMEN NUMBER: code = 05721) [id number] CULTURE, [id number] 00:00:00 Test Item Value Reference Range Interpretation Comments CULTURE, URINE (test SPECIMEN NUMBER: code = 18071) [id number] CULTURE, [id number] 00:00:00 Test Item Value Reference Range Interpretation Comments CULTURE, URINE (test SPECIMEN NUMBER: code = 85114) [id number] CULTURE, [id number] 00:00:00 Test Item Value Reference Range Interpretation Comments CULTURE, URINE (test SPECIMEN NUMBER: code = 37866) [id number] CULTURE, [id number] 00:00:00 Test Item Value Reference Range Interpretation Comments CULTURE, URINE (test SPECIMEN NUMBER: code = 31647) [id number] CULTURE, [id number] 00:00:00 Test Item Value Reference Range Interpretation Comments CULTURE, URINE (test SPECIMEN NUMBER: code = 05693) [id number] CULTURE, [id number] 00:00:00 Test Item Value Reference Range Interpretation Comments CULTURE, URINE (test SPECIMEN NUMBER: code = 86269) [id number] CULTURE, [id number] 00:00:00 Test Item Value Reference Range Interpretation Comments CULTURE, URINE (test SPECIMEN NUMBER: code = 86115) [id number] CULTURE, [id number] 00:00:00 Test Item Value Reference Range Interpretation Comments CULTURE, URINE (test SPECIMEN NUMBER: code = 24371) [id number] CULTURE, [id number] 00:00:00 Test Item Value Reference Range Interpretation Comments CULTURE, URINE (test SPECIMEN NUMBER: code = 95001) [id number] CULTURE, [id number] 00:00:00 Test Item Value Reference Range Interpretation Comments CULTURE, URINE (test SPECIMEN NUMBER: code = 97750) [id number] CULTURE, [id number] 00:00:00 Test Item Value Reference Range Interpretation Comments CULTURE, URINE (test SPECIMEN NUMBER: code = 67097) [id number] CULTURE, [id number] 00:00:00 Test Item Value Reference Range Interpretation Comments CULTURE, URINE (test SPECIMEN NUMBER: code = 78402) [id number] CULTURE, [id number] 00:00:00 Test Item Value Reference Range Interpretation Comments CULTURE, URINE (test SPECIMEN NUMBER: code = 02813) [id number] VAGINAL PATHOGENS DNA [id number] 00:00:00 Test Item Value Reference Range Interpretation Comments RAMESH SPECIES (test code = 59661) NEGATIVE G. VAGINALIS (test code = 78000) POSITIVE T. VAGINALIS (test code = 41117) NEGATIVE VAGINAL PATHOGENS DNA [id number] 00:00:00 Test Item Value Reference Range Interpretation Comments RAMESH SPECIES (test code = 63865) NEGATIVE G. VAGINALIS (test code = 78668) POSITIVE T. VAGINALIS (test code = 68512) NEGATIVE VAGINAL PATHOGENS DNA [id number] 00:00:00 Test Item Value Reference Range Interpretation Comments RAMESH SPECIES (test code = 25710) NEGATIVE G. VAGINALIS (test code = 04122) POSITIVE T. VAGINALIS (test code = 54232) NEGATIVE VAGINAL PATHOGENS DNA [id number] 00:00:00 Test Item Value Reference Range Interpretation Comments RAMSEH SPECIES (test code = 99133) NEGATIVE G. VAGINALIS (test code = 16637) POSITIVE T. VAGINALIS (test code = 23029) NEGATIVE VAGINAL PATHOGENS DNA [id number] 00:00:00 Test Item Value Reference Range Interpretation Comments RAMESH SPECIES (test code = 89503) NEGATIVE G. VAGINALIS (test code = 65644) POSITIVE T. VAGINALIS (test code = 11620) NEGATIVE VAGINAL PATHOGENS DNA [id number] 00:00:00 Test Item Value Reference Range Interpretation Comments RAMESH SPECIES (test code = 74527) NEGATIVE G. VAGINALIS (test code = 96997) POSITIVE T. VAGINALIS (test code = 84984) NEGATIVE VAGINAL PATHOGENS DNA [id number] 00:00:00 Test Item Value Reference Range Interpretation Comments RAMESH SPECIES (test code = 24093) NEGATIVE G. VAGINALIS (test code = 97457) POSITIVE T. VAGINALIS (test code = 70394) NEGATIVE VAGINAL PATHOGENS DNA [id number] 00:00:00 Test Item Value Reference Range Interpretation Comments RAMESH SPECIES (test code = 10773) NEGATIVE G. VAGINALIS (test code = 20575) POSITIVE T. VAGINALIS (test code = 31637) NEGATIVE VAGINAL PATHOGENS DNA [id number] 00:00:00 Test Item Value Reference Range Interpretation Comments RAMESH SPECIES (test code = 39161) NEGATIVE G. VAGINALIS (test code = 82590) POSITIVE T. VAGINALIS (test code = 21308) NEGATIVE VAGINAL PATHOGENS DNA [id number] 00:00:00 Test Item Value Reference Range Interpretation Comments RAMESH SPECIES (test code = ) NEGATIVE G. VAGINALIS (test code = 52613) POSITIVE T. VAGINALIS (test code = 42114) NEGATIVE VAGINAL PATHOGENS DNA [id number] 00:00:00 Test Item Value Reference Range Interpretation Comments RAMESH SPECIES (test code = 86157) NEGATIVE G. VAGINALIS (test code = 76630) POSITIVE T. VAGINALIS (test code = 90981) NEGATIVE VAGINAL PATHOGENS DNA [id number] 00:00:00 Test Item Value Reference Range Interpretation Comments RAMESH SPECIES (test code = 10162) NEGATIVE G. VAGINALIS (test code = 32529) POSITIVE T. VAGINALIS (test code = 56433) NEGATIVE VAGINAL PATHOGENS DNA [id number] 00:00:00 Test Item Value Reference Range Interpretation Comments RAMESH SPECIES (test code = 32145) NEGATIVE G. VAGINALIS (test code = 56947) POSITIVE T. VAGINALIS (test code = 04773) NEGATIVE VAGINAL PATHOGENS DNA [id number] 00:00:00 Test Item Value Reference Range Interpretation Comments RAMESH SPECIES (test code = 27718) NEGATIVE G. VAGINALIS (test code = 79744) POSITIVE T. VAGINALIS (test code = 25609) NEGATIVE VAGINAL PATHOGENS DNA [id number] 00:00:00 Test Item Value Reference Range Interpretation Comments RAMESH SPECIES (test code = 72916) NEGATIVE G. VAGINALIS (test code = 87795) POSITIVE T. VAGINALIS (test code = 41068) NEGATIVE VAGINAL PATHOGENS DNA [id number] 00:00:00 Test Item Value Reference Range Interpretation Comments RAMESH SPECIES (test code = 26510) NEGATIVE G. VAGINALIS (test code = 96171) POSITIVE T. VAGINALIS (test code = 27901) NEGATIVE VAGINAL PATHOGENS DNA [id number] 00:00:00 Test Item Value Reference Range Interpretation Comments RAMESH SPECIES (test code = 24397) NEGATIVE G. VAGINALIS (test code = 43597) POSITIVE T. VAGINALIS (test code = 56517) NEGATIVE VAGINAL PATHOGENS DNA [id number] 00:00:00 Test Item Value Reference Range Interpretation Comments RAMESH SPECIES (test code = 74440) NEGATIVE G. VAGINALIS (test code = 01936) POSITIVE T. VAGINALIS (test code = 36297) NEGATIVE VAGINAL PATHOGENS DNA [id number] 00:00:00 Test Item Value Reference Range Interpretation Comments RAMESH SPECIES (test code = 13691) NEGATIVE G. VAGINALIS (test code = 21207) POSITIVE T. VAGINALIS (test code = 56856) NEGATIVE VAGINAL PATHOGENS DNA [id number] 00:00:00 Test Item Value Reference Range Interpretation Comments RAMESH SPECIES (test code = 83689) NEGATIVE G. VAGINALIS (test code = 62504) POSITIVE T. VAGINALIS (test code = 04785) NEGATIVE VAGINAL PATHOGENS DNA [id number] 00:00:00 Test Item Value Reference Range Interpretation Comments RAMESH SPECIES (test code = 64493) NEGATIVE G. VAGINALIS (test code = 38359) POSITIVE T. VAGINALIS (test code = 65165) NEGATIVE CULTURE, HERPES [id number] 00:00:00 Test Item Value Reference Range Interpretation Comments SPECIMEN SOURCE (test code TEST NOT PERFORMED = 63189) HERPES CULTURE (test code TEST NOT PERFORMED = 3533) CULTURE, HERPES [id number] 00:00:00 Test Item Value Reference Range Interpretation Comments SPECIMEN SOURCE (test code TEST NOT PERFORMED = 44402) HERPES CULTURE (test code TEST NOT PERFORMED = 3533) CULTURE, HERPES [id number] 00:00:00 Test Item Value Reference Range Interpretation Comments SPECIMEN SOURCE (test code TEST NOT PERFORMED = 90830) HERPES CULTURE (test code TEST NOT PERFORMED = 3533) CULTURE, HERPES [id number] 00:00:00 Test Item Value Reference Range Interpretation Comments SPECIMEN SOURCE (test code TEST NOT PERFORMED = 88001) HERPES CULTURE (test code TEST NOT PERFORMED = 3533) CULTURE, HERPES [id number] 00:00:00 Test Item Value Reference Range Interpretation Comments SPECIMEN SOURCE (test code TEST NOT PERFORMED = 68227) HERPES CULTURE (test code TEST NOT PERFORMED = 3533) CULTURE, HERPES [id number] 00:00:00 Test Item Value Reference Range Interpretation Comments SPECIMEN SOURCE (test code TEST NOT PERFORMED = 65505) HERPES CULTURE (test code TEST NOT PERFORMED = 3533) CULTURE, HERPES [id number] 00:00:00 Test Item Value Reference Range Interpretation Comments SPECIMEN SOURCE (test code TEST NOT PERFORMED = 82600) HERPES CULTURE (test code TEST NOT PERFORMED = 3533) CULTURE, HERPES [id number] 00:00:00 Test Item Value Reference Range Interpretation Comments SPECIMEN SOURCE (test code TEST NOT PERFORMED = 39111) HERPES CULTURE (test code TEST NOT PERFORMED = 3533) CULTURE, HERPES [id number] 00:00:00 Test Item Value Reference Range Interpretation Comments SPECIMEN SOURCE (test code TEST NOT PERFORMED = 42352) HERPES CULTURE (test code TEST NOT PERFORMED = 3533) CULTURE, HERPES [id number] 00:00:00 Test Item Value Reference Range Interpretation Comments SPECIMEN SOURCE (test code TEST NOT PERFORMED = 64846) HERPES CULTURE (test code TEST NOT PERFORMED = 3533) CULTURE, HERPES [id number] 00:00:00 Test Item Value Reference Range Interpretation Comments SPECIMEN SOURCE (test code TEST NOT PERFORMED = 74897) HERPES CULTURE (test code TEST NOT PERFORMED = 3533) CULTURE, HERPES [id number] 00:00:00 Test Item Value Reference Range Interpretation Comments SPECIMEN SOURCE (test code TEST NOT PERFORMED = 99385) HERPES CULTURE (test code TEST NOT PERFORMED = 3533) CULTURE, HERPES [id number] 00:00:00 Test Item Value Reference Range Interpretation Comments SPECIMEN SOURCE (test code TEST NOT PERFORMED = 42662) HERPES CULTURE (test code TEST NOT PERFORMED = 3533) CULTURE, HERPES [id number] 00:00:00 Test Item Value Reference Range Interpretation Comments SPECIMEN SOURCE (test code TEST NOT PERFORMED = 80950) HERPES CULTURE (test code TEST NOT PERFORMED = 3533) CULTURE, HERPES [id number] 00:00:00 Test Item Value Reference Range Interpretation Comments SPECIMEN SOURCE (test code TEST NOT PERFORMED = 09732) HERPES CULTURE (test code TEST NOT PERFORMED = 3533) CULTURE, HERPES [id number] 00:00:00 Test Item Value Reference Range Interpretation Comments SPECIMEN SOURCE (test code TEST NOT PERFORMED = 43404) HERPES CULTURE (test code TEST NOT PERFORMED = 3533) CULTURE, HERPES [id number] 00:00:00 Test Item Value Reference Range Interpretation Comments SPECIMEN SOURCE (test code TEST NOT PERFORMED = 13434) HERPES CULTURE (test code TEST NOT PERFORMED = 3533) CULTURE, HERPES [id number] 00:00:00 Test Item Value Reference Range Interpretation Comments SPECIMEN SOURCE (test code TEST NOT PERFORMED = 71720) HERPES CULTURE (test code TEST NOT PERFORMED = 3533) CULTURE, HERPES [id number] 00:00:00 Test Item Value Reference Range Interpretation Comments SPECIMEN SOURCE (test code TEST NOT PERFORMED = 97654) HERPES CULTURE (test code TEST NOT PERFORMED = 3533) CULTURE, HERPES [id number] 00:00:00 Test Item Value Reference Range Interpretation Comments SPECIMEN SOURCE (test code TEST NOT PERFORMED = 80180) HERPES CULTURE (test code TEST NOT PERFORMED = 3533) CULTURE, HERPES [id number] 00:00:00 Test Item Value Reference Range Interpretation Comments SPECIMEN SOURCE (test code TEST NOT PERFORMED = 09736) HERPES CULTURE (test code TEST NOT PERFORMED = 3533) GC AND CHLAMYDIA AMPLIFIED, [id number] 00:00:00 Test Item Value Reference Range Interpretation Comments GONORRHEA, TMA (test code = 80250) NEGATIVE CHLAMYDIA, TMA (test code = 27948) NEGATIVE GC AND CHLAMYDIA AMPLIFIED, [id number] 00:00:00 Test Item Value Reference Range Interpretation Comments GONORRHEA, TMA (test code = 32168) NEGATIVE CHLAMYDIA, TMA (test code = 93524) NEGATIVE PAP TEST, THINPREP, [id number] 00:00:00 Test Item Value Reference Range Interpretation Comments SOURCE: (test code = Cervical/Endocervical 8001) SLIDES: (test code = 1 8011) LMP: (test code = 8021) 10/10/2018 SPECIMEN ADEQUACY: (NOTE) (test code = 19218) INTERPRETATION: (test NILM/NO EPITH. code = 49004) ABNORMALITY;SEE BELOW ORDER PACKER: (test RENAE CARCT(ASCP) code = 8101) LOCATION: (test code = (NOTE) 30041) CPT: (test code = 8140) (NOTE) PAP TEST, THINPREP, [id number] 00:00:00 Test Item Value Reference Range Interpretation Comments SOURCE: (test code = Cervical/Endocervical 8001) SLIDES: (test code = 1 8011) LMP: (test code = 8021) 10/10/2018 SPECIMEN ADEQUACY: (NOTE) (test code = 18716) INTERPRETATION: (test NILM/NO EPITH. code = 91086) ABNORMALITY;SEE BELOW ORDER PACKER: (test RENAE CARCT(ASCP) code = 8101) LOCATION: (test code = (NOTE) 07944) CPT: (test code = 8140) (NOTE) HIV AB/AG COMBO RFLX [id number] 00:00:00 Test Item Value Reference Range Interpretation Comments HIV 1/2 4TH GEN, RFLX CONF (test NON-REACTIVE code = 3514) HIV AB/AG COMBO RFLX [id number] 00:00:00 Test Item Value Reference Range Interpretation Comments HIV 1/2 4TH GEN, RFLX CONF (test NON-REACTIVE code = 3514) HPV HIGH RISK WITH GENOTYPE, [id number] 00:00:00 Test Item Value Reference Range Interpretation Comments HPV HIGH RISK INTERP (test code = NEGATIVE 96405) HPV 16 (test code = 49730) NEGATIVE HPV 18 (test code = 24680) NEGATIVE HPV, HR, OTHER GENOTYPES (test code NEGATIVE = 97022) [id number] 00:00:00 Test Item Value Reference Range Interpretation Comments TSH, THIRD GENERATION (test code 2.250 UIU/ML = 2821) [id number] 00:00:00 Test Item Value Reference Range Interpretation Comments TSH, THIRD GENERATION (test code 2.250 UIU/ML = 2821) HPV HIGH RISK WITH GENOTYPE, [id number] 00:00:00 Test Item Value Reference Range Interpretation Comments HPV HIGH RISK INTERP (test code = NEGATIVE 66031) HPV 16 (test code = 14987) NEGATIVE HPV 18 (test code = 70743) NEGATIVE HPV, HR, OTHER GENOTYPES (test code NEGATIVE = 65461) [id number] 00:00:00 Test Item Value Reference Range Interpretation Comments TSH, THIRD GENERATION (test code 2.250 UIU/ML = 2821) GC AND CHLAMYDIA AMPLIFIED, [id number] 00:00:00 Test Item Value Reference Range Interpretation Comments GONORRHEA, TMA (test code = 69351) NEGATIVE CHLAMYDIA, TMA (test code = 69909) NEGATIVE GC AND CHLAMYDIA AMPLIFIED, [id number] 00:00:00 Test Item Value Reference Range Interpretation Comments GONORRHEA, TMA (test code = 52121) NEGATIVE CHLAMYDIA, TMA (test code = 19380) NEGATIVE PAP TEST, THINPREP, [id number] 00:00:00 Test Item Value Reference Range Interpretation Comments SOURCE: (test code = Cervical/Endocervical 8001) SLIDES: (test code = 1 8011) LMP: (test code = 8021) 10/10/2018 SPECIMEN ADEQUACY: (NOTE) (test code = 09329) INTERPRETATION: (test NILM/NO EPITH. code = 96055) ABNORMALITY;SEE BELOW ORDER PACKER: (test NOLVIA [place](ASCP) code = 8101) LOCATION: (test code = (NOTE) 33552) CPT: (test code = 8140) (NOTE) HIV AB/AG COMBO RFLX [id number] 00:00:00 Test Item Value Reference Range Interpretation Comments HIV 1/2 4TH GEN, RFLX CONF (test NON-REACTIVE code = 3514) PAP TEST, THINPREP, [id number] 00:00:00 Test Item Value Reference Range Interpretation Comments SOURCE: (test code = Cervical/Endocervical 8001) SLIDES: (test code = 1 8011) LMP: (test code = 8021) 10/10/2018 SPECIMEN ADEQUACY: (NOTE) (test code = 01498) INTERPRETATION: (test NILM/NO EPITH. code = 02957) ABNORMALITY;SEE BELOW ORDER PACKER: (test NOLVIA [place](ASCP) code = 8101) LOCATION: (test code = (NOTE) 92703) CPT: (test code = 8140) (NOTE) HIV AB/AG COMBO RFLX [id number] 00:00:00 Test Item Value Reference Range Interpretation Comments HIV 1/2 4TH GEN, RFLX CONF (test NON-REACTIVE code = 3514) HPV HIGH RISK WITH GENOTYPE, [id number] 00:00:00 Test Item Value Reference Range Interpretation Comments HPV HIGH RISK INTERP (test code = NEGATIVE 80731) HPV 16 (test code = 35612) NEGATIVE HPV 18 (test code = 40156) NEGATIVE HPV, HR, OTHER GENOTYPES (test code NEGATIVE = 63138) [id number] 00:00:00 Test Item Value Reference Range Interpretation Comments TSH, THIRD GENERATION (test code 2.250 UIU/ML = 2821) [id number] 00:00:00 Test Item Value Reference Range Interpretation Comments TSH, THIRD GENERATION (test code 2.250 UIU/ML = 2821) HPV HIGH RISK WITH GENOTYPE, [id number] 00:00:00 Test Item Value Reference Range Interpretation Comments HPV HIGH RISK INTERP (test code = NEGATIVE 70276) HPV 16 (test code = 07910) NEGATIVE HPV 18 (test code = 00005) NEGATIVE HPV, HR, OTHER GENOTYPES (test code NEGATIVE = 83164) [id number] 00:00:00 Test Item Value Reference Range Interpretation Comments TSH, THIRD GENERATION (test code 2.250 UIU/ML = 2821) GC AND CHLAMYDIA AMPLIFIED, [id number] 00:00:00 Test Item Value Reference Range Interpretation Comments GONORRHEA, TMA (test code = 39976) NEGATIVE CHLAMYDIA, TMA (test code = 24395) NEGATIVE GC AND CHLAMYDIA AMPLIFIED, [id number] 00:00:00 Test Item Value Reference Range Interpretation Comments GONORRHEA, TMA (test code = 19201) NEGATIVE CHLAMYDIA, TMA (test code = 07049) NEGATIVE HIV AB/AG COMBO RFLX [id number] 00:00:00 Test Item Value Reference Range Interpretation Comments HIV 1/2 4TH GEN, RFLX CONF (test NON-REACTIVE code = 3514) PAP TEST, THINPREP, [id number] 00:00:00 Test Item Value Reference Range Interpretation Comments SOURCE: (test code = Cervical/Endocervical 8001) SLIDES: (test code = 1 8011) LMP: (test code = 8021) 10/10/2018 SPECIMEN ADEQUACY: (NOTE) (test code = 49364) INTERPRETATION: (test NILM/NO EPITH. code = 06263) ABNORMALITY;SEE BELOW ORDER PACKER: (test RENAE CARCT(ASCP) code = 8101) LOCATION: (test code = (NOTE) 49749) CPT: (test code = 8140) (NOTE) PAP TEST, THINPREP, [id number] 00:00:00 Test Item Value Reference Range Interpretation Comments SOURCE: (test code = Cervical/Endocervical 8001) SLIDES: (test code = 1 8011) LMP: (test code = 8021) 10/10/2018 SPECIMEN ADEQUACY: (NOTE) (test code = 89978) INTERPRETATION: (test NILM/NO EPITH. code = 97566) ABNORMALITY;SEE BELOW ORDER PACKER: (test RENAE CARCT(ASCP) code = 8101) LOCATION: (test code = (NOTE) 18346) CPT: (test code = 8140) (NOTE) HIV AB/AG COMBO RFLX [id number] 00:00:00 Test Item Value Reference Range Interpretation Comments HIV 1/2 4TH GEN, RFLX CONF (test NON-REACTIVE code = 3514) [id number] 00:00:00 Test Item Value Reference Range Interpretation Comments TSH, THIRD GENERATION (test code 2.250 UIU/ML = 2821) [id number] 00:00:00 Test Item Value Reference Range Interpretation Comments TSH, THIRD GENERATION (test code 2.250 UIU/ML = 2821) [id number] 00:00:00 Test Item Value Reference Range Interpretation Comments TSH, THIRD GENERATION (test code 2.250 UIU/ML = 2821) HPV HIGH RISK WITH GENOTYPE, [id number] 00:00:00 Test Item Value Reference Range Interpretation Comments HPV HIGH RISK INTERP (test code = NEGATIVE 35508) HPV 16 (test code = 10659) NEGATIVE HPV 18 (test code = 34257) NEGATIVE HPV, HR, OTHER GENOTYPES (test code NEGATIVE = 34327) HPV HIGH RISK WITH GENOTYPE, [id number] 00:00:00 Test Item Value Reference Range Interpretation Comments HPV HIGH RISK INTERP (test code = NEGATIVE 13141) HPV 16 (test code = 37319) NEGATIVE HPV 18 (test code = 24992) NEGATIVE HPV, HR, OTHER GENOTYPES (test code NEGATIVE = 40408) GC AND CHLAMYDIA AMPLIFIED, [id number] 00:00:00 Test Item Value Reference Range Interpretation Comments GONORRHEA, TMA (test code = 38518) NEGATIVE CHLAMYDIA, TMA (test code = 32493) NEGATIVE GC AND CHLAMYDIA AMPLIFIED, [id number] 00:00:00 Test Item Value Reference Range Interpretation Comments GONORRHEA, TMA (test code = 79644) NEGATIVE CHLAMYDIA, TMA (test code = 35001) NEGATIVE HIV AB/AG COMBO RFLX [id number] 00:00:00 Test Item Value Reference Range Interpretation Comments HIV 1/2 4TH GEN, RFLX CONF (test NON-REACTIVE code = 3514) PAP TEST, THINPREP, [id number] 00:00:00 Test Item Value Reference Range Interpretation Comments SOURCE: (test code = Cervical/Endocervical 8001) SLIDES: (test code = 1 8011) LMP: (test code = 8021) 10/10/2018 SPECIMEN ADEQUACY: (NOTE) (test code = 77221) INTERPRETATION: (test NILM/NO EPITH. code = 41032) ABNORMALITY;SEE BELOW ORDER PACKER: (test NOLVIA [place](ASCP) code = 8101) LOCATION: (test code = (NOTE) 30623) CPT: (test code = 8140) (NOTE) PAP TEST, THINPREP, [id number] 00:00:00 Test Item Value Reference Range Interpretation Comments SOURCE: (test code = Cervical/Endocervical 8001) SLIDES: (test code = 1 8011) LMP: (test code = 8021) 10/10/2018 SPECIMEN ADEQUACY: (NOTE) (test code = 22099) INTERPRETATION: (test NILM/NO EPITH. code = 06932) ABNORMALITY;SEE BELOW ORDER PACKER: (test NOLVIA [place](ASCP) code = 8101) LOCATION: (test code = (NOTE) 24747) CPT: (test code = 8140) (NOTE) HIV AB/AG COMBO RFLX [id number] 00:00:00 Test Item Value Reference Range Interpretation Comments HIV 1/2 4TH GEN, RFLX CONF (test NON-REACTIVE code = 3514) HPV HIGH RISK WITH GENOTYPE, [id number] 00:00:00 Test Item Value Reference Range Interpretation Comments HPV HIGH RISK INTERP (test code = NEGATIVE 08828) HPV 16 (test code = 25592) NEGATIVE HPV 18 (test code = 77853) NEGATIVE HPV, HR, OTHER GENOTYPES (test code NEGATIVE = 90191) [id number] 00:00:00 Test Item Value Reference Range Interpretation Comments TSH, THIRD GENERATION (test code 2.250 UIU/ML = 2821) [id number] 00:00:00 Test Item Value Reference Range Interpretation Comments TSH, THIRD GENERATION (test code 2.250 UIU/ML = 2821) [id number] 00:00:00 Test Item Value Reference Range Interpretation Comments TSH, THIRD GENERATION (test code 2.250 UIU/ML = 2821) HPV HIGH RISK WITH GENOTYPE, [id number] 00:00:00 Test Item Value Reference Range Interpretation Comments HPV HIGH RISK INTERP (test code = NEGATIVE 36597) HPV 16 (test code = 07689) NEGATIVE HPV 18 (test code = 73933) NEGATIVE HPV, HR, OTHER GENOTYPES (test code NEGATIVE = 40151) GC AND CHLAMYDIA AMPLIFIED, [id number] 00:00:00 Test Item Value Reference Range Interpretation Comments GONORRHEA, TMA (test code = 69182) NEGATIVE CHLAMYDIA, TMA (test code = 76669) NEGATIVE GC AND CHLAMYDIA AMPLIFIED, [id number] 00:00:00 Test Item Value Reference Range Interpretation Comments GONORRHEA, TMA (test code = 13341) NEGATIVE CHLAMYDIA, TMA (test code = 72947) NEGATIVE HIV AB/AG COMBO RFLX [id number] 00:00:00 Test Item Value Reference Range Interpretation Comments HIV 1/2 4TH GEN, RFLX CONF (test NON-REACTIVE code = 3514) PAP TEST, THINPREP, [id number] 00:00:00 Test Item Value Reference Range Interpretation Comments SOURCE: (test code = Cervical/Endocervical 8001) SLIDES: (test code = 1 8011) LMP: (test code = 8021) 10/10/2018 SPECIMEN ADEQUACY: (NOTE) (test code = 52555) INTERPRETATION: (test NILM/NO EPITH. code = 53164) ABNORMALITY;SEE BELOW ORDER PACKER: (test RENAE CAR,CT(ASCP) code = 8101) LOCATION: (test code = (NOTE) 38259) CPT: (test code = 8140) (NOTE) PAP TEST, THINPREP, [id number] 00:00:00 Test Item Value Reference Range Interpretation Comments SOURCE: (test code = Cervical/Endocervical 8001) SLIDES: (test code = 1 8011) LMP: (test code = 8021) 10/10/2018 SPECIMEN ADEQUACY: (NOTE) (test code = 67475) INTERPRETATION: (test NILM/NO EPITH. code = 32684) ABNORMALITY;SEE BELOW ORDER PACKER: (test RENAE CARCT(ASCP) code = 8101) LOCATION: (test code = (NOTE) 68746) CPT: (test code = 8140) (NOTE) HIV AB/AG COMBO RFLX [id number] 00:00:00 Test Item Value Reference Range Interpretation Comments HIV 1/2 4TH GEN, RFLX CONF (test NON-REACTIVE code = 3514) [id number] 00:00:00 Test Item Value Reference Range Interpretation Comments TSH, THIRD GENERATION (test code 2.250 UIU/ML = 2821) [id number] 00:00:00 Test Item Value Reference Range Interpretation Comments TSH, THIRD GENERATION (test code 2.250 UIU/ML = 2821) HPV HIGH RISK WITH GENOTYPE, [id number] 00:00:00 Test Item Value Reference Range Interpretation Comments HPV HIGH RISK INTERP (test code = NEGATIVE 97979) HPV 16 (test code = 04672) NEGATIVE HPV 18 (test code = 03165) NEGATIVE HPV, HR, OTHER GENOTYPES (test code NEGATIVE = 69926) HPV HIGH RISK WITH GENOTYPE, [id number] 00:00:00 Test Item Value Reference Range Interpretation Comments HPV HIGH RISK INTERP (test code = NEGATIVE 74765) HPV 16 (test code = 46450) NEGATIVE HPV 18 (test code = 67756) NEGATIVE HPV, HR, OTHER GENOTYPES (test code NEGATIVE = 46733) [id number] 00:00:00 Test Item Value Reference Range Interpretation Comments TSH, THIRD GENERATION (test code 2.250 UIU/ML = 2821) GC AND CHLAMYDIA AMPLIFIED, [id number] 00:00:00 Test Item Value Reference Range Interpretation Comments GONORRHEA, TMA (test code = 15773) NEGATIVE CHLAMYDIA, TMA (test code = 51276) NEGATIVE GC AND CHLAMYDIA AMPLIFIED, [id number] 00:00:00 Test Item Value Reference Range Interpretation Comments GONORRHEA, TMA (test code = 71215) NEGATIVE CHLAMYDIA, TMA (test code = 62822) NEGATIVE PAP TEST, THINPREP, [id number] 00:00:00 Test Item Value Reference Range Interpretation Comments SOURCE: (test code = Cervical/Endocervical 8001) SLIDES: (test code = 1 8011) LMP: (test code = 8021) 10/10/2018 SPECIMEN ADEQUACY: (NOTE) (test code = 73128) INTERPRETATION: (test NILM/NO EPITH. code = 35544) ABNORMALITY;SEE BELOW ORDER PACKER: (test NOLVIA DE [place](ASCP) code = 8101) LOCATION: (test code = (NOTE) 65006) CPT: (test code = 8140) (NOTE) HIV AB/AG COMBO RFLX [id number] 00:00:00 Test Item Value Reference Range Interpretation Comments HIV 1/2 4TH GEN, RFLX CONF (test NON-REACTIVE code = 3514) HIV AB/AG COMBO RFLX [id number] 00:00:00 Test Item Value Reference Range Interpretation Comments HIV 1/2 4TH GEN, RFLX CONF (test NON-REACTIVE code = 3514) PAP TEST, THINPREP, [id number] 00:00:00 Test Item Value Reference Range Interpretation Comments SOURCE: (test code = Cervical/Endocervical 8001) SLIDES: (test code = 1 8011) LMP: (test code = 8021) 10/10/2018 SPECIMEN ADEQUACY: (NOTE) (test code = 37531) INTERPRETATION: (test NILM/NO EPITH. code = 00579) ABNORMALITY;SEE BELOW ORDER PACKER: (test NOLVIA DE [place](ASCP) code = 8101) LOCATION: (test code = (NOTE) 41517) CPT: (test code = 8140) (NOTE) HPV HIGH RISK WITH GENOTYPE, [id number] 00:00:00 Test Item Value Reference Range Interpretation Comments HPV HIGH RISK INTERP (test code = NEGATIVE 56633) HPV 16 (test code = 47163) NEGATIVE HPV 18 (test code = 92428) NEGATIVE HPV, HR, OTHER GENOTYPES (test code NEGATIVE = 82112) [id number] 00:00:00 Test Item Value Reference Range Interpretation Comments TSH, THIRD GENERATION (test code 2.250 UIU/ML = 2821) HPV HIGH RISK WITH GENOTYPE, [id number] 00:00:00 Test Item Value Reference Range Interpretation Comments HPV HIGH RISK INTERP (test code = NEGATIVE 20945) HPV 16 (test code = 97828) NEGATIVE HPV 18 (test code = 61951) NEGATIVE HPV, HR, OTHER GENOTYPES (test code NEGATIVE = 72377) [id number] 00:00:00 Test Item Value Reference Range Interpretation Comments TSH, THIRD GENERATION (test code 2.250 UIU/ML = 2821) [id number] 00:00:00 Test Item Value Reference Range Interpretation Comments TSH, THIRD GENERATION (test code 2.250 UIU/ML = 2821) GC AND CHLAMYDIA AMPLIFIED, [id number] 00:00:00 Test Item Value Reference Range Interpretation Comments GONORRHEA, TMA (test code = 54567) NEGATIVE CHLAMYDIA, TMA (test code = 13351) NEGATIVE GC AND CHLAMYDIA AMPLIFIED, [id number] 00:00:00 Test Item Value Reference Range Interpretation Comments GONORRHEA, TMA (test code = 02482) NEGATIVE CHLAMYDIA, TMA (test code = 07739) NEGATIVE PAP TEST, THINPREP, [id number] 00:00:00 Test Item Value Reference Range Interpretation Comments SOURCE: (test code = Cervical/Endocervical 8001) SLIDES: (test code = 1 8011) LMP: (test code = 8021) 10/10/2018 SPECIMEN ADEQUACY: (NOTE) (test code = 11429) INTERPRETATION: (test NILM/NO EPITH. code = 11475) ABNORMALITY;SEE BELOW ORDER PACKER: (test [place](ASCP) code = 8101) LOCATION: (test code = (NOTE) 39946) CPT: (test code = 8140) (NOTE) HIV AB/AG COMBO RFLX [id number] 00:00:00 Test Item Value Reference Range Interpretation Comments HIV 1/2 4TH GEN, RFLX CONF (test NON-REACTIVE code = 3514) HIV AB/AG COMBO RFLX [id number] 00:00:00 Test Item Value Reference Range Interpretation Comments HIV 1/2 4TH GEN, RFLX CONF (test NON-REACTIVE code = 3514) PAP TEST, THINPREP, [id number] 00:00:00 Test Item Value Reference Range Interpretation Comments SOURCE: (test code = Cervical/Endocervical 8001) SLIDES: (test code = 1 8011) LMP: (test code = 8021) 10/10/2018 SPECIMEN ADEQUACY: (NOTE) (test code = 68536) INTERPRETATION: (test NILM/NO EPITH. code = 38166) ABNORMALITY;SEE BELOW ORDER PACKER: (test [place] [place](ASCP) code = 8101) LOCATION: (test code = (NOTE) 76720) CPT: (test code = 8140) (NOTE) HPV HIGH RISK WITH GENOTYPE, [id number] 00:00:00 Test Item Value Reference Range Interpretation Comments HPV HIGH RISK INTERP (test code = NEGATIVE 36671) HPV 16 (test code = 83305) NEGATIVE HPV 18 (test code = 51304) NEGATIVE HPV, HR, OTHER GENOTYPES (test code NEGATIVE = 32934) [id number] 00:00:00 Test Item Value Reference Range Interpretation Comments TSH, THIRD GENERATION (test code 2.250 UIU/ML = 2821) HPV HIGH RISK WITH GENOTYPE, [id number] 00:00:00 Test Item Value Reference Range Interpretation Comments HPV HIGH RISK INTERP (test code = NEGATIVE 97709) HPV 16 (test code = 90302) NEGATIVE HPV 18 (test code = 87453) NEGATIVE HPV, HR, OTHER GENOTYPES (test code NEGATIVE = 10204) [id number] 00:00:00 Test Item Value Reference Range Interpretation Comments TSH, THIRD GENERATION (test code 2.250 UIU/ML = 2821) [id number] 00:00:00 Test Item Value Reference Range Interpretation Comments TSH, THIRD GENERATION (test code 2.250 UIU/ML = 2821) GC AND CHLAMYDIA AMPLIFIED, [id number] 00:00:00 Test Item Value Reference Range Interpretation Comments GONORRHEA, TMA (test code = 04861) NEGATIVE CHLAMYDIA, TMA (test code = 85298) NEGATIVE GC AND CHLAMYDIA AMPLIFIED, [id number] 00:00:00 Test Item Value Reference Range Interpretation Comments GONORRHEA, TMA (test code = 99960) NEGATIVE CHLAMYDIA, TMA (test code = 00283) NEGATIVE GC AND CHLAMYDIA AMPLIFIED, [id number] 00:00:00 Test Item Value Reference Range Interpretation Comments GONORRHEA, TMA (test code = 47524) NEGATIVE CHLAMYDIA, TMA (test code = 10156) NEGATIVE PAP TEST, THINPREP, [id number] 00:00:00 Test Item Value Reference Range Interpretation Comments SOURCE: (test code = Cervical/Endocervical 8001) SLIDES: (test code = 1 8011) LMP: (test code = 8021) 10/10/2018 SPECIMEN ADEQUACY: (NOTE) (test code = 31158) INTERPRETATION: (test NILM/NO EPITH. code = 32645) ABNORMALITY;SEE BELOW ORDER PACKER: (test [place] [place](ASCP) code = 8101) LOCATION: (test code = (NOTE) 61810) CPT: (test code = 8140) (NOTE) HIV AB/AG COMBO RFLX [id number] 00:00:00 Test Item Value Reference Range Interpretation Comments HIV 1/2 4TH GEN, RFLX CONF (test NON-REACTIVE code = 3514) HIV AB/AG COMBO RFLX [id number] 00:00:00 Test Item Value Reference Range Interpretation Comments HIV 1/2 4TH GEN, RFLX CONF (test NON-REACTIVE code = 3514) HIV AB/AG COMBO RFLX [id number] 00:00:00 Test Item Value Reference Range Interpretation Comments HIV 1/2 4TH GEN, RFLX CONF (test NON-REACTIVE code = 3514) PAP TEST, THINPREP, [id number] 00:00:00 Test Item Value Reference Range Interpretation Comments SOURCE: (test code = Cervical/Endocervical 8001) SLIDES: (test code = 1 8011) LMP: (test code = 8021) 10/10/2018 SPECIMEN ADEQUACY: (NOTE) (test code = 68056) INTERPRETATION: (test NILM/NO EPITH. code = 14710) ABNORMALITY;SEE BELOW ORDER PACKER: (test [place] [place](ASCP) code = 8101) LOCATION: (test code = (NOTE) 51795) CPT: (test code = 8140) (NOTE) [id number] 00:00:00 Test Item Value Reference Range Interpretation Comments TSH, THIRD GENERATION (test code 2.250 UIU/ML = 2821) [id number] 00:00:00 Test Item Value Reference Range Interpretation Comments TSH, THIRD GENERATION (test code 2.250 UIU/ML = 2821) HPV HIGH RISK WITH GENOTYPE, [id number] 00:00:00 Test Item Value Reference Range Interpretation Comments HPV HIGH RISK INTERP (test code = NEGATIVE 07201) HPV 16 (test code = 63711) NEGATIVE HPV 18 (test code = 49567) NEGATIVE HPV, HR, OTHER GENOTYPES (test code NEGATIVE = 35222) [id number] 00:00:00 Test Item Value Reference Range Interpretation Comments TSH, THIRD GENERATION (test code 2.250 UIU/ML = 2821) HPV HIGH RISK WITH GENOTYPE, [id number] 00:00:00 Test Item Value Reference Range Interpretation Comments HPV HIGH RISK INTERP (test code = NEGATIVE 03595) HPV 16 (test code = 65749) NEGATIVE HPV 18 (test code = 69392) NEGATIVE HPV, HR, OTHER GENOTYPES (test code NEGATIVE = 04738) PAP TEST, THINPREP, [id number] 00:00:00 Test Item Value Reference Range Interpretation Comments SOURCE: (test code = Cervical/Endocervical 8001) SLIDES: (test code = 1 8011) LMP: (test code = 8021) 10/10/2018 SPECIMEN ADEQUACY: (NOTE) (test code = 42238) INTERPRETATION: (test NILM/NO EPITH. code = 20522) ABNORMALITY;SEE BELOW ORDER PACKER: (test [facility] [place](ASCP) code = 8101) LOCATION: (test code = (NOTE) 48122) CPT: (test code = 8140) (NOTE) [id number] 00:00:00 Test Item Value Reference Range Interpretation Comments TSH, THIRD GENERATION (test code 2.250 UIU/ML = 2821) [id number] 00:00:00 Test Item Value Reference Range Interpretation Comments TSH, THIRD GENERATION (test code 2.250 UIU/ML = 2821) HPV HIGH RISK WITH GENOTYPE, [id number] 00:00:00 Test Item Value Reference Range Interpretation Comments HPV HIGH RISK INTERP (test code = NEGATIVE 56395) HPV 16 (test code = 36025) NEGATIVE HPV 18 (test code = 27961) NEGATIVE HPV, HR, OTHER GENOTYPES (test code NEGATIVE = 30060) GC AND CHLAMYDIA AMPLIFIED, [id number] 00:00:00 Test Item Value Reference Range Interpretation Comments GONORRHEA, TMA (test code = 65333) NEGATIVE CHLAMYDIA, TMA (test code = 82106) NEGATIVE GC AND CHLAMYDIA AMPLIFIED, [id number] 00:00:00 Test Item Value Reference Range Interpretation Comments GONORRHEA, TMA (test code = 03706) NEGATIVE CHLAMYDIA, TMA (test code = 72295) NEGATIVE PAP TEST, THINPREP, [id number] 00:00:00 Test Item Value Reference Range Interpretation Comments SOURCE: (test code = Cervical/Endocervical 8001) SLIDES: (test code = 1 8011) LMP: (test code = 8021) 10/10/2018 SPECIMEN ADEQUACY: (NOTE) (test code = 85726) INTERPRETATION: (test NILM/NO EPITH. code = 77029) ABNORMALITY;SEE BELOW ORDER PACKER: (test [place] [place](ASCP) code = 8101) LOCATION: (test code = (NOTE) 63793) CPT: (test code = 8140) (NOTE) HIV AB/AG COMBO RFLX [id number] 00:00:00 Test Item Value Reference Range Interpretation Comments HIV 1/2 4TH GEN, RFLX CONF (test NON-REACTIVE code = 3514) HIV AB/AG COMBO RFLX [id number] 00:00:00 Test Item Value Reference Range Interpretation Comments HIV 1/2 4TH GEN, RFLX CONF (test NON-REACTIVE code = 3514) PAP TEST, THINPREP, [id number] 00:00:00 Test Item Value Reference Range Interpretation Comments SOURCE: (test code = Cervical/Endocervical 8001) SLIDES: (test code = 1 8011) LMP: (test code = 8021) 10/10/2018 SPECIMEN ADEQUACY: (NOTE) (test code = 93764) INTERPRETATION: (test NILM/NO EPITH. code = 84424) ABNORMALITY;SEE BELOW ORDER PACKER: (test [place] [place](ASCP) code = 8101) LOCATION: (test code = (NOTE) 22583) CPT: (test code = 8140) (NOTE) [id number] 00:00:00 Test Item Value Reference Range Interpretation Comments TSH, THIRD GENERATION (test code 2.250 UIU/ML = 2821) HPV HIGH RISK WITH GENOTYPE, [id number] 00:00:00 Test Item Value Reference Range Interpretation Comments HPV HIGH RISK INTERP (test code = NEGATIVE 79503) HPV 16 (test code = 34041) NEGATIVE HPV 18 (test code = 59382) NEGATIVE HPV, HR, OTHER GENOTYPES (test code NEGATIVE = 66677) HPV HIGH RISK WITH GENOTYPE, [id number] 00:00:00 Test Item Value Reference Range Interpretation Comments HPV HIGH RISK INTERP (test code = NEGATIVE 50300) HPV 16 (test code = 84725) NEGATIVE HPV 18 (test code = 32351) NEGATIVE HPV, HR, OTHER GENOTYPES (test code NEGATIVE = 23168) [id number] 00:00:00 Test Item Value Reference Range Interpretation Comments TSH, THIRD GENERATION (test code 2.250 UIU/ML = 2821) [id number] 00:00:00 Test Item Value Reference Range Interpretation Comments TSH, THIRD GENERATION (test code 2.250 UIU/ML = 2821) GC AND CHLAMYDIA AMPLIFIED, [id number] 00:00:00 Test Item Value Reference Range Interpretation Comments GONORRHEA, TMA (test code = 39860) NEGATIVE CHLAMYDIA, TMA (test code = 62623) NEGATIVE GC AND CHLAMYDIA AMPLIFIED, [id number] 00:00:00 Test Item Value Reference Range Interpretation Comments GONORRHEA, TMA (test code = 76069) NEGATIVE CHLAMYDIA, TMA (test code = 26325) NEGATIVE PAP TEST, THINPREP, [id number] 00:00:00 Test Item Value Reference Range Interpretation Comments SOURCE: (test code = Cervical/Endocervical 8001) SLIDES: (test code = 1 8011) LMP: (test code = 8021) 10/10/2018 SPECIMEN ADEQUACY: (NOTE) (test code = 12703) INTERPRETATION: (test NILM/NO EPITH. code = 56550) ABNORMALITY;SEE BELOW ORDER PACKER: (test RENAE CARCT(ASCP) code = 8101) LOCATION: (test code = (NOTE) 53607) CPT: (test code = 8140) (NOTE) PAP TEST, THINPREP, [id number] 00:00:00 Test Item Value Reference Range Interpretation Comments SOURCE: (test code = Cervical/Endocervical 8001) SLIDES: (test code = 1 8011) LMP: (test code = 8021) 10/10/2018 SPECIMEN ADEQUACY: (NOTE) (test code = 16424) INTERPRETATION: (test NILM/NO EPITH. code = 15174) ABNORMALITY;SEE BELOW ORDER PACKER: (test RENAE CARCT(ASCP) code = 8101) LOCATION: (test code = (NOTE) 95351) CPT: (test code = 8140) (NOTE) HIV AB/AG COMBO RFLX [id number] 00:00:00 Test Item Value Reference Range Interpretation Comments HIV 1/2 4TH GEN, RFLX CONF (test NON-REACTIVE code = 3514) HIV AB/AG COMBO RFLX [id number] 00:00:00 Test Item Value Reference Range Interpretation Comments HIV 1/2 4TH GEN, RFLX CONF (test NON-REACTIVE code = 3514) HPV HIGH RISK WITH GENOTYPE, [id number] 00:00:00 Test Item Value Reference Range Interpretation Comments HPV HIGH RISK INTERP (test code = NEGATIVE 23467) HPV 16 (test code = 39083) NEGATIVE HPV 18 (test code = 54769) NEGATIVE HPV, HR, OTHER GENOTYPES (test code NEGATIVE = 87555) [id number] 00:00:00 Test Item Value Reference Range Interpretation Comments TSH, THIRD GENERATION (test code 2.250 UIU/ML = 2821) [id number] 00:00:00 Test Item Value Reference Range Interpretation Comments TSH, THIRD GENERATION (test code 2.250 UIU/ML = 2821) HPV HIGH RISK WITH GENOTYPE, [id number] 00:00:00 Test Item Value Reference Range Interpretation Comments HPV HIGH RISK INTERP (test code = NEGATIVE 41782) HPV 16 (test code = 80826) NEGATIVE HPV 18 (test code = 91837) NEGATIVE HPV, HR, OTHER GENOTYPES (test code NEGATIVE = 46192) [id number] 00:00:00 Test Item Value Reference Range Interpretation Comments TSH, THIRD GENERATION (test code 2.250 UIU/ML = 2821) CULTURE, [id number] 00:00:00 Test Item Value Reference Range Interpretation Comments CULTURE, URINE (test SPECIMEN NUMBER: code = 36544) [id number] CULTURE, [id number] 00:00:00 Test Item Value Reference Range Interpretation Comments CULTURE, URINE (test SPECIMEN NUMBER: code = 91794) [id number] CULTURE, [id number] 00:00:00 Test Item Value Reference Range Interpretation Comments CULTURE, URINE (test SPECIMEN NUMBER: code = 57901) [id number] CULTURE, [id number] 00:00:00 Test Item Value Reference Range Interpretation Comments CULTURE, URINE (test SPECIMEN NUMBER: code = 58973) [id number] CULTURE, [id number] 00:00:00 Test Item Value Reference Range Interpretation Comments CULTURE, URINE (test SPECIMEN NUMBER: code = 02676) [id number] CULTURE, [id number] 00:00:00 Test Item Value Reference Range Interpretation Comments CULTURE, URINE (test SPECIMEN NUMBER: code = 12315) [id number] CULTURE, [id number] 00:00:00 Test Item Value Reference Range Interpretation Comments CULTURE, URINE (test SPECIMEN NUMBER: code = 52374) [id number] CULTURE, [id number] 00:00:00 Test Item Value Reference Range Interpretation Comments CULTURE, URINE (test SPECIMEN NUMBER: code = 21467) [id number] CULTURE, [id number] 00:00:00 Test Item Value Reference Range Interpretation Comments CULTURE, URINE (test SPECIMEN NUMBER: code = 04074) [id number] CULTURE, [id number] 00:00:00 Test Item Value Reference Range Interpretation Comments CULTURE, URINE (test SPECIMEN NUMBER: code = 84375) [id number] CULTURE, [id number] 00:00:00 Test Item Value Reference Range Interpretation Comments CULTURE, URINE (test SPECIMEN NUMBER: code = 52002) [id number] CULTURE, [id number] 00:00:00 Test Item Value Reference Range Interpretation Comments CULTURE, URINE (test SPECIMEN NUMBER: code = 08125) [id number] CULTURE, [id number] 00:00:00 Test Item Value Reference Range Interpretation Comments CULTURE, URINE (test SPECIMEN NUMBER: code = 32830) [id number] CULTURE, [id number] 00:00:00 Test Item Value Reference Range Interpretation Comments CULTURE, URINE (test SPECIMEN NUMBER: code = 20582) [id number] CULTURE, [id number] 00:00:00 Test Item Value Reference Range Interpretation Comments CULTURE, URINE (test SPECIMEN NUMBER: code = 24912) [id number] CULTURE, [id number] 00:00:00 Test Item Value Reference Range Interpretation Comments CULTURE, URINE (test SPECIMEN NUMBER: code = 57881) [id number] CULTURE, [id number] 00:00:00 Test Item Value Reference Range Interpretation Comments CULTURE, URINE (test SPECIMEN NUMBER: code = 75282) [id number] CULTURE, [id number] 00:00:00 Test Item Value Reference Range Interpretation Comments CULTURE, URINE (test SPECIMEN NUMBER: code = 58781) [id number] CULTURE, [id number] 00:00:00 Test Item Value Reference Range Interpretation Comments CULTURE, URINE (test SPECIMEN NUMBER: code = 79536) [id number] CULTURE, [id number] 00:00:00 Test Item Value Reference Range Interpretation Comments CULTURE, URINE (test SPECIMEN NUMBER: code = 15770) [id number] CULTURE, [id number] 00:00:00 Test Item Value Reference Range Interpretation Comments CULTURE, URINE (test SPECIMEN NUMBER: code = 31329) [id number] VAGINAL PATHOGENS DNA [id number] 00:00:00 Test Item Value Reference Range Interpretation Comments RAMESH SPECIES (test code = ) NEGATIVE G. VAGINALIS (test code = ) POSITIVE T. VAGINALIS (test code = ) NEGATIVE VAGINAL PATHOGENS DNA [id number] 00:00:00 Test Item Value Reference Range Interpretation Comments RAMESH SPECIES (test code = 20911) NEGATIVE G. VAGINALIS (test code = 81763) POSITIVE T. VAGINALIS (test code = 71960) NEGATIVE VAGINAL PATHOGENS DNA [id number] 00:00:00 Test Item Value Reference Range Interpretation Comments RAMESH SPECIES (test code = 81208) NEGATIVE G. VAGINALIS (test code = 44235) POSITIVE T. VAGINALIS (test code = 57407) NEGATIVE VAGINAL PATHOGENS DNA [id number] 00:00:00 Test Item Value Reference Range Interpretation Comments RAMESH SPECIES (test code = 40406) NEGATIVE G. VAGINALIS (test code = 94465) POSITIVE T. VAGINALIS (test code = 98674) NEGATIVE VAGINAL PATHOGENS DNA [id number] 00:00:00 Test Item Value Reference Range Interpretation Comments RAMESH SPECIES (test code = 24901) NEGATIVE G. VAGINALIS (test code = 97942) POSITIVE T. VAGINALIS (test code = 40319) NEGATIVE VAGINAL PATHOGENS DNA [id number] 00:00:00 Test Item Value Reference Range Interpretation Comments RAMESH SPECIES (test code = 13672) NEGATIVE G. VAGINALIS (test code = 04938) POSITIVE T. VAGINALIS (test code = 26293) NEGATIVE VAGINAL PATHOGENS DNA [id number] 00:00:00 Test Item Value Reference Range Interpretation Comments RAMESH SPECIES (test code = 36596) NEGATIVE G. VAGINALIS (test code = 57719) POSITIVE T. VAGINALIS (test code = 11043) NEGATIVE VAGINAL PATHOGENS DNA [id number] 00:00:00 Test Item Value Reference Range Interpretation Comments RAMESH SPECIES (test code = 42714) NEGATIVE G. VAGINALIS (test code = 57125) POSITIVE T. VAGINALIS (test code = 19259) NEGATIVE VAGINAL PATHOGENS DNA [id number] 00:00:00 Test Item Value Reference Range Interpretation Comments RAMESH SPECIES (test code = 41854) NEGATIVE G. VAGINALIS (test code = 96502) POSITIVE T. VAGINALIS (test code = 27824) NEGATIVE VAGINAL PATHOGENS DNA [id number] 00:00:00 Test Item Value Reference Range Interpretation Comments RAMESH SPECIES (test code = 26187) NEGATIVE G. VAGINALIS (test code = 73975) POSITIVE T. VAGINALIS (test code = 16279) NEGATIVE VAGINAL PATHOGENS DNA [id number] 00:00:00 Test Item Value Reference Range Interpretation Comments RAMESH SPECIES (test code = 66645) NEGATIVE G. VAGINALIS (test code = 29347) POSITIVE T. VAGINALIS (test code = 58514) NEGATIVE VAGINAL PATHOGENS DNA [id number] 00:00:00 Test Item Value Reference Range Interpretation Comments RAMESH SPECIES (test code = 58415) NEGATIVE G. VAGINALIS (test code = 72682) POSITIVE T. VAGINALIS (test code = 59055) NEGATIVE VAGINAL PATHOGENS DNA [id number] 00:00:00 Test Item Value Reference Range Interpretation Comments RAMESH SPECIES (test code = 46026) NEGATIVE G. VAGINALIS (test code = 93429) POSITIVE T. VAGINALIS (test code = 10776) NEGATIVE VAGINAL PATHOGENS DNA [id number] 00:00:00 Test Item Value Reference Range Interpretation Comments RAMESH SPECIES (test code = 69414) NEGATIVE G. VAGINALIS (test code = 63805) POSITIVE T. VAGINALIS (test code = 55790) NEGATIVE VAGINAL PATHOGENS DNA [id number] 00:00:00 Test Item Value Reference Range Interpretation Comments RAMESH SPECIES (test code = 34907) NEGATIVE G. VAGINALIS (test code = 31939) POSITIVE T. VAGINALIS (test code = 64727) NEGATIVE VAGINAL PATHOGENS DNA [id number] 00:00:00 Test Item Value Reference Range Interpretation Comments RAMESH SPECIES (test code = 10294) NEGATIVE G. VAGINALIS (test code = 35928) POSITIVE T. VAGINALIS (test code = 20810) NEGATIVE VAGINAL PATHOGENS DNA [id number] 00:00:00 Test Item Value Reference Range Interpretation Comments RAMESH SPECIES (test code = 10943) NEGATIVE G. VAGINALIS (test code = 81549) POSITIVE T. VAGINALIS (test code = 24651) NEGATIVE VAGINAL PATHOGENS DNA [id number] 00:00:00 Test Item Value Reference Range Interpretation Comments RAMESH SPECIES (test code = 61881) NEGATIVE G. VAGINALIS (test code = 36569) POSITIVE T. VAGINALIS (test code = 43622) NEGATIVE VAGINAL PATHOGENS DNA [id number] 00:00:00 Test Item Value Reference Range Interpretation Comments RAMESH SPECIES (test code = 32881) NEGATIVE G. VAGINALIS (test code = 19401) POSITIVE T. VAGINALIS (test code = 91666) NEGATIVE VAGINAL PATHOGENS DNA [id number] 00:00:00 Test Item Value Reference Range Interpretation Comments RAMESH SPECIES (test code = ) NEGATIVE G. VAGINALIS (test code = 49214) POSITIVE T. VAGINALIS (test code = ) NEGATIVE VAGINAL PATHOGENS DNA [id number] 00:00:00 Test Item Value Reference Range Interpretation Comments RAMESH SPECIES (test code = ) NEGATIVE G. VAGINALIS (test code = 66464) POSITIVE T. VAGINALIS (test code = ) NEGATIVE GC AND CHLAMYDIA, AMPLIFIED, [id number] 00:00:00 Test Item Value Reference Range Interpretation Comments GONORRHEA, TMA (test code = 18759) NEGATIVE CHLAMYDIA, TMA (test code = 87946) NEGATIVE GC AND CHLAMYDIA, AMPLIFIED, [id number] 00:00:00 Test Item Value Reference Range Interpretation Comments GONORRHEA, TMA (test code = 33957) NEGATIVE CHLAMYDIA, TMA (test code = 39684) NEGATIVE GC AND CHLAMYDIA, AMPLIFIED, [id number] 00:00:00 Test Item Value Reference Range Interpretation Comments GONORRHEA, TMA (test code = 12668) NEGATIVE CHLAMYDIA, TMA (test code = 89790) NEGATIVE GC AND CHLAMYDIA, AMPLIFIED, [id number] 00:00:00 Test Item Value Reference Range Interpretation Comments GONORRHEA, TMA (test code = 05441) NEGATIVE CHLAMYDIA, TMA (test code = 24616) NEGATIVE GC AND CHLAMYDIA, AMPLIFIED, [id number] 00:00:00 Test Item Value Reference Range Interpretation Comments GONORRHEA, TMA (test code = 05801) NEGATIVE CHLAMYDIA, TMA (test code = 77266) NEGATIVE GC AND CHLAMYDIA, AMPLIFIED, [id number] 00:00:00 Test Item Value Reference Range Interpretation Comments GONORRHEA, TMA (test code = 48937) NEGATIVE CHLAMYDIA, TMA (test code = 28224) NEGATIVE GC AND CHLAMYDIA, AMPLIFIED, [id number] 00:00:00 Test Item Value Reference Range Interpretation Comments GONORRHEA, TMA (test code = 64079) NEGATIVE CHLAMYDIA, TMA (test code = 12630) NEGATIVE GC AND CHLAMYDIA, AMPLIFIED, [id number] 00:00:00 Test Item Value Reference Range Interpretation Comments GONORRHEA, TMA (test code = 65285) NEGATIVE CHLAMYDIA, TMA (test code = 88438) NEGATIVE GC AND CHLAMYDIA, AMPLIFIED, [id number] 00:00:00 Test Item Value Reference Range Interpretation Comments GONORRHEA, TMA (test code = 35107) NEGATIVE CHLAMYDIA, TMA (test code = 69881) NEGATIVE GC AND CHLAMYDIA, AMPLIFIED, [id number] 00:00:00 Test Item Value Reference Range Interpretation Comments GONORRHEA, TMA (test code = 05981) NEGATIVE CHLAMYDIA, TMA (test code = 56125) NEGATIVE GC AND CHLAMYDIA, AMPLIFIED, [id number] 00:00:00 Test Item Value Reference Range Interpretation Comments GONORRHEA, TMA (test code = 04114) NEGATIVE CHLAMYDIA, TMA (test code = 03604) NEGATIVE GC AND CHLAMYDIA, AMPLIFIED, [id number] 00:00:00 Test Item Value Reference Range Interpretation Comments GONORRHEA, TMA (test code = 39277) NEGATIVE CHLAMYDIA, TMA (test code = 12562) NEGATIVE GC AND CHLAMYDIA, AMPLIFIED, [id number] 00:00:00 Test Item Value Reference Range Interpretation Comments GONORRHEA, TMA (test code = 28831) NEGATIVE CHLAMYDIA, TMA (test code = 96874) NEGATIVE GC AND CHLAMYDIA, AMPLIFIED, [id number] 00:00:00 Test Item Value Reference Range Interpretation Comments GONORRHEA, TMA (test code = 34155) NEGATIVE CHLAMYDIA, TMA (test code = 15783) NEGATIVE GC AND CHLAMYDIA, AMPLIFIED, [id number] 00:00:00 Test Item Value Reference Range Interpretation Comments GONORRHEA, TMA (test code = 38038) NEGATIVE CHLAMYDIA, TMA (test code = 57267) NEGATIVE GC AND CHLAMYDIA, AMPLIFIED, [id number] 00:00:00 Test Item Value Reference Range Interpretation Comments GONORRHEA, TMA (test code = 71768) NEGATIVE CHLAMYDIA, TMA (test code = 83299) NEGATIVE GC AND CHLAMYDIA, AMPLIFIED, [id number] 00:00:00 Test Item Value Reference Range Interpretation Comments GONORRHEA, TMA (test code = 87590) NEGATIVE CHLAMYDIA, TMA (test code = 21087) NEGATIVE GC AND CHLAMYDIA, AMPLIFIED, [id number] 00:00:00 Test Item Value Reference Range Interpretation Comments GONORRHEA, TMA (test code = 74755) NEGATIVE CHLAMYDIA, TMA (test code = 30050) NEGATIVE GC AND CHLAMYDIA, AMPLIFIED, [id number] 00:00:00 Test Item Value Reference Range Interpretation Comments GONORRHEA, TMA (test code = 41211) NEGATIVE CHLAMYDIA, TMA (test code = 89004) NEGATIVE GC AND CHLAMYDIA, AMPLIFIED, [id number] 00:00:00 Test Item Value Reference Range Interpretation Comments GONORRHEA, TMA (test code = 22525) NEGATIVE CHLAMYDIA, TMA (test code = 83164) NEGATIVE GC AND CHLAMYDIA, AMPLIFIED, [id number] 00:00:00 Test Item Value Reference Range Interpretation Comments GONORRHEA, TMA (test code = 89547) NEGATIVE CHLAMYDIA, TMA (test code = 74856) NEGATIVE
[2023-08-21] MEDS ORDERED: DIPHENHYDRAMINE 50 MG/ML VIAL ONE (02:22)
[2023-08-21] MEDS ORDERED: METOCLOPRAMIDE 10 MG/2mL INJ ONE (02:22)
[2023-08-21] MEDS ORDERED: NA CHLORIDE 0.9% 1,000 ML ONE (02:23)
[2023-08-21] MEDS ORDERED: KETOROLAC 30 MG/ML INJ ONE (02:23)
--- NOTE | 2023-08-21 03:54 | EDPHYS ---
Physician Documentation [facility] Name: Aimee Randolph Age: 43 yrs Sex: Female : 1980 Arrival Date: 08/21/2023 Time: 01:35 Bed 5 Private MD: ED Physician Yoni Santos HPI: 08/21 01:56 This 43 yrs old Female presents to ER via Unassigned with complaints of Cough, ec2 Congestion, Headache, BODY ACHES. 01:56 Patient arrives today for URI signs and symptoms. Patient reports she been having ec2 couple days of cough and cold symptoms as well as body aches and headaches, states that she takes NSAID for her chronic back pain. Patient reports some associated nausea without vomiting. Denies any diarrhea symptoms. Patient reports no significant medical problems.. 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 - Social history:: Smoking status: Reported history of juuling and/or vaping. ROS: 01:56 Constitutional: as per hpi ec2 Exam: 01:56 Constitutional: GEN: NAD Head: atraumatic Eyes: EOMI Ears: External ears are normal. ec2 Mouth: No posterior oropharyngeal erythema or exudate appreciated. CV: regular rate LUNGS: no respiratory distress, no wheezes, no rales, no rhonchi ABD: non-distended SKIN: no evidence of rashes MSK: no evidence of trauma NEURO: moves all extremities equally Vital Signs: 01:59 BP 127 / 71; Pulse 64; Resp 18 S; Temp 98.1(O); Pulse Ox 99% on R/A; Weight 81.65 kg as6 (R); Height 4 ft. 11 in. (R); Pain 10/10; 01:59 Body Mass Index 36.36 (81.65 kg, 149.86 cm) as6 01:59 Pain Scale: Adult as6 MDM: 01:39 Patient medically screened. ec2 01:56 ED course: Patient arrives today for URI signs and symptoms. Examination remarkable for ec2 individual with reassuring lung sounds and clear oropharynx. Will obtain viral swabs and treat the patient's symptoms with crystalloid, Reglan, Benadryl as well as Toradol.. 02:05 Data reviewed: vital signs. ec2 03:53 ED course: Negative flu testing. On reassessment patient with improving symptoms. Will ec2 discharge home. Presentation consistent with viral process. Return precautions given.. 11 01:56 Order name: COVID-19 SARS RT PCR; Complete Time: 02:54 ec2 08/21 01:56 Order name: Influenza Screen (a \T\ B); Complete Time: 03:51 ec2 Administered Medications: 02:33 Drug: NS 0.9% IV 1000 ml IV at 1 bolus Per protocol; 1000 mL bolus Route: IV; Rate: 1 nw1 bolus; Site: right forearm; 02:33 Drug: Ketorolac IVP 15 mg IVP once Route: IVP; Site: right forearm; nw1 02:33 Drug: metoCLOPramide IVP 10 mg IVP once; over 1 to 2 minutes Route: IVP; Site: right nw1 forearm; 02:33 Drug: diphenhydrAMINE IVP 25 mg IVP once Route: IVP; Site: right forearm; nw1 Disposition Summary: 08/21/23 03:53 Discharge Ordered Notes: Location: Home ec2 Condition: Stable ec2 Diagnosis - Viral infection, unspecified ec2 Followup: ec2 - With: Private Physician - When: - Reason: Recheck today's complaints, Continuance of care Discharge Instructions: - Discharge Summary Sheet ec2 - Viral Illness, Adult ec2 Forms: - Medication Reconciliation Form ec2 - Thank You Letter ec2 - Antibiotic Education ec2 - Prescription Opioid Use ec2 - Patient Portal Instructions ec2 - Leadership Thank You Letter ec2 Prescriptions: - Reglan 10 mg Oral tablet - take 1 tablet ORAL route every 6 hours . take 30 minutes before meals and at ec2 bedtime; 30 tablet; Refills: 0, Product Selection Permitted Signatures: Dispatcher [employer] Yusef Mcgee RN RN as6 Yoni Santos MD MD ec2 Jael Lei RN RN nw1
--- NOTE | 2023-08-21 03:54 | ER ---
Nurse's Notes [facility] Name: Aimee Randolph Age: 43 yrs Sex: Female : 1980 Arrival Date: 08/21/2023 Time: 01:35 Bed 5 Private MD: Diagnosis: Viral infection, unspecified Presentation: 08/21 01:59 Chief complaint: Patient states: body aches, headaches, chills, sneezing, sore throat, as6 cough, congestion x2 days. Coronavirus screen: At this time, the client does not indicate any symptoms associated with coronavirus-19. Ebola Screen: No symptoms or risks identified at this time. Initial Sepsis Screen: Does the patient meet any 2 criteria? No. Patient's initial sepsis screen is negative. Does the patient have a suspected source of infection? No. Patient's initial sepsis screen is negative. Risk Assessment: Do you want to hurt yourself or someone else? Patient reports no desire to harm self or others. Onset of symptoms was August 19, 2023. 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 - Social history:: Smoking status: Reported history of juuling and/or vaping. Screenin:30 [facility] ED Fall Risk Assessment (Adult) History of falling in the last 3 months, nw1 including since admission No falls in past 3 months (0 pts) Confusion or Disorientation No (0 pts) Intoxicated or Sedated No (0 pts) Impaired Gait No (0 pts) Mobility Assist Device Used No (0 pt) Altered Elimination No (0 pt) Score/Fall Risk Level 0 - 2 = Low Risk Oriented to surroundings, Maintained a safe environment, Educated pt \T\ family on fall prevention, incl call for assistance when getting out of bed, Assessed \T\ reinforced patient's understanding of fall precautions, Provided non-skid footwear, Hourly rounding (assess needs \T\ fall precautionary measures) done. Abuse screen: Denies threats or abuse. Denies injuries from another. Nutritional screening: No deficits noted. Tuberculosis screening: No symptoms or risk factors identified. Assessment: 02:30 General: Appears uncomfortable, Behavior is calm, cooperative, appropriate for age. nw1 Pain: Complains of pain in face Pain currently is 10 out of 10 on a pain scale. Pain began 2-3 days ago. 02:30 Cardiovascular: Capillary refill < 3 seconds. Respiratory: Airway is patent Trachea nw1 midline Respiratory effort is even, unlabored, Respiratory pattern is regular, symmetrical, Breath sounds are clear bilaterally. 02:30 Reassessment: pt states headache x 2-3 days. nw1 Vital Signs: 01:59 BP 127 / 71; Pulse 64; Resp 18 S; Temp 98.1(O); Pulse Ox 99% on R/A; Weight 81.65 kg as6 (R); Height 4 ft. 11 in. (R); Pain 10/10; 01:59 Body Mass Index 36.36 (81.65 kg, 149.86 cm) as6 01:59 Pain Scale: Adult as6 ED Course: 01:38 Patient arrived in ED. jj6 01:39 Yoni Santos MD is Attending Physician. ec2 01:59 Jael Lei, ROULA is Primary Nurse. nw1 02:01 Triage completed. as6 02:02 Arm band placed on. as6 02:09 Influenza Screen (a \T\ B) Sent. jr12 02:09 COVID-19 SARS RT PCR Sent. jr12 02:23 Influenza Screen (a \T\ B) Sent. jr12 02:23 COVID-19 SARS RT PCR Sent. jr12 02:30 Patient has correct armband on for positive identification. Bed in low position. Call nw1 light in reach. Side rails up X2. Adult w/ patient. Provided Education on: POC. 02:30 No provider procedures requiring assistance completed. Inserted saline lock: 20 gauge nw1 in right forearm, using aseptic technique. 04:21 IV discontinued, intact, bleeding controlled, No redness/swelling at site. Pressure nw1 dressing applied. Administered Medications: 02:33 Drug: NS 0.9% IV 1000 ml IV at 1 bolus Per protocol; 1000 mL bolus Route: IV; Rate: 1 nw1 bolus; Site: right forearm; 02:33 Drug: Ketorolac IVP 15 mg IVP once Route: IVP; Site: right forearm; nw1 02:33 Drug: metoCLOPramide IVP 10 mg IVP once; over 1 to 2 minutes Route: IVP; Site: right nw1 forearm; 02:33 Drug: diphenhydrAMINE IVP 25 mg IVP once Route: IVP; Site: right forearm; nw1 Medication: 02:30 VIS not applicable for this client. nw1 Outcome: 03:53 Discharge ordered by . ec2 04:21 Discharged to home via wheelchair, with significant other, nw1 04:21 Condition: improved 04:21 Discharge instructions given to patient, Instructed on discharge instructions, follow up and referral plans. medication usage, Demonstrated understanding of instructions, follow-up care, medications, Prescriptions given X 1, 04:22 Patient left the ED. nw1 Signatures: Radha Kitchenj6 Yusef Brito, RN RN as6 Yoni Santos MD MD ec2 Jaylene Naranjo [facility] Jael Lei RN RN nw1
[2023-08-21 04:33] VITALS: BP 127/71; TEMP 98.1; O2SAT 99
== END 2023-08-21 04:22 | disposition home or self-care (01) ==
LOC: ER 01:35
DX: B34.9 Viral infection, unspecified (principal); Z11.52 Encounter for screening for COVID-19; Z88.1 Allergy status to other antibiotic agents; Z91.040 Latex allergy status
CPT/HCPCS: 87635; 87804 ×2; 96375; 96374; 99284; J2765; J1200; J7030

== ENCOUNTER 2023-08-29 13:00 | Emergency (ER) | payer OTHER ==
--- OUTSIDE RECORDS SUMMARY | 2023-08-29 13:22 | XMS REPORT | Continuity of Care Document ---
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 by ity of (IRON, 00:00: mouth in [place] FERROUS 00 the Medical SULFATE,) morning Branch 325 mg (65 and 1 mg iron) tablet in tablet the evening. ferrous 2022-0 Yes [id number] 325mg Take 1 Un renate sulfate 5-03 tablet by ity of (IRON, 00:00: mouth in [place] FERROUS 00 the Medical SULFATE,) morning Branch 325 mg (65 and 1 mg iron) tablet in tablet the evening. ferrous 2022-0 Yes [id number] 325mg Take 1 Un renate sulfate 5-03 tablet by ity of (IRON, 00:00: mouth in [place] FERROUS 00 the Medical SULFATE,) morning Branch 325 mg (65 and 1 mg iron) tablet in tablet the evening. ferrous 2022-0 Yes [id number] 325mg Take 1 Un renate sulfate 5-03 tablet by ity of (IRON, 00:00: mouth in [place] FERROUS 00 the Medical SULFATE,) morning Branch 325 mg (65 and 1 mg iron) tablet in tablet the evening. ferrous 2022-0 Yes [id number] 325mg Take 1 Un renate sulfate 5-03 tablet by ity of (IRON, 00:00: mouth in [place] FERROUS 00 the Medical SULFATE,) morning Branch 325 mg (65 and 1 mg iron) tablet in tablet the evening. ferrous 2022-0 Yes [id number] 325mg Take 1 Un renate sulfate 5-03 tablet by ity of (IRON, 00:00: mouth in [place] FERROUS 00 the Medical SULFATE,) morning Branch 325 mg (65 and 1 mg iron) tablet in tablet the evening. ferrous 0 Yes [id number] 325mg Take 1 Un renate sulfate 5-03 tablet by ity of (IRON, 00:00: mouth in [place] FERROUS 00 the Medical SULFATE,) morning Branch 325 mg (65 and 1 mg iron) tablet in tablet the evening. ferrous 2022-0 Yes [id number] 325mg Take 1 Un renate sulfate 5-03 tablet by ity of (IRON, 00:00: mouth in [place] FERROUS 00 the Medical SULFATE,) morning Branch 325 mg (65 and 1 mg iron) tablet in tablet the evening. ferrous 2022-0 Yes [id number] 325mg Take 1 Un renate sulfate 4-27 tablet by ity of (IRON, 00:00: mouth in [place] FERROUS 00 the Medical SULFATE,) morning Branch 325 mg (65 and 1 mg iron) tablet in tablet the evening. ferrous 2022-0 Yes [id number] 325mg Take 1 Un renate sulfate 4-27 tablet by ity of (IRON, 00:00: mouth in [place] FERROUS 00 the Medical SULFATE,) morning Branch 325 mg (65 and 1 mg iron) tablet in tablet the evening. ferrous 0 Yes [id number] 325mg Take 1 Un renate sulfate 4-27 tablet by ity of (IRON, 00:00: mouth in [place] FERROUS 00 the Medical SULFATE,) morning Branch 325 mg (65 and 1 mg iron) tablet in tablet the evening. ferrous Yes [id number] 325mg Take 1 Un renate sulfate 4-27 tablet by ity of (IRON, 00:00: mouth in [place] FERROUS 00 the Medical SULFATE,) morning Branch 325 mg (65 and 1 mg iron) tablet in tablet the evening. ferrous Yes [id number] 325mg Take 1 Un renate sulfate 4-27 tablet by ity of (IRON, 00:00: mouth in [place] FERROUS 00 the Medical SULFATE,) morning Branch 325 mg (65 and 1 mg iron) tablet in tablet the evening. cyclobenzap Yes [id number] 5mg Take 1 [facility] rine 5 mg 4-27 tablet by ity o f tablet 00:00: mouth at [place] 00 bedtime. Medical Branch cyclobenzap Yes [id number] 5mg Take 1 [facility] rine 5 mg 4-27 tablet by ity o f tablet 00:00: mouth at [place] 00 bedtime. Medical Branch cyclobenzap 0 Yes [id number] 5mg Take 1 [facility] rine 5 mg 4-27 tablet by ity o f tablet 00:00: mouth at [place] 00 bedtime. Medical Branch cyclobenzap Yes [id number] 5mg Take 1 [facility] rine 5 mg 4-27 tablet by ity o f tablet 00:00: mouth at [place] 00 bedtime. Medical Branch cyclobenzap Yes [id number] 5mg Take 1 [facility] rine 5 mg 4-27 tablet by ity o f tablet 00:00: mouth at [place] 00 bedtime. Medical Branch cyclobenzap 0 Yes [id number] 5mg Take 1 [facility] rine 5 mg 4-27 tablet by ity o f tablet 00:00: mouth at [place] [address] bedtime. Medical Branch cyclobenzap Yes [id number] 5mg Take 1 [facility] rine 5 mg 4-27 tablet by ity o f tablet 00:00: mouth at [place] 00 bedtime. Medical Branch cyclobenzap 2022-0 Yes [id number] 5mg Take 1 [facility] rine 5 mg 4-27 tablet by ity o f tablet 00:00: mouth at [place] 00 bedtime. Medical Branch cyclobenzap 2022-0 Yes [id number] 5mg Take 1 [facility] rine 5 mg 4-27 tablet by ity o f tablet 00:00: mouth at [place] 00 bedtime. Medical Branch cyclobenzap 2022-0 Yes [id number] 5mg Take 1 [facility] rine 5 mg 4-27 tablet by ity o f tablet 00:00: mouth at [place] 00 bedtime. Medical Branch cyclobenzap 2022-0 Yes [id number] 5mg Take 1 [facility] rine 5 mg 4-27 tablet by ity o f tablet 00:00: mouth at [place] 00 bedtime. Medical Branch cyclobenzap 2022-0 Yes [id number] 5mg Take 1 [facility] rine 5 mg 4-27 tablet by ity o f tablet 00:00: mouth at [place] 00 bedtime. Medical Branch cyclobenzap 2022-0 Yes [id number] 5mg Take 1 [facility] rine 5 mg 4-27 tablet by ity o f tablet 00:00: mouth at [place] 00 bedtime. Medical Branch cyclobenzap 2022-0 Yes [id number] 5mg Take 1 [facility] rine 5 mg 4-27 tablet by ity o f tablet 00:00: mouth at [place] 00 bedtime. Medical Branch cyclobenzap 2022-0 Yes [id number] 5mg Take 1 [facility] rine 5 mg 4-27 tablet by ity o f tablet 00:00: mouth at [place] 00 bedtime. Medical Branch cyclobenzap 2022-0 Yes [id number] 5mg Take 1 [facility] rine 5 mg 4-27 tablet by ity o f tablet 00:00: mouth at [place] 00 bedtime. Medical Branch cyclobenzap 2022-0 Yes [id number] 5mg Take 1 [facility] rine 5 mg 4-27 tablet by ity o f tablet 00:00: mouth at [place] 00 bedtime. Medical Branch cyclobenzap 2022-0 Yes [id number] 5mg Take 1 [facility] rine 5 mg 4-27 tablet by ity o f tablet 00:00: mouth at [place] 00 bedtime. Medical Branch meloxicam 3-0 3- No [id number] 7.5mg Take 1 [facility] 7.5 mg 4-27 06-27 tablet by ity of tablet 00:00: 04:59 mouth in [place] 00 :00 the Medical morning Branch for 60 days. meloxicam 2022-0 2022- No [id number] 7.5mg Take 1 [facility] 7.5 mg 4-27 06-27 tablet by ity of tablet 00:00: 04:59 mouth in [place] 00 :00 the Medical morning Branch for 60 days. meloxicam 2022-0 3- No [id number] 7.5mg Take 1 [facility] 7.5 mg 4-27 06-27 tablet by ity of tablet 00:00: 04:59 mouth in [place] 00 :00 the Medical morning Branch for 60 days. meloxicam 2022-0 2022- No [id number] 7.5mg Take 1 [facility] 7.5 mg 4-27 06-27 tablet by ity of tablet 00:00: 04:59 mouth in [place] 00 :00 the Medical morning Branch for 60 days. meloxicam 2022-0 2022- No [id number] 7.5mg Take 1 [facility] 7.5 mg 4-27 06-27 tablet by ity of tablet 00:00: 04:59 mouth in [place] 00 :00 the Medical morning Branch for 60 days. meloxicam 2022-0 2022- No [id number] 7.5mg Take 1 [facility] 7.5 mg 4-27 06-27 tablet by ity of tablet 00:00: 04:59 mouth in [place] 00 :00 the Medical morning Branch for 60 days. meloxicam 2022-0 2022- No [id number] 7.5mg Take 1 [facility] 7.5 mg 4-27 06-27 tablet by ity of tablet 00:00: 04:59 mouth in [place] 00 :00 the Medical morning Branch for 60 days. meloxicam 2022-0 3- No [id number] 7.5mg Take 1 [facility] 7.5 mg 4-27 06-27 tablet by ity of tablet 00:00: 04:59 mouth in [place] 00 :00 the Medical morning Branch for 60 days. meloxicam 2022-0 3- No [id number] 7.5mg Take 1 [facility] 7.5 mg 4-27 06-27 tablet by ity of tablet 00:00: 04:59 mouth in [place] 00 :00 the Medical morning Branch for 60 days. ferrous 2023-0 2022- No [id number] 325mg Take 1 [facility] nivers sulfate 01-26 05-03 tablet by ity of (IRON, 00:00: 00:00 mouth in [place] FERROUS 00 :00 the Medical SULFATE,) morning Branch 325 mg (65 and 1 mg iron) tablet in tablet the evening. ferrous 2022-0 2022- No [id number] 325mg Take 1 U nivers sulfate 01-26 05-03 tablet by ity of (IRON, 00:00: 00:00 mouth in [place] FERROUS 00 :00 the Medical SULFATE,) morning Branch 325 mg (65 and 1 mg iron) tablet in tablet the evening. doxycycline 2022-0 2022- No [id number] 100mg Take 1 [facility] hyclate 100 4-26 05-07 tablet by it y of mg tablet 00:00: 04:59 mouth in [place] 00 :00 the Medical morning Branch and 1 tablet in the evening. Do all this for 10 days. doxycycline 2022-0 2022- No [id number] 100mg Take 1 [facility] hyclate 100 4- 05-07 tablet by it y of mg tablet 00:00: 04:59 mouth in [place] 00 :00 the Medical morning Branch and 1 tablet in the evening. Do all this for 10 days. doxycycline 2022-0 2022- No [id number] 100mg Take 1 [facility] hyclate 100 4-26 05-07 tablet by it y of mg tablet 00:00: 04:59 mouth in [place] 00 :00 the Medical morning Branch and 1 tablet in the evening. Do all this for 10 days. doxycycline 2022-0 2022- No [id number] 100mg Take 1 [facility] hyclate 100 4-26 05-07 tablet by it y of mg tablet 00:00: 04:59 mouth in [place] 00 :00 the Medical morning Branch and 1 tablet in the evening. Do all this for 10 days. doxycycline 202-0 2022- No [id number] 100mg Take 1 [facility] hyclate 100 4-26 05-07 tablet by it y of mg tablet 00:00: 04:59 mouth in [place] 00 :00 the Medical morning Branch and 1 tablet in the evening. Do all this for 10 days. doxycycline 2022-0 2022- No [id number] 100mg Take 1 [facility] hyclate 100 4-26 05-07 tablet by it y of mg tablet 00:00: 04:59 mouth in [place] 00 :00 the Medical morning Branch and 1 tablet in the evening. Do all this for 10 days. doxycycline 2023-0 3- No [id number] 100mg Take 1 [facility] hyclate 100 4-26 05-07 tablet by it y of mg tablet 00:00: 04:59 mouth in [place] 00 :00 the Medical morning Branch and 1 tablet in the evening. Do all this for 10 days. doxycycline 2023-0 3- No [id number] 100mg Take 1 [facility] hyclate 100 4-26 05-07 tablet by it y of mg tablet 00:00: 04:59 mouth in [place] 00 :00 the Medical morning Branch and 1 tablet in the evening. Do all this for 10 days. doxycycline 3-0 3- No [id number] 100mg Take 1 [facility] hyclate 100 4-26 05-07 tablet by it y of mg tablet 00:00: 04:59 mouth in [place] 00 :00 the Medical morning Branch and 1 tablet in the evening. Do all this for 10 days. doxycycline 2022-0 2022- No [id number] 100mg Take 1 [facility] hyclate 100 4-26 05-07 tablet by it y of mg tablet 00:00: 04:59 mouth in [place] 00 :00 the Medical morning Branch and 1 tablet in the evening. Do all this for 10 days. doxycycline 2023-0 3- No [id number] 100mg Take 1 [facility] hyclate 100 4-26 05-07 tablet by it y of mg tablet 00:00: 04:59 mouth in [place] 00 :00 the Medical morning Branch and 1 tablet in the evening. Do all this for 10 days. doxycycline 2023-0 3- No [id number] 100mg Take 1 [facility] hyclate 100 4-26 05-07 tablet by it y of mg tablet 00:00: 04:59 mouth in [place] 00 :00 the Medical morning Branch and 1 tablet in the evening. Do all this for 10 days. doxycycline 2023-0 3- No [id number] 100mg Take 1 [facility] hyclate 100 4-26 [...] dose, On Medi [facility] tablet 1 Mon [place] tablet 12/27/22 at 1015, Routine HYDROcodone 2022-2022- No 1{tbl} 1 tablet, [facility] -acetaminop 12-27 Oral, ity of hen (NORCO 15:15: 14:28 ONCE, 1 [place] 5) 5-325 mg 00 :00 dose, On Medi selina tablet 1 Mon [place] tablet 12/27/22 at 1015, Routine sodium 2022-2022- No PRN, [facility] chloride 12-27 Starting ity of 0.9 % 13:21: 13:53 on Mon [place] 00 :19 12/27/22 at Med ical solution 0821, Branch Until Mon12/27/22 at 0853, Intra-op ferric 2022- Yes PRN, [facility] subsulfate 12-27 Starting ity o f (MONSEL'S 13:18: on Mon [place] SOLUTION) 00 12/27/22 at Medi selina solution 0818, Branch Until Discontinu ed, Routine, Intra-op ferric 2022-2022- No PRN, [facility] subsulfate 12-27 Starting ity [...] Surgical Prophylaxi s
Surgi selina Prophylaxi s: TITLE EXAMINER
Duration of therapy: within 24 hours of [...] Surgical Prophylaxi s
Surgi selina Prophylaxi s: TITLE EXAMINER
Duration of therapy: within 24 hours of surgery lactated 2022-0 2022- No 1000mL at 42 Unive rs ringers IV 12-27 mL/hr, ity of infusion 12:15: 12:27 1,000 mL, [place] 1,000 mL 00 :00 IV Medical Infusion, Branch ONCE, 1 dose, On Mon12/27/22 at 0715, Routine, DSU Pre-op lactated 2022-0 2022- No 1000mL at 42 Unive rs ringers IV 12-27 mL/hr, ity of infusion 12:15: 12:27 1,000 mL, [place] 1,000 mL 00 :00 IV Medical Infusion, Branch ONCE, 1 dose, On Mon12/27/22 at 0715, Routine, DSU Pre-op acetaminoph 3-0 Yes [id number] 650mg Take 2 [facility] en 3-28 tablets by ity of (TYLENOL) 00:00: mouth [place] 325 mg 00 every 6 Medical tablet (six) Branch hours as needed for Pain (scale 1-3) or Pain (scale 4-6). ibuprofen 2022-0 Yes [id number] 600mg Take 1 [facility] 600 mg 3-28 tablet by ity of tablet 00:00: mouth [place] 00 every 6 Medical (six) Branch hours as needed for Pain (scale 1-3) or Pain (scale 4-6). acetaminoph 2022-0 Yes [id number] 650mg Take 2 [facility] en 3-28 tablets by ity of (TYLENOL) 00:00: mouth [place] 325 mg 00 every 6 Medical tablet (six) Branch hours as needed for Pain (scale 1-3) or Pain (scale 4-6). ibuprofen 2022-0 Yes [id number] 600mg Take 1 [facility] 600 mg 3-28 tablet by ity of tablet 00:00: mouth [place] 00 every 6 Medical (six) Branch hours as needed for Pain (scale 1-3) or Pain (scale 4-6). acetaminoph 2022-0 Yes [id number] 650mg Take 2 [facility] en 3-28 tablets by ity of (TYLENOL) 00:00: mouth [place] 325 mg 00 every 6 Medical tablet (six) Branch hours as needed for Pain (scale 1-3) or Pain (scale 4-6). ibuprofen 2022-0 Yes [id number] 600mg Take 1 [facility] 600 mg 3-28 tablet by ity of tablet 00:00: mouth [place] 00 every 6 Medical (six) Branch hours as needed for Pain (scale 1-3) or Pain (scale 4-6). acetaminoph 2022-0 Yes [id number] 650mg Take 2 [facility] en 3-28 tablets by ity of (TYLENOL) 00:00: mouth [place] 325 mg 00 every 6 Medical tablet (six) Branch hours as needed for Pain (scale 1-3) or Pain (scale 4-6). ibuprofen 2022-0 Yes [id number] 600mg Take 1 [facility] 600 mg 3-28 tablet by ity of tablet 00:00: mouth [place] 00 every 6 Medical (six) Branch hours as needed for Pain (scale 1-3) or Pain (scale 4-6). acetaminoph 3-0 Yes [id number] 650mg Take 2 [facility] en 3-28 tablets by ity of (TYLENOL) 00:00: mouth [place] 325 mg 00 every 6 Medical tablet (six) Branch hours as needed for Pain (scale 1-3) or Pain (scale 4-6). ibuprofen 2022-0 Yes [id number] 600mg Take 1 [facility] 600 mg 3-28 tablet by ity of tablet 00:00: mouth [place] 00 every 6 Medical (six) Branch hours as needed for Pain (scale 1-3) or Pain (scale 4-6). acetaminoph 2022-0 Yes [id number] 650mg Take 2 [facility] en 3-28 tablets by ity of (TYLENOL) 00:00: mouth [place] 325 mg 00 every 6 Medical tablet (six) Branch hours as needed for Pain (scale 1-3) or Pain (scale 4-6). ibuprofen 2022-0 Yes [id number] 600mg Take 1 [facility] 600 mg 3-28 tablet by ity of tablet 00:00: mouth [place] 00 every 6 Medical (six) Branch hours as needed for Pain (scale 1-3) or Pain (scale 4-6). acetaminoph 2022-0 Yes [id number] 650mg Take 2 [facility] en 3-28 tablets by ity of (TYLENOL) 00:00: mouth [place] 325 mg 00 every 6 Medical tablet (six) Branch hours as needed for Pain (scale 1-3) or Pain (scale 4-6). ibuprofen 3-0 Yes [id number] 600mg Take 1 [facility] 600 mg 3-28 tablet by ity of tablet 00:00: mouth [place] 00 every 6 Medical (six) Branch hours as needed for Pain (scale 1-3) or Pain (scale 4-6). acetaminoph 2023-0 Yes [id number] 650mg Take 2 [facility] en 3-28 tablets by ity of (TYLENOL) 00:00: mouth [place] 325 mg 00 every 6 Medical tablet (six) Branch hours as needed for Pain (scale 1-3) or Pain (scale 4-6). ibuprofen 2023-0 Yes [id number] 600mg Take 1 [facility] 600 mg 3-28 tablet by ity of tablet 00:00: mouth [place] 00 every 6 Medical (six) Branch hours as needed for Pain (scale 1-3) or Pain (scale 4-6). acetaminoph 2023-0 Yes [id number] 650mg Take 2 [facility] en 3-28 tablets by ity of (TYLENOL) 00:00: mouth [place] 325 mg 00 every 6 Medical tablet (six) Branch hours as needed for Pain (scale 1-3) or Pain (scale 4-6). ibuprofen 2023-0 Yes [id number] 600mg Take 1 [facility] 600 mg 3-28 tablet by ity of tablet 00:00: mouth [place] 00 every 6 Medical (six) Branch hours as needed for Pain (scale 1-3) or Pain (scale 4-6). acetaminoph 2023-0 Yes [id number] 650mg Take 2 [facility] en 3-28 tablets by ity of (TYLENOL) 00:00: mouth [place] 325 mg 00 every 6 Medical tablet (six) Branch hours as needed for Pain (scale 1-3) or Pain (scale 4-6). ibuprofen 2023-0 Yes [id number] 600mg Take 1 [facility] 600 mg 3-28 tablet by ity of tablet 00:00: mouth [place] 00 every 6 Medical (six) Branch hours as needed for Pain (scale 1-3) or Pain (scale 4-6). acetaminoph 2023-0 Yes [id number] 650mg Take 2 [facility] en 3-28 tablets by ity of (TYLENOL) 00:00: mouth [place] 325 mg 00 every 6 Medical tablet (six) Branch hours as needed for Pain (scale 1-3) or Pain (scale 4-6). ibuprofen 2023-0 Yes [id number] 600mg Take 1 [facility] 600 mg 3-28 tablet by ity of tablet 00:00: mouth [place] 00 every 6 Medical (six) Branch hours as needed for Pain (scale 1-3) or Pain (scale 4-6). acetaminoph 2023-0 Yes [id number] 650mg Take 2 [facility] en 3-28 tablets by ity of (TYLENOL) 00:00: mouth [place] 325 mg 00 every 6 Medical tablet (six) Branch hours as needed for Pain (scale 1-3) or Pain (scale 4-6). ibuprofen 2023-0 Yes [id number] 600mg Take 1 [facility] 600 mg 3-28 tablet by ity of tablet 00:00: mouth [place] 00 every 6 Medical (six) Branch hours as needed for Pain (scale 1-3) or Pain (scale 4-6). acetaminoph 2023-0 Yes [id number] 650mg Take 2 [facility] en 3-28 tablets by ity of (TYLENOL) 00:00: mouth [place] 325 mg 00 every 6 Medical tablet (six) Branch hours as needed for Pain (scale 1-3) or Pain (scale 4-6). ibuprofen 2023-0 Yes [id number] 600mg Take 1 [facility] 600 mg 3-28 tablet by ity of tablet 00:00: mouth [place] 00 every 6 Medical (six) Branch hours as needed for Pain (scale 1-3) or Pain (scale 4-6). acetaminoph 2023-0 Yes [id number] 650mg Take 2 [facility] en 3-28 tablets by ity of (TYLENOL) 00:00: mouth [place] 325 mg 00 every 6 Medical tablet (six) Branch hours as needed for Pain (scale 1-3) or Pain (scale 4-6). ibuprofen 2023-0 Yes [id number] 600mg Take 1 [facility] 600 mg 3-28 tablet by ity of tablet 00:00: mouth [place] 00 every 6 Medical (six) Branch hours as needed for Pain (scale 1-3) or Pain (scale 4-6). acetaminoph 2023-0 Yes [id number] 650mg Take 2 [facility] en 3-28 tablets by ity of (TYLENOL) 00:00: mouth [place] 325 mg 00 every 6 Medical tablet (six) Branch hours as needed for Pain (scale 1-3) or Pain (scale 4-6). ibuprofen 2023-0 Yes [id number] 600mg Take 1 [facility] 600 mg 3-28 tablet by ity of tablet 00:00: mouth [place] 00 every 6 Medical (six) Branch hours as needed for Pain (scale 1-3) or Pain (scale 4-6). acetaminoph 2023-0 Yes [id number] 650mg Take 2 [facility] en 3-28 tablets by ity of (TYLENOL) 00:00: mouth [place] 325 mg 00 every 6 Medical tablet (six) Branch hours as needed for Pain (scale 1-3) or Pain (scale 4-6). ibuprofen 3-0 Yes [id number] 600mg Take 1 [facility] 600 mg 3-28 tablet by ity of tablet 00:00: mouth [place] 00 every 6 Medical (six) Branch hours as needed for Pain (scale 1-3) or Pain (scale 4-6). acetaminoph 2023-0 Yes [id number] 650mg Take 2 [facility] en 3-28 tablets by ity of (TYLENOL) 00:00: mouth [place] 325 mg 00 every 6 Medical tablet (six) Branch hours as needed for Pain (scale 1-3) or Pain (scale 4-6). ibuprofen 2022-0 Yes [id number] 600mg Take 1 [facility] 600 mg 3-28 tablet by ity of tablet 00:00: mouth [place] 00 every 6 Medical (six) Branch hours as needed for Pain (scale 1-3) or Pain (scale 4-6). acetaminoph 2022-0 Yes [id number] 650mg Take 2 [facility] en 3-28 tablets by ity of (TYLENOL) 00:00: mouth [place] 325 mg 00 every 6 Medical tablet (six) Branch hours as needed for Pain (scale 1-3) or Pain (scale 4-6). ibuprofen 2022-0 Yes [id number] 600mg Take 1 [facility] 600 mg 3-28 tablet by ity of tablet 00:00: mouth [place] 00 every 6 Medical (six) Branch hours as needed for Pain (scale 1-3) or Pain (scale 4-6). acetaminoph 3-0 Yes [id number] 650mg Take 2 [facility] en 3-28 tablets by ity of (TYLENOL) 00:00: mouth [place] 325 mg 00 every 6 Medical tablet (six) Branch hours as needed for Pain (scale 1-3) or Pain (scale 4-6). ibuprofen 2023-0 Yes [id number] 600mg Take 1 [facility] 600 mg 3-28 tablet by ity of tablet 00:00: mouth [place] 00 every 6 Medical (six) Branch hours as needed for Pain (scale 1-3) or Pain (scale 4-6). acetaminoph 2023-0 Yes [id number] 650mg Take 2 [facility] en 3-28 tablets by ity of (TYLENOL) 00:00: mouth [place] 325 mg 00 every 6 Medical tablet (six) Branch hours as needed for Pain (scale 1-3) or Pain (scale 4-6). ibuprofen 2023-0 Yes [id number] 600mg Take 1 [facility] 600 mg 3-28 tablet by ity of tablet 00:00: mouth [place] 00 every 6 Medical (six) Branch hours as needed for Pain (scale 1-3) or Pain (scale 4-6). acetaminoph 2023-0 Yes [id number] 650mg Take 2 [facility] en 3-28 tablets by ity of (TYLENOL) 00:00: mouth [place] 325 mg 00 every 6 Medical tablet (six) Branch hours as needed for Pain (scale 1-3) or Pain (scale 4-6). ibuprofen 2023-0 Yes [id number] 600mg Take 1 [facility] 600 mg 3-28 tablet by ity of tablet 00:00: mouth [place] 00 every 6 Medical (six) Branch hours as needed for Pain (scale 1-3) or Pain (scale 4-6). acetaminoph 3-0 Yes [id number] 650mg Take 2 [facility] en 3-28 tablets by ity of (TYLENOL) 00:00: mouth [place] 325 mg 00 every 6 Medical tablet (six) Branch hours as needed for Pain (scale 1-3) or Pain (scale 4-6). ibuprofen 3-0 Yes [id number] 600mg Take 1 [facility] 600 mg 3-28 tablet by ity of tablet 00:00: mouth [place] 00 every 6 Medical (six) Branch hours as needed for Pain (scale 1-3) or Pain (scale 4-6). acetaminoph 3-0 Yes [id number] 650mg Take 2 [facility] en 3-28 tablets by ity of (TYLENOL) 00:00: mouth [place] 325 mg 00 every 6 Medical tablet (six) Branch hours as needed for Pain (scale 1-3) or Pain (scale 4-6). ibuprofen 2023-0 Yes [id number] 600mg Take 1 [facility] 600 mg 3-28 tablet by ity of tablet 00:00: mouth [place] 00 every 6 Medical (six) Branch hours as needed for Pain (scale 1-3) or Pain (scale 4-6). acetaminoph 2023-0 Yes [id number] 650mg Take 2 [facility] en 3-28 tablets by ity of (TYLENOL) 00:00: mouth [place] 325 mg 00 every 6 Medical tablet (six) Branch hours as needed for Pain (scale 1-3) or Pain (scale 4-6). ibuprofen 2023-0 Yes [id number] 600mg Take 1 [facility] 600 mg 3-28 tablet by ity of tablet 00:00: mouth [place] 00 every 6 Medical (six) Branch hours as needed for Pain (scale 1-3) or Pain (scale 4-6). acetaminoph 2023-0 Yes [id number] 650mg Take 2 [facility] en 3-28 tablets by ity of (TYLENOL) 00:00: mouth [place] 325 mg 00 every 6 Medical tablet (six) Branch hours as needed for Pain (scale 1-3) or Pain (scale 4-6). ibuprofen 202-0 Yes [id number] 600mg Take 1 [facility] 600 mg 3-28 tablet by ity of tablet 00:00: mouth [place] 00 every 6 Medical (six) Branch hours as needed for Pain (scale 1-3) or Pain (scale 4-6). acetaminoph 2022-0 Yes [id number] 650mg Take 2 [facility] en 3-28 tablets by ity of (TYLENOL) 00:00: mouth [place] 325 mg 00 every 6 Medical tablet (six) Branch hours as needed for Pain (scale 1-3) or Pain (scale 4-6). ibuprofen 3-0 Yes [id number] 600mg Take 1 [facility] 600 mg 3-28 tablet by ity of tablet 00:00: mouth [place] 00 every 6 Medical (six) Branch hours as needed for Pain (scale 1-3) or Pain (scale 4-6). acetaminoph 3-0 Yes [id number] 650mg Take 2 [facility] en 3-28 tablets by ity of (TYLENOL) 00:00: mouth [place] 325 mg 00 every 6 Medical tablet (six) Branch hours as needed for Pain (scale 1-3) or Pain (scale 4-6). ibuprofen 2023-0 Yes [id number] 600mg Take 1 [facility] 600 mg 3-28 tablet by ity of tablet 00:00: mouth [place] 00 every 6 Medical (six) Branch hours as needed for Pain (scale 1-3) or Pain (scale 4-6). acetaminoph 2023-0 Yes [id number] 650mg Take 2 [facility] en 3-28 tablets by ity of (TYLENOL) 00:00: mouth [place] 325 mg 00 every 6 Medical tablet (six) Branch hours as needed for Pain (scale 1-3) or Pain (scale 4-6). ibuprofen 2022-0 Yes [id number] 600mg Take 1 [facility] 600 mg 3-28 tablet by ity of tablet 00:00: mouth [place] 00 every 6 Medical (six) Branch hours as needed for Pain (scale 1-3) or Pain (scale 4-6). acetaminoph 2022-0 Yes [id number] 650mg Take 2 [facility] 3-28 tablets by ity of (TYLENOL) 00:00: mouth [place] 325 mg 00 every 6 Medical tablet (six) Branch hours as needed for Pain (scale 1-3) or Pain (scale 4-6). ibuprofen 2022-0 Yes [id number] 600mg Take 1 [facility] 600 mg 3-28 tablet by ity of tablet 00:00: mouth [place] 00 every 6 Medical (six) Branch hours as needed for Pain (scale 1-3) or Pain (scale 4-6). acetaminoph 2022-0 Yes [id number] 650mg Take 2 [facility] en 3-28 tablets by ity of (TYLENOL) 00:00: mouth [place] 325 mg 00 every 6 Medical tablet (six) Branch hours as needed for Pain (scale 1-3) or Pain (scale 4-6). ibuprofen 2022-0 Yes [id number] 600mg Take 1 [facility] 600 mg 3-28 tablet by ity of tablet 00:00: mouth [place] 00 every 6 Medical (six) Branch hours as needed for Pain (scale 1-3) or Pain (scale 4-6). acetaminoph 2022-0 Yes [id number] 650mg Take 2 [facility] en 3-28 tablets by ity of (TYLENOL) 00:00: mouth [place] 325 mg 00 every 6 Medical tablet (six) Branch hours as needed for Pain (scale 1-3) or Pain (scale 4-6). ibuprofen 2022-0 Yes [id number] 600mg Take 1 [facility] 600 mg 3-28 tablet by ity of tablet 00:00: mouth [place] 00 every 6 Medical (six) Branch hours as needed for Pain (scale 1-3) or Pain (scale 4-6). acetaminoph 2022-0 Yes [id number] 650mg Take 2 [facility] en 3-28 tablets by ity of (TYLENOL) 00:00: mouth [place] 325 mg 00 every 6 Medical tablet (six) Branch hours as needed for Pain (scale 1-3) or Pain (scale 4-6). ibuprofen 2022-0 Yes [id number] 600mg Take 1 [facility] 600 mg 3-28 tablet by ity of tablet 00:00: mouth [place] 00 every 6 Medical (six) Branch hours as needed for Pain (scale 1-3) or Pain (scale 4-6). acetaminoph 2022-0 Yes [id number] 650mg Take 2 [facility] en 3-28 tablets by ity of (TYLENOL) 00:00: mouth [place] 325 mg 00 every 6 Medical tablet (six) Branch hours as needed for Pain (scale 1-3) or Pain (scale 4-6). ibuprofen 2022-0 Yes [id number] 600mg Take 1 [facility] 600 mg 3-28 tablet by ity of tablet 00:00: mouth [place] 00 every 6 Medical (six) Branch hours as needed for Pain (scale 1-3) or Pain (scale 4-6). acetaminoph 2022-0 Yes [id number] 650mg Take 2 [facility] en 3-28 tablets by ity of (TYLENOL) 00:00: mouth [place] 325 mg 00 every 6 Medical tablet (six) Branch hours as needed for Pain (scale 1-3) or Pain (scale 4-6). ibuprofen 2022-0 Yes [id number] 600mg Take 1 [facility] 600 mg 3-28 tablet by ity of tablet 00:00: mouth [place] 00 every 6 Medical (six) Branch hours as needed for Pain (scale 1-3) or Pain (scale 4-6). acetaminoph 2022-0 Yes [id number] 650mg Take 2 [facility] en 3-28 tablets by ity of (TYLENOL) 00:00: mouth [place] 325 mg 00 every 6 Medical tablet (six) Branch hours as needed for Pain (scale 1-3) or Pain (scale 4-6). ibuprofen 2022-0 Yes [id number] 600mg Take 1 [facility] 600 mg 3-28 tablet by ity of tablet 00:00: mouth [place] 00 every 6 Medical (six) Branch hours as needed for Pain (scale 1-3) or Pain (scale 4-6). acetaminoph 2022-0 Yes [id number] 650mg Take 2 [facility] en 3-28 tablets by ity of (TYLENOL) 00:00: mouth [place] 325 mg 00 every 6 Medical tablet (six) Branch hours as needed for Pain (scale 1-3) or Pain (scale 4-6). ibuprofen 2022-0 Yes [id number] 600mg Take 1 [facility] 600 mg 3-28 tablet by ity of tablet 00:00: mouth [place] 00 every 6 Medical (six) Branch hours as needed for Pain (scale 1-3) or Pain (scale 4-6). acetaminoph 2022-0 Yes [id number] 650mg Take 2 [facility] en 3-28 tablets by ity of (TYLENOL) 00:00: mouth [place] 325 mg 00 every 6 Medical tablet (six) Branch hours as needed for Pain (scale 1-3) or Pain (scale 4-6). ibuprofen 2022-0 Yes [id number] 600mg Take 1 [facility] 600 mg 3-28 tablet by ity of tablet 00:00: mouth [place] 00 every 6 Medical (six) Branch hours as needed for Pain (scale 1-3) or Pain (scale 4-6). acetaminoph 2022-0 Yes [id number] 650mg Take 2 [facility] en 3-28 tablets by ity of (TYLENOL) 00:00: mouth [place] 325 mg 00 every 6 Medical tablet (six) Branch hours as needed for Pain (scale 1-3) or Pain (scale 4-6). ibuprofen 2022-0 Yes [id number] 600mg Take 1 [facility] 600 mg 3-28 tablet by ity of tablet 00:00: mouth [place] 00 every 6 Medical (six) Branch hours as needed for Pain (scale 1-3) or Pain (scale 4-6). acetaminoph 2022-0 Yes [id number] 650mg Take 2 [facility] en 3-28 tablets by ity of (TYLENOL) 00:00: mouth [place] 325 mg 00 every 6 Medical tablet (six) Branch hours as needed for Pain (scale 1-3) or Pain (scale 4-6). ibuprofen 2022-0 Yes [id number] 600mg Take 1 [facility] 600 mg 3-28 tablet by ity of tablet 00:00: mouth [place] 00 every 6 Medical (six) Branch hours as needed for Pain (scale 1-3) or Pain (scale 4-6). acetaminoph 2022-0 Yes [id number] 650mg Take 2 [facility] en 3-28 tablets by ity of (TYLENOL) 00:00: mouth [place] 325 mg 00 every 6 Medical tablet (six) Branch hours as needed for Pain (scale 1-3) or Pain (scale 4-6). ibuprofen 0 Yes [id number] 600mg Take 1 [facility] 600 mg 3-28 [...] [place] 00 needed. Medical Branch traMADoL 50 2023-0 Yes 50mg Take 1 [facility] ers mg [...] 00 needed. Medical Branch methylPREDN 3-0 Yes [id number] Take by [facility] ISolone 4 2-21 mouth ity of mg tablets 00:00: [place]-INSTRU [place] 00 CTIONS. Medical follow Branch package directions methylPREDN 3-0 Yes [id number] Take by [facility] ISolone 4 2-21 mouth ity of mg tablets 00:00: SEE-INSTRU [place] 00 CTIONS. Medical follow Branch package directions methylPREDN 3-0 Yes [id number] Take by [facility] ISolone 4 2-21 mouth ity of mg tablets 00:00: SEE-INSTRU [place] 00 CTIONS. Medical follow Branch package directions methylPREDN 3-0 Yes [id number] Take by [facility] ISolone 4 2-21 mouth ity of mg tablets 00:00: SEE-INSTRU [place] 00 CTIONS. Medical follow Branch package directions methylPREDN 3-0 Yes [id number] Take by [facility] ISolone 4 2-21 mouth ity of mg tablets 00:00: SEE-INSTRU [place] 00 CTIONS. Medical follow Branch package directions methylPREDN 2022-0 Yes [id number] Take by [facility] ISolone 4 2-21 mouth ity of mg tablets 00:00: SEE-INSTRU [place] 00 CTIONS. Medical follow Branch package directions methylPREDN 2022-0 2023- No [id number] Take by [facility] ISolone 4 2-21 -28 mouth ity of mg tablets 00:00: 00:00 SEE-INSTRU [place] 00 :00 CTIONS. Medical follow Branch package directions methylPREDN 3-0 2023- No [id number] Take by [facility] ISolone 4 2-21 -28 mouth ity of mg tablets 00:00: 00:00 SEE-INSTRU [place] 00 :00 CTIONS. Medical follow Branch package directions miSOPROStoL 3-0 Yes [id number] Take one [facility] 200 mcg 2-15 tablet ity of tablet 00:00: night [place] 00 before Medical procedure, Branch then take one tablet morning of procedure miSOPROStoL 2022-0 Yes [id number] Take one [facility] 200 mcg 2-15 tablet ity of tablet 00:00: night [place] 00 before Medical procedure, Branch then take one tablet morning of procedure miSOPROStoL 2023-0 Yes [id number] Take one [facility] 200 mcg 2-15 tablet ity of tablet 00:00: night [place] 00 before Medical procedure, Branch then take one tablet morning of procedure miSOPROStoL 2023-0 Yes [id number] Take one [facility] 200 mcg 2-15 tablet ity of tablet 00:00: night [place] 00 before Medical procedure, Branch then take one tablet morning of procedure miSOPROStoL 2023-0 Yes [id number] Take one [facility] 200 mcg 2-15 tablet ity of tablet 00:00: night [place] 00 before Medical procedure, Branch then take one tablet morning of procedure miSOPROStoL 2023-0 Yes [id number] Take one [facility] 200 mcg 2-15 tablet ity of tablet 00:00: night [place] 00 before Medical procedure, Branch then take one tablet morning of procedure miSOPROStoL 2023-0 Yes [id number] Take one [facility] 200 mcg 2-15 tablet ity of tablet 00:00: night [place] 00 before Medical procedure, Branch then take one tablet morning of procedure miSOPROStoL 2023-0 Yes [id number] Take one [facility] 200 mcg 2-15 tablet ity of tablet 00:00: night [place] 00 before Medical procedure, Branch then take one tablet morning of procedure miSOPROStoL 2023-0 2023- No [id number] Take one [facility] 200 mcg 2-15 02-28 tablet ity of tablet 00:00: 00:00 night [place] 00 :00 before Medical procedure, Branch then take one tablet morning of procedure miSOPROStoL 2023-0 2023- No [id number] Take one [facility] 200 mcg 2-15 02-28 tablet ity of tablet 00:00: 00:00 night [place] 00 :00 before Medical procedure, Branch then take one tablet morning of procedure metroNIDAZO 2023-0 Yes [id number] 500mg Take 1 [facility] LE 500 mg 1-31 tablet by ity o f tablet 00:00: mouth [place] 00 every 12 Medical (twelve) Branch hours. metroNIDAZO 2023-0 Yes [id number] 500mg Take 1 [facility] LE 500 mg 1-31 tablet by ity o f tablet 00:00: mouth [place] 00 every 12 Medical (twelve) Branch hours. metroNIDAZO 2023-0 Yes [id number] 500mg Take 1 [facility] LE 500 mg 1-31 tablet by ity o f tablet 00:00: mouth [place] 00 every 12 Medical (twelve) Branch hours. metroNIDAZO 2023-0 Yes [id number] 500mg Take 1 [facility] LE 500 mg 1-31 tablet by ity o f tablet 00:00: mouth [place] 00 every 12 Medical (twelve) Branch hours. metroNIDAZO 2023-0 Yes [id number] 500mg Take 1 [facility] LE 500 mg 1-31 tablet by ity o f tablet 00:00: mouth [place] 00 every 12 Medical (twelve) Branch hours. metroNIDAZO 3-0 Yes [id number] 500mg Take 1 [facility] LE 500 mg 1-31 tablet by ity o f tablet 00:00: mouth [place] 00 every 12 Medical (twelve) Branch hours. metroNIDAZO 3-0 Yes [id number] 500mg Take 1 [facility] LE 500 mg 1-31 tablet by ity o f tablet 00:00: mouth [place] 00 every 12 Medical (twelve) Branch hours. metroNIDAZO 3-0 Yes [id number] 500mg Take 1 [facility] LE 500 mg 1-31 tablet by ity o f tablet 00:00: mouth [place] 00 every 12 Medical (twelve) Branch hours. metroNIDAZO 3-0 Yes [id number] 500mg Take 1 [facility] LE 500 mg 1-31 tablet by ity o f tablet 00:00: mouth [place] 00 every 12 Medical (twelve) Branch hours. metroNIDAZO 3-0 Yes [id number] 500mg Take 1 [facility] LE 500 mg 1-31 tablet by ity o f tablet 00:00: mouth [place] 00 every 12 Medical (twelve) Branch hours. metroNIDAZO 3-0 Yes [id number] 500mg Take 1 [facility] LE 500 mg 1-31 tablet by ity o f tablet 00:00: mouth [place] 00 every 12 Medical (twelve) Branch hours. metroNIDAZO 3-0 Yes [id number] 500mg Take 1 [facility] LE 500 mg 1-31 tablet by ity o f tablet 00:00: mouth [place] 00 every 12 Medical (twelve) Branch hours. metroNIDAZO 3-0 Yes [id number] 500mg Take 1 [facility] LE 500 mg 1-31 tablet by ity o f tablet 00:00: mouth [place] 00 every 12 Medical (twelve) Branch hours. metroNIDAZO 3-0 Yes [id number] 500mg Take 1 [facility] LE 500 mg 1-31 tablet by ity o f tablet 00:00: mouth [place] 00 every 12 Medical (twelve) Branch hours. metroNIDAZO 3-0 Yes [id number] 500mg Take 1 [facility] LE 500 mg 1-31 tablet by ity o f tablet 00:00: mouth [place] 00 every 12 Medical (twelve) Branch hours. metroNIDAZO 2023-0 Yes [id number] 500mg Take 1 [facility] LE 500 mg 1-31 tablet by ity o f tablet 00:00: mouth [place] 00 every 12 Medical (twelve) Branch hours. metroNIDAZO 0 Yes [id number] 500mg Take 1 [facility] LE 500 mg 1-31 tablet by ity o f tablet 00:00: mouth [place] 00 every 12 Medical (twelve) Branch hours. metroNIDAZO 0 Yes [id number] 500mg Take 1 [facility] LE 500 mg 1-31 tablet by ity o f tablet 00:00: mouth [place] 00 every 12 Medical (twelve) Branch hours. metroNIDAZO 0 2022- No [id number] 500mg Take 1 [facility] LE 500 mg -- tablet by ity of tablet 00:00: 00:00 mouth [place] 00 :00 every 12 Medical (twelve) Branch hours. metroNIDAZO 0 2022- No [id number] 500mg Take 1 [facility] LE 500 mg 11-01- tablet by ity of tablet 00:00: 00:00 mouth [place] 00 :00 every 12 Medical (twelve) Branch hours. fluconazole 0 3- No [id number] 150mg Take 1 [facility] (DIFLUCAN) 11-01- tablet by ity of 150 mg 00:00: 05:59 mouth [place] tablet 00 :00 now for 1 Medical dose. Branch Meloxicam 2021-10 Yes Sakina 7.5 MG oral 2-18 [facility] Tablet 00:00: - 00 Externa l Dose 2021-10 No Unknown 2-18 00:00: 00 Dose 2021-10 No Unknown 2-18 00:00: 00 Dose 2021-10 No Unknown 2-18 00:00: 00 Meloxicam 2021-10- No Sakina 7.5 MG oral 2-18 09-12 [facility] Tablet 00:00: 00:00 - 00 :00 Externa l Dose 2021-10 No Unknown 2-16 00:00: 00 Dose 2021-10 No Unknown 2-16 00:00: 00 Dose 2021-10 No Unknown 2-16 00:00: 00 Dose 2021- No Unknown 2-16 00:00: 00 Dose 2021- No Unknown 2-16 00:00: 00 Dose 2021-10 [...] No Unknown 2-15 00:00: 00 TAKE 2 2021-10 No TABLETS BY 2-15 MOUTH 00:00: TODAY, THEN 00 TAKE 1 TABLET DAILY FOR 4 DAYS Dose 2021-10 No Unknown 2-15 00:00: 00 Dose 2021-10 No Unknown 2-15 00:00: 00 Dose 2021-10 No Unknown 2-15 00:00: 00 TAKE 1 2021-10 No TABLET BY 2-15 MOUTH EVERY 00:00: DAY 00 Dose 2021-1 No Unknown 2-15 00:00: [...] 00 :00 Mobic 7.5 Mobic 7.5 2021-1 2022- No 1{table QD Mobic 7.5 MG MG [...] No Unknown 06-09 00:00: 00 TAKE 1 2021-0 [...] 00 TAKE 1 2022-0 No CAPSULE BY 908 MOUTH TWICE 00:00: A DAY 00 Dose [...] PAIN SPRAY 2 2-0 No SPRAYS INTO - EACH 00:00: NOSTRIL [...] 7-27 MOUTH ONCE 00:: A DAY 00 escitalopra 2022-0 No 1mg [...] 00 TAKE 2 2022-0 No TABLETS BY 6- MOUTH 00:00: TAKE 1 TABLET DAILY FOR 4 DAYS TAKE 1 2-0 No TABLET - SINGLE 00:00: DOSSE 00 Dose 2-0 No Unknown 03-23 00:00: 00 TAKE 2 2022-0 No TABLETS BY 6- MOUTH 00:00: TAKE [...] metronidazo 2-0 No 1mg le 500 mg -17 tablet 00:00: 00 Dose 2-0 No Unknown [...] nasal spray,suspe nsion Dose 2021-0 No Unknown 3- 00:00: 00 fluticasone 2021-0 No 2mcg/ac [...] Dose 2021-0 No Unknown 2-16 00:00: 00 ProAir HFA [...] mg/5 00:00: mL oral 00 syrup metronidazo 2020- No 1mg le 500 mg 2-12 tablet 00:00: 00 metronidazo 2020- No 1mg le 500 mg 2-12 tablet 00:00: 00 metronidazo 2020- No 1mg le 500 mg 2-12 tablet [...] pirit one) one) 00:00: - CHI 00 [facility] Singulair Singulair 2020-0 No 1{table QD Singulair 10 MG 10 MG 2-02 t} 10 MG 00:00: 00 Kenalog Kenalog 2020-0 No 40mg Common (Triamcinol (Triamcinol 2-02 S pirit one) one) 00:00: - [facility]I 00 [facility] Singulair Singulair 2020-0 No 1{table QD Singulair 10 MG 10 MG 2-02 t} 10 MG 00:00: 00 Kenalog Kenalog 2020-0 No 40mg Common (Triamcinol (Triamcinol 2-02 S pirit one) one) 00:00: - [facility]I 00 [facility] Singulair Singulair 2020-0 No 1{table QD Singulair 10 MG 10 MG 2-02 t} 10 MG 00:00: 00 Kenalog Kenalog 2020-0 No 40mg Common (Triamcinol (Triamcinol 2-02 S pirit one) one) 00:00: - [facility]I 00 [facility] Singulair Singulair 2020-0 No 1{table QD Singulair 10 MG 10 MG 2-02 t} 10 MG 00:00: 00 Kenalog Kenalog 2020-0 No 40mg Common (Triamcinol (Triamcinol 2-02 S pirit one) one) 00:00: - [facility] 00 [facility] Singulair Singulair 2020-0 No 1{table QD Singulair 10 MG 10 MG 2-02 t} 10 MG 00:00: 00 Kenalog Kenalog 2020-0 No 40mg Common (Triamcinol (Triamcinol 2-02 S pirit one) one) 00:00: - [facility]I 00 [facility] Acetaminoph Acetaminoph 2020- No 1{table BID [...] Finger 00:00: For Finger - - - Albuterol Albuterol 2019-10 No 2{puffs 6xD [...] Finger 00:00: For Finger - - - Albuterol Albuterol 2019-10 No 2{puffs 6xD Albuterol Sulfate HFA Sulfate HFA 2-22 _as_nee Sulfate 108 (90 108 (90 00:00: ded} HFA 108 Base) Base) 00 (90 Base) MCG/ACT MCG/ACT MCG/ACT Pulse Pulse 2019- No Pulse Oximeter Oximeter 2-22 Oximeter For Finger For Finger 00:00: For Finger - - - Albuterol Albuterol 2019-10 No 2{puffs 6xD [...] Finger 00:00: For Finger - - - Albuterol Albuterol 2019-10 No 2{puffs 6xD Albuterol Sulfate HFA Sulfate HFA 2-22 _as_nee Sulfate 108 (90 108 (90 00:00: ded} HFA 108 Base) Base) 00 (90 Base) MCG/ACT MCG/ACT MCG/ACT Pulse Pulse 2019-10 No Pulse Oximeter Oximeter 2-22 Oximeter For Finger For Finger 00:00: For Finger - - - Albuterol Albuterol 2019-10 No 2{puffs 6xD [...] 00:00: 00:00 MG 00 :00 Flagyl 500 No 1mg mg tablet 06-26 00:00: 00 [...] 06-13 Spiri t 00:00: - [facility]I 00 [facility] Solumedrol Solumedrol 2018-0 No 125mg Common 125mg/2ml 125mg/2ml 06-13 Spiri t 00:00: - [facility]I 00 [facility] Solumedrol Solumedrol 2018-0 No 125mg Common 125mg/2ml 125mg/2ml 06-13 Spiri t 00:00: - [facility]I 00 [facility] Solumedrol Solumedrol 2018-0 No 125mg Common 125mg/2ml 125mg/2ml 9-12 Spiri t 00:00: - [facility]I 00 [facility] Solumedrol Solumedrol 2018-0 No 125mg Common 125mg/2ml 125mg/2ml 9-12 Spiri t 00:00: - [facility]I 00 [facility] Solumedrol Solumedrol 2018-0 No 125mg Common 125mg/2ml 125mg/2ml 9-12 Spiri t 00:00: - CHI 00 [facility] ProAir HFA ProAir HFA 2017-0 Yes [place] 2 puffs as Common 7-17 [place] needed for Spirit 00:00: sob/wheezi - CHI 00 ng [facility] ProAir HFA ProAir HFA 2017-0 No [...] Base) - CHI MCG/ACT MCG/ACT 00 MCG/ACT [facility] ProAir HFA ProAir HFA 0 No ProAir HFA 108 (90 108 (90 7-17 108 (90 Base) Base) 00:00: Base) MCG/ACT MCG/ACT 00 MCG/ACT ProAir HFA ProAir HFA 0 No ProAir HFA 108 (90 108 (90 7-17 108 (90 Base) Base) 00:00: Base) MCG/ACT MCG/ACT 00 MCG/ACT Solumedrol Solumedrol 0 No 125mg Common 125mg/2ml 125mg/2ml 6-22 Spiri t 00:00: - CHI 00 [facility] Solumedrol Solumedrol 2018-0 No 125mg Common 125mg/2ml 125mg/2ml 03-23 Spiri t 00:00: - [facility]I 00 [facility] Solumedrol Solumedrol 2018-0 No 125mg Common 125mg/2ml 125mg/2ml 03-23 Spiri t 00:00: - [facility]I 00 [facility] Solumedrol Solumedrol 2018-0 No 125mg Common 125mg/2ml 125mg/2ml 03-23 Spiri t 00:00: - [facility]I 00 [facility] Solumedrol Solumedrol 2018-0 No 125mg Common 125mg/2ml 125mg/2ml 03-23 Spiri t 00:00: - [facility] 00 [facility] Solumedrol Solumedrol 2018-0 No 125mg Common 125mg/2ml 125mg/2ml 03-23 Spiri t 00:00: - [facility]I 00 [facility] metronidazo 2018-0 No 1mg le 500 [...] pirit one) one) 00:00: - [facility]I 00 [facility] Kenalog Kenalog 2018-0 No 40mg Common (Triamcinol (Triamcinol 3-06 S pirit one) one) 00:00: - [facility] 00 [facility] Kenalog Kenalog 2018-0 No 40mg Common (Triamcinol (Triamcinol 3-06 S pirit one) one) 00:00: - [facility]I 00 [facility] Kenalog Kenalog 2018-0 No 40mg Common (Triamcinol (Triamcinol 3-06 S pirit one) one) 00:00: - [facility] 00 [facility] Kenalog Kenalog 2018-0 No 40mg Common (Triamcinol (Triamcinol 3-06 S pirit one) one) 00:00: - [facility] 00 [facility] Kenalog Kenalog 2018-0 No 40mg Common (Triamcinol (Triamcinol 3-06 S pirit one) one) 00:00: - [facility]I 00 [facility] fluticasone 2018-0 No 2mcg/ac 50 1-03 [...] of tablet 00:00: mouth [place] 00 daily. [facility] 2016-10 Yes 1{tbl} Take 1 Un renate ne 0.35 mg 2-01 tablet by ity of tablet 00:00: mouth [place] [address] [facility]} Take 1 Un renate ne 0.35 mg 2-01 tablet by ity of tablet 00:00: mouth [place] [address] [facility] 1{tbl} Take 1 Un renate ne 0.35 mg 2-01 tablet by ity of tablet 00:00: mouth [place] 00 daily. [facility] 2016-10 Yes 1{tbl} Take 1 Un renate ne 0.35 mg 2-01 tablet by ity of tablet 00:00: mouth [place] 00 daily. [facility] 2016-10 Yes 1{tbl} Take 1 Un renate ne 0.35 mg 2-01 tablet by ity of tablet 00:00: mouth [place] 00 daily. [facility] 2016-10 Yes 1{tbl} Take 1 Un renate ne 0.35 mg 2-01 tablet by ity of tablet 00:00: mouth [place] 00 daily. [facility] 2016-10 Yes 1{tbl} Take 1 Un renate ne 0.35 mg 2-01 tablet by ity of tablet 00:00: mouth [place] 00 daily. [facility] 2016-10 Yes 1{tbl} Take 1 Un renate ne 0.35 mg 2-01 tablet by ity of tablet 00:00: mouth [place] 00 daily. [facility] 2016-10 Yes 1{tbl} Take 1 Un renate ne 0.35 mg 2-01 tablet by ity of tablet 00:00: mouth [place] 00 daily. [facility] 2016-10 Yes 1{tbl} Take 1 Un renate ne 0.35 mg 2-01 tablet by ity of tablet 00:00: mouth [place] 00 daily. [facility] 2016-10 Yes 1{tbl} Take 1 Un renate ne 0.35 mg 2-01 tablet by ity of tablet 00:00: mouth [place] [address] [facility] 1{tbl} Take 1 Un renate ne 0.35 mg 2-01 tablet by ity of tablet 00:00: mouth [place] 00 daily. [facility] 2016-10 Yes 1{tbl} Take 1 Un renate ne 0.35 mg 2-01 tablet by ity of tablet 00:00: mouth [place] [address] [facility] 1{tbl} Take 1 Un renate ne 0.35 mg 2-01 tablet by ity of tablet 00:00: mouth [place] [address] [facility] Yes 1{tbl} Take 1 Un renate ne 0.35 mg 2-01 tablet by ity of tablet 00:00: mouth [place] 00 daily. [facility] 2016-10 Yes 1{tbl} Take 1 Un renate ne 0.35 mg 2-01 tablet by ity of tablet 00:00: mouth [place] 00 daily. [facility] 2016-10 Yes 1{tbl} Take 1 Un renate ne 0.35 mg 2-01 tablet by ity of tablet 00:00: mouth [place] 00 daily. [facility] 2016-10 Yes 1{tbl} Take 1 Un renate ne 0.35 mg 2-01 tablet by ity of tablet 00:00: mouth [place] 00 daily. [facility] 2016-10 Yes 1{tbl} Take 1 Un renate ne 0.35 mg 2-01 tablet by ity of tablet 00:00: mouth [place] 00 daily. [facility] 2016-10 Yes 1{tbl} Take 1 Un renate ne 0.35 mg 2-01 tablet by ity of tablet 00:00: mouth [place] 00 daily. [facility] 2016-10 Yes 1{tbl} Take 1 Un renate ne 0.35 mg 2-01 tablet by ity of tablet 00:00: mouth [place] 00 daily. [facility] 2016-10 Yes 1{tbl} Take 1 Un renate ne 0.35 mg 2-01 tablet by ity of tablet 00:00: mouth [place] 00 daily. [facility] 2016-10 Yes 1{tbl} Take 1 Un renate ne 0.35 mg 2-01 tablet by ity of tablet 00:00: mouth [place] 00 daily. [facility] 2016-10 Yes 1{tbl} Take 1 Un renate ne 0.35 mg 2-01 tablet by ity of tablet 00:00: mouth [place] 00 daily. [facility] 2016-10 Yes 1{tbl} Take 1 Un renate ne 0.35 mg 2-01 tablet by ity of tablet 00:00: mouth [place] 00 daily. [facility] 2016-10 Yes 1{tbl} Take 1 Un renate ne 0.35 mg 2-01 tablet by ity of tablet 00:00: mouth [place] 00 daily. [facility] 2016-10 Yes 1{tbl} Take 1 Un renate ne 0.35 mg 2-01 tablet by ity of tablet 00:00: mouth [place] 00 daily. [facility] 2016-10 Yes 1{tbl} Take 1 Un renate ne 0.35 mg 2-01 tablet by ity of tablet 00:00: mouth [place] 00 daily. [facility] 2016-10 Yes 1{tbl} Take 1 Un renate ne 0.35 mg 2-01 tablet by ity of tablet 00:00: mouth [place] 00 daily. [facility] 2016-10 Yes 1{tbl} Take 1 Un renate ne 0.35 mg 2-01 tablet by ity of tablet 00:00: mouth [place] 00 daily. [facility] 2016-10 Yes 1{tbl} Take 1 Un renate ne 0.35 mg 2-01 tablet by ity of tablet 00:00: mouth [place] 00 daily. [facility] 2016-10 Yes 1{tbl} Take 1 Un renate ne 0.35 mg 2-01 tablet by ity of tablet 00:00: mouth [place] 00 daily. [facility] 2016-10 Yes 1{tbl} Take 1 Un renate ne 0.35 mg 2-01 tablet by ity of tablet 00:00: mouth [place] 00 daily. [facility] 2016-10 Yes 1{tbl} Take 1 Un renate ne 0.35 mg 2-01 tablet by ity of tablet 00:00: mouth [place] 00 daily. [facility] 2016-10 Yes 1{tbl} Take 1 Un renate ne 0.35 mg 2-01 tablet by ity of tablet 00:00: mouth [place] 00 daily. [facility] 2016-10 Yes 1{tbl} Take 1 Un renate ne 0.35 mg 2-01 tablet by ity of tablet 00:00: mouth [place] 00 daily. [facility] 2016-10 Yes 1{tbl} Take 1 Un renate ne 0.35 mg 2-01 tablet by ity of tablet 00:00: mouth [place] 00 daily. [facility] 2016-10 Yes 1{tbl} Take 1 Un renate ne 0.35 mg 2-01 tablet by ity of tablet 00:00: mouth [place] 00 daily. [facility] 2016-10 Yes 1{tbl} Take 1 Un renate ne 0.35 mg 2-01 tablet by ity of tablet 00:00: mouth [place] 00 daily. [facility] 2016-10 Yes 1{tbl} Take 1 Un renate ne 0.35 mg 2-01 tablet by ity of tablet 00:00: mouth [place] 00 daily. [facility] 2016-10 Yes 1{tbl} Take 1 Un renate ne 0.35 mg 2-01 tablet by ity of tablet 00:00: mouth [place] 00 daily. [facility] 2016-10 Yes 1{tbl} Take 1 Un renate ne 0.35 mg 2-01 tablet by ity of tablet 00:00: mouth [place] 00 daily. [facility] 2016-10 Yes 1{tbl} Take 1 Un renate ne 0.35 mg 2-01 tablet by ity of tablet 00:00: mouth [place] 00 daily. [facility] 2016-10 Yes 1{tbl} Take 1 Un renate ne 0.35 mg 2-01 tablet by ity of tablet 00:00: mouth [place] 00 daily. [facility] 2016-10 Yes 1{tbl} Take 1 Un renate ne 0.35 mg 2-01 tablet by ity of tablet 00:00: mouth [place] 00 daily. [facility] 2016-10 Yes 1{tbl} Take 1 Un renate ne 0.35 mg 2-01 tablet by ity of tablet 00:00: mouth [place] 00 daily. [facility] 2016-10 Yes 1{tbl} Take 1 Un renate ne 0.35 mg 2-01 tablet by ity of tablet 00:00: mouth [place] 00 daily. [facility] 2016-10 Yes 1{tbl} Take 1 Un renate ne 0.35 mg 2-01 tablet by ity of tablet 00:00: mouth [place] 00 daily. [facility] 2016-10 Yes 1{tbl} Take 1 Un renate ne 0.35 mg 2-01 tablet by ity of tablet 00:00: mouth [place] 00 daily. [facility] 2016-10 Yes 1{tbl} Take 1 Un renate ne 0.35 mg 2-01 tablet by ity of tablet 00:00: mouth [place] 00 daily. [facility] 2016-10 Yes 1{tbl} Take 1 Un renate ne 0.35 mg 2-01 tablet by ity of tablet 00:00: mouth [place] 00 daily. [facility] 2016-10 Yes 1{tbl} Take 1 Un renate ne 0.35 mg 2-01 tablet by ity of tablet 00:00: mouth [place] 00 daily. [facility] 2016-10 Yes 1{tbl} Take 1 Un renate ne 0.35 mg 2-01 tablet by ity of tablet 00:00: mouth [place] 00 daily. [facility] 2016-10 Yes 1{tbl} Take 1 Un renate ne 0.35 mg 2-01 tablet by ity of tablet 00:00: mouth [place] 00 daily. [facility] 2016-10 Yes 1{tbl} Take 1 Un renate ne 0.35 mg 2-01 tablet by ity of tablet 00:00: mouth [place] 00 daily. [facility] 2016-10 Yes 1{tbl} Take 1 Un renate ne 0.35 mg 2-01 tablet by ity of tablet 00:00: mouth [place] 00 daily. [facility] 2016-10- No 1{tbl} Take 1 U nivers ne 0.35 mg 2-01 03-28 tablet by ity of tablet 00:00: 00:00 mouth [place] 00 :00 daily. [facility] 2016-10- No 1{tbl} Take 1 U nivers ne 0.35 mg 2-01 03-28 tablet by ity of tablet 00:00: 00:00 mouth [place] 00 :00 daily. [facility] 2016-10- No 1{tbl} Take 1 U nivers ne 0.35 mg 2-12-27 tablet by ity of tablet 00:00: 00:00 mouth [place] 00 :00 daily. [facility] 2016-10- No 1{tbl} Take 1 U nivers ne 0.35 mg 2-12-27 tablet by ity of tablet 00:00: 00:00 mouth [place] 00 :00 daily. [facility] 2016-10- No 1{tbl} Take 1 U nivers ne 0.35 mg 2-12-27 tablet by ity of tablet 00:00: 00:00 mouth [place] 00 :00 daily. [facility] 2016-10- No 1{tbl} Take 1 U nivers ne 0.35 mg 2-12-27 tablet by ity of tablet 00:00: 00:00 mouth [place] 00 :00 daily. [facility] 2016-10- No 1{tbl} Take 1 U nivers ne 0.35 mg 2-12-27 tablet by ity of tablet 00:00: 00:00 mouth [place] 00 :00 daily. [facility] Branch cyclobenzap 2016-10 Yes 5mg [...] Branch hours as needed for Pain. pentazocine 2016- Yes 1{tbl} Take 1 Un [...] 1{tbl} Take 1 U nivers -naloxone 1-05 - tablet by ity of 50-0.5 mg 00:00: 00:00 mouth [place] tablet 00 :00 every 6 Medical (six) Branch hours as needed for Pain. pentazocine 2016-10- No 1{tbl} Take 1 U nivers -naloxone 1-05 03-28 tablet by ity of 50-0.5 mg 00:00: 00:00 mouth [place] tablet 00 :00 every 6 Medical (six) Branch hours as needed for Pain. pentazocine 2016-10 No 1{tbl} Take 1 U nivers -naloxone 1-05 03-28 tablet by ity of 50-0.5 mg 00:00: 00:00 mouth [place] tablet 00 :00 every 6 Medical (six) Branch hours as needed for Pain. pentazocine 2016-10 No 1{tbl} Take 1 U nivers -naloxone 1-05 03-28 tablet by ity of 50-0.5 mg 00:00: 00:00 mouth [place] tablet 00 :00 every 6 Medical (six) Branch hours as needed for Pain. pentazocine 2016-10 No 1{tbl} Take 1 U nivers -naloxone 1-05 -28 tablet by ity of 50-0.5 mg 00:00: 00:00 mouth [place] tablet 00 :00 every 6 Medical (six) Branch hours as needed for Pain. pentazocine 2016-10 No 1{tbl} Take 1 U nivers -naloxone [...] Take 1 Uni vers rine 5 mg -01 31-28 tablet by ity of tablet 00:00: 00:00 [...] HOURS Branch NEEDED FOR MUSCLE SPASMS. cyclobenzap 2016-2022- No TAKE 1 Uni vers rine 10 mg 8-28 02-28 TABLET BY ity of tablet 00:00: 00:00 MOUTH [place] 00 :00 EVERY 8 Medical HOURS Branch NEEDED FOR MUSCLE SPASMS. cyclobenzap 2016-2022- No TAKE 1 Uni vers rine 10 [...] 5mL Take 5 mL U nivers ne-prometha -15 by mouth 4 it y of zine-codein [place] (PROMETHAZI daily as Bran ch NE needed for VC-CODEINE) Cough. 6.25-5-10 mg/5 mL syrup phenylephri 2016-0 2022- No 5mL Take 5 mL Univers [...] as Branch needed for Cough. benzonatate 2014-0 3- No 100mg Take 1 Cap Univers (TESSALON 06-13 by mouth 3 ity of PERLES) 100 00:00: 00:00 (three) [place] mg capsule 00 :00 times Medical daily as Branch needed for Cough. benzonatate 2022- No 100mg Take 1 Cap Univers (TESSALON 06-13 by mouth 3 ity of PERLES) 100 00:00: 00:00 (three) [place] capsule 00 :00 times Medical daily as Branch needed for Cough. Norethindro Norethindro Yes [place] not Common ne ne [place] defined [facility] IUD's IUD's Yes [place] Paragard Common [place] IUD [facility] Flonase Flonase Yes [place] not Common [place] defined [facility] ZyrTEC ZyrTEC Yes [place] not Common [place] defined [facility] Vitamin B12 Vitamin B12 Yes [place] (OTC) 1 Common [place] tablet [facility] Azithromyci Azithromyci No Azithromyc n [...] Norethindro No Norethindr Common ne ne one [facility] Ferrous Ferrous No Ferrous Sulfate [...] No IUD's IUD's IUD's No IUD's Common [facility] Benadryl Benadryl No Benadryl Allergy 25 Allergy 25 Allergy 25 MG MG MG Azithromyci Azithromyci No Azithromyc n 500 MG n 500 MG in 500 MG Vitamin B12 Vitamin B12 No Vitamin Common mg mg B12 mg [facility] Montelukast Montelukast No Montelukas Sodium 10 Sodium 10 t Sodium MG MG 10 MG Tylenol Tylenol No Tylenol Cetirizine Cetirizine No Cetirizine HCl 10 MG HCl 10 MG HCl 10 MG methylPREDN methylPREDN No methylPRED ISolone 4 ISolone 4 NISolone 4 MG MG MG Meloxicam Meloxicam No Meloxicam 7.5 MG 7.5 MG 7.5 MG ZyrTEC ZyrTEC No ZyrTEC Common [facility] Ferrous Ferrous No Ferrous Sulfate [...] Flonase Flonase No Flonase [facility] Vitamin D Vitamin D No 1{capsu QD Vitamin D Common 50 MCG 50 MCG le} 50 MCG [facility] (1999) (1999) (1999) [facility] Norethindro Norethindro No Norethindr ne [...] Immunization Name Immunization Name Influenza, 2022-06-21 Completed Sakina Finley - Injectable, Mdck, 00:00:00 Externa l Preservative Free, Quadrivalent Influenza, 2022-06-21 Completed injectable, Madin 00:00:00 [place] Canine Kidney, preservative-free, quadrivalent Influenza, 2022-06-21 Completed injectable, Madin 00:00:00 [place] Canine Kidney, preservative-free, quadrivalent Influenza, 2022-06-21 Completed injectable, Madin 00:00:00 [place] Canine Kidney, preservative-free, quadrivalent Influenza, 2022-06-21 Completed injectable, Madin 00:00:00 [place] Canine Kidney, preservative-free, quadrivalent Influenza, 2022-06-21 Completed injectable, Madin 00:00:00 [place] Canine Kidney, preservative-free, quadrivalent Influenza, 2022-06-21 Completed injectable, Madin 00:00:00 [place] Canine Kidney, preservative-free, quadrivalent Influenza, 2022-06-21 Completed injectable, Madin 00:00:00 [place] Canine Kidney, preservative-free, quadrivalent Influenza Virus 2021-07-06 Completed Sakina ovalles - Vaccine, No 00:00:00 External Preserv, age 6 months and up SARS-COV-2 COVID-19 2021-01-09 Completed Unive rsity of PFIZER VACCINE 00:00:00 [facility] SARS-COV-2 COVID-19 2021-01-09 Completed Unive rsity of PFIZER VACCINE 00:00:00 [facility] SARS-COV-2 COVID-19 2021-01-09 Completed Unive rsity of PFIZER VACCINE 00:00:00 [facility] SARS-COV-2 COVID-19 2021-01-09 Completed Unive rsity of PFIZER VACCINE 00:00:00 [facility] SARS-COV-2 COVID-19 2021-01-09 Completed Unive rsity of PFIZER VACCINE 00:00:00 [facility] SARS-COV-2 COVID-19 2021-01-09 Completed Unive rsity of PFIZER VACCINE 00:00:00 [facility] SARS-COV-2 COVID-19 2021-01-09 Completed Unive rsity of PFIZER VACCINE 00:00:00 [facility] SARS-COV-2 COVID-19 2021-01-09 Completed Unive rsity of PFIZER VACCINE 00:00:00 [facility] SARS-COV-2 COVID-19 2021-01-09 Completed Unive rsity of PFIZER VACCINE 00:00:00 [facility] SARS-COV-2 COVID-19 2021-01-09 Completed Unive rsity of PFIZER VACCINE 00:00:00 [facility] SARS-COV-2 COVID-19 2021-01-09 Completed Unive rsity of PFIZER VACCINE 00:00:00 [facility] SARS-COV-2 COVID-19 2021-01-09 Completed Unive rsity of PFIZER VACCINE 00:00:00 [facility] SARS-COV-2 COVID-19 2021-01-09 Completed Unive rsity of PFIZER VACCINE 00:00:00 [facility] SARS-COV-2 COVID-19 2021-01-09 Completed Unive rsity of PFIZER VACCINE 00:00:00 [facility] SARS-COV-2 COVID-19 2021-01-09 Completed Unive rsity of PFIZER VACCINE 00:00:00 [facility] SARS-COV-2 COVID-19 2021-01-09 Completed Unive rsity of PFIZER VACCINE 00:00:00 [facility] SARS-COV-2 COVID-19 2021-01-09 Completed Unive rsity of PFIZER VACCINE 00:00:00 [facility] SARS-COV-2 COVID-19 2021-01-09 Completed Unive rsity of PFIZER VACCINE 00:00:00 [facility] SARS-COV-2 COVID-19 2021-01-09 Completed Unive rsity of PFIZER VACCINE 00:00:00 [facility] SARS-COV-2 COVID-19 2021-01-09 Completed Unive rsity of PFIZER VACCINE 00:00:00 [facility] SARS-COV-2 COVID-19 2021-01-09 Completed Unive rsity of PFIZER VACCINE 00:00:00 [facility] SARS-COV-2 COVID-19 2021-01-09 Completed Unive rsity of PFIZER VACCINE 00:00:00 [facility] SARS-COV-2 COVID-19 2021-01-09 Completed Unive rsity of PFIZER VACCINE 00:00:00 [facility] SARS-COV-2 COVID-19 2021-01-09 Completed Unive rsity of PFIZER VACCINE 00:00:00 [facility] SARS-COV-2 COVID-19 2021-01-09 Completed Unive rsity of PFIZER VACCINE 00:00:00 [facility] SARS-COV-2 COVID-19 2021-01-09 Completed Unive rsity of PFIZER VACCINE 00:00:00 [facility] SARS-COV-2 COVID-19 2021-01-09 Completed Unive rsity of PFIZER VACCINE 00:00:00 [facility] SARS-COV-2 COVID-19 2021-01-09 Completed Unive rsity of PFIZER VACCINE 00:00:00 [facility] SARS-COV-2 COVID-19 2021-01-09 Completed Unive rsity of PFIZER VACCINE 00:00:00 [place] [facility] SARS-COV-2 COVID-19 2021-01-09 Completed Unive rsity of PFIZER VACCINE 00:00:00 [facility] SARS-COV-2 COVID-19 2021-01-09 Completed Unive rsity of PFIZER VACCINE 00:00:00 [facility] SARS-COV-2 COVID-19 2021-01-09 Completed Unive rsity of PFIZER VACCINE 00:00:00 [facility] SARS-COV-2 COVID-19 2021-01-09 Completed Unive rsity of PFIZER VACCINE 00:00:00 [facility] SARS-COV-2 COVID-19 2021-01-09 Completed Unive rsity of PFIZER VACCINE 00:00:00 [facility] SARS-COV-2 COVID-19 2021-01-09 Completed Unive rsity of PFIZER VACCINE 00:00:00 [facility] SARS-COV-2 COVID-19 2021-01-09 Completed Unive rsity of PFIZER VACCINE 00:00:00 [facility] SARS-COV-2 COVID-19 2021-01-09 Completed Unive rsity of PFIZER VACCINE 00:00:00 [facility] SARS-COV-2 COVID-19 2021-01-09 Completed Unive rsity of PFIZER VACCINE 00:00:00 [facility] SARS-COV-2 COVID-19 2021-01-09 Completed Unive rsity of PFIZER VACCINE 00:00:00 [facility] SARS-COV-2 COVID-19 2021-01-09 Completed Unive rsity of PFIZER VACCINE 00:00:00 [facility] SARS-COV-2 COVID-19 2021-01-09 Completed Unive rsity of PFIZER VACCINE 00:00:00 [facility] SARS-COV-2 COVID-19 2021-01-09 Completed Unive rsity of PFIZER VACCINE 00:00:00 [facility] SARS-COV-2 COVID-19 2021-01-09 Completed Unive rsity of PFIZER VACCINE 00:00:00 [facility] SARS-COV-2 COVID-19 2021-01-09 Completed Unive rsity of PFIZER VACCINE 00:00:00 [facility] SARS-COV-2 COVID-19 2021-01-09 Completed Unive rsity of PFIZER VACCINE 00:00:00 [place] [facility] SARS-COV-2 COVID-19 2021-01-09 Completed Unive rsity of PFIZER VACCINE 00:00:00 [facility] SARS-COV-2 COVID-19 2021-01-09 Completed Unive rsity of PFIZER VACCINE 00:00:00 [facility] SARS-COV-2 COVID-19 2021-01-09 Completed Unive rsity of PFIZER VACCINE 00:00:00 [facility] SARS-COV-2 COVID-19 2021-01-09 Completed Unive rsity of PFIZER VACCINE 00:00:00 [facility] SARS-COV-2 COVID-19 2021-01-09 Completed Unive rsity of PFIZER VACCINE 00:00:00 [facility] SARS-COV-2 COVID-19 2021-01-09 Completed Unive rsity of PFIZER VACCINE 00:00:00 [facility] SARS-COV-2 COVID-19 2021-01-09 Completed Unive rsity of PFIZER VACCINE 00:00:00 [facility] SARS-COV-2 COVID-19 2021-01-09 Completed Unive rsity of PFIZER VACCINE 00:00:00 [facility] SARS-COV-2 COVID-19 2021-01-09 Completed Unive rsity of PFIZER VACCINE 00:00:00 [facility] SARS-COV-2 COVID-19 2021-01-09 Completed Unive rsity of PFIZER VACCINE 00:00:00 [facility] SARS-COV-2 COVID-19 2021-01-09 Completed Unive rsity of PFIZER VACCINE 00:00:00 [facility] SARS-COV-2 COVID-19 2021-01-09 Completed Unive rsity of PFIZER VACCINE 00:00:00 [facility] SARS-COV-2 COVID-19 2021-01-09 Completed Unive rsity of PFIZER VACCINE 00:00:00 [facility] SARS-COV-2 COVID-19 2021-01-09 Completed Unive rsity of PFIZER VACCINE 00:00:00 [facility] SARS-COV-2 COVID-19 2021-01-09 Completed Unive rsity of PFIZER VACCINE 00:00:00 [facility] SARS-COV-2 COVID-19 2021-01-09 Completed Unive rsity of PFIZER VACCINE 00:00:00 [facility] SARS-COV-2 COVID-19 2021-01-09 Completed Unive rsity of PFIZER VACCINE 00:00:00 [facility] SARS-COV-2 COVID-19 2021-01-09 Completed Unive rsity of PFIZER VACCINE 00:00:00 [facility] SARS-COV-2 COVID-19 2021-01-09 Completed Unive rsity of PFIZER VACCINE 00:00:00 [facility] SARS-COV-2 COVID-19 2021-01-09 Completed Unive rsity of PFIZER VACCINE 00:00:00 [facility] SARS-COV-2 COVID-19 2021-01-09 Completed Unive rsity of PFIZER VACCINE 00:00:00 [facility] SARS-COV-2 COVID-19 2021-01-09 Completed Unive rsity of PFIZER VACCINE 00:00:00 [facility] SARS-COV-2 COVID-19 2021-01-09 Completed Unive rsity of PFIZER VACCINE 00:00:00 [facility] SARS-COV-2 COVID-19 2021-01-09 Completed Unive rsity of PFIZER VACCINE 00:00:00 [facility] SARS-COV-2 COVID-19 2021-01-09 Completed Unive rsity of PFIZER VACCINE 00:00:00 [facility] SARS-COV-2 COVID-19 2021-01-09 Completed Unive rsity of PFIZER VACCINE 00:00:00 [facility] SARS-COV-2 COVID-19 2021-01-09 Completed Unive rsity of PFIZER VACCINE 00:00:00 [facility] SARS-COV-2 COVID-19 2021-01-09 Completed Unive rsity of PFIZER VACCINE 00:00:00 [facility] SARS-COV-2 COVID-19 2021-01-09 Completed Unive rsity of PFIZER VACCINE 00:00:00 [facility] SARS-COV-2 COVID-19 2021-01-09 Completed Unive rsity of PFIZER VACCINE 00:00:00 [facility] SARS-COV-2 COVID-19 2021-01-09 Completed Unive rsity of PFIZER VACCINE 00:00:00 [facility] SARS-COV-2 COVID-19 2021-01-09 Completed Unive rsity of PFIZER VACCINE 00:00:00 [facility] SARS-COV-2 COVID-19 2021-01-09 Completed Unive rsity of PFIZER VACCINE 00:00:00 [facility] SARS-COV-2 COVID-19 2021-01-09 Completed Unive rsity of PFIZER VACCINE 00:00:00 [facility] SARS-COV-2 COVID-19 2021-01-09 Completed Unive rsity of PFIZER VACCINE 00:00:00 [facility] SARS-COV-2 COVID-19 2021-01-09 Completed Unive rsity of PFIZER VACCINE 00:00:00 [facility] SARS-COV-2 COVID-19 2021-01-09 Completed Unive rsity of PFIZER VACCINE 00:00:00 [facility] SARS-COV-2 COVID-19 2021-01-09 Completed Unive rsity of PFIZER VACCINE 00:00:00 [facility] SARS-COV-2 COVID-19 2021-01-09 Completed Unive rsity of PFIZER VACCINE 00:00:00 [facility] SARS-COV-2 COVID-19 2021-01-09 Completed Unive rsity of PFIZER VACCINE 00:00:00 [facility] SARS-COV-2 COVID-19 2021-01-09 Completed Unive rsity of PFIZER VACCINE 00:00:00 [facility] SARS-COV-2 COVID-19 2021-01-09 Completed Unive rsity of PFIZER VACCINE 00:00:00 [facility] SARS-COV-2 COVID-19 2021-01-09 Completed Unive rsity of PFIZER VACCINE 00:00:00 [facility] SARS-COV-2 COVID-19 2021-01-09 Completed Unive rsity of PFIZER VACCINE 00:00:00 [facility] SARS-COV-2 COVID-19 2021-01-09 Completed Unive rsity of PFIZER VACCINE 00:00:00 [facility] SARS-COV-2 COVID-19 2021-01-09 Completed Unive rsity of PFIZER VACCINE 00:00:00 [facility] SARS-COV-2 COVID-19 2021-01-09 Completed Unive rsity of PFIZER VACCINE 00:00:00 [place] [facility] SARS-COV-2 COVID-19 2021-01-09 Completed Unive rsity of PFIZER VACCINE 00:00:00 [facility] SARS-COV-2 COVID-19 2021-01-09 Completed Unive rsity of PFIZER VACCINE 00:00:00 [place] [facility] SARS-COV-2 COVID-19 2021-01-09 Completed Unive rsity of PFIZER VACCINE 00:00:00 [facility] SARS-COV-2 COVID-19 2021-01-09 Completed Unive rsity of PFIZER VACCINE 00:00:00 [facility] SARS-COV-2 COVID-19 2021-01-09 Completed Unive rsity of PFIZER VACCINE 00:00:00 [facility] SARS-COV-2 COVID-19 2021-01-09 Completed Unive rsity of PFIZER VACCINE 00:00:00 [facility] SARS-COV-2 COVID-19 2021-01-09 Completed Unive rsity of PFIZER VACCINE 00:00:00 [facility] SARS-COV-2 COVID-19 2021-01-09 Completed Unive rsity of PFIZER VACCINE 00:00:00 [facility] SARS-COV-2 COVID-19 2020-12-19 Completed Unive rsity of PFIZER VACCINE 00:00:00 [facility] SARS-COV-2 COVID-19 2020-12-19 Completed Unive rsity of PFIZER VACCINE 00:00:00 [facility] SARS-COV-2 COVID-19 2020-12-19 Completed Unive rsity of PFIZER VACCINE 00:00:00 [facility] SARS-COV-2 COVID-19 2020-12-19 Completed Unive rsity of PFIZER VACCINE 00:00:00 [facility] SARS-COV-2 COVID-19 2020-12-19 Completed Unive rsity of PFIZER VACCINE 00:00:00 [facility] SARS-COV-2 COVID-19 2020-12-19 Completed Unive rsity of PFIZER VACCINE 00:00:00 [facility] SARS-COV-2 COVID-19 2020-12-19 Completed Unive rsity of PFIZER VACCINE 00:00:00 [facility] SARS-COV-2 COVID-19 2020-12-19 Completed Unive rsity of PFIZER VACCINE 00:00:00 [facility] SARS-COV-2 COVID-19 2020-12-19 Completed Unive rsity of PFIZER VACCINE 00:00:00 [facility] SARS-COV-2 COVID-19 2020-12-19 Completed Unive rsity of PFIZER VACCINE 00:00:00 [facility] SARS-COV-2 COVID-19 2020-12-19 Completed Unive rsity of PFIZER VACCINE 00:00:00 [facility] SARS-COV-2 COVID-19 2020-12-19 Completed Unive rsity of PFIZER VACCINE 00:00:00 [facility] SARS-COV-2 COVID-19 2020-12-19 Completed Unive rsity of PFIZER VACCINE 00:00:00 [facility] SARS-COV-2 COVID-19 2020-12-19 Completed Unive rsity of PFIZER VACCINE 00:00:00 [facility] SARS-COV-2 COVID-19 2020-12-19 Completed Unive rsity of PFIZER VACCINE 00:00:00 [facility] SARS-COV-2 COVID-19 2020-12-19 Completed Unive rsity of PFIZER VACCINE 00:00:00 [facility] SARS-COV-2 COVID-19 2020-12-19 Completed Unive rsity of PFIZER VACCINE 00:00:00 [facility] SARS-COV-2 COVID-19 2020-12-19 Completed Unive rsity of PFIZER VACCINE 00:00:00 [facility] SARS-COV-2 COVID-19 2020-12-19 Completed Unive rsity of PFIZER VACCINE 00:00:00 [facility] SARS-COV-2 COVID-19 2020-12-19 Completed Unive rsity of PFIZER VACCINE 00:00:00 [facility] SARS-COV-2 COVID-19 2020-12-19 Completed Unive rsity of PFIZER VACCINE 00:00:00 [facility] SARS-COV-2 COVID-19 2020-12-19 Completed Unive rsity of PFIZER VACCINE 00:00:00 [facility] SARS-COV-2 COVID-19 2020-12-19 Completed Unive rsity of PFIZER VACCINE 00:00:00 [place] [facility] SARS-COV-2 COVID-19 2020-12-19 Completed Unive rsity of PFIZER VACCINE 00:00:00 [facility] SARS-COV-2 COVID-19 2020-12-19 Completed Unive rsity of PFIZER VACCINE 00:00:00 [facility] SARS-COV-2 COVID-19 2020-12-19 Completed Unive rsity of PFIZER VACCINE 00:00:00 [facility] SARS-COV-2 COVID-19 2020-12-19 Completed Unive rsity of PFIZER VACCINE 00:00:00 [facility] SARS-COV-2 COVID-19 2020-12-19 Completed Unive rsity of PFIZER VACCINE 00:00:00 [facility] SARS-COV-2 COVID-19 2020-12-19 Completed Unive rsity of PFIZER VACCINE 00:00:00 [facility] SARS-COV-2 COVID-19 2020-12-19 Completed Unive rsity of PFIZER VACCINE 00:00:00 [facility] SARS-COV-2 COVID-19 2020-12-19 Completed Unive rsity of PFIZER VACCINE 00:00:00 [facility] SARS-COV-2 COVID-19 2020-12-19 Completed Unive rsity of PFIZER VACCINE 00:00:00 [facility] SARS-COV-2 COVID-19 2020-12-19 Completed Unive rsity of PFIZER VACCINE 00:00:00 [facility] SARS-COV-2 COVID-19 2020-12-19 Completed Unive rsity of PFIZER VACCINE 00:00:00 [facility] SARS-COV-2 COVID-19 2020-12-19 Completed [facility] PFIZER VACCINE 00:00:00 [facility] SARS-COV-2 COVID-19 2020-12-19 Completed [facility] PFIZER VACCINE 00:00:00 [facility] SARS-COV-2 COVID-19 2020-12-19 Completed [facility] PFIZER VACCINE 00:00:00 [facility] SARS-COV-2 COVID-19 2020-12-19 Completed [facility] PFIZER VACCINE 00:00:00 [facility] SARS-COV-2 COVID-19 2020-12-19 Completed [facility] PFIZER VACCINE 00:00:00 [facility] SARS-COV-2 COVID-19 2020-12-19 Completed [facility] PFIZER VACCINE 00:00:00 [facility] SARS-COV-2 COVID-19 2020-12-19 Completed [facility] PFIZER VACCINE 00:00:00 [facility] SARS-COV-2 COVID-19 2020-12-19 Completed [facility] PFIZER VACCINE 00:00:00 [facility] SARS-COV-2 COVID-19 2020-12-19 Completed [facility] PFIZER VACCINE 00:00:00 [facility] SARS-COV-2 COVID-19 2020-12-19 Completed [facility] PFIZER VACCINE 00:00:00 [facility] SARS-COV-2 COVID-19 2020-12-19 Completed [facility] PFIZER VACCINE 00:00:00 [facility] SARS-COV-2 COVID-19 2020-12-19 Completed [facility] PFIZER VACCINE 00:00:00 [facility] SARS-COV-2 COVID-19 2020-12-19 Completed [facility] PFIZER VACCINE 00:00:00 [facility] SARS-COV-2 COVID-19 2020-12-19 Completed [facility] PFIZER VACCINE 00:00:00 [facility] SARS-COV-2 COVID-19 2020-12-19 Completed [facility] PFIZER VACCINE 00:00:00 [facility] SARS-COV-2 COVID-19 2020-12-19 Completed [facility] PFIZER VACCINE 00:00:00 [facility] SARS-COV-2 COVID-19 2020-12-19 Completed [facility] PFIZER VACCINE 00:00:00 [facility] SARS-COV-2 COVID-19 2020-12-19 Completed [facility] PFIZER VACCINE 00:00:00 [facility] SARS-COV-2 COVID-19 2020-12-19 Completed [facility] PFIZER VACCINE 00:00:00 [facility] SARS-COV-2 COVID-19 2020-12-19 Completed [facility] PFIZER VACCINE 00:00:00 [facility] SARS-COV-2 COVID-19 2020-12-19 Completed [facility] PFIZER VACCINE 00:00:00 [facility] SARS-COV-2 COVID-19 2020-12-19 Completed [facility] PFIZER VACCINE 00:00:00 [facility] SARS-COV-2 COVID-19 2020-12-19 Completed [facility] PFIZER VACCINE 00:00:00 [facility] SARS-COV-2 COVID-19 2020-12-19 Completed [facility] PFIZER VACCINE 00:00:00 [facility] SARS-COV-2 COVID-19 2020-12-19 Completed [facility] PFIZER VACCINE 00:00:00 [facility] SARS-COV-2 COVID-19 2020-12-19 Completed [facility] PFIZER VACCINE 00:00:00 [facility] SARS-COV-2 COVID-19 2020-12-19 Completed [facility] PFIZER VACCINE 00:00:00 [facility] SARS-COV-2 COVID-19 2020-12-19 Completed [facility] PFIZER VACCINE 00:00:00 [facility] SARS-COV-2 COVID-19 2020-12-19 Completed [facility] PFIZER VACCINE 00:00:00 [facility] SARS-COV-2 COVID-19 2020-12-19 Completed [facility] PFIZER VACCINE 00:00:00 [facility] SARS-COV-2 COVID-19 2020-12-19 Completed [facility] PFIZER VACCINE 00:00:00 [facility] SARS-COV-2 COVID-19 2020-12-19 Completed [facility] PFIZER VACCINE 00:00:00 [facility] SARS-COV-2 COVID-19 2020-12-19 Completed [facility] PFIZER VACCINE 00:00:00 [facility] SARS-COV-2 COVID-19 2020-12-19 Completed [facility] PFIZER VACCINE 00:00:00 [facility] SARS-COV-2 COVID-19 2020-12-19 Completed [facility] PFIZER VACCINE 00:00:00 [facility] SARS-COV-2 COVID-19 2020-12-19 Completed [facility] PFIZER VACCINE 00:00:00 [facility] SARS-COV-2 COVID-19 2020-12-19 Completed [facility] PFIZER VACCINE 00:00:00 [facility] SARS-COV-2 COVID-19 2020-12-19 Completed [facility] PFIZER VACCINE 00:00:00 [facility] SARS-COV-2 COVID-19 2020-12-19 Completed [facility] PFIZER VACCINE 00:00:00 [facility] SARS-COV-2 COVID-19 2020-12-19 Completed [facility] PFIZER VACCINE 00:00:00 [facility] SARS-COV-2 COVID-19 2020-12-19 Completed [facility] PFIZER VACCINE 00:00:00 [facility] SARS-COV-2 COVID-19 2020-12-19 Completed [facility] PFIZER VACCINE 00:00:00 [facility] SARS-COV-2 COVID-19 2020-12-19 Completed [facility] PFIZER VACCINE 00:00:00 [facility] SARS-COV-2 COVID-19 2020-12-19 Completed [facility] PFIZER VACCINE 00:00:00 [facility] SARS-COV-2 COVID-19 2020-12-19 Completed [facility] PFIZER VACCINE 00:00:00 [facility] SARS-COV-2 COVID-19 2020-12-19 Completed [facility] PFIZER VACCINE 00:00:00 [facility] SARS-COV-2 COVID-19 2020-12-19 Completed [facility] PFIZER VACCINE 00:00:00 [facility] SARS-COV-2 COVID-19 2020-12-19 Completed [facility] PFIZER VACCINE 00:00:00 [facility] SARS-COV-2 COVID-19 2020-12-19 Completed [facility] PFIZER VACCINE 00:00:00 [facility] SARS-COV-2 COVID-19 2020-12-19 Completed [facility] PFIZER VACCINE 00:00:00 [facility] SARS-COV-2 COVID-19 2020-12-19 Completed [facility] PFIZER VACCINE 00:00:00 [facility] SARS-COV-2 COVID-19 2020-12-19 Completed [facility] PFIZER VACCINE 00:00:00 [facility] SARS-COV-2 COVID-19 2020-12-19 Completed [facility] PFIZER VACCINE 00:00:00 [facility] SARS-COV-2 COVID-19 2020-12-19 Completed [facility] PFIZER VACCINE 00:00:00 [facility] SARS-COV-2 COVID-19 2020-12-19 Completed [facility] PFIZER VACCINE 00:00:00 [facility] SARS-COV-2 COVID-19 2020-12-19 Completed [facility] PFIZER VACCINE 00:00:00 [facility] SARS-COV-2 COVID-19 2020-12-19 Completed [facility] PFIZER VACCINE 00:00:00 [facility] SARS-COV-2 COVID-19 2020-12-19 Completed [facility] PFIZER VACCINE 00:00:00 [facility] SARS-COV-2 COVID-19 2020-12-19 Completed [facility] PFIZER VACCINE 00:00:00 [facility] SARS-COV-2 COVID-19 2020-12-19 Completed [facility] PFIZER VACCINE 00:00:00 [facility] SARS-COV-2 COVID-19 2020-12-19 Completed [facility] PFIZER VACCINE 00:00:00 [facility] SARS-COV-2 COVID-19 2020-12-19 Completed [facility] PFIZER VACCINE 00:00:00 [facility] SARS-COV-2 COVID-19 2020-12-19 Completed [facility] PFIZER VACCINE 00:00:00 [facility] SARS-COV-2 COVID-19 2020-12-19 Completed [facility] PFIZER VACCINE 00:00:00 [facility] SARS-COV-2 COVID-19 2020-12-19 Completed [facility] PFIZER VACCINE 00:00:00 [facility] SARS-COV-2 COVID-19 2020-12-19 Completed [facility] PFIZER VACCINE 00:00:00 [facility] Kenalog Kenalog 2020-11-03 Completed [facility] - (Triamcinolone) (Triamcinolone) 10:27:00 [facility] Kenalog Kenalog 2020-11-03 Completed [facility] - (Triamcinolone) (Triamcinolone) 10:27:00 [facility] Kenalog Kenalog 2020-11-03 Completed [facility] - (Triamcinolone) (Triamcinolone) 10:27:00 [facility] Kenalog Kenalog 2020-11-03 Completed [facility] - (Triamcinolone) (Triamcinolone) 10:27:00 [facility] Luis Kenalog 2020-11-03 Completed [facility] - (Triamcinolone) (Triamcinolone) 10:27:00 [facility] Influenza, 2019-07-16 Completed Sakina Myers, Mdck, 00:00:00 Externa l Preservative Free, Quadrivalent Fluzone Fluzone 2018-07-07 Completed [facility] - 08:47:00 [facility] Fluzone Fluzone 2018-07-07 Completed [facility] - 08:47:00 [facility] Fluzone Fluzone 2018-07-07 Completed [facility] - 08:47:00 [facility] Fluzone Fluzone 2018-07-07 Completed [facility] - 08:47:00 [facility] Fluzone Fluzone 2018-07-07 Completed [facility] - 08:47:00 [facility] Fluzone Fluzone 2018-07-07 Completed [facility] - 08:47:00 [facility] Fluzone Fluzone 2018-07-07 Completed [facility] - 08:47:00 [facility] Fluzone Fluzone 2018-07-07 Completed [facility] - 08:47:00 [facility] Fluzone Fluzone 2018-07-07 Completed [facility] - 08:47:00 [facility] Fluzone Fluzone 2018-07-07 Completed [facility] - 08:47:00 [facility] Fluzone Fluzone 2018-07-07 Completed [facility] - 08:47:00 [facility] Fluzone Fluzone 2018-07-07 Completed [facility] - 08:47:00 [facility] Fluzone Fluzone 2018-07-07 Completed [facility] - 08:47:00 [facility] Fluzone Fluzone 2018-07-07 Completed [facility] - 08:47:00 [facility] Fluzone Fluzone 2018-07-07 Completed [facility] - 08:47:00 [facility] Fluzone Fluzone 2018-07-07 Completed [facility] - 08:47:00 [facility] Influenza, 2018-07-07 Completed Sakina Finley - Seasonal, 00:00:00 External Injectable Influenza Virus 2018-07-06 Completed Sakina ovalles - Vaccine, No 00:00:00 External Preserv, age 6 months and up Solumedrol Solumedrol 2018-06-13 Completed [facility] - 125mg/2ml 125mg/2ml 09:55:00 [facility] Solumedrol Solumedrol 2018-06-13 Completed [facility] - 125mg/2ml 125mg/2ml 09:55:00 [facility] Solumedrol Solumedrol 2018-06-13 Completed [facility] - 125mg/2ml 125mg/2ml 09:55:00 [facility] Solumedrol Solumedrol 2018-06-13 Completed [facility] - 125mg/2ml 125mg/2ml 09:55:00 [facility] Solumedrol Solumedrol 2018-06-13 Completed [facility] - 125mg/2ml 125mg/2ml 09:55:00 [facility] Solumedrol Solumedrol 2018-06-13 Completed [facility] - 125mg/2ml 125mg/2ml 09:55:00 [facility] Solumedrol Solumedrol 2018-06-13 Completed [facility] - 125mg/2ml 125mg/2ml 09:55:00 [facility] Solumedrol Solumedrol 2018-06-13 Completed [facility] - 125mg/2ml 125mg/2ml 09:55:00 [facility] Solumedrol Solumedrol 2018-06-13 Completed [facility] - 125mg/2ml 125mg/2ml 09:55:00 [facility] Solumedrol Solumedrol 2018-06-13 Completed [facility] - 125mg/2ml 125mg/2ml 09:55:00 [facility] Solumedrol Solumedrol 2018-03-23 Completed [facility] - 125mg/2ml 125mg/2ml 14:40:00 [facility] Solumedrol Solumedrol 2018-03-23 Completed [facility] - 125mg/2ml 125mg/2ml 14:40:00 [facility] Solumedrol Solumedrol 2018-03-23 Completed [facility] - 125mg/2ml 125mg/2ml 14:40:00 [facility] Solumedrol Solumedrol 2018-03-23 Completed [facility] - 125mg/2ml 125mg/2ml 14:40:00 [facility] Solumedrol Solumedrol 2018-03-23 Completed [facility] - 125mg/2ml 125mg/2ml 14:40:00 [facility] Solumedrol Solumedrol 2018-03-23 Completed [facility] - 125mg/2ml 125mg/2ml 14:40:00 [facility] Solumedrol Solumedrol 2018-03-23 Completed [facility] - 125mg/2ml 125mg/2ml 14:40:00 [facility] Solumedrol Solumedrol 2018-03-23 Completed [facility] - 125mg/2ml 125mg/2ml 14:40:00 [facility] Solumedrol Solumedrol 2018-03-23 Completed [facility] - 125mg/2ml 125mg/2ml 14:40:00 [facility] Solumedrol Solumedrol 2018-03-23 Completed [facility] - 125mg/2ml 125mg/2ml 14:40:00 [facility] Kenalog Kenalog 2017-12-05 Completed [facility] - (Triamcinolone) (Triamcinolone) 13:09:00 [facility] Kenalog Kenalog 2017-12-05 Completed [facility] - (Triamcinolone) (Triamcinolone) 13:09:00 [facility] Luis Smith 2017-12-05 Completed [facility] - (Triamcinolone) (Triamcinolone) 13:09:00 [facility] Luis Smith 2017-12-05 Completed [facility] - (Triamcinolone) (Triamcinolone) 13:09:00 [facility] 2017[facility]12[facility]05 Completed [facility] - (Triamcinolone) (Triamcinolone) 13:09:00 [facility] 2017-12-05 Completed [facility] - (Triamcinolone) (Triamcinolone) 13:09:00 [facility] 2017-12-05 Completed [facility] - (Triamcinolone) (Triamcinolone) 13:09:00 [facility] 2017-12-05 Completed [facility] - (Triamcinolone) (Triamcinolone) 13:09:00 [facility] 2017-12-05 Completed [facility] - (Triamcinolone) (Triamcinolone) 13:09:00 [facility] 2017-12-05 Completed [facility] - (Triamcinolone) (Triamcinolone) 13:09:00 [facility] Influenza, 2015-07-10 Completed Sakina Finley - Seasonal, 00:00:00 External Injectable Tdap- (Boostrix, 2014-10-02 Completed Sakina sun - Adacel) 00:00:00 External TDAP 2014-10-02 Completed [facility]00 [facility] TDAP 2014-10-02 Completed [facility] 00:00:00 [facility] TDAP 2014-10-02 Completed [facility] 00:00:00 [facility] TDAP 2014-10-02 Completed [facility] 00:00:00 [facility] TDAP 2014-10-02 Completed [facility] 00:00:00 [facility] TDAP 2014-10-02 Completed [facility] 00:00:00 [facility] TDAP 2014-10-02 Completed [facility] 00:00:00 [facility] TDAP 2014-10-02 Completed [facility] 00:00:00 [facility] TDAP 2014-10-02 Completed [facility] 00:00:00 [facility] TDAP 2014-10-02 Completed [facility] 00:00:00 [facility] TDAP 2014-10-02 Completed [facility] 00:00:00 [facility] TDAP 2014-10-02 Completed [facility] 00:00:00 [facility] TDAP 2014-10-02 Completed [facility] 00:00:00 [facility] TDAP 2014-10-02 Completed [facility] 00:00:00 [facility] TDAP 2014-10-02 Completed [facility] 00:00:00 [facility] TDAP 2014-10-02 Completed [facility] 00:00:00 [facility] TDAP 2014-10-02 Completed [facility] 00:00:00 [facility] TDAP 2014-10-02 Completed [facility] 00:00:00 [facility] TDAP 2014-10-02 Completed [facility] 00:00:00 [facility] TDAP 2014-10-02 Completed [facility] 00:00:00 [facility] TDAP 2014-10-02 Completed [facility] 00:00:00 [facility] TDAP 2014-10-02 Completed [facility] 00:00:00 [facility] TDAP 2014-10-02 Completed [facility] 00:00:00 [facility] TDAP 2014-10-02 Completed [facility] 00:00:00 [facility] TDAP 2014-10-02 Completed [facility] 00:00:00 [facility] TDAP 2014-10-02 Completed [facility] 00:00:00 [facility] TDAP 2014-10-02 Completed [facility] 00:00:00 [facility] TDAP 2014-10-02 Completed [facility] 00:00:00 [facility] TDAP 2014-10-02 Completed [facility] 00:00:00 [facility] TDAP 2014-10-02 Completed [facility] 00:00:00 [facility] TDAP 2014-10-02 Completed [facility] 00:00:00 [facility] TDAP 2014-10-02 Completed [facility] 00:00:00 [facility] TDAP 2014-10-02 Completed [facility] 00:00:00 [facility] TDAP 2014-10-02 Completed [facility] 00:00:00 [facility] TDAP 2014-10-02 Completed [facility] 00:00:00 [facility] TDAP 2014-10-02 Completed [facility] 00:00:00 [facility] TDAP 2014-10-02 Completed [facility] 00:00:00 [facility] TDAP 2014-10-02 Completed [facility] 00:00:00 [facility] TDAP 2014-10-02 Completed [facility] 00:00:00 [facility] TDAP 2014-10-02 Completed [facility] 00:00:00 [facility] TDAP 2014-10-02 Completed [facility] 00:00:00 [facility] TDAP 2014-10-02 Completed [facility] 00:00:00 [facility] TDAP 2014-10-02 Completed [facility] 00:00:00 [facility] TDAP 2014-10-02 Completed [facility] 00:00:00 [facility] TDAP 2014-10-02 Completed [facility] 00:00:00 [facility] TDAP 2014-10-02 Completed [facility] 00:00:00 [facility] TDAP 2014-10-02 Completed [facility] 00:00:00 [facility] TDAP 2014-10-02 Completed [facility] 00:00:00 [facility] TDAP 2014-10-02 Completed [facility] 00:00:00 [facility] TDAP 2014-10-02 Completed [facility] 00:00:00 [facility] TDAP 2014-10-02 Completed [facility] 00:00:00 [facility] TDAP 2014-10-02 Completed [facility] 00:00:00 [facility] TDAP 2014-10-02 Completed [facility] 00:00:00 [facility] TDAP 2014-10-02 Completed [facility] 00:00:00 [facility] TDAP 2014-10-02 Completed [facility] 00:00:00 [facility] TDAP 2014-10-02 Completed [facility] 00:00:00 [facility] TDAP 2014-10-02 Completed [facility] 00:00:00 [facility] TDAP 2014-10-02 Completed [facility] 00:00:00 [facility] TDAP 2014-10-02 Completed [facility] 00:00:00 [facility] TDAP 2014-10-02 Completed [facility] 00:00:00 [facility] TDAP 2014-10-02 Completed [facility] 00:00:00 [facility] TDAP 2014-10-02 Completed [facility] 00:00:00 [facility] TDAP 2014-10-02 Completed [facility] 00:00:00 [facility] TDAP 2014-10-02 Completed [facility] 00:00:00 [facility] TDAP 2014-10-02 Completed [facility] 00:00:00 [facility] TDAP 2014-10-02 Completed [facility] 00:00:00 [facility] TDAP 2014-10-02 Completed [facility] 00:00:00 [facility] TDAP 2014-10-02 Completed [facility] 00:00:00 [facility] TDAP 2014-10-02 Completed [facility] 00:00:00 [facility] TDAP 2014-10-02 Completed [facility] 00:00:00 [facility] TDAP 2014-10-02 Completed [facility] 00:00:00 [facility] TDAP 2014-10-02 Completed [facility] 00:00:00 [facility] TDAP 2014-10-02 Completed [facility] 00:00:00 [facility] TDAP 2014-10-02 Completed [facility] 00:00:00 [facility] TDAP 2014-10-02 Completed [facility] 00:00:00 [facility] TDAP 2014-10-02 Completed [facility] 00:00:00 [facility] TDAP 2014-10-02 Completed [facility] 00:00:00 [facility] TDAP 2014-10-02 Completed [facility] 00:00:00 [facility] TDAP 2014-10-02 Completed [facility] 00:00:00 [facility] TDAP 2014-10-02 Completed [facility] 00:00:00 [facility] TDAP 2014-10-02 Completed [facility] 00:00:00 [facility] TDAP 2014-10-02 Completed [facility] 00:00:00 [facility] TDAP 2014-10-02 Completed [facility] 00:00:00 [facility] TDAP 2014-10-02 Completed [facility] 00:00:00 [facility] TDAP 2014-10-02 Completed [facility] 00:00:00 [facility] TDAP 2014-10-02 Completed [facility] 00:00:00 [facility] TDAP 2014-10-02 Completed [facility] 00:00:00 [facility] TDAP 2014-10-02 Completed [facility] 00:00:00 [facility] TDAP 2014-10-02 Completed [facility] 00:00:00 [facility] TDAP 2014-10-02 Completed [facility] 00:00:00 [facility] TDAP 2014-10-02 Completed [facility] 00:00:00 [facility] TDAP 2014-10-02 Completed [facility] 00:00:00 [facility] TDAP 2014-10-02 Completed [facility] 00:00:00 [facility] TDAP 2014-10-02 Completed [facility] 00:00:00 [facility] TDAP 2014-10-02 Completed [facility] 00:00:00 [facility] TDAP 2014-10-02 Completed [facility] 00:00:00 [facility] TDAP 2014-10-02 Completed [facility] 00:00:00 [facility] TDAP 2014-10-02 Completed [facility] 00:00:00 [facility] TDAP 2014-10-02 Completed [facility] 00:00:00 [facility] TDAP 2014-10-02 Completed [facility] 00:00:00 [facility] Hepatitis B, Adult 2012-01-27 Completed Sakina Finley [...] 00:00:00 External Tdap- (Boostrix, 2011-10-07 Completed Sakina sun - Adacel) 00:00:00 External Influenza, Unknown Completed Sakina Finley - [...] External Hepatitis B, Adult Unknown Completed Sakina Jonasshebarosalba - (3 dose) External Meningococcal Unknown Completed Sakina Jonassheba old - Vaccine- External Conjugate(Menactra) MMR- Measles, Unknown Completed Sakina Jonassheba old - Mumps, Rubella External MMR- Measles, Unknown Completed Sakina Rodolfo old - Mumps, Rubella External Tdap- (Boostrix, Unknown Completed Sakina ruedabold - Adacel) External Tdap- (Boostrix, Unknown Completed Sakina S eybold - Adacel) External Influenza, Unknown Completed Sakina Tushar - Injectable, Mdck, Externa l Preservative Free, Quadrivalent Influenza, Unknown Completed Sakina Reynoldsold - Injectable, Mdck, Externa l Preservative Free, Quadrivalent Influenza Virus Unknown Completed Sakina Se ovalles - Vaccine, No External Preserv, age 6 months and up Influenza Virus Unknown Completed Sakina Se charlette - Vaccine, No External Preserv, age 6 months and up Influenza, Unknown Completed Sakina Jonascharlette - Seasonal, External Injectable Influenza, Unknown Completed Sakina Reynoldsrosalba - Seasonal, External Injectable Hepatitis B, Adult Unknown Completed Sakina Reynoldsrosalba - (3 dose) External Hepatitis B, Adult Unknown Completed Sakina Jonasshebarosalba - (3 dose) External Hepatitis B, Adult Unknown Completed Sakina Finley - (3 dose) External Meningococcal Unknown Completed Sakina Reynolds rosalba - Vaccine- External Conjugate(Menactra) MMR- Measles, Unknown Completed Sakina Reynolds old - Mumps, Rubella External MMR- Measles, Unknown Completed Sakinasusan Reynolds old - Mumps, Rubella External Tdap- (Boostrix, Unknown Completed Sakina ruedabold - Adacel) External Tdap- (Boostrix, Unknown Completed Sakina S eybold - Adacel) External Influenza, Unknown Completed Sakina Rodolfoold - Injectable, Mdck, Externa l Preservative Free, Quadrivalent Influenza, Unknown Completed Sakina Rodolfoold - Injectable, Mdck, Externa l Preservative Free, Quadrivalent Influenza Virus Unknown Completed Sakina Se scruggsold - Vaccine, No External Preserv, age 6 months and up Influenza Virus Unknown Completed Sakina Se ovalles - Vaccine, No External Preserv, age 6 months and up Influenza, Unknown Completed Sakina Tushar - Seasonal, External Injectable Influenza, Unknown Completed [...] - Adacel) External Influenza, Unknown Completed Sakina Reynoldsrosalba - Injectable, Mdck, Externa l Preservative Free, Quadrivalent Influenza, Unknown Completed Sakina Finley - Injectable, Mdck, Externa l Preservative Free, Quadrivalent Influenza Virus Unknown Completed Sakina Jonas charlette [...] - Adacel) External Influenza, Unknown Completed Sakina shebarosalba - Injectable, Mdck, Externa l Preservative Free, Quadrivalent Influenza, Unknown Completed Sakina shebarosalba - Injectable, Mdck, Externa l Preservative Free, Quadrivalent Influenza Virus Unknown Completed Sakina Jonas charlette - Vaccine, No External Preserv, age 6 months and up Influenza Virus Unknown Completed Sakina ovalles - Vaccine, No External Preserv, age 6 months and up Influenza, Unknown Completed Sakina Finley - Seasonal, External Injectable Influenza, Unknown Completed Sakina Seshebarosalba - Seasonal, External Injectable Hepatitis B, Adult Unknown Completed Sakina shebarosalba - (3 dose) External Hepatitis B, Adult [...] - Adacel) External Influenza, Unknown Completed Sakina Reynoldsrosalba - Injectable, Mdck, Externa l Quadrivalent With Preservative Pneumococcal Unknown Completed Sakina Perez ld - Conjugate 15 External (Vaxneuvance) Influenza, Unknown Completed Sakina Reynoldsrosalba - Injectable, Mdck, Externa l Preservative Free, Quadrivalent Influenza, Unknown Completed Sakina Jonasshebarosalba - Injectable, Mdck, Externa l Preservative Free, [...] Injectable Hepatitis B, Adult Unknown Completed Sakina charlette - (3 dose) External Hepatitis B, Adult Unknown Completed Sakina Finley - (3 dose) External Hepatitis B, Adult Unknown Completed Sakina Finley - (3 dose) External Meningococcal Unknown Completed Sakina navarrete - Vaccine- External Conjugate(Menactra) MMR- Measles, Unknown Completed Sakina Reynolds old - Mumps, Rubella External MMR- Measles, Unknown Completed Sakina Reynolds old - Mumps, Rubella External Tdap- (Boostrix, Unknown Completed Sakina Lopez eybold - Adacel) External Tdap- (Boostrix, Unknown Completed Sakina sun - Adacel) External Influenza, Unknown Completed Sakina Reynoldsrosalba - Injectable, Mdck, Externa l Quadrivalent With Preservative Pneumococcal Unknown Completed Sakina Perez ld - Conjugate 15 External (Vaxneuvance) Influenza, Unknown Completed Sakina shebaold - Injectable, Mdck, Externa l Preservative Free, Quadrivalent Influenza, Unknown Completed Sakina shebarosalba - Injectable, Mdck, Externa l Preservative Free, Quadrivalent Influenza Virus Unknown Completed Sakina Se ovalles - Vaccine, No External Preserv, age [...] - (3 dose) External Meningococcal Unknown Completed Saikna navarrete - Vaccine- External Conjugate(Menactra) MMR- Measles, Unknown Completed Sakina navarrete - Mumps, Rubella External MMR- Measles, Unknown Completed [place] Reynolds old - Mumps, Rubella External Tdap- (Boostrix, Unknown Completed Sakina sun - Adacel) External Tdap- (Boostrix, Unknown Completed [facility] corinne - Adacel) External Influenza, Unknown Completed Sakina Finley - Injectable, Mdck, Externa l Quadrivalent With Preservative Pneumococcal Unknown Completed Sakina Perez ld - Conjugate 15 External (Vaxneuvance) Influenza, Unknown Completed Sakina Finley - Injectable, Mdck, Externa l Preservative Free, Quadrivalent Influenza, Unknown Completed Sakina shebarosalba - Injectable, Mdck, Externa l Preservative Free, Quadrivalent Influenza Virus Unknown Completed Sakina Jonas charlette - Vaccine, No External Preserv, age 6 months and up Influenza Virus Unknown Completed Sakina Se charlette - Vaccine, No External Preserv, age [...] Rubella External Tdap- (Boostrix, Unknown Completed Sakina sun - Adacel) External Tdap- (Boostrix, Unknown Completed Sakina claireld - Adacel) External TDAP Unknown Completed [facility] SARS-COV-2 COVID-19 Unknown Completed Unive rsity of PFIZER VACCINE [facility] SARS-COV-2 COVID-19 Unknown Completed Unive rsity of PFIZER VACCINE [facility] TDAP Unknown Completed [facility] SARS-COV-2 COVID-19 Unknown Completed Unive rsity of PFIZER VACCINE [facility] SARS-COV-2 COVID-19 Unknown Completed Unive rsity of PFIZER VACCINE [facility] TDAP Unknown Completed [facility] SARS-COV-2 COVID-19 Unknown Completed Unive rsity of PFIZER VACCINE [facility] SARS-COV-2 COVID-19 Unknown Completed Unive rsity of PFIZER VACCINE [facility] TDAP Unknown Completed [facility] SARS-COV-2 COVID-19 Unknown Completed Unive rsity of PFIZER VACCINE [facility] SARS-COV-2 COVID-19 Unknown Completed Unive rsity of PFIZER VACCINE [facility] Vital Signs Vital Name Observation Time Observation Value Comments Source Systolic blood 2023-08-15 20:04:00 139 mm[Hg] Sakina Finley - pressure External Diastolic blood 2023-08-15 20:04:00 76 mm[Hg] Billy Finley - pressure External Heart rate 2023-08-15 20:04:00 61 /min Sakina sun - External Body temperature 2023-08-15 20:04:00 36.56 Becka Kenyetta Finley - External Respiratory rate 2023-08-15 20:04:00 18 /min Kenyetta Finley - External Body height 2023-08-15 20:04:00 149.9 cm Sakina S eybold - External Body weight 2023-08-15 20:04:00 85.276 kg Sakina S eybold - External BMI 2023-08-15 20:04:00 37.97 kg/m2 Sakina S eybold - External Oxygen saturation in 2023-08-15 20:04:00 100 /min Sakina Seybold - Arterial blood by External Pulse oximetry Systolic blood 2023-08-09 19:36:00 140 mm[Hg] Sakina Seybold - pressure External Diastolic blood 2023-08-09 19:36:00 77 mm[Hg] Kelse y Seybold - pressure External Heart rate 2023-08-09 19:36:00 71 /min Sakina S eybold - External Body temperature 2023-08-09 19:36:00 36.56 Becka Kenyetta ey Seybold - External Respiratory rate 2023-08-09 19:36:00 15 /min Kenyetta ey Seybold - External Body height 2023-08-09 19:36:00 149.9 cm Sakina S eybold - External Body weight 2023-08-09 19:36:00 84.823 kg Sakina S eybold - External BMI 2023-08-09 19:36:00 37.77 kg/m2 Sakina S eybold - External Oxygen saturation in 2023-08-09 19:36:00 99 /min Sakina Seybold - Arterial blood by External Pulse oximetry Body height 2023-07-05 13:21:00 149.9 cm Sakina S eybold - External Body weight 2023-07-05 13:21:00 85.276 kg Sakina S eybold - External BMI 2023-07-05 13:21:00 37.97 kg/m2 Sakina S eybold - External Systolic blood 2023-06-13 18:49:00 144 mm[Hg] Sakina Seybold - pressure External Diastolic blood 2023-06-13 18:49:00 90 mm[Hg] Angelse y Seybold - pressure External Heart rate 2023-06-13 18:49:00 68 /min Sakina S eybold - External Body temperature 2023-06-13 18:49:00 36.5 Becka Kenyetta ey Seybold - External Respiratory rate 2023-06-13 18:49:00 20 /min Kenyetta Finley - External Body height 2023-06-13 18:49:00 149.9 cm Sakina ruedaboloretta - External Body weight 2023-06-13 18:49:00 83.915 kg Sakina ruedaboloretta - External BMI 2023-06-13 18:49:00 37.37 kg/m2 Sakina sun - External Systolic blood 2023-05-11 15:06:00 153 mm[Hg] Univer sity of pressure [facility] Diastolic blood 2023-05-11 15:06:00 85 mm[Hg] Unive rsity of pressure [facility] Heart rate 2023-05-11 15:06:00 74 /min [facility] Body temperature 2023-05-11 15:06:00 35.83 Becka Univ ers[facility] of [facility] Body height 2023-05-11 15:06:00 151.1 cm [facility] Body weight 2023-05-11 15:06:00 84.641 kg [facility] BMI 2023-05-11 15:06:00 37.06 kg/m2 [facility] Systolic blood 2023-02-06 13:35:00 130 mm[Hg] Univer sity of pressure [facility] Diastolic blood 2023-02-06 13:35:00 76 mm[Hg] Unive rsity of pressure [facility] Heart rate 2023-02-06 13:35:00 55 /min [facility] Body temperature 2023-02-06 13:35:00 36.89 Becka [facility] Respiratory rate 2023-02-06 13:35:00 17 /min [facility] Body weight 2023-02-06 13:35:00 85.049 kg [facility] BMI 2023-02-06 13:35:00 37.24 kg/m2 [facility] Oxygen saturation in 2023-02-06 13:35:00 100 /min [facility] Arterial blood by [facility] Pulse oximetry Branch Systolic blood 2023-01-26 18:57:00 127 mm[Hg] Univer sity of pressure [facility] Diastolic blood 2023-01-26 18:57:00 78 mm[Hg] Unive rsity of pressure [facility] Heart rate 2023-01-26 18:57:00 67 /min [facility] Body temperature 2023-01-26 18:57:00 36.28 Becka [facility] Body height 2023-01-26 18:57:00 151.1 cm [facility] Body weight 2023-01-26 18:57:00 85.095 kg [facility] BMI 2023-01-26 18:57:00 37.26 kg/m2 [facility] Systolic blood 2023-01-25 19:45:00 130 mm[Hg] Univer sity of pressure [facility] Diastolic blood 2023-01-25 19:45:00 83 mm[Hg] Unive rsity of pressure [facility] Heart rate 2023-01-25 19:45:00 68 /min [facility] Body temperature 2023-01-25 19:45:00 37.06 Becka [facility] Body height 2023-01-25 19:45:00 151.1 cm [facility] Body weight 2023-01-25 19:45:00 85.458 kg [facility] BMI 2023-01-25 19:45:00 37.42 kg/m2 [facility] Systolic blood 2023-01-23 15:03:00 138 mm[Hg] Univer sity of pressure [facility] Diastolic blood 2023-01-23 15:03:00 88 mm[Hg] Unive rsity of pressure [facility] Heart rate 2023-01-23 15:03:00 52 /min [facility] Body temperature 2023-01-23 15:03:00 36.28 Becka [facility] Body height 2023-01-23 15:03:00 151.1 cm [facility] Body weight 2023-01-23 15:03:00 86.229 kg [facility] BMI 2023-01-23 15:03:00 37.75 kg/m2 [facility] Systolic blood 2023-01-12 20:11:00 147 mm[Hg] Univer sity of pressure [facility] Diastolic blood 2023-01-12 20:11:00 79 mm[Hg] Unive rsity of pressure [facility] Heart rate 2023-01-12 20:11:00 59 /min [facility] Body temperature 2023-01-12 20:11:00 36.83 Becka [facility] Body height 2023-01-12 20:11:00 151.1 cm [facility] Body weight 2023-01-12 20:11:00 86.002 kg [facility] BMI 2023-01-12 20:11:00 37.65 kg/m2 [facility] Heart rate 2022-12-27 15:20:00 50 /min [facility] Respiratory rate 2022-12-27 15:20:00 11 /min Univ ers[facility] Oxygen saturation in 2022-12-27 15:20:00 100 /min [facility] of Arterial blood by [place] [employer] selina Pulse oximetry Branch Systolic blood 2022-12-27 15:15:00 127 mm[Hg] Univer sity of pressure [facility] Diastolic blood 2022-12-27 15:15:00 75 mm[Hg] Unive rsity of pressure [facility] Body temperature 2022-12-27 13:49:00 36.61 Becka [facility] Body height 2022-12-13 15:00:00 151.1 cm [facility] Body weight 2022-12-13 15:00:00 84.823 kg [facility] BMI 2022-12-13 15:00:00 37.14 kg/m2 [facility] Heart rate 2022-12-27 15:20:00 50 /min [facility] Respiratory rate 2022-12-27 15:20:00 11 /min [facility] Oxygen saturation in 2022-12-27 15:20:00 100 /min [facility] of Arterial blood by [employer] selina Pulse oximetry Branch Systolic blood 2022-12-27 15:15:00 127 mm[Hg] Univer sity of pressure [facility] Diastolic blood 2022-12-27 15:15:00 75 mm[Hg] Unive rsity of pressure [facility] Body temperature 2022-12-27 13:49:00 36.61 Becka [facility] Body height 2022-12-13 15:00:00 151.1 cm [facility] Body weight 2022-12-13 15:00:00 84.823 kg [facility] BMI 2022-12-13 15:00:00 37.14 kg/m2 [facility] Systolic blood 2022-12-15 19:59:00 124 mm[Hg] Univer sity of pressure [facility] Diastolic blood 2022-12-15 19:59:00 72 mm[Hg] Unive rsity of pressure [facility] Heart rate 2022-12-15 19:59:00 58 /min [facility] Body temperature 2022-12-15 19:59:00 36.72 Becka [facility] Body height 2022-12-15 19:59:00 151.1 cm [facility] Body weight 2022-12-15 19:59:00 86.274 kg [facility] BMI 2022-12-15 19:59:00 37.77 kg/m2 [facility] Systolic blood 2022-12-02 15:03:00 130 mm[Hg] Univer sity of pressure [facility] Diastolic blood 2022-12-02 15:03:00 74 mm[Hg] [facility]ive [facility]ity of [facility] Heart rate 2022-12-02 15:03:00 65 /min [facility] Respiratory rate 2022-12-02 15:03:00 21 /min Univ ersity of [facility] Body height 2022-12-02 15:03:00 156.2 cm [facility] Body weight 2022-12-02 15:03:00 86.183 kg [facility] BMI 2022-12-02 15:03:00 35.32 kg/m2 [facility] Oxygen saturation in 2022-12-02 15:03:00 99 /min University Arterial blood by [facility] Pulse oximetry Branch Systolic blood 2022-11-29 20:39:00 133 mm[Hg] Univer sity of pressure [facility] Diastolic blood 2022-11-29 20:39:00 82 mm[Hg] Unive rsity of pressure [facility] Heart rate 2022-11-29 20:39:00 74 /min [facility] Body temperature 2022-11-29 20:39:00 36.83 Becka [facility] Respiratory rate 2022-11-29 20:39:00 18 /min [facility] Body height 2022-11-29 20:39:00 151.1 cm [facility] Body weight 2022-11-29 20:39:00 85.186 kg [facility] BMI 2022-11-29 20:39:00 37.30 kg/m2 [facility] Systolic blood 2022-11-24 19:36:00 132 mm[Hg] Univer sity of pressure [facility] Diastolic blood 2022-11-24 19:36:00 83 mm[Hg] Unive rsity of pressure [facility] Heart rate 2022-11-24 19:36:00 60 /min [facility] Body temperature 2022-11-24 19:36:00 37.06 Becka [facility] Respiratory rate 2022-11-24 19:36:00 18 /min [facility] Body height 2022-11-24 19:36:00 151.1 cm [facility] Body weight 2022-11-24 19:36:00 84.823 kg [facility] BMI 2022-11-24 19:36:00 37.14 kg/m2 [facility] Systolic blood 2022-11-22 17:14:00 128 mm[Hg] Univer sity of pressure [facility] Diastolic blood 2022-11-22 17:14:00 70 mm[Hg] Unive rsity of pressure [facility] Heart rate 2022-11-22 17:14:00 60 /min [facility] Body temperature 2022-11-22 17:14:00 35.78 Becka [facility] Body height 2022-11-22 17:14:00 151.1 cm [facility] Body weight 2022-11-22 17:14:00 85.276 kg [facility] BMI 2022-11-22 17:14:00 37.34 kg/m2 [facility] Systolic blood 2022-11-16 16:59:00 121 mm[Hg] Univer sity of pressure [facility] Diastolic blood 2022-11-16 16:59:00 71 mm[Hg] Unive rsity of pressure [facility] Heart rate 2022-11-16 16:52:00 69 /min [facility] Body temperature 2022-11-16 16:52:00 36.67 Becka [facility] Respiratory rate 2022-11-16 16:52:00 18 /min [facility] Body height 2022-11-16 16:52:00 151.1 cm [facility] Body weight 2022-11-16 16:52:00 85.639 kg [facility] BMI 2022-11-16 16:52:00 37.49 kg/m2 [facility] Systolic blood 2022-11-14 15:57:00 150 mm[Hg] Univer sity of pressure [facility] Diastolic blood 2022-11-14 15:57:00 94 mm[Hg] Unive rsity of pressure [facility] Heart rate 2022-11-14 15:57:00 70 /min [facility] Body temperature 2022-11-14 15:57:00 36.33 Becka [facility] Body height 2022-11-14 15:57:00 149.9 cm [facility] Body weight 2022-11-14 15:57:00 86.274 kg [facility] BMI 2022-11-14 15:57:00 38.42 kg/m2 [facility] Systolic blood 2022-10-31 16:41:00 137 mm[Hg] Univer sity of pressure [facility] Diastolic blood 2022-10-31 16:41:00 85 mm[Hg] Unive rsity of pressure [facility] Heart rate 2022-10-31 16:41:00 68 /min [facility] Body temperature 2022-10-31 16:41:00 36.83 [facility] 2022-10-31 16:41:00 149.9 cm [facility] Body weight 2022-10-31 16:41:00 87.272 kg [facility] BMI 2022-10-31 16:41:00 38.86 kg/m2 [facility] height 2022-10-26 09:15:00 61 [in_i] Common [facility] weight 2022-10-26 09:15:00 188.2 [lb_av] [facility] temperature 2022-10-26 09:15:00 98.2 [degF] Common [facility] bmi 2022-10-26 09:15:00 35.56 kg/m2 Common [facility] blood pressure 2022-10-26 09:15:00 127 mm[Hg] [facility] systolic [facility] blood pressure 2022-10-26 09:15:00 82 mm[Hg] [facility] - diastolic [facility] height 2022-10-05 09:00:00 61 [in_i] Common [facility] weight 2022-10-05 09:00:00 188.2 [lb_av] [facility] temperature 2022-10-05 09:00:00 97.6 [degF] [facility] bmi 2022-10-05 09:00:00 35.56 kg/m2 Common [facility] blood pressure 2022-10-05 09:00:00 128 mm[Hg] [facility] - systolic [facility] blood pressure 2022-10-05 09:00:00 83 mm[Hg] [facility] - diastolic [facility] height 2022-09-15 08:30:00 61 [in_i] Common [facility] weight 2022-09-15 08:30:00 188.2 [lb_av] Common [facility] temperature 2022-09-15 08:30:00 98.6 [degF] Common S pirit [facility] bmi 2022-09-15 08:30:00 35.56 kg/m2 Common S pirit [facility] blood pressure 2022-09-15 08:30:00 132 mm[Hg] Common [facility] - systolic [facility] blood pressure 2022-09-15 08:30:00 80 mm[Hg] [facility] - diastolic [facility] height 2022-09-05 16:20:00 61 [in_i] Common [facility] weight 2022-09-05 16:20:00 190.2 [lb_av] [facility] temperature 2022-09-05 16:20:00 97.5 [degF] [facility] bmi 2022-09-05 16:20:00 35.93 kg/m2 [facility] oximetry 2022-09-05 16:20:00 100 % [facility] respiratory rate 2022-09-05 16:20:00 16 /min Comm on [facility] blood pressure 2022-09-05 16:20:00 130 mm[Hg] [facility] blood pressure 2022-09-05 16:20:00 68 mm[Hg] Common [facility] - diastolic [facility] height 2021-06-30 09:00:00 61 [in_i] [facility] 2021-06-30 09:00:00 180 [lb_av] [facility] bmi 2021-06-30 09:00:00 34.01 kg/m2 [facility] height 2021-05-31 10:20:00 61 [in_i] Common S [facility] weight 2021-05-31 10:20:00 183.0 [lb_av] [facility] temperature 2021-05-31 10:20:00 97.7 [degF] Common S pirit [facility] bmi 2021-05-31 10:20:00 34.57 kg/m2 Common S pirit - [facility] oximetry 2021-05-31 10:20:00 98 % [facility] respiratory rate 2021-05-31 10:20:00 16 /min Comm on [facility] blood pressure 2021-05-31 10:20:00 130 mm[Hg] Common [facility] - systolic [facility] blood pressure 2021-05-31 10:20:00 78 mm[Hg] Common [facility] - diastolic [facility] height 2020-11-03 10:00:00 61 [in_i] [facility] weight 2020-11-03 10:00:00 194.5 [lb_av] [facility] temperature 2020-11-03 10:00:00 98.8 [degF] Common S pirit [facility] bmi 2020-11-03 10:00:00 36.75 kg/m2 [facility] S [facility] oximetry 2020-11-03 10:00:00 98 % [facility] respiratory rate 2020-11-03 10:00:00 18 /min Comm on [facility] blood pressure 2020-11-03 10:00:00 130 mm[Hg] Common [facility] - systolic [facility] blood pressure 2020-11-03 10:00:00 80 mm[Hg] [facility] height 2020-09-18 10:20:00 61 [in_i] Common S pirit [facility] weight 2020-09-18 10:20:00 198.6 [lb_av] [facility] temperature 2020-09-18 10:20:00 98.0 [degF] Common S pirit [facility] bmi 2020-09-18 10:20:00 37.52 kg/m2 Common S pirit - [facility] oximetry 2020-09-18 10:20:00 95 % Common S pirit - [facility] respiratory rate 2020-09-18 10:20:00 18 /min Comm on [facility] - [facility] blood pressure 2020-09-18 10:20:00 120 mm[Hg] [facility] systolic [facility] blood pressure 2020-09-18 10:20:00 72 mm[Hg] [facility] diastolic [facility] BP Systolic 2022-10-04 10:10:00 133 mm[Hg] [...] Performed OP CORRESPONDENCE 2023-05-01 05:01:00 Doctor Anthony, [facility] OP CORRESPONDENCE 2023-04-12 05:01:00 Doctor Unassigned, [facility] Name Medical [facility] REFERRAL- 2023-02-14 05:01:00 Doctor Anthony [facility] REQUEST/RESPONSE [facility] MEDICAL RELEASE/CLEARANCE 2023-01-23 05:01:00 Doctor Cruz, [facility] FORMS [facility] REFERRAL- 2023-01-10 05:01:00 Doctor Anthony, [facility] REQUEST/RESPONSE [facility] HYSTEROSCOPY 2022-12-27 12:42:00 Andrew Ovalle [place] [facility] POLYPECTOMY 2022-12-27 12:42[facility]00 [facility] AND CURETTAGE 2022-12-27 12:42:00 Andrew Ovalle [facility] POCT TEST 2022-12-27 12:15:00 Phil Hoskins [facility] POCT TEST 2022-12-27 12:15:00 Phil Hoskins [facility] DAY SURGERY - [facility] 2022-12-27 05:01:00 Doctor Cruz, [facility] Name Medical Branch PATIENT QUESTIONNAIRE 2022-12-15 05:01:00 Doctor Anthony, [facility] US PELVIS COMPLETE WITH 2022-12-05 19:10:51 Andrew Ovalle [facility] TRANSVAGINAL Medical Branch ASSIGNMENT OF BENEFITS 2022-12-05 16:04:44 Doctor Anthony, [facility] Name Medical Branch HB ECG ROUTINE & RHYTHM 2022-12-02 15:06:13 Archana Rogel [facility] [place] EKG (SCANNED DOCUMENTS) 2022-12-02 06:01:00 Doctor Anthony, [facility] Name Medical Branch DSU PRE-OP 2022-12-01 06:01:00 Doctor Cruz, [facility] MR LUMBAR SPINE WO 2022-11-30 21:54:58 Glory Brewster [facility] Medical Branch NOTICE OF PRIVACY 2022-11-30 21:06:03 Doctor Anthony, [facility] NOTICE OF PRIVACY 2022-11-30 21:06:03 Doctor Anthony, [facility] CONSENT/REFUSAL FOR 2022-11-30 21:05:43 Doctor Andrés Cruz [facility] DIAGNOSIS AND TREATMENT [facility] CONSENT/REFUSAL FOR 2022-11-30 21:05:43 Doctor Andrés Cruz [facility] DIAGNOSIS AND TREATMENT [facility] ASSIGNMENT OF BENEFITS 2022-11-30 21:05:26 Doctor Unassigned, Un [facility] ASSIGNMENT OF BENEFITS 2022-11-30 21:05:26 Doctor Unassigned, [facility] POCT TEST 2022-11-24 19:46:00 Andrew Ovalle [facility] XR LUMBAR SPINE 2 VW 2022-11-22 17:31:21 Glory Brewster [facility] PATIENT QUESTIONNAIRE 2022-11-22 06:01:00 Doctor Unamadan, [facility] POCT URINALYSIS W/O 2022-11-16 00:00:00 Colin Hickey [facility] SPECIFIC GRAVITY [facility] Branch XR ANKLE 3+ VW RIGHT 2022-11-14 16:08:10 Lalo Baldwin [facility] XR FOOT 3+ VW RIGHT 2022-11-14 16:07:57 Lalo Baldwin [facility] EXTERNAL PROVIDER RECORDS 2022-11-08 06:01:00 Doctor Anthony, [facility] REFERRAL- 2022-10-27 06:01:00 Doctor Anthony, [facility] REQUEST/RESPONSE [facility] Plan of Care Planned Activity Planned Date Details Comments Source Goal Plan of Care Note [code = 84322-2] Goal Plan of Care Note [code = 07634-8] Goal Plan of Care Note [code = 66487-0] Goal Plan of Care Note [code = 94713-7] Goal Plan of Care Note [code = 90404-0] Goal Plan of Care Note [code = 22787-9] Goal Plan of Care Note [code = 81710-0] Goal Plan of Care Note [code = 52484-7] Goal Plan of Care Note [code = 43103-6] Goal Plan of Care Note [code = 46554-6] Goal Plan of Care Note [code = 82967-6] Goal Plan of Care Note [code = 69165-0] Goal Plan of Care Note [code = 25356-5] Goal Plan of Care Note [code = 87174-8] Goal Plan of Care Note [code = 48080-4] Goal Plan of Care Note [code = 39619-1] Goal Plan of Care Note [code = 92418-3] Goal Plan of Care Note [code = 08194-4] Goal Plan of Care Note [code = 21685-9] Goal Plan of Care Note [code = 10372-7] Goal Plan of Care Note [code = 75812-4] Goal Plan of Care Note [code = 91802-1] Goal Plan of Care Note [code = 35473-0] Goal Plan of Care Note [code = 98487-0] Goal Plan of Care Note [code = 34042-9] Goal Plan of Care Note [code = 91437-4] Goal Plan of Care Note [code = 00333-8] Goal Plan of Care Note [code = 21383-8] Goal Plan of Care Note [code = 97837-0] Goal Plan of Care Note [code = 62195-2] Goal Plan of Care Note [code = 23319-8] Goal Plan of Care Note [code = 85826-3] Goal Plan of Care Note [code = 91572-9] Goal Plan of Care Note [code = 21989-4] Goal Plan of Care Note [code = 59540-3] Goal Plan of Care Note [code = 37488-5] Goal Plan of Care Note [code = 02733-5] Goal Plan of Care Note [code = 77120-2] Goal Plan of Care Note [code = 76718-3] Goal Plan of Care Note [code = 56691-6] Goal Plan of Care Note [code = 88987-0] Goal Plan of Care Note [code = 99963-1] Goal Plan of Care Note [code = 21010-1] Goal Plan of Care Note [code = 93984-9] Goal Plan of Care Note [code = 51069-0] Goal Plan of Care Note [code = 08786-4] Goal Plan of Care Note [code = 07545-3] Goal Plan of Care Note [code = 38902-4] Goal Plan of Care Note [code = 77073-4] Goal Plan of Care Note [code = 05956-4] Goal Plan of Care Note [code = 98643-2] Goal Plan of Care Note [code = 48769-2] Goal Plan of Care Note [code = 10091-3] Goal Plan of Care Note [code = 33806-1] Goal Plan of Care Note [code = 37252-8] Goal Plan of Care Note [code = 11211-4] Goal Plan of Care Note [code = 63480-6] Goal Plan of Care Note [code = 08183-9] Goal Plan of Care Note [code = 23694-7] Goal Plan of Care Note [code = 22923-9] Goal Plan of Care Note [code = 59246-9] Goal Plan of Care Note [code = 16405-3] Goal Plan of Care Note [code = 37729-2] Goal Plan of Care Note [code = 43419-7] Goal Plan of Care Note [code = 77575-2] Goal Plan of Care Note [code = 63140-9] Goal Plan of Care Note [code = 32054-2] Goal Plan of Care Note [code = 08830-0] Goal Plan of Care Note [code = 72602-2] Goal Plan of Care Note [code = 78942-2] Goal Plan of Care Note [code = 00225-4] Goal Plan of Care Note [code = 02793-7] Goal Plan of Care Note [code = 42435-9] Goal Plan of Care Note [code = 24848-3] Goal Plan of Care Note [code = 90771-1] Goal Plan of Care Note [code = 48480-3] Goal Plan of Care Note [code = 69190-5] Goal Plan of Care Note [code = 58694-3] Goal Plan of Care Note [code = 83152-4] Goal Plan of Care Note [code = 75223-7] Goal Plan of Care Note [code = 41844-3] Goal Plan of Care Note [code = 43396-1] Goal Plan of Care Note [code = 87313-4] Goal Plan of Care Note [code = 00328-0] Goal Plan of Care Note [code = 21102-2] Goal Plan of Care Note [code = 48922-7] Goal Plan of Care Note [code = 25063-1] Goal Plan of Care Note [code = 18862-2] Goal Plan of Care Note [code = 13223-9] Goal Plan of Care Note [code = 52084-7] Goal Plan of Care Note [code = 26120-3] Goal Plan of Care Note [code = 38777-3] Goal Plan of Care Note [code = 36263-4] Goal Plan of Care Note [code = 29770-3] Goal Plan of Care Note [code = 16674-1] Goal Plan of Care Note [code = 81416-3] Goal Plan of Care Note [code = 45252-7] Goal Plan of Care Note [code = 53291-7] Goal Plan of Care Note [code = 50323-3] Goal Plan of Care Note [code = 46544-1] Goal Plan of Care Note [code = 82869-5] Goal Plan of Care Note [code = 88180-1] Goal Plan of Care Note [code = 09315-9] Goal Plan of Care Note [code = 29900-0] Goal Plan of Care Note [code = 18305-3] Goal Plan of Care Note [code = 13046-6] Goal Plan of Care Note [code = 67492-0] Goal Plan of Care Note [code = 89477-0] Goal Plan of Care Note [code = 30362-4] Goal Plan of Care Note [code = 14327-7] Goal Plan of Care Note [code = 65564-8] Goal Plan of Care Note [code = 47087-1] Goal Plan of Care Note [code = 82916-3] Goal Plan of Care Note [code = 67161-2] Goal Plan of Care Note [code = 43121-7] Goal Plan of Care Note [code = 32853-1] Goal Plan of Care Note [code = 47624-0] Goal Plan of Care Note [code = 00913-5] Goal Plan of Care Note [code = 78199-0] Goal Plan of Care Note [code = 94908-8] Goal Plan of Care Note [code = 56533-7] Goal Plan of Care Note [code = 96002-9] Goal Plan of Care Note [code = 30379-2] Goal Plan of Care Note [code = 97384-6] Goal Plan of Care Note [code = 01675-3] Goal Plan of Care Note [code = 58355-8] Goal Plan of Care Note [code = 92000-8] Goal Plan of Care Note [code = 34009-8] Goal Plan of Care Note [code = 67052-8] Goal Plan of Care Note [code = 30966-0] Goal Plan of Care Note [code = 80467-0] Goal Plan of Care Note [code = 72195-0] Goal Plan of Care Note [code = 51041-2] Goal Plan of Care Note [code = 69335-6] Goal Plan of Care Note [code = 86948-6] Goal Plan of Care Note [code = 44572-8] Goal Plan of Care Note [code = 44201-4] Goal Plan of Care Note [code = 93400-5] Goal Plan of Care Note [code = 09012-5] Goal Plan of Care Note [code = 05482-6] Goal Plan of Care Note [code = 43810-0] Goal Plan of Care Note [code = 45125-7] Goal Plan of Care Note [code = 21121-6] Goal Plan of Care Note [code = 19420-9] Goal Plan of Care Note [code = 62991-0] Goal Plan of Care Note [code = 79929-2] Goal Plan of Care Note [code = 05104-5] Goal Plan of Care Note [code = 07718-8] Goal Plan of Care Note [code = 51386-6] Goal Plan of Care Note [code = 08289-3] Goal Plan of Care Note [code = 70976-3] Goal Plan of Care Note [code = 09173-7] Goal Plan of Care Note [code = 90368-5] Goal Plan of Care Note [code = 40748-1] Goal Plan of Care Note [code = 02827-8] Goal Plan of Care Note [code = 79239-5] Goal Plan of Care Note [code = 94740-6] Goal Plan of Care Note [code = 46350-0] Goal Plan of Care Note [code = 01993-9] Goal Plan of Care Note [code = 21632-6] Goal Plan of Care Note [code = 27737-5] Goal Plan of Care Note [code = 44993-4] Goal Plan of Care Note [code = 49042-2] Goal Plan of Care Note [code = 30389-1] Goal Plan of Care Note [code = 62496-2] Goal Plan of Care Note [code = 90016-9] Goal Plan of Care Note [code = 66122-6] Goal Plan of Care Note [code = 12741-6] Goal Plan of Care Note [code = 51427-1] Goal Plan of Care Note [code = 67702-6] Goal Plan of Care Note [code = 06338-3] Goal Plan of Care Note [code = 87357-1] Goal Plan of Care Note [code = 56071-2] Goal Plan of Care Note [code = 11998-6] Goal Plan of Care Note [code = 92890-8] Goal Plan of Care Note [code = 67828-7] Goal Plan of Care Note [code = 26501-8] Goal Plan of Care Note [code = 15887-9] Goal Plan of Care Note [code = 76060-6] Goal Plan of Care Note [code = 58641-4] Goal Plan of Care Note [code = 87654-0] Goal Plan of Care Note [code = 47481-4] Goal Plan of Care Note [code = 71462-7] Goal Plan of Care Note [code = 53964-5] Goal Plan of Care Note [code = 28517-5] Goal Plan of Care Note [code = 70408-3] Goal Plan of Care Note [code = 07629-5] Goal Plan of Care Note [code = 09356-5] Goal Plan of Care Note [code = 58177-7] Goal Plan of Care Note [code = 61188-2] Goal Plan of Care Note [code = 58083-8] Goal Plan of Care Note [code = 12905-7] Goal Plan of Care Note [code = 78431-0] Goal Plan of Care Note [code = 53015-1] Goal Plan of Care Note [code = 89108-3] Goal Plan of Care Note [code = 05743-3] Goal Plan of Care Note [code = 78306-8] Goal Plan of Care Note [code = 21012-5] Goal Plan of Care Note [code = 69041-5] Goal Plan of Care Note [code = 56891-2] Goal Plan of Care Note [code = 56979-7] Goal Plan of Care Note [code = 47156-7] Goal Plan of Care Note [code = 50411-9] Goal Plan of Care Note [code = 96545-2] Goal Plan of Care Note [code = 16754-5] Goal Plan of Care Note [code = 77605-9] Goal Plan of Care Note [code = 41675-0] Goal Plan of Care Note [code = 98790-1] Goal Plan of Care Note [code = 24530-9] Goal Plan of Care Note [code = 35900-4] Goal Plan of Care Note [code = 10362-7] Goal Plan of Care Note [code = 97799-6] Goal Plan of Care Note [code = 08166-0] Goal Plan of Care Note [code = 04487-7] Goal Plan of Care Note [code = 76646-8] Goal Plan of Care Note [code = 28522-8] Goal Plan of Care Note [code = 69885-9] Goal Plan of Care Note [code = 20022-0] Goal Plan of Care Note [code = 70818-5] Goal Plan of Care Note [code = 13702-1] Goal Plan of Care Note [code = 50614-6] Goal Plan of Care Note [code = 73102-1] Goal Plan of Care Note [code = 45318-9] Goal Plan of Care Note [code = 22639-8] Goal Plan of Care Note [code = 93638-1] Goal Plan of Care Note [code = 97722-4] Goal Plan of Care Note [code = 96952-4] Goal Plan of Care Note [code = 30281-4] Goal Plan of Care Note [code = 55224-2] Goal Plan of Care Note [code = 70202-5] Goal Plan of Care Note [code = 65003-5] Goal Plan of Care Note [code = 82987-2] Goal Plan of Care Note [code = 23776-0] Goal Plan of Care Note [code = 18999-9] Goal Plan of Care Note [code = 19390-8] Goal Plan of Care Note [code = 76165-1] Goal Plan of Care Note [code = 33602-6] Goal Plan of Care Note [code = 31705-9] Goal Plan of Care Note [code = 61903-7] Goal Plan of Care Note [code = 80813-3] Goal Plan of Care Note [code = 65412-1] Goal Plan of Care Note [code = 24033-9] Goal Plan of Care Note [code = 59055-5] Goal Plan of Care Note [code = 76177-0] Goal Plan of Care Note [code = 89602-1] Goal Plan of Care Note [code = 53473-7] Goal Plan of Care Note [code = 74059-6] Goal Plan of Care Note [code = 41545-0] Goal Plan of Care Note [code = 08232-2] Goal Plan of Care Note [code = 05971-3] Goal Plan of Care Note [code = 52402-2] Goal Plan of Care Note [code = 32226-4] Goal Plan of Care Note [code = 89485-6] Goal Plan of Care Note [code = 95061-3] Goal Plan of Care Note [code = 55950-8] Goal Plan of Care Note [code = 47539-7] Goal Plan of Care Note [code = 96095-4] Goal Plan of Care Note [code = 69989-3] Goal Plan of Care Note [code = 76649-9] Goal Plan of Care Note [code = 99981-5] Goal Plan of Care Note [code = 12339-4] Goal Plan of Care Note [code = 65758-4] Goal Plan of Care Note [code = 25099-1] Goal Plan of Care Note [code = 77537-5] Goal Plan of Care Note [code = 33881-7] Goal Plan of Care Note [code = 71369-7] Goal Plan of Care Note [code = 66364-1] Goal Plan of Care Note [code = 05707-5] Goal Plan of Care Note [code = 21018-7] Goal Plan of Care Note [code = 30153-3] Goal Plan of Care Note [code = 16028-3] Goal Plan of Care Note [code = 75375-4] Goal Plan of Care Note [code = 53289-2] Goal Plan of Care Note [code = 19709-4] Goal Plan of Care Note [code = 26112-3] Goal Plan of Care Note [code = 35135-2] Goal Plan of Care Note [code = 39647-0] Goal Plan of Care Note [code = 74192-8] Goal Plan of Care Note [code = 77241-4] Goal Plan of Care Note [code = 05031-0] Goal Plan of Care Note [code = 61958-6] Goal Plan of Care Note [code = 25349-2] Goal Plan of Care Note [code = 74089-7] Goal Plan of Care Note [code = 01260-9] Goal Plan of Care Note [code = 67801-7] Goal Plan of Care Note [code = 70242-2] Goal Plan of Care Note [code = 83805-2] Goal Plan of Care Note [code = 01040-5] Goal Plan of Care Note [code = 21494-8] Goal Plan of Care Note [code = 41906-6] Goal Plan of Care Note [code = 58114-6] Goal Plan of Care Note [code = 85077-3] Goal Plan of Care Note [code = 09468-6] Goal Plan of Care Note [code = 70515-3] Goal Plan of Care Note [code = 35322-0] Goal Plan of Care Note [code = 78394-9] Goal Plan of Care Note [code = 58237-3] Goal Plan of Care Note [code = 09023-7] Goal Plan of Care Note [code = 30463-0] Goal Plan of Care Note [code = 72134-0] Goal Plan of Care Note [code = 77184-1] Goal Plan of Care Note [code = 28807-0] Goal Plan of Care Note [code = 32381-6] Goal Plan of Care Note [code = 03288-4] Goal Plan of Care Note [code = 00941-5] Goal Plan of Care Note [code = 39153-1] Goal Plan of Care Note [code = 21162-2] Goal Plan of Care Note [code = 74479-9] Goal Plan of Care Note [code = 22962-7] Goal Plan of Care Note [code = 47132-0] Goal Plan of Care Note [code = 91721-2] Goal Plan of Care Note [code = 63751-3] Goal Plan of Care Note [code = 96918-0] Goal Plan of Care Note [code = 87647-9] Goal Plan of Care Note [code = 60599-6] Goal Plan of Care Note [code = 26972-4] Goal Plan of Care Note [code = 04419-0] Goal Plan of Care Note [code = 41404-6] Goal Plan of Care Note [code = 21317-8] Goal Plan of Care Note [code = 96086-5] Goal Plan of Care Note [code = 75367-0] Goal Plan of Care Note [code = 74142-0] Goal Plan of Care Note [code = 03688-8] Goal Plan of Care Note [code = 22529-3] Goal Plan of Care Note [code = 38599-6] Goal Plan of Care Note [code = 10781-5] Goal Plan of Care Note [code = 94668-7] Goal Plan of Care Note [code = 46664-3] Goal Plan of Care Note [code = 96455-5] Goal Plan of Care Note [code = 80911-3] Goal Plan of Care Note [code = 91229-8] Goal Plan of Care Note [code = 02400-6] Goal Plan of Care Note [code = 89634-3] Goal Plan of Care Note [code = 16939-6] Goal Plan of Care Note [code = 58646-8] Goal Plan of Care Note [code = 50736-0] Goal Plan of Care Note [code = 73584-9] Goal Plan of Care Note [code = 83399-4] Goal Plan of Care Note [code = 58626-5] Goal Plan of Care Note [code = 65362-2] Goal Plan of Care Note [code = 76817-8] Goal Plan of Care Note [code = 24656-1] Goal Plan of Care Note [code = 84761-5] Goal Plan of Care Note [code = 75185-1] Goal Plan of Care Note [code = 60707-5] Goal Plan of Care Note [code = 35593-6] Goal Plan of Care Note [code = 38236-4] Goal Plan of Care Note [code = 47005-2] Goal Plan of Care Note [code = 43710-8] Goal Plan of Care Note [code = 52225-5] Goal Plan of Care Note [code = 37859-6] Goal Plan of Care Note [code = 04522-8] Goal Plan of Care Note [code = 66675-1] Goal Plan of Care Note [code = 28265-6] Goal Plan of Care Note [code = 50961-5] Goal Plan of Care Note [code = 20789-3] Goal Plan of Care Note [code = 59492-7] Goal Plan of Care Note [code = 71806-8] Goal Plan of Care Note [code = 18761-9] Goal Plan of Care Note [code = 36330-3] Goal Plan of Care Note [code = 26031-9] Goal Plan of Care Note [code = 29686-2] Goal Plan of Care Note [code = 79371-1] Goal Plan of Care Note [code = 81372-6] Goal Plan of Care Note [code = 70517-3] Goal Plan of Care Note [code = 43646-5] Goal Plan of Care Note [code = 75018-8] Goal Plan of Care Note [code = 07710-0] Goal Plan of Care Note [code = 10951-7] Goal Plan of Care Note [code = 67977-1] Goal Plan of Care Note [code = 74866-3] Goal Plan of Care Note [code = 53859-1] Goal Plan of Care Note [code = 43526-8] Goal Plan of Care Note [code = 73083-0] Goal Plan of Care Note [code = 20836-5] Goal Plan of Care Note [code = 83624-2] Goal Plan of Care Note [code = 37898-3] Goal Plan of Care Note [code = 92844-5] Goal Plan of Care Note [code = 52327-9] Goal Plan of Care Note [code = 29802-0] Goal Plan of Care Note [code = 47433-8] Goal Plan of Care Note [code = 77391-3] Goal Plan of Care Note [code = 03352-0] Goal Plan of Care Note [code = 71432-2] Goal Plan of Care Note [code = 23315-2] Goal Plan of Care Note [code = 95148-1] Goal Plan of Care Note [code = 38725-7] Goal Plan of Care Note [code = 99808-0] Goal Plan of Care Note [code = 95225-2] Goal Plan of Care Note [code = 25107-5] Goal Plan of Care Note [code = 85579-0] Goal Plan of Care Note [code = 59065-2] Goal Plan of Care Note [code = 70448-2] Goal Plan of Care Note [code = 68481-8] Goal Plan of Care Note [code = 10867-8] Goal Plan of Care Note [code = 67174-8] Goal Plan of Care Note [code = 06353-5] Goal Plan of Care Note [code = 97653-1] Goal Plan of Care Note [code = 92910-4] Goal Plan of Care Note [code = 82977-3] Goal Plan of Care Note [code = 76887-0] Goal Plan of Care Note [code = 04268-7] Goal Plan of Care Note [code = 49858-9] Goal Plan of Care Note [code = 38794-5] Goal Plan of Care Note [code = 98551-6] Goal Plan of Care Note [code = 42270-7] Goal Plan of Care Note [code = 64337-4] Goal Plan of Care Note [code = 31084-2] Goal Plan of Care Note [code = 58272-4] Goal Plan of Care Note [code = 17324-5] Goal Plan of Care Note [code = 30932-4] Goal Plan of Care Note [code = 41592-5] Goal Plan of Care Note [code = 26349-2] Goal Plan of Care Note [code = 47191-4] Goal Plan of Care Note [code = 33299-1] Goal Plan of Care Note [code = 95242-2] Goal Plan of Care Note [code = 22565-9] Goal Plan of Care Note [code = 67892-4] Goal Plan of Care Note [code = 43823-3] Goal Plan of Care Note [code = 47702-2] Goal Plan of Care Note [code = 98574-6] Goal Plan of Care Note [code = 06929-0] Goal Plan of Care Note [code = 12109-7] Goal Plan of Care Note [code = 28731-7] Goal Plan of Care Note [code = 59187-1] Goal Plan of Care Note [code = 43885-4] Goal Plan of Care Note [code = 99785-8] Goal Plan of Care Note [code = 64335-7] Goal Plan of Care Note [code = 45901-6] Goal Plan of Care Note [code = 95718-0] Goal Plan of Care Note [code = 42826-3] Goal Plan of Care Note [code = 58993-0] Goal Plan of Care Note [code = 86933-8] Goal Plan of Care Note [code = 43167-2] Goal Plan of Care Note [code = 13533-7] Goal Plan of Care Note [code = 78232-1] Goal Plan of Care Note [code = 88627-5] Goal Plan of Care Note [code = 09675-2] Goal Plan of Care Note [code = 61554-9] Goal Plan of Care Note [code = 32473-0] Goal Plan of Care Note [code = 39447-4] Goal Plan of Care Note [code = 03519-0] Goal Plan of Care Note [code = 03226-3] Goal Plan of Care Note [code = 82335-4] Goal Plan of Care Note [code = 41191-2] Goal Plan of Care Note [code = 88369-5] Goal Plan of Care Note [code = 59731-1] Goal Plan of Care Note [code = 85756-5] Goal Plan of Care Note [code = 03420-3] Goal Plan of Care Note [code = 15492-5] Goal Plan of Care Note [code = 84435-6] Goal Plan of Care Note [code = 26106-4] Goal Plan of Care Note [code = 39213-9] Goal Plan of Care Note [code = 08285-5] Goal Plan of Care Note [code = 08565-5] Goal Plan of Care Note [code = 61155-0] Goal Plan of Care Note [code = 81797-5] Goal Plan of Care Note [code = 56405-7] Goal Plan of Care Note [code = 30026-7] Goal Plan of Care Note [code = 47489-7] Goal Plan of Care Note [code = 32932-3] Goal Plan of Care Note [code = 57778-5] Goal Plan of Care Note [code = 37710-3] Goal Plan of Care Note [code = 68087-3] Goal Plan of Care Note [code = 92228-9] Goal Plan of Care Note [code = 40986-9] Goal Plan of Care Note [code = 38682-9] Goal Plan of Care Note [code = 86056-7] Goal Plan of Care Note [code = 03900-8] Goal Plan of Care Note [code = 79468-0] Goal Plan of Care Note [code = 35723-3] Goal Plan of Care Note [code = 19804-2] Goal Plan of Care Note [code = 12725-0] Encounters Start End Encounter Admission Attending Care Care Encounter Source Date/Time Date/Time Type Type Clinicians Facility Department ID 2023-02-28 Outpatient Muñiz, STLMLC STLMLC [id number] Common 10:19:00 Radha [id number] [facility] 2022-09-12 Outpatient Stanford, Na STLMLC STLMLC [id number] Common 09:27:00 [facility] 2022-09-01 Outpatient Stanford, Na STLMLC STLMLC [id number] Common 15:16:00 [facility] 2022-04-11 Outpatient Stanford, Na STLMLC STLMLC [id number] 2 Common 12:56:00 [facility] 2021-10-27 Outpatient Stanford, Na STLMLC STLMLC [id number] 2 Common 14:22:04 [id number] [facility] 2021-10-27 Outpatient STLMLC STLMLC [id number] Common 13:44:09 [id number] [facility] 2021-10-27 Outpatient Hector, STLMLC STLMLC [id number] Common 12:14:07 Krys 24674 [facility] 2021-10-27 Outpatient Hector, STLMLC STLMLC [id number] Common 12:00:50 Krys 23313 [facility] 2021-10-27 Outpatient Millender, STLMLC STLMLC [id number] Common 11:50:51 Brittnee 86623 [facility] 2021-10-27 Outpatient Millender, STLMLC STLMLC [id number] Common 11:48:39 Brittnee [id number] [facility] 2021-10-27 Outpatient Millender, STLMLC STLMLC [id number] Common 11:31:44 Brittnee [id number] [facility] 2021-10-27 Outpatient Millender, STLMLC STLMLC [id number] Common 11:31:31 Brittnee 22218 [facility] 2023-11-24 2023-11-24 Outpatient SAKINA CRISOSTOMO [id number] Sakina 09:30:00 09:30:00 TASIA Seybo ld 2023-11-09 2023-11-09 Outpatient SAKINA HONG [id number] Sakina 09:45:00 09:45:00 CHRISTEL Seybol d 2023-09-18 2023-09-18 Outpatient SAKINA KIRBY [id number] Sakina 09:10:00 09:10:00 REUBEN Seybol d 2023-09-06 2023-09-06 Outpatient SAKINA PINEDA [id number] Sakina 10:15:00 10:15:00 DIANE Seybol d 2023-08-30 2023-08-30 Outpatient SAKINA KIRBY [id number] Sakina 09:50:00 09:50:00 REUBEN Seybol d 2023-08-28 2023-08-28 Outpatient SAKINA ANDERSON [id number] Sakina 16:00:00 16:00:00 EVISIT Seybol d 2023-08-22 2023-08-22 Outpatient SAKINA OBANDO [id number] Sakina 00:00:00 00:00:00 VERONICA Seybol d 2023-08-22 2023-08-22 Outpatient SAKINA OBANDO [id number] Sakina 00:00:00 00:00:00 VERONICA Seybol d 2023-08-19 2023-08-19 Outpatient SAKINA HONG [id number] Sakina 00:00:00 00:00:00 CHRISTEL Seybol d 2023-08-15 2023-08-15 Outpatient SAKINA OBANDO [id number] Sakina 14:30:00 14:30:00 VERONICA Seybol d 2023-08-09 2023-08-09 Outpatient SAKINA HONG [id number] Sakina 13:30:00 13:30:00 CHRISTEL Seybol d 2023-08-09 2023-08-09 Outpatient Ursula ROGEL [facility] [id number] [facility] 10:30[facility]00 10:30:[facility] 2023-[facility]-09 Outpatient SAKINA HONG [id number] Sakina 00:00:00 00:00:00 CHRISTEL Seybol d 2023-08-08 2023-08-08 Outpatient OBANDOSAKINA [id number] Sakina 13:30:00 13:30:00 VERONICA Seybol d 2023-08-03 2023-08-03 Outpatient SAKINA KIRBY [id number] Sakina 11:10:00 11:10:00 REUBEN Seybol d 2023-08-02 2023-08-02 Outpatient YANELIS HODGE [id number] Sakina 12:45:00 12:45:00 Seybol d 2023-08-02 2023-08-02 Outpatient GC_GCBZW_Ka PRIV PRIV [id number] [facility] 00:00:00 00:00:00 diyala_S [id number] Medic al 2023-08-02 2023-08-02 Outpatient NAVEEN YANELIS SAKINA PRESLEY [id number] Sakina 00:00:00 00:00:00 Seybol d 2023-07-28 2023-07-28 Outpatient SAKINA HONG [id number] Sakina 00:00:00 00:00:00 CHRISTEL Seybol d 2023-07-27 2023-07-27 Outpatient SAKINA RODRIGUEZ [id number] Sakina 11:30:00 11:30:00 BIPIN Seybol d 2023-07-27 2023-07-27 Outpatient LAB90 SAKINA PRESLEY [id number] Sakina 10:40:00 10:40:00 Seybol d 2023-07-26 2023-07-26 Outpatient LASHELL KOHLI 127 [id number] Sakina 00:00:00 00:00:00 Seybol d 2023-07-24 2023-07-24 Outpatient SAKINA PRESLEY [id number] Sakina 15:45:00 15:45:00 Seybol d 2023-07-17 2023-07-17 Outpatient ANDREW CARMONA [facility] [id number] Univers 13:30:00 13:30:00 ity of [facility] 2023-07-17 2023-07-17 Outpatient JONATHANSAKINA [id number] Sakina 08:30:00 08:30:00 TANJA Seybol d 2023-07-13 2023-07-13 Outpatient GELYSAKINA [id number] Sakina 09:45:00 09:45:00 CHRISTEL Seybol d 2023-07-11 2023-07-11 Outpatient KOFISAKINA [id number] Sakina 11:10:00 11:10:00 REUBEN Seybol d 2023-07-11 2023-07-11 Outpatient JENNIANGELSYLAmbrose PRESLEY [id number] Sakina 00:00:00 00:00:00 MD KATHERIN Seybol d 2023-07-11 2023-07-11 Outpatient SAKINA GALLAGHER [id number] Sakina 00:00:00 00:00:00 DONAL burgos 2023-07-10 2023-07-10 Outpatient SAKINA GALLAGHER [id number] Sakina 10:30:00 10:30:00 DONAL burgos 2023-07-06 2023-07-06 Patient Doctor [facility] 1.2.840.114 [id number] Univers 00:00:00 00:00:00 Secure Msg Unassigned, [place] 350.1.13.10 ity of [place]KE 4.2.7.2.686 Miguela chayo PROFESSIO [phone] Mo [address] 2023-07-05 2023-07-05 Outpatient SAKINA PRESLEY [id number] Sakina 09:15:00 09:15:00 Seybol d 2023-07-05 2023-07-05 Outpatient SAKINA PRESLEY [id number] Sakina 09:10:00 09:10:00 Seybol d 2023-07-05 2023-07-05 Outpatient KAMILLA, LASHELL SAKINA PRESLEY [id number] Sakina 08:00:00 08:00:00 Seybol d 2023-07-05 2023-07-05 Outpatient SAKINA PAGE [id number] Sakina 00:00:00 00:00:00 MANOJ Seybol d 2023-07-05 2023-07-05 Outpatient PREZASAKINA Lopez [id number] Sakina 00:00:00 00:00:00 CHRISTEL Seybol d 2023-07-03 2023-07-03 Outpatient LAB90 SAKINA PRESLEY [id number] Sakina 08:10:00 08:10:00 Seybol d 2023-06-28 2023-06-28 Outpatient SFA SFA [id number] Augusto 08:21:30 08:21:30 0927 F Kaushik 2023-06-22 2023-06-22 Outpatient DALILA [id number] Sakina 15:30:00 15:30:00 Seybol d 2023-06-22 2023-06-22 Outpatient SAKINA HONG [id number] Sakina 00:00:00 00:00:00 CHRISTEL Seybol d 2023-06-22 2023-06-22 Outpatient JACKI PRESLEY [id number] Sakina 00:00:00 00:00:00 MD KATHERIN Seybol d 2023-06-19 2023-06-19 Outpatient JACKI PRESLEY [id number] Sakina 00:00:00 00:00:00 MD KATHERIN Seybol d 2023-06-16 2023-06-16 Outpatient SAKINA PRESLEY [id number] Sakina 00:00:00 00:00:00 Seybol d 2023-06-14 2023-06-14 Outpatient PRESAKINA FRIEND [id number] Sakina 00:00:00 00:00:00 CHRISTEL Seybol d 2023-06-13 2023-06-13 Outpatient SAKINA HONG [id number] Sakina 14:15:00 14:15:00 CHRISTEL Seybol d 2023-05-18 2023-05-18 Outpatient SAKINA PAGE [id number] Sakina 12:45:00 12:45:00 MANOJ Seybol d 2023-05-18 2023-05-18 Outpatient SAKINA PAGE SAKINA [id number] Sakina 12:45:00 12:45:00 MANOJ Billingsley connie 2023-05-11 2023-05-11 [id number] [facility] 10:15:00 10:52:51 , AC ity of [facility] 2023-05-11 2023-05-11 Office [facility] 1.2.840.114 [id number] [facility] 10:15:00 10:52:51 Visit , Ac SPECIALTY 350.1.13.10 [place] [phone] Mo arlyn CONRAD [address] [place] [address] 2023-05-02 2023-05-02 Telephone [facility] 1.2.840.114 [id number] Univers 00:00:00 00:00:00 , Ac SPECIALTY 350.1.13.10 [place] [id number] Mo arlyn CONRAD [address] [place] [address] 2023-05-01 2023-05-01 Telephone [facility] 1.2.840.114 [id number] Univers 00:00:00 00:00:00 , Ac SPECIALTY 350.1.13.10 [place] [phone] Mo quitaave CONRAD [address] [place] [address] 2023-05-01 2023-05-01 Orders Doctor DYLAN 1.2.840.114 [id number] Univers 00:00:00 00:00:00 Only Unassigned, [place] 350.1.13.10 ity of [place] [facility] 4.2.7.2.686 Miguel as [id number] [address] 2023-04-12 2023-04-12 Orders Doctor DYLAN 1.2.840.114 [id number] Univers 00:00:00 00:00:00 Only Unassigned, [place] 350.1.13.10 ity of [place] [facility] 4.2.7.2.686 Miguel as [id number] [facility] [address] [place] [address] 2023-04-10 2023-04-10 Telephone Davidson [facility] 1.2.840.114 [id number] Univers 00:00:00 00:00:00 , Ac SPECIALTY 350.1.13.10 ity of CARE 4.2.7.2.686 [facility] AT [id number] Mo arlyn CONRAD 198 [facility] 2023-03-30 2023-03-30 Outpatient Urs[facility] [id number] Univers 00:00:00 00:00:00 SENDIL ity [facility] 2023-03-23 2023-03-23 Outpatient [facility] [id number] Univers 10:24:27 23:59:00 [facility]-23 2023-03-23 [facility] 1.2.840.114 [id number] Univers 10:24:27 23:59:00 Encounter Colin EDWARDS 350.1.13.10 ity of [place] 4.2.7.[address] [place] [address] [phone] [facility] [address] 2023-03-22 2023-03-22 Outpatient R [facility] [id number] Univers 00:00:00 00:00:00 SENDIL y [facility] 2023-03-02 2023-03-02 Patient Kerryizabel [facility] 1.2.840.114 [id number] Univers 00:00:00 00:00:00 Secure Msg , Ac SPECIALTY 350.1.13.10 ity of CARE 4.2.7.2.686 [facility] AT [phone] Mo arlyn CONRAD 198 [facility] 2023-02-14 2023-02-14 Orders Doctor DYLAN 1.2.840.114 [id number] Univers 00:00:00 00:00:00 Only Unassigned, [place] 350.1.13.10 ity of [place] [facility] 4.2.7.2.686 [facility] [id number] [facility] [address] 2023-02-10 2023-02-10 Outpatient Ursula [facility] [id number] Univers 00:00:00 00:00:00 COLIN ity [facility] 2023-02-06 2023-02-06 [facility] 1.2.840.114 [id number] Univers 09:00:00 09:28:18 Visit Archana [place] 350.1.13.10 [facility] [place] [id number] Mo dical NAL 059 [facility] 2023-02-06 2023-02-06 Outpatient R PEBBLES [facility] [id number] Univers 09:00:00 09:28:18 SENDIL [facility] 2023-02-01 2023-02-01 Telephone Andrew Ovalle [facility] 1.2.840.114 10 [id number] Univers 00:00:00 00:00:00 Florentino EDWARDS 350.1.13.10 i [place] of [place] [id number] Mo dical NAL 134 [facility] 2023-01-26 2023-01-26 Office [facility] 1.2.840.114 10 [id number] Univers 13:45:00 15:07:58 Visit , Ac [place] 350.1.13.10 ity of [facility] 4.2.7.2.[place] [id number] Mo arlyn HOU[place] 198 [facility] 2023-01-26 2023-01-26 Outpatient R DAVIDSON [facility] [id number] Univers 13:45:00 15:07:58 , AC ity [facility] 2023-01-26 2023-01-26 Telephone Pebbles [facility] 1.2.458.153 [id number] Univers 00:00:00 00:00:00 Sendfavio [place] 350.1.13.10 ity [facility] 4.2.7.2.[place] [phone] Mo dical NAL 059 [facility] 2023-01-26 2023-01-26 Case Andrew Ovalle [facility] 1.2.355.474 [id number] Univers 00:00:00 00:00:00 Management Florentino [place] 350.1.13.10 ity [facility] 4.2.7.2.[place] [id number] Mo dical NAL 134 [facility] 2023-01-26 2023-01-26 Telephone Pebbles [facility] 1.2.910.968 [id number] Univers 00:00:00 00:00:00 Sendfavio [place] 350.1.13.10 ity [facility] 4.2.7.2.[place] [id number] Mo dical NAL 059 [facility] 2023-01-25 2023-01-25 Combiner 2, Adc Lab [facility] 1.2.840.114 [id number] Univers 15:30:00 15:45:00 Visit Andrew Ovalle 350.1.13.10 ity [facility] 4.2.7.[place] [id number] Mo dicave NICOLE 353 [facility] 2023-01-25 2023-01-25 Office Andrew Ovalle [facility] 1.2.884.531 [id number] Univers 15:00:00 15:00:00 Visit Florentino [place] 350.1.13.10 i ty [facility] 4.2.7.2.[place] [id number] Mo dical NAL 134 [facility] 2023-01-25 2023-01-25 Outpatient R ANDREW OVALLE [facility] [id number] Univers 15:00:00 14:56:59 ity of [facility] 2023-01-23 2023-01-23 Office Nicolasa [facility] 1.2.840.114 10 [id number] Univers 10:10:00 10:20:00 Visit Lalo SPECIALTY 350.1.13.10 [place] [id number] Mo arlyn CONRAD 198 [facility] 2023-01-23 2023-01-23 Outpatient R NICOLASA [facility] [id number] Univers 10:10:00 10:10:00 LALO ity of [facility] 2023-01-23 2023-01-23 Orders Doctor DYLAN 1.2.840.114 [id number] Univers 00:00:00 00:00:00 Only Unassigned, MOR[place] 350.1.13.10 ity of [place] [facility] 4.2.7.2.686 Miguel as [phone] [address] 2023-01-23 2023-01-23 Patient Andrew Ovalle [facility] 1.2.016.878 [id number] Univers 00:00:00 00:00:00 Secure Msg Florentino EDWARDS 350.1.13.10 it[place] of [place].2.[place] [phone] Mo dical NAL 134 [facility] 2023-01-16 2023-01-16 Outpatient R VASQUEZ [facility] [id number] Univers 14:30:00 14:30:00 ity [facility] 2023-01-12 2023-01-12 Outpatient R VASQUEZ [facility] [id number] Univers 15:00:00 15:31:18 ity [facility] 2023-01-12 2023-01-12 Office Vasquez [facility] 1.2.821.391 [id number] Univers 15:00:00 15:31:18 Visit Florentino FELIPERICO 350.1.13.10 i ty [facility] 4.2.7.2.[place] [phone] Mo dical NAL 134 [facility] 2023-01-10 2023-01-10 Orders Doctor DYLAN 1.2.840.114 [id number] Univers 00:00:00 00:00:00 Only Unassigned, MORGAN 350.1.13.10 ity of [place] [facility] 4.2.7.2.686 Miguel as [id number] [address] 2023-01-02 2023-01-02 Patient Davidson [facility] 1.2.840.114 10 [id number] Univers 00:00:00 00:00:00 Secure Msg , Ac SPECIALTY 350.1.13.10 [place] [id number] Mo dical VICTORY 198 [facility] 2022-12-29 2022-12-29 Outpatient [facility] [id number] Univers 00:00:00 00:00:00 COLIN ity [facility] 2022-12-27 2022-12-27 Outpatient R TERESA ACEVEDO [facility] [id number] Univers 15:00:00 15:00:00 TERESA ACEVEDO iteber [facility] 2022-12-27 2022-12-27 [facility] 1.2.394.727 [id number] Univers 07:50:00 10:40:00 Cam [place] 350.1.13.10 i ty of [place].2.7.2.[place] [id number] [facility] [address] 2022-12-27 2022-12-27 Outpatient R VASQUEZ [facility] SAND SHOVELER [id number] Univers 07:13:00 10:35:00 ity of [facility] 2022-12-27 2022-12-27 Hospital [facility] 1.2.840.114 [id number] Univers 07:13:00 10:35:00 Encounter Cam [place] 350.1.13.10 ity of [place] 4.2.7.2.[place] [id number] [facility] [address] 2022-12-27 2022-12-27 Orders Doctor YDLAN 1.2.840.114 [id number] Univers 00:00:00 00:00:00 Only Unassigned, MOR[place] 350.1.13.10 ity of [place] [facility] 4.2.7.2.686 Miguel as [phone] [address] 2022-12-26 2022-12-26 Outpatient R VASQUEZ [facility] [id number] Univers 09:15:00 09:15:00 ity [facility] 2022-12-21 2022-12-21 Telephone Vasquez [facility] 1.2.840.114 10 [id number] Univers 00:00:00 00:00:00 Cam [place] 350.1.13.10 i ty [facility] 4.2.7.2.[place] 396.1055148 Mo dical NAL 134 [facility] 2022-12-21 2022-12-21 Patient [facility] 1.2.840.114 10 [id number] Univers 00:00:00 00:00:00 Secure Msg , Ac SPECIALTY 350.1.13.10 it[place] [phone] Mo dical VICTORY 198 [facility] 2022-12-16 2022-12-16 Patient [facility] 1.2.840.114 10 [id number] Univers 00:00:00 00:00:00 Secure Msg , Ac SPECIALTY 350.1.13.10 [place] [id number] Mo dicave PACKY 198 [facility] 2022-12-16 2022-12-16 Telephone [facility] 1.2.840.114 [id number] Univers 00:00:00 00:00:00 , Ac SPECIALTY 350.1.13.10 it[place] 4[place]2.[place] [phone] Mo arlyn CONRAD [address] [place] [address] 2022-12-15 2022-12-15 Outpatient R [facility] 101 [id number] Univers 14:45:00 15:54:11 , AC ity of [facility] 2022-12-15 2022-12-15 Office [facility] 1.2.840.114 10 [id number] Univers 14:45:00 15:54:11 Visit , Ac SPECIALTY 350.1.13.10 it[place] 4[place]2.[place] 807.7772736 Mo dicave CONRAD 198 [facility] 2022-12-15 2022-12-15 Orders Doctor DYLAN 1.2.840.114 [id number] Univers 00:00:00 00:00:00 Only Unassigned, MORGAN 350.1.13.10 ity of [place] [facility] 4.2.7.2.686 Miguel as [phone] [address] 2022-12-12 2022-12-12 Patient Andrew Ovalle [facility] 1.2.959.217 [id number] Univers 00:00:00 00:00:00 Secure Msg Cam [place] 350.1.13.10 ity [facility] 4.2.7.2.[place] 847.0590931 Mo dical NAL 134 [facility] 2022-12-06 2022-12-06 Telephone Andrew Ovalle [facility] 1.2.840.114 10 [id number] Univers 00:00:00 00:00:00 Cam [place] 350.1.13.10 i ty [facility] [place].2.7.2.[place] [id number] [facility] [address] 2022-12-06 2022-12-06 Patient Pebbles [facility] 1.2.840.114 [id number] Univers 00:00:00 00:00:00 Secure Msg Sendil ShaunnaH. FELIPETON 350.1.13.10 ity of [place] 4.2.7.2.[place] [id number] Mo dical NAL 059 [facility] 2022-12-05 2022-12-05 Hospital Andrew Ovalle [facility] 1.2.840.114 101 [id number] Univers 10:06:40 23:59:00 Encounter Florentino WANGTON 350.1.13.10 ity of [place] 4.2.7.2.[place] [id number] [facility] [address] 2022-12-05 2022-12-05 Outpatient R ANDREW OVALLE [facility] [id number] Univers 09:45:00 10:08:31 ity of [facility] 2022-12-05 2022-12-05 Combiner 2, Adc Lab [facility] 1.2.840.114 [id number] Univers 09:45:00 10:00:00 Visit Andrew Ovalle FELIPETON 350.1.13.10 ity of [place] 4.2.7.2.[place] [id number] Mo dical NAL 353 [facility] 2022-12-05 2022-12-05 Orders Doctor RICHARDSON 1.2.840.114 [id number] Univers 00:00:00 00:00:00 Only Unassigned, MORGAN 350.1.13.10 ity of [place] [facility] 4.2.7.2.686 Miguel as [id number] [address] 2022-12-02 2022-12-02 Outpatient R PEBBLES [facility] [id number] Univers 09:00:00 09:33:56 SENDIL ity of [facility] 2022-12-02 2022-12-02 [facility] 1.2.840.114 [id number] Univers 09:00:00 09:33:56 Visit Sendil Joel EDWAR[place] 350.1.13.10 ity [facility] 4.2.7.2.[place] 107.3182126 Mo dic[address] 2022-12-02 2022-12-02 [facility]phone [facility] 1.2.116.793 [id number] Univers 00:00:00 00:00:00 Sendfavio EDWARDS 350.1.13.10 ity [facility] 4.2.7.2.[place] 753.8544227 Mo dicdc NAL [address] [place] [address] 2022-12-02 2022-12-02 Telephone [facility] 1.2.037.129 [id number] Univers 00:00:00 00:00:00 Sendfavio EDWARDS 350.1.13.10 ity [facility] 4.2.7.2.[place] [id number] Mo dicdc NAL [address] [place] [address] 2022-12-02 2022-12-02 Orders Doctor DYLAN 1.2.840.114 [id number] Univers 00:00:00 00:00:00 Only Unassigned, MORGAN 350.1.13.10 ity of [place] [facility] 4.2.7.2.686 Miguel as [id number] [address] 2022-12-01 2022-12-01 Orders Doctor DYLAN 1.2.840.114 [id number] Univers 00:00:00 00:00:00 Only Unassigned, MORGAN 350.1.13.10 ity of [place] [facility] 4.2.7.2.686 Miguel as 727.6284875 Medi selina [address] 2022-11-30 2022-11-30 Outpatient R NARCISA [facility] [id number] Univers 15:10:11 23:59:00 GLORY ity [facility] 2022-11-30 2022-11-30 [facility] 1.2.840.114 10 [id number] Univers 15:10:11 23:59:00 Encounter Glory GRACE 350.1.13.10 ity of [place].2.7.2.[place] [id number] Medi selina [address] 2022-11-29 2022-11-29 Outpatient R ANDREW OVALLE [facility] [id number] Univers 09:30:00 15:07:47 ity [facility] 2022-11-29 2022-11-29 Office Vasquez [facility] 1.2.954.946 [id number] Univers 09:30:00 15:07:47 Visit Florentino EDWARDS 350.1.13.10 i ty [facility] 4.2.7.2.[place] 571.1157523 Mo dical NAL [address] [place] [address] 2022-11-29 2022-11-29 Patient Manuel [facility] 1.2.840.114 [id number] Univers 00:00:00 00:00:00 Secure Msg Catrachita Boggs GRACE 350.1.13.10 ity [facility] 4.2.7.2.[place] [id number] Mo dical NAL 134 [facility] 2022-11-29 2022-11-29 Prep For Andrew Ovalle [facility] 1.2.840.114 101 [id number] Univers 00:00:00 00:00:00 Surgery Florentino GRACE 350.1.13.10 i ty [facility] 4.2.7.2.[place] 299.6623305 Mo dical NAL [address] [place] [address] 2022-11-24 2022-11-24 Outpatient R ANDREW OVALLE [facility] [id number] Univers 13:30:00 14:01:38 ity [facility] 2022-11-24 2022-11-24 Office Andrew Ovalle [facility] 1.2.857.120 [id number] Univers 13:30:00 14:01:38 Visit Florentino EDWAR[place] 350.1.13.10 i ty of [place].2.[place] [id number] Mo dical NAL 134 [facility] 2022-11-22 2022-11-22 Hospital [facility] 1.2.840.114 10 [id number] Univers 11:24:38 23:59:00 Encounter Glory SPECIALTY 350.1.13.10 it[place] [id number] Mo arlyn CONRAD 809 [facility] 2022-11-22 2022-11-22 Outpatient [facility] 1044 [id number] Univers 11:20:00 12:01:04 GLORY ity of [facility] 2022-11-22 2022-11-22 [facility] 1.2.840.114 100 [id number] Univers 11:20:00 11:40:00 Visit Glory SPECIALTY 350.1.13.10 it[place] 555.7877052 Mo quitaave CONRAD 198 [facility] 2022-11-16 2022-11-16 Outpatient R EDELMIRA [facility] [id number] Univers 10:45:00 11:39:09 COLIN ity of [facility] 2022-11-16 2022-11-16 [facility] 1.2.805.725 [id number] Univers 10:45:00 11:15:00 Visit Colin EDWARDS 350.1.13.10 i ty of [place].2.[place] 115.4053209 Mo dicdc NAL [address] [place] [address] 2022-11-16 2022-11-16 Patient Doctor DYLAN 1.2.840.114 [id number] Univers 00:00:00 00:00:00 Secure Msg Unassigned, MORGAN 350.1.13.10 ity of [place] [facility] 4.2.7.2.686 Miguel as [id number] [place] [address] [address] 2022-11-14 2022-11-14 Hospital [facility] 1.2.840.114 1 [id number] Univers 10:00:00 23:59:00 Encounter Lalo SPECIALTY 350.1.13.10 it[place] 357.8562243 Mo arlyn CONRAD 809 [facility] 2022-11-14 2022-11-14 Combiner Lab, Ang - Db [facility] 1.2.840.1 [id number] Univers 13:15:00 13:30:00 Visit Edelmira [facility] 350.1.13.10 ity of [place] 4.2.7.2.686 Miguel as KENNEDY?BLEA [phone] Mo quitaave KIM [address] MEDICAL OFFICE BUILDING 2022-11-14 2022-11-14 Outpatient R [facility] [id number] Univers 10:10:00 10:27:15 LALO ity of [facility] 2022-11-14 2022-11-14 Office [facility] 1.2.840.114 [id number] Univers 10:10:00 10:27:15 Visit Lalo SPECIALTY 350.1.13.10 [place] [phone] Mo arlyn CONRAD 198 [facility] 2022-11-14 2022-11-14 [facility] 1.2.840.114 1 [id number] Univers 09:59:51 09:59:51 Encounter Lalo SPECIALTY 350.1.13.10 [place] [phone] Mo quitaave CONRAD 809 [facility] 2022-11-08 2022-11-08 Orders Doctor DYLAN 1.2.840.114 [id number] Univers 00:00:00 00:00:00 Only Unassigned, MORGAN 350.1.13.10 ity of [facility] 4.2.7.2.686 Miguel as [id number] [facility] [address] 2022-11-04 2022-11-04 Patient [facility] 1.2.342.117 [id number] Univers 00:00:00 00:00:00 Secure Msg Colin EDWARDS 350.1.13.10 [place] [phone] Mo dical [facility] [address] BUILDING 2022-11-02 2022-11-02 Patient Andrew Ovalle [facility] 1.2.256.224 [id number] Univers 00:00:00 00:00:00 Secure Msg Florentino EDWARDS 350.1.13.10 [place] [id number] [address] 2022-11-01 2022-11-01 [facility], Scott - Jose [facility] 1.2.840.1 14 [id number] Univers 11:30:00 11:45:00 Visit Colin Hickey [facility] 350.1.13.10 [facility] 4.2.7.2.686 Miguel as KENNEDY?BLEA [phone] [address] OFFICE BUILDING 2022-11-01 2022-11-01 Outpatient R EDELMIRA [facility] [id number] Univers 11:30:00 11:34:33 COLIN ity of [facility] 2022-11-01 2022-11-01 Case DAVID Hickey 1.2.687.931 [id number] Univers 00:00:00 00:00:00 Management Colin PEDIATRIC 350.1.13.10 [place] [phone] [place] [address] [address] [facility] 2022-10-31 2022-10-31 Combiner 2, Adc Lab [facility] 1.2.840.114 [id number] Univers 11:45:00 12:00:00 Visit Andrew Ovalle 350.1.13.10 [place] [phone] [place] [address] [address] BU[address]ING 2022-10-31 2022-10-31 Outpatient R ANDREW OVALLE [facility] [id number] Univers 10:00:00 11:21:47 ity of [facility] 2022-10-31 2022-10-31 Office Colin Hickey [facility] 1.2.840.11 4 [id number] Univers 10:00:00 11:21:47 Visit Andrew Ovalle 350.1.13.10 [place] of [place] [phone] Mo dical [address] 2022-10-27 2022-10-27 Orders Doctor DYLAN [id number] Univers 00:00:00 00:00:00 Only Unassigned, MORGAN 350.1.13.10 ity of [facility] 4.2.7.2.686 Miguel as [phone] [address] 2022-10-27 2022-10-27 (TEL) STLMLC STLMLC [id number] Co mmon 00:00:00 00:00:00 [facility] 2022-10-26 2022-10-26 OFFICE STLMLC STLMLC [id number] Co mmon 00:00:00 00:00:00 VISIT EST Spir it PT LEVEL 3 [facility] 2022-10-14 2022-10-14 (TEL) STLMLC STLMLC [id number] Co mmon 00:00:00 00:00:00 [facility] 2022-10-05 2022-10-05 OFFICE STLMLC STLMLC [id number] Co mmon 00:00:00 00:00:00 VISIT EST Spir it PT LEVEL 3 - [facility] 2022-10-04 2022-10-04 Outpatient SFA SFA [id number] Augusto 10:05:21 10:05:21 0103 F Kaushik 2022-10-04 2022-10-04 Outpatient [id number]- [id number] [id number] 00:00:00 00:00:00 Visit 39aa-4be2 9aa-4be2-b -r31w-7z7 80b-8m570x 64wf3c69u f9a68c 2022-09-28 2022-09-28 Outpatient SFA SFA [id number] 022 Augusto 08:46:59 08:46:59 1228 F Kaushik 2022-09-28 2022-09-28 Outpatient [id number]- [id number] fa n8ub48-a 00:00:00 00:00:00 Visit o6c9-7o63 2b9-5g42-h -u6l3-4zh 9p4-7ig828 851mte524 yxv028 2022-09-18 2022-09-18 Outpatient SFA SFA [id number] Augusto 10:59:17 10:59:17 1218 F Kaushik 2022-09-18 2022-09-18 Outpatient [id number]- [id number] a1 x34bn4-f 00:00:00 00:00:00 Visit f41o-47p4 97d-43d3-a -zo0o-35h g6k-69p790 [id number] 2022-09-15 2022-09-15 Outpatient SFA SFA [id number] Augusto 13:46:23 13:46:23 1215 F Kaushik 2022-09-15 2022-09-15 OFFICE STLMLC STLMLC [id number] Co mmon 00:00:00 00:00:00 VISIT NEW Spir it PT LEVEL 3 - [facility] 2022-09-15 2022-09-15 Outpatient [id number]- [id number] 5l24yz-2 00:00:00 00:00:00 Visit 12fe-4247 2fe-4247-9 -93ff-29f 3ff-29f10e 22ij1428l q8012y 2022-09-05 2022-09-05 PREV VISIT STLMLC STLMLC [id number] Common 00:00:00 00:00:00 EST AGE Spirit 40-64 - [facility] 2022-07-13 2022-07-13 Outpatient SFA SFA [id number] Augusto 17:17:07 17:17:07 1012 F Kaushik 2022-07-13 2022-07-13 Outpatient gu1b1791- [id number] bc [id number] 00:00:00 00:00:00 Visit 5h66-3277 w69-8653-7 -53h3-bm5 0u3-ii2100 298515o5s 653d6b 2022-06-21 2022-06-21 Outpatient hji287oz- [id number] c795iq-4 00:00:00 00:00:00 Visit 33h6-412q 1z3-419y-9 -8800-e5b 800-e5bc2a t6r6v8ee5 3a1ae7 2022-06-13 2022-06-13 Outpatient [id number]- [id number] [id number] 00:00:00 00:00:00 Visit 49d4-1z53 0h7-6y49-7 -844a-346 44a-3462aa 7vc217fi8 333fb4 2022-06-10 2022-06-10 Outpatient c65wru58- [id number] 3ozd24-l 00:00:00 00:00:00 Visit xp1s-850x a5j-444f-a -v06z-ypr 30f-baeed1 cb63b7grs 3c2cfd 2022-06-07 2022-06-07 Outpatient [id number]- [id number] 5z3p9w-a 00:00:00 00:00:00 Visit y60j-8eu9 14d-4ac1-a -aca5-fb2 ca5-fb2d67 l64z27977 z90552 2022-06-02 2022-06-02 Outpatient [id number] 9036ff-e 00:00:00 00:00:00 Visit cu3t-27ox m7t-42gc-8 -3yh4-2ym ec9-7eb811 975703b3f 563b9b 2022-05-27 2022-05-27 Laboratory Only, Ang Db Test [facility] 1.2.8 40.114 [id number] Univers 14:15:00 14:30:00 Only [facility] 350.1.13.10 iteber mccarthy [place] 4.2.7.2.686 Miguel as KENNEDY?BLEA [phone] Me dical [address] OFFICE BUILDING 2022-05-27 2022-05-27 Outpatient R [facility] [id number] Univers 14:15:00 14:15:00 [id number] [facility] 2022-05-27 2022-05-27 Outpatient Ursula BRADSHAW [facility] [id number] Univers 14:15:00 14:15:00 RADHA [facility] 2022-04-22 2022-04-22 Outpatient [id number]- [id number] y0068h-7 00:00:00 00:00:00 Visit 5555-4f40 555-4f40-a -d60f-830 37d-209fea pnu05xh0z 58af1b 2021-06-30 2021-06-30 OFFICE STLMLC STLMLC [id number] Co mmon 00:00:00 00:00:00 VISIT EST Spir it PT LEVEL 3 - [facility] 2021-06-05 2021-06-05 (TEL) STLMLC STLMLC [id number] Co mmon 00:00:00 00:00:00 [facility] 2021-05-31 2021-05-31 OFFICE STLMLC STLMLC [id number] Co mmon 00:00:00 00:00:00 VISIT Spirit ESTAB PT - CHI LEVEL 4 [facility] 2021-01-09 2021-01-09 Outpatient [facility] [id number] Univers 11:55:00 11:55:00 [facility] 2020-12-19 2020-12-19 Outpatient [facility] [id number] Univers 16:25:00 16:25:00 [facility] 2020-11-04 2020-11-04 (TEL) STLMLC STLMLC [id number] Co mmon 00:00:00 00:00:00 [facility] 2020-11-03 2020-11-03 OFFICE STLMLC STLMLC [id number] Co mmon 00:00:00 00:00:00 VISIT EST Spir it PT LEVEL 3 - [facility] 2020-09-24 2020-09-24 (TEL) STLMLC STLMLC [id number] Co mmon 00:00:00 00:00:00 [facility] 2020-09-22 2020-09-22 OFFICE STLMLC STLMLC [id number] Co mmon 00:00:00 00:00:00 VISIT EST Spir it PT LEVEL 3 [facility] 2020-09-22 2020-09-22 (TEL) STLMLC STLMLC [id number] Co mmon 00:00:00 00:00:00 [facility] 2020-09-21 2020-09-21 (TEL) STLMLC STLMLC [id number] Co mmon 00:00:00 00:00:00 [facility] 2020-09-18 2020-09-18 OFFICE STLMLC STLMLC [id number] Co mmon 00:00:00 00:00:00 VISIT EST Spir it PT LEVEL 3 [facility] 2020-04-17 2020-04-17 Out[facility] [id number] Common 09:20:00 09:20:[address] [facility] [address] [facility] 2020-04-14 2020-04-14 Out[facility] [id number] Common 14:41:00 14:41:00 t [facility] [address] [facility] 2020-03-20 2020-03-20 [facility] [id number] Common 15:20:00 15:20:[address] [facility] 2019-12-18 2019-12-18 Out[facility] [id number] Common 09:22:00 09:22:[address] [facility] 2019-10-07 2019-10-07 Out[facility] [id number] Common 13:00:00 13:00:[address] [facility] 2019-09-17 2019-09-17 Out[facility] [id number] Common 10:42:00 10:42:[address] [facility] 2019-09-17 2019-09-17 Out[facility] [id number] Common 09:30:00 09:30:[address] [facility] 2019-07-24 2019-07-24 Out[facility] [id number] Common 00:37:00 00:37:[address] [facility] 2019-07-21 2019-07-21 Out[facility] [id number] Common 14:16:00 14:16:[address] [facility] 2019-07-19 2019-07-19 Out[facility] [id number] Common 12:07:00 12:07:[address] [facility] 2019-07-19 2019-07-19 Out[facility] [id number] Common 10:40:00 10:40:[address] [facility] 2019-06-10 2019-06-10 Out[facility] [id number] Common 09:59:00 09:59:00 [facility] 2019-06-07 2019-06-07 Out[facility] [id number] Common 16:30:00 16:30:00 [facility] 2018-07-02 2018-07-02 Out[facility] [id number] Common 10:54:00 10:54:[address] [facility] 2018-06-28 2018-06-28 Out[facility] [id number] Common 16:51:00 16:51:[address] [facility] 2018-06-13 2018-06-13 Out[facility] [id number] Common 21:04:00 21:04:[address] [facility] 2018-06-13 2018-06-13 Out[facility] [id number] Common 11:49:00 11:49:[address] [facility] 2018-06-13 2018-06-13 Out[facility] [id number] Common 09:00:00 09:00:[address] [facility] 2018-05-14 2018-05-14 Out[facility] [id number] Common 17:36:00 17:36:[address] [facility] 2018-04-17 2018-04-17 Out[facility] [id number] Common 16:15:00 16:15:[address] [facility] 2018-04-11 2018-04-11 Out[facility] [id number] Common 09:07:00 09:07:[address] [facility] 2018-04-09 2018-04-09 Out[facility] [id number] Common 11:50:00 11:50:[address] [facility] 2018-03-26 2018-03-26 Out[facility] [id number] Common 21:50:00 21:50:[address] [facility] 2018-03-23 2018-03-23 Out[facility] [id number] Common 14:00:00 14:00:[address] [facility] 2018-03-14 2018-03-14 Out[facility] [id number] Common 14:16:00 14:16:[address] [facility] 2018-03-09 2018-03-09 Out[facility] [id number] Common 14:30:00 14:30:[address] [facility] 2018-01-23 2018-01-23 Out[facility] 13 [id number] Common 10:00:00 10:00:[address] [facility] Results Test Description Test Time Test Comments Results Result Comments Source CT/NG, NAAT, URINE 2023-06-29 17:45:34 Test Item Value Reference Range Interpretation Comme nts CHLAMYDIA, NAAT, URINE (test NEGATIVE NEGATIVE Testing is performed with Steve code = 87523) CECILE 6800/880 0 systems usingreal-time polymerase chain reaction (PCR) method. A negative result does not exclude low level infection, spec imensampling error, or collection e rror. GONORRHEA, NAAT, URINE (test NEGATIVE NEGATIVE Testing is performed with Steve code = 12724) CECILE 6800/880 0 systems usingreal-time polymerase chain reaction (PCR) method. A negative result does not exclude low level infection, spec imensampling error, or collection e rror. UNLESS OTHERWISE INDIC ATED, ALL TESTING PERFORMED AT [facility] PATHOLOGY [facility], [place] [id number] FLOOR ASSOCIATE: HELADIO LORD M.D. CLIA NUMBER [id number] CAP ACCREDITATION N O. [id number] VAGINAL PATHOGENS DNA [id number] 16:02:05 Test Item Value Reference Range Interpretation [...] TESTING PERFORM ED AT CLINICAL PATHOL OGY [facility], [place] [address] LABORATORY DIRE CTOR: ANY REARDON M.D. CLIA NUMBER [id number] CAP ACCREDITATION N O. [id number] HIV 1/2 4TH GEN, RFLX [id number] 05:06:39 Test Item Value Reference Range Interpretation Comments HIV 1/2 4TH GEN, RFLX CONF (test NON-REACTIVE NON-REACTIVE code = 3514) RPR REFLEX TO T. PALLIDUM - [id number] 02:51:32 Test Item Value Reference Range Interpretation Comments RPR (test code = 38642) NON-REACTIVE NON-REACTIVE RPR TITER (test code = 3500) NOT INDIC. TITER NOT INDIC. CT/NG, NAAT, [id number] 18:39:31 Test Item Value Reference Range Interpretation Comments CHLAMYDIA, NAAT, NEGATIVE NEGATIVE Testing is performed with URINE (test code Steve CECILE 6800/8800 = 76662) systems usingre al-time polymerase ankita n reaction (PCR) method. A negative result does not exclude low level infection , specimensamplin g error, or collection erro r. GONORRHEA, NAAT, NEGATIVE NEGATIVE Testing is performed with URINE (test code Steve CECILE 6800/8800 = 11859) systems usingre al-time polymerase ankita n reaction (PCR) method. A negative result does not exclude low level infection , specimensamplin g error, or collection erro r. TRICHOMONAS, NAAT, [id number] 18:21:30 Test Item Value Reference Range Interpretation Comments TRICHOMONAS, NEGATIVE NEGATIVE Testing is per formed with NAAT, URINE (test Steve SABIHA S 6800/8800 method code = 98745) usingreal-time polymerase chain reaction (PCR) method. A negative resu lt does not exclude low lev el infection, specimensamplin g error, or collection erro r. UNLESS OTHERWISE INDIC ATED, ALL TESTING PERFORM ED [facility] [place] [address] LABORATORY DIRE CTOR: ANY REARDON M.D. CLIA NUMBER [id number] CAP ACCREDITATION N O. [id number] HIV 1/2 4TH GEN, RFLX [id number] 06:48:28 Test Item Value Reference Range Interpretation Comments HIV 1/2 4TH GEN, RFLX CONF (test NON-REACTIVE NON-REACTIVE code = 3514) HEPATITIS PANEL, [id number] 06:48:28 Test Item Value Reference Range Interpretation Comments HEPATITIS A IgM (test NON-REACTIVE NON-REACTIVE code = 29740) HEPATITIS B CORE IgM NON-REACTIVE NON-REACTIVE (test code = 4644) HEPATITIS B SURF AG NON-REACTIVE NON-REACTIVE (test code = 2739) HEPATITIS C ANTIBODY NON-REACTIVE NON-REACTIVE (test code = 4675) INTERPRETATION (NOTE) Hepatitis A HEPATITIS A: (test code sero logy shows no = 5722) evidence of acu te hepatitis A. INTERPRETATION (NOTE) Hepatitis B HEPATITIS B: (test code sero logy shows no = 15097) evidence of acu te hepatitis B and no indication of exposure to hepatitis B vir us in the previous daisy eight months. INTERPRETATION (NOTE) Hepatitis C HEPATITIS C: (test code sero logy shows no = 17759) evidence of exposure to hepatitisC viru s at this time. I t can take up to 12 months after exposure tothe hepatitis C vir us for antibodies to become detectab le in the blood in certain patient s. [id number] 03:59:34 Test Item Value Reference Range Interpretation Comments RPR RESULT (test code = NON-REACTIVE NON-REACTIVE 3501) RPR TITER (test code = 3500) NOT INDIC. TITER NOT INDIC. POCT [id number] 12:16:00 Test Item Value Reference Range Interpretation Comments POCT PREG (test code = 1605) Negative On board controls acceptable with Yes C Line (test code = 3574) POCT PREG LOT # (test code = 3575) [id number] POCT PREG TEST DATE (test 03/01/24 code = 3576) Lab Interpretation (test code = Normal 38090-6) [facility] [id number] 12:16:00 Test Item Value Reference Range Interpretation Comments POCT PREG (test code = 1605) Negative On board controls acceptable with Yes C Line (test code = 3574) POCT PREG LOT # (test code = 3575) [id number] POCT PREG TEST DATE (test 03/01/24 code = 3576) Lab Interpretation (test code = Normal 92095-9) [facility] [id number] 19:46:00 Test Item Value Reference Range Interpretation Comments POCT PREG (test code = 1605) Negative On board controls acceptable with C Yes Line (test code = 3574) POCT PREG LOT # (test code = 3575) POCT PREG TEST DATE (test code = 3576) [facility] [id number] 19:46:00 Test Item Value Reference Range Interpretation Comments POCT PREG (test code = 1605) Negative On board controls acceptable with C Yes Line (test code = 3574) POCT PREG LOT # (test code = 3575) POCT PREG TEST DATE (test code = 3576) [facility] [id number] 17:08:00 Test Item Value Reference Range Interpretation [...] code = 3257) Negative Negative - Negative [facility] SPECIFIC [id number] 17:08:00 Test Item Value Reference Range Interpretation [...] code = 3257) Negative Negative - Negative [facility]AT, [id number] 20:17:25 Test Item Value Reference Range Interpretation Comments GONORRHEA, NAAT NEGATIVE NEGATIVE Note: Testi ng is (test code = 56711) performe d with Steve CECILE 6800/8800 systems using real-time polymerase ankita n reaction (PCR) method. CHLAMYDIA, NAAT NEGATIVE NEGATIVE Note: Testi ng is (test code = 52083) performe d with Steve CECILE 6800/8800 systems using real-time polymerase ankita n reaction (PCR) method. VAGINAL PATHOGENS DNA [id number] 15:23:23 Test Item Value Reference Range Interpretation [...] ATED, ALL TESTING PERFORM ED [facility] [address] [place] [address] LABORATOR Y DIRECTOR: ODILON MARIANO M.D. CLIA NUMBER [id number] CAP ACCREDITATION N O. [id number] HIV 1/2 4TH GEN, RFLX [id number] 05:39:18 Test Item Value Reference Range Interpretation Comments HIV 1/2 4TH GEN, RFLX CONF (test NON-REACTIVE NON-REACTIVE code = 3514) HEPATITIS PANEL, [id number] 05:39:18 Test Item Value Reference Range Interpretation Comments HEPATITIS A IgM (test NON-REACTIVE NON-REACTIVE code = 96812) HEPATITIS B CORE IgM NON-REACTIVE NON-REACTIVE (test code = 4644) HEPATITIS B SURF AG NON-REACTIVE NON-REACTIVE (test code = 2739) HEPATITIS C ANTIBODY NON-REACTIVE NON-REACTIVE (test code = 4675) INTERPRETATION (NOTE) Hepatitis A HEPATITIS A: (test code sero logy shows no = 2552) evidence of acu te hepatitis A. INTERPRETATION (NOTE) Hepatitis B HEPATITIS B: (test code sero logy shows no = 43696) evidence of acu te hepatitis B and no indication of exposure to hepatitis B vir us in the previous daisy eight months. INTERPRETATION (NOTE) Hepatitis C HEPATITIS C: (test code sero logy shows no = 86264) evidence of exposure to hepatitisC viru s at this time. I t can take up to 12 months after exposure tothe hepatitis C vir us for antibodies to become detectab le in the blood in certain patient s. RPR REFLEX TO T. PALLIDUM - [id number] 04:43:57 Test Item Value Reference Range Interpretation Comments RPR (test code = 60211) NON-REACTIVE NON-REACTIVE RPR TITER (test code = 3500) NOT INDIC. TITER NOT INDIC. RPR REFLEX TO T. PALLIDUM - [id number] 00:00:00 Test Item Value Reference Range Interpretation Comments RPR (test code = 61712) NON-REACTIVE RPR TITER (test code = 3500) NOT INDIC. TITER RPR REFLEX TO T. PALLIDUM - [id number] 00:00:00 Test Item Value Reference Range Interpretation Comments RPR (test code = 71206) NON-REACTIVE RPR TITER (test code = 3500) NOT INDIC. TITER HIV AB/AG COMBO RFLX [id number] 00:00:00 Test Item Value Reference Range Interpretation Comments HIV 1/2 4TH GEN, RFLX CONF (test NON-REACTIVE code = 3514) HIV AB/AG COMBO RFLX [id number] 00:00:00 Test Item Value Reference Range Interpretation Comments HIV 1/2 4TH GEN, RFLX CONF (test NON-REACTIVE code = 3514) ACUTE HEPATITIS [id number] 00:00:00 Test Item Value Reference Range Interpretation Comments HEPATITIS A IgM (test code = NON-REACTIVE 64501) HEPATITIS B CORE IgM (test code NON-REACTIVE = 4644) HEPATITIS B SURF AG (test code = NON-REACTIVE 2739) HEPATITIS C ANTIBODY (test code NON-REACTIVE = 4675) INTERPRETATION HEPATITIS A: (NOTE) (test code = 2552) INTERPRETATION HEPATITIS B: (NOTE) (test code = 60320) INTERPRETATION HEPATITIS C: (NOTE) (test code = 95635) ACUTE HEPATITIS [id number] 00:00:00 Test Item Value Reference Range Interpretation Comments HEPATITIS A IgM (test code = NON-REACTIVE 84383) HEPATITIS B CORE IgM (test code NON-REACTIVE = 4644) HEPATITIS B SURF AG (test code = NON-REACTIVE 2739) HEPATITIS C ANTIBODY (test code NON-REACTIVE = 4675) INTERPRETATION HEPATITIS A: (NOTE) (test code = 2552) INTERPRETATION HEPATITIS B: (NOTE) (test code = 86365) INTERPRETATION HEPATITIS C: (NOTE) (test code = 83134) CT/NG, TMA, [id number] 00:00:00 Test Item Value Reference Range Interpretation Comments GONORRHEA, NAAT (test code = 68626) NEGATIVE CHLAMYDIA, NAAT (test code = 10683) NEGATIVE CT/NG, TMA, [id number] 00:00:00 Test Item Value Reference Range Interpretation Comments GONORRHEA, NAAT (test code = 13207) NEGATIVE CHLAMYDIA, NAAT (test code = 54771) NEGATIVE VAGINAL PATHOGENS DNA [id number] 00:00:00 Test Item Value Reference Range Interpretation Comments RAMESH SPECIES (test code = ) NEGATIVE G. VAGINALIS (test code = 02503) NEGATIVE T. VAGINALIS (test code = ) POSITIVE VAGINAL PATHOGENS DNA [id number] 00:00:00 Test Item Value Reference Range Interpretation Comments RAMESH SPECIES (test code = ) NEGATIVE G. VAGINALIS (test code = ) NEGATIVE T. VAGINALIS (test code = ) POSITIVE CULTURE, [id number] 00:00:00 Test Item Value Reference Range Interpretation Comments CULTURE, URINE (test SPECIMEN NUMBER: code = 73643) [id number] CULTURE, [id number] 00:00:00 Test Item Value Reference Range Interpretation Comments CULTURE, URINE (test SPECIMEN NUMBER: code = 98866) [id number] CULTURE, [id number] 00:00:00 Test Item Value Reference Range Interpretation Comments CULTURE, URINE (test SPECIMEN NUMBER: code = 40538) [id number] CULTURE, [id number] 00:00:00 Test Item Value Reference Range Interpretation Comments CULTURE, URINE (test SPECIMEN NUMBER: code = 57719) [id number] CULTURE, [id number] 00:00:00 Test Item Value Reference Range Interpretation Comments CULTURE, URINE (test SPECIMEN NUMBER: code = 15474) [id number] CULTURE, [id number] 00:00:00 Test Item Value Reference Range Interpretation Comments CULTURE, URINE (test SPECIMEN NUMBER: code = 72165) [id number] CULTURE, [id number] 11:18:54SPECIMEN NUMBER: [id number] CULTURE, URINE SPECIMEN NUMBER: [id number] SPECIMEN COMMENT: URINE SOURCE:URINE REPORT STATUS: FINAL FINAL REPORT: 07/16/2022 10-50,000 CFU/ML UROGENITAL OLEKSANDR PRESENT NO COMM ON PATHOGENSCULTURE, [id number] 00:00:00 Test Item Value Reference Range Interpretation Comments CULTURE, URINE (test SPECIMEN NUMBER: code = 15969) [id number] CULTURE, [id number] 00:00:00 Test Item Value Reference Range Interpretation Comments CULTURE, URINE (test SPECIMEN NUMBER: code = 91329) [id number] CULTURE, [id number] 00:00:00 Test Item Value Reference Range Interpretation Comments CULTURE, URINE (test SPECIMEN NUMBER: code = 65285) [id number] CULTURE, [id number] 00:00:00 Test Item Value Reference Range Interpretation Comments CULTURE, URINE (test SPECIMEN NUMBER: code = 37556) [id number] CULTURE, [id number] 00:00:00 Test Item Value Reference Range Interpretation Comments CULTURE, URINE (test SPECIMEN NUMBER: code = 80123) [id number] CULTURE, [id number] 00:00:00 Test Item Value Reference Range Interpretation Comments CULTURE, URINE (test SPECIMEN NUMBER: code = 35987) [id number] CULTURE, [id number] 00:00:00 Test Item Value Reference Range Interpretation Comments CULTURE, URINE (test SPECIMEN NUMBER: code = 22128) [id number] CULTURE, [id number] 00:00:00 Test Item Value Reference Range Interpretation Comments CULTURE, URINE (test SPECIMEN NUMBER: code = 58295) [id number] CT/NG, NAAT, [id number] 19:32:40 Test Item Value Reference Range Interpretation Comments GONORRHEA, NAAT NEGATIVE NEGATIVE IMPORTA NT NOTICE: SEE (test code = [place] [address]) [email or web address]/Parish PowerReviewsKit Note: Assay methodology is nucleic acid amplification b y assistance coordinator m ediated amplification ( TMA) utilizing the A ptima Combo 2 Assay. CHLAMYDIA, NAAT NEGATIVE NEGATIVE IMPORTA NT NOTICE: SEE (test code = [place] [address]) [email or web address] Solutions/Parish Cardiovascular Provider Resource HoldingssUGlobalPrint SystemsKit Note: Assay methodology is nucleic acid amplification b y assistance coordinator m ediated amplification ( TMA) utilizing the A ptima Combo 2 Assay. VAGINAL PATHOGENS DNA [id number] 15:57:03 Test Item Value Reference Range Interpretation Comments RAMESH SPECIES (test NEGATIVE NEGATIVE code = ) G. VAGINALIS (test POSITIVE NEGATIVE A code = ) T. VAGINALIS (test POSITIVE NEGATIVE A UNLESS O THERWISE code = ) INDICATED, ALL TESTING PERFORMED [facility] PATHOLOGY [facility] [employer] [address] [place] [address] 4 LABORATORY DIRE CTOR: ODILON MARIANO M.D. [facility] NUMBER [id number] [place] [id number] 04:58:02 Test Item Value Reference Range Interpretation Comments RPR RESULT (test code = NON-REACTIVE NON-REACTIVE 3501) RPR TITER (test code = 3500) NOT INDIC. TITER NOT INDIC. HIV 1/2 4TH GEN, RFLX [id number] 03:09:22 Test Item Value Reference Range Interpretation Comments HIV 1/2 4TH GEN, RFLX CONF (test NON-REACTIVE NON-REACTIVE code = 3514) HEPATITIS PANEL, [id number] 03:09:22 Test Item Value Reference Range Interpretation Comments HEPATITIS A IgM (test NON-REACTIVE NON-REACTIVE code = 87542) HEPATITIS B CORE IgM NON-REACTIVE NON-REACTIVE (test code = 4644) HEPATITIS B SURF AG NON-REACTIVE NON-REACTIVE (test code = 2739) HEPATITIS C ANTIBODY NON-REACTIVE NON-REACTIVE (test code = 4675) INTERPRETATION (NOTE) Hepatitis A HEPATITIS A: (test code sero logy shows no = 2552) evidence of acu te hepatitis A. INTERPRETATION (NOTE) Hepatitis B HEPATITIS B: (test code sero logy shows no = 04574) evidence of acu te hepatitis B and no indication of exposure to hepatitis B vir us in the previous daisy eight months. INTERPRETATION (NOTE) Hepatitis C HEPATITIS C: (test code sero logy shows no = 65869) evidence of exposure to hepatitisC viru s at this time. I t can take up to 12 months after exposure tothe hepatitis C vir us for antibodies to become detectab le in the blood in certain patient s. HIV 1/2 4TH GEN, RFLX [id number] 00:00:00 Test Item Value Reference Range Interpretation Comments HIV 1/2 4TH GEN, RFLX CONF (test NON-REACTIVE code = 3514) HIV 1/2 4TH GEN, RFLX [id number] 00:00:00 Test Item Value Reference Range Interpretation Comments HIV 1/2 4TH GEN, RFLX CONF (test NON-REACTIVE code = 3514) CT/NG, TMA, [id number] 00:00:00 Test Item Value Reference Range Interpretation Comments GONORRHEA, NAAT (test code = 05661) NEGATIVE CHLAMYDIA, NAAT (test code = 57498) NEGATIVE CT/NG, TMA, [id number] 00:00:00 Test Item Value Reference Range Interpretation Comments GONORRHEA, NAAT (test code = 95114) NEGATIVE CHLAMYDIA, NAAT (test code = 21053) NEGATIVE [id number] 00:00:00 Test Item Value Reference Range Interpretation Comments RPR RESULT (test code = NON-REACTIVE 3501) RPR TITER (test code = 3500) NOT INDIC. TITER [id number] 00:00:00 Test Item Value Reference Range Interpretation Comments RPR RESULT (test code = NON-REACTIVE 3501) RPR TITER (test code = 3500) NOT INDIC. TITER [id number] 00:00:00 Test Item Value Reference Range Interpretation Comments RPR RESULT (test code = NON-REACTIVE 3501) RPR TITER (test code = 3500) NOT INDIC. TITER ACUTE HEPATITIS [id number] 00:00:00 Test Item Value Reference Range Interpretation Comments HEPATITIS A IgM (test code = NON-REACTIVE 96275) HEPATITIS B CORE IgM (test code NON-REACTIVE = 4644) HEPATITIS B SURF AG (test code = NON-REACTIVE 2739) HEPATITIS C ANTIBODY (test code NON-REACTIVE = 4675) INTERPRETATION HEPATITIS A: (NOTE) (test code = 2552) INTERPRETATION HEPATITIS B: (NOTE) (test code = 56466) INTERPRETATION HEPATITIS C: (NOTE) (test code = 29593) ACUTE HEPATITIS [id number] 00:00:00 Test Item Value Reference Range Interpretation Comments HEPATITIS A IgM (test code = NON-REACTIVE 75905) HEPATITIS B CORE IgM (test code NON-REACTIVE = 4644) HEPATITIS B SURF AG (test code = NON-REACTIVE 2739) HEPATITIS C ANTIBODY (test code NON-REACTIVE = 4675) INTERPRETATION HEPATITIS A: (NOTE) (test code = 2552) INTERPRETATION HEPATITIS B: (NOTE) (test code = 94441) INTERPRETATION HEPATITIS C: (NOTE) (test code = 93077) VAGINAL PATHOGENS DNA [id number] 00:00:00 Test Item Value Reference Range Interpretation Comments RAMESH SPECIES (test code = 06603) NEGATIVE G. VAGINALIS (test code = 37567) POSITIVE T. VAGINALIS (test code = 79446) POSITIVE VAGINAL PATHOGENS DNA [id number] 00:00:00 Test Item Value Reference Range Interpretation Comments RAMESH SPECIES (test code = 55872) NEGATIVE G. VAGINALIS (test code = 44050) POSITIVE T. VAGINALIS (test code = 41522) POSITIVE HIV 1/2 4TH GEN, RFLX [id number] 00:00:00 Test Item Value Reference Range Interpretation Comments HIV 1/2 4TH GEN, RFLX CONF (test NON-REACTIVE code = 3514) HIV 1/2 4TH GEN, RFLX [id number] 00:00:00 Test Item Value Reference Range Interpretation Comments HIV 1/2 4TH GEN, RFLX CONF (test NON-REACTIVE code = 3514) CT/NG, TMA, [id number] 00:00:00 Test Item Value Reference Range Interpretation Comments GONORRHEA, NAAT (test code = 21671) NEGATIVE CHLAMYDIA, NAAT (test code = 65083) NEGATIVE CT/NG, TMA, [id number] 00:00:00 Test Item Value Reference Range Interpretation Comments GONORRHEA, NAAT (test code = 41630) NEGATIVE CHLAMYDIA, NAAT (test code = 34740) NEGATIVE [id number] 00:00:00 Test Item Value Reference Range Interpretation Comments RPR RESULT (test code = NON-REACTIVE 3501) RPR TITER (test code = 3500) NOT INDIC. TITER [id number] 00:00:00 Test Item Value Reference Range Interpretation Comments RPR RESULT (test code = NON-REACTIVE 3501) RPR TITER (test code = 3500) NOT INDIC. TITER [id number] 00:00:00 Test Item Value Reference Range Interpretation Comments RPR RESULT (test code = NON-REACTIVE 3501) RPR TITER (test code = 3500) NOT INDIC. TITER ACUTE HEPATITIS [id number] 00:00:00 Test Item Value Reference Range Interpretation Comments HEPATITIS A IgM (test code = NON-REACTIVE 29840) HEPATITIS B CORE IgM (test code NON-REACTIVE = 4644) HEPATITIS B SURF AG (test code = NON-REACTIVE 2739) HEPATITIS C ANTIBODY (test code NON-REACTIVE = 3175) INTERPRETATION HEPATITIS A: (NOTE) (test code = 2552) INTERPRETATION HEPATITIS B: (NOTE) (test code = 47357) INTERPRETATION HEPATITIS C: (NOTE) (test code = 38048) ACUTE HEPATITIS [id number] 00:00:00 Test Item Value Reference Range Interpretation Comments HEPATITIS A IgM (test code = NON-REACTIVE 10288) HEPATITIS B CORE IgM (test code NON-REACTIVE = 4644) HEPATITIS B SURF AG (test code = NON-REACTIVE 2739) HEPATITIS C ANTIBODY (test code NON-REACTIVE = 4675) INTERPRETATION HEPATITIS A: (NOTE) (test code = 2552) INTERPRETATION HEPATITIS B: (NOTE) (test code = 66026) INTERPRETATION HEPATITIS C: (NOTE) (test code = 96914) VAGINAL PATHOGENS DNA [id number] 00:00:00 Test Item Value Reference Range Interpretation Comments RAMESH SPECIES (test code = ) NEGATIVE G. VAGINALIS (test code = 16328) POSITIVE T. VAGINALIS (test code = 70155) POSITIVE VAGINAL PATHOGENS DNA [id number] 00:00:00 Test Item Value Reference Range Interpretation Comments RAMESH SPECIES (test code = ) NEGATIVE G. VAGINALIS (test code = ) POSITIVE T. VAGINALIS (test code = ) POSITIVE HIV 1/2 4TH GEN, RFLX [id number] 00:00:00 Test Item Value Reference Range Interpretation Comments HIV 1/2 4TH GEN, RFLX CONF (test NON-REACTIVE code = 3514) HIV 1/2 4TH GEN, RFLX [id number] 00:00:00 Test Item Value Reference Range Interpretation Comments HIV 1/2 4TH GEN, RFLX CONF (test NON-REACTIVE code = 3514) CT/NG, TMA, [id number] 00:00:00 Test Item Value Reference Range Interpretation Comments GONORRHEA, NAAT (test code = 22324) NEGATIVE CHLAMYDIA, NAAT (test code = 81200) NEGATIVE CT/NG, TMA, [id number] 00:00:00 Test Item Value Reference Range Interpretation Comments GONORRHEA, NAAT (test code = 29305) NEGATIVE CHLAMYDIA, NAAT (test code = 86655) NEGATIVE [id number] 00:00:00 Test Item Value Reference Range Interpretation Comments RPR RESULT (test code = NON-REACTIVE 3501) RPR TITER (test code = 3500) NOT INDIC. TITER [id number] 00:00:00 Test Item Value Reference Range Interpretation Comments RPR RESULT (test code = NON-REACTIVE 3501) RPR TITER (test code = 3500) NOT INDIC. TITER [id number] 00:00:00 Test Item Value Reference Range Interpretation Comments RPR RESULT (test code = NON-REACTIVE 3501) RPR TITER (test code = 3500) NOT INDIC. TITER ACUTE HEPATITIS [id number] 00:00:00 Test Item Value Reference Range Interpretation Comments HEPATITIS A IgM (test code = NON-REACTIVE 56552) HEPATITIS B CORE IgM (test code NON-REACTIVE = 4644) HEPATITIS B SURF AG (test code = NON-REACTIVE 2739) HEPATITIS C ANTIBODY (test code NON-REACTIVE = 4675) INTERPRETATION HEPATITIS A: (NOTE) (test code = 2552) INTERPRETATION HEPATITIS B: (NOTE) (test code = 40225) INTERPRETATION HEPATITIS C: (NOTE) (test code = 42024) ACUTE HEPATITIS [id number] 00:00:00 Test Item Value Reference Range Interpretation Comments HEPATITIS A IgM (test code = NON-REACTIVE 52107) HEPATITIS B CORE IgM (test code NON-REACTIVE = 4644) HEPATITIS B SURF AG (test code = NON-REACTIVE 2739) HEPATITIS C ANTIBODY (test code NON-REACTIVE = 4675) INTERPRETATION HEPATITIS A: (NOTE) (test code = 2552) INTERPRETATION HEPATITIS B: (NOTE) (test code = 42681) INTERPRETATION HEPATITIS C: (NOTE) (test code = 00011) VAGINAL PATHOGENS DNA [id number] 00:00:00 Test Item Value Reference Range Interpretation Comments RAMESH SPECIES (test code = ) NEGATIVE G. VAGINALIS (test code = 88722) POSITIVE T. VAGINALIS (test code = 53812) POSITIVE VAGINAL PATHOGENS DNA [id number] 00:00:00 Test Item Value Reference Range Interpretation Comments RAMESH SPECIES (test code = 21182) NEGATIVE G. VAGINALIS (test code = 41891) POSITIVE T. VAGINALIS (test code = 50265) POSITIVE HIV 1/2 4TH GEN, RFLX [id number] 00:00:00 Test Item Value Reference Range Interpretation Comments HIV 1/2 4TH GEN, RFLX CONF (test NON-REACTIVE code = 3514) HIV 1/2 4TH GEN, RFLX [id number] 00:00:00 Test Item Value Reference Range Interpretation Comments HIV 1/2 4TH GEN, RFLX CONF (test NON-REACTIVE code = 3514) CT/NG, TMA, [id number] 00:00:00 Test Item Value Reference Range Interpretation Comments GONORRHEA, NAAT (test code = 52743) NEGATIVE CHLAMYDIA, NAAT (test code = 76026) NEGATIVE CT/NG, TMA, [id number] 00:00:00 Test Item Value Reference Range Interpretation Comments GONORRHEA, NAAT (test code = 87657) NEGATIVE CHLAMYDIA, NAAT (test code = 07150) NEGATIVE [id number] 00:00:00 Test Item Value Reference Range Interpretation Comments RPR RESULT (test code = NON-REACTIVE 3501) RPR TITER (test code = 3500) NOT INDIC. TITER [id number] 00:00:00 Test Item Value Reference Range Interpretation Comments RPR RESULT (test code = NON-REACTIVE 3501) RPR TITER (test code = 3500) NOT INDIC. TITER [id number] 00:00:00 Test Item Value Reference Range Interpretation Comments RPR RESULT (test code = NON-REACTIVE 3501) RPR TITER (test code = 3500) NOT INDIC. TITER ACUTE HEPATITIS [id number] 00:00:00 Test Item Value Reference Range Interpretation Comments HEPATITIS A IgM (test code = NON-REACTIVE 76966) HEPATITIS B CORE IgM (test code NON-REACTIVE = 4644) HEPATITIS B SURF AG (test code = NON-REACTIVE 2739) HEPATITIS C ANTIBODY (test code NON-REACTIVE = 4675) INTERPRETATION HEPATITIS A: (NOTE) (test code = 2552) INTERPRETATION HEPATITIS B: (NOTE) (test code = 96962) INTERPRETATION HEPATITIS C: (NOTE) (test code = 70596) ACUTE HEPATITIS [id number] 00:00:00 Test Item Value Reference Range Interpretation Comments HEPATITIS A IgM (test code = NON-REACTIVE 31405) HEPATITIS B CORE IgM (test code NON-REACTIVE = 4644) HEPATITIS B SURF AG (test code = NON-REACTIVE 2739) HEPATITIS C ANTIBODY (test code NON-REACTIVE = 4675) INTERPRETATION HEPATITIS A: (NOTE) (test code = 2552) INTERPRETATION HEPATITIS B: (NOTE) (test code = 50720) INTERPRETATION HEPATITIS C: (NOTE) (test code = 87022) VAGINAL PATHOGENS DNA [id number] 00:00:00 Test Item Value Reference Range Interpretation Comments RAMESH SPECIES (test code = ) NEGATIVE G. VAGINALIS (test code = ) POSITIVE T. VAGINALIS (test code = ) POSITIVE VAGINAL PATHOGENS DNA [id number] 00:00:00 Test Item Value Reference Range Interpretation Comments RAMESH SPECIES (test code = ) NEGATIVE G. VAGINALIS (test code = ) POSITIVE T. VAGINALIS (test code = 78180) POSITIVE TSH, THIRD [id number] 06:51:11 Test Item Value Reference Range Interpretation Comments TSH, THIRD GENERATION (test code 0.937 UIU/ML 0.400-4.100 = 2821) HEMOGLOBIN [id number] 05:51:57 Test Item Value Reference Range Interpretation Comments HEMOGLOBIN A1c (test code = 89085) 5.6 % 4.2-5.6 COMPREHENSIVE METABOLIC [id number] 04:57:05 Test Item Value Reference Range Interpretation Comments GLUCOSE (test code = 105 MG/DL 70-99 H 2216) BUN (test code = 12 MG/DL 6-20 2207) CREATININE (test 0.70 MG/DL 0.60-1.30 code = 2214) eGFR (2020 CKD-EPI) 111 >60 (test code = 97509) ML/MIN/1.73 CALC BUN/CREAT (test 17 RATIO 6-28 code = 2235) SODIUM (test code = 138 MEQ/L 871-285 3504) POTASSIUM (test code 4.1 MEQ/L 3.5-5.4 = [...] code = 17 U/L 5-40 2218) LIPID [id number] 04:57:05 Test Item Value Reference Range Interpretation [...] MOREINFORMATION , SEE CLIENT ANNOUNCE MENT AT [email or web address] RISK RATIO LDL/HDL 2.26 RATIO <3.22 (test code = 2237) CBC W/AUTO DIFF WITH [id number] 03:43:22 Test Item Value Reference Range Interpretation [...] message] code = 1065) WBC'S The system [employer] generated this result transmitted ref erence range: [...] 0.00-0.11 UNLESS O THERWISE (test code = 46758) INDICATE D, ALL TESTING PERFORM [facility] [address] [place] [id number] [place] [address] DIRECTOR: ODILON SUMMERS M.D. CLIA NUMBER [id number] CAP ACCREDITATION N O. [id number] COMPREHENSIVE METABOLIC [id number] 00:00:00 Test Item Value Reference Range Interpretation Comments GLUCOSE (test code = 2217) 105 MG/DL BUN (test code = 2208) 12 MG/DL CREATININE (test code = 2214) 0.70 MG/DL eGFR (2020 CKD-EPI) (test 111 ML/MIN/1.73 code = 61978) CALC BUN/CREAT (test code = 17 RATIO [...] code = 2219) 17 U/L COMPREHENSIVE METABOLIC [id number] 00:00:00 Test Item Value Reference Range Interpretation Comments GLUCOSE (test code = 2217) 105 MG/DL BUN (test code = 2208) 12 MG/DL CREATININE (test code = 2214) 0.70 MG/DL eGFR (2020 CKD-EPI) (test 111 ML/MIN/1.73 code = 32419) CALC BUN/CREAT (test code = 17 RATIO [...] (test code = 2219) 17 U/L LIPID [id number] 00:00:00 Test Item Value Reference Range Interpretation Comments CHOLESTEROL (test code = 2210) 249 MG/DL TRIGLYCERIDES (test code = 2232) 97 MG/DL HDL CHOLESTEROL (test code = 2220) 70 MG/DL CALC LDL CHOL (test code = 2237) 158 MG/DL RISK RATIO LDL/HDL (test code = 2.26 RATIO 2238) LIPID [id number] 00:00:00 Test Item Value Reference Range Interpretation Comments CHOLESTEROL (test code = 2210) 249 MG/DL TRIGLYCERIDES (test code = 2232) 97 MG/DL HDL CHOLESTEROL (test code = 2220) 70 MG/DL CALC LDL CHOL (test code = 2237) 158 MG/DL RISK RATIO LDL/HDL (test code = 2.26 RATIO 2238) HEMOGLOBIN [id number] 00:00:00 Test Item Value Reference Range Interpretation Comments HEMOGLOBIN A1c (test code = 62885) 5.6 % HEMOGLOBIN [id number] 00:00:00 Test Item Value Reference Range Interpretation Comments HEMOGLOBIN A1c (test code = 94699) 5.6 % HEMOGLOBIN [id number] 00:00:00 Test Item Value Reference Range Interpretation Comments HEMOGLOBIN A1c (test code = 76905) 5.6 % TSH, THIRD [id number] 00:00:00 Test Item Value Reference Range Interpretation Comments TSH, THIRD GENERATION (test code 0.937 UIU/ML = 2821) TSH, THIRD [id number] 00:00:00 Test Item Value Reference Range Interpretation Comments TSH, THIRD GENERATION (test code 0.937 UIU/ML = 2821) TSH, THIRD [id number] 00:00:00 Test Item Value Reference Range Interpretation Comments TSH, THIRD GENERATION (test code 0.937 UIU/ML = 2821) CBC W/AUTO [id number] 00:00:00 Test Item Value Reference Range Interpretation [...] NUCLEATED RBCS (test code = 0.00 K/UL 37512) CBC W/AUTO [id number] 00:00:00 Test Item Value Reference Range Interpretation [...] NUCLEATED RBCS (test code = 0.00 K/UL 83443) CBC W/AUTO [id number] 00:00:00 Test Item Value Reference Range Interpretation [...] NUCLEATED RBCS (test code = 0.00 K/UL 49668) COMPREHENSIVE METABOLIC [id number] 00:00:00 Test Item Value Reference Range Interpretation Comments GLUCOSE (test code = 2217) 105 MG/DL BUN (test code = 2208) 12 MG/DL CREATININE (test code = 2214) 0.70 MG/DL eGFR (2020 CKD-EPI) (test 111 ML/MIN/1.73 code = 88326) CALC BUN/CREAT (test code = 17 RATIO [...] code = 2219) 17 U/L COMPREHENSIVE METABOLIC [id number] 00:00:00 Test Item Value Reference Range Interpretation Comments GLUCOSE (test code = 2217) 105 MG/DL BUN (test code = 2208) 12 MG/DL CREATININE (test code = 2214) 0.70 MG/DL eGFR (2020 CKD-EPI) (test 111 ML/MIN/1.73 code = 97057) CALC BUN/CREAT (test code = 17 RATIO [...] (test code = 2219) 17 U/L LIPID [id number] 00:00:00 Test Item Value Reference Range Interpretation Comments CHOLESTEROL (test code = 2210) 249 MG/DL TRIGLYCERIDES (test code = 2232) 97 MG/DL HDL CHOLESTEROL (test code = 2220) 70 MG/DL CALC LDL CHOL (test code = 2237) 158 MG/DL RISK RATIO LDL/HDL (test code = 2.26 RATIO 2238) LIPID [id number] 00:00:00 Test Item Value Reference Range Interpretation Comments CHOLESTEROL (test code = 2210) 249 MG/DL TRIGLYCERIDES (test code = 2232) 97 MG/DL HDL CHOLESTEROL (test code = 2220) 70 MG/DL CALC LDL CHOL (test code = 2237) 158 MG/DL RISK RATIO LDL/HDL (test code = 2.26 RATIO 2238) HEMOGLOBIN [id number] 00:00:00 Test Item Value Reference Range Interpretation Comments HEMOGLOBIN A1c (test code = 07364) 5.6 % HEMOGLOBIN [id number] 00:00:00 Test Item Value Reference Range Interpretation Comments HEMOGLOBIN A1c (test code = 02461) 5.6 % HEMOGLOBIN [id number] 00:00:00 Test Item Value Reference Range Interpretation Comments HEMOGLOBIN A1c (test code = 63530) 5.6 % TSH, THIRD [id number] 00:00:00 Test Item Value Reference Range Interpretation Comments TSH, THIRD GENERATION (test code 0.937 UIU/ML = 2821) TSH, THIRD [id number] 00:00:00 Test Item Value Reference Range Interpretation Comments TSH, THIRD GENERATION (test code 0.937 UIU/ML = 2821) TSH, THIRD [id number] 00:00:00 Test Item Value Reference Range Interpretation Comments TSH, THIRD GENERATION (test code 0.937 UIU/ML = 2821) CBC W/AUTO [id number] 00:00:00 Test Item Value Reference Range Interpretation [...] NUCLEATED RBCS (test code = 0.00 K/UL 04871) CBC W/AUTO [id number] 00:00:00 Test Item Value Reference Range Interpretation [...] NUCLEATED RBCS (test code = 0.00 K/UL 16839) CBC W/AUTO [id number] 00:00:00 Test Item Value Reference Range Interpretation [...] NUCLEATED RBCS (test code = 0.00 K/UL 32211) COMPREHENSIVE METABOLIC [id number] 00:00:00 Test Item Value Reference Range Interpretation Comments GLUCOSE (test code = 2217) 105 MG/DL BUN (test code = 2208) 12 MG/DL CREATININE (test code = 2214) 0.70 MG/DL eGFR (2020 CKD-EPI) (test 111 ML/MIN/1.73 code = 63086) CALC BUN/CREAT (test code = 17 RATIO [...] code = 2219) 17 U/L COMPREHENSIVE METABOLIC [id number] 00:00:00 Test Item Value Reference Range Interpretation Comments GLUCOSE (test code = 2217) 105 MG/DL BUN (test code = 2208) 12 MG/DL CREATININE (test code = 2214) 0.70 MG/DL eGFR (2020 CKD-EPI) (test 111 ML/MIN/1.73 code = 52332) CALC BUN/CREAT (test code = 17 RATIO [...] (test code = 2219) 17 U/L LIPID [id number] 00:00:00 Test Item Value Reference Range Interpretation Comments CHOLESTEROL (test code = 2210) 249 MG/DL TRIGLYCERIDES (test code = 2232) 97 MG/DL HDL CHOLESTEROL (test code = 2220) 70 MG/DL CALC LDL CHOL (test code = 2237) 158 MG/DL RISK RATIO LDL/HDL (test code = 2.26 RATIO 2238) LIPID [id number] 00:00:00 Test Item Value Reference Range Interpretation Comments CHOLESTEROL (test code = 2210) 249 MG/DL TRIGLYCERIDES (test code = 2232) 97 MG/DL HDL CHOLESTEROL (test code = 2220) 70 MG/DL CALC LDL CHOL (test code = 2237) 158 MG/DL RISK RATIO LDL/HDL (test code = 2.26 RATIO 2238) HEMOGLOBIN [id number] 00:00:00 Test Item Value Reference Range Interpretation Comments HEMOGLOBIN A1c (test code = 23117) 5.6 % HEMOGLOBIN [id number] 00:00:00 Test Item Value Reference Range Interpretation Comments HEMOGLOBIN A1c (test code = 65938) 5.6 % HEMOGLOBIN [id number] 00:00:00 Test Item Value Reference Range Interpretation Comments HEMOGLOBIN A1c (test code = 58298) 5.6 % TSH, THIRD [id number] 00:00:00 Test Item Value Reference Range Interpretation Comments TSH, THIRD GENERATION (test code 0.937 UIU/ML = 2821) TSH, THIRD [id number] 00:00:00 Test Item Value Reference Range Interpretation Comments TSH, THIRD GENERATION (test code 0.937 UIU/ML = 2821) TSH, THIRD [id number] 00:00:00 Test Item Value Reference Range Interpretation Comments TSH, THIRD GENERATION (test code 0.937 UIU/ML = 2821) CBC W/AUTO [id number] 00:00:00 Test Item Value Reference Range Interpretation [...] NUCLEATED RBCS (test code = 0.00 K/UL 94636) CBC W/AUTO [id number] 00:00:00 Test Item Value Reference Range Interpretation [...] NUCLEATED RBCS (test code = 0.00 K/UL 48280) CBC W/AUTO [id number] 00:00:00 Test Item Value Reference Range Interpretation [...] NUCLEATED RBCS (test code = 0.00 K/UL 45885) COMPREHENSIVE METABOLIC [id number] 00:00:00 Test Item Value Reference Range Interpretation Comments GLUCOSE (test code = 2217) 105 MG/DL BUN (test code = 2208) 12 MG/DL CREATININE (test code = 2214) 0.70 MG/DL eGFR (2020 CKD-EPI) (test 111 ML/MIN/1.73 code = 51700) CALC BUN/CREAT (test code = 17 RATIO [...] code = 2219) 17 U/L COMPREHENSIVE METABOLIC [id number] 00:00:00 Test Item Value Reference Range Interpretation Comments GLUCOSE (test code = 2217) 105 MG/DL BUN (test code = 2208) 12 MG/DL CREATININE (test code = 2214) 0.70 MG/DL eGFR (2020 CKD-EPI) (test 111 ML/MIN/1.73 code = 55569) CALC BUN/CREAT (test code = 17 RATIO [...] (test code = 2219) 17 U/L LIPID [id number] 00:00:00 Test Item Value Reference Range Interpretation Comments CHOLESTEROL (test code = 2210) 249 MG/DL TRIGLYCERIDES (test code = 2232) 97 MG/DL HDL CHOLESTEROL (test code = 2220) 70 MG/DL CALC LDL CHOL (test code = 2237) 158 MG/DL RISK RATIO LDL/HDL (test code = 2.26 RATIO 2238) LIPID [id number] 00:00:00 Test Item Value Reference Range Interpretation Comments CHOLESTEROL (test code = 2210) 249 MG/DL TRIGLYCERIDES (test code = 2232) 97 MG/DL HDL CHOLESTEROL (test code = 2220) 70 MG/DL CALC LDL CHOL (test code = 2237) 158 MG/DL RISK RATIO LDL/HDL (test code = 2.26 RATIO 2238) HEMOGLOBIN [id number] 00:00:00 Test Item Value Reference Range Interpretation Comments HEMOGLOBIN A1c (test code = 29790) 5.6 % HEMOGLOBIN [id number] 00:00:00 Test Item Value Reference Range Interpretation Comments HEMOGLOBIN A1c (test code = 44534) 5.6 % HEMOGLOBIN [id number] 00:00:00 Test Item Value Reference Range Interpretation Comments HEMOGLOBIN A1c (test code = 62358) 5.6 % TSH, THIRD [id number] 00:00:00 Test Item Value Reference Range Interpretation Comments TSH, THIRD GENERATION (test code 0.937 UIU/ML = 2821) TSH, THIRD [id number] 00:00:00 Test Item Value Reference Range Interpretation Comments TSH, THIRD GENERATION (test code 0.937 UIU/ML = 2821) TSH, THIRD [id number] 00:00:00 Test Item Value Reference Range Interpretation Comments TSH, THIRD GENERATION (test code 0.937 UIU/ML = 2821) CBC W/AUTO [id number] 00:00:00 Test Item Value Reference Range Interpretation [...] NUCLEATED RBCS (test code = 0.00 K/UL 07671) CBC W/AUTO [id number] 00:00:00 Test Item Value Reference Range Interpretation [...] NUCLEATED RBCS (test code = 0.00 K/UL 91506) CBC W/AUTO [id number] 00:00:00 Test Item Value Reference Range Interpretation [...] NUCLEATED RBCS (test code = 0.00 K/UL 18815) COMPREHENSIVE METABOLIC [id number] 00:00:00 Test Item Value Reference Range Interpretation Comments GLUCOSE (test code = 2217) 105 MG/DL BUN (test code = 2208) 12 MG/DL CREATININE (test code = 2214) 0.70 MG/DL eGFR (2020 CKD-EPI) (test 111 ML/MIN/1.73 code = 01648) CALC BUN/CREAT (test code = 17 RATIO [...] code = 2219) 17 U/L COMPREHENSIVE METABOLIC [id number] 00:00:00 Test Item Value Reference Range Interpretation Comments GLUCOSE (test code = 2217) 105 MG/DL BUN (test code = 2208) 12 MG/DL CREATININE (test code = 2214) 0.70 MG/DL eGFR (2020 CKD-EPI) (test 111 ML/MIN/1.73 code = 10716) CALC BUN/CREAT (test code = 17 RATIO [...] (test code = 2219) 17 U/L LIPID [id number] 00:00:00 Test Item Value Reference Range Interpretation Comments CHOLESTEROL (test code = 2210) 249 MG/DL TRIGLYCERIDES (test code = 2232) 97 MG/DL HDL CHOLESTEROL (test code = 2220) 70 MG/DL CALC LDL CHOL (test code = 2237) 158 MG/DL RISK RATIO LDL/HDL (test code = 2.26 RATIO 2238) LIPID [id number] 00:00:00 Test Item Value Reference Range Interpretation Comments CHOLESTEROL (test code = 2210) 249 MG/DL TRIGLYCERIDES (test code = 2232) 97 MG/DL HDL CHOLESTEROL (test code = 2220) 70 MG/DL CALC LDL CHOL (test code = 2237) 158 MG/DL RISK RATIO LDL/HDL (test code = 2.26 RATIO 2238) HEMOGLOBIN [id number] 00:00:00 Test Item Value Reference Range Interpretation Comments HEMOGLOBIN A1c (test code = 91924) 5.6 % HEMOGLOBIN [id number] 00:00:00 Test Item Value Reference Range Interpretation Comments HEMOGLOBIN A1c (test code = 45361) 5.6 % HEMOGLOBIN [id number] 00:00:00 Test Item Value Reference Range Interpretation Comments HEMOGLOBIN A1c (test code = 12757) 5.6 % TSH, THIRD [id number] 00:00:00 Test Item Value Reference Range Interpretation Comments TSH, THIRD GENERATION (test code 0.937 UIU/ML = 2821) TSH, THIRD [id number] 00:00:00 Test Item Value Reference Range Interpretation Comments TSH, THIRD GENERATION (test code 0.937 UIU/ML = 2821) TSH, THIRD [id number] 00:00:00 Test Item Value Reference Range Interpretation Comments TSH, THIRD GENERATION (test code 0.937 UIU/ML = 2821) CBC W/AUTO [id number] 00:00:00 Test Item Value Reference Range Interpretation [...] NUCLEATED RBCS (test code = 0.00 K/UL 53971) CBC W/AUTO [id number] 00:00:00 Test Item Value Reference Range Interpretation [...] NUCLEATED RBCS (test code = 0.00 K/UL 84897) CBC W/AUTO [id number] 00:00:00 Test Item Value Reference Range Interpretation [...] NUCLEATED RBCS (test code = 0.00 K/UL 03438) COMPREHENSIVE METABOLIC [id number] 00:00:00 Test Item Value Reference Range Interpretation Comments GLUCOSE (test code = 2217) 105 MG/DL BUN (test code = 2208) 12 MG/DL CREATININE (test code = 2214) 0.70 MG/DL eGFR (2020 CKD-EPI) (test 111 ML/MIN/1.73 code = 66347) CALC BUN/CREAT (test code = 17 RATIO [...] code = 2219) 17 U/L COMPREHENSIVE METABOLIC [id number] 00:00:00 Test Item Value Reference Range Interpretation Comments GLUCOSE (test code = 2217) 105 MG/DL BUN (test code = 2208) 12 MG/DL CREATININE (test code = 2214) 0.70 MG/DL eGFR (2020 CKD-EPI) (test 111 ML/MIN/1.73 code = 02544) CALC BUN/CREAT (test code = 17 RATIO [...] (test code = 2219) 17 U/L LIPID [id number] 00:00:00 Test Item Value Reference Range Interpretation Comments CHOLESTEROL (test code = 2210) 249 MG/DL TRIGLYCERIDES (test code = 2232) 97 MG/DL HDL CHOLESTEROL (test code = 2220) 70 MG/DL CALC LDL CHOL (test code = 2237) 158 MG/DL RISK RATIO LDL/HDL (test code = 2.26 RATIO 2238) LIPID [id number] 00:00:00 Test Item Value Reference Range Interpretation Comments CHOLESTEROL (test code = 2210) 249 MG/DL TRIGLYCERIDES (test code = 2232) 97 MG/DL HDL CHOLESTEROL (test code = 2220) 70 MG/DL CALC LDL CHOL (test code = 2237) 158 MG/DL RISK RATIO LDL/HDL (test code = 2.26 RATIO 2238) HEMOGLOBIN [id number] 00:00:00 Test Item Value Reference Range Interpretation Comments HEMOGLOBIN A1c (test code = 49867) 5.6 % HEMOGLOBIN [id number] 00:00:00 Test Item Value Reference Range Interpretation Comments HEMOGLOBIN A1c (test code = 61009) 5.6 % HEMOGLOBIN [id number] 00:00:00 Test Item Value Reference Range Interpretation Comments HEMOGLOBIN A1c (test code = 09520) 5.6 % TSH, THIRD [id number] 00:00:00 Test Item Value Reference Range Interpretation Comments TSH, THIRD GENERATION (test code 0.937 UIU/ML = 2821) TSH, THIRD [id number] 00:00:00 Test Item Value Reference Range Interpretation Comments TSH, THIRD GENERATION (test code 0.937 UIU/ML = 2821) TSH, THIRD [id number] 00:00:00 Test Item Value Reference Range Interpretation Comments TSH, THIRD GENERATION (test code 0.937 UIU/ML = 2821) CBC W/AUTO [id number] 00:00:00 Test Item Value Reference Range Interpretation [...] NUCLEATED RBCS (test code = 0.00 K/UL 26051) CBC W/AUTO [id number] 00:00:00 Test Item Value Reference Range Interpretation [...] NUCLEATED RBCS (test code = 0.00 K/UL 58248) CBC W/AUTO [id number] 00:00:00 Test Item Value Reference Range Interpretation [...] NUCLEATED RBCS (test code = 0.00 K/UL 56046) CULTURE, [id number] 09:57:25SPECIMEN NUMBER: [id number] CULTURE, URINE SPECIMEN NUMBER: [id number] SPECIMEN COMMENT: URINE SOURCE:URINE REPORT STATUS: FINAL FINAL REPORT: 06/15/2022 10-50,000 CFU/ML UROGENITAL OLEKSANDR PRESENT NO COMM ON PATHOGENS UNLESS OTHERWISE INDICATED, ALL TESTING PERFORMED [facility] [address] [place] [address] FLOOR ASSOCIATE: ODILON SUMMERS M.D. CLIA NUMBER [id number] [place]. [id number] CULTURE, [id number] 00:00:00 Test Item Value Reference Range Interpretation Comments CULTURE, URINE (test SPECIMEN NUMBER: code = 99696) [id number] CULTURE, [id number] 00:00:00 Test Item Value Reference Range Interpretation Comments CULTURE, URINE (test SPECIMEN NUMBER: code = 19007) [id number] CULTURE, [id number] 00:00:00 Test Item Value Reference Range Interpretation Comments CULTURE, URINE (test SPECIMEN NUMBER: code = 70412) [id number] CULTURE, [id number] 00:00:00 Test Item Value Reference Range Interpretation Comments CULTURE, URINE (test SPECIMEN NUMBER: code = 23540) [id number] CULTURE, [id number] 00:00:00 Test Item Value Reference Range Interpretation Comments CULTURE, URINE (test SPECIMEN NUMBER: code = 24878) [id number] CULTURE, [id number] 00:00:00 Test Item Value Reference Range Interpretation Comments CULTURE, URINE (test SPECIMEN NUMBER: code = 64821) [id number] CULTURE, [id number] 00:00:00 Test Item Value Reference Range Interpretation Comments CULTURE, URINE (test SPECIMEN NUMBER: code = 02280) [id number] CULTURE, [id number] 00:00:00 Test Item Value Reference Range Interpretation Comments CULTURE, URINE (test SPECIMEN NUMBER: code = 72278) [id number] CULTURE, [id number] 00:00:00 Test Item Value Reference Range Interpretation Comments CULTURE, URINE (test SPECIMEN NUMBER: code = 66602) [id number] CULTURE, [id number] 00:00:00 Test Item Value Reference Range Interpretation Comments CULTURE, URINE (test SPECIMEN NUMBER: code = 08557) [id number] CULTURE, [id number] 00:00:00 Test Item Value Reference Range Interpretation Comments CULTURE, URINE (test SPECIMEN NUMBER: code = 63136) [id number] CULTURE, [id number] 00:00:00 Test Item Value Reference Range Interpretation Comments CULTURE, URINE (test SPECIMEN NUMBER: code = 45305) [id number] CULTURE, [id number] 00:00:00 Test Item Value Reference Range Interpretation Comments CULTURE, URINE (test SPECIMEN NUMBER: code = 94330) [id number] CULTURE, [id number] 00:00:00 Test Item Value Reference Range Interpretation Comments CULTURE, URINE (test SPECIMEN NUMBER: code = 06425) [id number] VAGINAL PATHOGENS DNA [id number] 08:25:39 Test Item Value Reference Range Interpretation Comments RAMESH SPECIES (test NEGATIVE NEGATIVE code = ) G. VAGINALIS (test POSITIVE NEGATIVE A code = 84884) T. VAGINALIS (test NEGATIVE NEGATIVE Analysis performed code = 89232) beyond manufac turer designated stab ility. Correlate with clinical history and con plate grainer retesting as cl inically indicated. Resu lts reviewed by the Microbiology de partment for accuracy pr ior to reporting. VAGINAL PATHOGENS DNA [id number] 00:00:00 Test Item Value Reference Range Interpretation Comments RAMESH SPECIES (test code = 52043) NEGATIVE G. VAGINALIS (test code = 59931) POSITIVE T. VAGINALIS (test code = 24393) NEGATIVE VAGINAL PATHOGENS DNA [id number] 00:00:00 Test Item Value Reference Range Interpretation Comments RAMESH SPECIES (test code = 47141) NEGATIVE G. VAGINALIS (test code = 72105) POSITIVE T. VAGINALIS (test code = 24181) NEGATIVE VAGINAL PATHOGENS DNA [id number] 00:00:00 Test Item Value Reference Range Interpretation Comments RAMESH SPECIES (test code = 07162) NEGATIVE G. VAGINALIS (test code = 89276) POSITIVE T. VAGINALIS (test code = 11914) NEGATIVE VAGINAL PATHOGENS DNA [id number] 00:00:00 Test Item Value Reference Range Interpretation Comments RAMESH SPECIES (test code = 18511) NEGATIVE G. VAGINALIS (test code = 02266) POSITIVE T. VAGINALIS (test code = 08623) NEGATIVE VAGINAL PATHOGENS DNA [id number] 00:00:00 Test Item Value Reference Range Interpretation Comments RAMESH SPECIES (test code = 34794) NEGATIVE G. VAGINALIS (test code = 40802) POSITIVE T. VAGINALIS (test code = 88647) NEGATIVE VAGINAL PATHOGENS DNA [id number] 00:00:00 Test Item Value Reference Range Interpretation Comments RAMESH SPECIES (test code = 27243) NEGATIVE G. VAGINALIS (test code = 89556) POSITIVE T. VAGINALIS (test code = 79289) NEGATIVE VAGINAL PATHOGENS DNA [id number] 00:00:00 Test Item Value Reference Range Interpretation Comments RAMESH SPECIES (test code = 82230) NEGATIVE G. VAGINALIS (test code = 30099) POSITIVE T. VAGINALIS (test code = 51567) NEGATIVE VAGINAL PATHOGENS DNA [id number] 00:00:00 Test Item Value Reference Range Interpretation Comments RAMESH SPECIES (test code = 65946) NEGATIVE G. VAGINALIS (test code = 32188) POSITIVE T. VAGINALIS (test code = 91292) NEGATIVE VAGINAL PATHOGENS DNA [id number] 00:00:00 Test Item Value Reference Range Interpretation Comments RAMESH SPECIES (test code = 70216) NEGATIVE G. VAGINALIS (test code = 82285) POSITIVE T. VAGINALIS (test code = 23968) NEGATIVE VAGINAL PATHOGENS DNA [id number] 00:00:00 Test Item Value Reference Range Interpretation Comments RAMESH SPECIES (test code = 73682) NEGATIVE G. VAGINALIS (test code = 29872) POSITIVE T. VAGINALIS (test code = 87191) NEGATIVE VAGINAL PATHOGENS DNA [id number] 00:00:00 Test Item Value Reference Range Interpretation Comments RAMESH SPECIES (test code = 59524) NEGATIVE G. VAGINALIS (test code = 90203) POSITIVE T. VAGINALIS (test code = 62170) NEGATIVE VAGINAL PATHOGENS DNA [id number] 00:00:00 Test Item Value Reference Range Interpretation Comments RAMESH SPECIES (test code = 59824) NEGATIVE G. VAGINALIS (test code = 95328) POSITIVE T. VAGINALIS (test code = 00926) NEGATIVE VAGINAL PATHOGENS DNA [id number] 00:00:00 Test Item Value Reference Range Interpretation Comments RAMESH SPECIES (test code = 88169) NEGATIVE G. VAGINALIS (test code = 22226) POSITIVE T. VAGINALIS (test code = 18644) NEGATIVE VAGINAL PATHOGENS DNA [id number] 00:00:00 Test Item Value Reference Range Interpretation Comments RAMESH SPECIES (test code = 33063) NEGATIVE G. VAGINALIS (test code = 28663) POSITIVE T. VAGINALIS (test code = 62240) NEGATIVE VAGINAL PATHOGENS DNA [id number] 00:00:00 Test Item Value Reference Range Interpretation Comments RAMESH SPECIES (test code = 54117) NEGATIVE G. VAGINALIS (test code = 46088) POSITIVE T. VAGINALIS (test code = 09171) NEGATIVE VAGINAL PATHOGENS DNA [id number] 00:00:00 Test Item Value Reference Range Interpretation Comments RAMESH SPECIES (test code = 98254) NEGATIVE G. VAGINALIS (test code = 10984) POSITIVE T. VAGINALIS (test code = 70511) NEGATIVE VAGINAL PATHOGENS DNA [id number] 00:00:00 Test Item Value Reference Range Interpretation Comments RAMESH SPECIES (test code = 66739) NEGATIVE G. VAGINALIS (test code = 78591) POSITIVE T. VAGINALIS (test code = 13557) NEGATIVE VAGINAL PATHOGENS DNA [id number] 00:00:00 Test Item Value Reference Range Interpretation Comments RAMESH SPECIES (test code = 92808) NEGATIVE G. VAGINALIS (test code = 32419) POSITIVE T. VAGINALIS (test code = 10875) NEGATIVE VAGINAL PATHOGENS DNA [id number] 00:00:00 Test Item Value Reference Range Interpretation Comments RAMESH SPECIES (test code = 39054) NEGATIVE G. VAGINALIS (test code = 70993) POSITIVE T. VAGINALIS (test code = 24070) NEGATIVE VAGINAL PATHOGENS DNA [id number] 00:00:00 Test Item Value Reference Range Interpretation Comments RAMESH SPECIES (test code = 07573) NEGATIVE G. VAGINALIS (test code = 19704) POSITIVE T. VAGINALIS (test code = 07971) NEGATIVE VAGINAL PATHOGENS DNA [id number] 00:00:00 Test Item Value Reference Range Interpretation Comments RAMESH SPECIES (test code = 35218) NEGATIVE G. VAGINALIS (test code = 03716) POSITIVE T. VAGINALIS (test code = 17278) NEGATIVE HIV 1/2 4TH GEN, RFLX [id number] 00:02:34 Test Item Value Reference Range Interpretation Comments HIV 1/2 4TH GEN, RFLX CONF (test NON-REACTIVE NON-REACTIVE code = 3514) HEPATITIS PANEL, [id number] 00:02:34 Test Item Value Reference Range Interpretation [...] HEPATITIS B: (test serology consistent code = 90357) with immunity to hepatitis Bfrom previous hepati tis B vaccination. INTERPRETATION (NOTE) Hepatitis C HEPATITIS C: (test serology shows no code = 85442) evidence of ex posure to hepatitisC v irus at this time. I t can take up to 12 m onths after exposure tothe hepatitis C vir us for antibodies to become detectab le in the blood in ce rtain patients. UNLES S OTHERWISE INDIC ATED, ALL TESTING PERFORMED [facility] [place] [address] [place] [address] [facility] DIRECTOR: ODILON SUMMERS M.D. CLIA NUMBER [id number] [facility] [place] [id number] HEPATITIS PROFILE (A,B,C)2022-03-22 00:00:00 Test Item Value [...] INTERPRETATION HEPATITIS B: (NOTE) (test code = 68096) INTERPRETATION HEPATITIS C: (NOTE) (test code = 97819) HEPATITIS PROFILE (A,B,C)2022-03-22 00:00:00 Test Item Value [...] INTERPRETATION HEPATITIS B: (NOTE) (test code = 22940) INTERPRETATION HEPATITIS C: (NOTE) (test code = 41257) HIV 1/2 4TH GEN, RFLX CONF [ADDED]2022-03-22 [...] INTERPRETATION HEPATITIS B: (NOTE) (test code = 70021) INTERPRETATION HEPATITIS C: (NOTE) (test code = 34550) HEPATITIS PROFILE (A,B,C)2022-03-22 00:00:00 Test Item Value [...] INTERPRETATION HEPATITIS B: (NOTE) (test code = 09308) INTERPRETATION HEPATITIS C: (NOTE) (test code = 44170) HIV 1/2 4TH GEN, RFLX CONF [ADDED]2022-03-22 [...] INTERPRETATION HEPATITIS B: (NOTE) (test code = 61227) INTERPRETATION HEPATITIS C: (NOTE) (test code = 46873) HEPATITIS PROFILE (A,B,C)2022-03-22 00:00:00 Test Item Value [...] INTERPRETATION HEPATITIS B: (NOTE) (test code = 09651) INTERPRETATION HEPATITIS C: (NOTE) (test code = 73442) HIV 1/2 4TH GEN, RFLX CONF [ADDED]2022-03-22 [...] INTERPRETATION HEPATITIS B: (NOTE) (test code = 74813) INTERPRETATION HEPATITIS C: (NOTE) (test code = 13886) HEPATITIS PROFILE (A,B,C)2022-03-22 00:00:00 Test Item Value [...] INTERPRETATION HEPATITIS B: (NOTE) (test code = 29628) INTERPRETATION HEPATITIS C: (NOTE) (test code = 41396) HIV 1/2 4TH GEN, RFLX CONF [ADDED]2022-03-22 [...] INTERPRETATION HEPATITIS B: (NOTE) (test code = 27919) INTERPRETATION HEPATITIS C: (NOTE) (test code = 50532) HEPATITIS PROFILE (A,B,C)2022-03-22 00:00:00 Test Item Value [...] INTERPRETATION HEPATITIS B: (NOTE) (test code = 50027) INTERPRETATION HEPATITIS C: (NOTE) (test code = 17941) HIV 1/2 4TH GEN, RFLX CONF [ADDED]2022-03-22 [...] INTERPRETATION HEPATITIS B: (NOTE) (test code = 10507) INTERPRETATION HEPATITIS C: (NOTE) (test code = 34647) HEPATITIS PROFILE (A,B,C)2022-03-22 00:00:00 Test Item Value [...] INTERPRETATION HEPATITIS B: (NOTE) (test code = 97503) INTERPRETATION HEPATITIS C: (NOTE) (test code = 78917) HIV 1/2 4TH GEN, RFLX CONF [ADDED]2022-03-22 [...] INTERPRETATION HEPATITIS B: (NOTE) (test code = 62071) INTERPRETATION HEPATITIS C: (NOTE) (test code = 50276) HEPATITIS PROFILE (A,B,C)2022-03-22 00:00:00 Test Item Value [...] INTERPRETATION HEPATITIS B: (NOTE) (test code = 07990) INTERPRETATION HEPATITIS C: (NOTE) (test code = 21693) HIV 1/2 4TH GEN, RFLX CONF [ADDED]2022-03-22 [...] INTERPRETATION HEPATITIS B: (NOTE) (test code = 64209) INTERPRETATION HEPATITIS C: (NOTE) (test code = 47792) HEPATITIS PROFILE (A,B,C)2022-03-22 00:00:00 Test Item Value [...] INTERPRETATION HEPATITIS B: (NOTE) (test code = 56062) INTERPRETATION HEPATITIS C: (NOTE) (test code = 69328) HIV 1/2 4TH GEN, RFLX CONF [ADDED]2022-03-22 [...] INTERPRETATION HEPATITIS B: (NOTE) (test code = 98742) INTERPRETATION HEPATITIS C: (NOTE) (test code = 70698) HIV 1/2 4TH GEN, RFLX CONF [ADDED]2022-03-22 [...] INTERPRETATION HEPATITIS B: (NOTE) (test code = 19038) INTERPRETATION HEPATITIS C: (NOTE) (test code = 34678) HEPATITIS PROFILE (A,B,C)2022-03-22 00:00:00 Test Item Value [...] INTERPRETATION HEPATITIS B: (NOTE) (test code = 58286) INTERPRETATION HEPATITIS C: (NOTE) (test code = 68359) HIV 1/2 4TH GEN, RFLX CONF [ADDED]2022-03-22 [...] INTERPRETATION HEPATITIS B: (NOTE) (test code = 46709) INTERPRETATION HEPATITIS C: (NOTE) (test code = 58367) HEPATITIS PROFILE (A,B,C)2022-03-22 00:00:00 Test Item Value [...] INTERPRETATION HEPATITIS B: (NOTE) (test code = 91380) INTERPRETATION HEPATITIS C: (NOTE) (test code = 46614) HIV 1/2 4TH GEN, RFLX CONF [ADDED]2022-03-22 00:00:00 Test Item Value Reference Range Interpretation Comments HIV 1/2 4TH GEN, RFLX CONF (test NON-REACTIVE code = 3514) HIV 1/2 4TH GEN, RFLX CONF [ADDED]2022-03-22 00:00:00 Test Item Value Reference Range Interpretation Comments HIV 1/2 4TH GEN, RFLX CONF (test NON-REACTIVE code = 3514) [id number] 22:35:53 Test Item Value Reference Range Interpretation Comments RPR RESULT (test code = NON-REACTIVE NON-REACTIVE 3501) RPR TITER (test code = 3500) NOT INDIC. TITER NOT INDIC. [id number] 00:00:00 Test Item Value Reference Range Interpretation Comments RPR RESULT (test code = NON-REACTIVE 3501) RPR TITER (test code = 3500) NOT INDIC. TITER [id number] 00:00:00 Test Item Value Reference Range Interpretation Comments RPR RESULT (test code = NON-REACTIVE 3501) RPR TITER (test code = 3500) NOT INDIC. TITER [id number] 00:00:00 Test Item Value Reference Range Interpretation Comments RPR RESULT (test code = NON-REACTIVE 3501) RPR TITER (test code = 3500) NOT INDIC. TITER [id number] 00:00:00 Test Item Value Reference Range Interpretation Comments RPR RESULT (test code = NON-REACTIVE 3501) RPR TITER (test code = 3500) NOT INDIC. TITER [id number] 00:00:00 Test Item Value Reference Range Interpretation Comments RPR RESULT (test code = NON-REACTIVE 3501) RPR TITER (test code = 3500) NOT INDIC. TITER [id number] 00:00:00 Test Item Value Reference Range Interpretation Comments RPR RESULT (test code = NON-REACTIVE 3501) RPR TITER (test code = 3500) NOT INDIC. TITER [id number] 00:00:00 Test Item Value Reference Range Interpretation Comments RPR RESULT (test code = NON-REACTIVE 3501) RPR TITER (test code = 3500) NOT INDIC. TITER [id number] 00:00:00 Test Item Value Reference Range Interpretation Comments RPR RESULT (test code = NON-REACTIVE 3501) RPR TITER (test code = 3500) NOT INDIC. TITER [id number] 00:00:00 Test Item Value Reference Range Interpretation Comments RPR RESULT (test code = NON-REACTIVE 3501) RPR TITER (test code = 3500) NOT INDIC. TITER [id number] 00:00:00 Test Item Value Reference Range Interpretation Comments RPR RESULT (test code = NON-REACTIVE 3501) RPR TITER (test code = 3500) NOT INDIC. TITER [id number] 00:00:00 Test Item Value Reference Range Interpretation Comments RPR RESULT (test code = NON-REACTIVE 3501) RPR TITER (test code = 3500) NOT INDIC. TITER [id number] 00:00:00 Test Item Value Reference Range Interpretation Comments RPR RESULT (test code = NON-REACTIVE 3501) RPR TITER (test code = 3500) NOT INDIC. TITER [id number] 00:00:00 Test Item Value Reference Range Interpretation Comments RPR RESULT (test code = NON-REACTIVE 3501) RPR TITER (test code = 3500) NOT INDIC. TITER [id number] 00:00:00 Test Item Value Reference Range Interpretation Comments RPR RESULT (test code = NON-REACTIVE 3501) RPR TITER (test code = 3500) NOT INDIC. TITER [id number] 00:00:00 Test Item Value Reference Range Interpretation Comments RPR RESULT (test code = NON-REACTIVE 3501) RPR TITER (test code = 3500) NOT INDIC. TITER [id number] 00:00:00 Test Item Value Reference Range Interpretation Comments RPR RESULT (test code = NON-REACTIVE 3501) RPR TITER (test code = 3500) NOT INDIC. TITER [id number] 00:00:00 Test Item Value Reference Range Interpretation Comments RPR RESULT (test code = NON-REACTIVE 3501) RPR TITER (test code = 3500) NOT INDIC. TITER [id number] 00:00:00 Test Item Value Reference Range Interpretation Comments RPR RESULT (test code = NON-REACTIVE 3501) RPR TITER (test code = 3500) NOT INDIC. TITER [id number] 00:00:00 Test Item Value Reference Range Interpretation Comments RPR RESULT (test code = NON-REACTIVE 3501) RPR TITER (test code = 3500) NOT INDIC. TITER [id number] 00:00:00 Test Item Value Reference Range Interpretation Comments RPR RESULT (test code = NON-REACTIVE 3501) RPR TITER (test code = 3500) NOT INDIC. TITER [id number] 00:00:00 Test Item Value Reference Range Interpretation Comments RPR RESULT (test code = NON-REACTIVE 3501) RPR TITER (test code = 3500) NOT INDIC. TITER [id number] 00:00:00 Test Item Value Reference Range Interpretation Comments RPR RESULT (test code = NON-REACTIVE 3501) RPR TITER (test code = 3500) NOT INDIC. TITER [id number] 00:00:00 Test Item Value Reference Range Interpretation Comments RPR RESULT (test code = NON-REACTIVE 3501) RPR TITER (test code = 3500) NOT INDIC. TITER [id number] 00:00:00 Test Item Value Reference Range Interpretation Comments RPR RESULT (test code = NON-REACTIVE 3501) RPR TITER (test code = 3500) NOT INDIC. TITER [id number] 00:00:00 Test Item Value Reference Range Interpretation Comments RPR RESULT (test code = NON-REACTIVE 3501) RPR TITER (test code = 3500) NOT INDIC. TITER [id number] 00:00:00 Test Item Value Reference Range Interpretation Comments RPR RESULT (test code = NON-REACTIVE 3501) RPR TITER (test code = 3500) NOT INDIC. TITER [id number] 00:00:00 Test Item Value Reference Range Interpretation Comments RPR RESULT (test code = NON-REACTIVE 3501) RPR TITER (test code = 3500) NOT INDIC. TITER [id number] 00:00:00 Test Item Value Reference Range Interpretation Comments RPR RESULT (test code = NON-REACTIVE 3501) RPR TITER (test code = 3500) NOT INDIC. TITER [id number] 00:00:00 Test Item Value Reference Range Interpretation Comments RPR RESULT (test code = NON-REACTIVE 3501) RPR TITER (test code = 3500) NOT INDIC. TITER [id number] 00:00:00 Test Item Value Reference Range Interpretation Comments RPR RESULT (test code = NON-REACTIVE 3501) RPR TITER (test code = 3500) NOT INDIC. TITER [id number] 00:00:00 Test Item Value Reference Range Interpretation Comments RPR RESULT (test code = NON-REACTIVE 3501) RPR TITER (test code = 3500) NOT INDIC. TITER [id number] 00:00:00 Test Item Value Reference Range Interpretation Comments RPR RESULT (test code = NON-REACTIVE 3501) RPR TITER (test code = 3500) NOT INDIC. TITER SARS-CoV-2 (COVID-19), RT-PCR/[id number] 17:22:58 Test Item Value Reference Interpretation Comments Range SARS-CoV-2 NEGATIVE SEE NOTE SARS-CoV-2 RNA NOT INTERPRETATION DETECTEDNegat alexander (test code = 18423) results do not preclude SARS-C oV-2 infection [...] (test code = [place]OP[place]: [place] [address]) Steve Cecile Melba l-Time RT-PCR. The exp [...] provided by met hod given in report:[email or web address]:// [email or web address]/ Alternatively, see downloadable PD F fact sheet at:[email or web address]://[email or web address] T-PCR UNLESS OTHERWIS E INDICATED, ALL TESTING PERFORMED [facility]. [address] [place] [address] [facility] DIRECTOR: ODILON SUMMERS M.D. CLIA NUMBER [id number] CAP ACCREDITATION N O. [id number] SARS-CoV-2 (COVID-19) by RT-PCR (HIGH RISK)2021-10-10 00:00:00 Test Item Value Reference Range Interpretation Comments SARS-CoV-2 INTERPRETATION NEGATIVE (test code = 72881) SOURCE (test code = 55188) NASOPHARYNGEAL SARS-CoV-2 (COVID-19) by RT-PCR (HIGH RISK)2021-10-10 00:00:00 Test Item Value Reference Range Interpretation Comments SARS-CoV-2 INTERPRETATION NEGATIVE (test code = 74429) SOURCE (test code = 63621) NASOPHARYNGEAL SARS-CoV-2 (COVID-19) by RT-PCR (HIGH RISK)2021-10-10 00:00:00 Test Item Value Reference Range Interpretation Comments SARS-CoV-2 INTERPRETATION NEGATIVE (test code = 93904) SOURCE (test code = 20908) NASOPHARYNGEAL SARS-CoV-2 (COVID-19) by RT-PCR (HIGH RISK)2021-10-10 00:00:00 Test Item Value Reference Range Interpretation Comments SARS-CoV-2 INTERPRETATION NEGATIVE (test code = 50280) SOURCE (test code = 78324) NASOPHARYNGEAL SARS-CoV-2 (COVID-19) by RT-PCR (HIGH RISK)2021-10-10 00:00:00 Test Item Value Reference Range Interpretation Comments SARS-CoV-2 INTERPRETATION NEGATIVE (test code = 22968) SOURCE (test code = 48589) NASOPHARYNGEAL SARS-CoV-2 (COVID-19) by RT-PCR (HIGH RISK)2021-10-10 00:00:00 Test Item Value Reference Range Interpretation Comments SARS-CoV-2 INTERPRETATION NEGATIVE (test code = 38920) SOURCE (test code = 32347) NASOPHARYNGEAL SARS-CoV-2 (COVID-19) by RT-PCR (HIGH RISK)2021-10-10 00:00:00 Test Item Value Reference Range Interpretation Comments SARS-CoV-2 INTERPRETATION NEGATIVE (test code = 93077) SOURCE (test code = 05957) NASOPHARYNGEAL SARS-CoV-2 (COVID-19) by RT-PCR (HIGH RISK)2021-10-10 00:00:00 Test Item Value Reference Range Interpretation Comments SARS-CoV-2 INTERPRETATION NEGATIVE (test code = 34163) SOURCE (test code = 99613) NASOPHARYNGEAL SARS-CoV-2 (COVID-19) by RT-PCR (HIGH RISK)2021-10-10 00:00:00 Test Item Value Reference Range Interpretation Comments SARS-CoV-2 INTERPRETATION NEGATIVE (test code = 38633) SOURCE (test code = 04931) NASOPHARYNGEAL SARS-CoV-2 (COVID-19) by RT-PCR (HIGH RISK)2021-10-10 00:00:00 Test Item Value Reference Range Interpretation Comments SARS-CoV-2 INTERPRETATION NEGATIVE (test code = 61587) SOURCE (test code = 98114) NASOPHARYNGEAL SARS-CoV-2 (COVID-19) by RT-PCR (HIGH RISK)2021-10-10 00:00:00 Test Item Value Reference Range Interpretation Comments SARS-CoV-2 INTERPRETATION NEGATIVE (test code = 24078) SOURCE (test code = 78867) NASOPHARYNGEAL SARS-CoV-2 (COVID-19) by RT-PCR (HIGH RISK)2021-10-10 00:00:00 Test Item Value Reference Range Interpretation Comments SARS-CoV-2 INTERPRETATION NEGATIVE (test code = 42124) SOURCE (test code = 58960) NASOPHARYNGEAL SARS-CoV-2 (COVID-19) by RT-PCR (HIGH RISK)2021-10-10 00:00:00 Test Item Value Reference Range Interpretation Comments SARS-CoV-2 INTERPRETATION NEGATIVE (test code = 95350) SOURCE (test code = 55436) NASOPHARYNGEAL SARS-CoV-2 (COVID-19) by RT-PCR (HIGH RISK)2021-10-10 00:00:00 Test Item Value Reference Range Interpretation Comments SARS-CoV-2 INTERPRETATION NEGATIVE (test code = 36626) SOURCE (test code = 33309) NASOPHARYNGEAL SARS-CoV-2 (COVID-19) by RT-PCR (HIGH RISK)2021-10-10 00:00:00 Test Item Value Reference Range Interpretation Comments SARS-CoV-2 INTERPRETATION NEGATIVE (test code = 00658) SOURCE (test code = 72930) NASOPHARYNGEAL SARS-CoV-2 (COVID-19) by RT-PCR (HIGH RISK)2021-10-10 00:00:00 Test Item Value Reference Range Interpretation Comments SARS-CoV-2 INTERPRETATION NEGATIVE (test code = 81082) SOURCE (test code = 50210) NASOPHARYNGEAL SARS-CoV-2 (COVID-19) by RT-PCR (HIGH RISK)2021-10-10 00:00:00 Test Item Value Reference Range Interpretation Comments SARS-CoV-2 INTERPRETATION NEGATIVE (test code = 33753) SOURCE (test code = 75484) NASOPHARYNGEAL SARS-CoV-2 (COVID-19) by RT-PCR (HIGH RISK)2021-10-10 00:00:00 Test Item Value Reference Range Interpretation Comments SARS-CoV-2 INTERPRETATION NEGATIVE (test code = 49700) SOURCE (test code = 57811) NASOPHARYNGEAL SARS-CoV-2 (COVID-19) by RT-PCR (HIGH RISK)2021-10-10 00:00:00 Test Item Value Reference Range Interpretation Comments SARS-CoV-2 INTERPRETATION NEGATIVE (test code = 67815) SOURCE (test code = 08649) NASOPHARYNGEAL SARS-CoV-2 (COVID-19) by RT-PCR (HIGH RISK)2021-10-10 00:00:00 Test Item Value Reference Range Interpretation Comments SARS-CoV-2 INTERPRETATION NEGATIVE (test code = 10235) SOURCE (test code = 07002) NASOPHARYNGEAL SARS-CoV-2 (COVID-19) by RT-PCR (HIGH RISK)2021-10-10 00:00:00 Test Item Value Reference Range Interpretation Comments SARS-CoV-2 INTERPRETATION NEGATIVE (test code = 49071) SOURCE (test code = 82914) NASOPHARYNGEAL CHLAMYDIA, AMPLIFIED, [id number] 00:00:00 Test Item Value Reference Range Interpretation Comments CHLAMYDIA, NAAT (test code = 23868) NEGATIVE CHLAMYDIA, AMPLIFIED, [id number] 00:00:00 Test Item Value Reference Range Interpretation Comments CHLAMYDIA, NAAT (test code = 24507) NEGATIVE CHLAMYDIA, AMPLIFIED, [id number] 00:00:00 Test Item Value Reference Range Interpretation Comments CHLAMYDIA, NAAT (test code = 20224) NEGATIVE CHLAMYDIA, AMPLIFIED, [id number] 00:00:00 Test Item Value Reference Range Interpretation Comments CHLAMYDIA, NAAT (test code = 74703) NEGATIVE GC, AMPLIFIED, [id number] 00:00:00 Test Item Value Reference Range Interpretation Comments GONORRHEA, NAAT (test code = 24887) NEGATIVE GC, AMPLIFIED, [id number] 00:00:00 Test Item Value Reference Range Interpretation Comments GONORRHEA, NAAT (test code = 28497) NEGATIVE GC, AMPLIFIED, [id number] 00:00:00 Test Item Value Reference Range Interpretation Comments GONORRHEA, NAAT (test code = 82322) NEGATIVE GC, AMPLIFIED, [id number] 00:00:00 Test Item Value Reference Range Interpretation Comments GONORRHEA, NAAT (test code = 46564) NEGATIVE HIV AB/AG COMBO RFLX [id number] 00:00:00 Test Item Value Reference Range Interpretation Comments HIV 1/2 4TH GEN, RFLX CONF (test NON-REACTIVE code = 3514) HIV AB/AG COMBO RFLX [id number] 00:00:00 Test Item Value Reference Range Interpretation Comments HIV 1/2 4TH GEN, RFLX CONF (test NON-REACTIVE code = 3514) [id number] 00:00:00 Test Item Value Reference Range Interpretation Comments RPR RESULT (test code = NON-REACTIVE 3501) RPR TITER (test code = 3500) NOT INDIC. TITER [id number] 00:00:00 Test Item Value Reference Range Interpretation Comments RPR RESULT (test code = NON-REACTIVE 3501) RPR TITER (test code = 3500) NOT INDIC. TITER [id number] 00:00:00 Test Item Value Reference Range Interpretation Comments RPR RESULT (test code = NON-REACTIVE 3501) RPR TITER (test code = 3500) NOT INDIC. TITER ACUTE HEPATITIS [id number] 00:00:00 Test Item Value Reference Range Interpretation Comments HEPATITIS A IgM (test code = NON-REACTIVE 52210) HEPATITIS B CORE IgM (test code NON-REACTIVE = 4644) HEPATITIS B SURF AG (test code = NON-REACTIVE 2739) HEPATITIS C ANTIBODY (test code NON-REACTIVE = 4675) INTERPRETATION HEPATITIS A: (NOTE) (test code = 2552) INTERPRETATION HEPATITIS B: (NOTE) (test code = 97335) INTERPRETATION HEPATITIS C: (NOTE) (test code = 21004) ACUTE HEPATITIS [id number] 00:00:00 Test Item Value Reference Range Interpretation Comments HEPATITIS A IgM (test code = NON-REACTIVE 70047) HEPATITIS B CORE IgM (test code NON-REACTIVE = 4644) HEPATITIS B SURF AG (test code = NON-REACTIVE 2739) HEPATITIS C ANTIBODY (test code NON-REACTIVE = 4675) INTERPRETATION HEPATITIS A: (NOTE) (test code = 2552) INTERPRETATION HEPATITIS B: (NOTE) (test code = 38555) INTERPRETATION HEPATITIS C: (NOTE) (test code = 92652) CHLAMYDIA, AMPLIFIED, [id number] 00:00:00 Test Item Value Reference Range Interpretation Comments CHLAMYDIA, NAAT (test code = 37242) NEGATIVE CHLAMYDIA, AMPLIFIED, [id number] 00:00:00 Test Item Value Reference Range Interpretation Comments CHLAMYDIA, NAAT (test code = 92834) NEGATIVE CHLAMYDIA, AMPLIFIED, [id number] 00:00:00 Test Item Value Reference Range Interpretation Comments CHLAMYDIA, NAAT (test code = 95830) NEGATIVE CHLAMYDIA, AMPLIFIED, [id number] 00:00:00 Test Item Value Reference Range Interpretation Comments CHLAMYDIA, NAAT (test code = 90231) NEGATIVE GC, AMPLIFIED, [id number] 00:00:00 Test Item Value Reference Range Interpretation Comments GONORRHEA, NAAT (test code = 66187) NEGATIVE GC, AMPLIFIED, [id number] 00:00:00 Test Item Value Reference Range Interpretation Comments GONORRHEA, NAAT (test code = 92064) NEGATIVE GC, AMPLIFIED, [id number] 00:00:00 Test Item Value Reference Range Interpretation Comments GONORRHEA, NAAT (test code = 46051) NEGATIVE GC, AMPLIFIED, [id number] 00:00:00 Test Item Value Reference Range Interpretation Comments GONORRHEA, NAAT (test code = 84119) NEGATIVE HIV AB/AG COMBO RFLX [id number] 00:00:00 Test Item Value Reference Range Interpretation Comments HIV 1/2 4TH GEN, RFLX CONF (test NON-REACTIVE code = 3514) HIV AB/AG COMBO RFLX [id number] 00:00:00 Test Item Value Reference Range Interpretation Comments HIV 1/2 4TH GEN, RFLX CONF (test NON-REACTIVE code = 3514) [id number] 00:00:00 Test Item Value Reference Range Interpretation Comments RPR RESULT (test code = NON-REACTIVE 3501) RPR TITER (test code = 3500) NOT INDIC. TITER [id number] 00:00:00 Test Item Value Reference Range Interpretation Comments RPR RESULT (test code = NON-REACTIVE 3501) RPR TITER (test code = 3500) NOT INDIC. TITER [id number] 00:00:00 Test Item Value Reference Range Interpretation Comments RPR RESULT (test code = NON-REACTIVE 3501) RPR TITER (test code = 3500) NOT INDIC. TITER ACUTE HEPATITIS [id number] 00:00:00 Test Item Value Reference Range Interpretation Comments HEPATITIS A IgM (test code = NON-REACTIVE 17266) HEPATITIS B CORE IgM (test code NON-REACTIVE = 4644) HEPATITIS B SURF AG (test code = NON-REACTIVE 2739) HEPATITIS C ANTIBODY (test code NON-REACTIVE = 4675) INTERPRETATION HEPATITIS A: (NOTE) (test code = 2552) INTERPRETATION HEPATITIS B: (NOTE) (test code = 01577) INTERPRETATION HEPATITIS C: (NOTE) (test code = 76634) ACUTE HEPATITIS [id number] 00:00:00 Test Item Value Reference Range Interpretation Comments HEPATITIS A IgM (test code = NON-REACTIVE 59095) HEPATITIS B CORE IgM (test code NON-REACTIVE = 4644) HEPATITIS B SURF AG (test code = NON-REACTIVE 2739) HEPATITIS C ANTIBODY (test code NON-REACTIVE = 4675) INTERPRETATION HEPATITIS A: (NOTE) (test code = 2552) INTERPRETATION HEPATITIS B: (NOTE) (test code = 39214) INTERPRETATION HEPATITIS C: (NOTE) (test code = 96797) CHLAMYDIA, AMPLIFIED, [id number] 00:00:00 Test Item Value Reference Range Interpretation Comments CHLAMYDIA, NAAT (test code = 80405) NEGATIVE CHLAMYDIA, AMPLIFIED, [id number] 00:00:00 Test Item Value Reference Range Interpretation Comments CHLAMYDIA, NAAT (test code = 93295) NEGATIVE CHLAMYDIA, AMPLIFIED, [id number] 00:00:00 Test Item Value Reference Range Interpretation Comments CHLAMYDIA, NAAT (test code = 64505) NEGATIVE CHLAMYDIA, AMPLIFIED, [id number] 00:00:00 Test Item Value Reference Range Interpretation Comments CHLAMYDIA, NAAT (test code = 18736) NEGATIVE GC, AMPLIFIED, [id number] 00:00:00 Test Item Value Reference Range Interpretation Comments GONORRHEA, NAAT (test code = 50737) NEGATIVE GC, AMPLIFIED, [id number] 00:00:00 Test Item Value Reference Range Interpretation Comments GONORRHEA, NAAT (test code = 19060) NEGATIVE GC, AMPLIFIED, [id number] 00:00:00 Test Item Value Reference Range Interpretation Comments GONORRHEA, NAAT (test code = 83099) NEGATIVE GC, AMPLIFIED, [id number] 00:00:00 Test Item Value Reference Range Interpretation Comments GONORRHEA, NAAT (test code = 03146) NEGATIVE HIV AB/AG COMBO RFLX [id number] 00:00:00 Test Item Value Reference Range Interpretation Comments HIV 1/2 4TH GEN, RFLX CONF (test NON-REACTIVE code = 3514) HIV AB/AG COMBO RFLX [id number] 00:00:00 Test Item Value Reference Range Interpretation Comments HIV 1/2 4TH GEN, RFLX CONF (test NON-REACTIVE code = 3514) [id number] 00:00:00 Test Item Value Reference Range Interpretation Comments RPR RESULT (test code = NON-REACTIVE 3501) RPR TITER (test code = 3500) NOT INDIC. TITER [id number] 00:00:00 Test Item Value Reference Range Interpretation Comments RPR RESULT (test code = NON-REACTIVE 3501) RPR TITER (test code = 3500) NOT INDIC. TITER [id number] 00:00:00 Test Item Value Reference Range Interpretation Comments RPR RESULT (test code = NON-REACTIVE 3501) RPR TITER (test code = 3500) NOT INDIC. TITER ACUTE HEPATITIS [id number] 00:00:00 Test Item Value Reference Range Interpretation Comments HEPATITIS A IgM (test code = NON-REACTIVE 16975) HEPATITIS B CORE IgM (test code NON-REACTIVE = 4644) HEPATITIS B SURF AG (test code = NON-REACTIVE 2739) HEPATITIS C ANTIBODY (test code NON-REACTIVE = 4675) INTERPRETATION HEPATITIS A: (NOTE) (test code = 2552) INTERPRETATION HEPATITIS B: (NOTE) (test code = 76707) INTERPRETATION HEPATITIS C: (NOTE) (test code = 33812) ACUTE HEPATITIS [id number] 00:00:00 Test Item Value Reference Range Interpretation Comments HEPATITIS A IgM (test code = NON-REACTIVE 08890) HEPATITIS B CORE IgM (test code NON-REACTIVE = 4644) HEPATITIS B SURF AG (test code = NON-REACTIVE 2739) HEPATITIS C ANTIBODY (test code NON-REACTIVE = 4675) INTERPRETATION HEPATITIS A: (NOTE) (test code = 2552) INTERPRETATION HEPATITIS B: (NOTE) (test code = 33148) INTERPRETATION HEPATITIS C: (NOTE) (test code = 20272) CHLAMYDIA, AMPLIFIED, [id number] 00:00:00 Test Item Value Reference Range Interpretation Comments CHLAMYDIA, NAAT (test code = 20091) NEGATIVE CHLAMYDIA, AMPLIFIED, [id number] 00:00:00 Test Item Value Reference Range Interpretation Comments CHLAMYDIA, NAAT (test code = 87397) NEGATIVE CHLAMYDIA, AMPLIFIED, [id number] 00:00:00 Test Item Value Reference Range Interpretation Comments CHLAMYDIA, NAAT (test code = 36305) NEGATIVE CHLAMYDIA, AMPLIFIED, [id number] 00:00:00 Test Item Value Reference Range Interpretation Comments CHLAMYDIA, NAAT (test code = 32524) NEGATIVE GC, AMPLIFIED, [id number] 00:00:00 Test Item Value Reference Range Interpretation Comments GONORRHEA, NAAT (test code = 36611) NEGATIVE GC, AMPLIFIED, [id number] 00:00:00 Test Item Value Reference Range Interpretation Comments GONORRHEA, NAAT (test code = 48090) NEGATIVE GC, AMPLIFIED, [id number] 00:00:00 Test Item Value Reference Range Interpretation Comments GONORRHEA, NAAT (test code = 03117) NEGATIVE GC, AMPLIFIED, [id number] 00:00:00 Test Item Value Reference Range Interpretation Comments GONORRHEA, NAAT (test code = 97947) NEGATIVE HIV AB/AG COMBO RFLX [id number] 00:00:00 Test Item Value Reference Range Interpretation Comments HIV 1/2 4TH GEN, RFLX CONF (test NON-REACTIVE code = 3514) HIV AB/AG COMBO RFLX [id number] 00:00:00 Test Item Value Reference Range Interpretation Comments HIV 1/2 4TH GEN, RFLX CONF (test NON-REACTIVE code = 3514) [id number] 00:00:00 Test Item Value Reference Range Interpretation Comments RPR RESULT (test code = NON-REACTIVE 3501) RPR TITER (test code = 3500) NOT INDIC. TITER [id number] 00:00:00 Test Item Value Reference Range Interpretation Comments RPR RESULT (test code = NON-REACTIVE 3501) RPR TITER (test code = 3500) NOT INDIC. TITER [id number] 00:00:00 Test Item Value Reference Range Interpretation Comments RPR RESULT (test code = NON-REACTIVE 3501) RPR TITER (test code = 3500) NOT INDIC. TITER ACUTE HEPATITIS [id number] 00:00:00 Test Item Value Reference Range Interpretation Comments HEPATITIS A IgM (test code = NON-REACTIVE 94620) HEPATITIS B CORE IgM (test code NON-REACTIVE = 4644) HEPATITIS B SURF AG (test code = NON-REACTIVE 2739) HEPATITIS C ANTIBODY (test code NON-REACTIVE = 4675) INTERPRETATION HEPATITIS A: (NOTE) (test code = 2552) INTERPRETATION HEPATITIS B: (NOTE) (test code = 60363) INTERPRETATION HEPATITIS C: (NOTE) (test code = 20224) ACUTE HEPATITIS [id number] 00:00:00 Test Item Value Reference Range Interpretation Comments HEPATITIS A IgM (test code = NON-REACTIVE 81004) HEPATITIS B CORE IgM (test code NON-REACTIVE = 4644) HEPATITIS B SURF AG (test code = NON-REACTIVE 2739) HEPATITIS C ANTIBODY (test code NON-REACTIVE = 4675) INTERPRETATION HEPATITIS A: (NOTE) (test code = 2552) INTERPRETATION HEPATITIS B: (NOTE) (test code = 87896) INTERPRETATION HEPATITIS C: (NOTE) (test code = 51741) CHLAMYDIA, AMPLIFIED, [id number] 00:00:00 Test Item Value Reference Range Interpretation Comments CHLAMYDIA, NAAT (test code = 69597) NEGATIVE CHLAMYDIA, AMPLIFIED, [id number] 00:00:00 Test Item Value Reference Range Interpretation Comments CHLAMYDIA, NAAT (test code = 16838) NEGATIVE CHLAMYDIA, AMPLIFIED, [id number] 00:00:00 Test Item Value Reference Range Interpretation Comments CHLAMYDIA, NAAT (test code = 66454) NEGATIVE CHLAMYDIA, AMPLIFIED, [id number] 00:00:00 Test Item Value Reference Range Interpretation Comments CHLAMYDIA, NAAT (test code = 52992) NEGATIVE GC, AMPLIFIED, [id number] 00:00:00 Test Item Value Reference Range Interpretation Comments GONORRHEA, NAAT (test code = 86957) NEGATIVE GC, AMPLIFIED, [id number] 00:00:00 Test Item Value Reference Range Interpretation Comments GONORRHEA, NAAT (test code = 07752) NEGATIVE GC, AMPLIFIED, [id number] 00:00:00 Test Item Value Reference Range Interpretation Comments GONORRHEA, NAAT (test code = 10804) NEGATIVE GC, AMPLIFIED, [id number] 00:00:00 Test Item Value Reference Range Interpretation Comments GONORRHEA, NAAT (test code = 03734) NEGATIVE HIV AB/AG COMBO RFLX [id number] 00:00:00 Test Item Value Reference Range Interpretation Comments HIV 1/2 4TH GEN, RFLX CONF (test NON-REACTIVE code = 3514) HIV AB/AG COMBO RFLX [id number] 00:00:00 Test Item Value Reference Range Interpretation Comments HIV 1/2 4TH GEN, RFLX CONF (test NON-REACTIVE code = 3514) [id number] 00:00:00 Test Item Value Reference Range Interpretation Comments RPR RESULT (test code = NON-REACTIVE 3501) RPR TITER (test code = 3500) NOT INDIC. TITER [id number] 00:00:00 Test Item Value Reference Range Interpretation Comments RPR RESULT (test code = NON-REACTIVE 3501) RPR TITER (test code = 3500) NOT INDIC. TITER [id number] 00:00:00 Test Item Value Reference Range Interpretation Comments RPR RESULT (test code = NON-REACTIVE 3501) RPR TITER (test code = 3500) NOT INDIC. TITER ACUTE HEPATITIS [id number] 00:00:00 Test Item Value Reference Range Interpretation Comments HEPATITIS A IgM (test code = NON-REACTIVE 57733) HEPATITIS B CORE IgM (test code NON-REACTIVE = 4644) HEPATITIS B SURF AG (test code = NON-REACTIVE 2739) HEPATITIS C ANTIBODY (test code NON-REACTIVE = 4675) INTERPRETATION HEPATITIS A: (NOTE) (test code = 2552) INTERPRETATION HEPATITIS B: (NOTE) (test code = 20513) INTERPRETATION HEPATITIS C: (NOTE) (test code = 61679) ACUTE HEPATITIS [id number] 00:00:00 Test Item Value Reference Range Interpretation Comments HEPATITIS A IgM (test code = NON-REACTIVE 80561) HEPATITIS B CORE IgM (test code NON-REACTIVE = 4644) HEPATITIS B SURF AG (test code = NON-REACTIVE 2739) HEPATITIS C ANTIBODY (test code NON-REACTIVE = 4675) INTERPRETATION HEPATITIS A: (NOTE) (test code = 2552) INTERPRETATION HEPATITIS B: (NOTE) (test code = 36266) INTERPRETATION HEPATITIS C: (NOTE) (test code = 85815) CHLAMYDIA, AMPLIFIED, [id number] 00:00:00 Test Item Value Reference Range Interpretation Comments CHLAMYDIA, NAAT (test code = 88960) NEGATIVE CHLAMYDIA, AMPLIFIED, [id number] 00:00:00 Test Item Value Reference Range Interpretation Comments CHLAMYDIA, NAAT (test code = 82156) NEGATIVE CHLAMYDIA, AMPLIFIED, [id number] 00:00:00 Test Item Value Reference Range Interpretation Comments CHLAMYDIA, NAAT (test code = 96529) NEGATIVE CHLAMYDIA, AMPLIFIED, [id number] 00:00:00 Test Item Value Reference Range Interpretation Comments CHLAMYDIA, NAAT (test code = 11155) NEGATIVE GC, AMPLIFIED, [id number] 00:00:00 Test Item Value Reference Range Interpretation Comments GONORRHEA, NAAT (test code = 26061) NEGATIVE GC, AMPLIFIED, [id number] 00:00:00 Test Item Value Reference Range Interpretation Comments GONORRHEA, NAAT (test code = 93356) NEGATIVE GC, AMPLIFIED, [id number] 00:00:00 Test Item Value Reference Range Interpretation Comments GONORRHEA, NAAT (test code = 30200) NEGATIVE GC, AMPLIFIED, [id number] 00:00:00 Test Item Value Reference Range Interpretation Comments GONORRHEA, NAAT (test code = 82870) NEGATIVE HIV AB/AG COMBO RFLX [id number] 00:00:00 Test Item Value Reference Range Interpretation Comments HIV 1/2 4TH GEN, RFLX CONF (test NON-REACTIVE code = 3514) HIV AB/AG COMBO RFLX [id number] 00:00:00 Test Item Value Reference Range Interpretation Comments HIV 1/2 4TH GEN, RFLX CONF (test NON-REACTIVE code = 3514) [id number] 00:00:00 Test Item Value Reference Range Interpretation Comments RPR RESULT (test code = NON-REACTIVE 3501) RPR TITER (test code = 3500) NOT INDIC. TITER [id number] 00:00:00 Test Item Value Reference Range Interpretation Comments RPR RESULT (test code = NON-REACTIVE 3501) RPR TITER (test code = 3500) NOT INDIC. TITER [id number] 00:00:00 Test Item Value Reference Range Interpretation Comments RPR RESULT (test code = NON-REACTIVE 3501) RPR TITER (test code = 3500) NOT INDIC. TITER ACUTE HEPATITIS [id number] 00:00:00 Test Item Value Reference Range Interpretation Comments HEPATITIS A IgM (test code = NON-REACTIVE 38546) HEPATITIS B CORE IgM (test code NON-REACTIVE = 4644) HEPATITIS B SURF AG (test code = NON-REACTIVE 2739) HEPATITIS C ANTIBODY (test code NON-REACTIVE = 4675) INTERPRETATION HEPATITIS A: (NOTE) (test code = 2552) INTERPRETATION HEPATITIS B: (NOTE) (test code = 61427) INTERPRETATION HEPATITIS C: (NOTE) (test code = 81701) ACUTE HEPATITIS [id number] 00:00:00 Test Item Value Reference Range Interpretation Comments HEPATITIS A IgM (test code = NON-REACTIVE 60069) HEPATITIS B CORE IgM (test code NON-REACTIVE = 4644) HEPATITIS B SURF AG (test code = NON-REACTIVE 2739) HEPATITIS C ANTIBODY (test code NON-REACTIVE = 4675) INTERPRETATION HEPATITIS A: (NOTE) (test code = 2552) INTERPRETATION HEPATITIS B: (NOTE) (test code = 13937) INTERPRETATION HEPATITIS C: (NOTE) (test code = 25437) CHLAMYDIA, AMPLIFIED, [id number] 00:00:00 Test Item Value Reference Range Interpretation Comments CHLAMYDIA, NAAT (test code = 46112) NEGATIVE CHLAMYDIA, AMPLIFIED, [id number] 00:00:00 Test Item Value Reference Range Interpretation Comments CHLAMYDIA, NAAT (test code = 66935) NEGATIVE CHLAMYDIA, AMPLIFIED, [id number] 00:00:00 Test Item Value Reference Range Interpretation Comments CHLAMYDIA, NAAT (test code = 05500) NEGATIVE CHLAMYDIA, AMPLIFIED, [id number] 00:00:00 Test Item Value Reference Range Interpretation Comments CHLAMYDIA, NAAT (test code = 93281) NEGATIVE GC, AMPLIFIED, [id number] 00:00:00 Test Item Value Reference Range Interpretation Comments GONORRHEA, NAAT (test code = 99446) NEGATIVE GC, AMPLIFIED, [id number] 00:00:00 Test Item Value Reference Range Interpretation Comments GONORRHEA, NAAT (test code = 62400) NEGATIVE GC, AMPLIFIED, [id number] 00:00:00 Test Item Value Reference Range Interpretation Comments GONORRHEA, NAAT (test code = 11807) NEGATIVE GC, AMPLIFIED, [id number] 00:00:00 Test Item Value Reference Range Interpretation Comments GONORRHEA, NAAT (test code = 89113) NEGATIVE HIV AB/AG COMBO RFLX [id number] 00:00:00 Test Item Value Reference Range Interpretation Comments HIV 1/2 4TH GEN, RFLX CONF (test NON-REACTIVE code = 3514) HIV AB/AG COMBO RFLX [id number] 00:00:00 Test Item Value Reference Range Interpretation Comments HIV 1/2 4TH GEN, RFLX CONF (test NON-REACTIVE code = 3514) [id number] 00:00:00 Test Item Value Reference Range Interpretation Comments RPR RESULT (test code = NON-REACTIVE 3501) RPR TITER (test code = 3500) NOT INDIC. TITER [id number] 00:00:00 Test Item Value Reference Range Interpretation Comments RPR RESULT (test code = NON-REACTIVE 3501) RPR TITER (test code = 3500) NOT INDIC. TITER [id number] 00:00:00 Test Item Value Reference Range Interpretation Comments RPR RESULT (test code = NON-REACTIVE 3501) RPR TITER (test code = 3500) NOT INDIC. TITER ACUTE HEPATITIS [id number] 00:00:00 Test Item Value Reference Range Interpretation Comments HEPATITIS A IgM (test code = NON-REACTIVE 99034) HEPATITIS B CORE IgM (test code NON-REACTIVE = 4644) HEPATITIS B SURF AG (test code = NON-REACTIVE 2739) HEPATITIS C ANTIBODY (test code NON-REACTIVE = 4675) INTERPRETATION HEPATITIS A: (NOTE) (test code = 2552) INTERPRETATION HEPATITIS B: (NOTE) (test code = 43151) INTERPRETATION HEPATITIS C: (NOTE) (test code = 42958) ACUTE HEPATITIS [id number] 00:00:00 Test Item Value Reference Range Interpretation Comments HEPATITIS A IgM (test code = NON-REACTIVE 12103) HEPATITIS B CORE IgM (test code NON-REACTIVE = 4644) HEPATITIS B SURF AG (test code = NON-REACTIVE 2739) HEPATITIS C ANTIBODY (test code NON-REACTIVE = 4675) INTERPRETATION HEPATITIS A: (NOTE) (test code = 2552) INTERPRETATION HEPATITIS B: (NOTE) (test code = 24714) INTERPRETATION HEPATITIS C: (NOTE) (test code = 68054) CHLAMYDIA, AMPLIFIED, [id number] 00:00:00 Test Item Value Reference Range Interpretation Comments CHLAMYDIA, NAAT (test code = 99466) NEGATIVE CHLAMYDIA, AMPLIFIED, [id number] 00:00:00 Test Item Value Reference Range Interpretation Comments CHLAMYDIA, NAAT (test code = 42495) NEGATIVE CHLAMYDIA, AMPLIFIED, [id number] 00:00:00 Test Item Value Reference Range Interpretation Comments CHLAMYDIA, NAAT (test code = 64790) NEGATIVE CHLAMYDIA, AMPLIFIED, [id number] 00:00:00 Test Item Value Reference Range Interpretation Comments CHLAMYDIA, NAAT (test code = 48375) NEGATIVE CHLAMYDIA, AMPLIFIED, [id number] 00:00:00 Test Item Value Reference Range Interpretation Comments CHLAMYDIA, NAAT (test code = 68277) NEGATIVE CHLAMYDIA, AMPLIFIED, [id number] 00:00:00 Test Item Value Reference Range Interpretation Comments CHLAMYDIA, NAAT (test code = 93179) NEGATIVE GC, AMPLIFIED, [id number] 00:00:00 Test Item Value Reference Range Interpretation Comments GONORRHEA, NAAT (test code = 68012) NEGATIVE GC, AMPLIFIED, [id number] 00:00:00 Test Item Value Reference Range Interpretation Comments GONORRHEA, NAAT (test code = 17955) NEGATIVE GC, AMPLIFIED, [id number] 00:00:00 Test Item Value Reference Range Interpretation Comments GONORRHEA, NAAT (test code = 61686) NEGATIVE GC, AMPLIFIED, [id number] 00:00:00 Test Item Value Reference Range Interpretation Comments GONORRHEA, NAAT (test code = 62365) NEGATIVE HIV AB/AG COMBO RFLX [id number] 00:00:00 Test Item Value Reference Range Interpretation Comments HIV 1/2 4TH GEN, RFLX CONF (test NON-REACTIVE code = 3514) HIV AB/AG COMBO RFLX [id number] 00:00:00 Test Item Value Reference Range Interpretation Comments HIV 1/2 4TH GEN, RFLX CONF (test NON-REACTIVE code = 3514) [id number] 00:00:00 Test Item Value Reference Range Interpretation Comments RPR RESULT (test code = NON-REACTIVE 3501) RPR TITER (test code = 3500) NOT INDIC. TITER [id number] 00:00:00 Test Item Value Reference Range Interpretation Comments RPR RESULT (test code = NON-REACTIVE 3501) RPR TITER (test code = 3500) NOT INDIC. TITER [id number] 00:00:00 Test Item Value Reference Range Interpretation Comments RPR RESULT (test code = NON-REACTIVE 3501) RPR TITER (test code = 3500) NOT INDIC. TITER ACUTE HEPATITIS [id number] 00:00:00 Test Item Value Reference Range Interpretation Comments HEPATITIS A IgM (test code = NON-REACTIVE 82469) HEPATITIS B CORE IgM (test code NON-REACTIVE = 4644) HEPATITIS B SURF AG (test code = NON-REACTIVE 2739) HEPATITIS C ANTIBODY (test code NON-REACTIVE = 4675) INTERPRETATION HEPATITIS A: (NOTE) (test code = 2552) INTERPRETATION HEPATITIS B: (NOTE) (test code = 95877) INTERPRETATION HEPATITIS C: (NOTE) (test code = 76056) ACUTE HEPATITIS [id number] 00:00:00 Test Item Value Reference Range Interpretation Comments HEPATITIS A IgM (test code = NON-REACTIVE 04493) HEPATITIS B CORE IgM (test code NON-REACTIVE = 4644) HEPATITIS B SURF AG (test code = NON-REACTIVE 2739) HEPATITIS C ANTIBODY (test code NON-REACTIVE = 4675) INTERPRETATION HEPATITIS A: (NOTE) (test code = 2552) INTERPRETATION HEPATITIS B: (NOTE) (test code = 22667) INTERPRETATION HEPATITIS C: (NOTE) (test code = 45770) GC, AMPLIFIED, [id number] 00:00:00 Test Item Value Reference Range Interpretation Comments GONORRHEA, NAAT (test code = 67892) NEGATIVE GC, AMPLIFIED, [id number] 00:00:00 Test Item Value Reference Range Interpretation Comments GONORRHEA, NAAT (test code = 09043) NEGATIVE HIV AB/AG COMBO RFLX [id number] 00:00:00 Test Item Value Reference Range Interpretation Comments HIV 1/2 4TH GEN, RFLX CONF (test NON-REACTIVE code = 3514) CHLAMYDIA, AMPLIFIED, [id number] 00:00:00 Test Item Value Reference Range Interpretation Comments CHLAMYDIA, NAAT (test code = 91289) NEGATIVE [id number] 00:00:00 Test Item Value Reference Range Interpretation Comments RPR RESULT (test code = NON-REACTIVE 3501) RPR TITER (test code = 3500) NOT INDIC. TITER CHLAMYDIA, AMPLIFIED, [id number] 00:00:00 Test Item Value Reference Range Interpretation Comments CHLAMYDIA, NAAT (test code = 81868) NEGATIVE CHLAMYDIA, AMPLIFIED, [id number] 00:00:00 Test Item Value Reference Range Interpretation Comments CHLAMYDIA, NAAT (test code = 26797) NEGATIVE [id number] 00:00:00 Test Item Value Reference Range Interpretation Comments RPR RESULT (test code = NON-REACTIVE 3501) RPR TITER (test code = 3500) NOT INDIC. TITER CHLAMYDIA, AMPLIFIED, [id number] 00:00:00 Test Item Value Reference Range Interpretation Comments CHLAMYDIA, NAAT (test code = 03502) NEGATIVE GC, AMPLIFIED, [id number] 00:00:00 Test Item Value Reference Range Interpretation Comments GONORRHEA, NAAT (test code = 03004) NEGATIVE GC, AMPLIFIED, [id number] 00:00:00 Test Item Value Reference Range Interpretation Comments GONORRHEA, NAAT (test code = 47046) NEGATIVE GC, AMPLIFIED, [id number] 00:00:00 Test Item Value Reference Range Interpretation Comments GONORRHEA, NAAT (test code = 63647) NEGATIVE GC, AMPLIFIED, [id number] 00:00:00 Test Item Value Reference Range Interpretation Comments GONORRHEA, NAAT (test code = 74548) NEGATIVE HIV AB/AG COMBO RFLX [id number] 00:00:00 Test Item Value Reference Range Interpretation Comments HIV 1/2 4TH GEN, RFLX CONF (test NON-REACTIVE code = 3514) ACUTE HEPATITIS [id number] 00:00:00 Test Item Value Reference Range Interpretation Comments HEPATITIS A IgM (test code = NON-REACTIVE 23488) HEPATITIS B CORE IgM (test code NON-REACTIVE = 4644) HEPATITIS B SURF AG (test code = NON-REACTIVE 6189) HEPATITIS C ANTIBODY (test code NON-REACTIVE = 6097) INTERPRETATION HEPATITIS A: (NOTE) (test code = 2552) INTERPRETATION HEPATITIS B: (NOTE) (test code = 59433) INTERPRETATION HEPATITIS C: (NOTE) (test code = 85623) HIV AB/AG COMBO RFLX [id number] 00:00:00 Test Item Value Reference Range Interpretation Comments HIV 1/2 4TH GEN, RFLX CONF (test NON-REACTIVE code = 3514) [id number] 00:00:00 Test Item Value Reference Range Interpretation Comments RPR RESULT (test code = NON-REACTIVE 3501) RPR TITER (test code = 3500) NOT INDIC. TITER [id number] 00:00:00 Test Item Value Reference Range Interpretation Comments RPR RESULT (test code = NON-REACTIVE 3501) RPR TITER (test code = 3500) NOT INDIC. TITER [id number] 00:00:00 Test Item Value Reference Range Interpretation Comments RPR RESULT (test code = NON-REACTIVE 3501) RPR TITER (test code = 3500) NOT INDIC. TITER ACUTE HEPATITIS [id number] 00:00:00 Test Item Value Reference Range Interpretation Comments HEPATITIS A IgM (test code = NON-REACTIVE 11753) HEPATITIS B CORE IgM (test code NON-REACTIVE = 4644) HEPATITIS B SURF AG (test code = NON-REACTIVE 2739) HEPATITIS C ANTIBODY (test code NON-REACTIVE = 4675) INTERPRETATION HEPATITIS A: (NOTE) (test code = 2552) INTERPRETATION HEPATITIS B: (NOTE) (test code = 26146) INTERPRETATION HEPATITIS C: (NOTE) (test code = 25228) ACUTE HEPATITIS [id number] 00:00:00 Test Item Value Reference Range Interpretation Comments HEPATITIS A IgM (test code = NON-REACTIVE 11012) HEPATITIS B CORE IgM (test code NON-REACTIVE = 4644) HEPATITIS B SURF AG (test code = NON-REACTIVE 2739) HEPATITIS C ANTIBODY (test code NON-REACTIVE = 4675) INTERPRETATION HEPATITIS A: (NOTE) (test code = 2552) INTERPRETATION HEPATITIS B: (NOTE) (test code = 28912) INTERPRETATION HEPATITIS C: (NOTE) (test code = 57186) CHLAMYDIA, AMPLIFIED, [id number] 00:00:00 Test Item Value Reference Range Interpretation Comments CHLAMYDIA, NAAT (test code = 30358) NEGATIVE CHLAMYDIA, AMPLIFIED, [id number] 00:00:00 Test Item Value Reference Range Interpretation Comments CHLAMYDIA, NAAT (test code = 39905) NEGATIVE CHLAMYDIA, AMPLIFIED, [id number] 00:00:00 Test Item Value Reference Range Interpretation Comments CHLAMYDIA, NAAT (test code = 80252) NEGATIVE CHLAMYDIA, AMPLIFIED, [id number] 00:00:00 Test Item Value Reference Range Interpretation Comments CHLAMYDIA, NAAT (test code = 62939) NEGATIVE GC, AMPLIFIED, [id number] 00:00:00 Test Item Value Reference Range Interpretation Comments GONORRHEA, NAAT (test code = 15267) NEGATIVE GC, AMPLIFIED, [id number] 00:00:00 Test Item Value Reference Range Interpretation Comments GONORRHEA, NAAT (test code = 44655) NEGATIVE GC, AMPLIFIED, [id number] 00:00:00 Test Item Value Reference Range Interpretation Comments GONORRHEA, NAAT (test code = 13475) NEGATIVE GC, AMPLIFIED, [id number] 00:00:00 Test Item Value Reference Range Interpretation Comments GONORRHEA, NAAT (test code = 13233) NEGATIVE HIV AB/AG COMBO RFLX [id number] 00:00:00 Test Item Value Reference Range Interpretation Comments HIV 1/2 4TH GEN, RFLX CONF (test NON-REACTIVE code = 3514) HIV AB/AG COMBO RFLX [id number] 00:00:00 Test Item Value Reference Range Interpretation Comments HIV 1/2 4TH GEN, RFLX CONF (test NON-REACTIVE code = 3514) [id number] 00:00:00 Test Item Value Reference Range Interpretation Comments RPR RESULT (test code = NON-REACTIVE 3501) RPR TITER (test code = 3500) NOT INDIC. TITER [id number] 00:00:00 Test Item Value Reference Range Interpretation Comments RPR RESULT (test code = NON-REACTIVE 3501) RPR TITER (test code = 3500) NOT INDIC. TITER [id number] 00:00:00 Test Item Value Reference Range Interpretation Comments RPR RESULT (test code = NON-REACTIVE 3501) RPR TITER (test code = 3500) NOT INDIC. TITER ACUTE HEPATITIS [id number] 00:00:00 Test Item Value Reference Range Interpretation Comments HEPATITIS A IgM (test code = NON-REACTIVE 01658) HEPATITIS B CORE IgM (test code NON-REACTIVE = 4644) HEPATITIS B SURF AG (test code = NON-REACTIVE 2739) HEPATITIS C ANTIBODY (test code NON-REACTIVE = 4675) INTERPRETATION HEPATITIS A: (NOTE) (test code = 2552) INTERPRETATION HEPATITIS B: (NOTE) (test code = 80268) INTERPRETATION HEPATITIS C: (NOTE) (test code = 02325) ACUTE HEPATITIS [id number] 00:00:00 Test Item Value Reference Range Interpretation Comments HEPATITIS A IgM (test code = NON-REACTIVE 56535) HEPATITIS B CORE IgM (test code NON-REACTIVE = 4644) HEPATITIS B SURF AG (test code = NON-REACTIVE 2739) HEPATITIS C ANTIBODY (test code NON-REACTIVE = 4675) INTERPRETATION HEPATITIS A: (NOTE) (test code = 2552) INTERPRETATION HEPATITIS B: (NOTE) (test code = 73023) INTERPRETATION HEPATITIS C: (NOTE) (test code = 63293) CULTURE, [id number] 00:00:00 Test Item Value Reference Range Interpretation Comments CULTURE, URINE (test SPECIMEN NUMBER: code = 49897) [id number] CULTURE, [id number] 00:00:00 Test Item Value Reference Range Interpretation Comments CULTURE, URINE (test SPECIMEN NUMBER: code = 72516) [id number] CULTURE, [id number] 00:00:00 Test Item Value Reference Range Interpretation Comments CULTURE, URINE (test SPECIMEN NUMBER: code = 57595) [id number] CULTURE, [id number] 00:00:00 Test Item Value Reference Range Interpretation Comments CULTURE, URINE (test SPECIMEN NUMBER: code = 16835) [id number] CULTURE, [id number] 00:00:00 Test Item Value Reference Range Interpretation Comments CULTURE, URINE (test SPECIMEN NUMBER: code = 60866) [id number] CULTURE, [id number] 00:00:00 Test Item Value Reference Range Interpretation Comments CULTURE, URINE (test SPECIMEN NUMBER: code = 13834) [id number] CULTURE, [id number] 00:00:00 Test Item Value Reference Range Interpretation Comments CULTURE, URINE (test SPECIMEN NUMBER: code = 44451) [id number] CULTURE, [id number] 00:00:00 Test Item Value Reference Range Interpretation Comments CULTURE, URINE (test SPECIMEN NUMBER: code = 81155) [id number] CULTURE, [id number] 00:00:00 Test Item Value Reference Range Interpretation Comments CULTURE, URINE (test SPECIMEN NUMBER: code = 89049) [id number] CULTURE, [id number] 00:00:00 Test Item Value Reference Range Interpretation Comments CULTURE, URINE (test SPECIMEN NUMBER: code = 38363) [id number] CULTURE, [id number] 00:00:00 Test Item Value Reference Range Interpretation Comments CULTURE, URINE (test SPECIMEN NUMBER: code = 32027) [id number] CULTURE, [id number] 00:00:00 Test Item Value Reference Range Interpretation Comments CULTURE, URINE (test SPECIMEN NUMBER: code = 97743) [id number] CULTURE, [id number] 00:00:00 Test Item Value Reference Range Interpretation Comments CULTURE, URINE (test SPECIMEN NUMBER: code = 80495) [id number] CULTURE, [id number] 00:00:00 Test Item Value Reference Range Interpretation Comments CULTURE, URINE (test SPECIMEN NUMBER: code = 96243) [id number] CULTURE, [id number] 00:00:00 Test Item Value Reference Range Interpretation Comments CULTURE, URINE (test SPECIMEN NUMBER: code = 55457) [id number] CULTURE, [id number] 00:00:00 Test Item Value Reference Range Interpretation Comments CULTURE, URINE (test SPECIMEN NUMBER: code = 43805) [id number] CULTURE, [id number] 00:00:00 Test Item Value Reference Range Interpretation Comments CULTURE, URINE (test SPECIMEN NUMBER: code = 14027) [id number] CULTURE, [id number] 00:00:00 Test Item Value Reference Range Interpretation Comments CULTURE, URINE (test SPECIMEN NUMBER: code = 67262) [id number] CULTURE, [id number] 00:00:00 Test Item Value Reference Range Interpretation Comments CULTURE, URINE (test SPECIMEN NUMBER: code = 79453) [id number] CULTURE, [id number] 00:00:00 Test Item Value Reference Range Interpretation Comments CULTURE, URINE (test SPECIMEN NUMBER: code = 66786) [id number] CULTURE, [id number] 00:00:00 Test Item Value Reference Range Interpretation Comments CULTURE, URINE (test SPECIMEN NUMBER: code = 11116) [id number] VAGINAL PATHOGENS DNA [id number] 00:00:00 Test Item Value Reference Range Interpretation Comments RAMESH SPECIES (test code = 69255) POSITIVE G. VAGINALIS (test code = 03605) POSITIVE T. VAGINALIS (test code = 50394) NEGATIVE VAGINAL PATHOGENS DNA [id number] 00:00:00 Test Item Value Reference Range Interpretation Comments RAMESH SPECIES (test code = 94870) POSITIVE G. VAGINALIS (test code = 30408) POSITIVE T. VAGINALIS (test code = 98282) NEGATIVE VAGINAL PATHOGENS DNA [id number] 00:00:00 Test Item Value Reference Range Interpretation Comments RAMESH SPECIES (test code = 36849) POSITIVE G. VAGINALIS (test code = 44256) POSITIVE T. VAGINALIS (test code = 86411) NEGATIVE VAGINAL PATHOGENS DNA [id number] 00:00:00 Test Item Value Reference Range Interpretation Comments RAMESH SPECIES (test code = 19572) POSITIVE G. VAGINALIS (test code = 56544) POSITIVE T. VAGINALIS (test code = 42824) NEGATIVE VAGINAL PATHOGENS DNA [id number] 00:00:00 Test Item Value Reference Range Interpretation Comments RAMESH SPECIES (test code = 12373) POSITIVE G. VAGINALIS (test code = 62116) POSITIVE T. VAGINALIS (test code = 92442) NEGATIVE VAGINAL PATHOGENS DNA [id number] 00:00:00 Test Item Value Reference Range Interpretation Comments RAMESH SPECIES (test code = 31013) POSITIVE G. VAGINALIS (test code = 36089) POSITIVE T. VAGINALIS (test code = 86998) NEGATIVE VAGINAL PATHOGENS DNA [id number] 00:00:00 Test Item Value Reference Range Interpretation Comments RAMESH SPECIES (test code = 24114) POSITIVE G. VAGINALIS (test code = 35234) POSITIVE T. VAGINALIS (test code = 55482) NEGATIVE VAGINAL PATHOGENS DNA [id number] 00:00:00 Test Item Value Reference Range Interpretation Comments RAMESH SPECIES (test code = 57733) POSITIVE G. VAGINALIS (test code = 64198) POSITIVE T. VAGINALIS (test code = 86437) NEGATIVE VAGINAL PATHOGENS DNA [id number] 00:00:00 Test Item Value Reference Range Interpretation Comments RAMESH SPECIES (test code = 75847) POSITIVE G. VAGINALIS (test code = 52521) POSITIVE T. VAGINALIS (test code = 87524) NEGATIVE VAGINAL PATHOGENS DNA [id number] 00:00:00 Test Item Value Reference Range Interpretation Comments RAMESH SPECIES (test code = 54115) POSITIVE G. VAGINALIS (test code = 38356) POSITIVE T. VAGINALIS (test code = 70829) NEGATIVE VAGINAL PATHOGENS DNA [id number] 00:00:00 Test Item Value Reference Range Interpretation Comments RAMESH SPECIES (test code = 44652) POSITIVE G. VAGINALIS (test code = 89824) POSITIVE T. VAGINALIS (test code = 64237) NEGATIVE VAGINAL PATHOGENS DNA [id number] 00:00:00 Test Item Value Reference Range Interpretation Comments RAMESH SPECIES (test code = 25989) POSITIVE G. VAGINALIS (test code = 31802) POSITIVE T. VAGINALIS (test code = 68823) NEGATIVE VAGINAL PATHOGENS DNA [id number] 00:00:00 Test Item Value Reference Range Interpretation Comments RAMESH SPECIES (test code = ) POSITIVE G. VAGINALIS (test code = 29618) POSITIVE T. VAGINALIS (test code = 25757) NEGATIVE VAGINAL PATHOGENS DNA [id number] 00:00:00 Test Item Value Reference Range Interpretation Comments RAMESH SPECIES (test code = 33675) POSITIVE G. VAGINALIS (test code = 13124) POSITIVE T. VAGINALIS (test code = 55829) NEGATIVE VAGINAL PATHOGENS DNA [id number] 00:00:00 Test Item Value Reference Range Interpretation Comments RAMESH SPECIES (test code = 89635) POSITIVE G. VAGINALIS (test code = 66859) POSITIVE T. VAGINALIS (test code = 04430) NEGATIVE VAGINAL PATHOGENS DNA [id number] 00:00:00 Test Item Value Reference Range Interpretation Comments RAMESH SPECIES (test code = 23873) POSITIVE G. VAGINALIS (test code = 40971) POSITIVE T. VAGINALIS (test code = 98534) NEGATIVE VAGINAL PATHOGENS DNA [id number] 00:00:00 Test Item Value Reference Range Interpretation Comments RAMESH SPECIES (test code = 28540) POSITIVE G. VAGINALIS (test code = 19755) POSITIVE T. VAGINALIS (test code = 69988) NEGATIVE VAGINAL PATHOGENS DNA [id number] 00:00:00 Test Item Value Reference Range Interpretation Comments RAEMSH SPECIES (test code = 66070) POSITIVE G. VAGINALIS (test code = 39544) POSITIVE T. VAGINALIS (test code = 50654) NEGATIVE VAGINAL PATHOGENS DNA [id number] 00:00:00 Test Item Value Reference Range Interpretation Comments RAMESH SPECIES (test code = ) POSITIVE G. VAGINALIS (test code = 94218) POSITIVE T. VAGINALIS (test code = 65919) NEGATIVE VAGINAL PATHOGENS DNA [id number] 00:00:00 Test Item Value Reference Range Interpretation Comments RAMESH SPECIES (test code = ) POSITIVE G. VAGINALIS (test code = 11817) POSITIVE T. VAGINALIS (test code = 08809) NEGATIVE VAGINAL PATHOGENS DNA [id number] 00:00:00 Test Item Value Reference Range Interpretation Comments RAMESH SPECIES (test code = ) POSITIVE G. VAGINALIS (test code = 89988) POSITIVE T. VAGINALIS (test code = 85533) NEGATIVE CULTURE, [id number] 00:00:00 Test Item Value Reference Range Interpretation Comments CULTURE, URINE (test SPECIMEN NUMBER: code = 95325) [id number] CULTURE, [id number] 00:00:00 Test Item Value Reference Range Interpretation Comments CULTURE, URINE (test SPECIMEN NUMBER: code = 59018) [id number] CULTURE, [id number] 00:00:00 Test Item Value Reference Range Interpretation Comments CULTURE, URINE (test SPECIMEN NUMBER: code = 90231) [id number] CULTURE, [id number] 00:00:00 Test Item Value Reference Range Interpretation Comments CULTURE, URINE (test SPECIMEN NUMBER: code = 76325) [id number] CULTURE, [id number] 00:00:00 Test Item Value Reference Range Interpretation Comments CULTURE, URINE (test SPECIMEN NUMBER: code = 38421) [id number] CULTURE, [id number] 00:00:00 Test Item Value Reference Range Interpretation Comments CULTURE, URINE (test SPECIMEN NUMBER: code = 89195) [id number] CULTURE, [id number] 00:00:00 Test Item Value Reference Range Interpretation Comments CULTURE, URINE (test SPECIMEN NUMBER: code = 19458) [id number] CULTURE, [id number] 00:00:00 Test Item Value Reference Range Interpretation Comments CULTURE, URINE (test SPECIMEN NUMBER: code = 50269) [id number] CULTURE, [id number] 00:00:00 Test Item Value Reference Range Interpretation Comments CULTURE, URINE (test SPECIMEN NUMBER: code = 75116) [id number] CULTURE, [id number] 00:00:00 Test Item Value Reference Range Interpretation Comments CULTURE, URINE (test SPECIMEN NUMBER: code = 66392) [id number] CULTURE, [id number] 00:00:00 Test Item Value Reference Range Interpretation Comments CULTURE, URINE (test SPECIMEN NUMBER: code = 41185) [id number] CULTURE, [id number] 00:00:00 Test Item Value Reference Range Interpretation Comments CULTURE, URINE (test SPECIMEN NUMBER: code = 04787) [id number] CULTURE, [id number] 00:00:00 Test Item Value Reference Range Interpretation Comments CULTURE, URINE (test SPECIMEN NUMBER: code = 47034) [id number] CULTURE, [id number] 00:00:00 Test Item Value Reference Range Interpretation Comments CULTURE, URINE (test SPECIMEN NUMBER: code = 95147) [id number] CULTURE, [id number] 00:00:00 Test Item Value Reference Range Interpretation Comments CULTURE, URINE (test SPECIMEN NUMBER: code = 64123) [id number] CULTURE, [id number] 00:00:00 Test Item Value Reference Range Interpretation Comments CULTURE, URINE (test SPECIMEN NUMBER: code = 19628) [id number] CULTURE, [id number] 00:00:00 Test Item Value Reference Range Interpretation Comments CULTURE, URINE (test SPECIMEN NUMBER: code = 90217) [id number] CULTURE, [id number] 00:00:00 Test Item Value Reference Range Interpretation Comments CULTURE, URINE (test SPECIMEN NUMBER: code = 94462) [id number] CULTURE, [id number] 00:00:00 Test Item Value Reference Range Interpretation Comments CULTURE, URINE (test SPECIMEN NUMBER: code = 90304) [id number] CULTURE, [id number] 00:00:00 Test Item Value Reference Range Interpretation Comments CULTURE, URINE (test SPECIMEN NUMBER: code = 15739) [id number] CULTURE, [id number] 00:00:00 Test Item Value Reference Range Interpretation Comments CULTURE, URINE (test SPECIMEN NUMBER: code = 80526) [id number] GC AND CHLAMYDIA, AMPLIFIED, [id number] 00:00:00 Test Item Value Reference Range Interpretation Comments GONORRHEA, TMA (test code = 77372) NEGATIVE CHLAMYDIA, TMA (test code = 33096) NEGATIVE GC AND CHLAMYDIA, AMPLIFIED, [id number] 00:00:00 Test Item Value Reference Range Interpretation Comments GONORRHEA, TMA (test code = 60243) NEGATIVE CHLAMYDIA, TMA (test code = 47305) NEGATIVE GC AND CHLAMYDIA, AMPLIFIED, [id number] 00:00:00 Test Item Value Reference Range Interpretation Comments GONORRHEA, TMA (test code = 62092) NEGATIVE CHLAMYDIA, TMA (test code = 29171) NEGATIVE GC AND CHLAMYDIA, AMPLIFIED, [id number] 00:00:00 Test Item Value Reference Range Interpretation Comments GONORRHEA, TMA (test code = 95919) NEGATIVE CHLAMYDIA, TMA (test code = 41442) NEGATIVE GC AND CHLAMYDIA, AMPLIFIED, [id number] 00:00:00 Test Item Value Reference Range Interpretation Comments GONORRHEA, TMA (test code = 81414) NEGATIVE CHLAMYDIA, TMA (test code = 31768) NEGATIVE GC AND CHLAMYDIA, AMPLIFIED, [id number] 00:00:00 Test Item Value Reference Range Interpretation Comments GONORRHEA, TMA (test code = 30812) NEGATIVE CHLAMYDIA, TMA (test code = 27697) NEGATIVE GC AND CHLAMYDIA, AMPLIFIED, [id number] 00:00:00 Test Item Value Reference Range Interpretation Comments GONORRHEA, TMA (test code = 51328) NEGATIVE CHLAMYDIA, TMA (test code = 24651) NEGATIVE GC AND CHLAMYDIA, AMPLIFIED, [id number] 00:00:00 Test Item Value Reference Range Interpretation Comments GONORRHEA, TMA (test code = 22192) NEGATIVE CHLAMYDIA, TMA (test code = 66517) NEGATIVE GC AND CHLAMYDIA, AMPLIFIED, [id number] 00:00:00 Test Item Value Reference Range Interpretation Comments GONORRHEA, TMA (test code = 71399) NEGATIVE CHLAMYDIA, TMA (test code = 37476) NEGATIVE GC AND CHLAMYDIA, AMPLIFIED, [id number] 00:00:00 Test Item Value Reference Range Interpretation Comments GONORRHEA, TMA (test code = 16652) NEGATIVE CHLAMYDIA, TMA (test code = 58515) NEGATIVE GC AND CHLAMYDIA, AMPLIFIED, [id number] 00:00:00 Test Item Value Reference Range Interpretation Comments GONORRHEA, TMA (test code = 09727) NEGATIVE CHLAMYDIA, TMA (test code = 82306) NEGATIVE GC AND CHLAMYDIA, AMPLIFIED, [id number] 00:00:00 Test Item Value Reference Range Interpretation Comments GONORRHEA, TMA (test code = 97019) NEGATIVE CHLAMYDIA, TMA (test code = 33699) NEGATIVE GC AND CHLAMYDIA, AMPLIFIED, [id number] 00:00:00 Test Item Value Reference Range Interpretation Comments GONORRHEA, TMA (test code = 35669) NEGATIVE CHLAMYDIA, TMA (test code = 71819) NEGATIVE GC AND CHLAMYDIA, AMPLIFIED, [id number] 00:00:00 Test Item Value Reference Range Interpretation Comments GONORRHEA, TMA (test code = 53168) NEGATIVE CHLAMYDIA, TMA (test code = 29809) NEGATIVE GC AND CHLAMYDIA, AMPLIFIED, [id number] 00:00:00 Test Item Value Reference Range Interpretation Comments GONORRHEA, TMA (test code = 70409) NEGATIVE CHLAMYDIA, TMA (test code = 90933) NEGATIVE GC AND CHLAMYDIA, AMPLIFIED, [id number] 00:00:00 Test Item Value Reference Range Interpretation Comments GONORRHEA, TMA (test code = 35210) NEGATIVE CHLAMYDIA, TMA (test code = 90483) NEGATIVE GC AND CHLAMYDIA, AMPLIFIED, [id number] 00:00:00 Test Item Value Reference Range Interpretation Comments GONORRHEA, TMA (test code = 69678) NEGATIVE CHLAMYDIA, TMA (test code = 32788) NEGATIVE GC AND CHLAMYDIA, AMPLIFIED, [id number] 00:00:00 Test Item Value Reference Range Interpretation Comments GONORRHEA, TMA (test code = 49200) NEGATIVE CHLAMYDIA, TMA (test code = 13519) NEGATIVE GC AND CHLAMYDIA, AMPLIFIED, [id number] 00:00:00 Test Item Value Reference Range Interpretation Comments GONORRHEA, TMA (test code = 28411) NEGATIVE CHLAMYDIA, TMA (test code = 02782) NEGATIVE GC AND CHLAMYDIA, AMPLIFIED, [id number] 00:00:00 Test Item Value Reference Range Interpretation Comments GONORRHEA, TMA (test code = 48637) NEGATIVE CHLAMYDIA, TMA (test code = 84982) NEGATIVE GC AND CHLAMYDIA, AMPLIFIED, [id number] 00:00:00 Test Item Value Reference Range Interpretation Comments GONORRHEA, TMA (test code = 94550) NEGATIVE CHLAMYDIA, TMA (test code = 62687) NEGATIVE VAGINAL PATHOGENS DNA [id number] 00:00:00 Test Item Value Reference Range Interpretation Comments RAMESH SPECIES (test code = 58106) NEGATIVE G. VAGINALIS (test code = 47732) POSITIVE T. VAGINALIS (test code = 63265) NEGATIVE VAGINAL PATHOGENS DNA [id number] 00:00:00 Test Item Value Reference Range Interpretation Comments RAMESH SPECIES (test code = 01684) NEGATIVE G. VAGINALIS (test code = 09239) POSITIVE T. VAGINALIS (test code = 38930) NEGATIVE VAGINAL PATHOGENS DNA [id number] 00:00:00 Test Item Value Reference Range Interpretation Comments RAMESH SPECIES (test code = 90793) NEGATIVE G. VAGINALIS (test code = 21895) POSITIVE T. VAGINALIS (test code = 19388) NEGATIVE VAGINAL PATHOGENS DNA [id number] 00:00:00 Test Item Value Reference Range Interpretation Comments RAMESH SPECIES (test code = 95942) NEGATIVE G. VAGINALIS (test code = 53966) POSITIVE T. VAGINALIS (test code = 09617) NEGATIVE VAGINAL PATHOGENS DNA [id number] 00:00:00 Test Item Value Reference Range Interpretation Comments RAMESH SPECIES (test code = 19776) NEGATIVE G. VAGINALIS (test code = 59975) POSITIVE T. VAGINALIS (test code = 78643) NEGATIVE VAGINAL PATHOGENS DNA [id number] 00:00:00 Test Item Value Reference Range Interpretation Comments RAMESH SPECIES (test code = 69541) NEGATIVE G. VAGINALIS (test code = 26488) POSITIVE T. VAGINALIS (test code = 10890) NEGATIVE VAGINAL PATHOGENS DNA [id number] 00:00:00 Test Item Value Reference Range Interpretation Comments RAMESH SPECIES (test code = 21107) NEGATIVE G. VAGINALIS (test code = 31968) POSITIVE T. VAGINALIS (test code = 51325) NEGATIVE VAGINAL PATHOGENS DNA [id number] 00:00:00 Test Item Value Reference Range Interpretation Comments RAMESH SPECIES (test code = 33648) NEGATIVE G. VAGINALIS (test code = 62527) POSITIVE T. VAGINALIS (test code = 82055) NEGATIVE VAGINAL PATHOGENS DNA [id number] 00:00:00 Test Item Value Reference Range Interpretation Comments RAMESH SPECIES (test code = 46294) NEGATIVE G. VAGINALIS (test code = 75411) POSITIVE T. VAGINALIS (test code = 78261) NEGATIVE VAGINAL PATHOGENS DNA [id number] 00:00:00 Test Item Value Reference Range Interpretation Comments RAMESH SPECIES (test code = 57506) NEGATIVE G. VAGINALIS (test code = 93119) POSITIVE T. VAGINALIS (test code = 19814) NEGATIVE VAGINAL PATHOGENS DNA [id number] 00:00:00 Test Item Value Reference Range Interpretation Comments RAMESH SPECIES (test code = 50124) NEGATIVE G. VAGINALIS (test code = 57051) POSITIVE T. VAGINALIS (test code = 55215) NEGATIVE VAGINAL PATHOGENS DNA [id number] 00:00:00 Test Item Value Reference Range Interpretation Comments RAMESH SPECIES (test code = 41772) NEGATIVE G. VAGINALIS (test code = 59973) POSITIVE T. VAGINALIS (test code = 99848) NEGATIVE VAGINAL PATHOGENS DNA [id number] 00:00:00 Test Item Value Reference Range Interpretation Comments RAMESH SPECIES (test code = 22841) NEGATIVE G. VAGINALIS (test code = 28689) POSITIVE T. VAGINALIS (test code = 58980) NEGATIVE VAGINAL PATHOGENS DNA [id number] 00:00:00 Test Item Value Reference Range Interpretation Comments RAMESH SPECIES (test code = 03365) NEGATIVE G. VAGINALIS (test code = 27609) POSITIVE T. VAGINALIS (test code = 51925) NEGATIVE VAGINAL PATHOGENS DNA [id number] 00:00:00 Test Item Value Reference Range Interpretation Comments RAMESH SPECIES (test code = 19469) NEGATIVE G. VAGINALIS (test code = 64396) POSITIVE T. VAGINALIS (test code = 38124) NEGATIVE VAGINAL PATHOGENS DNA [id number] 00:00:00 Test Item Value Reference Range Interpretation Comments RAMESH SPECIES (test code = 84640) NEGATIVE G. VAGINALIS (test code = 41935) POSITIVE T. VAGINALIS (test code = 17905) NEGATIVE VAGINAL PATHOGENS DNA [id number] 00:00:00 Test Item Value Reference Range Interpretation Comments RAMESH SPECIES (test code = 39193) NEGATIVE G. VAGINALIS (test code = 08805) POSITIVE T. VAGINALIS (test code = 56375) NEGATIVE VAGINAL PATHOGENS DNA [id number] 00:00:00 Test Item Value Reference Range Interpretation Comments RAMESH SPECIES (test code = ) NEGATIVE G. VAGINALIS (test code = 94509) POSITIVE T. VAGINALIS (test code = 43478) NEGATIVE VAGINAL PATHOGENS DNA [id number] 00:00:00 Test Item Value Reference Range Interpretation Comments RAMESH SPECIES (test code = 44842) NEGATIVE G. VAGINALIS (test code = 75649) POSITIVE T. VAGINALIS (test code = 00397) NEGATIVE VAGINAL PATHOGENS DNA [id number] 00:00:00 Test Item Value Reference Range Interpretation Comments RAMESH SPECIES (test code = 42131) NEGATIVE G. VAGINALIS (test code = 65839) POSITIVE T. VAGINALIS (test code = 25066) NEGATIVE VAGINAL PATHOGENS DNA [id number] 00:00:00 Test Item Value Reference Range Interpretation Comments RAMESH SPECIES (test code = 16891) NEGATIVE G. VAGINALIS (test code = 56029) POSITIVE T. VAGINALIS (test code = 47527) NEGATIVE GC AND CHLAMYDIA, AMPLIFIED, [id number] 00:00:00 Test Item Value Reference Range Interpretation Comments GONORRHEA, TMA (test code = 55586) NEGATIVE CHLAMYDIA, TMA (test code = 50501) NEGATIVE GC AND CHLAMYDIA, AMPLIFIED, [id number] 00:00:00 Test Item Value Reference Range Interpretation Comments GONORRHEA, TMA (test code = 75878) NEGATIVE CHLAMYDIA, TMA (test code = 55805) NEGATIVE GC AND CHLAMYDIA, AMPLIFIED, [id number] 00:00:00 Test Item Value Reference Range Interpretation Comments GONORRHEA, TMA (test code = 79696) NEGATIVE CHLAMYDIA, TMA (test code = 49542) NEGATIVE GC AND CHLAMYDIA, AMPLIFIED, [id number] 00:00:00 Test Item Value Reference Range Interpretation Comments GONORRHEA, TMA (test code = 03750) NEGATIVE CHLAMYDIA, TMA (test code = 49424) NEGATIVE GC AND CHLAMYDIA, AMPLIFIED, [id number] 00:00:00 Test Item Value Reference Range Interpretation Comments GONORRHEA, TMA (test code = 26575) NEGATIVE CHLAMYDIA, TMA (test code = 41752) NEGATIVE GC AND CHLAMYDIA, AMPLIFIED, [id number] 00:00:00 Test Item Value Reference Range Interpretation Comments GONORRHEA, TMA (test code = 05723) NEGATIVE CHLAMYDIA, TMA (test code = 59280) NEGATIVE GC AND CHLAMYDIA, AMPLIFIED, [id number] 00:00:00 Test Item Value Reference Range Interpretation Comments GONORRHEA, TMA (test code = 09980) NEGATIVE CHLAMYDIA, TMA (test code = 25372) NEGATIVE GC AND CHLAMYDIA, AMPLIFIED, [id number] 00:00:00 Test Item Value Reference Range Interpretation Comments GONORRHEA, TMA (test code = 89313) NEGATIVE CHLAMYDIA, TMA (test code = 60789) NEGATIVE GC AND CHLAMYDIA, AMPLIFIED, [id number] 00:00:00 Test Item Value Reference Range Interpretation Comments GONORRHEA, TMA (test code = 52800) NEGATIVE CHLAMYDIA, TMA (test code = 24483) NEGATIVE GC AND CHLAMYDIA, AMPLIFIED, [id number] 00:00:00 Test Item Value Reference Range Interpretation Comments GONORRHEA, TMA (test code = 90838) NEGATIVE CHLAMYDIA, TMA (test code = 63766) NEGATIVE GC AND CHLAMYDIA, AMPLIFIED, [id number] 00:00:00 Test Item Value Reference Range Interpretation Comments GONORRHEA, TMA (test code = 06134) NEGATIVE CHLAMYDIA, TMA (test code = 67075) NEGATIVE GC AND CHLAMYDIA, AMPLIFIED, [id number] 00:00:00 Test Item Value Reference Range Interpretation Comments GONORRHEA, TMA (test code = 92494) NEGATIVE CHLAMYDIA, TMA (test code = 59007) NEGATIVE GC AND CHLAMYDIA, AMPLIFIED, [id number] 00:00:00 Test Item Value Reference Range Interpretation Comments GONORRHEA, TMA (test code = 89681) NEGATIVE CHLAMYDIA, TMA (test code = 61366) NEGATIVE GC AND CHLAMYDIA, AMPLIFIED, [id number] 00:00:00 Test Item Value Reference Range Interpretation Comments GONORRHEA, TMA (test code = 25982) NEGATIVE CHLAMYDIA, TMA (test code = 75100) NEGATIVE GC AND CHLAMYDIA, AMPLIFIED, [id number] 00:00:00 Test Item Value Reference Range Interpretation Comments GONORRHEA, TMA (test code = 26867) NEGATIVE CHLAMYDIA, TMA (test code = 83554) NEGATIVE GC AND CHLAMYDIA, AMPLIFIED, [id number] 00:00:00 Test Item Value Reference Range Interpretation Comments GONORRHEA, TMA (test code = 96279) NEGATIVE CHLAMYDIA, TMA (test code = 75155) NEGATIVE GC AND CHLAMYDIA, AMPLIFIED, [id number] 00:00:00 Test Item Value Reference Range Interpretation Comments GONORRHEA, TMA (test code = 92362) NEGATIVE CHLAMYDIA, TMA (test code = 85525) NEGATIVE GC AND CHLAMYDIA, AMPLIFIED, [id number] 00:00:00 Test Item Value Reference Range Interpretation Comments GONORRHEA, TMA (test code = 35824) NEGATIVE CHLAMYDIA, TMA (test code = 95514) NEGATIVE GC AND CHLAMYDIA, AMPLIFIED, [id number] 00:00:00 Test Item Value Reference Range Interpretation Comments GONORRHEA, TMA (test code = 70808) NEGATIVE CHLAMYDIA, TMA (test code = 24225) NEGATIVE GC AND CHLAMYDIA, AMPLIFIED, [id number] 00:00:00 Test Item Value Reference Range Interpretation Comments GONORRHEA, TMA (test code = 65425) NEGATIVE CHLAMYDIA, TMA (test code = 12200) NEGATIVE GC AND CHLAMYDIA, AMPLIFIED, [id number] 00:00:00 Test Item Value Reference Range Interpretation Comments GONORRHEA, TMA (test code = 67722) NEGATIVE CHLAMYDIA, TMA (test code = 27362) NEGATIVE CULTURE, [id number] 00:00:00 Test Item Value Reference Range Interpretation Comments CULTURE, URINE (test SPECIMEN NUMBER: code = 89348) [id number] CULTURE, [id number] 00:00:00 Test Item Value Reference Range Interpretation Comments CULTURE, URINE (test SPECIMEN NUMBER: code = 43004) [id number] CULTURE, [id number] 00:00:00 Test Item Value Reference Range Interpretation Comments CULTURE, URINE (test SPECIMEN NUMBER: code = 08444) [id number] CULTURE, [id number] 00:00:00 Test Item Value Reference Range Interpretation Comments CULTURE, URINE (test SPECIMEN NUMBER: code = 56067) [id number] CULTURE, [id number] 00:00:00 Test Item Value Reference Range Interpretation Comments CULTURE, URINE (test SPECIMEN NUMBER: code = 41156) [id number] CULTURE, [id number] 00:00:00 Test Item Value Reference Range Interpretation Comments CULTURE, URINE (test SPECIMEN NUMBER: code = 78108) [id number] CULTURE, [id number] 00:00:00 Test Item Value Reference Range Interpretation Comments CULTURE, URINE (test SPECIMEN NUMBER: code = 71263) [id number] CULTURE, [id number] 00:00:00 Test Item Value Reference Range Interpretation Comments CULTURE, URINE (test SPECIMEN NUMBER: code = 99475) [id number] CULTURE, [id number] 00:00:00 Test Item Value Reference Range Interpretation Comments CULTURE, URINE (test SPECIMEN NUMBER: code = 60585) [id number] CULTURE, [id number] 00:00:00 Test Item Value Reference Range Interpretation Comments CULTURE, URINE (test SPECIMEN NUMBER: code = 62906) [id number] CULTURE, [id number] 00:00:00 Test Item Value Reference Range Interpretation Comments CULTURE, URINE (test SPECIMEN NUMBER: code = 53259) [id number] CULTURE, [id number] 00:00:00 Test Item Value Reference Range Interpretation Comments CULTURE, URINE (test SPECIMEN NUMBER: code = 60668) [id number] CULTURE, [id number] 00:00:00 Test Item Value Reference Range Interpretation Comments CULTURE, URINE (test SPECIMEN NUMBER: code = 94888) [id number] CULTURE, [id number] 00:00:00 Test Item Value Reference Range Interpretation Comments CULTURE, URINE (test SPECIMEN NUMBER: code = 20096) [id number] CULTURE, [id number] 00:00:00 Test Item Value Reference Range Interpretation Comments CULTURE, URINE (test SPECIMEN NUMBER: code = 49649) [id number] CULTURE, [id number] 00:00:00 Test Item Value Reference Range Interpretation Comments CULTURE, URINE (test SPECIMEN NUMBER: code = 80139) [id number] CULTURE, [id number] 00:00:00 Test Item Value Reference Range Interpretation Comments CULTURE, URINE (test SPECIMEN NUMBER: code = 00788) [id number] CULTURE, [id number] 00:00:00 Test Item Value Reference Range Interpretation Comments CULTURE, URINE (test SPECIMEN NUMBER: code = 49033) [id number] CULTURE, [id number] 00:00:00 Test Item Value Reference Range Interpretation Comments CULTURE, URINE (test SPECIMEN NUMBER: code = 83876) [id number] CULTURE, [id number] 00:00:00 Test Item Value Reference Range Interpretation Comments CULTURE, URINE (test SPECIMEN NUMBER: code = 08282) [id number] CULTURE, [id number] 00:00:00 Test Item Value Reference Range Interpretation Comments CULTURE, URINE (test SPECIMEN NUMBER: code = 32018) [id number] VAGINAL PATHOGENS DNA [id number] 00:00:00 Test Item Value Reference Range Interpretation Comments RAMESH SPECIES (test code = 02600) NEGATIVE G. VAGINALIS (test code = 21790) POSITIVE T. VAGINALIS (test code = 87414) NEGATIVE VAGINAL PATHOGENS DNA [id number] 00:00:00 Test Item Value Reference Range Interpretation Comments RAMESH SPECIES (test code = 06448) NEGATIVE G. VAGINALIS (test code = 33273) POSITIVE T. VAGINALIS (test code = 19301) NEGATIVE VAGINAL PATHOGENS DNA [id number] 00:00:00 Test Item Value Reference Range Interpretation Comments RAMESH SPECIES (test code = 78462) NEGATIVE G. VAGINALIS (test code = 99440) POSITIVE T. VAGINALIS (test code = 83496) NEGATIVE VAGINAL PATHOGENS DNA [id number] 00:00:00 Test Item Value Reference Range Interpretation Comments RAMESH SPECIES (test code = 63835) NEGATIVE G. VAGINALIS (test code = 20330) POSITIVE T. VAGINALIS (test code = 54856) NEGATIVE VAGINAL PATHOGENS DNA [id number] 00:00:00 Test Item Value Reference Range Interpretation Comments RAMESH SPECIES (test code = 58562) NEGATIVE G. VAGINALIS (test code = 39878) POSITIVE T. VAGINALIS (test code = 71842) NEGATIVE VAGINAL PATHOGENS DNA [id number] 00:00:00 Test Item Value Reference Range Interpretation Comments RAMESH SPECIES (test code = 25089) NEGATIVE G. VAGINALIS (test code = 11976) POSITIVE T. VAGINALIS (test code = 60720) NEGATIVE VAGINAL PATHOGENS DNA [id number] 00:00:00 Test Item Value Reference Range Interpretation Comments RAMESH SPECIES (test code = 58338) NEGATIVE G. VAGINALIS (test code = 15161) POSITIVE T. VAGINALIS (test code = 18461) NEGATIVE VAGINAL PATHOGENS DNA [id number] 00:00:00 Test Item Value Reference Range Interpretation Comments RAMESH SPECIES (test code = 80917) NEGATIVE G. VAGINALIS (test code = 51182) POSITIVE T. VAGINALIS (test code = 83213) NEGATIVE VAGINAL PATHOGENS DNA [id number] 00:00:00 Test Item Value Reference Range Interpretation Comments RAMESH SPECIES (test code = 57639) NEGATIVE G. VAGINALIS (test code = 01044) POSITIVE T. VAGINALIS (test code = 18690) NEGATIVE VAGINAL PATHOGENS DNA [id number] 00:00:00 Test Item Value Reference Range Interpretation Comments RAMESH SPECIES (test code = 31333) NEGATIVE G. VAGINALIS (test code = 43227) POSITIVE T. VAGINALIS (test code = 57717) NEGATIVE VAGINAL PATHOGENS DNA [id number] 00:00:00 Test Item Value Reference Range Interpretation Comments RAMESH SPECIES (test code = 47844) NEGATIVE G. VAGINALIS (test code = 21764) POSITIVE T. VAGINALIS (test code = 40278) NEGATIVE VAGINAL PATHOGENS DNA [id number] 00:00:00 Test Item Value Reference Range Interpretation Comments RAMESH SPECIES (test code = 61660) NEGATIVE G. VAGINALIS (test code = 56691) POSITIVE T. VAGINALIS (test code = 02481) NEGATIVE VAGINAL PATHOGENS DNA [id number] 00:00:00 Test Item Value Reference Range Interpretation Comments RAMESH SPECIES (test code = 24628) NEGATIVE G. VAGINALIS (test code = 78619) POSITIVE T. VAGINALIS (test code = 74632) NEGATIVE VAGINAL PATHOGENS DNA [id number] 00:00:00 Test Item Value Reference Range Interpretation Comments RAMESH SPECIES (test code = 07361) NEGATIVE G. VAGINALIS (test code = 61558) POSITIVE T. VAGINALIS (test code = 81833) NEGATIVE VAGINAL PATHOGENS DNA [id number] 00:00:00 Test Item Value Reference Range Interpretation Comments RAMESH SPECIES (test code = 52344) NEGATIVE G. VAGINALIS (test code = 82640) POSITIVE T. VAGINALIS (test code = 15861) NEGATIVE VAGINAL PATHOGENS DNA [id number] 00:00:00 Test Item Value Reference Range Interpretation Comments RAMESH SPECIES (test code = 35551) NEGATIVE G. VAGINALIS (test code = 43151) POSITIVE T. VAGINALIS (test code = 56081) NEGATIVE VAGINAL PATHOGENS DNA [id number] 00:00:00 Test Item Value Reference Range Interpretation Comments RAMESH SPECIES (test code = 64157) NEGATIVE G. VAGINALIS (test code = 30990) POSITIVE T. VAGINALIS (test code = 08195) NEGATIVE VAGINAL PATHOGENS DNA [id number] 00:00:00 Test Item Value Reference Range Interpretation Comments RAMESH SPECIES (test code = 20382) NEGATIVE G. VAGINALIS (test code = 68906) POSITIVE T. VAGINALIS (test code = 77757) NEGATIVE VAGINAL PATHOGENS DNA [id number] 00:00:00 Test Item Value Reference Range Interpretation Comments RAMESH SPECIES (test code = 29568) NEGATIVE G. VAGINALIS (test code = 54654) POSITIVE T. VAGINALIS (test code = 15339) NEGATIVE VAGINAL PATHOGENS DNA [id number] 00:00:00 Test Item Value Reference Range Interpretation Comments RAMESH SPECIES (test code = 10518) NEGATIVE G. VAGINALIS (test code = 98731) POSITIVE T. VAGINALIS (test code = 46465) NEGATIVE VAGINAL PATHOGENS DNA [id number] 00:00:00 Test Item Value Reference Range Interpretation Comments RAMESH SPECIES (test code = 46078) NEGATIVE G. VAGINALIS (test code = 13905) POSITIVE T. VAGINALIS (test code = 33063) NEGATIVE CULTURE, HERPES [id number] 00:00:00 Test Item Value Reference Range Interpretation Comments SPECIMEN SOURCE (test code TEST NOT PERFORMED = 48432) HERPES CULTURE (test code TEST NOT PERFORMED = 3533) CULTURE, HERPES [id number] 00:00:00 Test Item Value Reference Range Interpretation Comments SPECIMEN SOURCE (test code TEST NOT PERFORMED = 93270) HERPES CULTURE (test code TEST NOT PERFORMED = 3533) CULTURE, HERPES [id number] 00:00:00 Test Item Value Reference Range Interpretation Comments SPECIMEN SOURCE (test code TEST NOT PERFORMED = 75390) HERPES CULTURE (test code TEST NOT PERFORMED = 3533) CULTURE, HERPES [id number] 00:00:00 Test Item Value Reference Range Interpretation Comments SPECIMEN SOURCE (test code TEST NOT PERFORMED = 83794) HERPES CULTURE (test code TEST NOT PERFORMED = 3533) CULTURE, HERPES [id number] 00:00:00 Test Item Value Reference Range Interpretation Comments SPECIMEN SOURCE (test code TEST NOT PERFORMED = 29208) HERPES CULTURE (test code TEST NOT PERFORMED = 3533) CULTURE, HERPES [id number] 00:00:00 Test Item Value Reference Range Interpretation Comments SPECIMEN SOURCE (test code TEST NOT PERFORMED = 92830) HERPES CULTURE (test code TEST NOT PERFORMED = 3533) CULTURE, HERPES [id number] 00:00:00 Test Item Value Reference Range Interpretation Comments SPECIMEN SOURCE (test code TEST NOT PERFORMED = 19355) HERPES CULTURE (test code TEST NOT PERFORMED = 3533) CULTURE, HERPES [id number] 00:00:00 Test Item Value Reference Range Interpretation Comments SPECIMEN SOURCE (test code TEST NOT PERFORMED = 33929) HERPES CULTURE (test code TEST NOT PERFORMED = 3533) CULTURE, HERPES [id number] 00:00:00 Test Item Value Reference Range Interpretation Comments SPECIMEN SOURCE (test code TEST NOT PERFORMED = 20288) HERPES CULTURE (test code TEST NOT PERFORMED = 3533) CULTURE, HERPES [id number] 00:00:00 Test Item Value Reference Range Interpretation Comments SPECIMEN SOURCE (test code TEST NOT PERFORMED = 06372) HERPES CULTURE (test code TEST NOT PERFORMED = 3533) CULTURE, HERPES [id number] 00:00:00 Test Item Value Reference Range Interpretation Comments SPECIMEN SOURCE (test code TEST NOT PERFORMED = 65715) HERPES CULTURE (test code TEST NOT PERFORMED = 3533) CULTURE, HERPES [id number] 00:00:00 Test Item Value Reference Range Interpretation Comments SPECIMEN SOURCE (test code TEST NOT PERFORMED = 13783) HERPES CULTURE (test code TEST NOT PERFORMED = 3533) CULTURE, HERPES [id number] 00:00:00 Test Item Value Reference Range Interpretation Comments SPECIMEN SOURCE (test code TEST NOT PERFORMED = 34627) HERPES CULTURE (test code TEST NOT PERFORMED = 3533) CULTURE, HERPES [id number] 00:00:00 Test Item Value Reference Range Interpretation Comments SPECIMEN SOURCE (test code TEST NOT PERFORMED = 67582) HERPES CULTURE (test code TEST NOT PERFORMED = 3533) CULTURE, HERPES [id number] 00:00:00 Test Item Value Reference Range Interpretation Comments SPECIMEN SOURCE (test code TEST NOT PERFORMED = 52745) HERPES CULTURE (test code TEST NOT PERFORMED = 3533) CULTURE, HERPES [id number] 00:00:00 Test Item Value Reference Range Interpretation Comments SPECIMEN SOURCE (test code TEST NOT PERFORMED = 75494) HERPES CULTURE (test code TEST NOT PERFORMED = 3533) CULTURE, HERPES [id number] 00:00:00 Test Item Value Reference Range Interpretation Comments SPECIMEN SOURCE (test code TEST NOT PERFORMED = 04137) HERPES CULTURE (test code TEST NOT PERFORMED = 3533) CULTURE, HERPES [id number] 00:00:00 Test Item Value Reference Range Interpretation Comments SPECIMEN SOURCE (test code TEST NOT PERFORMED = 95915) HERPES CULTURE (test code TEST NOT PERFORMED = 3533) CULTURE, HERPES [id number] 00:00:00 Test Item Value Reference Range Interpretation Comments SPECIMEN SOURCE (test code TEST NOT PERFORMED = 78124) HERPES CULTURE (test code TEST NOT PERFORMED = 3533) CULTURE, HERPES [id number] 00:00:00 Test Item Value Reference Range Interpretation Comments SPECIMEN SOURCE (test code TEST NOT PERFORMED = 93974) HERPES CULTURE (test code TEST NOT PERFORMED = 3533) CULTURE, HERPES [id number] 00:00:00 Test Item Value Reference Range Interpretation Comments SPECIMEN SOURCE (test code TEST NOT PERFORMED = 68579) HERPES CULTURE (test code TEST NOT PERFORMED = 3533) GC AND CHLAMYDIA AMPLIFIED, [id number] 00:00:00 Test Item Value Reference Range Interpretation Comments GONORRHEA, TMA (test code = 43825) NEGATIVE CHLAMYDIA, TMA (test code = 97297) NEGATIVE GC AND CHLAMYDIA AMPLIFIED, [id number] 00:00:00 Test Item Value Reference Range Interpretation Comments GONORRHEA, TMA (test code = 85774) NEGATIVE CHLAMYDIA, TMA (test code = 59842) NEGATIVE PAP TEST, THINPREP, [id number] 00:00:00 Test Item Value Reference Range Interpretation Comments SOURCE: (test code = Cervical/Endocervical 8001) SLIDES: (test code = 1 8011) LMP: (test code = 8021) 10/10/2018 SPECIMEN ADEQUACY: (NOTE) (test code = 22605) INTERPRETATION: (test NILM/NO EPITH. code = 73761) ABNORMALITY;SEE BELOW CASINO ATTENDANT: (test NOLVIA DE [place](ASCP) code = 8101) LOCATION: (test code = (NOTE) 18873) CPT: (test code = 8140) (NOTE) PAP TEST, THINPREP, [id number] 00:00:00 Test Item Value Reference Range Interpretation Comments SOURCE: (test code = Cervical/Endocervical 8001) SLIDES: (test code = 1 8011) LMP: (test code = 8021) 10/10/2018 SPECIMEN ADEQUACY: (NOTE) (test code = 93068) INTERPRETATION: (test NILM/NO EPITH. code = 30530) ABNORMALITY;SEE BELOW CASINO ATTENDANT: (test NOLVIA DE LA ROSA(ASCP) code = 8101) LOCATION: (test code = (NOTE) 92095) CPT: (test code = 8140) (NOTE) HIV AB/AG COMBO RFLX [id number] 00:00:00 Test Item Value Reference Range Interpretation Comments HIV 1/2 4TH GEN, RFLX CONF (test NON-REACTIVE code = 3514) HIV AB/AG COMBO RFLX [id number] 00:00:00 Test Item Value Reference Range Interpretation Comments HIV 1/2 4TH GEN, RFLX CONF (test NON-REACTIVE code = 3514) HPV HIGH RISK WITH GENOTYPE, [id number] 00:00:00 Test Item Value Reference Range Interpretation Comments HPV HIGH RISK INTERP (test code = NEGATIVE 43183) HPV 16 (test code = 50164) NEGATIVE HPV 18 (test code = 18767) NEGATIVE HPV, HR, OTHER GENOTYPES (test code NEGATIVE = 65822) [id number] 00:00:00 Test Item Value Reference Range Interpretation Comments TSH, THIRD GENERATION (test code 2.250 UIU/ML = 2821) [id number] 00:00:00 Test Item Value Reference Range Interpretation Comments TSH, THIRD GENERATION (test code 2.250 UIU/ML = 2821) HPV HIGH RISK WITH GENOTYPE, [id number] 00:00:00 Test Item Value Reference Range Interpretation Comments HPV HIGH RISK INTERP (test code = NEGATIVE 08534) HPV 16 (test code = 98522) NEGATIVE HPV 18 (test code = 18869) NEGATIVE HPV, HR, OTHER GENOTYPES (test code NEGATIVE = 11098) [id number] 00:00:00 Test Item Value Reference Range Interpretation Comments TSH, THIRD GENERATION (test code 2.250 UIU/ML = 2821) GC AND CHLAMYDIA AMPLIFIED, [id number] 00:00:00 Test Item Value Reference Range Interpretation Comments GONORRHEA, TMA (test code = 93816) NEGATIVE CHLAMYDIA, TMA (test code = 31077) NEGATIVE GC AND CHLAMYDIA AMPLIFIED, [id number] 00:00:00 Test Item Value Reference Range Interpretation Comments GONORRHEA, TMA (test code = 97553) NEGATIVE CHLAMYDIA, TMA (test code = 33272) NEGATIVE PAP TEST, THINPREP, [id number] 00:00:00 Test Item Value Reference Range Interpretation Comments SOURCE: (test code = Cervical/Endocervical 8001) SLIDES: (test code = 1 8011) LMP: (test code = 8021) 10/10/2018 SPECIMEN ADEQUACY: (NOTE) (test code = 40722) INTERPRETATION: (test NILM/NO EPITH. code = 50224) ABNORMALITY;SEE BELOW CASINO ATTENDANT: (test NOLVIA DE [place] ROS[place](ASCP) code = 8101) LOCATION: (test code = (NOTE) 85254) CPT: (test code = 8140) (NOTE) HIV AB/AG COMBO RFLX [id number] 00:00:00 Test Item Value Reference Range Interpretation Comments HIV 1/2 4TH GEN, RFLX CONF (test NON-REACTIVE code = 3514) PAP TEST, THINPREP, [id number] 00:00:00 Test Item Value Reference Range Interpretation Comments SOURCE: (test code = Cervical/Endocervical 8001) SLIDES: (test code = 1 8011) LMP: (test code = 8021) 10/10/2018 SPECIMEN ADEQUACY: (NOTE) (test code = 07186) INTERPRETATION: (test NILM/NO EPITH. code = 39492) ABNORMALITY;SEE BELOW CASINO ATTENDANT: (test NOLVIA DE [place](ASCP) code = 8101) LOCATION: (test code = (NOTE) 66043) CPT: (test code = 8140) (NOTE) HIV AB/AG COMBO RFLX [id number] 00:00:00 Test Item Value Reference Range Interpretation Comments HIV 1/2 4TH GEN, RFLX CONF (test NON-REACTIVE code = 3514) HPV HIGH RISK WITH GENOTYPE, [id number] 00:00:00 Test Item Value Reference Range Interpretation Comments HPV HIGH RISK INTERP (test code = NEGATIVE 79046) HPV 16 (test code = 43210) NEGATIVE HPV 18 (test code = 38718) NEGATIVE HPV, HR, OTHER GENOTYPES (test code NEGATIVE = 92481) [id number] 00:00:00 Test Item Value Reference Range Interpretation Comments TSH, THIRD GENERATION (test code 2.250 UIU/ML = 2821) [id number] 00:00:00 Test Item Value Reference Range Interpretation Comments TSH, THIRD GENERATION (test code 2.250 UIU/ML = 2821) HPV HIGH RISK WITH GENOTYPE, [id number] 00:00:00 Test Item Value Reference Range Interpretation Comments HPV HIGH RISK INTERP (test code = NEGATIVE 43142) HPV 16 (test code = 33336) NEGATIVE HPV 18 (test code = 36295) NEGATIVE HPV, HR, OTHER GENOTYPES (test code NEGATIVE = 06013) [id number] 00:00:00 Test Item Value Reference Range Interpretation Comments TSH, THIRD GENERATION (test code 2.250 UIU/ML = 2821) GC AND CHLAMYDIA AMPLIFIED, [id number] 00:00:00 Test Item Value Reference Range Interpretation Comments GONORRHEA, TMA (test code = 74136) NEGATIVE CHLAMYDIA, TMA (test code = 09679) NEGATIVE GC AND CHLAMYDIA AMPLIFIED, [id number] 00:00:00 Test Item Value Reference Range Interpretation Comments GONORRHEA, TMA (test code = 39586) NEGATIVE CHLAMYDIA, TMA (test code = 82950) NEGATIVE HIV AB/AG COMBO RFLX [id number] 00:00:00 Test Item Value Reference Range Interpretation Comments HIV 1/2 4TH GEN, RFLX CONF (test NON-REACTIVE code = 3514) PAP TEST, THINPREP, [id number] 00:00:00 Test Item Value Reference Range Interpretation Comments SOURCE: (test code = Cervical/Endocervical 8001) SLIDES: (test code = 1 8011) LMP: (test code = 8021) 10/10/2018 SPECIMEN ADEQUACY: (NOTE) (test code = 07455) INTERPRETATION: (test NILM/NO EPITH. code = 96268) ABNORMALITY;SEE BELOW CASINO ATTENDANT: (test NOLVIA DE [place] ROSA(ASCP) code = 8101) LOCATION: (test code = (NOTE) 89423) CPT: (test code = 8140) (NOTE) PAP TEST, THINPREP, [id number] 00:00:00 Test Item Value Reference Range Interpretation Comments SOURCE: (test code = Cervical/Endocervical 8001) SLIDES: (test code = 1 8011) LMP: (test code = 8021) 10/10/2018 SPECIMEN ADEQUACY: (NOTE) (test code = 56760) INTERPRETATION: (test NILM/NO EPITH. code = 39472) ABNORMALITY;SEE BELOW CASINO ATTENDANT: (test RENAE CAR,CT(ASCP) code = 8101) LOCATION: (test code = (NOTE) 04377) CPT: (test code = 8140) (NOTE) HIV AB/AG COMBO RFLX [id number] 00:00:00 Test Item Value Reference Range Interpretation Comments HIV 1/2 4TH GEN, RFLX CONF (test NON-REACTIVE code = 3514) [id number] 00:00:00 Test Item Value Reference Range Interpretation Comments TSH, THIRD GENERATION (test code 2.250 UIU/ML = 2821) [id number] 00:00:00 Test Item Value Reference Range Interpretation Comments TSH, THIRD GENERATION (test code 2.250 UIU/ML = 2821) [id number] 00:00:00 Test Item Value Reference Range Interpretation Comments TSH, THIRD GENERATION (test code 2.250 UIU/ML = 2821) HPV HIGH RISK WITH GENOTYPE, [id number] 00:00:00 Test Item Value Reference Range Interpretation Comments HPV HIGH RISK INTERP (test code = NEGATIVE 52111) HPV 16 (test code = 03026) NEGATIVE HPV 18 (test code = 41909) NEGATIVE HPV, HR, OTHER GENOTYPES (test code NEGATIVE = 35161) HPV HIGH RISK WITH GENOTYPE, [id number] 00:00:00 Test Item Value Reference Range Interpretation Comments HPV HIGH RISK INTERP (test code = NEGATIVE 68306) HPV 16 (test code = 66568) NEGATIVE HPV 18 (test code = 40515) NEGATIVE HPV, HR, OTHER GENOTYPES (test code NEGATIVE = 28270) GC AND CHLAMYDIA AMPLIFIED, [id number] 00:00:00 Test Item Value Reference Range Interpretation Comments GONORRHEA, TMA (test code = 52723) NEGATIVE CHLAMYDIA, TMA (test code = 25720) NEGATIVE GC AND CHLAMYDIA AMPLIFIED, [id number] 00:00:00 Test Item Value Reference Range Interpretation Comments GONORRHEA, TMA (test code = 05284) NEGATIVE CHLAMYDIA, TMA (test code = 10987) NEGATIVE HIV AB/AG COMBO RFLX [id number] 00:00:00 Test Item Value Reference Range Interpretation Comments HIV 1/2 4TH GEN, RFLX CONF (test NON-REACTIVE code = 3514) PAP TEST, THINPREP, [id number] 00:00:00 Test Item Value Reference Range Interpretation Comments SOURCE: (test code = Cervical/Endocervical 8001) SLIDES: (test code = 1 8011) LMP: (test code = 8021) 10/10/2018 SPECIMEN ADEQUACY: (NOTE) (test code = 88022) INTERPRETATION: (test NILM/NO EPITH. code = 31142) ABNORMALITY;SEE BELOW CASINO ATTENDANT: (test NOLVIA DE [place] ROSA(ASCP) code = 8101) LOCATION: (test code = (NOTE) 90512) CPT: (test code = 8140) (NOTE) PAP TEST, THINPREP, [id number] 00:00:00 Test Item Value Reference Range Interpretation Comments SOURCE: (test code = Cervical/Endocervical 8001) SLIDES: (test code = 1 8011) LMP: (test code = 8021) 10/10/2018 SPECIMEN ADEQUACY: (NOTE) (test code = 48393) INTERPRETATION: (test NILM/NO EPITH. code = 29469) ABNORMALITY;SEE BELOW CASINO ATTENDANT: (test NOLVIA DE [place](ASCP) code = 8101) LOCATION: (test code = (NOTE) 04401) CPT: (test code = 8140) (NOTE) HIV AB/AG COMBO RFLX [id number] 00:00:00 Test Item Value Reference Range Interpretation Comments HIV 1/2 4TH GEN, RFLX CONF (test NON-REACTIVE code = 3514) HPV HIGH RISK WITH GENOTYPE, [id number] 00:00:00 Test Item Value Reference Range Interpretation Comments HPV HIGH RISK INTERP (test code = NEGATIVE 34300) HPV 16 (test code = 76206) NEGATIVE HPV 18 (test code = 35903) NEGATIVE HPV, HR, OTHER GENOTYPES (test code NEGATIVE = 60292) [id number] 00:00:00 Test Item Value Reference Range Interpretation Comments TSH, THIRD GENERATION (test code 2.250 UIU/ML = 2821) [id number] 00:00:00 Test Item Value Reference Range Interpretation Comments TSH, THIRD GENERATION (test code 2.250 UIU/ML = 2821) [id number] 00:00:00 Test Item Value Reference Range Interpretation Comments TSH, THIRD GENERATION (test code 2.250 UIU/ML = 2821) HPV HIGH RISK WITH GENOTYPE, [id number] 00:00:00 Test Item Value Reference Range Interpretation Comments HPV HIGH RISK INTERP (test code = NEGATIVE 77370) HPV 16 (test code = 22251) NEGATIVE HPV 18 (test code = 68424) NEGATIVE HPV, HR, OTHER GENOTYPES (test code NEGATIVE = 75053) GC AND CHLAMYDIA AMPLIFIED, [id number] 00:00:00 Test Item Value Reference Range Interpretation Comments GONORRHEA, TMA (test code = 30417) NEGATIVE CHLAMYDIA, TMA (test code = 09640) NEGATIVE GC AND CHLAMYDIA AMPLIFIED, [id number] 00:00:00 Test Item Value Reference Range Interpretation Comments GONORRHEA, TMA (test code = 94883) NEGATIVE CHLAMYDIA, TMA (test code = 10872) NEGATIVE HIV AB/AG COMBO RFLX [id number] 00:00:00 Test Item Value Reference Range Interpretation Comments HIV 1/2 4TH GEN, RFLX CONF (test NON-REACTIVE code = 3514) PAP TEST, THINPREP, [id number] 00:00:00 Test Item Value Reference Range Interpretation Comments SOURCE: (test code = Cervical/Endocervical 8001) SLIDES: (test code = 1 8011) LMP: (test code = 8021) 10/10/2018 SPECIMEN ADEQUACY: (NOTE) (test code = 17068) INTERPRETATION: (test NILM/NO EPITH. code = 82986) ABNORMALITY;SEE BELOW CASINO ATTENDANT: (test NOLVIA DE [place] ROSA(ASCP) code = 8101) LOCATION: (test code = (NOTE) 11068) CPT: (test code = 8140) (NOTE) PAP TEST, THINPREP, [id number] 00:00:00 Test Item Value Reference Range Interpretation Comments SOURCE: (test code = Cervical/Endocervical 8001) SLIDES: (test code = 1 8011) LMP: (test code = 8021) 10/10/2018 SPECIMEN ADEQUACY: (NOTE) (test code = 44794) INTERPRETATION: (test NILM/NO EPITH. code = 12792) ABNORMALITY;SEE BELOW CASINO ATTENDANT: (test RENAE CARCT(ASCP) code = 8101) LOCATION: (test code = (NOTE) 05884) CPT: (test code = 8140) (NOTE) HIV AB/AG COMBO RFLX [id number] 00:00:00 Test Item Value Reference Range Interpretation Comments HIV 1/2 4TH GEN, RFLX CONF (test NON-REACTIVE code = 3514) [id number] 00:00:00 Test Item Value Reference Range Interpretation Comments TSH, THIRD GENERATION (test code 2.250 UIU/ML = 2821) [id number] 00:00:00 Test Item Value Reference Range Interpretation Comments TSH, THIRD GENERATION (test code 2.250 UIU/ML = 2821) HPV HIGH RISK WITH GENOTYPE, [id number] 00:00:00 Test Item Value Reference Range Interpretation Comments HPV HIGH RISK INTERP (test code = NEGATIVE 82301) HPV 16 (test code = 68751) NEGATIVE HPV 18 (test code = 30799) NEGATIVE HPV, HR, OTHER GENOTYPES (test code NEGATIVE = 16723) HPV HIGH RISK WITH GENOTYPE, [id number] 00:00:00 Test Item Value Reference Range Interpretation Comments HPV HIGH RISK INTERP (test code = NEGATIVE 23275) HPV 16 (test code = 79532) NEGATIVE HPV 18 (test code = 27778) NEGATIVE HPV, HR, OTHER GENOTYPES (test code NEGATIVE = 19344) [id number] 00:00:00 Test Item Value Reference Range Interpretation Comments TSH, THIRD GENERATION (test code 2.250 UIU/ML = 2821) GC AND CHLAMYDIA AMPLIFIED, [id number] 00:00:00 Test Item Value Reference Range Interpretation Comments GONORRHEA, TMA (test code = 09437) NEGATIVE CHLAMYDIA, TMA (test code = 83875) NEGATIVE GC AND CHLAMYDIA AMPLIFIED, [id number] 00:00:00 Test Item Value Reference Range Interpretation Comments GONORRHEA, TMA (test code = 92443) NEGATIVE CHLAMYDIA, TMA (test code = 39117) NEGATIVE PAP TEST, THINPREP, [id number] 00:00:00 Test Item Value Reference Range Interpretation Comments SOURCE: (test code = Cervical/Endocervical 8001) SLIDES: (test code = 1 8011) LMP: (test code = 8021) 10/10/2018 SPECIMEN ADEQUACY: (NOTE) (test code = 71378) INTERPRETATION: (test NILM/NO EPITH. code = 87686) ABNORMALITY;SEE BELOW CASINO ATTENDANT: (test RENAE CARCT(ASCP) code = 8101) LOCATION: (test code = (NOTE) 06270) CPT: (test code = 8140) (NOTE) HIV AB/AG COMBO RFLX [id number] 00:00:00 Test Item Value Reference Range Interpretation Comments HIV 1/2 4TH GEN, RFLX CONF (test NON-REACTIVE code = 3514) HIV AB/AG COMBO RFLX [id number] 00:00:00 Test Item Value Reference Range Interpretation Comments HIV 1/2 4TH GEN, RFLX CONF (test NON-REACTIVE code = 3514) PAP TEST, THINPREP, [id number] 00:00:00 Test Item Value Reference Range Interpretation Comments SOURCE: (test code = Cervical/Endocervical 8001) SLIDES: (test code = 1 8011) LMP: (test code = 8021) 10/10/2018 SPECIMEN ADEQUACY: (NOTE) (test code = 18874) INTERPRETATION: (test NILM/NO EPITH. code = 58490) ABNORMALITY;SEE BELOW CASINO ATTENDANT: (test RENAE CARCT(ASCP) code = 8101) LOCATION: (test code = (NOTE) 87063) CPT: (test code = 8140) (NOTE) HPV HIGH RISK WITH GENOTYPE, [id number] 00:00:00 Test Item Value Reference Range Interpretation Comments HPV HIGH RISK INTERP (test code = NEGATIVE 22646) HPV 16 (test code = 16744) NEGATIVE HPV 18 (test code = 18338) NEGATIVE HPV, HR, OTHER GENOTYPES (test code NEGATIVE = 39270) [id number] 00:00:00 Test Item Value Reference Range Interpretation Comments TSH, THIRD GENERATION (test code 2.250 UIU/ML = 2821) HPV HIGH RISK WITH GENOTYPE, [id number] 00:00:00 Test Item Value Reference Range Interpretation Comments HPV HIGH RISK INTERP (test code = NEGATIVE 83261) HPV 16 (test code = 67471) NEGATIVE HPV 18 (test code = 52850) NEGATIVE HPV, HR, OTHER GENOTYPES (test code NEGATIVE = 61157) [id number] 00:00:00 Test Item Value Reference Range Interpretation Comments TSH, THIRD GENERATION (test code 2.250 UIU/ML = 2821) [id number] 00:00:00 Test Item Value Reference Range Interpretation Comments TSH, THIRD GENERATION (test code 2.250 UIU/ML = 2821) GC AND CHLAMYDIA AMPLIFIED, [id number] 00:00:00 Test Item Value Reference Range Interpretation Comments GONORRHEA, TMA (test code = 49759) NEGATIVE CHLAMYDIA, TMA (test code = 84243) NEGATIVE GC AND CHLAMYDIA AMPLIFIED, [id number] 00:00:00 Test Item Value Reference Range Interpretation Comments GONORRHEA, TMA (test code = 71921) NEGATIVE CHLAMYDIA, TMA (test code = 30535) NEGATIVE PAP TEST, THINPREP, [id number] 00:00:00 Test Item Value Reference Range Interpretation Comments SOURCE: (test code = Cervical/Endocervical 8001) SLIDES: (test code = 1 8011) LMP: (test code = 8021) 10/10/2018 SPECIMEN ADEQUACY: (NOTE) (test code = 10629) INTERPRETATION: (test NILM/NO EPITH. code = 76528) ABNORMALITY;SEE BELOW CASINO ATTENDANT: (test NLOVIA DE LA ROSA(ASCP) code = 8101) LOCATION: (test code = (NOTE) 16739) CPT: (test code = 8140) (NOTE) HIV AB/AG COMBO RFLX [id number] 00:00:00 Test Item Value Reference Range Interpretation Comments HIV 1/2 4TH GEN, RFLX CONF (test NON-REACTIVE code = 3514) HIV AB/AG COMBO RFLX [id number] 00:00:00 Test Item Value Reference Range Interpretation Comments HIV 1/2 4TH GEN, RFLX CONF (test NON-REACTIVE code = 3514) PAP TEST, THINPREP, [id number] 00:00:00 Test Item Value Reference Range Interpretation Comments SOURCE: (test code = Cervical/Endocervical 8001) SLIDES: (test code = 1 8011) LMP: (test code = 8021) 10/10/2018 SPECIMEN ADEQUACY: (NOTE) (test code = 80094) INTERPRETATION: (test NILM/NO EPITH. code = 30813) ABNORMALITY;SEE BELOW CASINO ATTENDANT: (test RENAE CARCT(ASCP) code = 8101) LOCATION: (test code = (NOTE) 41365) CPT: (test code = 8140) (NOTE) HPV HIGH RISK WITH GENOTYPE, [id number] 00:00:00 Test Item Value Reference Range Interpretation Comments HPV HIGH RISK INTERP (test code = NEGATIVE 49346) HPV 16 (test code = 38272) NEGATIVE HPV 18 (test code = 32218) NEGATIVE HPV, HR, OTHER GENOTYPES (test code NEGATIVE = 82393) [id number] 00:00:00 Test Item Value Reference Range Interpretation Comments TSH, THIRD GENERATION (test code 2.250 UIU/ML = 2821) HPV HIGH RISK WITH GENOTYPE, [id number] 00:00:00 Test Item Value Reference Range Interpretation Comments HPV HIGH RISK INTERP (test code = NEGATIVE 99242) HPV 16 (test code = 13885) NEGATIVE HPV 18 (test code = 77160) NEGATIVE HPV, HR, OTHER GENOTYPES (test code NEGATIVE = 23379) [id number] 00:00:00 Test Item Value Reference Range Interpretation Comments TSH, THIRD GENERATION (test code 2.250 UIU/ML = 2821) [id number] 00:00:00 Test Item Value Reference Range Interpretation Comments TSH, THIRD GENERATION (test code 2.250 UIU/ML = 2821) GC AND CHLAMYDIA AMPLIFIED, [id number] 00:00:00 Test Item Value Reference Range Interpretation Comments GONORRHEA, TMA (test code = 29420) NEGATIVE CHLAMYDIA, TMA (test code = 84396) NEGATIVE GC AND CHLAMYDIA AMPLIFIED, [id number] 00:00:00 Test Item Value Reference Range Interpretation Comments GONORRHEA, TMA (test code = 64682) NEGATIVE CHLAMYDIA, TMA (test code = 91416) NEGATIVE GC AND CHLAMYDIA AMPLIFIED, [id number] 00:00:00 Test Item Value Reference Range Interpretation Comments GONORRHEA, TMA (test code = 18172) NEGATIVE CHLAMYDIA, TMA (test code = 43583) NEGATIVE PAP TEST, THINPREP, [id number] 00:00:00 Test Item Value Reference Range Interpretation Comments SOURCE: (test code = Cervical/Endocervical 8001) SLIDES: (test code = 1 8011) LMP: (test code = 8021) 10/10/2018 SPECIMEN ADEQUACY: (NOTE) (test code = 89864) INTERPRETATION: (test NILM/NO EPITH. code = 23510) ABNORMALITY;SEE BELOW CASINO ATTENDANT: (test NOLVIA DE LA ROSA(ASCP) code = 8101) LOCATION: (test code = (NOTE) 54237) CPT: (test code = 8140) (NOTE) HIV AB/AG COMBO RFLX [id number] 00:00:00 Test Item Value Reference Range Interpretation Comments HIV 1/2 4TH GEN, RFLX CONF (test NON-REACTIVE code = 3514) HIV AB/AG COMBO RFLX [id number] 00:00:00 Test Item Value Reference Range Interpretation Comments HIV 1/2 4TH GEN, RFLX CONF (test NON-REACTIVE code = 3514) HIV AB/AG COMBO RFLX [id number] 00:00:00 Test Item Value Reference Range Interpretation Comments HIV 1/2 4TH GEN, RFLX CONF (test NON-REACTIVE code = 3514) PAP TEST, THINPREP, [id number] 00:00:00 Test Item Value Reference Range Interpretation Comments SOURCE: (test code = Cervical/Endocervical 8001) SLIDES: (test code = 1 8011) LMP: (test code = 8021) 10/10/2018 SPECIMEN ADEQUACY: (NOTE) (test code = 86996) INTERPRETATION: (test NILM/NO EPITH. code = 63806) ABNORMALITY;SEE BELOW CASINO ATTENDANT: (test NOLVIA DE LA ROSA(ASCP) code = 8101) LOCATION: (test code = (NOTE) 58201) CPT: (test code = 8140) (NOTE) [id number] 00:00:00 Test Item Value Reference Range Interpretation Comments TSH, THIRD GENERATION (test code 2.250 UIU/ML = 2821) [id number] 00:00:00 Test Item Value Reference Range Interpretation Comments TSH, THIRD GENERATION (test code 2.250 UIU/ML = 2821) HPV HIGH RISK WITH GENOTYPE, [id number] 00:00:00 Test Item Value Reference Range Interpretation Comments HPV HIGH RISK INTERP (test code = NEGATIVE 26206) HPV 16 (test code = 62931) NEGATIVE HPV 18 (test code = 21163) NEGATIVE HPV, HR, OTHER GENOTYPES (test code NEGATIVE = 72787) [id number] 00:00:00 Test Item Value Reference Range Interpretation Comments TSH, THIRD GENERATION (test code 2.250 UIU/ML = 2821) HPV HIGH RISK WITH GENOTYPE, [id number] 00:00:00 Test Item Value Reference Range Interpretation Comments HPV HIGH RISK INTERP (test code = NEGATIVE 18075) HPV 16 (test code = 26189) NEGATIVE HPV 18 (test code = 63379) NEGATIVE HPV, HR, OTHER GENOTYPES (test code NEGATIVE = 74229) PAP TEST, THINPREP, [id number] 00:00:00 Test Item Value Reference Range Interpretation Comments SOURCE: (test code = Cervical/Endocervical 8001) SLIDES: (test code = 1 8011) LMP: (test code = 8021) 10/10/2018 SPECIMEN ADEQUACY: (NOTE) (test code = 52457) INTERPRETATION: (test NILM/NO EPITH. code = 15308) ABNORMALITY;SEE BELOW CASINO ATTENDANT: (test ONLVIA DE LA ROSA(ASCP) code = 8101) LOCATION: (test code = (NOTE) 50007) CPT: (test code = 8140) (NOTE) [id number] 00:00:00 Test Item Value Reference Range Interpretation Comments TSH, THIRD GENERATION (test code 2.250 UIU/ML = 2821) [id number] 00:00:00 Test Item Value Reference Range Interpretation Comments TSH, THIRD GENERATION (test code 2.250 UIU/ML = 2821) HPV HIGH RISK WITH GENOTYPE, [id number] 00:00:00 Test Item Value Reference Range Interpretation Comments HPV HIGH RISK INTERP (test code = NEGATIVE 13619) HPV 16 (test code = 30411) NEGATIVE HPV 18 (test code = 44799) NEGATIVE HPV, HR, OTHER GENOTYPES (test code NEGATIVE = 19209) GC AND CHLAMYDIA AMPLIFIED, [id number] 00:00:00 Test Item Value Reference Range Interpretation Comments GONORRHEA, TMA (test code = 12875) NEGATIVE CHLAMYDIA, TMA (test code = 49662) NEGATIVE GC AND CHLAMYDIA AMPLIFIED, [id number] 00:00:00 Test Item Value Reference Range Interpretation Comments GONORRHEA, TMA (test code = 47621) NEGATIVE CHLAMYDIA, TMA (test code = 36212) NEGATIVE PAP TEST, THINPREP, [id number] 00:00:00 Test Item Value Reference Range Interpretation Comments SOURCE: (test code = Cervical/Endocervical 8001) SLIDES: (test code = 1 8011) LMP: (test code = 8021) 10/10/2018 SPECIMEN ADEQUACY: (NOTE) (test code = 92204) INTERPRETATION: (test NILM/NO EPITH. code = 24386) ABNORMALITY;SEE BELOW CASINO ATTENDANT: (test NOLVIA DE LA ROSA(ASCP) code = 8101) LOCATION: (test code = (NOTE) 08800) CPT: (test code = 8140) (NOTE) HIV AB/AG COMBO RFLX [id number] 00:00:00 Test Item Value Reference Range Interpretation Comments HIV 1/2 4TH GEN, RFLX CONF (test NON-REACTIVE code = 3514) HIV AB/AG COMBO RFLX [id number] 00:00:00 Test Item Value Reference Range Interpretation Comments HIV 1/2 4TH GEN, RFLX CONF (test NON-REACTIVE code = 3514) PAP TEST, THINPREP, [id number] 00:00:00 Test Item Value Reference Range Interpretation Comments SOURCE: (test code = Cervical/Endocervical 8001) SLIDES: (test code = 1 8011) LMP: (test code = 8021) 10/10/2018 SPECIMEN ADEQUACY: (NOTE) (test code = 61597) INTERPRETATION: (test NILM/NO EPITH. code = 88499) ABNORMALITY;SEE BELOW CASINO ATTENDANT: (test NOLV[place](ASCP) code = 8101) LOCATION: (test code = (NOTE) 40098) CPT: (test code = 8140) (NOTE) [id number] 00:00:00 Test Item Value Reference Range Interpretation Comments TSH, THIRD GENERATION (test code 2.250 UIU/ML = 2821) HPV HIGH RISK WITH GENOTYPE, [id number] 00:00:00 Test Item Value Reference Range Interpretation Comments HPV HIGH RISK INTERP (test code = NEGATIVE 22048) HPV 16 (test code = 69726) NEGATIVE HPV 18 (test code = 43694) NEGATIVE HPV, HR, OTHER GENOTYPES (test code NEGATIVE = 66719) HPV HIGH RISK WITH GENOTYPE, [id number] 00:00:00 Test Item Value Reference Range Interpretation Comments HPV HIGH RISK INTERP (test code = NEGATIVE 48909) HPV 16 (test code = 33912) NEGATIVE HPV 18 (test code = 30244) NEGATIVE HPV, HR, OTHER GENOTYPES (test code NEGATIVE = 77424) [id number] 00:00:00 Test Item Value Reference Range Interpretation Comments TSH, THIRD GENERATION (test code 2.250 UIU/ML = 2821) [id number] 00:00:00 Test Item Value Reference Range Interpretation Comments TSH, THIRD GENERATION (test code 2.250 UIU/ML = 2821) GC AND CHLAMYDIA AMPLIFIED, [id number] 00:00:00 Test Item Value Reference Range Interpretation Comments GONORRHEA, TMA (test code = 60219) NEGATIVE CHLAMYDIA, TMA (test code = 82949) NEGATIVE GC AND CHLAMYDIA AMPLIFIED, [id number] 00:00:00 Test Item Value Reference Range Interpretation Comments GONORRHEA, TMA (test code = 15556) NEGATIVE CHLAMYDIA, TMA (test code = 16003) NEGATIVE PAP TEST, THINPREP, [id number] 00:00:00 Test Item Value Reference Range Interpretation Comments SOURCE: (test code = Cervical/Endocervical 8001) SLIDES: (test code = 1 8011) LMP: (test code = 8021) 10/10/2018 SPECIMEN ADEQUACY: (NOTE) (test code = 87391) INTERPRETATION: (test NILM/NO EPITH. code = 76452) ABNORMALITY;SEE BELOW CASINO ATTENDANT: (test [place](ASCP) code = 8101) LOCATION: (test code = (NOTE) 77276) CPT: (test code = 8140) (NOTE) PAP TEST, THINPREP, [id number] 00:00:00 Test Item Value Reference Range Interpretation Comments SOURCE: (test code = Cervical/Endocervical 8001) SLIDES: (test code = 1 8011) LMP: (test code = 8021) 10/10/2018 SPECIMEN ADEQUACY: (NOTE) (test code = 19052) INTERPRETATION: (test NILM/NO EPITH. code = 95249) ABNORMALITY;SEE BELOW CASINO ATTENDANT: (test RENAE CAR,CT(ASCP) code = 8101) LOCATION: (test code = (NOTE) 76780) CPT: (test code = 8140) (NOTE) HIV AB/AG COMBO RFLX [id number] 00:00:00 Test Item Value Reference Range Interpretation Comments HIV 1/2 4TH GEN, RFLX CONF (test NON-REACTIVE code = 3514) HIV AB/AG COMBO RFLX [id number] 00:00:00 Test Item Value Reference Range Interpretation Comments HIV 1/2 4TH GEN, RFLX CONF (test NON-REACTIVE code = 3514) HPV HIGH RISK WITH GENOTYPE, [id number] 00:00:00 Test Item Value Reference Range Interpretation Comments HPV HIGH RISK INTERP (test code = NEGATIVE 64086) HPV 16 (test code = 94095) NEGATIVE HPV 18 (test code = 47978) NEGATIVE HPV, HR, OTHER GENOTYPES (test code NEGATIVE = 31634) [id number] 00:00:00 Test Item Value Reference Range Interpretation Comments TSH, THIRD GENERATION (test code 2.250 UIU/ML = 2821) [id number] 00:00:00 Test Item Value Reference Range Interpretation Comments TSH, THIRD GENERATION (test code 2.250 UIU/ML = 2821) HPV HIGH RISK WITH GENOTYPE, [id number] 00:00:00 Test Item Value Reference Range Interpretation Comments HPV HIGH RISK INTERP (test code = NEGATIVE 50526) HPV 16 (test code = 17181) NEGATIVE HPV 18 (test code = 20509) NEGATIVE HPV, HR, OTHER GENOTYPES (test code NEGATIVE = 73694) [id number] 00:00:00 Test Item Value Reference Range Interpretation Comments TSH, THIRD GENERATION (test code 2.250 UIU/ML = 2821) CULTURE, [id number] 00:00:00 Test Item Value Reference Range Interpretation Comments CULTURE, URINE (test SPECIMEN NUMBER: code = 40453) [id number] CULTURE, [id number] 00:00:00 Test Item Value Reference Range Interpretation Comments CULTURE, URINE (test SPECIMEN NUMBER: code = 36994) [id number] CULTURE, [id number] 00:00:00 Test Item Value Reference Range Interpretation Comments CULTURE, URINE (test SPECIMEN NUMBER: code = 23823) [id number] CULTURE, [id number] 00:00:00 Test Item Value Reference Range Interpretation Comments CULTURE, URINE (test SPECIMEN NUMBER: code = 50199) [id number] CULTURE, [id number] 00:00:00 Test Item Value Reference Range Interpretation Comments CULTURE, URINE (test SPECIMEN NUMBER: code = 98148) [id number] CULTURE, [id number] 00:00:00 Test Item Value Reference Range Interpretation Comments CULTURE, URINE (test SPECIMEN NUMBER: code = 29480) [id number] CULTURE, [id number] 00:00:00 Test Item Value Reference Range Interpretation Comments CULTURE, URINE (test SPECIMEN NUMBER: code = 62628) [id number] CULTURE, [id number] 00:00:00 Test Item Value Reference Range Interpretation Comments CULTURE, URINE (test SPECIMEN NUMBER: code = 07281) [id number] CULTURE, [id number] 00:00:00 Test Item Value Reference Range Interpretation Comments CULTURE, URINE (test SPECIMEN NUMBER: code = 45645) [id number] CULTURE, [id number] 00:00:00 Test Item Value Reference Range Interpretation Comments CULTURE, URINE (test SPECIMEN NUMBER: code = 20919) [id number] CULTURE, [id number] 00:00:00 Test Item Value Reference Range Interpretation Comments CULTURE, URINE (test SPECIMEN NUMBER: code = 22421) [id number] CULTURE, [id number] 00:00:00 Test Item Value Reference Range Interpretation Comments CULTURE, URINE (test SPECIMEN NUMBER: code = 86917) [id number] CULTURE, [id number] 00:00:00 Test Item Value Reference Range Interpretation Comments CULTURE, URINE (test SPECIMEN NUMBER: code = 23995) [id number] CULTURE, [id number] 00:00:00 Test Item Value Reference Range Interpretation Comments CULTURE, URINE (test SPECIMEN NUMBER: code = 17051) [id number] CULTURE, [id number] 00:00:00 Test Item Value Reference Range Interpretation Comments CULTURE, URINE (test SPECIMEN NUMBER: code = 20429) [id number] CULTURE, [id number] 00:00:00 Test Item Value Reference Range Interpretation Comments CULTURE, URINE (test SPECIMEN NUMBER: code = 67798) [id number] CULTURE, [id number] 00:00:00 Test Item Value Reference Range Interpretation Comments CULTURE, URINE (test SPECIMEN NUMBER: code = 04281) [id number] CULTURE, [id number] 00:00:00 Test Item Value Reference Range Interpretation Comments CULTURE, URINE (test SPECIMEN NUMBER: code = 92935) [id number] CULTURE, [id number] 00:00:00 Test Item Value Reference Range Interpretation Comments CULTURE, URINE (test SPECIMEN NUMBER: code = 56535) [id number] CULTURE, [id number] 00:00:00 Test Item Value Reference Range Interpretation Comments CULTURE, URINE (test SPECIMEN NUMBER: code = 47353) [id number] CULTURE, [id number] 00:00:00 Test Item Value Reference Range Interpretation Comments CULTURE, URINE (test SPECIMEN NUMBER: code = 35919) [id number] VAGINAL PATHOGENS DNA [id number] 00:00:00 Test Item Value Reference Range Interpretation Comments RAMESH SPECIES (test code = ) NEGATIVE G. VAGINALIS (test code = 06277) POSITIVE T. VAGINALIS (test code = 21551) NEGATIVE VAGINAL PATHOGENS DNA [id number] 00:00:00 Test Item Value Reference Range Interpretation Comments RAMESH SPECIES (test code = 36421) NEGATIVE G. VAGINALIS (test code = 22146) POSITIVE T. VAGINALIS (test code = 67654) NEGATIVE VAGINAL PATHOGENS DNA [id number] 00:00:00 Test Item Value Reference Range Interpretation Comments RAMESH SPECIES (test code = 09125) NEGATIVE G. VAGINALIS (test code = 23450) POSITIVE T. VAGINALIS (test code = 58208) NEGATIVE VAGINAL PATHOGENS DNA [id number] 00:00:00 Test Item Value Reference Range Interpretation Comments RAMESH SPECIES (test code = 17653) NEGATIVE G. VAGINALIS (test code = 65111) POSITIVE T. VAGINALIS (test code = 19661) NEGATIVE VAGINAL PATHOGENS DNA [id number] 00:00:00 Test Item Value Reference Range Interpretation Comments RAMESH SPECIES (test code = 74834) NEGATIVE G. VAGINALIS (test code = 79383) POSITIVE T. VAGINALIS (test code = 05524) NEGATIVE VAGINAL PATHOGENS DNA [id number] 00:00:00 Test Item Value Reference Range Interpretation Comments RAMESH SPECIES (test code = 16827) NEGATIVE G. VAGINALIS (test code = 02139) POSITIVE T. VAGINALIS (test code = 20605) NEGATIVE VAGINAL PATHOGENS DNA [id number] 00:00:00 Test Item Value Reference Range Interpretation Comments RAMESH SPECIES (test code = 42287) NEGATIVE G. VAGINALIS (test code = 89011) POSITIVE T. VAGINALIS (test code = 67089) NEGATIVE VAGINAL PATHOGENS DNA [id number] 00:00:00 Test Item Value Reference Range Interpretation Comments RAMESH SPECIES (test code = 94279) NEGATIVE G. VAGINALIS (test code = 06770) POSITIVE T. VAGINALIS (test code = 84199) NEGATIVE VAGINAL PATHOGENS DNA [id number] 00:00:00 Test Item Value Reference Range Interpretation Comments RAMESH SPECIES (test code = 77357) NEGATIVE G. VAGINALIS (test code = 60216) POSITIVE T. VAGINALIS (test code = 50612) NEGATIVE VAGINAL PATHOGENS DNA [id number] 00:00:00 Test Item Value Reference Range Interpretation Comments RAMESH SPECIES (test code = 77075) NEGATIVE G. VAGINALIS (test code = 85121) POSITIVE T. VAGINALIS (test code = 16424) NEGATIVE VAGINAL PATHOGENS DNA [id number] 00:00:00 Test Item Value Reference Range Interpretation Comments RAMESH SPECIES (test code = 36783) NEGATIVE G. VAGINALIS (test code = 35992) POSITIVE T. VAGINALIS (test code = 85356) NEGATIVE VAGINAL PATHOGENS DNA [id number] 00:00:00 Test Item Value Reference Range Interpretation Comments RAMESH SPECIES (test code = 96770) NEGATIVE G. VAGINALIS (test code = 17375) POSITIVE T. VAGINALIS (test code = 99755) NEGATIVE VAGINAL PATHOGENS DNA [id number] 00:00:00 Test Item Value Reference Range Interpretation Comments RAMESH SPECIES (test code = 95186) NEGATIVE G. VAGINALIS (test code = 04315) POSITIVE T. VAGINALIS (test code = 93073) NEGATIVE VAGINAL PATHOGENS DNA [id number] 00:00:00 Test Item Value Reference Range Interpretation Comments RAMESH SPECIES (test code = 70811) NEGATIVE G. VAGINALIS (test code = 75015) POSITIVE T. VAGINALIS (test code = 45083) NEGATIVE VAGINAL PATHOGENS DNA [id number] 00:00:00 Test Item Value Reference Range Interpretation Comments RAMESH SPECIES (test code = 40725) NEGATIVE G. VAGINALIS (test code = 75777) POSITIVE T. VAGINALIS (test code = 62352) NEGATIVE VAGINAL PATHOGENS DNA [id number] 00:00:00 Test Item Value Reference Range Interpretation Comments RAMESH SPECIES (test code = 55492) NEGATIVE G. VAGINALIS (test code = 04034) POSITIVE T. VAGINALIS (test code = 76059) NEGATIVE VAGINAL PATHOGENS DNA [id number] 00:00:00 Test Item Value Reference Range Interpretation Comments RAMESH SPECIES (test code = 83061) NEGATIVE G. VAGINALIS (test code = 85158) POSITIVE T. VAGINALIS (test code = 12918) NEGATIVE VAGINAL PATHOGENS DNA [id number] 00:00:00 Test Item Value Reference Range Interpretation Comments RAMESH SPECIES (test code = 40157) NEGATIVE G. VAGINALIS (test code = 19596) POSITIVE T. VAGINALIS (test code = 59963) NEGATIVE VAGINAL PATHOGENS DNA [id number] 00:00:00 Test Item Value Reference Range Interpretation Comments RAMESH SPECIES (test code = 47209) NEGATIVE G. VAGINALIS (test code = 88879) POSITIVE T. VAGINALIS (test code = 12101) NEGATIVE VAGINAL PATHOGENS DNA [id number] 00:00:00 Test Item Value Reference Range Interpretation Comments RAMESH SPECIES (test code = 85644) NEGATIVE G. VAGINALIS (test code = 72958) POSITIVE T. VAGINALIS (test code = 98948) NEGATIVE VAGINAL PATHOGENS DNA [id number] 00:00:00 Test Item Value Reference Range Interpretation Comments RAMESH SPECIES (test code = 50609) NEGATIVE G. VAGINALIS (test code = 77668) POSITIVE T. VAGINALIS (test code = 13346) NEGATIVE GC AND CHLAMYDIA, AMPLIFIED, [id number] 00:00:00 Test Item Value Reference Range Interpretation Comments GONORRHEA, TMA (test code = 54640) NEGATIVE CHLAMYDIA, TMA (test code = 33021) NEGATIVE GC AND CHLAMYDIA, AMPLIFIED, [id number] 00:00:00 Test Item Value Reference Range Interpretation Comments GONORRHEA, TMA (test code = 92881) NEGATIVE CHLAMYDIA, TMA (test code = 13001) NEGATIVE GC AND CHLAMYDIA, AMPLIFIED, [id number] 00:00:00 Test Item Value Reference Range Interpretation Comments GONORRHEA, TMA (test code = 96031) NEGATIVE CHLAMYDIA, TMA (test code = 21874) NEGATIVE GC AND CHLAMYDIA, AMPLIFIED, [id number] 00:00:00 Test Item Value Reference Range Interpretation Comments GONORRHEA, TMA (test code = 29379) NEGATIVE CHLAMYDIA, TMA (test code = 56303) NEGATIVE GC AND CHLAMYDIA, AMPLIFIED, [id number] 00:00:00 Test Item Value Reference Range Interpretation Comments GONORRHEA, TMA (test code = 67472) NEGATIVE CHLAMYDIA, TMA (test code = 62151) NEGATIVE GC AND CHLAMYDIA, AMPLIFIED, [id number] 00:00:00 Test Item Value Reference Range Interpretation Comments GONORRHEA, TMA (test code = 81424) NEGATIVE CHLAMYDIA, TMA (test code = 77899) NEGATIVE GC AND CHLAMYDIA, AMPLIFIED, [id number] 00:00:00 Test Item Value Reference Range Interpretation Comments GONORRHEA, TMA (test code = 11772) NEGATIVE CHLAMYDIA, TMA (test code = 93165) NEGATIVE GC AND CHLAMYDIA, AMPLIFIED, [id number] 00:00:00 Test Item Value Reference Range Interpretation Comments GONORRHEA, TMA (test code = 53685) NEGATIVE CHLAMYDIA, TMA (test code = 22837) NEGATIVE GC AND CHLAMYDIA, AMPLIFIED, [id number] 00:00:00 Test Item Value Reference Range Interpretation Comments GONORRHEA, TMA (test code = 90089) NEGATIVE CHLAMYDIA, TMA (test code = 31451) NEGATIVE GC AND CHLAMYDIA, AMPLIFIED, [id number] 00:00:00 Test Item Value Reference Range Interpretation Comments GONORRHEA, TMA (test code = 43986) NEGATIVE CHLAMYDIA, TMA (test code = 55301) NEGATIVE GC AND CHLAMYDIA, AMPLIFIED, [id number] 00:00:00 Test Item Value Reference Range Interpretation Comments GONORRHEA, TMA (test code = 03287) NEGATIVE CHLAMYDIA, TMA (test code = 80246) NEGATIVE GC AND CHLAMYDIA, AMPLIFIED, [id number] 00:00:00 Test Item Value Reference Range Interpretation Comments GONORRHEA, TMA (test code = 32286) NEGATIVE CHLAMYDIA, TMA (test code = 93750) NEGATIVE GC AND CHLAMYDIA, AMPLIFIED, [id number] 00:00:00 Test Item Value Reference Range Interpretation Comments GONORRHEA, TMA (test code = 51292) NEGATIVE CHLAMYDIA, TMA (test code = 82240) NEGATIVE GC AND CHLAMYDIA, AMPLIFIED, [id number] 00:00:00 Test Item Value Reference Range Interpretation Comments GONORRHEA, TMA (test code = 44572) NEGATIVE CHLAMYDIA, TMA (test code = 63323) NEGATIVE GC AND CHLAMYDIA, AMPLIFIED, [id number] 00:00:00 Test Item Value Reference Range Interpretation Comments GONORRHEA, TMA (test code = 03060) NEGATIVE CHLAMYDIA, TMA (test code = 95251) NEGATIVE GC AND CHLAMYDIA, AMPLIFIED, [id number] 00:00:00 Test Item Value Reference Range Interpretation Comments GONORRHEA, TMA (test code = 63943) NEGATIVE CHLAMYDIA, TMA (test code = 24715) NEGATIVE GC AND CHLAMYDIA, AMPLIFIED, [id number] 00:00:00 Test Item Value Reference Range Interpretation Comments GONORRHEA, TMA (test code = 05300) NEGATIVE CHLAMYDIA, TMA (test code = 16789) NEGATIVE GC AND CHLAMYDIA, AMPLIFIED, [id number] 00:00:00 Test Item Value Reference Range Interpretation Comments GONORRHEA, TMA (test code = 44424) NEGATIVE CHLAMYDIA, TMA (test code = 18846) NEGATIVE GC AND CHLAMYDIA, AMPLIFIED, [id number] 00:00:00 Test Item Value Reference Range Interpretation Comments GONORRHEA, TMA (test code = 99382) NEGATIVE CHLAMYDIA, TMA (test code = 46389) NEGATIVE GC AND CHLAMYDIA, AMPLIFIED, [id number] 00:00:00 Test Item Value Reference Range Interpretation Comments GONORRHEA, TMA (test code = 49523) NEGATIVE CHLAMYDIA, TMA (test code = 85823) NEGATIVE GC AND CHLAMYDIA, AMPLIFIED, [id number] 00:00:00 Test Item Value Reference Range Interpretation Comments GONORRHEA, TMA (test code = 53720) NEGATIVE CHLAMYDIA, TMA (test code = 69199) NEGATIVE Notes Date/Time Note Provider Source 2023-05-02 15:07:43 [id number]:07:43Formatting of Mini Guillermo aliyah [facility] this note might be different from the original.Tried to call patient- could not leave a message 01917-2Wqbinmzai encounter HjalAI9161-60-67F82:08:18Telepho ne encounter NoteTXT1.2.840.007485.1.13.104.2 .7.2.418885|[id number] e for patient [id number] E [address] 8218LCKFGOUPJPAVQVGUQTQEYB3119-9 5:08:181.2.840.387216.1.72 .3.15|1.2.840.978350.1.13.104.2. 7.2.727879_[id number] 2023-05-01 14:26:11 3749-41-70P96:26:11Formatting of Mini ly [facility] this note might be different from the original.Faxed CHINO as requested by patient 93633-2Wxcqurhhf encounter QycaWB4037-64-63G56:26:33Telepho ne encounter NoteTXT1.2.840.558799.1.13.104.2 .7.2.280231|[id number] e for patient bxpb35066-9VlvrHU979793427Texdjg E Love [address] 0543RVBCRVWCMYJPVSXAHXVMAN7163-3 4:26:331.2.840.484450.1.72 .3.15|1.2.840.654569.1.13.104.2. 7.2.727879_[id number] 2023-05-01 14:13:21 9777-58-38T00:13:21Summary: RE: Shayy ko [facility] S[facility] // Alijanipour PROVIDER: DAVIDSONDX: Lumbar radiculopathyLOV: 01/23/23Ambulatory clinics are not able to dispense medical records back dating past 30 days from a patient's last office visit. Sending to the [facility] contact/cash application representative, the diagnosis and the contact information for the medical records department directly to try to get all what they need to verify coverage. Once fax confirmation is received, will scan to [facility] folder. Closing encounter. 72279-1Ozjvbjyrg encounter OnilQX0622-07-35G80:22:04Telepho ne encounter NoteTXT1.2.840.745381.1.13.104.2 .7.2.055254|[id number] e for patient [id number] A [address] NtzxTohuzvwraKeulbevztHYJI239074 2302QHJXWMQYKIWIFVDHDLUNXR1870-0 4:22:041.2.840.478553.1.72 .3.15|1.2.840.380986.1.13.104.2. 7.2.727879_[id number] 2023-05-01 14:00:48 1601-98-71B50:00:48Formatting of Ana parekh [facility] this note might be different from the original.Tanja Randolph is a 42 year old femalePatient states she is needing information faxed over to her insurance company in order for them to cover her appointments. They are wanting her upcoming appt, past Dx, current Dx, Case #[id number]. [phone] [facility] 02893-4Chnrnzvvj encounter XokuNT7817-75-38O33:05:28Telepho ne encounter NoteTXT1.2.840.160929.1.13.104.2 .7.2.026806|[id number] [place] for patient [id number] A Garza[address] JyysQbhmiamrqHvnxicnfgPKNV746405 3847SOKDACEIAPFWRDBCFUKLAW7339-4 :05:281.2.840.219339.1.72 .3.15|1.2.840.293695.1.13.104.2. 7.2.727879_[id number]"
[2023-08-29 14:15] LABS: Specific Gravity 1.019 (1.005-1.030)
[2023-08-29 14:19] LABS: Specific Gravity 1.019 (1.005-1.030); Urine Bacteria None Seen /HPF (<20); Urine Bilirubin NEGATIVE (Negative); Urine Blood Negative (Negative); Urine Clarity Extremely Turbid (Clear); Urine Color Light-Yellow (Yellow); Urine Glucose NEGATIVE (Negative); Urine Mucus 1+ /HPF (None Seen); Urine Protein NEGATIVE (Negative); Urine Urobilinogen Normal (Normal)
[2023-08-29 14:38] LABS: Hematocrit 32.9 % (36.0-45.0); MCV 78.3 fL (80-100); MPV 7.5 fL (7.6-11.3); Platelets 272 thou/uL (152-406)
[2023-08-29] MEDS ORDERED: ONDANSETRON 4 MG/2 ML VIAL ONE (14:42)
[2023-08-29] MEDS ORDERED: NA CHLORIDE 0.9% 1,000 ML ONE (14:42)
[2023-08-29] MEDS ORDERED: KETOROLAC 30 MG/ML INJ ONE (14:42)
--- NOTE | 2023-08-29 15:02 | RAD REPORT ---
EXAM DESCRIPTION: CTAbdomen Pelvis W Contrast - 08/29/2023 2:47 pm CLINICAL HISTORY: Abdominal pain. ABD PAIN COMPARISON: Abdomen Pelvis W Contrast dated 03/01/2023; Abdomen Pelvis W Contrast dated 2; Abdomen Pelvis W Contrast dated 06/16/2018 TECHNIQUE: Biphasic CT imaging of the abdomen and pelvis was performed with 100 ml non-ionic IV cont rast. All CT scans are performed using dose optimization technique as appropriate and may include automated exposure control or mA/KV adjustment according to patient size. FINDINGS: The lung bases are clear. The liver, spleen, pancreas, adrenal glands and kidneys are within normal limits. Cholecystectomy cli ps. No bowel obstruction, free air, free fluid or abscess. The appendix is normal. No evidence of signi ficant lymphadenopathy. IUD is present in the uterus. No suspicious bony findings. IMPRESSION: No acute intra-abdominal or pelvic finding.
[2023-08-29 15:12] LABS: Albumin 3.5 g/dL (3.4-5.0); Bilirubin Total 0.3 mg/dL (0.2-1.0); Potassium 4.1 mEq/L (3.5-5.1); Protein, Total 7.3 g/dL (6.4-8.2)
[2023-08-29 17:37] LABS: SARS-CoV-2 Antigen Rapid Res Negative (Negative)
--- NOTE | 2023-08-29 17:42 | ER ---
Nurse's Notes [facility] Name: Aimee Randolph Age: 43 yrs Sex: Female : 1980 Arrival Date: 08/29/2023 Time: 13:00 Bed 10 Private MD: Diagnosis: Flank Pain Presentation: 08/29 13:12 Chief complaint: Patient states: lower abd pain, pressure with urination, chills, aa5 headache, nausea that began yesterday. Pt states "I did a telemedicine yesterday and they gave me Bactrim for a possible UTI". Coronavirus screen: chills. Ebola Screen: Patient denies travel to an Ebola-affected area in the 21 days before illness onset. Risk Assessment: Do you want to hurt yourself or someone else? Patient reports no desire to harm self or others. Onset of symptoms was August 2023. 13:12 Acuity: LAURITA 3 aa5 13:12 Method Of Arrival: Ambulatory aa5 13:12 Initial Sepsis Screen: Does the patient meet any 2 criteria? No. Patient's initial aa5 sepsis screen is negative. Does the patient have a suspected source of infection? Yes: Dysuria/Frequency/Urgency/UTI. 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 - Social history:: Smoking status: Reported history of juuling and/or vaping. Screenin:06 [facility] ED Fall Risk Assessment (Adult) History of falling in the last 3 months, me1 including since admission No falls in past 3 months (0 pts) Confusion or Disorientation No (0 pts) Intoxicated or Sedated No (0 pts) Impaired Gait No (0 pts) Mobility Assist Device Used No (0 pt) Altered Elimination No (0 pt) Score/Fall Risk Level 0 - 2 = Low Risk Oriented to surroundings, Provided non-skid footwear, Hourly rounding (assess needs \\T\\ fall precautionary measures) done. Abuse screen: Denies threats or abuse. Nutritional screening: No deficits noted. Tuberculosis screening: No symptoms or risk factors identified. Assessment: 15:06 General: Appears uncomfortable, well groomed, well developed, well nourished, Behavior me1 is calm, cooperative, appropriate for age, Reports lower abd pain, pressure with urination, chills, headache, nausea that began yesterday. Pt states "I did a telemedicine yesterday and they gave me Bactrim for a possible UTI". today c/o bilateral flank pain and reports some slight hematuria. Pain: Complains of pain in bilateral flank pain Pain does not radiate. Pain currently is 8 out of 10 on a pain scale. Quality of pain is described as sharp, Pain began gradually, 4 hours ago. Is continuous, Alleviated by. Neuro: Level of Consciousness is awake, alert, obeys commands, Oriented to person, place, time, situation, Appropriate for age. Cardiovascular: Capillary refill < 3 seconds Patient's skin is warm and dry. Respiratory: Airway is patent Respiratory effort is even, unlabored, Respiratory pattern is regular, symmetrical. GI: Abdomen is round. : Reports burning with urination, pain in bilateral in suprapubic area flank(s). Vital Signs: 13:12 BP 152 / 86; Pulse 72; Resp 19 S; Temp 99.4(TE); Pulse Ox 100% on R/A; Weight 81.65 kg aa5 (R); Height 4 ft. 11 in. (R); 14:37 BP 141 / 77; Pulse 58; Resp 18; Pulse Ox 98% on R/A; me1 16:30 BP 140 / 78; Pulse 52; Resp 16; Pulse Ox 100% on R/A; me1 17:59 BP 142 / 77; Pulse 51; Resp 18; Pulse Ox 100% on R/A; me1 13:12 Body Mass Index 36.36 (81.65 kg, 149.86 cm) aa5 ED Course: 13:03 Patient arrived in ED. im 13:04 Sherri García FNP-C is PHCP. kb 13:04 Ernst Dean DO is Attending Physician. kb 13:12 Arm band placed on. aa5 13:13 Triage completed. aa5 14:25 Initial lab(s) drawn, by me, sent to lab. Inserted saline lock: 22 gauge in left tm3 antecubital area, using aseptic technique. 14:27 Mildred Ochoa, RN is Primary Nurse. me1 14:49 CT Abd/Pelvis - IV Contrast Only In Process Unspecified. EDMS 15:06 Patient has correct armband on for positive identification. Bed in low position. Call me1 light in reach. Side rails up X 1. Provided Education on: POC. Verbalized understanding. . 15:06 No provider procedures requiring assistance completed. Flushed left antecubital. me1 16:38 SARS-COV-2 Antigen Rapid Sent. me1 16:38 Flu Sent. me1 18:00 IV discontinued, intact, bleeding controlled, No redness/swelling at site. Pressure me1 dressing applied. Administered Medications: 14:37 Drug: NS 0.9% IV 1000 ml IV at 1 bolus Per protocol; 1000 mL bolus Route: IV; Rate: 1 me1 bolus; Site: left antecubital; 16:00 Follow up: IV Status: Completed infusion me1 14:37 Drug: TORadol - Ketorolac IVP 15 mg IVP once Route: IVP; Site: left antecubital; me1 15:04 Follow up: Response: No adverse reaction; Pain is decreased me1 14:37 Drug: Ondansetron IVP 4 mg IVP once; over 2 minutes Route: IVP; Site: left antecubital; me1 15:04 Follow up: Response: No adverse reaction; Nausea is decreased me1 Medication: 17:42 VIS not applicable for this client. me1 Outcome: 17:41 Discharge ordered by . fartun 18:00 Discharged to home ambulatory, me1 18:00 Condition: stable 18:00 Discharge instructions given to patient, Instructed on discharge instructions, follow up and referral plans. medication usage, Demonstrated understanding of instructions, follow-up care, medications, Prescriptions given X 1, 18:01 Patient left the ED. me1 Signatures: Dispatcher [employer] EDNY Sherri García, KARENC RECREATION [employer]ERAP[employer] AIDE-Brando Young tm3 Mary Pike, RN RN aa5 Zulma Arrington Michelle, RN RN me1 Corrections: (The following items were deleted from the chart) 13:15 13:12 Pulse 72bpm; Resp 19bpm; Spontaneous; Pulse Ox 100% RA; Temp 99.4F Temporal; aa5 81.65 kg Reported; Height 4 ft. 11 in. Reported; BMI: 36.3; aa5 15:06 13:12 Chief complaint: Patient states: lower abd pain, pressure with urination, chills, me1 headache, nausea that began yesterday. Pt states "I did a telemedicine yesterday and they gave me Bactrim for a possible UTI" aa5
--- NOTE | 2023-08-29 17:42 | EDPHYS ---
Physician Documentation [facility] Name: Aimee Randolph Age: 43 yrs Sex: Female : 1980 Arrival Date: 08/29/2023 Time: 13:00 Bed 10 Private MD: ED Physician Ernst Dean HPI: 08/29 13:55 This 43 yrs old Female presents to ER via Ambulatory with complaints of kb Nausea, Flu Symptoms, Flank Pain, Abdominal Pain. 13:55 hand patient is a 43-year-old female with lower abdominal pain, pressure with kb urination, chills, headache, nausea that started yesterday. States she had a telemedicine visit and was prescribed Bactrim but started to feel worse today. . 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 - Social history:: Smoking status: Reported history of juuling and/or vaping. ROS: 13:55 Respiratory: Negative for shortness of breath, cough, wheezing, and pleuritic chest kb pain, 13:55 Constitutional: Positive for chills, 13:55 Abdomen/GI: Positive for abdominal pain, nausea, 13:55 Back: Positive for flank pain, bilaterally, 13:55 Neuro: Positive for headache, 13:55 All other systems are negative, Exam: 13:55 Constitutional: This is a well developed, well nourished patient who is awake, alert, kb and in no acute distress. Head/Face: Normocephalic, atraumatic. ENT: Moist Mucous membranes Cardiovascular: Regular rate Respiratory: Respirations even and unlabored. No increased work of breathing. Talking in full sentences Abdomen/GI: Soft, non-tender. No distention Skin: Warm, dry with normal turgor. Normal color. MS/ Extremity: Pulses equal, no cyanosis. Neurovascular intact. Full, normal range of motion. Neuro: Awake and alert, GCS 15, oriented to person, place, time, and situation. Moves all extremities. Normal gait. Vital Signs: 13:12 BP 152 / 86; Pulse 72; Resp 19 S; Temp 99.4(TE); Pulse Ox 100% on R/A; Weight 81.65 kg aa5 (R); Height 4 ft. 11 in. (R); 14:37 BP 141 / 77; Pulse 58; Resp 18; Pulse Ox 98% on R/A; me1 16:30 BP 140 / 78; Pulse 52; Resp 16; Pulse Ox 100% on R/A; me1 17:59 BP 142 / 77; Pulse 51; Resp 18; Pulse Ox 100% on R/A; me1 13:12 Body Mass Index 36.36 (81.65 kg, 149.86 cm) aa5 MDM: 13:04 Patient medically screened. kb 13:56 Differential diagnosis: uti, pyelonephritis, nonspecific abd pain. Data reviewed: vital kb signs, nurses notes. 15:15 Counseling: I had a detailed discussion with the patient and/or guardian regarding the kb historical points, exam findings, and any diagnostic results supporting the discharge/admit diagnosis, lab results, radiology results, the need for outpatient follow up, a family practitioner, to return to the emergency department if symptoms worsen or persist or if there are any questions or concerns that arise at home. 08/29 13:14 Order name: CBC with Diff; Complete Time: 14:41 kb 08/29 13:14 Order name: CMP; Complete Time: 15:14 kb 08/29 13:14 Order name: Lipase; Complete Time: 15:14 kb 08/29 13:14 Order name: Test, Urine; Complete Time: 14:19 kb 08/29 13:14 Order name: Urinalysis w/ reflexes; Complete Time: 14:20 kb 08/29 15:17 Order name: Flu; Complete Time: 17:22 kb 08/29 15:17 Order name: SARS-COV-2 Antigen Rapid; Complete Time: 17:41 kb 08/29 13:14 Order name: CT Abd/Pelvis - IV Contrast Only; Complete Time: 15:06 kb 08/29 13:14 Order name: IV Saline Lock; Complete Time: 16:38 kb 08/29 13:14 Order name: Labs collected and sent; Complete Time: 14:24 kb Administered Medications: 14:37 Drug: NS 0.9% IV 1000 ml IV at 1 bolus Per protocol; 1000 mL bolus Route: IV; Rate: 1 me1 bolus; Site: left antecubital; 16:00 Follow up: IV Status: Completed infusion me1 14:37 Drug: TORadol - Ketorolac IVP 15 mg IVP once Route: IVP; Site: left antecubital; me1 15:04 Follow up: Response: No adverse reaction; Pain is decreased me1 14:37 Drug: Ondansetron IVP 4 mg IVP once; over 2 minutes Route: IVP; Site: left antecubital; me1 15:04 Follow up: Response: No adverse reaction; Nausea is decreased me1 Disposition: 16:51 I was immediately available on-site in the Emergency Department for consultation in the ms3 care of the patient. Disposition Summary: 08/29/23 17:41 Discharge Ordered Notes: Location: Home kb Condition: Stable kb Diagnosis - Flank Pain kb Followup: kb - With: Emergency Department - When: As needed - Reason: Worsening of condition Followup: kb - With: Private Physician - When: 2 - 3 days - Reason: Recheck today's complaints, Continuance of care, Re-evaluation by your physician Discharge Instructions: - Discharge Summary Sheet kb - Flank Pain, Adult, [id number] kb Forms: - Medication Reconciliation Form kb - Thank You Letter kb - Antibiotic Education kb - Prescription Opioid Use kb - Patient Portal Instructions kb - Leadership Thank You Letter kb Prescriptions: - Zofran 4 mg Oral tablet - take 1 tablet ORAL route every 6 hours As needed; 10 tablet; Refills: 0, kb Product Selection Permitted Signatures: Dispatcher [employer] Sherri Liz, ANGEL-C ANGEL-Mary Cope, RN RN aa5 Ernst Dean DO DO ms3 Mildred Ochoa, ROULA RN me1
[2023-08-29 18:32] VITALS: TEMP 99.4
[2023-08-29 18:42] VITALS: O2SAT 100
[2023-08-29 18:43] VITALS: BP 142/77
== END 2023-08-29 18:01 | disposition home or self-care (01) ==
LOC: ER 13:00
DX: R10.9 Unspecified abdominal pain (principal); R11.0 Nausea; R51.9 Headache, unspecified; Z11.52 Encounter for screening for COVID-19; Z88.1 Allergy status to other antibiotic agents
CPT/HCPCS: 96361; 85025; 81001; 36415; 81025; 83690; 80053; 87804 ×2; 74177; 96375; 96374; 99284; 87811; Q9967; J2405; J7030

== ENCOUNTER 2024-01-02 08:55 | Emergency (ER) | payer OTHER ==
[2024-01-02] MEDS ORDERED: KETOROLAC 30 MG/ML INJ ONE (09:20)
[2024-01-02] MEDS ORDERED: LIDOCAINE 4% PATCH ONE (09:20)
[2024-01-02] MEDS ORDERED: methocarbamoL 500 MG TAB ONE (09:20)
--- NOTE | 2024-01-02 10:20 | RAD REPORT ---
EXAM DESCRIPTION: RAD - C Spine Ap/Lat - 01/02/2024 9:49 am CLINICAL HISTORY: PAIN COMPARISON: No comparisons FINDINGS/IMPRESSION: No acute fracture. Trace anterolisthesis of C4 on C5. Mild anterior endplate s purring is present at this level. These findings are likely chronic.
--- NOTE | 2024-01-02 10:41 | EDPHYS ---
Physician Documentation [facility] Name: Aimee Randolph Age: 43 yrs Sex: Female : 1980 Arrival Date: 01/02/2024 Time: 08:55 Bed 19 Private MD: Bayron James ED Physician Yoni Santos HPI: 01/01 09:15 This 43 yrs old Female presents to ER via Ambulatory with complaints of Neck ec2 pain radiates to arm. 09:15 Patient arrives today for evaluation of right neck pain radiating to the arm. Patient ec2 reports symptoms been ongoing for 1 month. Patient reports no falls or injuries or trauma, denies any issues with spine injuries. Patient reports no history of weakness in the upper extremities. Patient reports no head injuries. Patient denies any significant medical problems.. Historical: - Allergies: 09:14 Ceclor; rs5 09:14 Levaquin; rs5 - PMHx: 09:14 uterus polyp; rs5 - PSHx: 09:14 section; Cholecystectomy; heart surgery; rs5 - Immunization history:: Adult Immunizations up to date. - Infectious Disease History:: Denies. - Social history:: Smoking status: Reported history of juuling and/or vaping. ROS: 09:15 Constitutional: as per hpi ec2 Exam: 09:15 Constitutional: GEN: NAD Head: atraumatic Eyes: EOMI Ears: External ears are ec2 normal. CV: regular rate LUNGS: no respiratory distress ABD: non-distended SKIN: no evidence of rashes MSK: no evidence of trauma, no C/T/L-spine TTP, TTP to the right strap muscles, right trapezius. No deformities, no crepitus appreciated. NEURO: moves all extremities equally, bilateral upper extremities with intact strength. Intact sensation. Vital Signs: 09:06 BP 148 / 81; Pulse 70; Resp 18; Pulse Ox 99% ; Weight 83.91 kg; Height 4 ft. 11 in. ; rs5 10:45 BP 145 / 85; Pulse 73; Resp 18; Pulse Ox 99% on R/A; rs5 09:06 Body Mass Index 37.37 (83.91 kg, 149.86 cm) rs5 MDM: 09:09 Patient medically screened. ec2 09:15 Data reviewed: vital signs. ED course: Patient arrives today for evaluation of right ec2 neck pain. Examination remarkable for MSK findings as noted above. Will obtain radiograph of the neck. Suspect cervical radiculopathy causing the patient's symptoms. Additionally considering bony fracture. Doubt infectious process. Will give the patient medication for the pain. Additionally considering muscular sprain.. 10:40 ED course: Neck x-ray shows no bony fracture. Will discharge home, prescribed Robaxin ec2 as needed. Return precautions given. Presentation consistent with cervical radiculopathy.. 01/01 09:15 Order name: C Spine Ap/Lat XRAY; Complete Time: 10:40 ec2 Administered Medications: 09:27 Drug: Methocarbamol PO 500 mg PO once Route: PO; rs5 10:15 Follow up: Response: No adverse reaction rs5 09:27 Drug: Lidoderm Topical Patch 5 % (700 mg/patch) 1 patches Topical once; leave on for 12 rs5 hours; cover most painful area; may cut into smaller pieces Route: Topical; Site: affected area; 10:15 Follow up: Response: No adverse reaction; Pain is decreased rs5 09:27 Not Given (Patient Refused): [id number] mg IM once rs5 Disposition Summary: 01/02/24 10:40 Discharge Ordered Notes: Location: Home ec2 Condition: Stable ec2 Diagnosis - Cervical disc disorder with radiculopathy ec2 Followup: ec2 - With: Private Physician - When: - Reason: Re-evaluation by your physician Discharge Instructions: - Discharge Summary Sheet ec2 - Cervical Radiculopathy, [id number] ec2 Forms: - Medication Reconciliation Form ec2 - Thank You Letter ec2 - Antibiotic Education ec2 - Prescription Opioid Use ec2 - Patient Portal Instructions ec2 - Leadership Thank You Letter ec2 Prescriptions: - methocarbamol 500 mg Oral tablet - take 2 tablets ORAL route 4 times per day; 30 tablet; Refills: 0, Product ec2 Selection Permitted Signatures: Dispatcher [employer] Sebastian Beckwith RN RN rs5 Yoni Santos MD MD ec2
--- NOTE | 2024-01-02 10:41 | ER ---
Nurse's Notes [facility] Name: Aimee Randolph Age: 43 yrs Sex: Female : 1980 Arrival Date: 01/02/2024 Time: 08:55 Bed 19 Private MD: Bayron James Diagnosis: Cervical disc disorder with radiculopathy Presentation: 01/01 09:06 Chief complaint: Patient states: Neck pain x1 month that's worse today, radiates to rs5 right arm and hand. 09:06 Coronavirus screen: At this time, the client does not indicate any symptoms associated rs5 with coronavirus-19. Ebola Screen: No symptoms or risks identified at this time. Initial Sepsis Screen: Does the patient meet any 2 criteria? No. Patient's initial sepsis screen is negative. Does the patient have a suspected source of infection? No. Patient's initial sepsis screen is negative. Risk Assessment: Do you want to hurt yourself or someone else? Patient reports no desire to harm self or others. Onset of symptoms was January 02, 2024. 09:06 Method Of Arrival: Ambulatory rs5 09:06 Acuity: LAURITA 4 rs5 Historical: - Allergies: 09:14 Ceclor; rs5 09:14 Levaquin; rs5 - PMHx: 09:14 uterus polyp; rs5 - PSHx: 09:14 section; Cholecystectomy; heart surgery; rs5 - Immunization history:: Adult Immunizations up to date. - Infectious Disease History:: Denies. - Social history:: Smoking status: Reported history of juuling and/or vaping. Screenin:06 [facility] ED Fall Risk Assessment (Adult) History of falling in the last 3 months, rs5 including since admission No falls in past 3 months (0 pts) Confusion or Disorientation No (0 pts) Intoxicated or Sedated No (0 pts) Impaired Gait No (0 pts) Mobility Assist Device Used No (0 pt) Altered Elimination No (0 pt) Score/Fall Risk Level 0 - 2 = Low Risk Oriented to surroundings, Maintained a safe environment. Abuse screen: Denies threats or abuse. Nutritional screening: No deficits noted. Tuberculosis screening: No symptoms or risk factors identified. Assessment: 09:06 General: Appears in no apparent distress. comfortable, Behavior is calm, cooperative. rs5 Pain: Complains of pain in right side of neck Pain radiates to right arm Pain currently is 8 out of 10 on a pain scale. Quality of pain is described as aching, Is continuous. Neuro: Level of Consciousness is awake, alert, obeys commands, Oriented to person, place, time, situation. Cardiovascular: Patient's skin is warm and dry. Rhythm is regular. 09:06 Respiratory: Airway is patent Respiratory effort is even, unlabored, Respiratory rs5 pattern is regular, symmetrical. GI: Abdomen is round non-distended, Abd is soft and non tender X 4 quads. : No signs and/or symptoms were reported regarding the genitourinary system. EENT: No signs and/or symptoms were reported regarding the EENT system. Derm: Skin is intact, Skin is pink, warm \T\ dry. Musculoskeletal: Circulation, motion, and sensation intact. Range of motion: intact in all extremities. 10:11 Reassessment: Patient and/or family updated on plan of care and expected duration. Pain rs5 level reassessed. Patient is alert, oriented x 3, equal unlabored respirations, skin warm/dry/pink. Patient denies pain at this time. Patient states feeling better. Patient states symptoms have improved. 10:40 Reassessment: No changes from previously documented assessment. rs5 Vital Signs: 09:06 BP 148 / 81; Pulse 70; Resp 18; Pulse Ox 99% ; Weight 83.91 kg; Height 4 ft. 11 in. ; rs5 10:45 BP 145 / 85; Pulse 73; Resp 18; Pulse Ox 99% on R/A; rs5 09:06 Body Mass Index 37.37 (83.91 kg, 149.86 cm) rs5 ED Course: 08:57 Patient arrived in ED. mr 08:58 Bayron James DO is Private Physician. mr 09:02 Yoni Santos MD is Attending Physician. ec2 09:05 Sebastian Martinez, ROULA is Primary Nurse. rs5 09:06 Patient has correct armband on for positive identification. Bed in low position. Call rs5 light in reach. Side rails up X2. 09:14 Triage completed. rs5 09:51 C Spine Ap/Lat XRAY In Process Unspecified. EDMS 10:03 No provider procedures requiring assistance completed. rs5 10:55 IV discontinued, intact, bleeding controlled, No redness/swelling at site. Pressure rs5 dressing applied. Administered Medications: 09:27 Drug: Methocarbamol PO 500 mg PO once Route: PO; rs5 10:15 Follow up: Response: No adverse reaction rs5 09:27 Drug: Lidoderm Topical Patch 5 % (700 mg/patch) 1 patches Topical once; leave on for 12 rs5 hours; cover most painful area; may cut into smaller pieces Route: Topical; Site: affected area; 10:15 Follow up: Response: No adverse reaction; Pain is decreased rs5 09:27 Not Given (Patient Refused): [id number] mg IM once rs5 Medication: 10:03 VIS not applicable for this client. rs5 Outcome: 10:40 Discharge ordered by . ec2 10:55 Discharged to home ambulatory, rs5 10:55 Condition: stable 10:55 Discharge instructions given to patient, Instructed on discharge instructions, follow up and referral plans. medication usage, Demonstrated understanding of instructions, follow-up care, medications, Prescriptions given X 3, 10:59 Patient left the ED. db Signatures: Dispatcher [employer] EDNE Brandi Kunz, Reg Reg mr Marielena Vasquez, RN RN db Sebastian Martinez, RN RN rs5 Yoni Santos MD MD ec2 Corrections: (The following items were deleted from the chart) 11:07 11:06 BP 145 / 85; Pulse 73bpm; Resp 18bpm; Pulse Ox 99% RA; rs5 rs5
[2024-01-02 17:35] VITALS: BP 148/81; O2SAT 99
== END 2024-01-02 10:59 | disposition home or self-care (01) ==
LOC: ER 08:55
DX: M50.10 Cervical disc disorder with radiculopathy, unspecified cervical region (principal); Z88.1 Allergy status to other antibiotic agents
CPT/HCPCS: 72040; 99283; J2001

== ENCOUNTER 2024-05-28 08:52 | Emergency (ER) | payer OTHER ==
[2024-05-28 09:42] LABS: SARS-CoV-2 Antigen CONTROL BLUE LINE VIS/BG OK; SARS-CoV-2 Antigen Rapid Res Negative (Negative)
--- NOTE | 2024-05-28 09:48 | EDPHYS ---
Physician Documentation [facility] Name: Aimee Randolph Age: 43 yrs Sex: Female : 1980 Arrival Date: 05/28/2024 Time: 08:52 Bed 10 Private MD: ED Physician Ernst Dean HPI: 05/28 09:23 This 43 yrs old Female presents to ER via Ambulatory with complaints of Flu ms3 Symptoms. 09:23 43-year-old female with no past medical history presents to the emergency department ms3 for chills, fever, cough that began last night. Patient states her daughter tested positive for flu a yesterday.. Historical: - Allergies: 09:04 Levaquin; iw 09:04 Ceclor; iw - Home Meds: 09:04 gabapentin oral [Active]; iw - PMHx: 09:04 uterus polyp; iw - PSHx: 09:04 Cholecystectomy; section; heart surgery; iw - Immunization history:: Adult Immunizations not up to date. - Infectious Disease History:: Denies. - Social history:: Smoking status: Patient denies any tobacco usage or history of. ROS: 09:23 Constitutional: Negative for fever, and chills. Cardiovascular: Negative for chest ms3 pain, and palpitations. Abdomen/GI: Negative for abdominal pain, nausea, vomiting, diarrhea, and constipation, 09:23 MS/Extremity: Negative for injury and deformity, Skin: Negative for injury, rash, and discoloration, 09:23 Respiratory: Positive for cough, Exam: 09:23 Constitutional: This is a well developed, well nourished patient who is awake, alert, ms3 and in no acute distress. Head/Face: Normocephalic, atraumatic. Neck: Trachea midline, no cervical lymphadenopathy. Supple, full range of motion without nuchal rigidity, or vertebral point tenderness. No Meningismus. Chest/axilla: Normal chest wall appearance and motion. Nontender with no deformity. Cardiovascular: Regular rate and rhythm with a normal S1 and S2. No gallops, murmurs, or rubs. Normal PMI, no JVD. No pulse deficits. Respiratory: Lungs have equal breath sounds bilaterally, clear to auscultation and percussion. No rales, rhonchi or wheezes noted. No increased work of breathing, no retractions or nasal flaring. Abdomen/GI: Soft, non-tender, with normal bowel sounds. No distension or tympany. No guarding or rebound. No evidence of tenderness throughout. Skin: Warm, dry with normal turgor. Normal color with no rashes, no lesions, and no evidence of cellulitis. MS/ Extremity: Pulses equal, no cyanosis. Neurovascular intact. Full, normal range of motion. Vital Signs: 09:02 BP 122 / 77; Pulse 68; Resp 18; Temp 98.5; Pulse Ox 100% ; Weight 81.65 kg; Height 4 iw ft. 11 in. ; Pain 10/10; 09:02 Body Mass Index 36.36 (81.65 kg, 149.86 cm) iw 09:02 Pain Scale: Adult iw MDM: 09:16 Patient medically screened. ms3 09:23 Differential Diagnosis: Influenza Upper Respiratory Infection Viral Syndrome Other ms3 COVID. 09:52 Data reviewed: vital signs, nurses notes, lab test result(s), and as a result, I will ms3 discharge patient. Counseling: I had a detailed discussion with the patient and/or guardian regarding the historical points, exam findings, and any diagnostic results supporting the discharge/admit diagnosis, lab results, the need for outpatient follow up, to return to the emergency department if symptoms worsen or persist or if there are any questions or concerns that arise at home. Special discussion: I discussed with the patient/guardian in detail that at this point there is no indication for admission to the hospital. It is understood, however, that if the symptoms persist or worsen the patient needs to return immediately for re-evaluation. ED course: Discussed negative flu and COVID results with patient. Patient to follow-up with Dr. Sandoval in 2 to 3 days. Patient understands and agrees with plan. All questions were answered. Return precautions discussed include worsening symptoms, or any other concerns. Discussed over the counter treatment with Tylenol ibuprofen and oral hydration. Discussed with patient sensitivity/specificity of flu and COVID test as she could have had a false negative.. 05/28 09:06 Order name: Flu; Complete Time: 09:44 iw 05/28 09:06 Order name: SARS RAPID; Complete Time: :44 iw Administered Medications: No medications were administered Disposition Summary: 05/28/24 09:47 Discharge Ordered Notes: Location: Home ms3 Condition: Stable ms3 Diagnosis - Upper respiratory tract hypersensitivity reaction, site unspecified ms3 - Myalgia ms3 Followup: ms3 - With: Jeffery Sandoval DO - When: 2 - 3 days - Reason: Recheck today's complaints Discharge Instructions: - Discharge Summary Sheet ms3 - Musculoskeletal Pain ms3 - Upper Respiratory Infection, Adult, [id number] ms3 Forms: - Medication Reconciliation Form ms3 - Antibiotic Education ms3 - Prescription Opioid Use ms3 - Patient Portal Instructions ms3 - Leadership Thank You Letter ms3 Signatures: Dispatcher [employer] Lupe López, RN RN Ernst Hodge DO DO ms3
--- NOTE | 2024-05-28 09:48 | ER ---
Nurse's Notes [facility] Name: Aimee Randolph Age: 43 yrs Sex: Female : 1980 Arrival Date: 05/28/2024 Time: 08:52 Bed 10 Private MD: Diagnosis: Upper respiratory tract hypersensitivity reaction, site unspecified;Myalgia Presentation: 05/28 09:02 Chief complaint: Patient states: chills, body aches , fever, daughter tested positive iw for flu , symptoms started last night. Coronavirus screen: Client presents with at least one sign or symptom that may indicate coronavirus-19. Ebola Screen: No symptoms or risks identified at this time. Initial Sepsis Screen: Does the patient meet any 2 criteria? No. Patient's initial sepsis screen is negative. Does the patient have a suspected source of infection? No. Patient's initial sepsis screen is negative. Risk Assessment: Do you want to hurt yourself or someone else? Patient reports no desire to harm self or others. Onset of symptoms was May 27, 2024. 09:02 Method Of Arrival: Ambulatory iw 09:02 Acuity: LAURITA 4 iw Historical: - Allergies: 09:04 Levaquin; iw 09:04 Ceclor; iw - Home Meds: 09:04 gabapentin oral [Active]; iw - PMHx: 09:04 uterus polyp; iw - PSHx: 09:04 Cholecystectomy; section; heart surgery; iw - Immunization history:: Adult Immunizations not up to date. - Infectious Disease History:: Denies. - Social history:: Smoking status: Patient denies any tobacco usage or history of. Vital Signs: 09:02 BP 122 / 77; Pulse 68; Resp 18; Temp 98.5; Pulse Ox 100% ; Weight 81.65 kg; Height 4 iw ft. 11 in. ; Pain 10; 09:02 Body Mass Index 36.36 (81.65 kg, 149.86 cm) iw 09:02 Pain Scale: Adult iw ED Course: 08:54 Patient arrived in ED. mr 09:01 Ernst Dean DO is Attending Physician. ms3 09:04 Triage completed. iw 09:47 Jeffery Sandoval DO is Referral Physician. ms3 Administered Medications: No medications were administered Outcome: :47 Discharge ordered by MD. ms3 10:07 Patient left the ED. iw Signatures: Brandi Kunz, Reg Reg mr Lupe Lei, RN RN iw Ernst Dean DO DO ms3 Corrections: (The following items were deleted from the chart) 09:05 09:02 Pulse 68bpm; Resp 18bpm; Pulse Ox 100%; Temp 98.5F; 81.65 kg; Height 4 ft. 11 iw in.; BMI: 36.3; Pain 07/11, Adult; iw
[2024-05-28 10:13] VITALS: BP 122/77; TEMP 98.5; O2SAT 100
== END 2024-05-28 10:07 | disposition home or self-care (01) ==
LOC: ER 08:52
DX: J06.9 Acute upper respiratory infection, unspecified (principal); M79.10 Myalgia, unspecified site; Z11.52 Encounter for screening for COVID-19
CPT/HCPCS: 36415; 87804; 87811; 99281

== ENCOUNTER 2024-07-22 18:32 | Emergency (ER) | payer OTHER ==
[2024-07-22 19:45] LABS: Absolute Basophils 0.1 K/uL (0-0.5); Absolute Eosinophils 0.2 K/uL (0-0.5); Absolute Lymphocytes (CBC) 1.7 K/uL (0.7-4.9); Absolute Monocytes 0.4 K/uL (0.1-1.3); Absolute Neutrophil 4.7 K/uL (1.8-8.0); Basophils % 1.2 % (0-1.3); Eosinophils % 2.2 % (0-4.4); Hemoglobin 9.8 g/dL (12.0-15.0); Lymphocytes % 24.1 % (15.3-44.8); MCH 23.2 pg (27.0-35.0); MCHC 32.5 g/dL (32.0-36.0); MCV 71.3 fL (80-100); MPV 7.4 fL (7.6-11.3); Monocytes % 5.7 % (3.3-12.3); Neutrophils % 66.8 % (41.7-73.7); Nucleated Red Blood Cells % 0.1 % (0-0); Platelets 308 thou/uL (152-406); RBC Red Blood Cell Count 4.21 M/uL (3.86-4.86); Red Cell Distribution Width 16.7 % (12.1-15.2)
[2024-07-22 19:46] LABS: Specific Gravity 1.021 (1.005-1.030); Sqamous Epithelial <5 /HPF (None Seen); Urine Bacteria <20 /HPF (<20); Urine Bilirubin NEGATIVE (Negative); Urine Blood Negative (Negative); Urine Clarity Extremely Turbid (Clear); Urine Color Light-Yellow (Yellow); Urine Crystals Unidentified Few /HPF (None Seen); Urine Culture Reflex Order NOT NEEDED; Urine Glucose NEGATIVE (Negative); Urine Ketones NEGATIVE (Negative); Urine Microscopic Reflex YN ORDER UMIC; Urine Mucus 3+ /HPF (None Seen); Urine Nitrite NEGATIVE (Negative); Urine Protein TRACE (Negative); Urine RBC <5 /HPF (None Seen); Urine Urobilinogen 1+ (Normal); Urine WBC Clump Rare /HPF (None Seen); Urine Yeast (Budding) Few /HPF (None Seen); Urine pH 7.5 (5.0-7.0)
[2024-07-22] MEDS ORDERED: ONDANSETRON 4 MG/2 ML VIAL ONE (19:56)
[2024-07-22] MEDS ORDERED: NA CHLORIDE 0.9% 1,000 ML ONE (19:56)
[2024-07-22] MEDS ORDERED: KETOROLAC 30 MG/ML INJ ONE (19:56)
[2024-07-22 20:13] LABS: ALT/SGPT 18 U/L (13-56); Albumin 3.8 g/dL (3.4-5.0); Alkaline Phosphatase 79 U/L (45-117); Anion Gap 8.2 mEq/L (5.0-15.0); BUN Blood Urea Nitrogen 10 mg/dL (7-18); Bicarbonate 22 mEq/L (21-32); Bilirubin Total 0.4 mg/dL (0.2-1.0); Globulin 3.7 g/dL (2.3-3.5); Glomerular Filtration Rate 90 ml/min (=/>90); Glucose Level 67 mg/dL (74-106); Lipase 62 U/L (13-75); Potassium 3.2 mEq/L (3.5-5.1); Protein, Total 7.5 g/dL (6.4-8.2); Sodium Level 141 mEq/L (136-145)
[2024-07-22 20:18] LABS: AST/SGOT < 10 U/L (15-37)
--- NOTE | 2024-07-22 21:02 | RAD REPORT ---
EXAMINATION: CT ABDOMEN AND PELVIS WITH CONTRAST CLINICAL INDICATION: Abdominal pain TECHNIQUE: CT abdomen and pelvis was performed, after the administration of 100 cc Isovue-300.. Sagit niecy and coronal reconstructions were obtained. One or more of the following dose reduction techniques were used: Automated exposure control, adjustment of the mA and kV according to patient si ze, and iterative reconstruction. Unless otherwise specified, incidental findings do not require dedicated imaging follow-up. [id number]. Oral contrast was not given which limits evaluation of bowel and appendix. COMPARISON: 2022 and 2017 FINDINGS: Small hepatic cyst. The spleen, pancreas, adrenals and kidneys unremarkable Cholecystectomy 2 cysts within the left ovary. Largest 2.3 cm. These are benign. No follow-up imaging recommended. Sm all amount of free fluid within the pelvis. Fibroids are present. IUD is present within the uterus. No evidence of diverticulitis. : IMPRESSION: 2.3 cm left ovarian cyst. Small amount of free fluid within the pelvis. Fibroid uterus
--- NOTE | 2024-07-22 21:28 | ER ---
Nurse's Notes [facility] Name: Aimee Randolph Age: 44 yrs Sex: Female : 1980 Arrival Date: 07/22/2024 Time: 18:32 Bed 26 Private MD: Diagnosis: Other ovarian cysts Presentation: 07/22 18:56 Chief complaint: Patient states: Abdominal pain, nausea, chills, SIU, low grade fever, ll1 lightheaded for 1 week, worse past two days. Coronavirus screen: Client denies travel out of the [place] in the last 14 days. At this time, the client does not indicate any symptoms associated with coronavirus-19. Ebola Screen: Patient denies travel to an Ebola-affected area in the 21 days before illness onset. Initial Sepsis Screen: Does the patient meet any 2 criteria? No. Patient's initial sepsis screen is negative. Does the patient have a suspected source of infection? No. Patient's initial sepsis screen is negative. Risk Assessment: Do you want to hurt yourself or someone else? Patient reports no desire to harm self or others. Onset of symptoms was July 15, 2024. 18:56 Method Of Arrival: Ambulatory ll1 18:56 Acuity: LAURITA 3 ll1 Triage Assessment: 18:58 General: Appears uncomfortable, Behavior is calm, cooperative, appropriate for age, ll1 Reports chills for fatigue for. Neuro: Reports dizziness, headache weakness. GI: Reports lower abdominal pain, upper abdominal pain, nausea. : Reports pain with urination, urinary frequency. Historical: - Allergies: 18:47 Ceclor; ll1 18:47 Levaquin; ll1 - PMHx: 18:47 uterus polyp; ll1 18:58 pre diabetes; iron low; ll1 - PSHx: 18:47 section; Cholecystectomy; heart surgery; ll1 - Immunization history:: Adult Immunizations up to date. - Social history:: Smoking status: Patient denies any tobacco usage or history of. Screenin:46 [facility] ED Fall Risk Assessment (Adult) History of falling in the last 3 months, jb4 including since admission No falls in past 3 months (0 pts) Confusion or Disorientation No (0 pts) Intoxicated or Sedated No (0 pts) Impaired Gait No (0 pts) Mobility Assist Device Used No (0 pt) Altered Elimination No (0 pt) Score/Fall Risk Level 0 - 2 = Low Risk Oriented to surroundings, Maintained a safe environment. Abuse screen: Denies threats or abuse. Nutritional screening: No deficits noted. Tuberculosis screening: No symptoms or risk factors identified. Assessment: 19:00 General: Appears in no apparent distress. comfortable, Behavior is calm, cooperative, jb4 appropriate for age. Pain: Complains of pain in abdomen Pain does not radiate. Pain currently is 9 out of 10 on a pain scale. Neuro: Level of Consciousness is awake, alert, obeys commands, Oriented to person, place, time, situation. Cardiovascular: Patient's skin is warm and dry. Respiratory: Airway is patent Respiratory effort is even, unlabored, Respiratory pattern is regular, symmetrical. GI: Reports nausea, vomiting. : No signs and/or symptoms were reported regarding the genitourinary system. EENT: No signs and/or symptoms were reported regarding the EENT system. Derm: Skin is intact, Skin is pink, warm \T\ dry. Musculoskeletal: Circulation, motion, and sensation intact. Range of motion: intact in all extremities. 21:46 Reassessment: Patient appears in no apparent distress at this time. Patient and/or jb4 family updated on plan of care and expected duration. Pain level reassessed. Patient is alert, oriented x 3, equal unlabored respirations, skin warm/dry/pink. Patient states feeling better. Vital Signs: 18:56 BP 130 / 72; Pulse 72; Resp 17; Temp 97.6; Pulse Ox 100% ; Weight 80.29 kg; Height 4 ll1 ft. 11 in. ; Pain 9/10; 21:17 BP 126 / 73; Pulse 55; Resp 16; Pulse Ox 100% on R/A; jb4 18:56 Body Mass Index 35.75 (80.29 kg, 149.86 cm) ll1 18:56 Pain Scale: Adult ll1 ED Course: 18:36 Patient arrived in ED. ra3 18:47 Arm band placed on. ll1 18:54 Sherri García FNP-C [facility]. kb 18:54 Sameer Diaz MD is Attending Physician. kb 18:57 Triage completed. ll1 19:42 CBC with Diff Sent. jb4 19:42 CMP Sent. jb4 19:42 Lipase Sent. jb4 19:42 Test, Urine Sent. jb4 19:42 Urinalysis w/ reflexes Sent. jb4 20:30 CT Abd/Pelvis - IV Contrast Only In Process Unspecified. EDMS 21:17 Bryan Gates, RN is Primary Nurse. jb4 21:46 Patient has correct armband on for positive identification. Call light in reach. Side jb4 rails up X 1. Provided Education on: discharge instructions.. 21:46 No provider procedures requiring assistance completed. IV discontinued, intact, jb4 bleeding controlled, No redness/swelling at site. Pressure dressing applied. Administered Medications: 20:10 Drug: Ondansetron IVP 4 mg IVP once; over 2 minutes Route: IVP; Site: right forearm; jb4 20:40 Follow up: Response: No adverse reaction; Marked relief of symptoms; Nausea is decreasedjb4 20:10 Drug: NS 0.9% IV 1000 ml IV at 1 bolus Per protocol; to be given as a bolus over 60 jb4 minutes Route: IV; Rate: 1 bolus; Site: right forearm; 21:10 Follow up: Response: No adverse reaction; IV Status: Completed infusion; IV Intake: jb4 1000ml 20:24 Drug: TORadol - Ketorolac IVP 15 mg IVP once Route: IVP; Site: right forearm; jb4 20:50 Follow up: Response: No adverse reaction; Marked relief of symptoms; Pain is decreased jb4 21:38 Drug: Potassium Chloride PO 40 mEq PO once Route: PO; jb4 21:43 Follow up: Response: Medication administered at discharge. jb4 Intake: 21:10 IV: 1000ml; Total: 1000ml. jb4 Outcome: 21:28 Discharge ordered by . fartun 21:46 Discharged to home ambulatory, jb4 21:46 Condition: stable 21:46 Discharge instructions given to patient, Instructed on discharge instructions, follow up and referral plans. medication usage, Demonstrated understanding of instructions, follow-up care, medications, Prescriptions given X 2, 21:47 Patient left the ED. jb4 Signatures: Dispatcher [employer] EDMS Sherri García, KARENC ANGEL-Bryan Haque RN RN jb4 Kamron Zhou RN RN 1 Janice De La Fuente ra3 Corrections: (The following items were deleted from the chart) 18:59 18:56 Pulse 72bpm; Resp 17bpm; Pulse Ox 100%; Temp 97.6F; 80.29 kg; Height 4 ft. 11 ll1 in.; BMI: 35.7; Pain 9/10, Adult; ll1 20:23 20:10 NS 0.9% IV 1000 ml IV at 1 bolus in right antecubital jb4 jb4
--- NOTE | 2024-07-22 21:28 | EDPHYS ---
Physician Documentation [facility] Name: Aimee Randolph Age: 44 yrs Sex: Female : 1980 Arrival Date: 07/22/2024 Time: 18:32 Bed 26 Private MD: ED Physician Sameer Diaz HPI: 07/22 23:08 This 44 yrs old Female presents to ER via Ambulatory with complaints of kb Abdominal Pain, Nausea. 23:08 Patient is a 44-year-old female who presents for abdominal pain, nausea, chills, kb low-grade fever, headache that started 1 week ago and has been worse over the last 2 days. Denies vomiting or diarrhea.. Historical: - Allergies: 18:47 Ceclor; ll1 18:47 Levaquin; ll1 - PMHx: 18:47 uterus polyp; ll1 18:58 pre diabetes; iron low; ll1 - PSHx: 18:47 section; Cholecystectomy; heart surgery; ll1 - Immunization history:: Adult Immunizations up to date. - Social history:: Smoking status: Patient denies any tobacco usage or history of. ROS: 23:08 Constitutional: As per HPI kb Exam: 23:08 Constitutional: This is a well developed, well nourished patient who is awake, alert, kb and in no acute distress. Head/Face: Normocephalic, atraumatic. ENT: Moist Mucous membranes Cardiovascular: Regular rate Respiratory: Respirations even and unlabored. No increased work of breathing. Talking in full sentences Skin: Warm, dry with normal turgor. Normal color. MS/ Extremity: Pulses equal, no cyanosis. Neurovascular intact. Full, normal range of motion. Neuro: Awake and alert, GCS 15, oriented to person, place, time, and situation. 23:08 Abdomen/GI: Inspection: abdomen appears normal, Bowel sounds: normal, Palpation: soft, in all quadrants, mild abdominal tenderness, in all quadrants, Vital Signs: 18:56 BP 130 / 72; Pulse 72; Resp 17; Temp 97.6; Pulse Ox 100% ; Weight 80.29 kg; Height 4 ll1 ft. 11 in. ; Pain 9/10; 21:17 BP 126 / 73; Pulse 55; Resp 16; Pulse Ox 100% on R/A; jb4 18:56 Body Mass Index 35.75 (80.29 kg, 149.86 cm) ll1 18:56 Pain Scale: Adult ll1 MDM: 18:54 Medical Screening Exam initiated kb 23:08 Differential diagnosis: non-specific abd pain, urinary tract infection, viral kb infection, ovarian cyst. Data reviewed: vital signs, nurses notes. Counseling: I had a detailed discussion with the patient and/or guardian regarding the historical points, exam findings, and any diagnostic results supporting the discharge/admit diagnosis, lab results, radiology results, the need for outpatient follow up, a family practitioner, an OB/Gyne specialist, to return to the emergency department if symptoms worsen or persist or if there are any questions or concerns that arise at home. 07/22 19:01 Order name: CBC with Diff; Complete Time: 20:01 kb 07/22 19: Order name: CMP; Complete Time: 20:19 kb 07/22 19: Order name: Lipase; Complete Time: 20:19 kb 07/22 19: Order name: Test, Urine; Complete Time: 20:01 kb 07/22 19:01 Order name: Urinalysis w/ reflexes; Complete Time: 20:01 kb 07/22 19:01 Order name: CT Abd/Pelvis - IV Contrast Only; Complete Time: 21:05 kb 07/22 19:01 Order name: IV Saline Lock; Complete Time: 19:42 kb 07/22 19:01 Order name: Labs collected and sent; Complete Time: 19:42 kb Administered Medications: 20:10 Drug: Ondansetron IVP 4 mg IVP once; over 2 minutes Route: IVP; Site: right forearm; jb4 20:40 Follow up: Response: No adverse reaction; Marked relief of symptoms; Nausea is decreasedjb4 20:10 Drug: NS 0.9% IV 1000 ml IV at 1 bolus Per protocol; to be given as a bolus over 60 jb4 minutes Route: IV; Rate: 1 bolus; Site: right forearm; 21:10 Follow up: Response: No adverse reaction; IV Status: Completed infusion; IV Intake: jb4 1000ml 20:24 Drug: TORadol - Ketorolac IVP 15 mg IVP once Route: IVP; Site: right forearm; jb4 20:50 Follow up: Response: No adverse reaction; Marked relief of symptoms; Pain is decreased jb4 21:38 Drug: Potassium Chloride PO 40 mEq PO once Route: PO; jb4 21:43 Follow up: Response: Medication administered at discharge. jb4 Disposition Summary: 07/22/24 21:28 Discharge Ordered Notes: Location: Home kb Condition: Stable kb Diagnosis - Other ovarian cysts kb Followup: kb - With: Emergency Department - When: As needed - Reason: Worsening of condition Followup: kb - With: Private Physician - When: 2 - 3 days - Reason: Recheck today's complaints, Continuance of care, Re-evaluation by your physician Discharge Instructions: - Discharge Summary Sheet kb - Ovarian Cyst, [id number] kb Forms: - Medication Reconciliation Form kb - Antibiotic Education kb - Prescription Opioid Use kb - Patient Portal Instructions kb - Leadership Thank You Letter kb Prescriptions: - Zofran 4 mg Oral tablet - take 1 tablet ORAL route every 6 hours As needed; 12 tablet; Refills: 0, kb Product Selection Permitted - Diclofenac Sodium 75 mg Oral tablet, delayed release (enteric coated) - take 1 tablet ORAL route 2 times per day As needed; 30 tablet; Refills: 0, kb Product Selection Permitted Signatures: Dispatcher [employer] EDMS Sherri García, BUS ANALYST-C BUS ANALYST-CkBryan Jain, RN RN jb4 Kamron Zhou, RN RN ll1 Corrections: (The following items were deleted from the chart) 19:01 19:01 CBC+H.LAB.BRZ ordered. EDMS EDMS 19:01 19:01 COMPREHENSIVE METABOLIC PANEL+C.LAB.BRZ ordered. EDMS EDMS 19:01 19:01 LIPASE+C.LAB.BRZ ordered. EDMS EDMS 19:01 19:01 Test, Urine+UC.LAB.BRZ ordered. EDMS EDMS 19:01 19:01 Urinalysis+U.LAB.BRZ ordered. EDMS EDMS
[2024-07-22] MEDS ORDERED: POTASSIUM CL SA 10 MEQ TAB PO ONE (21:34)
[2024-07-23 03:15] VITALS: TEMP 97.6; O2SAT 100
[2024-07-23 03:16] VITALS: BP 126/73
== END 2024-07-22 21:47 | disposition home or self-care (01) ==
LOC: ER 18:32
DX: N83.299 Other ovarian cyst, unspecified side (principal)
CPT/HCPCS: 96361; 85025; 81001; 36415; 81025; 83690; 80053; 74177; 96375; 96374; 99284; Q9967; J2405; J7030

== ENCOUNTER 2024-08-30 21:12 | Emergency (ER) | payer OTHER ==
[2024-08-30] MEDS ORDERED: DIPHENHYDRAMINE 50 MG/ML VIAL ONE (22:11)
[2024-08-30] MEDS ORDERED: NA CHLORIDE 0.9% 1,000 ML ONE (22:12)
[2024-08-30] MEDS ORDERED: FAMOTIDINE 20 MG/2 ML VIAL IV ONE (22:12)
[2024-08-30 22:23] LABS: Absolute Basophils 0.1 K/uL (0-0.5); Absolute Eosinophils 0.3 K/uL (0-0.5); Absolute Lymphocytes (CBC) 1.8 K/uL (0.7-4.9); Absolute Monocytes 0.4 K/uL (0.1-1.3); Absolute Neutrophil 4.1 K/uL (1.8-8.0); Basophils % 0.9 % (0-1.3); Hematocrit 31.4 % (36.0-45.0); Hemoglobin 10.2 g/dL (12.0-15.0); Lymphocytes % 26.9 % (15.3-44.8); MCH 25.6 pg (27.0-35.0); MCHC 32.6 g/dL (32.0-36.0); MCV 78.5 fL (80-100); MPV 7.9 fL (7.6-11.3); Monocytes % 6.6 % (3.3-12.3); Neutrophils % 60.6 % (41.7-73.7); Platelets 224 thou/uL (152-406); Red Cell Distribution Width 23.2 % (12.1-15.2)
--- NOTE | 2024-08-30 22:26 | RAD REPORT ---
EXAM: Chest Single View HISTORY: CHEST PAIN COMPARISON: 04/19/2020 FINDINGS: LUNGS/PLEURA: The lungs are clear. No pleural effusions or pneumothorax. No pulmonary edema. MEDIASTINUM: The mediastinal silhouette is within normal limits. CARDIAC: The cardiac silhouette is within normal limits. UPPER ABDOMEN: No significant abnormality. BONES: No acute fracture. LINES/TUBES/OTHER: N/A IMPRESSION: No evidence of acute cardiopulmonary disease.
[2024-08-30 22:42] LABS: Anion Gap 11.3 mEq/L (5.0-15.0); Potassium 3.3 mEq/L (3.5-5.1); Troponin High Sensitivity 4.7 pg/mL (<58.9)
[2024-08-30 22:52] LABS: Anisocytosis 1+; Blood Morphology Comment NOTED (NOT SEEN); Platelet Estimate ADEQ; White Blood Cell Scan OK (OK)
[2024-08-30 22:53] LABS: Polychromasia SLIGHT
--- NOTE | 2024-08-30 23:43 | ER ---
Nurse's Notes [facility] Name: Aimee Randolph Age: 44 yrs Sex: Female : 1980 Arrival Date: 08/30/2024 Time: 21:12 Bed 13 Private MD: Diagnosis: Other pruritus;Anxiety disorder, unspecified;Bradycardia, unspecified Presentation: 08/30 21:17 Chief complaint: Patient states: c/o itching for the past couple of days and started me1 feeling sob with chest tightness tonight. PCP increased topamax dose from 50 mg to 100 mg and thought that might be what was making her itch so she went back down to 50 mg but continues to itch. Patient started norethindrone 5 mg on 08/06/24 but was concerned it may cause the itching. Decided to come to ER due to the sob and chest tightness. Coronavirus screen: Vaccine status: Patient reports receiving the 2nd dose of the covid vaccine. Ebola Screen: No symptoms or risks identified at this time. Onset: The symptoms/episode began/occurred 5 day(s) ago. Anaphylaxis evaluation, no signs or symptoms of anaphylaxis were noted. Initial Sepsis Screen: Does the patient meet any 2 criteria? No. Patient's initial sepsis screen is negative. Does the patient have a suspected source of infection? No. Patient's initial sepsis screen is negative. Risk Assessment: Do you want to hurt yourself or someone else? Patient reports no desire to harm self or others. Onset of symptoms was August 25, 2024. 21:17 Method Of Arrival: Ambulatory co1 21:17 Acuity: LAURITA 4 me1 Triage Assessment: 21:23 General: Appears in no apparent distress. uncomfortable, well groomed, well developed, me1 well nourished, Behavior is calm, cooperative, appropriate for age, Reports itching that started 5 days ago but started becoming sob and have chest tightness tonight. Pain: Denies pain. EENT: No signs and/or symptoms were reported regarding the EENT system. Neuro: Level of Consciousness is awake, alert, obeys commands, Oriented to person, place, time, situation, Appropriate for age. Cardiovascular: Patient's skin is warm and dry. Cardiovascular:. Cardiovascular: Reports chest tightness. Respiratory: Airway is patent Respiratory effort is even, unlabored, Respiratory pattern is regular, symmetrical. Respiratory: Reports shortness of breath. GI: No signs and/or symptoms were reported involving the gastrointestinal system. : No signs and/or symptoms were reported regarding the genitourinary system. Derm: Derm: Skin is intact, is healthy with good turgor, Skin is pink, warm \T\ dry. Reports itching, since about 5 days ago. Musculoskeletal: No signs and/or symptoms reported regarding the musculoskeletal system. 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 - Infectious Disease History:: Denies. - Social history:: Smoking status: Patient denies any tobacco usage or history of. Screenin:00 [facility] ED Fall Risk Assessment (Adult) History of falling in the last 3 months, kj2 including since admission No falls in past 3 months (0 pts) Confusion or Disorientation No (0 pts) Intoxicated or Sedated No (0 pts) Impaired Gait No (0 pts) Mobility Assist Device Used No (0 pt) Altered Elimination No (0 pt) Score/Fall Risk Level 0 - 2 = Low Risk Maintained a safe environment, Hourly rounding (assess needs \T\ fall precautionary measures) done. Abuse screen: Denies threats or abuse. Denies injuries from another. Nutritional screening: No deficits noted. Tuberculosis screening: No symptoms or risk factors identified. Assessment: 22:00 General: Appears in no apparent distress. Behavior is calm, cooperative. Pain: kj2 Complains of pain in chest. Neuro: Level of Consciousness is awake, alert, obeys commands, Oriented to person, place, time, situation. Cardiovascular: Patient's skin is warm and dry. Respiratory: Airway is patent Respiratory effort is unlabored, Breath sounds are clear bilaterally. 23:00 Reassessment: Patient appears in no apparent distress at this time. Patient and/or kj2 family updated on plan of care and expected duration. Pain level reassessed. Patient is alert, oriented x 3, equal unlabored respirations, skin warm/dry/pink. 23:52 Reassessment: Patient appears in no apparent distress at this time. Patient and/or kj2 family updated on plan of care and expected duration. Pain level reassessed. Patient is alert, oriented x 3, equal unlabored respirations, skin warm/dry/pink. 23:58 Reassessment: Provider is aware of heart rate. kj2 Vital Signs: 21:17 BP 148 / 83; Pulse 65; Resp 18; Temp 98.1; Pulse Ox 100% ; Weight 81.65 kg; Height 4 me1 ft. 11 in. ; Pain 8/10; 22:30 BP 121 / 72; Pulse 38; Resp 18; Pulse Ox 100% on R/A; kj2 23:48 BP 118 / 68; Pulse 40; Resp 18; Temp 98; Pulse Ox 100% ; kj2 21:17 Body Mass Index 36.36 (81.65 kg, 149.86 cm) me1 21:17 Pain Scale: Adult me1 ED Course: 21:13 Patient arrived in ED. jj6 21:14 Cathleen Perez PA-C is PHCP. sb4 21:14 Blaine Alonzo MD is Attending Physician. sb4 21:23 Triage completed. me1 21:23 Arm band placed on Patient placed in an exam room. me1 21:35 Lisset Mendes, ROULA is Primary Nurse. kj2 22:00 Patient has correct armband on for positive identification. Provided Education on: call kj2 light. 22:19 Inserted saline lock: 22 gauge in right hand, using aseptic technique. Blood collected. oe Flushed with 10 mL NS. 22:21 XRAY Chest (1 view) In Process Unspecified. EDMS 23:42 Demetri Dennis MD is Referral Physician. sb4 23:44 EKG done, by ED staff, reviewed by Cathleen Perez PA-C. oe 23:52 No provider procedures requiring assistance completed. kj2 23:53 IV discontinued, intact, bleeding controlled, No redness/swelling at site. Pressure kj2 dressing applied. Administered Medications: 22:15 Drug: Famotidine IVP 20 mg IVP once; dilute with 10 mL 0.9% NaCl; give over 2 minutes kj2 Route: IVP; Site: right hand; 08/31 00:00 Follow up: Response: No adverse reaction kj2 08/30 22:18 Drug: diphenhydrAMINE IVP 25 mg IVP once Route: IVP; Site: right hand; kj2 08/31 00:00 Follow up: Response: No adverse reaction kj08/30 22:21 Drug: NS 0.9% IV 1000 ml IV at 1 bolus Per protocol; to be given as a bolus over 60 kj2 minutes Route: IV; Rate: 1 bolus; Site: right hand; 23:25 Follow up: Response: No adverse reaction; IV Status: Completed infusion; IV Intake: kj2 1000ml Medication: 23:51 VIS not applicable for this client. kj2 Intake: 23:25 IV: 1000ml; Total: 1000ml. kj2 Outcome: 23:43 Discharge ordered by . sb4 23:52 Condition: stable kj2 23:53 Discharged to home ambulatory, kj2 23:53 Discharge instructions given to patient, Instructed on discharge instructions, follow up and referral plans. Demonstrated understanding of 08/31 00:09 Patient left the ED. kj2 Signatures: Dispatcher [employer] EDMS Salvador Becker Jennifer jj6 Cathleen Perez PA-C PA-C sb4 Mildred Ochoa, RN RN me1 Lisset Mendes, ROULA RN kj2
--- NOTE | 2024-08-30 23:43 | EDPHYS ---
Physician Documentation [facility] Name: Aimee Randolph Age: 44 yrs Sex: Female : 1980 Arrival Date: 08/30/2024 Time: 21:12 Bed 13 Private MD: ED Physician Blaine Alonzo HPI: 08/31 00:30 This 44 yrs old Female presents to ER via Ambulatory with complaints of sb4 Itching, Chest Tightness. 00:30 patient reports itching x 5 days as well as intermittent chest tightness and sob. she sb4 adamantly denies any new foods, detergents, allergens. she has been taking alyssa daily which improves the symptoms. additionally, she states that she has been under a lot of stress lately. denies any n/v/d, fever, chills, wheezing. 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 - Infectious Disease History:: Denies. - Social history:: Smoking status: Patient denies any tobacco usage or history of. ROS: 08/31 00:30 Constitutional: Negative for fever, chills, and weight loss, sb4 Cardiovascular: Positive for chest pain, Respiratory: Positive for shortness of breath, Skin: Positive for itching, All other systems are negative, Exam: 00:30 Head/Face: Normocephalic, atraumatic. Eyes: Extra-ocular motions intact. Periorbital sb4 areas with no swelling, redness, or edema. ENT: Mucous membranes moist. Cardiovascular: Regular rate and rhythm with a normal S1 and S2. Respiratory: No increased work of breathing, no retractions or nasal flaring. Abdomen/GI: Soft, non-tender, no distension. 00:30 Constitutional: The patient appears alert, awake, anxious, restless, itching 00:30 Skin: rash a mild rash is noted, rash can be described as urticarial, and is diffusely located, Vital Signs: 08/30 21:17 BP 148 / 83; Pulse 65; Resp 18; Temp 98.1; Pulse Ox 100% ; Weight 81.65 kg; Height 4 me1 ft. 11 in. ; Pain 8/10; 22:30 BP 121 / 72; Pulse 38; Resp 18; Pulse Ox 100% on R/A; kj2 23:48 BP 118 / 68; Pulse 40; Resp 18; Temp 98; Pulse Ox 100% ; kj2 21:17 Body Mass Index 36.36 (81.65 kg, 149.86 cm) me1 21:17 Pain Scale: Adult me1 MDM: 21:27 Medical Screening Exam initiated sb4 08/31 00:30 Data reviewed: vital signs, nurses notes, lab test result(s), EKG, radiologic studies, sb4 I have discussed the patient's presentation/case with the attending Emergency Department Physician; and as a result, I will discharge patient. Consideration of Admission/Observation Escalation of care including admission/observation considered. 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 ED course: symptoms improved with benadryl and fluids. explained that her symptoms could be secondary to a stress reaction and advised reducing stress to the best of her ability as well as continuing alyssa daily. her HR fell into the 30s while she was sleeping but came back into the 50s/60s while awake and speaking with me. she reports feeling better, denies any dizziness or weakness. recommended follow up with cardiology or to return to the ED if HR remains low. she understands. 08/30 21:42 Order name: Basic Metabolic Panel; Complete Time: 22:42 sb4 08/30 21:42 Order name: CBC with Diff; Complete Time: 22:58 sb4 08/30 21:42 Order name: Troponin HS; Complete Time: 22:42 sb4 08/30 22:30 Order name: CBC Smear Scan; Complete Time: 22:58 EDMS 08/30 21:42 Order name: XRAY Chest (1 view); Complete Time: 22:32 sb4 08/30 21:42 Order name: Cardiac monitoring; Complete Time: 00:09 sb4 08/30 21:42 Order name: EKG - Nurse/Tech; Complete Time: 00:06 sb4 08/30 21:42 Order name: IV Saline Lock; Complete Time: 22:22 sb4 08/30 21:42 Order name: Labs collected and sent; Complete Time: 22:22 sb4 08/30 21:42 Order name: O2 Per Protocol; Complete Time: 00:09 sb4 08/30 21:42 Order name: O2 Sat Monitoring; Complete Time: 00:09 sb4 EC/29 23:36 Rate is 36 beats/min. Rhythm is regular, Sinus bradycardia. Left axis deviation noted. sb4 CA interval is normal at 188 msec. QRS interval is normal at 136 msec. QT interval is normal at 462 msec. No Q waves. T waves are Normal. Clinical impression: No evidence of ischemia. Interpreted by me. Reviewed by me. Administered Medications: 22:15 Drug: Famotidine IVP 20 mg IVP once; dilute with 10 mL 0.9% NaCl; give over 2 minutes kj2 Route: IVP; Site: right hand; 08/31 00:00 Follow up: Response: No adverse reaction [facility] 08/30 22:18 Drug: diphenhydrAMINE IVP 25 mg IVP once Route: IVP; Site: right hand; kj2 08/31 00:00 Follow up: Response: No adverse reaction [facility] 08/30 22:21 Drug: NS 0.9% IV 1000 ml IV at 1 bolus Per protocol; to be given as a bolus over 60 kj2 minutes Route: IV; Rate: 1 bolus; Site: right hand; 23:25 Follow up: Response: No adverse reaction; IV Status: Completed infusion; IV Intake: kj2 1000ml Disposition: 08/31 04:00 Co-signature as Attending Physician, Blaine Alonzo MD I agree with the assessment sp4 and plan of care. I reviewed the patient's care provided by the Advanced Practice Provider and agree with the diagnosis and treatment plan. Disposition Summary: 08/30/24 23:43 Discharge Ordered Notes: Location: Home sb4 Problem: an ongoing problem sb4 Symptoms: have improved sb4 Condition: Stable sb4 Diagnosis - Other pruritus sb4 - Anxiety disorder, unspecified sb4 - Bradycardia, unspecified sb4 Followup: sb4 - With: Demetri Dennis MD - When: 2 - 3 days - Reason: Further diagnostic work-up, Recheck today's complaints, Re-evaluation by your physician Discharge Instructions: - Discharge Summary Sheet sb4 - Bradycardia, Adult sb4 - Hives, [id number] sb4 - Managing Anxiety, Adult sb4 Forms: - Patient Portal Instructions sb4 - Leadership Thank You Letter sb4 Signatures: Dispatcher [employer] EDMS Cathleen Perez PA-C PA-C sb4 Blaine Alonzo MD MD sp4 Mildred Ochoa, RN RN me1 Lisset Mendes, RN RN kj2 Corrections: (The following items were deleted from the chart) 08/30 21:42 21:42 BASIC METABOLIC PANEL+C.LAB.BRZ ordered. EDMS EDMS 21:42 21:42 CBC+H.LAB.BRZ ordered. EDMS EDMS 21:42 21:42 Troponin High Sensitivity+C.LAB.BRZ ordered. EDMS EDMS 21:42 21:42 Chest Single View+RAD.RAD.BRZ ordered. EDMS EDMS
[2024-08-31 04:59] VITALS: O2SAT 100
[2024-08-31 05:02] VITALS: BP 118/68; TEMP 98
--- NOTE | 2024-09-01 14:14 | EKG ---
Test Date: 2024-08-30 Test Time: 23:31:42 Emotional Support Teacher: DIVYA MEASUREMENT RESULTS: Intervals: Rate: 36 CT: 188 QRSD: 136 QT: 462 QTc: 357 [place]: P: 50 CT: 188 QRS: -74 T: -20 INTERPRETIVE STATEMENTS: Marked sinus bradycardia Left axis deviation Nonspecific intraventricular block T wave abnormality, consider anterolateral ischemia Abnormal ECG Compared to ECG 05/31/2023 02:56:06 Left-axis deviation now present T-wave abnormality now present Possible ischemia now present Atrial flutter no longer present Left anterior fascicular block no longer present Electronically Signed On 09-01-24 14:12:05 VOCATIONAL SERVICES SPECIALIST by Demetri Dennis
== END 2024-08-31 00:09 | disposition home or self-care (01) ==
LOC: ER 21:12
DX: L29.89 Other pruritus (principal); F41.9 Anxiety disorder, unspecified; R00.1 Bradycardia, unspecified
CPT/HCPCS: 96361; 93005; 85025; 80048; 36415; 84484; 71045; 96375; 96374; 99284; J1200; J7030

== ENCOUNTER 2024-10-15 18:51 | Emergency (ER) | payer OTHER ==
[2024-10-15] MEDS ORDERED: ALBUTEROL 2.5 MG/3 ML NEB SOL ONE (19:16)
[2024-10-15] MEDS ORDERED: METHYLPREDNISOLONE 125 MG INJ ONE (19:16)
[2024-10-15] MEDS ORDERED: NA CHLORIDE 0.9% 1,000 ML ONE (19:17)
[2024-10-15] MEDS ORDERED: DIPHENHYDRAMINE 50 MG/ML VIAL ONE (19:17)
[2024-10-15] MEDS ORDERED: FAMOTIDINE 20 MG/2 ML VIAL IV ONE (19:17)
[2024-10-15] MEDS ORDERED: predniSONE 20 MG TAB ONE (19:17)
--- NOTE | 2024-10-15 19:39 | EDPHYS ---
Physician Documentation [facility] Name: Aimee Randolph Age: 44 yrs Sex: Female : 1980 Arrival Date: 10/15/2024 Time: 18:51 Bed 7 Private MD: ED Physician Timoteo Barney HPI: 10/15 19:34 This 44 yrs old Female presents to ER via Ambulatory with complaints of juliet Breathing Difficulty, Allergic Reaction. 19:34 The patient has shortness of breath at rest, with light activity. Onset: The juliet symptoms/episode began/occurred just prior to arrival, today. Duration: The symptoms are continuous, and are steadily getting worse. The patient's shortness of breath is aggravated by coughing, is alleviated by nothing. Associated signs and symptoms: Pertinent positives: non-productive cough, dizziness. Severity of symptoms: At their worst the symptoms were mild in the emergency department the symptoms are unchanged. The patient has not experienced similar symptoms in the past. Historical: - Allergies: 19:05 Ceclor; cm10 19:05 Levaquin; cm10 - PMHx: 19:05 iron low; Pre Diabetes; uterus polyp; cm10 - PSHx: 19:05 section; Cholecystectomy; heart surgery; cm10 - Immunization history:: Adult Immunizations up to date. - Infectious Disease History:: Denies. - Social history:: Smoking status: unknown. ROS: 19:34 Constitutional: Negative for fever, chills, and weight loss, Eyes: Negative for injury, juliet pain, redness, and discharge, ENT: Negative for injury, pain, and discharge, Neck: Negative for injury, pain, and swelling, Cardiovascular: Negative for chest pain, palpitations, and edema, Abdomen/GI: Negative for abdominal pain, nausea, vomiting, diarrhea, and constipation, Back: Negative for injury and pain, : Negative for injury, bleeding, discharge, and swelling, MS/Extremity: Negative for injury and deformity, Neuro: Negative for headache, weakness, numbness, tingling, and seizure, Psych: Negative for depression, anxiety, suicide ideation, homicidal ideation, and hallucinations, Allergy/Immunology: Negative for hives, rash, and allergies, Endocrine: Negative for neck swelling, polydipsia, polyuria, polyphagia, and marked weight changes, Hematologic/Lymphatic: Negative for swollen nodes, abnormal bleeding, and unusual bruising, 19:34 Respiratory: Positive for cough, shortness of breath, Exam: 19:34 Constitutional: This is a well developed, well nourished patient who is awake, alert, juliet and in no acute distress. Head/Face: Normocephalic, atraumatic. Eyes: Pupils equal round and reactive to light, extra-ocular motions intact. Lids and lashes normal. Conjunctiva and sclera are non-icteric and not injected. Cornea within normal limits. Periorbital areas with no swelling, redness, or edema. ENT: Nares patent. No nasal discharge, no septal abnormalities noted. Tympanic membranes are normal and external auditory canals are clear. Oropharynx with no redness, swelling, or masses, exudates, or evidence of obstruction, uvula midline. Mucous membranes moist. Neck: Trachea midline, no thyromegaly or masses palpated, and no cervical lymphadenopathy. Supple, full range of motion without nuchal rigidity, or vertebral point tenderness. No Meningismus. Chest/axilla: Normal chest wall appearance and motion. Nontender with no deformity. No lesions are appreciated. Cardiovascular: Regular rate and rhythm with a normal S1 and S2. No gallops, murmurs, or rubs. Normal PMI, no JVD. No pulse deficits. Respiratory: Lungs have equal breath sounds bilaterally, clear to auscultation and percussion. No rales, rhonchi or wheezes noted. No increased work of breathing, no retractions or nasal flaring. Abdomen/GI: Soft, non-tender, with normal bowel sounds. No distension or tympany. No guarding or rebound. No evidence of tenderness throughout. Back: No spinal tenderness. No costovertebral tenderness. Full range of motion. Skin: Warm, dry with normal turgor. Normal color with no rashes, no lesions, and no evidence of cellulitis. MS/ Extremity: Pulses equal, no cyanosis. Neurovascular intact. Full, normal range of motion., bilateral aka Neuro: Awake and alert, GCS 15, oriented to person, place, time, and situation. Cranial nerves II-XII grossly intact. Motor strength 5/5 in all extremities. Sensory grossly intact. Cerebellar exam normal. Normal gait. Psych: Awake, alert, with orientation to person, place and time. Behavior, mood, and affect are within normal limits. Vital Signs: 19:04 BP 156 / 81; Pulse 79; Resp 16; Temp 98.1; Pulse Ox 99% ; Weight 83.01 kg; Height 4 ft. cm10 11 in. ; Pain 0/10; 20:00 BP 139 / 60; Pulse 70; Resp 16; Pulse Ox 100% on R/A; jb4 21:00 BP 129 / 62; Pulse 66; Resp 16; Pulse Ox 98% on R/A; jb4 19:04 Body Mass Index 36.96 (83.01 kg, 149.86 cm) cm10 19:04 Pain Scale: Adult cm10 Raquel Coma Score: 19:34 Eye Response: spontaneous(4). Motor Response: obeys commands(6). Verbal Response: juliet oriented(5). Total: 15. MDM: 18:54 Medical Screening Exam initiated juliet 19:36 Differential diagnosis: anaphylaxis, angioedema, bronchospasm, Anemia Anxiety Reaction juliet asthma, non IgE mediated drug reaction Status Asthmaticus Vasovagal Reactions reactive airway disease. Antibiotic administration: Not indicated. Immunization status:. Data reviewed: vital signs, nurses notes, lab test result(s), CBC, electrolytes. I considered the following discharge prescriptions or medication management in the emergency department Medications were administered in the Emergency Department. See MAR. Test considered but Not performed: X-ray: no cxr. Historians other than the Patient: Spouse/Significant Other: spouse. Care significantly affected by the following chronic conditions: Diabetes, Obesity, anemia. Counseling: I had a detailed discussion with the patient and/or guardian regarding the historical points, exam findings, and any diagnostic results supporting the discharge/admit diagnosis, lab results, the need for outpatient follow up, for definitive care, a family practitioner. 10/15 18:55 Order name: CBC with Diff [facility] 10/15 18:55 Order name: Comprehensive Metabolic Panel; Complete Time: 20:35 [facility] 10/15 19:44 Order name: CT Stone Protocol [facility] 10/15 20:51 Order name: PO challenge; Complete Time: 20:57 [facility] Administered Medications: 19:34 Drug: predniSONE PO 60 mg PO once Route: PO; jb4 21:43 Follow up: Response: No adverse reaction; Marked relief of symptoms jb4 19:34 Drug: Famotidine IVP 40 mg IVP once; dilute with 10 mL 0.9% NaCl; give over 2 minutes jb4 Route: IVP; Site: right forearm; 21:42 Follow up: Response: No adverse reaction; Marked relief of symptoms jb4 19:34 Drug: diphenhydrAMINE IVP 50 mg IVP once Route: IVP; Site: right forearm; jb4 21:42 Follow up: Response: No adverse reaction; Marked relief of symptoms jb4 19:34 Drug: Albuterol Inhalation 5 mg Inhalation once Route: Inhalation; jb4 21:42 Follow up: Response: No adverse reaction; Marked relief of symptoms jb4 19:35 Drug: NS 0.9% IV 1000 ml IV at 1000 ml once; to be given as a bolus over 60 minutes jb4 Route: IV; Rate: 1000 ml; Site: right forearm; 21:43 Follow up: IV Status: pt discharge; IV Intake: 500ml jb4 19:35 Drug: MethylPrednisoLONE IVP 125 mg IVP once Route: IVP; Site: right forearm; jb4 21:43 Follow up: Response: No adverse reaction; Marked relief of symptoms jb4 19:53 Drug: Ondansetron IVP 4 mg IVP once; over 2 minutes Route: IVP; Site: right forearm; jb4 21:42 Follow up: Response: No adverse reaction; Marked relief of symptoms jb4 19:54 Drug: fentaNYL (PF) IVP 50 mcg IVP once Route: IVP; Site: right forearm; jb4 21:42 Follow up: Response: No adverse reaction; Marked relief of symptoms jb4 Disposition Summary: 10/15/24 19:39 Discharge Ordered Notes: Location: Home juliet Problem: new juliet Symptoms: have improved juliet Condition: Stable juliet Diagnosis - Other and unspecified allergy - IV IRON INFUSION juliet - Adverse effect of unspecified drugs, medicaments and biological substances juliet Followup: juliet - With: Private Physician - When: 2 - 3 days - Reason: Recheck today's complaints, Continuance of care, Re-evaluation by your physician Discharge Instructions: - Discharge Summary Sheet juliet - Drug Allergy, [id number] juliet - Drug Allergy juliet - Hives juliet - Hives, [id number] juliet Forms: - Medication Reconciliation Form juliet - Antibiotic Education juliet - Prescription Opioid Use juliet - Patient Portal Instructions juliet - Leadership Thank You Letter juliet Prescriptions: - EpiPen 0.3 mg/0.3 mL Injection Auto-Injector - administer 0.3 milliliter INTRAMUSCULAR route as directed as needed for juliet anaphylaxis; do not exceed 12 doses per 24 hrs; 2 unit; Refills: 0, Product Selection Permitted - Benadryl 25 mg Oral capsule - take 2 capsule ORAL route every 6 hours As needed; 36 tablet; Refills: 0, [facility] Product Selection Permitted - Pepcid 20 mg Oral tablet - take 1 tablet ORAL route every 12 hours for 21 days; 42 tablet; Refills: 0, [facility] Product Selection Permitted - Prednisone 20 mg Oral Tablet - take 2 tablets ORAL route once daily for 5 days; 10 tablet; Refills: 0, Product juliet Selection Permitted Signatures: Dispatcher [employer] Timoteo Kwong MD MD cha Bryson, James, RN RN jb4 Gavi Olivarez RN RN cm10
--- NOTE | 2024-10-15 19:39 | ER ---
Nurse's Notes [facility] Name: Aimee Randolph Age: 44 yrs Sex: Female : 1980 Arrival Date: 10/15/2024 Time: 18:51 Bed 7 Private MD: Diagnosis: Other and unspecified allergy-IV IRON INFUSION;Adverse effect of unspecified drugs, medicaments and biological substances Presentation: 10/15 19:04 Chief complaint: Patient states: Had iron infusion today. 30 minutes ago started having cm10 shortness of breath, numbness to her mouth and tingling to her tongue. Coronavirus screen: Client denies travel out of the [place] in the last 14 days. Ebola Screen: Patient denies travel to an Ebola-affected area in the 21 days before illness onset. Initial Sepsis Screen: Does the patient meet any 2 criteria? No. Patient's initial sepsis screen is negative. Does the patient have a suspected source of infection? No. Patient's initial sepsis screen is negative. Risk Assessment: Do you want to hurt yourself or someone else? Patient reports no desire to harm self or others. Onset of symptoms was October 15, 2024. 19:04 Method Of Arrival: Ambulatory cm10 19:04 Acuity: LAURITA 3 cm10 Historical: - Allergies: 19:05 Ceclor; cm10 19:05 Levaquin; cm10 - PMHx: 19:05 iron low; Pre Diabetes; uterus polyp; cm10 - PSHx: 19:05 section; Cholecystectomy; heart surgery; cm10 - Immunization history:: Adult Immunizations up to date. - Infectious Disease History:: Denies. - Social history:: Smoking status: unknown. Screenin:00 [facility] ED Fall Risk Assessment (Adult) History of falling in the last 3 months, jb4 including since admission No falls in past 3 months (0 pts) Confusion or Disorientation No (0 pts) Intoxicated or Sedated No (0 pts) Impaired Gait No (0 pts) Mobility Assist Device Used No (0 pt) Altered Elimination No (0 pt) Score/Fall Risk Level 0 - 2 = Low Risk Oriented to surroundings, Maintained a safe environment. Abuse screen: Denies threats or abuse. Nutritional screening: No deficits noted. Tuberculosis screening: No symptoms or risk factors identified. Assessment: 19:00 General: Appears in no apparent distress. uncomfortable, Behavior is calm, cooperative, jb4 appropriate for age. Pain: Denies pain. Neuro: Level of Consciousness is awake, alert, obeys commands, Oriented to person, place, time, situation. Cardiovascular: Patient's skin is warm and dry. Respiratory: Reports Chest tightness and tingling of the mouth and throat. Airway is patent Respiratory effort is even, unlabored, Respiratory pattern is regular, symmetrical. Derm: Skin is intact, Skin is pink, warm \T\ dry. 20:22 Reassessment: Patient appears in no apparent distress at this time. Patient and/or jb4 family updated on plan of care and expected duration. Pain level reassessed. Patient is alert, oriented x 3, equal unlabored respirations, skin warm/dry/pink. 21:39 Reassessment: Patient appears in no apparent distress at this time. Patient and/or jb4 family updated on plan of care and expected duration. Pain level reassessed. Patient is alert, oriented x 3, equal unlabored respirations, skin warm/dry/pink. Vital Signs: 19:04 BP 156 / 81; Pulse 79; Resp 16; Temp 98.1; Pulse Ox 99% ; Weight 83.01 kg; Height 4 ft. cm10 11 in. ; Pain 0/10; 20:00 BP 139 / 60; Pulse 70; Resp 16; Pulse Ox 100% on R/A; jb4 21:00 BP 129 / 62; Pulse 66; Resp 16; Pulse Ox 98% on R/A; jb4 19:04 Body Mass Index 36.96 (83.01 kg, 149.86 cm) cm10 19:04 Pain Scale: Adult cm10 Raquel Coma Score: 19:34 Eye Response: spontaneous(4). Motor Response: obeys commands(6). Verbal Response: juliet oriented(5). Total: 15. ED Course: 18:52 Patient arrived in ED. im 18:54 Timoteo Barney MD is Attending Physician. juliet 19:05 Triage completed. cm10 19:06 Arm band placed on right wrist. Patient placed in an exam room, on a stretcher, on cm10 pulse oximetry. 20:46 CT Stone Protocol In Process Unspecified. EDMS 21:41 No provider procedures requiring assistance completed. IV discontinued, intact, jb4 bleeding controlled, No redness/swelling at site. Pressure dressing applied. Administered Medications: 19:34 Drug: predniSONE PO 60 mg PO once Route: PO; jb4 21:43 Follow up: Response: No adverse reaction; Marked relief of symptoms jb4 19:34 Drug: Famotidine IVP 40 mg IVP once; dilute with 10 mL 0.9% NaCl; give over 2 minutes jb4 Route: IVP; Site: right forearm; 21:42 Follow up: Response: No adverse reaction; Marked relief of symptoms jb4 19:34 Drug: diphenhydrAMINE IVP 50 mg IVP once Route: IVP; Site: right forearm; jb4 21:42 Follow up: Response: No adverse reaction; Marked relief of symptoms jb4 19:34 Drug: Albuterol Inhalation 5 mg Inhalation once Route: Inhalation; jb4 21:42 Follow up: Response: No adverse reaction; Marked relief of symptoms jb4 19:35 Drug: NS 0.9% IV 1000 ml IV at 1000 ml once; to be given as a bolus over 60 minutes jb4 Route: IV; Rate: 1000 ml; Site: right forearm; 21:43 Follow up: IV Status: pt discharge; IV Intake: 500ml jb4 19:35 Drug: MethylPrednisoLONE IVP 125 mg IVP once Route: IVP; Site: right forearm; jb4 21:43 Follow up: Response: No adverse reaction; Marked relief of symptoms jb4 19:53 Drug: Ondansetron IVP 4 mg IVP once; over 2 minutes Route: IVP; Site: right forearm; jb4 21:42 Follow up: Response: No adverse reaction; Marked relief of symptoms jb4 19:54 Drug: fentaNYL (PF) IVP 50 mcg IVP once Route: IVP; Site: right forearm; jb4 21:42 Follow up: Response: No adverse reaction; Marked relief of symptoms jb4 Medication: 21:00 VIS not applicable for this client. jb4 Intake: 21:43 IV: 500ml; Total: 500ml. jb4 Outcome: 19:39 Discharge ordered by MD. chung 21:41 Discharged to home ambulatory, jb4 21:41 Condition: stable 21:41 Discharge instructions given to patient, Instructed on discharge instructions, follow up and referral plans. medication usage, Demonstrated understanding of instructions, follow-up care, medications, Prescriptions given X 4, 21:43 Patient left the ED. jb4 Signatures: Dispatcher [employer] Timoteo Kwong MD MD cha Bryson, James, RN RN jb4 Zulma Arrington Clarissa, RN RN cm10
[2024-10-15] MEDS ORDERED: ONDANSETRON 4 MG/2 ML VIAL ONE (19:48)
[2024-10-15] MEDS ORDERED: FENTANYL CITR 100 MCG/2 ML ONE (19:48)
[2024-10-15 20:06] LABS: Albumin 3.6 g/dL (3.4-5.0); Albumin/Globulin Ratio 1.1 (1.1-1.8); Alkaline Phosphatase 66 U/L (45-117); Anion Gap 8.6 mEq/L (5.0-15.0); BUN Blood Urea Nitrogen 14 mg/dL (7-18); Bicarbonate 18 mEq/L (21-32); Bilirubin Total 0.3 mg/dL (0.2-1.0); Globulin 3.4 g/dL (2.3-3.5); Glomerular Filtration Rate 78 ml/min (=/>90); Glucose Level 251 mg/dL (74-106); Sodium Level 139 mEq/L (136-145)
[2024-10-15 20:10] LABS: Absolute Lymphocytes (CBC) 0.3 K/uL (0.7-4.9); Absolute Neutrophil 6.6 K/uL (1.8-8.0); Basophils % 0.2 % (0-1.3); Hematocrit 33.7 % (36.0-45.0); Hemoglobin 11.1 g/dL (12.0-15.0); Lymphocytes % 4.5 % (15.3-44.8); MCH 25.3 pg (27.0-35.0); MCHC 32.8 g/dL (32.0-36.0); MCV 77.2 fL (80-100); MPV 9.1 fL (7.6-11.3); Monocytes % 0.3 % (3.3-12.3); Platelets 251 thou/uL (152-406); RBC Red Blood Cell Count 4.37 M/uL (3.86-4.86); Red Cell Distribution Width 18.2 % (12.1-15.2)
[2024-10-15 20:16] LABS: ALT/SGPT < 14 U/L (13-56); AST/SGOT < 10 U/L (15-37); Potassium 3.6 mEq/L (3.5-5.1)
--- NOTE | 2024-10-15 20:57 | RAD REPORT ---
EXAMINATION: Stone Protocol CLINICAL INDICATION: Abdominal pain TECHNIQUE: CT abdomen and pelvis was performed, without IV contrast, as per department protocol. Oral contrast not given. Axial, sagittal and coronal reconstructions were obtained. One or more of the following dose reduction techniques were used: Automated exposure control, adjustment of the mA and k V according to the patient size, and iterative reconstruction. Unless otherwise specified, incidental findings do not require dedicated imaging follow-up. COMPARISON: July 2024 FINDINGS: The lack of intravenous and oral contrast limits the sensitivity of this exam for evaluation of solid visceral organs, vascular structures, and bowel 1 mm calculus left kidney. No hydronephrosis. A right calculus is not No ureteral calculus. A bladder calculus not noted. No hydronephrosis Liver, spleen, pancreas and adrenals grossly normal Cholecystectomy. IUD within the uterine body. It has migrated inferiorly since prior exam. Fibroid uterus is present. No adnexal mass Normal appendix. No evidence of diverticulitis. IMPRESSION: Tiny nonobstructing left renal calculus. IUD within the uterine body has migrated inferiorly since the prior exam
[2024-10-15 22:26] LABS: Blood Morphology Comment NOT SEEN (NOT SEEN); Platelet Estimate ADEQ; White Blood Cell Scan OK (OK)
[2024-10-18 01:44] VITALS: BP 129/62; TEMP 98.1; O2SAT 98
== END 2024-10-15 21:43 | disposition home or self-care (01) ==
LOC: ER 18:51
DX: R06.02 Shortness of breath (principal); T45.4X5A Adverse effect of iron and its compounds, initial encounter; Z88.8 Allergy status to other drugs, medicaments and biological substances
CPT/HCPCS: 96361; 85025; 36415; 80053; 76377; 74176; 96375; 96374; 99285; J7512; J1200; J7613; J3010; J2919; J2405; J7030

== ENCOUNTER 2025-07-28 17:33 | Observation (INO) | payer OTHER ==
--- NOTE | 2025-07-28 18:36 | RAD REPORT ---
EXAM: Chest Single View HISTORY: 45 years Female CHEST PAIN COMPARISON: No prior exams FINDINGS: LUNGS/PLEURA: Low lung volumes accentuates the pulmonary vasculature. No definite acute process. CARDIAC/MEDIASTINUM: The cardiac silhouette is within normal limits. UPPER ABDOMEN: No significant abnormality. BONES: No acute abnormality. LINES/TUBES/OTHER: N/A IMPRESSION: No evidence of acute cardiopulmonary disease.
--- NOTE | 2025-07-28 18:41 | RAD REPORT ---
EXAMINATION: Head Brain Wo Cont CLINICAL INDICATION: Female, 45 years old.HEADACHE TECHNIQUE: Axial CT images from the skull base to the vertex without intravenous contrast. Coronal an d sagittal reformatted images were created from the data set. One or more of the following dose reduction techniques were used: Automated exposure control, adjustment of the mA and/or kV according to patient size, and/or iterative reconstruction. Unless otherwise specified, incidental findings do not require dedicated imaging follow-up. [id number]. COMPARISON: No prior exams FINDINGS: INTRACRANIAL: No acute intracranial hemorrhage. No acute large vascular territory infarct. No hydro cephalus. No mass effect or midline shift. No significant white matter disease. VASCULATURE: No visualized abnormalities in the arteries or dural venous sinuses. SCALP/SKULL: No calvarial fracture identified. No acute soft tissue abnormality. SINUSES: The visualized paranasal sinuses are mostly clear. No significant mastoid fluid. IMPRESSION: No acute intracranial abnormality.
[2025-07-28 18:44] LABS: Absolute Lymphocytes (CBC) 1.3 K/uL (0.7-4.9); Hematocrit 41.8 % (36.0-45.0); Hemoglobin 14.1 g/dL (12.0-15.0); MCH 29.6 pg (27.0-35.0); MCHC 33.8 g/dL (32.0-36.0); MCV 87.6 fL (80-100); MPV 7.9 fL (7.6-11.3); Nucleated RBC Absolute Count 0.0 (0-0); Nucleated Red Blood Cells % 0.1 % (0-0); RBC Red Blood Cell Count 4.77 M/uL (3.86-4.86); White Blood Count 7.30 thou/uL (4.3-10.9)
[2025-07-28 19:22] LABS: METHAMPHETAM NEGATIVE (NEGATIVE); THC Cannibis NEGATIVE (NEGATIVE)
[2025-07-28] MEDS ORDERED: KETOROLAC 30 MG/ML INJ ONE (19:38)
[2025-07-28] MEDS ORDERED: METOCLOPRAMIDE 10 MG/2mL INJ ONE (19:38)
[2025-07-28] MEDS ORDERED: DIPHENHYDRAMINE 50 MG/ML VIAL ONE (19:39)
[2025-07-28] MEDS ORDERED: NA CHLORIDE 0.9% 1,000 ML ONE (19:39)
[2025-07-28] MEDS ORDERED: NA CHLORIDE 0.9% 100 ML ONE (19:39)
[2025-07-28 19:40] LABS: PT Prothrombin Time 11.2 SECONDS (10-13.0); PTT, Activated Partial Thromb 29.6 SECONDS (27.2-37.4); Protime INR 0.99
[2025-07-28 19:50] LABS: ALT/SGPT 17 U/L (13-56); Albumin 3.8 g/dL (3.4-5.0); Albumin/Globulin Ratio 1.1 (1.1-1.8); Alkaline Phosphatase 76 U/L (45-117); Anion Gap 10.0 mEq/L (5.0-15.0); BUN Blood Urea Nitrogen 10 mg/dL (7-18); Globulin 3.6 g/dL (2.3-3.5); Glucose Level 98 mg/dL (74-106); Magnesium 2.3 mg/dL (1.6-2.4); Potassium 4.0 mEq/L (3.5-5.1); Troponin High Sensitivity 3.7 pg/mL (<58.9)
[2025-07-28 19:56] LABS: AST/SGOT < 10 U/L (15-37); Bilirubin Indirect, Calculated 0.4 mg/dL (0.2-0.8)
--- NOTE | 2025-07-28 20:25 | ER ---
Nurse's Notes [facility] Name: Aimee Randolph Age: 45 yrs Sex: Female : 1980 Arrival Date: 07/28/2025 Time: 17:33 Bed 13 Private MD: Diagnosis: Chest pain, unspecified;Dizziness and giddiness;Headache Presentation: 07/28 17:41 Chief complaint: Patient states: SIU, dizziness and left chest pain, right jaw pain that me1 started yesterday. Coronavirus screen: At this time, the client does not indicate any symptoms associated with coronavirus-19. Ebola Screen: No symptoms or risks identified at this time. Initial Sepsis Screen: Does the patient meet any 2 criteria? HR > 90 bpm. Does the patient have a suspected source of infection? No. Patient's initial sepsis screen is negative. Risk Assessment: Do you want to hurt yourself or someone else? Patient reports no desire to harm self or others. Onset of symptoms was July 27, 2025. 17:41 Method Of Arrival: Amb[place] [facility] [place] 17:41 Acuity: LAURITA 3 me1 SHOVELER: 17:41 LMP N/A - Irregular menses, Not me1 Historical: - Allergies: 17:43 Ceclor; me1 17:43 Levaquin; me1 - PMHx: 17:43 iron low; uterus polyp; Hypertensive disorder; Chronic back pain; me1 - PSHx: 17:43 section; Cholecystectomy; heart surgery; me1 - Immunization history:: Adult Immunizations up to date. - Infectious Disease History:: Denies. - Social history:: Smoking status: Reported history of juuling and/or vaping. Screenin:12 [facility] ED Fall Risk Assessment (Adult) History of falling in the last 3 months, kb4 including since admission No falls in past 3 months (0 pts) Confusion or Disorientation Yes (5 pts) Intoxicated or Sedated No (0 pts) Impaired Gait Yes (1 pt) Mobility Assist Device Used No (0 pt) Altered Elimination No (0 pt) Score/Fall Risk Level 3 or more points = High Risk Oriented to surroundings, Maintained a safe environment, Educated pt \T\ family on fall prevention, incl call for assistance when getting out of bed, Assessed \T\ reinforced patient's understanding of fall precautions, Provided non-skid footwear, Hourly rounding (assess needs \T\ fall precautionary measures) done, Used ambulatory aids as needed (educated on \T\ assisted with). Abuse screen: Denies threats or abuse. Denies injuries from another. Nutritional screening: No deficits noted. Tuberculosis screening: No symptoms or risk factors identified. Assessment: 18:07 Reassessment: unable to complete orthostatics due to pt dizziness. kb4 18:09 General: Appears in no apparent distress. comfortable, Behavior is calm, cooperative, kb4 drowsy, flat. Pain: Pain radiates to right jaw Pain began gradually, 1 day ago. Neuro: Level of Consciousness is obeys commands, confused, lethargic, Oriented to person, place, situation. Neuro: Oriented to unable to identify year . Cardiovascular: Patient's skin is warm and dry. Respiratory: Airway is patent Respiratory effort is even, unlabored, Respiratory pattern is regular, symmetrical. Derm: Skin is pink, warm \T\ dry. 19:15 General: Appears in no apparent distress. comfortable, well groomed, well developed, af3 Behavior is calm, cooperative, appropriate for age, drowsy, flat. Pain: Complains of pain in chest Pain currently is 8 out of 10 on a pain scale. 19:15 Neuro: Level of Consciousness is awake, alert, obeys commands, Oriented to person, af3 place, time, situation, Appropriate for age. Cardiovascular: Patient's skin is warm and dry. Respiratory: Airway is patent Respiratory effort is even, unlabored, Respiratory pattern is regular, symmetrical. Derm: Skin is intact, Skin is pink, warm \T\ dry. normal. 19:15 Reassessment: with shift report, notified an attempt of orthostatics was done, on af3 attempt from sitting to standing pt c/o dizziness, orthostatic positive, provider notified. 20:39 Reassessment: Patient appears in no apparent distress at this time. Patient and/or af3 family updated on plan of care and expected duration. Pain level reassessed. Patient is alert, oriented x 3, equal unlabored respirations, skin warm/dry/pink. 22:10 Reassessment: Patient appears in no apparent distress at this time. Patient and/or af3 family updated on plan of care and expected duration. Pain level reassessed. Patient is alert, oriented x 3, equal unlabored respirations, skin warm/dry/pink. Vital Signs: 17:41 BP 179 / 97; Pulse 64; Resp 18; Temp 98; Pulse Ox 100% ; Weight 83.91 kg; Height 4 ft. me1 11 in. ; Pain 10/10; 18:05 BP 170 / 86 Supine; Pulse 60; Resp 14; Pulse Ox 95% on R/A; kb4 18:08 BP 189 / 92 Sitting; Pulse 61; Resp 16; Pulse Ox 95% on R/A; kb4 19:54 BP 170 / 87; Pulse 49; Resp 16; Pulse Ox 95% on R/A; af3 20:38 BP 172 / 87; Pulse 42; Resp 16; Pulse Ox 96% on R/A; af3 22:10 BP 139 / 78; Pulse 51; Resp 20; Pulse Ox 98% on R/A; af3 23:11 BP 131 / 72; Pulse 52; Resp 18; Pulse Ox 100% on R/A; af3 17:41 Body Mass Index 37.36 (83.91 kg, 149.86 cm) me1 17:41 Pain Scale: Adult nm1 ED Course: 17:36 Patient arrived in ED. mr 17:36 [facility]C [facility] kb 17:36 Jose Maria Han MD is Attending Physician. kb 17:41 Arm band placed on Patient placed in an exam room. me1 17:43 Triage completed. me1 17:46 Shivani Mack, RN is Primary Nurse. kb4 18:12 Patient has correct armband on for positive identification. Bed in low position. Call kb4 light in reach. Side rails up X2. Client placed on continuous cardiac and pulse oximetry monitoring. NIBP monitoring applied. ekg monitor tech on. 18:12 EKG done, by ED staff, reviewed by Sherri GALINDO. Missed attempt(s): 20 gauge kb4 in left antecubital area. 18:12 No provider procedures requiring assistance completed. Patient maintains SpO2 kb4 saturation greater than 95% on room air. 18:18 Chest Single View XRAY In Process Unspecified. EDMS 18:22 CT Head Brain wo Cont In Process Unspecified. EDMS 18:40 Initial lab(s) drawn, by dental laboratory assistant, sent to lab. ts3 19:15 Provided Education on: plan of care . af3 19:20 Missed attempt(s): 20 gauge in right wrist. af3 19:30 Missed attempt(s): 20 gauge in right antecubital area. af3 19:40 Missed attempt(s): 20 gauge in right antecubital area. Bleeding controlled, band aid al5 applied, catheter tip intact. 19:48 Inserted saline lock: 20 gauge in right forearm, using aseptic technique. ,using al5 aseptic technique. done by ROULA Marsh Blood collected. Flushed with 10 mL NS. 20:25 Kalina Longoria MD is Hospitalizing Provider. kb 23:12 Patient admitted, IV remains in place. af3 Administered Medications: 20:05 Drug: Decadron - Dexamethasone IVP 10 mg IVP once Route: IVP; Site: right forearm; af3 22:13 Follow up: Response: No adverse reaction af3 20:06 Drug: Ketorolac IVP 15 mg IVP once Route: IVP; Site: right forearm; af3 22:13 Follow up: Response: No adverse reaction af3 20:06 Drug: metoCLOPramide IVP 10 mg IVP once; over 1 to 2 minutes Route: IVP; Site: right af3 forearm; 22:13 Follow up: Response: No adverse reaction af3 20:06 Drug: diphenhydrAMINE IVP 12.5 mg IVP once Route: IVP; Site: right forearm; af3 22:13 Follow up: Response: No adverse reaction af3 20:32 Drug: NS 0.9% IV 1000 ml IV at 1000 ml once; to be given as a bolus over 60 minutes af3 Route: IV; Rate: 1000 ml; Site: right forearm; 22:13 Follow up: Response: No adverse reaction; IV Status: Completed infusion; IV Intake: af3 1000ml 20:54 Drug: Aspirin PO Chewable Tablet 324 mg PO once; 81 mg tablets x 4 Route: PO; af3 22:12 Follow up: Response: No adverse reaction af3 Medication: 19:15 VIS not applicable for this client. af3 Intake: 22:13 IV: 1000ml; Total: 1000ml. af3 Outcome: 20:25 Decision to Hospitalize by Provider. kb 23:11 Admitted to Med/surg accompanied by tech, via stretcher, room 416, on monitor, with af3 chart, 23:11 Condition: stable 23:11 Instructed on the need for admit, 23:12 Patient left the ED. af3 Signatures: Dispatcher [employer] EDSherri Amezquita, METAL EXPEDITER-C METAL EXPEDITER-Brandi Clay, Reg Reg mr Moe Ochoaelle, RN RN me1 Osiris Lew, ROULA RN al5 Kiersten Duran RN RN af3 Shivani Mack RN RN kb4 Zuleyka Renee ts3 Corrections: (The following items were deleted from the chart) 17:44 17:43 PMHx: Pre Diabetes; me1 me1 17:45 17:41 BP 179 / 100; Pulse 64bpm; Resp 18bpm; Pulse Ox 100%; Temp 98F; 83.91 kg; Height me1 4 ft. 11 in.; BMI: 37.3; Pain 10/, Adult; me1
--- NOTE | 2025-07-28 20:25 | EDPHYS ---
Physician Documentation [facility] Name: Aimee Randolph Age: 45 yrs Sex: Female : 1980 Arrival Date: 07/28/2025 Time: 17:33 Bed 13 Private MD: ED Physician Jose Maria Han HPI: 07/28 17:37 This 45 yrs old Female presents to ER via Unassigned with complaints of Chest kb Pain. 20:45 Patient is a 45-year-old female who presents for left-sided chest pain, headache and kb dizziness that started 2 weeks ago and got worse over the last 3 days. States she decided to come in today because the symptoms have been progressively getting worse.. 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 - Infectious Disease History:: Denies. - Social history:: Smoking status: Reported history of juuling and/or vaping. ROS: 20:43 Constitutional: As per HPI kb Exam: 18:07 ECG was reviewed by the Attending Physician. kb 20:43 Constitutional: This is a well developed, well nourished patient who is awake, alert, kb and in no acute distress. Head/Face: Normocephalic, atraumatic. Eyes: Pupils equal round and reactive to light, extra-ocular motions intact. Lids and lashes normal. Conjunctiva and sclera are non-icteric and not injected. Cornea within normal limits. Periorbital areas with no swelling, redness, or edema. ENT: Moist Mucous membranes Cardiovascular: Regular rate Respiratory: Respirations even and unlabored. No increased work of breathing. Talking in full sentences Abdomen/GI: Soft, non-tender. No distention Skin: Warm, dry with normal turgor. Normal color. MS/ Extremity: Pulses equal, no cyanosis. Neurovascular intact. Full, normal range of motion. Neuro: Awake and alert, GCS 15, oriented to person, place, time, and situation. 20:43 Neuro: Gait: is unsteady, Vital Signs: 17:41 BP 179 / 97; Pulse 64; Resp 18; Temp 98; Pulse Ox 100% ; Weight 83.91 kg; Height 4 ft. me1 11 in. ; Pain 10/10; 18:05 BP 170 / 86 Supine; Pulse 60; Resp 14; Pulse Ox 95% on R/A; kb4 18:08 BP 189 / 92 Sitting; Pulse 61; Resp 16; Pulse Ox 95% on R/A; kb4 19:54 BP 170 / 87; Pulse 49; Resp 16; Pulse Ox 95% on R/A; af3 20:38 BP 172 / 87; Pulse 42; Resp 16; Pulse Ox 96% on R/A; af3 22:10 BP 139 / 78; Pulse 51; Resp 20; Pulse Ox 98% on R/A; af3 23:11 BP 131 / 72; Pulse 52; Resp 18; Pulse Ox 100% on R/A; af3 17:41 Body Mass Index 37.36 (83.91 kg, 149.86 cm) me1 17:41 Pain Scale: Adult me1 MDM: 17:38 Medical Screening Exam initiated kb 20:42 The patient was given aspirin in the Emergency Department. Data reviewed: vital signs, kb nurses notes. 20:44 Differential diagnosis: abnormal EKG, acute myocardial infarction, coronary artery kb disease vertigo, dehydration, CVA. Consideration of Admission/Observation Patient was admitted/placed on observation. Escalation of care including admission/observation considered. Management of patient was discussed with the following: Hospitalist: CHRISTIANA Brownlee accepts pt for admission, wants cardiology and neurologist consulted. Refractory Specialist: Dr Coffman accepts pt for consult. Dr Aguilar accepts pt for consult and recommends MRI in AM. Counseling: I had a detailed discussion with the patient and/or guardian regarding the historical points, exam findings, and any diagnostic results supporting the discharge/admit diagnosis, lab results, radiology results, the need for further work-up and treatment in the hospital. 07/28 17:46 Order name: Basic Metabolic Panel; Complete Time: 19:57 kb 07/28 17:46 Order name: CBC with Diff; Complete Time: 18:49 kb 07/28 17:46 Order name: Hepatic Function; Complete Time: 19:57 kb 07/28 17:46 Order name: Magnesium; Complete Time: 19:57 kb 07/28 17:46 Order name: Protime (+inr); Complete Time: 19:56 kb 07/28 17:46 Order name: Ptt, Activated; Complete Time: 19:56 kb 07/28 17:46 Order name: Troponin High Sensitivity; Complete Time: 19:57 kb 07/28 17:46 Order name: UDS; Complete Time: 19:26 kb 07/28 21:42 Order name: Basic Metabolic Panel EDMS 07/28 21:42 Order name: Basic Metabolic Panel EDMS 07/28 21:42 Order name: Basic Metabolic Panel EDMS 07/28 21:42 Order name: CBC with Automated Diff EDMS 07/28 21:42 Order name: CBC with Automated Diff EDMS 07/28 21:42 Order name: CBC with Automated Diff EDMS 07/28 21:42 Order name: Troponin High Sensitivity EDMS 07/28 21:42 Order name: Troponin High Sensitivity EDMS 07/28 21:42 Order name: Troponin High Sensitivity EDMS 07/28 21:42 Order name: Troponin High Sensitivity EDMS 07/28 21:42 Order name: Troponin High Sensitivity EDMS 07/28 17:46 Order name: CT Head Brain wo Cont; Complete Time: 18:43 kb 07/28 17:46 Order name: Chest Single View XRAY; Complete Time: 18:43 kb 07/28 21:42 Order name: Echo with Doppler EDMS 07/28 21:47 Order name: Brain With Cont EDMS 07/28 21:47 Order name: Brain With Cont EDMS 07/28 17:37 Order name: EKG; Complete Time: 17:38 kb 07/28 21:42 Order name: EKG Electrocardiogram EDMS 07/28 21:42 Order name: EKG Electrocardiogram EDMS 07/28 21:42 Order name: EKG Electrocardiogram EDMS 07/28 21:42 Order name: EKG Electrocardiogram EDMS 07/28 17:37 Order name: EKG - Nurse/Tech; Complete Time: 18:20 kb 07/28 17:46 Order name: Cardiac monitoring; Complete Time: 18:07 kb 07/28 17:46 Order name: IV Saline Lock; Complete Time: 19:54 kb 07/28 17:46 Order name: Labs collected and sent; Complete Time: 18:40 kb 07/28 17:46 Order name: NPO; Complete Time: 18:07 kb 07/28 17:46 Order name: O2 Per Protocol; Complete Time: 18:07 kb 07/28 17:46 Order name: O2 Sat Monitoring; Complete Time: 18:07 kb 07/28 17:46 Order name: Orthostatics; Complete Time: 22:20 kb 07/28 18:48 Order name: Labs - recollect needed: recollect green top; Complete Time: 19:54 bd EC:07 Rate is 52 beats/min. Rhythm is regular. QRS State Line is Normal. IA interval is normal at kb 186 msec. QRS interval is normal at 134 msec. QT interval is normal at 396 msec. Administered Medications: 20:05 Drug: Decadron - Dexamethasone IVP 10 mg IVP once Route: IVP; Site: right forearm; af3 22:13 Follow up: Response: No adverse reaction af3 20:06 Drug: Ketorolac IVP 15 mg IVP once Route: IVP; Site: right forearm; af3 22:13 Follow up: Response: No adverse reaction af3 20:06 Drug: metoCLOPramide IVP 10 mg IVP once; over 1 to 2 minutes Route: IVP; Site: right af3 forearm; 22:13 Follow up: Response: No adverse reaction af3 20:06 Drug: diphenhydrAMINE IVP 12.5 mg IVP once Route: IVP; Site: right forearm; af3 22:13 Follow up: Response: No adverse reaction af3 20:32 Drug: NS 0.9% IV 1000 ml IV at 1000 ml once; to be given as a bolus over 60 minutes af3 Route: IV; Rate: 1000 ml; Site: right forearm; 22:13 Follow up: Response: No adverse reaction; IV Status: Completed infusion; IV Intake: af3 1000ml 20:54 Drug: Aspirin PO Chewable Tablet 324 mg PO once; 81 mg tablets x 4 Route: PO; af3 22:12 Follow up: Response: No adverse reaction af3 Disposition Summary: 07/28/25 20:25 Hospitalization Ordered Notes: Hospitalization Status: Observation kb Provider: Kalina Longoria Location: Telemetry/MedSur (observation) kb Condition: Stable kb Problem: new kb Symptoms: are unchanged kb Bed/Room Type: Standard Room Assignment: 416(07/28/25 22:04) [facility] Diagnosis - Chest pain, unspecified kb - Dizziness and giddiness kb - Headache kb Forms: - Medication Reconciliation Form kb - SBAR form kb - Leadership Thank You Letter kb Signatures: Dispatcher [employer] EDMS Sherri García, ENTERPRISE INTEGRATION DEVELOPER-C ENTERPRISE INTEGRATION DEVELOPER-Lauren Cunningham Michelle, RN RN me1 Sakina Doran [facility] Kiersten Duran RN RN af3 Corrections: (The following items were deleted from the chart) 17:44 17:43 PMHx: Pre Diabetes; nd1 nd1 17:46 17:46 Head Brain Wo Cont+CT.RAD.BRZ ordered. EDCT EDMS 17:46 17:46 Chest Single View+RAD.RAD.BRZ ordered. EDCT EDMS 21:55 20:25 kb km 22:04 21:55 420 kmf [facility]
[2025-07-28] MEDS ORDERED: ASPIRIN 81 MG CHEWABLE TABLET ONE (20:49)
[2025-07-28] MEDS ORDERED: NITROGLYCERIN 0.4 MG/TAB SL PRN (21:36)
[2025-07-28] MEDS ORDERED: MORPHINE 4 MG/ML SYR IV PRN (21:36)
[2025-07-28] MEDS: ASPIRIN 325 MG TAB PO ONE (21:36)
--- NOTE | 2025-07-28 21:41 | P.HP ---
Certification for Inpatient Patient admitted to: Observation With expected LOS: <2 Midnights Patient will require the following post-hospital care: None Practitioner: I am a practitioner with admitting privileges, knowledge of patient current condition, hospital course, and medical plan of care. Services: Services provided to patient in accordance with Admission requirements found in Title 42 Section 412.3 of the Code of Federal Regulations Patient History Date of Service: 07/28/25 Reason for admission: Chest pain and near syncope. 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 Patient presents to the ER today complaining of severe left sided chest pain radiating to her left shoulder, left upper back, and right jaw, and near syncope, with no associated shortness of breath. Patient states she has been having chest pain for the past week, states yesterday and today her chest pain progressively worsening . States her chest pain today was severe and radiate to her left shoulder, left upper back, right jaw, and numbness to her right arm. Patient describes her chest pain as sharp, aching, and constant with initial pain scale of 8/10. On admission assessment, patient was fully awake, alert and oriented x 3, states her chest pain is much relieved after receiving pain medication in ER, denies of any associated shortness of breath, nausea or vomiting, headaches, blurred vision, tinnitus, abdominal pain. Patient initial troponin negative, EKG with no ST elevation. Course in ER. (1) CT head. Impression: No acute intracranial abnormality. (2) chest x-ray. Impression: No evidence of acute cardiopulmonary disease. Allergies cefaclor [From [facility]] Allergy (Mild, Verified 01/14/18 22:07) Shortness of breath Home Medications: Norethindrone 0.35 mg PO DAILY 01/14/18 Docusate [Colace Cap*] 100 mg PO BID #60 cap 01/17/18 Fluticasone [Flonase 50MCG Nasal [place]*] 1 sprays AVELINO BID #1 btl 01/17/18 Lorata/Pseudoeph 12Hr [Claritin-D 12 Hour*] 1 tab PO DAILY #30 tab 01/17/18 Sulfamethoxazole/Trimethoprim [Bactrim Ds Tablet] 1 each PO BID 7 Days #14 tablet 01/18/18 Meloxicam 7.5 mg PO DAILYPRN PRN 07/28/25 lisinopriL [Lisinopril] 10 mg PO BEDTIME 07/28/25 - Past Medical/Surgical History Diabetic: No -: Essential hypertension. -: Aortic valve defect from . -: Heart Surgery 1985 -: Ava 2006 -: - Family History Father -: Heart disease, Hypertension, Diabetes Mother -: Heart disease, Hypertension, Diabetes - Social History Smoking Status: Never smoker Alcohol use: No CD- Drugs: No Caffeine use: Yes Place of Residence: Home Review of Systems 10-point ROS is otherwise unremarkable General: Other (Near syncope.) Cardiovascular: Chest Pain Physical Examination - Physical Exam General: Alert, In no apparent distress, Oriented x3, Cooperative HEENT: Atraumatic, Normocephalic, PERRLA, Mucous membr. moist/pink Neck: Supple, 2+ carotid pulse no bruit, JVD not distended, No Thyromegaly, No LAD, Without JVD or thyroid abnormality Respiratory: Clear to auscultation bilaterally, Normal air movement Cardiovascular: No edema, Normal pulses, Regular rate/rhythm, Normal S1 S2, No gallops, No rubs, No murmurs Capillary refill: <2 Seconds Gastrointestinal: Normal bowel sounds, Soft and benign, Non-distended, W/out hepatomegaly, No ascites, No tenderness, No masses, No rebound, No guarding Musculoskeletal: No clubbing, No swelling, No contractures, No erythema, No tenderness, No warmth Integumentary: No rashes, No breakdown, No significant lesion, No tenderness/swelling, No erythema, No warmth, No cyanosis Neurological: Normal gait, Normal speech, Normal strength at 5/5 x4 extr, Normal tone, Sensation intact, Cranial nerves 3-12 intact, Normal reflexes 2+, Normal affect Lymphatics: No axilla or inguinal lymphadenopathy - Studies Laboratory Data (last 24 hrs) 07/28/25 07/28/25 07/28/25 19:22 19:22 18:35 WBC 7.30 Hgb 14.1 Hct 41.8 Plt Count 216 PT 11.2 INR 0.99 APTT 29.6 Sodium 140 Potassium 4.0 BUN 10 Creatinine 0.69 Glucose 98 Magnesium 2.3 Total Bilirubin 0.6 AST < 10 L ALT 17 Alkaline Phosphatase 76 Female Exam - Breasts Breasts: Normal configuration, Normal contours, Symmetrical Assessment and Plan - Plan Patient presents to ER complaining of worsening chest pain with associated dizziness (near syncope), with no associated shortness of breath. Assessment/ Plan (1)Chest pain/ Near syncope. -Order MRI head/brain in AM requested by Dr. Aguilar. -Consult diesel maintenance electrician. -Order echocardiogram. -Serial troponin and monitor for trending. -EKG Q 8 hours x 3. -Morphine 4 mg as needed every 4 hours. -Nitro 0.4 mg sublingual as needed Q5 minutes x 3. -Consult neurologist Dr. Aguilar. -Telemetry monitoring.- -Order aspirin 325 mg p.o. x 1 followed daily dose of aspirin 81 mg. (2)Chronic essential hypertension. -Continue home medication when reconciled. Patient cannot remember buy the medication that she takes at this time. -Hydralazine 10 mg IV as needed every 6 hours for systolic 160 or greater and diastolic 90 or greater. (3) DVT prophylaxis. -Lovenox 40 mg subcu daily. (4)Explained the entire treatment plan to the patient, solicited questions answered and voiced understanding. Discharge Plan: Home Plan to discharge in: 48 Hours - Advance Directives Does patient have a Living Will: No Does patient have a Durable POA for Healthcare: No - Code Status/Comfort Care Code Status Assessed: Yes Code Status: Full Code Critical Care: No Time Spent Managing Pts Care (In Minutes): 55
[2025-07-28] MEDS ORDERED: HYDRALAZINE HCL 20 MG/ML VIAL IV PRN (21:45)
[2025-07-28 23:38] VITALS: BMI 37.1
[2025-07-29] MEDS: ACETAMINOPHEN 325 MG TABLET PO PRN (01:12)
[2025-07-29 07:23] LABS: Anion Gap 10.5 mEq/L (5.0-15.0); BUN Blood Urea Nitrogen 11.0 mg/dL (7-18); Glucose Level 126.0 mg/dL (74-106); Potassium 4.5 mEq/L (3.5-5.1); Troponin High Sensitivity 3.4 pg/mL (<58.9)
[2025-07-29 08:00] LABS: Absolute Lymphocytes (CBC) 0.7 K/uL (0.7-4.9); Hematocrit 40.4 % (36.0-45.0); Hemoglobin 13.7 g/dL (12.0-15.0); MCH 29.7 pg (27.0-35.0); MCHC 34.0 g/dL (32.0-36.0); MCV 87.4 fL (80-100); MPV 7.5 fL (7.6-11.3); Nucleated RBC Absolute Count 0.0 (0-0); Nucleated Red Blood Cells % 0.0 % (0-0); RBC Red Blood Cell Count 4.62 M/uL (3.86-4.86); White Blood Count 5.10 thou/uL (4.3-10.9)
[2025-07-29] MEDS: ENOXAPARIN 40 MG/0.4 ML SQ SCH (10:15)
[2025-07-29] MEDS: ASPIRIN EC 81 MG TAB PO SCH (10:15)
--- NOTE | 2025-07-29 11:54 | P.CNS ---
Date of Consult: 07/29/25 Chief Complaint: Chest pain and near syncope. History of Present Illness: Patient with PMH of congenital cardiac septal defects s/p repair, denies any valve replacement, presented with dizziness, and lot of pain symptoms, chest, head, right eye, non specific, report has been having lot of dizziness recently but no passing out, denies breathing problems. Allergies cefaclor [From [facility]] Allergy (Mild, Verified 01/14/18 22:07) Shortness of breath Home medications list reviewed: Yes Home Medications: Norethindrone 0.35 mg PO DAILY 01/14/18 Docusate [Colace Cap*] 100 mg PO BID #60 cap 01/17/18 Fluticasone [Flonase 50MCG Nasal [place]*] 1 sprays AVELINO BID #1 btl 01/17/18 Lorata/Pseudoeph 12Hr [Claritin-D 12 Hour*] 1 tab PO DAILY #30 tab 01/17/18 Sulfamethoxazole/Trimethoprim [Bactrim Ds Tablet] 1 each PO BID 7 Days #14 tablet 01/18/18 Meloxicam 7.5 mg PO DAILYPRN PRN 07/28/25 lisinopriL [Lisinopril] 10 mg PO BEDTIME 07/28/25 - Past Medical/Surgical History Diabetic: No -: Essential hypertension. -: Aortic valve defect from . -: Heart Surgery 1985 -: Ava 2006 -: - Family History Father Medical History: Heart disease, Hypertension, Diabetes Mother Medical History: Heart disease, Hypertension, Diabetes - Social History Smoking Status: Unknown if ever smoked Alcohol use: No CD- Drugs: No Caffeine use: Yes Place of Residence: Home Review of Systems 10-point ROS is otherwise unremarkable Physical Examination Temp Pulse Resp BP Pulse Ox 97.5 F 65 18 136/71 99 07/29/25 08:00 07/29/25 08:00 07/29/25 08:00 07/29/25 08:00 07/29/25 08:00 General: Alert, In no apparent distress HEENT: Atraumatic, PERRLA, Mucous membr. moist/pink, EOMI, Sclerae nonicteric Neck: Supple, 2+ carotid pulse no bruit, No LAD, Without JVD or thyroid abnormality Respiratory: Clear to auscultation bilaterally, Normal air movement Cardiovascular: Regular rate/rhythm, Normal S1 S2 Gastrointestinal: Normal bowel sounds, No tenderness Musculoskeletal: No tenderness Integumentary: No rashes Neurological: Normal gait, Normal speech, Normal tone, Normal affect Lymphatics: No axilla or inguinal lymphadenopathy Laboratory Data (last 24 hrs) 07/28/25 07/28/25 07/28/25 19:22 19:22 18:35 WBC 7.30 Hgb 14.1 Hct 41.8 Plt Count 216 PT 11.2 INR 0.99 APTT 29.6 Sodium 140 Potassium 4.0 BUN 10 Creatinine 0.69 Glucose 98 Magnesium 2.3 Total Bilirubin 0.6 AST < 10 L ALT 17 Alkaline Phosphatase 76 - Problems (1) Dizziness Current Visit: Yes Status: Acute Plan: tele did not show any arrhythmia advised patient that she will need to follow up with her dining 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
[2025-07-29] MEDS ORDERED: MORPHINE 2 MG/ML SYR IV PRN (12:57)
--- NOTE | 2025-07-29 15:55 | RAD REPORT ---
EXAMINATION: MRI BRAIN WITHOUT CONTRAST CLINICAL INDICATION: Syncope TECHNIQUE: Multiplanar multisequence MR images of the brain were obtained without intravenous contras t. Unless otherwise specified, incidental findings do not require dedicated imaging follow-up. COMPARISON: July 28, 2025. FINDINGS: Mild to moderate abnormal signal within periventricular, deep and subcortical white matter probably i schemic changes secondary to small vessel disease. Diffusion weighted/ADC mapping does not demonstrate evidence of an acute infarction. Ventricles are normal caliber. No extra-axial fluid collection. No fluid within the sinuses/mastoid seen IMPRESSION: No acute intracranial abnormalities displayed
[2025-07-29 21:15] VITALS: O2SAT 96
[2025-07-30 04:33] LABS: Absolute Lymphocytes (CBC) 2.2 K/uL (0.7-4.9); Hematocrit 37.4 % (36.0-45.0); Hemoglobin 12.5 g/dL (12.0-15.0); MCH 29.5 pg (27.0-35.0); MCHC 33.5 g/dL (32.0-36.0); MCV 88.1 fL (80-100); MPV 8.1 fL (7.6-11.3); Nucleated RBC Absolute Count 0.0 (0-0); Nucleated Red Blood Cells % 0.0 % (0-0); RBC Red Blood Cell Count 4.24 M/uL (3.86-4.86); White Blood Count 6.50 thou/uL (4.3-10.9)
[2025-07-30 04:50] LABS: Anion Gap 7.8 mEq/L (5.0-15.0); BUN Blood Urea Nitrogen 17.0 mg/dL (7-18); Glucose Level 107.0 mg/dL (74-106); Potassium 3.8 mEq/L (3.5-5.1)
[2025-07-30 09:06] VITALS: BP 146/75; TEMP 97.7
[2025-07-30 09:33] LABS: Thyroid Stimulating Hormone 2.63 uIU/mL (0.358-3.740)
== END 2025-07-30 09:32 | disposition home or self-care (01) ==
LOC: ER 17:33 → ERHOLD 21:31 → 4TH 22:06
PROVIDERS: ADMIT Hospitalist; ATTEND Hospitalist
DX: R07.9 Chest pain, unspecified (principal); R55 Syncope and collapse; I10 Essential (primary) hypertension; Z86.79 Personal history of other diseases of the circulatory system; R42 Dizziness and giddiness; R51.9 Headache, unspecified; F17.290 Nicotine dependence, other tobacco product, uncomplicated
CPT/HCPCS: 96361; 93005; 93306; 85025 ×3; 80048 ×3; 36415 ×2; 83735; 85610; 80076; 85730; 84443; 84484 ×3; 84439; 80307; 70450; 71045; 70551; 96375; 96374; 99285; J1885; J2765; J1200; J1650 ×2; J1100; J7030; G0378